=== PATIENT | female | born 1950 | race Caucasian/White ===

== ENCOUNTER → 2018-04-02 07:02 | Outpatient (CLI) | payer OTHER, SELFPAY ==
--- NOTE | 2018-04-02 07:05 | BI_ITS ---
MAMMOGRAPHY - BILATERAL SCREENING REASON FOR EXAM: Female, 67 years old. Routine annual screening examination. PERTINENT HISTORY: Non-contributory. Remote left stereotactic breast biopsy. TECHNIQUE: Digital bilateral breast minh (3D mammographic acquisition) in the CC and MLO projections. 2-D mediolateral oblique (MLO) and craniocaudad (CC) views of both breasts were obtained. CAD: Full Field Digital Mammography with Computer Added Detection was performed. COMPARISON: Comparison is made with prior axial examination dated February 06, 2017. FINDINGS: Breast Composition: There are scattered areas of fibroglandular density. There are no dominant masses or suspicious calcifications. No other significant abnormalities are identified. There has been no significant change since the prior study. BI/SCREENING MAMM (CAD), BILAT IMPRESSION: Stable bilateral screening mammogram. Yearly follow-up mammogram recommended. (A) ASSESSMENT CATEGORY: BIRADS Category 1: Negative. A letter regarding these results will be sent to the patient by the facility within 30 days. Approximately 10% of breast cancers are not detected by mammography. A normal mammogram should not delay biopsy of a clinically suspicious abnormality. [id number] Electronically Signed: Piter Condon MD at 8:49 EDT Tel [phone], Service support ,
== END ==
PROVIDERS: Family Provider Internal Medicine; PCP Internal Medicine; Visit Provider Nurse Practitioner Women's Health
DX: Z12.31 Encounter for screening mammogram for malignant neoplasm of breast (principal)
CPT/HCPCS: 77063; 77067

== ENCOUNTER → 2019-04-27 07:15 | Outpatient (CLI) | payer MEDICARE, SELFPAY ==
--- NOTE | 2019-04-27 07:23 | BI_ITS ---
MAMMOGRAPHY - BILATERAL SCREENING 3-D TOMOSYNTHESIS REASON FOR EXAM: Female, 69 years old. Bilateral Screening 3-D tomosynthesis PERTINENT HISTORY: History of stereotactic biopsies. TECHNIQUE: 2-D mammograms and 3-D Tomosynthesis of the breast (s) were performed. CAD was performed. COMPARISON: 04/02/2018 FINDINGS: The breast composition is composed of scattered fibroglandular density. Scattered benign calcifications are seen. No dense spiculated masses or suspicious microcalcifications are identified. No architectural distortion is identified. There is no skin thickening or retraction. There has been no significant change since the prior study. BI/SCREEN MAMM (CAD) W/CHIQUI BILAT IMPRESSION: No mammographic signs of malignancy. Routine yearly mammograms recommended. ASSESSMENT CATEGORY: BIRADS Category 1: Negative. A letter regarding these results will be sent to the patient by the facility within 30 days. FOLLOW UP RECOMMENDATION: Yearly follow up mammogram recommended. (A) Approximately 10% of breast cancers are not detected by mammography. A normal mammogram should not delay biopsy of a clinically suspicious abnormality. Electronically Signed: Gregorio Dill MD at 8:21 EDT , Service support ,
== END ==
PROVIDERS: Family Provider Internal Medicine; PCP Internal Medicine; Referring Provider Nurse Practitioner Women's Health; Visit Provider Nurse Practitioner Women's Health
DX: Z12.31 Encounter for screening mammogram for malignant neoplasm of breast (principal)
CPT/HCPCS: 77063; 77067

== ENCOUNTER → 2020-05-23 07:04 | Outpatient (CLI) | payer MEDICARE, SELFPAY ==
[2019-06-04 09:22] VITALS: BMI 20.8
--- NOTE | 2020-05-23 07:04 | BI_ITS ---
MAMMOGRAPHY - BILATERAL SCREENING 3-D TOMOSYNTHESIS REASON FOR EXAM: Female, 70 years old. Routine screening PERTINENT HISTORY: BILAT SCREENING - NO FAM HX - LT STEREO BX - BILAT MOLES MARKED. TECHNIQUE: 2-D mammograms and 3-D Tomosynthesis of the breast (s) were performed. CAD was performed. COMPARISON: 04/27/2019 FINDINGS: The breast composition is composed of scattered fibroglandular density. Scattered benign calcifications are seen. No dense spiculated masses or suspicious microcalcifications are identified. No architectural distortion is identified. There is no skin thickening or retraction. There has been no significant change since the prior study. BI/SCREEN MAMM (CAD) W/CHIQUI BILAT IMPRESSION: No mammographic signs of malignancy. Routine yearly mammograms recommended. ASSESSMENT CATEGORY: BIRADS Category 2: Benign. A letter regarding these results will be sent to the patient by the facility within 30 days. FOLLOW UP RECOMMENDATION: Yearly follow up mammogram recommended. (A) Approximately 10% of breast cancers are not detected by mammography. A normal mammogram should not delay biopsy of a clinically suspicious abnormality. Electronically Signed: Gregorio Dill MD at 17:03 EDT , Service support ,
== END ==
PROVIDERS: PCP Internal Medicine; Referring Provider Nurse Practitioner Women's Health; Visit Provider Nurse Practitioner Women's Health
DX: Z12.31 Encounter for screening mammogram for malignant neoplasm of breast (principal)
CPT/HCPCS: 77063; 77067

== ENCOUNTER → 2021-06-28 07:23 | Outpatient (CLI) | payer MEDICARE, SELFPAY ==
--- NOTE | 2021-06-28 07:25 | BI_ITS ---
MAMMOGRAPHY - BILATERAL SCREENING REASON FOR EXAM: Female, 71 years old. Routine annual screening examination. PERTINENT HISTORY: Non-contributory. TECHNIQUE: Digital bilateral breast chiqui (3D mammographic acquisition) in the CC and MLO projections. 2-D mediolateral oblique (MLO) and craniocaudad (CC) views of both breasts were obtained. CAD: Full Field Digital Mammography with Computer Added Detection was performed. COMPARISON: Comparison is made with prior study 05/23/2020 and 04/27/2019. FINDINGS: Breast Composition: There are scattered areas of fibroglandular density. There are no dominant masses or suspicious calcifications. No other significant abnormalities are identified. There has been no significant change since the prior study. BI/SCRN MAMM (CAD)W/CHIQUI BILAT IMPRESSION: Stable bilateral screening mammogram. Yearly follow-up mammogram recommended. (A) ASSESSMENT CATEGORY: BIRADS Category 1: Negative. A letter regarding these results will be sent to the patient by the facility within 30 days. Approximately 10% of breast cancers are not detected by mammography. A normal mammogram should not delay biopsy of a clinically suspicious abnormality. [id number] Electronically Signed: Piter Condon MD at 8:04 EDT , Service support ,
== END ==
PROVIDERS: PCP Internal Medicine; Referring Provider Nurse Practitioner Women's Health; Visit Provider Nurse Practitioner Women's Health
DX: Z12.31 Encounter for screening mammogram for malignant neoplasm of breast (principal)
CPT/HCPCS: 77063; 77067

== ENCOUNTER → 2022-07-01 | Outpatient (CLI) | payer MEDICARE, SELFPAY ==
--- NOTE | 2022-07-01 08:44 | BI_ITS ---
MAMMOGRAPHY - BILATERAL SCREENING REASON FOR EXAM: Female, 72 years old. Routine annual screening examination. PERTINENT HISTORY: Non-contributory. Remote left stereotactic breast biopsy. TECHNIQUE: Digital bilateral breast chiqui (3D mammographic acquisition) in the CC and MLO projections. 2-D mediolateral oblique (MLO) and craniocaudad (CC) views of both breasts were obtained. CAD: Full Field Digital Mammography with Computer Added Detection was performed. COMPARISON: Comparison is made with prior study of 06/28/2021 and 05/23/2020. FINDINGS: Breast Composition: There are scattered areas of fibroglandular density. There are no dominant masses or suspicious calcifications. No other significant abnormalities are identified. There has been no significant change since the prior study. BI/SCRN MAMM (CAD)W/CHIQUI BILAT IMPRESSION: Stable bilateral screening mammogram. Yearly follow-up mammogram recommended. (A) ASSESSMENT CATEGORY: BIRADS Category 1: Negative. A letter regarding these results will be sent to the patient by the facility within 30 days. Approximately 10% of breast cancers are not detected by mammography. A normal mammogram should not delay biopsy of a clinically suspicious abnormality. [id number] Electronically Signed: Piter Condon MD at 9:33 EDT ,
== END | disposition home or self-care (01) ==
PROVIDERS: PCP Internal Medicine; Referring Provider Nurse Practitioner Women's Health; Visit Provider Nurse Practitioner Women's Health
DX: Z12.31 Encounter for screening mammogram for malignant neoplasm of breast (principal)
CPT/HCPCS: 77063; 77067

== ENCOUNTER → 2023-07-07 | Outpatient (CLI) | payer MEDICARE, SELFPAY ==
--- NOTE | 2023-07-07 07:16 | BI_ITS ---
MAMMOGRAPHY - BILATERAL SCREENING REASON FOR EXAM: Female, 73 years old. Routine annual screening examination. PERTINENT HISTORY: Non-contributory. Remote left stereotactic breast biopsy. TECHNIQUE: Digital bilateral breast chiqui (3D mammographic acquisition) in the CC and MLO projections. 2-D mediolateral oblique (MLO) and craniocaudad (CC) views of both breasts were obtained. CAD: Full Field Digital Mammography with Computer Added Detection was performed. COMPARISON: Comparison is made with prior study dated July 01, 2022 and June 28, 2021. FINDINGS: Breast Composition: There are scattered areas of fibroglandular density. There are no dominant masses or suspicious calcifications. No other significant abnormalities are identified. There has been no significant change since the prior study. BI/SCRN MAMM (CAD)W/CHIQUI BILAT IMPRESSION: Stable bilateral screening mammogram. Yearly follow-up mammogram recommended. (A) ASSESSMENT CATEGORY: BIRADS Category 1: Negative. A letter regarding these results will be sent to the patient by the facility within 30 days. Approximately 10% of breast cancers are not detected by mammography. A normal mammogram should not delay biopsy of a clinically suspicious abnormality. [id number] Electronically Signed: Piter Condon MD at 8:33 EDT ,
== END | disposition home or self-care (01) ==
LOC: OPBI 07:12
PROVIDERS: PCP Internal Medicine; Referring Provider Nurse Practitioner Women's Health; Visit Provider Nurse Practitioner Women's Health
DX: Z12.31 Encounter for screening mammogram for malignant neoplasm of breast (principal)
CPT/HCPCS: 77063; 77067

== ENCOUNTER 2024-12-21 09:09 | Day surgery (SDC) | payer MEDICARE, SELFPAY ==
[2024-12-21] VITALS (8 sets, daily range): BP systolic 92–120; BP diastolic 52–74; PULSE 64–91; RESP 16; TEMP 36.6–36.9; O2SAT 98–100; BMI 19.3
--- NOTE | 2024-12-21 10:05 | PCM.PRE.AN2 ---
ASA Classification* ASA Classification ASA Classification: 2 (Hx ovarian cancer, having rectal bleeding. No known cardiac hx, nonsmoker ) Assessment & Plan Anesthesia* Anesthesia Assessment Anesthesia Assessment: Discussed sedation and/or anesthesia options, risks, benefits, and alternatives with patient/parents/legal guardian/POA. Questions invited. The patient/parents/legal guardian/POA seems to understand and agrees to proceed with anesthesia plan. Reviewed the physical assessment, medical history, allergy history and patient home medications list prior to surgery/procedure/anesthetic and documented any changes. Performed airway and anesthesia risk assessments. Anesthesia Type Anesthesia Type: General History Source History Obtained from:: Patient and Chart Anesthesia Focused Assessment* Temperature: 97.8 F Pulse Rate: 91 Blood Pressure: 105/61 Respiratory Rate: 16 Pulse Ox: 100 Oxygen Delivery Method: Room Air Airway Assessment Mouth opens: >3 cm Mallampati Score: II Teeth Condition: Intact Neck Range of motion (ROM): Full ROM Focused Labs Anesthesia Preop lab: CBC WBC 6.6 K/mm3 (4.4-11.0) 09/07/15 08:00 09/07/15 RBC 4.88 M/mm3 (4.2-5.4) 09/07/15 08:00 09/07/15 Hgb 14.4 g/dl (12.0-15.0) 09/07/15 08:00 09/07/15 Hct 43.1 % (37-47) 09/07/15 08:00 09/07/15 Plt Count 231 K/mm3 (150-450) 09/07/15 08:00 09/07/15 CHEMISTRY Potassium 3.7 mmol/L (3.5-5.1) 09/07/15 08:00 09/07/15 Sodium 139 mmol/L (136-145) 09/07/15 08:00 09/07/15 BUN 18 mg/dL (7-18) 09/07/15 08:00 09/07/15 Creatinine 1.03 mg/dL (0.55-1.20) 09/07/15 08:00 09/07/15 Glucose 80 mg/dL (70-110) 09/07/15 08:00 09/07/15 COAG Pre-Assessment Diagnosis/Proposed Procedure Planned Operative Procedure(s): CSCOPE Anesthesia History 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 When Was Last Pacemaker Check QUESTION #4 FULL TEXT: You/Your Family Experience fever (hyperthermia) with Anesthesia Last Oral Intake Last Oral intake: Last Oral Intake NPO since 23:00 12/21/24 09:33 Meds taken in AM with sips of water? 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 Female Yes 12/20/24 11:07 HX of Motion Sickness No 12/20/24 11:07 HX of N/V After Surgery No 12/20/24 11:07 Non-Smoker Yes 12/20/24 11:07 Duration of Surgery greater No 12/20/24 11:07 than 60 minutes Number of Risk Factors 2 12/20/24 11:07 PONV Score Moderate Risk 12/20/24 11:07 Height & Weight Height & Weight: Anesthesia: Height & Weight Height 5 ft 5 in 12/21/24 09:33 Weight: 52.8 kg 12/21/24 09:33 Body Mass Index (BMI) 19.3 12/21/24 09:33 Respiratory Assessment Respiratory Assessment - 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 Has anyone observed you stop No 12/20/24 11:07 breathing during sleep? STOP Results Negative 12/20/24 11:07 QUESTION #5 FULL TEXT : Do you snore loudly (louder than talking or can be heard through closed doors)? 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 Specify any problems Hx of Preganancy in last 3 N/A 12/20/24 11:07 Months Nurse Filling Out Transfusion NBUCHER 12/20/24 11:07 & Questions: Date: 12/20/24 12/20/24 11:07 Time: 11:08 12/20/24 11:07 Patient unable to answer at this time (ie. 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: /Reproductive Hx- landscape maintenance internship Hx Now No 12/20/24 11:07 Gestational Age (in weeks): EDC: Hx Hx Para Hx Section SAB No 12/20/24 11:07 [facility] Medical History (Updated 12/20/24 @ 11:14 by Rachel Loving) History of chemotherapy Wears glasses Cancer Anemia History of IBS Non-smoker Ovarian cancer Blood in stool, nikki Home Medications ?Medication ?Instructions ?Recorded ?Last Taken ?Type loperamide 2 mg capsule 2 mg PO Q1-4H 06/04/19 Unknown History dicyclomine 10 mg capsule 10 mg PO TID PRN Abdominal Pain 09/04/21 Unknown History dexamethasone 4 mg tablet 20 mg PO DAILY PRN CHEMO 12/17/24 Unknown History nutrutional supplement (BELEM FARMS PO 12/17/24 Unknown History STANDARD 1.4) 0.06G-1.4Kcal/mL oral liquid ondansetron 8 mg disintegrating 8 mg PO Q8 PRN nausea/vomiting 12/17/24 Unknown History tablet prochlorperazine maleate 10 mg 10 mg PO BID PRN nausea and 12/17/24 Unknown History tablet (Compazine) vomiting Allergy/AdvReac Type Severity Reaction Status Date / Time No Known Allergies Allergy Verified 12/21/24 09:32 Family History Father CAD (coronary artery disease) Mother No problems noted. Surgical History History of reversal of ileostomy History of resection of small bowel Hx of colonoscopy H/O: hysterectomy Social History adopted: No current occupational status: unemployed Smoking Status: Never smoker alcohol intake: current alcohol intake frequency: holidays/special occasions only substance use type: does not use what type of physical activity do you participate in: walking frequency: 5-6 times per week seatbelt use: always do you feel safe at home: Yes additional social history: Spouse: Cliff Review of Systems (Anesthesia) ROS Narrative System reviewed and no additional complaints, except as documented. Physical Exam Const alert, oriented x3 and average body habitus Resp normal respiratory effort, normal air movement and clear to auscultation bilaterally Cardio regular rate, regular rhythm, no murmurs and diaphoretic
--- NOTE | 2024-12-21 10:05 | PCM.HP.BLA ---
History and Physical Date of Admission: 12/21/24 Date of Service: 12/17/24 MR#: [id number] Acct: [id number] Name: SAL BAUTISTA Rep #: [id number] : 1950 Provider: Dr. Leydi Carmen MD Age/Sex: 74/F Location: [facility] Status: Signed Intake Vital Signs 09/04/2114:32 12/18/2507:51 Height 5 ft 5 in 5 ft 5 in Weight: 122 lb BMI 20.2 BP 105/63 Blood Pressure Location Rt brachial Position Sitting Respiration 18 Pulse 71 Pulse Source Monitor Temp 97.2 F L Temp Source Temporal Pulse Oximetry (%) 98 Oxygen Delivery Method room air Intake Visit Reasons: RECTAL BLEED Chief Complaint: rectal bleed Accompanied by: Is patient in pain?: No Allergies No Known Allergies Allergy (Verified 09/04/21 14:31) Medications ?Medication ?Instructions ?Recorded ?Confirmed ?Type loperamide 2 mg capsule 2 mg PO Q1-4H 06/04/19 09/04/21 History dicyclomine 10 mg capsule 10 mg PO TID PRN Abdominal Pain 09/04/21 History cholecalciferol (vitamin D3) 50 50 mcg PO QDAY 12/17/24 12/17/24 History mcg (2,000 unit) capsule dexamethasone 4 mg tablet 20 mg PO 12/17/24 12/17/24 History nutrutional supplement (BELEM FARMS PO 12/17/24 History STANDARD 1.4) 0.06G-1.4Kcal/mL oral liquid ondansetron 8 mg disintegrating 8 mg PO Q8 PRN nausea/vomiting 12/17/24 12/17/24 History tablet prochlorperazine maleate 10 mg 10 mg PO BID PRN 12/17/24 12/17/24 History tablet (Compazine) Have you fallen in the past year?: No PFSH Medical History (Updated 12/17/24 @ 08:50 by Bushra Wiseman LPN) Ovarian cancer Blood in stool, nikki Surgical History (Updated 12/17/24 @ 08:50 by Bushra Wiseman LPN) History of reversal of ileostomy History of resection of small bowel Hx of colonoscopy H/O: hysterectomy Family History Father CAD (coronary artery disease)Mother No problems noted. Social History adopted: No current occupational status: unemployed Smoking Status: Never smoker alcohol intake: current alcohol intake frequency: holidays/special occasions only substance use type: does not use what type of physical activity do you participate in: walking frequency: 5-6 times per week seatbelt use: always do you feel safe at home: Yes additional social history: Spouse: Cliff VELEZ HPI HPI: 74-year-old female presents for colonoscopy due to bleeding per rectum. Patient states after her surgery in September she did have a bit of diarrhea due to the reversal of the ileostomy and she did notice some bright red blood from her rectum at that time. Patient states she does have bowel movements daily states it has improved over this time but still does occasionally have some blood which will tinged that water of the toilet. Patient denies any abdominal pain or any nausea or vomiting. Patient last colonoscopy was in [address] Hughes. Patient is currently being treated by Dr. Hall for ovarian cancer and will be changing her regimen to include medications that may further exacerbate bleeding so he recommended colonoscopy prior to starting. ROS General General: No weight change, appetite, fatigue, colon cancer, breast cancer or weakness Additional Details: ovarian cancer HEENT HEENT: No difficulty swallowing, eye injury, eye surgery, swollen glands or hoarseness Endo Endocrine: No thyroid disease, diabetes mellitus, thyroid cancer, Hair loss, heat intolerance or cold intolerance Skin Skin: No rash or changing moles Musc Musculoskeletal: No back problems, arthritis, rheumatoid arthritis, gout or joint pain Cardio Cardiovascular: No murmur, pacemaker, heart disease, atrial fibrillation, high blood pressure, heart attack, heart stent, palpitations, shortness of breath with exertion or chest pain Psych Psychiatric: No depression, anxiety or hearing voices Resp Respiratory: No shortness of breath, No sleep apnea, No cough, No COPD, No asthma, No emphysema and No wheezing Gastro Gastrointestinal: No abdominal pain, No nausea or vomiting, No diarrhea, No constipation, Yes blood in stool, No acid reflux, No hemorrhoids, No ulcers, No gallbladder problem and No black,tarry stools [place] Hematologic: No blood thinners, No blood disorders, No bleeding, Yes anemia and No blood clots Neuro Neurologic: No numbness, No tingling and No weakness Exam Const General: cooperative, healthy appearing, comfortable and no acute distress [facility] Head: normocephalic and atraumatic Neck Neck: supple Resp Effort & Inspection: normal respiratory effort Cardio Rate: regular rate GI Inspection: non-distended Palpation: soft and nontender Skin General: no rashes or lesions noted Neuro General: CN's II-XI intact bilaterally Extrem General: normal to inspection Psych Mental Status: mental status grossly normal Attitude: cooperative Assessment and Plan Assessment and Plan (1) Blood in stool, nikki: Status: Acute Plan I have discussed the above with the patient. I have offered the patient colonoscopy for evaluation?plan to schedule for 12/21 to not interfere with patient was planned treatment day of 12/24. I have explained the risks/benefits of the procedure and described the procedure. I have discussed the risks with the patient, including but not limited to: infection, bleeding, perforation of the GI tract requiring emergency surgery, inability to complete the procedure, injury to any internal organs, complications of anesthesia, etc. - the patient understands and agrees to proceed. I have answered all the patient's questions to the patient's satisfaction and the patient has no further questions. The patient has been given instructions for the colon cleansing preparation. 1 day of clears, MiraLAX Dulcolax prep Leydi Carmen M.D. Pager: [phone] [facility] [address] [place] [address], [address] [place] [address] Office: [phone] Coding Level of Care Code Off vis,new,level 3 Diagnoses Blood in stool, nikki K92.1 Clinical Quality Measures Falls Risk Screening/Assistive Devices Have you fallen in the past year?: No 12/17/24 1323 <Electronically signed by Leydi Carmen MD> Date Leydi Carmen MD
--- NOTE | 2024-12-21 11:48 | OP.COLON_ITS ---
Patient Name: Patsy Mcqueen Procedure Date: 12/21/2024 10:40 AM Date of : 1950 Age: 74 Procedure: Colonoscopy Indications: Rectal bleeding Providers: Leydi Carmen MD Referring MD: Charlotte Nielson Medicines: Monitored Anesthesia Care Patient Profile: This is a 74 year old female. Last Colonoscopy: 2016. She is status post sigmoid colectomy and ileostomy reversal within the past six months. Complications: No immediate complications. Procedure: Pre-Anesthesia Assessment: - Prior to the procedure, a History and Physical was performed, and patient medications and allergies were reviewed. The patient's tolerance of previous anesthesia was also reviewed. The risks and benefits of the procedure and the sedation options and risks were discussed with the patient. All questions were answered, and informed consent was obtained. Prior Anticoagulants: The patient has taken no anticoagulant or antiplatelet agents except for aspirin. ASA Grade Assessment: Per anesthesia. After reviewing the risks and benefits, the patient was deemed in satisfactory condition to undergo the procedure. After I obtained informed consent, the scope was passed under direct vision. Throughout the procedure, the patient's blood pressure, pulse, and oxygen saturations were monitored continuously. The pediatric colonoscope was introduced through the anus and advanced to the cecum, identified by the appendiceal orifice, ileocecal valve and palpation. The colonoscopy was performed without difficulty. The patient tolerated the procedure well. The quality of the bowel preparation was good. Scope In: 10:48:17 AM Scope Withdrawal Time 0 hours 33 minutes 33 seconds Scope Out: 11:36:55 AM Total Procedure Duration Time 0 hours 48 minutes 38 seconds Findings: The perianal and digital rectal examinations were normal. There was evidence of a prior end-to-end colo-rectal anastomosis in the rectum. This was patent and was characterized by erythema and friable mucosa. The anastomosis was traversed. Coagulation for hemostasis using argon plasma was successful. Estimated blood loss was minimal. Initially did attempt to clip however this did not work well thus the clips were removed???1 with snare and 1 fell off and APC was used on the friable tissue with good results. The exam was otherwise without abnormality. Impression: - Patent end-to-end colo-rectal anastomosis, characterized by erythema and friable mucosa. Treated with argon plasma coagulation (APC). - The examination was otherwise normal. - No specimens collected. Recommendation: - Discharge patient to home. - Resume previous diet. - Continue present medications. - Repeat colonoscopy depending on overall health at that time. Procedure Code(s): --- Professional --- 83977, Colonoscopy, flexible; with control of bleeding, any method Diagnosis Code(s): --- Professional --- Z98.0, Intestinal bypass and anastomosis status K62.5, Hemorrhage of anus and rectum CPT copyright 2021 [employer]. All rights reserved. The codes documented in this report are preliminary and upon talkback host review may be revised to meet current compliance requirements. MD Leydi Kaba MD 12/21/2024 11:48:07 AM This report has been signed electronically. Number of Addenda: 0 Note Initiated On: 12/21/2024 10:40 AM
--- NOTE | 2024-12-21 11:48 | OP.CCLET_ITS ---
12/21/2024 Charlotte Nielson [address] [place] [address] Re : Colonoscopy procedure for [facility] Dear Dr. Nielson This procedure was performed on Saturday, December 21, 2024. My impressions and recommendations are as follows: Impressions : - Patent end-to-end colo-rectal anastomosis, characterized by erythema and friable mucosa. Treated with argon plasma coagulation (APC). - The examination was otherwise normal. - No specimens collected. Recommendations : - Discharge patient to home. - Resume previous diet. - Continue present medications. - Repeat colonoscopy depending on overall health at that time. My findings are described in the full procedure note, which is enclosed. If I can be of further assistance, please feel free to contact me at Doctor phone number(s): , Work: . Sincerely, MD Leydi Kaba MD 12/21/2024 11:48:07 AM This report has been signed electronically.
--- NOTE | 2024-12-21 14:00 | PCM.POST.ANE ---
Anesthesia: Postop Eval I Current Vital Signs Temperature: 98.5 F Pulse Rate: 82 Blood Pressure: 92/52 Respiratory Rate: 16 Pulse Ox: 99 Assessment Airway patent: Yes Spontaneous unlabored respirations: Yes nausea: No Vomiting: No Anesthesia Complication: No Fluid Hydration Crystalloid volume administer (ml): 30 Total IV fluid infused: 30 Progress Note Anesthesia document: Postop Eval 1 completed: Yes
--- NOTE | 2024-12-21 14:12 | POSTOPAN2_ITS ---
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 Spontaneous unlabored Yes 12/21/24 14:00 [email or web address] respirations Mental status nausea No 12/21/24 14:00 [email or web address] Vomiting No 12/21/24 14:00 [email or web address] Anesthesia Postop Eval I: Fluid Summary Crystalloid volume administer 30 12/21/24 14:00 [email or web address] (ml) Colloids volume administered ( ml) Blood Product volume administered (ml) Total IV fluid infused 30 12/21/24 14:00 [email or web address] Anesthesia Postop Eval I: Summary Notes Anesthesia Complication No 12/21/24 14:00 [email or web address] Anesthesia Complication Comment: Post-operative progress note Anesthesia: Postop Eval II Evaluation Mental status: Awake Pain Level: 0 nausea: No Vomiting: No Complications Anesthesia Complication: No
--- NOTE | 2024-12-21 14:12 | PCM.POSTANE2 ---
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 Spontaneous unlabored Yes 12/21/24 14:00 HOG ROOM [email or web address] respirations Mental status nausea No 12/21/24 14:00 HOG ROOM [email or web address] Vomiting No 12/21/24 14:00 HOG ROOM [email or web address] Anesthesia Postop Eval I: Fluid Summary Crystalloid volume administer 30 12/21/24 14:00 HOG ROOM [email or web address] (ml) Colloids volume administered ( ml) Blood Product volume administered (ml) Total IV fluid infused 30 12/21/24 14:00 HOG ROOM [email or web address] Anesthesia Postop Eval I: Summary Notes Anesthesia Complication No 12/21/24 14:00 HOG ROOM [email or web address] Anesthesia Complication Comment: Post-operative progress note Anesthesia: Postop Eval II Evaluation Mental status: Awake Pain Level: 0 nausea: No Vomiting: No Complications Anesthesia Complication: No
== END 2024-12-21 12:32 | disposition home or self-care (01) ==
LOC: EN 09:10 → AC 09:11
PROVIDERS: PCP Internal Medicine; Referring Provider Internal Medicine; Visit Provider Surgery
PROC: 0DJD8ZZ Inspection of Lower Intestinal Tract, Via Natural or Artificial Opening Endoscopic (ICD-10-PCS; CPT 45378; principal; 2024-12-21 10:25)
DX: K62.5 Hemorrhage of anus and rectum (principal); C56.9 Malignant neoplasm of unspecified ovary; Z90.710 Acquired absence of both cervix and uterus; Z98.0 Intestinal bypass and anastomosis status
CPT/HCPCS: 45382; A4216

== ENCOUNTER 2025-01-10 09:35 | Day surgery (SDC) | payer MEDICARE, SELFPAY ==
[2025-01-10] VITALS (7 sets, daily range): BP systolic 100–129; BP diastolic 61–69; PULSE 64–77; RESP 12–20; TEMP 36.2–36.7; O2SAT 98–99; BMI 19.8
--- NOTE | 2025-01-10 10:24 | PCM.PRE.AN2 ---
ASA Classification* ASA Classification ASA Classification: 2 Assessment & Plan Anesthesia* Anesthesia Assessment Anesthesia Assessment: Discussed sedation and/or anesthesia options, risks, benefits, and alternatives with patient/parents/legal guardian/POA. Questions invited. The patient/parents/legal guardian/POA seems to understand and agrees to proceed with anesthesia plan. Reviewed the physical assessment, medical history, allergy history and patient home medications list prior to surgery/procedure/anesthetic and documented any changes. Performed airway and anesthesia risk assessments. Anesthesia Type Anesthesia Type: MAC Anesthesia Focused Assessment* Temperature: 97.2 F Pulse Rate: 77 Blood Pressure: 115/69 Respiratory Rate: 20 Pulse Ox: 98 Airway Assessment Mouth opens: >3 cm Mallampati Score: II Focused Labs Anesthesia Preop lab: CBC WBC 6.6 K/mm3 (4.4-11.0) 09/07/15 08:00 09/07/15 RBC 4.88 M/mm3 (4.2-5.4) 09/07/15 08:00 09/07/15 Hgb 14.4 g/dl (12.0-15.0) 09/07/15 08:00 09/07/15 Hct 43.1 % (37-47) 09/07/15 08:00 09/07/15 Plt Count 231 K/mm3 (150-450) 09/07/15 08:00 09/07/15 CHEMISTRY Potassium 3.7 mmol/L (3.5-5.1) 09/07/15 08:00 09/07/15 Sodium 139 mmol/L (136-145) 09/07/15 08:00 09/07/15 BUN 18 mg/dL (7-18) 09/07/15 08:00 09/07/15 Creatinine 1.03 mg/dL (0.55-1.20) 09/07/15 08:00 09/07/15 Glucose 80 mg/dL (70-110) 09/07/15 08:00 09/07/15 COAG Pre-Assessment Diagnosis/Proposed Procedure Planned Operative Procedure(s): flex sig Anesthesia History Anesthesia History - clinical pharmacy specialist: Anesthesia History - clinical pharmacy specialist Hx Hospitalization Yes: 09/2024 SURGERY FOR 01/05/25 14:23 CANCER Any Problems With Anesthesia No 01/05/25 14:23 Cholinesterase deficiency No 01/05/25 14:23 You/Your Family Experience No 01/05/25 14:23 fever (hyperthermia) with Relationship Recent Exposure to Contagious No 01/10/25 10:06 Disease Does patient have nerve No 01/05/25 14:23 stimulator Patient instructed to have device shut off --Does patient have Pacemaker No 01/10/25 10:06 or ICD? When Was Last Pacemaker Check QUESTION #4 FULL TEXT: You/Your Family Experience fever (hyperthermia) with Anesthesia Last Oral Intake Last Oral intake: Last Oral Intake NPO since 22:00 01/10/25 10:06 Meds taken in AM with sips of No 01/10/25 10:06 water? 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 - clinical pharmacy specialist: PONV - clinical pharmacy specialist Female Yes 01/05/25 14:23 HX of Motion Sickness No 01/05/25 14:23 HX of N/V After Surgery No 01/05/25 14:23 Non-Smoker Yes 01/05/25 14:23 Duration of Surgery greater No 01/05/25 14:23 than 60 minutes Number of Risk Factors 2 01/05/25 14:23 PONV Score Moderate Risk 01/05/25 14:23 Height & Weight Height & Weight: Anesthesia: Height & Weight Height 5 ft 5 in 01/10/25 10:06 Weight: 54 kg 01/10/25 10:06 Body Mass Index (BMI) 19.8 01/10/25 10:06 Respiratory Assessment Respiratory Assessment - clinical pharmacy specialist: Respiratory Tract Infection Hx - clinical pharmacy specialist Hx Respiratory Tract Infection No 01/05/25 14:23 STOP Sleep Apnea STOP Sleep Apnea - clinical pharmacy specialist: STOP Sleep Apnea - clinical pharmacy specialist Hx Hypertension No 01/05/25 14:23 Hx Sleep Apnea No 01/05/25 14:23 CPAP BIPAP Do you snore loudly (louder No 01/05/25 14:23 than talking or can be heard Do you often feel tired/ No 01/05/25 14:23 fatigued/ sleepy during daytime? Has anyone observed you stop No 01/05/25 14:23 breathing during sleep? STOP Results Negative 01/05/25 14:23 QUESTION #5 FULL TEXT : Do you snore loudly (louder than talking or can be heard through closed doors)? 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 Specify any problems Hx of Preganancy in last 3 N/A 01/05/25 14:23 Months Nurse Filling Out Transfusion NBUCHER 01/05/25 14:23 & Questions: Date: 01/05/25 01/05/25 14:23 Time: 14:23 01/05/25 14:23 Patient unable to answer at this time (ie. confused, unrespo /Reproduction History /Reproductive History - clinical pharmacy specialist: /Reproductive Hx- clinical pharmacy specialist Hx Now Gestational Age (in weeks): EDC: Hx Hx Para Hx Section SAB No 01/05/25 14:23 PFSH Medical History History of chemotherapy Wears glasses Cancer Anemia History of IBS Non-smoker Ovarian cancer Blood in stool, nikki Home Medications ?Medication ?Instructions ?Recorded ?Last Taken ?Type loperamide 2 mg capsule 2 mg PO Q1-4H 06/04/19 Unknown History dicyclomine 10 mg capsule 10 mg PO TID PRN Abdominal Pain 09/04/21 Unknown History dexamethasone 4 mg tablet 20 mg PO DAILY PRN CHEMO 12/17/24 Unknown History ondansetron 8 mg disintegrating 8 mg PO Q8 PRN nausea/vomiting 12/17/24 Unknown History tablet prochlorperazine maleate 10 mg 10 mg PO BID PRN nausea and 12/17/24 Unknown History tablet (Compazine) vomiting Allergy/AdvReac Type Severity Reaction Status Date / Time No Known Allergies Allergy Verified 01/10/25 10:05 Family History Father CAD (coronary artery disease) Mother No problems noted. Surgical History History of reversal of ileostomy History of resection of small bowel Hx of colonoscopy H/O: hysterectomy Social History adopted: No current occupational status: unemployed Smoking Status: Never smoker alcohol intake: current alcohol intake frequency: holidays/special occasions only substance use type: does not use what type of physical activity do you participate in: walking frequency: 5-6 times per week seatbelt use: always do you feel safe at home: Yes additional social history: Spouse: Cliff Review of Systems (Anesthesia) ROS Narrative System reviewed and no additional complaints, except as documented.
--- NOTE | 2025-01-10 11:25 | HP.PCM_ITS ---
History and Physical Date of Admission: 01/10/25 12/21/24 1005 MR#: [id number] Acct: [id number] Name: SAL BAUTISTA Rep #: [id number] : 1950 74 From: Leydi Carmen MD PCP: Dr. Charlotte Nielson MD Status: [facility] Location: [place] [address] History and Physical Date of Admission: 12/21/24 Date of Service: 12/17/24MR#: [id number] Acct: [id number] Name: SAL BAUTISTA Rep #: [id number] : 1950 Provider: Dr. Leydi Carmen MD Age/Sex: 74/F Location: [facility] Status: Signed Intake Vital Signs 09/04/2114:32 12/18/2507:51 Height 5 ft 5 in 5 ft 5 in Weight: 122 lb BMI 20.2 BP 105/63 Blood Pressure Location Rt brachial Position Sitting Respiration 18 Pulse 71 Pulse Source Monitor Temp 97.2 F L Temp Source Temporal Pulse Oximetry (%) 98 Oxygen Delivery Method room air Intake Visit Reasons: RECTAL BLEED Chief Complaint: rectal bleed Accompanied by: Is patient in pain?: No Allergies No Known Allergies Allergy (Verified 09/04/21 14:31) Medications ?Medication ?Instructions ?Recorded ?Confirmed ?Type loperamide 2 mg capsule 2 mg PO Q1-4H 06/04/19 09/04/21 History dicyclomine 10 mg capsule 10 mg PO TID PRN Abdominal Pain 09/04/21 History cholecalciferol (vitamin D3) 50 50 mcg PO QDAY 12/17/24 12/17/24 History mcg (2,000 unit) capsule dexamethasone 4 mg tablet 20 mg PO 12/17/24 12/17/24 History nutrutional supplement (BELEM FARMS PO 12/17/24 History STANDARD 1.4) 0.06G-1.4Kcal/mL oral liquid ondansetron 8 mg disintegrating 8 mg PO Q8 PRN nausea/vomiting 12/17/24 12/17/24 History tablet prochlorperazine maleate 10 mg 10 mg PO BID PRN 12/17/24 12/17/24 Histo ry tablet (Compazine) Have you fallen in the past year?: No PFSH Medical History (Updated 12/17/24 @ 08:50 by Bushra Wiseman LPN) Ovarian cancer Blood in stool, nikki Surgical History (Updated 12/17/24 @ 08:50 by Bushra Wiseman LPN) History of reversal of ileostomy History of resection of small bowel Hx of colonoscopy H/O: hysterectomy Family History Father CAD (coronary artery disease)Mother No problems noted. Social History adopted: No current occupational status: unemployed Smoking Status: Never smoker alcohol intake: current alcohol intake frequency: holidays/special occasions only substance use type: does not use what type of physical activity do you participate in: walking frequency: 5-6 times per week seatbelt use: always do you feel safe at home: Yes additional social history: Spouse: Cliff ROSIE HPI HPI: 74-year-old female presents for colonoscopy due to bleeding per rectum. Patient states after her surgery in September she did have a bit of diarrhea due to the reversal of the ileostomy and she did notice some bright red blood from her rectum at that time. Patient states she does have bowel movements daily states it has improved over this time but still does occasionally have some blood which will tinged that water of the toilet. Patient denies any abdominal pain or any nausea or vomiting. Patient last colonoscopy was in [address] Hughes. Patient is currently being treated by Dr. Hall for ovarian cancer and will be changing her regimen to include medications that may further exacerbate bleeding so he recommended colonoscopy prior to starting. ROS General General: No weight change, appetite, fatigue, colon cancer, breast cancer or weakness Additional Details: ovarian cancer HEENT HEENT: No difficulty swallowing, eye injury, eye surgery, swollen glands or hoarseness Endo Endocrine: No thyroid disease, diabetes mellitus, thyroid cancer, Hair loss, heat intolerance or cold intolerance Skin Skin: No rash or changing moles Musc Musculoskeletal: No back problems, arthritis, rheumatoid arthritis, gout or joint pain Cardio Cardiovascular: No murmur, pacemaker, heart disease, atrial fibrillation, high blood pressure, heart attack, heart stent, palpitations, shortness of breath with exertion or chest pain Psych Psychiatric: No depression, anxiety or hearing voices Resp Respiratory: No shortness of breath, No sleep apnea, No cough, No COPD, No asthma, No emphysema and No wheezing Gastro Gastrointestinal: No abdominal pain, No nausea or vomiting, No diarrhea, No constipation, Yes blood in stool, No acid reflux, No hemorrhoids, No ulcers, No gallbladder problem and No black,tarry stools [place] Hematologic: No blood thinners, No blood disorders, No bleeding, Yes anemia and No blood clots Neuro Neurologic: No numbness, No tingling and No weakness Exam Const General: cooperative, healthy appearing, comfortable and no acute distress [facility] Head: normocephalic and atraumatic Neck Neck: supple Resp Effort & Inspection: normal respiratory effort Cardio Rate: regular rate GI Inspection: non-distended Palpation: soft and nontender Skin General: no rashes or lesions noted Neuro General: CN's II-XI intact bilaterally Extrem General: normal to inspection Psych Mental Status: mental status grossly normal Attitude: cooperative Assessment and Plan Assessment and Plan (1) Blood in stool, nikki: Status: Acute Plan I have discussed the above with the patient. I have offered the patient colonoscopy for evaluation?plan to schedule for 12/21 to not interfere with patient was planned treatment day of 12/24. I have explained the risks/benefits of the procedure and described the procedure. I have discussed the risks with the patient, including but not limited to: infection, bleeding, perforation of the GI tract requiring emergency surgery, inability to complete the procedure, injury to any internal organs, complications of anesthesia, etc. - the patient understands and agrees to proceed. I have answered all the patient's questions to the patient's satisfaction and the patient has no further questions. The patient has been given instructions for the colon cleansing preparation. 1 day of clears, MiraLAX Dulcolax prep Leydi Carmen M.D. Pager: [phone] [facility] [address] [place] [address], [facility], [address] [place] [id number] Office: [phone] Coding Level of Care Code Off vis,new,level 3 Diagnoses Blood in stool, nikki K92.1 Clinical Quality Measures Falls Risk Screening/Assistive Devices Have you fallen in the past year?: No 12/17/24 1323 <Electronically signed by Leydi Carmen MD> Date Leydi Carmen MD 12/21/24 1006 <Electronically signed by Leydi Carmen MD> Cosigner Signature (if applicable): CC: Dr. Charlotte Nielson MD; Dr. Leydi Carmen MD~ Signed ADDENDUM by Dr. Leydi Carmen MD on 12/21/24 at 1037 Addendum I have examined the patient and the H&P has been reviewed. There are no clinical changes since date of exam. Patient denies any bleeding with the prep. 12/21/24 1037<Electronically signed by Leydi Carmen MD> Cosigner Signature (if applicable): cc: Dr. Charlotte Nielson MD; Dr. Leydi Carmen MD ~* Signed
--- NOTE | 2025-01-10 13:01 | PCM.POST.ANE ---
Anesthesia: Postop Eval I Current Vital Signs Temperature: 97.1 F Pulse Rate: 64 Blood Pressure: 129/67 Respiratory Rate: 16 Pulse Ox: 99 Oxygen Delivery Method: Room Air Assessment Airway patent: Yes Spontaneous unlabored respirations: Yes Mental status: Asleep nausea: No Vomiting: No Anesthesia Complication: No Fluid Hydration Crystalloid volume administer (ml): 50 Total IV fluid infused: 50 Progress Note Anesthesia document: Postop Eval 1 completed: Yes
--- NOTE | 2025-01-10 13:04 | OP.CCLET_ITS ---
01/10/2025 Charlotte Nielson [address] [place] [address] Re : Flexible Sigmoidoscopy procedure for [facility] Dear Dr. Nielson This procedure was performed on Friday, January 10, 2025. My impressions and recommendations are as follows: Impressions : - No specimens collected. Recommendations : - Discharge patient to home. My findings are described in the full procedure note, which is enclosed. If I can be of further assistance, please feel free to contact me at Doctor phone number(s): , Work: . Sincerely, MD Leydi Kaba MD 01/10/2025 1:04:25 PM This report has been signed electronically.
--- NOTE | 2025-01-10 13:04 | OP.FLEXSIG_ITS ---
Patient Name: Patsy Mcqueen Procedure Date: 01/10/2025 12:17 PM Date of : 1950 Age: 74 Procedure: Flexible Sigmoidoscopy Indications: Gastrointestinal occult blood loss Providers: Leydi Carmen MD Referring MD: Charlotte Nielson Medicines: Monitored Anesthesia Care Patient Profile: This is a 74 year old female. Last Colonoscopy: within the past month. Complications: No immediate complications. Procedure: Pre-Anesthesia Assessment: - Prior to the procedure, a History and Physical was performed, and patient medications and allergies were reviewed. The patient's tolerance of previous anesthesia was also reviewed. The risks and benefits of the procedure and the sedation options and risks were discussed with the patient. All questions were answered, and informed consent was obtained. Prior Anticoagulants: The patient has taken no anticoagulant or antiplatelet agents. ASA Grade Assessment: Per anesthesia. After reviewing the risks and benefits, the patient was deemed in satisfactory condition to undergo the procedure. After obtaining informed consent, the endoscope was passed under direct vision. Throughout the procedure, the patient's blood pressure, pulse, and oxygen saturations were monitored continuously. The colonoscope was introduced through the anus and advanced to the descending colon. Scope In: 12:33:06 PM Scope Out: 12:48:59 PM Total Procedure Duration Time 0 hours 15 minutes 53 seconds Findings: Descending colon rectal anastomosis with some friable tissue. Coagulation for hemostasis using argon plasma was successful. Impression: - No specimens collected. Recommendation: - Discharge patient to home. Procedure Code(s): --- Professional --- 05896, PT, Sigmoidoscopy, flexible; with control of bleeding, any method Diagnosis Code(s): --- Professional --- R19.5, Other fecal abnormalities CPT copyright 2021 [employer]. All rights reserved. The codes documented in this report are preliminary and upon helpdesk specialist review may be revised to meet current compliance requirements. MD Leydi Kaba MD 01/10/2025 1:04:25 PM This report has been signed electronically. Number of Addenda: 0 Note Initiated On: 01/10/2025 12:17 PM
--- NOTE | 2025-01-10 13:58 | PCM.POSTANE2 ---
Anesthesia Postop Eval I Sum Postop Eval Completion status Anesthesia document: Postop Eval 1 completed: Yes Anesthesia Postop Eval I Summary Anesthesia Postop Eval I Summary: Anesthesia Postop Eval I: Assessment Summary Airway patent Yes 01/10/25 13:02 [email or web address] Spontaneous unlabored Yes 01/10/25 13:02 [email or web address] respirations Mental status Asleep 01/10/25 13:02 [email or web address] nausea No 01/10/25 13:02 [email or web address] Vomiting No 01/10/25 13:02 [email or web address] Anesthesia Postop Eval I: Fluid Summary Crystalloid volume administer 50 01/10/25 13:02 [email or web address] (ml) Colloids volume administered ( ml) Blood Product volume administered (ml) Total IV fluid infused 50 01/10/25 13:02 [email or web address] Anesthesia Postop Eval I: Summary Notes Anesthesia Complication No 01/10/25 13:02 [email or web address] Anesthesia Complication Comment: Post-operative progress note Anesthesia: Postop Eval II Evaluation Mental status: Awake Pain Level: 0 nausea: No Vomiting: No
== END 2025-01-10 13:33 | disposition home or self-care (01) ==
LOC: EN 09:36 → AC 09:37
PROVIDERS: PCP Internal Medicine; Referring Provider Internal Medicine; Visit Provider Surgery
PROC: 0DJD8ZZ Inspection of Lower Intestinal Tract, Via Natural or Artificial Opening Endoscopic (ICD-10-PCS; CPT 45330; principal; 2025-01-10 10:40)
DX: K62.5 Hemorrhage of anus and rectum (principal); Z98.0 Intestinal bypass and anastomosis status
CPT/HCPCS: 45334; C1889; A4216; J2405

== ENCOUNTER 2025-04-26 13:21 | Day surgery (SDC) | payer MEDICARE, SELFPAY ==
--- NOTE | 2025-04-22 15:12 | PAT.ANESEVAL ---
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 When Was Last Pacemaker Check QUESTION #4 FULL TEXT: You/Your Family Experience fever (hyperthermia) with Anesthesia Last Oral Intake Last Oral intake: Last Oral Intake NPO since Meds taken in AM with sips of water? 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 - geodetic survey director: PONV - geodetic survey director Female Yes 04/22/25 14:45 HX of Motion Sickness No 04/22/25 14:45 HX of N/V After Surgery No 04/22/25 14:45 Non-Smoker Yes 04/22/25 14:45 Duration of Surgery greater No 04/22/25 14:45 than 60 minutes Number of Risk Factors 2 04/22/25 14:45 PONV Score Moderate Risk 04/22/25 14:45 Height & Weight Height & Weight: Anesthesia: Height & Weight Height 5 ft 5 in 01/10/25 10:06 Respiratory Assessment Respiratory Assessment - geodetic survey director: Respiratory Tract Infection Hx - geodetic survey director Hx Respiratory Tract Infection No 04/22/25 14:45 STOP Sleep Apnea STOP Sleep Apnea - geodetic survey director: STOP Sleep Apnea - geodetic survey director Hx Hypertension No 04/22/25 14:45 Hx Sleep Apnea No 04/22/25 14:45 CPAP BIPAP Do you snore loudly (louder No 04/22/25 14:45 than talking or can be heard Do you often feel tired/ No 04/22/25 14:45 fatigued/ sleepy during daytime? Has anyone observed you stop No 04/22/25 14:45 breathing during sleep? STOP Results Negative 04/22/25 14:45 QUESTION #5 FULL TEXT : Do you snore loudly (louder than talking or can be heard through closed doors)? Tobacco Use History Tobacco Use History - geodetic survey director: Tobacco Use History - geodetic survey director Tobacco Use Smoking Status Never smoker 04/22/25 14:45 Hx Tobacco Use No 04/22/25 14:45 Years Smoking Packs Smoked per Day Smoking Cessation Date was within the last 15 years Hx Smoking Cessation Date Hx Smoking Cessation Counseling Hematologic Medial History Hematologic Hx - geodetic survey director: Hematologic Medical Hx - property and supply officer Hx of Blood Transfusion Yes 04/22/25 14:45 Hx of Transfusion in last 3 No 04/22/25 14:45 Months Date of Last Transfusion (if within last 3 months) Ever experience any problems No 04/22/25 14:45 with transfusion(s)? Specify any problems Hx of Preganancy in last 3 No 04/22/25 14:45 Months Nurse Filling Out Transfusion MGRIFFITH 04/22/25 14:45 & Questions: Date: 04/22/25 04/22/25 14:45 Time: 14:48 04/22/25 14:45 Patient unable to answer at this time (ie. confused, unrespo /Reproduction History /Reproductive History - geodetic survey director: /Reproductive Hx- geodetic survey director Hx Now Gestational Age (in weeks): EDC: Hx Hx Para Hx Section SAB No 04/22/25 14:45 PFSH Medical History (Updated 04/22/25 @ 14:57 by Gracie Dimas) Alcohol use Arthritis History of flexible sigmoidoscopy History of chemotherapy Wears glasses Cancer Anemia History of IBS Non-smoker Ovarian cancer Blood in stool, nikki Home Medications ?Medication ?Instructions ?Recorded ?Last Taken ?Type loperamide 2 mg capsule 2 mg PO Q1-4H PRN loose stool 06/04/19 Unknown History dicyclomine 10 mg capsule 10 mg PO TID PRN Abdominal Pain 09/04/21 Unknown History ondansetron 8 mg disintegrating 8 mg PO Q8 PRN nausea/vomiting 12/17/24 Unknown History tablet prochlorperazine maleate 10 mg 10 mg PO BID PRN nausea and 12/17/24 Unknown History tablet (Compazine) vomiting Allergy/AdvReac Type Severity Reaction Status Date / Time No Known Allergies Allergy Verified 04/22/25 14:41 Family History Father CAD (coronary artery disease) Mother No problems noted. Surgical History (Updated 03/01/25 @ 10:17 by KIRAN Hernández) History of reversal of ileostomy History of resection of small bowel Hx of colonoscopy H/O: hysterectomy Social History adopted: No current occupational status: unemployed Smoking Status: Never smoker alcohol intake: current alcohol intake frequency: holidays/special occasions only substance use type: does not use what type of physical activity do you participate in: walking frequency: 5-6 times per week seatbelt use: always do you feel safe at home: Yes additional social history: Spouse: Cliff Audit: Pertinent Findings Pertinent Findings Additional pertinent findings: Decreased platelets by history. Last check on April 20, 2025 was 42,000. Patient will have recheck done on the and bring us the results on day of surgery. Recommendation Anesthesia Recommendation Anesthesia recommendation: F/U recommended (Check the repeat platelets from April 25, 2025.)
[2025-04-26] VITALS (7 sets, daily range): BP systolic 103–110; BP diastolic 69–75; PULSE 67–85; RESP 16–18; TEMP 36.3–37.1; O2SAT 99–100; BMI 20.5
[2025-04-26] MEDS: Lactated Ringers 1,000 ML 15 ML IV (13:54)
--- NOTE | 2025-04-26 14:12 | PCM.PRE.AN2 ---
ASA Classification* ASA Classification ASA Classification: 3 Assessment & Plan Anesthesia* Anesthesia Assessment Anesthesia Assessment: Discussed sedation and/or anesthesia options, risks, benefits, and alternatives with patient/parents/legal guardian/POA. Questions invited. The patient/parents/legal guardian/POA seems to understand and agrees to proceed with anesthesia plan. Reviewed the physical assessment, medical history, allergy history and patient home medications list prior to surgery/procedure/anesthetic and documented any changes. Performed airway and anesthesia risk assessments. Anesthesia Type Anesthesia Type: MAC History Source History Obtained from:: Patient and Chart Anesthesia Focused Assessment* Temperature: 97.4 F Pulse Rate: 85 Blood Pressure: 110/69 Respiratory Rate: 18 Pulse Ox: 100 Oxygen Delivery Method: Room Air Airway Assessment Mouth opens: >3 cm Mallampati Score: II Teeth Condition: Intact Labs Anesthesia Preop lab: CBC WBC 6.6 K/mm3 (4.4-11.0) 09/07/15 08:00 09/07/15 RBC 4.88 M/mm3 (4.2-5.4) 09/07/15 08:00 09/07/15 Hgb 14.4 g/dl (12.0-15.0) 09/07/15 08:00 09/07/15 Hct 43.1 % (37-47) 09/07/15 08:00 09/07/15 Plt Count 231 K/mm3 (150-450) 09/07/15 08:00 09/07/15 CHEMISTRY Potassium 3.7 mmol/L (3.5-5.1) 09/07/15 08:00 09/07/15 Sodium 139 mmol/L (136-145) 09/07/15 08:00 09/07/15 BUN 18 mg/dL (7-18) 09/07/15 08:00 09/07/15 Creatinine 1.03 mg/dL (0.55-1.20) 09/07/15 08:00 09/07/15 Glucose 80 mg/dL (70-110) 09/07/15 08:00 09/07/15 COAG Pre-Assessment Diagnosis/Proposed Procedure Planned Operative Procedure(s): COLONOSCOPY Anesthesia History 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 When Was Last Pacemaker Check QUESTION #4 FULL TEXT: You/Your Family Experience fever (hyperthermia) with Anesthesia Any additional information?: No Last Oral Intake Last Oral intake: Last Oral Intake NPO since 11:00 04/26/25 13:45 Meds taken in AM with sips of No 04/26/25 13:45 water? 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 Female Yes 04/22/25 14:45 HX of Motion Sickness No 04/22/25 14:45 HX of N/V After Surgery No 04/22/25 14:45 Non-Smoker Yes 04/22/25 14:45 Duration of Surgery greater No 04/22/25 14:45 than 60 minutes Number of Risk Factors 2 04/22/25 14:45 PONV Score Moderate Risk 04/22/25 14:45 Any additional information?: No Height & Weight Height & Weight: Anesthesia: Height & Weight Height 5 ft 5 in 04/26/25 13:45 Weight: 55.9 kg 04/26/25 13:45 Body Mass Index (BMI) 20.5 04/26/25 13:45 Respiratory Assessment Respiratory Assessment - carbon capture power plant operator: Respiratory Tract Infection Hx - carbon capture power plant operator Hx Respiratory Tract Infection No 04/22/25 14:45 STOP Sleep Apnea STOP Sleep Apnea - carbon capture power plant operator: STOP Sleep Apnea - carbon capture power plant operator Hx Hypertension No 04/22/25 14:45 Hx Sleep Apnea No 04/22/25 14:45 CPAP BIPAP Do you snore loudly (louder No 04/22/25 14:45 than talking or can be heard Do you often feel tired/ No 04/22/25 14:45 fatigued/ sleepy during daytime? Has anyone observed you stop No 04/22/25 14:45 breathing during sleep? STOP Results Negative 04/22/25 14:45 QUESTION #5 FULL TEXT : Do you snore loudly (louder than talking or can be heard through closed doors)? 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 Specify any problems Hx of Preganancy in last 3 No 04/22/25 14:45 Months Nurse Filling Out Transfusion MGRIEUSEBIOITH 04/22/25 14:45 & Questions: Date: 04/22/25 04/22/25 14:45 Time: 14:48 04/22/25 14:45 Patient unable to answer at this time (ie. 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 capture power plant operator: /Reproductive Hx- carbon capture power plant operator Hx Now Gestational Age (in weeks): EDC: Hx Hx Para Hx Section SAB No 04/22/25 14:45 Active Medications Active Medications: Current Medications Generic Name Dose Route Start Last Admin Trade Name Freq PRN Reason Stop Dose Admin Lactated Ringer's 1,000 mls @ 15 mls/hr 04/26/25 13:30 04/26/25 13:54 IV 15 mls/hr .Q48H GEREMIAS Administration PFSH Medical History (Updated 04/22/25 @ 14:57 by Gracie Dimas) Alcohol use Arthritis History of flexible sigmoidoscopy History of chemotherapy Wears glasses Cancer Anemia History of IBS Non-smoker Ovarian cancer Blood in stool, nikki Home Medications ?Medication ?Instructions ?Recorded ?Last Taken ?Type loperamide 2 mg capsule 2 mg PO Q1-4H PRN loose stool 06/04/19 Unknown History dicyclomine 10 mg capsule 10 mg PO TID PRN Abdominal Pain 09/04/21 Unknown History ondansetron 8 mg disintegrating 8 mg PO Q8 PRN nausea/vomiting 12/17/24 Unknown History tablet prochlorperazine maleate 10 mg 10 mg PO BID PRN nausea and 12/17/24 Unknown History tablet (Compazine) vomiting Allergy/AdvReac Type Severity Reaction Status Date / Time No Known Allergies Allergy Verified 04/26/25 13:43 Family History Father CAD (coronary artery disease) Mother No problems noted. Surgical History (Updated 03/01/25 @ 10:17 by Elba Ahumada NP-C) History of reversal of ileostomy History of resection of small bowel Hx of colonoscopy H/O: hysterectomy Social History adopted: No current occupational status: unemployed Smoking Status: Never smoker alcohol intake: current alcohol intake frequency: holidays/special occasions only substance use type: does not use what type of physical activity do you participate in: walking frequency: 5-6 times per week seatbelt use: always do you feel safe at home: Yes additional social history: Spouse: Cliff Review of Systems (Anesthesia) ROS Narrative System reviewed and no additional complaints, except as documented.
--- NOTE | 2025-04-26 14:15 | COLBX_PTH ---
PATIENT: SAL BAUTISTA LOC: EN U#:[id number] AGE/SX: 75/F ROOM: RE04/26/[address]: Dr. Ankur Colon DO : 1950 BED: DIS: 04/26/2025 SPEC #: [id number] RECD: 04/26/25 17:44 STATUS: DANNI REQ #: [id number] MIRIAN: 04/26/25 14:[address]: Ankur Colon DEPT: SURGICAL PATHOLOGY RECD BY: Maged Ricketts ENTERED: 04/27/25 10:43 SP TYPE: COLON BX OTHR DR: Dr. Charlotte Nielson MD Tissues: A - Gastric mucous membrane Procedures: Surgery Specimen Level IV HEADER OPERATION: Colonoscopy with biopsy and gold probe to anastomosis site PRE-OP DIAGNOSIS: History of reversal of ileostomy, blood in stool, nikki TISSUE SUBMITTED: A- Anastomosis site biopsy MICROSCOPIC DIAGNOSIS A. Anastomosis, site not specified, biopsy: - Fragments of colonic mucosa with active chronic inflammation and moderate crypt architectural change. - Negative for dysplasia/malignancy. MICROSCOPIC DESCRIPTION Slides are reviewed. GROSS DESCRIPTION A. Received in fixative is one container labeled with the patient's name and designated Anastomosis site biopsy. The specimen consists of multiple irregular fragments of light [place] soft tissue that in aggregate measure 0.1 to 0.4 cm. The specimen is totally submitted in one cassette. [place] 04/27/2025 CPT:47450
--- NOTE | 2025-04-26 14:15 | PCM.HP.STD ---
[facility] - General General Date of Admission: 04/26/25 Date of Service: 04/26/25 Chief Complaint: Rectal bleeding [facility] Narrative SAL BAUTISTA, is a 75 F who presents with the chief complaint: rectal bleed She is recovering from ovarian cancer, a patient of . During her original abdominal surgery for tumor removal, she is unsure of exact date, the surgeon had placed an ileostomy due to friable intestinal tissue witnessed from possible cancer involvement in the bowel. She reports that she began to experience dark bloody stools and had referred her to for an investigative colonoscopy and then repeat sigmoidoscopy. referred her to for additional treatment options. She reports having a long history of IBS with mostly diarrhea and she relates some nausea and vomiting with it. She states that quite a bit of her abdominal complaints from IBS ended up being related to her ovarian cancer diagnosis. She denies difficulty chewing and swallowing, cough, throat clearing, nausea, heartburn, reflux, emesis, abdominal bloating, constipation, diarrhea, and hematochezia. She states that her original cancer doctor has me on 1/2 dosing of Miralax daily to keep things soft and moving. 3.25 Colonoscopy: Patent end-to-end colo-rectal anastomosis w/erythema and friable tissue; treated w/APC after failed clip applications. 4..25 Sigmoidoscopy: Descending colon rectal anastomosis with some friable tissue. Coagulation for hemostasis using argon plasma was successful. [facility] Medical History Alcohol use Arthritis History of flexible sigmoidoscopy History of chemotherapy Wears glasses Cancer Anemia History of IBS Non-smoker Ovarian cancer Blood in stool, nikki Home Medications ?Medication ?Instructions ?Recorded ?Last Taken ?Type loperamide 2 mg capsule 2 mg PO Q1-4H PRN loose stool 06/04/19 Unknown History dicyclomine 10 mg capsule 10 mg PO TID PRN Abdominal Pain 09/04/21 Unknown History ondansetron 8 mg disintegrating 8 mg PO Q8 PRN nausea/vomiting 12/17/24 Unknown History tablet prochlorperazine maleate 10 mg 10 mg PO BID PRN nausea and 12/17/24 Unknown History tablet (Compazine) vomiting Allergy/AdvReac Type Severity Reaction Status Date / Time No Known Allergies Allergy Verified 04/26/25 13:43 Family History Father CAD (coronary artery disease) Mother No problems noted. Surgical History History of reversal of ileostomy History of resection of small bowel Hx of colonoscopy H/O: hysterectomy Social History adopted: No current occupational status: unemployed Smoking Status: Never smoker alcohol intake: current alcohol intake frequency: holidays/special occasions only substance use type: does not use what type of physical activity do you participate in: walking frequency: 5-6 times per week seatbelt use: always do you feel safe at home: Yes additional social history: Spouse: Cliff BERMUDEZ Constitutional Constitutional: Denies fatigue, fever(s), poor appetite, weight gain or weight loss Gastrointestinal Gastrointestinal: Denies belching, bloating, change in bowel habits, change in stool character, chewing difficulty, coffee ground emesis, constipation, cramping, diarrhea, dyspepsia, dysphagia, early satiety, excessive flatus, fecal incontinence, heartburn, hematemesis, hematochezia, hemorrhoids, loose stools, melena, nausea, odynophagia, rectal bleeding, tenesmus, vomiting or weight changes Vital Signs Vital Signs Vital Signs: 04/26/25 13:45 04/26/25 13:45 04/26/25 14:13 Temperature 97.4 F L 97.4 F L Temperature Source Temporal Pulse Rate 85 85 Respiratory Rate 18 18 Respiratory Pattern Normal Blood Pressure 110/69 110/69 Blood Pressure Mean 82 Blood Pressure Source Monitor Blood Pressure Position Semi-Fowlers Blood Pressure Location Right Arm Pulse Ox 100 100 Oxygen Delivery Method Room Air Weight Weight: 123 lb 3.814 oz Body Mass Index (BMI) 20.5 Physical Exam Const alert, oriented x3 and average body habitus Resp normal respiratory effort, normal air movement and clear to auscultation bilaterally Cardio regular rate, regular rhythm, no murmurs and diaphoretic Assessment & Plan Assessment/Plan (1) History of reversal of ileostomy: (2) Blood in stool, nikki: PLAN: Assessment and Plan Assessment and Plan (1) Melena: Status: Acute (2) History of reversal of ileostomy: Status: Acute Plan SAL BAUTISTA, is a 74 F who presents to the office today for establishment with [facility] regarding melena. Discussed care plan with her and her . Will review information with . Encourage them to schedule a colonoscopy date to hold it. reviewed low FODMAP diet for IBS schedule colonoscopy office FU with results
--- NOTE | 2025-04-26 15:00 | OP.CCLET_ITS ---
04/26/2025 Charlotte Nielson [address] [place] [address] Re : Colonoscopy procedure for [facility] Dear Dr. Nielson This procedure was performed on Saturday, April 26, 2025. My impressions and recommendations are as follows: Impressions : - Patent end-to-side colo-colonic anastomosis, characterized by ulceration. Biopsied. Treated with a heater probe. - The examination was otherwise normal. Recommendations : - Discharge patient to home. - Resume previous diet. - Continue present medications. - Await pathology results. - Repeat colonoscopy in 5 years for surveillance. My findings are described in the full procedure note, which is enclosed. If I can be of further assistance, please feel free to contact me at . Sincerely, Ankur Colon, 04/26/2025 3:00:27 PM This report has been signed electronically.
--- NOTE | 2025-04-26 15:00 | OP.COLON_ITS ---
Patient Name: Patsy Mcqueen Procedure Date: 04/26/2025 2:19 PM Date of : 1950 Age: 75 Procedure: Colonoscopy Indications: Hematochezia Providers: Ankur Colon DO Referring MD: Charlotte Nielson Medicines: Monitored Anesthesia Care Patient Profile: This is a 75 year old female. Refer to note in patient chart for documentation of history and physical. Last Colonoscopy: within the past year. Complications: No immediate complications. Procedure: Pre-Anesthesia Assessment: - Prior to the procedure, a History and Physical was performed, and patient medications and allergies were reviewed. The patient is competent. The risks and benefits of the procedure and the sedation options and risks were discussed with the patient. All questions were answered and informed consent was obtained. Patient identification and proposed procedure were verified by the physician in the pre-procedure area. Mental Status Examination: alert and oriented. Airway Examination: normal oropharyngeal airway and neck mobility. Respiratory Examination: clear to auscultation. CV Examination: normal. ASA Grade Assessment: II - A patient with mild systemic disease. After reviewing the risks and benefits, the patient was deemed in satisfactory condition to undergo the procedure. The anesthesia plan was to use monitored anesthesia care (MAC). Immediately prior to administration of medications, the patient was re-assessed for adequacy to receive sedatives. The heart rate, respiratory rate, oxygen saturations, blood pressure, adequacy of pulmonary ventilation, and response to care were monitored throughout the procedure. The physical status of the patient was re-assessed after the procedure. After I obtained informed consent, the scope was passed under direct vision. Throughout the procedure, the patient's blood pressure, pulse, and oxygen saturations were monitored continuously. The Colonoscope was introduced through the anus and advanced to the terminal ileum. The colonoscopy was performed without difficulty. The patient tolerated the procedure well. The quality of the bowel preparation was adequate. The terminal ileum, ileocecal valve, appendiceal orifice, and rectum were photographed. Scope In: 2:32:22 PM Scope Withdrawal Time 0 hours 13 minutes 28 seconds Scope Out: 2:52:49 PM Total Procedure Duration Time 0 hours 20 minutes 27 seconds Findings: The perianal and digital rectal examinations were normal. There was evidence of a prior end-to-side colo-colonic anastomosis in the recto-sigmoid colon. This was patent and was characterized by ulceration. The anastomosis was traversed. This was biopsied with a cold forceps for histology. Verification of patient identification for the specimen was done. Estimated blood loss was minimal. Coagulation for hemostasis using heater probe was successful. Estimated blood loss was minimal. The exam was otherwise without abnormality. A benign-appearing, intrinsic mild stenosis measuring 3 cm (in length) x 7 mm (inner diameter) was found in the sigmoid colon and was traversed. Biopsies were taken with a cold forceps for histology. Verification of patient identification for the specimen was done. Estimated blood loss was minimal. Impression: - Patent end-to-side colo-colonic anastomosis, characterized by ulceration. Biopsied. Treated with a heater probe. - The examination was otherwise normal. Recommendation: - Discharge patient to home. - Resume previous diet. - Continue present medications. - Await pathology results. - Repeat colonoscopy in 5 years for surveillance. Procedure Code(s): --- Professional --- 59164, 59, Colonoscopy, flexible; with control of bleeding, any method 62916, Colonoscopy, flexible; with biopsy, single or multiple CPT copyright 2021 [employer]. All rights reserved. The codes documented in this report are preliminary and upon hcc coders review may be revised to meet current compliance requirements. Ankur Colon DO 04/26/2025 3:00:27 PM This report has been signed electronically. Number of Addenda: 0 Note Initiated On: 04/26/2025 2:19 PM
--- NOTE | 2025-04-26 15:02 | PCM.POST.ANE ---
Anesthesia: Postop Eval I Current Vital Signs Temperature: 98.4 F Pulse Rate: 78 Blood Pressure: 106/70 Respiratory Rate: 16 Pulse Ox: 100 Oxygen Delivery Method: Room Air Assessment Airway patent: Yes Spontaneous unlabored respirations: Yes Mental status: Asleep nausea: No Vomiting: No Anesthesia Complication: No Fluid Hydration Crystalloid volume administer (ml): 500 Total IV fluid infused: 500 Progress Note Anesthesia document: Postop Eval 1 completed: Yes
--- NOTE | 2025-04-26 18:07 | PCM.POSTANE2 ---
Anesthesia Postop Eval I Sum Postop Eval Completion status Anesthesia document: Postop Eval 1 completed: Yes Anesthesia Postop Eval I Summary Anesthesia Postop Eval I Summary: Anesthesia Postop Eval I: Assessment Summary Airway patent Yes 04/26/25 15:02 [email or web address] Spontaneous unlabored Yes 04/26/25 15:02 [email or web address] respirations Mental status Asleep 04/26/25 15:02 [email or web address] nausea No 04/26/25 15:02 [email or web address] Vomiting No 04/26/25 15:02 [email or web address] Anesthesia Postop Eval I: Fluid Summary Crystalloid volume administer 500 04/26/25 15:02 [email or web address] (ml) Colloids volume administered ( ml) Blood Product volume administered (ml) Total IV fluid infused 500 04/26/25 15:02 [email or web address] Anesthesia Postop Eval I: Summary Notes Anesthesia Complication No 04/26/25 15:02 [email or web address] Anesthesia Complication Comment: Post-operative progress note Anesthesia: Postop Eval II Evaluation Mental status: Awake Pain Level: 0 nausea: No Vomiting: No Progress Note Post-operative progress note: Meets discharge criteria Complications Anesthesia Complication: No
--- OUTSIDE RECORDS SUMMARY | 2025-04-26 20:53 | XMS RPT_ITS | CCD ---
Author Organization [facility] Care Team Providers Care B And B Gang Worker Name Role Phone Romel Michelle MD Primary Care Provider Romel Michelle MD Primary Care Provider Fermin CHASE, Crystal Unavailable Provider , Bria Unavailable Unavailable PHYSICIAN, NONE Attending Unavailable PHYSICIAN, NONE Primary Care Unavailable Ashley OCASIO, Fredis Barrera Unavailable Ashley OCASIO, Fredis Barrera Unavailable Bria Kelly MD Unavailable Unavailable Nile Hall DO Unavailable Alta RN, Yulia Unavailable Unavailable Margret RN, Jason Unavailable Margret RN, Jason Unavailable [place] CONTESTANT COORDINATOR.STORE HOST, Rukhsana Unavailable Sharyn CONTESTANT COORDINATOR.PHOTOGRAPHER LITHOGRAPHIC, Cathy Unavailable Zain RN, Kendy Unavailable Sharyn CONTESTANT COORDINATOR.PHOTOGRAPHER LITHOGRAPHIC, Cathy Devi Unavailable Sharyn CONTESTANT COORDINATOR.DELFINO, Cathy Unavailable Dr. Romel Michelle MD Primary Care Provider Dr. Romel Michelle MD Referring Provider Dr. Leydi Carmen MD Attending Provider [phone] Dr. Nile Hall DO Other Provider Dr. Leydi Carmen MD Other Provider Sharyn CONTESTANT COORDINATOR.PHOTOGRAPHER LITHOGRAPHIC, Cathy Unavailable Elba Pickett Attending Provider [place]agua CONTESTANT COORDINATOR.STORE HOST, Rukhsana Unavailable Talampas, Romel D Referring Unavailable Talampas, Romel D Primary Care Unavailable Robotham, Leydi Consulting Unavailable Robotham, Leydi Attending Unavailable Robotham, Leydi Attending Unavailable Talampas, Romel D Primary Care Unavailable Masci, Nile Consulting Unavailable Talampas, Romel D Referring Unavailable Robotham, Leydi Attending Unavailable Talampas, Romel D Referring Unavailable Talampas, Romel D Primary Care Unavailable Ankur Colon Attending Unavailable Talampas, Romel D Referring Unavailable Talampas, Romel D Primary Care Unavailable Talampas, Romel D Primary Care Unavailable Robotham, Leydi Attending Unavailable Talampas, Romel D Referring Unavailable Elba Ahumada Attending Unavailable Talampas, Romel D Referring Unavailable Talampas, Romel D Primary Care Unavailable Robotham, Leydi Attending Unavailable Masci, Nile Consulting Unavailable Talampas, Romel D Referring Unavailable Talampas, Romel D Primary Care Unavailable Robotham, Leydi Consulting Unavailable Shakaampas , Dr. Romel Calderon Primary Care Provider Nisreen OCASIO, Dr. Romel Calderon Referring Provider Dr. Leydi Carmen MD Attending Provider Kermit OCASIO, Dr. Holley Other Provider Friend Dr. Ankur MCKINLEY Attending Provider Friend Dr. Ankur MCKINLEY Other Provider NILE HALL A Referring Unavailable TALAMPAS, ROMEL D Primary Care Unavailable TALAMPAS, ROMEL D Primary Care Unavailable LINDA NUÑEZ Attending Unavailable MASCI, NILE A Referring Unavailable TALAMPAS, ROMEL D Primary Care Unavailable TALAMPAS, ROMEL D Primary Care Unavailable TEODORO, ESTEFANY Attending Unavailable TALAMPAS, ROMEL D Primary Care Unavailable MASCI, NILE A Referring Unavailable TALAMPAS, ROMEL D Primary Care Unavailable IVELISSE LIMON Referring Unavailable TALAMPAS, ROMEL D Primary Care Unavailable TEODORO, ESTEFANY Attending Unavailable TALAMPAS, ROMEL D Primary Care Unavailable MASCI, NILE A Referring Unavailable TALAMPAS, ROMEL D Primary Care Unavailable TALAMPAS, ROMEL D Primary Care Unavailable MASCI, NILE A Referring Unavailable TALAMPAS, ROMEL D Primary Care Unavailable MASCINILE Referring Unavailable TALAMPAS, ROMEL D Primary Care Unavailable MASCINILE Referring Unavailable TALAMPAS, ROMEL D Primary Care Unavailable FREDIS BUCKNER Attending Unavailable TALAMPAS, ROMEL D Primary Care Unavailable FREDIS BUCKNER Referring Unavailable TALAMPAS, ROMEL D Primary Care Unavailable FREDIS BUCKNER Admitting Unavailable FREDIS BUCKNER Attending Unavailable TALAMPAS, ROMEL D Primary Care Unavailable MASCINILE Referring Unavailable TALAMPAS, ROMEL D Primary Care Unavailable TALAMPAS, ROMEL D Primary Care Unavailable TALAMPAS, ROMEL D Primary Care Unavailable TALAMPAS, ROMEL D Primary Care Unavailable TALAMPAS, ROMEL D Primary Care Unavailable MASCINILE Referring Unavailable TALAMPAS, ROMEL D Primary Care Unavailable MASCINILE Attending Unavailable TALAMPAS, ROMEL D Primary Care Unavailable MASCINILE Referring Unavailable TALAMPAS, ROMEL D Primary Care Unavailable MASCINILE Referring Unavailable TALAMPAS, ROMEL D Primary Care Unavailable MASCINILE Referring Unavailable TALAMPAS, ROMEL D Primary Care Unavailable MASCINILE Referring Unavailable TALAMPAS, ROMEL D Primary Care Unavailable TALAMPAS, ROMEL D Primary Care Unavailable TALAMPAS, ROMEL D Primary Care Unavailable TALAMPAS, ROMEL D Primary Care Unavailable TALAMPAS, ROMEL D Primary Care Unavailable LINDA NUÑEZ Attending Unavailable TALAMPAS, ROMEL D Primary Care Unavailable TALAMPAS, ROMEL D Primary Care Unavailable MASCINILE Referring Unavailable TALAMPAS, ROMEL D Primary Care Unavailable MASCINILE Referring Unavailable TALAMPAS, ROMEL D Primary Care Unavailable MASCINILE Referring Unavailable TALAMPAS, ROMEL D Primary Care Unavailable MASCINILE Referring Unavailable TALAMPAS, ROMEL D Primary Care Unavailable TALAMPAS, ROMEL D Primary Care Unavailable MASCINILE Referring Unavailable TALAMPAS, ROMEL D Primary Care Unavailable FREDIS BUCKNER Attending Unavailable TALAMPAS, ROMEL D Referring Unavailable TALAMPAS, ROMEL D Primary Care Unavailable MASCINILE Referring Unavailable TALAMPAS, ROMEL D Primary Care Unavailable MASCINILE Attending Unavailable MASCINILE Referring Unavailable TALAMPAS, ROMEL D Primary Care Unavailable MASCINILE Referring Unavailable TALAMPAS, ROMEL D Primary Care Unavailable MASCINILE Referring Unavailable TALAMPAS, ROMEL D Primary Care Unavailable MASCI, NILE Haddad Referring Unavailable TALAMPAS, ROMEL D Primary Care Unavailable MASCI, NILE Haddad Referring Unavailable TALAMPAS, ROMEL D Primary Care Unavailable MASCI, NILE Haddad Referring Unavailable TALAMPAS, ROMEL D Primary Care Unavailable BRIANAGIOVANNY STEPHEN Referring Unavailable TALAMPAS, ROMEL D Primary Care Unavailable MASCI, NILE Haddad Referring Unavailable TALAMPAS, ROMEL D Primary Care Unavailable TALAMPAS, ROMEL D Primary Care Unavailable MASCI, NILE Haddad Referring Unavailable TALAMPAS, ROMEL D Primary Care Unavailable ROSI MARTINEZ Attending Unavailable TALAMPAS, ROMEL D Primary Care Unavailable TALAMPAS, ROMEL D Primary Care Unavailable MASCI, NILE Haddad Referring Unavailable TALAMPAS, ROMEL D Primary Care Unavailable MASCI, NILE Haddad Attending Unavailable MASCI, NILE aHddad Referring Unavailable TALAMPAS, ROMEL D Primary Care Unavailable ESTEFANY VALERIO Attending Unavailable MASCI, NILE Haddad Referring Unavailable TALAMPAS, ROMEL D Primary Care Unavailable MASCI, NILE Haddad Attending Unavailable TALAMPAS, ROMEL D Primary Care Unavailable LINDA NUÑEZ Attending Unavailable MASCI, NILE Haddad Referring Unavailable TALAMPAS, ROMEL D Primary Care Unavailable MASCI, NILE Haddad Referring Unavailable TALAMPAS, ROMEL D Primary Care Unavailable MASCI, NILE Haddad Referring Unavailable TALAMPAS, ROMEL D Primary Care Unavailable MILADIS PARKER Attending Unavailable CAREY ELIAS Referring Unavailabl e TALAMPAS, ROMEL D Primary Care Unavailable MASCI, NILE Haddad Attending Unavailable MASCI, NILE Haddad Referring Unavailable TALAMPAS, ROMEL D Primary Care Unavailable MASCI, NILE Haddad Referring Unavailable TALAMPAS, ROMEL D Primary Care Unavailable MASCI, NILE Haddad Referring Unavailable TALAMPAS, ROMEL D Primary Care Unavailable MASCI, NILE Haddad Attending Unavailable TALAMPAS, ROMEL D Primary Care Unavailable MASCI, NILE Haddad Referring Unavailable TALAMPAS, ROMEL D Primary Care Unavailable MASCI, NILE Haddad Attending Unavailable MASCI, NILE Haddad Referring Unavailable TALAMPAS, ROMEL D Primary Care Unavailable MASCI, NILE Haddad Referring Unavailable TALAMPAS, ROMEL D Primary Care Unavailable LINDA NUÑEZ Attending Unavailable TALAMPAS, ROMEL D Primary Care Unavailable MASCI, NILE Haddad Referring Unavailable TALAMPAS, ROMEL D Primary Care Unavailable FREDIS BUCKNER Attending Unavailable TALAMPAS, ROMEL D Primary Care Unavailable NILE HALL Referring Unavailable ROMEL MICHELLE Primary Care Unavailable ROMEL MICHELLE Primary Care Unavailable Medications Current Medications Medication Drug Class(es) Dates Sig (Normalized) Sig (Original) acetaminophen 32 mg/ml oral solution (20 sources) Start: 09-13-2024 End: 10-13-2024 acetaminophen (TYLENOL) 160 mg/5 mL liquid Take 31.2 mL by mouth every 6 hours. Do not exceed 5 doses in 24 hours. 120 mL 09/13/2024 10/13/2024 Active Start: 04-15-2024 take 2 tablets by mo [facility] every six hours as needed acetaminophen (TYLENOL EXTRA STRENGTH) 500 mg tablet Take 1,000 mg by mouth every 6 hours as needed for pain. 04/15/2024 Active Start: 04-13-2024 End: 04-16-2024 take 2 tablets by mouth every six hours as needed acetaminophen (TYLENOL) 325 mg tablet [The details of the medication are not available because there are pending changes by a home health clinician.] 90 tablet 0 04/13/2024 04/16/2024 Discontinued alendronic acid 70 mg oral tablet (20 sources) Bisphosphonate Start: 07-15-2023 End: 10-15-2024 alendronate (FOSAMAX) 70 mg tablet [The details of the medication are not available because there are pending changes by a home health clinician.] 12 tablet 3 07/15/2023 10/15/2024 Discontinued Start: 07-15-2023 take 1 tablet by jennifer th every week alendronate (FOSAMAX) 70 mg tablet Take 1 tablet by mouth one time a week. Take with a full glass of water, on an empty stomach; do NOT lie down for 30minutes. 12 tablet 3 07/15/2023 Active Start: 06-28-2022 take 1 tablet by jennifer th every week alendronate (FOSAMAX) 70 mg tablet Take 1 tablet by mouth one time a week. Take with a full glass of water, on an empty stomach; do NOT lie down for 30minutes. 4 tablet 11 06/28/2022 Active Comment on above: Take 1 tablet by jennifer th one time a week. Take with a full glass of water, on an empty stomach; do NOT lie down for 30minutes. apixaban 2.5 mg oral tablet (20 sources) Factor Xa Inhibitor Start: 04-13-2024 End: 05-18-2024 apixaban (ELIQUIS) 2.5 mg tab(s) [The details of the medication are not available because there are pending changes by a home health clinician.] 48 tablet 0 04/13/2024 05/18/2024 Discontinued dicyclomine hydrochloride 10 mg oral capsule (20 sources) Anticholinergic Start: 02-24-2024 End: 10-15-2024 dicyclomine (BENTYL) 10 mg capsule Indications: Irritable bowel syndrome with both constipation and diarrhea [The details of the medication are not available because there are pending changes by a home health clinician.] 120 capsule 5 02/24/2024 10/15/2024 Discontinued Start: 06-26-2021 End: 02-24-2024 take 1 capsule by mouth three times daily as needed for pain Dicyclomine 10 mg capsule Active 10 mg PO THREE TIMES A DAY as needed for Abdominal Pain September 04, 2021 3:31pm Start: 09-07-2015 End: 09-04-2021 take 2 capsules by mouth three times daily as needed for pain Dicyclomine 10 MG capsule Discontinued 20 mg PO THREE TIMES A DAY as needed for Abdominal Pain September 07, 2015 10:13am September 04, 2021 3:31pm Start: 09-07-2015 End: 09-04-2021 take 20 mg by mouth three times daily Dicyclomine Discontinued 20 MG PO THREE TIMES A DAY September 07, 2015 10:13am September 04, 2021 3:31pm Comment on above: Take 1 or 2 before m eals, as needed. loperamide hydrochloride 2 mg oral tablet (20 sources) Opioid Agonist Start: 06-15-2019 Loperamide HCl (ANTI-DIARRHEAL) 2 mg tab Indications: Irritable bowel syndrome with diarrhea Take 1 tablet by mouth as needed. 06/15/2019 Active Start: 06-04-2019 Loperamide 2 m g capsule Active 2 mg PO every 1 to 4 hours as needed for loose stool June 04, 2019 12:00am Comment on above: Take 1 tablet by jennifer as needed. metroNIDAZOLE 500 mg oral tablet (20 sources) Nitroimidazole Antimicrobial Start: 09-01-2024 End: 10-15-2024 metroNIDAZOLE (FLAGYL) 500 mg tablet Indications: High grade ovarian cancer (HCC) , Preop examination Take 4 tablets by mouth as directed. Take 4 tablets at 7pm and 4 tablets at 11pm the night before surgery 8 tablet 09/01/2024 10/15/2024 Discontinued Start: 03-31-2024 metroNIDAZOLE (FLAGYL) 500 mg tablet On the day before surgery take 1 tablet at 1 pm, 1 tablet at 2 pm, and 2 tablets at 11 pm 4 tablet 0 03/31/2024 Suspended Start: 03-24-2024 End: 03-26-2024 take 1 tablet by mouth twice daily in the evening metroNIDAZOLE (FLAGYL) 500 mg tablet Take 1 tablet by mouth two times a day for 4 doses. Take one tablet at 1 pm, one tablet at 2 pm, two tablets on 11 pm day before surgery 4 tablet 0 03/24/2024 03/26/2024 Active Start: 03-15-2024 End: 03-17-2024 take 1 tablet by mouth twice daily in the evening metroNIDAZOLE (FLAGYL) 500 mg tablet Take 1 tablet by mouth two times a day for 4 doses. Take one tablet at 1 pm, one tablet at 2 pm, two tablets on 11 pm day before surgery 4 tablet 0 03/15/2024 03/17/2024 Active neomycin sulfate 500 mg oral tablet (20 sources) Aminoglycoside Antibacterial Start: 09-01-2024 End: 10-15-2024 neomycin 500 mg tablet Indications: High grade ovarian cancer (HCC) , Preop examination Take 4 tablets by mouth as directed. Take 4 tablets at 7pm and 4 tablets at 11pm the night before surgery 8 tablet 09/01/2024 10/15/2024 Discontinued Start: 03-31-2024 neomycin 500 m g tablet On the day before surgery take two tablets at 1pm, 2pm and at 11pm 6 tablet 0 03/31/2024 Suspended Start: 03-15-2024 neomycin 500 m g tablet Take 2 tablets by mouth as directed for 3 doses. Take 2 tablets at 1 pm, two tablets at 2 pm, and two tablets at 11 pm the day before surgery 6 tablet 0 03/15/2024 Active niraparib (ZEJULA) 200 mg tablet (10 sources) Start: 03-14-2025 take 1 tablet by mouth once daily in the evening niraparib (ZEJULA) 200 mg tablet Indications: High grade ovarian cancer (HCC) Take 1 tablet (200mg) by mouth once daily. 30 tablet 1 03/21/2025 1:09 PM EDT 03/14/2025 Active Start: 03-14-2025 take 1 tablet by jennifer th once daily niraparib (ZEJULA) 200 mg tablet Indications: High grade ovarian cancer (HCC) Take 1 tablet (200mg) by mouth once daily. 30 tablet 1 03/14/2025 Active niraparib (ZEJULA) 300 mg tablet (13 sources) Start: 03-02-2025 take 1 tablet by mouth once daily niraparib (ZEJULA) 300 mg tablet Indications: Anemia, unspecified type Take 1 tablet (300mg) by mouth once daily. 30 tablet 5 03/02/2025 Active Start: 03-02-2025 take 1 tablet by jennifer th once daily niraparib (ZEJULA) 300 mg tablet Indications: Anemia, unspecified type Take 1 tablet by mouth once daily. 30 tablet 5 03/02/2025 Active nitrofurantoin, macrocrystals 25 mg / nitrofurantoin, monohydrate 75 mg oral capsule (2 sources) Nitrofuran Antibacterial Start: 04-30-2024 End: 05-05-2024 take 1 capsule by mouth twice daily nitrofurantoin monohydrate and macrocrystal (MACROBID) 100 mg capsule Take 1 capsule by mouth two times a day for 5 days. 10 capsule 0 04/30/2024 05/05/2024 Active ondansetron 8 mg disintegrating oral tablet (20 sources) Serotonin-3 Receptor Antagonist Start: 12-17-2024 take 1 tablet by mouth every eight hours as needed for nausea Ondansetron 8 mg tablet,disintegrati ng Active 8 mg PO EVERY 8 HOURS as needed for nausea/vomiting December 17, 2024 12:00am Start: 04-22-2024 End: 12-02-2024 take 1 tablet by mouth every eight hours as needed ondansetron orally disintegrating (ZOFRAN ODT) 8 mg disintegrating tablet Take 1 tablet by mouth every 8 hours as needed for nausea/vomiting. 30 tablet 2 12/02/2024 Active Start: 04-01-2024 End: 04-22-2024 take 1 tablet by mouth every six hours as needed for nausea ondansetron orally disintegrating (ZOFRAN ODT) 4 mg disintegrating tablet Indications: Abdominal bloating , Pelvic mass , High grade ovarian cancer (HCC) Take 1 tablet by mouth every 6 hours as needed for nausea/vomiting. 10 tablet 0 04/19/2024 04/22/2024 Discontinued oxyCODONE hydrochloride 5 mg oral tablet (18 sources) Opioid Agonist Start: 09-13-2024 End: 09-18-2024 take 1 tablet by mouth every six hours as needed for pain oxyCODONE IR (ROXICODONE) 5 mg immediate release tablet Indications: Ovarian cancer, bilateral (HCC) , Pelvic mass in female , Post-operative pain Take 1 tablet by mouth every 6 hours as needed for pain for up to 5 days. 10 tablet 09/13/2024 09/18/2024 Active Start: 04-23-2024 End: 04-26-2024 take 1 tablet by mouth every eight hours as needed for pain oxyCODONE IR (ROXICODONE) 5 mg immediate release tablet Indications: Post-operative state Take 1 tablet by mouth every 8 hours as needed for pain for up to 3 days. Do not start before April 23, 2024. 9 tablet 0 04/23/2024 04/26/2024 Active Start: 04-13-2024 End: 04-23-2024 take 1 tablet by mouth every six hours as needed for pain oxyCODONE IR (ROXICODONE) 5 mg immediate release tablet Indications: Post-operative state Take 1 tablet by mouth every 6 hours as needed for pain for up to 10 days. 20 tablet 0 04/13/2024 04/19/2024 Discontinued prochlorperazine 10 mg oral tablet (20 sources) Phenothiazine Start: 12-17-2024 take 1 tablet by mouth twice daily as needed for nausea and vomiting Prochlorperazine Maleate (Compazine) 10 mg tablet Active 10 mg PO TWICE A DAY as needed for nausea and vomiting December 17, 2024 12:00am Start: 04-22-2024 take 1 tablet by jennifer every six hours as needed prochlorperazine (COMPAZINE) 10 mg tablet Take 1 tablet by mouth every 6 hours as needed. 30 tablet 2 04/22/2024 Active rivaroxaban 10 mg oral tablet (16 sources) Factor Xa Inhibitor Start: 09-13-2024 End: 10-15-2024 take 1 tablet by mouth once daily rivaroxaban (XARELTO) 10 mg tablet Take 1 tablet by mouth once daily. 25 tablet 09/13/2024 10/15/2024 Discontinued simethicone 125 mg oral capsule (20 sources) Start: 02-24-2024 End: 04-16-2024 take 1 capsule by mouth every six hours as needed Simethicone (GAS-X) 125 mg cap [The details of the medication are not available because there are pending changes by a home health clinician.] 0 02/24/2024 04/16/2024 Discontinued Completed/Discontinued Medications Medication Drug Class(es) Dates Sig (Normalized) Sig (Original) bevacizumab-bvzr 800 mg in NaCl 0.9% 142 mL (ZIRABEV) (1 source) Start: 12-24-2024 End: 12-24-2024 800 mg (rounded from 807 mg = 15 mg/kg/dose 53.8 kg Treatment plan Recorded weight), INTRAVENOUS, Administer over 30 Minutes, ONCE, 1 dose, On Fri12/24/24 at 1400, Approx Total Volume - IMMEDIATE USE at room temp - DO NOT SHAKE Refrigerate bisacodyl 5 mg delayed release oral tablet (20 sources) Stimulant Laxative Start: 09-01-2024 End: 11-11-2024 Bisacodyl (DULCOLAX) 5 mg tab Indications: High grade ovarian cancer (HCC) , Preop examination Take 1 tablet by mouth as directed. Take 2 tablets at 3pm the day before surgery 2 tablet 09/01/2024 11/11/2024 Discontinued Start: 03-31-2024 Bisacodyl (DUL COLAX) 5 mg tab Take 2 tabs at 2pm the day before surgery 2 tablet 0 03/31/2024 Suspended Start: 03-15-2024 End: 03-15-2024 take 2 tablets by mouth once, then take 2 tablets by mouth once daily in the evening Bisacodyl (DULCOLAX) 5 mg tab Take 2 tablets by mouth one time only for 1 dose. Take 2 tablets at 2 pm the day before surgery 2 tablet 0 03/15/2024 03/15/2024 CARBOplatin 436.2 mg in NaCl 0.9% 318.62 mL (PARAPLATIN) (1 source) Start: 05-19-2024 End: 05-19-2024 CARBOplatin 436.2 mg in NaCl 0.9% 318.62 mL (PARAPLATIN) CARBOplatin 439.8 mg in NaCl 0.9% 318.98 mL (PARAPLATIN) (1 source) Start: 06-11-2024 End: 06-11-2024 439.8 mg (Target AUC = 6), INTRAVENOUS, Administer over 30 Minutes, ONCE, 1 dose, On Fri06/11/24 at 1000, Approx Total Volume - Expires: 06/12/24 @ 1000 Hazardous Chemotherapy Drug: Use appropriate PPE. Antineoplastic Irritant. CARBOplatin 450 mg in NaCl 0 .9% 320 mL (PARAPLATIN) (5 sources) Start: 12-03-2024 End: 12-03-2024 450 mg (rounded from 462 mg, Target AUC = 6), INTRAVENOUS, Administer over 30 Minutes, ONCE, 1 dose, On Fri12/03/24 at 0900, Approx Total Volume - Expires: 12/04/24 @ 0900 Hazardous Chemotherapy Drug: Use appropriate PPE. Antineoplastic Irritant. Start: 10-22-2024 End: 10-22-2024 450 mg (rounded from 462 mg, Target AUC = 6), INTRAVENOUS, Administer over 30 Minutes, ONCE, 1 dose, On Fri10/22/24 at 0830, Approx Total Volume - Expires: 10/23/24 @ 0845 Hazardous Chemotherapy Drug: Use appropriate PPE. Antineoplastic Irritant. Start: 08-12-2024 End: 08-12-2024 450 mg (rounded from 462 mg, Target AUC = 6), INTRAVENOUS, Administer over 30 Minutes, ONCE, 1 dose, On Suze 08/12/24 at 0830, Approx Total Volume - exp 0900 08/13/24 (room temp) Hazardous Chemotherapy Drug: Use appropriate PPE. Antineoplastic Irritant. Start: 07-23-2024 End: 07-23-2024 450 mg (rounded from 462 mg, Target AUC = 6), INTRAVENOUS, Administer over 30 Minutes, ONCE, 1 dose, On Fri07/23/24 at 1030, Approx Total Volume - Expires: 07/24/24 @ 1020 Hazardous Chemotherapy Drug: Use appropriate PPE. Antineoplastic Irritant. Start: 07-01-2024 End: 07-01-2024 450 mg (rounded from 462 mg, Target AUC = 6), INTRAVENOUS, Administer over 30 Minutes, ONCE, 1 dose, On Suze 07/01/24 at 0900, exp 0900 07/02/24 (room temp) Hazardous Chemotherapy Drug: Use appropriate PPE. Antineoplastic Irritant. CARBOplatin 486.6 mg in NaCl 0.9% 323.66 mL (PARAPLATIN) (1 source) Start: 11-12-2024 End: 11-12-2024 486.6 mg (Target AUC = 6), INTRAVENOUS, Administer over 30 Minutes, ONCE, 1 dose, On 11/12/24 at 0830, Approx Total Volume - exp 2100 11/12/24 (room temp) Hazardous Chemotherapy Drug: Use appropriate PPE. Antineoplastic Irritant. CARBOplatin 500 mg in NaCl 0.9% 325 mL (PARAPLATIN) (1 source) Start: 04-28-2024 End: 04-28-2024 CARBOplatin 500 mg in NaCl 0.9% 325 mL (PARAPLATIN) cetirizine hydrochloride 10 mg oral tablet (2 sources) Histamine-1 Receptor Antagonist Start: 10-31-2022 take 1 tablet by mouth once daily cetirizine (ZYRTEC) 10 mg tablet Take 1 tablet by mouth once daily. 30 tablet 0 10/31/2022 Active Comment on above: Take 1 tablet by [facility] once daily. cholecalciferol 0.05 mg oral capsule (20 sources) Vitamin D Start: 06-28-2022 End: 03-02-2025 take 1 capsule by mouth once daily Cholecalciferol (Vitamin D3) 50 mcg (2,000 unit) capsule Discontinued 50 ug PO daily December 17, 2024 12:00am December 20, 2024 11:04am Start: 06-28-2022 Cholecalcifero l, Vitamin D3, 50 mcg (2,000 unit) cap [The details of the medication are not available because there are pending changes by a home health clinician.] 06/28/2022 Active Comment on above: Take 1 capsule by [facility] once daily. dexamethasone 4 mg oral tablet (20 sources) Corticosteroid Start: 12-18-19 End: 04-22-20 take 5 tablets by mouth once daily Dexamethasone 4 mg tablet Discontinued 20 mg PO DAILY as needed for CHEMO December 17, 2024 12:00am April 22, 2025 2:41pm TAKE THE NIGHT BEFORE CHEMO Start: 12-03-2024 End: 12-03-2024 10 mg, INTRAVENOUS, ONCE, 1 dose, On Fri12/03/24 at 0900, Administer over 5 minutes. Start: 11-12-2024 End: 11-12-2024 10 mg, INTRAVENOUS, ONCE, 1 dose, On Fri11/12/24 at 0830, Administer over 5 minutes. Start: 10-22-2024 End: 10-22-2024 10 mg, INTRAVENOUS, ONCE, 1 dose, On Fri10/22/24 at 0830, Administer over 5 minutes. Start: 08-12-2024 End: 08-12-2024 10 mg, INTRAVENOUS, ONCE, 1 dose, On Suze 08/12/24 at 0830, Administer over 5 minutes. Start: 07-23-2024 End: 07-23-2024 10 mg, INTRAVENOUS, ONCE, 1 dose, On Fri07/23/24 at 1030, Administer over 5 minutes. Start: 04-22-2024 End: 03-02-2025 dexAMETHasone (DECADRON) 4 m g tablet Indications: High grade ovarian cancer (HCC) Take 5 tablets 12 and 6 hours prior to chemotherapy treatment. 10 tablet 2 10/20/2024 03/02/2025 Discontinued dexAMETHasone 10 mg in NaCl 0.9% 50 mL (DECADRON) (4 sources) Start: 07-01-2024 End: 07-01-2024 10 mg, INTRAVENOUS, ONCE, 1 dose, On Suze 07/01/24 at 0900, Refrigerate. Start: 06-11-2024 End: 06-11-2024 10 mg, INTRAVENOUS, Administ er over 15 Minutes, ONCE, 1 dose, On 06/11/24 at 1000, Refrigerate. Start: 05-19-2024 End: 05-19-2024 dexAMETHasone 10 mg in NaCl 0.9% 50 mL (DECADRON) Start: 04-28-2024 End: 04-28-2024 dexAMETHasone 10 mg in NaCl 0.9% 50 mL (DECADRON) diphenhydrAMINE (9 sources) Histamine-1 Receptor Antagonist Start: 12-03-2024 End: 12-03-2024 25 mg, INTRAVENOUS, ONCE, 1 dose, On 12/03/24 at 0900, Give prior to chemotherapy. Start: 11-12-2024 End: 11-12-2024 25 mg, INTRAVENOUS, ONCE, 1 dose, On 11/12/24 at 0830, Give prior to chemotherapy. Start: 10-22-2024 End: 10-22-2024 25 mg, INTRAVENOUS, ONCE, 1 dose, On 10/22/24 at 0830, Give prior to chemotherapy. Start: 08-12-2024 End: 08-12-2024 25 mg, INTRAVENOUS, ONCE, 1 dose, On Suze 08/12/24 at 0830, Give prior to chemotherapy. Start: 07-23-2024 End: 07-23-2024 25 mg, INTRAVENOUS, ONCE, 1 dose, On 07/23/24 at 1030, Give prior to chemotherapy. Start: 07-01-2024 End: 07-01-2024 25 mg, INTRAVENOUS, ONCE, 1 dose, On Suze 07/01/24 at 0900, Give prior to chemotherapy. Start: 06-11-2024 End: 06-11-2024 25 mg, INTRAVENOUS, ONCE, 1 dose, On 06/11/24 at 1000, Give prior to chemotherapy. Start: 05-19-2024 End: 05-19-2024 diphenhydrAMINE 25 mg inject ion (BENADRYL) Start: 04-28-2024 End: 04-28-2024 diphenhydrAMINE 25 mg inject ion (BENADRYL) enteric contrast (will be provided with radiology test) (20 sources) Start: 12-02-2024 End: 03-14-2025 enteric contrast (will be provided with radiology test) Indications: High grade ovarian cancer (HCC) For CT ABD/PEL W IVCON Routine order Administer, As Directed One Time Only, via Oral, Rectal, both Oral and Rectal, Enteric Tube, Stoma or Indwelling Catheter, Enteric Contrast as designated per enteric contrast guidelines 1 Each 12/02/2024 03/14/2025 Discontinued (Course of therapy completed) Start: 12-02-[address] (will be provided with radiology test) Indications: High grade ovarian cancer (HCC) For CT ABD/PEL W IVCON Routine order Administer, As Directed One Time Only, via Oral, Rectal, both Oral and Rectal, Enteric Tube, Stoma or Indwelling Catheter, Enteric Contrast as designated per enteric contrast guidelines 1 Each 12/02/2024 Active Start: 08-11-2024 End: 08-12-2024 enteric contrast (will be pr ovided with radiology test) Indications: High grade ovarian cancer (HCC) For CT CHESTABD/PEL W IVCON Routine order Administer, As Directed One Time Only, via Oral, Rectal, both Oral and Rectal, Enteric Tube, Stoma or Indwelling Catheter, Enteric Contrast as designated per enteric contrast guidelines 1 Each 08/11/2024 08/12/2024 Active Start: 05-18-2024 End: 10-15-2024 enteric contrast (will be pr ovided with radiology test) Indications: High grade ovarian cancer (HCC) For CT ABD/PEL W IVCON Routine order Administer, As Directed One Time Only, via Oral, Rectal, both Oral and Rectal, Enteric Tube, Stoma or Indwelling Catheter, Enteric Contrast as designated per enteric contrast guidelines 1 Each 05/18/2024 10/15/2024 Discontinued Start: 05-18-[address] (will be provided with radiology test) Indications: High grade ovarian cancer (HCC) For CT ABD/PEL W IVCON Routine order Administer, As Directed One Time Only, via Oral, Rectal, both Oral and Rectal, Enteric Tube, Stoma or Indwelling Catheter, Enteric Contrast as designated per enteric contrast guidelines 1 Each 05/18/2024 Suspended Start: 05-18-[address] (will be provided with radiology test) Indications: High grade ovarian cancer (HCC) For CT ABD/PEL W IVCON Routine order Administer, As Directed One Time Only, via Oral, Rectal, both Oral and Rectal, Enteric Tube, Stoma or Indwelling Catheter, Enteric Contrast as designated per enteric contrast guidelines 1 Each 05/18/2024 Active Start: 05-18-2024 End: 05-19-2024 enteric contrast (will be pr ovided with radiology test) Indications: High grade ovarian cancer (HCC) For CT CHESTABD/PEL W IVCON Routine order Administer, As Directed One Time Only, via Oral, Rectal, both Oral and Rectal, Enteric Tube, Stoma or Indwelling Catheter, Enteric Contrast as designated per enteric contrast guidelines 1 Each 0 05/18/2024 05/19/2024 Active Start: 05-18-[address] (will be provided with radiology test) Indications: High grade ovarian cancer (HCC) For CT ABD/PEL W IVCON Routine order Administer, As Directed One Time Only, via Oral, Rectal, both Oral and Rectal, Enteric Tube, Stoma or Indwelling Catheter, Enteric Contrast as designated per enteric contrast guidelines 1 Each 0 05/18/2024 Active Start: 03-08-2024 End: 03-09-2024 enteric contrast (will be pr ovided with radiology test) For CT ABD/PEL W IVCON Routine order Administer, As Directed One Time Only, via Oral, Rectal, both Oral and Rectal, Enteric Tube, Stoma or Indwelling Catheter, Enteric Contrast as designated per enteric contrast guidelines 1 Each 0 03/08/2024 03/09/2024 Ergocalciferol (4 sources) Provitamin D2 Compound Start: 07-11-2011 End: 06-28-2022 take 1 capsule by mouth once daily ergocalciferol, Vitamin D2, (DRISDOL) 400 unit cap Take 1 capsule by mouth once daily. 0 07/11/2011 06/28/2022 Discontinued Start: 07-11-2011 take 1 capsule by [facility] once daily ergocalciferol, Vitamin D2, (VITAMIN D) 400 unit ORAL Cap Take 1 capsule by mouth once daily. 0 07/11/2011 Active Comment on above: Take 1 capsule by [facility] once daily. 2 ml famotidine 10 mg/ml injection (9 sources) Histamine-2 Receptor Antagonist Start: 12-03-2024 End: 12-03-2024 20 mg, INTRAVENOUS, ONCE, 1 dose, On Fri12/03/24 at 0900, Give prior to chemotherapy. REFRIGERATE Start: 11-12-2024 End: 11-12-2024 20 mg, INTRAVENOUS, ONCE, 1 dose, On Fri11/12/24 at 0830, Give prior to chemotherapy. REFRIGERATE Start: 10-22-2024 End: 10-22-2024 20 mg, INTRAVENOUS, ONCE, 1 dose, On Fri10/22/24 at 0830, Give prior to chemotherapy. REFRIGERATE Start: 08-12-2024 End: 08-12-2024 20 mg, INTRAVENOUS, ONCE, 1 dose, On Suze 08/12/24 at 0830, Give prior to chemotherapy. REFRIGERATE Start: 07-23-2024 End: 07-23-2024 20 mg, INTRAVENOUS, ONCE, 1 dose, On Fri07/23/24 at 1030, Give prior to chemotherapy. REFRIGERATE Start: 07-01-2024 End: 07-01-2024 20 mg, INTRAVENOUS, ONCE, 1 dose, On Suze 07/01/24 at 0900, Give prior to chemotherapy. REFRIGERATE Start: 06-11-2024 End: 06-11-2024 20 mg, INTRAVENOUS, ONCE, 1 dose, On Fri06/11/24 at 1000, Give prior to chemotherapy. REFRIGERATE Start: 05-19-2024 End: 05-19-2024 famotidine 20 mg injection ( PEPCID) Start: 04-28-2024 End: 04-28-2024 famotidine 20 mg injection ( PEPCID) fluticasone propionate 0.05 mg/actuat metered dose nasal spray (2 sources) Corticosteroid Start: 10-31-2022 take 2 spray(s) by mouth once daily fluticasone (FLONASE) 50 mcg/actuation nasal spray Use 2 Sprays in each nostril once daily. Rinse mouth after use. 9.9 mL 0 10/31/2022 Active Comment on above: Use 2 Sprays in each nostril once daily. Rinse mouth after use. fosaprepitant 150 mg injection (1 source) Start: 08-12-2024 End: 08-12-2024 150 mg, INTRAVENOUS, Administer over 30 Minutes, ONCE, 1 dose, On Suze 08/12/24 at 0830, Refrigerate fosaprepitant 150 mg in NaCl 0.9% 250 mL (EMEND) (8 sources) Start: 12-03-2024 End: 12-03-2024 150 mg, INTRAVENOUS, Administer over 30 Minutes, ONCE, 1 dose, On Fri12/03/24 at 0900, Refrigerate Start: 11-12-2024 End: 11-12-2024 150 mg, INTRAVENOUS, Adminis ter over 30 Minutes, ONCE, 1 dose, On Fri11/12/24 at 0830, Refrigerate Start: 10-22-2024 End: 10-22-2024 150 mg, INTRAVENOUS, Adminis ter over 30 Minutes, ONCE, 1 dose, On Fri10/22/24 at 0830, Refrigerate Start: 07-23-2024 End: 07-23-2024 150 mg, INTRAVENOUS, Adminis ter over 30 Minutes, ONCE, 1 dose, On Fri07/23/24 at 1030, Refrigerate Start: 07-01-2024 End: 07-01-2024 150 mg, INTRAVENOUS, Adminis ter over 30 Minutes, ONCE, 1 dose, On Fri07/01/24 at 0900, Approximate Total Volume = 280 mL Refrigerate Start: 06-11-2024 End: 06-11-2024 150 mg, INTRAVENOUS, Adminis ter over 30 Minutes, ONCE, 1 dose, On Fri06/11/24 at 1000, Refrigerate Start: 05-19-2024 End: 05-19-2024 fosaprepitant 150 mg in NaCl 0.9% 250 mL (EMEND) Start: 04-28-2024 End: 04-28-2024 fosaprepitant 150 mg in NaCl 0.9% 250 mL (EMEND) 10 ml iron sucrose 20 mg/ml injection (5 sources) Parenteral Iron Replacement Start: 03-21-2025 End: 03-21-2025 200 mg, INTRAVENOUS, ONCE, 1 dose, On Fri03/21/25 at 1000, Please conduct a 30 minute post dose observation. Start: 03-17-2025 End: 03-17-2025 200 mg, INTRAVENOUS, ONCE, 1 dose, On Fri03/17/25 at 0830, Please conduct a 30 minute post dose observation. Start: 03-15-2025 End: 03-15-2025 200 mg, INTRAVENOUS, ONCE, 1 dose, On Fri03/15/25 at 1000, Please conduct a 30 minute post dose observation. Start: 03-11-2025 End: 03-11-2025 200 mg, INTRAVENOUS, ONCE, 1 dose, On Fri03/11/25 at 1030, Please conduct a 30 minute post dose observation. Start: 03-09-2025 End: 03-09-2025 200 mg, INTRAVENOUS, ONCE, 1 dose, On Fri03/09/25 at 1300, Please conduct a 30 minute post dose observation. iv contrast (will be provide d with radiology test) (20 sources) Start: 12-02-2024 End: 03-14-2025 iv contrast (will be provide d with radiology test) Indications: High grade ovarian cancer (HCC) CT Chest W -Inject, intravenously, once for 1 dose.No IV access, insert saline lock prior to the beginning of sedation, infusion, injection of imaging exam. Discontinue saline lock post exam. If Pt. has a central line or IVAD, may access for administration according to line specific nursing protocol. Once exam is complete flush line and de-access according to line specific nursing protocol in the CT contrast administration guidelines link. 1 Each 12/02/2024 03/14/2025 Discontinued (Course of therapy completed) Start: 12-02-2024 End: 03-14-2025 iv contrast (will be provide d with radiology test) Indications: High grade ovarian cancer (HCC) CT ABD/PEL -Inject, intravenously, once for 1 dose.No IV access, insert saline lock prior to the beginning of sedation, infusion, injection of imaging exam. Discontinue saline lock post exam. If Pt. has a central line or IVAD, may access for administration according to line specific nursing protocol. Once exam is complete flush line and de-access according to line specific nursing protocol in the CT contrast administration guidelines link. 1 Each 12/02/2024 03/14/2025 Discontinued (Course of therapy completed) Start: 12-02-2024 iv contrast (w ill be provided with radiology test) Indications: High grade ovarian cancer (HCC) CT Chest W -Inject, intravenously, once for 1 dose.No IV access, insert saline lock prior to the beginning of sedation, infusion, injection of imaging exam. Discontinue saline lock post exam. If Pt. has a central line or IVAD, may access for administration according to line specific nursing protocol. Once exam is complete flush line and de-access according to line specific nursing protocol in the CT contrast administration guidelines link. 1 Each 12/02/2024 Active Start: 12-02-2024 iv contrast (w ill be provided with radiology test) Indications: High grade ovarian cancer (HCC) CT ABD/PEL -Inject, intravenously, once for 1 dose.No IV access, insert saline lock prior to the beginning of sedation, infusion, injection of imaging exam. Discontinue saline lock post exam. If Pt. has a central line or IVAD, may access for administration according to line specific nursing protocol. Once exam is complete flush line and de-access according to line specific nursing protocol in the CT contrast administration guidelines link. 1 Each 12/02/2024 Active Start: 08-11-2024 End: 08-12-2024 iv contrast (will be provide d with radiology test) Indications: High grade ovarian cancer (HCC) CT Chest ABD/PEL-Inject, intravenously, once for 1 dose.No IV access, insert saline lock prior to the beginning of sedation, infusion, injection of imaging exam. Discontinue saline lock post exam. If Pt. has a central line or IVAD, may access for administration according to line specific nursing protocol. Once exam is complete flush line and de-access according to line specific nursing protocol in the CT contrast administration guidelines link. 1 Each 08/11/2024 08/12/2024 Active Start: 05-18-2024 End: 10-15-2024 iv contrast (will be provide d with radiology test) Indications: High grade ovarian cancer (HCC) CT Chest W -Inject, intravenously, once for 1 dose.No IV access, insert saline lock prior to the beginning of sedation, infusion, injection of imaging exam. Discontinue saline lock post exam. If Pt. has a central line or IVAD, may access for administration according to line specific nursing protocol. Once exam is complete flush line and de-access according to line specific nursing protocol in the CT contrast administration guidelines link. 1 Each 05/18/2024 10/15/2024 Discontinued Start: 05-18-2024 End: 10-15-2024 iv contrast (will be provide d with radiology test) Indications: High grade ovarian cancer (HCC) CT ABD/PEL -Inject, intravenously, once for 1 dose.No IV access, insert saline lock prior to the beginning of sedation, infusion, injection of imaging exam. Discontinue saline lock post exam. If Pt. has a central line or IVAD, may access for administration according to line specific nursing protocol. Once exam is complete flush line and de-access according to line specific nursing protocol in the CT contrast administration guidelines link. 1 Each 05/18/2024 10/15/2024 Discontinued Start: 05-18-2024 iv contrast (w ill be provided with radiology test) Indications: High grade ovarian cancer (HCC) CT Chest W -Inject, intravenously, once for 1 dose.No IV access, insert saline lock prior to the beginning of sedation, infusion, injection of imaging exam. Discontinue saline lock post exam. If Pt. has a central line or IVAD, may access for administration according to line specific nursing protocol. Once exam is complete flush line and de-access according to line specific nursing protocol in the CT contrast administration guidelines link. 1 Each 05/18/2024 Suspended Start: 05-18-2024 iv contrast (w ill be provided with radiology test) Indications: High grade ovarian cancer (HCC) CT ABD/PEL -Inject, intravenously, once for 1 dose.No IV access, insert saline lock prior to the beginning of sedation, infusion, injection of imaging exam. Discontinue saline lock post exam. If Pt. has a central line or IVAD, may access for administration according to line specific nursing protocol. Once exam is complete flush line and de-access according to line specific nursing protocol in the CT contrast administration guidelines link. 1 Each 05/18/2024 Suspended Start: 05-18-2024 iv contrast (w ill be provided with radiology test) Indications: High grade ovarian cancer (HCC) CT Chest W -Inject, intravenously, once for 1 dose.No IV access, insert saline lock prior to the beginning of sedation, infusion, injection of imaging exam. Discontinue saline lock post exam. If Pt. has a central line or IVAD, may access for administration according to line specific nursing protocol. Once exam is complete flush line and de-access according to line specific nursing protocol in the CT contrast administration guidelines link. 1 Each 05/18/2024 Active Start: 05-18-2024 iv contrast (w ill be provided with radiology test) Indications: High grade ovarian cancer (HCC) CT ABD/PEL -Inject, intravenously, once for 1 dose.No IV access, insert saline lock prior to the beginning of sedation, infusion, injection of imaging exam. Discontinue saline lock post exam. If Pt. has a central line or IVAD, may access for administration according to line specific nursing protocol. Once exam is complete flush line and de-access according to line specific nursing protocol in the CT contrast administration guidelines link. 1 Each 05/18/2024 Active Start: 05-18-2024 End: 05-19-2024 iv contrast (will be provide d with radiology test) Indications: High grade ovarian cancer (HCC) CT Chest ABD/PEL-Inject, intravenously, once for 1 dose.No IV access, insert saline lock prior to the beginning of sedation, infusion, injection of imaging exam. Discontinue saline lock post exam. If Pt. has a central line or IVAD, may access for administration according to line specific nursing protocol. Once exam is complete flush line and de-access according to line specific nursing protocol in the CT contrast administration guidelines link. 1 Each 0 05/18/2024 05/19/2024 Active Start: 05-18-2024 iv contrast (w ill be provided with radiology test) Indications: High grade ovarian cancer (HCC) CT Chest W -Inject, intravenously, once for 1 dose.No IV access, insert saline lock prior to the beginning of sedation, infusion, injection of imaging exam. Discontinue saline lock post exam. If Pt. has a central line or IVAD, may access for administration according to line specific nursing protocol. Once exam is complete flush line and de-access according to line specific nursing protocol in the CT contrast administration guidelines link. 1 Each 0 05/18/2024 Active Start: 05-18-2024 iv contrast (w ill be provided with radiology test) Indications: High grade ovarian cancer (HCC) CT ABD/PEL -Inject, intravenously, once for 1 dose.No IV access, insert saline lock prior to the beginning of sedation, infusion, injection of imaging exam. Discontinue saline lock post exam. If Pt. has a central line or IVAD, may access for administration according to line specific nursing protocol. Once exam is complete flush line and de-access according to line specific nursing protocol in the CT contrast administration guidelines link. 1 Each 0 05/18/2024 Active Start: 03-08-2024 End: 03-09-2024 iv contrast (will be provide d with radiology test) CT ABD/PEL -Inject, intravenously, once for 1 dose.No IV access, insert saline lock prior to the beginning of sedation, infusion, injection of imaging exam. Discontinue saline lock post exam. If Pt. has a central line or IVAD, may access for administration according to line specific nursing protocol. Once exam is complete flush line and de-access according to line specific nursing protocol in the CT contrast administration guidelines link. 1 Each 0 03/08/2024 03/09/2024 ketoconazole 20 mg/ml topical cream (7 sources) Azole Antifungal Start: 06-26-2021 ketoconazole (NIZORAL) 2 % cream Apply 1 application to affected area twice daily. Continue until 1 week after rash resolves 30 g 1 06/26/2021 Active Comment on above: Apply 1 application to affected area twice daily. Continue until 1 week after rash resolves magnesium citrate 58.2 mg/ml oral solution (3 sources) Start: 03-15-2024 End: 03-15-2024 take 296 mL by mouth once daily in the evening magnesium citrate solution Take 296 mL by mouth one time only for 1 dose. At 2 PM the day before surgery 296 mL 0 03/15/2024 03/15/2024 Start: 03-15-2024 End: 03-15-2024 magnesium citrate solution I ndications: Preop examination 296 mL one time only for 1 dose. Drink at 2:00pm on the day before surgery 296 mL 0 03/15/2024 03/15/2024 methylcellulose 500 mg oral tablet (20 sources) take 1 tablet by mouth once daily Methylcellulose, Laxative, 500 mg tab Take 1 tablet by mouth once daily. 0 Suspended Comment on above: Take 1 tablet by jennifer th once daily. nutritional supplement ([email or web address] STANDARD 1.4) 0.06 G - 1.4 Kcal/mL oral liquid (20 sources) Start: 03-24-20 End: 02-04-20 take 325 mL by mouth three times daily nutritional supplement ([email or web address] STANDARD 1.4) 0.06 G - 1.4 Kcal/mL oral liquid Take 325 mL by mouth three times a day. 3250 mL 2 03/24/2024 02/03/2025 Discontinued (Other) Start: 03-24-2024 take 325 mL by mouth three times daily nutritional supplement ([email or web address] STANDARD 1.4) 0.06 G - 1.4 Kcal/mL oral liquid Take 325 mL by mouth three times a day. 3250 mL 2 03/24/2024 Suspended Start: 03-24-2024 take 325 mL by mouth three times daily nutritional supplement ([email or web address] STANDARD 1.4) 0.06 G - 1.4 Kcal/mL oral liquid Take 325 mL by mouth three times a day. 3250 mL 2 03/24/2024 Active Start: 03-24-2024 End: 04-23-2024 nutritional supplement ([email or web address] STANDARD 1.4) 0.06 G - 1.4 Kcal/mL oral liquid [The details of the medication are not available because there are pending changes by a home health clinician.] 3250 mL 2 03/24/2024 04/23/2024 Active Start: 03-24-2024 End: 04-23-2024 take 325 mL by mouth three times daily nutritional supplement ([email or web address] STANDARD 1.4) 0.06 G - 1.4 Kcal/mL oral liquid Take 325 mL by mouth three times a day. 3250 mL 2 03/24/2024 04/23/2024 Suspended Start: 03-24-2024 End: 04-23-2024 take 325 mL by mouth three times daily nutritional supplement ([email or web address] STANDARD 1.4) 0.06 G - 1.4 Kcal/mL oral liquid Take 325 mL by mouth three times a day. 3250 mL 2 03/24/2024 04/23/2024 Active nutrutional supplement ([email or web address] STANDARD 1.4) 0.06G-1.4Kcal/mL oral liquid liquid (4 sources) Start: 12-17-2024 End: 01-05-2025 nutrutional supplement ([email or web address] STANDARD 1.4) 0.06G-1.4Kcal/mL oral liquid liquid Discontinued PO December 17, 2024 12:00am January 05, 2025 2:22pm Start: 12-17-2024 nutrutional saenz pplement ([email or web address] STANDARD 1.4) 0.06G- 1.4Kcal/mL oral liquid liquid Active PO December 17, 2024 12:00am PACLitaxel 200 mg in NaCl 0. 9% 308.3333 mL (TAXOL) (2 sources) Start: 06-11-2024 End: 06-11-2024 200 mg (rounded from 205.2 m g = 135 mg/m2 1.52 m2 Treatment Plan BSA from Recorded weight), INTRAVENOUS, at 102.78 mL/hr, Administer over 3 Hours, ONCE, 1 dose, On Fri06/11/24 at 1000, Approx Total Volume - Expires: 06/12/24 @ 1600 Hazardous Chemotherapy Drug: Use appropriate PPE. Antineoplastic Irritant with Vesicant Potential. Administer with non-DEHP 0.2 micron filter and tubing. Start: 05-19-2024 End: 05-19-2024 PACLitaxel 200 mg in NaCl 0. 9% 308.3333 mL (TAXOL) PACLitaxel 210 mg in NaCl 0. 9% 575 mL (TAXOL) (7 sources) Start: 12-03-2024 End: 12-03-2024 210 mg (rounded from 213.3 m g = 135 mg/m2 1.58 m2 Treatment Plan BSA from Recorded weight), INTRAVENOUS, at 191.67 mL/hr, Administer over 3 Hours, ONCE, 1 dose, On Fri12/03/24 at 0900, Approx Total Volume - Expires: 12/04/24 @ 1445 Hazardous Chemotherapy Drug: Use appropriate PPE. Antineoplastic Irritant with Vesicant Potential. Administer with non-DEHP 0.2 micron filter and tubing. Start: 11-12-2024 End: 11-12-2024 210 mg (rounded from 213.3 m g = 135 mg/m2 1.58 m2 Treatment Plan BSA from Recorded weight), INTRAVENOUS, at 191.67 mL/hr, Administer over 3 Hours, ONCE, 1 dose, On Fri11/12/24 at 0830, Approx Total Volume - exp 2100 11/12/24 (room temp) Hazardous Chemotherapy Drug: Use appropriate PPE. Antineoplastic Irritant with Vesicant Potential. Administer with non-DEHP 0.2 micron filter and tubing. Start: 10-22-2024 End: 10-22-2024 210 mg (rounded from 213.3 m g = 135 mg/m2 1.58 m2 Treatment Plan BSA from Recorded weight), INTRAVENOUS, at 191.67 mL/hr, Administer over 3 Hours, ONCE, 1 dose, On Fri10/22/24 at 0830, Approx Total Volume - Expires: 10/23/24 @ 1445 Hazardous Chemotherapy Drug: Use appropriate PPE. Antineoplastic Irritant with Vesicant Potential. Administer with non-DEHP 0.2 micron filter and tubing. Start: 08-12-2024 End: 08-12-2024 210 mg (rounded from 213.3 m g = 135 mg/m2 1.58 m2 Treatment Plan BSA from Recorded weight), INTRAVENOUS, at 191.67 mL/hr, Administer over 3 Hours, ONCE, 1 dose, On Suze 08/12/24 at 0830, Approx Total Volume - exp 1430 08/13/24 (room temp) Hazardous Chemotherapy Drug: Use appropriate PPE. Antineoplastic Irritant with Vesicant Potential. Administer with non-DEHP 0.2 micron filter and tubing. Start: 07-23-2024 End: 07-23-2024 210 mg (rounded from 213.3 m g = 135 mg/m2 1.58 m2 Treatment Plan BSA from Recorded weight), INTRAVENOUS, at 191.67 mL/hr, Administer over 3 Hours, ONCE, 1 dose, On Fri07/23/24 at 1030, Approx Total Volume - Expires: 07/24/24 @ 1620 Hazardous Chemotherapy Drug: Use appropriate PPE. Antineoplastic Irritant with Vesicant Potential. Administer with non-DEHP 0.2 micron filter and tubing. Start: 07-01-2024 End: 07-01-2024 210 mg (rounded from 213.3 m g = 135 mg/m2 1.58 m2 Treatment Plan BSA from Recorded weight), INTRAVENOUS, at 191.67 mL/hr, Administer over 3 Hours, ONCE, 1 dose, On Suze 07/01/24 at 0900, exp 1500 07/02/24 (room temp) Hazardous Chemotherapy Drug: Use appropriate PPE. Antineoplastic Irritant with Vesicant Potential. Administer with non-DEHP 0.2 micron filter and tubing. Start: 04-28-2024 End: 04-28-2024 PACLitaxel 210 mg in NaCl 0. 9% 575 mL (TAXOL) 5 ml palonosetron 0.05 mg/ml injection (9 sources) Serotonin-3 Receptor Antagonist Start: 12-03-2024 End: 12-03-2024 0.25 mg, INTRAVENOUS, ONCE, 1 dose, On Fri12/03/24 at 0900, Flush IV line with NS prior to and following administration. Start: 11-12-2024 End: 11-12-2024 0.25 mg, INTRAVENOUS, ONCE, 1 dose, On Fri11/12/24 at 0830, Flush IV line with NS prior to and following administration. Start: 10-22-2024 End: 10-22-2024 0.25 mg, INTRAVENOUS, ONCE, 1 dose, On Fri10/22/24 at 0830, Flush IV line with NS prior to and following administration. Start: 08-12-2024 End: 08-12-2024 0.25 mg, INTRAVENOUS, ONCE, 1 dose, On Suze 08/12/24 at 0830, Flush IV line with NS prior to and following administration. Start: 07-23-2024 End: 07-23-2024 0.25 mg, INTRAVENOUS, ONCE, 1 dose, On Fri07/23/24 at 1030, Flush IV line with NS prior to and following administration. Start: 07-01-2024 End: 07-01-2024 0.25 mg, INTRAVENOUS, ONCE, 1 dose, On Suze 07/01/24 at 0900, Flush IV line with NS prior to and following administration. Start: 06-11-2024 End: 06-11-2024 0.25 mg, INTRAVENOUS, ONCE, 1 dose, On Fri06/11/24 at 1000, Flush IV line with NS prior to and following administration. Start: 05-19-2024 End: 05-19-2024 palonosetron 0.25 mg injecti on (ALOXI) Start: 04-28-2024 End: 04-28-2024 palonosetron 0.25 mg injecti on (ALOXI) polyethylene glycol 3350 22965 mg powder for oral solution (20 sources) Osmotic Laxative Start: 09-01-2024 End: 11-11-2024 polyethylene glycol 3350 (MIRALAX) 17 gram/dose powder Indications: High grade ovarian cancer (HCC) , Preop examination Purchase one 238 gram bottle of Miralax Use as directed 238 g 09/01/2024 11/11/2024 Discontinued Start: 03-31-2024 polyethylene g lycol 3350 (MIRALAX) 17 gram/dose powder Bowel prep starting the day before surgery-refer to printed instructions provided to you. Mix the whole bottle of Miralax and the Gatorade (64 oz) into a pitcher and stir until dissolved. Drink an 8 ounce glass every 10-15 minutes until the solution is gone. 235 g 0 03/31/2024 Suspended Problems Active Problems Problem Classification Problem Date Documented Da te Episodic/Chronic Abdominal pain (4 sources) Generalized abdominal pain; Translations: [Generalized abdominal pain] 03-03-2024 Episodic Cancer of ovary (20 sources) Malignant tumor of ovary; Translations: [Malignant neoplasm of unspecified ovary] Onset: 04-22-2024 04-19-2024 Chronic Deficiency and other anemia (20 sources) Iron deficiency anemia due to blood loss; Translations: [Iron deficiency anemia secondary to blood loss (chronic)] Onset: 03-02-2025 03-02-2025 Chronic Deficiency and other anemia (1 source) Iron deficiency anemia secondary to blood loss (chronic); Translations: [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 loss] Onset: 03-02-2025 Chronic Deficiency and other anemia (1 source) Anemia; Translations: [Anemia, unspecified] 03-02-2025 Episodic Deficiency and other anemia (1 source) Anemia, unspecified; Translations: [Anemia, unspecified type] Onset: 03-02-2025 Episodic Gastrointestinal hemorrhage (13 sources) Painless rectal bleeding; Translations: [Hemorrhage of anus and rectum] Onset: 01-13-2025 12-02-2024 Episodic Genitourinary symptoms and ill-defined conditions (3 sources) Nikki hematuria; Translations: [Gross hematuria] Onset: 02-03-2025 04-30-2024 Episodic Nutritional deficiencies (20 sources) Vitamin D deficiency; Translations: [Vitamin D deficiency, unspecified] Onset: 03-18-2024 03-08-2024 Chronic Osteoporosis (2 sources) Senile osteoporosis; Translations: [Age-related osteoporosis without current pathological fracture] Onset: 04-28-2024 Chronic Other aftercare (5 sources) Patient encounter status; 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] Episodic Other aftercare (3 sources) Surgical follow-up; Translations: [Encounter for follow-up examination after completed treatment for conditions other than malignant neoplasm] 09-14-2024 Episodic Other gastrointestinal disorders (20 sources) Irritable bowel syndrome with diarrhea; Translations: [Irritable bowel syndrome with diarrhea] Onset: 11-16-2015 11-16-2015 Chronic Other gastrointestinal disorders (1 source) Irritable bowel syndrome; Translations: [Mixed irritable bowel syndrome] 03-08-2024 Chronic Other gastrointestinal disorders (20 sources) Malabsorption - iron; Translations: [Intestinal malabsorption, unspecified] Onset: 03-02-2025 03-02-2025 Chronic Other gastrointestinal disorders (1 source) Intestinal malabsorption, unspecified; 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)] Onset: 03-02-2025 Chronic Other gastrointestinal disorders (1 source) Irritable bowel syndrome with diarrhea; Translations: [Irritable bowel syndrome with diarrhea] Onset: 11-16-2015 Chronic Other gastrointestinal disorders (6 sources) Abdominal bloating; Translations: [Abdominal distension (gaseous)] 03-03-2024 Episodic Other gastrointestinal disorders (1 source) Abdominal distension, gaseous; Translations: [Abdominal distension (gaseous)] 03-08-2024 Episodic Other upper respiratory infections (1 source) Upper respiratory infection; Translations: [Acute upper respiratory infection, unspecified] Episodic Otitis media and related conditions (1 source) Dysfunction of bilateral eustachian tubes; Translations: [Other specified disorders of Eustachian tube, bilateral] Episodic Residual codes; unclassified (1 source) Postoperative state; Translations: [Other specified postprocedural states] 04-19-2024 Episodic Residual codes; unclassified (3 sources) History of closure of ileostomy; Translations: [Other specified postprocedural states] 03-01-2025 Episodic Unclassified (1 source) Ovarian cancer, bilateral (HCC); Translations: [Ovarian cancer, bilateral (HCC)] Onset: 09-09-2024 Past or Other Problems Problem Classification Problem Date Documented Da te Episodic/Chronic Administrative/social admission (3 sources) Education and/or schooling finding; Translations: [Problems related to education and literacy, unspecified] Onset: 12-22-2024 03-16-2024 Episodic Nutritional deficiencies (20 sources) Nutritional deficiency state; Translations: [Nutritional deficiency, unspecified] Onset: 03-17-2024 03-17-2024 Episodic Other aftercare (1 source) Encounter for follow-up examination after completed treatment for conditions other than malignant neoplasm; Translations: [Postop check] Onset: 10-08-2024 Episodic Other aftercare (1 source) Other intermediate (current) drug therapy; Translations: [Encounter for long-term current use of medication] Onset: 04-28-2024 Episodic Other bone disease and musculoskeletal deformities (20 sources) Osteopenia; Translations: [Other specified disorders of bone density and structure, unspecified site] Onset: 07-13-2012 07-13-2012 Episodic Other gastrointestinal disorders (20 sources) Pelvic mass; Translations: [Intra-abdominal and pelvic swelling, mass and lump, unspecified site] Onset: 04-09-2024 03-15-2024 Episodic Other gastrointestinal disorders (20 sources) Finding of abdomen; Translations: [Generalized intra-abdominal and pelvic swelling, mass and lump] Onset: 03-15-2024 03-15-2024 Episodic Other gastrointestinal disorders (20 sources) Ascites; Translations: [Other ascites] Onset: 03-17-2024 03-17-2024 Episodic Other gastrointestinal disorders (2 sources) Intra-abdominal and pelvic swelling, mass and lump, unspecified site; Translations: [Pelvic mass in female] Onset: 04-09-2024 Episodic Other gastrointestinal disorders (1 source) Abdominal distension (gaseous); Translations: [Abdominal bloating] Onset: 06-15-2024 Episodic Other nervous system disorders (20 sources) Postoperative pain ; Translations: [Other acute postprocedural pain] Onset: 09-13-2024 09-13-2024 Episodic Other nervous system disorders (1 source) Other acute postprocedural pain; Translations: [Post-operative pain] Onset: 09-13-2024 Episodic Other screening for suspected conditions (not mental disorders or infectious disease) (3 sources) Increased cancer antigen 125; Translations: [Elevated cancer antigen 125 [CA 125]] Onset: 10-08-2024 07-16-2024 Episodic Other skin disorders (20 sources) Sebaceous cyst of skin; Translations: [Sebaceous cyst] Onset: 07-05-2008 Resolved: 11-16-2015 11-16-2015 Episodic Results Test Name Value Interpretation Reference Range Facility CBC W Auto Differential pane l (Bld)on 04-25-2025 Basophils (Bld) [#/Vol] 10*3/uL Normal <0.11 [facility] Comment on above: Order Comment: Speci men Type: BLOOD SPECIMENOrdering Facility: [facility] Address: [address] [place] [address] Performed By: #### 5 7021-8 ####[facility] [id number] [place] [address] [place] Basophils/100 WBC (Bld) 0.5 % Normal [facility] Comment on above: Order Comment: Speci men Type: BLOOD SPECIMENOrdering Facility: [facility] Address: [address] [place] [address] Performed By: #### 5 7021-8 ####[facility] [id number] [place] [address] [place] Differential cell count method Nom (Bld) Auto Normal [facility] Comment on above: Order Comment: Speci men Type: BLOOD SPECIMENOrdering Facility: [facility] Address: [address] [place] [address] Performed By: #### 5 7021-8 ####[facility] [id number] [place] [address] [place] Eosinophils (Bld) [#/Vol] 0.06 10*3/uL Normal <0.46 [facility] Comment on above: Order Comment: Speci men Type: BLOOD SPECIMENOrdering Facility: [facility] Address: [address] [place] [address] Performed By: #### 5 7021-8 ####[facility] [id number] [place] [address] [place] Eosinophils/100 WBC (Bld) 1.6 % Normal [facility] Comment on above: Order Comment: Speci men Type: BLOOD SPECIMENOrdering Facility: [facility] Address: [address] [place] [address] Performed By: #### 5 7021-8 ####[facility] [id number] [place] [address] [place] Erythrocyte distribution width (RBC) [Ratio] 19.9 % High 11.5-15.0 [facility] Comment on above: Order Comment: Speci men Type: BLOOD SPECIMENOrdering Facility: [facility] Address: [address] [place] [address] Performed By: #### 5 7021-8 ####[facility] MILLWNCLIA [id number] [place] [address] [place] Hematocrit (Bld) [Volume fraction] 28.0 % Low 36.0-46.0 [facility] Comment on above: Order Comment: Speci men Type: BLOOD SPECIMENOrdering Facility: [facility] Address: [address] [place] [address] Performed By: #### 5 7021-8 ####[facility] [id number] [place] [address] [place] Hemoglobin (Bld) [Mass/Vol] 9.1 g/dL Low 11.5-15.5 [facility] Comment on above: Order Comment: Speci men Type: BLOOD SPECIMENOrdering Facility: [facility] Address: [address] [place] [address] Performed By: #### 5 7021-8 ####[facility] [id number] [place] [address] [place] Immature granulocytes (Bld) [#/Vol] 10*3/uL Normal <0.10 [facility] Comment on above: Order Comment: Speci men Type: BLOOD SPECIMENOrdering Facility: [facility] Address: [address] [place] [address] Performed By: #### 5 7021-8 ####[facility] [id number] [place] [address] [place] Immature granulocytes/100 WBC (Bld) 0.3 % Normal [facility] Comment on above: Order Comment: Speci men Type: BLOOD SPECIMENOrdering Facility: [facility] Address: [address] [place] [address] Performed By: #### 5 7021-8 ####[facility] [id number] [place] [address] [place] Lymphocytes (Bld) [#/Vol] 0.67 10*3/uL Low 1.00-4.00 [facility] Comment on above: Order Comment: Speci men Type: BLOOD SPECIMENOrdering Facility: [facility] Address: [address] [place] [address] Performed By: #### 5 7021-8 ####[facility] [id number] [place] [address] [place] Lymphocytes/100 WBC (Bld) 18.1 % Normal [facility] Comment on above: Order Comment: Speci men Type: BLOOD SPECIMENOrdering Facility: [facility] Address: [address] [place] [address] Performed By: #### 5 7021-8 ####[facility] [id number] [place] [address] [place] MCH (RBC) [Entitic mass] 28.7 pg Normal 26.0-34.0 [facility] Comment on above: Order Comment: Speci men Type: BLOOD SPECIMENOrdering Facility: [facility] Address: [address] [place] [address] Performed By: #### 5 7021-8 ####[facility] [id number] [place] [address] [place] MCHC (RBC) [Mass/Vol] 32.5 g/dL Normal 30.5-36.0 [facility] Comment on above: Order Comment: Speci men Type: BLOOD SPECIMENOrdering Facility: [facility] Address: [address] [place] [address] Performed By: #### 5 7021-8 ####[facility] [id number] [place] [address] [place] MCV (RBC) [Entitic vol] 88.3 fL Normal 80.0-100.0 [facility] Comment on above: Order Comment: Speci men Type: BLOOD SPECIMENOrdering Facility: [facility] Address: [address] [place] [address] Performed By: #### 5 7021-8 ####[facility] [id number] [place] [address] [place] Monocytes (Bld) [#/Vol] 0.61 10*3/uL Normal <0.87 [facility] Comment on above: Order Comment: Speci men Type: BLOOD SPECIMENOrdering Facility: [facility] Address: [address] [place] [address] Performed By: #### 5 7021-8 ####[facility] [id number] [place] [address] [place] Monocytes/100 WBC (Bld) 16.5 % Normal [facility] Comment on above: Order Comment: Speci men Type: BLOOD SPECIMENOrdering Facility: [facility] Address: [address] [place] [address] Performed By: #### 5 7021-8 ####[facility] [id number] [place] [address] [place] Neutrophils (Bld) [#/Vol] 2.33 10*3/uL Normal 1.45-7.50 [facility] Comment on above: Order Comment: Speci men Type: BLOOD SPECIMENOrdering Facility: [facility] Address: [address] [place] [address] Performed By: #### 5 7021-8 ####[facility] [id number] [place] [address] [place] Neutrophils/100 WBC (Bld) 63.0 % Normal [facility] Comment on above: Order Comment: Speci men Type: BLOOD SPECIMENOrdering Facility: [facility] Address: [address] [place] [address] Performed By: #### 5 7021-8 ####[facility] [id number] [place] [address] [place] Nucleated RBC (Bld) [#/Vol] 0.02 10*3/uL High <0.01 [facility] Comment on above: Order Comment: Speci men Type: BLOOD SPECIMENOrdering Facility: [facility] Address: [address] [place] [address] Performed By: #### 5 7021-8 ####[facility] [id number] [place] [address] [place] Nucleated RBC/100 WBC (Bld) [Ratio] 0.5 /[address] [facility] Comment on above: Order Comment: Speci men Type: BLOOD SPECIMENOrdering Facility: [facility] Address: [address] [place] [address] Performed By: #### 5 7021-8 ####[facility] [id number] [place] [address] [place] Platelet mean volume (Bld) [Entitic vol] 9.5 fL Normal 9.0-12.7 [facility] Comment on above: Order Comment: Speci men Type: BLOOD SPECIMENOrdering Facility: [facility] Address: [address] [place] [address] Performed By: #### 5 7021-8 ####[facility] [id number] [place] [address] [place] Platelets (Bld) [#/Vol] 295 10*3/uL Normal 150-400 [facility] Comment on above: Order Comment: Speci men Type: BLOOD SPECIMENOrdering Facility: [facility] Address: [address] [place] [address] Performed By: #### 5 7021-8 ####[facility] [id number] [place] [address] [place] RBC (Bld) [#/Vol] 3.17 10*6/uL Low 3.90-5.20 [facility] Comment on above: Order Comment: Speci men Type: BLOOD SPECIMENOrdering Facility: [facility] Address: [address] [place] [address] Performed By: #### 5 7021-8 ####[facility] [id number] [place] [address] [place] WBC (Bld) [#/Vol] 3.70 10*3/uL Normal 3.70-11.00 [facility] Comment on above: Order Comment: Speci men Type: BLOOD SPECIMENOrdering Facility: [facility] Address: [address] [place] [address] Performed By: #### 5 7021-8 ####[facility] [id number] [place] [address] [place] Cancer Ag125 SerPl-aCncon Cancer Ag 125 Qn 12 [arb'U]/mL Normal <39 [facility] Comment on above: Order Comment: Speci men Type: BLOOD SPECIMENOrdering Facility: [facility] Address: [address] [place] [address] Result Comment: CA 1 25 test methodology used is the Electrochemiluminescence Immunoassay by [employer]. Results obtained with different methods or kits cannot be used interchangeably.The reference interval is based on the 95th percentile of 240 apparently healthy premenopausal and postmenopausal women. At a cutoff value of 65 U/mL, the test sensitivity to distinguish ovarian carcinoma (FIGO stage I to IV) versus benign gynecological disease is 79%, with a specificity of 82%.Reference: Cancer Antigen 125 (CA 125 II) [package insert V 1.0 [place]]. [employer] [facility], [place], [place] (July 2015) Performed By: #### 1 0334-1 ####[facility] LABCLIA [id number] [place] [address] [place] Comprehensive metabolic 2000 panelon 04-25-2025 Albumin [Mass/Vol] 4.5 g/dL Normal 3.9-4.9 [facility] Comment on above: Order Comment: Speci men Type: BLOOD SPECIMENOrdering Facility: [facility] Address: [address] [place] [address] Performed By: #### 1 9123-9, 96450-8 ####[facility] MILLTOWNCLIA [id number] [place] [address] [place] ALP [Catalytic activity/Vol] 72 U/L Normal 34-123 [facility] Comment on above: Order Comment: Speci men Type: BLOOD SPECIMENOrdering Facility: [facility] Address: [address] [place] [address] Performed By: #### 1 9123-9, 72680-1 ####[facility] MILLWNCLIA [id number] [place] [address] [place] ALT [Catalytic activity/Vol] 17 U/L Normal 7-38 [facility] Comment on above: Order Comment: Speci men Type: BLOOD SPECIMENOrdering Facility: [facility] Address: [address] [place] [address] Performed By: #### 1 9123-9, 36279-7 ####[facility] PARKIGGYL[facility] [id number] [place] [address] [place] Anion gap [Moles/Vol] 18 mmol/L High 8-15 [facility] Comment on above: Order Comment: Speci men Type: BLOOD SPECIMENOrdering Facility: [facility] Address: [address] [place] [address] Performed By: #### 1 9123-9, 38690-0 ####[facility] MILLTOWNCLIA [id number] [place] [address] [place] AST [Catalytic activity/Vol] 17 U/L Normal 13-35 [facility] Comment on above: Order Comment: Speci men Type: BLOOD SPECIMENOrdering Facility: [facility] Address: [address] [place] [address] Performed By: #### 1 9123-9, 72102-5 ####[facility] [id number] [place] [address] [place] Bilirubin [Mass/Vol] 0.2 mg/dL Normal 0.2-1.3 [facility] Comment on above: Order Comment: Speci men Type: BLOOD SPECIMENOrdering Facility: [facility] Address: [address] [place] [address] Performed By: #### 1 9123-9, 34948-0 ####[facility] [id number] [place] [address] [place] Calcium [Mass/Vol] 9.4 mg/dL Normal 8.5-10.2 [facility] Comment on above: Order Comment: Speci men Type: BLOOD SPECIMENOrdering Facility: [facility] Address: [address] [place] [address] Performed By: #### 1 9123-9, 27563-7 ####[facility] [id number] [place] [address] [place] Chloride [Moles/Vol] 103 mmol/L Normal 98-107 [facility] Comment on above: Order Comment: Speci men Type: BLOOD SPECIMENOrdering Facility: [facility] Address: [address] [place], [place] [address] Performed By: #### 1 9123-9, 37748-1 ####[facility] [id number] [place] [address] [place] CO2 [Moles/Vol] 17 mmol/L Low 22-30 [facility] Comment on above: Order Comment: Speci men Type: BLOOD SPECIMENOrdering Facility: [facility] Address: [address] [place] [address] Performed By: #### 1 9123-9, 87529-8 ####[facility] [id number] [place] [address] [place] Creatinine [Mass/Vol] 0.90 mg/dL Normal 0.58-0.96 [facility] Comment on above: Order Comment: Speci men Type: BLOOD SPECIMENOrdering Facility: [facility] Address: [address] [place] [address] Performed By: #### 1 9123-9, 41344-0 ####[facility] [id number] [place] [address] [place] eGFRcr SerPlBld CKD-EPI 2020 68 mL/min/1.73m??? Normal >=60 [facility] Comment on above: Order Comment: Speci men Type: BLOOD SPECIMENOrdering Facility: [facility] Address: [address] [place] [address] Result Comment: Ethel mated Glomerular Filtration Rate (eGFR) is calculated using the 2020 CKD-EPI creatinine equation. This equation utilizes serum creatinine, sex, and age as parameters. The creatinine assay has traceable calibration to isotope dilution-mass spectrometry. Refer to KDIGO guidelines for clinical interpretation. In patients with unstable renal function, e.g. those with acute kidney injury, the eGFR may not accurately reflect actual GFR. Performed By: #### 1 9123-9, 11796-5 ####[facility] [id number] [place] [address] [place] Glucose [Mass/Vol] 102 mg/dL High 74-99 [facility] Comment on above: Order Comment: Speci men Type: BLOOD SPECIMENOrdering Facility: [facility] Address: [address] [place] [address] Result Comment: The [place] [employer] (ADA) provides guidance for cutoff values for fasting glucose and random glucose. The ADA defines fasting as no caloric intake for at least 8 hours. Fasting plasma glucose results between 100 to 125 mg/dL indicate increased risk for diabetes (prediabetes).Fasting plasma glucose results greater than or equal to 126 mg/dL meet the criteria for diagnosis of diabetes. In the absence of unequivocal hyperglycemia, results should be confirmed by repeat testing. In a patient with classic symptoms of hyperglycemia or hyperglycemic crisis, random plasma glucose results greater than or equal to 200 mg/dL meet the criteria for diagnosis of diabetes.Reference: Standards of Medical Care in Diabetes 2016, [place] [employer]. Diabetes Care. 2016.39(Suppl 1). Performed By: #### 1 9123-9, ####[facility] [id number] [place] [address] [place] Potassium [Moles/Vol] 4.2 mmol/L Normal 3.7-5.1 [facility] Comment on above: Order Comment: Speci men Type: BLOOD SPECIMENOrdering Facility: [facility] Address: [address] [place] [address] Performed By: #### 1 9123-9, ####[facility] [id number] [place] [address] [place] Protein [Mass/Vol] 7.2 g/dL Normal 6.3-8.0 [facility] Comment on above: Order Comment: Speci men Type: BLOOD SPECIMENOrdering Facility: [facility] Address: [address] [place] [address] Performed By: #### 1 91239, ####[facility] [id number] [place] [address] [place] Sodium [Moles/Vol] 138 mmol/L Normal 136-144 [facility] Comment on above: Order Comment: Speci men Type: BLOOD SPECIMENOrdering Facility: [facility] Address: [address] [place] [address] Performed By: #### 1 91239, ####[facility] ALISATOWNCLIA [id number] [place] [address] [place] Urea nitrogen [Mass/Vol] 14 mg/dL Normal 7- [facility] Comment on above: Order Comment: Speci men Type: BLOOD SPECIMENOrdering Facility: [facility] Address: [address] [place] [address] Performed By: #### 1 9123-9, 61788-4 ####[facility] ALISAGREENFIELDNCLIA [id number] [place] [address] [place] Magnesium SerPl-mCncon 04-25 Magnesium [Mass/Vol] 2.1 mg/dL Normal 1.7-2.3 [facility] Comment on above: Order Comment: Speci men Type: BLOOD SPECIMENOrdering Facility: [facility] Address: [address] [place] [address] Performed By: #### 1 9123-9, 79122-0 ####[facility] PARKNCA [id number] [place] [address] [place] MR/PATAdrien 04-22-2025 MR/PATMIKI [facility] Medical Records Department [address] [place] [address] PAT - Anesthesia 04/22/25 1512 MR#: [id number] Acct: [id number] Name: SAL BAUTISTA Rep #: [id number] : 1950 75 From: Bernard Lowry MD PCP: Dr. 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 When Was Last Pacemaker Check QUESTION #4 FULL TEXT: You/Your Family Experience fever (hyperthermia) with Anesthesia Last Oral Intake Last Oral intake: Last Oral Intake NPO since Meds taken in AM with sips of water? 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 Female Yes 04/22/25 14:45 HX of Motion Sickness No 04/22/25 14:45 HX of N/V After Surgery No 04/22/25 14:45 Non-Smoker Yes 04/22/25 14:45 Duration of Surgery greater No 04/22/25 14:45 than 60 minutes Number of Risk Factors 2 04/22/25 14:45 PONV Score Moderate Risk 04/22/25 14:45 Height Weight Height Weight: Anesthesia: Height Weight Height 5 ft 5 in 01/10/25 10:06 Respiratory Assessment Respiratory Assessment - records section supervisor: Respiratory Tract Infection Hx - records section supervisor Hx Respiratory Tract Infection No 04/22/25 14:45 STOP Sleep Apnea STOP Sleep Apnea - records section supervisor: STOP Sleep Apnea - records section supervisor Hx Hypertension No 04/22/25 14:45 Hx Sleep Apnea No 04/22/25 14:45 CPAP BIPAP Do you snore loudly (louder No 04/22/25 14:45 than talking or can be heard Do you often feel tired/ No 04/22/25 14:45 fatigued/ sleepy during daytime? Has anyone observed you stop No 04/22/25 14:45 breathing during sleep? STOP Results Negative 04/22/25 14:45 QUESTION #5 FULL TEXT : Do you snore loudly (louder than talking or can be heard through closed doors)? 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 Specify any problems Hx of Preganancy in last 3 No 04/22/25 14:45 Months Nurse Filling Out Transfusion NAYANA 04/22/25 14:45 Questions: Date: 04/22/25 04/22/25 14:45 Time: 14:48 04/22/25 14:45 Patient unable to answer at this time (ie. 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 Hx Now Gestational Age (in weeks): EDC: Hx Hx Para Hx Section SAB No 04/22/25 14:45 [facility] Medical History (Updated 04/22/25 @ 14:57 by Gracie Dimas) Alcohol use Arthritis History of flexible sigmoidoscopy History of chemotherapy Wears glasses Cancer Anemia History of IBS Non-smoker Ovarian cancer Blood in stool, nikki Home Medications ???Medication ???Instructions ???Recorded ???Last Taken ???Type loperamide 2 mg capsule 2 mg PO Q1-4H PRN loose stool 05/08 Unknown History dicyclomine 10 mg capsule 10 mg PO TID PRN Abdominal Pain Unknown History ondansetron 8 mg disintegrating 8 mg PO Q8 PRN nausea/vomiting Unknown History tablet prochlorperazine maleate 10 mg 10 mg PO BID PRN nausea and Unknown History tablet (Compazine) vomiting Allergy/AdvReac Type Severity Reaction Status Date / Time No Known Allergies Allergy Verified 04/22/25 14:41 Family History Father CAD (coronary ar (more content not included)... Normal [facility] CBC W Auto Differential pane l (Bld)on 04-20-2025 Basophils (Bld) [#/Vol] 0.04 10*3/uL Normal <0.11 [facility] Comment on above: Order Comment: Speci men Type: BLOOD SPECIMENOrdering Facility: [facility] Address: [address] [place] [address] Performed By: #### 5 7021-8 ####[facility] MILLWIGGYLIA [id number] [place] [address] [place] Basophils/100 WBC (Bld) 1.0 % Normal [facility] Comment on above: Order Comment: Speci men Type: BLOOD SPECIMENOrdering Facility: [facility] Address: [address] [place] [address] Performed By: #### 5 7021-8 ####[facility] [id number] [place] [address] [place] Differential cell count method Nom (Bld) Auto Normal [facility] Comment on above: Order Comment: Speci men Type: BLOOD SPECIMENOrdering Facility: [facility] Address: [address] [place] [address] Performed By: #### 5 7021-8 ####[facility] [id number] [place] [address] [place] Eosinophils (Bld) [#/Vol] 0.05 10*3/uL Normal <0.46 [facility] Comment on above: Order Comment: Speci men Type: BLOOD SPECIMENOrdering Facility: [facility] Address: [address] [place] [address] Performed By: #### 5 7021-8 ####[facility] MILLWNCLIA [id number] [place] [address] [place] Eosinophils/100 WBC (Bld) 1.3 % Normal [facility] Comment on above: Order Comment: Speci men Type: BLOOD SPECIMENOrdering Facility: [facility] Address: [address] [place] [address] Performed By: #### 5 7021-8 ####[facility] PARKNCLIA [id number] [place] [id number] [place] Erythrocyte distribution width (RBC) [Ratio] 18.6 % High 11.5-15.0 [facility] Comment on above: Order Comment: Speci men Type: BLOOD SPECIMENOrdering Facility: [facility] Address: [address] [place] [address] Performed By: #### 5 7021-8 ####[facility] PARKNCLIA [id number] [place] [address] [place] Hematocrit (Bld) [Volume fraction] 25.5 % Low 36.0-46.0 [facility] Comment on above: Order Comment: Speci men Type: BLOOD SPECIMENOrdering Facility: [facility] Address: [address] [place] [address] Performed By: #### 5 7021-8 ####[facility] PARKNCLIA [id number] [place] [address] [place] Hemoglobin (Bld) [Mass/Vol] 8.6 g/dL Low 11.5-15.5 [facility] Comment on above: Order Comment: Speci men Type: BLOOD SPECIMENOrdering Facility: [facility] Address: [address] [place] [address] Performed By: #### 5 7021-8 ####[facility] [id number] [place] [address] [place] Immature granulocytes (Bld) [#/Vol] 10*3/uL Normal <0.10 [facility] Comment on above: Order Comment: Speci men Type: BLOOD SPECIMENOrdering Facility: [facility] Address: [address] [place] [address] Performed By: #### 5 7021-8 ####[facility] PARKNCLIA [id number] [place] [address] [place] Immature granulocytes/100 WBC (Bld) 0.3 % Normal [facility] Comment on above: Order Comment: Speci men Type: BLOOD SPECIMENOrdering Facility: [facility] Address: [address] [place] [address] Performed By: #### 5 7021-8 ####[facility] TORIBIONCDEMETRIO [id number] [place] [address] [place] Lymphocytes (Bld) [#/Vol] 0.90 10*3/uL Low 1.00-4.00 [facility] Comment on above: Order Comment: Speci men Type: BLOOD SPECIMENOrdering Facility: [facility] Address: [address] [place] [address] Performed By: #### 5 7021-8 ####[facility] PARKIGGYBoo [id number] [place] [address] [place] Lymphocytes/100 WBC (Bld) 22.7 % Normal [facility] Comment on above: Order Comment: Speci men Type: BLOOD SPECIMENOrdering Facility: [facility] Address: [address] [place] [address] Performed By: #### 5 7021-8 ####[facility] PARKNCOPALBoo [id number] [place] [address] [place] MCH (RBC) [Entitic mass] 29.0 pg Normal 26.0-34.0 [facility] Comment on above: Order Comment: Speci men Type: BLOOD SPECIMENOrdering Facility: [facility] Address: [address] [place] [address] Performed By: #### 5 7021-8 ####[facility] PARKNCLIA [id number] [place] [address] [place] MCHC (RBC) [Mass/Vol] 33.7 g/dL Normal 30.5-36.0 [facility] Comment on above: Order Comment: Speci men Type: BLOOD SPECIMENOrdering Facility: [facility] Address: [address] [place] [address] Performed By: #### 5 7021-8 ####[facility] ALISAGREENFIELDNCLIA [id number] [place] [address] [place] MCV (RBC) [Entitic vol] 85.9 fL Normal 80.0-100.0 [facility] Comment on above: Order Comment: Speci men Type: BLOOD SPECIMENOrdering Facility: [facility] Address: [address] [place] [address] Performed By: #### 5 7021-8 ####[facility] PARKNCLIA [id number] [place] [address] [place] Monocytes (Bld) [#/Vol] 0.41 10*3/uL Normal <0.87 [facility] Comment on above: Order Comment: Speci men Type: BLOOD SPECIMENOrdering Facility: [facility] Address: [address] [place] [address] Performed By: #### 5 7021-8 ####[facility] [id number] [place] [address] [place] Monocytes/100 WBC (Bld) 10.4 % Normal [facility] Comment on above: Order Comment: Speci men Type: BLOOD SPECIMENOrdering Facility: [facility] Address: [address] [place] [address] Performed By: #### 5 7021-8 ####[facility] [id number] [place] [address] [place] Neutrophils (Bld) [#/Vol] 2.55 10*3/uL Normal 1.45-7.50 [facility] Comment on above: Order Comment: Speci men Type: BLOOD SPECIMENOrdering Facility: [facility] Address: [address] [place] [address] Performed By: #### 5 7021-8 ####[facility] [id number] [place] [address] [place] Neutrophils/100 WBC (Bld) 64.3 % Normal [facility] Comment on above: Order Comment: Speci men Type: BLOOD SPECIMENOrdering Facility: [facility] Address: [address] [place] [address] Performed By: #### 5 7021-8 ####[facility] [id number] [place] [address] [place] Nucleated RBC (Bld) [#/Vol] 10*3/uL Normal <0.01 [facility] Comment on above: Order Comment: Speci men Type: BLOOD SPECIMENOrdering Facility: [facility] Address: [address] [place] [address] Performed By: #### 5 7021-8 ####[facility] [id number] [place] [address] [place] Nucleated RBC/100 WBC (Bld) [Ratio] 0.0 /[address] [facility] Comment on above: Order Comment: Speci men Type: BLOOD SPECIMENOrdering Facility: [facility] Address: [address] [place] [address] Performed By: #### 5 7021-8 ####[facility]ARKNCBL[facility] [id number] [place] [address] [place] Platelet mean volume (Bld) [Entitic vol] 10.0 fL Normal 9.0-12.7 [facility] Comment on above: Order Comment: Speci men Type: BLOOD SPECIMENOrdering Facility: [facility] Address: [address] [place] [address] Performed By: #### 5 7021-8 ####[facility] PARKNCLI [id number] [place] [address] [place] Platelets (Bld) [#/Vol] 42 10*3/uL Low 150-400 [facility] Comment on above: Order Comment: Speci men Type: BLOOD SPECIMENOrdering Facility: [facility] Address: [address] [place] [address] Result Comment: No c lot detected. Performed By: #### 5 7021-8 ####[facility] PARKNCLIA [id number] [place] [address] [place] RBC (Bld) [#/Vol] 2.97 10*6/uL Low 3.90-5.20 [facility] Comment on above: Order Comment: Speci men Type: BLOOD SPECIMENOrdering Facility: [facility] Address: [address] [place] [address] Performed By: #### 5 7021-8 ####[facility] PARKNCLIA [id number] [place] [address] [place] WBC (Bld) [#/Vol] 3.96 10*3/uL Normal 3.70-11.00 [facility] Comment on above: Order Comment: Speci men Type: BLOOD SPECIMENOrdering Facility: [facility] Address: [address] [place] [address] Performed By: #### 5 7021-8 ####[facility] PARKNCLIA [id number] [place] [address] [place] CNOVSPon 04-20-[address] [facility] Cancer Ag125 SerPl-aCncon Cancer Ag 125 Qn 10 [arb'U]/mL Normal <39 [facility] Comment on above: Order Comment: Speci men Type: BLOOD SPECIMENOrdering Facility: [facility] Address: [address] [place] [address] Result Comment: CA 1 25 test methodology used is the Electrochemiluminescence Immunoassay by [employer]. Results obtained with different methods or kits cannot be used interchangeably.The reference interval is based on the 95th percentile of 240 apparently healthy premenopausal and postmenopausal women. At a cutoff value of 65 U/mL, the test sensitivity to distinguish ovarian carcinoma (FIGO stage I to IV) versus benign gynecological disease is 79%, with a specificity of 82%.Reference: Cancer Antigen 125 (CA 125 II) [package insert V 1.0 [place]i]. Ainsley Talisma, [place], [place] (July 2015) Performed By: #### 1 0334-1 ####[facility] LABCLIA [id number] [address] Comprehensive metabolic 2000 panelOrdered By: Natividad Talbot on 04-20-2025 Albumin [Mass/Vol] 4.4 g/dL 3.9 - 4.9 g/dL [facility] ALP [Catalytic activity/Vol] 64 U/L 34 - 123 U/L [facility] ALT [Catalytic activity/Vol] 12 U/L 7 - 38 U/L [facility] Anion gap [Moles/Vol] 13 mmol/L 8 - 15 mmol/L [facility] AST [Catalytic activity/Vol] 16 U/L 13 - 35 U/L [facility] Bilirubin [Mass/Vol] mg/dL Low 0.2 - 1 .3 mg/dL [facility] Calcium [Mass/Vol] 9.5 mg/dL 8.5 - 10. 2 mg/dL [facility] Chloride [Moles/Vol] 103 mmol/L 98 - 10 7 mmol/L [facility] CO2 [Moles/Vol] 21 mmol/L Low 22 - 30 mmol/L [facility] Creatinine [Mass/Vol] 0.89 mg/dL 0.58 - 0.96 mg/dL [facility] GFR/1.73 sq M.predicted among non-blacks MDRD (S/P/Bld) [Vol rate/Area] 69 mL/min/{1.73_m2} - PINF [facility] Comment on above: Estimated Glomerular Filtration Rate (eGFR) is calculated using the 2020 CKD-EPI creatinine equation. This equation utilizes serum creatinine, sex, and age as parameters. The creatinine assay has traceable calibration to isotope dilution-mass spectrometry. Refer to KDIGO guidelines for clinical interpretation. In patients with unstable renal function, e.g. those with acute kidney injury, the eGFR may not accurately reflect actual GFR. Glucose [Mass/Vol] 100 mg/dL High 74 - 99 mg/dL [facility] Comment on above: The [place] Diabete s Association (ADA) provides guidance for cutoff values for fasting glucose and random glucose. The ADA defines fasting as no caloric intake for at least 8 hours. Fasting plasma glucose results between 100 to 125 mg/dL indicate increased risk for diabetes (prediabetes). Fasting plasma glucose results greater than or equal to 126 mg/dL meet the criteria for diagnosis of diabetes. In the absence of unequivocal hyperglycemia, results should be confirmed by repeat testing. In a patient with classic symptoms of hyperglycemia or hyperglycemic crisis, random plasma glucose results greater than or equal to 200 mg/dL meet the criteria for diagnosis of diabetes. Reference: Standards of Medical Care in Diabetes 2016, [place] [employer]. Diabetes Care. 2016.39(Suppl 1). Interpretation and review of laboratory results Abnormal [facility] Potassium [Moles/Vol] 4.4 mmol/L 3.7 - 5.1 mmol/L [facility] Protein [Mass/Vol] 6.7 g/dL 6.3 - 8.0 g/dL [facility] Sodium [Moles/Vol] 137 mmol/L 136 - 144 mmol/L [facility] Urea nitrogen [Mass/Vol] 20 mg/dL 7 - 21 mg/dL [facility] Comprehensive metabolic 2000 panelon 04-20-2025 Albumin [Mass/Vol] 4.4 g/dL Normal 3.9-4.9 [facility] Comment on above: Order Comment: Speci men Type: BLOOD SPECIMENOrdering Facility: [facility] Address: [address] [place] [address] Performed By: #### 2 4323-8 ####[facility] [id number] [place] [address] [place] ALP [Catalytic activity/Vol] 64 U/L Normal 34-123 [facility] Comment on above: Order Comment: Speci men Type: BLOOD SPECIMENOrdering Facility: [facility] Address: [address] [place] [address] Performed By: #### 2 4323-8 ####[facility] [id number] [place] [address] [place] ALT [Catalytic activity/Vol] 12 U/L Normal 7-38 [facility] Comment on above: Order Comment: Speci men Type: BLOOD SPECIMENOrdering Facility: [facility] Address: [address] [place] [address] Performed By: #### 2 4323-8 ####[facility] PATRICIO MILLTOWNCLIA [id number] [place] [address] [place] Anion gap [Moles/Vol] 13 mmol/L Normal 8-15 [facility] Comment on above: Order Comment: Speci men Type: BLOOD SPECIMENOrdering Facility: [facility] Address: [address] [place] [address] Performed By: #### 2 4323-8 ####[facility] MILLTOWNCLIA [id number] [place] [address] [place] AST [Catalytic activity/Vol] 16 U/L Normal 13-35 [facility] Comment on above: Order Comment: Speci men Type: BLOOD SPECIMENOrdering Facility: [facility] Address: [address] [place] [address] Performed By: #### 2 4323-8 ####[facility] MILLTOWNCLIA [id number] [place] [address] [place] Bilirubin [Mass/Vol] mg/dL Low 0.2-1.3 [facility] Comment on above: Order Comment: Speci men Type: BLOOD SPECIMENOrdering Facility: [facility] Address: [address] [place] [address] Performed By: #### 2 4323-8 ####[facility] MILLTOWNCLIA [id number] [place] [address] [place] Calcium [Mass/Vol] 9.5 mg/dL Normal 8.5-10.2 [facility] Comment on above: Order Comment: Speci men Type: BLOOD SPECIMENOrdering Facility: [facility] Address: [address] [place] [address] Performed By: #### 2 4323-8 ####[facility] MILLTOWNCLIA [id number] [place] [address] [place] Chloride [Moles/Vol] 103 mmol/L Normal 98-107 [facility] Comment on above: Order Comment: Speci men Type: BLOOD SPECIMENOrdering Facility: [facility] Address: [address] [place] [address] Performed By: #### 2 4323-8 ####[facility] [id number] [place] [address] [place] CO2 [Moles/Vol] 21 mmol/L Low 22-30 [facility] Comment on above: Order Comment: Speci men Type: BLOOD SPECIMENOrdering Facility: [facility] Address: [address] [place] [address] Performed By: #### 2 4323-8 ####[facility] [id number] [place] [address] [place] Creatinine [Mass/Vol] 0.89 mg/dL Normal 0.58-0.96 [facility] Comment on above: Order Comment: Speci men Type: BLOOD SPECIMENOrdering Facility: [facility] Address: [address] [place] [address] Performed By: #### 2 4323-8 ####[facility] [id number] [place] [address] [place] eGFRcr SerPlBld CKD-EPI 2020 69 mL/min/1.73m??? Normal >=60 [facility] Comment on above: Order Comment: Speci men Type: BLOOD SPECIMENOrdering Facility: [facility] Address: [address] [place] [address] Result Comment: Ethel mated Glomerular Filtration Rate (eGFR) is calculated using the 2020 CKD-EPI creatinine equation. This equation utilizes serum creatinine, sex, and age as parameters. The creatinine assay has traceable calibration to isotope dilution-mass spectrometry. Refer to KDIGO guidelines for clinical interpretation. In patients with unstable renal function, e.g. those with acute kidney injury, the eGFR may not accurately reflect actual GFR. Performed By: #### 2 4323-8 ####[facility] ALISATOWNCLIA [id number] [place] [address] [place] Glucose [Mass/Vol] 100 mg/dL High 74-99 [facility] Comment on above: Order Comment: Speckimberly men Type: BLOOD SPECIMENOrdering Facility: [facility] Address: [address] [place] [address] Result Comment: The [place] Diabetes Association (ADA) provides guidance for cutoff values for fasting glucose and random glucose. The ADA defines fasting as no caloric intake for at least 8 hours. Fasting plasma glucose results between 100 to 125 mg/dL indicate increased risk for diabetes (prediabetes).Fasting plasma glucose results greater than or equal to 126 mg/dL meet the criteria for diagnosis of diabetes. In the absence of unequivocal hyperglycemia, results should be confirmed by repeat testing. In a patient with classic symptoms of hyperglycemia or hyperglycemic crisis, random plasma glucose results greater than or equal to 200 mg/dL meet the criteria for diagnosis of diabetes.Reference: Standards of Medical Care in Diabetes 2016, [place] [employer]. Diabetes Care. 2016.39(Suppl 1). Performed By: #### 2 4323-8 ####[facility] MILLTOWNCLIA [id number] [place] [address] [place] Potassium [Moles/Vol] 4.4 mmol/L Normal 3.7-5.1 [facility] Comment on above: Order Comment: Cheng men Type: BLOOD SPECIMENOrdering Facility: [facility] Address: [address] [place] [address] Performed By: #### 2 4323-8 ####[facility] ALISATOWNCLIA [id number] [place] [address] [place] Protein [Mass/Vol] 6.7 g/dL Normal 6.3-8.0 [facility] Comment on above: Order Comment: Speci men Type: BLOOD SPECIMENOrdering Facility: [facility] Address: [address] [place] [address] Performed By: #### 2 4323-8 ####[facility] PARKKATERIN [id number] [place] [address] [place] Sodium [Moles/Vol] 137 mmol/L Normal 136-144 [facility] Comment on above: Order Comment: Speci men Type: BLOOD SPECIMENOrdering Facility: [facility] Address: [address] [place] [address] Performed By: #### 2 4323-8 ####[facility] [id number] [place] [address] [place] Urea nitrogen [Mass/Vol] 20 mg/dL Normal 7-21 [facility] Comment on above: Order Comment: Speci men Type: BLOOD SPECIMENOrdering Facility: [facility] Address: [address] [place] [address] Performed By: #### 2 4323-8 ####[facility] [id number] [place] [address] [place] CBC W Auto Differential pane l (Bld)on 04-13-2025 Basophils (Bld) [#/Vol] 0.04 10*3/uL Normal <0.11 [facility] Comment on above: Order Comment: Speci men Type: BLOOD SPECIMENOrdering Facility: [facility] Address: [address] [place] [address] Performed By: #### 5 7021-8 ####[facility] [id number] [address] [place] Basophils/100 WBC (Bld) 1.3 % Normal [facility] Comment on above: Order Comment: Speci men Type: BLOOD SPECIMENOrdering Facility: [facility] Address: [address] [place], [place] [address] Performed By: #### 5 7021-8 ####[facility] MILLWIGGYLIA [id number] [place] [address] [place] Differential cell count method Nom (Bld) Auto Normal [facility] Comment on above: Order Comment: Speci men Type: BLOOD SPECIMENOrdering Facility: [facility] Address: [address] [place] [address] Performed By: #### 5 7021-8 ####[facility] PARKIGGYLIA [id number] [place] [address] [place] Eosinophils (Bld) [#/Vol] 0.07 10*3/uL Normal <0.46 [facility] Comment on above: Order Comment: Speci men Type: BLOOD SPECIMENOrdering Facility: [facility] Address: [address] [place] [address] Performed By: #### 5 7021-8 ####[facility] PARKIGGYLIA [id number] [place] [address] [place] Eosinophils/100 WBC (Bld) 2.3 % Normal [facility] Comment on above: Order Comment: Speci men Type: BLOOD SPECIMENOrdering Facility: [facility] Address: [address] [place] [address] Performed By: #### 5 7021-8 ####[facility] PARKIGGYLIA [id number] [place] [address] [place] Erythrocyte distribution width (RBC) [Ratio] 18.5 % High 11.5-15.0 [facility] Comment on above: Order Comment: Speci men Type: BLOOD SPECIMENOrdering Facility: [facility] Address: [address] [place] [address] Performed By: #### 5 7021-8 ####[facility] PARKNCLIA [id number] [place] [address] [place] Hematocrit (Bld) [Volume fraction] 26.8 % Low 36.0-46.0 [facility] Comment on above: Order Comment: Speci men Type: BLOOD SPECIMENOrdering Facility: [facility] Address: [address] [place] [address] Performed By: #### 5 7021-8 ####[facility] [id number] [place] [address] [place] Hemoglobin (Bld) [Mass/Vol] 9.2 g/dL Low 11.5-15.5 [facility] Comment on above: Order Comment: Speci men Type: BLOOD SPECIMENOrdering Facility: [facility] Address: [address] [place] [address] Performed By: #### 5 7021-8 ####[facility] [id number] [place] [address] [place] Immature granulocytes (Bld) [#/Vol] 0.03 10*3/uL Normal <0.10 [facility] Comment on above: Order Comment: Speci men Type: BLOOD SPECIMENOrdering Facility: [facility] Address: [address] [place] [address] Performed By: #### 5 7021-8 ####[facility] PARKNCLIA [id number] [place] [address] [place] Immature granulocytes/100 WBC (Bld) 1.0 % Normal [facility] Comment on above: Order Comment: Speci men Type: BLOOD SPECIMENOrdering Facility: [facility] Address: [address] [place] [address] Performed By: #### 5 7021-8 ####[facility] PARKNCLIA [id number] [place] [address] [place] Lymphocytes (Bld) [#/Vol] 0.84 10*3/uL Low 1.00-4.00 [facility] Comment on above: Order Comment: Speci men Type: BLOOD SPECIMENOrdering Facility: [facility] Address: [address] [place] [address] Performed By: #### 5 7021-8 ####[facility] ALISASANDRA [id number] [place] [address] [place] Lymphocytes/100 WBC (Bld) 27.8 % Normal [facility] Comment on above: Order Comment: Speci men Type: BLOOD SPECIMENOrdering Facility: [facility] Address: [address] [place] [address] Performed By: #### 5 7021-8 ####[facility] PARKNCDEMETRIO [id number] [place] [address] [place] MCH (RBC) [Entitic mass] 29.6 pg Normal 26.0-34.0 [facility] Comment on above: Order Comment: Speci men Type: BLOOD SPECIMENOrdering Facility: [facility] Address: [address] [place] [address] Performed By: #### 5 7021-8 ####[facility] PARKNCA [id number] [place] [address] [place] MCHC (RBC) [Mass/Vol] 34.3 g/dL Normal 30.5-36.0 [facility] Comment on above: Order Comment: Speci men Type: BLOOD SPECIMENOrdering Facility: [facility] Address: [address] [place] [address] Performed By: #### 5 7021-8 ####[facility] PARKNCLIA [id number] [place] [address] [place] MCV (RBC) [Entitic vol] 86.2 fL Normal 80.0-100.0 [facility] Comment on above: Order Comment: Speci men Type: BLOOD SPECIMENOrdering Facility: [facility] Address: [address] [place] [address] Performed By: #### 5 7021-8 ####[facility] MILLTOWNCLIA [id number] [place] [address] [place] Monocytes (Bld) [#/Vol] 0.27 10*3/uL Normal <0.87 [facility] Comment on above: Order Comment: Speci men Type: BLOOD SPECIMENOrdering Facility: [facility] Address: [address] [place] [address] Performed By: #### 5 7021-8 ####[facility] [id number] [place] [address] [place] Monocytes/100 WBC (Bld) 8.9 % Normal [facility] Comment on above: Order Comment: Speci men Type: BLOOD SPECIMENOrdering Facility: [facility] Address: [address] [place] [address] Performed By: #### 5 7021-8 ####[facility] [id number] [place] [address] [place] Neutrophils (Bld) [#/Vol] 1.77 10*3/uL Normal 1.45-7.50 [facility] Comment on above: Order Comment: Speci men Type: BLOOD SPECIMENOrdering Facility: [facility] Address: [address] [place] [address] Performed By: #### 5 7021-8 ####[facility]ITALL[facility] [id number] [place] [address] [place] Neutrophils/100 WBC (Bld) 58.7 % Normal [facility] Comment on above: Order Comment: Speci men Type: BLOOD SPECIMENOrdering Facility: [facility] Address: [address] [place] [address] Performed By: #### 5 7021-8 ####[facility] PARKNCLIA [id number] [place] [address] [place] Nucleated RBC (Bld) [#/Vol] 10*3/uL Normal <0.01 [facility] Comment on above: Order Comment: Speci men Type: BLOOD SPECIMENOrdering Facility: [facility] Address: [address] [place] [address] Performed By: #### 5 7021-8 ####[facility] [id number] [place] [address] [place] Nucleated RBC/100 WBC (Bld) [Ratio] 0.0 /[address] [facility] Comment on above: Order Comment: Speci men Type: BLOOD SPECIMENOrdering Facility: [facility] Address: [address] [place] [address] Performed By: #### 5 7021-8 ####[facility]NCBL[facility] [id number] [place] [address] [place] Platelet mean volume (Bld) [Entitic vol] 10.0 fL Normal 9.0-12.7 [facility] Comment on above: Order Comment: Speci men Type: BLOOD SPECIMENOrdering Facility: [facility] Address: [address] [place] [address] Performed By: #### 5 7021-8 ####[facility] [id number] [place] [address] [place] Platelets (Bld) [#/Vol] 23 10*3/uL Low 150-400 [facility] Comment on above: Order Comment: Speci men Type: BLOOD SPECIMENOrdering Facility: [facility] Address: [address] [place] [address] Result Comment: No c lot detected. Performed By: #### 5 7021-8 ####[facility] [id number] [place] [address] [place] RBC (Bld) [#/Vol] 3.11 10*6/uL Low 3.90-5.20 [facility] Comment on above: Order Comment: Speci men Type: BLOOD SPECIMENOrdering Facility: [facility] Address: [address] [place] [address] Performed By: #### 5 7021-8 ####[facility] MILLWNCLIA [id number] [place] [address] [place] WBC (Bld) [#/Vol] 3.02 10*3/uL Low 3.70-11.00 [facility] Comment on above: Order Comment: Speci men Type: BLOOD SPECIMENOrdering Facility: [facility] Address: [address] [place] [address] Performed By: #### 5 7021-8 ####[facility]ITALWNCL[facility] [id number] [place] [address] [place] CNPNon 04-13-[address] [facility] CBC W Auto Differential pane l (Bld)on 04-06-2025 Basophils (Bld) [#/Vol] 10*3/uL Normal <0.11 [facility] Comment on above: Order Comment: Speci men Type: BLOOD SPECIMENOrdering Facility: [facility] Address: [address] [place] [address] Performed By: #### 5 7021-8 ####[facility] PARKIGGYLIA [id number] [place] [address] [place] Basophils/100 WBC (Bld) 0.7 % Normal [facility] Comment on above: Order Comment: Speci men Type: BLOOD SPECIMENOrdering Facility: [facility] Address: [address] [place] [address] Performed By: #### 5 7021-8 ####[facility] MILLWNCLIA [id number] [place] [address] [place] Differential cell count method Nom (Bld) Auto Normal [facility] Comment on above: Order Comment: Speci men Type: BLOOD SPECIMENOrdering Facility: [facility] Address: [address] [place] [address] Performed By: #### 5 7021-8 ####[facility] ALISAJULIUSOPALBoo [id number] [place] [address] [place] Eosinophils (Bld) [#/Vol] 0.04 10*3/uL Normal <0.46 [facility] Comment on above: Order Comment: Speci men Type: BLOOD SPECIMENOrdering Facility: [facility] Address: [address] [place] [address] Performed By: #### 5 7021-8 ####[facility] PARKIGGYBoo [id number] [place] [address] [place] Eosinophils/100 WBC (Bld) 1.4 % Normal [facility] Comment on above: Order Comment: Speci men Type: BLOOD SPECIMENOrdering Facility: [facility] Address: [address] [place] [address] Performed By: #### 5 7021-8 ####[facility] PARKNCOPALA [id number] [place] [address] [place] Erythrocyte distribution width (RBC) [Ratio] 19.1 % High 11.5-15.0 [facility] Comment on above: Order Comment: Speci men Type: BLOOD SPECIMENOrdering Facility: [facility] Address: [address] [place] [address] Performed By: #### 5 7021-8 ####[facility] PARKNCLIA [id number] [place] [address] [place] Hematocrit (Bld) [Volume fraction] 28.4 % Low 36.0-46.0 [facility] Comment on above: Order Comment: Speci men Type: BLOOD SPECIMENOrdering Facility: [facility] Address: [address] [place] [address] Performed By: #### 5 7021-8 ####[facility]PITALWNCLIA [id number] [place] [address] [place] Hemoglobin (Bld) [Mass/Vol] 9.4 g/dL Low 11.5-15.5 [facility] Comment on above: Order Comment: Speci men Type: BLOOD SPECIMENOrdering Facility: [facility] Address: [address] [place] [address] Performed By: #### 5 7021-8 ####[facility]PITALLIA [id number] [place] [address] [place] Immature granulocytes (Bld) [#/Vol] 10*3/uL Normal <0.10 [facility] Comment on above: Order Comment: Speci men Type: BLOOD SPECIMENOrdering Facility: [facility] Address: [address] [place] [address] Performed By: #### 5 7021-8 ####[facility]ITALA [id number] [place] [address] [place] Immature granulocytes/100 WBC (Bld) 0.4 % Normal [facility] Comment on above: Order Comment: Speci men Type: BLOOD SPECIMENOrdering Facility: [facility] Address: [address] [place] [address] Performed By: #### 5 7021-8 ####[facility]ITALL[facility] [id number] [place] [address] [place] Lymphocytes (Bld) [#/Vol] 0.66 10*3/uL Low 1.00-4.00 [facility] Comment on above: Order Comment: Speci men Type: BLOOD SPECIMENOrdering Facility: [facility] Address: [address] [place] [address] Performed By: #### 5 7021-8 ####[facility] PARKNCLIA [id number] [place] [address] [place] Lymphocytes/100 WBC (Bld) 23.2 % Normal [facility] Comment on above: Order Comment: Speci men Type: BLOOD SPECIMENOrdering Facility: [facility] Address: [address] [place] [address] Performed By: #### 5 7021-8 ####[facility] [id number] [place] [address] [place] MCH (RBC) [Entitic mass] 29.1 pg Normal 26.0-34.0 [facility] Comment on above: Order Comment: Speci men Type: BLOOD SPECIMENOrdering Facility: [facility] Address: [address] [place] [address] Performed By: #### 5 7021-8 ####[facility] [id number] [place] [address] [place] MCHC (RBC) [Mass/Vol] 33.1 g/dL Normal 30.5-36.0 [facility] Comment on above: Order Comment: Speci men Type: BLOOD SPECIMENOrdering Facility: [facility] Address: [address] [place] [address] Performed By: #### 5 7021-8 ####[facility]ARKNCBL[facility] [id number] [place] [address] [place] MCV (RBC) [Entitic vol] 87.9 fL Normal 80.0-100.0 [facility] Comment on above: Order Comment: Speci men Type: BLOOD SPECIMENOrdering Facility: [facility] Address: [address] [place] [address] Performed By: #### 5 7021-8 ####[facility]NC[facility] [id number] [place] [address] [place] Monocytes (Bld) [#/Vol] 0.20 10*3/uL Normal <0.87 [facility] Comment on above: Order Comment: Speci men Type: BLOOD SPECIMENOrdering Facility: [facility] Address: [address] [place] [address] Performed By: #### 5 7021-8 ####[facility] ALISAGREENFIELDCALVIN [id number] [place] [address] [place] Monocytes/100 WBC (Bld) 7.0 % Normal [facility] Comment on above: Order Comment: Speci men Type: BLOOD SPECIMENOrdering Facility: [facility] Address: [address] [place] [address] Performed By: #### 5 7021-8 ####[facility]NC[facility] [id number] [place] [address] [place] Neutrophils (Bld) [#/Vol] 1.92 10*3/uL Normal 1.45-7.50 [facility] Comment on above: Order Comment: Speci men Type: BLOOD SPECIMENOrdering Facility: [facility] Address: [address] [place] [address] Performed By: #### 5 7021-8 ####[facility] [id number] [place] [address] [place] Neutrophils/100 WBC (Bld) 67.3 % Normal [facility] Comment on above: Order Comment: Speci men Type: BLOOD SPECIMENOrdering Facility: [facility] Address: [address] [place] [address] Performed By: #### 5 7021-8 ####[facility]ITALA [id number] [place] [address] [place] Nucleated RBC (Bld) [#/Vol] 10*3/uL Normal <0.01 [facility] Comment on above: Order Comment: Speci men Type: BLOOD SPECIMENOrdering Facility: [facility] Address: [address] [place] [address] Performed By: #### 5 7021-8 ####[facility] BAMLIA [id number] [place] [address] [place] Nucleated RBC/100 WBC (Bld) [Ratio] 0.0 /[address] [facility] Comment on above: Order Comment: Speci men Type: BLOOD SPECIMENOrdering Facility: [facility] Address: [address] [place] [address] Performed By: #### 5 7021-8 ####[facility] PARKKATERINA [id number] [place] [address] [place] Platelet mean volume (Bld) [Entitic vol] 9.0 fL Normal 9.0-12.7 [facility] Comment on above: Order Comment: Speci men Type: BLOOD SPECIMENOrdering Facility: [facility] Address: [address] [place] [address] Performed By: #### 5 7021-8 ####[facility] PARKIGGYA [id number] [place] [address] [place] Platelets (Bld) [#/Vol] 114 10*3/uL Low 150-400 [facility] Comment on above: Order Comment: Speci men Type: BLOOD SPECIMENOrdering Facility: [facility] Address: [address] [place] [address] Performed By: #### 5 7021-8 ####[facility] PARKKATERINA [id number] [place] [address] [place] RBC (Bld) [#/Vol] 3.23 10*6/uL Low 3.90-5.20 [facility] Comment on above: Order Comment: Speci men Type: BLOOD SPECIMENOrdering Facility: [facility] Address: [address] [place] [address] Performed By: #### 5 7021-8 ####[facility] PARKNCLIA [id number] [place] [address] [place] WBC (Bld) [#/Vol] 2.85 10*3/uL Low 3.70-11.00 [facility] Comment on above: Order Comment: Speci men Type: BLOOD SPECIMENOrdering Facility: [facility] Address: [address] [place] [address] Performed By: #### 5 7021-8 ####[facility] MILLWIGGYLIA [id number] [place] [address] [place] CNPNon 03-31-[address] [facility] CBC W Auto Differential pane l (Bld)on 03-30-2025 Basophils (Bld) [#/Vol] 0.03 10*3/uL Normal <0.11 [facility] Comment on above: Order Comment: Speci men Type: BLOOD SPECIMENOrdering Facility: [facility] Address: [address] [place] [address] Performed By: #### 5 7021-8, 02420-5 ####[facility] PARKKATERINA [id number] [place] [address] [place] Basophils/100 WBC (Bld) 1.0 % Normal [facility] Comment on above: Order Comment: Speci men Type: BLOOD SPECIMENOrdering Facility: [facility] Address: [address] [place] [address] Performed By: #### 5 7021-8, 03999-4 ####[facility] SUNDARWNCLIA [id number] [place] [address] [place] Differential cell count method Nom (Bld) Auto Normal [facility] Comment on above: Order Comment: Speci men Type: BLOOD SPECIMENOrdering Facility: [facility] Address: [address] [place] [address] Performed By: #### 5 7021-8, 85230-6 ####[facility] MILLNEALA [id number] [place] [id number] [place] Eosinophils (Bld) [#/Vol] 0.04 10*3/uL Normal <0.46 [facility] Comment on above: Order Comment: Speci men Type: BLOOD SPECIMENOrdering Facility: [facility] Address: [address] [place] [address] Performed By: #### 5 7021-8, 36493-5 ####[facility] ALISAEDGARWKATERINA [id number] [place] [address] [place] Eosinophils/100 WBC (Bld) 1.3 % Normal [facility] Comment on above: Order Comment: Speci men Type: BLOOD SPECIMENOrdering Facility: [facility] Address: [address] [place] [address] Performed By: #### 5 7021-8, 21744-4 ####[facility] HOSPITALMOLINA [id number] [place] [address] [place] Erythrocyte distribution width (RBC) [Ratio] 19.8 % High 11.5-15.0 [facility] Comment on above: Order Comment: Speci men Type: BLOOD SPECIMENOrdering Facility: [facility] Address: [address] [place] [address] Performed By: #### 5 7021-8, 98090-2 ####[facility] ALISAMOLINA [id number] [place] [address] [place] Hematocrit (Bld) [Volume fraction] 28.9 % Low 36.0-46.0 [facility] Comment on above: Order Comment: Speci men Type: BLOOD SPECIMENOrdering Facility: [facility] Address: [address] [place] [address] Performed By: #### 5 7021-8, 75652-8 ####[facility] HOSPITALEDGARNCLIA [id number] [place] [address] [place] Hemoglobin (Bld) [Mass/Vol] 9.5 g/dL Low 11.5-15.5 [facility] Comment on above: Order Comment: Speci men Type: BLOOD SPECIMENOrdering Facility: [facility] Address: [address] [place] [address] Performed By: #### 5 7021-8, 75025-7 ####[facility] [id number] [place] [address] [place] Immature granulocytes (Bld) [#/Vol] 10*3/uL Normal <0.10 [facility] Comment on above: Order Comment: Speci men Type: BLOOD SPECIMENOrdering Facility: [facility] Address: [address] [place] [address] Performed By: #### 5 7021-8, 69893-6 ####[facility] [id number] [place] [address] [place] Immature granulocytes/100 WBC (Bld) 0.3 % Normal [facility] Comment on above: Order Comment: Speci men Type: BLOOD SPECIMENOrdering Facility: [facility] Address: [address] [place] [address] Performed By: #### 5 7021-8, 01037-8 ####[facility] [id number] [place] [address] [place] Lymphocytes (Bld) [#/Vol] 0.59 10*3/uL Low 1.00-4.00 [facility] Comment on above: Order Comment: Speci men Type: BLOOD SPECIMENOrdering Facility: [facility] Address: [address] [place] [address] Performed By: #### 5 7021-8, 86971-3 ####[facility] [id number] [place] [address] [place] Lymphocytes/100 WBC (Bld) 19.5 % Normal [facility] Comment on above: Order Comment: Speci men Type: BLOOD SPECIMENOrdering Facility: [facility] Address: [address] [place] [address] Performed By: #### 5 7021-8, 04020-9 ####[facility] PATRICIO CUELLARRomeliaNCDEMETRIO [id number] [address] [place] MCH (RBC) [Entitic mass] 29.1 pg Normal 26.0-34.0 [facility] Comment on above: Order Comment: Speci men Type: BLOOD SPECIMENOrdering Facility: [facility] Address: [address] [place] [address] Performed By: #### 5 7021-8, 72112-7 ####[facility] ALISAGREENFIELDCALVIN [id number] [address] [place] MCHC (RBC) [Mass/Vol] 32.9 g/dL Normal 30.5-36.0 [facility] Comment on above: Order Comment: Speci men Type: BLOOD SPECIMENOrdering Facility: [facility] Address: [address] [place] [address] Performed By: #### 5 7021-8, 00491-6 ####[facility] PARKNCOPALA [id number] [address] [place] MCV (RBC) [Entitic vol] 88.4 fL Normal 80.0-100.0 [facility] Comment on above: Order Comment: Speci men Type: BLOOD SPECIMENOrdering Facility: [facility] Address: [address] [place] [address] Performed By: #### 5 7021-8, 90813-4 ####[facility] PARKNCOPALA [id number] [place] [address] [place] Monocytes (Bld) [#/Vol] 0.29 10*3/uL Normal <0.87 [facility] Comment on above: Order Comment: Speci men Type: BLOOD SPECIMENOrdering Facility: [facility] Address: [address] [place] [address] Performed By: #### 5 7021-8, 89566-3 ####[facility] LUIGI [id number] [place] [address] [place] Monocytes/100 WBC (Bld) 9.6 % Normal [facility] Comment on above: Order Comment: Speci men Type: BLOOD SPECIMENOrdering Facility: [facility] Address: [address] [place] [address] Performed By: #### 5 7021-8, 84976-1 ####[facility] ALISARomeliaNCOPALA [id number] [place] [address] [place] Neutrophils (Bld) [#/Vol] 2.06 10*3/uL Normal 1.45-7.50 [facility] Comment on above: Order Comment: Speci men Type: BLOOD SPECIMENOrdering Facility: [facility] Address: [address] [place] [address] Performed By: #### 5 7021-8, 05718-6 ####[facility] ALISAGREENFIELDIGGYOPALA [id number] [place] [address] [place] Neutrophils/100 WBC (Bld) 68.3 % Normal [facility] Comment on above: Order Comment: Speci men Type: BLOOD SPECIMENOrdering Facility: [facility] Address: [address] [place] [address] Performed By: #### 5 7021-8, 78349-5 ####[facility] ALISAGREENFIELDNCLIA [id number] [place] [address] [place] Nucleated RBC (Bld) [#/Vol] 10*3/uL Normal <0.01 [facility] Comment on above: Order Comment: Speci men Type: BLOOD SPECIMENOrdering Facility: [facility] Address: [address] [place] [address] Performed By: #### 5 7021-8, 25525-3 ####[facility] TORIBIONCLIA [id number] [place] [address] [place] Nucleated RBC/100 WBC (Bld) [Ratio] 0.0 /[address] [facility] Comment on above: Order Comment: Speci men Type: BLOOD SPECIMENOrdering Facility: [facility] Address: [address] [place] [address] Performed By: #### 5 7021-8, 23614-1 ####[facility] PARKCALVIN [id number] [place] [address] [place] Platelet mean volume (Bld) [Entitic vol] 9.4 fL Normal 9.0-12.7 [facility] Comment on above: Order Comment: Speci men Type: BLOOD SPECIMENOrdering Facility: [facility] Address: [address] [place] [address] Performed By: #### 5 7021-8, 63317-0 ####[facility] PARKNCA [id number] [place] [address] [place] Platelets (Bld) [#/Vol] 196 10*3/uL Normal 150-400 [facility] Comment on above: Order Comment: Speci men Type: BLOOD SPECIMENOrdering Facility: [facility] Address: [address] [place] [address] Performed By: #### 5 7021-8, 57627-3 ####[facility]PITALLIA [id number] [place] [address] [place] RBC (Bld) [#/Vol] 3.27 10*6/uL Low 3.90-5.20 [facility] Comment on above: Order Comment: Speci men Type: BLOOD SPECIMENOrdering Facility: [facility] Address: [address] [place] [address] Performed By: #### 5 7021-8, 31020-2 ####[facility] PARKNCLIA [id number] [place] [address] [place] WBC (Bld) [#/Vol] 3.02 10*3/uL Low 3.70-11.00 [facility] Comment on above: Order Comment: Speci men Type: BLOOD SPECIMENOrdering Facility: [facility] Address: [address] [place] [address] Performed By: #### 5 7021-8, 11325-9 ####[facility] [id number] [place] [address] [place] Cancer Ag125 SerPl-aCncon Cancer Ag 125 Qn 12 [arb'U]/mL Normal <39 [facility] Comment on above: Order Comment: Speci [facility] Type: BLOOD SPECIMENOrdering Facility: [facility] Address: [address] [place] [address] Result Comment: CA 1 25 test methodology used is the Electrochemiluminescence Immunoassay by [employer]. Results obtained with different methods or kits cannot be used interchangeably.The reference interval is based on the 95th percentile of 240 apparently healthy premenopausal and postmenopausal women. At a cutoff value of 65 U/mL, the test sensitivity to distinguish ovarian carcinoma (FIGO stage I to IV) versus benign gynecological disease is 79%, with a specificity of 82%.Reference: Cancer Antigen 125 (CA 125 II) [package insert V 1.0 [place]]. [employer], [place], [place] (July 2015) Performed By: #### 1 0334-1, 2276-4, 21224-2 ####[facility] LABCLIA [id number] [place] [id number] [place] Comprehensive metabolic 2000 panelon 03-30-2025 Albumin [Mass/Vol] 4.3 g/dL Normal 3.9-4.9 [facility] Comment on above: Order Comment: Speci men Type: BLOOD SPECIMENOrdering Facility: [facility] Address: [address] [place] [address] Performed By: #### 2 4323-8, ####[facility] PATRICIO MILLTOWNCLIA [id number] [place] [address] [place] ALP [Catalytic activity/Vol] 66 U/L Normal 34-123 [facility] Comment on above: Order Comment: Speci men Type: BLOOD SPECIMENOrdering Facility: [facility] Address: [address] [place] [address] Performed By: #### 2 4323-8, ####[facility] MILLTOWNCLIA [id number] [place] [address] [place] ALT [Catalytic activity/Vol] 10 U/L Normal 7-38 [facility] Comment on above: Order Comment: Speci men Type: BLOOD SPECIMENOrdering Facility: [facility] Address: [address] [place] [address] Performed By: #### 2 4323-8, ####[facility]OSPITALWNCLIA [id number] [place] [address] [place] Anion gap [Moles/Vol] 13 mmol/L Normal 8-15 [facility] Comment on above: Order Comment: Speci men Type: BLOOD SPECIMENOrdering Facility: [facility] Address: [address] [place] [address] Performed By: #### 2 4323-8, ####[facility] MILLTOWNCLIA [id number] [place] [address] [place] AST [Catalytic activity/Vol] 17 U/L Normal 13-35 [facility] Comment on above: Order Comment: Speci men Type: BLOOD SPECIMENOrdering Facility: [facility] Address: [address] [place] [address] Performed By: #### 2 4323-8, 87339-8 ####[facility] MILLTOWNCLIA [id number] [place] [address] [place] Bilirubin [Mass/Vol] 0.2 mg/dL Normal 0.2-1.3 [facility] Comment on above: Order Comment: Speci men Type: BLOOD SPECIMENOrdering Facility: [facility] Address: [address] [place] [address] Performed By: #### 2 4323-8, ####[facility] MILLTOWIGGYLIA [id number] [place] [address] [place] Calcium [Mass/Vol] 9.6 mg/dL Normal 8.5-10.2 [facility] Comment on above: Order Comment: Speci men Type: BLOOD SPECIMENOrdering Facility: [facility] Address: [address] [place] [address] Performed By: #### 2 4323-8, ####[facility] HOSPITALWIGGYLIBoo [id number] [place] [address] [place] Chloride [Moles/Vol] 102 mmol/L Normal 98-107 [facility] Comment on above: Order Comment: Speci men Type: BLOOD SPECIMENOrdering Facility: [facility] Address: [address] [place] [address] Performed By: #### 2 4323-8, ####[facility] HOSPITALWKATERINA [id number] [place] [address] [place] CO2 [Moles/Vol] 20 mmol/L Low 22-30 [facility] Comment on above: Order Comment: Speci men Type: BLOOD SPECIMENOrdering Facility: [facility] Address: [address] [place] [address] Performed By: #### 2 4323-8, ####[facility] HOSPITALWNCLIA [id number] [place] [address] [place] Creatinine [Mass/Vol] 1.00 mg/dL High 0.58-0.96 [facility] Comment on above: Order Comment: Cheng cooley Type: BLOOD SPECIMENOrdering Facility: [facility] Address: [address] [place] [address] Performed By: #### 2 4323-8, ####[facility] PARKNCLI [id number] [place] [address] [place] Creatinine and Glomerular filtration rate.predicted panel (S/P/Bld) 60 mL/min/1.73m??? Normal >=60 [facility] Comment on above: Order Comment: Cheng cooley Type: BLOOD SPECIMENOrdering Facility: [facility] Address: [address] [place] [address] Result Comment: Ethel mated Glomerular Filtration Rate (eGFR) is calculated using the 2020 CKD-EPI creatinine equation. This equation utilizes serum creatinine, sex, and age as parameters. The creatinine assay has traceable calibration to isotope dilution-mass spectrometry. Refer to KDIGO guidelines for clinical interpretation. In patients with unstable renal function, e.g. those with acute kidney injury, the eGFR may not accurately reflect actual GFR. Performed By: #### 2 4323-8, ####[facility]ITALA [id number] [place] [address] [place] Glucose [Mass/Vol] 105 mg/dL High 74-99 [facility] Comment on above: Order Comment: Cheng cooley Type: BLOOD SPECIMENOrdering Facility: [facility] Address: [address] [place] [address] Result Comment: The [place] Diabetes Association (ADA) provides guidance for cutoff values for fasting glucose and random glucose. The ADA defines fasting as no caloric intake for at least 8 hours. Fasting plasma glucose results between 100 to 125 mg/dL indicate increased risk for diabetes (prediabetes).Fasting plasma glucose results greater than or equal to 126 mg/dL meet the criteria for diagnosis of diabetes. In the absence of unequivocal hyperglycemia, results should be confirmed by repeat testing. In a patient with classic symptoms of hyperglycemia or hyperglycemic crisis, random plasma glucose results greater than or equal to 200 mg/dL meet the criteria for diagnosis of diabetes.Reference: Standards of Medical Care in Diabetes 2016, [place] [employer] Association. Diabetes Care. 2016.39(Suppl 1). Performed By: #### 2 4323-8, ####[facility] ALISAWNCLIA [id number] [place] [address] [place] Potassium [Moles/Vol] 4.0 mmol/L Normal 3.7-5.1 [facility] Comment on above: Order Comment: Speci men Type: BLOOD SPECIMENOrdering Facility: [facility] Address: [address] [place] [address] Performed By: #### 2 4323-8, ####[facility] PARKNCA [id number] [place] [address] [place] Protein [Mass/Vol] 6.8 g/dL Normal 6.3-8.0 [facility] Comment on above: Order Comment: Speci men Type: BLOOD SPECIMENOrdering Facility: [facility] Address: [address] [place], [place] [address] Performed By: #### 2 4323-8, ####[facility] PARKNCA [id number] [place] [address] [place] Sodium [Moles/Vol] 135 mmol/L Low 136-144 [facility] Comment on above: Order Comment: Speci men Type: BLOOD SPECIMENOrdering Facility: [facility] Address: [address] [place] [address] Performed By: #### 2 4323-8, ####[facility] PARKNCLIA [id number] [place] [address] [place] Urea nitrogen [Mass/Vol] 15 mg/dL Normal 7-21 [facility] Comment on above: Order Comment: Speci men Type: BLOOD SPECIMENOrdering Facility: [facility] Address: [address] [place] [address] Performed By: #### 2 4323-8, 15733-6 ####[facility] [id number] [place] [address] [place] Ferritin SerPl-mCncon 2024 Ferritin [Mass/Vol] 238.0 ng/mL High 14.7-205.1 [facility] Comment on above: Order Comment: Speci men Type: BLOOD SPECIMENOrdering Facility: [facility] Address: [address] [place] [address] Performed By: #### 1 0334-1, 2276-4, 69523-0 ####[facility] LABCLIA [id number] [place] [address] [place] Iron and Iron binding capaci ty panelon 03-30-2025 Iron [Mass/Vol] 96 ug/dL Normal 41-186 [facility] Comment on above: Order Comment: Speci men Type: BLOOD SPECIMENOrdering Facility: [facility] Address: [address] [place] [address] Performed By: #### 1 0334-1, 6-4, 97210-7 ####[facility] LABIA [id number] [place] [address] [place] Iron binding capacity [Mass/Vol] 382 ug/dL Normal 232-386 [facility] Comment on above: Order Comment: Speci men Type: BLOOD SPECIMENOrdering Facility: [facility] Address: [address] [place] [address] Performed By: #### 1 0334-1, 6-4, 84475-5 ####[facility] LABIA [id number] [place] [id number] [place] Iron/TIBC [Molar ratio] 25.1 % Normal 15.0-57.0 [facility] Comment on above: Order Comment: Speci men Type: BLOOD SPECIMENOrdering Facility: [facility] Address: [address] [place] [address] Performed By: #### 1 0334-1, 2276-4, 05951-6 ####[facility] LABCLIA [id number] [place] [address] [place] Magnesium SerPl-mCncon 03-30 Magnesium [Mass/Vol] 2.1 mg/dL Normal 1.7-2.3 [facility] Comment on above: Order Comment: Speci men Type: BLOOD SPECIMENOrdering Facility: [facility] Address: [address] [place] [address] Performed By: #### 2 4323-8, 61059-3 ####[facility] PARKCALVIN [id number] [place] [address] [place] Retics #on 03-30-2025 Reticulocytes (Bld) [#/Vol] 0.70869 10*3/uL Normal 0.018-0.100 [facility] Comment on above: Order Comment: Speci men Type: BLOOD SPECIMENOrdering Facility: [facility] Address: [address] [place] [address] Performed By: #### 5 7021-8, 50500-4 ####[facility] HOSPITALLIA [id number] [place] [address] [place] Reticulocytes (Bld) [#/Vol]o n 03-30-2025 Reticulocytes/100 RBC (Bld) 1.3 % Normal 0.4-2.0 [facility] Comment on above: Order Comment: Speci men Type: BLOOD SPECIMENOrdering Facility: [facility] Address: [address] [place] [address] Performed By: #### 5 7021-8, 42360-9 ####[facility] PARKNCLIA [id number] [place] [address] [place] CBC W Auto Differential pane l (Bld)on 03-21-2025 Anisocytosis Ql (Bld) Present Normal [facility] Comment on above: Order Comment: Speci men Type: BLOOD SPECIMENOrdering Facility: [facility] Address: [address] [place] [address] Performed By: #### 1 4196-0 ####[facility] MILLTOWNCLIA [id number] [place] [address] [place]#### 93601-5 ####[facility] MILLTOWNCLIA [id number] [address] LABORATORYCLIA [id number] [place] [address] [place] Basophils (Bld) [#/Vol] 0.03 10*3/uL Normal <0.11 [facility] Comment on above: Order Comment: Speci men Type: BLOOD SPECIMENOrdering Facility: [facility] Address: [address] [place] [address] Performed By: #### 1 4196-0 ####[facility] MILLTOWNCLIA [id number] [address]#### 66646-2 ####[facility] MILLTOWNCLIA [id number] [address] LABORATORYCLIA [id number] [address] [place] Basophils/100 WBC (Bld) 0.8 % Normal [facility] Comment on above: Order Comment: Speci men Type: BLOOD SPECIMENOrdering Facility: [facility] Address: [address] [place] [address] Performed By: #### 1 4196-0 ####[facility] MILLTOWNCLIA [id number] [address] [place]#### 90196-6 ####[facility] MILLTOWNCLIA [id number] [address] LABORATORYCLIA [id number] [place] [address] [place] Dacrocytes LM Ql (Bld) Few Normal [facility] Comment on above: Order Comment: Speci men Type: BLOOD SPECIMENOrdering Facility: [facility] Address: [address] [place] [address] Performed By: #### 1 4196-0 ####[facility] MILLTOWNCLIA [id number] [place] [address] [place]#### 84656-3 ####[facility] MILLWNCLIA [id number] [address] LABORATORYCLIA [id number] [place] [address] [place] Differential cell count method Nom (Bld) Auto Normal [facility] Comment on above: Order Comment: Speci men Type: BLOOD SPECIMENOrdering Facility: [facility] Address: [address] [place] [address] Performed By: #### 1 4196-0 ####[facility] MILLTOWNCLIA [id number] [place] [address] [place]#### 62800-7 ####[facility] MILLTOWNCLIA [id number] [address] LABORATORYCLIA [id number] [place] [address] [place] Eosinophils (Bld) [#/Vol] 0.04 10*3/uL Normal <0.46 [facility] Comment on above: Order Comment: Speci men Type: BLOOD SPECIMENOrdering Facility: [facility] Address: [address] [place] [address] Performed By: #### 1 4196-0 ####[facility] MILLTOWNCLIA [id number] [place] [address] [place]#### 27363-8 ####[facility] MILLTOWNCLIA [id number] [address] LABORATORYCLIA [id number] [place] [address] [place] Eosinophils/100 WBC (Bld) 1.1 % Normal [facility] Comment on above: Order Comment: Speci men Type: BLOOD SPECIMENOrdering Facility: [facility] Address: [address] [place] [address] Performed By: #### 1 4196-0 ####[facility] MILLTOWNCLIA [id number] [place] [address] [place]#### 74132-0 ####[facility] MILLTOWNCLIA [id number] [address] LABORATORYCLIA [id number] [place] [address] [place] [facility] Erythrocyte distribution width (RBC) [Ratio] 20.2 % High 11.5-15.0 [facility] Comment on above: Order Comment: Speci men Type: BLOOD SPECIMENOrdering Facility: [facility] Address: [address] [place] [address] Performed By: #### 1 4196-0 ####[facility] MILLTOWNCLIA [id number] [place] [address] [place]#### 16622-4 ####[facility] MILLTOWNCLIA [id number] [address] LABORATORYCLIA [id number] [place] [address] [place] Hematocrit (Bld) [Volume fraction] 26.2 % Low 36.0-46.0 [facility] Comment on above: Order Comment: Speci men Type: BLOOD SPECIMENOrdering Facility: [facility] Address: [address] [place] [address] Performed By: #### 1 4196-0 ####[facility] MILLWNCLIA [id number] [place] [address] [place]#### 02907-6 ####[facility] [id number] [address] LABORATORYCLIA [id number] [place] [address] [place] Hemoglobin (Bld) [Mass/Vol] 8.1 g/dL Low 11.5-15.5 [facility] Comment on above: Order Comment: Speci men Type: BLOOD SPECIMENOrdering Facility: [facility] Address: [address] [place] [address] Performed By: #### 1 4196-0 ####[facility]ITALWNCLIA [id number] [address] [place]#### 43529-6 ####[facility]ITALWNCLIA [id number] [address] LABORATORYCLIA [id number] [place] [address] [place] Immature granulocytes (Bld) [#/Vol] 10*3/uL Normal <0.10 [facility] Comment on above: Order Comment: Speci men Type: BLOOD SPECIMENOrdering Facility: [facility] Address: [address] [place] [address] Performed By: #### 1 4196-0 ####[facility]ITALWNCLIA [id number] [place] [address] [place]#### 93764-2 ####[facility] MILLTOWNCLIA [id number] [address] LABORATORYCLIA [id number] [place] [address] [place] Immature granulocytes/100 WBC (Bld) 0.3 % Normal [facility] Comment on above: Order Comment: Speci men Type: BLOOD SPECIMENOrdering Facility: [facility] Address: [address] [place] [address] Performed By: #### 1 4196-0 ####[facility] MILLTOWNCLIA [id number] [place] [address] [place]#### 35068-3 ####[facility] MILLTOWNCLIA [id number] [address] LABORATORYCLIA [id number] [place] [address] [place] Lymphocytes (Bld) [#/Vol] 0.50 10*3/uL Low 1.00-4.00 [facility] Comment on above: Order Comment: Speci men Type: BLOOD SPECIMENOrdering Facility: [facility] Address: [address] [place] [address] Performed By: #### 1 4196-0 ####[facility] MILLTOWNCLIA [id number] [place] [address] [place]#### 80887-1 ####[facility] MILLTOWNCLIA [id number] [address] LABORATORYCLIA [id number] [place] [address] [place] Lymphocytes/100 WBC (Bld) 13.4 % Normal [facility] Comment on above: Order Comment: Speci men Type: BLOOD SPECIMENOrdering Facility: [facility] Address: [address] [place] [address] Performed By: #### 1 4196-0 ####[facility] MILLTOWNCLIA [id number] [place] [address] [place]#### 04393-3 ####[facility] MILLTOWNCLIA [id number] [address] LABORATORYCLIA [id number] [place] [address] [place] MCH (RBC) [Entitic mass] 28.2 pg Normal 26.0-34.0 [facility] Comment on above: Order Comment: Speci men Type: BLOOD SPECIMENOrdering Facility: [facility] Address: [address] [place] [address] Performed By: #### 1 4196-0 ####[facility] MILLTOWNCLIA [id number] [address]#### 64727-4 ####[facility] MILLTOWNCLIA [id number] [address] LABORATORYCLIA [id number] [place] [address] [place] MCHC (RBC) [Mass/Vol] 30.9 g/dL Normal 30.5-36.0 [facility] Comment on above: Order Comment: Speci men Type: BLOOD SPECIMENOrdering Facility: [facility] Address: [address] [place] [address] Performed By: #### 1 4196-0 ####[facility] MILLTOWNCLIA [id number] [place] [address] [place]#### 04789-1 ####[facility] MILLTOWNCLIA [id number] [address] LABORATORYCLIA [id number] [place] [address] [place] MCV (RBC) [Entitic vol] 91.3 fL Normal 80.0-100.0 [facility] Comment on above: Order Comment: Speci men Type: BLOOD SPECIMENOrdering Facility: [facility] Address: [address] [place] [address] Performed By: #### 1 4196-0 ####[facility] MILLTOWNCLIA [id number] [address]#### 88941-0 ####[facility] PARKNCLIA [id number] [address] LABORATORYCLIA [id number] [place] [address] [place] Monocytes (Bld) [#/Vol] 0.34 10*3/uL Normal <0.87 [facility] Comment on above: Order Comment: Speci men Type: BLOOD SPECIMENOrdering Facility: [facility] Address: [address] [place] [address] Performed By: #### 1 4196-0 ####[facility] MILLTOWNCLIA [id number] [address] [place]#### 34962-7 ####[facility] MILLWNCLIA [id number] [address] LABORATORYCLIA [id number] [place] [address] [place] Monocytes/100 WBC (Bld) 9.1 % Normal [facility] Comment on above: Order Comment: Speci men Type: BLOOD SPECIMENOrdering Facility: [facility] Address: [address] [place] [address] Performed By: #### 1 4196-0 ####[facility] MILLTOWNCLIA [id number] [place] [address] [place]#### 95529-1 ####[facility] MILLTOWNCLIA [id number] [address] LABORATORYCLIA [id number] [place] [address] [place] Neutrophils (Bld) [#/Vol] 2.81 10*3/uL Normal 1.45-7.50 [facility] Comment on above: Order Comment: Speci men Type: BLOOD SPECIMENOrdering Facility: [facility] Address: [facility] [place] [address] Performed By: #### 1 4196-0 ####[facility] MILLTOWNCLIA [id number] [place] [address] [place]#### 69626-3 ####[facility] MILLTOWNCLIA [id number] [address] LABORATORYCLIA [id number] [place] [address] [place] Neutrophils/100 WBC (Bld) 75.3 % Normal [facility] Comment on above: Order Comment: Speci men Type: BLOOD SPECIMENOrdering Facility: [facility] Address: [facility] [place] [id number] Performed By: #### 1 4196-0 ####[facility] MILLTOWNCLIA [id number] [place] [address] [place]#### 79277-7 ####[facility] MILLTOWNCLIA [id number] [address] LABORATORYCLIA [id number] [place] [address] [place] Nucleated RBC (Bld) [#/Vol] 10*3/uL Normal <0.01 [facility] Comment on above: Order Comment: Speci men Type: BLOOD SPECIMENOrdering Facility: [facility] Address: [address] [place] [address] Performed By: #### 1 4196-0 ####[facility]PITALWNCLIA [id number] [place] [address] [place]#### 60299-2 ####[facility]ITALWNCLIA [id number] [address] LABORATORYCLIA [id number] [place] [address] [place] Nucleated RBC/100 WBC (Bld) [Ratio] 0.0 /[address] [facility] Comment on above: Order Comment: Speci men Type: BLOOD SPECIMENOrdering Facility: [facility] Address: [address] [place] [address] Performed By: #### 1 4196-0 ####[facility]ITALWNCLIA [id number] [place] [address] [place]#### 81664-0 ####[facility]ITALWNCLIA [id number] [address] LABORATORYCLIA [id number] [place] [address] [place] Ovalocytes LM Ql (Bld) Few Normal [facility] Comment on above: Order Comment: Speci men Type: BLOOD SPECIMENOrdering Facility: [facility] Address: [address] [place] [address] Performed By: #### 1 4196-0 ####[facility] MILLTOWNCLIA [id number] [address] [place]#### 18998-2 ####[facility] MILLTOWNCLIA [id number] [address] LABORATORYCLIA [id number] [place] [address] [place] Platelet mean volume (Bld) [Entitic vol] 10.4 fL Normal 9.0-12.7 [facility] Comment on above: Order Comment: Speci men Type: BLOOD SPECIMENOrdering Facility: [facility] Address: [address] [place] [address] Performed By: #### 1 4196-0 ####[facility] MILLTOWNCLIA [id number] [address]#### 92626-2 ####[facility] ALISATOWNCLIA [id number] [address] LABORATORYCLIA [id number] [address] [place] [facility] Platelets (Bld) [#/Vol] 217 10*3/uL Normal 150-400 [facility] Comment on above: Order Comment: Speci men Type: BLOOD SPECIMENOrdering Facility: [facility] Address: [address] [place] [address] Result Comment: No c lot detected. Performed By: #### 1 4196-0 ####[facility] MILLTOWNCLIA [id number] [address] [place]#### 82106-1 ####[facility] MILLTOWNCLIA [id number] [address] LABORATORYCLIA [id number] [place] [address] [place] Platelets Estimate (Bld) [#/Vol] Adequate Normal [facility] Comment on above: Order Comment: Speci men Type: BLOOD SPECIMENOrdering Facility: [facility] Address: [address] [place] [address] Performed By: #### 1 4196-0 ####[facility] MILLTOWNCLIA [id number] [place] [address] [place]#### 18196-5 ####[facility] MILLTOWNCLIA [id number] [address] LABORATORYCLIA [id number] [place] [address] [place] Polychromasia LM Ql (Bld) Slight Normal [facility] Comment on above: Order Comment: Speci men Type: BLOOD SPECIMENOrdering Facility: [facility] Address: [address] [place] [address] Performed By: #### 1 4196-0 ####[facility]ITALWNCLIA [id number] [place] [address] [place]#### 20102-3 ####[facility] MILLTOWNCLIA [id number] [address] LABORATORYCLIA [id number] [place] [address] [place] RBC (Bld) [#/Vol] 2.87 10*6/uL Low 3.90-5.20 [facility] Comment on above: Order Comment: Speci men Type: BLOOD SPECIMENOrdering Facility: [facility] Address: [address] [place] [address] Performed By: #### 1 4196-0 ####[facility] MILLTOWNCLIA [id number] [place] [address] [place]#### 28903-0 ####[facility] MILLTOWNCLIA [id number] [address] LABORATORYCLIA [id number] [place] [address] [place] RBC FRAGMENTS Few Abnormal None Seen [facility] Comment on above: Order Comment: Speci men Type: BLOOD SPECIMENOrdering Facility: [facility] Address: [address] [place] [address] Performed By: #### 1 4196-0 ####[facility] MILLTOWNCLIA [id number] [place] [address] [place]#### 48648-8 ####[facility] ALISAWNCLIA [id number] [address] LABORATORYCLIA [id number] [place] [address] [place] [facility] RED CELL MORPH Reviewed: see result s of individual morphologies Normal [facility] Comment on above: Order Comment: Speci men Type: BLOOD SPECIMENOrdering Facility: [facility] Address: [address] [place] [address] Performed By: #### 1 4196-0 ####[facility] MILLTOWNCLIA [id number] [place] [address] [place]#### 57457-5 ####[facility] MILLTOWNCLIA [id number] [address] LABORATORYCLIA [id number] [place] [address] [place] WBC (Bld) [#/Vol] 3.73 10*3/uL Normal 3.70-11.00 [facility] Comment on above: Order Comment: Speci men Type: BLOOD SPECIMENOrdering Facility: [facility] Address: [address] [place] [address] Performed By: #### 1 4196-0 ####[facility] ALISATOWNCLIA [id number] [place] [address] [place]#### 59805-6 ####[facility] PARKNCLIA [id number] [place] [address] [place] [address] [facility] LABORATORYCLIA [id number] [place] [address] [place] Ferritin SerPl-mCncon 2024 Ferritin [Mass/Vol] 308.0 ng/mL High 14.7-205.1 [facility] Comment on above: Order Comment: Speci men Type: BLOOD SPECIMENOrdering Facility: [facility] Address: [address] [place] [address] Performed By: #### 5 0190-8, 2276-01 ####[facility] LABCLIA [id number] [place] [address] [place] Iron and Iron binding capaci ty panelon 03-21-2025 Iron [Mass/Vol] 579 ug/dL High 41-186 [facility] Comment on above: Order Comment: Speci men Type: BLOOD SPECIMENOrdering Facility: [facility] Address: [address] [place] [address] Performed By: #### 5 0190-8, 2276-01 ####[facility] LABCLIA [id number] [place] [address] [place] Iron binding capacity [Mass/Vol] 763 ug/dL High 232-386 [facility] Comment on above: Order Comment: Speci men Type: BLOOD SPECIMENOrdering Facility: [facility] Address: [address] [place] [address] Performed By: #### 5 0190-8, 2276-01 ####[facility] LABCLIA [id number] [place] [address] [place] Iron/TIBC [Molar ratio] 75.9 % High 15.0-57.0 [facility] Comment on above: Order Comment: Speci men Type: BLOOD SPECIMENOrdering Facility: [facility] Address: [address] [place] [address] Performed By: #### 5 0190-8, 2276-4 ####[facility] LABCLIA [id number] [place] [address] [place] Retics #on 03-21-2025 Reticulocytes (Bld) [#/Vol] 0.20038 10*3/uL High 0.018-0.100 [facility] Comment on above: Order Comment: Speci men Type: BLOOD SPECIMENOrdering Facility: [facility] Address: [address] [place] [address] Performed By: #### 1 4196-0 ####[facility] MILLTOWNCLIA [id number] [place] [address] [place]#### 38419-0 ####[facility] MILLTOWNCLIA [id number] [address] LABORATORYCLIA [id number] [place] [address] [place] Reticulocytes (Bld) [#/Vol]o n 03-21-2025 Reticulocytes/100 RBC (Bld) 3.9 % High 0.4-2.0 [facility] Comment on above: Order Comment: Speci men Type: BLOOD SPECIMENOrdering Facility: [facility] Address: [address] [place] [address] Performed By: #### 1 4196-0 ####[facility] MILLTOWNCLIA [id number] [place] [address] [place]#### 63220-3 ####[facility] MILLTOWNCLIA [id number] [address] LABORATORYCLIA [id number] [address] [place] CNPNon 03-18-[address] [facility] CNPNon 03-14-[address] [facility] CNPNon 03-09-2025 CNPN Telephone (GYNML) LILYSAL Nena ([id number]) 1950 F Date Time Provider Department 03/09/25 CAREY ELIAS GYN During your visit today, we recorded the following information about you: Carey Elias APRN.PHOTOGRAPHER LITHOGRAPHIC 03/09/2025 1:34 PM Signed Patient called office to provide update. Has been experiencing blood in stools that started in December 2024. 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 Had another procedure for same in January 2025. Now, states bleeding has returned again and has an appointment with local GI in April again. Noting this about once per day. Not a lot of blood per patient. Also reports iron deficiency anemia that she is receiving IV iron for. She is inquiring if has any further recommendations re above changes. Also, avastin was permanently discontinued in setting of above, and plan to start on PARP inhibitor, but this has been deferred until above resolved/improved. Will reach out to to relay message and get recs. Carey Elias APRN.PHOTOGRAPHER LITHOGRAPHIC Allergies As of Date: 03/09/2025 (No Known Allergies) Date Reviewed: 03/09/2025 Reviewed by: Tarsha Silvestre, CECILIA - Fully Assessed Reason for Visit: Patient Update [1234] Prescriptions as of 04/20/2025 - niraparib (ZEJULA) 200 mg tablet Take 1 tablet (200mg) by mouth once daily. - ondansetron orally disintegrating (ZOFRAN ODT) 8 mg disintegrating tablet Take 1 tablet by mouth every 8 hours as needed for nausea/vomiting. - prochlorperazine (COMPAZINE) 10 mg tablet Take 1 tablet by mouth every 6 hours as needed. - acetaminophen (TYLENOL EXTRA STRENGTH) 500 mg tablet Take 1,000 mg by mouth every 6 hours as needed for pain. - Loperamide HCl (ANTI-DIARRHEAL) 2 mg tab Take 1 tablet by mouth as needed. Problem List As Of Date 03/09/2025 Noted Resolved Sebaceous cyst [L72.3] 07/05/2008 11/16/2015 Osteopenia [M85.80] 07/13/2012 Irritable bowel syndrome with diarrhea [K58.0] 11/16/2015 Generalized abdominal or pelvic swelling or mas*03/15/2024 Inadequate nutrition [E63.9] 03/17/2024 Other ascites [R18.8] 03/17/2024 Severe protein-calorie malnutrition (HCC) [E43] 03/18/2024 Pelvic mass in female [R19.00] 04/09/2024 High grade ovarian cancer (HCC) [C56.9] 04/22/2024 Ovarian cancer, bilateral (HCC) [C56.3] 09/08/2024 Post-operative pain [G89.18] 09/13/2024 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 los*03/02/2025 Iron malabsorption (HCC) [K90.9] 03/02/2025 Encounter Status:Closed by CAREY ELIAS on 04/20/25 Normal [facility] CBC W Auto Differential pane l (Bld)on 03-02-2025 Basophils (Bld) [#/Vol] 10*3/uL Normal <0.11 [facility] Comment on above: Order Comment: Speci men Type: BLOOD SPECIMENOrdering Facility: [facility] Address: [address] [place] [address] [place] [id number] Performed By: #### 5 7021-8 ####[facility] [id number] [place] [address] [place] Basophils/100 WBC (Bld) 0.5 % Normal [facility] Comment on above: Order Comment: Speci men Type: BLOOD SPECIMENOrdering Facility: [facility] Address: [address] [place] [address] Performed By: #### 5 7021-8 ####[facility] [id number] [place] [address] [place] Differential cell count method Nom (Bld) Auto Normal [facility] Comment on above: Order Comment: Speci men Type: BLOOD SPECIMENOrdering Facility: [facility] Address: [address] [place] [address] Performed By: #### 5 7021-8 ####[facility] [id number] [place] [address] [place] Eosinophils (Bld) [#/Vol] 0.04 10*3/uL Normal <0.46 [facility] Comment on above: Order Comment: Speci men Type: BLOOD SPECIMENOrdering Facility: [facility] Address: [address] [place] [address] Performed By: #### 5 7021-8 ####[facility] [id number] [place] [address] [place] Eosinophils/100 WBC (Bld) 1.0 % Normal [facility] Comment on above: Order Comment: Speci men Type: BLOOD SPECIMENOrdering Facility: [facility] Address: [address] [place] [address] Performed By: #### 5 7021-8 ####[facility] [id number] [place] [address] [place] Erythrocyte distribution width (RBC) [Ratio] 14.4 % Normal 11.5-15.0 [facility] Comment on above: Order Comment: Speci men Type: BLOOD SPECIMENOrdering Facility: [facility] Address: [address] [place] [address] Performed By: #### 5 7021-8 ####[facility] LUIGI [id number] [place] [address] [place] Hematocrit (Bld) [Volume fraction] 26.1 % Low 36.0-46.0 [facility] Comment on above: Order Comment: Speci men Type: BLOOD SPECIMENOrdering Facility: [facility] Address: [address] [place] [address] Performed By: #### 5 7021-8 ####[facility] P[facility]NC[facility]RI[facility] [id number] [place] [address] [place] Hemoglobin (Bld) [Mass/Vol] 8.1 g/dL Low 11.5-15.5 [facility] Comment on above: Order Comment: Speci men Type: BLOOD SPECIMENOrdering Facility: [facility] Address: [address] [place] [address] Performed By: #### 5 7021-8 ####[facility] [id number] [place] [address] [place] Immature granulocytes (Bld) [#/Vol] 10*3/uL Normal <0.10 [facility] Comment on above: Order Comment: Speci men Type: BLOOD SPECIMENOrdering Facility: [facility] Address: [address] [place] [address] Performed By: #### 5 7021-8 ####[facility]CL[facility] [id number] [place] [address] [place] Immature granulocytes/100 WBC (Bld) 0.2 % Normal [facility] Comment on above: Order Comment: Speci men Type: BLOOD SPECIMENOrdering Facility: [facility] Address: [address] [place] [address] Performed By: #### 5 7021-8 ####[facility] [id number] [place] [address] [place] Lymphocytes (Bld) [#/Vol] 0.73 10*3/uL Low 1.00-4.00 [facility] Comment on above: Order Comment: Speci men Type: BLOOD SPECIMENOrdering Facility: [facility] Address: [address] [place] [address] Performed By: #### 5 7021-8 ####[facility] [id number] [place] [address] [place] Lymphocytes/100 WBC (Bld) 17.8 % Normal [facility] Comment on above: Order Comment: Speci men Type: BLOOD SPECIMENOrdering Facility: [facility] Address: [address] [place] [address] Performed By: #### 5 7021-8 ####[facility] [id number] [place] [address] [place] MCH (RBC) [Entitic mass] 27.5 pg Normal 26.0-34.0 [facility] Comment on above: Order Comment: Speci men Type: BLOOD SPECIMENOrdering Facility: [facility] Address: [address] [place] [address] Performed By: #### 5 7021-8 ####[facility] [id number] [place] [address] [place] MCHC (RBC) [Mass/Vol] 31.0 g/dL Normal 30.5-36.0 [facility] Comment on above: Order Comment: Speci men Type: BLOOD SPECIMENOrdering Facility: [facility] Address: [address] [place] [address] Performed By: #### 5 7021-8 ####[facility] [id number] [place] [id number] [place] MCV (RBC) [Entitic vol] 88.5 fL Normal 80.0-100.0 [facility] Comment on above: Order Comment: Speci men Type: BLOOD SPECIMENOrdering Facility: [facility] Address: [address] [place] [address] Performed By: #### 5 7021-8 ####[facility] [id number] [place] [address] [place] Monocytes (Bld) [#/Vol] 0.38 10*3/uL Normal <0.87 [facility] Comment on above: Order Comment: Speci men Type: BLOOD SPECIMENOrdering Facility: [facility] Address: [address] [place] [address] Performed By: #### 5 7021-8 ####[facility] PARKNCLIA [id number] [place] [address] [place] Monocytes/100 WBC (Bld) 9.2 % Normal [facility] Comment on above: Order Comment: Speci men Type: BLOOD SPECIMENOrdering Facility: [facility] Address: [address] [place] [address] Performed By: #### 5 7021-8 ####[facility]IT[facility]IA [id number] [place] [address] [place] Neutrophils (Bld) [#/Vol] 2.93 10*3/uL Normal 1.45-7.50 [facility] Comment on above: Order Comment: Speci men Type: BLOOD SPECIMENOrdering Facility: [facility] Address: [address] [place] [address] Performed By: #### 5 7021-8 ####[facility] PARK[facility]CL[facility] [id number] [place] [address] [place] Neutrophils/100 WBC (Bld) 71.3 % Normal [facility] Comment on above: Order Comment: Speci men Type: BLOOD SPECIMENOrdering Facility: [facility] Address: [address] [place] [address] Performed By: #### 5 7021-8 ####[facility]ARKCALVIN [id number] [place] [address] [place] Nucleated RBC (Bld) [#/Vol] 10*3/uL Normal <0.01 [facility] Comment on above: Order Comment: Speci men Type: BLOOD SPECIMENOrdering Facility: [facility] Address: [address] [place] [address] Performed By: #### 5 7021-8 ####[facility] [id number] [place] [address] [place] Nucleated RBC/100 WBC (Bld) [Ratio] 0.0 /[address] [facility] Comment on above: Order Comment: Speci men Type: BLOOD SPECIMENOrdering Facility: [facility] Address: [address] [place] [address] Performed By: #### 5 7021-8 ####[facility] [id number] [place] [address] [place] Platelet mean volume (Bld) [Entitic vol] 9.2 fL Normal 9.0-12.7 [facility] Comment on above: Order Comment: Speci men Type: BLOOD SPECIMENOrdering Facility: [facility] Address: [address] [place] [address] Performed By: #### 5 7021-8 ####[facility] [id number] [place] [address] [place] Platelets (Bld) [#/Vol] 200 10*3/uL Normal 150-400 [facility] Comment on above: Order Comment: Speci men Type: BLOOD SPECIMENOrdering Facility: [facility] Address: [address] [place] [address] Performed By: #### 5 7021-8 ####[facility] PARKNCLIA [id number] [place] [address] [place] RBC (Bld) [#/Vol] 2.95 10*6/uL Low 3.90-5.20 [facility] Comment on above: Order Comment: Speci men Type: BLOOD SPECIMENOrdering Facility: [facility] Address: [address] [place] [address] Performed By: #### 5 7021-8 ####[facility]CL[facility] [id number] [place] [address] [place] WBC (Bld) [#/Vol] 4.11 10*3/uL Normal 3.70-11.00 [facility] Comment on above: Order Comment: Speci men Type: BLOOD SPECIMENOrdering Facility: [facility] Address: [address] [place] [address] Performed By: #### 5 7021-8 ####[facility]ITALA [id number] [place] [address] [place] CNOVSPon 03-02-[address] [facility] CNPNon 03-02-[address] [facility] Cancer Ag125 SerPl-aCncon Cancer Ag 125 Qn 7 [arb'U]/mL Normal <39 [facility] Comment on above: Order Comment: Speci men Type: BLOOD SPECIMENOrdering Facility: [facility] Address: [address] [place] [address] Result Comment: CA 1 25 test methodology used is the Electrochemiluminescence Immunoassay by [employer]. Results obtained with different methods or kits cannot be used interchangeably.The reference interval is based on the 95th percentile of 240 apparently healthy premenopausal and postmenopausal women. At a cutoff value of 65 U/mL, the test sensitivity to distinguish ovarian carcinoma (FIGO stage I to IV) versus benign gynecological disease is 79%, with a specificity of 82%.Reference: Cancer Antigen 125 (CA 125 II) [package insert V 1.0 [place]i]. [employer], [place], [place] (July 2015) Performed By: #### 1 0334-1 ####[facility] LABCLIA [id number] [address] OF [facility] Comprehensive metabolic 2000 panelon 03-02-2025 Albumin [Mass/Vol] 4.2 g/dL Normal 3.9-4.9 [facility] Comment on above: Order Comment: Speci men Type: BLOOD SPECIMENOrdering Facility: [facility] Address: [address] [place] [address] Performed By: #### 5 0190-8, 2275- ####[facility] LABIA [id number] [address] [place]#### 58335-1 ####[facility]ITAL[facility] [id number] [place] [address] [place] ALP [Catalytic activity/Vol] 69 U/L Normal 34-123 [facility] Comment on above: Order Comment: Speci men Type: BLOOD SPECIMENOrdering Facility: [facility] Address: [address] [place] [address] Performed By: #### 5 0190-8, 2276-01 ####[facility] LABIA [id number] [address] OF [place]#### 62460-7 ####[facility] MILLTOWNCLIA [id number] [place] [address] [place] ALT [Catalytic activity/Vol] 9 U/L Normal 7-38 [facility] Comment on above: Order Comment: Speci men Type: BLOOD SPECIMENOrdering Facility: [facility] Address: [address] [place] [address] Performed By: #### 5 0190-8, 2275- ####[facility] LABCLIA [id number] [place] [address] [place]#### 13785-6 ####[facility]CL[facility] [id number] [place] [address] [place] Anion gap [Moles/Vol] 13 mmol/L Normal 8-15 [facility] Comment on above: Order Comment: Speci men Type: BLOOD SPECIMENOrdering Facility: [facility] Address: [address] [place] [address] Performed By: #### 5 0190-8, 2275- ####[facility] LABCLIA [id number] [place] [address] [place]#### 14651-5 ####[facility] [id number] [place] [address] [place] AST [Catalytic activity/Vol] 12 U/L Low 13-35 [facility] Comment on above: Order Comment: Speci men Type: BLOOD SPECIMENOrdering Facility: [facility] Address: [address] [place] [address] Performed By: #### 5 0190-8, 2276-01 ####[facility] LABCLIA [id number] [place] [address] [place]#### 09128-3 ####[facility] [id number] [place] [address] [place] Bilirubin [Mass/Vol] 0.2 mg/dL Normal 0.2-1.3 [facility] Comment on above: Order Comment: Speci men Type: BLOOD SPECIMENOrdering Facility: [facility] Address: [facility] [place] [place] [address] Performed By: #### 5 0190-8, 2275- ####[facility] LABCLIA [id number] [place] [address] [place]#### 20753-9 ####[facility] MILLTOWNCLIA [id number] [place] [address] [place] Calcium [Mass/Vol] 9.7 mg/dL Normal 8.5-10.2 [facility] Comment on above: Order Comment: Speci men Type: BLOOD SPECIMENOrdering Facility: [facility] Address: [address] [place] [address] Performed By: #### 5 0190-8, 2276-01 ####[facility] LABCLIA [id number] [place] [address] [place]#### 57493-9 ####[facility]ITALWNCLIA [id number] [place] [address] [place] Chloride [Moles/Vol] 104 mmol/L Normal 98-107 [facility] Comment on above: Order Comment: Speci men Type: BLOOD SPECIMENOrdering Facility: [facility] Address: [address] [place] [address] Performed By: #### 5 0190-8, 2276-01 ####[facility] LABCLIA [id number] [place] [address] [place]#### 35355-6 ####[facility] MILLTOWNCLIA [id number] [place] [address] [place] CO2 [Moles/Vol] 21 mmol/L Low 22-30 [facility] Comment on above: Order Comment: Speci men Type: BLOOD SPECIMENOrdering Facility: [facility] Address: [address] [place] [address] Performed By: #### 5 0190-8, 2276-01 ####[facility] LABCLIA [id number] [place] [address] [place]#### 26984-9 ####[facility]ITALWNCLIA [id number] [place] [address] [place] Creatinine [Mass/Vol] 0.89 mg/dL Normal 0.58-0.96 [facility] Comment on above: Order Comment: Speci men Type: BLOOD SPECIMENOrdering Facility: [facility] Address: [address] [place] [address] Performed By: #### 5 0190-8, 4 ####[facility] LABIA [id number] [address] [place]#### 17900-3 ####[facility]NC[facility] [id number] [place] [address] [place] [facility] Creatinine and Glomerular filtration rate.predicted panel (S/P/Bld) 69 mL/min/1.73m??? Normal >=60 [facility] Comment on above: Order Comment: Speci men Type: BLOOD SPECIMENOrdering Facility: [facility] Address: [address] [place] [address] Result Comment: Ethel mated Glomerular Filtration Rate (eGFR) is calculated using the 2020 CKD-EPI creatinine equation. This equation utilizes serum creatinine, sex, and age as parameters. The creatinine assay has traceable calibration to isotope dilution-mass spectrometry. Refer to KDIGO guidelines for clinical interpretation. In patients with unstable renal function, e.g. those with acute kidney injury, the eGFR may not accurately reflect actual GFR. Performed By: #### 5 0190-8, 2276-01 ####[facility] LABIA [id number] [place] [address] [place]#### 06666-7 ####[facility] PARK[facility]CL[facility] [id number] [place] [address] [place] Glucose [Mass/Vol] 92 mg/dL Normal 74-99 [facility] Comment on above: Order Comment: Speci men Type: BLOOD SPECIMENOrdering Facility: [facility] Address: [address] [place] [address] Result Comment: The [place] Diabetes Association (ADA) provides guidance for cutoff values for fasting glucose and random glucose. The ADA defines fasting as no caloric intake for at least 8 hours. Fasting plasma glucose results between 100 to 125 mg/dL indicate increased risk for diabetes (prediabetes).Fasting plasma glucose results greater than or equal to 126 mg/dL meet the criteria for diagnosis of diabetes. In the absence of unequivocal hyperglycemia, results should be confirmed by repeat testing. In a patient with classic symptoms of hyperglycemia or hyperglycemic crisis, random plasma glucose results greater than or equal to 200 mg/dL meet the criteria for diagnosis of diabetes.Reference: Standards of Medical Care in Diabetes 2016, [place] Diabetes Association. Diabetes Care. 2016.39(Suppl 1). Performed By: #### 5 0190-8, 2276-01 ####[facility] LABCLIA [id number] [place] [address] [place]#### 39313-4 ####[facility]OSPITALWMTLIA [id number] [place] [address] [place] Potassium [Moles/Vol] 3.7 mmol/L Normal 3.7-5.1 [facility] Comment on above: Order Comment: Cheng yasir Type: BLOOD SPECIMENOrdering Facility: [facility] Address: [address] [place] [address] Performed By: #### 5 0190-8, 2276-01 ####[facility] LABCLIA [id number] [place] [address] [place]#### 20151-2 ####[facility] MILLTOWNCLIA [id number] [place] [address] [place] Protein [Mass/Vol] 6.7 g/dL Normal 6.3-8.0 [facility] Comment on above: Order Comment: Bekakimberly men Type: BLOOD SPECIMENOrdering Facility: [facility] Address: [address] [place] [address] Performed By: #### 5 0190-8, 2276-01 ####[facility] LABCLIA [id number] [place] [address] [place]#### 53723-5 ####[facility] MILLTOWNCLIA [id number] [place] [address] [place] Sodium [Moles/Vol] 138 mmol/L Normal 136-144 [facility] Comment on above: Order Comment: Speci men Type: BLOOD SPECIMENOrdering Facility: [facility] Address: [facility] [place] [place] [address] Performed By: #### 5 0190-8, 2276-01 ####[facility] LABCLIA [id number] [place] [address] [place]#### 91305-7 ####[facility] MILLTOWNCLIA [id number] [place] [address] [place] Urea nitrogen [Mass/Vol] 18 mg/dL Normal 7-21 [facility] Comment on above: Order Comment: Speci men Type: BLOOD SPECIMENOrdering Facility: [facility] Address: [address] [place] [address] Performed By: #### 5 0190-8, 2276-01 ####[facility] LABCLIA [id number] [place] [address] [place]#### 94533-5 ####[facility] MILLTOWNCLIA [id number] [place] [address] [place] FERRITINon 03-02-2025 Ferritin [Mass/Vol] 8.4 ng/mL Low 14.7 - 205.1 ng/mL [facility] Ferritin SerPl-mCncon 2024 Ferritin [Mass/Vol] 8.4 ng/mL Low 14.7-205.1 [facility] Comment on above: Order Comment: Speci men Type: BLOOD SPECIMENOrdering Facility: [facility] Address: [address] [place] [address] Performed By: #### 5 0190-8, 2276-01 ####[facility] LABCLIA [id number] [place] [address] [place]#### 93833-4 ####[facility] PATRICIO MILLTOWNCLIA [id number] [place] [address] [place] Ferritin [Mass/Vol]on 2024 Interpretation and review of laboratory results Abnormal [facility] Iron and Iron binding capaci ty panelon 03-02-2025 Interpretation and review of laboratory results Abnormal [facility] Iron [Mass/Vol] 31 ug/dL Low 41 - 186 ug/dL [facility] Iron binding capacity [Mass/Vol] 424 ug/dL High 232 - 386 ug/dL [facility] Iron/TIBC [Molar ratio] 7.3 % Low 15.0 - 57.0 % [facility] Iron [Mass/Vol] 31 ug/dL Low 41-186 [facility] Comment on above: Order Comment: Speci men Type: BLOOD SPECIMENOrdering Facility: [facility] Address: [address] [place] [address] Performed By: #### 5 0190-8, 2276-01 ####[facility] LABCLIA [id number] [place] [address] [place]#### 87944-7 ####[facility] MILLTOWNCLIA [id number] [place] [address] [place] Iron binding capacity [Mass/Vol] 424 ug/dL High 232-386 [facility] Comment on above: Order Comment: Speci men Type: BLOOD SPECIMENOrdering Facility: [facility] Address: [address] [place] [address] Performed By: #### 5 0190-8, 2276-01 ####[facility] LABCLIA [id number] [address]#### 45958-6 ####[facility] ALISAGREENFIELDNCDEMETRIO [id number] [address] Iron/TIBC [Molar ratio] 7.3 % Low 15.0-57.0 [facility] Comment on above: Order Comment: Speci men Type: BLOOD SPECIMENOrdering Facility: [facility] Address: [address] [place] [address] Performed By: #### 5 0190-8, 2276-4 ####[facility] LABCLIA [id number] [address]#### 24751-1 ####[facility] ALISAGREENFIELDNCLIA [id number] [address] [place] Gastroenterology Visit Repor ton 03-01-2025 Gastroenterology Visit Report [facility] Gastroenterology [address] [facility] [place] [address] OFFICE VISIT Date of Service: 03/01/25 MR#: [id number] Acct: [id number] Name: SAL BAUTISTA Rep #: [id number] : 1950 Provider: KIRAN chang Age/Sex: 74/F Location[facility] Status: Signed Intake Vital Signs 01/10/25 10:06 Height 5 ft 5 in Intake Visit Reasons: Melena Chief Complaint: rectal bleed Allergies No Known Allergies Allergy (Verified 03/01/25 08:02) Medications ???Medication ???Instructions ???Recorded ???Confirmed ???Type loperamide 2 mg capsule 2 mg PO Q1-4H 06/04/19 03/01/25 Hi story dicyclomine 10 mg capsule 10 mg PO TID PRN Abdominal Pain 03/01/25 History dexamethasone 4 mg tablet 20 mg PO DAILY PRN CHEMO 12/17/24 03/01/25 History ondansetron 8 mg disintegrating 8 mg PO Q8 PRN nausea/vomiting 03/01/25 History tablet prochlorperazine maleate 10 mg 10 mg PO BID PRN nausea and 03/01/25 History tablet (Compazine) vomiting Have you fallen in the past year?: No Nurse's Note: Patient is here today to establish care, patient stated she is here due to a rectal bleed. She does not have any abdominal pain, and no nausea or vomiting. Patient first started noticing it after surgery in September of 2024 (Hysterectomy, tumor, reversal of a elonostomy) she stated it just isn't healing up properly. [facility] Medical History (Updated 03/01/25 @ 10:17 by KIRAN Hernández) History of chemotherapy Wears glasses Cancer Anemia History of IBS Non-smoker Ovarian cancer Blood in stool, nikki Surgical History (Updated 03/01/25 @ 10:17 by KIRAN Hernández) History of reversal of ileostomy History of resection of small bowel Hx of colonoscopy H/O: hysterectomy Family History Father CAD (coronary artery disease) Mother No problems noted. Social History adopted: No current occupational status: unemployed Smoking Status: Never smoker alcohol intake: current alcohol intake frequency: holidays/special occasions only substance use type: does not use what type of physical activity do you participate in: walking frequency: 5-6 times per week seatbelt use: always do you feel safe at home: Yes additional social history: Spouse: Cliff ROSIE VELEZ Chief Complaint: rectal bleed Details: SAL BAUTISTA, is a 74 F who presents to the office today for establishment with [facility] regarding melena. She is recovering from ovarian cancer, a patient of . During her original abdominal surgery for tumor removal, she is unsure of exact date, the surgeon had placed an ileostomy due to friable intestinal tissue witnessed from possible cancer involvement in the bowel. She reports that she began to experience dark bloody stools and had referred her to for an investigative colonoscopy and then repeat sigmoidoscopy. referred her to for additional treatment options. She reports having a long history of IBS with mostly diarrhea and she relates some nausea and vomiting with it. She states that quite a bit of her abdominal complaints from IBS ended up being related to her ovarian cancer diagnosis. She denies difficulty chewing and swallowing, cough, throat clearing, nausea, heartburn, reflux, emesis, abdominal bloating, constipation, diarrhea, and hematochezia. She states that her original cancer doctor has me on 1/2 dosing of Miralax daily to keep things soft and moving. 12.21.24 Colonoscopy: Patent end-to-end colo-rectal anastomosis w/erythema and friable tissue; treated w/APC after failed clip applications. 01.10.25 Sigmoidoscopy: Descending colon rectal anastomosis with some friable tissue. Coagulation for hemostasis using argon plasma was successful. ROS Const Constitutional: Positive for fatigue; No chills or fever(s) Eyes Eyes: No change in vision ENT ENT: No abnormal hearing or difficulty swallowing Resp Respiratory: No cough Cardio Cardiology: No chest pain at rest, chest pain with exertion or leg pain with exertion Gastro GI: Positive for Blood in stool and Black,tarry stools; No abdominal pain, belching, bloating, change in bowel habits, change in stool character, coffee ground emesis, constipation, cramping, diarrhea, heartburn, difficulty swallowing, feeling full early, excessive flatus, incontinent of stools, Vomiting blood/hematemesis, loose stools, nausea/dyspepsia, pain with swallowing, vomiting or other Genitourinary-Female: No difficulty urinating Musc Musculoskeletal: No leg pain with exertion Skin Skin: No yellowing of the eye or itchy eyes Neuro Neurology: No abnormal hearing Endo Endocrine: Positive for fati (more content not included)... Normal [facility] CNPNon 02-21-[address] [facility] CBC W Auto Differential pane l (Bld)on 02-03-2025 Basophils (Bld) [#/Vol] 10*3/uL Normal <0.11 [facility] Comment on above: Order Comment: Speci men Type: BLOOD SPECIMENOrdering Facility: [facility] Address: [address] [place] [address] Performed By: #### 5 7021-8 ####[facility] ALISAWIGGYLIA [id number] [place] [address] [place] Basophils/100 WBC (Bld) 0.5 % Normal [facility] Comment on above: Order Comment: Speci men Type: BLOOD SPECIMENOrdering Facility: [facility] Address: [address] [place] [address] Performed By: #### 5 7021-8 ####[facility] PARKIGGYLIA [id number] [place] [address] [place] Differential cell count method Nom (Bld) Auto Normal [facility] Comment on above: Order Comment: Speci men Type: BLOOD SPECIMENOrdering Facility: [facility] Address: [address] [place] [address] Performed By: #### 5 7021-8 ####[facility] PARKIGGYBL[facility] [id number] [place] [address] [place] Eosinophils (Bld) [#/Vol] 0.03 10*3/uL Normal <0.46 [facility] Comment on above: Order Comment: Speci men Type: BLOOD SPECIMENOrdering Facility: [facility] Address: [address] [place] [address] Performed By: #### 5 7021-8 ####[facility] [id number] [place] [address] [place] Eosinophils/100 WBC (Bld) 0.8 % Normal [facility] Comment on above: Order Comment: Speci men Type: BLOOD SPECIMENOrdering Facility: [facility] Address: [address] [place] [address] Performed By: #### 5 7021-8 ####[facility] PARKNCLIA [id number] [place] [address] [place] Erythrocyte distribution width (RBC) [Ratio] 14.2 % Normal 11.5-15.0 [facility] Comment on above: Order Comment: Speci men Type: BLOOD SPECIMENOrdering Facility: [facility] Address: [address] [place] [address] Performed By: #### 5 7021-8 ####[facility] [id number] [place] [address] [place] Hematocrit (Bld) [Volume fraction] 27.6 % Low 36.0-46.0 [facility] Comment on above: Order Comment: Speci men Type: BLOOD SPECIMENOrdering Facility: [facility] Address: [address] [place] [address] Performed By: #### 5 7021-8 ####[facility] [id number] [place] [address] [place] Hemoglobin (Bld) [Mass/Vol] 8.8 g/dL Low 11.5-15.5 [facility] Comment on above: Order Comment: Speci men Type: BLOOD SPECIMENOrdering Facility: [facility] Address: [address] [place] [address] Performed By: #### 5 7021-8 ####[facility] [id number] [place] [address] [place] Immature granulocytes (Bld) [#/Vol] 10*3/uL Normal <0.10 [facility] Comment on above: Order Comment: Speci men Type: BLOOD SPECIMENOrdering Facility: [facility] Address: [address] [place] [address] Performed By: #### 5 7021-8 ####[facility] [id number] [place] [address] [place] Immature granulocytes/100 WBC (Bld) 0.3 % Normal [facility] Comment on above: Order Comment: Speci men Type: BLOOD SPECIMENOrdering Facility: [facility] Address: [address] [place] [address] Performed By: #### 5 7021-8 ####[facility] MILLTOWNCLIA [id number] [place] [address] [place] Lymphocytes (Bld) [#/Vol] 0.53 10*3/uL Low 1.00-4.00 [facility] Comment on above: Order Comment: Speci men Type: BLOOD SPECIMENOrdering Facility: [facility] Address: [address] [place] [address] Performed By: #### 5 7021-8 ####[facility] [id number] [place] [address] [place] Lymphocytes/100 WBC (Bld) 14.6 % Normal [facility] Comment on above: Order Comment: Speci men Type: BLOOD SPECIMENOrdering Facility: [facility] Address: [address] [place] [address] Performed By: #### 5 7021-8 ####[facility]ARK[facility]CL[facility] [id number] [place] [address] [place] MCH (RBC) [Entitic mass] 29.2 pg Normal 26.0-34.0 [facility] Comment on above: Order Comment: Speci men Type: BLOOD SPECIMENOrdering Facility: [facility] Address: [address] [place] [address] Performed By: #### 5 7021-8 ####[facility] MILLTOWNCLIA [id number] [place] [address] [place] MCHC (RBC) [Mass/Vol] 31.9 g/dL Normal 30.5-36.0 [facility] Comment on above: Order Comment: Speci men Type: BLOOD SPECIMENOrdering Facility: [facility] Address: [address] [place] [address] Performed By: #### 5 7021-8 ####[facility] [id number] [place] [address] [place] MCV (RBC) [Entitic vol] 91.7 fL Normal 80.0-100.0 [facility] Comment on above: Order Comment: Speci men Type: BLOOD SPECIMENOrdering Facility: [facility] Address: [address] [place] [address] Performed By: #### 5 7021-8 ####[facility] [id number] [place] [address] [place] Monocytes (Bld) [#/Vol] 0.54 10*3/uL Normal <0.87 [facility] Comment on above: Order Comment: Speci men Type: BLOOD SPECIMENOrdering Facility: [facility] Address: [address] [place] [address] Performed By: #### 5 7021-8 ####[facility] [id number] [place] [address] [place] Monocytes/100 WBC (Bld) 14.8 % Normal [facility] Comment on above: Order Comment: Speci men Type: BLOOD SPECIMENOrdering Facility: [facility] Address: [address] [place] [address] Performed By: #### 5 7021-8 ####[facility] [id number] [place] [address] [place] Neutrophils (Bld) [#/Vol] 2.51 10*3/uL Normal 1.45-7.50 [facility] Comment on above: Order Comment: Speci men Type: BLOOD SPECIMENOrdering Facility: [facility] Address: [address] [place] [address] Performed By: #### 5 7021-8 ####[facility] [id number] [place] [address] [place] Neutrophils/100 WBC (Bld) 69.0 % Normal [facility] Comment on above: Order Comment: Speci men Type: BLOOD SPECIMENOrdering Facility: [facility] Address: [address] [place] [address] Performed By: #### 5 7021-8 ####[facility] [id number] [place] [address] [place] Nucleated RBC (Bld) [#/Vol] 10*3/uL Normal <0.01 [facility] Comment on above: Order Comment: Speci men Type: BLOOD SPECIMENOrdering Facility: [facility] Address: [address] [place] [address] Performed By: #### 5 7021-8 ####[facility] [id number] [place] [address] [place] Nucleated RBC/100 WBC (Bld) [Ratio] 0.0 /[address] [facility] Comment on above: Order Comment: Speci men Type: BLOOD SPECIMENOrdering Facility: [facility] Address: [address] [place] [address] Performed By: #### 5 7021-8 ####[facility] [id number] [place] [address] [place] Platelet mean volume (Bld) [Entitic vol] 9.6 fL Normal 9.0-12.7 [facility] Comment on above: Order Comment: Speci men Type: BLOOD SPECIMENOrdering Facility: [facility] Address: [address] [place] [address] Performed By: #### 5 7021-8 ####[facility] [id number] [place] [address] [place] Platelets (Bld) [#/Vol] 209 10*3/uL Normal 150-400 [facility] Comment on above: Order Comment: Speci men Type: BLOOD SPECIMENOrdering Facility: [facility] Address: [address] [place] [address] Performed By: #### 5 7021-8 ####[facility] ALISAGREENFIELDKATERINA [id number] [place] [address] [place] RBC (Bld) [#/Vol] 3.01 10*6/uL Low 3.90-5.20 [facility] Comment on above: Order Comment: Speci men Type: BLOOD SPECIMENOrdering Facility: [facility] Address: [address] [place] [address] Performed By: #### 5 7021-8 ####[facility]ARKNCL[facility] [id number] [place] [address] [place] WBC (Bld) [#/Vol] 3.64 10*3/uL Low 3.70-11.00 [facility] Comment on above: Order Comment: Speci men Type: BLOOD SPECIMENOrdering Facility: [facility] Address: [address] [place] [address] Performed By: #### 5 7021-8 ####[facility]ARKKATER[facility] [id number] [place] [address] [place] CNOVSPon 02-03-[address] [facility] Cancer Ag125 SerPl-aCncon Cancer Ag 125 Qn 5 [arb'U]/mL Normal <39 [facility] Comment on above: Order Comment: Speci men Type: BLOOD SPECIMENOrdering Facility: [facility] Address: [address] [place] [address] Result Comment: CA 1 25 test methodology used is the Electrochemiluminescence Immunoassay by [employer]. Results obtained with different methods or kits cannot be used interchangeably.The reference interval is based on the 95th percentile of 240 apparently healthy premenopausal and postmenopausal women. At a cutoff value of 65 U/mL, the test sensitivity to distinguish ovarian carcinoma (FIGO stage I to IV) versus benign gynecological disease is 79%, with a specificity of 82%.Reference: Cancer Antigen 125 (CA 125 II) [package insert V 1.0 [place]]. [employer], [place], [place] (July 2015) Performed By: #### 1 0334-1 ####[facility] LABCLIA [id number] [place] [address] [place] [facility] Comprehensive metabolic 2000 panelon 02-03-2025 Albumin [Mass/Vol] 4.3 g/dL Normal 3.9-4.9 [facility] Comment on above: Order Comment: Speci men Type: BLOOD SPECIMENOrdering Facility: [facility] Address: [address] [place] [address] Performed By: #### 2 4323-8 ####[facility]IC[facility] MILLTOWNCLIA [id number] [place] [address] [place] ALP [Catalytic activity/Vol] 62 U/L Normal 34-123 [facility] Comment on above: Order Comment: Speci men Type: BLOOD SPECIMENOrdering Facility: [facility] Address: [address] [place] [address] Performed By: #### 2 4323-8 ####[facility] MILLTOWNCLIA [id number] [address] [place] ALT [Catalytic activity/Vol] 8 U/L Normal 7-38 [facility] Comment on above: Order Comment: Speci men Type: BLOOD SPECIMENOrdering Facility: [facility] Address: [address] [place] [address] Performed By: #### 2 4323-8 ####[facility] PAT[facility]IC[facility] MILLTOWNCLIA [id number] [place] [address] [place] Anion gap [Moles/Vol] 10 mmol/L Normal 8-15 [facility] Comment on above: Order Comment: Speci men Type: BLOOD SPECIMENOrdering Facility: [facility] Address: [address] [place] [address] Performed By: #### 2 4323-8 ####[facility] MILLTOWNCLIA [id number] [place] [address] [place] AST [Catalytic activity/Vol] 13 U/L Normal 13-35 [facility] Comment on above: Order Comment: Speci men Type: BLOOD SPECIMENOrdering Facility: [facility] Address: [address] [place] [address] Performed By: #### 2 4323-8 ####[facility] PAT[facility] MILLTOWNCLIA [id number] [place] [address] [place] Bilirubin [Mass/Vol] 0.2 mg/dL Normal 0.2-1.3 [facility] Comment on above: Order Comment: Speci men Type: BLOOD SPECIMENOrdering Facility: [facility] Address: [address] [place] [address] Performed By: #### 2 4323-8 ####[facility]ITALWNCL[facility] [id number] [place] [address] [place] Calcium [Mass/Vol] 9.3 mg/dL Normal 8.5-10.2 [facility] Comment on above: Order Comment: Speci men Type: BLOOD SPECIMENOrdering Facility: [facility] Address: [address] [place] [address] Performed By: #### 2 4323-8 ####[facility] MILLWNCLIA [id number] [place] [address] [place] Chloride [Moles/Vol] 104 mmol/L Normal 98-107 [facility] Comment on above: Order Comment: Speci men Type: BLOOD SPECIMENOrdering Facility: [facility] Address: [address] [place] [address] Performed By: #### 2 4323-8 ####[facility] PAT[facility]ICIO MILLTOWNCLIA [id number] [place] [address] [place] CO2 [Moles/Vol] 25 mmol/L Normal 22-30 [facility] Comment on above: Order Comment: Speci men Type: BLOOD SPECIMENOrdering Facility: [facility] Address: [address] [place] [address] Performed By: #### 2 4323-8 ####[facility] PATRICIO ALISAGREENFIELDNCDEMETRIO [id number] [place] [address] [place] Creatinine [Mass/Vol] 0.90 mg/dL Normal 0.58-0.96 [facility] Comment on above: Order Comment: Speci men Type: BLOOD SPECIMENOrdering Facility: [facility] Address: [address] [place] [address] Performed By: #### 2 4323-8 ####[facility] [id number] [place] [address] [place] Creatinine and Glomerular filtration rate.predicted panel (S/P/Bld) 68 mL/min/1.73m??? Normal >=60 [facility] Comment on above: Order Comment: Speci men Type: BLOOD SPECIMENOrdering Facility: [facility] Address: [address] [place] [address] Result Comment: Ethel mated Glomerular Filtration Rate (eGFR) is calculated using the 2020 CKD-EPI creatinine equation. This equation utilizes serum creatinine, sex, and age as parameters. The creatinine assay has traceable calibration to isotope dilution-mass spectrometry. Refer to KDIGO guidelines for clinical interpretation. In patients with unstable renal function, e.g. those with acute kidney injury, the eGFR may not accurately reflect actual GFR. Performed By: #### 2 4323-8 ####[facility] PARK[facility]CL[facility] [id number] [place] [address] [place] Glucose [Mass/Vol] 99 mg/dL Normal 74-99 [facility] Comment on above: Order Comment: Speci men Type: BLOOD SPECIMENOrdering Facility: [facility] Address: [address] [place] [address] Result Comment: The [place] Diabetes Association (ADA) provides guidance for cutoff values for fasting glucose and random glucose. The ADA defines fasting as no caloric intake for at least 8 hours. Fasting plasma glucose results between 100 to 125 mg/dL indicate increased risk for diabetes (prediabetes).Fasting plasma glucose results greater than or equal to 126 mg/dL meet the criteria for diagnosis of diabetes. In the absence of unequivocal hyperglycemia, results should be confirmed by repeat testing. In a patient with classic symptoms of hyperglycemia or hyperglycemic crisis, random plasma glucose results greater than or equal to 200 mg/dL meet the criteria for diagnosis of diabetes.Reference: Standards of Medical Care in Diabetes 2016, [place] [employer]. Diabetes Care. 2016.39(Suppl 1). Performed By: #### 2 4323-8 ####[facility] MILLTOWNCLIA [id number] [place] [address] [place] Potassium [Moles/Vol] 4.1 mmol/L Normal 3.7-5.1 [facility] Comment on above: Order Comment: Speci men Type: BLOOD SPECIMENOrdering Facility: [facility] Address: [address] [place] [address] Performed By: #### 2 4323-8 ####[facility] MILLTOWNCLIA [id number] [place] [address] [place] Protein [Mass/Vol] 6.8 g/dL Normal 6.3-8.0 [facility] Comment on above: Order Comment: Speci men Type: BLOOD SPECIMENOrdering Facility: [facility] Address: [address] [place] [address] Performed By: #### 2 4323-8 ####[facility] MILLTOWNCLIA [id number] [place] [address] [place] Sodium [Moles/Vol] 139 mmol/L Normal 136-144 [facility] Comment on above: Order Comment: Speci men Type: BLOOD SPECIMENOrdering Facility: [facility] Address: [address] [place] [address] Performed By: #### 2 4323-8 ####[facility] MILLTOWNCLIA [id number] [place] [address] [place] Urea nitrogen [Mass/Vol] 18 mg/dL Normal 7-21 [facility] Comment on above: Order Comment: Speci men Type: BLOOD SPECIMENOrdering Facility: [facility] Address: [facility] [place] [address] Performed By: #### 2 4323-8 ####[facility] [id number] [place] [address] [place] CNPTOUTREACHon 01-18-[address] [facility] Flex Sigmoidoscopy Reporton 01-10-2025 Flex Sigmoidoscopy Report [facility] Medical Records Department [address] [place] [place] [address] Flex Sigmoidoscopy Report MR#: [id number] Acct: [id number] Name: SAL BAUTISTA Rep #: [id number] : 1950 74 From: Leydi Carmen MD PCP: Dr. Romel Michelle MD Status:[facility] Patient Name: Sal Bautista Procedure Date: 01/10/2025 12:17 PM Date of : 1950 Age: 74 Procedure: Flexible Sigmoidoscopy Indications: Gastrointestinal occult blood loss Providers: Leydi Carmen MD Referring MD: Romel Michelle Medicines: Monitored Anesthesia Care Patient Profile: This is a 74 year old female. Last Colonoscopy: within the past month. Complications: No immediate complications. Procedure: Pre-Anesthesia Assessment: - Prior to the procedure, a History and Physical was performed, and patient medications and allergies were reviewed. The patient's tolerance of previous anesthesia was also reviewed. The risks and benefits of the procedure and the sedation options and risks were discussed with the patient. All questions were answered, and informed consent was obtained. Prior Anticoagulants: The patient has taken no anticoagulant or antiplatelet agents. ASA Grade Assessment: Per anesthesia. After reviewing the risks and benefits, the patient was deemed in satisfactory condition to undergo the procedure. After obtaining informed consent, the endoscope was passed under direct vision. Throughout the procedure, the patient's blood pressure, pulse, and oxygen saturations were monitored continuously. The colonoscope was introduced through the anus and advanced to the descending colon. Scope In: 12:33:06 PM Scope Out: 12:48:59 PM Total Procedure Duration Time 0 hours 15 minutes 53 seconds Findings: Descending colon rectal anastomosis with some friable tissue. Coagulation for hemostasis using argon plasma was successful. Impression: - No specimens collected. Recommendation: - Discharge patient to home. Procedure Code(s): --- Professional --- 23569, PT, Sigmoidoscopy, flexible; with control of bleeding, any method Diagnosis Code(s): --- Professional --- R19.5, Other fecal abnormalities CPT copyright 2021 [place]. All rights reserved. The codes documented in this report are preliminary and upon exercise equipment specialist review may be revised to meet current compliance requirements. MD Leydi Kaba MD 01/10/2025 1:04:25 PM This report has been signed electronically. Number of Addenda: 0 Note Initiated On: 01/10/2025 12:17 PM 01/10/25 1304 Date Leydi Carmen MD Cosigner Signature: Date (if indicated) CC: Dr. Romel Michelle MD; Dr. Leydi Carmen MD Date Dictated: 01/10/25 1217 Date Transcribed: Senior Strategy Analyst: TR Signed [facility] MR/POSTOP.[place] 01-10-2025 MR/POSTOP.[facility] Medical Records Department [address] [place] [address] Anesthesia Postop Eval I 01/10/25 1301 MR#: [id number] Acct: [id number] Name: SAL BAUTISTA Rep #: [id number] : 1950 74 From: Darryl Reeves PCP: Dr. Romel Michelle MD Status:REG SDC Y Race: C Location: [place] [address] Anesthesia: Postop Eval I Current Vital Signs Temperature: 97.1 F Pulse Rate: 64 Blood Pressure: 129/67 Respiratory Rate: 16 Pulse Ox: 99 Oxygen Delivery Method: Room Air Assessment Airway patent: Yes Spontaneous unlabored respirations: Yes Mental status: Asleep nausea: No Vomiting: No Anesthesia Complication: No Fluid Hydration Crystalloid volume administer (ml): 50 Total IV fluid infused: 50 Progress Note Anesthesia document: Postop Eval 1 completed: Yes 01/10/25 1302 Date Darryl Martinez Signature: Date CC: Signed Normal [facility] MR/[id number] 01-10-2025 [facility] Medical Records Department [address] [place] [address] Anesthesia Postop Eval II 01/10/25 1358 MR#: [id number] Acct: [id number] Name: SAL BAUTISTA Rep #: [id number] : 1950 74 From: Carlos Bonilla MD PCP: Dr. Romel Michelle MD Status:REG [facility] [place] Race: C Location: [place] [address] Anesthesia Postop Eval I Sum Postop Eval Completion status Anesthesia document: Postop Eval 1 completed: Yes Anesthesia Postop Eval I Summary Anesthesia Postop Eval I Summary: Anesthesia Postop Eval I: Assessment Summary Airway patent Yes 01/10/25 13:02 [email or web address] Spontaneous unlabored Yes 01/10/25 13:02 [email or web address] respirations Mental status Asleep 01/10/25 13:02 [email or web address] nausea No 01/10/25 13:02 [email or web address] Vomiting No 01/10/25 13:02 [email or web address] Anesthesia Postop Eval I: Fluid Summary Crystalloid volume administer 50 01/10/25 13:02 [email or web address] (ml) Colloids volume administered ( ml) Blood Product volume administered (ml) Total IV fluid infused 50 01/10/25 13:02 [email or web address] Anesthesia Postop Eval I: Summary Notes Anesthesia Complication No 01/10/25 13:02 [email or web address] Anesthesia Complication Comment: Post-operative progress note Anesthesia: Postop Eval II Evaluation Mental status: Awake Pain Level: 0 nausea: No Vomiting: No 01/10/25 1358 Date Carlos Martinez Signature: Date CC: Signed Normal [facility] CNPNon 12-27-[address] [facility] CBC W Auto Differential pane l (Bld)on 12-24-2024 Basophils (Bld) [#/Vol] 10*3/uL Normal <0.11 [facility] Comment on above: Order Comment: Speci men Type: BLOOD SPECIMENOrdering Facility: [facility] Address: [address] [place] [address] Performed By: #### 5 7021-8 ####[facility] [id number] [place] [address] [place] Basophils/100 WBC (Bld) 0.3 % Normal [facility] Comment on above: Order Comment: Speci men Type: BLOOD SPECIMENOrdering Facility: [facility] Address: [address] [place] [address] Performed By: #### 5 7021-8 ####[facility] [id number] [place] [address] [place] Differential cell count method Nom (Bld) Auto Normal [facility] Comment on above: Order Comment: Speci men Type: BLOOD SPECIMENOrdering Facility: [facility] Address: [address] [place] [address] Performed By: #### 5 7021-8 ####[facility] ALISANEALA [id number] [place] [address] [place] Eosinophils (Bld) [#/Vol] 10*3/uL Normal <0.46 [facility] Comment on above: Order Comment: Speci men Type: BLOOD SPECIMENOrdering Facility: [facility] Address: [address] [place] [address] Performed By: #### 5 7021-8 ####[facility] PARKIGGYA [id number] [place] [address] [place] Eosinophils/100 WBC (Bld) 0.0 % Normal [facility] Comment on above: Order Comment: Speci men Type: BLOOD SPECIMENOrdering Facility: [facility] Address: [address] [place] [address] Performed By: #### 5 7021-8 ####[facility] [id number] [place] [address] [place] Erythrocyte distribution width (RBC) [Ratio] 15.5 % High 11.5-15.0 [facility] Comment on above: Order Comment: Speci men Type: BLOOD SPECIMENOrdering Facility: [facility] Address: [address] [place] [address] Performed By: #### 5 7021-8 ####[facility] HOSPITALLIA [id number] [place] [address] [place] Hematocrit (Bld) [Volume fraction] 25.0 % Low 36.0-46.0 [facility] Comment on above: Order Comment: Speci men Type: BLOOD SPECIMENOrdering Facility: [facility] Address: [address] [place] [address] Performed By: #### 5 7021-8 ####[facility] ALISARomeliaNCLIA [id number] [place] [address] [place] Hemoglobin (Bld) [Mass/Vol] 8.4 g/dL Low 11.5-15.5 [facility] Comment on above: Order Comment: Speci men Type: BLOOD SPECIMENOrdering Facility: [facility] Address: [address] [place] [address] Performed By: #### 5 7021-8 ####[facility] PARKIGGYLIA [id number] [place] [address] [place] Immature granulocytes (Bld) [#/Vol] 10*3/uL Normal <0.10 [facility] Comment on above: Order Comment: Speci men Type: BLOOD SPECIMENOrdering Facility: [facility] Address: [address] [place] [address] Performed By: #### 5 7021-8 ####[facility]ITAL[facility] [id number] [place] [address] [place] Immature granulocytes/100 WBC (Bld) 0.0 % Normal [facility] [facility] Comment on above: Order Comment: Speci men Type: BLOOD SPECIMENOrdering Facility: [facility] Address: [address] [place] [address] Performed By: #### 5 7021-8 ####[facility] PARKIGGYLIA [id number] [place] [address] [place] Lymphocytes (Bld) [#/Vol] 0.75 10*3/uL Low 1.00-4.00 [facility] Comment on above: Order Comment: Speci men Type: BLOOD SPECIMENOrdering Facility: [facility] Address: [address] [place] [address] Performed By: #### 5 7021-8 ####[facility] PARKNCLI [id number] [place] [address] [place] Lymphocytes/100 WBC (Bld) 25.4 % Normal [facility] Comment on above: Order Comment: Speci men Type: BLOOD SPECIMENOrdering Facility: [facility] Address: [address] [place] [address] Performed By: #### 5 7021-8 ####[facility] [id number] [place] [address] [place] MCH (RBC) [Entitic mass] 31.0 pg Normal 26.0-34.0 [facility] Comment on above: Order Comment: Speci men Type: BLOOD SPECIMENOrdering Facility: [facility] Address: [address] [place] [address] Performed By: #### 5 7021-8 ####[facility] [id number] [place] [address] [place] MCHC (RBC) [Mass/Vol] 33.6 g/dL Normal 30.5-36.0 [facility] Comment on above: Order Comment: Speci men Type: BLOOD SPECIMENOrdering Facility: [facility] Address: [address] [place] [address] Performed By: #### 5 7021-8 ####[facility] PARKNCLIA [id number] [place] [address] [place] MCV (RBC) [Entitic vol] 92.3 fL Normal 80.0-100.0 [facility] Comment on above: Order Comment: Speci men Type: BLOOD SPECIMENOrdering Facility: [facility] Address: [address] [place] [address] Performed By: #### 5 7021-8 ####[facility] PARKNCLI [id number] [place] [address] [place] Monocytes (Bld) [#/Vol] 0.40 10*3/uL Normal <0.87 [facility] Comment on above: Order Comment: Speci men Type: BLOOD SPECIMENOrdering Facility: [facility] Address: [address] [place] [address] Performed By: #### 5 7021-8 ####[facility] ALISANEALA [id number] [place] [address] [place] Monocytes/100 WBC (Bld) 13.6 % Normal [facility] Comment on above: Order Comment: Speci men Type: BLOOD SPECIMENOrdering Facility: [facility] Address: [address] [place] [address] Performed By: #### 5 7021-8 ####[facility] [id number] [place] [address] [place] Neutrophils (Bld) [#/Vol] 1.79 10*3/uL Normal 1.45-7.50 [facility] Comment on above: Order Comment: Speci men Type: BLOOD SPECIMENOrdering Facility: [facility] Address: [address] [place] [address] Performed By: #### 5 7021-8 ####[facility]ITALA [id number] [place] [address] [place] Neutrophils/100 WBC (Bld) 60.7 % Normal [facility] Comment on above: Order Comment: Speci men Type: BLOOD SPECIMENOrdering Facility: [facility] Address: [address] [place] [address] Performed By: #### 5 7021-8 ####[facility] PARKNCLIA [id number] [place] [address] [place] Nucleated RBC (Bld) [#/Vol] 10*3/uL Normal <0.01 [facility] Comment on above: Order Comment: Speci men Type: BLOOD SPECIMENOrdering Facility: [facility] Address: [address] [place] [address] Performed By: #### 5 7021-8 ####[facility] ALISAJULIUSLIA [id number] [place] [address] [place] Nucleated RBC/100 WBC (Bld) [Ratio] 0.0 /[address] [facility] Comment on above: Order Comment: Speci men Type: BLOOD SPECIMENOrdering Facility: [facility] Address: [address] [place] [address] Performed By: #### 5 7021-8 ####[facility] PARKKATERINA [id number] [place] [address] [place] Platelet mean volume (Bld) [Entitic vol] 9.1 fL Normal 9.0-12.7 [facility] Comment on above: Order Comment: Speci men Type: BLOOD SPECIMENOrdering Facility: [facility] Address: [address] [place] [address] Performed By: #### 5 7021-8 ####[facility] HOSPITALBoo [id number] [place] [address] [place] Platelets (Bld) [#/Vol] 121 10*3/uL Low 150-400 [facility] Comment on above: Order Comment: Speci men Type: BLOOD SPECIMENOrdering Facility: [facility] Address: [address] [place] [address] Performed By: #### 5 7021-8 ####[facility] HOSPITALOPALA [id number] [place] [address] [place] RBC (Bld) [#/Vol] 2.71 10*6/uL Low 3.90-5.20 [facility] Comment on above: Order Comment: Speci men Type: BLOOD SPECIMENOrdering Facility: [facility] Address: [address] [place] [address] Performed By: #### 5 7021-8 ####[facility] [id number] [place] [address] [place] WBC (Bld) [#/Vol] 2.95 10*3/uL Low 3.70-11.00 [facility] Comment on above: Order Comment: Speci men Type: BLOOD SPECIMENOrdering Facility: [facility] Address: [address] [place] [address] Performed By: #### 5 7021-8 ####[facility] [id number] [place] [address] [place] Cancer Ag125 SerPl-aCncon Cancer Ag 125 Qn 5 [arb'U]/mL Normal <39 [facility] Comment on above: Order Comment: Speci men Type: BLOOD SPECIMENOrdering Facility: [facility] Address: [address] [place] [address] Result Comment: CA 1 25 test methodology used is the Electrochemiluminescence Immunoassay by [employer]. Results obtained with different methods or kits cannot be used interchangeably.The reference interval is based on the 95th percentile of 240 apparently healthy premenopausal and postmenopausal women. At a cutoff value of 65 U/mL, the test sensitivity to distinguish ovarian carcinoma (FIGO stage I to IV) versus benign gynecological disease is 79%, with a specificity of 82%.Reference: Cancer Antigen 125 (CA 125 II) [package insert V 1.0 [place]i]. [employer], [place], [place] (July 2015) Performed By: #### 1 0334-1 ####[facility] LABCLIA [id number] [place] [address] [place] Comprehensive metabolic 2000 panelon 12-24-2024 Albumin [Mass/Vol] 4.2 g/dL Normal 3.9-4.9 [facility] Comment on above: Order Comment: Speci men Type: BLOOD SPECIMENOrdering Facility: [facility] Address: [address] [place] [address] Performed By: #### 2 4323-8, 73376-9 ####[facility] PARKNCLIA [id number] [place] [address] [place] ALP [Catalytic activity/Vol] 72 U/L Normal 34-123 [facility] Comment on above: Order Comment: Speci men Type: BLOOD SPECIMENOrdering Facility: [facility] Address: [address] [place] [address] Performed By: #### 2 4323-8, ####[facility] MILLWNCLIA [id number] [place] [address] [place] ALT [Catalytic activity/Vol] 12 U/L Normal 7-38 [facility] Comment on above: Order Comment: Speci men Type: BLOOD SPECIMENOrdering Facility: [facility] Address: [address] [place] [address] Performed By: #### 2 4323-8, ####[facility] PARKNCLIA [id number] [place] [address] [place] Anion gap [Moles/Vol] 11 mmol/L Normal 8-15 [facility] Comment on above: Order Comment: Speci men Type: BLOOD SPECIMENOrdering Facility: [facility] Address: [address] [place] [address] Performed By: #### 2 4323-8, ####[facility] PARKNCLIA [id number] [place] [address] [place] AST [Catalytic activity/Vol] 14 U/L Normal 13-35 [facility] Comment on above: Order Comment: Speci men Type: BLOOD SPECIMENOrdering Facility: [facility] Address: [address] [place] [address] Performed By: #### 2 4323-8, ####[facility] PARKNCLIA [id number] [place] [address] [place] Bilirubin [Mass/Vol] mg/dL Low 0.2-1.3 [facility] Comment on above: Order Comment: Speci men Type: BLOOD SPECIMENOrdering Facility: [facility] Address: [address] [place] [address] Performed By: #### 2 4323-8, ####[facility] PATRICIO ROONEYKATERINA [id number] [place] [address] [place] Calcium [Mass/Vol] 9.0 mg/dL Normal 8.5-10.2 [facility] Comment on above: Order Comment: Speci men Type: BLOOD SPECIMENOrdering Facility: [facility] Address: [address] [place] [address] Performed By: #### 2 4323-8, ####[facility] PATRICIO ALISARomeliaNCDEMETRIO [id number] [place] [address] [place] Chloride [Moles/Vol] 101 mmol/L Normal 98-107 [facility] Comment on above: Order Comment: Speci men Type: BLOOD SPECIMENOrdering Facility: [facility] Address: [address] [place] [address] Performed By: #### 2 4323-8, ####[facility] PATRICIO ALISAEDGARKATERINA [id number] [place] [address] [place] CO2 [Moles/Vol] 23 mmol/L Normal 22-30 [facility] Comment on above: Order Comment: Speci men Type: BLOOD SPECIMENOrdering Facility: [facility] Address: [address] [place] [address] Performed By: #### 2 4323-8, ####[facility] PATRICIOCOPLEY HOSPITALRomeliaNCLIA [id number] [place] [address] [place] Creatinine [Mass/Vol] 0.73 mg/dL Normal 0.58-0.96 [facility] Comment on above: Order Comment: Speci men Type: BLOOD SPECIMENOrdering Facility: [facility] Address: [address] [place] [address] Performed By: #### 2 4323-8, 19854-3 ####[facility] [id number] [place] [address] [place] Creatinine and Glomerular filtration rate.predicted panel (S/P/Bld) 88 mL/min/1.73m??? Normal >=60 [facility] Comment on above: Order Comment: Cheng cooley Type: BLOOD SPECIMENOrdering Facility: [facility] Address: [address] [place] [address] Result Comment: Ethel mated Glomerular Filtration Rate (eGFR) is calculated using the 2020 CKD-EPI creatinine equation. This equation utilizes serum creatinine, sex, and age as parameters. The creatinine assay has traceable calibration to isotope dilution-mass spectrometry. Refer to KDIGO guidelines for clinical interpretation. In patients with unstable renal function, e.g. those with acute kidney injury, the eGFR may not accurately reflect actual GFR. Performed By: #### 2 4323-8, 50021-3 ####[facility] [id number] [place] [address] [place] Glucose [Mass/Vol] 83 mg/dL Normal 74-99 [facility] Comment on above: Order Comment: Cheng cooley Type: BLOOD SPECIMENOrdering Facility: [facility] Address: [address] [place] [address] Result Comment: The [place] Diabetes Association (ADA) provides guidance for cutoff values for fasting glucose and random glucose. The ADA defines fasting as no caloric intake for at least 8 hours. Fasting plasma glucose results between 100 to 125 mg/dL indicate increased risk for diabetes (prediabetes).Fasting plasma glucose results greater than or equal to 126 mg/dL meet the criteria for diagnosis of diabetes. In the absence of unequivocal hyperglycemia, results should be confirmed by repeat testing. In a patient with classic symptoms of hyperglycemia or hyperglycemic crisis, random plasma glucose results greater than or equal to 200 mg/dL meet the criteria for diagnosis of diabetes.Reference: Standards of Medical Care in Diabetes 2016, [place] [employer] Association. Diabetes Care. 2016.39(Suppl 1). Performed By: #### 2 4323-8, ####[facility] PATRICIO MILLTOWNCLIA [id number] [place] [address] [place] Potassium [Moles/Vol] 3.8 mmol/L Normal 3.7-5.1 [facility] Comment on above: Order Comment: Speci men Type: BLOOD SPECIMENOrdering Facility: [facility] Address: [address] [place] [address] Performed By: #### 2 432-8, ####[facility] MILLTOWNCLIA [id number] [place] [address] [place] Protein [Mass/Vol] 6.7 g/dL Normal 6.3-8.0 [facility] Comment on above: Order Comment: Speci men Type: BLOOD SPECIMENOrdering Facility: [facility] Address: [address] [place] [address] Performed By: #### 2 4328, ####[facility] MILLTOWIGGYLIA [id number] [place] [address] [place] Sodium [Moles/Vol] 135 mmol/L Low 136-144 [facility] Comment on above: Order Comment: Speci men Type: BLOOD SPECIMENOrdering Facility: [facility] Address: [address] [place] [address] Performed By: #### 2 4323-8, ####[facility] MILLTOWNCLIA [id number] [place] [address] [place] Urea nitrogen [Mass/Vol] 14 mg/dL Normal 7-21 [facility] Comment on above: Order Comment: Speci men Type: BLOOD SPECIMENOrdering Facility: [facility] Address: [address] [place] [address] Performed By: #### 2 4323-8, ####[facility] PATRICIO MILLTOWNCLIA [id number] [place] [address] [place] Magnesium SerPl-mCncon 12-24 Magnesium [Mass/Vol] 2.2 mg/dL Normal 1.7-2.3 [facility] Comment on above: Order Comment: Speci men Type: BLOOD SPECIMENOrdering Facility: [facility] Address: [facility] [place] [address] Performed By: #### 2 4323-8, 27958-7 ####[facility] [id number] [place] [address] [place] UA DIP, URINE (POC)on 2024 BILIRUBIN UA (POCT) Negative Negative [facility] CLARITY UA (POCT) Clear [facility] COLOR UA (POCT) Yellow [facility] GLUCOSE UA (POCT) Negative Negative mg/dL [facility] Hemoglobin Ql (U) Negative Negative [facility] Interpretation and review of laboratory results Abnormal [facility] KETONE UA (POCT) Negative Negative mg/dL [facility] LEUKOCYTES UA (POCT) Negative Negative [facility] NITRITE UA (POCT) Negative Negative [facility] PH UA (POCT) 5.5 4.5 - 8.0 [facility] Protein Ql (U) Negative Negative mg/dL [facility] SPECIFIC GRAVITY UA (POCT) <=1.005 Abnormal 1.005 - 1.030 [facility] UROBILINOGEN UA (POCT) 0.2 Normal E.U./dL [facility] Location:[facility], [address] [place], [place], [id number] [place] [address] POINT OF CARE [facility] Colonoscopy Reporton 025 Colonoscopy Report [facility] Medical Records Department [address] [place] [address] Colonoscopy Report MR#: [id number] Acct: [id number] Name: SAL BAUTISTA Rep #: [id number] : 1950 74 From: Leydi Carmen MD PCP: Dr. Romel Michelle MD Status:[facility] Patient Name: Sal Bautista Procedure Date: 12/21/2024 10:40 AM Date of : 1950 Age: 74 Procedure: Colonoscopy Indications: Rectal bleeding Providers: Leydi Carmen MD Referring MD: Romel Michelle Medicines: Monitored Anesthesia Care Patient Profile: This is a 74 year old female. Last Colonoscopy: 2016. She is status post sigmoid colectomy and ileostomy reversal within the past six months. Complications: No immediate complications. Procedure: Pre-Anesthesia Assessment: - Prior to the procedure, a History and Physical was performed, and patient medications and allergies were reviewed. The patient's tolerance of previous anesthesia was also reviewed. The risks and benefits of the procedure and the sedation options and risks were discussed with the patient. All questions were answered, and informed consent was obtained. Prior Anticoagulants: The patient has taken no anticoagulant or antiplatelet agents except for aspirin. ASA Grade Assessment: Per anesthesia. After reviewing the risks and benefits, the patient was deemed in satisfactory condition to undergo the procedure. After I obtained informed consent, the scope was passed under direct vision. Throughout the procedure, the patient's blood pressure, pulse, and oxygen saturations were monitored continuously. The pediatric colonoscope was introduced through the anus and advanced to the cecum, identified by the appendiceal orifice, ileocecal valve and palpation. The colonoscopy was performed without difficulty. The patient tolerated the procedure well. The quality of the bowel preparation was good. Scope In: 10:48:17 AM Scope Withdrawal Time 0 hours 33 minutes 33 seconds Scope Out: 11:36:55 AM Total Procedure Duration Time 0 hours 48 minutes 38 seconds Findings: The perianal and digital rectal examinations were normal. There was evidence of a prior end-to-end colo-rectal anastomosis in the rectum. This was patent and was characterized by erythema and friable mucosa. The anastomosis was traversed. Coagulation for hemostasis using argon plasma was successful. Estimated blood loss was minimal. Initially did attempt to clip however this did not work well thus the clips were removed???1 with snare and 1 fell off and APC was used on the friable tissue with good results. The exam was otherwise without abnormality. Impression: - Patent end-to-end colo-rectal anastomosis, characterized by erythema and friable mucosa. Treated with argon plasma coagulation (APC). - The examination was otherwise normal. - No specimens collected. Recommendation: - Discharge patient to home. - Resume previous diet. - Continue present medications. - Repeat colonoscopy depending on overall health at that time. Procedure Code(s): --- Professional --- 69270, Colonoscopy, flexible; with control of bleeding, any method Diagnosis Code(s): --- Professional --- Z98.0, Intestinal bypass and anastomosis status K62.5, Hemorrhage of anus and rectum CPT copyright 2021 [place] [employer]. All rights reserved. The codes documented in this report are preliminary and upon exercise equipment specialist review may be revised to meet current compliance requirements. MD Leydi Kaba MD 12/21/2024 11:48:07 AM This report has been signed electronically. Number of Addenda: 0 Note Initiated On: 12/21/2024 10:40 AM 12/21/24 1148 Date Leydi Carmen MD Cosigner Signature: Date (if indicated) CC: Dr. Romel Michelle MD; Dr. Leydi Carmen MD Date Dictated: 12/21/24 1040 Date Transcribed: Senior Strategy Analyst: TR Signed [facility] MR/POSTOP.[facility] 12-21-2024 MR/POSTOP.[facility] Medical Records Department [address] [place] [address] Anesthesia Postop Eval I 12/21/24 1400 MR#: [id number] Acct: [id number] Name: SAL BAUTISTA Rep #: [id number] : 1950 74 From: Jason Billy CRNA PCP: Dr. Romel Michelle MD Status:[facility] Y Race: C Location: EN Anesthesia: Postop Eval I Current Vital Signs Temperature: 98.5 F Pulse Rate: 82 Blood Pressure: 92/52 Respiratory Rate: 16 Pulse Ox: 99 Assessment Airway patent: Yes Spontaneous unlabored respirations: Yes nausea: No Vomiting: No Anesthesia Complication: No Fluid Hydration Crystalloid volume administer (ml): 30 Total IV fluid infused: 30 Progress Note Anesthesia document: Postop Eval 1 completed: Yes 12/21/24 1400 Date Jason Poquott MIRROR FABRICATION SUPERVISOR Cosigner Signature: Date CC: Signed Normal [facility] MR/[id number] 12-21-2024 MR/POSTOPAN2 [facility] Medical Records Department [address] [place] [address] Anesthesia Postop Eval II 12/21/24 1412 MR#: [id number] Acct: [id number] Name: SAL BAUTISTA Rep #: [id number] : 1950 74 From: Federico Joshua MD PCP: Dr. Romel Michelle MD Status:[facility] Y Race: C Location: EN Anesthesia Postop Eval I Sum Postop Eval Completion status Anesthesia document: Postop Eval 1 completed: Yes Anesthesia Postop Eval I Summary Anesthesia Postop Eval I Summary: Anesthesia Postop Eval I: Assessment Summary Airway patent Yes 12/21/24 14:00 MIRROR FABRICATION SUPERVISOR.TNES Spontaneous unlabored Yes 12/21/24 14:00 MIRROR FABRICATION SUPERVISOR.TNES respirations Mental status nausea No 12/21/24 14:00 MIRROR FABRICATION SUPERVISOR.TNES Vomiting No 12/21/24 14:00 MIRROR FABRICATION SUPERVISOR.TNES Anesthesia Postop Eval I: Fluid Summary Crystalloid volume administer 30 12/21/24 14:00 MIRROR FABRICATION SUPERVISOR.TNES (ml) Colloids volume administered ( ml) Blood Product volume administered (ml) Total IV fluid infused 30 12/21/24 14:00 MIRROR FABRICATION SUPERVISOR.TNES Anesthesia Postop Eval I: Summary Notes Anesthesia Complication No 12/21/24 14:00 MIRROR FABRICATION SUPERVISOR.TNES Anesthesia Complication Comment: Post-operative progress note Anesthesia: Postop Eval II Evaluation Mental status: Awake Pain Level: 0 nausea: No Vomiting: No Complications Anesthesia Complication: No 12/21/24 1412 Date Federico Lópezigner Signature: Date CC: Signed Normal [facility] Surgery Visit Reporton 12-17 Surgery Visit Report [facility] [address] [place] [address]. [address] [place] [address] OFFICE VISIT Date of Service: 12/17/24 MR#: [id number] Acct: [id number] Name: SAL BAUTISTA Rep #: [id number] : 1950 Provider: Dr. Leydi burt MD Age/Sex: 74/F Location: [facility] Status: Signed Intake Vital Signs 09/04/21 14:32 12/17/24 08:51 Height 5 ft 5 in 5 ft 5 in Weight: 122 lb BMI 20.2 BP 105/63 Blood Pressure Location Rt brachial Position Sitting Respiration 18 Pulse 71 Pulse Source Monitor Temp 97.2 F L Temp Source Temporal Pulse Oximetry (%) 98 Oxygen Delivery Method room air Intake Visit Reasons: RECTAL BLEED Chief Complaint: rectal bleed Accompanied by: Is patient in pain?: No Allergies No Known Allergies Allergy (Verified 09/04/21 14:31) Medications ???Medication ???Instructions ???Recorded ???Confirmed ???Type loperamide 2 mg capsule 2 mg PO Q1-4H 06/04/19 09/04/21 Hi story dicyclomine 10 mg capsule 10 mg PO TID PRN Abdominal Pain History cholecalciferol (vitamin D3) 50 50 mcg PO QDAY 12/17/24 12/17/24 H istory mcg (2,000 unit) capsule dexamethasone 4 mg tablet 20 mg PO 12/17/24 12/17/24 History nutrutional supplement (JAYLIN FARMS PO 12/17/24 History STANDARD 1.4) 0.06G-1.4Kcal/mL oral liquid ondansetron 8 mg disintegrating 8 mg PO Q8 PRN nausea/vomiting 12/17/24 History tablet prochlorperazine maleate 10 mg 10 mg PO BID PRN 12/17/24 12/17/24 History tablet (Compazine) Have you fallen in the past year?: No PFSH Medical History (Updated 12/17/24 @ 08:50 by Bushra Wiseman LPN) Ovarian cancer Blood in stool, nikki Surgical History (Updated 12/17/24 @ 08:50 by Bushra Wiseman LPN) History of reversal of ileostomy History of resection of small bowel Hx of colonoscopy H/O: hysterectomy Family History Father CAD (coronary artery disease) Mother No problems noted. Social History adopted: No current occupational status: unemployed Smoking Status: Never smoker alcohol intake: current alcohol intake frequency: holidays/special occasions only substance use type: does not use what type of physical activity do you participate in: walking frequency: 5-6 times per week seatbelt use: always do you feel safe at home: Yes additional social history: Spouse: Cliff ROSIE HPI HPI: 74-year-old female presents for colonoscopy due to bleeding per rectum. Patient states after her surgery in September she did have a bit of diarrhea due to the reversal of the ileostomy and she did notice some bright red blood from her rectum at that time. Patient states she does have bowel movements daily states it has improved over this time but still does occasionally have some blood which will tinged that water of the toilet. Patient denies any abdominal pain or any nausea or vomiting. Patient last colonoscopy was in [address] Hughes. Patient is currently being treated by Dr. Hall for ovarian cancer and will be changing her regimen to include medications that may further exacerbate bleeding so he recommended colonoscopy prior to starting. ROS General General: No weight change, appetite, fatigue, colon cancer, breast cancer or weakness Additional Details: ovarian cancer HEENT HEENT: No difficulty swallowing, eye injury, eye surgery, swollen glands or hoarseness Endo Endocrine: No thyroid disease, diabetes mellitus, thyroid cancer, Hair loss, heat intolerance or cold intolerance Skin Skin: No rash or changing moles Musc Musculoskeletal: No back problems, arthritis, rheumatoid arthritis, gout or joint pain Cardio Cardiovascular: No murmur, pacemaker, heart disease, atrial fibrillation, high blood pressure, heart attack, heart stent, palpitations, shortness of breath with exertion or chest pain Psych Psychiatric: No depression, anxiety or hearing voices Resp Respiratory: No shortness of breath, No sleep apnea, No cough, No COPD, No asthma, No emphysema and No wheezing Gastro Gastrointestinal: No abdominal pain, No nausea or vomiting, No diarrhea, No constipation, Yes blood in stool, No acid reflux, No hemorrhoids, No ulcers, No gallbladder problem and No black,tarry stools [place] Hematologic: No blood thinners, No blood disorders, No bleeding, Yes anemia and No blood clots Neuro Neurologic: No numbness, No tingling and No weakness Exam Const General: cooperative, healthy appearing, comfortable and no acute distress HENMT Head: normocephalic and atraumatic Neck Neck: supple Resp Effort Inspection: normal respiratory effort Cardio Rate: regular rate GI Inspection: non- (more content not included)... Normal [facility] CT ABD/PEL W IVCONon 025 CT ABD/PEL W IVCON [facility] CHEST W IVCONon 5 CT CHEST W IVCON Normal [facility] CBC W Auto Differential pane l (Bld)on 12-03-2024 Basophils (Bld) [#/Vol] 10*3/uL Normal <0.11 [facility] Comment on above: Order Comment: Speci men Type: BLOOD SPECIMENOrdering Facility: [facility] Address: [address] [place] [address] Performed By: #### 5 7021-8 ####[facility] [id number] [place] [id number] [place] Basophils/100 WBC (Bld) 0.0 % Normal [facility] Comment on above: Order Comment: Speci men Type: BLOOD SPECIMENOrdering Facility: [facility] Address: [address] [place] [address] Performed By: #### 5 7021-8 ####[facility] [id number] [place] [address] [place] Differential cell count method Nom (Bld) Auto Normal [facility] Comment on above: Order Comment: Speci men Type: BLOOD SPECIMENOrdering Facility: [facility] Address: [address] [place] [address] Performed By: #### 5 7021-8 ####[facility] [id number] [place] [address] [place] Eosinophils (Bld) [#/Vol] 10*3/uL Normal <0.46 [facility] Comment on above: Order Comment: Speci men Type: BLOOD SPECIMENOrdering Facility: [facility] Address: [address] [place] [address] Performed By: #### 5 7021-8 ####[facility] [id number] [place] [address] [place] Eosinophils/100 WBC (Bld) 0.0 % Normal [facility] Comment on above: Order Comment: Speci men Type: BLOOD SPECIMENOrdering Facility: [facility] Address: [address] [place] [address] Performed By: #### 5 7021-8 ####[facility] [id number] [place] [address] [place] Erythrocyte distribution width (RBC) [Ratio] 14.6 % Normal 11.5-15.0 [facility] Comment on above: Order Comment: Speci men Type: BLOOD SPECIMENOrdering Facility: [facility] Address: [address] [place] [address] Performed By: #### 5 7021-8 ####[facility] [id number] [place] [address] [place] Hematocrit (Bld) [Volume fraction] 28.0 % Low 36.0-46.0 [facility] Comment on above: Order Comment: Speci men Type: BLOOD SPECIMENOrdering Facility: [facility] Address: [address] [place] [address] Performed By: #### 5 7021-8 ####[facility] [id number] [place] [address] [place] Hemoglobin (Bld) [Mass/Vol] 9.4 g/dL Low 11.5-15.5 [facility] Comment on above: Order Comment: Speci men Type: BLOOD SPECIMENOrdering Facility: [facility] Address: [address] [place] [address] Performed By: #### 5 7021-8 ####[facility] [id number] [place] [address] [place] Immature granulocytes (Bld) [#/Vol] 10*3/uL Normal <0.10 [facility] Comment on above: Order Comment: Speci men Type: BLOOD SPECIMENOrdering Facility: [facility] Address: [address] [place] [address] Performed By: #### 5 7021-8 ####[facility] [id number] [place] [address] [place] Immature granulocytes/100 WBC (Bld) 0.5 % Normal [facility] Comment on above: Order Comment: Speci men Type: BLOOD SPECIMENOrdering Facility: [facility] Address: [address] [place] [address] Performed By: #### 5 7021-8 ####[facility] [id number] [place] [address] [place] Lymphocytes (Bld) [#/Vol] 0.46 10*3/uL Low 1.00-4.00 [facility] Comment on above: Order Comment: Speci men Type: BLOOD SPECIMENOrdering Facility: [facility] Address: [address] [place] [address] Performed By: #### 5 7021-8 ####[facility] [id number] [place] [address] [place] Lymphocytes/100 WBC (Bld) 12.2 % Normal [facility] Comment on above: Order Comment: Speci men Type: BLOOD SPECIMENOrdering Facility: [facility] Address: [address] [place] [address] Performed By: #### 5 7021-8 ####[facility] [id number] [place] [address] [place] MCH (RBC) [Entitic mass] 30.8 pg Normal 26.0-34.0 [facility] Comment on above: Order Comment: Speci men Type: BLOOD SPECIMENOrdering Facility: [facility] Address: [address] [place] [address] Performed By: #### 5 7021-8 ####[facility] [id number] [place] [address] [place] MCHC (RBC) [Mass/Vol] 33.6 g/dL Normal 30.5-36.0 [facility] Comment on above: Order Comment: Speci men Type: BLOOD SPECIMENOrdering Facility: [facility] Address: [address] [place] [address] Performed By: #### 5 7021-8 ####[facility] PARKNCLI [id number] [place] [address] [place] MCV (RBC) [Entitic vol] 91.8 fL Normal 80.0-100.0 [facility] Comment on above: Order Comment: Speci men Type: BLOOD SPECIMENOrdering Facility: [facility] Address: [address] [place] [address] Performed By: #### 5 7021-8 ####[facility] ALISAWNCLIA [id number] [place] [address] [place] Monocytes (Bld) [#/Vol] 10*3/uL Normal <0.87 [facility] Comment on above: Order Comment: Speci men Type: BLOOD SPECIMENOrdering Facility: [facility] Address: [address] [place] [address] Performed By: #### 5 7021-8 ####[facility]ITALWNCLIA [id number] [place] [address] [place] Monocytes/100 WBC (Bld) 0.5 % Normal [facility] Comment on above: Order Comment: Speci men Type: BLOOD SPECIMENOrdering Facility: [facility] Address: [address] [place] [address] Performed By: #### 5 7021-8 ####[facility] PARKNCLIA [id number] [place] [address] [place] Neutrophils (Bld) [#/Vol] 3.26 10*3/uL Normal 1.45-7.50 [facility] Comment on above: Order Comment: Speci men Type: BLOOD SPECIMENOrdering Facility: [facility] Address: [address] [place] [address] Performed By: #### 5 7021-8 ####[facility] MILLTOWNCLIA [id number] [place] [address] [place] Neutrophils/100 WBC (Bld) 86.8 % Normal [facility] Comment on above: Order Comment: Speci men Type: BLOOD SPECIMENOrdering Facility: [facility] Address: [address] [place] [address] Performed By: #### 5 7021-8 ####[facility] [id number] [place] [address] [place] Nucleated RBC (Bld) [#/Vol] 10*3/uL Normal <0.01 [facility] Comment on above: Order Comment: Speci men Type: BLOOD SPECIMENOrdering Facility: [facility] Address: [address] [place] [address] Performed By: #### 5 7021-8 ####[facility] PARKIGGYDEMETRIO [id number] [place] [address] [place] Nucleated RBC/100 WBC (Bld) [Ratio] 0.0 /[address] [facility] Comment on above: Order Comment: Speci men Type: BLOOD SPECIMENOrdering Facility: [facility] Address: [address] [place] [address] Performed By: #### 5 7021-8 ####[facility] PARKIGGYBoo [id number] [place] [address] [place] Platelet mean volume (Bld) [Entitic vol] 9.8 fL Normal 9.0-12.7 [facility] Comment on above: Order Comment: Speci men Type: BLOOD SPECIMENOrdering Facility: [facility] Address: [address] [place] [address] Performed By: #### 5 7021-8 ####[facility] [id number] [place] [address] [place] Platelets (Bld) [#/Vol] 100 10*3/uL Low 150-400 [facility] Comment on above: Order Comment: Speci men Type: BLOOD SPECIMENOrdering Facility: [facility] Address: [address] [place] [address] Result Comment: No c lot detected. Performed By: #### 5 7021-8 ####[facility] PARKNCLIBoo [id number] [place] [address] [place] RBC (Bld) [#/Vol] 3.05 10*6/uL Low 3.90-5.20 [facility] Comment on above: Order Comment: Speci men Type: BLOOD SPECIMENOrdering Facility: [facility] Address: [address] [place] [address] Performed By: #### 5 7021-8 ####[facility] ALISASANDRA [id number] [place] [address] [place] WBC (Bld) [#/Vol] 3.76 10*3/uL Normal 3.70-11.00 [facility] Comment on above: Order Comment: Speci men Type: BLOOD SPECIMENOrdering Facility: [facility] Address: [address] [place] [address] Performed By: #### 5 7021-8 ####[facility] [id number] [place] [address] [place] CBC W Auto Differential pane l (Bld)on 12-02-2024 Basophils (Bld) [#/Vol] 10*3/uL Normal <0.11 [facility] Comment on above: Order Comment: Speci men Type: BLOOD SPECIMENOrdering Facility: [facility] Address: [address] [place] [address] Performed By: #### 5 7021-8 ####[facility] [id number] [place] [address] [place] Basophils/100 WBC (Bld) 0.4 % Normal [facility] Comment on above: Order Comment: Speci men Type: BLOOD SPECIMENOrdering Facility: [facility] Address: [address] [place] [address] Performed By: #### 5 7021-8 ####[facility] PARKKATERINA [id number] [place] [address] [place] Differential cell count method Nom (Bld) Auto Normal [facility] Comment on above: Order Comment: Speci men Type: BLOOD SPECIMENOrdering Facility: [facility] Address: [address] [place] [address] Performed By: #### 5 7021-8 ####[facility] TORIBIONCLIA [id number] [place] [address] [place] Eosinophils (Bld) [#/Vol] 10*3/uL Normal <0.46 [facility] Comment on above: Order Comment: Speci men Type: BLOOD SPECIMENOrdering Facility: [facility] Address: [address] [place] [address] Performed By: #### 5 7021-8 ####[facility] PARKIGGYLIA [id number] [place] [address] [place] Eosinophils/100 WBC (Bld) 0.9 % Normal [facility] Comment on above: Order Comment: Speci men Type: BLOOD SPECIMENOrdering Facility: [facility] Address: [address] [place] [address] Performed By: #### 5 7021-8 ####[facility] PARKNCLIA [id number] [place] [address] [place] Erythrocyte distribution width (RBC) [Ratio] 14.4 % Normal 11.5-15.0 [facility] Comment on above: Order Comment: Speci men Type: BLOOD SPECIMENOrdering Facility: [facility] Address: [address] [place] [address] Performed By: #### 5 7021-8 ####[facility] PARKIGGYLIA [id number] [place] [address] [place] Hematocrit (Bld) [Volume fraction] 28.0 % Low 36.0-46.0 [facility] Comment on above: Order Comment: Speci men Type: BLOOD SPECIMENOrdering Facility: [facility] Address: [address] [place] [address] Performed By: #### 5 7021-8 ####[facility] ALISAGREENFIELDNCLIA [id number] [place] [address] [place] Hemoglobin (Bld) [Mass/Vol] 9.2 g/dL Low 11.5-15.5 [facility] Comment on above: Order Comment: Speci men Type: BLOOD SPECIMENOrdering Facility: [facility] Address: [address] [place], [place] [address] Performed By: #### 5 7021-8 ####[facility]ITALL[facility] [id number] [place] [address] [place] Immature granulocytes (Bld) [#/Vol] 10*3/uL Normal <0.10 [facility] Comment on above: Order Comment: Speci men Type: BLOOD SPECIMENOrdering Facility: [facility] Address: [address] [place] [address] Performed By: #### 5 7021-8 ####[facility] [id number] [place] [address] [place] Immature granulocytes/100 WBC (Bld) 0.0 % Normal [facility] Comment on above: Order Comment: Speci men Type: BLOOD SPECIMENOrdering Facility: [facility] Address: [address] [place], [place] [address] Performed By: #### 5 7021-8 ####[facility] [id number] [place] [address] [place] Lymphocytes (Bld) [#/Vol] 0.87 10*3/uL Low 1.00-4.00 [facility] Comment on above: Order Comment: Speci men Type: BLOOD SPECIMENOrdering Facility: [facility] Address: [address] [place] [address] Performed By: #### 5 7021-8 ####[facility] PARKNCLIA [id number] [place] [address] [place] Lymphocytes/100 WBC (Bld) 37.3 % Normal [facility] Comment on above: Order Comment: Speci men Type: BLOOD SPECIMENOrdering Facility: [facility] Address: [address] [place] [address] Performed By: #### 5 7021-8 ####[facility] [id number] [place] [address] [place] MCH (RBC) [Entitic mass] 30.9 pg Normal 26.0-34.0 [facility] Comment on above: Order Comment: Speci men Type: BLOOD SPECIMENOrdering Facility: [facility] Address: [address] [place] [address] Performed By: #### 5 7021-8 ####[facility] [id number] [place] [address] [place] MCHC (RBC) [Mass/Vol] 32.9 g/dL Normal 30.5-36.0 [facility] Comment on above: Order Comment: Speci men Type: BLOOD SPECIMENOrdering Facility: [facility] Address: [address] [place] [address] Performed By: #### 5 7021-8 ####[facility] PARKNCLIA [id number] [place] [address] [place] MCV (RBC) [Entitic vol] 94.0 fL Normal 80.0-100.0 [facility] Comment on above: Order Comment: Speci men Type: BLOOD SPECIMENOrdering Facility: [facility] Address: [address] [place] [address] Performed By: #### 5 7021-8 ####[facility] [id number] [place] [address] [place] Monocytes (Bld) [#/Vol] 0.39 10*3/uL Normal <0.87 [facility] Comment on above: Order Comment: Speci men Type: BLOOD SPECIMENOrdering Facility: [facility] Address: [address] [place] [address] Performed By: #### 5 7021-8 ####[facility] ALISAGREENFIELDKATERIN [id number] [place] [address] [place] Monocytes/100 WBC (Bld) 16.7 % Normal [facility] Comment on above: Order Comment: Speci men Type: BLOOD SPECIMENOrdering Facility: [facility] Address: [address] [place] [address] Performed By: #### 5 7021-8 ####[facility] [id number] [place] [address] [place] Neutrophils (Bld) [#/Vol] 1.04 10*3/uL Low 1.45-7.50 [facility] Comment on above: Order Comment: Speci men Type: BLOOD SPECIMENOrdering Facility: [facility] Address: [address] [place] [address] Performed By: #### 5 7021-8 ####[facility] [id number] [place] [address] [place] Neutrophils/100 WBC (Bld) 44.7 % Normal [facility] Comment on above: Order Comment: Speci men Type: BLOOD SPECIMENOrdering Facility: [facility] Address: [address] [place] [address] Performed By: #### 5 7021-8 ####[facility] [id number] [place] [address] [place] Nucleated RBC (Bld) [#/Vol] 10*3/uL Normal <0.01 [facility] Comment on above: Order Comment: Speci men Type: BLOOD SPECIMENOrdering Facility: [facility] Address: [address] [place] [address] Performed By: #### 5 7021-8 ####[facility] PARKNCLIA [id number] [place] [address] [place] Nucleated RBC/100 WBC (Bld) [Ratio] 0.0 /[address] [facility] Comment on above: Order Comment: Speci men Type: BLOOD SPECIMENOrdering Facility: [facility] Address: [address] [place] [address] Performed By: #### 5 7021-8 ####[facility] PARKNCLIA [id number] [place] [address] [place] Platelet mean volume (Bld) [Entitic vol] 10.1 fL Normal 9.0-12.7 [facility] Comment on above: Order Comment: Speci men Type: BLOOD SPECIMENOrdering Facility: [facility] Address: [address] [place] [address] Performed By: #### 5 7021-8 ####[facility] PARKNCLIA [id number] [place] [address] [place] Platelets (Bld) [#/Vol] 105 10*3/uL Low 150-400 [facility] Comment on above: Order Comment: Speci men Type: BLOOD SPECIMENOrdering Facility: [facility] Address: [address] [place] [address] Result Comment: No c lot detected. Performed By: #### 5 7021-8 ####[facility] PARKNCLIA [id number] [place] [address] [place] RBC (Bld) [#/Vol] 2.98 10*6/uL Low 3.90-5.20 [facility] Comment on above: Order Comment: Speci men Type: BLOOD SPECIMENOrdering Facility: [facility] Address: [address] [place] [address] Performed By: #### 5 7021-8 ####[facility] PARKIGGYLIA [id number] [place] [id number] [place] WBC (Bld) [#/Vol] 2.33 10*3/uL Low 3.70-11.00 [facility] Comment on above: Order Comment: Speci men Type: BLOOD SPECIMENOrdering Facility: [facility] Address: [address] [place] [address] Performed By: #### 5 7021-8 ####[facility] PATRICIO [facility] [id number] [place] [id number] [place] CNOVSPon 12-02-[address] [facility] CNPNon 12-02-[address] [facility] Cancer Ag125 SerPl-aCncon Cancer Ag 125 Qn 6 [arb'U]/mL Normal <39 [facility] Comment on above: Order Comment: Cheng cooley Type: BLOOD SPECIMENOrdering Facility: [facility] Address: [address] [place] [address] Result Comment: CA 1 25 test methodology used is the Electrochemiluminescence Immunoassay by [employer]. Results obtained with different methods or kits cannot be used interchangeably.The reference interval is based on the 95th percentile of 240 apparently healthy premenopausal and postmenopausal women. At a cutoff value of 65 U/mL, the test sensitivity to distinguish ovarian carcinoma (FIGO stage I to IV) versus benign gynecological disease is 79%, with a specificity of 82%.Reference: Cancer Antigen 125 (CA 125 II) [package insert V 1.0 [place]i]. [employer] [facility], [place], [place] (July 2015) Performed By: #### 1 0334-1 ####[facility] LABORATORYCLIA [id number] [place] [address] [place] Comprehensive metabolic 2000 panelon 12-02-2024 Albumin [Mass/Vol] 4.3 g/dL Normal 3.9-4.9 [facility] Comment on above: Order Comment: Speci men Type: BLOOD SPECIMENOrdering Facility: [facility] Address: [address] [place] [address] Performed By: #### 2 4323-8, 85937-0 ####[facility] PATRICIO MILLTOWNCLIA [id number] [place] [address] [place] ALP [Catalytic activity/Vol] 69 U/L Normal 34-123 [facility] Comment on above: Order Comment: Speci men Type: BLOOD SPECIMENOrdering Facility: [facility] Address: [address] [place] [address] Performed By: #### 2 4323-8, ####[facility] MILLTOWNCLIA [id number] [place] [address] [place] ALT [Catalytic activity/Vol] 11 U/L Normal 7-38 [facility] Comment on above: Order Comment: Speci men Type: BLOOD SPECIMENOrdering Facility: [facility] Address: [address] [place] [address] Performed By: #### 2 4323-8, ####[facility]OSPITALWNCLIA [id number] [place] [address] [place] Anion gap [Moles/Vol] 9 mmol/L Normal 8-15 [facility] Comment on above: Order Comment: Speci men Type: BLOOD SPECIMENOrdering Facility: [facility] Address: [address] [place] [address] Performed By: #### 2 4323-8, ####[facility] MILLTOWNCLIA [id number] [place] [address] [place] AST [Catalytic activity/Vol] 15 U/L Normal 13-35 [facility] Comment on above: Order Comment: Speci men Type: BLOOD SPECIMENOrdering Facility: [facility] Address: [address] [place] [address] Performed By: #### 2 4323-8, 47649-5 ####[facility]OSPITALWNCLIA [id number] [place] [address] [place] Bilirubin [Mass/Vol] mg/dL Low 0.2-1.3 [facility] Comment on above: Order Comment: Speci men Type: BLOOD SPECIMENOrdering Facility: [facility] Address: [address] [place] [address] Performed By: #### 2 4323-8, 90901-7 ####[facility] MILLTOWIGGYLIA [id number] [place] [address] [place] Calcium [Mass/Vol] 9.5 mg/dL Normal 8.5-10.2 [facility] Comment on above: Order Comment: Speci men Type: BLOOD SPECIMENOrdering Facility: [facility] Address: [address] [place] [address] Performed By: #### 2 4323-8, 32812-7 ####[facility] HOSPITALWIGGYLIA [id number] [place] [address] [place] Chloride [Moles/Vol] 102 mmol/L Normal 98-107 [facility] Comment on above: Order Comment: Speci men Type: BLOOD SPECIMENOrdering Facility: [facility] Address: [address] [place] [address] Performed By: #### 2 4323-8, ####[facility] MILLWIGGYLIA [id number] [place] [address] [place] CO2 [Moles/Vol] 26 mmol/L Normal 22-30 [facility] Comment on above: Order Comment: Speci men Type: BLOOD SPECIMENOrdering Facility: [facility] Address: [address] [place] [address] Performed By: #### 2 4323-8, ####[facility] MILLTOWNCLIA [id number] [place] [address] [place] Creatinine [Mass/Vol] 0.85 mg/dL Normal 0.58-0.96 [facility] Comment on above: Order Comment: Cheng cooley Type: BLOOD SPECIMENOrdering Facility: [facility] Address: [address] [place] [address] Performed By: #### 2 4323-8, ####[facility] [id number] [place] [address] [place] Creatinine and Glomerular filtration rate.predicted panel (S/P/Bld) 73 mL/min/1.73m??? Normal >=60 [facility] Comment on above: Order Comment: Cheng cooley Type: BLOOD SPECIMENOrdering Facility: [facility] Address: [address] [place] [address] Result Comment: Ethel mated Glomerular Filtration Rate (eGFR) is calculated using the 2020 CKD-EPI creatinine equation. This equation utilizes serum creatinine, sex, and age as parameters. The creatinine assay has traceable calibration to isotope dilution-mass spectrometry. Refer to KDIGO guidelines for clinical interpretation. In patients with unstable renal function, e.g. those with acute kidney injury, the eGFR may not accurately reflect actual GFR. Performed By: #### 2 4323-8, ####[facility] [id number] [place] [address] [place] Glucose [Mass/Vol] 95 mg/dL Normal 74-99 [facility] Comment on above: Order Comment: Cheng cooley Type: BLOOD SPECIMENOrdering Facility: [facility] Address: [address] [place] [address] Result Comment: The [place] Diabetes Association (ADA) provides guidance for cutoff values for fasting glucose and random glucose. The ADA defines fasting as no caloric intake for at least 8 hours. Fasting plasma glucose results between 100 to 125 mg/dL indicate increased risk for diabetes (prediabetes).Fasting plasma glucose results greater than or equal to 126 mg/dL meet the criteria for diagnosis of diabetes. In the absence of unequivocal hyperglycemia, results should be confirmed by repeat testing. In a patient with classic symptoms of hyperglycemia or hyperglycemic crisis, random plasma glucose results greater than or equal to 200 mg/dL meet the criteria for diagnosis of diabetes.Reference: Standards of Medical Care in Diabetes 2016, [place] Diabetes Association. Diabetes Care. 2016.39(Suppl 1). Performed By: #### 2 4323-8, 18692-4 ####[facility] PATRICIO ROONEYNCOPALA [id number] [place] [address] [place] Potassium [Moles/Vol] 4.2 mmol/L Normal 3.7-5.1 [facility] Comment on above: Order Comment: Speci men Type: BLOOD SPECIMENOrdering Facility: [facility] Address: [address] [place], [place] [address] Performed By: #### 2 4323-8, 09490-1 ####[facility] PARKNCOPALA [id number] [place] [address] [place] Protein [Mass/Vol] 6.8 g/dL Normal 6.3-8.0 [facility] Comment on above: Order Comment: Speci men Type: BLOOD SPECIMENOrdering Facility: [facility] Address: [address] [place], [place] [address] Performed By: #### 2 4323-8, 59822-2 ####[facility] PARKKATERINA [id number] [place] [address] [place] Sodium [Moles/Vol] 137 mmol/L Normal 136-144 [facility] Comment on above: Order Comment: Speci men Type: BLOOD SPECIMENOrdering Facility: [facility] Address: [address] [place] [address] Performed By: #### 2 4323-8, ####[facility] PARKNCLIA [id number] [place] [address] [place] Urea nitrogen [Mass/Vol] 18 mg/dL Normal 7-21 [facility] Comment on above: Order Comment: Speci men Type: BLOOD SPECIMENOrdering Facility: [facility] Address: [address] [place], [place] [address] Performed By: #### 2 4323-8, 05817-0 ####[facility] ALISAMOLINA [id number] [place] [address] [place] [facility] Magnesium SerPl-mCncon 12-02 Magnesium [Mass/Vol] 2.0 mg/dL Normal 1.7-2.3 [facility] Comment on above: Order Comment: Speci men Type: BLOOD SPECIMENOrdering Facility: [facility] Address: [address] [place] [address] Performed By: #### 2 4323-8, 49180-9 ####[facility] ALISASANDRA [id number] [place] [address] [place] CBC W Auto Differential pane l (Bld)on 11-11-2024 Basophils (Bld) [#/Vol] 0.03 10*3/uL Normal <0.11 [facility] Comment on above: Order Comment: Speci men Type: BLOOD SPECIMENOrdering Facility: [facility] Address: [address] [place] [address] Performed By: #### 5 7021-8 ####[facility] PARKCALVIN [id number] [address] [place] Basophils/100 WBC (Bld) 0.8 % Normal [facility] Comment on above: Order Comment: Speci men Type: BLOOD SPECIMENOrdering Facility: [facility] Address: [address] [place] [address] Performed By: #### 5 7021-8 ####[facility] PARKCALVIN [id number] [address] [place] [facility] Differential cell count method Nom (Bld) Auto Normal [facility] Comment on above: Order Comment: Speci men Type: BLOOD SPECIMENOrdering Facility: [facility] Address: [address] [place] [address] Performed By: #### 5 7021-8 ####[facility] MILLWNCLIA [id number] [place] [address] [place] Eosinophils (Bld) [#/Vol] 0.04 10*3/uL Normal <0.46 [facility] Comment on above: Order Comment: Speci men Type: BLOOD SPECIMENOrdering Facility: [facility] Address: [address] [place] [address] Performed By: #### 5 7021-8 ####[facility] PARKIGGYLIA [id number] [place] [address] [place] Eosinophils/100 WBC (Bld) 1.0 % Normal [facility] Comment on above: Order Comment: Speci men Type: BLOOD SPECIMENOrdering Facility: [facility] Address: [address] [place] [address] Performed By: #### 5 7021-8 ####[facility] PARKIGGYLIA [id number] [place] [address] [place] Erythrocyte distribution width (RBC) [Ratio] 13.4 % Normal 11.5-15.0 [facility] Comment on above: Order Comment: Speci men Type: BLOOD SPECIMENOrdering Facility: [facility] Address: [address] [place] [address] Performed By: #### 5 7021-8 ####[facility] PARKIGGYLIA [id number] [place] [address] [place] Hematocrit (Bld) [Volume fraction] 30.1 % Low 36.0-46.0 [facility] Comment on above: Order Comment: Speci men Type: BLOOD SPECIMENOrdering Facility: [facility] Address: [address] [place] [address] Performed By: #### 5 7021-8 ####[facility] PARKNCLIA [id number] [place] [address] [place] Hemoglobin (Bld) [Mass/Vol] 9.8 g/dL Low 11.5-15.5 [facility] Comment on above: Order Comment: Speci men Type: BLOOD SPECIMENOrdering Facility: [facility] Address: [address] [place] [address] Performed By: #### 5 7021-8 ####[facility] HOSPITALWMTLIA [id number] [place] [address] [place] Immature granulocytes (Bld) [#/Vol] 10*3/uL Normal <0.10 [facility] Comment on above: Order Comment: Speci men Type: BLOOD SPECIMENOrdering Facility: [facility] Address: [address] [place] [address] Performed By: #### 5 7021-8 ####[facility]OSPITALLIA [id number] [address] [place] Immature granulocytes/100 WBC (Bld) 0.3 % Normal [facility] Comment on above: Order Comment: Speci men Type: BLOOD SPECIMENOrdering Facility: [facility] Address: [address] [place] [address] Performed By: #### 5 7021-8 ####[facility] HOSPITALLIA [id number] [place] [address] [place] Lymphocytes (Bld) [#/Vol] 0.99 10*3/uL Low 1.00-4.00 [facility] Comment on above: Order Comment: Speci men Type: BLOOD SPECIMENOrdering Facility: [facility] Address: [address] [place] [address] Performed By: #### 5 7021-8 ####[facility] HOSPITALLIA [id number] [place] [address] [place] Lymphocytes/100 WBC (Bld) 26.0 % Normal [facility] Comment on above: Order Comment: Speci men Type: BLOOD SPECIMENOrdering Facility: [facility] Address: [address] [place] [address] Performed By: #### 5 7021-8 ####[facility] ALISAGREENFIELDCALVIN [id number] [place] [address] [place] MCH (RBC) [Entitic mass] 30.2 pg Normal 26.0-34.0 [facility] Comment on above: Order Comment: Speci men Type: BLOOD SPECIMENOrdering Facility: [facility] Address: [address] [place] [address] Performed By: #### 5 7021-8 ####[facility]ARKNCBL[facility] [id number] [place] [address] [place] MCHC (RBC) [Mass/Vol] 32.6 g/dL Normal 30.5-36.0 [facility] Comment on above: Order Comment: Speci men Type: BLOOD SPECIMENOrdering Facility: [facility] Address: [address] [place] [address] Performed By: #### 5 7021-8 ####[facility] [id number] [place] [address] [place] MCV (RBC) [Entitic vol] 92.9 fL Normal 80.0-100.0 [facility] Comment on above: Order Comment: Speci men Type: BLOOD SPECIMENOrdering Facility: [facility] Address: [address] [place] [address] Performed By: #### 5 7021-8 ####[facility] [id number] [place] [address] [place] Monocytes (Bld) [#/Vol] 0.38 10*3/uL Normal <0.87 [facility] Comment on above: Order Comment: Speci men Type: BLOOD SPECIMENOrdering Facility: [facility] Address: [address] [place] [address] Performed By: #### 5 7021-8 ####[facility] MILLWNCLIA [id number] [place] [address] [place] Monocytes/100 WBC (Bld) 10.0 % Normal [facility] Comment on above: Order Comment: Speci men Type: BLOOD SPECIMENOrdering Facility: [facility] Address: [address] [place] [address] Performed By: #### 5 7021-8 ####[facility] PARKNCLIA [id number] [place] [address] [place] Neutrophils (Bld) [#/Vol] 2.36 10*3/uL Normal 1.45-7.50 [facility] Comment on above: Order Comment: Speci men Type: BLOOD SPECIMENOrdering Facility: [facility] Address: [address] [place] [address] Performed By: #### 5 7021-8 ####[facility]OSPITALLIA [id number] [place] [address] [place] Neutrophils/100 WBC (Bld) 61.9 % Normal [facility] Comment on above: Order Comment: Speci men Type: BLOOD SPECIMENOrdering Facility: [facility] Address: [address] [place] [address] Performed By: #### 5 7021-8 ####[facility]PITALLIA [id number] [place] [address] [place] Nucleated RBC (Bld) [#/Vol] 10*3/uL Normal <0.01 [facility] Comment on above: Order Comment: Speci men Type: BLOOD SPECIMENOrdering Facility: [facility] Address: [address] [place] [address] Performed By: #### 5 7021-8 ####[facility] PARKNCLIA [id number] [place] [address] [place] Nucleated RBC/100 WBC (Bld) [Ratio] 0.0 /[address] [facility] Comment on above: Order Comment: Speci men Type: BLOOD SPECIMENOrdering Facility: [facility] Address: [address] [place] [address] Performed By: #### 5 7021-8 ####[facility] W[facility] PARKNCLI [id number] [place] [address] [place] Platelet mean volume (Bld) [Entitic vol] 8.9 fL Low 9.0-12.7 [facility] Comment on above: Order Comment: Speci men Type: BLOOD SPECIMENOrdering Facility: [facility] Address: [address] [place] [address] Performed By: #### 5 7021-8 ####[facility]ARKNCBL[facility] [id number] [place] [address] [place] Platelets (Bld) [#/Vol] 165 10*3/uL Normal 150-400 [facility] Comment on above: Order Comment: Speci men Type: BLOOD SPECIMENOrdering Facility: [facility] Address: [address] [place] [address] Performed By: #### 5 7021-8 ####[facility] PARKNCLIA [id number] [place] [address] [place] RBC (Bld) [#/Vol] 3.24 10*6/uL Low 3.90-5.20 [facility] Comment on above: Order Comment: Speci men Type: BLOOD SPECIMENOrdering Facility: [facility] Address: [address] [place] [address] Performed By: #### 5 7021-8 ####[facility] PARKNCLIA [id number] [place] [address] [place] WBC (Bld) [#/Vol] 3.81 10*3/uL Normal 3.70-11.00 [facility] Comment on above: Order Comment: Speci men Type: BLOOD SPECIMENOrdering Facility: [facility] Address: [address] [place] [address] Performed By: #### 5 7021-8 ####[facility] [id number] [place] [address] [place] CNOVSPon 11-11-[address] [facility] Cancer Ag125 SerPl-aCncon Cancer Ag 125 Qn 7 [arb'U]/mL Normal <39 [facility] Comment on above: Order Comment: Bekakimberly cooley Type: BLOOD SPECIMENOrdering Facility: [facility] Address: [address] [place] [address] Result Comment: CA 1 25 test methodology used is the Electrochemiluminescence Immunoassay by [employer]. Results obtained with different methods or kits cannot be used interchangeably.The reference interval is based on the 95th percentile of 240 apparently healthy premenopausal and postmenopausal women. At a cutoff value of 65 U/mL, the test sensitivity to distinguish ovarian carcinoma (FIGO stage I to IV) versus benign gynecological disease is 79%, with a specificity of 82%.Reference: Cancer Antigen 125 (CA 125 II) [package insert V 1.0 [place]]. [employer], [place], [place] (July 2015) Performed By: #### 1 0334-1 ####[facility] LABCLIA [id number] [place] [address] [place] Comprehensive metabolic 2000 panelon 11-11-2024 Albumin [Mass/Vol] 4.5 g/dL Normal 3.9-4.9 [facility] Comment on above: Order Comment: Speci yasir Type: BLOOD SPECIMENOrdering Facility: [facility] Address: [address] [place] [address] Performed By: #### 2 4323-8, 02011-0 ####[facility] PARKNCLIA [id number] [place] [address] [place] ALP [Catalytic activity/Vol] 73 U/L Normal 34-123 [facility] Comment on above: Order Comment: Speci men Type: BLOOD SPECIMENOrdering Facility: [facility] Address: [address] [place] [address] Performed By: #### 2 4323-8, ####[facility]PITALWNCLIA [id number] [place] [address] [place] ALT [Catalytic activity/Vol] 13 U/L Normal 7-38 [facility] Comment on above: Order Comment: Speci men Type: BLOOD SPECIMENOrdering Facility: [facility] Address: [address] [place] [address] Performed By: #### 2 4323-8, ####[facility]PITALWNCLIA [id number] [place] [address] [place] Anion gap [Moles/Vol] 13 mmol/L Normal 8-15 [facility] Comment on above: Order Comment: Speci men Type: BLOOD SPECIMENOrdering Facility: [facility] Address: [address] [place] [address] Performed By: #### 2 4323-8, ####[facility] PARKNCLIA [id number] [place] [address] [place] AST [Catalytic activity/Vol] 15 U/L Normal 13-35 [facility] Comment on above: Order Comment: Speci men Type: BLOOD SPECIMENOrdering Facility: [facility] Address: [address] [place], [place] [address] Performed By: #### 2 4323-8, ####[facility] PARKNCLIA [id number] [place] [address] [place] Bilirubin [Mass/Vol] 0.2 mg/dL Normal 0.2-1.3 [facility] Comment on above: Order Comment: Speci men Type: BLOOD SPECIMENOrdering Facility: [facility] Address: [address] [place], [place] [address] Performed By: #### 2 4323-8, 79416-8 ####[facility] PATRICIO BAMLIA [id number] [place] [address] [place] Calcium [Mass/Vol] 10.1 mg/dL Normal 8.5-10.2 [facility] Comment on above: Order Comment: Speci men Type: BLOOD SPECIMENOrdering Facility: [facility] Address: [address] [place], [place] [address] Performed By: #### 2 4323-8, ####[facility] ALISAALEXANDREANCDEMETRIO [id number] [place] [address] [place] Chloride [Moles/Vol] 98 mmol/L Normal 98-107 [facility] Comment on above: Order Comment: Speci men Type: BLOOD SPECIMENOrdering Facility: [facility] Address: [address] [place], [place] [address] Performed By: #### 2 4323-8, ####[facility] ALISAGREENFIELDNCOPALA [id number] [place] [address] [place] CO2 [Moles/Vol] 28 mmol/L Normal 22-30 [facility] Comment on above: Order Comment: Speci men Type: BLOOD SPECIMENOrdering Facility: [facility] Address: [address] [place] [address] Performed By: #### 2 4323-8, ####[facility] ALISAWNCLIA [id number] [place] [address] [place] Creatinine [Mass/Vol] 0.77 mg/dL Normal 0.58-0.96 [facility] Comment on above: Order Comment: Speci men Type: BLOOD SPECIMENOrdering Facility: [facility] Address: [address] [place] [address] Performed By: #### 2 4323-8, 69268-6 ####[facility]PITALWNCLIA [id number] [place] [address] [place] Creatinine and Glomerular filtration rate.predicted panel (S/P/Bld) 82 mL/min/1.73m??? Normal >=60 [facility] Comment on above: Order Comment: Cheng cooley Type: BLOOD SPECIMENOrdering Facility: [facility] Address: [address] [place] [address] Result Comment: Ethel mated Glomerular Filtration Rate (eGFR) is calculated using the 2020 CKD-EPI creatinine equation. This equation utilizes serum creatinine, sex, and age as parameters. The creatinine assay has traceable calibration to isotope dilution-mass spectrometry. Refer to KDIGO guidelines for clinical interpretation. In patients with unstable renal function, e.g. those with acute kidney injury, the eGFR may not accurately reflect actual GFR. Performed By: #### 2 4323-8, 74619-9 ####[facility] [id number] [place] [address] [place] Glucose [Mass/Vol] 105 mg/dL High 74-99 [facility] Comment on above: Order Comment: Cheng cooley Type: BLOOD SPECIMENOrdering Facility: [facility] Address: [address] [place] [address] Result Comment: The [place] Diabetes Association (ADA) provides guidance for cutoff values for fasting glucose and random glucose. The ADA defines fasting as no caloric intake for at least 8 hours. Fasting plasma glucose results between 100 to 125 mg/dL indicate increased risk for diabetes (prediabetes).Fasting plasma glucose results greater than or equal to 126 mg/dL meet the criteria for diagnosis of diabetes. In the absence of unequivocal hyperglycemia, results should be confirmed by repeat testing. In a patient with classic symptoms of hyperglycemia or hyperglycemic crisis, random plasma glucose results greater than or equal to 200 mg/dL meet the criteria for diagnosis of diabetes.Reference: Standards of Medical Care in Diabetes 2016, [place] [employer]. Diabetes Care. 2016.39(Suppl 1). Performed By: #### 2 4323-8, 94057-3 ####[facility] [id number] [place] [address] [place] Potassium [Moles/Vol] 3.6 mmol/L Low 3.7-5.1 [facility] Comment on above: Order Comment: Speci men Type: BLOOD SPECIMENOrdering Facility: [facility] Address: [address] [place] [address] Performed By: #### 2 4323-8, ####[facility] MILLTOWNCLIA [id number] [place] [address] [place] Protein [Mass/Vol] 7.3 g/dL Normal 6.3-8.0 [facility] Comment on above: Order Comment: Speci men Type: BLOOD SPECIMENOrdering Facility: [facility] Address: [address] [place] [address] Performed By: #### 2 4323-8, ####[facility] [facility] MILLTOWNCLIA [id number] [place] [address] [place] Sodium [Moles/Vol] 139 mmol/L Normal 136-144 [facility] Comment on above: Order Comment: Speci men Type: BLOOD SPECIMENOrdering Facility: [facility] Address: [address] [place] [address] Performed By: #### 2 4323-8, ####[facility] MILLTOWNCLIA [id number] [place] [address] [place] Urea nitrogen [Mass/Vol] 19 mg/dL Normal 7-21 [facility] Comment on above: Order Comment: Speci men Type: BLOOD SPECIMENOrdering Facility: [facility] Address: [address] [place] [address] Performed By: #### 2 4323-8, 46439-4 ####[facility] MILLTOWNCLIA [id number] [place] [address] [place] Magnesium SerPl-mCncon 11-11 Magnesium [Mass/Vol] 2.0 mg/dL Normal 1.7-2.3 [facility] Comment on above: Order Comment: Speci men Type: BLOOD SPECIMENOrdering Facility: [facility] Address: [address] [place] [address] Performed By: #### 2 4323-8, 59525-4 ####[facility]ARK[facility] [id number] [place] [address] [place] CBC W Auto Differential pane l (Bld)on 10-22-2024 Basophils (Bld) [#/Vol] 10*3/uL Normal <0.11 [facility] Comment on above: Order Comment: Speci men Type: BLOOD SPECIMENOrdering Facility: [facility] Address: [address] [place] [address] Performed By: #### 5 7021-8 ####[facility] [id number] [place] [address] [place] Basophils/100 WBC (Bld) 0.1 % Normal [facility] Comment on above: Order Comment: Speci men Type: BLOOD SPECIMENOrdering Facility: [facility] Address: [address] [place] [address] Performed By: #### 5 7021-8 ####[facility] PARKIGGYBoo [id number] [address] [place] Differential cell count method Nom (Bld) Auto Normal [facility] Comment on above: Order Comment: Speci men Type: BLOOD SPECIMENOrdering Facility: [facility] Address: [address] [place] [address] Performed By: #### 5 7021-8 ####[facility] [id number] [place] [address] [place] Eosinophils (Bld) [#/Vol] 10*3/uL Normal <0.46 [facility] Comment on above: Order Comment: Speci men Type: BLOOD SPECIMENOrdering Facility: [facility] Address: [address] [place] [address] Performed By: #### 5 7021-8 ####[facility] [id number] [place] [address] [place] Eosinophils/100 WBC (Bld) 0.0 % Normal [facility] Comment on above: Order Comment: Speci men Type: BLOOD SPECIMENOrdering Facility: [facility] Address: [address] [place] [address] Performed By: #### 5 7021-8 ####[facility] [id number] [place] [address] [place] Erythrocyte distribution width (RBC) [Ratio] 13.4 % Normal 11.5-15.0 [facility] Comment on above: Order Comment: Speci men Type: BLOOD SPECIMENOrdering Facility: [facility] Address: [address] [place] [address] Performed By: #### 5 7021-8 ####[facility] [id number] [place] [address] [place] Hematocrit (Bld) [Volume fraction] 31.4 % Low 36.0-46.0 [facility] Comment on above: Order Comment: Speci men Type: BLOOD SPECIMENOrdering Facility: [facility] Address: [address] [place] [address] Performed By: #### 5 7021-8 ####[facility] PARKNCLIA [id number] [place] [address] [place] Hemoglobin (Bld) [Mass/Vol] 10.3 g/dL Low 11.5-15.5 [facility] Comment on above: Order Comment: Speci men Type: BLOOD SPECIMENOrdering Facility: [facility] Address: [address] [place] [address] Performed By: #### 5 7021-8 ####[facility] MILLWNCLIA [id number] [place] [address] [place] Immature granulocytes (Bld) [#/Vol] 0.03 10*3/uL Normal <0.10 [facility] Comment on above: Order Comment: Speci men Type: BLOOD SPECIMENOrdering Facility: [facility] Address: [address] [place] [address] Performed By: #### 5 7021-8 ####[facility]PITALWNCLIA [id number] [place] [address] [place] Immature granulocytes/100 WBC (Bld) 0.4 % Normal [facility] Comment on above: Order Comment: Speci men Type: BLOOD SPECIMENOrdering Facility: [facility] Address: [address] [place] [address] Performed By: #### 5 7021-8 ####[facility]ITALL[facility] [id number] [place] [address] [place] Lymphocytes (Bld) [#/Vol] 0.60 10*3/uL Low 1.00-4.00 [facility] Comment on above: Order Comment: Speci men Type: BLOOD SPECIMENOrdering Facility: [facility] Address: [address] [place] [address] Performed By: #### 5 7021-8 ####[facility] MILLTOWNCLIA [id number] [place] [address] [place] Lymphocytes/100 WBC (Bld) 8.3 % Normal [facility] Comment on above: Order Comment: Speci men Type: BLOOD SPECIMENOrdering Facility: [facility] Address: [address] [place] [address] Performed By: #### 5 7021-8 ####[facility] MILLWNCLIA [id number] [place] [address] [place] MCH (RBC) [Entitic mass] 30.3 pg Normal 26.0-34.0 [facility] Comment on above: Order Comment: Speci men Type: BLOOD SPECIMENOrdering Facility: [facility] Address: [address] [place] [address] Performed By: #### 5 7021-8 ####[facility] PARKIGGYBL[facility] MOUNT[facility] [id number] [address] [place] MCHC (RBC) [Mass/Vol] 32.8 g/dL Normal 30.5-36.0 [facility] Comment on above: Order Comment: Speci men Type: BLOOD SPECIMENOrdering Facility: [facility] Address: [address] [place] [address] Performed By: #### 5 7021-8 ####[facility] [id number] [address] [place] MCV (RBC) [Entitic vol] 92.4 fL Normal 80.0-100.0 [facility] Comment on above: Order Comment: Speci men Type: BLOOD SPECIMENOrdering Facility: [facility] Address: [address] [place] [address] Performed By: #### 5 7021-8 ####[facility] PARKIGGYBoo [id number] [place] [address] [place] Monocytes (Bld) [#/Vol] 0.05 10*3/uL Normal <0.87 [facility] Comment on above: Order Comment: Speci men Type: BLOOD SPECIMENOrdering Facility: [facility] Address: [address] [place] [address] Performed By: #### 5 7021-8 ####[facility] PARKNCLI [id number] [place] [address] [place] Monocytes/100 WBC (Bld) 0.7 % Normal [facility] Comment on above: Order Comment: Speci men Type: BLOOD SPECIMENOrdering Facility: [facility] Address: [address] [place] [address] Performed By: #### 5 7021-8 ####[facility] PARKNCLIA [id number] [place] [address] [place] Neutrophils (Bld) [#/Vol] 6.57 10*3/uL Normal 1.45-7.50 [facility] Comment on above: Order Comment: Speci men Type: BLOOD SPECIMENOrdering Facility: [facility] Address: [address] [place] [address] Performed By: #### 5 7021-8 ####[facility] [id number] [place] [address] [place] Neutrophils/100 WBC (Bld) 90.5 % Normal [facility] Comment on above: Order Comment: Speci men Type: BLOOD SPECIMENOrdering Facility: [facility] Address: [address] [place] [address] Performed By: #### 5 7021-8 ####[facility]ITALA [id number] [place] [address] [place] Nucleated RBC (Bld) [#/Vol] 10*3/uL Normal <0.01 [facility] Comment on above: Order Comment: Speci men Type: BLOOD SPECIMENOrdering Facility: [facility] Address: [address] [place] [address] Performed By: #### 5 7021-8 ####[facility] [id number] [place] [address] [place] Nucleated RBC/100 WBC (Bld) [Ratio] 0.0 /[address] [facility] Comment on above: Order Comment: Speci men Type: BLOOD SPECIMENOrdering Facility: [facility] Address: [address] [place] [address] Performed By: #### 5 7021-8 ####[facility] ALISAWNCLIA [id number] [place] [address] [place] Platelet mean volume (Bld) [Entitic vol] 9.2 fL Normal 9.0-12.7 [facility] Comment on above: Order Comment: Speci men Type: BLOOD SPECIMENOrdering Facility: [facility] Address: [address] [place], [place] [address] Performed By: #### 5 7021-8 ####[facility] PARKNCLIA [id number] [place] [address] [place] Platelets (Bld) [#/Vol] 254 10*3/uL Normal 150-400 [facility] Comment on above: Order Comment: Speci men Type: BLOOD SPECIMENOrdering Facility: [facility] Address: [address] [place], [place] [address] Performed By: #### 5 7021-8 ####[facility] PARKNCLIA [id number] [place] [address] [place] RBC (Bld) [#/Vol] 3.40 10*6/uL Low 3.90-5.20 [facility] Comment on above: Order Comment: Speci men Type: BLOOD SPECIMENOrdering Facility: [facility] Address: [address] [place], [place] [address] Performed By: #### 5 7021-8 ####[facility]PITALWNCLIA [id number] [place] [address] [place] WBC (Bld) [#/Vol] 7.26 10*3/uL Normal 3.70-11.00 [facility] Comment on above: Order Comment: Speci men Type: BLOOD SPECIMENOrdering Facility: [facility] Address: [address] [place], [place] [address] Performed By: #### 5 7021-8 ####[facility] PARKNCLIA [id number] [place] [address] [place] Comprehensive metabolic 2000 panelon 10-22-2024 Albumin [Mass/Vol] 4.4 g/dL Normal 3.9-4.9 [facility] Comment on above: Order Comment: Speci men Type: BLOOD SPECIMENOrdering Facility: [facility] Address: [address] [place] [address] Performed By: #### 1 9123-9, 91746-2 ####[facility] MILLWNCLIA [id number] [place] [address] [place] ALP [Catalytic activity/Vol] 70 U/L Normal 34-123 [facility] Comment on above: Order Comment: Speci men Type: BLOOD SPECIMENOrdering Facility: [facility] Address: [address] [place] [address] Performed By: #### 1 9123-9, 90484-1 ####[facility]PITALLIA [id number] [place] [address] [place] ALT [Catalytic activity/Vol] 9 U/L Normal 7-38 [facility] Comment on above: Order Comment: Speci men Type: BLOOD SPECIMENOrdering Facility: [facility] Address: [address] [place] [address] Performed By: #### 1 9123-9, 93869-4 ####[facility] HOSPITALWIGGYLIA [id number] [place] [address] [place] Anion gap [Moles/Vol] 14 mmol/L Normal 8-15 [facility] Comment on above: Order Comment: Speci men Type: BLOOD SPECIMENOrdering Facility: [facility] Address: [address] [place] [address] Performed By: #### 1 9123-9, 83737-2 ####[facility] PARKNCLIA [id number] [place] [address] [place] AST [Catalytic activity/Vol] 10 U/L Low 13-35 [facility] Comment on above: Order Comment: Speci men Type: BLOOD SPECIMENOrdering Facility: [facility] Address: [address] [place] [address] Performed By: #### 1 9123-9, 06764-9 ####[facility] MILLEDGARWIGGYLIA [id number] [place] [address] [place] Bilirubin [Mass/Vol] 0.2 mg/dL Normal 0.2-1.3 [facility] Comment on above: Order Comment: Speci men Type: BLOOD SPECIMENOrdering Facility: [facility] Address: [address] [place] [address] Performed By: #### 1 9123-9, 53808-0 ####[facility] HOSPITALSANDRA [id number] [place] [address] [place] Calcium [Mass/Vol] 9.7 mg/dL Normal 8.5-10.2 [facility] Comment on above: Order Comment: Speci men Type: BLOOD SPECIMENOrdering Facility: [facility] Address: [address] [place] [address] Performed By: #### 1 9123-9, 26272-5 ####[facility] PARKIGGYLIA [id number] [place] [address] [place] Chloride [Moles/Vol] 100 mmol/L Normal 98-107 [facility] Comment on above: Order Comment: Speci men Type: BLOOD SPECIMENOrdering Facility: [facility] Address: [address] [place] [address] Performed By: #### 1 9123-9, 25563-7 ####[facility] MILLTOWNCLIA [id number] [place] [address] [place] CO2 [Moles/Vol] 25 mmol/L Normal 22-30 [facility] Comment on above: Order Comment: Speci men Type: BLOOD SPECIMENOrdering Facility: [facility] Address: [address] [place] [address] Performed By: #### 1 9123-9, ####[facility] [id number] [place] [address] [place] Creatinine [Mass/Vol] 0.73 mg/dL Normal 0.58-0.96 [facility] Comment on above: Order Comment: Speci men Type: BLOOD SPECIMENOrdering Facility: [facility] Address: [address] [place] [address] Performed By: #### 1 9123-9, ####[facility] [id number] [place] [address] [place] Creatinine and Glomerular filtration rate.predicted panel (S/P/Bld) 88 mL/min/1.73m??? Normal >=60 [facility] Comment on above: Order Comment: Speci men Type: BLOOD SPECIMENOrdering Facility: [facility] Address: [address] [place] [address] Result Comment: Ethel mated Glomerular Filtration Rate (eGFR) is calculated using the 2020 CKD-EPI creatinine equation. This equation utilizes serum creatinine, sex, and age as parameters. The creatinine assay has traceable calibration to isotope dilution-mass spectrometry. Refer to KDIGO guidelines for clinical interpretation. In patients with unstable renal function, e.g. those with acute kidney injury, the eGFR may not accurately reflect actual GFR. Performed By: #### 1 9123-9, ####[facility]ITALA [id number] [place] [address] [place] Glucose [Mass/Vol] 173 mg/dL High 74-99 [facility] Comment on above: Order Comment: Speci men Type: BLOOD SPECIMENOrdering Facility: [facility] Address: [address] [place] [address] Result Comment: The [place] Diabetes Association (ADA) provides guidance for cutoff values for fasting glucose and random glucose. The ADA defines fasting as no caloric intake for at least 8 hours. Fasting plasma glucose results between 100 to 125 mg/dL indicate increased risk for diabetes (prediabetes).Fasting plasma glucose results greater than or equal to 126 mg/dL meet the criteria for diagnosis of diabetes. In the absence of unequivocal hyperglycemia, results should be confirmed by repeat testing. In a patient with classic symptoms of hyperglycemia or hyperglycemic crisis, random plasma glucose results greater than or equal to 200 mg/dL meet the criteria for diagnosis of diabetes.Reference: Standards of Medical Care in Diabetes 2016, [place] [employer]. Diabetes Care. 2016.39(Suppl 1). Performed By: #### 1 9123-9, 05199-4 ####[facility] HOSPITALBoo [id number] [place] [address] [place] Potassium [Moles/Vol] 3.5 mmol/L Low 3.7-5.1 [facility] Comment on above: Order Comment: Speci men Type: BLOOD SPECIMENOrdering Facility: [facility] Address: [address] [place] [address] Performed By: #### 1 9123-9, 32463-0 ####[facility] HOSPITALBoo [id number] [place] [address] [place] Protein [Mass/Vol] 7.1 g/dL Normal 6.3-8.0 [facility] Comment on above: Order Comment: Speci men Type: BLOOD SPECIMENOrdering Facility: [facility] Address: [address] [place], [place] [address] Performed By: #### 1 9123-9, 80832-2 ####[facility] [id number] [place] [address] [place] Sodium [Moles/Vol] 139 mmol/L Normal 136-144 [facility] Comment on above: Order Comment: Speci men Type: BLOOD SPECIMENOrdering Facility: [facility] Address: [address] [place] [address] Performed By: #### 1 9123-9, 94810-4 ####[facility] ALISAGREENFIELDIGGYDEMETRIO [id number] [place] [address] [place] Urea nitrogen [Mass/Vol] 15 mg/dL Normal 7-21 [facility] Comment on above: Order Comment: Speci men Type: BLOOD SPECIMENOrdering Facility: [facility] Address: [address] [place] [address] Performed By: #### 1 9123-9, 11565-6 ####[facility] PARKKATERIN [id number] [place] [address] [place] Magnesium SerPl-mCncon 10-22 Magnesium [Mass/Vol] 1.9 mg/dL Normal 1.7-2.3 [facility] Comment on above: Order Comment: Speci men Type: BLOOD SPECIMENOrdering Facility: [facility] Address: [address] [place] [address] Performed By: #### 1 9123-9, 18294-0 ####[facility] PARKIGGYBLUE MOUNTAIN [facility], INC[facility] [id number] [place] [address] [place] CNPNon 10-20-[address] [facility] CBC W Auto Differential pane l (Bld)on 10-15-2024 Basophils (Bld) [#/Vol] 0.04 10*3/uL Normal <0.11 [facility] Comment on above: Order Comment: Speci men Type: BLOOD SPECIMENOrdering Facility: [facility] Address: [address] [place] [address] Performed By: #### 5 7021-8 ####[facility] PARKIGGYA [id number] [place] [address] [place] Basophils/100 WBC (Bld) 0.7 % Normal [facility] Comment on above: Order Comment: Speci men Type: BLOOD SPECIMENOrdering Facility: [facility] Address: [address] [place] [address] Performed By: #### 5 7021-8 ####[facility] SUNDARWIGGYLIA [id number] [place] [address] [place] Differential cell count method Nom (Bld) Auto Normal [facility] Comment on above: Order Comment: Speci men Type: BLOOD SPECIMENOrdering Facility: [facility] Address: [address] [place] [address] Performed By: #### 5 7021-8 ####[facility] ALISARomeliaNCLIA [id number] [place] [address] [place] Eosinophils (Bld) [#/Vol] 0.08 10*3/uL Normal <0.46 [facility] Comment on above: Order Comment: Speci men Type: BLOOD SPECIMENOrdering Facility: [facility] Address: [address] [place] [address] Performed By: #### 5 7021-8 ####[facility] PARKNCLIA [id number] [place] [address] [place] Eosinophils/100 WBC (Bld) 1.5 % Normal [facility] Comment on above: Order Comment: Speci men Type: BLOOD SPECIMENOrdering Facility: [facility] Address: [address] [place] [address] Performed By: #### 5 7021-8 ####[facility] HOSPITALWNCLIA [id number] [place] [address] [place] Erythrocyte distribution width (RBC) [Ratio] 13.5 % Normal 11.5-15.0 [facility] Comment on above: Order Comment: Speci men Type: BLOOD SPECIMENOrdering Facility: [facility] Address: [address] [place] [address] Performed By: #### 5 7021-8 ####[facility] PARKNCLIA [id number] [place] [address] [place] Hematocrit (Bld) [Volume fraction] 32.9 % Low 36.0-46.0 [facility] Comment on above: Order Comment: Speci men Type: BLOOD SPECIMENOrdering Facility: [facility] Address: [address] [place] [address] Performed By: #### 5 7021-8 ####[facility] [id number] [place] [address] [place] Hemoglobin (Bld) [Mass/Vol] 10.9 g/dL Low 11.5-15.5 [facility] Comment on above: Order Comment: Speci men Type: BLOOD SPECIMENOrdering Facility: [facility] Address: [address] [place] [address] Performed By: #### 5 7021-8 ####[facility] [id number] [place] [address] [place] Immature granulocytes (Bld) [#/Vol] 10*3/uL Normal <0.10 [facility] Comment on above: Order Comment: Speci men Type: BLOOD SPECIMENOrdering Facility: [facility] Address: [address] [place] [address] Performed By: #### 5 7021-8 ####[facility] [id number] [place] [address] [place] Immature granulocytes/100 WBC (Bld) 0.2 % Normal [facility] Comment on above: Order Comment: Speci men Type: BLOOD SPECIMENOrdering Facility: [facility] Address: [address] [place] [address] Performed By: #### 5 7021-8 ####[facility] PARKNCLIA [id number] [place] [address] [place] Lymphocytes (Bld) [#/Vol] 1.35 10*3/uL Normal 1.00-4.00 [facility] Comment on above: Order Comment: Speci men Type: BLOOD SPECIMENOrdering Facility: [facility] Address: [address] [place] [address] Performed By: #### 5 7021-8 ####[facility] [id number] [place] [address] [place] Lymphocytes/100 WBC (Bld) 25.2 % Normal [facility] Comment on above: Order Comment: Speci men Type: BLOOD SPECIMENOrdering Facility: [facility] Address: [address] [place] [address] Performed By: #### 5 7021-8 ####[facility]NCBL[facility] [id number] [place] [address] [place] MCH (RBC) [Entitic mass] 31.0 pg Normal 26.0-34.0 [facility] Comment on above: Order Comment: Speci men Type: BLOOD SPECIMENOrdering Facility: [facility] Address: [address] [place] [address] Performed By: #### 5 7021-8 ####[facility] [id number] [place] [address] [place] MCHC (RBC) [Mass/Vol] 33.1 g/dL Normal 30.5-36.0 [facility] Comment on above: Order Comment: Speci men Type: BLOOD SPECIMENOrdering Facility: [facility] Address: [address] [place] [address] Performed By: #### 5 7021-8 ####[facility] [id number] [address] [place] MCV (RBC) [Entitic vol] 93.5 fL Normal 80.0-100.0 [facility] [facility] Comment on above: Order Comment: Speci men Type: BLOOD SPECIMENOrdering Facility: [facility] Address: [address] [place] [address] Performed By: #### 5 7021-8 ####[facility] MILLTOWNCLIA [id number] [place] [address] [place] Monocytes (Bld) [#/Vol] 0.52 10*3/uL Normal <0.87 [facility] Comment on above: Order Comment: Speci men Type: BLOOD SPECIMENOrdering Facility: [facility] Address: [address] [place] [address] Performed By: #### 5 7021-8 ####[facility] MILLTOWNCLIA [id number] [place] [address] [place] Monocytes/100 WBC (Bld) 9.7 % Normal [facility] Comment on above: Order Comment: Speci men Type: BLOOD SPECIMENOrdering Facility: [facility] Address: [address] [place] [address] Performed By: #### 5 7021-8 ####[facility]ITALWNCLIA [id number] [place] [address] [place] Neutrophils (Bld) [#/Vol] 3.35 10*3/uL Normal 1.45-7.50 [facility] Comment on above: Order Comment: Speci men Type: BLOOD SPECIMENOrdering Facility: [facility] Address: [address] [place] [address] Performed By: #### 5 7021-8 ####[facility] MILLTOWNCLIA [id number] [place] [address] [place] Neutrophils/100 WBC (Bld) 62.7 % Normal [facility] Comment on above: Order Comment: Speci men Type: BLOOD SPECIMENOrdering Facility: [facility] Address: [address] [place] [address] Performed By: #### 5 7021-8 ####[facility] MILLTOWNCLIA [id number] [place] [address] [place] Nucleated RBC (Bld) [#/Vol] 10*3/uL Normal <0.01 [facility] Comment on above: Order Comment: Speci men Type: BLOOD SPECIMENOrdering Facility: [facility] Address: [address] [place] [address] Performed By: #### 5 7021-8 ####[facility]ARKIGGYBL[facility] [id number] [place] [address] [place] Nucleated RBC/100 WBC (Bld) [Ratio] 0.0 /[address] [facility] Comment on above: Order Comment: Speci men Type: BLOOD SPECIMENOrdering Facility: [facility] Address: [address] [place] [address] Performed By: #### 5 7021-8 ####[facility] PARKNCBoo [id number] [place] [address] [place] Platelet mean volume (Bld) [Entitic vol] 9.0 fL Normal 9.0-12.7 [facility] Comment on above: Order Comment: Speci men Type: BLOOD SPECIMENOrdering Facility: [facility] Address: [address] [place] [address] Performed By: #### 5 7021-8 ####[facility] PARKKATERINBoo [id number] [place] [address] [place] Platelets (Bld) [#/Vol] 284 10*3/uL Normal 150-400 [facility] Comment on above: Order Comment: Speci men Type: BLOOD SPECIMENOrdering Facility: [facility] Address: [address] [place] [address] Performed By: #### 5 7021-8 ####[facility] PARKNCLIA [id number] [place] [address] [place] RBC (Bld) [#/Vol] 3.52 10*6/uL Low 3.90-5.20 [facility] Comment on above: Order Comment: Speci men Type: BLOOD SPECIMENOrdering Facility: [facility] Address: [address] [place] [address] Performed By: #### 5 7021-8 ####[facility] [id number] [place] [address] [place] WBC (Bld) [#/Vol] 5.35 10*3/uL Normal 3.70-11.00 [facility] Comment on above: Order Comment: Speci men Type: BLOOD SPECIMENOrdering Facility: [facility] Address: [address] [place] [address] Performed By: #### 5 7021-8 ####[facility] [id number] [place] [address] [place] CNOVSPon 10-15-[address] [facility] CNPNon 10-15-[address] [facility] Cancer Ag125 SerPl-aCncon Cancer Ag 125 Qn 7 [arb'U]/mL Normal <39 [facility] Comment on above: Order Comment: Speci men Type: BLOOD SPECIMENOrdering Facility: [facility] Address: [address] [place] [address] Result Comment: CA 1 25 test methodology used is the Electrochemiluminescence Immunoassay by [employer]. Results obtained with different methods or kits cannot be used interchangeably.The reference interval is based on the 95th percentile of 240 apparently healthy premenopausal and postmenopausal women. At a cutoff value of 65 U/mL, the test sensitivity to distinguish ovarian carcinoma (FIGO stage I to IV) versus benign gynecological disease is 79%, with a specificity of 82%.Reference: Cancer Antigen 125 (CA 125 II) [package insert V 1.0 [place]i]. [employer], [place], [place] (July 2015) Performed By: #### 1 0334-1 ####[facility] LABCLIA [id number] [address] OF [place] Comprehensive metabolic 2000 panelon 10-15-2024 Albumin [Mass/Vol] 4.6 g/dL Normal 3.9-4.9 [facility] Comment on above: Order Comment: Speci men Type: BLOOD SPECIMENOrdering Facility: [facility] Address: [address] [place] [address] Performed By: #### 2 4323-8 ####[facility]IC[facility] MILLTOWNCLIA [id number] [place] [address] [place] ALP [Catalytic activity/Vol] 72 U/L Normal 34-123 [facility] Comment on above: Order Comment: Speci men Type: BLOOD SPECIMENOrdering Facility: [facility] Address: [address] [place] [address] Performed By: #### 2 4323-8 ####[facility]OSPITALWNCLIA [id number] [place] [address] [place] ALT [Catalytic activity/Vol] 16 U/L Normal 7-38 [facility] Comment on above: Order Comment: Speci men Type: BLOOD SPECIMENOrdering Facility: [facility] Address: [address] [place] [address] Performed By: #### 2 4323-8 ####[facility] HOSPITALLIA [id number] [place] [address] [place] Anion gap [Moles/Vol] 14 mmol/L Normal 8-15 [facility] Comment on above: Order Comment: Speci men Type: BLOOD SPECIMENOrdering Facility: [facility] Address: [address] [place] [address] Performed By: #### 2 4323-8 ####[facility] MILLTOWNCLIA [id number] [place] [address] [place] AST [Catalytic activity/Vol] 15 U/L Normal 13-35 [facility] Comment on above: Order Comment: Speci men Type: BLOOD SPECIMENOrdering Facility: [facility] Address: [address] [place] [address] Performed By: #### 2 4323-8 ####[facility] ALISAEDGARWNCLIA [id number] [place] [address] [place] Bilirubin [Mass/Vol] 0.2 mg/dL Normal 0.2-1.3 [facility] Comment on above: Order Comment: Speci men Type: BLOOD SPECIMENOrdering Facility: [facility] Address: [address] [place] [address] Performed By: #### 2 4323-8 ####[facility] MILLEDGARWIGGYLIA [id number] [place] [address] [place] Calcium [Mass/Vol] 9.8 mg/dL Normal 8.5-10.2 [facility] Comment on above: Order Comment: Speci men Type: BLOOD SPECIMENOrdering Facility: [facility] Address: [address] [place] [address] Performed By: #### 2 4323-8 ####[facility] ALISAEDGARWNCLIA [id number] [place] [address] [place] Chloride [Moles/Vol] 100 mmol/L Normal 98-107 [facility] Comment on above: Order Comment: Speci men Type: BLOOD SPECIMENOrdering Facility: [facility] Address: [address] [place] [address] Performed By: #### 2 4323-8 ####[facility] MILLTOWNCLIA [id number] [place] [address] [place] CO2 [Moles/Vol] 26 mmol/L Normal 22-30 [facility] Comment on above: Order Comment: Speci men Type: BLOOD SPECIMENOrdering Facility: [facility] Address: [address] [place] [address] Performed By: #### 2 4323-8 ####[facility] [id number] [place] [address] [place] Creatinine [Mass/Vol] 0.84 mg/dL Normal 0.58-0.96 [facility] Comment on above: Order Comment: Cheng cooley Type: BLOOD SPECIMENOrdering Facility: [facility] Address: [address] [place] [address] Performed By: #### 2 4323-8 ####[facility] [id number] [place] [address] [place] Creatinine and Glomerular filtration rate.predicted panel (S/P/Bld) 74 mL/min/1.73m??? Normal >=60 [facility] Comment on above: Order Comment: Cheng cooley Type: BLOOD SPECIMENOrdering Facility: [facility] Address: [address] [place] [address] Result Comment: Ethel mated Glomerular Filtration Rate (eGFR) is calculated using the 2020 CKD-EPI creatinine equation. This equation utilizes serum creatinine, sex, and age as parameters. The creatinine assay has traceable calibration to isotope dilution-mass spectrometry. Refer to KDIGO guidelines for clinical interpretation. In patients with unstable renal function, e.g. those with acute kidney injury, the eGFR may not accurately reflect actual GFR. Performed By: #### 2 4323-8 ####[facility] [id number] [place] [address] [place] Glucose [Mass/Vol] 129 mg/dL High 74-99 [facility] Comment on above: Order Comment: Cheng cooley Type: BLOOD SPECIMENOrdering Facility: [facility] Address: [address] [place], [place] [id number] Result Comment: The [place] Diabetes Association (ADA) provides guidance for cutoff values for fasting glucose and random glucose. The ADA defines fasting as no caloric intake for at least 8 hours. Fasting plasma glucose results between 100 to 125 mg/dL indicate increased risk for diabetes (prediabetes).Fasting plasma glucose results greater than or equal to 126 mg/dL meet the criteria for diagnosis of diabetes. In the absence of unequivocal hyperglycemia, results should be confirmed by repeat testing. In a patient with classic symptoms of hyperglycemia or hyperglycemic crisis, random plasma glucose results greater than or equal to 200 mg/dL meet the criteria for diagnosis of diabetes.Reference: Standards of Medical Care in Diabetes 2016, [place] [employer] Association. Diabetes Care. 2016.39(Suppl 1). Performed By: #### 2 4323-8 ####[facility] [id number] [place] [address] [place] Potassium [Moles/Vol] 3.2 mmol/L Low 3.7-5.1 [facility] Comment on above: Order Comment: Speci men Type: BLOOD SPECIMENOrdering Facility: [facility] Address: [address] [place] [address] Performed By: #### 2 4323-8 ####[facility] [id number] [place] [address] [place] Protein [Mass/Vol] 7.1 g/dL Normal 6.3-8.0 [facility] Comment on above: Order Comment: Speci men Type: BLOOD SPECIMENOrdering Facility: [facility] Address: [address] [place] [address] Performed By: #### 2 4323-8 ####[facility] [id number] [place] [address] [place] Sodium [Moles/Vol] 140 mmol/L Normal 136-144 [facility] Comment on above: Order Comment: Speci men Type: BLOOD SPECIMENOrdering Facility: [facility] Address: [address] [place] [address] Performed By: #### 2 4323-8 ####[facility] [id number] [place] [address] [place] Urea nitrogen [Mass/Vol] 18 mg/dL Normal 7-21 [facility] Comment on above: Order Comment: Speci men Type: BLOOD SPECIMENOrdering Facility: [facility] Address: [address] [place] [address] Performed By: #### 2 4323-8 ####[facility] [id number] [place] [address] [place] CBC W Auto Differential pane l (Bld)on 10-08-2024 Basophils (Bld) [#/Vol] 10*3/uL Normal <0.11 [facility] Comment on above: Order Comment: Speci men Type: BLOOD SPECIMENOrdering Facility: [facility] Address: [address] [place] [address] Performed By: #### 5 7021-8 ####[facility] [id number] [place] [address] [place] Basophils/100 WBC (Bld) 0.5 % Normal [facility] Comment on above: Order Comment: Speci men Type: BLOOD SPECIMENOrdering Facility: [facility] Address: [address] [place] [address] Performed By: #### 5 7021-8 ####[facility] [id number] [place] [address] [place] Differential cell count method Nom (Bld) Auto Normal [facility] Comment on above: Order Comment: Speci men Type: BLOOD SPECIMENOrdering Facility: [facility] Address: [address] [place] [address] Performed By: #### 5 7021-8 ####[facility] [id number] [place] [address] [place] Eosinophils (Bld) [#/Vol] 0.10 10*3/uL Normal <0.46 [facility] Comment on above: Order Comment: Speci men Type: BLOOD SPECIMENOrdering Facility: [facility] Address: [address] [place] [address] Performed By: #### 5 7021-8 ####[facility] ALISARomeliaNCLIA [id number] [place] [address] [place] Eosinophils/100 WBC (Bld) 2.4 % Normal [facility] Comment on above: Order Comment: Speci men Type: BLOOD SPECIMENOrdering Facility: [facility] Address: [address] [place] [address] Performed By: #### 5 7021-8 ####[facility] PARKKATERINA [id number] [place] [address] [place] Erythrocyte distribution width (RBC) [Ratio] 13.6 % Normal 11.5-15.0 [facility] Comment on above: Order Comment: Speci men Type: BLOOD SPECIMENOrdering Facility: [facility] Address: [address] [place] [address] Performed By: #### 5 7021-8 ####[facility] PARKCALVIN [id number] [place] [address] [place] Hematocrit (Bld) [Volume fraction] 29.4 % Low 36.0-46.0 [facility] Comment on above: Order Comment: Speci men Type: BLOOD SPECIMENOrdering Facility: [facility] Address: [address] [place] [address] Performed By: #### 5 7021-8 ####[facility] PARKIGGYLIA [id number] [place] [address] [place] Hemoglobin (Bld) [Mass/Vol] 9.9 g/dL Low 11.5-15.5 [facility] Comment on above: Order Comment: Speci men Type: BLOOD SPECIMENOrdering Facility: [facility] Address: [address] [place] [address] Performed By: #### 5 7021-8 ####[facility] PARKNCLIA [id number] [place] [address] [place] Immature granulocytes (Bld) [#/Vol] 10*3/uL Normal <0.10 [facility] Comment on above: Order Comment: Speci men Type: BLOOD SPECIMENOrdering Facility: [facility] Address: [address] [place] [address] Performed By: #### 5 7021-8 ####[facility] PARKNCA [id number] [place] [address] [place] Immature granulocytes/100 WBC (Bld) 0.2 % Normal [facility] Comment on above: Order Comment: Speci men Type: BLOOD SPECIMENOrdering Facility: [facility] Address: [address] [place] [address] Performed By: #### 5 7021-8 ####[facility] [id number] [place] [address] [place] Lymphocytes (Bld) [#/Vol] 1.28 10*3/uL Normal 1.00-4.00 [facility] Comment on above: Order Comment: Speci men Type: BLOOD SPECIMENOrdering Facility: [facility] Address: [address] [place] [address] Performed By: #### 5 7021-8 ####[facility] [id number] [place] [address] [place] Lymphocytes/100 WBC (Bld) 30.5 % Normal [facility] Comment on above: Order Comment: Speci men Type: BLOOD SPECIMENOrdering Facility: [facility] Address: [address] [place] [address] Performed By: #### 5 7021-8 ####[facility] [id number] [place] [address] [place] MCH (RBC) [Entitic mass] 30.8 pg Normal 26.0-34.0 [facility] Comment on above: Order Comment: Speci men Type: BLOOD SPECIMENOrdering Facility: [facility] Address: [address] [place] [address] Performed By: #### 5 7021-8 ####[facility] LUIGI [id number] [address] [place] MCHC (RBC) [Mass/Vol] 33.7 g/dL Normal 30.5-36.0 [facility] Comment on above: Order Comment: Speci men Type: BLOOD SPECIMENOrdering Facility: [facility] Address: [address] [place] [address] Performed By: #### 5 7021-8 ####[facility] PARKNCBL[facility] [id number] [place] [address] [place] MCV (RBC) [Entitic vol] 91.6 fL Normal 80.0-100.0 [facility] Comment on above: Order Comment: Speci men Type: BLOOD SPECIMENOrdering Facility: [facility] Address: [address] [place] [address] Performed By: #### 5 7021-8 ####[facility]ITALA [id number] [place] [address] [place] Monocytes (Bld) [#/Vol] 0.46 10*3/uL Normal <0.87 [facility] Comment on above: Order Comment: Speci men Type: BLOOD SPECIMENOrdering Facility: [facility] Address: [address] [place] [address] Performed By: #### 5 7021-8 ####[facility] PARKNCLIA [id number] [place] [address] [place] Monocytes/100 WBC (Bld) 11.0 % Normal [facility] Comment on above: Order Comment: Speci men Type: BLOOD SPECIMENOrdering Facility: [facility] Address: [address] [place] [address] Performed By: #### 5 7021-8 ####[facility] PARKMTLIA [id number] [place] [address] [place] Neutrophils (Bld) [#/Vol] 2.32 10*3/uL Normal 1.45-7.50 [facility] Comment on above: Order Comment: Speci men Type: BLOOD SPECIMENOrdering Facility: [facility] Address: [address] [place] [address] Performed By: #### 5 7021-8 ####[facility] [id number] [place] [address] [place] Neutrophils/100 WBC (Bld) 55.4 % Normal [facility] Comment on above: Order Comment: Speci men Type: BLOOD SPECIMENOrdering Facility: [facility] Address: [address] [place] [address] Performed By: #### 5 7021-8 ####[facility] [id number] [place] [address] [place] Nucleated RBC (Bld) [#/Vol] 10*3/uL Normal <0.01 [facility] Comment on above: Order Comment: Speci men Type: BLOOD SPECIMENOrdering Facility: [facility] Address: [address] [place] [address] Performed By: #### 5 7021-8 ####[facility] [id number] [place] [address] [place] Nucleated RBC/100 WBC (Bld) [Ratio] 0.0 /[address] [facility] Comment on above: Order Comment: Speci men Type: BLOOD SPECIMENOrdering Facility: [facility] Address: [address] [place] [address] Performed By: #### 5 7021-8 ####[facility] PARKNCLIA [id number] [place] [address] [place] Platelet mean volume (Bld) [Entitic vol] 9.0 fL Normal 9.0-12.7 [facility] Comment on above: Order Comment: Speci men Type: BLOOD SPECIMENOrdering Facility: [facility] Address: [address] [place] [address] Performed By: #### 5 7021-8 ####[facility]ARKNCBL[facility] [id number] [place] [address] [place] Platelets (Bld) [#/Vol] 250 10*3/uL Normal 150-400 [facility] Comment on above: Order Comment: Speci men Type: BLOOD SPECIMENOrdering Facility: [facility] Address: [address] [place] [address] Performed By: #### 5 7021-8 ####[facility] [id number] [place] [address] [place] RBC (Bld) [#/Vol] 3.21 10*6/uL Low 3.90-5.20 [facility] Comment on above: Order Comment: Speci men Type: BLOOD SPECIMENOrdering Facility: [facility] Address: [address] [place] [address] Performed By: #### 5 7021-8 ####[facility] [id number] [place] [address] [place] WBC (Bld) [#/Vol] 4.19 10*3/uL Normal 3.70-11.00 [facility] Comment on above: Order Comment: Speci men Type: BLOOD SPECIMENOrdering Facility: [facility] Address: [address] [place] [address] Performed By: #### 5 7021-8 ####[facility]NC[facility] [id number] [place] [address] [place] Cancer Ag125 SerPl-aCncon Cancer Ag 125 Qn 7 [arb'U]/mL Normal <39 [facility] Comment on above: Order Comment: Speci men Type: BLOOD SPECIMENOrdering Facility: [facility] Address: [address] [place] [address] Result Comment: CA 1 25 test methodology used is the Electrochemiluminescence Immunoassay by [employer]. Results obtained with different methods or kits cannot be used interchangeably.The reference interval is based on the 95th percentile of 240 apparently healthy premenopausal and postmenopausal women. At a cutoff value of 65 U/mL, the test sensitivity to distinguish ovarian carcinoma (FIGO stage I to IV) versus benign gynecological disease is 79%, with a specificity of 82%.Reference: Cancer Antigen 125 (CA 125 II) [package insert V 1.0 [place]i]. [employer], [place], [place] (July 2015) Performed By: #### 1 0334-1 ####[facility] LABCLIA [id number] [place] [address] [place] CNOVSPon 10-07-[address] [facility] CNPNon 10-07-2024 CNPN [facility] CNPNon 10-04-2024 CNPN Telephone (GYNML) SAL BAUTISTA ([id number]) 1950 F Date Time Provider Department 10/04/24 VERONICA GALVAN GYNML During your visit today, we recorded the following information about you: Veronica Galvan, RN 10/04/2024 2:46 PM Signed Pt LVM at [facility] office. Spoke to pt who said the last 3 days after a BM she has noted some bleeding. a little in the stool Pt also said when wiping a less than quarter size of blood noted on toilet paper. Pt has a post -op appointment with [facility] 10/07. Informed pt message would be sent to medical team to review and advise. Pt verbalized understanding and grateful for call. Mayhugh, Tess A, CONTESTANT COORDINATOR.PHOTOGRAPHER LITHOGRAPHIC 10/04/2024 3:38 PM Signed Spoke to patient. She stated that she had diarrhea for a little bit after surgery and then starting 09/27 she starting having harder stool and started taking Colace PRN. States she took 1 Colace 09/27, 09/30 and noted the scant bleeding on 10/02/24. Denies any dizziness, lightheadedness etc. Has only noted the scant amount of blood when she has the harder stool. Discussed taking the stool softener( Colace) daily and look for any worsening symptoms such as increased rectal bleeding, dizziness etc. Also discussed that the diarrhea could've caused hemorrhoids/ skin irritation and same with hard stools. Voiced understanding. Will keep appointment as scheduled with Dr Buckner 10/07/24 and also monitor symptoms. She was grateful for phone call. Tess Tabares APRN.PHOTOGRAPHER LITHOGRAPHIC Allergies As of Date: 10/04/2024 (No Known Allergies) Date Reviewed: 09/17/2024 Reviewed by: Lila Sanchez, RN - Fully Assessed Reason for Visit: Returning Patient's Call [408] Prescriptions as of 10/04/2024 - acetaminophen (TYLENOL) 160 mg/5 mL liquid Take 31.2 mL by mouth every 6 hours. Do not exceed 5 doses in 24 hours. - rivaroxaban (XARELTO) 10 mg tablet Take 1 tablet by mouth once daily. - metroNIDAZOLE (FLAGYL) 500 mg tablet Take 4 tablets by mouth as directed. Take 4 tablets at 7pm and 4 tablets at 11pm the night before surgery - neomycin 500 mg tablet Take 4 tablets by mouth as directed. Take 4 tablets at 7pm and 4 tablets at 11pm the night before surgery - Bisacodyl (DULCOLAX) 5 mg tab Take 1 tablet by mouth as directed. Take 2 tablets at 3pm the day before surgery - polyethylene glycol 3350 (MIRALAX) 17 gram/dose powder Purchase one 238 gram bottle of Miralax Use as directed - iv contrast (will be provided with radiology test) CT Chest W -Inject, intravenously, once for 1 dose.No IV access, insert saline lock prior to the beginning of sedation, infusion, injection of imaging exam. Discontinue saline lock post exam. If Pt. has a central line or IVAD, may access for administration according to line specific nursing protocol. Once exam is complete flush line and de-access according to line specific nursing protocol in the CT contrast administration guidelines link. - iv contrast (will be provided with radiology test) CT ABD/PEL -Inject, intravenously, once for 1 dose.No IV access, insert saline lock prior to the beginning of sedation, infusion, injection of imaging exam. Discontinue saline lock post exam. If Pt. has a central line or IVAD, may access for administration according to line specific nursing protocol. Once exam is complete flush line and de-access according to line specific nursing protocol in the CT contrast administration guidelines link. - enteric contrast (will be provided with radiology test) For CT ABD/PEL W IVCON Routine order Administer, As Directed One Time Only, via Oral, Rectal, both Oral and Rectal, Enteric Tube, Stoma or Indwelling Catheter, Enteric Contrast as designated per enteric contrast guidelines - dexAMETHasone (DECADRON) 4 mg tablet Take 5 tablets 12 and 6 hours prior to chemotherapy treatment. - ondansetron orally disintegrating (ZOFRAN ODT) 8 mg disintegrating tablet Take 1 tablet by mouth every 8 hours as needed for nausea/vomiting. - prochlorperazine (COMPAZINE) 10 mg tablet Take 1 tablet by mouth every 6 hours as needed. - acetaminophen (TYLENOL EXTRA STRENGTH) 500 mg tablet Take 1,000 mg by mouth every 6 hours as needed for pain. - nutritional supplement ([employer] STANDARD 1.4) 0.06 G - 1.4 Kcal/mL oral liquid Take 325 mL by mouth three times a day. - dicyclomine (BENTYL) 10 mg capsule Take 1 or 2 before meals, as needed. - alendronate (FOSAMAX) 70 mg tablet Take 1 tablet by mouth one time a week. Take with a full glass of water, on an empty stomach; do NOT lie down for 30minutes. - Cholecalciferol, Vitamin D3, 50 mcg (2,000 unit) cap Take 1 capsule by mouth once daily. - Loperamide HCl (ANTI-DIARRHEAL) 2 mg tab Take 1 tablet by mouth as needed. Problem List As Of Date 10/04/2024 Noted Resolved Sebaceous cyst [L72.3] 07/05/2008 11/16/2015 Osteopenia [M85.80] 07/13 (more content not included)... [facility] Normal [facility] CNPNon 09-22-[address] [facility] CNPNon 09-20-[address] [facility] CNNURSEon 09-17-[address] [facility] CNPNon 09-15-[address] [facility] CNPTOUTREACHon 09-15-[address] [facility] CASE MANAGEMon 09-13-[address] [facility] CASE MANAGEM Normal [facility] CBC panel Auto (Bld)on 09-13 Erythrocyte distribution width (RBC) [Ratio] 15.5 % High 11.5-15.0 [facility] Comment on above: Order Comment: Speci men Type: BLOOD SPECIMENOrdering Facility: [facility] Address: [address] [place] [address] Performed By: #### 5 8410-2 ####[facility] LABIA [id number] [place] [address] [place] Hematocrit (Bld) [Volume fraction] 29.0 % Low 36.0-46.0 [facility] Comment on above: Order Comment: Speci men Type: BLOOD SPECIMENOrdering Facility: [facility] Address: [address] [place] [address] Performed By: #### 5 8410-2 ####[facility] LABCLIA [id number] [place] [address] [place] Hemoglobin (Bld) [Mass/Vol] 9.1 g/dL Low 11.5-15.5 [facility] Comment on above: Order Comment: Speci men Type: BLOOD SPECIMENOrdering Facility: [facility] Address: [address] [place] [address] Performed By: #### 5 8410-2 ####[facility] LABCLIA [id number] [place] [address] [place] MCH (RBC) [Entitic mass] 31.4 pg Normal 26.0-34.0 [facility] Comment on above: Order Comment: Speci men Type: BLOOD SPECIMENOrdering Facility: [facility] Address: [address] [place] [address] Performed By: #### 5 8410-2 ####[facility] LABIA [id number] [place] [address] [place] MCHC (RBC) [Mass/Vol] 31.4 g/dL Normal 30.5-36.0 [facility] Comment on above: Order Comment: Speci men Type: BLOOD SPECIMENOrdering Facility: [facility] Address: [address] [place] [address] Performed By: #### 5 8410-2 ####[facility] LABIA [id number] [place] [address] [place] MCV (RBC) [Entitic vol] 100.0 fL Normal 80.0-100.0 [facility] Comment on above: Order Comment: Speci men Type: BLOOD SPECIMENOrdering Facility: [facility] Address: [address] [place] [address] Performed By: #### 5 8410-2 ####[facility] LABIA [id number] [place] [address] [place] Nucleated RBC (Bld) [#/Vol] 10*3/uL Normal <0.01 [facility] Comment on above: Order Comment: Speci men Type: BLOOD SPECIMENOrdering Facility: [facility] Address: [address] [place] [address] Performed By: #### 5 8410-2 ####[facility] LABIA [id number] [place] [address] [place] Platelet mean volume (Bld) [Entitic vol] 9.8 fL Normal 9.0-12.7 [facility] Comment on above: Order Comment: Speci men Type: BLOOD SPECIMENOrdering Facility: [facility] Address: [address] [place] [address] Performed By: #### 5 8410-2 ####[facility] LABCLIA [id number] [place] [address] [place] Platelets (Bld) [#/Vol] 173 10*3/uL Normal 150-400 [facility] Comment on above: Order Comment: Speci men Type: BLOOD SPECIMENOrdering Facility: [facility] Address: [address] [place] [address] Performed By: #### 5 8410-2 ####[facility] LABIA [id number] [place] [address] [place] RBC (Bld) [#/Vol] 2.90 10*6/uL Low 3.90-5.20 [facility] Comment on above: Order Comment: Speci men Type: BLOOD SPECIMENOrdering Facility: [facility] Address: [address] [place] [address] Performed By: #### 5 8410-2 ####[facility] LABIA [id number] [place] [address] [place] WBC (Bld) [#/Vol] 4.02 10*3/uL Normal 3.70-11.00 [facility] Comment on above: Order Comment: Speci men Type: BLOOD SPECIMENOrdering Facility: [facility] Address: [address] [place] [address] Performed By: #### 5 8410-2 ####[facility] LABIA [id number] [place] [id number] [place] CNCOon 09-13-2024 [address] Text [address] [facility] CNDSon 09-13-[address] [facility] CNPNon 09-13-[address] [facility] Comprehensive metabolic 2000 panelon 09-13-2024 Albumin [Mass/Vol] 3.5 g/dL Low 3.9-4.9 [facility] Comment on above: Order Comment: Speci men Type: BLOOD SPECIMENOrdering Facility: [facility] Address: [address] [place], [place] [address] Performed By: #### 2 4323-8, 07780-1, 2776-10 ####[facility] LABCLIA [id number] [place] [address] [place] ALP [Catalytic activity/Vol] 64 U/L Normal 34-123 [facility] Comment on above: Order Comment: Speci men Type: BLOOD SPECIMENOrdering Facility: [facility] Address: [address] [place] [address] Performed By: #### 2 4323-8, , 2776-10 ####[facility] LABCLIA [id number] [place] [address] [place] ALT [Catalytic activity/Vol] 13 U/L Normal 7-38 [facility] Comment on above: Order Comment: Speci men Type: BLOOD SPECIMENOrdering Facility: [facility] Address: [address] [place] [address] Performed By: #### 2 4323-8, , 2776-10 ####[facility] LABIA [id number] [place] [address] [place] Anion gap [Moles/Vol] 20 mmol/L High 8-15 [facility] Comment on above: Order Comment: Speci men Type: BLOOD SPECIMENOrdering Facility: [facility] Address: [address] [place], [place] [address] Performed By: #### 2 4323-8, , 2776-10 ####[facility] LABIA [id number] [place] [id number] [place] AST [Catalytic activity/Vol] 32 U/L Normal 13-35 [facility] Comment on above: Order Comment: Speci men Type: BLOOD SPECIMENOrdering Facility: [facility] Address: [address], [place] [address] Result Comment: Resu lts may be falsely increased due to interference from hemolysis. Suggest reorder as clinically indicated. Performed By: #### 2 4323-8, , 2776-10 ####[facility] LABCLIA [id number] [address] [address] [place] Bilirubin [Mass/Vol] 0.3 mg/dL Normal 0.2-1.3 [facility] Comment on above: Order Comment: Speci men Type: BLOOD SPECIMENOrdering Facility: [facility] Address: [address] [place], [place] [address] Performed By: #### 2 4323-8, , 2776-10 ####[facility] LABCLIA [id number] [place] [id number] [place] Calcium [Mass/Vol] 8.9 mg/dL Normal 8.5-10.2 [facility] Comment on above: Order Comment: Speci men Type: BLOOD SPECIMENOrdering Facility: [facility] Address: [address] [place], [place] [address] Performed By: #### 2 4323-8, , 2776-10 ####[facility] LABCLIA [id number] [place] [id number] [place] Chloride [Moles/Vol] 107 mmol/L Normal 98-107 [facility] Comment on above: Order Comment: Speci men Type: BLOOD SPECIMENOrdering Facility: [facility] Address: [address] [place], [place] [address] Performed By: #### 2 4323-8, , 2776-10 ####[facility] LABCLIA [id number] [place] [id number] [place] CO2 [Moles/Vol] 18 mmol/L Low 22-30 [facility] Comment on above: Order Comment: Speci men Type: BLOOD SPECIMENOrdering Facility: [facility] Address: [address] [place] [address] Performed By: #### 2 4323-8, 72584-8, 2776-10 ####[facility] LABIA [id number] [place] [id number] [place] Creatinine [Mass/Vol] 0.70 mg/dL Normal 0.58-0.96 [facility] Comment on above: Order Comment: Speckimberly men Type: BLOOD SPECIMENOrdering Facility: [facility] Address: [address] [place] [address] Performed By: #### 2 4323-8, , 2776-10 ####[facility] [id number] [place] [address] [place] Creatinine and Glomerular filtration rate.predicted panel (S/P/Bld) 92 mL/min/1.73m??? Normal >=60 [facility] Comment on above: Order Comment: Cheng cooley Type: BLOOD SPECIMENOrdering Facility: [facility] Address: [address] [place] [address] Result Comment: Ethel mated Glomerular Filtration Rate (eGFR) is calculated using the 2020 CKD-EPI creatinine equation. This equation utilizes serum creatinine, sex, and age as parameters. The creatinine assay has traceable calibration to isotope dilution-mass spectrometry. Refer to KDIGO guidelines for clinical interpretation. In patients with unstable renal function, e.g. those with acute kidney injury, the eGFR may not accurately reflect actual GFR. Performed By: #### 2 4323-8, , 2776-10 ####[facility] LABIA [id number] [place] [id number] [place] Glucose [Mass/Vol] 100 mg/dL High 74-99 [facility] Comment on above: Order Comment: Cheng men Type: BLOOD SPECIMENOrdering Facility: [facility] Address: [address] [place] [address] Result Comment: The [place] Diabetes Association (ADA) provides guidance for cutoff values for fasting glucose and random glucose. The ADA defines fasting as no caloric intake for at least 8 hours. Fasting plasma glucose results between 100 to 125 mg/dL indicate increased risk for diabetes (prediabetes).Fasting plasma glucose results greater than or equal to 126 mg/dL meet the criteria for diagnosis of diabetes. In the absence of unequivocal hyperglycemia, results should be confirmed by repeat testing. In a patient with classic symptoms of hyperglycemia or hyperglycemic crisis, random plasma glucose results greater than or equal to 200 mg/dL meet the criteria for diagnosis of diabetes.Reference: Standards of Medical Care in Diabetes 2016, [place] [employer]. Diabetes Care. 2016.39(Suppl 1). Performed By: #### 2 4323-8, , 2776-10 ####[facility] LABIA [id number] [place] [address] [place] Potassium [Moles/Vol] 3.7 mmol/L Normal 3.7-5.1 [facility] Comment on above: Order Comment: Speci men Type: BLOOD SPECIMENOrdering Facility: [facility] Address: [address] [place] [address] Performed By: #### 2 4323-8, , 2776-10 ####[facility] LABIA [id number] [place] [address] [place] Protein [Mass/Vol] 5.8 g/dL Low 6.3-8.0 [facility] Comment on above: Order Comment: Speci men Type: BLOOD SPECIMENOrdering Facility: [facility] Address: [address] [place], [place] [address] Performed By: #### 2 432-8, , 2776-10 ####[facility] LABIA [id number] [place] [id number] [place] Sodium [Moles/Vol] 145 mmol/L High 136-144 [facility] Comment on above: Order Comment: Speci men Type: BLOOD SPECIMENOrdering Facility: [facility] Address: [address] [place] [address] Performed By: #### 2 4328, , 2776-10 ####[facility] LABCLIA [id number] [address] [address] [place] Urea nitrogen [Mass/Vol] 5 mg/dL Low 7-21 [facility] Comment on above: Order Comment: Speci men Type: BLOOD SPECIMENOrdering Facility: [facility] Address: [address] [place], [place] [address] Performed By: #### 2 4323-8, , 2776-10 ####[facility] LABCLIA [id number] [address] [address] [place] Magnesium SerPl-ncon 09-13 Magnesium [Mass/Vol] 1.9 mg/dL Normal 1.7-2.3 [facility] Comment on above: Order Comment: Speci men Type: BLOOD SPECIMENOrdering Facility: [facility] Address: [address] [place], [place] [address] Performed By: #### 2 4323-8, , 2776-10 ####[facility] LABIA [id number] [place] [id number] [place] Phosphate SerPl-mCncon 09-13 Phosphate [Mass/Vol] 3.5 mg/dL Normal 2.7-4.8 [facility] Comment on above: Order Comment: Speci men Type: BLOOD SPECIMENOrdering Facility: [facility] Address: [address] [place], [place] [address] Performed By: #### 2 4323-8, , 2776-10 ####[facility] LABIA [id number] [address] [address] [place] THERAPY NTon 09-13-[address] [facility] THERAPY NT Normal [facility] CBC panel Auto (Bld)on 09-11 Erythrocyte distribution width (RBC) [Ratio] 15.9 % High 11.5-15.0 [facility] Comment on above: Order Comment: Speci men Type: BLOOD SPECIMENOrdering Facility: [facility] Address: [address] [place] [address] Performed By: #### 5 8410-2 ####[facility] LABIA [id number] [place] [address] [place] Hematocrit (Bld) [Volume fraction] 25.1 % Low 36.0-46.0 [facility] Comment on above: Order Comment: Speci men Type: BLOOD SPECIMENOrdering Facility: [facility] Address: [address] [place] [address] Performed By: #### 5 8410-2 ####[facility] LABIA [id number] [place] [address] [place] Hemoglobin (Bld) [Mass/Vol] 8.1 g/dL Low 11.5-15.5 [facility] Comment on above: Order Comment: Speci men Type: BLOOD SPECIMENOrdering Facility: [facility] Address: [address] [place] [address] Performed By: #### 5 8410-2 ####[facility] LABIA [id number] [place] [address] [place] MCH (RBC) [Entitic mass] 30.0 pg Normal 26.0-34.0 [facility] Comment on above: Order Comment: Speci men Type: BLOOD SPECIMENOrdering Facility: [facility] Address: [address] [place] [address] Performed By: #### 5 8410-2 ####[facility] LABIA [id number] [place] [address] [place] MCHC (RBC) [Mass/Vol] 32.3 g/dL Normal 30.5-36.0 [facility] Comment on above: Order Comment: Speci men Type: BLOOD SPECIMENOrdering Facility: [facility] Address: [address] [place] [address] Performed By: #### 5 8410-2 ####[facility] LABIA [id number] [place] [address] [place] MCV (RBC) [Entitic vol] 93.0 fL Normal 80.0-100.0 [facility] Comment on above: Order Comment: Speci men Type: BLOOD SPECIMENOrdering Facility: [facility] Address: [address] [place] [address] Performed By: #### 5 8410-2 ####[facility] LABIA [id number] [place] [address] [place] Nucleated RBC (Bld) [#/Vol] 10*3/uL Normal <0.01 [facility] Comment on above: Order Comment: Speci men Type: BLOOD SPECIMENOrdering Facility: [facility] Address: [address] [place] [address] Performed By: #### 5 8410-2 ####[facility] LABIA [id number] [place] [address] [place] Platelet mean volume (Bld) [Entitic vol] 9.3 fL Normal 9.0-12.7 [facility] Comment on above: Order Comment: Speci men Type: BLOOD SPECIMENOrdering Facility: [facility] Address: [address] [place] [address] Performed By: #### 5 8410-2 ####[facility] LABIA [id number] [place] [address] [place] Platelets (Bld) [#/Vol] 173 10*3/uL Normal 150-400 [facility] Comment on above: Order Comment: Speci men Type: BLOOD SPECIMENOrdering Facility: [facility] Address: [address] [place] [address] Performed By: #### 5 8410-2 ####[facility] LABIA [id number] [address] [address] [place] RBC (Bld) [#/Vol] 2.70 10*6/uL Low 3.90-5.20 [facility] Comment on above: Order Comment: Speci men Type: BLOOD SPECIMENOrdering Facility: [facility] Address: [address] [place] [address] Performed By: #### 5 8410-2 ####[facility] LABCLIA [id number] [place] [address] [place] WBC (Bld) [#/Vol] 4.87 10*3/uL Normal 3.70-11.00 [facility] Comment on above: Order Comment: Speci men Type: BLOOD SPECIMENOrdering Facility: [facility] Address: [address] [place] [address] Performed By: #### 5 8410-2 ####[facility] LABCLIA [id number] [place] [address] [place] Erythrocyte distribution width (RBC) [Ratio] 16.1 % High 11.5-15.0 [facility] Comment on above: Order Comment: Speci men Type: BLOOD SPECIMENOrdering Facility: [facility] Address: [address] [place] [address] Performed By: #### 5 8410-2 ####[facility] LABCLIA [id number] [place] [address] [place] Hematocrit (Bld) [Volume fraction] 25.9 % Low 36.0-46.0 [facility] Comment on above: Order Comment: Speci men Type: BLOOD SPECIMENOrdering Facility: [facility] Address: [address] [place] [address] Performed By: #### 5 8410-2 ####[facility] LABCLIA [id number] [place] [address] [place] Hemoglobin (Bld) [Mass/Vol] 8.7 g/dL Low 11.5-15.5 [facility] Comment on above: Order Comment: Speci men Type: BLOOD SPECIMENOrdering Facility: [facility] Address: [address] [place] [address] Performed By: #### 5 8410-2 ####[facility] [id number] [place] [address] [place] MCH (RBC) [Entitic mass] 31.4 pg Normal 26.0-34.0 [facility] Comment on above: Order Comment: Speci men Type: BLOOD SPECIMENOrdering Facility: [facility] Address: [address] [place] [address] Performed By: #### 5 8410-2 ####[facility] [id number] [place] [address] [place] MCHC (RBC) [Mass/Vol] 33.6 g/dL Normal 30.5-36.0 [facility] Comment on above: Order Comment: Speci men Type: BLOOD SPECIMENOrdering Facility: [facility] Address: [address] [place] [address] Performed By: #### 5 8410-2 ####[facility] – [facility] [id number] [place] [address] [place] MCV (RBC) [Entitic vol] 93.5 fL Normal 80.0-100.0 [facility] Comment on above: Order Comment: Speci men Type: BLOOD SPECIMENOrdering Facility: [facility] Address: [address] [place] [address] Performed By: #### 5 8410-2 ####[facility] [id number] [place] [address] [place] Nucleated RBC (Bld) [#/Vol] 10*3/uL Normal <0.01 [facility] Comment on above: Order Comment: Speci men Type: BLOOD SPECIMENOrdering Facility: [facility] Address: [address] [place] [address] Performed By: #### 5 8410-2 ####[facility] LABCLIA [id number] [address] [address] [place] Platelet mean volume (Bld) [Entitic vol] 10.1 fL Normal 9.0-12.7 [facility] Comment on above: Order Comment: Speci men Type: BLOOD SPECIMENOrdering Facility: [facility] Address: [address] [place] [address] Performed By: #### 5 8410-2 ####[facility] LABIA [id number] [place] [address] [place] Platelets (Bld) [#/Vol] 161 10*3/uL Normal 150-400 [facility] Comment on above: Order Comment: Speci men Type: BLOOD SPECIMENOrdering Facility: [facility] Address: [address] [place] [address] Performed By: #### 5 8410-2 ####[facility] LABIA [id number] [place] [address] [place] RBC (Bld) [#/Vol] 2.77 10*6/uL Low 3.90-5.20 [facility] Comment on above: Order Comment: Speci men Type: BLOOD SPECIMENOrdering Facility: [facility] Address: [address] [place] [address] Performed By: #### 5 8410-2 ####[facility] LABIA [id number] [place] [address] [place] WBC (Bld) [#/Vol] 5.55 10*3/uL Normal 3.70-11.00 [facility] Comment on above: Order Comment: Speci men Type: BLOOD SPECIMENOrdering Facility: [facility] Address: [address] [place] [address] Performed By: #### 5 8410-2 ####[facility] LABIA [id number] [place] [address] [place] Erythrocyte distribution width (RBC) [Ratio] 16.7 % High 11.5-15.0 [facility] Comment on above: Order Comment: Speci men Type: BLOOD SPECIMENOrdering Facility: [facility] Address: [address] [place] [address] Performed By: #### 5 8410-2 ####[facility] LABCLIA [id number] [place] [address] [place] Hematocrit (Bld) [Volume fraction] 30.0 % Low 36.0-46.0 [facility] Comment on above: Order Comment: Speci men Type: BLOOD SPECIMENOrdering Facility: [facility] Address: [address] [place] [address] Performed By: #### 5 8410-2 ####[facility] LABCLIA [id number] [place] [address] [place] Hemoglobin (Bld) [Mass/Vol] 9.3 g/dL Low 11.5-15.5 [facility] Comment on above: Order Comment: Speci men Type: BLOOD SPECIMENOrdering Facility: [facility] Address: [address] [place] [address] Performed By: #### 5 8410-2 ####[facility] LABCLIA [id number] [place] [address] [place] MCH (RBC) [Entitic mass] 30.6 pg Normal 26.0-34.0 [facility] Comment on above: Order Comment: Speci men Type: BLOOD SPECIMENOrdering Facility: [facility] Address: [address] [place] [address] Performed By: #### 5 8410-2 ####[facility] LABCLIA [id number] [place] [address] [place] MCHC (RBC) [Mass/Vol] 31.0 g/dL Normal 30.5-36.0 [facility] Comment on above: Order Comment: Speci men Type: BLOOD SPECIMENOrdering Facility: [facility] Address: [address] [place] [address] Performed By: #### 5 8410-2 ####[facility] LABCLIA [id number] [place] [address] [place] MCV (RBC) [Entitic vol] 98.7 fL Normal 80.0-100.0 [facility] Comment on above: Order Comment: Speci men Type: BLOOD SPECIMENOrdering Facility: [facility] Address: [address] [place] [address] Performed By: #### 5 8410-2 ####[facility] LABCLIA [id number] [place] [address] [place] Nucleated RBC (Bld) [#/Vol] 10*3/uL Normal <0.01 [facility] Comment on above: Order Comment: Speci men Type: BLOOD SPECIMENOrdering Facility: [facility] Address: [address] [place] [address] Performed By: #### 5 8410-2 ####[facility] LABCLIA [id number] [place] [address] [place] Platelet mean volume (Bld) [Entitic vol] 10.0 fL Normal 9.0-12.7 [facility] Comment on above: Order Comment: Speci men Type: BLOOD SPECIMENOrdering Facility: [facility] Address: [address] [place] [address] Performed By: #### 5 8410-2 ####[facility] LABCLIA [id number] [place] [address] [place] Platelets (Bld) [#/Vol] 132 10*3/uL Low 150-400 [facility] Comment on above: Order Comment: Speci men Type: BLOOD SPECIMENOrdering Facility: [facility] Address: [address] [place] [address] Performed By: #### 5 8410-2 ####[facility] LABCLIA [id number] [address] [address] [place] RBC (Bld) [#/Vol] 3.04 10*6/uL Low 3.90-5.20 [facility] Comment on above: Order Comment: Speci men Type: BLOOD SPECIMENOrdering Facility: [facility] Address: [address] [place] [address] Performed By: #### 5 8410-2 ####[facility] LABCLIA [id number] [place] [address] [place] WBC (Bld) [#/Vol] 7.30 10*3/uL Normal 3.70-11.00 [facility] Comment on above: Order Comment: Speci men Type: BLOOD SPECIMENOrdering Facility: [facility] Address: [address] [place] [address] Performed By: #### 5 8410-2 ####[facility] LABCLIA [id number] [place] [address] [place] Comprehensive metabolic 2000 panelon 09-11-2024 Albumin [Mass/Vol] 2.9 g/dL Low 3.9-4.9 [facility] Comment on above: Order Comment: Speci men Type: BLOOD SPECIMENOrdering Facility: [facility] Address: [address] [place] [address] Performed By: #### 1 9123-9, 51466-8, 2777-1 ####[facility] LABCLIA [id number] [place] [address] [place] ALP [Catalytic activity/Vol] 53 U/L Normal 34-123 [facility] Comment on above: Order Comment: Speci men Type: BLOOD SPECIMENOrdering Facility: [facility] Address: [address] [place] [address] Performed By: #### 1 9123-9, 70176-6, 2777-1 ####[facility] LABCLIA [id number] [place] [address] [place] ALT [Catalytic activity/Vol] U/L Low 7-38 [facility] Comment on above: Order Comment: Speci men Type: BLOOD SPECIMENOrdering Facility: [facility] Address: [address] [place] [address] Result Comment: Resu lt rechecked. Performed By: #### 1 9123-9, 13107-7, 2777-1 ####[facility] LABCLIA [id number] [place] [address] [place] Anion gap [Moles/Vol] 9 mmol/L Normal 8-15 [facility] Comment on above: Order Comment: Speci men Type: BLOOD SPECIMENOrdering Facility: [facility] Address: [address] [place] [address] Performed By: #### 1 9123-9, 60642-9, 277- ####[facility] LABCLIA [id number] [place] [address] [place] AST [Catalytic activity/Vol] 11 U/L Low 13-35 [facility] Comment on above: Order Comment: Speci men Type: BLOOD SPECIMENOrdering Facility: [facility] Address: [address] [place] [address] Performed By: #### 1 9123-9, 00941-7, 2777- ####[facility] LABCLIA [id number] [place] [address] [place] Bilirubin [Mass/Vol] 0.3 mg/dL Normal 0.2-1.3 [facility] Comment on above: Order Comment: Speci men Type: BLOOD SPECIMENOrdering Facility: [facility] Address: [address] [place] [address] Performed By: #### 1 9123-9, 01509-1, 2777-1 ####[facility] LABCLIA [id number] [place] [address] [place] Calcium [Mass/Vol] 8.6 mg/dL Normal 8.5-10.2 [facility] Comment on above: Order Comment: Speci men Type: BLOOD SPECIMENOrdering Facility: [facility] Address: [address] [place] [address] Performed By: #### 1 9123-9, 83212-2, 277-1 ####[facility] LABCLIA [id number] [place] [address] [place] Chloride [Moles/Vol] 105 mmol/L Normal 98-107 [facility] Comment on above: Order Comment: Speci men Type: BLOOD SPECIMENOrdering Facility: [facility] Address: [address] [place] [address] Performed By: #### 1 9123-9, 45367-5, 277- ####[facility] LABCLIA [id number] [place] [address] [place] CO2 [Moles/Vol] 25 mmol/L Normal 22-30 [facility] Comment on above: Order Comment: Speci men Type: BLOOD SPECIMENOrdering Facility: [facility] Address: [address] [place] [address] Performed By: #### 1 9123-9, 68446-3, 2776- ####[facility] LABCLIA [id number] [place] [address] [place] Creatinine [Mass/Vol] 0.71 mg/dL Normal 0.58-0.96 [facility] Comment on above: Order Comment: Speci men Type: BLOOD SPECIMENOrdering Facility: [facility] Address: [address] [place] [address] Performed By: #### 1 9123-9, 96573-1, 2777-1 ####[facility] LABCLIA [id number] [place] [address] [place] Creatinine and Glomerular filtration rate.predicted panel (S/P/Bld) 90 mL/min/1.73m??? Normal >=60 [facility] Comment on above: Order Comment: Cheng cooley Type: BLOOD SPECIMENOrdering Facility: [facility] Address: [address] [place] [address] Result Comment: Ethel mated Glomerular Filtration Rate (eGFR) is calculated using the 2020 CKD-EPI creatinine equation. This equation utilizes serum creatinine, sex, and age as parameters. The creatinine assay has traceable calibration to isotope dilution-mass spectrometry. Refer to KDIGO guidelines for clinical interpretation. In patients with unstable renal function, e.g. those with acute kidney injury, the eGFR may not accurately reflect actual GFR. Performed By: #### 1 9123-9, 71350-4, 277- ####[facility] LABIA [id number] [place] [address] [place] Glucose [Mass/Vol] 115 mg/dL High 74-99 [facility] Comment on above: Order Comment: Cheng cooley Type: BLOOD SPECIMENOrdering Facility: [facility] Address: [address] [place] [address] Result Comment: The [place] [employer] (ADA) provides guidance for cutoff values for fasting glucose and random glucose. The ADA defines fasting as no caloric intake for at least 8 hours. Fasting plasma glucose results between 100 to 125 mg/dL indicate increased risk for diabetes (prediabetes).Fasting plasma glucose results greater than or equal to 126 mg/dL meet the criteria for diagnosis of diabetes. In the absence of unequivocal hyperglycemia, results should be confirmed by repeat testing. In a patient with classic symptoms of hyperglycemia or hyperglycemic crisis, random plasma glucose results greater than or equal to 200 mg/dL meet the criteria for diagnosis of diabetes.Reference: Standards of Medical Care in Diabetes 2016, [place] [employer]. Diabetes Care. 2016.39(Suppl 1). Performed By: #### 1 9123-9, 01941-6, 2776- ####[facility] LABIA [id number] [place] [id number] [place] Potassium [Moles/Vol] 3.1 mmol/L Low 3.7-5.1 [facility] Comment on above: Order Comment: Speci men Type: BLOOD SPECIMENOrdering Facility: [facility] Address: [address] [place] [address] Performed By: #### 1 9123-9, 10695-2, 277- ####[facility] LABCLIA [id number] [address] [address] [place] Protein [Mass/Vol] 5.2 g/dL Low 6.3-8.0 [facility] Comment on above: Order Comment: Speci men Type: BLOOD SPECIMENOrdering Facility: [facility] Address: [address] [place] [address] Performed By: #### 1 9123-9, 54931-4, 277- ####[facility] LABCLIA [id number] [place] [address] [place] Sodium [Moles/Vol] 139 mmol/L Normal 136-144 [facility] Comment on above: Order Comment: Speci men Type: BLOOD SPECIMENOrdering Facility: [facility] Address: [address] [place] [address] Performed By: #### 1 9123-9, 26931-5, 2776-10 ####[facility] LABCLIA [id number] [place] [id number] [place] Urea nitrogen [Mass/Vol] 5 mg/dL Low 7-21 [facility] Comment on above: Order Comment: Speci men Type: BLOOD SPECIMENOrdering Facility: [facility] Address: [address] [place] [address] Performed By: #### 1 9123-9, 79207-9, 2777- ####[facility] LABCLIA [id number] [address] [address] [place] Magnesium SerPl-mCncon 09-11 Magnesium [Mass/Vol] 1.9 mg/dL Normal 1.7-2.3 [facility] Comment on above: Order Comment: Speci men Type: BLOOD SPECIMENOrdering Facility: [facility] Address: [address] [place] [address] Performed By: #### 1 9123-9, 14780-5, 2777-1 ####[facility] LABCLIA [id number] [place] [address] [place] NURSING PROGon 09-11-[address] [facility] Phosphate SerPl-mCncon 09-11 Phosphate [Mass/Vol] 2.4 mg/dL Low 2.7-4.8 [facility] Comment on above: Order Comment: Speci men Type: BLOOD SPECIMENOrdering Facility: [facility] Address: [address] [place] [address] Performed By: #### 1 9123-9, 48343-1, 2777-1 ####[facility] LABCLIA [id number] [place] [address] [place] CBC panel Auto (Bld)on 09-10 Erythrocyte distribution width (RBC) [Ratio] 16.1 % High 11.5-15.0 [facility] Comment on above: Order Comment: Speci men Type: BLOOD SPECIMENOrdering Facility: [facility] Address: [address] [place] [address] Performed By: #### 5 8410-2 ####[facility] LABCLIA [id number] [place] [address] [place] Hematocrit (Bld) [Volume fraction] 22.5 % Low 36.0-46.0 [facility] Comment on above: Order Comment: Speci men Type: BLOOD SPECIMENOrdering Facility: [facility] Address: [address] [place] [address] Performed By: #### 5 8410-2 ####[facility] LABCLIA [id number] [place] [address] [place] Hemoglobin (Bld) [Mass/Vol] 7.5 g/dL Low 11.5-15.5 [facility] Comment on above: Order Comment: Speci men Type: BLOOD SPECIMENOrdering Facility: [facility] Address: [address] [place] [address] Performed By: #### 5 8410-2 ####[facility] LABIA [id number] [place] [address] [place] MCH (RBC) [Entitic mass] 31.3 pg Normal 26.0-34.0 [facility] Comment on above: Order Comment: Speci men Type: BLOOD SPECIMENOrdering Facility: [facility] Address: [address] [place] [address] Performed By: #### 5 8410-2 ####[facility] LABIA [id number] [place] [address] [place] MCHC (RBC) [Mass/Vol] 33.3 g/dL Normal 30.5-36.0 [facility] Comment on above: Order Comment: Speci men Type: BLOOD SPECIMENOrdering Facility: [facility] Address: [address] [place] [address] Performed By: #### 5 8410-2 ####[facility] LABIA [id number] [place] [address] [place] MCV (RBC) [Entitic vol] 93.8 fL Normal 80.0-100.0 [facility] Comment on above: Order Comment: Speci men Type: BLOOD SPECIMENOrdering Facility: [facility] Address: [address] [place] [address] Performed By: #### 5 8410-2 ####[facility] LABIA [id number] [place] [address] [place] Nucleated RBC (Bld) [#/Vol] 10*3/uL Normal <0.01 [facility] Comment on above: Order Comment: Speci men Type: BLOOD SPECIMENOrdering Facility: [facility] Address: [address] [place] [address] Performed By: #### 5 8410-2 ####[facility] LABCLIA [id number] [place] [address] [place] Platelet mean volume (Bld) [Entitic vol] 9.6 fL Normal 9.0-12.7 [facility] Comment on above: Order Comment: Speci men Type: BLOOD SPECIMENOrdering Facility: [facility] Address: [address] [place] [address] Performed By: #### 5 8410-2 ####[facility] LABCLIA [id number] [place] [address] [place] Platelets (Bld) [#/Vol] 136 10*3/uL Low 150-400 [facility] Comment on above: Order Comment: Speci men Type: BLOOD SPECIMENOrdering Facility: [facility] Address: [address] [place] [address] Performed By: #### 5 8410-2 ####[facility] LABCLIA [id number] [place] [address] [place] RBC (Bld) [#/Vol] 2.40 10*6/uL Low 3.90-5.20 [facility] Comment on above: Order Comment: Speci men Type: BLOOD SPECIMENOrdering Facility: [facility] Address: [address] [place] [address] Performed By: #### 5 8410-2 ####[facility] LABCLIA [id number] [place] [address] [place] WBC (Bld) [#/Vol] 6.05 10*3/uL Normal 3.70-11.00 [facility] Comment on above: Order Comment: Speci men Type: BLOOD SPECIMENOrdering Facility: [facility] Address: [address] [place] [address] Performed By: #### 5 8410-2 ####[facility] LABCLIA [id number] [place] [address] [place] Erythrocyte distribution width (RBC) [Ratio] 15.9 % High 11.5-15.0 [facility] Comment on above: Order Comment: Speci men Type: BLOOD SPECIMENOrdering Facility: [facility] Address: [address] [place] [address] Performed By: #### 5 8410-2 ####[facility] LABIA [id number] [place] [address] [place] Hematocrit (Bld) [Volume fraction] 21.4 % Low 36.0-46.0 [facility] Comment on above: Order Comment: Speci men Type: BLOOD SPECIMENOrdering Facility: [facility] Address: [address] [place] [address] Performed By: #### 5 8410-2 ####[facility] LABIA [id number] [place] [address] [place] Hemoglobin (Bld) [Mass/Vol] 7.3 g/dL Low 11.5-15.5 [facility] Comment on above: Order Comment: Speci men Type: BLOOD SPECIMENOrdering Facility: [facility] Address: [address] [place] [address] Performed By: #### 5 8410-2 ####[facility] LABIA [id number] [place] [address] [place] MCH (RBC) [Entitic mass] 31.5 pg Normal 26.0-34.0 [facility] Comment on above: Order Comment: Speci men Type: BLOOD SPECIMENOrdering Facility: [facility] Address: [address] [place] [address] Performed By: #### 5 8410-2 ####[facility] LABCLIA [id number] [place] [address] [place] MCHC (RBC) [Mass/Vol] 34.1 g/dL Normal 30.5-36.0 [facility] Comment on above: Order Comment: Speci men Type: BLOOD SPECIMENOrdering Facility: [facility] Address: [address] [place] [address] Performed By: #### 5 8410-2 ####[facility] LABIA [id number] [place] [address] [place] MCV (RBC) [Entitic vol] 92.2 fL Normal 80.0-100.0 [facility] Comment on above: Order Comment: Speci men Type: BLOOD SPECIMENOrdering Facility: [facility] Address: [address] [place] [address] Performed By: #### 5 8410-2 ####[facility] LABIA [id number] [place] [address] [place] Nucleated RBC (Bld) [#/Vol] 10*3/uL Normal <0.01 [facility] Comment on above: Order Comment: Speci men Type: BLOOD SPECIMENOrdering Facility: [facility] Address: [address] [place] [address] Performed By: #### 5 8410-2 ####[facility] LABIA [id number] [place] [address] [place] Platelet mean volume (Bld) [Entitic vol] 9.4 fL Normal 9.0-12.7 [facility] Comment on above: Order Comment: Speci men Type: BLOOD SPECIMENOrdering Facility: [facility] Address: [address] [place] [address] Performed By: #### 5 8410-2 ####[facility] LABIA [id number] [place] [address] [place] Platelets (Bld) [#/Vol] 139 10*3/uL Low 150-400 [facility] Comment on above: Order Comment: Speci men Type: BLOOD SPECIMENOrdering Facility: [facility] Address: [address] [place] [address] Performed By: #### 5 8410-2 ####[facility] LABCLIA [id number] [place] [address] [place] RBC (Bld) [#/Vol] 2.32 10*6/uL Low 3.90-5.20 [facility] Comment on above: Order Comment: Speci men Type: BLOOD SPECIMENOrdering Facility: [facility] Address: [address] [place] [address] Performed By: #### 5 8410-2 ####[facility] LABCLIA [id number] [place] [address] [place] WBC (Bld) [#/Vol] 7.52 10*3/uL Normal 3.70-11.00 [facility] Comment on above: Order Comment: Speci men Type: BLOOD SPECIMENOrdering Facility: [facility] Address: [address] [place] [address] Performed By: #### 5 8410-2 ####[facility] LABIA [id number] [place] [address] [place] Erythrocyte distribution width (RBC) [Ratio] 16.3 % High 11.5-15.0 [facility], [facility] Comment on above: Order Comment: Speci men Type: BLOOD SPECIMENOrdering Facility: [facility] Address: [address] [place] [address] Performed By: #### 5 8410-2 ####[facility] LABCLIA [id number] [place] [address] [place] Hematocrit (Bld) [Volume fraction] 23.2 % Low 36.0-46.0 [facility] Comment on above: Order Comment: Speci men Type: BLOOD SPECIMENOrdering Facility: [facility] Address: [address] [place] [address] Performed By: #### 5 8410-2 ####[facility] LABCLIA [id number] [place] [address] [place] Hemoglobin (Bld) [Mass/Vol] 7.8 g/dL Low 11.5-15.5 [facility] Comment on above: Order Comment: Speci men Type: BLOOD SPECIMENOrdering Facility: [facility] Address: [address] [place] [address] Performed By: #### 5 8410-2 ####[facility] LABIA [id number] [place] [address] [place] MCH (RBC) [Entitic mass] 31.3 pg Normal 26.0-34.0 [facility] Comment on above: Order Comment: Speci men Type: BLOOD SPECIMENOrdering Facility: [facility] Address: [address] [place] [address] Performed By: #### 5 8410-2 ####[facility] LABIA [id number] [place] [address] [place] MCHC (RBC) [Mass/Vol] 33.6 g/dL Normal 30.5-36.0 [facility] Comment on above: Order Comment: Speci men Type: BLOOD SPECIMENOrdering Facility: [facility] Address: [address] [place] [address] Performed By: #### 5 8410-2 ####[facility] LABIA [id number] [place] [address] [place] MCV (RBC) [Entitic vol] 93.2 fL Normal 80.0-100.0 [facility] Comment on above: Order Comment: Speci men Type: BLOOD SPECIMENOrdering Facility: [facility] Address: [address] [place] [address] Performed By: #### 5 8410-2 ####[facility] LABCLIA [id number] [place] [address] [place] Nucleated RBC (Bld) [#/Vol] 10*3/uL Normal <0.01 [facility] Comment on above: Order Comment: Speci men Type: BLOOD SPECIMENOrdering Facility: [facility] Address: [address] [place] [address] Performed By: #### 5 8410-2 ####[facility] LABIA [id number] [place] [address] [place] Platelet mean volume (Bld) [Entitic vol] 9.5 fL Normal 9.0-12.7 [facility] Comment on above: Order Comment: Speci men Type: BLOOD SPECIMENOrdering Facility: [facility] Address: [address] [place] [address] Performed By: #### 5 8410-2 ####[facility] LABIA [id number] [place] [address] [place] Platelets (Bld) [#/Vol] 146 10*3/uL Low 150-400 [facility] Comment on above: Order Comment: Speci men Type: BLOOD SPECIMENOrdering Facility: [facility] Address: [address] [place] [address] Performed By: #### 5 8410-2 ####[facility] LABIA [id number] [place] [address] [place] RBC (Bld) [#/Vol] 2.49 10*6/uL Low 3.90-5.20 [facility] Comment on above: Order Comment: Speci men Type: BLOOD SPECIMENOrdering Facility: [facility] Address: [address] [place] [address] Performed By: #### 5 8410-2 ####[facility] LABIA [id number] [place] [address] [place] WBC (Bld) [#/Vol] 8.72 10*3/uL Normal 3.70-11.00 [facility] Comment on above: Order Comment: Speci men Type: BLOOD SPECIMENOrdering Facility: [facility] Address: [address] [place] [address] Performed By: #### 5 8410-2 ####[facility] LABCLIA [id number] [address] [address] [place] CNCOon 09-10-[address] [facility] Comprehensive metabolic 2000 panelon 09-10-2024 Albumin [Mass/Vol] 2.5 g/dL Low 3.9-4.9 [facility] Comment on above: Order Comment: Speci men Type: BLOOD SPECIMENOrdering Facility: [facility] Address: [address] [place] [address] Performed By: #### 2 4323-8, 27704-05, ####[facility] LABCLIA [id number] [place] [address] [place] ALP [Catalytic activity/Vol] 40 U/L Normal 34-123 [facility] Comment on above: Order Comment: Speci men Type: BLOOD SPECIMENOrdering Facility: [facility] Address: [address] [place] [address] Performed By: #### 2 4323-8, 2776-10, ####[facility] LABIA [id number] [place] [address] [place] ALT [Catalytic activity/Vol] 6 U/L Low 7-38 [facility] Comment on above: Order Comment: Speci men Type: BLOOD SPECIMENOrdering Facility: [facility] Address: [address] [place] [address] Performed By: #### 2 4323-8, 2776-10, ####[facility] LABIA [id number] [place] [id number] [place] Anion gap [Moles/Vol] 12 mmol/L Normal 8-15 [facility] Comment on above: Order Comment: Speci men Type: BLOOD SPECIMENOrdering Facility: [facility] Address: [address] [place] [address] Performed By: #### 2 4323-8, 27704-05, ####[facility] LABCLIA [id number] [place] [id number] [place] AST [Catalytic activity/Vol] 8 U/L Low 13-35 [facility] Comment on above: Order Comment: Speci men Type: BLOOD SPECIMENOrdering Facility: [facility] Address: [address] [place], [place] [address] Performed By: #### 2 4323-8, 2776-10, ####[facility] LABIA [id number] [place] [address] [place] Bilirubin [Mass/Vol] 0.5 mg/dL Normal 0.2-1.3 [facility] Comment on above: Order Comment: Speci men Type: BLOOD SPECIMENOrdering Facility: [facility] Address: [address] [place] [address] Performed By: #### 2 4323-8, 2776-10, ####[facility] LABIA [id number] [place] [address] [place] Calcium [Mass/Vol] 8.0 mg/dL Low 8.5-10.2 [facility] Comment on above: Order Comment: Speci men Type: BLOOD SPECIMENOrdering Facility: [facility] Address: [address] [place], [place] [address] Performed By: #### 2 4323-8, 2776-10, ####[facility] LABIA [id number] [place] [id number] [place] Chloride [Moles/Vol] 102 mmol/L Normal 98-107 [facility] Comment on above: Order Comment: Speci men Type: BLOOD SPECIMENOrdering Facility: [facility] Address: [address] [place] [address] Performed By: #### 2 4323-8, 2776-10, ####[facility] LABIA [id number] [address] [address] [place] CO2 [Moles/Vol] 22 mmol/L Normal 22-30 [facility] Comment on above: Order Comment: Speci men Type: BLOOD SPECIMENOrdering Facility: [facility] Address: [address] [place] [address] Performed By: #### 2 4323-8, 2776-10, ####[facility] LABIA [id number] [address] [address] [place] Creatinine [Mass/Vol] 0.58 mg/dL Normal 0.58-0.96 [facility] Comment on above: Order Comment: Speci men Type: BLOOD SPECIMENOrdering Facility: [facility] Address: [address] [place] [address] Performed By: #### 2 4323-8, 2776-10, ####[facility] LABIA [id number] [place] [id number] [place] Creatinine and Glomerular filtration rate.predicted panel (S/P/Bld) 96 mL/min/1.73m??? Normal >=60 [facility] Comment on above: Order Comment: Speci men Type: BLOOD SPECIMENOrdering Facility: [facility] Address: [address] [place] [address] Result Comment: Ethel mated Glomerular Filtration Rate (eGFR) is calculated using the 2020 CKD-EPI creatinine equation. This equation utilizes serum creatinine, sex, and age as parameters. The creatinine assay has traceable calibration to isotope dilution-mass spectrometry. Refer to KDIGO guidelines for clinical interpretation. In patients with unstable renal function, e.g. those with acute kidney injury, the eGFR may not accurately reflect actual GFR. Performed By: #### 2 4323-8, 2776-10, ####[facility] LABIA [id number] [address] [address] [place] Glucose [Mass/Vol] 818 mg/dL High 74-99 [facility] Comment on above: Order Comment: Speci men Type: BLOOD SPECIMENOrdering Facility: [facility] Address: [address] [place] [address] Result Comment: The [place] Diabetes [employer] (ADA) provides guidance for cutoff values for fasting glucose and random glucose. The ADA defines fasting as no caloric intake for at least 8 hours. Fasting plasma glucose results between 100 to 125 mg/dL indicate increased risk for diabetes (prediabetes).Fasting plasma glucose results greater than or equal to 126 mg/dL meet the criteria for diagnosis of diabetes. In the absence of unequivocal hyperglycemia, results should be confirmed by repeat testing. In a patient with classic symptoms of hyperglycemia or hyperglycemic crisis, random plasma glucose results greater than or equal to 200 mg/dL meet the criteria for diagnosis of diabetes.Reference: Standards of Medical Care in Diabetes 2016, [place] [employer]. Diabetes Care. 2016.39(Suppl 1). Performed By: #### 2 4323-8, 2777, ####[facility] LABCLIA [id number] [place] [address] [place] Potassium [Moles/Vol] 3.3 mmol/L Low 3.7-5.1 [facility] Comment on above: Order Comment: Speci men Type: BLOOD SPECIMENOrdering Facility: [facility] Address: [address] [place] [address] Performed By: #### 2 4323-8, 2777, ####[facility] LABCLIA [id number] [place] [id number] [place] Protein [Mass/Vol] 4.2 g/dL Low 6.3-8.0 [facility] Comment on above: Order Comment: Speci men Type: BLOOD SPECIMENOrdering Facility: [facility] Address: [address] [place] [address] Performed By: #### 2 4323-8, 2777-, ####[facility] LABCLIA [id number] [place] [address] [place] Sodium [Moles/Vol] 136 mmol/L Normal 136-144 [facility] Comment on above: Order Comment: Speci men Type: BLOOD SPECIMENOrdering Facility: [facility] Address: [address] [place] [address] Performed By: #### 2 4323-8, 27704-05, ####[facility] LABCLIA [id number] [place] [address] [place] Urea nitrogen [Mass/Vol] 7 mg/dL Normal 7-21 [facility] Comment on above: Order Comment: Speci men Type: BLOOD SPECIMENOrdering Facility: [facility] Address: [address] [place] [address] Performed By: #### 2 4323-8, 2776-10, ####[facility] LABCLIA [id number] [place] [address] [place] Albumin [Mass/Vol] 3.4 g/dL Low 3.9-4.9 [facility] Comment on above: Order Comment: Speci men Type: BLOOD SPECIMENOrdering Facility: [facility] Address: [address] [place] [address] Performed By: #### 2 4323-8, 2776-10, ####[facility] LABCLIA [id number] [place] [address] [place] ALP [Catalytic activity/Vol] 46 U/L Normal 34-123 [facility] Comment on above: Order Comment: Speci men Type: BLOOD SPECIMENOrdering Facility: [facility] Address: [address] [place] [address] Performed By: #### 2 4323-8, 2776-10, ####[facility] LABCLIA [id number] [place] [id number] [place] ALT [Catalytic activity/Vol] U/L Low 7-38 [facility] Comment on above: Order Comment: Speci men Type: BLOOD SPECIMENOrdering Facility: [facility] Address: [address] [place] [address] Result Comment: Resu lt rechecked. Performed By: #### 2 4323-8, 277-1, ####[facility] LABCLIA [id number] [place] [address] [place] Anion gap [Moles/Vol] 9 mmol/L Normal 8-15 [facility] Comment on above: Order Comment: Speci men Type: BLOOD SPECIMENOrdering Facility: [facility] Address: [address] [place] [address] Performed By: #### 2 4323-8, 27704-05, ####[facility] LABCLIA [id number] [place] [address] [place] AST [Catalytic activity/Vol] 10 U/L Low 13-35 [facility] Comment on above: Order Comment: Speci men Type: BLOOD SPECIMENOrdering Facility: [facility] Address: [address] [place] [address] Performed By: #### 2 4323-8, 27704-05, ####[facility] LABCLIA [id number] [place] [address] [place] Bilirubin [Mass/Vol] 0.4 mg/dL Normal 0.2-1.3 [facility] Comment on above: Order Comment: Speci men Type: BLOOD SPECIMENOrdering Facility: [facility] Address: [address] [place] [address] Performed By: #### 2 4323-8, 27704-05, ####[facility] LABCLIA [id number] [address] [address] [place] Calcium [Mass/Vol] 8.3 mg/dL Low 8.5-10.2 [facility] Comment on above: Order Comment: Speci men Type: BLOOD SPECIMENOrdering Facility: [facility] Address: [address] [place] [address] Performed By: #### 2 4323-8, 2776-10, ####[facility] LABCLIA [id number] [place] [id number] [place] Chloride [Moles/Vol] 100 mmol/L Normal 98-107 [facility] Comment on above: Order Comment: Speci men Type: BLOOD SPECIMENOrdering Facility: [facility] Address: [address] [place] [address] Performed By: #### 2 4323-8, 2776-10, ####[facility] LABCLIA [id number] [place] [address] [place] CO2 [Moles/Vol] 27 mmol/L Normal 22-30 [facility] Comment on above: Order Comment: Speci men Type: BLOOD SPECIMENOrdering Facility: [facility] Address: [address] [place] [address] Performed By: #### 2 4323-8, 2776-10, ####[facility] LABCLIA [id number] [place] [id number] [place] Creatinine [Mass/Vol] 0.81 mg/dL Normal 0.58-0.96 [facility] Comment on above: Order Comment: Speci men Type: BLOOD SPECIMENOrdering Facility: [facility] Address: [address] [place] [address] Performed By: #### 2 4323-8, 2776-10, ####[facility] LABCLIA [id number] [address] [address] [place] Creatinine and Glomerular filtration rate.predicted panel (S/P/Bld) 77 mL/min/1.73m??? Normal >=60 [facility] Comment on above: Order Comment: Cheng cooley Type: BLOOD SPECIMENOrdering Facility: [facility] Address: [address] [place] [address] Result Comment: Ethel mated Glomerular Filtration Rate (eGFR) is calculated using the 2020 CKD-EPI creatinine equation. This equation utilizes serum creatinine, sex, and age as parameters. The creatinine assay has traceable calibration to isotope dilution-mass spectrometry. Refer to KDIGO guidelines for clinical interpretation. In patients with unstable renal function, e.g. those with acute kidney injury, the eGFR may not accurately reflect actual GFR. Performed By: #### 2 4323-8, 2777-1, ####[facility] LABIA [id number] [place] [address] [place] Glucose [Mass/Vol] 147 mg/dL High 74-99 [facility] Comment on above: Order Comment: Cheng cooley Type: BLOOD SPECIMENOrdering Facility: [facility] Address: [address] [place] [address] Result Comment: The [place] Diabetes [employer] (ADA) provides guidance for cutoff values for fasting glucose and random glucose. The ADA defines fasting as no caloric intake for at least 8 hours. Fasting plasma glucose results between 100 to 125 mg/dL indicate increased risk for diabetes (prediabetes).Fasting plasma glucose results greater than or equal to 126 mg/dL meet the criteria for diagnosis of diabetes. In the absence of unequivocal hyperglycemia, results should be confirmed by repeat testing. In a patient with classic symptoms of hyperglycemia or hyperglycemic crisis, random plasma glucose results greater than or equal to 200 mg/dL meet the criteria for diagnosis of diabetes.Reference: Standards of Medical Care in Diabetes 2016, [place] [employer]. Diabetes Care. 2016.39(Suppl 1). Performed By: #### 2 4323-8, 2777-, ####[facility] LABIA [id number] [place] [id number] [place] Potassium [Moles/Vol] 3.7 mmol/L Normal 3.7-5.1 [facility] Comment on above: Order Comment: Cheng cooley Type: BLOOD SPECIMENOrdering Facility: [facility] Address: [address] [place], [place] [address] Performed By: #### 2 4323-8, 2777, ####[facility] LABCLIA [id number] [address] [address] [place] Protein [Mass/Vol] 5.3 g/dL Low 6.3-8.0 [facility] Comment on above: Order Comment: Speci men Type: BLOOD SPECIMENOrdering Facility: [facility] Address: [address] [place] [address] Performed By: #### 2 4323-8, 27704-05, ####[facility] LABCLIA [id number] [place] [id number] [place] Sodium [Moles/Vol] 136 mmol/L Normal 136-144 [facility] Comment on above: Order Comment: Speci men Type: BLOOD SPECIMENOrdering Facility: [facility] Address: [address] [place] [address] Performed By: #### 2 4323-8, 27704-05, ####[facility] LABIA [id number] [place] [id number] [place] Urea nitrogen [Mass/Vol] 13 mg/dL Normal 7-21 [facility] Comment on above: Order Comment: Speci men Type: BLOOD SPECIMENOrdering Facility: [facility] Address: [address] [place] [address] Performed By: #### 2 4323-8, 27704-05, ####[facility] LABIA [id number] [address] [address] [place] Magnesium SerPl-mCncon 09-10 Magnesium [Mass/Vol] 1.8 mg/dL Normal 1.7-2.3 [facility] Comment on above: Order Comment: Speci men Type: BLOOD SPECIMENOrdering Facility: [facility] Address: [address] [place], [place] [address] Performed By: #### 2 4323-8, 2777-, ####[facility] LABCLIA [id number] [place] [address] [place] Magnesium [Mass/Vol] 2.5 mg/dL High 1.7-2.3 [facility] Comment on above: Order Comment: Speci men Type: BLOOD SPECIMENOrdering Facility: [facility] Address: [address] [place] [address] Performed By: #### 2 4323-8, 2777, ####[facility] LABCLIA [id number] [place] [address] [place] Phosphate SerPl-mCncon 09-10 Phosphate [Mass/Vol] 1.3 mg/dL Low 2.7-4.8 [facility] Comment on above: Order Comment: Speci men Type: BLOOD SPECIMENOrdering Facility: [facility] Address: [address] [place] [address] Performed By: #### 2 4323-8, 27704-05, ####[facility] LABCLIA [id number] [place] [address] [place] Phosphate [Mass/Vol] 2.0 mg/dL Low 2.7-4.8 [facility] Comment on above: Order Comment: Speci men Type: BLOOD SPECIMENOrdering Facility: [facility] Address: [address] [place] [address] Result Comment: Resu lt rechecked. Performed By: #### 2 4323-8, 2777, ####[facility] LABCLIA [id number] [place] [id number] [place] THERAPY NTon 09-10-[address] [facility] XR ABDOMEN 1V SUPINEon 09-10 XR ABDOMEN 1V SUPINE [facility] CASE MGT INIT ASSESon 2023 CASE MGT INIT ASSES Normal Jamie [facility] CBC panel Auto (Bld)on 09-09 Erythrocyte distribution width (RBC) [Ratio] 16.3 % High 11.5-15.0 [facility] Comment on above: Order Comment: Speci men Type: BLOOD SPECIMENOrdering Facility: [facility] Address: [address] [place] [address] Performed By: #### 5 8410-2 ####[facility] LABIA [id number] [place] [address] [place] Hematocrit (Bld) [Volume fraction] 26.7 % Low 36.0-46.0 [facility] Comment on above: Order Comment: Speci men Type: BLOOD SPECIMENOrdering Facility: [facility] Address: [address] [place] [address] Performed By: #### 5 8410-2 ####[facility] LABIA [id number] [place] [address] [place] Hemoglobin (Bld) [Mass/Vol] 9.3 g/dL Low 11.5-15.5 [facility] Comment on above: Order Comment: Speci men Type: BLOOD SPECIMENOrdering Facility: [facility] Address: [address] [place] [address] Performed By: #### 5 8410-2 ####[facility] LABIA [id number] [place] [address] [place] MCH (RBC) [Entitic mass] 31.4 pg Normal 26.0-34.0 [facility] Comment on above: Order Comment: Speci men Type: BLOOD SPECIMENOrdering Facility: [facility] Address: [address] [place] [address] Performed By: #### 5 8410-2 ####[facility] LABIA [id number] [place] [address] [place] MCHC (RBC) [Mass/Vol] 34.8 g/dL Normal 30.5-36.0 [facility] Comment on above: Order Comment: Speci men Type: BLOOD SPECIMENOrdering Facility: [facility] Address: [address] [place] [address] Performed By: #### 5 8410-2 ####[facility] LABCLIA [id number] [place] [address] [place] MCV (RBC) [Entitic vol] 90.2 fL Normal 80.0-100.0 [facility] Comment on above: Order Comment: Speci men Type: BLOOD SPECIMENOrdering Facility: [facility] Address: [address] [place] [address] Performed By: #### 5 8410-2 ####[facility] LABCLIA [id number] [place] [address] [place] Nucleated RBC (Bld) [#/Vol] 10*3/uL Normal <0.01 [facility] Comment on above: Order Comment: Speci men Type: BLOOD SPECIMENOrdering Facility: [facility] Address: [address] [place] [address] Performed By: #### 5 8410-2 ####[facility] [facility] LABIA [id number] [place] [address] [place] Platelet mean volume (Bld) [Entitic vol] 9.0 fL Normal 9.0-12.7 [facility] Comment on above: Order Comment: Speci men Type: BLOOD SPECIMENOrdering Facility: [facility] Address: [address] [place] [address] Performed By: #### 5 8410-2 ####[facility] LABCLIA [id number] [place] [address] [place] Platelets (Bld) [#/Vol] 157 10*3/uL Normal 150-400 [facility] Comment on above: Order Comment: Speci men Type: BLOOD SPECIMENOrdering Facility: [facility] Address: [address] [place] [address] Performed By: #### 5 8410-2 ####[facility] LABCLIA [id number] [place] [address] [place] RBC (Bld) [#/Vol] 2.96 10*6/uL Low 3.90-5.20 [facility] Comment on above: Order Comment: Speci men Type: BLOOD SPECIMENOrdering Facility: [facility] Address: [address] [place] [address] Performed By: #### 5 8410-2 ####[facility] LABCLIA [id number] [place] [address] [place] WBC (Bld) [#/Vol] 9.46 10*3/uL Normal 3.70-11.00 [facility] Comment on above: Order Comment: Speci men Type: BLOOD SPECIMENOrdering Facility: [facility] Address: [address] [place] [address] Performed By: #### 5 8410-2 ####[facility] LABCLIA [id number] [place] [address] [place] CNPNon 09-09-[address] [facility] ANES POSTPROC EVALon 024 ANES POSTPROC EVAL [facility] ANES PRE-OPon 09-08-2024 ANES PRE-OP Normal [facility] BRIEF OP NOTon 09-08-2024 BRI[address] OP NOT Normal [facility] CBC panel Auto (Bld)on 09-08 Erythrocyte distribution width (RBC) [Ratio] 16.0 % High 11.5-15.0 [facility] Comment on above: Order Comment: Speci men Type: BLOOD SPECIMENOrdering Facility: [facility] Address: [address] [place] [address] Performed By: #### 5 8410-2 ####[facility] LABCLIA [id number] [place] [address] [place] Hematocrit (Bld) [Volume fraction] 27.5 % Low 36.0-46.0 [facility] Comment on above: Order Comment: Speci men Type: BLOOD SPECIMENOrdering Facility: [facility] Address: [address] [place] [address] Performed By: #### 5 8410-2 ####[facility] LABIA [id number] [place] [address] [place] Hemoglobin (Bld) [Mass/Vol] 9.4 g/dL Low 11.5-15.5 [facility] Comment on above: Order Comment: Speci men Type: BLOOD SPECIMENOrdering Facility: [facility] Address: [address] [place] [address] Performed By: #### 5 8410-2 ####[facility] LABIA [id number] [place] [address] [place] MCH (RBC) [Entitic mass] 31.1 pg Normal 26.0-34.0 [facility] Comment on above: Order Comment: Speci men Type: BLOOD SPECIMENOrdering Facility: [facility] Address: [address] [place] [address] Performed By: #### 5 8410-2 ####[facility] LABIA [id number] [place] [address] [place] MCHC (RBC) [Mass/Vol] 34.2 g/dL Normal 30.5-36.0 [facility] Comment on above: Order Comment: Speci men Type: BLOOD SPECIMENOrdering Facility: [facility] Address: [address] [place] [address] Performed By: #### 5 8410-2 ####[facility] LABIA [id number] [place] [address] [place] MCV (RBC) [Entitic vol] 91.1 fL Normal 80.0-100.0 [facility] Comment on above: Order Comment: Speci men Type: BLOOD SPECIMENOrdering Facility: [facility] Address: [address] [place] [address] Performed By: #### 5 8410-2 ####[facility] LABCLIA [id number] [place] [address] [place] Nucleated RBC (Bld) [#/Vol] 10*3/uL Normal <0.01 [facility] Comment on above: Order Comment: Speci men Type: BLOOD SPECIMENOrdering Facility: [facility] Address: [address] [place] [address] Performed By: #### 5 8410-2 ####[facility] LABIA [id number] [place] [address] [place] Platelet mean volume (Bld) [Entitic vol] 9.1 fL Normal 9.0-12.7 [facility] Comment on above: Order Comment: Speci men Type: BLOOD SPECIMENOrdering Facility: [facility] Address: [address] [place] [address] Performed By: #### 5 8410-2 ####[facility] LABIA [id number] [place] [address] [place] Platelets (Bld) [#/Vol] 143 10*3/uL Low 150-400 [facility] Comment on above: Order Comment: Speci men Type: BLOOD SPECIMENOrdering Facility: [facility] Address: [address] [place] [address] Performed By: #### 5 8410-2 ####[facility] LABIA [id number] [place] [address] [place] RBC (Bld) [#/Vol] 3.02 10*6/uL Low 3.90-5.20 [facility] Comment on above: Order Comment: Speci men Type: BLOOD SPECIMENOrdering Facility: [facility] Address: [address] [place] [address] Performed By: #### 5 8410-2 ####[facility] LABCLIA [id number] [place] [address] [place] WBC (Bld) [#/Vol] 8.86 10*3/uL Normal 3.70-11.00 [facility] Comment on above: Order Comment: Speci men Type: BLOOD SPECIMENOrdering Facility: [facility] Address: [address] [place] [address] Performed By: #### 5 8410-2 ####[facility] LABCLIA [id number] [place] [address] [place] Erythrocyte distribution width (RBC) [Ratio] 15.4 % High 11.5-15.0 [facility] Comment on above: Order Comment: Speci men Type: BLOOD SPECIMENOrdering Facility: [facility] Address: [address] [place] [address] Performed By: #### 5 8410-2 ####[facility] LABIA [id number] [place] [address] [place] Hematocrit (Bld) [Volume fraction] 30.6 % Low 36.0-46.0 [facility] Comment on above: Order Comment: Speci men Type: BLOOD SPECIMENOrdering Facility: [facility] Address: [address] [place] [address] Performed By: #### 5 8410-2 ####[facility] LABCLIA [id number] [place] [address] [place] Hemoglobin (Bld) [Mass/Vol] 10.3 g/dL Low 11.5-15.5 [facility] Comment on above: Order Comment: Speci men Type: BLOOD SPECIMENOrdering Facility: [facility] Address: [address] [place] [address] Performed By: #### 5 8410-2 ####[facility] LABCLIA [id number] [place] [address] [place] MCH (RBC) [Entitic mass] 30.7 pg Normal 26.0-34.0 [facility] Comment on above: Order Comment: Speci men Type: BLOOD SPECIMENOrdering Facility: [facility] Address: [address] [place] [address] Performed By: #### 5 8410-2 ####[facility] LABIA [id number] [place] [address] [place] MCHC (RBC) [Mass/Vol] 33.7 g/dL Normal 30.5-36.0 [facility] Comment on above: Order Comment: Speci men Type: BLOOD SPECIMENOrdering Facility: [facility] Address: [address] [place] [address] Performed By: #### 5 8410-2 ####[facility] LABIA [id number] [place] [address] [place] MCV (RBC) [Entitic vol] 91.1 fL Normal 80.0-100.0 [facility] Comment on above: Order Comment: Speci men Type: BLOOD SPECIMENOrdering Facility: [facility] Address: [address] [place] [address] Performed By: #### 5 8410-2 ####[facility] LABIA [id number] [place] [address] [place] Nucleated RBC (Bld) [#/Vol] 10*3/uL Normal <0.01 [facility] Comment on above: Order Comment: Speci men Type: BLOOD SPECIMENOrdering Facility: [facility] Address: [address] [place] [address] Performed By: #### 5 8410-2 ####[facility] LABIA [id number] [place] [address] [place] Platelet mean volume (Bld) [Entitic vol] 8.9 fL Low 9.0-12.7 [facility] Comment on above: Order Comment: Speci men Type: BLOOD SPECIMENOrdering Facility: [facility] Address: [address] [place] [address] Performed By: #### 5 8410-2 ####[facility] LABCLIA [id number] [place] [address] [place] Platelets (Bld) [#/Vol] 167 10*3/uL Normal 150-400 [facility] Comment on above: Order Comment: Speci men Type: BLOOD SPECIMENOrdering Facility: [facility] Address: [address] [place] [address] Performed By: #### 5 8410-2 ####[facility] LABIA [id number] [place] [address] [place] RBC (Bld) [#/Vol] 3.36 10*6/uL Low 3.90-5.20 [facility] Comment on above: Order Comment: Speci men Type: BLOOD SPECIMENOrdering Facility: [facility] Address: [address] [place] [address] Performed By: #### 5 8410-2 ####[facility] LABCLIA [id number] [place] [address] [place] WBC (Bld) [#/Vol] 7.96 10*3/uL Normal 3.70-11.00 [facility] Comment on above: Order Comment: Speci men Type: BLOOD SPECIMENOrdering Facility: [facility] Address: [address] [place] [address] Performed By: #### 5 8410-2 ####[facility] LABCLIA [id number] [place] [id number] [place] CNPNon 09-08-[address] [facility] Comprehensive metabolic 2000 panelon 09-08-2024 Albumin [Mass/Vol] 3.9 g/dL Normal 3.9-4.9 [facility] Comment on above: Order Comment: Speci men Type: BLOOD SPECIMENOrdering Facility: [facility] Address: [address] [id number] Result Comment: Resu lt rechecked. Performed By: #### 2 4323-8, 67107-8, 2776-10 ####[facility] LABCLIA [id number] [place] [address] [place] ALP [Catalytic activity/Vol] 35 U/L Normal 34-123 [facility] Comment on above: Order Comment: Speci men Type: BLOOD SPECIMENOrdering Facility: [facility] Address: [address] [place], [place] [id number] Performed By: #### 2 4323-8, , 2776-10 ####[facility] LABCLIA [id number] [place] [address] [place] ALT [Catalytic activity/Vol] 10 U/L Normal 7-38 [facility] Comment on above: Order Comment: Speci men Type: BLOOD SPECIMENOrdering Facility: [facility] Address: [address] [place] [address] Performed By: #### 2 4323-8, , 2776-10 ####[facility] LABIA [id number] [place] [address] [place] Anion gap [Moles/Vol] 13 mmol/L Normal 8-15 [facility] Comment on above: Order Comment: Speci men Type: BLOOD SPECIMENOrdering Facility: [facility] Address: [address] [id number] Performed By: #### 2 4323-8, , 2776-10 ####[facility] LABIA [id number] [place] [id number] [place] AST [Catalytic activity/Vol] 15 U/L Normal 13-35 [facility] Comment on above: Order Comment: Speci men Type: BLOOD SPECIMENOrdering Facility: [facility] Address: [address] [place] [address] Performed By: #### 2 4323-8, , 2776-10 ####[facility] LABCLIA [id number] [place] [address] [place] Bilirubin [Mass/Vol] 0.7 mg/dL Normal 0.2-1.3 [facility] Comment on above: Order Comment: Speci men Type: BLOOD SPECIMENOrdering Facility: [facility] Address: [address] [place] [address] Performed By: #### 2 4323-8, , 2776-10 ####[facility] LABCLIA [id number] [place] [address] [place] Calcium [Mass/Vol] 7.9 mg/dL Low 8.5-10.2 [facility] Comment on above: Order Comment: Speci men Type: BLOOD SPECIMENOrdering Facility: [facility] Address: [address] [place] [address] Result Comment: Resu lt rechecked. Performed By: #### 2 4323-8, , 2776-10 ####[facility] LABCLIA [id number] [place] [address] [place] Chloride [Moles/Vol] 101 mmol/L Normal 98-107 [facility] Comment on above: Order Comment: Speci men Type: BLOOD SPECIMENOrdering Facility: [facility] Address: [address] [place] [address] Performed By: #### 2 4323-8, , 2776-10 ####[facility] LABCLIA [id number] [place] [address] [place] CO2 [Moles/Vol] 23 mmol/L Normal 22-30 [facility] Comment on above: Order Comment: Speci men Type: BLOOD SPECIMENOrdering Facility: [facility] Address: [address] [place] [address] Performed By: #### 2 4323-8, 13641-0, 2776-10 ####[facility] LABIA [id number] [place] [id number] [place] Creatinine [Mass/Vol] 0.87 mg/dL Normal 0.58-0.96 [facility] Comment on above: Order Comment: Speckimberly men Type: BLOOD SPECIMENOrdering Facility: [facility] Address: [address] [place] [address] Performed By: #### 2 4323-8, , 2776-10 ####[facility] [id number] [place] [address] [place] Creatinine and Glomerular filtration rate.predicted panel (S/P/Bld) 71 mL/min/1.73m??? Normal >=60 [facility] Comment on above: Order Comment: Cheng cooley Type: BLOOD SPECIMENOrdering Facility: [facility] Address: [address] [place] [address] Result Comment: Ethel mated Glomerular Filtration Rate (eGFR) is calculated using the 2020 CKD-EPI creatinine equation. This equation utilizes serum creatinine, sex, and age as parameters. The creatinine assay has traceable calibration to isotope dilution-mass spectrometry. Refer to KDIGO guidelines for clinical interpretation. In patients with unstable renal function, e.g. those with acute kidney injury, the eGFR may not accurately reflect actual GFR. Performed By: #### 2 4323-8, , 2776-10 ####[facility] LABIA [id number] [place] [id number] [place] Glucose [Mass/Vol] 125 mg/dL High 74-99 [facility] Comment on above: Order Comment: Cheng men Type: BLOOD SPECIMENOrdering Facility: [facility] Address: [address] [place] [address] Result Comment: The [place] Diabetes Association (ADA) provides guidance for cutoff values for fasting glucose and random glucose. The ADA defines fasting as no caloric intake for at least 8 hours. Fasting plasma glucose results between 100 to 125 mg/dL indicate increased risk for diabetes (prediabetes).Fasting plasma glucose results greater than or equal to 126 mg/dL meet the criteria for diagnosis of diabetes. In the absence of unequivocal hyperglycemia, results should be confirmed by repeat testing. In a patient with classic symptoms of hyperglycemia or hyperglycemic crisis, random plasma glucose results greater than or equal to 200 mg/dL meet the criteria for diagnosis of diabetes.Reference: Standards of Medical Care in Diabetes 2016, [place] [employer]. Diabetes Care. 2016.39(Suppl 1). Performed By: #### 2 4323-8, , 2776-10 ####[facility] LABCLIA [id number] [place] [id number] [place] Potassium [Moles/Vol] 3.4 mmol/L Low 3.7-5.1 [facility] Comment on above: Order Comment: Speci men Type: BLOOD SPECIMENOrdering Facility: [facility] Address: [address] [place] [address] Performed By: #### 2 4323-8, , 2776-10 ####[facility] LABIA [id number] [place] [address] [place] Protein [Mass/Vol] 5.2 g/dL Low 6.3-8.0 [facility] Comment on above: Order Comment: Speci men Type: BLOOD SPECIMENOrdering Facility: [facility] Address: [address] [place] [address] Result Comment: Resu lt rechecked. Performed By: #### 2 4323-8, , 2776-10 ####[facility] LABIA [id number] [place] [id number] [place] Sodium [Moles/Vol] 137 mmol/L Normal 136-144 [facility] Comment on above: Order Comment: Speci men Type: BLOOD SPECIMENOrdering Facility: [facility] Address: [address] [place] [address] Performed By: #### 2 4323-8, 31239-7, 2776- ####[facility] LABCLIA [id number] [place] [id number] [place] Urea nitrogen [Mass/Vol] 17 mg/dL Normal 7-21 [facility] Comment on above: Order Comment: Speci men Type: BLOOD SPECIMENOrdering Facility: [facility] Address: [address] [place] [address] Performed By: #### 2 4323-8, 35358-5, 2776-10 ####[facility] LABCLIA [id number] [place] [id number] [place] Magnesium SerPl-ncon 09-08 Magnesium [Mass/Vol] 1.6 mg/dL Low 1.7-2.3 [facility] Comment on above: Order Comment: Speci men Type: BLOOD SPECIMENOrdering Facility: [facility] Address: [address] [place] [address] Performed By: #### 2 4323-8, , 2776-10 ####[facility] LABCLIA [id number] [place] [id number] [place] OPERATIVE NOon 09-08-[address] [facility] Phosphate SerPl-mCncon 09-08 Phosphate [Mass/Vol] 4.2 mg/dL Normal 2.7-4.8 [facility] Comment on above: Order Comment: Speci men Type: BLOOD SPECIMENOrdering Facility: [facility] Address: [address] [place] [address] Performed By: #### 2 4323-8, 39644-4, 2776-10 ####[facility] LABCLIA [id number] [place] [id number] [place] SURGICAL PATHOLOGYon 024 BLOCK FOR ADDITIONAL BIOMARKERS/MOLECULAR STUDIES B[address] [facility] Comment on above: Order Comment: Speci men Type: TISSUE SPECIMENOrdering Facility: [facility] Address: [address] [place] [address] Performed By: #### S ####[facility] LABIA [id number] [address] [place] CASE REPORT Normal [facility] Comment on above: Order Comment: Speci men Type: TISSUE SPECIMENOrdering Facility: [facility] Address: [address] [place] [address] Result Comment: [facility] Pathology Report Case: [id number] Provider: Fredis Buckner MD Collected: 09/08/2024 11:28 AMOrdering Location: Admitting Received: 09/08/2024 02:40 PMPathologist: Bee Young MDSpecimens: A) - Fallopian Tube And Ovary Left B) - Uterus with Cervix and Right Adnexa (Describe), uterus, cervix, right tube and ovary C) - Omentum, Resection D) - Colon, Sigmoid, Resection, portion of sigmoid colon E) - Small Bowel, Resection F) - Small Bowel, Ileostomy Performed By: #### S ####[facility] [id number] [address] [place] CLINICAL HISTORY Normal [facility] Comment on above: Order Comment: Speci men Type: TISSUE SPECIMENOrdering Facility: 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 High-grade carcinoma invades the outer myometrium from the serosal surface. Additionally, it is present in a section of the lower uterine segment myometrium, where its exact location is difficult to interpret given tangential sectioning of the piece, but it is not present within the endometrium. This case was reviewed at the departmental gynecologic consensus conference on 09/14/24, and Huber Jackson, Jasvir, Vincent, and [facility] agree.Dr. Med Burch (GI and Hepatobiliary Pathology) has reviewed part F of this case and agrees. Performed By: #### S ####[facility] LABCLIA [id number] [facility] [id number] FINAL DIAGNOSIS Normal [facility] Comment on above: Order Comment: Speci men Type: TISSUE SPECIMENOrdering Facility: [facility] Address: [address] [place] [address] Result Comment: A. L eft fallopian tube and ovary, salpingo-oophorectomy:- Ovary with residual high-grade carcinoma with treatment effect; see comment and synoptic report.- Fallopian tube with adhesions to surface of ovary.B. Uterus with cervix and right fallopian tube and ovary, hysterectomy and right salpingo-oophorectomy:- Cervix: Squamous atrophy.- Endometrium: Inactive endometrium.- Myometrium: Involved by high-grade carcinoma, including in the lower uterine segment; see comment. -Leiomyomas with degenerative changes.- Serosa: Focal involvement by high-grade carcinoma.- Right fallopian tube: Serosal involvement by high-grade carcinoma.- Right ovary: Residual high-grade carcinoma with treatment effect; see comment and synoptic report.C. Omentum, resection:-Rare high-grade carcinoma glands in a background of extensive treatment effect.D. Portion of sigmoid colon, resection:-High-grade carcinoma involving pericolonic soft tissue and muscularis propria, margins negative.E. Portion of small bowel, resection:-Focal mesenteric hemorrhage.F. Small bowel ileostomy, resection:- Segment of small bowel with ostomy site changes; see comment Performed By: #### S ####[facility] LABCLIA [id number] [place] [address] [place] FINAL PERFORMING LAB Normal [facility] Comment on above: Order Comment: Speci men Type: TISSUE SPECIMENOrdering Facility: [facility] Address: [address] [place] [address] Result Comment: Diag nostic interpretation performed at [facility], [address] [place] [address] CLIA# [id number] Director: Lam Flaherty M.D. Performed By: #### S ####[facility] LABCLIA [id number] 35 [address] [place] GROSS DESCRIPTION Normal [facility] Comment on above: Order Comment: Speci men Type: TISSUE SPECIMENOrdering Facility: [facility] Address: [address] [place] [address] Result Comment: A. F allopian Tube And Ovary LeftReceived in formalin labeled fallopian tube and ovary left is a 7.5 x 5.5 x 2.5 cm ovary with attached possible fallopian tube weighing 33.5 g. The external surface is disrupted and demonstrates an collapsed cystic structure without papillations.Sectioning reveals a unilocular cystic cavity measuring 6 x 5.5 x 2 cm devoid of contents. Solid areas account for approximately 45% of the cut surface area. The inner lining is del rosario-delgado and wrinkled with a focal granular area measuring 4 x 2 x 0.2 cm occupying approximately 20% of the inner surface. Uninvolved ovarian tissue is not present. The fallopian tube measures approximately 1.5 cm in length by 0.7 cm in diameter and demonstrates a possible fimbriated end with scant villi. The outer surface is delgado-del rosario pink and diffusely covered by fibrous adhesions. Sectioning reveals a pinpoint lumen and unremarkable cut surfaces. Asset Protection Representative sections are submitted as follows:A1-A4 ovarian cyst with entire granular areaA5-A6 claim representative solid areasA7-A8 entire possible fallopian tubeB. Uterus with Cervix and Right Adnexa (Describe)Received in formalin labeled uterus, cervix, right tube and ovary is a uterus with detached cervix and attached right fallopian tube and right ovary weighing 54.2 g and measuring 7.5 x 7 x 4 cm in aggregate. No vaginal cuff is present. The serosal surface is del rosario-delgado to brown and markedly ragged with diffuse cauterized fibrous adhesions. Anterior and posterior halves cannot be discerned due to disruption of the specimen. The ectocervix is meneses-pink and unremarkable with a stenotic, slit-like cervical os.The endocervical canal measures approximately 3 cm in length, is markedly fibrotic and demonstrates multiple nabothian cysts. Sectioning the cervix reveals fibrotic cut surfaces. The cervix is avulsed from the uterus at the lower uterine segment and is markedly ragged. The endometrial cavity measures approximately 2 cm in length by 3 cm in greatest width. The endometrium pink-dle rosario red and velvety with no polyps or discrete lesions identified. The endometrium measures 0.1 cm in thickness with no invasive lesion grossly identified. The myometrium measures up to 1.4 cm in normal thickness and distorted by 3 del rosario-white, whorled, rubbery, and well-circumscribed intramural nodules ranging from 0.3 to 0.8 cm in greatest dimension. No calcification, hemorrhage or necrosis is identified.The attached right fallopian tube measures 2.9 cm in length by 1 cm in diameter and exhibits a normal villous fimbriated end. The outer surface is delgado-del rosario pink and covered by hemorrhagic fibrous adhesions. Sectioning reveals a complete lumen and mildly hemorrhagic cut surfaces. The right ovary weighs 10 g and measures 3 x 3 x 3.2 cm. The outer surface is del rosario-delgado, dull and diffusely covered by hemorrhagic fibrous adhesions. Sectioning reveals 20% solid areas admixed with 10% multiloculated cystic areas. The solid areas are well-defined del rosario, firm and exhibit no hemorrhage, necrosis or calcification. The outer surface of the ovary possibly appears what appear involved. The cystic structures measure 0.2 to 0.7 cm in greatest dimension and are filled with scant viscous fluid. The inner linings are unremarkable with no excrescences identified. Uninvolved ovarian tissue is not present. Asset Protection Representative sections are submitted as follows:B1 one half of cervixB2 opposing half of cervixB3 lower uterine segmentB4 one half of uterine wall, full-thicknessB5 opposing half of uterine wall, full-thicknessB6 claim representative nodulesB7-B8 fallopian tube, submitted entirelyB9-B11 claim representative ovaryC. Omentum, ResectionReceived in formalin labeled omentum, resection is a 8.7 x 4 x 1.5 cm aggregate of yellow, lobulated fatty tissue consistent with omentum. Dissection reveals a pale yellow-del rosario, firm indurated area measuring 4 cm in greatest dimension. Sectioning reveals pale yellow-del rosario cut surfaces. Lesional areas represent 30% of the omental tissue. Asset Protection Representative sections are submitted in C1-C3.D. Colon, Sigmoid, ResectionReceived in formalin labeled portion of sigmoid colon are 2 unoriented segments of previously opened bowel measuring 3 cm in length by 4.5 cm in circumference by 0.4 cm in thickness and 9 cm in length by 3.3 x 0.4 cm in thickness. The margins are arbitrarily inked blue and orange. The contour of the bowel is normal with no areas of structure or dilatation. The serosal surface is del rosario-pink, dull and diffusely covered by fibrous adhesions. The smaller bowel segment demonstrates a focal cauterized, indurated lesion located 1 cm from the inked orange margin and 0.7 cm from the inked blue margin. The remaining bowel wall is grossly unremarkable. The mucosa is del rosario, soft and normally folded with no additional lesions identified. The larger bowel segment demonstrates a 1.5 x 1 cm focal indurated serosal lesion located 1 cm from the inked orange margin and 3 cm from the inked blue margin. Also identified is a transmural defect surrounded by hemorrhagic fibrous adhesions located 1.7 cm from the inked blue margin 3 cm inked orange margin and 1 cm from the indurated lesion. The remaining bowel wall is grossly unremarkable. The mucosal surfaces are del rosario, soft and normally folded with no other lesions identified. Asset Protection Representative sections are submitted as follows:D1 small segment margins with indurated lesionD2 smaller segment margins with uninvolved bowel wallD3 larger segment margins, perpendicularD4-D5 larger segment indurated lesionD6 larger segment defectE. Small Bowel, ResectionReceived in formalin labeled small bowel resection is a 4.5 cm in length by 6 cm in circumference by 0.4 cm in thickness unoriented segment of bowel. The margins are arbitrarily inked blue and orange. The contour of the bowel is normal with no areas of stricture or dilation. The serosal surface is dusky pink-delgado, dull and demonstrates multifocal thin fibrous adhesions. Opening reveals del rosario-green, soft, normally folded mucosal surfaces with no additional lesions identified. Sectioning reveals a 1.5 x 1.5 x 1 cm area of mesenteric hemorrhage. No other discrete lesions are identified. Asset Protection Representative sections are submitted as follows:E1 margins, perpendicularE2 bowel wall with hemorrhagic mesenteryF. Small Bowel, IleostomyReceived in formalin labeled small bowel, ileostomy is a 2.8 cm in length by 5 cm in circumference by 0.5 cm in thickness segment of small bowel demonstrating a 2.8 x 2.5 x 1 cm and ostomy site lined by a thin rim of skin. The ostomy site is unremarkable. The serosal surface is del rosario, smooth and unremarkable. Opening reveals del rosario, soft, normally folded mucosal surfaces with no lesions identified. Asset Protection Representative sections are submitted in F1.KSZ September 09, 2024 2:16 PMGross examination [facility], [address] [place] [address] Performed By: #### S ####[facility] LABCLIA [id number] [facility] [place] [address] [place] SYNOPTIC REPORT Normal [facility] Comment on above: Order Comment: Speci men Type: TISSUE SPECIMENOrdering Facility: [facility] Address: [address] [place] [address] Result Comment: OVAR Y or FALLOPIAN TUBE or PRIMARY PERITONEUMOVARY OR FALLOPIAN TUBE OR PRIMARY PERITONEUM - All [id number] Edition - Protocol posted: 03/24/2024SPECIMEN Procedure: Total hysterectomy and bilateral salpingo-oophorectomy Procedure: Omentectomy Procedure: partial colectomy, small bowel ostomy reversal Hysterectomy Type: Not specified Specimen Integrity: Right Ovary Integrity: Capsule intact Specimen Integrity: Left Ovary Integrity: Capsule intact Uterus Integrity: IntactTUMOR Tumor Site: Bilateral ovaries Tumor Size: Greatest Dimension (Centimeters): 2 cm Histologic Type: High-grade serous carcinoma Histologic Grade: High-grade Ovarian Surface Involvement: Present, right Fallopian Tube Surface Involvement: Present, right Other Tissue / Organ Involvement: Omentum Other Tissue / Organ Involvement: SIgmoid colon Largest Extrapelvic Peritoneal Focus: Microscopic Peritoneal / Ascitic Fluid Involvement: Not submitted / unknown Chemotherapy Response Score (CRS): CRS3 (marked response with no or minimal residual cancer)REGIONAL LYMPH NODES Regional Lymph Node Status: Not applicable (no regional lymph nodes submitted or found)pTNM CLASSIFICATION (AJCC 8th Edition) Reporting of pT, pN, and (when applicable) pM categories is based on information available to the pathologist at the time the report is issued. As per the AJCC (Chapter 1, 8th Ed.) it is the managing physician's responsibility to establish the final pathologic stage based upon all pertinent information, including but potentially not limited to this pathology report. Modified Classification: y pT Category: pT3a pN Category: pN not assigned (no nodes submitted or found)FIGO STAGE FIGO Stage: [id number] STUDIES p53 Immunohistochemistry: Abnormal (mutated) expression : Overexpression (strong, diffuse nuclear expression) Performed By: #### S ####[facility] [id number] [place] [address] [place] VENOUS BLOOD GASES WITH IONI Life360D MAGNESIUMon 09-08-2024 Base excess Calc (BldV) [Moles/Vol] 1 mmol/L Normal 0-2 [facility] Comment on above: Order Comment: Speci men Type: VENOUS BLOOD SPECIMENOrdering Facility: [facility] Address: [address] [place] [address] Performed By: #### V ALLMG ####[facility] [id number] [place] [address] [place] Calcium.ionized (Bld) [Mass/Vol] 1.10 mmol/L Normal 1.08-1.30 [facility] Comment on above: Order Comment: Speci men Type: VENOUS BLOOD SPECIMENOrdering Facility: [facility] Address: [address] [place] [address] Performed By: #### V ALLMG ####[facility] LABIA [id number] [place] [address] [place] Calcium.ionized adjusted to pH 7.4 (BldA) [Moles/Vol] 1.12 mmol/L Normal 1.08-1.30 [facility] Comment on above: Order Comment: Speci men Type: VENOUS BLOOD SPECIMENOrdering Facility: [facility] Address: [address] [place] [address] Performed By: #### V ALLMG ####[facility] LABCLIA [id number] [place] [address] [place] Carboxyhemoglobin (BldV) [Mass fraction] 2.0 % Normal 0.0-2.0 [facility] Comment on above: Order Comment: Speci men Type: VENOUS BLOOD SPECIMENOrdering Facility: [facility] Address: [address] [place] [address] Result Comment: Carb oxyhemoglobin Reference Range for Smokers: 2.0-8.0% Performed By: #### V ALLMG ####[facility] LABCLIA [id number] [place] [address] [place] CO2 (BldV) [Partial pressure] 38 mm[Hg] Low 42-55 [facility] Comment on above: Order Comment: Speci men Type: VENOUS BLOOD SPECIMENOrdering Facility: [facility] Address: [address] [place] [address] Performed By: #### V ALLMG ####[facility] LABCLIA [id number] [place] [address] [place] CO2 adjusted to patient's actual temperature (BldV) [Partial pressure] 38 mmHg Low 42-55 [facility] Comment on above: Order Comment: Speci men Type: VENOUS BLOOD SPECIMENOrdering Facility: [facility] Address: [address] [place] [address] Performed By: #### V ALLMG ####[facility] LABCLIA [id number] [place] [address] [place] Glucose [Mass/Vol] 158 mg/dL High 60-105 [facility] Comment on above: Order Comment: Speci men Type: VENOUS BLOOD SPECIMENOrdering Facility: [facility] Address: [address] [place] [address] Performed By: #### V ALLMG ####[facility] LABCLIA [id number] [place] [address] [place] HCO3 (Bld) [Moles/Vol] 25 mmol/L Normal 24-28 [facility] Comment on above: Order Comment: Speci men Type: VENOUS BLOOD SPECIMENOrdering Facility: [facility] Address: [address] [place] [address] Performed By: #### V ALLMG ####[facility] LABCLIA [id number] [place] [address] [place] Hematocrit (Bld) [Volume fraction] 25.6 % Low 36.0-46.0 [facility] Comment on above: Order Comment: Speci men Type: VENOUS BLOOD SPECIMENOrdering Facility: [facility] Address: [address] [place] [address] Performed By: #### V ALLMG ####[facility] LABIA [id number] [place] [address] [place] Hemoglobin (Bld) [Mass/Vol] 8.2 g/dL Low 11.5-15.5 [facility] Comment on above: Order Comment: Speci men Type: VENOUS BLOOD SPECIMENOrdering Facility: [facility] Address: [address] [place] [address] Performed By: #### V ALLMG ####[facility] LABIA [id number] [place] [address] [place] Lactate [Moles/Vol] 1.8 mmol/L Normal 0.5-2.2 [facility] Comment on above: Order Comment: Speci men Type: VENOUS BLOOD SPECIMENOrdering Facility: [facility] Address: [address] [place] [address] Performed By: #### V ALLMG ####[facility] LABCLIA [id number] [place] [address] [place] Magnesium [Moles/Vol] 0.45 mmol/L Normal 0.45-0.60 [facility] Comment on above: Order Comment: Speci men Type: VENOUS BLOOD SPECIMENOrdering Facility: [facility] Address: [address] [place] [address] Performed By: #### V ALLMG ####[facility] LABCLIA [id number] [place] [address] [place] Methemoglobin (Bld) [Mass fraction] 0.8 % Normal 0.0-1.5 [facility] Comment on above: Order Comment: Speci men Type: VENOUS BLOOD SPECIMENOrdering Facility: [facility] Address: [address] [place] [address] Performed By: #### V ALLMG ####[facility] LABCLIA [id number] [place] [address] [place] Oxygen (BldV) [Partial pressure] 75 mm[Hg] High 35-45 [facility] Comment on above: Order Comment: Speci men Type: VENOUS BLOOD SPECIMENOrdering Facility: [facility] Address: [address] [place] [address] Performed By: #### V ALLMG ####[facility] LABCLIA [id number] [place] [address] [place] Oxygen adjusted to patient's actual temperature (BldV) [Partial pressure] 75 mmHg High 35-45 [facility] Comment on above: Order Comment: Speci men Type: VENOUS BLOOD SPECIMENOrdering Facility: [facility] Address: [address] [place] [address] Performed By: #### V ALLMG ####[facility] LABCLIA [id number] [place] [address] [place] Oxygen saturation in Venous blood 96 % High 60-85 [facility] Comment on above: Order Comment: Speci men Type: VENOUS BLOOD SPECIMENOrdering Facility: [facility] Address: [address] [place] [address] Performed By: #### V ALLMG ####[facility] LABCLIA [id number] [place] [address] [place] Oxyhemoglobin (BldV) [Mass fraction] 93 % High 60-85 [facility] Comment on above: Order Comment: Speci men Type: VENOUS BLOOD SPECIMENOrdering Facility: [facility] Address: [address] [place] [address] Performed By: #### V ALLMG ####[facility] LABCLIA [id number] [place] [address] [place] pH (BldV) 7.42 [pH] Normal 7.32-7.42 [facility] Comment on above: Order Comment: Speci men Type: VENOUS BLOOD SPECIMENOrdering Facility: [facility] Address: [address] [place] [address] Performed By: #### V ALLMG ####[facility] LABCLIA [id number] [place] [address] [place] pH adjusted to patient's actual temperature (BldV) 7.42 Normal 7.32-7.42 [facility] Comment on above: Order Comment: Speci men Type: VENOUS BLOOD SPECIMENOrdering Facility: [facility] Address: [address] [place] [address] Performed By: #### V ALLMG ####[facility] LABCLIA [id number] [place] [address] [place] Potassium [Moles/Vol] 3.4 mmol/L Low 3.5-5.0 [facility] Comment on above: Order Comment: Speci men Type: VENOUS BLOOD SPECIMENOrdering Facility: [facility] Address: [address] [place] [address] Performed By: #### V ALLMG ####[facility] LABCLIA [id number] [place] [address] [place] Sodium [Moles/Vol] 134 mmol/L Low 136-144 [facility] Comment on above: Order Comment: Speci men Type: VENOUS BLOOD SPECIMENOrdering Facility: [facility] Address: [address] [place] [address] Performed By: #### V ALLMG ####[facility] LABCLIA [id number] [place] [address] [place] XR ABDOMEN 1V SUPINEon 09-08 XR ABDOMEN 1V SUPINE Normal [facility] CBC W Auto Differential pane l (Bld)on 09-07-2024 Basophils (Bld) [#/Vol] 10*3/uL Normal <0.11 [facility] Comment on above: Order Comment: Speci men Type: BLOOD SPECIMENOrdering Facility: [facility] Address: [address] [place] [address] Performed By: #### 5 7021-8 ####[facility] LABCLIA [id number] [place] [address] [place] Basophils/100 WBC (Bld) 0.4 % Normal [facility] Comment on above: Order Comment: Speci men Type: BLOOD SPECIMENOrdering Facility: [facility] Address: [address] [place] [address] Performed By: #### 5 7021-8 ####[facility] LABCLIA [id number] [place] [address] [place] Differential cell count method Nom (Bld) Auto Normal [facility] Comment on above: Order Comment: Speci men Type: BLOOD SPECIMENOrdering Facility: [facility] Address: [address] [place] [address] Performed By: #### 5 7021-8 ####[facility] LABCLIA [id number] [place] [address] [place] Eosinophils (Bld) [#/Vol] 10*3/uL Normal <0.46 [facility] Comment on above: Order Comment: Speci men Type: BLOOD SPECIMENOrdering Facility: [facility] Address: [address] [place] [address] Performed By: #### 5 7021-8 ####[facility] LABCLIA [id number] [place] [address] [place] Eosinophils/100 WBC (Bld) 0.2 % Normal [facility] Comment on above: Order Comment: Speci men Type: BLOOD SPECIMENOrdering Facility: [facility] Address: [address] [place] [address] Performed By: #### 5 7021-8 ####[facility] LABCLIA [id number] [place] [address] [place] Erythrocyte distribution width (RBC) [Ratio] 14.3 % Normal 11.5-15.0 [facility] Comment on above: Order Comment: Speci men Type: BLOOD SPECIMENOrdering Facility: [facility] Address: [address] [place] [address] Performed By: #### 5 7021-8 ####[facility] LABCLIA [id number] [place] [address] [place] Hematocrit (Bld) [Volume fraction] 35.0 % Low 36.0-46.0 [facility] Comment on above: Order Comment: Speci men Type: BLOOD SPECIMENOrdering Facility: [facility] Address: [address] [place] [address] Performed By: #### 5 7021-8 ####[facility] LABCLIA [id number] [place] [address] [place] Hemoglobin (Bld) [Mass/Vol] 11.7 g/dL Normal 11.5-15.5 [facility] Comment on above: Order Comment: Speci men Type: BLOOD SPECIMENOrdering Facility: [facility] Address: [address] [place] [address] Performed By: #### 5 7021-8 ####[facility] LABCLIA [id number] [place] [address] [place] Immature granulocytes (Bld) [#/Vol] 10*3/uL Normal <0.10 [facility] Comment on above: Order Comment: Speci men Type: BLOOD SPECIMENOrdering Facility: [facility] Address: [address] [place] [address] Performed By: #### 5 7021-8 ####[facility] LABCLIA [id number] [place] [address] [place] Immature granulocytes/100 WBC (Bld) 0.2 % Normal [facility] Comment on above: Order Comment: Speci men Type: BLOOD SPECIMENOrdering Facility: [facility] Address: [address] [place] [address] Performed By: #### 5 7021-8 ####[facility] LABCLIA [id number] [place] [address] [place] Lymphocytes (Bld) [#/Vol] 0.83 10*3/uL Low 1.00-4.00 [facility] Comment on above: Order Comment: Speci men Type: BLOOD SPECIMENOrdering Facility: [facility] Address: [address] [place] [address] Performed By: #### 5 7021-8 ####[facility] LABCLIA [id number] [place] [address] [place] Lymphocytes/100 WBC (Bld) 17.4 % Normal [facility] Comment on above: Order Comment: Speci men Type: BLOOD SPECIMENOrdering Facility: [facility] Address: [address] [place] [address] Performed By: #### 5 7021-8 ####[facility] LABCLIA [id number] [place] [address] [place] MCH (RBC) [Entitic mass] 32.1 pg Normal 26.0-34.0 [facility] Comment on above: Order Comment: Speci men Type: BLOOD SPECIMENOrdering Facility: [facility] Address: [address] [place] [address] Performed By: #### 5 7021-8 ####[facility] LABCLIA [id number] [place] [address] [place] MCHC (RBC) [Mass/Vol] 33.4 g/dL Normal 30.5-36.0 [facility] Comment on above: Order Comment: Speci men Type: BLOOD SPECIMENOrdering Facility: [facility] Address: [address] [place] [address] Performed By: #### 5 7021-8 ####[facility] LABCLIA [id number] [place] [address] [place] MCV (RBC) [Entitic vol] 96.2 fL Normal 80.0-100.0 [facility] [facility] Comment on above: Order Comment: Speci men Type: BLOOD SPECIMENOrdering Facility: [facility] Address: [address] [place] [address] Performed By: #### 5 7021-8 ####[facility] LABIA [id number] [place] [address] [place] Monocytes (Bld) [#/Vol] 0.61 10*3/uL Normal <0.87 [facility] Comment on above: Order Comment: Speci men Type: BLOOD SPECIMENOrdering Facility: [facility] Address: [address] [place] [address] Performed By: #### 5 7021-8 ####[facility] LABIA [id number] [place] [address] [place] Monocytes/100 WBC (Bld) 12.8 % Normal [facility] Comment on above: Order Comment: Speci men Type: BLOOD SPECIMENOrdering Facility: [facility] Address: [address] [place] [address] Performed By: #### 5 7021-8 ####[facility] LABCLIA [id number] [place] [address] [place] Neutrophils (Bld) [#/Vol] 3.30 10*3/uL Normal 1.45-7.50 [facility] Comment on above: Order Comment: Speci men Type: BLOOD SPECIMENOrdering Facility: [facility] Address: [address] [place] [address] Performed By: #### 5 7021-8 ####[facility] LABIA [id number] [place] [address] [place] Neutrophils/100 WBC (Bld) 69.0 % Normal [facility] Comment on above: Order Comment: Speci men Type: BLOOD SPECIMENOrdering Facility: [facility] Address: [address] [place] [address] Performed By: #### 5 7021-8 ####[facility] LABIA [id number] [place] [address] [place] Nucleated RBC (Bld) [#/Vol] 10*3/uL Normal <0.01 [facility] Comment on above: Order Comment: Speci men Type: BLOOD SPECIMENOrdering Facility: [facility] Address: [address] [place] [address] Performed By: #### 5 7021-8 ####[facility] LABIA [id number] [place] [address] [place] Nucleated RBC/100 WBC (Bld) [Ratio] 0.0 /[address] [facility] Comment on above: Order Comment: Speci men Type: BLOOD SPECIMENOrdering Facility: [facility] Address: [address] [place] [address] Performed By: #### 5 7021-8 ####[facility] LABIA [id number] [place] [address] [place] Platelet mean volume (Bld) [Entitic vol] 9.0 fL Normal 9.0-12.7 [facility] Comment on above: Order Comment: Speci men Type: BLOOD SPECIMENOrdering Facility: [facility] Address: [address] [place] [address] Performed By: #### 5 7021-8 ####[facility] LABIA [id number] [place] [address] [place] Platelets (Bld) [#/Vol] 221 10*3/uL Normal 150-400 [facility] Comment on above: Order Comment: Speci men Type: BLOOD SPECIMENOrdering Facility: [facility] Address: [address] [place] [address] Performed By: #### 5 7021-8 ####[facility]ITAL[facility] [id number] [place] [address] [place] RBC (Bld) [#/Vol] 3.64 10*6/uL Low 3.90-5.20 [facility] Comment on above: Order Comment: Speci men Type: BLOOD SPECIMENOrdering Facility: [facility] Address: [address] [place] [address] Performed By: #### 5 7021-8 ####[facility] [id number] [place] [address] [place] WBC (Bld) [#/Vol] 4.78 10*3/uL Normal 3.70-11.00 [facility] Comment on above: Order Comment: Speci men Type: BLOOD SPECIMENOrdering Facility: [facility] Address: [address] [place] [address] Performed By: #### 5 7021-8 ####[facility] [id number] [place] [address] [place] CNOVSPon 09-07-[address] [facility] Cancer Ag125 SerPl-aCncon Cancer Ag 125 Qn 13 [arb'U]/mL Normal <39 [facility] Comment on above: Order Comment: Speci men Type: BLOOD SPECIMENOrdering Facility: [facility] Address: [address] [place] [address] Result Comment: CA 1 25 test methodology used is the Electrochemiluminescence Immunoassay by [employer]. Results obtained with different methods or kits cannot be used interchangeably.The reference interval is based on the 95th percentile of 240 apparently healthy premenopausal and postmenopausal women. At a cutoff value of 65 U/mL, the test sensitivity to distinguish ovarian carcinoma (FIGO stage I to IV) versus benign gynecological disease is 79%, with a specificity of 82%.Reference: Cancer Antigen 125 (CA 125 II) [package insert V 1.0 [place]i]. [employer], [place], [place] (July 2015) Performed By: #### 2 4323-8, 59168-1 ####[facility] LABCLIA [id number] [place] [address] [place] Comprehensive metabolic 2000 panelon 09-07-2024 Albumin [Mass/Vol] 4.7 g/dL Normal 3.9-4.9 [facility] Comment on above: Order Comment: Speci men Type: BLOOD SPECIMENOrdering Facility: [facility] Address: [address] [place] [address] Performed By: #### 2 4323-8, 82220-0 ####[facility] LABIA [id number] [place] [id number] [place] ALP [Catalytic activity/Vol] 83 U/L Normal 34-123 [facility] Comment on above: Order Comment: Speci men Type: BLOOD SPECIMENOrdering Facility: [facility] Address: [address] [place] [address] Performed By: #### 2 4323-8, 34684-9 ####[facility] LABCLIA [id number] [place] [id number] [place] ALT [Catalytic activity/Vol] 15 U/L Normal 7-38 [facility] Comment on above: Order Comment: Speci men Type: BLOOD SPECIMENOrdering Facility: [facility] Address: [address] [place] [address] Performed By: #### 2 4323-8, 84285-2 ####[facility] LABIA [id number] [address] [address] [place] Anion gap [Moles/Vol] 16 mmol/L High 8-15 [facility] Comment on above: Order Comment: Speci men Type: BLOOD SPECIMENOrdering Facility: [facility] Address: [address] [place] [address] Performed By: #### 2 4323-8, 54407-2 ####[facility] LABCLIA [id number] [place] [address] [place] AST [Catalytic activity/Vol] 24 U/L Normal 13-35 [facility] Comment on above: Order Comment: Speci men Type: BLOOD SPECIMENOrdering Facility: [facility] Address: [address] [place] [address] Performed By: #### 2 4323-8, 75031-8 ####[facility] LABCLIA [id number] [place] [address] [place] Bilirubin [Mass/Vol] 0.4 mg/dL Normal 0.2-1.3 [facility] Comment on above: Order Comment: Speci men Type: BLOOD SPECIMENOrdering Facility: [facility] Address: [address] [place] [address] Performed By: #### 2 4323-8, 76760-8 ####[facility] LABCLIA [id number] [place] [address] [place] Calcium [Mass/Vol] 10.0 mg/dL Normal 8.5-10.2 [facility] Comment on above: Order Comment: Speci men Type: BLOOD SPECIMENOrdering Facility: [facility] Address: [address] [place] [address] Performed By: #### 2 4323-8, 21567-1 ####[facility] LABCLIA [id number] [place] [address] [place] Chloride [Moles/Vol] 98 mmol/L Normal 98-107 [facility] Comment on above: Order Comment: Speci men Type: BLOOD SPECIMENOrdering Facility: [facility] Address: [address] [place] [address] Performed By: #### 2 4323-8, 91435-4 ####[facility] LABCLIA [id number] [place] [address] [place] CO2 [Moles/Vol] 25 mmol/L Normal 22-30 [facility] Comment on above: Order Comment: Speci men Type: BLOOD SPECIMENOrdering Facility: [facility] Address: [address] [place] [address] Performed By: #### 2 4323-8, 31553-8 ####[facility] LABCLIA [id number] [place] [address] [place] Creatinine [Mass/Vol] 1.05 mg/dL High 0.58-0.96 [facility] Comment on above: Order Comment: Speci men Type: BLOOD SPECIMENOrdering Facility: [facility] Address: [address] [place] [address] Performed By: #### 2 4323-8, 32825-0 ####[facility] LABCLIA [id number] [address] [place] Creatinine and Glomerular filtration rate.predicted panel (S/P/Bld) 57 mL/min/1.73m??? Low >=60 [facility] Comment on above: Order Comment: Speci men Type: BLOOD SPECIMENOrdering Facility: [facility] Address: [address] [place] [address] Result Comment: Ethel mated Glomerular Filtration Rate (eGFR) is calculated using the 2020 CKD-EPI creatinine equation. This equation utilizes serum creatinine, sex, and age as parameters. The creatinine assay has traceable calibration to isotope dilution-mass spectrometry. Refer to KDIGO guidelines for clinical interpretation. In patients with unstable renal function, e.g. those with acute kidney injury, the eGFR may not accurately reflect actual GFR. Performed By: #### 2 4323-8, 20401-2 ####[facility] LABCLIA [id number] [address] [address] [place] Glucose [Mass/Vol] 96 mg/dL Normal 74-99 [facility] Comment on above: Order Comment: Speci men Type: BLOOD SPECIMENOrdering Facility: [facility] Address: [address] [place] [address] Result Comment: The [place] Diabetes Association (ADA) provides guidance for cutoff values for fasting glucose and random glucose. The ADA defines fasting as no caloric intake for at least 8 hours. Fasting plasma glucose results between 100 to 125 mg/dL indicate increased risk for diabetes (prediabetes).Fasting plasma glucose results greater than or equal to 126 mg/dL meet the criteria for diagnosis of diabetes. In the absence of unequivocal hyperglycemia, results should be confirmed by repeat testing. In a patient with classic symptoms of hyperglycemia or hyperglycemic crisis, random plasma glucose results greater than or equal to 200 mg/dL meet the criteria for diagnosis of diabetes.Reference: Standards of Medical Care in Diabetes 2016, [place] [employer]. Diabetes Care. 2016.39(Suppl 1). Performed By: #### 2 4323-8, 53462-0 ####[facility] LABIA [id number] [place] [address] [place] Potassium [Moles/Vol] 3.8 mmol/L Normal 3.7-5.1 [facility] Comment on above: Order Comment: Speci men Type: BLOOD SPECIMENOrdering Facility: [facility] Address: [address] [place] [address] Performed By: #### 2 4323-8, 96837-9 ####[facility] LABIA [id number] [place] [address] [place] Protein [Mass/Vol] 7.2 g/dL Normal 6.3-8.0 [facility] Comment on above: Order Comment: Speci men Type: BLOOD SPECIMENOrdering Facility: [facility] Address: [address] [place] [address] Performed By: #### 2 4323-8, 06089-1 ####[facility] LABCLIA [id number] [place] [id number] [place] Sodium [Moles/Vol] 139 mmol/L Normal 136-144 [facility] Comment on above: Order Comment: Cheng cooley Type: BLOOD SPECIMENOrdering Facility: [facility] Address: [address] [place] [address] Performed By: #### 2 4323-8, 50477-5 ####[facility] LABIA [id number] [place] [address] [place] Urea nitrogen [Mass/Vol] 22 mg/dL High 7-21 [facility] Comment on above: Order Comment: Bekai men Type: BLOOD SPECIMENOrdering Facility: [facility] Address: [address] [place] [address] Performed By: #### 2 4323-8, 34557-6 ####[facility] LABIA [id number] [place] [address] [place] HISTORY PHYSICALon HISTORY PHYSICAL Normal [facility] PT panel Coag (PPP)on 2023 INR Coag (PPP) [Relative time] 1.0 {INR} Normal 0.9-1.3 [facility] Comment on above: Order Comment: Cheng cooley Type: BLOOD SPECIMENOrdering Facility: [facility] Address: [address] [place] [address] Result Comment: Ene min K Antagonist (VKA) Therapeutic Range: INR 2 to 3 (Target INR of 2.5)Note: For patients treated with VKA drugs, such as warfarin, the [place] [employer] 2012 Guideline recommends a therapeutic INR range of 2 to 3 (target INR of 2.5). This recommendation includes high-risk patients with antiphospholipid syndrome with previous arterial or venous thromboembolism, current-generation mechanical or bioprosthetic aortic heart valve replacement.Note: Patients with mechanical aortic valve replacement and additional risk factors for thromboembolic events (atrial fibrillation, previous thromboembolism, LV dysfunction, hypercoagulable conditions) or an older generation mechanical AVR (i.e., ball in-Cage) or any mechanical MVR should have a INR therapeutic range of 2.5 to 3.5 (target INR of 3).Jonathan GH, et al. Chest 2012, 141:7S-47SNishimura RA, et al. [facility] 2017, 70: 252-289 Performed By: #### 1 4979-9, 32564-6 ####[facility] LABCLIA [id number] [place] [address] [place] PT Coag (PPP) [Time] 10.9 s Normal 9.7-13.0 [facility] Comment on above: Order Comment: Speci men Type: BLOOD SPECIMENOrdering Facility: [facility] Address: [address] [place] [address] Performed By: #### 1 4979-9, 77158-6 ####[facility] LABCLIA [id number] [address] STATES OF [facility] TYPE AND SCREEN,30 DAYon ABO A Normal [facility] Comment on above: Order Comment: Speci men Type: BLOOD SPECIMENOrdering Facility: [facility] Address: [address] [place] [address] Performed By: #### T SCR30 ####[facility] BLOOD BANKCLIA [id number] [address] [place] Rh Nom (Bld) Positive Normal [facility] Comment on above: Order Comment: Speci men Type: BLOOD SPECIMENOrdering Facility: [facility] Address: [address] [place] [address] Performed By: #### T SCR30 ####[facility] BLOOD BANKCLIA [id number] [address] [place] aPTT PPPon 09-07-2024 aPTT Coag (PPP) [Time] 23.4 s Normal 23.0-32.4 [facility] Comment on above: Order Comment: Speci men Type: BLOOD SPECIMENOrdering Facility: [facility] Address: [address] [place] [address] Performed By: #### 1 4979-9, 35409-2 ####[facility] LABCLIA [id number] [address] [id number] [address] [place] CNPNon 09-03-[address] [facility] CNPNon 09-01-[address] [facility] CT ABD/PEL W IVCONon 024 CT ABD/PEL W IVCON [facility] CHEST W IVCONon 4 CT CHEST W IVCON Normal [facility] CNPNon 08-19-2024 CNPN Telephone (GYNML) SAL BAUTISTA ([id number]) 1950 F Date Time Provider Department 08/19/24 MATTHEW MORELAND [facility] During your visit today, we recorded the following information about you: Matthew Moreladn RN 08/19/2024 4:27 PM Signed IRB#: [id number] Study name: G 3084: A Phase 2, Open-Label, Randomized, Non-Comparative Clinical Trial of ADP-[id number] Monotherapy and in Combination With Nivolumab in Subjects With Recurrent Ovarian Cancers PI: Dr. Fredis Buckner Date 08/19/2024 Left voice message for patient to call research back. This study was closed to enrollment this morning and is therefore no longer an option for participation. Will notify patient of this information once she returns research call. CECILIA Sylvester Barbara, RN 08/20/2024 10:25 AM Signed RB#: [id number] Study name: G 3084: A Phase 2, Open-Label, Randomized, Non-Comparative Clinical Trial of ADP-[id number] Monotherapy and in Combination With Nivolumab in Subjects With Recurrent Ovarian Cancers PI: Dr. Fredis Buckner Date 08/20/2024 Patient returned call this morning. Informed patient that the [facility] clinical trial closed enrollment yesterday morning. Therefore, this study would no longer be an option for participation. Also, informed patient that she may be a candidate for the GOG 3076 (previously discussed with patient) study in the future. Discussed that for this study she would need at least 3 prior lines of systemic treatment as well as have received Avastin in one of those prior lines. (currently is receiving line 1). Patient stated understanding and was appreciative of the information. Will continue to monitor patient for potential clinical trial eligibility in the future. Matthew Moreland RN Allergies As of Date: 08/19/2024 (No Known Allergies) Date Reviewed: 08/12/2024 Reviewed by: Jacy Senior RN - Fully Assessed Reason for Visit: Research [293] Prescriptions as of 08/20/2024 - iv contrast (will be provided with radiology test) CT Chest W -Inject, intravenously, once for 1 dose.No IV access, insert saline lock prior to the beginning of sedation, infusion, injection of imaging exam. Discontinue saline lock post exam. If Pt. has a central line or IVAD, may access for administration according to line specific nursing protocol. Once exam is complete flush line and de-access according to line specific nursing protocol in the CT contrast administration guidelines link. - iv contrast (will be provided with radiology test) CT ABD/PEL -Inject, intravenously, once for 1 dose.No IV access, insert saline lock prior to the beginning of sedation, infusion, injection of imaging exam. Discontinue saline lock post exam. If Pt. has a central line or IVAD, may access for administration according to line specific nursing protocol. Once exam is complete flush line and de-access according to line specific nursing protocol in the CT contrast administration guidelines link. - enteric contrast (will be provided with radiology test) For CT ABD/PEL W IVCON Routine order Administer, As Directed One Time Only, via Oral, Rectal, both Oral and Rectal, Enteric Tube, Stoma or Indwelling Catheter, Enteric Contrast as designated per enteric contrast guidelines - dexAMETHasone (DECADRON) 4 mg tablet Take 5 tablets 12 and 6 hours prior to chemotherapy treatment. - ondansetron orally disintegrating (ZOFRAN ODT) 8 mg disintegrating tablet Take 1 tablet by mouth every 8 hours as needed for nausea/vomiting. - prochlorperazine (COMPAZINE) 10 mg tablet Take 1 tablet by mouth every 6 hours as needed. - acetaminophen (TYLENOL EXTRA STRENGTH) 500 mg tablet Take 1,000 mg by mouth every 6 hours as needed for pain. - nutritional supplement ([employer] STANDARD 1.4) 0.06 G - 1.4 Kcal/mL oral liquid Take 325 mL by mouth three times a day. - dicyclomine (BENTYL) 10 mg capsule Take 1 or 2 before meals, as needed. - alendronate (FOSAMAX) 70 mg tablet Take 1 tablet by mouth one time a week. Take with a full glass of water, on an empty stomach; do NOT lie down for 30minutes. - Cholecalciferol, Vitamin D3, 50 mcg (2,000 unit) cap Take 1 capsule by mouth once daily. - Loperamide HCl (ANTI-DIARRHEAL) 2 mg tab Take 1 tablet by mouth as needed. Problem List As Of Date 08/19/2024 Noted Resolved Sebaceous cyst [L72.3] 07/05/2008 11/16/2015 Osteopenia [M85.80] 07/13/2012 Irritable bowel syndrome with diarrhea [K58.0] 11/16/2015 Generalized abdominal or pelvic swelling or mas*03/15/2024 Inadequate nutrition [E63.9] 03/17/2024 Other ascites [R18.8] 03/17/2024 Severe protein-calorie malnutrition (HCC) [E43] 03/18/2024 Pelvic mass in female [R19.00] 04/09/2024 High grade ovarian cancer (HCC) [C56.9] 04/22/2024 Encounter Status:Closed by MATTHEW MORELAND RN on 08/19/24 Normal [facility] CBC W Auto Differential pane l (Bld)on 08-12-2024 Anisocytosis Ql (Bld) Present Normal [facility] Comment on above: Order Comment: Speci men Type: BLOOD SPECIMENOrdering Facility: [facility] Address: [address] [place] [address] Performed By: #### 5 7021-8 ####[facility] PATRICIO MEYERS [id number] [address] LABORATORYCLIA [id number] [place] [address] [place] Basophils (Bld) [#/Vol] 0.00 10*3/uL Normal <0.11 [facility] Comment on above: Order Comment: Speci men Type: BLOOD SPECIMENOrdering Facility: [facility] Address: [address] [place] [address] Performed By: #### 5 7021-8 ####[facility] [id number] [address] LABORATORYCLIA [id number] [place] [address] [place] Basophils/100 WBC (Bld) 0.0 % Normal [facility] Comment on above: Order Comment: Speci men Type: BLOOD SPECIMENOrdering Facility: [facility] Address: [address] [place] [address] Performed By: #### 5 7021-8 ####[facility] [id number] [address] LABORATORYCLIA [id number] [place] [address] [place] Dacrocytes LM Ql (Bld) Few Normal [facility] Comment on above: Order Comment: Speci men Type: BLOOD SPECIMENOrdering Facility: [facility] Address: [address] [place] [address] Performed By: #### 5 7021-8 ####[facility] [id number] [address] LABORATORYCLIA [id number] [place] [address] [place] Differential cell count method Nom (Bld) Manual Normal [facility] Comment on above: Order Comment: Speci men Type: BLOOD SPECIMENOrdering Facility: [facility] Address: [address] [place] [address] Performed By: #### 5 7021-8 ####[facility] CUELLARTOWNCLIA [id number] [address] LABORATORYCLIA [id number] [place] [address] [place] Eosinophils (Bld) [#/Vol] 0.03 10*3/uL Normal <0.46 [facility] Comment on above: Order Comment: Speci men Type: BLOOD SPECIMENOrdering Facility: [facility] Address: [address] [place] [address] Performed By: #### 5 7021-8 ####[facility] SUNDARWNCLIA [id number] [address] LABORATORYCLIA [id number] [place] [address] [place] Eosinophils/100 WBC (Bld) 1.0 % Normal [facility] Comment on above: Order Comment: Speci men Type: BLOOD SPECIMENOrdering Facility: [facility] Address: [address] [place] [address] Performed By: #### 5 7021-8 ####[facility] SUNDARWNCLIA [id number] [address] LABORATORYCLIA [id number] [place] [address] [place] Erythrocyte distribution width (RBC) [Ratio] 15.5 % High 11.5-15.0 [facility] [facility] Comment on above: Order Comment: Speci men Type: BLOOD SPECIMENOrdering Facility: [facility] Address: [address] [place] [address] Performed By: #### 5 7021-8 ####[facility] MILLWNCLIA [id number] [address] LABORATORYCLIA [id number] [place] [address] [place] Hematocrit (Bld) [Volume fraction] 32.9 % Low 36.0-46.0 [facility] Comment on above: Order Comment: Speci men Type: BLOOD SPECIMENOrdering Facility: [facility] Address: [address] [place] [address] Performed By: #### 5 7021-8 ####[facility]IT[facility] [id number] [address] LABORATORYIA [id number] [place] [address] [place] Hemoglobin (Bld) [Mass/Vol] 11.0 g/dL Low 11.5-15.5 [facility] Comment on above: Order Comment: Speci men Type: BLOOD SPECIMENOrdering Facility: [facility] Address: [address] [place] [address] Performed By: #### 5 7021-8 ####[facility]ALLIA [id number] [address] LABORATORYCLIA [id number] [place] [address] [place] Lymphocytes (Bld) [#/Vol] 0.58 10*3/uL Low 1.00-4.00 [facility] Comment on above: Order Comment: Speci men Type: BLOOD SPECIMENOrdering Facility: [facility] Address: [address] [place] [address] Performed By: #### 5 7021-8 ####[facility] PARKNCLIA [id number] [address] LABORATORYIA [id number] [place] [address] [place] Lymphocytes/100 WBC (Bld) 20.0 % Normal [facility] Comment on above: Order Comment: Speci men Type: BLOOD SPECIMENOrdering Facility: [facility] Address: [address] [place] [address] Performed By: #### 5 7021-8 ####[facility] PARKNCLIA [id number] [address] LABORATORYCLIA [id number] [place] [address] [place] MCH (RBC) [Entitic mass] 31.0 pg Normal 26.0-34.0 [facility] Comment on above: Order Comment: Speci men Type: BLOOD SPECIMENOrdering Facility: [facility] Address: [address] [place] [address] Performed By: #### 5 7021-8 ####[facility] [id number] [address] LABORATORYCLIA [id number] [place] [address] [place] MCHC (RBC) [Mass/Vol] 33.4 g/dL Normal 30.5-36.0 [facility] Comment on above: Order Comment: Speci men Type: BLOOD SPECIMENOrdering Facility: [facility] Address: [address] [place] [address] Performed By: #### 5 7021-8 ####[facility] [id number] [address] LABORATORYIA [id number] [place] [address] [place] MCV (RBC) [Entitic vol] 92.7 fL Normal 80.0-100.0 [facility] Comment on above: Order Comment: Speci men Type: BLOOD SPECIMENOrdering Facility: [facility] Address: [address] [place] [address] Performed By: #### 5 7021-8 ####[facility] MILLTOWNCLIA [id number] [address] LABORATORYCLIA [id number] [place] [address] [place] Monocytes (Bld) [#/Vol] 0.00 10*3/uL Normal <0.87 [facility] Comment on above: Order Comment: Speci men Type: BLOOD SPECIMENOrdering Facility: [facility] Address: [address] [place] [address] Performed By: #### 5 7021-8 ####[facility] MILLTOWNCLIA [id number] [address] LABORATORYCLIA [id number] [place] [address] [place] Monocytes/100 WBC (Bld) 0.0 % Normal [facility] Comment on above: Order Comment: Speci men Type: BLOOD SPECIMENOrdering Facility: [facility] Address: [facility] [place] [address] Performed By: #### 5 7021-8 ####[facility]PITALTOWNCLIA [id number] [address] LABORATORYCLIA [id number] [place] [address] [place] MYELO% 1.0 % Normal [facility] Comment on above: Order Comment: Speci men Type: BLOOD SPECIMENOrdering Facility: [facility] Address: [facility] [place] [id number] Performed By: #### 5 7021-8 ####[facility] MILLTOWNCLIA [id number] [address] LABORATORYCLIA [id number] [place] [address] [place] Neutrophils (Bld) [#/Vol] 2.28 10*3/uL Normal 1.45-7.50 [facility] Comment on above: Order Comment: Speci men Type: BLOOD SPECIMENOrdering Facility: [facility] Address: [address] [place] [address] Performed By: #### 5 7021-8 ####[facility]PITALTOWNCLIA [id number] [address] LABORATORYCLIA [id number] [place] [address] [place] Neutrophils/100 WBC (Bld) 78.0 % Normal [facility] Comment on above: Order Comment: Speci men Type: BLOOD SPECIMENOrdering Facility: [facility] Address: [address] [place] [address] Performed By: #### 5 7021-8 ####[facility]OSPITALWMTLIA [id number] [address] LABORATORYCLIA [id number] [place] [address] [place] Nucleated RBC (Bld) [#/Vol] 0.03 10*3/uL High <0.01 [facility] Comment on above: Order Comment: Speci men Type: BLOOD SPECIMENOrdering Facility: [facility] Address: [address] [place] [address] Performed By: #### 5 7021-8 ####[facility] PARKNCLIA [id number] [address] LABORATORYCLIA [id number] [place] [address] [place] Nucleated RBC/100 WBC (Bld) [Ratio] 1.0 /[address] [facility] Comment on above: Order Comment: Speci men Type: BLOOD SPECIMENOrdering Facility: [facility] Address: [address] [place] [address] Performed By: #### 5 7021-8 ####[facility] MILLALEXANDREANCLIA [id number] [address] LABORATORYCLIA [id number] [place] [address] [place] Ovalocytes LM Ql (Bld) Few Normal [facility] Comment on above: Order Comment: Speci men Type: BLOOD SPECIMENOrdering Facility: [facility] Address: [address] [place] [address] Performed By: #### 5 7021-8 ####[facility] PARKIGGYLIA [id number] [address] LABORATORYCLIA [id number] [place] [address] [place] Pappenheimer bodies LM Ql (Bld) Occasional Normal [facility] Comment on above: Order Comment: Speci men Type: BLOOD SPECIMENOrdering Facility: [facility] Address: [address] [place] [address] Performed By: #### 5 7021-8 ####[facility] PARKNCLIA [id number] [address] LABORATORYCLIA [id number] [place] [address] [place] Platelet mean volume (Bld) [Entitic vol] 8.4 fL Low 9.0-12.7 [facility] Comment on above: Order Comment: Speci men Type: BLOOD SPECIMENOrdering Facility: [facility] Address: [address] [place], [place] [address] Performed By: #### 5 7021-8 ####[facility] HOSPITALWNCLIA [id number] [address] LABORATORYCLIA [id number] [place] [address] [place] Platelets (Bld) [#/Vol] 217 10*3/uL Normal 150-400 [facility] Comment on above: Order Comment: Speci men Type: BLOOD SPECIMENOrdering Facility: [facility] Address: [address] [place] [address] Performed By: #### 5 7021-8 ####[facility] MILLTOWNCLIA [id number] [address] LABORATORYCLIA [id number] [place] [address] [place] Platelets Estimate (Bld) [#/Vol] Adequate Normal [facility] Comment on above: Order Comment: Speci men Type: BLOOD SPECIMENOrdering Facility: [facility] Address: [address] [place] [address] Performed By: #### 5 7021-8 ####[facility]IA [id number] [address] LABORATORYCLIA [id number] [place] [address] [place] Polychromasia LM Ql (Bld) Slight Normal [facility] Comment on above: Order Comment: Speci men Type: BLOOD SPECIMENOrdering Facility: [facility] Address: [address] [place] [address] Performed By: #### 5 7021-8 ####[facility]ITALLIA [id number] [address] LABORATORYCLIA [id number] [place] [address] [place] RBC (Bld) [#/Vol] 3.55 10*6/uL Low 3.90-5.20 [facility] Comment on above: Order Comment: Speci men Type: BLOOD SPECIMENOrdering Facility: [facility] Address: [address] [place] [address] Performed By: #### 5 7021-8 ####[facility] MILLBEVERLYLIA [id number] [address] LABORATORYCLIA [id number] [place] [address] [place] RED CELL MORPH Reviewed: see result s of individual morphologies Normal [facility] Comment on above: Order Comment: Speci men Type: BLOOD SPECIMENOrdering Facility: [facility] Address: [address] [place] [address] Performed By: #### 5 7021-8 ####[facility] PARKIGGYLIA [id number] [address] LABORATORYCLIA [id number] [place] [address] [place] WBC (Bld) [#/Vol] 2.92 10*3/uL Low 3.70-11.00 [facility] Comment on above: Order Comment: Speci men Type: BLOOD SPECIMENOrdering Facility: [facility] Address: [address] [place] [address] Performed By: #### 5 7021-8 ####[facility] PARKIGGYLIA [id number] [address] LABORATORYCLIA [id number] [place] [address] [place] WBC Left Shift Ql (Bld) Present Normal [facility] Comment on above: Order Comment: Speci men Type: BLOOD SPECIMENOrdering Facility: [facility] Address: [facility] [place] [id number] Performed By: #### 5 7021-8 ####[facility] MILLTOWNCLIA [id number] [address] LABORATORYCLIA [id number] [place] [address] [place] CBC W Auto Differential pane l (Bld)on 08-11-2024 Basophils (Bld) [#/Vol] 10*3/uL Normal <0.11 [facility] Comment on above: Order Comment: Speci men Type: BLOOD SPECIMENOrdering Facility: [facility] Address: [address] [place] [address] Performed By: #### 5 7021-8 ####[facility] MILLWMTLIA [id number] [place] [address] [place] Basophils/100 WBC (Bld) 1.0 % Normal [facility] Comment on above: Order Comment: Speci men Type: BLOOD SPECIMENOrdering Facility: [facility] Address: [address] [place] [address] Performed By: #### 5 7021-8 ####[facility] HOSPITALA [id number] [place] [address] [place] Differential cell count method Nom (Bld) Auto Normal [facility] Comment on above: Order Comment: Speci men Type: BLOOD SPECIMENOrdering Facility: [facility] Address: [address] [place] [address] Performed By: #### 5 7021-8 ####[facility]ITALLIA [id number] [place] [address] [place] Eosinophils (Bld) [#/Vol] 0.03 10*3/uL Normal <0.46 [facility] Comment on above: Order Comment: Speci men Type: BLOOD SPECIMENOrdering Facility: [facility] Address: [address] [place] [address] Performed By: #### 5 7021-8 ####[facility] PARKNCLIA [id number] [place] [address] [place] Eosinophils/100 WBC (Bld) 1.4 % Normal [facility] Comment on above: Order Comment: Speci men Type: BLOOD SPECIMENOrdering Facility: [facility] Address: [address] [place] [address] Performed By: #### 5 7021-8 ####[facility] ALISARomeliaNCOPALA [id number] [place] [address] [place] Erythrocyte distribution width (RBC) [Ratio] 15.9 % High 11.5-15.0 [facility] Comment on above: Order Comment: Speci men Type: BLOOD SPECIMENOrdering Facility: [facility] Address: [address] [place] [address] Performed By: #### 5 7021-8 ####[facility] PARKNCLIA [id number] [place] [address] [place] Hematocrit (Bld) [Volume fraction] 33.4 % Low 36.0-46.0 [facility] Comment on above: Order Comment: Speci men Type: BLOOD SPECIMENOrdering Facility: [facility] Address: [address] [place] [address] Performed By: #### 5 7021-8 ####[facility] PARKNCLIA [id number] [place] [address] [place] Hemoglobin (Bld) [Mass/Vol] 11.0 g/dL Low 11.5-15.5 [facility] Comment on above: Order Comment: Speci men Type: BLOOD SPECIMENOrdering Facility: [facility] Address: [address] [place] [address] Performed By: #### 5 7021-8 ####[facility] PARKNCLIA [id number] [place] [address] [place] Immature granulocytes (Bld) [#/Vol] 10*3/uL Normal <0.10 [facility] Comment on above: Order Comment: Speci men Type: BLOOD SPECIMENOrdering Facility: [facility] Address: [address] [place] [address] Performed By: #### 5 7021-8 ####[facility] ALISAGREENFIELDIGGYLIA [id number] [address] [place] [facility] Immature granulocytes/100 WBC (Bld) 0.5 % Normal [facility] Comment on above: Order Comment: Speci men Type: BLOOD SPECIMENOrdering Facility: [facility] Address: [address] [place] [address] Performed By: #### 5 7021-8 ####[facility]ITALLIA [id number] [place] [address] [place] Lymphocytes (Bld) [#/Vol] 0.76 10*3/uL Low 1.00-4.00 [facility] Comment on above: Order Comment: Speci men Type: BLOOD SPECIMENOrdering Facility: [facility] Address: [address] [place] [address] Performed By: #### 5 7021-8 ####[facility] H[facility]PITALA [id number] [place] [address] [place] Lymphocytes/100 WBC (Bld) 36.4 % Normal [facility] Comment on above: Order Comment: Speci men Type: BLOOD SPECIMENOrdering Facility: [facility] Address: [address] [place] [address] Performed By: #### 5 7021-8 ####[facility]ITALLIA [id number] [place] [address] [place] MCH (RBC) [Entitic mass] 30.7 pg Normal 26.0-34.0 [facility] Comment on above: Order Comment: Speci men Type: BLOOD SPECIMENOrdering Facility: [facility] Address: [address] [place] [address] Performed By: #### 5 7021-8 ####[facility] [id number] [place] [address] [place] MCHC (RBC) [Mass/Vol] 32.9 g/dL Normal 30.5-36.0 [facility] Comment on above: Order Comment: Speci men Type: BLOOD SPECIMENOrdering Facility: [facility] Address: [address] [place] [address] Performed By: #### 5 7021-8 ####[facility] ALISAGREENFIELDNCOPALA [id number] [place] [address] [place] MCV (RBC) [Entitic vol] 93.3 fL Normal 80.0-100.0 [facility] Comment on above: Order Comment: Speci men Type: BLOOD SPECIMENOrdering Facility: [facility] Address: [address] [place] [address] Performed By: #### 5 7021-8 ####[facility] PARKNCOPALA [id number] [place] [address] [place] Monocytes (Bld) [#/Vol] 0.51 10*3/uL Normal <0.87 [facility] Comment on above: Order Comment: Speci men Type: BLOOD SPECIMENOrdering Facility: [facility] Address: [address] [place] [address] Performed By: #### 5 7021-8 ####[facility] PARKNCLIA [id number] [place] [address] [place] Monocytes/100 WBC (Bld) 24.4 % Normal [facility] Comment on above: Order Comment: Speci men Type: BLOOD SPECIMENOrdering Facility: [facility] Address: [address] [place] [address] Performed By: #### 5 7021-8 ####[facility] PARKNCLIA [id number] [place] [address] [place] Neutrophils (Bld) [#/Vol] 0.76 10*3/uL Low 1.45-7.50 [facility] Comment on above: Order Comment: Speci men Type: BLOOD SPECIMENOrdering Facility: [facility] Address: [address] [place] [address] Performed By: #### 5 7021-8 ####[facility] ALISANEALA [id number] [place] [address] [place] Neutrophils/100 WBC (Bld) 36.3 % Normal [facility] Comment on above: Order Comment: Speci men Type: BLOOD SPECIMENOrdering Facility: [facility] Address: [address] [place] [address] Performed By: #### 5 7021-8 ####[facility] [id number] [place] [address] [place] Nucleated RBC (Bld) [#/Vol] 10*3/uL Normal <0.01 [facility] Comment on above: Order Comment: Speci men Type: BLOOD SPECIMENOrdering Facility: [facility] Address: [address] [place] [address] Performed By: #### 5 7021-8 ####[facility] [id number] [place] [address] [place] Nucleated RBC/100 WBC (Bld) [Ratio] 0.0 /[address] [facility] Comment on above: Order Comment: Speci men Type: BLOOD SPECIMENOrdering Facility: [facility] Address: [address] [place] [address] Performed By: #### 5 7021-8 ####[facility]ITALA [id number] [place] [address] [place] Platelet mean volume (Bld) [Entitic vol] 8.4 fL Low 9.0-12.7 [facility] Comment on above: Order Comment: Speci men Type: BLOOD SPECIMENOrdering Facility: [facility] Address: [address] [place] [address] Performed By: #### 5 7021-8 ####[facility] ALISAGREENFIELDNCLIA [id number] [place] [address] [place] Platelets (Bld) [#/Vol] 211 10*3/uL Normal 150-400 [facility] Comment on above: Order Comment: Speci men Type: BLOOD SPECIMENOrdering Facility: [facility] Address: [address] [place], [place] [address] Performed By: #### 5 7021-8 ####[facility] PARKNCLIA [id number] [place] [address] [place] RBC (Bld) [#/Vol] 3.58 10*6/uL Low 3.90-5.20 [facility] Comment on above: Order Comment: Speci men Type: BLOOD SPECIMENOrdering Facility: [facility] Address: [address] [place] [address] Performed By: #### 5 7021-8 ####[facility] PARKNCLIA [id number] [place] [address] [place] WBC (Bld) [#/Vol] 2.09 10*3/uL Low 3.70-11.00 [facility] Comment on above: Order Comment: Speci men Type: BLOOD SPECIMENOrdering Facility: [facility] Address: [address] [place] [address] Performed By: #### 5 7021-8 ####[facility] PARKNCLIA [id number] [place] [address] [place] CNOVSPon 08-11-[address] [facility] CNPTOUTREACHon 08-11-[address] [facility] Cancer Ag125 SerPl-aCncon Cancer Ag 125 Qn 20 [arb'U]/mL Normal <39 [facility] Comment on above: Order Comment: Speci men Type: BLOOD SPECIMENOrdering Facility: [facility] Address: [address] [place] [address] Result Comment: CA 1 25 test methodology used is the Electrochemiluminescence Immunoassay by [employer]. Results obtained with different methods or kits cannot be used interchangeably.The reference interval is based on the 95th percentile of 240 apparently healthy premenopausal and postmenopausal women. At a cutoff value of 65 U/mL, the test sensitivity to distinguish ovarian carcinoma (FIGO stage I to IV) versus benign gynecological disease is 79%, with a specificity of 82%.Reference: Cancer Antigen 125 (CA 125 II) [package insert V 1.0 [place]i]. [employer], [place], [place] (July 2015) Performed By: #### 1 0334-1 ####[facility] LABCLIA [id number] [place] [address] [place] Comprehensive metabolic 2000 panelon 08-11-2024 Albumin [Mass/Vol] 4.4 g/dL Normal 3.9-4.9 [facility] Comment on above: Order Comment: [facility] Type: BLOOD SPECIMENOrdering Facility: [facility] Address: [address] [place] [address] Performed By: #### 1 9123-9, 58295-7 ####[facility] [id number] [place] [address] [place] ALP [Catalytic activity/Vol] 78 U/L Normal 34-123 [facility] Comment on above: Order Comment: Speci men Type: BLOOD SPECIMENOrdering Facility: [facility] Address: [address] [place] [address] Performed By: #### 1 9123-9, 61406-6 ####[facility] [id number] [place] [address] [place] ALT [Catalytic activity/Vol] 17 U/L Normal 7-38 [facility] Comment on above: Order Comment: Speci men Type: BLOOD SPECIMENOrdering Facility: [facility] Address: [address] [place] [address] Performed By: #### 1 9123-9, 29139-5 ####[facility] PATRICIO MILLTOWNCLIA [id number] [place] [address] [place] Anion gap [Moles/Vol] 15 mmol/L Normal 8-15 [facility] Comment on above: Order Comment: Speci men Type: BLOOD SPECIMENOrdering Facility: [facility] Address: [address] [place] [address] Performed By: #### 1 9123-9, 08683-9 ####[facility] MILLTOWNCLIA [id number] [place] [address] [place] AST [Catalytic activity/Vol] 18 U/L Normal 13-35 [facility] Comment on above: Order Comment: Speci men Type: BLOOD SPECIMENOrdering Facility: [facility] Address: [address] [place] [address] Performed By: #### 1 9123-9, 62577-1 ####[facility] MILLTOWNCLIA [id number] [place] [address] [place] Bilirubin [Mass/Vol] mg/dL Low 0.2-1.3 [facility] Comment on above: Order Comment: Speci men Type: BLOOD SPECIMENOrdering Facility: [facility] Address: [address] [place] [address] Performed By: #### 1 9123-9, 69126-9 ####[facility] MILLTOWNCLIA [id number] [place] [address] [place] Calcium [Mass/Vol] 9.5 mg/dL Normal 8.5-10.2 [facility] Comment on above: Order Comment: Speci men Type: BLOOD SPECIMENOrdering Facility: [facility] Address: [address] [place] [address] Performed By: #### 1 9123-9, 08299-2 ####[facility] [id number] [place] [address] [place] Chloride [Moles/Vol] 100 mmol/L Normal 98-107 [facility] Comment on above: Order Comment: Speci men Type: BLOOD SPECIMENOrdering Facility: [facility] Address: [address] [place] [address] Performed By: #### 1 9123-9, 33734-8 ####[facility] [id number] [place] [address] [place] CO2 [Moles/Vol] 25 mmol/L Normal 22-30 [facility] Comment on above: Order Comment: Speci men Type: BLOOD SPECIMENOrdering Facility: [facility] Address: [address] [place] [address] Performed By: #### 1 9123-9, 27274-1 ####[facility] [id number] [place] [address] [place] Creatinine [Mass/Vol] 0.82 mg/dL Normal 0.58-0.96 [facility] Comment on above: Order Comment: Speci men Type: BLOOD SPECIMENOrdering Facility: [facility] Address: [address] [place] [address] Performed By: #### 1 9123-9, 66538-4 ####[facility] [id number] [address] OF [facility] Creatinine and Glomerular filtration rate.predicted panel (S/P/Bld) 76 mL/min/1.73m??? Normal >=60 [facility] Comment on above: Order Comment: Speci men Type: BLOOD SPECIMENOrdering Facility: [facility] Address: [address] [place] [address] Result Comment: Ethel mated Glomerular Filtration Rate (eGFR) is calculated using the 2020 CKD-EPI creatinine equation. This equation utilizes serum creatinine, sex, and age as parameters. The creatinine assay has traceable calibration to isotope dilution-mass spectrometry. Refer to KDIGO guidelines for clinical interpretation. In patients with unstable renal function, e.g. those with acute kidney injury, the eGFR may not accurately reflect actual GFR. Performed By: #### 1 9123-9, ####[facility] PATRICIO ALISAEDGARWNCLIA [id number] [place] [address] [place] Glucose [Mass/Vol] 94 mg/dL Normal 74-99 [facility] Comment on above: Order Comment: Cheng cooley Type: BLOOD SPECIMENOrdering Facility: [facility] Address: [address] [id number] Result Comment: The [place] Diabetes Association (ADA) provides guidance for cutoff values for fasting glucose and random glucose. The ADA defines fasting as no caloric intake for at least 8 hours. Fasting plasma glucose results between 100 to 125 mg/dL indicate increased risk for diabetes (prediabetes).Fasting plasma glucose results greater than or equal to 126 mg/dL meet the criteria for diagnosis of diabetes. In the absence of unequivocal hyperglycemia, results should be confirmed by repeat testing. In a patient with classic symptoms of hyperglycemia or hyperglycemic crisis, random plasma glucose results greater than or equal to 200 mg/dL meet the criteria for diagnosis of diabetes.Reference: Standards of Medical Care in Diabetes 2016, [place] [employer] Association. Diabetes Care. 2016.39(Suppl 1). Performed By: #### 1 9123-9, ####[facility] [id number] [place] [address] [place] Potassium [Moles/Vol] 3.4 mmol/L Low 3.7-5.1 [facility] Comment on above: Order Comment: Cheng cooley Type: BLOOD SPECIMENOrdering Facility: [facility] Address: [address] [place] [address] Performed By: #### 1 9123-9, ####[facility]ITALWNCL[facility] [id number] [place] [address] [place] Protein [Mass/Vol] 6.9 g/dL Normal 6.3-8.0 [facility] Comment on above: Order Comment: Speci men Type: BLOOD SPECIMENOrdering Facility: [facility] Address: [address] [place] [address] Performed By: #### 1 9123-9, 14482-9 ####[facility] PARKNCL[facility] [id number] [place] [address] [place] Sodium [Moles/Vol] 140 mmol/L Normal 136-144 [facility] Comment on above: Order Comment: Speci men Type: BLOOD SPECIMENOrdering Facility: [facility] Address: [address] [place] [address] Performed By: #### 1 9123-9, 71942-2 ####[facility] PARKNCA [id number] [place] [address] [place] Urea nitrogen [Mass/Vol] 17 mg/dL Normal 7-21 [facility] Comment on above: Order Comment: Speci men Type: BLOOD SPECIMENOrdering Facility: [facility] Address: [address] [place] [address] Performed By: #### 1 9123-9, 11713-8 ####[facility] PARKNCLIA [id number] [place] [address] [place] Magnesium SerPl-ncon 08-11 Magnesium [Mass/Vol] 1.8 mg/dL Normal 1.7-2.3 [facility] Comment on above: Order Comment: Speci men Type: BLOOD SPECIMENOrdering Facility: [facility] Address: [address] [place] [address] Performed By: #### 1 9123-9, 92913-6 ####[facility] PARKNCLIA [id number] [place] [address] [place] CNPNon 07-28-[address] [facility] Declan 07-26-2024 CNPN Telephone (GYNML) SAL BAUTISTA ([id number]) 1950 F Date Time Provider Department 07/26/24 MATTHEW MORELAND [facility] During your visit today, we recorded the following information about you: Matthew Moreland RN 07/26/2024 1:20 PM Signed IRB#: [id number] Study name: GOG 3084: A Phase 2, Open-Label, Randomized, Non-Comparative Clinical Trial of [id number] Monotherapy and in Combination With Nivolumab in Subjects With Recurrent Ovarian Cancers PI: Dr. Fredis Buckner Visit: PreScreening Date [id number] Contacted patient by phone to inform her that her pre-screening HLA results are positive. Informed patient that archival tumor tissue will be sent today to the sponsor lab for MAGE-4 testing and research will contact patient with results, when available. Patient requesting additional information regarding the GOG-3084 study. Main study consent sent via [employer]. Encouraged the patient to reach out to research with any questions. Matthew Moreland RN Allergies As of Date: 07/26/2024 (No Known Allergies) Date Reviewed: 07/23/2024 Reviewed by: Jacy Senior RN - Fully Assessed Reason for Visit: Research [293] Cmt: IRB#: [id number]/ GOG 3084 HLA results Prescriptions as of 07/26/2024 - iv contrast (will be provided with radiology test) CT Chest W -Inject, intravenously, once for 1 dose.No IV access, insert saline lock prior to the beginning of sedation, infusion, injection of imaging exam. Discontinue saline lock post exam. If Pt. has a central line or IVAD, may access for administration according to line specific nursing protocol. Once exam is complete flush line and de-access according to line specific nursing protocol in the CT contrast administration guidelines link. - iv contrast (will be provided with radiology test) CT ABD/PEL -Inject, intravenously, once for 1 dose.No IV access, insert saline lock prior to the beginning of sedation, infusion, injection of imaging exam. Discontinue saline lock post exam. If Pt. has a central line or IVAD, may access for administration according to line specific nursing protocol. Once exam is complete flush line and de-access according to line specific nursing protocol in the CT contrast administration guidelines link. - enteric contrast (will be provided with radiology test) For CT ABD/PEL W IVCON Routine order Administer, As Directed One Time Only, via Oral, Rectal, both Oral and Rectal, Enteric Tube, Stoma or Indwelling Catheter, Enteric Contrast as designated per enteric contrast guidelines - dexAMETHasone (DECADRON) 4 mg tablet Take 5 tablets 12 and 6 hours prior to chemotherapy treatment. - ondansetron orally disintegrating (ZOFRAN ODT) 8 mg disintegrating tablet Take 1 tablet by mouth every 8 hours as needed for nausea/vomiting. - prochlorperazine (COMPAZINE) 10 mg tablet Take 1 tablet by mouth every 6 hours as needed. - acetaminophen (TYLENOL EXTRA STRENGTH) 500 mg tablet Take 1,000 mg by mouth every 6 hours as needed for pain. - nutritional supplement ([employer] STANDARD 1.4) 0.06 G - 1.4 Kcal/mL oral liquid Take 325 mL by mouth three times a day. - dicyclomine (BENTYL) 10 mg capsule Take 1 or 2 before meals, as needed. - alendronate (FOSAMAX) 70 mg tablet Take 1 tablet by mouth one time a week. Take with a full glass of water, on an empty stomach; do NOT lie down for 30minutes. - Cholecalciferol, Vitamin D3, 50 mcg (2,000 unit) cap Take 1 capsule by mouth once daily. - Loperamide HCl (ANTI-DIARRHEAL) 2 mg tab Take 1 tablet by mouth as needed. Problem List As Of Date 07/26/2024 Noted Resolved Sebaceous cyst [L72.3] 07/05/2008 11/16/2015 Osteopenia [M85.80] 07/13/2012 Irritable bowel syndrome with diarrhea [K58.0] 11/16/2015 Generalized abdominal or pelvic swelling or mas*03/15/2024 Inadequate nutrition [E63.9] 03/17/2024 Other ascites [R18.8] 03/17/2024 Severe protein-calorie malnutrition (HCC) [E43] 03/18/2024 Pelvic mass in female [R19.00] 04/09/2024 High grade ovarian cancer (HCC) [C56.9] 04/22/2024 Encounter Status:Closed by MATTHEW MORELAND RN on 07/26/24 Normal [facility] CBC W Auto Differential pane l (Bld)on 07-23-2024 Basophils (Bld) [#/Vol] [facility] Basophils/100 WBC (Bld) 0.2 % [facility] Differential cell count method Nom (Bld) Auto [facility] Eosinophils (Bld) [#/Vol] [facility] Eosinophils/100 WBC (Bld) 0.2 % [facility] Erythrocyte distribution width (RBC) [Ratio] 17.2 % High 11.5 - 15.0 % [facility] Hematocrit (Bld) [Volume fraction] 32.7 % Low 36.0 - 46.0 % [facility] Hemoglobin (Bld) [Mass/Vol] 11.0 g/dL Low 11.5 - 15.5 g/dL [facility] Immature granulocytes (Bld) [#/Vol] 0.04 10*3/uL [facility] Immature granulocytes/100 WBC (Bld) 0.8 % [facility] Interpretation and review of laboratory results Abnormal [facility] Lymphocytes (Bld) [#/Vol] 0.51 10*3/uL Low [facility] Lymphocytes/100 WBC (Bld) 9.7 % [facility] MCH (RBC) [Entitic mass] 30.5 pg 26.0 - 34.0 pg [facility] MCHC (RBC) [Mass/Vol] 33.6 g/dL 30.5 - 36.0 g/dL [facility] MCV (RBC) [Entitic vol] 90.6 fL 80.0 - 100.0 fL [facility] Monocytes (Bld) [#/Vol] 0.08 10*3/uL [facility] Monocytes/100 WBC (Bld) 1.5 % [facility] Neutrophils (Bld) [#/Vol] 4.59 10*3/uL [facility] Neutrophils/100 WBC (Bld) 87.6 % [facility] Nucleated RBC (Bld) [#/Vol] NINF [facility] Nucleated RBC/100 WBC (Bld) [Ratio] 0.0 % /100 WBC [facility] Platelet mean volume (Bld) [Entitic vol] 8.8 fL Low 9.0 - 12.7 fL [facility] Platelets (Bld) [#/Vol] 267 10*3/uL [facility] RBC (Bld) [#/Vol] 3.61 10*6/uL Low 3.90 - 5.2 0 m/uL [facility] WBC (Bld) [#/Vol] 5.24 10*3/uL [facility] Basophils (Bld) [#/Vol] 10*3/uL Normal <0.11 [facility] Comment on above: Order Comment: Speci men Type: BLOOD SPECIMENOrdering Facility: [facility] Address: [address] [place] [address] Performed By: #### 5 7021-8 ####[facility] [id number] [place] [address] [place] Basophils/100 WBC (Bld) 0.2 % Normal [facility] Comment on above: Order Comment: Speci men Type: BLOOD SPECIMENOrdering Facility: [facility] Address: [address] [place] [address] Performed By: #### 5 7021-8 ####[facility] [id number] [place] [address] [place] Differential cell count method Nom (Bld) Auto Normal [facility] Comment on above: Order Comment: Speci men Type: BLOOD SPECIMENOrdering Facility: [facility] Address: [address] [place] [address] Performed By: #### 5 7021-8 ####[facility] [id number] [place] [address] [place] Eosinophils (Bld) [#/Vol] 10*3/uL Normal <0.46 [facility] Comment on above: Order Comment: Speci men Type: BLOOD SPECIMENOrdering Facility: [facility] Address: [address] [place] [address] Performed By: #### 5 7021-8 ####[facility] ALISASANDRA [id number] [place] [address] [place] Eosinophils/100 WBC (Bld) 0.2 % Normal [facility] Comment on above: Order Comment: Speci men Type: BLOOD SPECIMENOrdering Facility: [facility] Address: [address] [place] [address] Performed By: #### 5 7021-8 ####[facility] PARKNCDEMETRIO [id number] [place] [address] [place] Erythrocyte distribution width (RBC) [Ratio] 17.2 % High 11.5-15.0 [facility] Comment on above: Order Comment: Speci men Type: BLOOD SPECIMENOrdering Facility: [facility] Address: [address] [place] [address] Performed By: #### 5 7021-8 ####[facility] PARKNCLIA [id number] [place] [address] [place] Hematocrit (Bld) [Volume fraction] 32.7 % Low 36.0-46.0 [facility] Comment on above: Order Comment: Speci men Type: BLOOD SPECIMENOrdering Facility: [facility] Address: [address] [place] [address] Performed By: #### 5 7021-8 ####[facility] PARKNCLIA [id number] [place] [address] [place] Hemoglobin (Bld) [Mass/Vol] 11.0 g/dL Low 11.5-15.5 [facility] Comment on above: Order Comment: Speci men Type: BLOOD SPECIMENOrdering Facility: [facility] Address: [address] [place] [address] Performed By: #### 5 7021-8 ####[facility]CL[facility] [id number] [place] [address] [place] Immature granulocytes (Bld) [#/Vol] 0.04 10*3/uL Normal <0.10 [facility] Comment on above: Order Comment: Speci men Type: BLOOD SPECIMENOrdering Facility: [facility] Address: [address] [place] [address] Performed By: #### 5 7021-8 ####[facility] [id number] [place] [address] [place] Immature granulocytes/100 WBC (Bld) 0.8 % Normal [facility] Comment on above: Order Comment: Speci men Type: BLOOD SPECIMENOrdering Facility: [facility] Address: [address] [place] [address] Performed By: #### 5 7021-8 ####[facility] [id number] [place] [address] [place] Lymphocytes (Bld) [#/Vol] 0.51 10*3/uL Low 1.00-4.00 [facility] Comment on above: Order Comment: Speci men Type: BLOOD SPECIMENOrdering Facility: [facility] Address: [address] [place] [address] Performed By: #### 5 7021-8 ####[facility] [id number] [place] [address] [place] Lymphocytes/100 WBC (Bld) 9.7 % Normal [facility] Comment on above: Order Comment: Speci men Type: BLOOD SPECIMENOrdering Facility: [facility] Address: [address] [place] [address] Performed By: #### 5 7021-8 ####[facility] [id number] [place] [address] [place] MCH (RBC) [Entitic mass] 30.5 pg Normal 26.0-34.0 [facility] Comment on above: Order Comment: Speci men Type: BLOOD SPECIMENOrdering Facility: [facility] Address: [address] [place] [address] Performed By: #### 5 7021-8 ####[facility] [id number] [place] [address] [place] MCHC (RBC) [Mass/Vol] 33.6 g/dL Normal 30.5-36.0 [facility] Comment on above: Order Comment: Speci men Type: BLOOD SPECIMENOrdering Facility: [facility] Address: [address] [place], [place] [address] Performed By: #### 5 7021-8 ####[facility] [id number] [place] [address] [place] MCV (RBC) [Entitic vol] 90.6 fL Normal 80.0-100.0 [facility] Comment on above: Order Comment: Speci men Type: BLOOD SPECIMENOrdering Facility: [facility] Address: [address] [place] [address] Performed By: #### 5 7021-8 ####[facility] [id number] [place] [address] [place] Monocytes (Bld) [#/Vol] 0.08 10*3/uL Normal <0.87 [facility] Comment on above: Order Comment: Speci men Type: BLOOD SPECIMENOrdering Facility: [facility] Address: [address] [place] [address] Performed By: #### 5 7021-8 ####[facility] [id number] [place] [address] [place] Monocytes/100 WBC (Bld) 1.5 % Normal [facility] Comment on above: Order Comment: Speci men Type: BLOOD SPECIMENOrdering Facility: [facility] Address: [address] [place] [address] Performed By: #### 5 7021-8 ####[facility] [id number] [place] [address] [place] Neutrophils (Bld) [#/Vol] 4.59 10*3/uL Normal 1.45-7.50 [facility] Comment on above: Order Comment: Speci men Type: BLOOD SPECIMENOrdering Facility: [facility] Address: [address] [place] [address] Performed By: #### 5 7021-8 ####[facility] [id number] [place] [address] [place] Neutrophils/100 WBC (Bld) 87.6 % Normal [facility] Comment on above: Order Comment: Speci men Type: BLOOD SPECIMENOrdering Facility: [facility] Address: [address] [place] [address] Performed By: #### 5 7021-8 ####[facility] [id number] [place] [address] [place] Nucleated RBC (Bld) [#/Vol] 10*3/uL Normal <0.01 [facility] Comment on above: Order Comment: Speci men Type: BLOOD SPECIMENOrdering Facility: [facility] Address: [address] [place] [address] Performed By: #### 5 7021-8 ####[facility] PARKNCLIA [id number] [place] [address] [place] Nucleated RBC/100 WBC (Bld) [Ratio] 0.0 /[address] [facility] Comment on above: Order Comment: Speci men Type: BLOOD SPECIMENOrdering Facility: [facility] Address: [address] [place] [address] Performed By: #### 5 7021-8 ####[facility]OSPITALWNCOPALA [id number] [place] [address] [place] Platelet mean volume (Bld) [Entitic vol] 8.8 fL Low 9.0-12.7 [facility] Comment on above: Order Comment: Speci men Type: BLOOD SPECIMENOrdering Facility: [facility] Address: [address] [place] [address] Performed By: #### 5 7021-8 ####[facility] ALISANEALA [id number] [place] [address] [place] Platelets (Bld) [#/Vol] 267 10*3/uL Normal 150-400 [facility] Comment on above: Order Comment: Speci men Type: BLOOD SPECIMENOrdering Facility: [facility] Address: [address] [place] [address] Performed By: #### 5 7021-8 ####[facility] PARKIGGYOPALA [id number] [place] [address] [place] RBC (Bld) [#/Vol] 3.61 10*6/uL Low 3.90-5.20 [facility] Comment on above: Order Comment: Speci men Type: BLOOD SPECIMENOrdering Facility: [facility] Address: [address] [place] [address] Performed By: #### 5 7021-8 ####[facility] PARKKATERINA [id number] [place] [address] [place] WBC (Bld) [#/Vol] 5.24 10*3/uL Normal 3.70-11.00 [facility] Comment on above: Order Comment: Speci men Type: BLOOD SPECIMENOrdering Facility: [facility] Address: [address] [place] [address] Performed By: #### 5 7021-8 ####[facility] PARKNCLIA [id number] [place] [address] [place] CNPNon 07-22-[address] [facility] CBC W Auto Differential pane l (Bld)on 07-21-2024 Basophils (Bld) [#/Vol] 0.04 10*3/uL Normal <0.11 [facility] Comment on above: Order Comment: Speci men Type: BLOOD SPECIMENOrdering Facility: [facility] Address: [address] [place] [address] Performed By: #### 5 7021-8 ####[facility]ALL[facility] [id number] [place] [address] [place] Basophils/100 WBC (Bld) 1.3 % Normal [facility] Comment on above: Order Comment: Speci men Type: BLOOD SPECIMENOrdering Facility: [facility] Address: [address] [place] [address] Performed By: #### 5 7021-8 ####[facility] [id number] [place] [address] [place] Differential cell count method Nom (Bld) Auto Normal [facility] Comment on above: Order Comment: Speci men Type: BLOOD SPECIMENOrdering Facility: [facility] Address: [address] [place] [address] Performed By: #### 5 7021-8 ####[facility] [id number] [place] [address] [place] Eosinophils (Bld) [#/Vol] 0.03 10*3/uL Normal <0.46 [facility] Comment on above: Order Comment: Speci men Type: BLOOD SPECIMENOrdering Facility: [facility] Address: [address] [place] [address] Performed By: #### 5 7021-8 ####[facility]ALL[facility] [id number] [place] [address] [place] Eosinophils/100 WBC (Bld) 1.0 % Normal [facility] Comment on above: Order Comment: Speci men Type: BLOOD SPECIMENOrdering Facility: [facility] Address: [address] [place] [address] Performed By: #### 5 7021-8 ####[facility]NCBL[facility] [id number] [place] [address] [place] Erythrocyte distribution width (RBC) [Ratio] 17.4 % High 11.5-15.0 [facility] Comment on above: Order Comment: Speci men Type: BLOOD SPECIMENOrdering Facility: [facility] Address: [address] [place] [address] Performed By: #### 5 7021-8 ####[facility] [id number] [place] [address] [place] Hematocrit (Bld) [Volume fraction] 32.4 % Low 36.0-46.0 [facility] Comment on above: Order Comment: Speci men Type: BLOOD SPECIMENOrdering Facility: [facility] Address: [address] [place] [address] Performed By: #### 5 7021-8 ####[facility] PARKNCLI [id number] [place] [address] [place] Hemoglobin (Bld) [Mass/Vol] 10.8 g/dL Low 11.5-15.5 [facility] Comment on above: Order Comment: Speci men Type: BLOOD SPECIMENOrdering Facility: [facility] Address: [address] [place] [address] Performed By: #### 5 7021-8 ####[facility] [id number] [place] [address] [place] Immature granulocytes (Bld) [#/Vol] 10*3/uL Normal <0.10 [facility] Comment on above: Order Comment: Speci men Type: BLOOD SPECIMENOrdering Facility: [facility] Address: [address] [place] [address] Performed By: #### 5 7021-8 ####[facility] SUNDARWNCLIA [id number] [place] [address] [place] Immature granulocytes/100 WBC (Bld) 0.7 % Normal [facility] [facility] Comment on above: Order Comment: Speci men Type: BLOOD SPECIMENOrdering Facility: [facility] Address: [address] [place] [address] Performed By: #### 5 7021-8 ####[facility] PARKNCLIA [id number] [place] [address] [place] Lymphocytes (Bld) [#/Vol] 0.91 10*3/uL Low 1.00-4.00 [facility] Comment on above: Order Comment: Speci men Type: BLOOD SPECIMENOrdering Facility: [facility] Address: [address] [place] [address] Performed By: #### 5 7021-8 ####[facility] PARKNCLIA [id number] [place] [address] [place] Lymphocytes/100 WBC (Bld) 30.5 % Normal [facility] Comment on above: Order Comment: Speci men Type: BLOOD SPECIMENOrdering Facility: [facility] Address: [address] [place] [address] Performed By: #### 5 7021-8 ####[facility] PARKNCLIA [id number] [place] [address] [place] MCH (RBC) [Entitic mass] 30.6 pg Normal 26.0-34.0 [facility] Comment on above: Order Comment: Speci men Type: BLOOD SPECIMENOrdering Facility: [facility] Address: [address] [place] [address] Performed By: #### 5 7021-8 ####[facility] PARKNCLIA [id number] [place] [address] [place] MCHC (RBC) [Mass/Vol] 33.3 g/dL Normal 30.5-36.0 [facility] Comment on above: Order Comment: Speci men Type: BLOOD SPECIMENOrdering Facility: [facility] Address: [address] [place] [address] Performed By: #### 5 7021-8 ####[facility] [id number] [place] [address] [place] MCV (RBC) [Entitic vol] 91.8 fL Normal 80.0-100.0 [facility] Comment on above: Order Comment: Speci men Type: BLOOD SPECIMENOrdering Facility: [facility] Address: [address] [place] [address] Performed By: #### 5 7021-8 ####[facility] [id number] [place] [address] [place] Monocytes (Bld) [#/Vol] 0.60 10*3/uL Normal <0.87 [facility] Comment on above: Order Comment: Speci men Type: BLOOD SPECIMENOrdering Facility: [facility] Address: [address] [place] [address] Performed By: #### 5 7021-8 ####[facility] [id number] [place] [address] [place] Monocytes/100 WBC (Bld) 20.1 % Normal [facility] Comment on above: Order Comment: Speci men Type: BLOOD SPECIMENOrdering Facility: [facility] Address: [address] [place] [address] Performed By: #### 5 7021-8 ####[facility]ITALLI [id number] [place] [address] [place] Neutrophils (Bld) [#/Vol] 1.38 10*3/uL Low 1.45-7.50 [facility] Comment on above: Order Comment: Speci men Type: BLOOD SPECIMENOrdering Facility: [facility] Address: [address] [place] [address] Performed By: #### 5 7021-8 ####[facility] [id number] [place] [address] [place] Neutrophils/100 WBC (Bld) 46.4 % Normal [facility] Comment on above: Order Comment: Speci men Type: BLOOD SPECIMENOrdering Facility: [facility] Address: [address] [place] [address] Performed By: #### 5 7021-8 ####[facility] [id number] [place] [address] [place] Nucleated RBC (Bld) [#/Vol] 10*3/uL Normal <0.01 [facility] Comment on above: Order Comment: Speci men Type: BLOOD SPECIMENOrdering Facility: [facility] Address: [address] [place] [address] Performed By: #### 5 7021-8 ####[facility] [id number] [place] [address] [place] Nucleated RBC/100 WBC (Bld) [Ratio] 0.0 /[address] [facility] Comment on above: Order Comment: Speci men Type: BLOOD SPECIMENOrdering Facility: [facility] Address: [address] [place] [address] Performed By: #### 5 7021-8 ####[facility] [id number] [place] [address] [place] Platelet mean volume (Bld) [Entitic vol] 8.6 fL Low 9.0-12.7 [facility] Comment on above: Order Comment: Speci men Type: BLOOD SPECIMENOrdering Facility: [facility] Address: [address] [place] [address] Performed By: #### 5 7021-8 ####[facility] ALISARomeliaNCLIA [id number] [place] [address] [place] Platelets (Bld) [#/Vol] 232 10*3/uL Normal 150-400 [facility] Comment on above: Order Comment: Speci men Type: BLOOD SPECIMENOrdering Facility: [facility] Address: [address] [place] [address] Performed By: #### 5 7021-8 ####[facility] PARKNCLIA [id number] [place] [address] [place] RBC (Bld) [#/Vol] 3.53 10*6/uL Low 3.90-5.20 [facility] Comment on above: Order Comment: Speci men Type: BLOOD SPECIMENOrdering Facility: [facility] Address: [address] [place] [address] Performed By: #### 5 7021-8 ####[facility]ARKNCLIA [id number] [place] [address] [place] WBC (Bld) [#/Vol] 2.98 10*3/uL Low 3.70-11.00 [facility] Comment on above: Order Comment: Speci men Type: BLOOD SPECIMENOrdering Facility: [facility] Address: [address] [place] [address] Performed By: #### 5 7021-8 ####[facility] PARKNCLIA [id number] [place] [address] [place] CNOVSPon 07-21-[address] [facility] Cancer Ag125 SerPl-aCncon Cancer Ag 125 Qn 55 [arb'U]/mL High <39 [facility] Comment on above: Order Comment: Speci men Type: BLOOD SPECIMENOrdering Facility: [facility] Address: [address] [place] [address] Result Comment: CA 1 25 test methodology used is the Electrochemiluminescence Immunoassay by [employer]. Results obtained with different methods or kits cannot be used interchangeably.The reference interval is based on the 95th percentile of 240 apparently healthy premenopausal and postmenopausal women. At a cutoff value of 65 U/mL, the test sensitivity to distinguish ovarian carcinoma (FIGO stage I to IV) versus benign gynecological disease is 79%, with a specificity of 82%.Reference: Cancer Antigen 125 (CA 125 II) [package insert V 1.0 [place]]. [employer], [place], [place] (July 2015) Performed By: #### 1 0334-1 ####[facility] LABCLIA [id number] [place] [address] [place] Comprehensive metabolic 2000 panelon 07-21-2024 Albumin [Mass/Vol] 4.6 g/dL Normal 3.9-4.9 [facility] Comment on above: Order Comment: Speci men Type: BLOOD SPECIMENOrdering Facility: [facility] Address: [address] [place] [address] Performed By: #### 2 4323-8, ####[facility] [id number] [place] [address] [place] ALP [Catalytic activity/Vol] 78 U/L Normal 34-123 [facility] Comment on above: Order Comment: Speci men Type: BLOOD SPECIMENOrdering Facility: [facility] Address: [address] [place] [address] Performed By: #### 2 4323-8, ####[facility] [id number] [place] [address] [place] ALT [Catalytic activity/Vol] 17 U/L Normal 7-38 [facility] Comment on above: Order Comment: Speci men Type: BLOOD SPECIMENOrdering Facility: [facility] Address: [address] [place] [address] Performed By: #### 2 4323-8, ####[facility] MILLTOWNCLIA [id number] [place] [address] [place] Anion gap [Moles/Vol] 10 mmol/L Normal 8-15 [facility] Comment on above: Order Comment: Speci men Type: BLOOD SPECIMENOrdering Facility: [facility] Address: [address] [place] [address] Performed By: #### 2 4323-8, ####[facility] MILLTOWNCLIA [id number] [place] [address] [place] AST [Catalytic activity/Vol] 17 U/L Normal 13-35 [facility] Comment on above: Order Comment: Speci men Type: BLOOD SPECIMENOrdering Facility: [facility] Address: [address] [place] [address] Performed By: #### 2 432-8, ####[facility] MILLTOWNCLIA [id number] [place] [address] [place] Bilirubin [Mass/Vol] 0.2 mg/dL Normal 0.2-1.3 [facility] Comment on above: Order Comment: Speci men Type: BLOOD SPECIMENOrdering Facility: [facility] Address: [address] [place] [address] Performed By: #### 2 4323-8, ####[facility] MILLTOWNCLIA [id number] [place] [address] [place] Calcium [Mass/Vol] 9.8 mg/dL Normal 8.5-10.2 [facility] Comment on above: Order Comment: Speci men Type: BLOOD SPECIMENOrdering Facility: [facility] Address: [address] [place] [address] Performed By: #### 2 4323-8, ####[facility] MILLTOWNCLIA [id number] [place] [address] [place] Chloride [Moles/Vol] 102 mmol/L Normal 98-107 [facility] Comment on above: Order Comment: Speci men Type: BLOOD SPECIMENOrdering Facility: [facility] Address: [address] [place] [address] Performed By: #### 2 4323-8, 52317-6 ####[facility] [id number] [place] [address] [place] CO2 [Moles/Vol] 25 mmol/L Normal 22-30 [facility] Comment on above: Order Comment: Speci men Type: BLOOD SPECIMENOrdering Facility: [facility] Address: [address] [place] [address] Performed By: #### 2 4323-8, 24402-0 ####[facility] [id number] [place] [address] [place] Creatinine [Mass/Vol] 0.83 mg/dL Normal 0.58-0.96 [facility] Comment on above: Order Comment: Speci men Type: BLOOD SPECIMENOrdering Facility: [facility] Address: [address] [place] [address] Performed By: #### 2 4323-8, 94379-8 ####[facility] PARKNCLIA [id number] [place] [address] [place] [facility] Creatinine and Glomerular filtration rate.predicted panel (S/P/Bld) 75 mL/min/1.73m??? Normal >=60 [facility] Comment on above: Order Comment: Speci men Type: BLOOD SPECIMENOrdering Facility: [facility] Address: [address] [place] [address] Result Comment: Ethel mated Glomerular Filtration Rate (eGFR) is calculated using the 2020 CKD-EPI creatinine equation. This equation utilizes serum creatinine, sex, and age as parameters. The creatinine assay has traceable calibration to isotope dilution-mass spectrometry. Refer to KDIGO guidelines for clinical interpretation. In patients with unstable renal function, e.g. those with acute kidney injury, the eGFR may not accurately reflect actual GFR. Performed By: #### 2 43212-11, ####[facility] PATRICIO SUNDARWNCLIA [id number] [place] [address] [place] Glucose [Mass/Vol] 80 mg/dL Normal 74-99 [facility] Comment on above: Order Comment: Cheng cooley Type: BLOOD SPECIMENOrdering Facility: [facility] Address: [address] [place] [address] Result Comment: The [place] Diabetes Association (ADA) provides guidance for cutoff values for fasting glucose and random glucose. The ADA defines fasting as no caloric intake for at least 8 hours. Fasting plasma glucose results between 100 to 125 mg/dL indicate increased risk for diabetes (prediabetes).Fasting plasma glucose results greater than or equal to 126 mg/dL meet the criteria for diagnosis of diabetes. In the absence of unequivocal hyperglycemia, results should be confirmed by repeat testing. In a patient with classic symptoms of hyperglycemia or hyperglycemic crisis, random plasma glucose results greater than or equal to 200 mg/dL meet the criteria for diagnosis of diabetes.Reference: Standards of Medical Care in Diabetes 2016, [place] [employer] Association. Diabetes Care. 2016.39(Suppl 1). Performed By: #### 2 43212-11, ####[facility] ALISAWNCLIA [id number] [place] [address] [place] Potassium [Moles/Vol] 4.1 mmol/L Normal 3.7-5.1 [facility] Comment on above: Order Comment: Cheng cooley Type: BLOOD SPECIMENOrdering Facility: [facility] Address: [address] [place] [address] Performed By: #### 2 43212-11, ####[facility]ITALWNCLIA [id number] [place] [address] [place] Protein [Mass/Vol] 7.2 g/dL Normal 6.3-8.0 [facility] Comment on above: Order Comment: Speci men Type: BLOOD SPECIMENOrdering Facility: [facility] Address: [address] [place], [place] [address] Performed By: #### 2 4323-8, 74071-3 ####[facility] PARKNCLIA [id number] [place] [address] [place] Sodium [Moles/Vol] 137 mmol/L Normal 136-144 [facility] Comment on above: Order Comment: Speci men Type: BLOOD SPECIMENOrdering Facility: [facility] Address: [address] [place] [address] Performed By: #### 2 4323-8, ####[facility] PARKNCLIA [id number] [place] [address] [place] Urea nitrogen [Mass/Vol] 20 mg/dL Normal 7-21 [facility] Comment on above: Order Comment: Speci men Type: BLOOD SPECIMENOrdering Facility: [facility] Address: [address] [place] [address] Performed By: #### 2 4323-8, ####[facility] PARKNCLIA [id number] [place] [address] [place] Magnesium SerPl-mCncon 07-21 Magnesium [Mass/Vol] 2.0 mg/dL Normal 1.7-2.3 [facility] Comment on above: Order Comment: Speci men Type: BLOOD SPECIMENOrdering Facility: [facility] Address: [address] [place], [place] [address] Performed By: #### 2 4323-8, ####[facility] PARKNCLIA [id number] [place] [address] [place] CNOVSPon 07-16-[address] [facility] CBC W Auto Differential pane l (Bld)on 07-01-2024 Basophils (Bld) [#/Vol] 0.03 10*3/uL Normal <0.11 [facility] Comment on above: Order Comment: Speci men Type: BLOOD SPECIMENOrdering Facility: [facility] Address: [address] [place] [address] Performed By: #### 5 7021-8 ####[facility] [id number] [place] [address] [place] Basophils/100 WBC (Bld) 0.7 % Normal [facility] Comment on above: Order Comment: Speci men Type: BLOOD SPECIMENOrdering Facility: [facility] Address: [address] [place] [address] Performed By: #### 5 7021-8 ####[facility] [id number] [place] [address] [place] Differential cell count method Nom (Bld) Auto Normal [facility] Comment on above: Order Comment: Speci men Type: BLOOD SPECIMENOrdering Facility: [facility] Address: [address] [place] [address] Performed By: #### 5 7021-8 ####[facility] [id number] [place] [address] [place] Eosinophils (Bld) [#/Vol] 10*3/uL Normal <0.46 [facility] Comment on above: Order Comment: Speci men Type: BLOOD SPECIMENOrdering Facility: [facility] Address: [address] [place] [address] Performed By: #### 5 7021-8 ####[facility] [id number] [place] [address] [place] Eosinophils/100 WBC (Bld) 0.0 % Normal [facility] Comment on above: Order Comment: Speci men Type: BLOOD SPECIMENOrdering Facility: [facility] Address: [address] [place] [address] Performed By: #### 5 7021-8 ####[facility] TORIBIONCLIA [id number] [place] [address] [place] Erythrocyte distribution width (RBC) [Ratio] 18.2 % High 11.5-15.0 [facility] Comment on above: Order Comment: Speci men Type: BLOOD SPECIMENOrdering Facility: [facility] Address: [address] [place] [address] Performed By: #### 5 7021-8 ####[facility] PARKKATERIN [id number] [place] [address] [place] Hematocrit (Bld) [Volume fraction] 31.6 % Low 36.0-46.0 [facility] Comment on above: Order Comment: Speci men Type: BLOOD SPECIMENOrdering Facility: [facility] Address: [address] [place] [address] Performed By: #### 5 7021-8 ####[facility] PARKNCLIA [id number] [place] [address] [place] Hemoglobin (Bld) [Mass/Vol] 10.6 g/dL Low 11.5-15.5 [facility] Comment on above: Order Comment: Speci men Type: BLOOD SPECIMENOrdering Facility: [facility] Address: [address] [place] [address] Performed By: #### 5 7021-8 ####[facility] PARKIGYGLIA [id number] [place] [address] [place] Immature granulocytes (Bld) [#/Vol] 0.08 10*3/uL Normal <0.10 [facility] Comment on above: Order Comment: Speci men Type: BLOOD SPECIMENOrdering Facility: [facility] Address: [address] [place] [address] Performed By: #### 5 7021-8 ####[facility]ITALL[facility] [id number] [place] [address] [place] Immature granulocytes/100 WBC (Bld) 1.8 % Normal [facility] Comment on above: Order Comment: Speci men Type: BLOOD SPECIMENOrdering Facility: [facility] Address: [address] [place] [address] Performed By: #### 5 7021-8 ####[facility] [id number] [place] [address] [place] Lymphocytes (Bld) [#/Vol] 0.78 10*3/uL Low 1.00-4.00 [facility] Comment on above: Order Comment: Speci men Type: BLOOD SPECIMENOrdering Facility: [facility] Address: [address] [place] [address] Performed By: #### 5 7021-8 ####[facility] [id number] [place] [address] [place] Lymphocytes/100 WBC (Bld) 17.7 % Normal [facility] Comment on above: Order Comment: Speci men Type: BLOOD SPECIMENOrdering Facility: [facility] Address: [address] [place] [address] Performed By: #### 5 7021-8 ####[facility] [id number] [place] [address] [place] MCH (RBC) [Entitic mass] 29.1 pg Normal 26.0-34.0 [facility] Comment on above: Order Comment: Speci men Type: BLOOD SPECIMENOrdering Facility: [facility] Address: [address] [place] [address] Performed By: #### 5 7021-8 ####[facility] [id number] [place] [address] [place] MCHC (RBC) [Mass/Vol] 33.5 g/dL Normal 30.5-36.0 [facility] Comment on above: Order Comment: Speci men Type: BLOOD SPECIMENOrdering Facility: [facility] Address: [address] [place] [address] Performed By: #### 5 7021-8 ####[facility] [id number] [place] [address] [place] MCV (RBC) [Entitic vol] 86.8 fL Normal 80.0-100.0 [facility] Comment on above: Order Comment: Speci men Type: BLOOD SPECIMENOrdering Facility: [facility] Address: [address] [place] [address] Performed By: #### 5 7021-8 ####[facility] [id number] [place] [address] [place] Monocytes (Bld) [#/Vol] 0.17 10*3/uL Normal <0.87 [facility] Comment on above: Order Comment: Speci men Type: BLOOD SPECIMENOrdering Facility: [facility] Address: [address] [place] [address] Performed By: #### 5 7021-8 ####[facility] PARKNCA [id number] [place] [address] [place] Monocytes/100 WBC (Bld) 3.9 % Normal [facility] Comment on above: Order Comment: Speci men Type: BLOOD SPECIMENOrdering Facility: [facility] Address: [address] [place] [address] Performed By: #### 5 7021-8 ####[facility]NC[facility] [id number] [place] [address] [place] Neutrophils (Bld) [#/Vol] 3.34 10*3/uL Normal 1.45-7.50 [facility] Comment on above: Order Comment: Speci men Type: BLOOD SPECIMENOrdering Facility: [facility] Address: [address] [place] [address] Performed By: #### 5 7021-8 ####[facility] ALISAJULIUSLIA [id number] [place] [address] [place] [facility] Neutrophils/100 WBC (Bld) 75.9 % Normal [facility] Comment on above: Order Comment: Speci men Type: BLOOD SPECIMENOrdering Facility: [facility] Address: [address] [place] [address] Performed By: #### 5 7021-8 ####[facility] PARKNCLIA [id number] [place] [address] [place] Nucleated RBC (Bld) [#/Vol] 10*3/uL Normal <0.01 [facility] Comment on above: Order Comment: Speci men Type: BLOOD SPECIMENOrdering Facility: [facility] Address: [address] [place] [address] Performed By: #### 5 7021-8 ####[facility] PARKNCLIA [id number] [place] [address] [place] Nucleated RBC/100 WBC (Bld) [Ratio] 0.0 /[address] [facility] Comment on above: Order Comment: Speci men Type: BLOOD SPECIMENOrdering Facility: [facility] Address: [address] [place] [address] Performed By: #### 5 7021-8 ####[facility]ALL[facility] [id number] [place] [address] [place] Platelet mean volume (Bld) [Entitic vol] 8.6 fL Low 9.0-12.7 [facility] Comment on above: Order Comment: Speci men Type: BLOOD SPECIMENOrdering Facility: [facility] Address: [address] [place] [address] Performed By: #### 5 7021-8 ####[facility] [id number] [place] [address] [place] Platelets (Bld) [#/Vol] 165 10*3/uL Normal 150-400 [facility] Comment on above: Order Comment: Speci men Type: BLOOD SPECIMENOrdering Facility: [facility] Address: [address] [place] [address] Performed By: #### 5 7021-8 ####[facility] PARKNCA [id number] [place] [address] [place] RBC (Bld) [#/Vol] 3.64 10*6/uL Low 3.90-5.20 [facility] Comment on above: Order Comment: Speci men Type: BLOOD SPECIMENOrdering Facility: [facility] Address: [address] [place] [address] Performed By: #### 5 7021-8 ####[facility] [id number] [place] [address] [place] WBC (Bld) [#/Vol] 4.40 10*3/uL Normal 3.70-11.00 [facility] Comment on above: Order Comment: Speci men Type: BLOOD SPECIMENOrdering Facility: [facility] [facility] Address: [address] [place] [address] Performed By: #### 5 7021-8 ####[facility]IT[facility]IA [id number] [place] [address] [place] Prealb SerPl-mCncon 07-01-20 24 Prealbumin [Mass/Vol] 34 mg/dL Normal 17-36 [facility] Comment on above: Order Comment: Speci men Type: BLOOD SPECIMENOrdering Facility: [facility] Address: [address] [place] [address] Performed By: #### 1 4338-8 ####[facility] LABCLIA [id number] [address] [id number] [address] [place] CBC W Auto Differential pane l (Bld)on 06-30-2024 Basophils (Bld) [#/Vol] 0.06 10*3/uL Normal <0.11 [facility] Comment on above: Order Comment: Speci men Type: BLOOD SPECIMENOrdering Facility: [facility] Address: [address] [place] [address] Performed By: #### 5 7021-8 ####[facility] [id number] [place] [address] [place] Basophils/100 WBC (Bld) 2.0 % Normal [facility] Comment on above: Order Comment: Speci men Type: BLOOD SPECIMENOrdering Facility: [facility] Address: [address] [place] [address] Performed By: #### 5 7021-8 ####[facility] [id number] [place] [address] [place] Differential cell count method Nom (Bld) Auto Normal [facility] Comment on above: Order Comment: Speci men Type: BLOOD SPECIMENOrdering Facility: [facility] Address: [address] [place] [address] Performed By: #### 5 7021-8 ####[facility] [id number] [place] [address] [place] Eosinophils (Bld) [#/Vol] 0.04 10*3/uL Normal <0.46 [facility] Comment on above: Order Comment: Speci men Type: BLOOD SPECIMENOrdering Facility: [facility] Address: [address] [place] [address] Performed By: #### 5 7021-8 ####[facility] PARKNCLIA [id number] [place] [address] [place] Eosinophils/100 WBC (Bld) 1.3 % Normal [facility] Comment on above: Order Comment: Speci men Type: BLOOD SPECIMENOrdering Facility: [facility] Address: [address] [place] [address] Performed By: #### 5 7021-8 ####[facility] LUIGI [id number] [place] [address] [place] Erythrocyte distribution width (RBC) [Ratio] 18.6 % High 11.5-15.0 [facility] Comment on above: Order Comment: Speci men Type: BLOOD SPECIMENOrdering Facility: [facility] Address: [address] [place] [address] Performed By: #### 5 7021-8 ####[facility] PARKNCLIBoo [id number] [place] [address] [place] Hematocrit (Bld) [Volume fraction] 33.3 % Low 36.0-46.0 [facility] Comment on above: Order Comment: Speci men Type: BLOOD SPECIMENOrdering Facility: [facility] Address: [address] [place] [address] Performed By: #### 5 7021-8 ####[facility] PARKNCLIA [id number] [place] [address] [place] Hemoglobin (Bld) [Mass/Vol] 11.0 g/dL Low 11.5-15.5 [facility] Comment on above: Order Comment: Speci men Type: BLOOD SPECIMENOrdering Facility: [facility] Address: [address] [place] [address] Performed By: #### 5 7021-8 ####[facility] PARKNCLIA [id number] [place] [address] [place] Immature granulocytes (Bld) [#/Vol] 0.03 10*3/uL Normal <0.10 [facility] Comment on above: Order Comment: Speci men Type: BLOOD SPECIMENOrdering Facility: [facility] Address: [address] [place] [address] Performed By: #### 5 7021-8 ####[facility] MILLWNCLIA [id number] [place] [address] [place] Immature granulocytes/100 WBC (Bld) 1.0 % Normal [facility] Comment on above: Order Comment: Speci men Type: BLOOD SPECIMENOrdering Facility: [facility] Address: [address] [place] [address] Performed By: #### 5 7021-8 ####[facility] [id number] [place] [address] [place] Lymphocytes (Bld) [#/Vol] 1.17 10*3/uL Normal 1.00-4.00 [facility] Comment on above: Order Comment: Speci men Type: BLOOD SPECIMENOrdering Facility: [facility] Address: [address] [place] [address] Performed By: #### 5 7021-8 ####[facility] [id number] [place] [address] [place] Lymphocytes/100 WBC (Bld) 38.5 % Normal [facility] Comment on above: Order Comment: Speci men Type: BLOOD SPECIMENOrdering Facility: [facility] Address: [address] [place] [address] Performed By: #### 5 7021-8 ####[facility] [id number] [place] [address] [place] MCH (RBC) [Entitic mass] 29.3 pg Normal 26.0-34.0 [facility] Comment on above: Order Comment: Speci men Type: BLOOD SPECIMENOrdering Facility: [facility] Address: [address] [place] [address] Performed By: #### 5 7021-8 ####[facility] PARKNCLIA [id number] [place] [address] [place] MCHC (RBC) [Mass/Vol] 33.0 g/dL Normal 30.5-36.0 [facility] Comment on above: Order Comment: Speci men Type: BLOOD SPECIMENOrdering Facility: [facility] Address: [address] [place] [address] Performed By: #### 5 7021-8 ####[facility] [id number] [place] [address] [place] MCV (RBC) [Entitic vol] 88.6 fL Normal 80.0-100.0 [facility] Comment on above: Order Comment: Speci men Type: BLOOD SPECIMENOrdering Facility: [facility] Address: [address] [place] [address] Performed By: #### 5 7021-8 ####[facility] [id number] [place] [address] [place] Monocytes (Bld) [#/Vol] 0.92 10*3/uL High <0.87 [facility] Comment on above: Order Comment: Speci men Type: BLOOD SPECIMENOrdering Facility: [facility] Address: [address] [place] [address] Performed By: #### 5 7021-8 ####[facility] [id number] [place] [address] [place] Monocytes/100 WBC (Bld) 30.3 % Normal [facility] Comment on above: Order Comment: Speci men Type: BLOOD SPECIMENOrdering Facility: [facility] Address: [address] [place] [address] Performed By: #### 5 7021-8 ####[facility] PARKNCLI [id number] [place] [address] [place] Neutrophils (Bld) [#/Vol] 0.82 10*3/uL Low 1.45-7.50 [facility] Comment on above: Order Comment: Speci men Type: BLOOD SPECIMENOrdering Facility: [facility] Address: [address] [place] [address] Performed By: #### 5 7021-8 ####[facility] ALISAGREENFIELDCALVIN [id number] [place] [address] [place] Neutrophils/100 WBC (Bld) 26.9 % Normal [facility] Comment on above: Order Comment: Speci men Type: BLOOD SPECIMENOrdering Facility: [facility] Address: [address] [place] [address] Performed By: #### 5 7021-8 ####[facility] [id number] [place] [address] [place] Nucleated RBC (Bld) [#/Vol] 10*3/uL Normal <0.01 [facility] Comment on above: Order Comment: Speci men Type: BLOOD SPECIMENOrdering Facility: [facility] Address: [address] [place] [address] Performed By: #### 5 7021-8 ####[facility] [id number] [place] [address] [place] Nucleated RBC/100 WBC (Bld) [Ratio] 0.0 /[address] [facility] Comment on above: Order Comment: Speci men Type: BLOOD SPECIMENOrdering Facility: [facility] Address: [address] [place] [address] Performed By: #### 5 7021-8 ####[facility]ALL[facility] [id number] [place] [address] [place] Platelet mean volume (Bld) [Entitic vol] 8.9 fL Low 9.0-12.7 [facility] Comment on above: Order Comment: Speci men Type: BLOOD SPECIMENOrdering Facility: [facility] Address: [address] [place] [address] Performed By: #### 5 7021-8 ####[facility] PARKNCLIA [id number] [place] [address] [place] Platelets (Bld) [#/Vol] 183 10*3/uL Normal 150-400 [facility] Comment on above: Order Comment: Speci men Type: BLOOD SPECIMENOrdering Facility: [facility] Address: [address] [place] [address] Performed By: #### 5 7021-8 ####[facility] PARKNCLIA [id number] [place] [address] [place] RBC (Bld) [#/Vol] 3.76 10*6/uL Low 3.90-5.20 [facility] Comment on above: Order Comment: Speci men Type: BLOOD SPECIMENOrdering Facility: [facility] Address: [address] [place] [address] Performed By: #### 5 7021-8 ####[facility] [id number] [place] [address] [place] WBC (Bld) [#/Vol] 3.04 10*3/uL Low 3.70-11.00 [facility] Comment on above: Order Comment: Speci men Type: BLOOD SPECIMENOrdering Facility: [facility] Address: [address] [place] [address] Performed By: #### 5 7021-8 ####[facility] PARKNCLIA [id number] [place] [address] [place] CNOVSPon 06-30-[address] [facility] Cancer Ag125 SerPl-aCncon Cancer Ag 125 Qn 183 [arb'U]/mL High <39 [facility] Comment on above: Order Comment: Speci men Type: BLOOD SPECIMENOrdering Facility: [facility] Address: [address] [place] [address] Result Comment: CA 1 25 test methodology used is the Electrochemiluminescence Immunoassay by [employer]. Results obtained with different methods or kits cannot be used interchangeably.The reference interval is based on the 95th percentile of 240 apparently healthy premenopausal and postmenopausal women. At a cutoff value of 65 U/mL, the test sensitivity to distinguish ovarian carcinoma (FIGO stage I to IV) versus benign gynecological disease is 79%, with a specificity of 82%.Reference: Cancer Antigen 125 (CA 125 II) [package insert V 1.0 [place]]. [employer], [place], [place] (July 2015) Performed By: #### 1 0334-1 ####[facility] LABCLIA [id number] [place] [address] [place] Comprehensive metabolic 2000 panelon 06-30-2024 Albumin [Mass/Vol] 4.6 g/dL Normal 3.9-4.9 [facility] Comment on above: Order Comment: Speci men Type: BLOOD SPECIMENOrdering Facility: [facility] Address: [address] [place] [address] Performed By: #### 1 9123-9, 24702-1 ####[facility]ITALWNCLIA [id number] [place] [address] [place] ALP [Catalytic activity/Vol] 75 U/L Normal 34-123 [facility] Comment on above: Order Comment: Speci men Type: BLOOD SPECIMENOrdering Facility: [facility] Address: [address] [place] [address] Performed By: #### 1 9123-9, 58108-6 ####[facility] MILLWNCLIA [id number] [place] [address] [place] ALT [Catalytic activity/Vol] 15 U/L Normal 7-38 [facility] Comment on above: Order Comment: Speci men Type: BLOOD SPECIMENOrdering Facility: [facility] Address: [address] [place] [address] Performed By: #### 1 9123-9, 86815-2 ####[facility] PARKIGGYLIA [id number] [place] [address] [place] Anion gap [Moles/Vol] 12 mmol/L Normal 8-15 [facility] Comment on above: Order Comment: Speci men Type: BLOOD SPECIMENOrdering Facility: [facility] Address: [address] [place] [address] Performed By: #### 1 9123-9, 88989-6 ####[facility] MILLTOWNCLIA [id number] [place] [address] [place] AST [Catalytic activity/Vol] 15 U/L Normal 13-35 [facility] Comment on above: Order Comment: Speci men Type: BLOOD SPECIMENOrdering Facility: [facility] Address: [address] [place] [address] Performed By: #### 1 9123-9, 33095-7 ####[facility] MILLTOWNCLIA [id number] [place] [address] [place] Bilirubin [Mass/Vol] 0.2 mg/dL Normal 0.2-1.3 [facility] Comment on above: Order Comment: Speci men Type: BLOOD SPECIMENOrdering Facility: [facility] Address: [address] [place] [address] Performed By: #### 1 9123-9, 39457-3 ####[facility] MILLTOWNCLIA [id number] [place] [address] [place] Calcium [Mass/Vol] 9.8 mg/dL Normal 8.5-10.2 [facility] Comment on above: Order Comment: Speci men Type: BLOOD SPECIMENOrdering Facility: [facility] Address: [address] [place] [address] Performed By: #### 1 9123-9, 94496-6 ####[facility] MILLTOWNCLIA [id number] [place] [address] [place] Chloride [Moles/Vol] 103 mmol/L Normal 98-107 [facility] Comment on above: Order Comment: Speci men Type: BLOOD SPECIMENOrdering Facility: [facility] Address: [address] [place] [address] Performed By: #### 1 9123-9, 58187-2 ####[facility] [id number] [address] [place] CO2 [Moles/Vol] 23 mmol/L Normal 22-30 [facility] Comment on above: Order Comment: Speci men Type: BLOOD SPECIMENOrdering Facility: [facility] Address: [address] [place] [address] Performed By: #### 1 9123-9, 13698-9 ####[facility] [id number] [address] [place] Creatinine [Mass/Vol] 0.83 mg/dL Normal 0.58-0.96 [facility] Comment on above: Order Comment: Speci men Type: BLOOD SPECIMENOrdering Facility: [facility] Address: [address] [place] [address] Performed By: #### 1 9123-9, 29015-8 ####[facility] [id number] [address] OF [facility] Creatinine and Glomerular filtration rate.predicted panel (S/P/Bld) 75 mL/min/1.73m??? Normal >=60 [facility] Comment on above: Order Comment: Speci men Type: BLOOD SPECIMENOrdering Facility: [facility] Address: [address] [place] [address] Result Comment: Ethel mated Glomerular Filtration Rate (eGFR) is calculated using the 2020 CKD-EPI creatinine equation. This equation utilizes serum creatinine, sex, and age as parameters. The creatinine assay has traceable calibration to isotope dilution-mass spectrometry. Refer to KDIGO guidelines for clinical interpretation. In patients with unstable renal function, e.g. those with acute kidney injury, the eGFR may not accurately reflect actual GFR. Performed By: #### 1 9123-9, 46108-2 ####[facility] PARKIGGYLI [id number] [place] [address]335[address] [place] Glucose [Mass/Vol] 82 mg/dL Normal 74-99 [facility] Comment on above: Order Comment: Speci men Type: BLOOD SPECIMENOrdering Facility: [facility] Address: [address] [place] [address] Result Comment: The [place] Diabetes Association (ADA) provides guidance for cutoff values for fasting glucose and random glucose. The ADA defines fasting as no caloric intake for at least 8 hours. Fasting plasma glucose results between 100 to 125 mg/dL indicate increased risk for diabetes (prediabetes).Fasting plasma glucose results greater than or equal to 126 mg/dL meet the criteria for diagnosis of diabetes. In the absence of unequivocal hyperglycemia, results should be confirmed by repeat testing. In a patient with classic symptoms of hyperglycemia or hyperglycemic crisis, random plasma glucose results greater than or equal to 200 mg/dL meet the criteria for diagnosis of diabetes.Reference: Standards of Medical Care in Diabetes 2016, [place] [employer] Association. Diabetes Care. 2016.39(Suppl 1). Performed By: #### 1 9123-9, ####[facility] [id number] [place] [address] [place] Potassium [Moles/Vol] 3.7 mmol/L Normal 3.7-5.1 [facility] Comment on above: Order Comment: Bekai men Type: BLOOD SPECIMENOrdering Facility: [facility] Address: [address] [id number] Performed By: #### 1 9123-9, ####[facility] [id number] [place] [address] [place] Protein [Mass/Vol] 7.4 g/dL Normal 6.3-8.0 [facility] Comment on above: Order Comment: Speci men Type: BLOOD SPECIMENOrdering Facility: [facility] Address: [address] [place] [address] Performed By: #### 1 9123-9, 06599-1 ####[facility] TORIBIONCLIA [id number] [place] [address] [place] Sodium [Moles/Vol] 138 mmol/L Normal 136-144 [facility] Comment on above: Order Comment: Speci men Type: BLOOD SPECIMENOrdering Facility: [facility] Address: [address] [place] [address] Performed By: #### 1 9123-9, 60491-8 ####[facility] ALISAGREENFIELDIGGYLIA [id number] [place] [address] [place] Urea nitrogen [Mass/Vol] 21 mg/dL Normal 7-21 [facility] Comment on above: Order Comment: Speci men Type: BLOOD SPECIMENOrdering Facility: [facility] Address: [address] [place] [address] Performed By: #### 1 9123-9, 48695-6 ####[facility] ALISAEDGARKATERINA [id number] [place] [address] [place] Magnesium SerPl-mCncon 06-30 Magnesium [Mass/Vol] 2.0 mg/dL Normal 1.7-2.3 [facility] Comment on above: Order Comment: Speci men Type: BLOOD SPECIMENOrdering Facility: [facility] Address: [address] [place] [address] Performed By: #### 1 9123-9, 93303-1 ####[facility] ALISAEDGARNCLIA [id number] [place] [address] [place] ABD/PEL W IVCONon 024 CT ABD/PEL W IVCON Normal [facility] CT CHEST W IVCONon 4 CT CHEST W IVCON Normal [facility] CNCNPATEDon 06-18-[address] [facility] MISC SEND OUT TST 1on 2023 MIS SCAN TEST RESULTS 1 View results in Scanned Documents link when available Normal [facility] Comment on above: Order Comment: Speci men Type: BLOOD SPECIMENOrdering Facility: [facility] Address: [address] [place] [address] Performed By: #### M ISC1 ####NON-INTERFACED REF LABSCLIA SEE SCANNED RESULTSCLEVELAND CLINIC [facility] LABCLIA [id number] [place] [address] [place] REFERRAL LAB 1 (DROP-DOWN) [facility] Normal [facility] Comment on above: Order Comment: Speci men Type: BLOOD SPECIMENOrdering Facility: [facility] Address: [address] [place] [address] Performed By: #### M ISC1 ####NON-INTERFACED REF LABSCLIA SEE SCANNED RESULTSCLEVELAND CLINIC [facility] LABCLIA [id number] [address] [place] TEST 1 Multi Cancer Panel Normal [facility] Comment on above: Order Comment: Speci men Type: BLOOD SPECIMENOrdering Facility: [facility] Address: [address] [place] [address] Performed By: #### M ISC1 ####NON-INTERFACED REF LABSCLIA SEE SCANNED RESULTSCLEVELAND CLINIC [facility] LABCLIA [id number] [place] [address] [place] CNPNon 06-14-[address] [facility] CBC W Auto Differential pane l (Bld)on 06-11-2024 Basophils (Bld) [#/Vol] 10*3/uL Normal <0.11 [facility] Comment on above: Order Comment: Speci men Type: BLOOD SPECIMENOrdering Facility: [facility] Address: [address] [place] [address] Performed By: #### 5 7021-8 ####[facility] PATRICIO MEYERS [id number] [place] [address] [place] Basophils/100 WBC (Bld) 0.2 % Normal [facility] Comment on above: Order Comment: Speci men Type: BLOOD SPECIMENOrdering Facility: [facility] Address: [address] [place] [address] Performed By: #### 5 7021-8 ####[facility] [id number] [place] [address] [place] Differential cell count method Nom (Bld) Auto Normal [facility] Comment on above: Order Comment: Speci men Type: BLOOD SPECIMENOrdering Facility: [facility] Address: [address] [place] [address] Performed By: #### 5 7021-8 ####[facility]ARKNC[facility] [id number] [place] [address] [place] Eosinophils (Bld) [#/Vol] 10*3/uL Normal <0.46 [facility] Comment on above: Order Comment: Speci men Type: BLOOD SPECIMENOrdering Facility: [facility] Address: [address] [place] [address] Performed By: #### 5 7021-8 ####[facility] PARKNCLI [id number] [place] [address] [place] Eosinophils/100 WBC (Bld) 0.0 % Normal [facility] Comment on above: Order Comment: Speci men Type: BLOOD SPECIMENOrdering Facility: [facility] Address: [address] [place] [address] Performed By: #### 5 7021-8 ####[facility] PARKNCLIA [id number] [place] [address] [place] Erythrocyte distribution width (RBC) [Ratio] 17.2 % High 11.5-15.0 [facility] Comment on above: Order Comment: Speci men Type: BLOOD SPECIMENOrdering Facility: [facility] Address: [address] [place] [address] Performed By: #### 5 7021-8 ####[facility] ALISAGREENFIELDKATERIN [id number] [place] [address] [place] Hematocrit (Bld) [Volume fraction] 32.9 % Low 36.0-46.0 [facility] Comment on above: Order Comment: Speci men Type: BLOOD SPECIMENOrdering Facility: [facility] Address: [address] [place] [address] Performed By: #### 5 7021-8 ####[facility] PARKNCBL[facility] [id number] [place] [address] [place] Hemoglobin (Bld) [Mass/Vol] 10.9 g/dL Low 11.5-15.5 [facility] Comment on above: Order Comment: Speci men Type: BLOOD SPECIMENOrdering Facility: [facility] Address: [address] [place] [address] Performed By: #### 5 7021-8 ####[facility] [id number] [place] [address] [place] Immature granulocytes (Bld) [#/Vol] 0.03 10*3/uL Normal <0.10 [facility] Comment on above: Order Comment: Speci men Type: BLOOD SPECIMENOrdering Facility: [facility] Address: [address] [place] [address] Performed By: #### 5 7021-8 ####[facility] [id number] [place] [address] [place] Immature granulocytes/100 WBC (Bld) 0.5 % Normal [facility] Comment on above: Order Comment: Speci men Type: BLOOD SPECIMENOrdering Facility: [facility] Address: [address] [place] [address] Performed By: #### 5 7021-8 ####[facility] MILLWNCLIA [id number] [place] [address] [place] Lymphocytes (Bld) [#/Vol] 0.54 10*3/uL Low 1.00-4.00 [facility] Comment on above: Order Comment: Speci men Type: BLOOD SPECIMENOrdering Facility: [facility] Address: [address] [place] [address] Performed By: #### 5 7021-8 ####[facility] [id number] [place] [address] [place] Lymphocytes/100 WBC (Bld) 9.5 % Normal [facility] Comment on above: Order Comment: Speci men Type: BLOOD SPECIMENOrdering Facility: [facility] Address: [address] [place] [address] Performed By: #### 5 7021-8 ####[facility] [id number] [place] [address] [place] MCH (RBC) [Entitic mass] 28.2 pg Normal 26.0-34.0 [facility] Comment on above: Order Comment: Speci men Type: BLOOD SPECIMENOrdering Facility: [facility] Address: [address] [place] [address] Performed By: #### 5 7021-8 ####[facility] [id number] [place] [address] [place] MCHC (RBC) [Mass/Vol] 33.1 g/dL Normal 30.5-36.0 [facility] Comment on above: Order Comment: Speci men Type: BLOOD SPECIMENOrdering Facility: [facility] Address: [address] [place] [address] Performed By: #### 5 7021-8 ####[facility] PARKNCL[facility] [id number] [place] [address] [place] MCV (RBC) [Entitic vol] 85.0 fL Normal 80.0-100.0 [facility] Comment on above: Order Comment: Speci men Type: BLOOD SPECIMENOrdering Facility: [facility] Address: [address] [place] [address] Performed By: #### 5 7021-8 ####[facility] [id number] [place] [address] [place] Monocytes (Bld) [#/Vol] 0.03 10*3/uL Normal <0.87 [facility] Comment on above: Order Comment: Speci men Type: BLOOD SPECIMENOrdering Facility: [facility] Address: [address] [place] [address] Performed By: #### 5 7021-8 ####[facility] [id number] [place] [address] [place] Monocytes/100 WBC (Bld) 0.5 % Normal [facility] Comment on above: Order Comment: Speci men Type: BLOOD SPECIMENOrdering Facility: [facility] Address: [address] [place] [address] Performed By: #### 5 7021-8 ####[facility] [id number] [place] [address] [place] Neutrophils (Bld) [#/Vol] 5.09 10*3/uL Normal 1.45-7.50 [facility] Comment on above: Order Comment: Speci men Type: BLOOD SPECIMENOrdering Facility: [facility] Address: [address] [place] [address] Performed By: #### 5 7021-8 ####[facility] [id number] [place] [address] [place] Neutrophils/100 WBC (Bld) 89.3 % Normal [facility] Comment on above: Order Comment: Speci men Type: BLOOD SPECIMENOrdering Facility: [facility] Address: [address] [place] [address] Performed By: #### 5 7021-8 ####[facility] PARKKATERIN [id number] [place] [address] [place] Nucleated RBC (Bld) [#/Vol] 10*3/uL Normal <0.01 [facility] Comment on above: Order Comment: Speci men Type: BLOOD SPECIMENOrdering Facility: [facility] Address: [address] [place] [address] Performed By: #### 5 7021-8 ####[facility] [id number] [place] [address] [place] Nucleated RBC/100 WBC (Bld) [Ratio] 0.0 /[address] [facility] Comment on above: Order Comment: Speci men Type: BLOOD SPECIMENOrdering Facility: [facility] Address: [address] [place] [address] Performed By: #### 5 7021-8 ####[facility] [id number] [place] [address] [place] Platelet mean volume (Bld) [Entitic vol] 8.7 fL Low 9.0-12.7 [facility] Comment on above: Order Comment: Speci men Type: BLOOD SPECIMENOrdering Facility: [facility] Address: [address] [place] [address] Performed By: #### 5 7021-8 ####[facility] [id number] [place] [address] [place] Platelets (Bld) [#/Vol] 312 10*3/uL Normal 150-400 [facility] Comment on above: Order Comment: Speci men Type: BLOOD SPECIMENOrdering Facility: [facility] Address: [address] [place] [address] Performed By: #### 5 7021-8 ####[facility] SUNDARWNCLIA [id number] [place] [address] [place] RBC (Bld) [#/Vol] 3.87 10*6/uL Low 3.90-5.20 [facility] Comment on above: Order Comment: Speci men Type: BLOOD SPECIMENOrdering Facility: [facility] Address: [address] [place] [address] Performed By: #### 5 7021-8 ####[facility] PARKNCL[facility] [id number] [place] [address] [place] WBC (Bld) [#/Vol] 5.70 10*3/uL Normal 3.70-11.00 [facility] Comment on above: Order Comment: Speci men Type: BLOOD SPECIMENOrdering Facility: [facility] Address: [address] [place] [address] Performed By: #### 5 7021-8 ####[facility] PARKNCLIA [id number] [place] [address] [place] CBC W Auto Differential pane l (Bld)on 06-08-2024 Basophils (Bld) [#/Vol] 0.04 10*3/uL Normal <0.11 [facility] Comment on above: Order Comment: Speci men Type: BLOOD SPECIMENOrdering Facility: [facility] Address: [address] [place] [address] Performed By: #### 5 7021-8 ####[facility] PARKNCL[facility] [id number] [place] [address] [place] Basophils/100 WBC (Bld) 1.4 % Normal [facility] Comment on above: Order Comment: Speci men Type: BLOOD SPECIMENOrdering Facility: [facility] Address: [address] [place] [address] Performed By: #### 5 7021-8 ####[facility] PARKIGGYLIA [id number] [place] [address] [place] Differential cell count method Nom (Bld) Auto Normal [facility] Comment on above: Order Comment: Speci men Type: BLOOD SPECIMENOrdering Facility: [facility] Address: [address] [place] [address] Performed By: #### 5 7021-8 ####[facility] [id number] [place] [address] [place] Eosinophils (Bld) [#/Vol] 10*3/uL Normal <0.46 [facility] Comment on above: Order Comment: Speci men Type: BLOOD SPECIMENOrdering Facility: [facility] Address: [address] [place] [address] Performed By: #### 5 7021-8 ####[facility] [id number] [place] [address] [place] Eosinophils/100 WBC (Bld) 0.7 % Normal [facility] Comment on above: Order Comment: Speci men Type: BLOOD SPECIMENOrdering Facility: [facility] Address: [address] [place] [address] Performed By: #### 5 7021-8 ####[facility] [id number] [place] [address] [place] Erythrocyte distribution width (RBC) [Ratio] 17.2 % High 11.5-15.0 [facility] Comment on above: Order Comment: Speci men Type: BLOOD SPECIMENOrdering Facility: [facility] Address: [address] [place] [address] Performed By: #### 5 7021-8 ####[facility] [id number] [place] [address] [place] Hematocrit (Bld) [Volume fraction] 34.0 % Low 36.0-46.0 [facility] Comment on above: Order Comment: Speci men Type: BLOOD SPECIMENOrdering Facility: [facility] Address: [address] [place] [address] Performed By: #### 5 7021-8 ####[facility] ALISARomeliaNCDEMETRIO [id number] [place] [address] [place] Hemoglobin (Bld) [Mass/Vol] 11.0 g/dL Low 11.5-15.5 [facility] Comment on above: Order Comment: Speci men Type: BLOOD SPECIMENOrdering Facility: [facility] Address: [address] [place] [address] Performed By: #### 5 7021-8 ####[facility] PARKIGGYBLUE [facility]OUNTAIN [facility] [id number] [place] [address] [place] Immature granulocytes (Bld) [#/Vol] 10*3/uL Normal <0.10 [facility] Comment on above: Order Comment: Speci men Type: BLOOD SPECIMENOrdering Facility: [facility] Address: [address] [place] [address] Performed By: #### 5 7021-8 ####[facility] [id number] [place] [address] [place] Immature granulocytes/100 WBC (Bld) 0.3 % Normal [facility] Comment on above: Order Comment: Speci men Type: BLOOD SPECIMENOrdering Facility: [facility] Address: [address] [place] [address] Performed By: #### 5 7021-8 ####[facility] PARKNCLIA [id number] [place] [address] [place] Lymphocytes (Bld) [#/Vol] 1.00 10*3/uL Normal 1.00-4.00 [facility] Comment on above: Order Comment: Speci men Type: BLOOD SPECIMENOrdering Facility: [facility] Address: [address] [place] [address] Performed By: #### 5 7021-8 ####[facility] [id number] [place] [address] [place] Lymphocytes/100 WBC (Bld) 35.0 % Normal [facility] Comment on above: Order Comment: Speci men Type: BLOOD SPECIMENOrdering Facility: [facility] Address: [address] [place] [address] Performed By: #### 5 7021-8 ####[facility] [id number] [place] [address] [place] MCH (RBC) [Entitic mass] 28.3 pg Normal 26.0-34.0 [facility] Comment on above: Order Comment: Speci men Type: BLOOD SPECIMENOrdering Facility: [facility] Address: [address] [place] [address] Performed By: #### 5 7021-8 ####[facility] [id number] [place] [address] [place] MCHC (RBC) [Mass/Vol] 32.4 g/dL Normal 30.5-36.0 [facility] Comment on above: Order Comment: Speci men Type: BLOOD SPECIMENOrdering Facility: [facility] Address: [address] [place] [address] Performed By: #### 5 7021-8 ####[facility] [id number] [place] [address] [place] MCV (RBC) [Entitic vol] 87.4 fL Normal 80.0-100.0 [facility] Comment on above: Order Comment: Speci men Type: BLOOD SPECIMENOrdering Facility: [facility] Address: [address] [place], [place] [address] Performed By: #### 5 7021-8 ####[facility] [id number] [place] [address] [place] Monocytes (Bld) [#/Vol] 0.39 10*3/uL Normal <0.87 [facility] Comment on above: Order Comment: Speci men Type: BLOOD SPECIMENOrdering Facility: [facility] Address: [address] [place] [address] Performed By: #### 5 7021-8 ####[facility] [id number] [place] [address] [place] Monocytes/100 WBC (Bld) 13.6 % Normal [facility] Comment on above: Order Comment: Speci men Type: BLOOD SPECIMENOrdering Facility: [facility] Address: [address] [place] [address] Performed By: #### 5 7021-8 ####[facility] [id number] [place] [address] [place] Neutrophils (Bld) [#/Vol] 1.40 10*3/uL Low 1.45-7.50 [facility] Comment on above: Order Comment: Speci men Type: BLOOD SPECIMENOrdering Facility: [facility] Address: [address] [place] [address] Performed By: #### 5 7021-8 ####[facility] [id number] [place] [address] [place] Neutrophils/100 WBC (Bld) 49.0 % Normal [facility] Comment on above: Order Comment: Speci men Type: BLOOD SPECIMENOrdering Facility: [facility] Address: [address] [place] [address] Performed By: #### 5 7021-8 ####[facility] [id number] [place] [address] [place] Nucleated RBC (Bld) [#/Vol] 10*3/uL Normal <0.01 [facility] Comment on above: Order Comment: Speci men Type: BLOOD SPECIMENOrdering Facility: [facility] Address: [address] [place] [address] Performed By: #### 5 7021-8 ####[facility] LUIGI [id number] [place] [address] [place] Nucleated RBC/100 WBC (Bld) [Ratio] 0.0 /[address] [facility] Comment on above: Order Comment: Speci men Type: BLOOD SPECIMENOrdering Facility: [facility] Address: [address] [place] [address] Performed By: #### 5 7021-8 ####[facility] ALISAGREENFIELDNCDEMETRIO [id number] [place] [address] [place] Platelet mean volume (Bld) [Entitic vol] 8.7 fL Low 9.0-12.7 [facility] Comment on above: Order Comment: Speci men Type: BLOOD SPECIMENOrdering Facility: [facility] Address: [address] [place] [address] Performed By: #### 5 7021-8 ####[facility] ALISAGREENFIELDNCOPALA [id number] [place] [address] [place] Platelets (Bld) [#/Vol] 250 10*3/uL Normal 150-400 [facility] Comment on above: Order Comment: Speci men Type: BLOOD SPECIMENOrdering Facility: [facility] Address: [address] [place] [address] Performed By: #### 5 7021-8 ####[facility] PARKNCL[facility] [id number] [place] [address] [place] RBC (Bld) [#/Vol] 3.89 10*6/uL Low 3.90-5.20 [facility] Comment on above: Order Comment: Speci men Type: BLOOD SPECIMENOrdering Facility: [facility] Address: [address] [place] [address] Performed By: #### 5 7021-8 ####[facility] PARKNCLIA [id number] [place] [address] [place] WBC (Bld) [#/Vol] 2.86 10*3/uL Low 3.70-11.00 [facility] Comment on above: Order Comment: Speci men Type: BLOOD SPECIMENOrdering Facility: [facility] Address: [address] [place] [address] Performed By: #### 5 7021-8 ####[facility] PARKNCA [id number] [place] [address] [place] CNOVSPon 06-08-[address] [facility] Cancer Ag125 SerPl-aCncon Cancer Ag 125 Qn 66 [arb'U]/mL High <39 [facility] Comment on above: Order Comment: Bekai men Type: BLOOD SPECIMENOrdering Facility: [facility] Address: [address] [place] [address] Result Comment: CA 1 25 test methodology used is the Electrochemiluminescence Immunoassay by [employer]. Results obtained with different methods or kits cannot be used interchangeably.The reference interval is based on the 95th percentile of 240 apparently healthy premenopausal and postmenopausal women. At a cutoff value of 65 U/mL, the test sensitivity to distinguish ovarian carcinoma (FIGO stage I to IV) versus benign gynecological disease is 79%, with a specificity of 82%.Reference: Cancer Antigen 125 (CA 125 II) [package insert V 1.0 [place]]. [employer], [place], [place] (July 2015) Performed By: #### 1 0334-1 ####[facility] LABCLIA [id number] [place] [address] [place] Comprehensive metabolic 2000 panelon 06-08-2024 Albumin [Mass/Vol] 4.6 g/dL Normal 3.9-4.9 [facility] Comment on above: Order Comment: Bekai men Type: BLOOD SPECIMENOrdering Facility: [facility] Address: [address] [place] [address] Performed By: #### 2 4323-8, 25134-3 ####[facility] PATRICIO MILLTOWNCLIA [id number] [place] [address] [place] ALP [Catalytic activity/Vol] 93 U/L Normal 34-123 [facility] Comment on above: Order Comment: Speci men Type: BLOOD SPECIMENOrdering Facility: [facility] Address: [address] [place] [address] Performed By: #### 2 4323-8, ####[facility] MILLTOWNCLIA [id number] [place] [address] [place] ALT [Catalytic activity/Vol] 17 U/L Normal 7-38 [facility] Comment on above: Order Comment: Speci men Type: BLOOD SPECIMENOrdering Facility: [facility] Address: [address] [place] [address] Performed By: #### 2 4323-8, ####[facility] MILLWNCLIA [id number] [place] [address] [place] Anion gap [Moles/Vol] 13 mmol/L Normal 8-15 [facility] Comment on above: Order Comment: Speci men Type: BLOOD SPECIMENOrdering Facility: [facility] Address: [address] [place] [address] Performed By: #### 2 4323-8, ####[facility] MILLTOWNCLIA [id number] [place] [address] [place] AST [Catalytic activity/Vol] 16 U/L Normal 13-35 [facility] Comment on above: Order Comment: Speci men Type: BLOOD SPECIMENOrdering Facility: [facility] Address: [address] [place] [address] Performed By: #### 2 4323-8, ####[facility] PARKIGGYLIA [id number] [place] [address] [place] Bilirubin [Mass/Vol] 0.2 mg/dL Normal 0.2-1.3 [facility] Comment on above: Order Comment: Speci men Type: BLOOD SPECIMENOrdering Facility: [facility] Address: [address] [place] [address] Performed By: #### 2 4323-8, ####[facility] MILLTOWNCLIA [id number] [place] [address] [place] Calcium [Mass/Vol] 10.3 mg/dL High 8.5-10.2 [facility] Comment on above: Order Comment: Speci men Type: BLOOD SPECIMENOrdering Facility: [facility] Address: [address] [place] [address] Performed By: #### 2 4323-8, ####[facility] MILLTOWNCLIA [id number] [place] [address] [place] Chloride [Moles/Vol] 102 mmol/L Normal 98-107 [facility] Comment on above: Order Comment: Speci men Type: BLOOD SPECIMENOrdering Facility: [facility] Address: [address] [place] [address] Performed By: #### 2 4323-8, ####[facility] MILLTOWNCLIA [id number] [place] [address] [place] CO2 [Moles/Vol] 24 mmol/L Normal 22-30 [facility] Comment on above: Order Comment: Speci men Type: BLOOD SPECIMENOrdering Facility: [facility] Address: [address] [place] [address] Performed By: #### 2 4323-8, ####[facility] MILLTOWNCLIA [id number] [place] [address] [place] Creatinine [Mass/Vol] 0.83 mg/dL Normal 0.58-0.96 [facility] Comment on above: Order Comment: Cheng cooley Type: BLOOD SPECIMENOrdering Facility: [facility] Address: [address] [place] [address] Performed By: #### 2 4323-8, ####[facility] [id number] [place] [address] [place] Creatinine and Glomerular filtration rate.predicted panel (S/P/Bld) 75 mL/min/1.73m??? Normal >=60 [facility] Comment on above: Order Comment: Cheng cooley Type: BLOOD SPECIMENOrdering Facility: [facility] Address: [address] [place] [address] Result Comment: Ethel mated Glomerular Filtration Rate (eGFR) is calculated using the 2020 CKD-EPI creatinine equation. This equation utilizes serum creatinine, sex, and age as parameters. The creatinine assay has traceable calibration to isotope dilution-mass spectrometry. Refer to KDIGO guidelines for clinical interpretation. In patients with unstable renal function, e.g. those with acute kidney injury, the eGFR may not accurately reflect actual GFR. Performed By: #### 2 4323-8, ####[facility] [id number] [place] [address] [place] Glucose [Mass/Vol] 86 mg/dL Normal 74-99 [facility] Comment on above: Order Comment: Cheng cooley Type: BLOOD SPECIMENOrdering Facility: [facility] Address: [address] [place] [address] Result Comment: The [place] Diabetes Association (ADA) provides guidance for cutoff values for fasting glucose and random glucose. The ADA defines fasting as no caloric intake for at least 8 hours. Fasting plasma glucose results between 100 to 125 mg/dL indicate increased risk for diabetes (prediabetes).Fasting plasma glucose results greater than or equal to 126 mg/dL meet the criteria for diagnosis of diabetes. In the absence of unequivocal hyperglycemia, results should be confirmed by repeat testing. In a patient with classic symptoms of hyperglycemia or hyperglycemic crisis, random plasma glucose results greater than or equal to 200 mg/dL meet the criteria for diagnosis of diabetes.Reference: Standards of Medical Care in Diabetes 2016, [place] [employer]. Diabetes Care. 2016.39(Suppl 1). Performed By: #### 2 4323-8, ####[facility] [id number] [place] [address] [place] Potassium [Moles/Vol] 3.8 mmol/L Normal 3.7-5.1 [facility] Comment on above: Order Comment: Speci men Type: BLOOD SPECIMENOrdering Facility: [facility] Address: [address] [place], [place] [address] Performed By: #### 2 432-8, ####[facility] [id number] [place] [address] [place] Protein [Mass/Vol] 7.3 g/dL Normal 6.3-8.0 [facility] Comment on above: Order Comment: Speci men Type: BLOOD SPECIMENOrdering Facility: [facility] Address: [address] [place], [place] [address] Performed By: #### 2 432-8, ####[facility] [id number] [place] [address] [place] Sodium [Moles/Vol] 139 mmol/L Normal 136-144 [facility] Comment on above: Order Comment: Speci men Type: BLOOD SPECIMENOrdering Facility: [facility] Address: [address] [place] [address] Performed By: #### 2 4323-8, ####[facility] PARKNCLIA [id number] [place] [address] [place] Urea nitrogen [Mass/Vol] 18 mg/dL Normal 7-21 [facility] Comment on above: Order Comment: Speci men Type: BLOOD SPECIMENOrdering Facility: [facility] Address: [address] [place] [address] Performed By: #### 2 4323-8, 50800-7 ####[facility] SUNDARJULIUSLIA [id number] [place] [address] [place] SARAH Magnesium SerPl-mCncon 06-08 Magnesium [Mass/Vol] 2.1 mg/dL Normal 1.7-2.3 [facility] Comment on above: Order Comment: Speci men Type: BLOOD SPECIMENOrdering Facility: [facility] Address: [address] [place] [address] Performed By: #### 2 4323-8, 47372-1 ####[facility] PARKNCOPALA [id number] [place] [address] [place] CNPNon 05-29-[address] [facility] CNPNon 05-25-[address] [facility] CNPNon 05-19-[address] [facility] CBC W Auto Differential pane l (Bld)on 05-18-2024 Basophils (Bld) [#/Vol] 0.04 10*3/uL Normal <0.11 [facility] Comment on above: Order Comment: Speci men Type: BLOOD SPECIMENOrdering Facility: [facility] Address: [address] [place] [address] Performed By: #### 5 7021-8 ####[facility] MILLGREENFIELDIGGYLIA [id number] [place] [address] [place] Basophils/100 WBC (Bld) 0.8 % Normal [facility] Comment on above: Order Comment: Speci men Type: BLOOD SPECIMENOrdering Facility: [facility] Address: [address] [place] [address] Performed By: #### 5 7021-8 ####[facility] ALISAGREENFIELDIGGYLIA [id number] [place] [address] [place] Differential cell count method Nom (Bld) Auto Normal [facility] Comment on above: Order Comment: Speci men Type: BLOOD SPECIMENOrdering Facility: [facility] Address: [address] [place] [address] Performed By: #### 5 7021-8 ####[facility] [id number] [place] [address] [place] Eosinophils (Bld) [#/Vol] 0.03 10*3/uL Normal <0.46 [facility] Comment on above: Order Comment: Speci men Type: BLOOD SPECIMENOrdering Facility: [facility] Address: [address] [place] [address] Performed By: #### 5 7021-8 ####[facility] [id number] [place] [address] [place] Eosinophils/100 WBC (Bld) 0.6 % Normal [facility] Comment on above: Order Comment: Speci men Type: BLOOD SPECIMENOrdering Facility: [facility] Address: [address] [place] [address] Performed By: #### 5 7021-8 ####[facility] [id number] [place] [address] [place] Erythrocyte distribution width (RBC) [Ratio] 15.8 % High 11.5-15.0 [facility] Comment on above: Order Comment: Speci men Type: BLOOD SPECIMENOrdering Facility: [facility] Address: [address] [place] [address] Performed By: #### 5 7021-8 ####[facility] [id number] [place] [address] [place] Hematocrit (Bld) [Volume fraction] 33.1 % Low 36.0-46.0 [facility] Comment on above: Order Comment: Speci men Type: BLOOD SPECIMENOrdering Facility: [facility] Address: [address] [place] [address] Performed By: #### 5 7021-8 ####[facility] PARKIGGYBLUE MOUNT[facility], [facility] [id number] [place] [address] [place] Hemoglobin (Bld) [Mass/Vol] 10.6 g/dL Low 11.5-15.5 [facility] Comment on above: Order Comment: Speci men Type: BLOOD SPECIMENOrdering Facility: [facility] Address: [address] [place] [address] Performed By: #### 5 7021-8 ####[facility] [id number] [place] [address] [place] Immature granulocytes (Bld) [#/Vol] 10*3/uL Normal <0.10 [facility] Comment on above: Order Comment: Speci men Type: BLOOD SPECIMENOrdering Facility: [facility] Address: [address] [place] [address] Performed By: #### 5 7021-8 ####[facility] [id number] [place] [address] [place] Immature granulocytes/100 WBC (Bld) 0.4 % Normal [facility] Comment on above: Order Comment: Speci men Type: BLOOD SPECIMENOrdering Facility: [facility] Address: [address] [place] [address] Performed By: #### 5 7021-8 ####[facility] HOSPITALLIA [id number] [place] [address] [place] Lymphocytes (Bld) [#/Vol] 0.91 10*3/uL Low 1.00-4.00 [facility] Comment on above: Order Comment: Speci men Type: BLOOD SPECIMENOrdering Facility: [facility] Address: [address] [place] [address] Performed By: #### 5 7021-8 ####[facility] MILLWNCLIA [id number] [place] [address] [place] Lymphocytes/100 WBC (Bld) 18.3 % Normal [facility] Comment on above: Order Comment: Speci men Type: BLOOD SPECIMENOrdering Facility: [facility] Address: [address] [place] [address] Performed By: #### 5 7021-8 ####[facility] PARKIGGYLIA [id number] [place] [address] [place] MCH (RBC) [Entitic mass] 27.8 pg Normal 26.0-34.0 [facility] Comment on above: Order Comment: Speci men Type: BLOOD SPECIMENOrdering Facility: [facility] Address: [address] [place] [address] Performed By: #### 5 7021-8 ####[facility] PARKIGGYLIA [id number] [place] [address] [place] MCHC (RBC) [Mass/Vol] 32.0 g/dL Normal 30.5-36.0 [facility] Comment on above: Order Comment: Speci men Type: BLOOD SPECIMENOrdering Facility: [facility] Address: [address] [place] [address] Performed By: #### 5 7021-8 ####[facility]OSPITALLIA [id number] [place] [address] [place] MCV (RBC) [Entitic vol] 86.9 fL Normal 80.0-100.0 [facility] Comment on above: Order Comment: Speci men Type: BLOOD SPECIMENOrdering Facility: [facility] Address: [address] [place] [address] Performed By: #### 5 7021-8 ####[facility] PARKNCLIA [id number] [place] [address] [place] Monocytes (Bld) [#/Vol] 0.64 10*3/uL Normal <0.87 [facility] Comment on above: Order Comment: Speci men Type: BLOOD SPECIMENOrdering Facility: [facility] Address: [address] [place] [address] Performed By: #### 5 7021-8 ####[facility]PITALL[facility] [id number] [place] [address] [place] Monocytes/100 WBC (Bld) 12.9 % Normal [facility] Comment on above: Order Comment: Speci men Type: BLOOD SPECIMENOrdering Facility: [facility] Address: [address] [place] [address] Performed By: #### 5 7021-8 ####[facility] [id number] [place] [address] [place] Neutrophils (Bld) [#/Vol] 3.32 10*3/uL Normal 1.45-7.50 [facility] Comment on above: Order Comment: Speci men Type: BLOOD SPECIMENOrdering Facility: [facility] Address: [address] [place] [address] Performed By: #### 5 7021-8 ####[facility] [id number] [place] [address] [place] Neutrophils/100 WBC (Bld) 67.0 % Normal [facility] Comment on above: Order Comment: Speci men Type: BLOOD SPECIMENOrdering Facility: [facility] Address: [address] [place] [address] Performed By: #### 5 7021-8 ####[facility] [id number] [place] [address] [place] Nucleated RBC (Bld) [#/Vol] 10*3/uL Normal <0.01 [facility] Comment on above: Order Comment: Speci men Type: BLOOD SPECIMENOrdering Facility: [facility] Address: [address] [place] [address] Performed By: #### 5 7021-8 ####[facility] LUIGI [id number] [place] [address] [place] Nucleated RBC/100 WBC (Bld) [Ratio] 0.0 /[address] [facility] Comment on above: Order Comment: Speci men Type: BLOOD SPECIMENOrdering Facility: [facility] Address: [address] [place] [address] Performed By: #### 5 7021-8 ####[facility] PARKNCDEMETRIO [id number] [place] [address] [place] Platelet mean volume (Bld) [Entitic vol] 8.3 fL Low 9.0-12.7 [facility] Comment on above: Order Comment: Speci men Type: BLOOD SPECIMENOrdering Facility: [facility] Address: [address] [place] [address] Performed By: #### 5 7021-8 ####[facility] PARKIGGYA [id number] [place] [address] [place] Platelets (Bld) [#/Vol] 299 10*3/uL Normal 150-400 [facility] Comment on above: Order Comment: Speci men Type: BLOOD SPECIMENOrdering Facility: [facility] Address: [address] [place] [address] Performed By: #### 5 7021-8 ####[facility]ALL[facility] [id number] [place] [address] [place] RBC (Bld) [#/Vol] 3.81 10*6/uL Low 3.90-5.20 [facility] Comment on above: Order Comment: Speci men Type: BLOOD SPECIMENOrdering Facility: [facility] Address: [address] [place] [address] Performed By: #### 5 7021-8 ####[facility]OSPITALWNCLIA [id number] [place] [address] [place] WBC (Bld) [#/Vol] 4.96 10*3/uL Normal 3.70-11.00 [facility] Comment on above: Order Comment: Speci men Type: BLOOD SPECIMENOrdering Facility: [facility] Address: [address] [place] [address] Performed By: #### 5 7021-8 ####[facility] PARKNCLIA [id number] [place] [address] [place] CNCNPATEDon 05-18-[address] [facility] CNOVSPon 05-18-[address] [facility] CNPNon 05-18-[address] [facility] Cancer Ag125 SerPl-aCncon Cancer Ag 125 Qn 177 [arb'U]/mL High <39 [facility] Comment on above: Order Comment: Speci men Type: BLOOD SPECIMENOrdering Facility: [facility] Address: [address] [place] [address] Result Comment: CA 1 25 test methodology used is the Electrochemiluminescence Immunoassay by [employer]. Results obtained with different methods or kits cannot be used interchangeably.The reference interval is based on the 95th percentile of 240 apparently healthy premenopausal and postmenopausal women. At a cutoff value of 65 U/mL, the test sensitivity to distinguish ovarian carcinoma (FIGO stage I to IV) versus benign gynecological disease is 79%, with a specificity of 82%.Reference: Cancer Antigen 125 (CA 125 II) [package insert V 1.0 [place]]. [employer], [place], [place] (July 2015) Performed By: #### 1 0334-1 ####[facility] LABCLIA [id number] [place] [address] [place] Comprehensive metabolic 2000 panelon 05-18-2024 Albumin [Mass/Vol] 4.2 g/dL Normal 3.9-4.9 [facility] Comment on above: Order Comment: Speci men Type: BLOOD SPECIMENOrdering Facility: [facility] Address: [address] [place] [address] Performed By: #### 2 4323-8, ####[facility] PATRICIO SUNDARWNCLIA [id number] [place] [address] [place] ALP [Catalytic activity/Vol] 111 U/L Normal 34-123 [facility] Comment on above: Order Comment: Speci men Type: BLOOD SPECIMENOrdering Facility: [facility] Address: [address] [place] [address] Performed By: #### 2 4323-8, ####[facility] ALISAEDGARWNCLIA [id number] [place] [address] [place] ALT [Catalytic activity/Vol] 12 U/L Normal 7-38 [facility] Comment on above: Order Comment: Speci men Type: BLOOD SPECIMENOrdering Facility: [facility] Address: [address] [place] [address] Performed By: #### 2 4323-8, ####[facility] ALISAEDGARWNCOPALA [id number] [place] [address] [place] Anion gap [Moles/Vol] 12 mmol/L Normal 8-15 [facility] Comment on above: Order Comment: Speci men Type: BLOOD SPECIMENOrdering Facility: [facility] Address: [address] [place] [address] Performed By: #### 2 4323-8, ####[facility]OSPITALWNCLIA [id number] [place] [address] [place] AST [Catalytic activity/Vol] 14 U/L Normal 13-35 [facility] Comment on above: Order Comment: Speci men Type: BLOOD SPECIMENOrdering Facility: [facility] Address: [address] [place] [address] Performed By: #### 2 4323-8, ####[facility] PATRICIO MILLTOWNCLIA [id number] [place] [address] [place] Bilirubin [Mass/Vol] mg/dL Low 0.2-1.3 [facility] Comment on above: Order Comment: Speci men Type: BLOOD SPECIMENOrdering Facility: [facility] Address: [address] [place] [address] Performed By: #### 2 432-8, ####[facility] MILLTOWNCLIA [id number] [place] [address] [place] Calcium [Mass/Vol] 9.6 mg/dL Normal 8.5-10.2 [facility] Comment on above: Order Comment: Speci men Type: BLOOD SPECIMENOrdering Facility: [facility] Address: [address] [place] [address] Performed By: #### 2 4328, ####[facility] MILLTOWNCLIA [id number] [place] [address] [place] Chloride [Moles/Vol] 102 mmol/L Normal 98-107 [facility] Comment on above: Order Comment: Speci men Type: BLOOD SPECIMENOrdering Facility: [facility] Address: [address] [place] [address] Performed By: #### 2 4328, ####[facility] MILLTOWNCLIA [id number] [place] [address] [place] CO2 [Moles/Vol] 25 mmol/L Normal 22-30 [facility] Comment on above: Order Comment: Speci men Type: BLOOD SPECIMENOrdering Facility: [facility] Address: [address] [place] [address] Performed By: #### 2 4323-8, ####[facility]ENTERNCBL[facility] [id number] [place] [address] [place] Creatinine [Mass/Vol] 0.84 mg/dL Normal 0.58-0.96 [facility] Comment on above: Order Comment: Cheng cooley Type: BLOOD SPECIMENOrdering Facility: [facility] Address: [address] [place] [address] Performed By: #### 2 4323-8, ####[facility] [id number] [place] [address] [place] Creatinine and Glomerular filtration rate.predicted panel (S/P/Bld) 74 mL/min/1.73m??? Normal >=60 [facility] Comment on above: Order Comment: Cheng cooley Type: BLOOD SPECIMENOrdering Facility: [facility] Address: [address] [place] [address] Result Comment: Ethel mated Glomerular Filtration Rate (eGFR) is calculated using the 2020 CKD-EPI creatinine equation. This equation utilizes serum creatinine, sex, and age as parameters. The creatinine assay has traceable calibration to isotope dilution-mass spectrometry. Refer to KDIGO guidelines for clinical interpretation. In patients with unstable renal function, e.g. those with acute kidney injury, the eGFR may not accurately reflect actual GFR. Performed By: #### 2 4323-8, ####[facility] [id number] [place] [address] [place] Glucose [Mass/Vol] 87 mg/dL Normal 74-99 [facility] Comment on above: Order Comment: Cheng cooley Type: BLOOD SPECIMENOrdering Facility: [facility] Address: [address] [id number] Result Comment: The [place] Diabetes Association (ADA) provides guidance for cutoff values for fasting glucose and random glucose. The ADA defines fasting as no caloric intake for at least 8 hours. Fasting plasma glucose results between 100 to 125 mg/dL indicate increased risk for diabetes (prediabetes).Fasting plasma glucose results greater than or equal to 126 mg/dL meet the criteria for diagnosis of diabetes. In the absence of unequivocal hyperglycemia, results should be confirmed by repeat testing. In a patient with classic symptoms of hyperglycemia or hyperglycemic crisis, random plasma glucose results greater than or equal to 200 mg/dL meet the criteria for diagnosis of diabetes.Reference: Standards of Medical Care in Diabetes 2016, [place] [employer] Association. Diabetes Care. 2016.39(Suppl 1). Performed By: #### 2 4323-8, ####[facility] MILLTOWIGGYLIA [id number] [place] [address] [place] Potassium [Moles/Vol] 3.7 mmol/L Normal 3.7-5.1 [facility] Comment on above: Order Comment: Speci men Type: BLOOD SPECIMENOrdering Facility: [facility] Address: [address] [place] [address] Performed By: #### 2 4323-8, ####[facility] PARKIGGYLIBoo [id number] [place] [address] [place] Protein [Mass/Vol] 7.2 g/dL Normal 6.3-8.0 [facility] Comment on above: Order Comment: Speci men Type: BLOOD SPECIMENOrdering Facility: [facility] Address: [address] [place] [address] Performed By: #### 2 4323-8, ####[facility]OSPITALLIA [id number] [place] [address] [place] Sodium [Moles/Vol] 139 mmol/L Normal 136-144 [facility] Comment on above: Order Comment: Speci men Type: BLOOD SPECIMENOrdering Facility: [facility] Address: [address] [place] [address] Performed By: #### 2 4323-8, ####[facility] HOSPITALWNCLIA [id number] [place] [address] [place] Urea nitrogen [Mass/Vol] 21 mg/dL Normal 7-21 [facility] Comment on above: Order Comment: Speci men Type: BLOOD SPECIMENOrdering Facility: [facility] Address: [address] [place] [address] Performed By: #### 2 4323-8, 89041-7 ####[facility] ALISARomeliaNCLIA [id number] [place] [address] [place] Magnesium SerPl-mCncon 05-18 Magnesium [Mass/Vol] 1.9 mg/dL Normal 1.7-2.3 [facility] Comment on above: Order Comment: Speci men Type: BLOOD SPECIMENOrdering Facility: [facility] Address: [address] [place] [address] Performed By: #### 2 4323-8, 00789-5 ####[facility] PARKNCA [id number] [place] [address] [place] Urinalysis complete panel (U )on 05-18-2024 Bacteria LM.HPF (Urine sed) [#/Area] Negative Normal Negative [facility] Comment on above: Order Comment: Speci men Type: URINE SPECIMENOrdering Facility: [facility] Address: [address] [place] [address] Performed By: #### 2 4356-8 ####[facility] LABCLIA [id number] [place] [address] [place] Bilirubin Ql (U) Negative Normal Negative [facility] Comment on above: Order Comment: Speci men Type: URINE SPECIMENOrdering Facility: [facility] Address: [address] [place] [address] Performed By: #### 2 4356-8 ####[facility] LABCLIA [id number] [place] [address] [place] Clarity (Unsp spec) Cloudy Abnormal Clear [facility] Comment on above: Order Comment: Speci men Type: URINE SPECIMENOrdering Facility: [facility] Address: [address] [place] [address] Performed By: #### 2 4356-8 ####[facility] LABCLIA [id number] [place] [address] [place] Color (U) Yellow Normal Yellow [facility] Comment on above: Order Comment: Speci men Type: URINE SPECIMENOrdering Facility: [facility] Address: [address] [place] [address] Performed By: #### 2 4356-8 ####[facility] LABCLIA [id number] [place] [address] [place] Epithelial cells LM.HPF (Urine sed) [#/Area] Moderate Normal [facility] Comment on above: Order Comment: Speci men Type: URINE SPECIMENOrdering Facility: [facility] Address: [address] [place] [address] Result Comment: Few Performed By: #### 2 4356-8 ####[facility] LABCLIA [id number] [place] [address] [place] Glucose Test strip (U) [Mass/Vol] Negative Normal Negative [facility] Comment on above: Order Comment: Speci men Type: URINE SPECIMENOrdering Facility: [facility] Address: [address] [place] [address] Performed By: #### 2 4356-8 ####[facility] LABCLIA [id number] [place] [address] [place] Hemoglobin Ql (U) Negative Normal Negative [facility] Comment on above: Order Comment: Speci men Type: URINE SPECIMENOrdering Facility: [facility] Address: [address] [place] [address] Performed By: #### 2 4356-8 ####[facility] LABCLIA [id number] [place] [address] [place] Hyaline casts (Urine sed) [#/Area] 1-3 /LPF Abnormal 0 /LPF [facility] Comment on above: Order Comment: Speci men Type: URINE SPECIMENOrdering Facility: [facility] Address: [address] [place] [address] Performed By: #### 2 4356-8 ####[facility] LABCLIA [id number] [place] [address] [place] Ketones Ql (U) Negative Normal Negative [facility] Comment on above: Order Comment: Speci men Type: URINE SPECIMENOrdering Facility: [facility] Address: [address] [place] [address] Performed By: #### 2 4356-8 ####[facility] LABCLIA [id number] [place] [address] [place] Leukocyte esterase Test strip Ql (U) Negative Normal Negative [facility] Comment on above: Order Comment: Speci men Type: URINE SPECIMENOrdering Facility: [facility] Address: [address] [place] [address] Performed By: #### 2 4356-8 ####[facility] LABCLIA [id number] [place] [address] [place] Nitrite Ql (U) Negative Normal Negative [facility] Comment on above: Order Comment: Speci men Type: URINE SPECIMENOrdering Facility: [facility] Address: [address] [place] [address] Performed By: #### 2 4356-8 ####[facility] LABCLIA [id number] [place] [address] [place] pH (U) 7.0 [pH] Normal <8.5 [facility] Comment on above: Order Comment: Speci men Type: URINE SPECIMENOrdering Facility: [facility] Address: [address] [place] [address] Performed By: #### 2 4356-8 ####[facility] LABCLIA [id number] [place] [address] [place] Protein (U) [Mass/Vol] Trace Abnormal Negative [facility] Comment on above: Order Comment: Speci men Type: URINE SPECIMENOrdering Facility: [facility] Address: [address] [place] [address] Performed By: #### 2 4356-8 ####[facility] LABCLIA [id number] [place] [address] [place] RBC LM.HPF (Urine sed) [#/Area] 0-2 /HPF Normal 0-2 /HPF [facility] Comment on above: Order Comment: Speci men Type: URINE SPECIMENOrdering Facility: [facility] Address: [address] [place] [address] Performed By: #### 2 4356-8 ####[facility] LABIA [id number] [place] [address] [place] Specific gravity (U) [Rel density] 1.014 Normal 1.005-1.030 [facility] Comment on above: Order Comment: Speci men Type: URINE SPECIMENOrdering Facility: [facility] Address: [address] [place] [address] Performed By: #### 2 4356-8 ####[facility] LABIA [id number] [place] [address] [place] Urobilinogen Ql (U) 0.2 EU/dL Normal 0.2-1.0 EU/dL [facility] Comment on above: Order Comment: Speci men Type: URINE SPECIMENOrdering Facility: [facility] Address: [address] [place] [address] Performed By: #### 2 4356-8 ####[facility] LABCLIA [id number] [place] [address] [place] WBC LM.HPF (Urine sed) [#/Area] 0-5 /HPF Normal 0-5 /HPF [facility] Comment on above: Order Comment: Speci men Type: URINE SPECIMENOrdering Facility: [facility] Address: [address] [place] [address] Performed By: #### 2 4356-8 ####[facility] LABCLIA [id number] [place] [address] [place] CNPNon 05-14-[address] [facility] CNPNon 05-10-[address] [facility] Bacteria identified Cx Nom ( U)Ordered By: Nohemi Parra on 05-02-2024 [facility] URINE CULTUREOrdered By: Holly Parra on 05-02-2024 Bacteria identified Cx Nom (U) <10,000 CFU/ml Normal urogenital vladimir [facility] Bacteria Ur Culton Bacteria identified Cx Nom (U) ORGANISM ID: 1 <10,000 CFU/ml Normal urogenital vladimir Normal [facility] Comment on above: Performed By: #### 6 30-4 ####[facility] LABCLIA [id number] [place] [address] [place] Urinalysis complete panel (U )on 05-01-2024 Bacteria LM.HPF (Urine sed) [#/Area] Negative Negative /HPF [facility] Bilirubin Ql (U) Negative Negative [facility] Clarity (Unsp spec) Cloudy Abnormal Clear [facility] Color (U) Red Abnormal Yellow [facility] Epithelial cells LM.HPF (Urine sed) [#/Area] None Seen /HPF [facility] Glucose Test strip (U) [Mass/Vol] Negative Negative [facility] Hemoglobin Ql (U) 3+ Abnormal Negative [facility] Hyaline casts (Urine sed) [#/Area] 1-3 /LPF Abnormal 0 /LPF [facility] Interpretation and review of laboratory results Abnormal [facility] Ketones Ql (U) Negative Negative [facility] Leukocyte esterase Test strip Ql (U) Trace [facility]normal [facility] Nitrite Ql (U) Negative Negative [facility] pH (U) 6.5 [pH] NINF - 8.5 [facility] Protein (U) [Mass/Vol] 1+ Abnormal Negative [facility] RBC LM.HPF (Urine sed) [#/Area] /[HPF] Abnormal 0-2 /HPF [facility] Specific gravity (U) [Rel density] 1.009 1.005 - 1.030 [facility] Urobilinogen Ql (U) 0.2 EU/dL 0.2-1.0 EU/dL [facility] WBC LM.HPF (Urine sed) [#/Area] 0-5 /HPF 0-5 /HPF [facility] Result rechecked Questionable urine chemistry results This test was developed and its performance characteristics determined by [facility]'s [facility] [place] [facility] It has not been cleared or approved by the FDA. -[facility] is regulated under CLIA as qualified to perform high-complexity testing. This test is used for clinical purposes. It should not be regarded as investigational or for research. [facility] Bacteria LM.HPF (Urine sed) [#/Area] Negative Normal Negative [facility] Comment on above: Order Comment: Speci men Type: URINE SPECIMENOrdering Facility: [facility] Address: [address] [place] [address] Performed By: #### 2 4356-8 ####[facility] H[facility]PITALIA [id number] [place] [address] [place] Bilirubin Ql (U) Negative Normal Negative [facility] Comment on above: Order Comment: Speci men Type: URINE SPECIMENOrdering Facility: [facility] Address: [address] [place] [address] Performed By: #### 2 4356-8 ####[facility] LABCLIA [id number] [place] [address] [place] Clarity (Unsp spec) Cloudy Abnormal Clear [facility] Comment on above: Order Comment: Speci men Type: URINE SPECIMENOrdering Facility: [facility] Address: [address] [place] [address] Performed By: #### 2 4356-8 ####[facility] LABIA [id number] [place] [address] [place] Color (U) Red Abnormal Yellow [facility] Comment on above: Order Comment: Speci men Type: URINE SPECIMENOrdering Facility: [facility] Address: [address] [place] [address] Performed By: #### 2 4356-8 ####[facility] LABCLIA [id number] [place] [address] [place] Epithelial cells LM.HPF (Urine sed) [#/Area] None Seen Normal [facility] Comment on above: Order Comment: Speci men Type: URINE SPECIMENOrdering Facility: [facility] Address: [address] [place] [address] Performed By: #### 2 4356-8 ####[facility] LABCLIA [id number] [place] [address] [place] Glucose Test strip (U) [Mass/Vol] Negative Normal Negative [facility] Comment on above: Order Comment: Speci men Type: URINE SPECIMENOrdering Facility: [facility] Address: [address] [place] [address] Performed By: #### 2 4356-8 ####[facility] LABCLIA [id number] [place] [address] [place] Hemoglobin Ql (U) 3+ Abnormal Negative [facility] Comment on above: Order Comment: Speci men Type: URINE SPECIMENOrdering Facility: [facility] Address: [address] [place] [address] Performed By: #### 2 4356-8 ####[facility] LABCLIA [id number] [place] [address] [place] Hyaline casts (Urine sed) [#/Area] 1-3 /LPF Abnormal 0 /LPF [facility] Comment on above: Order Comment: Speci men Type: URINE SPECIMENOrdering Facility: [facility] Address: [address] [place] [address] Performed By: #### 2 4356-8 ####[facility] LABCLIA [id number] [place] [address] [place] Ketones Ql (U) Negative Normal Negative [facility] Comment on above: Order Comment: Speci men Type: URINE SPECIMENOrdering Facility: [facility] Address: [address] [place] [address] Performed By: #### 2 4356-8 ####[facility] LABCLIA [id number] [place] [address] [place] Leukocyte esterase Test strip Ql (U) Trace Abnormal Negative [facility] Comment on above: Order Comment: Speci men Type: URINE SPECIMENOrdering Facility: [facility] Address: [address] [place] [address] Performed By: #### 2 4356-8 ####[facility] LABCLIA [id number] [place] [address] [place] Nitrite Ql (U) Negative Normal Negative [facility] Comment on above: Order Comment: Speci men Type: URINE SPECIMENOrdering Facility: [facility] Address: [address] [place] [address] Performed By: #### 2 4356-8 ####[facility] LABCLIA [id number] [place] [address] [place] pH (U) 6.5 [pH] Normal <8.5 [facility] Comment on above: Order Comment: Speci men Type: URINE SPECIMENOrdering Facility: [facility] Address: [address] [place] [address] Performed By: #### 2 4356-8 ####[facility] LABCLIA [id number] [place] [address] [place] Protein (U) [Mass/Vol] 1+ Abnormal Negative [facility] Comment on above: Order Comment: Speci men Type: URINE SPECIMENOrdering Facility: [facility] Address: [address] [place] [address] Performed By: #### 2 4356-8 ####[facility] LABIA [id number] [place] [address] [place] RBC LM.HPF (Urine sed) [#/Area] /[HPF] Abnormal 0-2 /HPF [facility] Comment on above: Order Comment: Speci men Type: URINE SPECIMENOrdering Facility: [facility] Address: [address] [place] [address] Performed By: #### 2 4356-8 ####[facility] LABIA [id number] [place] [address] [place] Specific gravity (U) [Rel density] 1.009 Normal 1.005-1.030 [facility] Comment on above: Order Comment: Speci men Type: URINE SPECIMENOrdering Facility: [facility] Address: [address] [place] [address] Performed By: #### 2 4356-8 ####[facility] LABIA [id number] [place] [address] [place] Urobilinogen Ql (U) 0.2 EU/dL Normal 0.2-1.0 EU/dL [facility] Comment on above: Order Comment: Speci men Type: URINE SPECIMENOrdering Facility: [facility] Address: [address] [place] [address] Performed By: #### 2 4356-8 ####[facility] LABIA [id number] [place] [address] [place] WBC LM.HPF (Urine sed) [#/Area] 0-5 /HPF Normal 0-5 /HPF [facility] Comment on above: Order Comment: Speci men Type: URINE SPECIMENOrdering Facility: [facility] Address: [address] [place] [address] Performed By: #### 2 4356-8 ####[facility] LABIA [id number] [address] [address] [place] CNPNon 04-29-[address] [facility] 25(OH)D3 SerPl-mCncon 2023 25-hydroxyvitamin D3 [Mass/Vol] 37.8 ng/mL Normal 31.0-80.0 [facility] Comment on above: Order Comment: Speci men Type: BLOOD SPECIMENOrdering Facility: [facility] Address: [address] [place] [address] Performed By: #### 1 989-3 ####[facility] LABCLIA [id number] [place] [id number] [place] CBC panel Auto (Bld)on 04-28 Erythrocyte distribution width (RBC) [Ratio] 14.6 % Normal 11.5-15.0 [facility] Comment on above: Order Comment: Speci men Type: BLOOD SPECIMENOrdering Facility: [facility] Address: [address] [place] [address] Performed By: #### 5 8410-2 ####[facility]ITALWIGGYLIA [id number] [place] [address] [place] Hematocrit (Bld) [Volume fraction] 32.5 % Low 36.0-46.0 [facility] Comment on above: Order Comment: Speci men Type: BLOOD SPECIMENOrdering Facility: [facility] Address: [address] [place] [address] Performed By: #### 5 8410-2 ####[facility] MILLTOWNCLIA [id number] [place] [address] [place] Hemoglobin (Bld) [Mass/Vol] 10.6 g/dL Low 11.5-15.5 [facility] Comment on above: Order Comment: Speci men Type: BLOOD SPECIMENOrdering Facility: [facility] Address: [address] [place] [address] Performed By: #### 5 8410-2 ####[facility] [id number] [place] [address] [place] MCH (RBC) [Entitic mass] 27.8 pg Normal 26.0-34.0 [facility] Comment on above: Order Comment: Speci men Type: BLOOD SPECIMENOrdering Facility: [facility] Address: [address] [place] [address] Performed By: #### 5 8410-2 ####[facility] [id number] [place] [address] [place] MCHC (RBC) [Mass/Vol] 32.6 g/dL Normal 30.5-36.0 [facility] Comment on above: Order Comment: Speci men Type: BLOOD SPECIMENOrdering Facility: [facility] Address: [address] [place] [address] Performed By: #### 5 8410-2 ####[facility] [id number] [place] [address] [place] MCV (RBC) [Entitic vol] 85.3 fL Normal 80.0-100.0 [facility] Comment on above: Order Comment: Speci men Type: BLOOD SPECIMENOrdering Facility: [facility] Address: [address] [place] [address] Performed By: #### 5 8410-2 ####[facility] [id number] [place] [address] [place] Nucleated RBC (Bld) [#/Vol] 10*3/uL Normal <0.01 [facility] Comment on above: Order Comment: Speci men Type: BLOOD SPECIMENOrdering Facility: [facility] Address: [address] [place] [address] Performed By: #### 5 8410-2 ####[facility] [id number] [place] [address] [place] Platelet mean volume (Bld) [Entitic vol] 9.2 fL Normal 9.0-12.7 [facility] Comment on above: Order Comment: Speci men Type: BLOOD SPECIMENOrdering Facility: [facility] Address: [address] [place] [address] Performed By: #### 5 8410-2 ####[facility]ITALWNCLIA [id number] [place] [address] [place] Platelets (Bld) [#/Vol] 439 10*3/uL High 150-400 [facility] Comment on above: Order Comment: Speci men Type: BLOOD SPECIMENOrdering Facility: [facility] Address: [address] [place] [address] Performed By: #### 5 8410-2 ####[facility] PARKNCLIA [id number] [place] [address] [place] RBC (Bld) [#/Vol] 3.81 10*6/uL Low 3.90-5.20 [facility] Comment on above: Order Comment: Speci men Type: BLOOD SPECIMENOrdering Facility: [facility] Address: [address] [place] [address] Performed By: #### 5 8410-2 ####[facility] PARKNCL[facility] [id number] [place] [address] [place] WBC (Bld) [#/Vol] 6.55 10*3/uL Normal 3.70-11.00 [facility] Comment on above: Order Comment: Speci men Type: BLOOD SPECIMENOrdering Facility: [facility] Address: [address] [place] [address] Performed By: #### 5 8410-2 ####[facility] PARK[facility]CL[facility] [id number] [place] [address] [place] Comprehensive metabolic 2000 panelon 04-28-2024 Albumin [Mass/Vol] 4.0 g/dL Normal 3.9-4.9 [facility] Comment on above: Order Comment: Speci men Type: BLOOD SPECIMENOrdering Facility: [facility] Address: [address] [place] [address] Performed By: #### 2 4323-8 ####[facility]ITALWNCLIA [id number] [place] [address] [place] ALP [Catalytic activity/Vol] 114 U/L Normal 34-123 [facility] Comment on above: Order Comment: Speci men Type: BLOOD SPECIMENOrdering Facility: [facility] Address: [address] [place] [address] Performed By: #### 2 4323-8 ####[facility] MILLTOWNCLIA [id number] [place] [address] [place] ALT [Catalytic activity/Vol] 14 U/L Normal 7-38 [facility] Comment on above: Order Comment: Speci men Type: BLOOD SPECIMENOrdering Facility: [facility] Address: [address] [place] [address] Performed By: #### 2 4323-8 ####[facility] HOSPITALLIA [id number] [place] [address] [place] Anion gap [Moles/Vol] 13 mmol/L Normal 8-15 [facility] Comment on above: Order Comment: Speci men Type: BLOOD SPECIMENOrdering Facility: [facility] Address: [address] [place] [address] Performed By: #### 2 4323-8 ####[facility] MILLTOWNCLIA [id number] [place] [address] [place] AST [Catalytic activity/Vol] 13 U/L Normal 13-35 [facility] Comment on above: Order Comment: Speci men Type: BLOOD SPECIMENOrdering Facility: [facility] Address: [address] [place] [address] Performed By: #### 2 4323-8 ####[facility] MILLTOWNCLIA [id number] [place] [address] [place] Bilirubin [Mass/Vol] 0.2 mg/dL Normal 0.2-1.3 [facility] Comment on above: Order Comment: Speci men Type: BLOOD SPECIMENOrdering Facility: [facility] Address: [address] [place] [address] Performed By: #### 2 4323-8 ####[facility]ITALWNCL[facility] [id number] [place] [address] [place] Calcium [Mass/Vol] 9.1 mg/dL Normal 8.5-10.2 [facility] Comment on above: Order Comment: Speci men Type: BLOOD SPECIMENOrdering Facility: [facility] Address: [address] [place] [address] Performed By: #### 2 4323-8 ####[facility]ITALWNCLIA [id number] [place] [address] [place] Chloride [Moles/Vol] 103 mmol/L Normal 98-107 [facility] Comment on above: Order Comment: Speci men Type: BLOOD SPECIMENOrdering Facility: [facility] Address: [address] [place] [address] Performed By: #### 2 4323-8 ####[facility] MILLTOWNCLIA [id number] [place] [address] [place] CO2 [Moles/Vol] 22 mmol/L Normal 22-30 [facility] Comment on above: Order Comment: Speci men Type: BLOOD SPECIMENOrdering Facility: [facility] Address: [address] [place] [address] Performed By: #### 2 4323-8 ####[facility]ITALWNCLIA [id number] [place] [address] [place] Creatinine [Mass/Vol] 0.75 mg/dL Normal 0.58-0.96 [facility] Comment on above: Order Comment: Cheng cooley Type: BLOOD SPECIMENOrdering Facility: [facility] Address: [address] [place] [address] Performed By: #### 2 4323-8 ####[facility] [id number] [place] [address] [place] Creatinine and Glomerular filtration rate.predicted panel (S/P/Bld) 85 mL/min/1.73m??? Normal >=60 [facility] Comment on above: Order Comment: Cheng cooley Type: BLOOD SPECIMENOrdering Facility: [facility] Address: [address] [place] [address] Result Comment: Ethel mated Glomerular Filtration Rate (eGFR) is calculated using the 2020 CKD-EPI creatinine equation. This equation utilizes serum creatinine, sex, and age as parameters. The creatinine assay has traceable calibration to isotope dilution-mass spectrometry. Refer to KDIGO guidelines for clinical interpretation. In patients with unstable renal function, e.g. those with acute kidney injury, the eGFR may not accurately reflect actual GFR. Performed By: #### 2 4323-8 ####[facility] [id number] [place] [address] [place] Glucose [Mass/Vol] 261 mg/dL High 74-99 [facility] Comment on above: Order Comment: Cheng cooley Type: BLOOD SPECIMENOrdering Facility: [facility] Address: [address] [place] [address] Result Comment: The [place] Diabetes Association (ADA) provides guidance for cutoff values for fasting glucose and random glucose. The ADA defines fasting as no caloric intake for at least 8 hours. Fasting plasma glucose results between 100 to 125 mg/dL indicate increased risk for diabetes (prediabetes).Fasting plasma glucose results greater than or equal to 126 mg/dL meet the criteria for diagnosis of diabetes. In the absence of unequivocal hyperglycemia, results should be confirmed by repeat testing. In a patient with classic symptoms of hyperglycemia or hyperglycemic crisis, random plasma glucose results greater than or equal to 200 mg/dL meet the criteria for diagnosis of diabetes.Reference: Standards of Medical Care in Diabetes 2016, [place] [employer] Association. Diabetes Care. 2016.39(Suppl 1). Performed By: #### 2 4323-8 ####[facility] PATRICIO CUELLARMOLINA [id number] [place] [address] [place] Potassium [Moles/Vol] 3.8 mmol/L Normal 3.7-5.1 [facility] Comment on above: Order Comment: Speci men Type: BLOOD SPECIMENOrdering Facility: [facility] Address: [address] [place], [place] [address] Performed By: #### 2 4323-8 ####[facility] [id number] [place] [address] [place] Protein [Mass/Vol] 6.4 g/dL Normal 6.3-8.0 [facility] Comment on above: Order Comment: Speci men Type: BLOOD SPECIMENOrdering Facility: [facility] Address: [address] [place], [place] [address] Performed By: #### 2 4323-8 ####[facility] [id number] [place] [address] [place] Sodium [Moles/Vol] 138 mmol/L Normal 136-144 [facility] Comment on above: Order Comment: Speci men Type: BLOOD SPECIMENOrdering Facility: [facility] Address: [address] [place] [address] Performed By: #### 2 4323-8 ####[facility] PARKNCLIBoo [id number] [place] [address] [place] Urea nitrogen [Mass/Vol] 16 mg/dL Normal 7-21 [facility] Comment on above: Order Comment: Speci men Type: BLOOD SPECIMENOrdering Facility: [facility] Address: [address] [place] [address] Performed By: #### 2 4323-8 ####[facility] [id number] [address] OF [facility] Lipid 1996 panelon 4 Cholesterol [Mass/Vol] 183 mg/dL Normal <200 [facility] Comment on above: Order Comment: Speci men Type: BLOOD SPECIMENOrdering Facility: [facility] Address: [address] [place] [address] Result Comment: <200 mg/dL, Desirable 200-239 mg/dL, Borderline high>239 mg/dL, High Performed By: #### 2 4331-1 ####[facility] LABCLIA [id number] [address] [id number] [address] [place] Cholesterol in HDL [Mass/Vol] 61 mg/dL Normal >39 [facility] Comment on above: Order Comment: Speci men Type: BLOOD SPECIMENOrdering Facility: [facility] Address: [address] [place] [address] Result Comment: 40-5 9 mg/dL, Acceptable>59 mg/dL, High: Negative risk factor for coronary heart disease<40 mg/dL, Low: Positive risk factor for coronary heart disease Performed By: #### 2 4331-1 ####[facility] LABCLIA [id number] [address] [id number] [address] [place] Cholesterol in LDL [Mass/Vol] 106 mg/dL High <100 [facility] Comment on above: Order Comment: Speci men Type: BLOOD SPECIMENOrdering Facility: [facility] Address: [address] [place] [address] Result Comment: <100 mg/dL, Optimal 100-129 mg/dL, Near optimal/above optimal 130-159 mg/dL, Borderline high 160-189 mg/dL, High>189 mg/dL, Very highSecondary prevention optimal LDL Cholesterol levels are recommended to be < 70 mg/dL Performed By: #### 2 4331-1 ####[facility] LABCLIA [id number] [address] [id number] [place] [address] [place] Cholesterol in LDL/Cholesterol in HDL [Mass ratio] 1.74 {ratio} Normal <2.54 [facility] Comment on above: Order Comment: Speci men Type: BLOOD SPECIMENOrdering Facility: [facility] Address: [address] [place] [address] Result Comment: Lito ortiz:1. National Cholesterol Education Program ATP III Guideline At-A-Glance Quick Desk Reference: National Heart, Lung, and Blood [place]. National Institutes of Health. 2001: NIH Publication No. 01-3305.2. An International Atherosclerosis Society position paper: global recommendations for the management of dyslipidemia: executive summary, Atherosclerosis. 2014: 232(2):410-413. Performed By: #### 2 4331-1 ####[facility] LABCLIA [id number] [address] [id number] [place] [address] [place] Cholesterol in VLDL [Mass/Vol] 16 mg/dL Normal <30 [facility] Comment on above: Order Comment: Speci men Type: BLOOD SPECIMENOrdering Facility: [facility] Address: [address] [place] [address] Performed By: #### 2 4331-1 ####[facility] LABCLIA [id number] [address] [id number] [place] [address] [place] Cholesterol non HDL [Mass/Vol] 122 mg/dL Normal <130 [facility] Comment on above: Order Comment: Speci men Type: BLOOD SPECIMENOrdering Facility: [facility] Address: [facility] [place] [id number] Result Comment: <130 mg/dL, Optimal 130-159 mg/dL, Near optimal/above optimal 160-189 mg/dL, Borderline high 190-219 mg/dL, High>219 mg/dL, Very highSecondary prevention optimal non HDL Cholesterol levels are recommended to be <100 mg/dL Performed By: #### 2 4331-1 ####[facility] LABCLIA [id number] [address] [id number] [place] [address] [place] Cholesterol.total/Cho lesterol in HDL [Mass ratio] 3.00 {ratio} Normal <5.10 [facility] Comment on above: Order Comment: Speci men Type: BLOOD SPECIMENOrdering Facility: [facility] Address: [address] [place], [place] [address] Performed By: #### 2 4331-1 ####[facility] LABCLIA [id number] [address] [id number] [place] [address] [place] FASTING TIME [address] [facility] Comment on above: Order Comment: Speci men Type: BLOOD SPECIMENOrdering Facility: [facility] Address: [address] [place] [address] Performed By: #### 2 4331-1 ####[facility] LABCLIA [id number] [address] [address] [facility] [id number] [place] [address] [place] Triglyceride [Mass/Vol] 79 mg/dL Normal <150 [facility] Comment on above: Order Comment: Speci men Type: BLOOD SPECIMENOrdering Facility: [facility] Address: [address] [place] [address] Result Comment: <150 mg/dL, Normal 150-199 mg/dL, Borderline high 200-499 mg/dL, High>499 mg/dL, Very high Performed By: #### 2 4331-1 ####[facility] LABCLIA [id number] [place] AV[id number] [place] [address] [place] [facility] [place] [id number] [address] OF [place] CNCNPATEDon 04-27-[address] [facility] CNPNon 04-27-[address] [facility] CBC W Auto Differential pane l (Bld)on 04-22-2024 Basophils (Bld) [#/Vol] 0.06 10*3/uL [facility] Basophils/100 WBC (Bld) 1.1 % [facility] Differential cell count method Nom (Bld) Auto [facility] Eosinophils (Bld) [#/Vol] 0.04 10*3/uL [facility] Eosinophils/100 WBC (Bld) 0.7 % [facility] Erythrocyte distribution width (RBC) [Ratio] 14.6 % 11.5 - 15.0 % [facility] Hematocrit (Bld) [Volume fraction] 34.4 % Low 36.0 - 46.0 % [facility] Hemoglobin (Bld) [Mass/Vol] 10.9 g/dL Low 11.5 - 15.5 g/dL [facility] Immature granulocytes (Bld) [#/Vol] [facility] Immature granulocytes/100 WBC (Bld) 0.4 % [facility] Interpretation and review of laboratory results Abnormal [facility] Lymphocytes (Bld) [#/Vol] 0.83 10*3/uL Low [facility] Lymphocytes/100 WBC (Bld) 14.9 % [facility] MCH (RBC) [Entitic mass] 27.6 pg 26.0 - 34.0 pg [facility] MCHC (RBC) [Mass/Vol] 31.7 g/dL 30.5 - 36.0 g/dL [facility] MCV (RBC) [Entitic vol] 87.1 fL 80.0 - 100.0 fL [facility] Monocytes (Bld) [#/Vol] 0.58 10*3/uL [facility] Monocytes/100 WBC (Bld) 10.4 % [facility] Neutrophils (Bld) [#/Vol] 4.03 10*3/uL [facility] Neutrophils/100 WBC (Bld) 72.5 % [facility] Nucleated RBC (Bld) [#/Vol] NINF [facility] Nucleated RBC/100 WBC (Bld) [Ratio] 0.0 % /100 WBC [facility] Platelet mean volume (Bld) [Entitic vol] 8.6 fL Low 9.0 - 12.7 fL [facility] Platelets (Bld) [#/Vol] 500 10*3/uL High [facility] RBC (Bld) [#/Vol] 3.95 10*6/uL 3.90 - 5.2 0 m/uL [facility] WBC (Bld) [#/Vol] 5.56 10*3/uL [facility] Comprehensive metabolic 2000 panelOrdered By: Natividad Talbot on 04-22-2024 Albumin [Mass/Vol] 3.9 g/dL 3.9 - 4.9 g/dL [facility] ALP [Catalytic activity/Vol] 123 U/L 34 - 123 U/L [facility] ALT [Catalytic activity/Vol] 17 U/L 7 - 38 U/L [facility] Anion gap [Moles/Vol] 9 mmol/L 8 - 15 mmol/L [facility] AST [Catalytic activity/Vol] 17 U/L 13 - 35 U/L [facility] Bilirubin [Mass/Vol] 0.2 mg/dL 0.2 - 1 .3 mg/dL [facility] Calcium [Mass/Vol] 9.4 mg/dL 8.5 - 10. 2 mg/dL [facility] Chloride [Moles/Vol] 101 mmol/L 98 - 10 7 mmol/L [facility] CO2 [Moles/Vol] 28 mmol/L 22 - 30 mmol/L [facility] Creatinine [Mass/Vol] 0.80 mg/dL 0.58 - 0.96 mg/dL [facility] GFR/1.73 sq M.predicted among non-blacks MDRD (S/P/Bld) [Vol rate/Area] 78 mL/min/{1.73_m2} - PINF [facility] Comment on above: Estimated Glomerular Filtration Rate (eGFR) is calculated using the 2020 CKD-EPI creatinine equation. This equation utilizes serum creatinine, sex, and age as parameters. The creatinine assay has traceable calibration to isotope dilution-mass spectrometry. Refer to KDIGO guidelines for clinical interpretation. In patients with unstable renal function, e.g. those with acute kidney injury, the eGFR may not accurately reflect actual GFR. Glucose [Mass/Vol] 94 mg/dL 74 - 99 mg/dL [facility] Comment on above: The [place] Diabete s Association (ADA) provides guidance for cutoff values for fasting glucose and random glucose. The ADA defines fasting as no caloric intake for at least 8 hours. Fasting plasma glucose results between 100 to 125 mg/dL indicate increased risk for diabetes (prediabetes). Fasting plasma glucose results greater than or equal to 126 mg/dL meet the criteria for diagnosis of diabetes. In the absence of unequivocal hyperglycemia, results should be confirmed by repeat testing. In a patient with classic symptoms of hyperglycemia or hyperglycemic crisis, random plasma glucose results greater than or equal to 200 mg/dL meet the criteria for diagnosis of diabetes. Reference: Standards of Medical Care in Diabetes 2016, [place] Diabetes Association. Diabetes Care. 2016.39(Suppl 1). Potassium [Moles/Vol] 3.8 mmol/L 3.7 - 5.1 mmol/L [facility] Protein [Mass/Vol] 6.8 g/dL 6.3 - 8.0 g/dL [facility] Sodium [Moles/Vol] 138 mmol/L 136 - 144 mmol/L [facility] Urea nitrogen [Mass/Vol] 13 mg/dL 7 - 21 mg/dL [facility] MAGNESIUMon 04-22-2024 Magnesium [Mass/Vol] 2.2 mg/dL 1.7 - 2 .3 mg/dL [facility] No Panel InformationOrdered By: Natividad Talbot on 04-22-2024 Interpretation and review of laboratory results Normal [facility] ECG COMPLETEon 04-02-2024 Atrial Rate 84 BPM [facility] Calculated P [place] 67 degrees [facility] Calculated R [place] 59 degrees [facility] Calculated T [place] 60 degrees [facility] P-R Interval 152 ms [facility] QRS Duration 68 ms [facility] QT Interval 374 ms [facility] QTC Calculation (Bazett) 441 ms [facility] Ventricular Rate 84 BPM [facility] NORMAL SINUS RHYTHM POSSIBLE LEFT ATRIAL ENLARGEMENT BORDERLINE ECG Confirmed by DANITA YEAGER MD ([id number]) on 04/02/2024 4:36:14 PM [facility] [place] NAME : SAL BAUTISTA PID : [id number] : 1950 Gender : Female Race : ORD : [id number] Procedure Date : Apr 02 2024 14:17:03 Edit Date : Apr 02 2024 16:36:20 Diagnosis: NORMAL SINUS RHYTHM POSSIBLE LEFT ATRIAL ENLARGEMENT BORDERLINE ECG Confirmed by DANITA YEAGER MD ([id number]) on 04/02/2024 4:36:14 PM Test Reason : Location : 135 : [facility] Overread By : DANITA YEAGER MD Edited By : DANITA YEAGER MD Referred By : , Acquired by : [id number], [facility] PREALBUMINon 03-30-2024 Prealbumin [Mass/Vol] 17 mg/dL 17 - 3 6 mg/dL [facility] Prealbumin [Mass/Vol]on 03-07 Interpretation and review of laboratory results Normal [facility] CA 125on 03-16-2024 Cancer Ag 125 Qn 305 [arb'U]/mL High NINF - 39 U/mL [facility] Comment on above: CA 125 test methodol ogy used is the Electrochemiluminescence Immunoassay by [facility]. Results obtained with different methods or kits cannot be used interchangeably. The reference interval is based on the 95th percentile of 240 apparently healthy premenopausal and postmenopausal women. At a cutoff value of 65 U/mL, the test sensitivity to distinguish ovarian carcinoma (FIGO stage I to IV) versus benign gynecological disease is 79%, with a specificity of 82%. Reference: Cancer Antigen 125 (CA 125 II) [package insert V 1.0 [place]i]. [facility], [place], [place] (July 2015) CT Chest WO contraston 03-16 IMPRESSION: Few small sub-6 mm indeterminate lung nodules. Continued attention on follow-up is suggested given history of pelvic mass. No thoracic lymph node enlargement. Focal thickening along the right anterior pleura and a cluster of subcentimeter right cardiophrenic lymph nodes. Continued attention on follow-up is suggested. Senior Strategy Analyst: GUILLE Transcribe Date/Time: Mar 16 2024 8:50A Dictated by : CAROLEE ZHANG MD This examination was interpreted and the report reviewed and electronically signed by: GINNY ENG MD on Mar 16 2024 11:56AM [facility] DIVISION OF RADIOLOGY * * *Final Report* * * DATE OF EXAM: Mar 16 2024 8:30AM [facility] 0541 - CT CHEST WO IVCON / PROCEDURE REASON: Pelvic mass * * * * Physician Interpretation * * * * EXAMINATION: CHEST CT WITHOUT CONTRAST CLINICAL HISTORY: 73-year-old female with pelvic mass Technique: Spiral CT acquisition of the chest from the thoracic inlet to the upper abdomen without contrast. MQ: CTCWO_6 CT Radiation dose: Integrated Dose-length product (DLP) for this visit = 107 mGy*cm CT Dose Reduction Employed: Automated exposure control(AEC) and iterative recon Comparison: No prior chest CT available in PACS. RESULT: Limitations: None. Lines, tubes, and devices: None. Lung parenchyma and airways: The central airways are patent. Mild biapical scarring, likely post-inflammatory. No consolidation. No pulmonary edema. Few small (sub-6 mm) indeterminate lung nodules; For reference 4 mm nodule in right upper lobe [7:29], 2 mm nodule in left upper lobe [7:33]. Perifissural nodules seen, likely lymph nodes, for reference [along right major fissure- 7:64,71; along left major fissure- 7:51,117]. Pleural space: No effusion. Focal nodular thickening along the right anterior pleura. No pneumothorax. Lower neck, lymph nodes, and mediastinum: The imaged thyroid gland is atrophic. No supraclavicular or axillary lymphadenopathy. Subcentimeter lymph nodes are seen in mediastinum and hilar regions. A few cluster of subcentimeter lymph nodes noted in the right cardiophrenic angle measuring up to 6 mm [6:268]. Esophagus is not dilated. Heart, pericardium, and thoracic vessels: Thoracic aorta is normal in caliber. Main pulmonary artery is normal in caliber. Cardiac chambers are normal in size. No coronary artery atherosclerotic calcifications are noted, although the study is not optimized for coronary assessment. No pericardial effusion or thickening. Bones and soft tissues: No destructive bone lesion. Chest wall is unremarkable. Upper abdomen: Please refer to the recently performed and separately dictated CT abdomen and pelvis for pertinent findings in the abdomen and pelvis. Localizer images: No additional findings. DIVISION OF RADIOLOGY Provider, [facility] - 03/16/2024 * * *Final Report* * * DATE OF EXAM: Mar 16 2024 8:30AM [facility] 0541 - CT CHEST WO IVCON / PROCEDURE REASON: Pelvic mass * * * * Physician Interpretation * * * * EXAMINATION: CHEST CT WITHOUT CONTRAST CLINICAL HISTORY: 73-year-old female with pelvic mass Technique: Spiral CT acquisition of the chest from the thoracic inlet to the upper abdomen without contrast. MQ: CTCWO_6 CT Radiation dose: Integrated Dose-length product (DLP) for this visit = 107 mGy*cm CT Dose Reduction Employed: Automated exposure control(AEC) and iterative recon Comparison: No prior chest CT available in PACS. RESULT: Limitations: None. Lines, tubes, and devices: None. Lung parenchyma and airways: The central airways are patent. Mild biapical scarring, likely post-inflammatory. No consolidation. No pulmonary edema. Few small (sub-6 mm) indeterminate lung nodules; For reference 4 mm nodule in right upper lobe [7:29], 2 mm nodule in left upper lobe [7:33]. Perifissural nodules seen, likely lymph nodes, for reference [along right major fissure- 7:64,71; along left major fissure- 7:51,117]. Pleural space: No effusion. Focal nodular thickening along the right anterior pleura. No pneumothorax. Lower neck, lymph nodes, and mediastinum: The imaged thyroid gland is atrophic. No supraclavicular or axillary lymphadenopathy. Subcentimeter lymph nodes are seen in mediastinum and hilar regions. A few cluster of subcentimeter lymph nodes noted in the right cardiophrenic angle measuring up to 6 mm [6:268]. Esophagus is not dilated. Heart, pericardium, and thoracic vessels: Thoracic aorta is normal in caliber. Main pulmonary artery is normal in caliber. Cardiac chambers are normal in size. No coronary artery atherosclerotic calcifications are noted, although the study is not optimized for coronary assessment. No pericardial effusion or thickening. Bones and soft tissues: No destructive bone lesion. Chest wall is unremarkable. Upper abdomen: Please refer to the recently performed and separately dictated CT abdomen and pelvis for pertinent findings in the abdomen and pelvis. Localizer images: No additional findings. IMPRESSION IMPRESSION: Few small sub-6 mm indeterminate lung nodules. Continued attention on follow-up is suggested given history of pelvic mass. No thoracic lymph node enlargement. Focal thickening along the right anterior pleura and a cluster of subcentimeter right cardiophrenic lymph nodes. Continued attention on follow-up is suggested. Senior Strategy Analyst: PSCB Transcribe Date/Time: Mar 16 2024 8:50A Dictated by : CAROLEE ZHANG MD This examination was interpreted and the report reviewed and electronically signed by: GINNY ENG MD on Mar 16 2024 11:56AM EST [facility] Radiology Study observation (narrative) [facility] CT Chest WO contrastOrdered By: Ccf Provider on 03-16-2024 [facility] Comprehensive metabolic 2000 panelon 03-16-2024 Albumin [Mass/Vol] 4.2 g/dL 3.9 - 4.9 g/dL [facility] ALP [Catalytic activity/Vol] 95 U/L 34 - 123 U/L [facility] ALT [Catalytic activity/Vol] 10 U/L 7 - 38 U/L [facility] Anion gap [Moles/Vol] 11 mmol/L 8 - 15 mmol/L [facility] AST [Catalytic activity/Vol] 17 U/L 13 - 35 U/L [facility] Bilirubin [Mass/Vol] mg/dL Low 0.2 - 1 .3 mg/dL [facility] Calcium [Mass/Vol] 9.5 mg/dL 8.5 - 10. 2 mg/dL [facility] Chloride [Moles/Vol] 102 mmol/L 98 - 10 7 mmol/L [facility] CO2 [Moles/Vol] 26 mmol/L 22 - 30 mmol/L [facility] Creatinine [Mass/Vol] 0.85 mg/dL 0.58 - 0.96 mg/dL [facility] GFR/1.73 sq M.predicted among non-blacks MDRD (S/P/Bld) [Vol rate/Area] 73 mL/min/{1.73_m2} - PINF [facility] Comment on above: Estimated Glomerular Filtration Rate (eGFR) is calculated using the 2020 CKD-EPI creatinine equation. This equation utilizes serum creatinine, sex, and age as parameters. The creatinine assay has traceable calibration to isotope dilution-mass spectrometry. Refer to KDIGO guidelines for clinical interpretation. In patients with unstable renal function, e.g. those with acute kidney injury, the eGFR may not accurately reflect actual GFR. Glucose [Mass/Vol] 93 mg/dL 74 - 99 mg/dL [facility] Comment on above: The [place] Diabete s Association (ADA) provides guidance for cutoff values for fasting glucose and random glucose. The ADA defines fasting as no caloric intake for at least 8 hours. Fasting plasma glucose results between 100 to 125 mg/dL indicate increased risk for diabetes (prediabetes). Fasting plasma glucose results greater than or equal to 126 mg/dL meet the criteria for diagnosis of diabetes. In the absence of unequivocal hyperglycemia, results should be confirmed by repeat testing. In a patient with classic symptoms of hyperglycemia or hyperglycemic crisis, random plasma glucose results greater than or equal to 200 mg/dL meet the criteria for diagnosis of diabetes. Reference: Standards of Medical Care in Diabetes 2016, [place] Diabetes Association. Diabetes Care. 2016.39(Suppl 1). Interpretation and review of laboratory results Abnormal [facility] Potassium [Moles/Vol] 4.2 mmol/L 3.7 - 5.1 mmol/L [facility] Protein [Mass/Vol] 7.2 g/dL 6.3 - 8.0 g/dL [facility] Sodium [Moles/Vol] 139 mmol/L 136 - 144 mmol/L [facility] Urea nitrogen [Mass/Vol] 12 mg/dL 7 - 21 mg/dL [facility] No Panel Informationon 03-16 Interpretation and review of laboratory results Abnormal [facility] PREALBUMINon 03-16-2024 Prealbumin [Mass/Vol] 12 mg/dL Low 17 - 3 6 mg/dL [facility] TYPE AND SCREEN,30 DAYon ABO group Nom (d) A [facility] Blood group antibody screen Ql Negative [facility] HIstorical Ab Scr Status Negative [facility] Rh Nom (Bld) Positive [facility] ACTIVATED PARTIAL THROMBOPLA STIN TIMEOrdered By: Aquiles Meehan on 03-15-2024 aPTT Coag (PPP) [Time] 27.3 s [facility] Comment on above: Frozen Plasma Aliquo t CBC W Auto Differential pane l (Bld)on 03-15-2024 Basophils (Bld) [#/Vol] 0.03 10*3/uL [facility] Basophils/100 WBC (Bld) 0.5 % [facility] Differential cell count method Nom (Bld) Auto [facility] Eosinophils (Bld) [#/Vol] 0.04 10*3/uL [facility] Eosinophils/100 WBC (Bld) 0.6 % [facility] Erythrocyte distribution width (RBC) [Ratio] 13.6 % 11.5 - 15.0 % [facility] Hematocrit (Bld) [Volume fraction] 36.0 % 36.0 - 46.0 % [facility] Hemoglobin (Bld) [Mass/Vol] 11.2 g/dL Low 11.5 - 15.5 g/dL [facility] Immature granulocytes (Bld) [#/Vol] 0.03 10*3/uL [facility] Immature granulocytes/100 WBC (Bld) 0.5 % [facility] Interpretation and review of laboratory results Abnormal [facility] Lymphocytes (Bld) [#/Vol] 0.87 10*3/uL Low [facility] Lymphocytes/100 WBC (Bld) 13.8 % [facility] MCH (RBC) [Entitic mass] 27.3 pg 26.0 - 34.0 pg [facility] MCHC (RBC) [Mass/Vol] 31.1 g/dL 30.5 - 36.0 g/dL [facility] MCV (RBC) [Entitic vol] 87.6 fL 80.0 - 100.0 fL [facility] Monocytes (Bld) [#/Vol] 0.45 10*3/uL [facility] Monocytes/100 WBC (Bld) 7.1 % [facility] Neutrophils (Bld) [#/Vol] 4.90 10*3/uL [facility] Neutrophils/100 WBC (Bld) 77.5 % [facility] Nucleated RBC (Bld) [#/Vol] [facility] Nucleated RBC/100 WBC (Bld) [Ratio] 0.0 % /100 WBC [facility] Platelet mean volume (Bld) [Entitic vol] 10.3 fL 9.0 - 12.7 fL [facility] Platelets (Bld) [#/Vol] 424 10*3/uL High [facility] RBC (Bld) [#/Vol] 4.11 10*6/uL 3.90 - 5.2 0 m/uL [facility] WBC (Bld) [#/Vol] 6.32 10*3/uL [facility] No Panel InformationOrdered By: Aquiles Meehan on 03-15-2024 Interpretation and review of laboratory results Normal [facility] PT panel Coag (PPP)on 2023 INR Coag (PPP) [Relative time] 1.0 {INR} 0.9 - 1.3 [facility] Comment on above: Vitamin K Antagonist (VKA) Therapeutic Range: INR 2 to 3 (Target INR of 2.5) Note: For patients treated with VKA drugs, such as warfarin, the [place] [employer] 2012 Guideline recommends a therapeutic INR range of 2 to 3 (target INR of 2.5). This recommendation includes high-risk patients with antiphospholipid syndrome with previous arterial or venous thromboembolism, current-generation mechanical or bioprosthetic aortic heart valve replacement. Note: Patients with mechanical aortic valve replacement and additional risk factors for thromboembolic events (atrial fibrillation, previous thromboembolism, LV dysfunction, hypercoagulable conditions) or an older generation mechanical AVR (i.e., ball in-Cage) or any mechanical MVR should have a INR therapeutic range of 2.5 to 3.5 (target INR of 3). Jonathan GH, et al. Chest 2012, 141:7S-47S Ibrahima RA, et al. JACC 2017, 70: 252-289 PT Coag (PPP) [Time] 10.9 s [facility] aPTT Coag (PPP) [Time]Ordere d By: Aquiles Meehan on 03-15-2024 Unfractionated Hepar in Therapeutic Ranges: Standard Heparin Nomogram: 53 to 78 seconds (anti-Xa level of 0.3 to 0.7 U/ml) Low Dose/ACS Nomogram: 49 to 67 seconds (anti-Xa level of 0.2 to 0.5 U/ml) Stroke Treatment Nomogram: 49 to 67 seconds (anti-Xa level of 0.2 to 0.5 U/ml) Note: The APTT therapeutic range has been determined for the current lot of laboratory APTT reagent in use throughout the [facility]. [facility] CT Abdomen and Pelvis W cont rast Janna 03-10-2024 IMPRESSION: Large complex cystic mass in the left pelvis with adjacent soft tissue component extending into the right pelvis concerning for ovarian neoplasm. Ascites and changes of carcinomatosis also present in the abdomen and pelvis. Senior Strategy Analyst: GUILLE Transcribe Date/Time: Mar 10 2024 2:59P Dictated by : ROSEMARIE OLSON MD This examination was interpreted and the report reviewed and electronically signed by: ROSEMARIE OLSON MD on Mar 10 2024 3:34PM [facility] DIVISION OF RADIOLOGY * * *Final Report* * * DATE OF EXAM: Mar 10 2024 2:26PM [facility] 0530 - CT ABD/PEL W IVCON / PROCEDURE REASON: multiple diagnoses * * * * Physician Interpretation * * * * EXAMINATION: CT ABDOMEN AND PELVIS WITH IV CONTRAST CLINICAL HISTORY: Generalized abdominal pain Abdominal bloating TECHNIQUE: CT of the abdomen and pelvis was performed using standard technique, scanning from just above the dome of the diaphragm to the symphysis pubis. MQ: CTAP_3 Contrast: IV: 100 ml of Omnipaque 350 Oral: 10 ml of Omni 240 10-25ml diluted with water CT Radiation dose: Integrated Dose-length product (DLP) for this visit = 285 mGy*cm. CT Dose Reduction Employed: Automated exposure control(AEC) and iterative recon COMPARISON: None RESULT: Liver: No mass. Biliary: No bile duct dilation. No calcified gallstones. Spleen: No mass. No splenomegaly. Pancreas: Mildly prominent pancreatic duct. No lesions identified. Adrenals: No mass. Kidneys: No renal lesions or hydronephrosis. GI tract: No dilation or wall thickening. Lymph nodes: No abdominal or pelvic lymphadenopathy. Mesentery/Peritoneum: Moderate volume ascites. No loculated collections. Infiltrative change in mesenteric fat and areas of peritoneal thickening with possible mild serosal thickening of scattered small bowel loops. Retroperitoneum: No mass. Vasculature: - Abdominal aorta and iliac arteries: Atherosclerotic calcifications without aneurysm. - Celiac and SMA: Patent without stenosis. - Portal venous system (SMV, splenic vein, portal vein and branches): Patent. - Hepatic veins: Patent. Pelvis: Left pelvic 9.0 x 7.5 x 11.1 cm cystic mass with internal septations and areas of minimal peripheral wall thickening. Contiguous 6.5 x 3.7 cm heterogeneous soft tissue mass centered in the right pelvis (5:112). Moderate volume ascites at the upper pelvis there is a peritoneal thickening. Presacral edema. Bones/Soft Tissues: No acute findings. Lower thorax: Unremarkable. Localizer images: No additional findings. DIVISION OF RADIOLOGY Provider, [facility] - 03/10/2024 * * *Final Report* * * DATE OF EXAM: Mar 10 2024 2:26PM [facility] 0530 - CT ABD/PEL W IVCON / PROCEDURE REASON: multiple diagnoses * * * * Physician Interpretation * * * * EXAMINATION: CT ABDOMEN AND PELVIS WITH IV CONTRAST CLINICAL HISTORY: Generalized abdominal pain Abdominal bloating TECHNIQUE: CT of the abdomen and pelvis was performed using standard technique, scanning from just above the dome of the diaphragm to the symphysis pubis. MQ: CTAP_3 Contrast: IV: 100 ml of Omnipaque 350 Oral: 10 ml of Omni 240 10-25ml diluted with water CT Radiation dose: Integrated Dose-length product (DLP) for this visit = 285 mGy*cm. CT Dose Reduction Employed: Automated exposure control(AEC) and iterative recon COMPARISON: None RESULT: Liver: No mass. Biliary: No bile duct dilation. No calcified gallstones. Spleen: No mass. No splenomegaly. Pancreas: Mildly prominent pancreatic duct. No lesions identified. Adrenals: No mass. Kidneys: No renal lesions or hydronephrosis. GI tract: No dilation or wall thickening. Lymph nodes: No abdominal or pelvic lymphadenopathy. Mesentery/Peritoneum: Moderate volume ascites. No loculated collections. Infiltrative change in mesenteric fat and areas of peritoneal thickening with possible mild serosal thickening of scattered small bowel loops. Retroperitoneum: No mass. Vasculature: - Abdominal aorta and iliac arteries: Atherosclerotic calcifications without aneurysm. - Celiac and SMA: Patent without stenosis. - Portal venous system (SMV, splenic vein, portal vein and branches): Patent. - Hepatic veins: Patent. Pelvis: Left pelvic 9.0 x 7.5 x 11.1 cm cystic mass with internal septations and areas of minimal peripheral wall thickening. Contiguous 6.5 x 3.7 cm heterogeneous soft tissue mass centered in the right pelvis (5:112). Moderate volume ascites at the upper pelvis there is a peritoneal thickening. Presacral edema. Bones/Soft Tissues: No acute findings. Lower thorax: Unremarkable. Localizer images: No additional findings. IMPRESSION IMPRESSION: Large complex cystic mass in the left pelvis with adjacent soft tissue component extending into the right pelvis concerning for ovarian neoplasm. Ascites and changes of carcinomatosis also present in the abdomen and pelvis. Senior Strategy Analyst: [employer] Transcribe Date/Time: Mar 10 2024 2:59P Dictated by : ROSEMARIE OLSON MD This examination was interpreted and the report reviewed and electronically signed by: ROSEMARIE OLSON MD on Mar 10 2024 3:34PM EST [facility] Radiology Study observation (narrative) [facility] CT Abdomen and Pelvis W cont rast IVOrdered By: [facility] Provider on 03-10-2024 [facility] DXA-AXIAL SKELETONon -30-2 022 [facility] Vital Signs Date Time Vital Sign Value Performing Clinician Facility 04-26-2025 15:09-0400 Body temperature 98.7 [degF] Dr. Romel Michelle MD Work Phone: [facility] 04-26-2025 15:09-0400 Diastolic blood pressure 75 mm[Hg] Dr. Romel Michelle MD Work Phone: [facility] 04-26-2025 15:09-0400 Heart rate 72 /min Dr. Romel Michelle MD Work Phone: [facility] 04-26-2025 15:09-0400 Respiratory rate 16 /min Dr. Romel Michelle MD Work Phone: [facility] 04-26-2025 15:09-0400 SaO2% (BldA) [Mass fraction] 99 % Dr. Romel Michelle MD Work Phone: [facility] 04-26-2025 15:09-0400 Systolic blood pressure 103 mm[Hg] Dr. Romel Michelle MD Work Phone: [facility] 04-26-2025 13:45-0400 Body height 165.[address] Romel Michelle MD Work Phone: [facility] 04-26-2025 13:45-0400 Body mass index (BMI) [Ratio] 20.5 kg/m2 Dr. Romel Michelle MD Work Phone: [facility] 04-26-2025 13:45-0400 Body weight 55.[address] Romel Michelle MD Work Phone: [facility] 04-20-2025 13:11-0400 Body mass index (BMI) [Ratio] 21.57 kg/m2 [place] Nuñez CONTESTANT COORDINATOR.PHOTOGRAPHER LITHOGRAPHIC Work Phone: [facility] 04-20-2025 13:11-0400 Body temperature 97.81 [degF] Linda Nuñez CONTESTANT COORDINATOR.PHOTOGRAPHER LITHOGRAPHIC Work Phone: [facility] 04-20-2025 13:11-0400 Body weight 57.3 kg Linda Cageenter CONTESTANT COORDINATOR.PHOTOGRAPHER LITHOGRAPHIC Work Phone: [facility] 04-20-2025 13:11-0400 Diastolic blood pressure 78 mm[Hg] [place] Nuñez CONTESTANT COORDINATOR.PHOTOGRAPHER LITHOGRAPHIC Work Phone: [facility] 04-20-2025 13:11-0400 Heart rate 86 /min Linda Nuñez CONTESTANT COORDINATOR.PHOTOGRAPHER LITHOGRAPHIC Work Phone: [facility] 04-20-2025 13:11-0400 Respiratory rate 12 /min Linda Nuñez CONTESTANT COORDINATOR.PHOTOGRAPHER LITHOGRAPHIC Work Phone: [facility] 04-20-2025 13:11-0400 SaO2% (BldA) [Mass fraction] 100 % [place] Nuñez CONTESTANT COORDINATOR.PHOTOGRAPHER LITHOGRAPHIC Work Phone: [facility] 04-20-2025 13:11-0400 Systolic blood pressure 128 mm[Hg] Linda Nuñez CONTESTANT COORDINATOR.PHOTOGRAPHER LITHOGRAPHIC Work Phone: [facility] 03-21-2025 09:43-0400 Body temperature 98.2 [degF] Treatment Wstr Work Phone: [facility] 03-21-2025 09:43-0400 Diastolic blood pressure 74 mm[Hg] Treatment Wstr Work Phone: [facility] 03-21-2025 09:43-0400 Heart rate 70 /min Treatment Wstr Work Phone: [facility] 03-21-2025 09:43-0400 Respiratory rate 14 /min Treatment Wstr Work Phone: [facility] 03-21-2025 09:43-0400 SaO2% (BldA) [Mass fraction] 100 % Treatment Wstr Work Phone: [facility] 03-21-2025 09:43-0400 Systolic blood pressure 125 mm[Hg] Treatment Wstr Work Phone: [facility] 03-17-2025 08:00-0400 Body temperature 97.9 [degF] Treatment Wstr Work Phone: [facility] 03-17-2025 08:00-0400 Diastolic blood pressure 67 mm[Hg] Treatment Wstr Work Phone: [facility] 03-17-2025 08:00-0400 Heart rate 90 /min Treatment Wstr Work Phone: [facility] 03-17-2025 08:00-0400 Systolic blood pressure 113 mm[Hg] Treatment Wstr Work Phone: [facility] 03-15-2025 09:58-0400 Body temperature 97.3 [degF] Treatment Wstr Work Phone: [facility] 03-15-2025 09:58-0400 Diastolic blood pressure 64 mm[Hg] Treatment Wstr Work Phone: [facility] 03-15-2025 09:58-0400 Heart rate 81 /min Treatment Wstr Work Phone: [facility] 03-15-2025 09:58-0400 SaO2% (BldA) [Mass fraction] 100 % Treatment Wstr Work Phone: [facility] 03-15-2025 09:58-0400 Systolic blood pressure 117 mm[Hg] Treatment Wstr Work Phone: [facility] 03-11-2025 10:00-0400 Body temperature 97.59 [degF] Treatment Wstr Work Phone: [facility] 03-11-2025 10:00-0400 Diastolic blood pressure 54 mm[Hg] Treatment Wstr Work Phone: [facility] 03-11-2025 10:00-0400 Heart rate 70 /min Treatment Wstr Work Phone: [facility] 03-11-2025 10:00-0400 Systolic blood pressure 99 mm[Hg] Treatment Wstr Work Phone: [facility] 03-09-2025 13:01-0400 Body temperature 98.6 [degF] Treatment Wstr Work Phone: [facility] 03-09-2025 13:01-0400 Diastolic blood pressure 67 mm[Hg] Treatment Wstr Work Phone: [facility] 03-09-2025 13:01-0400 Heart rate 68 /min Treatment Wstr Work Phone: [facility] 03-09-2025 13:01-0400 SaO2% (BldA) [Mass fraction] 100 % Treatment Wstr Work Phone: [facility] 03-09-2025 13:01-0400 Systolic blood pressure 127 mm[Hg] Treatment Wstr Work Phone: [facility] 03-02-2025 11:02-0400 Body mass index (BMI) [Ratio] 21.51 kg/m2 Nile Marquisei DO Work Phone: [facility] 03-02-2025 11:02-0400 Body temperature 97.5 [degF] Nile Camarilloi DO Work Phone: [facility] 03-02-2025 11:02-0400 Body weight 57.15 kg Nile Marquisei DO Work Phone: [facility] 03-02-2025 11:02-0400 Diastolic blood pressure 73 mm[Hg] Nile Camarilloi DO Work Phone: [facility] 03-02-2025 11:02-0400 Heart rate 68 /min Nile Hall DO Work Phone: [facility] 03-02-2025 11:02-0400 SaO2% (BldA) [Mass fraction] 100 % Nile Hall DO Work Phone: [facility] 03-02-2025 11:02-0400 Systolic blood pressure 107 mm[Hg] Nile Hall DO Work Phone: [facility] 02-03-2025 09:40-0400 Body mass index (BMI) [Ratio] 20.96 kg/m2 Linda Nuñez CONTESTANT COORDINATOR.PHOTOGRAPHER LITHOGRAPHIC Work Phone: [facility] 02-03-2025 09:40-0400 Body temperature 97.7 [degF] Linda Nuñez CONTESTANT COORDINATOR.PHOTOGRAPHER LITHOGRAPHIC Work Phone: [facility] 02-03-2025 09:40-0400 Body weight 55.7 kg Linda Nuñez CONTESTANT COORDINATOR.PHOTOGRAPHER LITHOGRAPHIC Work Phone: [facility] 02-03-2025 09:40-0400 Diastolic blood pressure 76 mm[Hg] Linda Nuñez CONTESTANT COORDINATOR.PHOTOGRAPHER LITHOGRAPHIC Work Phone: [facility] 02-03-2025 09:40-0400 Heart rate 77 /min Linda Nuñez CONTESTANT COORDINATOR.PHOTOGRAPHER LITHOGRAPHIC Work Phone: [facility] 02-03-2025 09:40-0400 SaO2% (BldA) [Mass fraction] 100 % Linda Nuñez CONTESTANT COORDINATOR.PHOTOGRAPHER LITHOGRAPHIC Work Phone: [facility] 02-03-2025 09:40-0400 Systolic blood pressure 125 mm[Hg] Linda Nuñez CONTESTANT COORDINATOR.PHOTOGRAPHER LITHOGRAPHIC Work Phone: [facility] 01-10-2025 13:05-0400 Body temperature 98.1 [degF] Dr. Romel Michelle MD Work Phone: [facility] 01-10-2025 13:05-0400 Diastolic blood pressure 61 mm[Hg] Dr. Romel Michelle MD Work Phone: [facility] 01-10-2025 13:05-0400 Heart rate 67 /min Dr. Romel Michelle MD Work Phone: [facility] 01-10-2025 13:05-0400 Respiratory rate 16 /min Dr. Romel Michelle MD Work Phone: 2(360)962-951922 [place] [address] 01-10-2025 13:05-0400 SaO2% (BldA) [Mass fraction] 98 % Dr. Romel Michelle MD Work Phone: 0(765)941-269722 [place] [address] 01-10-2025 13:05-0400 Systolic blood pressure 100 mm[Hg] Dr. Romel Michelle MD Work Phone: 8(492)711-567844 [place] [address] 01-10-2025 10:06-0400 Body height 165.[address] Romel Michelle MD Work Phone: 8(118)634-607944 [place] [address] 01-10-2025 10:06-0400 Body mass index (BMI) [Ratio] 19.8 kg/m2 Dr. Romel Michelle MD Work Phone: 7(365)867-086122 [place] [address] 01-10-2025 10:06-0400 Body weight [address] Romel Michelle MD Work Phone: [facility] 12-24-2024 13:20-0400 Body height 163 cm Treatment Wstr Work Phone: [facility] 12-24-2024 13:20-0400 Body mass index (BMI) [Ratio] 20.66 kg/m2 Treatment Wstr Work Phone: [facility] 12-24-2024 13:20-0400 Body temperature 98.1 [degF] Treatment Wstr Work Phone: [facility] 12-24-2024 13:20-0400 Body weight 54.88 kg Treatment Wstr Work Phone: [facility] 12-24-2024 13:20-0400 Diastolic blood pressure 72 mm[Hg] Treatment Wstr Work Phone: [facility] 12-24-2024 13:20-0400 Heart rate 75 /min Treatment Wstr Work Phone: [facility] 12-24-2024 13:20-0400 Respiratory rate 16 /min Treatment Wstr Work Phone: [facility] 12-24-2024 13:20-0400 SaO2% (BldA) [Mass fraction] 100 % Treatment Wstr Work Phone: [facility] 12-24-2024 13:20-0400 Systolic blood pressure 118 mm[Hg] Treatment Wstr Work Phone: [facility] 12-21-2024 14:00-0400 Body temperature 98.5 [degF] Dr. Romel Michelle MD Work Phone: [facility] 12-21-2024 14:00-0400 Diastolic blood pressure 52 mm[Hg] Dr. Romel Michelle MD Work Phone: [facility] 12-21-2024 14:00-0400 Heart rate 82 /min Dr. Romel Michelle MD Work Phone: [facility] 12-21-2024 14:00-0400 Respiratory rate 16 /min Dr. Romel Michelle MD Work Phone: [facility] 12-21-2024 14:00-0400 SaO2% (BldA) [Mass fraction] 99 % Dr. Romel Michelle MD Work Phone: [facility] 12-21-2024 14:00-0400 Systolic blood pressure 92 mm[Hg] Dr. Romel Michelle MD Work Phone: 1(893)428-971522 [place] [address] 12-21-2024 11:55-0400 Body temperature 97.8 [degF] Dr. Romel Michelle MD Work Phone: 9(362)032-915822 [place] [address] 12-21-2024 11:55-0400 Diastolic blood pressure 74 mm[Hg] Dr. Romel Michelle MD Work Phone: 8(052)934-343322 [place] [address] 12-21-2024 11:55-0400 Heart rate 64 /min Dr. Romel Michelle MD Work Phone: 9(276)630-526644 [place] [address] 12-21-2024 11:55-0400 Respiratory rate 16 /min Dr. Romel Michelle MD Work Phone: 8(209)166-279844 [place] [address] 12-21-2024 11:55-0400 SaO2% (BldA) [Mass fraction] 99 % Dr. Romel Michelle MD Work Phone: 4(297)138-057144 [place] [address] 12-21-2024 11:55-0400 Systolic blood pressure 120 mm[Hg] Dr. Romel Michelle MD Work Phone: 6(347)792-723344 [place] [address] 12-21-2024 09:33-0400 Body height 165.[address] Romel Michelle MD Work Phone: 8(982)991-645344 [place] [address] 12-21-2024 09:33-0400 Body mass index (BMI) [Ratio] 19.3 kg/m2 Dr. Romel Michelle MD Work Phone: 2(318)389-184344 [place] [address] 12-21-2024 09:33-0400 Body weight 52.[address] Romel Michelle MD Work Phone: 0(921)337-893544 [place] [address] 12-17-2024 08:51-0400 Body mass index (BMI) [Ratio] 20.2 kg/m2 Dr. Romel Michelle MD Work Phone: 4(377)193-748044 [place] [address] 12-17-2024 08:51-0400 Body temperature 97.2 [degF] Dr. Romel Michelle MD Work Phone: 2(872)947-881244 [place] [address] 12-17-2024 08:51-0400 Body weight 55.[address] Romel Michelle MD Work Phone: 6(776)224-554044 [place] [address] 12-17-2024 08:51-0400 Diastolic blood pressure 63 mm[Hg] Dr. Romel Michelle MD Work Phone: 1(472)145-014444 [place] [address] 12-17-2024 08:51-0400 Heart rate 71 /min Dr. Romel Michelle MD Work Phone: [facility] 12-17-2024 08:51-0400 Respiratory rate 18 /min Dr. Romel Michelle MD Work Phone: [facility] 12-17-2024 08:51-0400 SaO2% (BldA) [Mass fraction] 98 % Dr. Romel Michelle MD Work Phone: [facility] 12-17-2024 08:51-0400 Systolic blood pressure 105 mm[Hg] Dr. Romel Michelle MD Work Phone: [facility] 12-03-2024 08:05-0500 Body temperature 97.7 [degF] Treatment Wstr Work Phone: [facility] 12-03-2024 08:05-0500 Diastolic blood pressure 71 mm[Hg] Treatment Wstr Work Phone: [facility] 12-03-2024 08:05-0500 Heart rate 74 /min Treatment Wstr Work Phone: [facility] 12-03-2024 08:05-0500 SaO2% (BldA) [Mass fraction] 99 % Treatment Wstr Work Phone: [facility] 12-03-2024 08:05-0500 Systolic blood pressure 113 mm[Hg] Treatment Wstr Work Phone: [facility] 12-02-2024 08:42-0500 Body mass index (BMI) [Ratio] 19.72 kg/m2 Nile Masci DO Work Phone: [facility] 12-02-2024 08:42-0500 Body temperature 97.2 [degF] Nile Masci DO Work Phone: [facility] 12-02-2024 08:42-0500 Body weight 53.75 kg Nile Masci DO Work Phone: [facility] 12-02-2024 08:42-0500 Diastolic blood pressure 67 mm[Hg] Nile Masci DO Work Phone: [facility] 12-02-2024 08:42-0500 Heart rate 77 /min Nile Masci DO Work Phone: [facility] 12-02-2024 08:42-0500 SaO2% (BldA) [Mass fraction] 99 % Nile Hall DO Work Phone: [facility] 12-02-2024 08:42-0500 Systolic blood pressure 108 mm[Hg] Nile Hall DO Work Phone: [facility] 11-12-2024 08:00-0500 Body temperature 97.2 [degF] Treatment Wstr Work Phone: [facility] 11-12-2024 08:00-0500 Diastolic blood pressure 63 mm[Hg] Treatment Wstr Work Phone: [facility] 11-12-2024 08:00-0500 Heart rate 98 /min Treatment Wstr Work Phone: [facility] 11-12-2024 08:00-0500 Systolic blood pressure 107 mm[Hg] Treatment Wstr Work Phone: [facility] 11-11-2024 08:35-0500 Body mass index (BMI) [Ratio] 19.88 kg/m2 Linda Nuñez CONTESTANT COORDINATOR.PHOTOGRAPHER LITHOGRAPHIC Work Phone: [facility] 11-11-2024 08:35-0500 Body temperature 98.71 [degF] Linda Nuñez CONTESTANT COORDINATOR.PHOTOGRAPHER LITHOGRAPHIC Work Phone: [facility] 11-11-2024 08:35-0500 Body weight 54.2 kg Linda Nuñez CONTESTANT COORDINATOR.PHOTOGRAPHER LITHOGRAPHIC Work Phone: [facility] 11-11-2024 08:35-0500 Diastolic blood pressure 72 mm[Hg] Linda Nuñez CONTESTANT COORDINATOR.PHOTOGRAPHER LITHOGRAPHIC Work Phone: [facility] 11-11-2024 08:35-0500 Heart rate 89 /min Linda Nuñez CONTESTANT COORDINATOR.PHOTOGRAPHER LITHOGRAPHIC Work Phone: [facility] 11-11-2024 08:35-0500 SaO2% (BldA) [Mass fraction] 100 % Linda Nuñez CONTESTANT COORDINATOR.PHOTOGRAPHER LITHOGRAPHIC Work Phone: [facility] 11-11-2024 08:35-0500 Systolic blood pressure 113 mm[Hg] Linda Nuñez PHOTOGRAPHER LITHOGRAPHIC Work Phone: [facility] 10-22-2024 08:18-0500 Body mass index (BMI) [Ratio] 20.22 kg/m2 Treatment Wstr Work Phone: [facility] 10-22-2024 08:18-0500 Body temperature 97.81 [degF] Treatment Wstr Work Phone: [facility] 10-22-2024 08:18-0500 Body weight 55.11 kg Treatment Wstr Work Phone: [facility] 10-22-2024 08:18-0500 Diastolic blood pressure 67 mm[Hg] Treatment Wstr Work Phone: [facility] 10-22-2024 08:18-0500 Heart rate 70 /min Treatment Wstr Work Phone: [facility] 10-22-2024 08:18-0500 SaO2% (BldA) [Mass fraction] 98 % Treatment Wstr Work Phone: [facility] 10-22-2024 08:18-0500 Systolic blood pressure 129 mm[Hg] Treatment Wstr Work Phone: [facility] 10-15-2024 08:31-0500 Body mass index (BMI) [Ratio] 19.72 kg/m2 Nile Masci DO Work Phone: [facility] 10-15-2024 08:31-0500 Body temperature 97.9 [degF] Nile Masci DO Work Phone: [facility] 10-15-2024 08:31-0500 Body weight 53.75 kg Nile Masci DO Work Phone: [facility] 10-15-2024 08:31-0500 Diastolic blood pressure 64 mm[Hg] Nile Masci DO Work Phone: [facility] 10-15-2024 08:31-0500 Heart rate 76 /min Nile Masci DO Work Phone: [facility] 10-15-2024 08:31-0500 SaO2% (BldA) [Mass fraction] 100 % Nile Hall DO Work Phone: [facility] 10-15-2024 08:31-0500 Systolic blood pressure 104 mm[Hg] Nile Hall DO Work Phone: [facility] 10-07-2024 11:32-0500 Body height 165.1 cm Fredis Buckner MD Work Phone: [facility] 10-07-2024 11:32-0500 Body mass index (BMI) [Ratio] 20.1 kg/m2 Fredis Buckner MD Work Phone: [facility] 10-07-2024 11:32-0500 Body temperature 98.6 [degF] Fredis Buckner MD Work Phone: [facility] 10-07-2024 11:32-0500 Body weight 54.8 kg Fredis Buckner MD Work Phone: [facility] 10-07-2024 11:32-0500 Diastolic blood pressure 80 mm[Hg] Fredis Buckner MD Work Phone: [facility] 10-07-2024 11:32-0500 Heart rate 89 /min Fredis Buckner MD Work Phone: [facility] 10-07-2024 11:32-0500 SaO2% (BldA) [Mass fraction] 99 % Fredis Buckner MD Work Phone: [facility] 10-07-2024 11:32-0500 Systolic blood pressure 118 mm[Hg] Fredis Buckner MD Work Phone: [facility] 09-17-2024 11:14-0500 Body mass index (BMI) [Ratio] 20.84 kg/m2 Per Diem Registered Nurse 4 Work Phone: [facility] 09-17-2024 11:14-0500 Body temperature 98.01 [degF] Per Diem Registered Nurse 4 Work Phone: [facility] 09-17-2024 11:14-0500 Body weight 56.8 kg Per Diem Registered Nurse 4 Work Phone: [facility] 09-17-2024 11:14-0500 Diastolic blood pressure 67 mm[Hg] Per Diem Registered Nurse 4 Work Phone: [facility] 09-17-2024 11:14-0500 Heart rate 82 /min Per Diem Registered Nurse 4 Work Phone: [facility] 09-17-2024 11:14-0500 SaO2% (BldA) [Mass fraction] 100 % Per Diem Registered Nurse 4 Work Phone: [facility] 09-17-2024 11:14-0500 Systolic blood pressure 112 mm[Hg] Per Diem Registered Nurse 4 Work Phone: [facility] 09-07-2024 10:20-0500 Body height 165.1 cm Fredis Buckner MD Work Phone: [facility] 09-07-2024 10:20-0500 Body mass index (BMI) [Ratio] 20.95 kg/m2 Fredis Buckner MD Work Phone: [facility] 09-07-2024 10:20-0500 Body temperature 97.11 [degF] Fredis Buckner MD Work Phone: [facility] 09-07-2024 10:20-0500 Body weight 57.1 kg Fredis Buckner MD Work Phone: [facility] 09-07-2024 10:20-0500 Diastolic blood pressure 69 mm[Hg] Fredis Buckner MD Work Phone: [facility] 09-07-2024 10:20-0500 Heart rate 79 /min Fredis Buckner MD Work Phone: [facility] 09-07-2024 10:20-0500 SaO2% (BldA) [Mass fraction] 100 % Fredis Buckner MD Work Phone: [facility] 09-07-2024 10:20-0500 Systolic blood pressure 112 mm[Hg] Fredis Buckner MD Work Phone: [facility] 09-07-2024 09:17-0500 Body height 165.1 cm Pacc 6 Work Phone: [facility] 09-07-2024 09:17-0500 Body mass index (BMI) [Ratio] 20.98 kg/m2 Pac 6 Work Phone: [facility] 09-07-2024 09:17-0500 Body temperature 97.3 [degF] Pac 6 Work Phone: [facility] 09-07-2024 09:17-0500 Body weight 57.2 kg Pac 6 Work Phone: [facility] 09-07-2024 09:17-0500 Diastolic blood pressure 80 mm[Hg] Pac 6 Work Phone: [facility] 09-07-2024 09:17-0500 Heart rate 82 /min [facility] 6 Work Phone: [facility] 09-07-2024 09:17-0500 SaO2% (BldA) [Mass fraction] 100 % [facility] 6 Work Phone: [facility] 09-07-2024 09:17-0500 Systolic blood pressure 129 mm[Hg] [facility] 6 Work Phone: [facility] 08-12-2024 08:16-0500 Body temperature 97.11 [degF] Treatment Wstr Work Phone: [facility] 08-12-2024 08:16-0500 Diastolic blood pressure 75 mm[Hg] Treatment Wstr Work Phone: [facility] 08-12-2024 08:16-0500 Heart rate 96 /min Treatment Wstr Work Phone: [facility] 08-12-2024 08:16-0500 SaO2% (BldA) [Mass fraction] 100 % Treatment Wstr Work Phone: [facility] 08-12-2024 08:16-0500 Systolic blood pressure 123 mm[Hg] Treatment Wstr Work Phone: [facility] 08-11-2024 09:04-0500 Body mass index (BMI) [Ratio] 20.47 kg/m2 Nile Masci DO Work Phone: [facility] 08-11-2024 09:04-0500 Body temperature 97.5 [degF] Nile Camarilloi DO Work Phone: [facility] 08-11-2024 09:04-0500 Body weight 55.79 kg Nile Camarilloi DO Work Phone: [facility] 08-11-2024 09:04-0500 Diastolic blood pressure 74 mm[Hg] Nile Camarilloi DO Work Phone: [facility] 08-11-2024 09:04-0500 Heart rate 94 /min Nile Camarilloi DO Work Phone: [facility] 08-11-2024 09:04-0500 SaO2% (BldA) [Mass fraction] 100 % Nile Camarilloi DO Work Phone: [facility] 08-11-2024 09:04-0500 Systolic blood pressure 138 mm[Hg] Nile Camarilloi DO Work Phone: [facility] 07-23-2024 09:31-0400 Body temperature 97.9 [degF] Treatment Wstr Work Phone: [facility] 07-23-2024 09:31-0400 Diastolic blood pressure 70 mm[Hg] Treatment Wstr Work Phone: [facility] 07-23-2024 09:31-0400 Heart rate 85 /min Treatment Wstr Work Phone: [facility] 07-23-2024 09:31-0400 SaO2% (BldA) [Mass fraction] 99 % Treatment Wstr Work Phone: [facility] 07-23-2024 09:31-0400 Systolic blood pressure 118 mm[Hg] Treatment Wstr Work Phone: [facility] 07-21-2024 10:21-0400 Body mass index (BMI) [Ratio] 20.05 kg/m2 Nile Camarilloi DO Work Phone: [facility] 07-21-2024 10:21-0400 Body temperature 97.59 [degF] Nile Camarilloi DO Work Phone: [facility] 07-21-2024 10:21-0400 Body weight 54.66 kg Nile Masci DO Work Phone: [facility] 07-21-2024 10:21-0400 Diastolic blood pressure 71 mm[Hg] Nile Masci DO Work Phone: [facility] 07-21-2024 10:21-0400 Heart rate 72 /min Nile Masci DO Work Phone: [facility] 07-21-2024 10:21-0400 SaO2% (BldA) [Mass fraction] 100 % Nile Masci DO Work Phone: [facility] 07-21-2024 10:21-0400 Systolic blood pressure 116 mm[Hg] Nile Masci DO Work Phone: [facility] 07-16-2024 15:17-0400 Body height 165.1 cm Fredis Buckner MD Work Phone: [facility] 07-16-2024 15:17-0400 Body mass index (BMI) [Ratio] 19.92 kg/m2 Fredis Buckner MD Work Phone: [facility] 07-16-2024 15:17-0400 Body temperature 97.7 [degF] Fredis Buckner MD Work Phone: [facility] 07-16-2024 15:17-0400 Body weight 54.3 kg rFedis Buckner MD Work Phone: [facility] 07-16-2024 15:17-0400 Diastolic blood pressure 68 mm[Hg] Fredis Buckner MD Work Phone: [facility] 07-16-2024 15:17-0400 Heart rate 64 /min Fredis Buckner MD Work Phone: [facility] 07-16-2024 15:17-0400 SaO2% (BldA) [Mass fraction] 100 % Fredis Buckner MD Work Phone: [facility] 07-16-2024 15:17-0400 Systolic blood pressure 116 mm[Hg] Fredis Buckner MD Work Phone: [facility] 07-01-2024 08:20-0400 Body temperature 97.39 [degF] Treatment Wstr Work Phone: [facility] 07-01-2024 08:20-0400 Diastolic blood pressure 74 mm[Hg] Treatment Wstr Work Phone: [facility] 07-01-2024 08:20-0400 Heart rate 84 /min Treatment Wstr Work Phone: [facility] 07-01-2024 08:20-0400 SaO2% (BldA) [Mass fraction] 99 % Treatment Wstr Work Phone: [facility] 07-01-2024 08:20-0400 Systolic blood pressure 122 mm[Hg] Treatment Wstr Work Phone: [facility] 06-30-2024 09:58-0400 Body mass index (BMI) [Ratio] 19.27 kg/m2 Nile Camarilloi DO Work Phone: [facility] 06-30-2024 09:58-0400 Body temperature 97.9 [degF] Nile Marquisei DO Work Phone: [facility] 06-30-2024 09:58-0400 Body weight 53.75 kg Nile Marquisei DO Work Phone: [facility] 06-30-2024 09:58-0400 Diastolic blood pressure 69 mm[Hg] Nile Marquisei DO Work Phone: [facility] 06-30-2024 09:58-0400 Heart rate 75 /min Nile Marquisei DO Work Phone: [facility] 06-30-2024 09:58-0400 SaO2% (BldA) [Mass fraction] 100 % Nile Marquisei DO Work Phone: [facility] 06-30-2024 09:58-0400 Systolic blood pressure 112 mm[Hg] Nile Marquisei DO Work Phone: [facility] 06-11-2024 09:03-0400 Body temperature 97.11 [degF] Treatment Wstr Work Phone: [facility] 06-11-2024 09:03-0400 Diastolic blood pressure 77 mm[Hg] Treatment Wstr Work Phone: [facility] 06-11-2024 09:03-0400 Heart rate 91 /min Treatment Wstr Work Phone: [facility] 06-11-2024 09:03-0400 SaO2% (BldA) [Mass fraction] 99 % Treatment Wstr Work Phone: [facility] 06-11-2024 09:03-0400 Systolic blood pressure 115 mm[Hg] Treatment Wstr Work Phone: [facility] 06-10-2024 10:07-0400 Body temperature 97.7 [degF] Avriljody Graham RN Work Phone: [facility] 06-10-2024 10:07-0400 Diastolic blood pressure 76 mm[Hg] Avrilenrique Graham RN Work Phone: [facility] 06-10-2024 10:07-0400 Heart rate 72 /min Avrilenrique Graham RN Work Phone: [facility] 06-10-2024 10:07-0400 Respiratory rate 16 /min Avrilenrique Graham RN Work Phone: [facility] 06-10-2024 10:07-0400 SaO2% (BldA) [Mass fraction] 99 % Avrilenrique Graham RN Work Phone: [facility] 06-10-2024 10:07-0400 Systolic blood pressure 120 mm[Hg] Avrilenrique Graham RN Work Phone: [facility] 06-08-2024 13:14-0400 Body mass index (BMI) [Ratio] 18.72 kg/m2 Linda Nuñez APRN.PHOTOGRAPHER LITHOGRAPHIC Work Phone: [facility] 06-08-2024 13:14-0400 Body temperature 97.11 [degF] Linda Nuñez APRN.PHOTOGRAPHER LITHOGRAPHIC Work Phone: [facility] 06-08-2024 13:14-0400 Body weight 52.2 kg Linda Nuñez CONTESTANT COORDINATOR.PHOTOGRAPHER LITHOGRAPHIC Work Phone: [facility] 06-08-2024 13:14-0400 Diastolic blood pressure 82 mm[Hg] Linda Cageenter CONTESTANT COORDINATOR.PHOTOGRAPHER LITHOGRAPHIC Work Phone: [facility] 06-08-2024 13:14-0400 Heart rate 64 /min Linda Cageenter CONTESTANT COORDINATOR.PHOTOGRAPHER LITHOGRAPHIC Work Phone: [facility] 06-08-2024 13:14-0400 SaO2% (BldA) [Mass fraction] 100 % Linda Cageenter CONTESTANT COORDINATOR.PHOTOGRAPHER LITHOGRAPHIC Work Phone: [facility] 06-08-2024 13:14-0400 Systolic blood pressure 126 mm[Hg] Linda Cageenter CONTESTANT COORDINATOR.PHOTOGRAPHER LITHOGRAPHIC Work Phone: [facility] 05-31-2024 10:15-0400 Body temperature 98.01 [degF] Avril Most RN Work Phone: [facility] 05-31-2024 10:15-0400 Diastolic blood pressure 78 mm[Hg] Avril Most RN Work Phone: [facility] 05-31-2024 10:15-0400 Heart rate 76 /min Avril Most RN Work Phone: [facility] 05-31-2024 10:15-0400 Respiratory rate 16 /min Avril Most RN Work Phone: [facility] 05-31-2024 10:15-0400 SaO2% (BldA) [Mass fraction] 99 % Avril Most RN Work Phone: [facility] 05-31-2024 10:15-0400 Systolic blood pressure 124 mm[Hg] Avril Most RN Work Phone: [facility] 05-24-2024 10:32-0400 Body temperature 98.2 [degF] Avril Most RN Work Phone: [facility] 05-24-2024 10:32-0400 Diastolic blood pressure 66 mm[Hg] Avril Most RN Work Phone: [facility] 05-24-2024 10:32-0400 Heart rate 84 /min Avril RN Work Phone: [facility] 05-24-2024 10:32-0400 Respiratory rate 16 /min Avril RN Work Phone: [facility] 05-24-2024 10:32-0400 SaO2% (BldA) [Mass fraction] 98 % Avril RN Work Phone: [facility] 05-24-2024 10:32-0400 Systolic blood pressure 108 mm[Hg] Avril RN Work Phone: [facility] 05-19-2024 08:03-0400 Body temperature 97.5 [degF] Treatment Wstr Work Phone: [facility] 05-19-2024 08:03-0400 Diastolic blood pressure 81 mm[Hg] Treatment Wstr Work Phone: [facility] 05-19-2024 08:03-0400 Heart rate 82 /min Treatment Wstr Work Phone: [facility] 05-19-2024 08:03-0400 Respiratory rate 16 /min Treatment Wstr Work Phone: [facility] 05-19-2024 08:03-0400 Systolic blood pressure 133 mm[Hg] Treatment Wstr Work Phone: [facility] 05-18-2024 11:35-0400 Body mass index (BMI) [Ratio] 17.89 kg/m2 Nile Masci DO Work Phone: [facility] 05-18-2024 11:35-0400 Body temperature 98.4 [degF] Nile Masci DO Work Phone: [facility] 05-18-2024 11:35-0400 Body weight 49.9 kg Nile Masci DO Work Phone: [facility] 05-18-2024 11:35-0400 Diastolic blood pressure 68 mm[Hg] Nile Masci DO Work Phone: [facility] 05-18-2024 11:35-0400 Heart rate 73 /min Nile Camarilloi DO Work Phone: [facility] 05-18-2024 11:35-0400 SaO2% (BldA) [Mass fraction] 100 % Nile Camarilloi DO Work Phone: [facility] 05-18-2024 11:35-0400 Systolic blood pressure 121 mm[Hg] Nile Camarilloi DO Work Phone: [facility] 05-17-2024 09:54-0400 Body temperature 98.29 [degF] Avril Most RN Work Phone: [facility] 05-17-2024 09:54-0400 Diastolic blood pressure 68 mm[Hg] Avril Most RN Work Phone: [facility] 05-17-2024 09:54-0400 Heart rate 72 /min Avril Most RN Work Phone: [facility] 05-17-2024 09:54-0400 Respiratory rate 16 /min Avril Most RN Work Phone: [facility] 05-17-2024 09:54-0400 SaO2% (BldA) [Mass fraction] 99 % Avril Most RN Work Phone: [facility] 05-17-2024 09:54-0400 Systolic blood pressure 118 mm[Hg] Avril Most RN Work Phone: [facility] 05-13-2024 10:15-0400 Body temperature 98.01 [degF] Avril Most RN Work Phone: [facility] 05-13-2024 10:15-0400 Diastolic blood pressure 64 mm[Hg] Avril Most RN Work Phone: [facility] 05-13-2024 10:15-0400 Heart rate 72 /min Avril Most RN Work Phone: [facility] 05-13-2024 10:15-0400 Respiratory rate 16 /min Avril Most RN Work Phone: [facility] 05-13-2024 10:15-0400 SaO2% (BldA) [Mass fraction] 99 % Avril Most RN Work Phone: [facility] 05-13-2024 10:15-0400 Systolic blood pressure 118 mm[Hg] Avril Most RN Work Phone: [facility] 05-10-2024 09:48-0400 Body temperature 97.59 [degF] Avril Most RN Work Phone: [facility] 05-10-2024 09:48-0400 Diastolic blood pressure 66 mm[Hg] Avril Most RN Work Phone: [facility] 05-10-2024 09:48-0400 Heart rate 76 /min Avril Most RN Work Phone: [facility] 05-10-2024 09:48-0400 Respiratory rate 16 /min Avril Most RN Work Phone: [facility] 05-10-2024 09:48-0400 SaO2% (BldA) [Mass fraction] 98 % Avril Most RN Work Phone: [facility] 05-10-2024 09:48-0400 Systolic blood pressure 120 mm[Hg] Avril Most RN Work Phone: [facility] 05-06-2024 10:21-0400 Body temperature 98.6 [degF] Avril Most RN Work Phone: [facility] 05-06-2024 10:21-0400 Diastolic blood pressure 74 mm[Hg] Avril Most RN Work Phone: [facility] 05-06-2024 10:21-0400 Heart rate 76 /min Avril Most RN Work Phone: [facility] 05-06-2024 10:21-0400 Respiratory rate 16 /min Avril Most RN Work Phone: [facility] 05-06-2024 10:21-0400 SaO2% (BldA) [Mass fraction] 99 % Avril Most RN Work Phone: [facility] 05-06-2024 10:21-0400 Systolic blood pressure 120 mm[Hg] Avril Most RN Work Phone: [facility] 05-03-2024 09:56-0400 Body temperature 97.9 [degF] Avril Most RN Work Phone: [facility] 05-03-2024 09:56-0400 Diastolic blood pressure 66 mm[Hg] Avril Most RN Work Phone: [facility] 05-03-2024 09:56-0400 Heart rate 80 /min Avril Most RN Work Phone: [facility] 05-03-2024 09:56-0400 Respiratory rate 16 /min Avril Most RN Work Phone: [facility] 05-03-2024 09:56-0400 SaO2% (BldA) [Mass fraction] 99 % Avril Most RN Work Phone: [facility] 05-03-2024 09:56-0400 Systolic blood pressure 108 mm[Hg] Avril Most RN Work Phone: [facility] 04-29-2024 10:11-0400 Body temperature 98.1 [degF] Avril Most RN Work Phone: [facility] 04-29-2024 10:11-0400 Diastolic blood pressure 64 mm[Hg] Avril Most RN Work Phone: [facility] 04-29-2024 10:11-0400 Heart rate 72 /min Avril Most RN Work Phone: [facility] 04-29-2024 10:11-0400 Respiratory rate 16 /min Avril Most RN Work Phone: [facility] 04-29-2024 10:11-0400 SaO2% (BldA) [Mass fraction] 99 % Avril Most RN Work Phone: [facility] 04-29-2024 10:11-0400 Systolic blood pressure 108 mm[Hg] Avril Graham RN Work Phone: [facility] 04-28-2024 07:51-0400 Body height 167 cm Treatment Wstr Work Phone: [facility] 04-28-2024 07:51-0400 Body mass index (BMI) [Ratio] 19.6 kg/m2 Treatment Wstr Work Phone: [facility] 04-28-2024 07:51-0400 Body temperature 97.2 [degF] Treatment Wstr Work Phone: [facility] 04-28-2024 07:51-0400 Body weight 54.66 kg Treatment Wstr Work Phone: [facility] 04-28-2024 07:51-0400 Diastolic blood pressure 66 mm[Hg] Treatment Wstr Work Phone: [facility] 04-28-2024 07:51-0400 Heart rate 94 /min Treatment Wstr Work Phone: [facility] 04-28-2024 07:51-0400 SaO2% (BldA) [Mass fraction] 100 % Treatment Wstr Work Phone: [facility] 04-28-2024 07:51-0400 Systolic blood pressure 118 mm[Hg] Treatment Wstr Work Phone: [facility] 04-26-2024 13:30-0400 Body temperature 98.29 [degF] Avril Graham RN Work Phone: [facility] 04-26-2024 13:30-0400 Diastolic blood pressure 70 mm[Hg] Avril Graham RN Work Phone: [facility] 04-26-2024 13:30-0400 Heart rate 76 /min Avril Graham RN Work Phone: [facility] 04-26-2024 13:30-0400 Respiratory rate 16 /min Avril Graham RN Work Phone: [facility] 04-26-2024 13:30-0400 SaO2% (BldA) [Mass fraction] 99 % Avril Graham RN Work Phone: [facility] 04-26-2024 13:30-0400 Systolic blood pressure 108 mm[Hg] Avril Graham RN Work Phone: [facility] 04-22-2024 11:26-0400 Body temperature 98.49 [degF] Mariajose Carpenter RN Work Phone: [facility] 04-22-2024 11:26-0400 Diastolic blood pressure 58 mm[Hg] Mariajose Carpenter RN Work Phone: [facility] 04-22-2024 11:26-0400 Heart rate 85 /min Mariajose Carpenter RN Work Phone: [facility] 04-22-2024 11:26-0400 Respiratory rate 18 /min Mariajose Carpenter RN Work Phone: [facility] 04-22-2024 11:26-0400 SaO2% (BldA) [Mass fraction] 98 % Mariajose Carpenter RN Work Phone: [facility] 04-22-2024 11:26-0400 Systolic blood pressure 112 mm[Hg] Mariajose Carpenter RN Work Phone: [facility] 04-22-2024 09:27-0400 Body height 166.4 cm Nile Camarilloi DO Work Phone: [facility] 04-22-2024 09:27-0400 Body mass index (BMI) [Ratio] 19.99 kg/m2 Nile Marquisei DO Work Phone: [facility] 04-22-2024 09:27-0400 Body temperature 97.9 [degF] Nile Masci DO Work Phone: [facility] 04-22-2024 09:27-0400 Body weight 55.34 kg Nile Masci DO Work Phone: [facility] 04-22-2024 09:27-0400 Diastolic blood pressure 68 mm[Hg] Nile Camarilloi DO Work Phone: [facility] 04-22-2024 09:27-0400 Heart rate 75 /min Nile Camarilloi DO Work Phone: [facility] 04-22-2024 09:27-0400 SaO2% (BldA) [Mass fraction] 99 % Nile Camarilloi DO Work Phone: [facility] 04-22-2024 09:27-0400 Systolic blood pressure 103 mm[Hg] Nile Camarilloi DO Work Phone: [facility] 04-19-2024 15:01-0400 Body temperature 98.1 [degF] Avrilenrique Graham RN Work Phone: [facility] 04-19-2024 15:01-0400 Diastolic blood pressure 64 mm[Hg] Avril Graham RN Work Phone: [facility] 04-19-2024 15:01-0400 Heart rate 80 /min Avrilenrique Graham RN Work Phone: [facility] 04-19-2024 15:01-0400 Respiratory rate 16 /min Avrilenrique Graham RN Work Phone: [facility] 04-19-2024 15:01-0400 SaO2% (BldA) [Mass fraction] 99 % Avrilenrique Graham RN Work Phone: [facility] 04-19-2024 15:01-0400 Systolic blood pressure 108 mm[Hg] Avril Graham RN Work Phone: [facility] 04-19-2024 11:39-0400 Body mass index (BMI) [Ratio] 20.47 kg/m2 Fredis Buckner MD Work Phone: [facility] 04-19-2024 11:39-0400 Body temperature 97.5 [degF] Fredis Buckner MD Work Phone: [facility] 04-19-2024 11:39-0400 Body weight 55.79 kg Fredis Buckner MD Work Phone: [facility] 04-19-2024 11:39-0400 Diastolic blood pressure 67 mm[Hg] Fredis Buckner MD Work Phone: [facility] 04-19-2024 11:39-0400 Heart rate 75 /min Fredis Buckner MD Work Phone: [facility] 04-19-2024 11:39-0400 SaO2% (BldA) [Mass fraction] 100 % Fredis Buckner MD Work Phone: [facility] 04-19-2024 11:39-0400 Systolic blood pressure 107 mm[Hg] Fredis Buckner MD Work Phone: [facility] 04-15-2024 11:23-0400 Body height 165.1 cm Avrilenrique Graham RN Work Phone: [facility] 04-15-2024 11:23-0400 Body mass index (BMI) [Ratio] 20.77 kg/m2 Avril Most RN Work Phone: [facility] 04-15-2024 11:23-0400 Body temperature 97.7 [degF] Avril RN Work Phone: [facility] 04-15-2024 11:23-0400 Body weight 56.61 kg Avril Most RN Work Phone: [facility] 04-15-2024 11:23-0400 Diastolic blood pressure 62 mm[Hg] Avril Most RN Work Phone: [facility] 04-15-2024 11:23-0400 Heart rate 80 /min Avril Most RN Work Phone: [facility] 04-15-2024 11:23-0400 Respiratory rate 16 /min Avril Most RN Work Phone: [facility] 04-15-2024 11:23-0400 SaO2% (BldA) [Mass fraction] 99 % Avril Most RN Work Phone: [facility] 04-15-2024 11:23-0400 Systolic blood pressure 106 mm[Hg] Avril Graham RN Work Phone: [facility] 04-02-2024 14:59-0400 Body height 165.1 cm Pac 2 Work Phone: [facility] 04-02-2024 14:59-0400 Body mass index (BMI) [Ratio] 20.58 kg/m2 Pacc 2 Work Phone: [facility] 04-02-2024 14:59-0400 Body temperature 97.81 [degF] Pacc 2 Work Phone: [facility] 04-02-2024 14:59-0400 Body weight 56.1 kg Pacc 2 Work Phone: [facility] 04-02-2024 14:59-0400 Diastolic blood pressure 74 mm[Hg] Pacc 2 Work Phone: [facility] 04-02-2024 14:59-0400 Heart rate 91 /min Pacc 2 Work Phone: [facility] 04-02-2024 14:59-0400 Respiratory rate 12 /min Pacc 2 Work Phone: [facility] 04-02-2024 14:59-0400 SaO2% (BldA) [Mass fraction] 100 % Pacc 2 Work Phone: [facility] 04-02-2024 14:59-0400 Systolic blood pressure 129 mm[Hg] Pacc 2 Work Phone: [facility] 03-29-2024 15:44-0400 Body mass index (BMI) [Ratio] 20.47 kg/m2 Fredis Buckner MD Work Phone: [facility] 03-29-2024 15:44-0400 Body temperature 98.1 [degF] Fredis Buckner MD Work Phone: [facility] 03-29-2024 15:44-0400 Body weight 55.79 kg Fredis Buckner MD Work Phone: [facility] 03-29-2024 15:44-0400 Diastolic blood pressure 79 mm[Hg] Fredis Buckner MD Work Phone: [facility] 03-29-2024 15:44-0400 Heart rate 80 /min Fredis Buckner MD Work Phone: [facility] 03-29-2024 15:44-0400 Respiratory rate 15 /min Fredis Buckner MD Work Phone: [facility] 03-29-2024 15:44-0400 SaO2% (BldA) [Mass fraction] 100 % Fredis Buckner MD Work Phone: [facility] 03-29-2024 15:44-0400 Systolic blood pressure 127 mm[Hg] Fredis Buckner MD Work Phone: [facility] 03-15-2024 14:07-0400 Body height 165.3 cm Fredis Buckner MD Work Phone: [facility] 03-15-2024 14:07-0400 Body mass index (BMI) [Ratio] 20.58 kg/m2 Fredis Buckner MD Work Phone: [facility] 03-15-2024 14:07-0400 Body temperature 97.81 [degF] Fredis Buckner MD Work Phone: [facility] 03-15-2024 14:07-0400 Body weight 56.25 kg Fredis Buckner MD Work Phone: [facility] 03-15-2024 14:07-0400 Diastolic blood pressure 80 mm[Hg] Fredis Buckner MD Work Phone: [facility] 03-15-2024 14:07-0400 Heart rate 74 /min Fredis Buckner MD Work Phone: [facility] 03-15-2024 14:07-0400 SaO2% (BldA) [Mass fraction] 100 % Fredis Buckner MD Work Phone: [facility] 03-15-2024 14:07-0400 Systolic blood pressure 134 mm[Hg] Fredis Buckner MD Work Phone: [facility] 02-24-2024 19:03-0400 Body mass index (BMI) [Ratio] 20.76 kg/m2 Romel Michelle MD Work Phone: [facility] 02-24-2024 19:03-0400 Body temperature 98.4 [degF] Romel Michelle MD Work Phone: [facility] 02-24-2024 19:03-0400 Body weight 56.7 kg oRmel Michelle MD Work Phone: [facility] 02-24-2024 19:03-0400 Diastolic blood pressure 76 mm[Hg] Romel Michelle MD Work Phone: [facility] 02-24-2024 19:03-0400 Heart rate 80 /min Romel Michelle MD Work Phone: [facility] 02-24-2024 19:03-0400 Respiratory rate 18 /min Romel Michelle MD Work Phone: [facility] 02-24-2024 19:03-0400 SaO2% (BldA) [Mass fraction] 100 % Romel Michelle MD Work Phone: [facility] 02-24-2024 19:03-0400 Systolic blood pressure 124 mm[Hg] Romel Michelle MD Work Phone: [facility] 10-31-2022 08:16-0500 Body temperature 97.39 [degF] Nuria Adilia CONTESTANT COORDINATOR.PHOTOGRAPHER LITHOGRAPHIC Work Phone: [facility] 10-31-2022 08:16-0500 Body weight 60.96 kg Nuria Adilia CONTESTANT COORDINATOR.PHOTOGRAPHER LITHOGRAPHIC Work Phone: [facility] 10-31-2022 08:16-0500 Diastolic blood pressure 82 mm[Hg] Nuria Adilia CONTESTANT COORDINATOR.PHOTOGRAPHER LITHOGRAPHIC Work Phone: [facility] 10-31-2022 08:16-0500 Heart rate 95 /min Nuria Adilia CONTESTANT COORDINATOR.PHOTOGRAPHER LITHOGRAPHIC Work Phone: [facility] 10-31-2022 08:16-0500 Respiratory rate 21 /min Nuria Adilia CONTESTANT COORDINATOR.PHOTOGRAPHER LITHOGRAPHIC Work Phone: [facility] 10-31-2022 08:16-0500 SaO2% (BldA) [Mass fraction] 100 % Nuria Adilia CONTESTANT COORDINATOR.PHOTOGRAPHER LITHOGRAPHIC Work Phone: [facility] 10-31-2022 08:16-0500 Systolic blood pressure 138 mm[Hg] Nuria Pat PHOTOGRAPHER LITHOGRAPHIC Work Phone: [facility] 06-28-2022 08:44-0400 Body height 167 cm Romel Michelle MD Work Phone: [facility] 06-28-2022 08:44-0400 Body temperature 97.5 [degF] Romel Michelle MD Work Phone: [facility] 06-28-2022 08:44-0400 Body weight 59.6 kg Romel Michelle MD Work Phone: [facility] 06-28-2022 08:44-0400 Diastolic blood pressure 76 mm[Hg] Romel Michelle MD Work Phone: [facility] 06-28-2022 08:44-0400 Heart rate 64 /min Romel Michelle MD Work Phone: [facility] 06-28-2022 08:44-0400 Respiratory rate 16 /min Romel Michelle MD Work Phone: [facility] 06-28-2022 08:44-0400 SaO2% (BldA) [Mass fraction] 100 % Romel Michelle MD Work Phone: [facility] 06-28-2022 08:44-0400 Systolic blood pressure 128 mm[Hg] Romel Michelle MD Work Phone: [facility] Encounters Encounter Date Encounter Type Care Provider Facility Start: 04-26-2025 Non-patient / Non-visit Ankur Colon DO -[facility] Start: 04-26-2025 End: 04-26-2025 Admission to same day surgery center Ankur Colon DO -Endoscopy Work Phone: Start: 04-26-2025 End: 04-26-2025 ambulatory Ankur Colon Facility:[facility] Start: 04-25-2025 End: 04-25-2025 ambulatory ROMEL MICHELLE Facility:[facility] Start: 04-20-2025 End: 04-20-2025 Patient encounter procedure Linda Nuñez CONTESTANT COORDINATOR.PHOTOGRAPHER LITHOGRAPHIC Work Phone: Hematology/Oncology Start: 04-20-2025 End: 04-20-2025 ambulatory Linda Nuñez CONTESTANT COORDINATOR.PHOTOGRAPHER LITHOGRAPHIC Work Phone: Hematology/Oncology Comment on above: 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) Start: 04-13-2025 End: 04-13-2025 Telephone encounter Nile Hall DO Work Phone: Hematology/Oncology Comment on above: Results (platelet 23 ) Start: 04-13-2025 End: 04-13-2025 ambulatory ROMEL D TALAMPAS Facility:[facility] Start: 04-06-2025 End: 04-06-2025 ambulatory ROMEL D TALAMPAS [facility] [facility] Start: 03-31-2025 End: 04-01-2025 Telephone encounter Nile Hall DO Work Phone: Hematology/Oncology Comment on above: Results Start: 03-30-2025 End: 03-30-2025 ambulatory ROMEL D TALAMPAS Facility:[facility] Start: 03-22-2025 End: 03-23-2025 ambulatory Nile Hall DO Work Phone: Hematology/Oncology Comment on above: Receipt of Zejula Start: 03-21-2025 End: 03-21-2025 ambulatory NILE HALL Facility:[facility] Start: 03-21-2025 End: 03-21-2025 ambulatory Treatment Rm 15 Kan [facility] Work Phone: Hematology/Oncology Comment on above: Iron malabsorption ( HCC) (Primary Dx); 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 loss Start: 03-18-2025 End: 03-22-2025 Telephone encounter Krystin Sam RN Work Phone: Hematology/Oncology Comment on above: Care Coordination (S tart Zejula) Start: 03-17-2025 End: 03-17-2025 ambulatory Treatment Rm 15 Kan [facility] Work Phone: Hematology/Oncology Comment on above: Iron malabsorption ( HCC) (Primary Dx); 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 loss Start: 03-15-2025 End: 03-15-2025 ambulatory Treatment Rm 17 Kan [facility] Work Phone: Hematology/Oncology Comment on above: Iron malabsorption ( HCC) (Primary Dx); 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 loss Approval Notificatio n Start: 03-14-2025 End: 03-14-2025 Telephone encounter Yulia Holm RN Hematology/Oncology Comment on above: Boot Trimmer - O ther (Oral Anti-Cancer Agents Education (Zejula) ) Refill Request Start: 03-11-2025 End: 03-11-2025 ambulatory Treatment Rm 17 [facility] Work Phone: Hematology/Oncology Comment on above: Iron malabsorption ( HCC) (Primary Dx); 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 loss Start: 03-09-2025 End: 04-20-2025 Telephone encounter Carey Elias APRN.PHOTOGRAPHER LITHOGRAPHIC Work Phone: Gynecology Comment on above: Patient Update Start: 03-09-2025 End: 03-09-2025 ambulatory Treatment Rm 18 [facility] Work Phone: Hematology/Oncology Comment on above: Iron malabsorption ( HCC) (Primary Dx); 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 loss Start: 03-03-2025 End: 03-03-2025 ambulatory Maurilio Trujillo [facility] Start: 03-03-2025 End: 03-03-2025 Patient encounter procedure Maurilio Trujillo formerly [facility] Comment on above: SPP Oral Oncology/he matology - Treatment Referral (Zejula 300mg); Insurance Authorization (Pending [place]) Start: 03-02-2025 End: 03-07-2025 Telephone encounter Nile Hall DO Work Phone: Hematology/Oncology Comment on above: Results Start: 03-02-2025 End: 03-02-2025 Patient encounter procedure Nile Hall DO Work Phone: Hematology/Oncology Start: 03-02-2025 End: 03-02-2025 ambulatory Nile Hall DO Work Phone: Hematology/Oncology Comment on above: 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 Romel Michelle MD Work Phone: 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 Leydi Carmen MD -[facility] Start: 01-10-2025 End: 01-10-2025 Admission to same day surgery center Dr. Leydi Carmen MD -Endoscopy Work Phone: Start: 01-10-2025 End: 01-10-[address] 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 Leydi Carmen MD -[facility] Start: 12-21-2024 End: 12-21-2024 Admission to same day surgery center Dr. Leydi Carmen MD -Endoscopy Work Phone: Start: 12-21-2024 End: 12-21-[address] Romel Michelle MD Work Phone: [facility] Work Phone: Start: 12-17-2024 End: 12-17-[address] Leydi Carmen MD -[facility] Work Phone: Start: 12-17-2024 End: 12-17-2024 ambulatory Romel Michelle Facility[facility] Start: 12-16-2024 End: 12-16-2024 ambulatory NILE HALL Facility:[facility] Start: 12-16-2024 End: 12-16-2024 Subsequent hospital visit by physician Ct Prep [facility] Cat Scan Comment on above: 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.9] Start: 12-03-2024 End: 12-03-2024 ambulatory Treatment Rm 2 Kan [facility] Work Phone: Hematology/Oncology Comment on above: 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) Start: 12-02-2024 End: 12-02-2024 Telephone encounter Nile Hall DO Work Phone: Hematology/Oncology Comment on above: AVS 12/02 Start: 12-02-2024 End: 12-02-2024 Office outpatient visit 25 minutes Nile Hall DO Work Phone: Hematology/Oncology Comment on above: 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); Painless rectal bleeding Start: 12-02-2024 End: 12-02-2024 ambulatory ROMEL D TALAMPAS Facility:[facility] Start: 11-12-2024 End: 11-12-2024 ambulatory Treatment Rm 2 Kan [facility] Work Phone: Hematology/Oncology Comment on above: 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) Start: 11-11-2024 End: 11-11-2024 Patient encounter procedure Linda Nuñez CONTESTANT COORDINATOR.PHOTOGRAPHER LITHOGRAPHIC Work Phone: Hematology/Oncology Start: 11-11-2024 End: 11-11-2024 ambulatory Linda Nuñez CONTESTANT COORDINATOR.PHOTOGRAPHER LITHOGRAPHIC Work Phone: Hematology/Oncology Comment on above: 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) Start: 10-22-2024 End: 10-22-2024 ambulatory Treatment Rm 2 Kan [facility] Work Phone: Hematology/Oncology Comment on above: 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) Start: 10-20-2024 End: 10-20-2024 Telephone encounter Yulia Holm RN Hematology/Oncology Comment on above: Medication Request Start: 10-15-2024 End: 10-15-2024 Telephone encounter Nile Hall DO Work Phone: Hematology/Oncology Comment on above: Chemotherapy Treatme nt Start: 10-15-2024 End: 10-15-2024 Office outpatient visit 25 minutes Nile Hall DO Work Phone: Hematology/Oncology Comment on above: 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) Start: 10-15-2024 End: 10-15-2024 ambulatory ROMEL D TALAMPAS Facility:[facility] Start: 10-08-2024 End: 10-08-2024 ambulatory FREDIS BUCKNER Facility:[facility] Start: 10-07-2024 End: 10-08-2024 Telephone encounter Nile Hall DO Work Phone: Hematology/Oncology Comment on above: Appointment Start: 10-07-2024 End: 10-07-2024 ambulatory FREDIS BUCKNER Facility:[facility] Start: 10-07-2024 End: 10-07-2024 Nutrition therapy Fredis Buckner MD Work Phone: Gynecology Oncology Comment on above: Postop check (Primar y Dx); Severe protein-calorie malnutrition (HCC) Start: 10-07-2024 End: 10-07-2024 Patient encounter procedure Fredis Buckner MD Work Phone: Gynecology Oncology Start: 10-04-2024 End: 10-04-2024 Telephone encounter Veronica Galvan RN Gynecology Comment on above: Returning Patient's Call Appointment; Patient Update Start: 09-22-2024 End: 09-24-2024 Telephone encounter Sydney Ahumada RN Gynecology Oncology Comment on above: Patient Update Appointment Start: 09-20-2024 End: 09-20-2024 Telephone encounter Sydney Ahumada RN Gynecology Oncology Comment on above: Boot Trimmer - O ther; Patient Update Start: 09-17-2024 End: 09-17-2024 ambulatory ROMEL Yumiko GUTHRIEFREDDIE Facility:[facility] Start: 09-17-2024 End: 09-17-2024 Nursing evaluation of patient and report Per Diem Registered Nurse Onc Nurse Ca 4 Work Phone: Gynecology Oncology Comment on above: Removal of dave ( Primary Dx) Start: 09-16-2024 End: 09-16-2024 ambulatory Fredis Buckner MD Work Phone: Gynecology Oncology Start: 09-16-2024 End: 09-16-2024 Follow-up encounter Fredis Buckner MD Work Phone: Gynecology Oncology Comment on above: Surgery Follow up qu estions Start: 09-15-2024 End: 09-15-2024 Patient Outreach Kendy Pittman RN Work Phone: Hospital Fellow Management Comment on above: Transition Of Care ( /tcm d/c 09/13/24) Initial phone contact for Transitional Care Management Patient Question; Pa tient Update Start: 09-14-2024 End: 09-15-2024 ambulatory Rosi Martinez CONTESTANT COORDINATOR.PHOTOGRAPHER LITHOGRAPHIC Work Phone: Gynecology Oncology Comment on above: 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 ) Boot Trimmer - O ther (Hospital Discharge ) Start: 09-09-2024 End: 09-13-2024 Telephone encounter Ema Hinojosa LPN Work Phone: [facility] Comment on above: Home Care (MD to Naz gutiérrez) Start: 09-08-2024 End: 09-08-2024 Telephone encounter Ema Vega MD Work Phone: Gynecology Comment on above: Returning Patient's Call Start: 09-08-2024 End: 09-13-2024 Evaluation and management of inpatient FREDIS BUCKNER Facility:[facility] Start: 09-07-2024 End: 09-07-2024 Patient encounter procedure Fredis Buckner MD Work Phone: Gynecology Oncology Start: 09-07-2024 End: 09-07-2024 ambulatory Fredis Buckner MD Work Phone: Gynecology Oncology Comment on above: 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 Start: 09-07-2024 End: 09-07-2024 Admission to establishment [facility] Work Phone: Pre Anesthesia Start: 09-07-2024 End: 09-07-2024 Anesthesia consultation [facility] 6 Work Phone: Pre Anesthesia Comment on above: Pre-op evaluation (P rimary Dx); Irritable bowel syndrome with diarrhea Start: 09-07-2024 End: 09-07-2024 Preprocedural examination done [facility] Main Work Phone: [facility] Work Phone: Start: 09-03-2024 End: 09-03-2024 Telephone encounter Fredis Buckner MD Work Phone: Gynecology Oncology Comment on above: Appointment (1st att empt for Pre & Post-Op Instructions. Left message to call provider's office.) Start: 09-03-2024 End: 09-03-2024 ambulatory Per Diem Registered Nurse Onc Nurse Ca 4 Work Phone: Gynecology Oncology Comment on above: Educational circumst ances (Primary Dx) Start: 09-03-2024 End: 09-03-2024 Telemedicine consultation with patient Per Diem Registered Nurse Onc Nurse Ca 4 Work Phone: Gynecology Oncology Start: 09-01-2024 End: 09-01-2024 Preprocedural examination done Karla Ford APRN.CNP Work Phone: [facility] Start: 09-01-2024 End: 09-01-2024 Telephone encounter Karla Ford APRN.CNP Work Phone: Gynecology Oncology Comment on above: Appointment Start: 08-31-2024 End: 08-31-2024 ambulatory Nile Hall DO Work Phone: Hematology/Oncology Comment on above: CT results Start: 08-31-2024 End: 08-31-2024 E-mail encounter from caregiver Nile Hall Work Phone: Hematology/Oncology Start: 08-25-2024 End: 08-25-2024 ambulatory NILE HALL Facility:[facility] Start: 08-25-2024 End: 08-25-2024 Subsequent hospital visit by physician Ct Prep [facility] Cat Scan Comment on above: 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.9] Start: 08-19-2024 End: 08-19-2024 Telephone encounter Matthew Moreland RN Gynecology Comment on above: Research Start: 08-15-2024 End: 09-03-2024 ambulatory Nile Hall DO Work Phone: Hematology/Oncology Comment on above: Pre & Post-Op Instru ctions Start: 08-15-2024 End: 09-03-2024 E-mail encounter from caregiver Nile Hall DO Work Phone: Hematology/Oncology Start: 08-12-2024 End: 08-12-2024 ambulatory Treatment Rm 2 Kan [facility] Work Phone: Hematology/Oncology Comment on above: 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) Start: 08-11-2024 End: 08-11-2024 Office outpatient visit 25 minutes Nile Hall DO Work Phone: Hematology/Oncology Comment on above: 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) Start: 08-11-2024 End: 08-16-2024 ambulatory Romel Michelle MD Work Phone: Internal Medicine [place] [id number] Start: 07-28-2024 End: 07-28-2024 Telephone encounter Nile Hall DO Work Phone: Hematology/Oncology Comment on above: Chemotherapy Treatme nt Start: 07-26-2024 End: 09-03-2024 ambulatory [facility] Gynecology Comment on above: Pre & Post-Op Instuc tions with Bowel Prep Start: 07-26-2024 End: 09-03-2024 E-mail encounter from caregiver [facility] Provider Gynecology Start: 07-26-2024 End: 07-26-2024 Telephone encounter Matthew Moreland RN Gynecology Comment on above: Research (IRB#: [id number]/ [id number] HLA results) Start: 07-23-2024 End: 07-23-2024 ambulatory Treatment Rm 7 Kan [facility] Work Phone: Hematology/Oncology Comment on above: 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); Gross hematuria Start: 07-22-2024 End: 07-22-2024 Telephone encounter Nile Hall DO Work Phone: Hematology/Oncology Comment on above: Results Start: 07-21-2024 End: 07-21-2024 Patient encounter procedure Nile Hall DO Work Phone: Hematology/Oncology Start: 07-21-2024 End: 07-28-2024 ambulatory Nile Hall DO Work Phone: Hematology/Oncology Comment on above: 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) Start: 07-18-2024 End: 07-18-2024 ambulatory Leia Eaton RN Gynecology Oncology Start: 07-16-2024 End: 07-16-2024 ambulatory Fredis Buckner MD Work Phone: Gynecology Oncology Comment on above: 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); Elevated cancer antigen 125 (CA-125) Start: 07-16-2024 End: 07-16-2024 Patient encounter procedure Fredis Buckner MD Work Phone: Gynecology Oncology Start: 07-01-2024 End: 07-01-2024 ambulatory Treatment Rm 2 Kan [facility] Work Phone: Hematology/Oncology Comment on above: 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) Start: 06-30-2024 End: 06-30-2024 Nutrition therapy Nile Hall DO Work Phone: Hematology/Oncology Comment on above: 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); Inadequate nutrition Start: 06-30-2024 End: 06-30-2024 Patient encounter procedure Nile Hall DO Work Phone: Hematology/Oncology Start: 06-30-2024 End: 06-30-2024 ambulatory NILE HALL Facility:[facility] Start: 06-23-2024 End: 06-23-2024 ambulatory Miladis Parker MS Work Phone: [employer] Start: 06-23-2024 End: 06-23-2024 Subsequent hospital visit by physician Marta [facility] ([facility]) Work Phone: Cat Scan Comment on above: 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.9] Start: 06-18-2024 End: 06-18-2024 ambulatory Estefany Teodoro LOPEZ Work Phone: Nutrition Therapy Start: 06-18-2024 End: 06-18-2024 Nutrition therapy Estefany Valerio RD Work Phone: Nutrition Therapy Comment on above: Nutrition Telephone Start: 06-15-2024 End: 06-15-2024 ambulatory Miladis Parker MS Work Phone: [facility] Comment on above: High grade ovarian c ancer (HCC) Start: 06-15-2024 End: 06-15-2024 Telemedicine consultation with patient Miladis Parker MS Work Phone: [employer] [facility] Start: 06-14-2024 End: 06-15-2024 Telephone encounter Nile Hall DO Work Phone: Hematology/Oncology Comment on above: Follow Up Start: 06-11-2024 End: 06-11-2024 ambulatory Treatment Rm 6 Kan [facility] Work Phone: Hematology/Oncology Comment on above: 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) Start: 06-10-2024 End: 06-10-2024 Home visit Avril Graham RN Work Phone: [facility] Comment on above: SN AGENCY DC W VISIT Start: 06-08-2024 End: 06-08-2024 Patient encounter procedure Linda Nuñez CONTESTANT COORDINATOR.PHOTOGRAPHER LITHOGRAPHIC Work Phone: Hematology/Oncology Start: 06-08-2024 End: 06-08-2024 ambulatory Linda Nuñez CONTESTANT COORDINATOR.PHOTOGRAPHER LITHOGRAPHIC Work Phone: Hematology/Oncology Comment on above: 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) Start: 05-31-2024 End: 05-31-2024 Home visit Avril Graham RN Work Phone: [facility] Comment on above: SN ROUTINE Start: 05-29-2024 End: 07-05-2024 Telephone encounter Jason Oswald RN Work Phone: [facility] Comment on above: Home Care (Request f or extension on SN visit orders.) Start: 05-25-2024 End: 07-05-2024 Telephone encounter Jason Oswald RN Work Phone: [facility] Comment on above: Home Care (Need to e xtend SN visits for home health 1wk2.) Start: 05-24-2024 End: 05-24-2024 Home visit Avril Graham RN Work Phone: [facility] Comment on above: SN ROUTINE Start: 05-19-2024 Telephone encounter Fredis Carmen se, MD Work Phone: [facility] Comment on above: Erroneous encounter- disregard Start: 05-19-2024 End: 05-19-2024 ambulatory Treatment Rm 1 Kna [facility] Work Phone: Hematology/Oncology Comment on above: 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) Start: 05-18-2024 End: 05-18-2024 Orders Only Fredis Buckner MD Work Phone: Gynecology Oncology Comment on above: 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); Severe protein-calorie malnutrition (HCC) Nutrition Counseling Start: 05-17-2024 End: 05-17-2024 Home visit Avril Graham RN Work Phone: [facility] Comment on above: SN ROUTINE Start: 05-14-2024 Telephone encounter Nile gonzales DO Work Phone: Hematology/Oncology Comment on above: Patient Question Start: 05-13-2024 End: 05-13-2024 Home visit Avril Graham RN Work Phone: [facility] Comment on above: SN ROUTINE Start: 05-10-2024 Telephone encounter Nile gonzales DO Work Phone: Hematology/Oncology Comment on above: Patient Question Start: 05-10-2024 End: 05-10-2024 Home visit Avril Graham RN Work Phone: [facility] Comment on above: SN ROUTINE Start: 05-06-2024 End: 05-06-2024 Home visit Avril Most RN Work Phone: [facility] Comment on above: SN ROUTINE Start: 05-03-2024 End: 05-03-2024 Home visit Avril Graham RN Work Phone: [facility] Comment on above: SN ROUTINE Start: 05-01-2024 End: 05-01-2024 ambulatory STEPHEN DEJESUS Facility:[facility] Start: 04-29-2024 Telephone encounter Yulia Holm RN He matology/Oncology Comment on above: Boot Trimmer - O ther (C1D1 Post Treatment Call (Carboplatin/Paclitaxel) ) Start: 04-29-2024 End: 04-29-2024 Home visit Avril Graham RN Work Phone: [facility] Comment on above: SN ROUTINE Start: 04-28-2024 End: 04-28-2024 ambulatory Treatment Rm 2 Kan [facility] Work Phone: Hematology/Oncology Comment on above: 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) Start: 04-27-2024 End: 04-27-[address] Work Phone: Nutrition Therapy Start: 04-27-2024 End: 04-27-2024 Nutrition therapy Estefany Valerio RD Work Phone: Nutrition Therapy Comment on above: Nutrition Assessment Start: 04-27-2024 Telephone encounter Financial Navigator Kan Work Phone: Hematology/Oncology Comment on above: Benefits Investigati on Start: 04-26-2024 End: 04-26-2024 Home visit Avril Graham RN Work Phone: [facility] Comment on above: SN ROUTINE Start: 04-26-2024 End: 04-26-2024 ammunition storage superintendent [facility] Work Phone: Hematology/Oncology Comment on above: Encounter for educat ion (Primary Dx) Start: 04-22-2024 End: 04-22-2024 ambulatory Nile Hall DO Work Phone: Hematology/Oncology Comment on above: High grade ovarian c ancer (HCC) ACM ARIC RN ( ED Utilization review per payer request ) Start: 04-22-2024 End: 04-22-2024 Home visit Mariajose Carpenter RN Work Phone: [facility] Comment on above: SN ROUTINE Start: 04-22-2024 End: 04-22-2024 Patient encounter procedure Nile Hall DO Work Phone: Hematology/Oncology Start: 04-19-2024 End: 04-19-2024 Refill Carey Elias APRN.PHOTOGRAPHER LITHOGRAPHIC Work Phone: Gynecology Comment on above: 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); Abdominal bloating; Pelvic mass SN ROUTINE New Patient Start: 04-16-2024 Orders Only Fredis Calderon Work Phone: Gynecology Oncology Start: 04-15-2024 End: 04-15-2024 Home visit Avril Graham RN Work Phone: [facility] Comment on above: SN SOC Start: 04-12-2024 Telephone encounter Brielle guerra Work Phone: [facility] Comment on above: Home Care (Confirmat ion call ) Start: 04-06-2024 ambulatory Liz Parra RN Work Phone: Hospital Fellow Management Start: 04-06-2024 Follow-up encounter Liz Parra RN Work Phone: Hospital Fellow Management Comment on above: Transition Of Care ( Fabric Value Based Non-Response Follow up) Start: 04-02-2024 End: 04-02-2024 Admission to establishment [facility] 2 Work Phone: Pre Anesthesia Start: 04-02-2024 End: 04-02-2024 Anesthesia consultation [facility] 2 Work Phone: Pre Anesthesia Comment on above: Preoperative examina tion (Primary Dx); Irritable bowel syndrome with diarrhea; Other ascites Start: 04-02-2024 End: 04-02-2024 Preprocedural examination done [place] [id number] Work Phone: [facility] Work Phone: Start: 04-01-2024 Telephone encounter Romel villarreal MD Work Phone: Internal Medicine [place] Comment on above: Patient Question Start: 03-31-2024 ambulatory Xiao haddad RN Work Phone: Hospital Fellow Management Start: 03-31-2024 Follow-up encounter Xiao avalos RN Work Phone: Hospital Fellow Management Comment on above: Transition Of Care ( TCM (Fabric Value Based non response follow up)) Start: 03-29-2024 End: 03-29-2024 Manual pelvic examination Fredis Buckner MD Work Phone: Gynecology Comment on above: Pelvic mass (Primary Dx) Start: 03-29-2024 End: 03-29-2024 Patient encounter procedure Fredis Buckner MD Work Phone: Gynecology Start: 03-26-2024 ambulatory Deloris casillas RN Work Phone: Hospital Fellow Management Start: 03-26-2024 Telephone encounter Bee Anglin RN Gy necology Comment on above: Patient Question Transition Of Care ( TCM [facility] Non-Response) Start: 03-22-2024 Telephone encounter Linn lovelace LPN Work Phone: [facility] Comment on above: Home Care (MD edgar gutiérrez for [facility]. ) Start: 03-16-2024 Telephone encounter Aga Meredith APRN.PHOTOGRAPHER LITHOGRAPHIC Work Phone: Gynecology Oncology Comment on above: Boot Trimmer - O ther Start: 03-16-2024 End: 03-16-2024 ambulatory Per Diem Registered Nurse Onc Nurse Ca 4 Work Phone: Gynecology Oncology Comment on above: Educational circumst ances (Primary Dx) Start: 03-16-2024 End: 03-16-2024 Telemedicine consultation with patient Per Diem Registered Nurse Onc Nurse Ca 4 Work Phone: Gynecology Oncology Start: 03-16-2024 End: 03-16-2024 Subsequent hospital visit by physician Marta [facility] Wstr (I-Stat) Work Phone: Cat Scan Comment on above: Pelvic mass [R19.00] Start: 03-15-2024 ambulatory Tarsha Burgos chely CONTESTANT COORDINATOR.PHOTOGRAPHER LITHOGRAPHIC Work Phone: Gynecology Start: 03-15-2024 End: 03-15-2024 Manual pelvic examination Fredis Buckner MD Work Phone: Gynecology Comment on above: Pelvic mass (Primary Dx); Pre-op examination Start: 03-15-2024 End: 03-15-2024 Patient encounter procedure Fredis Buckner MD Work Phone: Gynecology Start: 03-15-2024 End: 03-15-2024 Preprocedural examination done Tarsha Neveslokesh CONTESTANT COORDINATOR.PHOTOGRAPHER LITHOGRAPHIC Work Phone: [facility] Start: 03-11-2024 Telephone encounter Ema silveira RN Gynecology Comment on above: New Patient Start: 03-10-2024 Telephone encounter Romel villarreal MD Work Phone: Internal Medicine [place] Comment on above: Results Start: 03-10-2024 End: 03-10-2024 Subsequent hospital visit by physician Ct [facility] (I-Stat) Work Phone: Cat Scan Comment on above: Generalized abdomina l pain [R10.84] Start: 03-08-2024 Telephone encounter Romel villarreal MD Work Phone: Internal Medicine [place] Comment on above: Question Start: 03-04-2024 ambulatory Lucy Samuel RN NURSE [employer]PER Comment on above: Information Start: 03-04-2024 End: 03-04-2024 Subsequent hospital visit by physician Xr [facility] Patricio Szymanski Work Phone: Radiology Comment on above: Generalized abdomina l pain [R10.84] Start: 03-02-2024 Telephone encounter Romel villarreal MD Work Phone: Family Medicine [place] Comment on above: stomach problem Start: 02-24-2024 End: 02-24-2024 Office outpatient visit 25 minutes Romel Michelle MD Work Phone: Internal Medicine [place] Comment on above: Abdominal distension (gaseous) (Primary Dx); Irritable bowel syndrome with both constipation and diarrhea Start: 12-22-2023 Refill Cathy IBARRAPHOTOGRAPHER LITHOGRAPHIC Work Phone: [facility] Medicine Comment on above: Refill Request Start: 06-17-2023 Refill Romel monson MD Work Phone: Internal Medicine [place] Comment on above: Refill Request Start: 10-31-2022 End: 10-31-2022 Patient encounter procedure Nuria Pat CONTESTANT COORDINATOR.PHOTOGRAPHER LITHOGRAPHIC Work Phone: [facility] Comment on above: Dysfunction of both eustachian tubes (Primary Dx); URI with cough and congestion Start: 08-14-2022 ambulatory Romel monson MD Work Phone: Internal Medicine [facility] Start: 07-01-2022 End: 07-01-2022 ambulatory [facility] Work Phone: Start: 07-01-2022 End: 07-01-2022 Patient encounter procedure [facility] Start: 06-28-2022 End: 06-28-2022 Office outpatient visit 40 minutes Romel Michelle MD Work Phone: Internal Medicine [place] Comment on above: Irritable bowel synd kilo with diarrhea (Primary Dx); Age-related osteoporosis without current pathological fracture; Encounter for long-term current use of medication Start: 06-04-2022 End: 06-04-2022 Subsequent hospital visit by physician Bone Density [facility] Work Phone: Radiology Comment on above: Osteopenia of both h ips [M85.851, M85.852] Start: 05-20-2022 Telephone encounter Romel villarreal MD Work Phone: Internal Medicine [place] Comment on above: Patient Question Start: 12-26-2021 [facility] Comment on above: Population Health Na vigation Outreach ([employer] Gaps) Procedures Date Procedure Procedure Detail Performing Clinician Start: 04-26-[address] Romel ford MD Work Phone: Start: 01-10-[address] Romel Michelle MD Work Phone: Start: 12-24-2024 Urnls dip stick/tabl et rgnt auto w/o microscopy [facility] Provider Start: 12-21-2024 End: 12-21-[address] Romel Michelle MD Work Phone: Start: 09-07-2024 Antibody screen NILE RODRIGUEZ Comment on above: Order Comment: Speci men Type: BLOOD SPECIMENOrdering Facility: [facility] Address: [address] [place] [address] Performed By: #### T [id number] ####CC MAIN BLOOD BANKCLIA [id number] [address] Start: 07-23-2024 Blood count complete auto&auto difrntl wbc Nile Hall DO Work Phone: Start: 04-28-2024 Lipid 1996 panel - S anita or Plasma Avril Graham RN Work Phone: Start: 04-02-2024 Ecg routine ecg w/le ast 12 lds i&r only Estefany Cash PA-C Work Phone: Start: 03-16-2024 Ct thorax w/o contra st material Fredis Buckner MD Work Phone: Start: 03-10-2024 Ct abdomen & pelvis w/contrast material Romel Michelle MD Work Phone: Start: 07-01-2022 Screening mammography Start: 06-28-2022 Adult depression scr eening assessment Romel Michelle MD Work Phone: Start: 06-04-2022 Dxa bone density ladi dy 1/> sites axial skel Romel Michelle MD Work Phone: Start: 06-28-2021 Mammography Carey D opart Start: 06-26-2021 Adult depression scr eening assessment Carey Dopart Start: 09-10-2019 Lipid 1996 panel - S anita or Plasma Romel Michelle MD Work Phone: Start: 11-22-2015 Colonoscopy Carey bullock Plan of Treatment Date Care Activity Detail Author Start: 12-21-2034 Screening for malign ant neoplasm of colon [facility] Start: 04-28-2029 Lipid panel Lipid Screening [facility] Start: 04-20-2028 Diabetes Screening Diabetes Screenin g [facility] Start: 03-30-2028 Diabetes Screening Diabetes Screenin g [facility] Start: 03-02-2028 Diabetes Screening Diabetes Screenin g [facility] Start: 02-04-2028 Diabetes Screening Diabetes Screenin g [facility] Start: 12-25-2027 Diabetes Screening Diabetes Screenin g [facility] Start: 12-02-2027 Diabetes Screening Diabetes Screenin g [facility] Start: 11-11-2027 Diabetes Screening Diabetes Screenin g [facility] Start: 10-22-2027 Diabetes Screening Diabetes Screenin g [facility] Start: 10-15-2027 Diabetes Screening Diabetes Screenin g [facility] Start: 09-13-2027 Diabetes Screening Diabetes Screenin g [facility] Start: 09-07-2027 Diabetes Screening Diabetes Screenin g [facility] Start: 08-11-2027 Diabetes Screening Diabetes Screenin g [facility] Start: 07-21-2027 Diabetes Screening Diabetes Screenin g [facility] Start: 06-30-2027 Diabetes Screening Diabetes Screenin g [facility] Start: 06-08-2027 Diabetes Screening Diabetes Screenin g [facility] Start: 05-18-2027 Diabetes Screening Diabetes Screenin g [facility] Start: 04-28-2027 Diabetes Screening Diabetes Screenin g [facility] Start: 04-22-2027 Diabetes Screening Diabetes Screenin g [facility] Start: 04-12-2027 Diabetes Screening Diabetes Screenin g [facility] Start: 04-11-2027 Diabetes Screening Diabetes Screenin g [facility] Start: 03-24-2027 Diabetes Screening Diabetes Screenin g [facility] Start: 03-15-2027 Diabetes Screening Diabetes Screenin g [facility] Start: 03-10-2027 Diabetes Screening Diabetes Screenin g [facility] Start: 07-11-2026 Diabetes Screening Diabetes Screenin g [facility] Start: 11-22-2025 Colonoscopy COLONOSCOPY [facility] Start: 11-22-2025 COLORECTAL CANCER SCREENING COLORECTAL CANCER SCREENING [facility] Start: 11-22-2025 Screening for malign ant neoplasm of colon [facility] Start: 06-25-2025 DIABETES [facility]CREEN [facility] Start: 06-25-2025 Diabetes Screening Diabetes Screenin g [facility] Start: 06-06-2025 Influenza vaccination Influenza Vacc ine (#1) [facility] Start: 05-30-2025 End: 05-30-2025 ambulatory 05/30/2025 10:00 AM EDT Visit (SP) Office Gynecology [address] [place] [address] [place] [address] [place] [address] f/u - 6 mo Gynecology Comment on above: f/u - 6 mo Start: 04-27-2025 End: 04-27-2025 Specialty Pharmacy 04/27/2025 10:00 AM EDT Specialty Pharmacy [facility] [place] [address] Pharmacist, Specialty[facility] [address] [place] [address] Refill - Zejula. 30DS. Lab 04/13 - HOLDING OF 04/13 - check chart for update [facility] Comment on above: Refill - Zejula. 30D S. Lab 04/13 - HOLDING OF 04/13 - check chart for update Start: 04-26-2025 Patient discharge [facility] Start: 04-25-2025 End: 04-25-2025 ambulatory 04/25/2025 8:45 AM EDT Results Only Patricio Hernándezwn [facility] [address] [place] [address] Repeat CBC [facility] Comment on above: Repeat CBC Start: 04-25-2025 [facility] Start: 04-21-2025 End: 07-21-2025 Cancer Ag 125 [Units/volume] in Serum or Plasma CA 125 Lab Routine High grade ovarian cancer (HCC) Expected: 04/21/2025 (Approximate), Expires: 07/21/2025 [facility] Comment on above: Expected: 04/21/2025 (Approximate), Expires: 07/21/2025 Start: 04-20-2025 End: 04-20-2025 [facility] Comment on above: QWK CBC(?TX) 1MO OV/EARLY LAB Start: 04-20-2025 End: 04-20-2025 Specialty Pharmacy 04/20/2025 7:15 AM EDT Specialty Pharmacy [facility] [address] [place] [address] [address] Pharmacist, [facility] [address] [place] [address] [place], [place] [id number] Refill - Zejula. 30DS. Lab 04/13 - HOLDING OF 04/13 - check chart for update [facility] Comment on above: Refill - Zejula. 30D S. Lab 04/13 - HOLDING OF 04/13 - check chart for update Start: 04-13-2025 End: 04-13-2025 ambulatory 04/13/2025 8:30 AM EDT Results Only Patricio [facility] [address] [place] [address] QWK CBC(?TX) Patricio [facility] Comment on above: QWK CBC(?TX) Start: 04-12-2025 End: 04-12-2025 Specialty Pharmacy 04/12/2025 10:00 AM EDT Specialty Pharmacy [facility] [address] [place] [address] [place] [address] Pharmacist, [facility] [address] [place] [address] [place] [address] Refill - Zejula. 30DS. [facility] Comment on above: Refill - Zejula. 30D S. Start: 04-07-2025 End: 04-07-2025 ambulatory Patricio [facility] Comment on above: (SO)CBC/CMP(S)/CA125 * Q3WK ZIRABEV/LAB EAR LY* Start: 04-06-2025 End: 04-06-2025 ambulatory 04/06/2025 8:30 AM EDT Results Only Patricio Hernándezwn [facility] [address] [place] [address] QWK CBC(?TX) [facility] Comment on above: QWK CBC(?TX) Start: 03-30-2025 End: 03-30-2025 ambulatory 03/30/2025 8:30 AM EDT Results Only Patricio [facility] [address] [place] [address] QWK CBC(?TX) reticulocyte count and iron studies* [facility] Comment on above: QWK CBC(?TX) reticul ocyte count and iron studies* Start: 03-29-2025 End: 06-28-2025 CBC W Auto Differential panel - Blood COMPLETE BLOOD COUNT AND DIFFERENTIAL Lab STAT High grade ovarian cancer (HCC) 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 loss Iron malabsorption (HCC) Expected: 03/29/2025 (Approximate), Expires: 06/28/2025 [facility] Comment on above: Expected: 03/29/2025 (Approximate), Expires: 06/28/2025 Start: 03-28-2025 End: 03-28-2025 ambulatory 03/28/2025 7:30 AM EDT Results Only Patricio Hernándezwn [facility] [address] [place] [address] CBC, reticulocyte count and iron studies* [facility] Comment on above: CBC, reticulocyte co unt and iron studies* Start: 03-21-2025 End: 03-21-2025 ambulatory Hematology/Oncology Comment on above: 2ND FLOOR CBC/RETIC/IRON STUDI ES Start: 03-18-2025 End: 03-18-2025 ambulatory Hematology/Oncology Comment on above: Q3WK ZIRABEV/C4-13/L AB&OV 6/12* OV EVERY OTHER TX Q3WK ZIRABEV/LAB&OV 6/12* OV EVERY OTHER TX Start: 03-17-2025 End: 03-17-2025 ambulatory [facility] Comment on above: CBC/CMP/CA 125* OV/LAB EARLY/CHEMO * MASCI (SO)CBC/CMP(S)/CA125 * 2ND FLOOR Start: 03-15-2025 End: 03-15-2025 ambulatory 03/15/2025 10:00 AM EDT Infusion Center Hematology/Oncology [address] [place] [address] 2ND FLOOR Hematology/Oncology Comment on above: 2ND FLOOR Start: 03-11-2025 End: 03-11-2025 ambulatory 03/11/2025 10:00 AM EDT Infusion Center Hematology/Oncology [address] [place] [address] 2ND FLOOR Hematology/Oncology Comment on above: 2ND FLOOR Start: 03-09-2025 End: 03-09-2025 ambulatory 03/09/2025 1:00 PM EDT Infusion Center Hematology/Oncology [address] [place] [address] 2ND FLOOR Hematology/Oncology Comment on above: 2ND FLOOR Start: 02-25-2025 End: 02-25-2025 ambulatory Hematology/Oncology Comment on above: Q3WK BEVACIZUMAB/AUT H EXP? Q3WK BEVACIZUMAB/LAB &OV 02/24/AUTH EXP?* Q3WK BEVACIZUMAB/LAB &OV 02/24/AUTH EXP?* ov every other tx/alternate md and detail technician CBC/CMP/CA 125* Q3WK BEVACIZUMAB/C3- 13/LAB EARLY* (SO)CBC/CMP(S)/CA125 * Q3WK ZIRABEV/LAB EAR LY* Start: 02-24-2025 End: 02-24-2025 [facility] Comment on above: CBC/CMP/CA 125* OV/EARLY LABS*Deedee davenport (SO)CBC/CMP(S)/CA125 /OV/CHEMO 02/25* JAUN (SO)CBC/CMP(S)/CA125 /OV/CHEMO 02/25* alternate md/detail technician Start: 02-04-2025 End: 02-04-2025 ambulatory Hematology/Oncology Comment on above: Q3WK CARBO/TAXOL/LAB & OV 02/03/AUTH EXP 10/05/25* THUR/FRI CBC/CMP/CA 125* CBC/CMP/CA 125*Q3WK BEVACIZUMAB/AUTH EXP? CBC/CMP/CA 125/Q3WK BEVACIZUMAB/AUTH EXP?* CBC/CMP/CA 125/Q3WK BEVACIZUMAB/AUTH EXP?* ov every other tx/alternate md/detail technician DELAYED PER 01/07 TE Start: 02-03-2025 Covid-19 Vaccine (7 - Moderna risk season) Covid-19 Vaccine (7 - Moderna risk ) [facility] Start: 02-03-2025 End: 02-03-2025 ambulatory [facility] Comment on above: (SO)CBC/CMP(S)/MG(S) /CA125* OV/EARLY LABS/CHEMO /* CBC/CMP/CA 125* OV/LAB EARLY/CHEMO * MASCI Start: 01-14-2025 End: 01-14-2025 ambulatory Hematology/Oncology Comment on above: Q3WK CARBO/TAXOL/LAB & OV 01/12/AUTH EXP 10/05/25* THUR/FRI Q3WK BEVACIZUMAB/AUT H EXP? Q3WK BEVACIZUMAB/LAB &OV 01/13/AUTH EXP?* Q3WK BEVACIZUMAB/LAB &OV 01/13/AUTH EXP?* ov every other tx/alternate md/detail technician Start: 01-13-2025 End: 01-13-2025 ambulatory [facility] Comment on above: CBC/CMP/CA 125* OV/EARLY LABS*MASCI (SO)CBC/CMP(S)/CA125 /OV/CHEMO 01/14* MASCI Start: 01-12-2025 End: 01-12-2025 ambulatory [facility] Comment on above: (SO)CBC/CMP(S)/MG(S) /CA125* OV/EARLY LABS/CHEMO 01/14* Start: 01-10-2025 Sigmoidoscopy flx co ntrol bleeding SIGMOIDOSCOPY FOR BLEEDING [facility] Start: 01-10-2025 Patient discharge [facility] Start: 12-24-2024 End: 12-24-2024 ambulatory Hematology/Oncology Comment on above: Q3WK CARBO/TAXOL/LAB & OV 12/23/AUTH EXP 10/05/25* /Fri (SO)CBC/CMP(S)/CA125 * START Q3WK BEVACIZUM AB/AUTH EXP?* (SO)CBC/CMP(S)/CA125 /START Q3WK BEVACIZUMAB/AUTH EXP?* Start: 12-23-2024 End: 12-23-2024 ambulatory [facility] Comment on above: (SO)CBC/CMP(S)/MG(S) /CA125* OV/EARLY LABS/CHEMO 12/24* Start: 12-22-2024 End: 12-22-2024 ambulatory 12/22/2024 10:30 AM EDT Infusion Center Hematology/Oncology [address] [place], [place] [id number] Wstr, Boot Trimmer [facility] [address] [place], [place] [id number] CHEMO ED - BEVACIZUMAB* Hematology/Oncology Comment on above: CHEMO ED - BEVACIZUM AB* Start: 12-21-2024 Colsc flexible w/con trol bleeding any method COLONOSCOPY W/CONTROL BLEED [facility] Start: 12-21-2024 Patient discharge [facility] Start: 12-16-2024 End: 12-16-2024 Patient encounter procedure Cat Scan Comment on above: 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.9] Start: 12-03-2024 End: 12-03-2024 ambulatory Hematology/Oncology Comment on above: Q3WK CARBO/TAXOL/LAB & OV 12/02/AUTH EXP 10/05/25*/Friday CBC/Q3WK CARBO/TAXOL /LAB & OV 12/02/AUTH EXP 10/05/25*/Friday Start: 12-02-2024 End: 12-02-2024 ambulatory [facility] Comment on above: CBC/CMP/MAG/CA 125* OV/EARLY LABS/CHEMO 12/03* (SO)CBC/CMP(S)/MG(S) /CA125* Start: 11-12-2024 End: 11-12-2024 ambulatory 11/12/2024 8:00 AM EST Infusion Center Hematology/Oncology [address] [place] [address] Q3WK CARBO/TAXOL/LAB & OV 11/11/AUTH EXP 10/05/25*/ y Hematology/Oncology Comment on above: Q3WK CARBO/TAXOL/LAB & OV 11/11/AUTH EXP 10/05/25*/Friday Start: 11-11-2024 End: 11-11-2024 ambulatory Patricio [facility] Comment on above: CBC/CMP/MAG/CA 125* OV/EARLY LABS/CHEMO 11/12* Start: 10-28-2024 End: 10-28-2024 ambulatory 10/28/2024 9:15 AM EST Results Only [facility] [address] [place] [address] CBC/CMP/CA 125. [facility] Draw Station Comment on above: CBC/CMP/CA 125. Start: 10-22-2024 End: 10-22-2024 ambulatory Patricio [facility] Comment on above: (SO)CBC/CMP(S)/MG(S) * Q3WK CARBO/TAXOL/EAR LY LABS/AUTH EXP 10/05/25* /Friday Start: 10-15-2024 End: 10-15-2024 ambulatory 10/15/2024 8:40 AM EST Visit (SP) Office Hematology/Oncology [address] [place] [address] Nile Hall DO [address] [place] [address] 2WK OV* Hematology/Oncology Comment on above: 2WK OV* Start: 10-08-2024 End: 10-08-2024 ambulatory 10/08/2024 7:15 AM EST Results Only [facility] [address] [place] [address] Patricio [facility] Start: 10-07-2024 End: 01-06-2025 CBC W Auto Differential panel - Blood COMPLETE BLOOD COUNT AND DIFFERENTIAL Lab Routine Postop check Expected: 10/07/2024, Expires: 01/06/2025 [facility] Work Phone: Comment on above: Expected: 10/07/2024 , Expires: 01/06/2025 Start: 10-07-2024 End: 10-07-2024 ambulatory 10/07/2024 11:45 AM EST Visit (SP) Office Gynecology Oncology [address] [place] [address] [place] [address] [place] [address] post op Gynecology Oncology Comment on above: post op Start: 10-06-2024 Advance Directive Discussion Advance Directive Discussion [facility] Start: 10-06-2024 Medicare Advantage A nnual Wellness Visit Medicare Advantage Annual Wellness Visit [facility] Start: 10-01-2024 Covid-19 Vaccine ( season) Covid-19 Vaccine () [facility] Start: 09-24-2024 End: 09-24-2024 ambulatory 09/24/2024 8:00 AM EST [facility] Hematology/Oncology [address] [place] [address] Q3WK CARBO/TAXOL/LAB & OV 09/22/AUTH EXP 10/05/24* Hematology/Oncology Comment on above: Q3WK CARBO/TAXOL/LAB & OV 09/22/AUTH EXP 10/05/24* Start: 09-22-2024 End: 09-22-2024 ambulatory [facility] Comment on above: CBC/?LABS* OV/LABS EARLY/CHEMO 09/24* masci (SO)CBC/CMP(S)/MG(S) /CA125* Start: 09-14-2024 End: 09-14-2024 ambulatory 09/14/2024 2:00 PM EST [facility] Gynecology Oncology [address] [place] [address] Rosi Martinez APRN.PHOTOGRAPHER LITHOGRAPHIC [address] [place] [address] post op Gynecology Oncology Comment on above: post op Start: 09-08-2024 End: 09-08-2024 Admission to same day surgery center 09/08/2024 11:15 AM EST - 09/08/2024 3:15 PM EST Surgery Admitting [address] [place] [address] [place] [address] [place] [address] DEBULKING SALPINGO-OOPHORECTOMY, OMENTECTOMY, TOTAL ABDOMINAL HYSTERECTOMY AND RADICAL DISSECTION W/ LIMITED PARA-AORTIC LYMPHADENECTOMY, BILATERAL Admitting Comment on above: DEBULKING SALPINGO-O OPHORECTOMY, OMENTECTOMY, TOTAL ABDOMINAL HYSTERECTOMY AND RADICAL DISSECTION W/ LIMITED PARA-AORTIC LYMPHADENECTOMY, BILATERAL Start: 09-08-2024 End: 09-08-2024 Bso w/omentectomy hany debulking w/lmphadectomy DEBULKING SALPINGO-OOPHORECTOMY, OMENTECTOMY, TOTAL ABDOMINAL HYSTERECTOMY AND RADICAL DISSECTION W/ LIMITED PARA-AORTIC LYMPHADENECTOMY, BILATERAL High grade ovarian cancer (HCC) 09/08/2024 11:15 AM EST [facility] Start: 09-08-2024 Subsequent hospital visit by physician 09/08/2024 11:15 AM EST Hospital Encounter Admitting [address] [place] [address] [place] [address] [place] [address] High grade ovarian cancer (HCC) [C56.9] Admitting Comment on above: 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.9] Start: 09-08-2024 End: 09-08-2024 Admission to same day surgery center 09/08/2024 9:45 AM EST - 09/08/2024 1:45 PM EST Surgery Admitting [address] [place] [address] [place] [address] [place] [address] DEBULKING SALPINGO-OOPHORECTOMY, OMENTECTOMY, TOTAL ABDOMINAL HYSTERECTOMY AND RADICAL DISSECTION W/ LIMITED PARA-AORTIC LYMPHADENECTOMY, BILATERAL Admitting Comment on above: DEBULKING SALPINGO-O OPHORECTOMY, OMENTECTOMY, TOTAL ABDOMINAL HYSTERECTOMY AND RADICAL DISSECTION W/ LIMITED PARA-AORTIC LYMPHADENECTOMY, BILATERAL Start: 09-08-2024 End: 09-08-2024 Bso w/omentectomy hany debulking w/lmphadectomy [facility] Start: 09-08-2024 Subsequent hospital visit by physician 09/08/2024 9:45 AM EST Hospital Encounter Admitting [address] [place] [address] [place] [address] [place] [address] High grade ovarian cancer (HCC) [C56.9] Admitting Comment on above: 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.9] Start: 09-07-2024 End: 09-07-2024 Admission to same day surgery center 09/07/2024 11:00 AM EST Visit (SP) Office Gynecology Oncology [address] [place] [address] [place] [address] [place] [address] [address] review; surgery consent Gynecology Oncology Comment on above: CT review; surgery c onsent Start: 09-07-2024 End: 09-07-2024 Patient encounter procedure Admitting Comment on above: ADMIT LAB Start: 09-07-2024 End: 09-07-2024 Anesthesia consultation 09/07/2024 9:00 AM EST PAT Pre Anesthesia [address] [place] [address] 6, Pacc [address] [place] [address] PACC Pre Anesthesia Comment on above: PACC Start: 09-06-2024 End: 09-06-2024 ambulatory 09/06/2024 9:10 AM EST Visit (SP) Office Hematology/Oncology [address] [place] [address] Nile Hall DO [address] [place] [address] OV/DISCUSS PLAN/CT 08/25* Hematology/Oncology Comment on above: OV/DISCUSS PLAN/CT 1 10/25* Start: 09-03-2024 End: 09-03-2024 ambulatory 09/03/2024 8:00 AM EST Infusion Center Hematology/Oncology [address] [place] [address] Q3WK CARBO/TAXOL/LAB & OV EXP 10/05/24* Hematology/Oncology Comment on above: Q3WK CARBO/TAXOL/LAB & OV EXP 10/05/24* Start: 09-01-2024 End: 12-01-2024 aPTT in Platelet poor plasma by Coagulation assay ACTIVATED PARTIAL THROMBOPLASTIN TIME Lab Routine High grade ovarian cancer (HCC) Preop examination Expected: 09/01/2024 (Approximate), Expires: 12/01/2024 [facility] Comment on above: Expected: 09/01/2024 (Approximate), Expires: 12/01/2024 Start: 09-01-2024 End: 10-01-2024 Cancer Ag 125 [Units/volume] in Serum or Plasma CA 125 Lab Routine High grade ovarian cancer (HCC) Preop examination Expected: 09/01/2024, Expires: 10/01/2024 [facility] Work Phone: Comment on above: Expected: 09/01/2024 , Expires: 10/01/2024 Start: 09-01-2024 End: 12-02-2024 CBC W Auto Differential panel - Blood COMPLETE BLOOD COUNT AND DIFFERENTIAL Lab Routine High grade ovarian cancer (HCC) Preop examination Expected: 09/01/2024 (Approximate), Expires: 12/02/2024 [facility] Comment on above: Expected: 09/01/2024 (Approximate), Expires: 12/02/2024 Start: 09-01-2024 End: 10-01-2024 Comprehensive metabolic 2000 panel - Serum or Plasma COMPREHENSIVE METABOLIC PANEL Lab Routine High grade ovarian cancer (HCC) Preop examination Expected: 09/01/2024 (Approximate), Expires: 10/01/2024 [facility] Comment on above: Expected: 09/01/2024 (Approximate), Expires: 10/01/2024 Start: 09-01-2024 End: 12-01-2024 PT panel - Platelet poor plasma by Coagulation assay PROTHROMBIN TIME Lab Routine High grade ovarian cancer (HCC) Preop examination Expected: 09/01/2024 (Approximate), Expires: 12/01/2024 [facility] Comment on above: Expected: 09/01/2024 (Approximate), Expires: 12/01/2024 Start: 09-01-2024 End: 12-01-2024 TYPE AND SCREEN,30 DAY TYPE AND SCREEN,30 DAY Blood Bank Routine High grade ovarian cancer (HCC) Preop examination Expected: 09/01/2024, Expires: 12/01/2024 [facility] Comment on above: Expected: 09/01/2024 , Expires: 12/01/2024 Start: 09-01-2024 End: 09-01-2024 ambulatory [facility] Comment on above: CBC/?LABS* OV/LABS EARLY/CHEMO 09/03* (SO)CBC/CMP(S)/MG(S) /CA125* Start: 08-25-2024 End: 08-25-2024 Patient encounter procedure Cat Scan Comment on above: 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.9] Start: 08-12-2024 End: 08-12-2024 ambulatory Hematology/Oncology Comment on above: Q3WK CARBO/TAXOL/LAB & OV EXP 10/05/24* CBC* last treatment? Start: 08-11-2024 End: 08-11-2024 ambulatory [facility] Comment on above: CBC/?LABS* OV/LABS EARLY/CHEMO 08/12* (SO)CBC/CMP(S)/MG(S) /CA125* Start: 08-04-2024 End: 08-04-2024 Patient encounter procedure 08/04/2024 10:00 AM EDT Office Visit [facility] [address] [place] [address] Rashawn Power, MS 1 [facility] [id number] [place] [address] Abdominal bloating [R14.0] [facility] Comment on above: Abdominal bloating [ R14.0] Start: 07-23-2024 End: 07-23-2024 ambulatory 07/23/2024 9:30 AM EDT Infusion Center Hematology/Oncology [address] [place] [address] Q3WK CARBO/TAXOL/LAB & OV AUTH EXP 10/05/24* Hematology/Oncology Comment on above: Q3WK CARBO/TAXOL/LAB & OV AUTH EXP 10/05/24* Start: 07-21-2024 End: 07-21-2024 ambulatory [facility] Comment on above: CBC/?LABS* OV/LABS EARLY/CHEMO 07/23* Start: 07-19-2024 End: 07-19-2024 Patient encounter procedure 07/19/2024 8:40 AM EDT Office Visit [facility] [address] [place] [address] Romel Michelle MD [address] [place] [address] Yearly/Medicare Wellness [facility] Comment on above: Yearly/Medicare Well ness Start: 07-16-2024 End: 07-16-2024 ambulatory 07/16/2024 3:20 PM EDT Visit (SP) Office Gynecology Oncology [address] [place] [address] [place] [address] [place] [address] OVARIAN CANCER Gynecology Oncology Comment on above: OVARIAN CANCER Start: 07-16-2024 End: 10-15-2024 Cancer Ag 125 [Units/volume] in Serum or Plasma CA 125 Lab Routine Elevated cancer antigen 125 (CA-125) Expected: 07/16/2024, Expires: 10/15/2024 [facility] Work Phone: Comment on above: Expected: 07/16/2024 , Expires: 10/15/2024 Start: 07-15-2024 Shingrix Vaccine (1 of 2) Chacon grix Vaccine (1 of 2) [facility] Comment on above: Postponed from 01/30 (Declined at this time) Start: 07-15-2024 Shingrix Vaccine (2 of 3) Chacon grix Vaccine (2 of 3) [facility] Comment on above: Postponed from 01/30 (Declined at this time) Start: 07-15-2024 Urine microalbumin profile DTa P,Tdap,Td Vaccine (2 - Td or Tdap) [facility] Comment on above: Postponed from 08/14 (Declined at this time) Start: 07-07-2024 Screening for malign ant neoplasm of breast Mammogram Screening [facility] Start: 07-01-2024 End: 07-01-2024 ambulatory 07/01/2024 8:00 AM [facility] Hematology/Oncology [address] [place] [address] Q3WK CARBO/TAXOL/LAB & OV AUTH EXP 10/05/24* Hematology/Oncology Comment on above: Q3WK CARBO/TAXOL/LAB & OV AUTH EXP 10/05/24* Start: 06-30-2024 End: 09-29-2024 CBC W Auto Differential panel - Blood COMPLETE BLOOD COUNT AND DIFFERENTIAL Lab STAT High grade ovarian cancer (HCC) Expected: 06/30/2024, Expires: 09/29/2024 [facility] Work Phone: Comment on above: Expected: 06/30/2024 , Expires: 09/29/2024 Start: 06-30-2024 End: 09-29-2024 Prealbumin [Mass/volume] in Serum or Plasma PREALBUMIN Lab Routine Inadequate nutrition Expected: 06/30/2024, Expires: 09/29/2024 [facility] Comment on above: Expected: 06/30/2024 , Expires: 09/29/2024 Start: 06-30-2024 End: 06-30-2024 ambulatory [facility]io [facility] Comment on above: CBC/?LABS* OV/LABS EARLY/CHEMO 07/01* OV/LABS EARLY/CHEMO 07/01/CT 06/23* Start: 06-23-2024 End: 06-23-2024 Patient encounter procedure Cat Scan Comment on above: 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.9] Start: 06-18-2024 End: 06-18-2024 Nutrition therapy 06/18/2024 1:30 PM EDT Education Nutrition Therapy [address] [place] [address] Estefany Valerio, RD [address] [place] [address] f/u ostomy/ weight loss Nutrition Therapy Comment on above: f/u ostomy/ weight l oss Start: 06-15-2024 Lipid 1996 panel - S anita or Plasma Lipid Screening [facility] Start: 06-15-2024 Lipid panel Lipid Screening [facility] Start: 06-15-2024 LIPID SCREEN LIPID SCREEN [facility] Start: 06-15-2024 End: 09-14-2024 MISC SEND OUT TST 1 MISC SEND OUT TST 1 Lab Routine High grade ovarian cancer (HCC) Expected: 06/15/2024, Expires: 09/14/2024 [facility] Work Phone: Comment on above: Expected: 06/15/2024 , Expires: 09/14/2024 Start: 06-15-2024 End: 06-15-2024 ambulatory [facility] Comment on above: Abdominal bloating [ R14.0] Start: 06-11-2024 End: 06-11-2024 ambulatory Hematology/Oncology Comment on above: Q3WK CARBO/TAXOL/LAB & OV 06/08/AUTH EXP ?* Q3WK CARBO/TAXOL/LAB & OV 06/08/AUTH EXP 10/05/24* Q3WK CARBO/TAXOL/LAB & OV 06/08/AUTH EXP 10/05/24* ct 2 weeks after this cycle per 05/18 avs LAB* (SO)CBC Q3WK CARBO/T AXOL/LAB & OV 06/08/AUTH EXP 10/05/24* ct 2 weeks after this cycle per 05/18 avs Start: 06-09-2024 End: 06-09-2024 ambulatory 06/09/2024 8:30 AM EDT [facility] Hematology/Oncology [address] [place] [address] Q3WK CARBO/TAXOL/LAB & OV 06/08/AUTH EXP ?* Hematology/Oncology Comment on above: Q3WK CARBO/TAXOL/LAB & OV 06/08/AUTH EXP ?* Start: 06-08-2024 End: 06-08-2024 ambulatory Patricio Albin [facility] Comment on above: CBC/?LABS* OV/LABS EARLY/CHEMO 05/19* OV/LABS EARLY/CHEMO 06/11* Start: 06-06-2024 Covid-19 Vaccine () Covid-19 Vaccine () [facility] Start: 06-06-2024 Covid-19 Vaccine () Covid-19 Vaccine () [facility] Start: 06-06-2024 Influenza vaccination Influenza Vacc ine (#1) [facility] Start: 06-04-2024 Screening for osteoporosis Bone Dens ity Screening [facility] Start: 05-27-2024 End: 05-27-2024 Patient encounter procedure 05/27/2024 10:00 AM EDT Appointment [facility] [address] [place] [address] Avril Graham RN [address] [place] [phone] [place] 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 DC or get more orders. EOC 06/13. [facility] Comment on above: [phone] [place] P elvic mass-new dx of most likely PCU RN type CA, new ileostomy.Pt wants to be independent with management and is willing to learn. DC or get more orders. EOC 06/13. 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 DC or get more orders. EOC 06/13. [facility] Comment on above: [phone] [place]/Most P elvic mass-new dx of most likely PCU RN type CA, new ileostomy.Pt wants to be independent with management and is willing to learn. DC or get more orders. EOC 06/13. 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 Next to last SN vs, NOMNC? [facility] Comment on above: [phone] [place]/Most P elvic mass-new dx of most likely PCU RN type CA, new ileostomy.Pt wants to be independent with management and is willing to learn. Next to last SN vs, NOMNC? Start: 05-19-2024 End: 05-19-2024 ambulatory Hematology/Oncology Comment on above: Q3WK CARBO/TAXOL/LAB & OV 05/18/AUTH EXP ?* Q3WK CARBO/TAXOL/LAB & OV 05/18/AUTH EXP 10/05/24* Start: 05-18-2024 End: 05-18-2024 Nutrition therapy 05/18/2024 12:30 PM EDT Education [facility] [address] [place], [place] [address] Teodoro, Estefany, RD [address] [place] [address] fu est after first appt Nutrition Therapy Comment on above: fu est after first a ppt Start: 05-18-2024 End: 05-18-2024 ambulatory [facility] Comment on above: CBC/?LABS* OV/LABS EARLY/CHEMO 05/19* CBC/CMP/CA 125/UA (SO)CBC/CMP(S)/MG(S) /CA 125/UA Start: 05-17-2024 End: 05-17-2024 Home visit 05/17/2024 10:00 AM EDT Home Care Visit [facility] [address] [place] [address] Avril Graham RN [address] [phone] [place]/Most 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 Next to last SN vs, NOMNC? [facility] Comment on above: [phone] [place]/Most P elvic mass-new dx of most likely PCU RN type CA, new ileostomy.Pt wants to be independent with management and is willing to learn. Next to last SN vs, NOMNC? Start: 05-13-2024 End: 05-13-2024 Home visit [facility] Comment on above: [phone] [place]/Most P elvic mass-new dx of most likely PCU RN type CA, new ileostomy.Pt wants to be independent with management and is willing to learn. Start: 05-10-2024 End: 05-10-2024 ambulatory 05/10/2024 1:30 PM EDT Visit (SP) Office Hematology/Oncology [address] [place], [place] [id number] Nile Hall DO [address] [facility] [address] [place], [place] [address] DIRECTOR OF NURSING/High grade ovarian cancer (HCC) [C56.9]/REF.FREDIS STROUD* Hematology/Oncology Comment on above: DIRECTOR OF NURSING/High grade ovaria n cancer (HCC) [C56.9]/REF.FREDIS STROUD* Start: 05-10-2024 End: 05-10-2024 Home visit 05/10/2024 10:00 AM EDT Home Care Visit [facility] [address] [place] [address] Avril Graham RN [address] [place] [phone] [place]/Most 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 [facility] Comment on above: [phone] [place]/Most P elvic mass-new dx of most likely PCU RN type CA, new ileostomy.Pt wants to be independent with management and is willing to learn. 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 [facility] Comment on above: [phone] [place]/Most P elvic mass-new dx of most likely PCU RN type CA, new ileostomy.Pt wants to be independent with management and is willing to learn. Start: 05-03-2024 End: 05-03-2024 Home visit [facility] Comment on above: [phone] [place]/Most P elvic mass-new dx of most likely PCU RN type CA, new ileostomy.Pt wants to be independent with management and is willing to learn. Start: 04-29-2024 End: 04-29-2024 Home visit [facility] Comment on above: [phone] [place]/Most P elvic mass-new dx of most likely PCU RN type CA, new ileostomy.Pt wants to be independent with management and is willing to learn. Start: 04-28-2024 End: 04-28-2024 ambulatory [facility] Comment on above: CBC/?LABS* CBC/START Q3WK CARBO /TAXOL/AUTH EXP ?* CBC/START Q3WK CARBO /TAXOL/AUTH EXP10/05/24 CREATININE(S)* STATCR/ MAY USE 04/22 LABS /START Q3WK CARBO/TAXOL/AUTH EXP10/05/24 Start: 04-27-2024 End: 04-27-2024 Patient encounter procedure 04/27/2024 3:30 PM EDT Education Nutrition Therapy [address] [place] [address] Estefany Valerio, RD [address] [place] [address] consult Nutrition Therapy Comment on above: consult Start: 04-26-2024 End: 04-26-2024 ambulatory 04/26/2024 10:30 AM EDT Infusion Center Hematology/Oncology [address] [place], [place] [phone] Wstr, Boot Trimmer [facility] [address] [place], [place] [address] CHEMO ED - CARBO/TAXOL* Hematology/Oncology Comment on above: CHEMO ED - CARBO/TAX OL* Start: 04-26-2024 End: 04-26-2024 Home visit [facility] Comment on above: [phone] [place]/Most P elvic mass-new dx of most likely PCU RN type CA, new ileostomy.Pt wants to be independent with management and is willing to learn. Start: 04-22-2024 End: 04-22-2024 Home visit [facility] Comment on above: [phone] [place]/Most P elvic mass-new dx of most likely PCU RN type CA, new ileostomy.Pt wants to be independent with management and is willing to learn. [phone] [place]/Most P elvic mass-new dx of most likely PCU RN type CA, new ileostomy.Pt wants to be independent with management and is willing to learn. Pt is having somewhat of a hard time adjusting to her new dx and the ostomy. She continues to be willing to learn. Please try to see as early in am (9-10) so that her ostomy is less active. She is agreeable to participate; have pt get supplies ready, cut her flange (38mm), possibly assist with pouch removal, etc. Start: 04-22-2024 End: 07-22-2024 Cancer Ag 125 [Units/volume] in Serum or Plasma [facility] Comment on above: Expected: 04/22/2024 , Expires: 07/22/2024 Start: 04-22-2024 End: 07-22-2024 Ferritin [Mass/volume] in Serum or Plasma [facility] Comment on above: Expected: 04/22/2024 , Expires: 07/22/2024 Start: 04-22-2024 End: 07-22-2024 Iron and Iron binding capacity panel - Serum or Plasma [facility] Work Phone: Comment on above: Expected: 04/22/2024 , Expires: 07/22/2024 Start: 04-22-2024 End: 04-22-2024 ambulatory 04/22/2024 9:10 AM EDT Visit (SP) Office Hematology/Oncology [address] [place] [address] Nile Hall DO [address] [facility] [address] [place] [id number] DIRECTOR OF NURSING/High grade ovarian cancer (HCC) [C56.9]/REF.FREDIS STROUD* Hematology/Oncology Comment on above: DIRECTOR OF NURSING/High grade ovaria n cancer (HCC) [C56.9]/REF.FREDIS STROUD* Start: 04-19-2024 End: 04-19-2024 Home visit 04/19/2024 4:00 PM EDT Home Care Visit [facility] [address] [place], [place] [phone] Avril Graham RN [address] [place], [place] [phone] [place]/Most Pelvic mass, new ileostomy. See at end of day today because of AM appt. [facility] Comment on above: [phone] [place]/Most P elvic mass, new ileostomy. See at end of day today because of AM appt. Start: 04-19-2024 End: 04-19-2024 ambulatory 04/19/2024 11:30 AM EDT Visit (SP) Office Gynecology [address] [place] [address] [place] [address] [place] [address] POST OP - STAPLE REMOVAL Gynecology Comment on above: POST OP - STAPLE REM OVAL Start: 04-16-2024 End: 04-16-2024 ambulatory 04/16/2024 11:00 AM EDT [facility] [address] [place] [address] Carey Elias APRN.[facility] [address] [place] [address] TELEVISIT - POST OP Gynecology Comment on above: TELEVISIT - POST OP Start: 04-09-2024 End: 04-09-2024 Admission to same day surgery center 04/09/2024 12:46 PM EDT - 04/09/2024 4:16 PM EDT Surgery Admitting [address] [place] [address] [place] [address] [place] [address] HYSTERECTOMY ABDOMINAL TOTAL WITH SALPINGO-OOPHORECTOMY BILATERAL Admitting Comment on above: HYSTERECTOMY ABDOMIN AL TOTAL WITH SALPINGO-OOPHORECTOMY BILATERAL Start: 04-09-2024 Subsequent hospital visit by physician 04/09/2024 12:46 PM EDT Hospital Encounter Admitting [address] [place] [address] [place] [address] [place] [address] Pelvic mass [R19.00] Admitting Comment on above: Pelvic mass [R19.00] Start: 04-09-2024 End: 04-09-2024 Total abdominal hysterect w/wo rmvl tube ovary HYSTERECTOMY ABDOMINAL TOTAL WITH SALPINGO-OOPHORECTOMY BILATERAL Pelvic mass 04/09/2024 12:46 PM EDT [facility] Start: 04-09-2024 End: 04-09-2024 Admission to same day surgery center 04/09/2024 7:30 AM EDT - 04/09/2024 10:45 AM EDT Surgery Admitting [address] [place] [address] [place] [address] [place] [address] HYSTERECTOMY ABDOMINAL TOTAL WITH SALPINGO-OOPHORECTOMY BILATERAL Admitting Comment on above: HYSTERECTOMY ABDOMIN AL TOTAL WITH SALPINGO-OOPHORECTOMY BILATERAL Start: 04-09-2024 Subsequent hospital visit by physician 04/09/2024 7:30 AM EDT Hospital Encounter Admitting [address] [place] [address] [place] [address] [place] [address] Pelvic mass [R19.00] Admitting Comment on above: Pelvic mass [R19.00] Start: 04-09-2024 End: 04-09-2024 Total abdominal hysterect w/wo rmvl tube ovary HYSTERECTOMY ABDOMINAL TOTAL WITH SALPINGO-OOPHORECTOMY BILATERAL Pelvic mass 04/09/2024 7:30 AM EDT [facility] Start: 04-05-2024 End: 04-05-2024 ambulatory 04/05/2024 2:50 PM EDT Visit (SP) Office Gynecology [address] [place] [address] [place] [address] [place] [address] POST OP - STAPLE REMOVAL Gynecology Comment on above: POST OP - STAPLE REM OVAL Start: 04-02-2024 End: 04-02-2024 Anesthesia consultation 04/02/2024 3:10 PM EDT PAT Pre Anesthesia [address] [place] [address] 2, Pacc Pyrites [address] [id number] Pre Anesthesia Comment on above: [id number] Start: 03-24-2024 End: 03-24-2024 Patient encounter procedure Cat Scan Comment on above: Generalized abdomina l pain [R10.84]; Abdominal bloating [R14.0] Start: 03-19-2024 End: 03-19-2024 ambulatory 03/19/2024 11:30 AM EDT [facility] [address] [place] [address] Caery Elias, CONTESTANT COORDINATOR.[facility] [address] [place] [address] POST OP Gynecology Comment on above: POST OP Start: 03-17-2024 End: 03-17-2024 Admission to same day surgery center 03/17/2024 12:53 PM EDT - 03/17/2024 4:23 PM EDT Surgery Admitting [address] [place] [address] [place] [address] [place] [address] HYSTERECTOMY ABDOMINAL TOTAL WITH SALPINGO-OOPHORECTOMY BILATERAL Admitting Comment on above: HYSTERECTOMY ABDOMIN AL TOTAL WITH SALPINGO-OOPHORECTOMY BILATERAL Start: 03-17-2024 Subsequent hospital visit by physician Admitting Comment on above: Pelvic mass [R19.00] Start: 03-17-2024 End: 03-17-2024 Total abdominal hysterect w/wo rmvl tube ovary HYSTERECTOMY ABDOMINAL TOTAL WITH SALPINGO-OOPHORECTOMY BILATERAL Pelvic mass 03/17/2024 12:53 PM EDT [facility] Start: 03-16-2024 End: 03-16-2024 Anesthesia consultation 03/16/2024 1:50 PM EDT PAT Pre Anesthesia [address] [facility] [place] [address] [id number] Pre Anesthesia Comment on above: [id number]-CXR Start: 03-16-2024 End: 03-16-2024 ambulatory 03/16/2024 9:00 AM EDT [facility] Oncology [address] [place] [address] 4, [place] [address] [place] [address] TEACHING Gynecology Oncology Comment on above: TEACHING Start: 03-16-2024 End: 03-16-2024 Patient encounter procedure 03/16/2024 8:00 AM EDT Appointment Cat Scan [address] [place] [address] CT - CHEST WO -CONTRAST Cat Scan Comment on above: CT - CHEST WO -CONTR AST Start: 03-15-2024 End: 06-14-2024 Cancer Ag 19-9 [Units/volume] in Serum or Plasma [facility] Comment on above: Expected: 03/15/2024 , Expires: 06/14/2024 Start: 03-15-2024 End: 06-14-2024 Carcinoembryonic Ag [Mass/volume] in Serum or Plasma [facility] Work Phone: Comment on above: Expected: 03/15/2024 , Expires: 06/14/2024 Start: 03-15-2024 End: 03-15-2025 CONFIRM BLOOD TYPE [facility] Work Phone: Comment on above: Expected: 03/15/2024 (Approximate), Expires: 03/15/2025 Start: 03-15-2024 End: 03-15-2024 Manual pelvic examination 03/15/2024 2:00 PM EDT Visit (SP) Office Gynecology [address] [place] [address] [place] [address] [place] [address] Pelvic mass [R19.00] Gynecology Comment on above: Pelvic mass [R19.00] Start: 03-08-2024 End: 06-07-2024 25-hydroxyvitamin D3 [Mass/volume] in Serum or Plasma VITAMIN D 25 HYDROXY Lab Routine Vitamin D deficiency Expected: 03/08/2024, Expires: 06/07/2024 [facility] Comment on above: Expected: 03/08/2024 , Expires: 06/07/2024 Start: 03-08-2024 End: 06-07-2024 CBC panel - Blood by Automated count COMPLETE BLOOD COUNT Lab Routine Generalized abdominal pain Expected: 03/08/2024, Expires: 06/07/2024 [facility] Comment on above: Expected: 03/08/2024 , Expires: 06/07/2024 Start: 03-08-2024 End: 06-07-2024 Comprehensive metabolic 2000 panel - Serum or Plasma COMPREHENSIVE METABOLIC PANEL Lab Routine Generalized abdominal pain Expected: 03/08/2024, Expires: 06/07/2024 [facility] Comment on above: Expected: 03/08/2024 , Expires: 06/07/2024 Start: 03-08-2024 End: 06-07-2024 Erythrocyte sedimentation rate SEDIMENTATION RATE, WESTERGREN Lab Routine Generalized abdominal pain Expected: 03/08/2024, Expires: 06/07/2024 [facility] Comment on above: Expected: 03/08/2024 , Expires: 06/07/2024 Start: 10-06-2023 Advance Directive Discussion Advance Directive Discussion [facility] Start: 10-06-2023 Behavioral Health Screening Behavioral Health Screening [facility] Start: 10-06-2023 Depression Assessment Depression Ass essment [facility] Start: 10-06-2023 zzBehavioral Health Screening zzBehavioral Health Screening [facility] Start: 06-28-2023 End: 08-28-2023 25-hydroxyvitamin D3 [Mass/volume] in Serum or Plasma VITAMIN D 25 HYDROXY Lab Routine Age-related osteoporosis without current pathological fracture Encounter for long-term current use of medication Expected: 06/28/2023 (Approximate), Expires: 08/28/2023 [facility] Work Phone: Comment on above: Expected: 06/28/2023 (Approximate), Expires: 08/28/2023 Start: 06-28-2023 Adult depression scr eening assessment DEPRESSION SCREENING [facility] Start: 06-28-2023 End: 08-28-2023 CBC panel - Blood by Automated count CBC Lab Routine Age-related osteoporosis without current pathological fracture Encounter for long-term current use of medication Expected: 06/28/2023 (Approximate), Expires: 08/28/2023 [facility] Work Phone: Comment on above: Expected: 06/28/2023 (Approximate), Expires: 08/28/2023 Start: 06-28-2023 End: 08-28-2023 Comprehensive metabolic 2000 panel - Serum or Plasma COMP METABOLIC PANEL Lab Routine Age-related osteoporosis without current pathological fracture Encounter for long-term current use of medication Expected: 06/28/2023 (Approximate), Expires: 08/28/2023 [facility] Work Phone: Comment on above: Expected: 06/28/2023 (Approximate), Expires: 08/28/2023 Start: 06-28-2023 COVID-19 VACCINE (5 - Booster for Moderna series) COVID-19 VACCINE (5 - Booster for Moderna series) [facility] Comment on above: Postponed from 06/21 (Declined at this time) Start: 06-28-2023 Urine microalbumin profile [facility] Comment on above: Postponed from 08/14 (Declined at this time) Start: 06-27-2023 SHINGRIX VACCINE (2 of 3) CHACON GRIX VACCINE (2 of 3) [facility] Comment on above: Postponed from 01/30 (Insurance Coverage) Start: 06-06-2023 Covid-19 Vaccine ( season) Covid-19 Vaccine ( season) [facility] Start: 06-06-2023 Influenza vaccination Influenza Vacc ine (#1) [facility] Start: 04-04-2023 Influenza vaccination INFLUENZA (#1) [facility] Comment on above: Postponed from 06/06 (Declined at this time) Start: 12-05-2022 Covid-19 Vaccine (6 - Moderna series) Covid-19 Vaccine (6 - Moderna series) [facility] Start: 10-06-2022 ADVANCE DIRECTIVE DISCUSSION ADVANCE DIRECTIVE DISCUSSION [facility] Start: 10-06-2022 DEPRESSION ASSESSMENT DEPRESSION ASS ESSMENT [facility] Start: 09-23-2022 Mammography [facility] Start: 06-26-2022 Adult depression scr eening assessment DEPRESSION SCREENING [facility] Start: 06-26-2022 SHINGRIX VACCINE (2 of 3) CHACON GRIX VACCINE (2 of 3) [facility] Comment on above: Postponed from 01/30 (Declined at this time) Start: 06-15-2022 DIABETES SCREEN DIABETES SCREEN [facility] Start: 06-06-2022 Influenza vaccination INFLUENZA (#1) [facility] Start: 10-06-2021 ADVANCE DIRECTIVE DISCUSSION ADVANCE DIRECTIVE DISCUSSION [facility] Start: 10-06-2021 DEPRESSION ASSESSMENT DEPRESSION ASS ESSMENT [facility] Start: 08-14-2021 Urine microalbumin profile [facility] Start: 06-05-2021 COVID-19 VACCINE (3 - Booster for Moderna series) COVID-19 VACCINE (3 - Booster for Moderna series) [facility] Start: 02-06-2018 Screening for malign ant neoplasm of cervix Cervical Cancer Screening [facility] Start: 01-30-2017 Shingrix Vaccine (1 of 2) Chacon grix Vaccine (1 of 2) [facility] Start: 2012 RSV Vaccine (1 - 1-d ose 60+ series) RSV Vaccine (1 - 1-dose 60+ series) [facility] Start: 2012 RSV Vaccine (1 - Ris k 60-74 years 1-dose series) RSV Vaccine (1 - Risk 60-74 years 1-dose series) [facility] Start: 1997 COLOGUARD (FIT-DNA) COLOGUARD (FIT-D NA) [facility] Start: [address] COLONOGRAPHY [facility] Start: 1997 FECAL OCCULT BLOOD FECAL OCCULT BLOO D [facility] Start: 1997 Screening for malign ant neoplasm of colon [facility] Start: 1997 SIGMOIDOSCOPY SIGMOIDOSCOPY [facility] Start: 1970 Anxiety Screening Anxiety Screening [facility] Start: 1970 Depression Screening Depression Scre ening [facility] CARIS OR TUMOR SEEK HYBRID CARIS OR TUMOR SEEK HYBRID Lab Routine High grade ovarian cancer (HCC) 04/22/2024 2:06 PM EDT [facility] End: 03-22-2026 CBC W Auto Differential panel - Blood COMPLETE BLOOD COUNT AND DIFFERENTIAL Lab STAT High grade ovarian cancer (HCC) Once per week for 12 Occurrences starting 03/22/2025 until 03/22/2026 [facility] Work Phone: Comment on above: Once per week for 12 Occurrences starting 03/22/2025 until 03/22/2026 End: 04-07-2025 CT Abdomen and Pelvis W contrast IV CT ABD/PEL W IVCON Radiology Routine Generalized abdominal pain Abdominal bloating 1 Occurrences starting 03/08/2024 until 04/07/2025 [facility] Work Phone: Comment on above: 1 Occurrences starti ng 03/08/2024 until 04/07/2025 End: 06-18-2025 CT Abdomen and Pelvis W contrast IV CT ABD/PEL W IVCON Radiology Routine High grade ovarian cancer (HCC) 1 Occurrences starting 05/18/2024 until 06/18/2025 [facility] Comment on above: 1 Occurrences starti ng 05/18/2024 until 06/18/2025 End: 06-17-2025 CT Abdomen and Pelvis W contrast IV CT ABD/PEL W IVCON Radiology Routine High grade ovarian cancer (HCC) 1 Occurrences starting 05/18/2024 until 06/17/2025 [facility] Work Phone: Comment on above: 1 Occurrences starti ng 05/18/2024 until 06/17/2025 CT Abdomen and Pelvi s W contrast IV CT ABD/PEL W IVCON Radiology Routine High grade ovarian cancer (HCC) 06/23/2024 11:23 AM EDT [facility] End: 09-10-2025 CT Abdomen and Pelvis W contrast IV CT ABD/PEL W IVCON Radiology Routine High grade ovarian cancer (HCC) 1 Occurrences starting 08/11/2024 until 09/10/2025 [facility] Work Phone: Comment on above: 1 Occurrences starti ng 08/11/2024 until 09/10/2025 CT Abdomen and Pelvi s W contrast IV CT ABD/PEL W IVCON Radiology Routine High grade ovarian cancer (HCC) 08/25/2024 9:21 AM EST [facility] Work Phone: End: 12-30-2025 CT Abdomen and Pelvis W contrast IV CT ABD/PEL W IVCON Radiology Routine High grade ovarian cancer (HCC) 1 Occurrences starting 12/02/2024 until 12/30/2025 [facility] Comment on above: 1 Occurrences starti ng 12/02/2024 until 12/30/2025 CT Abdomen and Pelvi s W contrast IV CT ABD/PEL W IVCON Radiology Routine High grade ovarian cancer (HCC) 12/16/2024 10:27 AM [facility] End: 06-17-2025 CT Chest W contrast IV CT CHEST W IVCON Radiology Routine High grade ovarian cancer (HCC) 1 Occurrences starting 05/18/2024 until 06/17/2025 [facility] Work Phone: Comment on above: 1 Occurrences starti ng 05/18/2024 until 06/17/2025 CT Chest W contrast IV CT CHEST W IVCON Radiology Routine High grade ovarian cancer (HCC) 06/23/2024 11:23 AM [facility] Work Phone: End: 09-10-2025 CT Chest W contrast IV CT CHEST W IVCON Radiology Routine High grade ovarian cancer (HCC) 1 Occurrences starting 08/11/2024 until 09/10/2025 [facility] Comment on above: 1 Occurrences starti ng 08/11/2024 until 09/10/2025 CT Chest W contrast IV CT CHEST W IVCON Radiology Routine High grade ovarian cancer (HCC) 08/25/2024 9:21 AM [facility] End: 01-01-2026 CT Chest W contrast IV CT CHEST W IVCON Radiology Routine High grade ovarian cancer (HCC) 1 Occurrences starting 12/02/2024 until 01/01/2026 [facility] Work Phone: Comment on above: 1 Occurrences starti ng 12/02/2024 until 01/01/2026 CT Chest W contrast IV CT CHEST W IVCON Radiology Routine High grade ovarian cancer (HCC) 12/16/2024 10:27 AM [facility] Work Phone: End: 04-14-2025 CT Chest WO contrast CT CHEST WO IVCON Radiology Routine Pelvic mass 1 Occurrences starting 03/15/2024 until 04/14/2025 [facility] Comment on above: 1 Occurrences starti ng 03/15/2024 until 04/14/2025 CT Chest WO contrast CT CHEST WO IVCON Radiology Routine Pelvic mass 03/16/2024 8:30 AM EDT [facility] End: 09-10-2025 DBT Breast - bilateral screening YEIMY SCREENING W CHIQUI Radiology Routine Encounter for screening mammogram for breast cancer 1 Occurrences starting 08/11/2024 until 09/10/2025 [facility] Work Phone: Comment on above: 1 Occurrences starti ng 08/11/2024 until 09/10/2025 End: 03-15-2025 ECG COMPLETE ECG COMPLETE ECG Routine Pelvic mass 1 Occurrences starting 03/15/2024 until 03/15/2025 [facility] Comment on above: 1 Occurrences starti ng 03/15/2024 until 03/15/2025 Patient referral [facility] Work Phone: REFER FOR ADMIT INTERVIEW REFER FOR ADMIT INTERVIEW Procedures Routine Preop examination Ordered: 03/15/2024 [facility] Comment on above: Ordered: 03/15/2024 REFER FOR ADMIT INTERVIEW REFER FOR ADMIT INTERVIEW Procedures Routine High grade ovarian cancer (HCC) Preop examination Ordered: 09/01/2024 [facility] Comment on above: Ordered: 09/01/2024 End: 09-13-2023 Screening mammography bi 2-view breast inc cad YEIMY SCREENING Radiology Routine Encounter for screening mammogram for breast cancer 1 Occurrences starting 08/14/2022 until 09/13/2023 [facility] Work Phone: Comment on above: 1 Occurrences starti ng 08/14/2022 until 09/13/2023 Total abdominal hyst erect w/wo rmvl tube ovary HYSTERECTOMY ABDOMINAL TOTAL WITH SALPINGO-OOPHORECTOMY BILATERAL Pelvic mass [facility] End: 04-02-2025 XR Abdomen Supine and Upright XR ABDOMEN 2V ROUTINE SUPINE W UPRIGHT/DECUB/CTL Radiology Routine Generalized abdominal pain Abdominal bloating 1 Occurrences starting 03/03/2024 until 04/02/2025 [facility] Work Phone: Comment on above: 1 Occurrences starti ng 03/03/2024 until 04/02/2025 XR Abdomen Supine an d Upright XR ABDOMEN 2V ROUTINE SUPINE W UPRIGHT/DECUB/CTL Radiology Routine Generalized abdominal pain Abdominal bloating 03/04/2024 8:[address] [facility] Immunizations Immunization Date Immunization Notes Care Provider Lizzette church 08-23-2024 influenza, high dose seasonal, preservative-free Treatment Wstr Work Phone: [facility] 08-23-2024 influenza virus vacc ine, unspecified formulation Nile Hall DO Work Phone: [facility] 07-15-2023 influenza (HD-IIV4) vaccine, age 65+ yr, high dose, quadrivalent, PF (FLUZONE HIGH-DOSE) Cathy Coles APRN.PHOTOGRAPHER LITHOGRAPHIC Work Phone: [facility] 07-15-2023 influenza virus vacc ine, unspecified formulation Liz Parra RN Work Phone: [facility] 09-04-2022 influenza virus vacc ine, unspecified formulation Romel Michlele MD Work Phone: [facility] 08-02-2021 influenza (aIIV4) vaccine, age 65+ yr, quadrivalent, PF (FLUAD QUADRIVALENT) Romel Michelle MD Work Phone: [facility] 08-02-2021 influenza, high dose seasonal, preservative-free [facility] Work Phone: 07-12-2020 influenza (aIIV4) vaccine, age 65+ yr, quadrivalent, PF (FLUAD QUADRIVALENT) Romel Michelle MD Work Phone: [facility] 06-22-2019 Seasonal trivalent influenza vaccine, adjuvanted, preservative free Romel Michelle MD Work Phone: [facility] 06-15-2019 pneumococcal polysaccharide vaccine, 23 valent [facility] 08-11-2018 Influenza, injectabl e, [facility] [place] [facility], preservative free, quadrivalent [facility] 01-19-2018 pneumococcal conjuga te vaccine, 13 valent [facility] 12-05-2016 zoster vaccine, live [facility] 07-15-2016 influenza, seasonal, injectable [facility] 08-14-2011 tetanus toxoid, redu almas diphtheria toxoid, and acellular pertussis vaccine, adsorbed [facility] Work Phone: Payers Date Payer Category Payer Self-pay [id number] 2023 Private Health Insurance [facility] MEDICARE [id number] 2021 Medicare ([place] Care) [employer] [id number] 2021 Private Health Insurance [id number] 2018 Medicare [employer] MEDICARE A ETNA MEDICARE PPO [id number] 2018-Present [phone] [address] [place] [address] [facility] [id number] 2018 Medicare [id number] 1950 Unknown [id number] Private Health Insurance [employer] [id number] Unknown [id number] Unknown [id number] Unknown [id number] Unknown [id number] Unknown [id number] Unknown [id number] Unknown [id number] Social History Date Type Detail Facility Start: 07-11-2011 End: 04-22-2025 Tobacco smoking status MAIS Never smoked tobacco [facility] Start: 06-26-2021 End: 04-20-2025 Alcohol intake Current drinker of alcohol (finding) [facility] Start: 06-18-2020 History SDOH Alcohol Frequency 2 [facility] Start: 06-18-2020 History SDOH Alcohol Std Drinks 1 [facility] Start: 12-15-2015 History SDOH Alcohol Comment social [facility] Start: 06-18-2020 History SDOH Social Connections Phone 3 [facility] Start: 06-18-2020 History SDOH Physica l Activity DPW 5 [facility] Start: 06-18-2020 Education 18 [facility] Start: 1950 Sex Assigned At Not on file C [facility] Start: 07-11-2011 Tobacco use and exposure Smokeless tobacco non-user [facility] Start: 06-18-2022 End: 06-28-2022 Exposure to SARS-CoV-2 (event) Not sure [facility] Start: 09-04-2021 Tobacco smoking stat us NHIS Unknown if ever smoked [facility] Work Phone: Start: 1950 Sex Assigned At Female [facility] Work Phone: Start: 06-18-2020 End: 07-15-2023 History of Social function [facility] Start: 06-18-2020 End: 07-15-2023 Social connection and isolation panel [facility] Do you belong to any clubs or organizations such as holiness groups, unions, fraternal or athletic groups, or school groups? Yes [facility] Are you now , , , , never or living with a partner? [facility] How often to you hav e a drink containing alcohol? Monthly or less [facility] How many standard drinks containing alcohol do you have on a typical day? 1 or 2 [facility] How often do you hav e 6 or more drinks on 1 occasion? Never [facility] How hard is it for y ou to pay for the very basics like food, housing, medical care, and heating Not hard at all [facility] Do you feel stress - tense, restless, nervous, or anxious, or unable to sleep at night because your mind is troubled all the time - these days [OSQ] Only a little [facility] (I/We) worried whekendall er (my/our) food would run out before (I/we) got money to buy more. Never true [facility] In the past 12 month s, was there a time when you were not able to pay the mortgage or rent on time? No [facility] Start: 04-26-2024 Gender identity Identifies as female gender (finding) [facility] Start: 04-26-2024 Sexual orientation Heterosexual (cheryl valencia) [facility] Start: 12-21-2024 End: 01-10-2025 Sex Female (finding) [facility] NEGATED: Highlighted row Not [facility] Goals Date Patient Goal Desired Activity /State Functional Status Date Assessment Result Facility 09-13-2024 Are you deaf, or do you have serious difficulty hearing No 09/13/2024 3:46 PM SALMA Rosas Aba, RN No [facility] 09-13-2024 Are you blind, or do you have serious difficulty seeing, even when wearing glasses No 09/13/2024 3:46 PM SALMA Rosas Aba, RN No [facility] 09-13-2024 Do you have serious difficulty walking or climbing stairs No 09/13/2024 3:46 PM SALMA Rosas Aba, RN No [facility] 09-13-2024 Do you have difficul ty dressing or bathing No 09/13/2024 3:46 PM SALMA Rosas Aba, RN No [facility] 09-13-2024 Because of a physica l, mental, or emotional condition, do you have difficulty doing errands alone such as visiting a physician's office or shopping No 09/13/2024 3:46 PM SALMA Rosas Aba, RN No [facility] Mental Status Date Assessment Result Facility 04-26-2025 Cognitive function Voice/Name;Touch/Shaki ng [facility] Work Phone: 01-10-2025 Cognitive function Voice/Name [facility] Work Phone: 12-21-2024 Cognitive function Level Of Cons ciousness Awake;Drowsy [facility] Work Phone: 12-21-2024 Cognitive function Arousable To Voice/Nam e [facility] Work Phone: 09-13-2024 Because of a physica l, mental, or emotional condition, do you have serious difficulty concentrating, remembering, or making decisions No 09/13/2024 3:46 PM SALMA Rosas Aba, RN No [facility] Clinical Notes 07-05-2008 to 04-26-2025 Linda Nuñez APRN.PHOTOGRAPHER LITHOGRAPHIC - 04/20/2025 1:08 PM EDTTelephone Encounter - DoYulia greenberg RN - 04/13/2025 9:07 AM EDTTelephone Encounter - DoYulia greenberg RN - 04/13/2025 9:07 AM EDT Note Date & Type Note Facility 04-26-2025 Consult note [facility] 04-26-2025 Procedure note [facility] 04-26-2025 Procedure note [facility] 04-26-2025 History and physi dorcas note [facility] 04-26-2025 Consult note [facility] 04-20-[address] [facility] 04-20-2025 History of Presen t illness Narrative Chief Complaint Patient presents with: Follow Up HPI: Sal Bautista is a 75 year old female who presents here today for follow up ovarian cancer. Per Dr. Hall's previous note: CT A/P 03/10/2024: RESULT: Liver: No mass. Biliary: No bile duct dilation. No calcified gallstones. Spleen: No mass. No splenomegaly. Pancreas: Mildly prominent pancreatic duct. No lesions identified. Adrenals: No mass. Kidneys: No renal lesions or hydronephrosis. GI tract: No dilation or wall thickening. Lymph nodes: No abdominal or pelvic lymphadenopathy. Mesentery/Peritoneum: Moderate volume ascites. No loculated collections. Infiltrative change in mesenteric fat and areas of peritoneal thickening with possible mild serosal thickening of scattered small bowel loops. Retroperitoneum: No mass. Vasculature: - Abdominal aorta and iliac arteries: Atherosclerotic calcifications without aneurysm. - Celiac and SMA: Patent without stenosis. - Portal venous system (SMV, splenic vein, portal vein and branches): Patent. - Hepatic veins: Patent. Pelvis: Left pelvic 9.0 x 7.5 x 11.1 cm cystic mass with internal septations and areas of minimal peripheral wall thickening. Contiguous 6.5 x 3.7 cm heterogeneous soft tissue mass centered in the right pelvis (5:112). Moderate volume ascites at the upper pelvis there is a peritoneal thickening. Presacral edema. Bones/Soft Tissues: No acute findings. Lower thorax: Unremarkable. Localizer images: No additional findings. IMPRESSION: Large complex cystic mass in the left pelvis with adjacent soft tissue component extending into the right pelvis concerning for ovarian neoplasm. Ascites and changes of carcinomatosis also present in the abdomen and pelvis. CT Chest 03/10/2024: IMPRESSION: Few small sub-6 mm indeterminate lung nodules. Continued attention on follow-up is suggested given history of pelvic mass. No thoracic lymph node enlargement. Focal thickening along the right anterior pleura and a cluster of subcentimeter right cardiophrenic lymph nodes. Continued attention on follow-up is suggested. 04/29/2024-- Exploratory laparotomy Aborted Debulking Peritoneal biopsies Diverting loop ileostomy ~2L serous ascites evacuated. 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 Ovarian mass in pelvis, unable to palpate rectum/sigmoid. Small bowel with extensive dilation and collapsed large bowel, likely small bowel obstruction near ileocecal valve but unable to mobilize bowel sufficiently due to mesenteric carcinomatosis to visualize the obstruction. Carcinomatosis along diaphragm and in the left upper quadrant but evaluation was limited by small bowel. Tumor involving the root of the small bowel mesentery. Pathology: A. Right abdominal wall peritoneum, excision: High-grade serous carcinoma; see comment. B. Left abdominal wall peritoneum, excision: High-grade serous carcinoma; see comment. Current therapy: 1) Carboplatin/paclitaxel. Underwent EUA with exploratory laparoscopy followed by total abdominal hysterectomy, BSO, supracolic omentectomy, rectosigmoid resection with primary end-to-end colorectal anastomosis and ileostomy takedown with [id number] functional end and reanastomosis on 09/08/2024. Pathology: A. Left fallopian tube and ovary, salpingo-oophorectomy: - Ovary with residual high-grade carcinoma with treatment effect; see comment and synoptic report. - Fallopian tube with adhesions to surface of ovary. B. Uterus with cervix and right fallopian tube and ovary, hysterectomy and right salpingo-oophorectomy: - Cervix: Squamous atrophy. - Endometrium: Inactive endometrium. - Myometrium: Involved by high-grade carcinoma, including in the lower uterine segment; see comment. -Leiomyomas with degenerative changes. - Serosa: Focal involvement by high-grade carcinoma. - Right fallopian tube: Serosal involvement by high-grade carcinoma. - Right ovary: Residual high-grade carcinoma with treatment effect; see comment and synoptic report. C. Omentum, resection: -Rare high-grade carcinoma glands in a background of extensive treatment effect. D. Portion of sigmoid colon, resection: -High-grade carcinoma involving pericolonic soft tissue and muscularis propria, margins negative. E. Portion of small bowel, resection: -Focal mesenteric hemorrhage. F. 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 High-grade carcinoma invades the outer myometrium from the serosal surface. Additionally, it is present in a section of the lower uterine segment myometrium, where its exact location is difficult to interpret given tangential sectioning of the piece, but it is not present within the endometrium. This case was reviewed at the departmental gynecologic consensus conference on 09/14/24, and Huber Jackson, Jasvir, Vincent, and [facility] agree. OVARY or FALLOPIAN TUBE or PRIMARY PERITONEUM 8th Edition - Protocol posted: 03/24/2024OVARY OR FALLOPIAN TUBE OR PRIMARY PERITONEUM - All Specimens SPECIMEN Procedure Total hysterectomy and bilateral salpingo-oophorectomy Omentectomy partial colectomy, small bowel ostomy reversal Hysterectomy Type Not specified Specimen Integrity Right Ovary Integrity Capsule intact Specimen Integrity Left Ovary Integrity Capsule intact Uterus Integrity Intact TUMOR Tumor Site Bilateral ovaries Tumor Size Greatest Dimension (Centimeters): 2 cm Histologic Type High-grade serous carcinoma Histologic Grade High-grade Ovarian Surface Involvement Present, right Fallopian Tube Surface Involvement Present, right Other Tissue / Organ Involvement Omentum SIgmoid colon Largest Extrapelvic Peritoneal Focus Microscopic Peritoneal / Ascitic Fluid Involvement Not submitted / unknown Chemotherapy Response Score (CRS) CRS3 (marked response with no or minimal residual cancer) REGIONAL LYMPH NODES Regional Lymph Node Status Not applicable (no regional lymph nodes submitted or found) pTNM CLASSIFICATION (AJCC 8th Edition) Reporting of pT, pN, and (when applicable) pM categories is based on information available to the pathologist at the time the report is issued. As per the AJCC (Chapter 1, 8th Ed.) it is the managing physician's responsibility to establish the final pathologic stage based upon all pertinent information, including but potentially not limited to this pathology report. Modified Classification y pT Category pT3a pN Category pN not assigned (no nodes submitted or found) FIGO STAGE FIGO Stage IIIA2 Was on rivaroxaban for VTE prophylaxis 3 and half weeks following surgery. She completed that. Still has some blood streaking on her stools. Appetite is recovering. 2 episodes of rectal bleeding after receiving Avastin. Avastin discontinued. Bleeding had stopped following second cauterization procedure. Started having bleeding again several weeks ago not every time she moves her bowels. Does not see blood streaking on stools but sees some blood in the toilet. Appetite has been okay. No nausea. No abdominal pain. Pt. started Zejula on 03/22/25. Now on hold d/t rectal bleeding. April [address] Colon. Was having rectal bleeding. No bleeding since April 01. Pt. here today with spouse. Appetite:Good. Wt. stable. Energy level:I think good. Denies fevers. Mouth:denies sores Resp:denies cough or sob Cardiac:denies chest pain/palpitations GI:denies abd pain, n/v, moving bowels regulalry :denies dysuria/hematuria Extrem:denies pain Neuro:+neuropathy to front third of feet Skin:denies rashes Heme:denies bleeding-as above The ROS is otherwise negative. Past medical history, appointments, medications, allergies reviewed. No changes. EXAM: BP 128/78 Pulse 86 Temp 36.6 C (97.8 F) (Temporal) Resp 12 Wt 57.3 kg (126 lb 5.2 oz) SpO2 100% BMI 21.57 kg/m APPEARANCE Well appearing, alert, in no acute distress, well-hydrated, well nourished. HEART RRR with normal S1 and S2, no murmurs LUNG clear to auscultation LYMPH NODES No cervical lymphadenopathy, No supraclavicular lymphadenopathy, and No axillary lymphadenopathy. ABDOMEN bowel sounds normoactive, soft, non-tender EXTREMITIES No edema NEURO Awake, alert and oriented x 3, Normal gait, and No involuntary motions. SKIN Skin color, texture, turgor normal, no suspicious rashes or lesions LABS: Latest Ref Rng 03/30/2025 04/06/2025 04/13/2025 04/20/2025 WBC 3.70 - 11.00 k/uL 3.02 (L) 2.85 (L) 3.02 (L) 3.96 RBC 3.90 - 5.20 m/uL 3.27 (L) 3.23 (L) 3.11 (L) 2.97 (L) Hemoglobin 11.5 - 15.5 g/dL 9.5 (L) 9.4 (L) 9.2 (L) 8.6 (L) Hematocrit 36.0 - 46.0 % 28.9 (L) 28.4 (L) 26.8 (L) 25.5 (L) MCV 80.0 - 100.0 fL 88.4 87.9 86.2 85.9 MCH 26.0 - 34.0 pg 29.1 29.1 29.6 29.0 MCHC 30.5 - 36.0 g/dL 32.9 33.1 34.3 33.7 RDW-CV 11.5 - 15.0 % 19.8 (H) 19.1 (H) 18.5 (H) 18.6 (H) Platelet Count 150 - 400 k/uL 196 114 (L) 23 (L) 42 (L) MPV 9.0 - 12.7 fL 9.4 9.0 10.0 10.0 Neut% % 68.3 67.3 58.7 64.3 Abs Neut (ANC) 1.45 - 7.50 k/uL 2.06 1.92 1.77 2.55 Lymph% % 19.5 23.2 27.8 22.7 Abs Lymph 1.00 - 4.00 k/uL 0.59 (L) 0.66 (L) 0.84 (L) 0.90 (L) [place]% % 9.6 7.0 8.9 10.4 Abs [place] <0.87 k/uL 0.29 0.20 0.27 0.41 Eosin% % 1.3 1.4 2.3 1.3 Abs Eosin <0.46 k/uL 0.04 0.04 0.07 0.05 Baso% % 1.0 0.7 1.3 1.0 Abs Baso <0.11 k/uL 0.03 <0.03 0.04 0.04 Immature Gran % % 0.3 0.4 1.0 0.3 IMMATURE GRANS (ABS) <0.10 k/uL <0.03 <0.03 0.03 <0.03 NRBC /100 WBC 0.0 0.0 0.0 0.0 Absolute nRBC <0.01 k/uL <0.01 <0.01 <0.01 <0.01 DTYPE Auto Auto Auto Auto CMP/CA125: Pending ASSESSMENT/PLAN: 1. 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 Per Dr. 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 -Presented with SBO. Initial ileostomy. -She continues to tolerate carboplatin and paclitaxel very well with no symptoms of sensory neuropathy. -CA125 is remain normal. - Discussed plan. Permanently discontinue bevacizumab. Discussed rationale and recommendation for Zejula. -Reviewed labs. Worsening anemia. Likely iron deficiency. Plan: -Check iron and ferritin. Parenteral iron indicated if low given her degree of anemia and need to increase hemoglobin more quickly than could be accomplished with oral iron. -Rx Zejula. -Monitor CA125. -Imaging as indicated by symptoms and/or rising CA125. - Zejula on hold d/t rectal bleeding. - Reviewed CBC with pt. and spouse. - CMP/CA125. - Monitor CA125. - Imaging based on symptoms and CA125. - Continue to hold zejula until after scope. Advised pt. to send Dr. Hall my chart message after scope completed-so she can be advised on when to restart zejula and when to have labs. Will also need follow up OV scheduled. uYlia given update. - Repeat CBC on FridayApril 25. - Follow up pending scope by Dr. Colon. - Pt. aware to call office with any questions/concerns. The patient indicates understanding of these issues and agrees with the plan. All documentation from previous visit of 03/02/25-Dr. Hall was copied and pasted, documentation has been reviewed and edited as necessary for today's visit. Linda Nuñez APRN.CNP documented in this encounter [facility] 04-13-2025 Telephone encounter Note Spoke to Linda. Patient instructed to hold zejula for now. Patient will have a repeat CBC/OV next week. Patient is also scheduled for a lower scope with Dr. Colon on 04/26 to assess the cause of the rectal bleeding that she was having before. Patient stated she has not had any issues with rectal bleeding in awhile. This nurse will inform Linda of the scope in case medication needs to be held prior to the scope. Yulia Holm RN [facility] 04-13-2025 Miscellaneous Notes Spoke to Linda. Patient instructed to hold zejula for now. Patient will have a repeat CBC/OV next week. Patient is also scheduled for a lower scope with Dr. Colon on 04/26 to assess the cause of the rectal bleeding that she was having before. Patient stated she has not had any issues with rectal bleeding in awhile. This nurse will inform Linda of the scope in case medication needs to be held prior to the scope. Yulia Holm RN Patient was in for CBC this morning. Platelet dropped from 114 last week to 23 today. Patient denies petechiae bleeding or bruising. Looks like she started Zejulia last month. Mer Smith LPN documented in this encounter [facility] 04-13-2025 Telephone encounter Note Patient was in for CBC this morning. Platelet dropped from 114 last week to 23 today. Patient denies petechiae bleeding or bruising. Looks like she started Zejulia last month. Mer Smith LPN [facility] 04-01-2025 Telephone encounter Note ORAL ANTI-CANCER AGENTS FOLLOW-UP PHONE CALL/VISIT Patient identified by name and date of . YES Patient is on cycle 1, week 2, day 11 of Zejula for Ovarian Cancer. SYMPTOM ASSESSMENT Headache: No Visual Changes: No Dizziness: No Do you have any periods of confusion? No Mood changes: No Mouth or throat pain: No Appetite: no changes in appetite, appetite good Taste changes: No Nausea: No Vomiting: No Heartburn: No. Weight gain/loss: No Episodes of palpitations/chest discomfort/pressure/pain No Shortness of breath: No Cough: No Diarrhea: no Constipation: no Bladder/Urinary Changes: None Pain: No=0 (pain 0 on a scale of 0-10). Fever: No Chills: No Cold sensitivity: No Numbness/weakness: No Edema: No Skin changes: No Itching: No Yellowing of skin or eyes: No Musculoskeletal/joint changes/issues No Bleeding issues: No Activity Level: pretty good Do you need to take naps? No Does the patient need interventions or same day appointment:No ADDITIONAL FOLLOW UP: The next outreach call is due on: TBD and was scheduled patient instructed to call with any questions/concerns. The following lab tests are due: CBC/possible tx. 04/06 Verified patient is aware of next appointment in the cancer center: Yes. Verified patient verbalized how to correctly refill the oral agent prescription. No Does the patient have any financial difficulties affording this medication? No Patient verbalizes understanding of when to seek Medical Attention? YES Patient verbalizes understanding of after-hours and weekend phone number? YES Patient verbalized importance of medication compliance in taking the oral agent as prescribed. Patient instructed to call if unable to comply. Yulia Holm RN [facility] 04-01-2025 Miscellaneous Notes ORAL ANTI-CANCER AGENTS FOLLOW-UP PHONE CALL/VISIT Patient identified by name and date of . YES Patient is on cycle 1, week 2, day 11 of Zejula for Ovarian Cancer. SYMPTOM ASSESSMENT Headache: No Visual Changes: No Dizziness: No Do you have any periods of confusion? No Mood changes: No Mouth or throat pain: No Appetite: no changes in appetite, appetite good Taste changes: No Nausea: No Vomiting: No Heartburn: No. Weight gain/loss: No Episodes of palpitations/chest discomfort/pressure/pain No Shortness of breath: No Cough: No Diarrhea: no Constipation: no Bladder/Urinary Changes: None Pain: No=0 (pain 0 on a scale of 0-10). Fever: No Chills: No Cold sensitivity: No Numbness/weakness: No Edema: No Skin changes: No Itching: No Yellowing of skin or eyes: No Musculoskeletal/joint changes/issues No Bleeding issues: No Activity Level: pretty good Do you need to take naps? No Does the patient need interventions or same day appointment:No ADDITIONAL FOLLOW UP: The next outreach call is due on: TBD and was scheduled patient instructed to call with any questions/concerns. The following lab tests are due: CBC/possible tx. 04/06 Verified patient is aware of next appointment in the cancer center: Yes. Verified patient verbalized how to correctly refill the oral agent prescription. No Does the patient have any financial difficulties affording this medication? No Patient verbalizes understanding of when to seek Medical Attention? YES Patient verbalizes understanding of after-hours and weekend phone number? YES Patient verbalized importance of medication compliance in taking the oral agent as prescribed. Patient instructed to call if unable to comply. Yulia Holm RN ORAL ANTI-CANCER AGENTS FOLLOW-UP PHONE CALL/VISIT Called patient to see how she has been doing on Zejula and also give her Dr. Hall's message. There was no answer. A VM was left requesting a call back from patient. Yulia Holm RN Can let her know that her blood counts are doing better. Continue Zejula. Recheck CBC on 04/06 as scheduled. documented in this encounter [facility] 04-01-2025 Telephone encounter Note ORAL ANTI-CANCER AGENTS FOLLOW-UP PHONE CALL/VISIT Called patient to see how she has been doing on Zejula and also give her Dr. Hall's message. There was no answer. A VM was left requesting a call back from patient. Yulia Holm RN [facility] 03-31-2025 Telephone encounter Note Can let her know that her blood counts are doing better. Continue Zejula. Recheck CBC on 04/06 as scheduled. [facility] 03-22-2025 Telephone encounter Note Spoke with patient and scheduled Kellie Ferrera [facility] 03-22-2025 Miscellaneous Notes Spoke with patient and scheduled Kellie Ferrera Dr. Hall aware. Can start now. CBC next week/possible transfusion--03/30/25. CBC weekly --on Friday. CA-125/OV in 1 month, ok with DIRECTOR OF NURSING ---lab early in the day 04/20 and OV with [place] at 04/20 at 130pm. Orders pended. Mandy Sam RN Call to patient, aware of above. She plans to start evening of 03/23/25. Will plan for weekly CBC on Friday and ok with f/u with Linda. All questions answered. Mandy Sam RN documented in this encounter [facility] 03-22-2025 Telephone encounter Note See [employer] message from today, 03/22/25, with response. Mandy Sam RN [facility] Work Phone: 03-22-2025 Miscellaneous Notes See [employer] message from today, 03/22/25, with response. Mandy Sam RN Patient to receive Zejula on 03/22/25. Please advise on start date and follow up. Mandy Sam RN documented in this encounter [facility] 03-22-[address] Hall aware. Can start now. CBC next week/possible transfusion--03/30/25. CBC weekly --on Friday. CA-125/OV in 1 month, ok with DIRECTOR OF NURSING ---lab early in the day 04/20 and OV with Linda at 04/20 at 130pm. Orders pended. Mandy Sam RN Call to patient, aware of above. She plans to start evening of 03/23/25. Will plan for weekly CBC on Friday and ok with f/u with Linda. All questions answered. Mandy Sam RN [facility] 03-18-2025 Telephone encounter Note Patient to receive Zejula on 03/22/25. Please advise on start date and follow up. Mandy Sam RN [facility] 03-14-2025 Telephone encounter Note [facility] received prescription(s) for Zejula from Dr. Hall's office. Benefits investigation was conducted, indicating that a prior authorization is required by patient's insurance plan with [employer]are. Tx team agreed to dose reduce at 200 mg/day, since pt's weight is < 77kg. If therapy is being dose reduced, please sign this order request to send refill via eRx to [facility]. Thanks! Aaliyah Hastings PharmD Clinical Pharmacist, Oncology [facility] P: , F: Pool: P [facility] Pool #: [id number] [facility] 03-14-2025 Miscellaneous Notes [facility] received prescription(s) for Zejula from Dr. Hall's office. Benefits investigation was conducted, indicating that a prior authorization is required by patient's insurance plan with [employer]/Medicare. Tx team agreed to dose reduce at 200 mg/day, since pt's weight is < 77kg. If therapy is being dose reduced, please sign this order request to send refill via eRx to [facility]. Thanks! Aaliyah Hastings PharmD Clinical Pharmacist, Oncology [facility] P: , F: Pool: P [facility] Pool #: [id number] documented in this encounter [facility] 03-14-2025 Telephone encounter Note ORAL ANTI-CANCER AGENTS EDUCATION patient called today for oral medication education of Zejula for Ovarian Cancer Anticipated/Scheduled start date: TBD READINESS TO LEARN Cognitive Ability: Alert and oriented Motivation to Learn: Interested Family Support: Unable to assess - Family not present Instruction Provided to: Patient Patient learns best by: Multiple Methods Factors affecting learning: None Physical limitation affecting learning: None SAENZ ASSESSMENT: 1.) Verified that patient knows that the oral agents are for cancer and are taken by mouth. Yes 2.) Medication review completed during visit. Yes 3.) Patient is able to swallow pills. Yes 4.) Patient is able to read the drug label/information. Yes 5.) Patient is able to open the medication bottles and packages. Yes 6.) Has patient taken other pills for cancer? No 7.) Is patient experiencing any symptoms that would affect their ability to keep down pills, for example nausea or vomiting? No 8.) Verified that patient understands prescription delivery, benefit investigation and refill process. Yes DRUG-SPECIFIC EDUCATION: 1.) Verified patient knows the drug name. Yes- discussed 2.) Verified patient understands the dose and schedule of oral anti cancer agent. Yes 3.) Verified patient knows what to do if a medication dose is missed. Yes 4.) Verified patient understands where to store the drug. Yes 5.) Verified patient understands potential side effects and how to manage them. Yes 6.)Verified patient understands handling precautions of oral anti cancer agent. Yes 7.) Verified patient was given written instructions and understands when and whom to call with questions. Yes 8.) Verified patient understands where and how to return drug. Yes 9.) Verified patient received drug specific adult education handout and neutropenic wallet card Yes EVALUATE: The patient demonstrated an understanding of all the above education using the teach-back method. Yes Instructed to call us with any questions, concerns, and/or unresolved symptoms. Will continue to follow up and provide reinforcement of teaching topics as needed. Yulia Holm RN [facility] 03-14-2025 Miscellaneous Notes ORAL ANTI-CANCER AGENTS EDUCATION patient called today for oral medication education of Zejula for Ovarian Cancer Anticipated/Scheduled start date: TBD READINESS TO LEARN Cognitive Ability: Alert and oriented Motivation to Learn: Interested Family Support: Unable to assess - Family not present Instruction Provided to: Patient Patient learns best by: Multiple Methods Factors affecting learning: None Physical limitation affecting learning: None SAENZ ASSESSMENT: 1.) Verified that patient knows that the oral agents are for cancer and are taken by mouth. Yes 2.) Medication review completed during visit. Yes 3.) Patient is able to swallow pills. Yes 4.) Patient is able to read the drug label/information. Yes 5.) Patient is able to open the medication bottles and packages. Yes 6.) Has patient taken other pills for cancer? No 7.) Is patient experiencing any symptoms that would affect their ability to keep down pills, for example nausea or vomiting? No 8.) Verified that patient understands prescription delivery, benefit investigation and refill process. Yes DRUG-SPECIFIC EDUCATION: 1.) Verified patient knows the drug name. Yes- discussed 2.) Verified patient understands the dose and schedule of oral anti cancer agent. Yes 3.) Verified patient knows what to do if a medication dose is missed. Yes 4.) Verified patient understands where to store the drug. Yes 5.) Verified patient understands potential side effects and how to manage them. Yes 6.)Verified patient understands handling precautions of oral anti cancer agent. Yes 7.) Verified patient was given written instructions and understands when and whom to call with questions. Yes 8.) Verified patient understands where and how to return drug. Yes 9.) Verified patient received drug specific adult education handout and neutropenic wallet card Yes EVALUATE: The patient demonstrated an understanding of all the above education using the teach-back method. Yes Instructed to call us with any questions, concerns, and/or unresolved symptoms. Will continue to follow up and provide reinforcement of teaching topics as needed. Yulia Holm RN documented in this encounter [facility] 03-09-2025 Telephone encounter Note Patient called office to provide update. Has been experiencing blood in stools that started in December 2024. 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 Had another procedure for same in January 2025. Now, states bleeding has returned again and has an appointment with local GI in April again. Noting this about once per day. Not a lot of blood per patient. Also reports iron deficiency anemia that she is receiving IV iron for. She is inquiring if has any further recommendations re above changes. Also, avastin was permanently discontinued in setting of above, and plan to start on PARP inhibitor, but this has been deferred until above resolved/improved. Will reach out to to relay message and get recs. Carey Elias APRN.DELFINO [facility] Work Phone: 03-09-2025 Miscellaneous Notes Patient called office to provide update. Has been experiencing blood in stools that started in December 2024. 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 Had another procedure for same in January 2025. Now, states bleeding has returned again and has an appointment with local GI in April again. Noting this about once per day. Not a lot of blood per patient. Also reports iron deficiency anemia that she is receiving IV iron for. She is inquiring if has any further recommendations re above changes. Also, avastin was permanently discontinued in setting of above, and plan to start on PARP inhibitor, but this has been deferred until above resolved/improved. Will reach out to to relay message and get recs. Carey Elias APRN.PHOTOGRAPHER LITHOGRAPHIC documented in this encounter [facility] 03-07-2025 Telephone encounter Note Spoke romelia pt and she is scheduled as directed. Maame Chaudhari [facility] 03-07-2025 Miscellaneous Notes Spoke romelia pt and she is scheduled as directed. Maame Chaudhari Patient is aware of all information. PSS- please contact patient to schedule iron infusions and labs as directed below. Corrina Jaime LPN Can let her know that lab work today did confirm iron deficiency. We discussed the potential for iron sucrose at today's office visit. Please schedule for 5 doses of iron sucrose. Repeat CBC, reticulocyte count and iron studies at the time of the fifth dose. Nile Hall DO documented in this encounter [facility] 03-03-2025 History of Presen t illness Narrative [facility] received prescription(s) for Zejula from Dr. Hall's office. Benefits investigation was conducted, indicating that a prior authorization is required by patient's insurance plan with [employer]Med[employer]. Encounter will be updated once prior authorization has been submitted by [facility]. documented in this encounter [facility] 03-03-[address] [facility] 03-03-[address] [facility] 03-03-[address] [facility] 03-03-[address] [facility] 03-03-2025 Telephone encounter Note Patient is aware of all information. PSS- please contact patient to schedule iron infusions and labs as directed below. Corrina Jaime LPN [facility] 03-02-2025 Telephone encounter Note Can let her know that lab work today did confirm iron deficiency. We discussed the potential for iron sucrose at today's office visit. Please schedule for 5 doses of iron sucrose. Repeat CBC, reticulocyte count and iron studies at the time of the fifth dose. Nile Hall DO [facility] 03-02-[address] 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 HPI: The patient is a 74-year-old female with a past medical history as outlined below. CT A/P 03/10/2024: RESULT: Liver: No mass. Biliary: No bile duct dilation. No calcified gallstones. Spleen: No mass. No splenomegaly. Pancreas: Mildly prominent pancreatic duct. No lesions identified. Adrenals: No mass. Kidneys: No renal lesions or hydronephrosis. GI tract: No dilation or wall thickening. Lymph nodes: No abdominal or pelvic lymphadenopathy. Mesentery/Peritoneum: Moderate volume ascites. No loculated collections. Infiltrative change in mesenteric fat and areas of peritoneal thickening with possible mild serosal thickening of scattered small bowel loops. Retroperitoneum: No mass. Vasculature: - Abdominal aorta and iliac arteries: Atherosclerotic calcifications without aneurysm. - Celiac and SMA: Patent without stenosis. - Portal venous system (SMV, splenic vein, portal vein and branches): Patent. - Hepatic veins: Patent. Pelvis: Left pelvic 9.0 x 7.5 x 11.1 cm cystic mass with internal septations and areas of minimal peripheral wall thickening. Contiguous 6.5 x 3.7 cm heterogeneous soft tissue mass centered in the right pelvis (5:112). Moderate volume ascites at the upper pelvis there is a peritoneal thickening. Presacral edema. Bones/Soft Tissues: No acute findings. Lower thorax: Unremarkable. Localizer images: No additional findings. IMPRESSION: Large complex cystic mass in the left pelvis with adjacent soft tissue component extending into the right pelvis concerning for ovarian neoplasm. Ascites and changes of carcinomatosis also present in the abdomen and pelvis. CT Chest 03/10/2024: IMPRESSION: Few small sub-6 mm indeterminate lung nodules. Continued attention on follow-up is suggested given history of pelvic mass. No thoracic lymph node enlargement. Focal thickening along the right anterior pleura and a cluster of subcentimeter right cardiophrenic lymph nodes. Continued attention on follow-up is suggested. 04/29/2024-- Exploratory laparotomy Aborted Debulking Peritoneal biopsies Diverting loop ileostomy ~2L serous ascites evacuated. 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 Ovarian mass in pelvis, unable to palpate rectum/sigmoid. Small bowel with extensive dilation and collapsed large bowel, likely small bowel obstruction near ileocecal valve but unable to mobilize bowel sufficiently due to mesenteric carcinomatosis to visualize the obstruction. Carcinomatosis along diaphragm and in the left upper quadrant but evaluation was limited by small bowel. Tumor involving the root of the small bowel mesentery. Pathology: A. Right abdominal wall peritoneum, excision: High-grade serous carcinoma; see comment. B. Left abdominal wall peritoneum, excision: High-grade serous carcinoma; see comment. Current therapy: 1) Carboplatin/paclitaxel. Underwent EUA with exploratory laparoscopy followed by total abdominal hysterectomy, BSO, supracolic omentectomy, rectosigmoid resection with primary end-to-end colorectal anastomosis and ileostomy takedown with [id number] functional end and reanastomosis on 09/08/2024. Pathology: A. Left fallopian tube and ovary, salpingo-oophorectomy: - Ovary with residual high-grade carcinoma with treatment effect; see comment and synoptic report. - Fallopian tube with adhesions to surface of ovary. B. Uterus with cervix and right fallopian tube and ovary, hysterectomy and right salpingo-oophorectomy: - Cervix: Squamous atrophy. - Endometrium: Inactive endometrium. - Myometrium: Involved by high-grade carcinoma, including in the lower uterine segment; see comment. -Leiomyomas with degenerative changes. - Serosa: Focal involvement by high-grade carcinoma. - Right fallopian tube: Serosal involvement by high-grade carcinoma. - Right ovary: Residual high-grade carcinoma with treatment effect; see comment and synoptic report. C. Omentum, resection: -Rare high-grade carcinoma glands in a background of extensive treatment effect. D. Portion of sigmoid colon, resection: -High-grade carcinoma involving pericolonic soft tissue and muscularis propria, margins negative. E. Portion of small bowel, resection: -Focal mesenteric hemorrhage. F. 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 High-grade carcinoma invades the outer myometrium from the serosal surface. Additionally, it is present in a section of the lower uterine segment myometrium, where its exact location is difficult to interpret given tangential sectioning of the piece, but it is not present within the endometrium. This case was reviewed at the departmental gynecologic consensus conference on 09/14/24, and Huber Jackson, Jasvir, Vincent, and [facility] agree. OVARY or FALLOPIAN TUBE or PRIMARY PERITONEUM 8th Edition - Protocol posted: 03/24/2024OVARY OR FALLOPIAN TUBE OR PRIMARY PERITONEUM - All Specimens SPECIMEN Procedure Total hysterectomy and bilateral salpingo-oophorectomy Omentectomy partial colectomy, small bowel ostomy reversal Hysterectomy Type Not specified Specimen Integrity Right Ovary Integrity Capsule intact Specimen Integrity Left Ovary Integrity Capsule intact Uterus Integrity Intact TUMOR Tumor Site Bilateral ovaries Tumor Size Greatest Dimension (Centimeters): 2 cm Histologic Type High-grade serous carcinoma Histologic Grade High-grade Ovarian Surface Involvement Present, right Fallopian Tube Surface Involvement Present, right Other Tissue / Organ Involvement Omentum SIgmoid colon Largest Extrapelvic Peritoneal Focus Microscopic Peritoneal / Ascitic Fluid Involvement Not submitted / unknown Chemotherapy Response Score (CRS) CRS3 (marked response with no or minimal residual cancer) REGIONAL LYMPH NODES Regional Lymph Node Status Not applicable (no regional lymph nodes submitted or found) pTNM CLASSIFICATION (AJCC 8th Edition) Reporting of pT, pN, and (when applicable) pM categories is based on information available to the pathologist at the time the report is issued. As per the AJCC (Chapter 1, 8th Ed.) it is the managing physician's responsibility to establish the final pathologic stage based upon all pertinent information, including but potentially not limited to this pathology report. Modified Classification y pT Category pT3a pN Category pN not assigned (no nodes submitted or found) FIGO STAGE FIGO Stage IIIA2 Was on rivaroxaban for VTE prophylaxis 3 and half weeks following surgery. She completed that. Still has some blood streaking on her stools. Appetite is recovering. Presents for ongoing oncologic management. Interim history: 2 episodes of rectal bleeding after receiving Avastin. Avastin discontinued. Bleeding had stopped following second cauterization procedure. Started having bleeding again several weeks ago not every time she moves her bowels. Does not see blood streaking on stools but sees some blood in the toilet. Appetite has been okay. No nausea. No abdominal pain. 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 left sterotactic COLONOSCOPY FLX DX W/COLLJ SPEC WHEN PFRMD 03/09/2012 Colonoscopy COLONOSCOPY FLX DX W/COLLJ SPEC WHEN PFRMD 11/22/2015 Colonoscopy (MAC) ESOPHAGOGASTRODUODENOSCOPY TRANSORAL DIAGNOSTIC 11/22/2015 EGD (MAC) ILEOSTOMY 04/2024 ALLERGIES No Known Allergies Current Outpatient Medications Medication Sig ondansetron orally disintegrating (ZOFRAN ODT) 8 mg disintegrating tablet Take 1 tablet by mouth every 8 hours as needed for nausea/vomiting. prochlorperazine (COMPAZINE) 10 mg tablet Take 1 tablet by mouth every 6 hours as needed. acetaminophen (TYLENOL EXTRA STRENGTH) 500 mg tablet Take 1,000 mg by mouth every 6 hours as needed for pain. iv contrast (will be provided with radiology test) CT Chest W -Inject, intravenously, once for 1 dose.No IV access, insert saline lock prior to the beginning of sedation, infusion, injection of imaging exam. Discontinue saline lock post exam. If Pt. has a central line or IVAD, may access for administration according to line specific nursing protocol. Once exam is complete flush line and de-access according to line specific nursing protocol in the CT contrast administration guidelines link. iv contrast (will be provided with radiology test) CT ABD/PEL -Inject, intravenously, once for 1 dose.No IV access, insert saline lock prior to the beginning of sedation, infusion, injection of imaging exam. Discontinue saline lock post exam. If Pt. has a central line or IVAD, may access for administration according to line specific nursing protocol. Once exam is complete flush line and de-access according to line specific nursing protocol in the CT contrast administration guidelines link. enteric contrast (will be provided with radiology test) For CT ABD/PEL W IVCON Routine order Administer, As Directed One Time Only, via Oral, Rectal, both Oral and Rectal, Enteric Tube, Stoma or Indwelling Catheter, Enteric Contrast as designated per enteric contrast guidelines dexAMETHasone (DECADRON) 4 mg tablet Take 5 tablets 12 and 6 hours prior to chemotherapy treatment. (Patient not taking: Reported on 03/02/2025) Cholecalciferol, Vitamin D3, 50 mcg (2,000 unit) cap Take 1 capsule by mouth once daily. (Patient not taking: Reported on 02/03/2025) Loperamide HCl (ANTI-DIARRHEAL) 2 mg tab Take 1 tablet by mouth as needed. No current facility-administered medications for this visit. Social History Tobacco Use Smoking status: Never Smokeless tobacco: Never Vaping Use Vaping status: Never Used Substance Use Topics Alcohol use: Yes Comment: social Drug use: No Family History Problem Relation Age of Onset None Mother None Father Pancreatitis Brother Breast Cancer Maternal Aunt Anesthesia Problems No Family History ROS: Constitutional: No fever. No drenching night sweats. Normal appetite. No unexplained weight loss. No significant fatigue. Neuro: No recent STAHL, vertigo, dizziness or imbalance. HEENT: No recent change in voice, vision or hearing. Resp: No cough, wheeze of hemoptysis. No shortness of breath at rest. CVS: No exertional chest pain, PND or orthopnea. No extremity swelling/edema. No symptoms of claudication. No painful or tender varicose veins. GI: See above. : No dysuria or gross hematuria. Endo: No hot flashes. No polyuria or polydipsia. No heat or cold intolerance. Musculoskeletal: No bone, back, joint and muscular pain. Derm: No current rash. No history of jaundice. No diffuse pruritis. Heme: No unusual bleeding and unexplained bruising. Psych: Normal mood. PHYSICAL EXAM: Vitals: Blood pressure 107/73, pulse 68, temperature 36.4 C (97.5 F), temperature source Temporal, weight 57.2 kg (126 lb), SpO2 100%. Well-appearing and in no acute distress. EYES: Sclerae are anicteric bilaterally. RESPIRATORY: Unlabored passive respirations. CARDIOVASCULAR: Rhythm is regular. ABDOMEN: The abdomen is nondistended. Extremities: No swelling or edema. SKIN: No jaundice. LABS: Genetic testing: [employer] panel negative. 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 [employer]: FOLR1 +75% membrane staining (04/09/2024). [facility] NGS: TP53 32% VAF. -Variant of uncertain significance NTRK2. -TMB low. -HRD genomic scar score low. -MSI stable. 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 -Presented with SBO. Initial ileostomy. -She continues to tolerate carboplatin and paclitaxel very well with no symptoms of sensory neuropathy. -CA125 is remain normal. - Discussed plan. Permanently discontinue bevacizumab. Discussed rationale and recommendation for Zejula. -Reviewed labs. Worsening anemia. Likely iron deficiency. Plan: -Check iron and ferritin. Parenteral iron indicated if low given her degree of anemia and need to increase hemoglobin more quickly than could be accomplished with oral iron. -Rx Zejula. -Monitor CA125. -Imaging as indicated by symptoms and/or rising CA125. Portions of this documentation were copied and pasted from my previous office visit note dated 12/02/2024 in order to provide a cohesive continuity of the history. The note has been reviewed and edited and updated as necessary. I spent a total of 30 minutes on the date of the service which included preparing to see the patient, [id number] patient care, completing clinical documentation, obtaining and/or reviewing separately obtained history, counseling and educating the patient/family/caregiver, ordering medications, tests, or procedures, communicating with other HCPs (not separately reported), and communicating results to the patient/family/caregiver. Nile Hall DO documented in this encounter [facility] 03-01-2025 Evaluation note Diagnosis Onset Date Resolution History of reversal of ileostomy acute March 01, 2025 7 :56am Melena acute March 01, 2025 7:56am Blood in stool, nikki acute Apr 1:21pm History of reversal of ileostomy acute April 26, 2025 1:21pm [facility] Work Phone: 1(154) 689-594305-01-2025 [facility] History of Present illness Narrative* Linda Nuñez APRN.PHOTOGRAPHER LITHOGRAPHIC - 02/03/2025 9:43 AM EDT Chief Complaint Patient presents with: Established Patient HPI: Sal Bautista is a 74 year old female who presents here today for evaluation for treatment tomorrow. Per Dr. Hall's previous note: Past medical history as outlined below. CT A/P 03/10/2024: RESULT: Liver: No mass. Biliary: No bile duct dilation. No calcified gallstones. Spleen: No mass. No splenomegaly. Pancreas: Mildly prominent pancreatic duct. No lesions identified. Adrenals: No mass. Kidneys: No renal lesions or hydronephrosis. GI tract: No dilation or wall thickening. Lymph nodes: No abdominal or pelvic lymphadenopathy. Mesentery/Peritoneum: Moderate volume ascites. No loculated collections. Infiltrative change in mesenteric fat and areas of peritoneal thickening with possible mild serosal thickening of scattered small bowel loops. Retroperitoneum: No mass. Vasculature: - Abdominal aorta and iliac arteries: Atherosclerotic calcifications without aneurysm. - Celiac and SMA: Patent without stenosis. - Portal venous system (SMV, splenic vein, portal vein and branches): Patent. - Hepatic veins: Patent. Pelvis: Left pelvic 9.0 x 7.5 x 11.1 cm cystic mass with internal septations and areas of minimal peripheral wall thickening. Contiguous 6.5 x 3.7 cm heterogeneous soft tissue mass centered in the right pelvis (5:112). Moderate volume ascites at the upper pelvis there is a peritoneal thickening. Presacral edema. Bones/Soft Tissues: No acute findings. Lower thorax: Unremarkable. Localizer images: No additional findings. IMPRESSION: Large complex cystic mass in the left pelvis with adjacent soft tissue component extending into the right pelvis concerning for ovarian neoplasm. Ascites and changes of carcinomatosis also present in the abdomen and pelvis. CT Chest 03/10/2024: IMPRESSION: Few small sub-6 mm indeterminate lung nodules. Continued attention on follow-up is suggested given history of pelvic mass. No thoracic lymph node enlargement. Focal thickening along the right anterior pleura and a cluster of subcentimeter right cardiophrenic lymph nodes. Continued attention on follow-up is suggested. 04/29/2024-- Exploratory laparotomy Aborted Debulking Peritoneal biopsies Diverting loop ileostomy ~2L serous ascites evacuated. 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 Ovarian mass in pelvis, unable to palpate rectum/sigmoid. Small bowel with extensive dilation and collapsed large bowel, likely small bowel obstruction near ileocecal valve but unable to mobilize bowel sufficiently due to mesenteric carcinomatosis to visualize the obstruction. Carcinomatosis along diaphragm and in the left upper quadrant but evaluation was limited by small bowel. Tumor involving the root of the small bowel mesentery. Pathology: A. Right abdominal wall peritoneum, excision: High-grade serous carcinoma; see comment. B. Left abdominal wall peritoneum, excision: High-grade serous carcinoma; see comment. Current therapy: 1) Carboplatin/paclitaxel. Underwent EUA with exploratory laparoscopy followed by total abdominal hysterectomy, BSO, supracolic omentectomy, rectosigmoid resection with primary end-to-end colorectal anastomosis and ileostomy takedown with [id number] functional end and reanastomosis on 09/08/2024. Pathology: A. Left fallopian tube and ovary, salpingo-oophorectomy: - Ovary with residual high-grade carcinoma with treatment effect; see comment and synoptic report. - Fallopian tube with adhesions to surface of ovary. B. Uterus with cervix and right fallopian tube and ovary, hysterectomy and right salpingo-oophorectomy: - Cervix: Squamous atrophy. - Endometrium: Inactive endometrium. - Myometrium: Involved by high-grade carcinoma, including in the lower uterine segment; see comment. -Leiomyomas with degenerative changes. - Serosa: Focal involvement by high-grade carcinoma. - Right fallopian tube: Serosal involvement by high-grade carcinoma. - Right ovary: Residual high-grade carcinoma with treatment effect; see comment and synoptic report. C. Omentum, resection: -Rare high-grade carcinoma glands in a background of extensive treatment effect. D. Portion of sigmoid colon, resection: -High-grade carcinoma involving pericolonic soft tissue and muscularis propria, margins negative. E. Portion of small bowel, resection: -Focal mesenteric hemorrhage. F. 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 High-grade carcinoma invades the outer myometrium from the serosal surface. Additionally, it is present jolene section of the lower uterine segment myometrium, where its exact location is difficult to interpret given tangential sectioning of the piece, but it is not present within the endometrium. This casewas reviewed at the departmental gynecologic consensus conference on 09/14/24, and Huber Jackson, Jasvir, Vincent, and [facility] agree. OVARY or FALLOPIAN TUBE or PRIMARY PERITONEUM 8th Edition - Protocol posted: 03/24/2024OVARY OR FALLOPIAN TUBE OR PRIMARY PERITONEUM - All Specimens SPECIMEN Procedure Total hysterectomy and bilateral salpingo-oophorectomy Omentectomy partial colectomy, small bowel ostomy reversal Hysterectomy Type Not specified Specimen Integrity Right Ovary Integrity Capsule intact Specimen Integrity Left Ovary Integrity Capsule intact Uterus Integrity Intact TUMOR Tumor Site Bilateral ovaries Tumor Size Greatest Dimension (Centimeters): 2 cm Histologic Type High-grade serous carcinoma Histologic Grade High-grade Ovarian Surface Involvement Present, right Fallopian Tube Surface Involvement Present, right Other Tissue / Organ Involvement Omentum SIgmoid colon Largest Extrapelvic Peritoneal Focus Microscopic Peritoneal / Ascitic Fluid Involvement Not submitted / unknown Chemotherapy Response Score (CRS) CRS3 (marked response with no or minimal residual cancer) REGIONAL LYMPH NODES Regional Lymph Node Status Not applicable (no regional lymph nodes submitted or found) pTNM CLASSIFICATION (AJCC 8th Edition) Reporting of pT, pN, and (when applicable) pM categories is based on information available to the pathologist at the time the report is issued. As per the AJCC (Chapter 1, 8th Ed.) it is the managingphysician's responsibility to establish the final pathologic stage based upon all pertinent information, including but potentially not limited to this pathology report. Modified Classification y pT Category pT3a pN Category pN not assigned (no nodes submitted or found) FIGO STAGE FIGO Stage IIIA2 Was on rivaroxaban for VTE prophylaxis 3 and half weeks following surgery. She completed that. Still has some blood streaking on her stools. Appetite is recovering. No new concerns today. Pt. here today with spouse. Appetite:Good. Wt. up 4# Energy level:Good Denies fevers. Mouth:denies sores Resp:denies cough or sob Cardiac:denies chest pain/palpitations GI:denies abd pain, n/v, moving bowels regularly :denies dysuria/hematuria Extrem:denies pain Neuro:+neuropathy -improved Skin:denies rashes/lesions Heme:denies bleeding The ROS is otherwise negative. Past medical history, appointments, medications, allergies reviewed. No changes. EXAM: BP 125/76 Pulse 77 Temp 36.5 C (97.7 F) (Temporal) Wt 55.7 kg (122 lb 12.7 oz) SpO2 100% BMI 20.96 kg/m APPEARANCE Well appearing, alert, in no acute distress, well-hydrated, well nourished. HEART RRR with normal S1 and S2, no murmurs LUNG clear to auscultation LYMPH NODES No cervical lymphadenopathy, No supraclavicular lymphadenopathy, and No axillary lymphadenopathy. ABDOMEN bowel sounds normoactive, soft, non-tender EXTREMITIES No edema NEURO Awake, alert and oriented x 3, Normal gait, and No involuntary motions. SKIN Skin color, texture, turgor normal, no suspicious rashes or lesions LABS: Latest Ref Rng 12/03/2024 12/24/2024 02/03/2025 WBC 3.70 - 11.00 k/uL 3.76 2.95 (L) 3.64 (L) RBC 3.90 - 5.20 m/uL 3.05 (L) 2.71 (L) 3.01 (L) Hemoglobin 11.5 - 15.5 g/dL 9.4 (L) 8.4 (L) 8.8 (L) Hematocrit 36.0 - 46.0 % 28.0 (L) 25.0 (L) 27.6 (L) MCV 80.0 - 100.0 fL 91.8 92.3 91.7 MCH 26.0 - 34.0 pg 30.8 31.0 29.2 MCHC 30.5 - 36.0 g/dL 33.6 33.6 31.9 RDW-CV 11.5 - 15.0 % 14.6 15.5 (H) 14.2 Platelet Count 150 - 400 k/uL 100 (L) 121 (L) 209 MPV 9.0 - 12.7 fL 9.8 9.1 9.6 Neut% % 86.8 60.7 69.0 Abs Neut (ANC) 1.45 - 7.50 k/uL 3.26 1.79 2.51 Lymph% % 12.2 25.4 14.6 Abs Lymph 1.00 - 4.00 k/uL 0.46 (L) 0.75 (L) 0.53 (L) Bristol% % 0.5 13.6 14.8 Abs [place] <0.87 k/uL <0.03 0.40 0.54 Eosin% % 0.0 0.0 0.8 Abs Eosin <0.46 k/uL <0.03 <0.03 0.03 Baso% % 0.0 0.3 0.5 Abs Baso <0.11 k/uL <0.03 <0.03 <0.03 Immature Gran % % 0.5 0.0 0.3 IMMATURE GRANS (ABS) <0.10 k/uL <0.03 <0.03 <0.03 NRBC /100 WBC 0.0 0.0 0.0 Absolute nRBC <0.01 k/uL <0.01 <0.01 <0.01 DTYPE Auto Auto Auto Latest Ref Rng 12/02/2024 12/24/2024 02/03/2025 Protein, Total 6.3 - 8.0 g/dL 6.8 6.7 6.8 Albumin 3.9 - 4.9 g/dL 4.3 4.2 4.3 Calcium 8.5 - 10.2 mg/dL 9.5 9.0 9.3 Bilirubin, Total 0.2 - 1.3 mg/dL <0.2 (L) <0.2 (L) 0.2 Alkaline Phosphatase 34 - 123 U/L 69 72 62 AST 13 - 35 U/L 15 14 13 ALT 7 - 38 U/L 11 12 8 Glucose 74 - 99 mg/dL 95 83 99 BUN 7 - 21 mg/dL 18 14 18 Creatinine 0.58 - 0.96 mg/dL 0.85 0.73 0.90 Sodium 136 - 144 mmol/L 137 135 (L) 139 Potassium 3.7 - 5.1 mmol/L 4.2 3.8 4.1 Chloride 98 - 107 mmol/L 102 101 104 CO2 22 - 30 mmol/L 26 23 25 Anion Gap 8 - 15 mmol/L 9 11 10 eGFR >=60 mL/min/1.73m 73 88 68 CA125: Pending ASSESSMENT/PLAN: 1. 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 Presented with SBO. Initial ileostomy. - Overall tolerating treatment well. - No rectal bleeding. - Reviewed CBC/CMP with pt. and spouse. - CA125 pending. - Monitor CA125. - Imaging as indicated by symptoms and/or rising CA125. - Continue current medications. - Cancel avastin tomorrow per Dr. Hall. - Follow up as scheduled. - Pt. aware to call office with any questions/concerns. The patient indicates understanding of these issues and agrees with the plan. Discussed case with Dr. Hall who agrees with treatment plan. All documentation from previous visit of 12/02/24-Dr. Hall was copied and pasted, documentation hasbeen reviewed and edited as necessary for today's visit. Linda Nuñez APRN.CNP documented in [facility]04[facility] History of Present illness Narrative* Carey Dutta MA - 01/18/2025 12:57 PM EDT POPULATION HEALTH NAVIGATION OUTREACH Action/FYI Patient is on [employer] list for below and needs appointment to address: Depression Screening Anxiety Screening RSV Vaccine(1 - Risk 60-74 years 1-dose series) Shingrix Vaccine(1 of 2) Cervical Cancer Screening DTaP,Tdap,Td Vaccine(2 - Td or Tdap) Mammogram Screening Advance Directive Discussion No results found for: HBA1C Patient due for: Medicare Annual Wellness Visit Breast Cancer Screening [employer] Active: Yes Left message for patient to call back. Sent [employer] message. HCC: Yes Reason for Outreach Care Gap/HCC or Scheduling Wellness Visits Care Gaps due: Medicare Annual Wellness Visit Breast Cancer Screening Patient Contacted: Unable or unnecessary to reach patient: Left message [employer] message sent HCC related Navigation Signature: Carey Dutta MA January 18, 2025 12:57 PM documented in this encounterFostoria City Hospital04-07-2025 History and physical note Author Leydi Carmen [facility] Note Date/Time January 10, 2025 12:1 4pm [facility] Medical Records Department [address] [place] [address] History & Physical Exam 01/10/25 1125 MR#: [id number] Acct: [id number] Name: SAL BAUTISTA Rep #:[id number] : 1950 74 From: Leydi Carmen MD PCP: Dr. Romel Michelle MD Status:[facility] Location: [place] [address] History and Physical Date of Admission: 01/10/25 12/21/24 1005 MR#: [id number] Acct: [id number] Name: SAL BAUTISTA Rep #: [id number] : 1950 74 From: Leydi Carmen MD PCP: Dr. Romel Michelle MD Status: [facility] Location: [place] [address] History and Physical Date of Admission: 12/21/24 Date of Service: 12/17/24MR#: [id number] Acct: [id number] Name: SAL BAUTISTA Rep #: [id number] : 1950 Provider: Dr. Leydi Carmen MD Age/Sex: 74/F Location: [facility] Status: Signed Intake Vital Signs 09/04/2114:32 12/18/2507:51 Height 5 ft 5 in 5 ft 5 in Weight: 122 lb BMI 20.2 BP 105/63 Blood Pressure Location Rt brachial Position Sitting Respiration 18 Pulse 71 Pulse Source Monitor Temp 97.2 F L Temp Source Temporal Pulse Oximetry (%) 98 Oxygen Delivery Method room air Intake Visit Reasons: RECTAL BLEED Chief Complaint: rectal bleed Accompanied by: Is patient in pain?: No Allergies No Known Allergies Allergy (Verified 09/04/21 14:31) Medications ?Medication ?Instructions ?Recorded ?Confirmed ?Type loperamide 2 mg capsule 2 mg PO Q1-4H 06/04/19 09/04/21 History dicyclomine 10 mg capsule 10 mg PO TID PRN Abdominal Pain 09/04/21 History cholecalciferol (vitamin D3) 50 50 mcg PO QDAY 12/17/24 12/17/24 History mcg (2,000 unit) capsule dexamethasone 4 mg tablet 20 mg PO 12/17/24 12/17/24 History nutrutional supplement (JAYLIN FARMS PO 12/17/24 History STANDARD 1.4) 0.06G-1.4Kcal/mL oral liquid ondansetron 8 mg disintegrating 8 mg PO Q8 PRN nausea/vomiting 12/17/24 12/17/24 History tablet prochlorperazine maleate 10 mg 10 mg PO BID PRN 12/17/24 12/17/24 Histo ry tablet (Compazine) Have you fallen in the past year?: No [facility] Medical History (Updated 12/17/24 @ 08:50 by Bushra Wiseman LPN) Ovarian cancer Blood in stool, nikki Surgical History (Updated 12/17/24 @ 08:50 by Bushra Wiseman LPN) History of reversal of ileostomy History of resection of small bowel Hx of colonoscopy H/O: hysterectomy Family History Father CAD (coronary artery disease)Mother No problems noted. Social History adopted: No current occupational status: unemployed Smoking Status: Never smoker alcohol intake: current alcohol intake frequency: holidays/special occasions only substance use type: does not use what type of physical activity do you participate in: walking frequency: 5-6 times per week seatbelt use: always do you feel safe at home: Yes additional social history: Spouse: Cliff VELEZ HPI HPI: 74-year-old female presents for colonoscopy due to bleeding per rectum. Patientstates after her surgery in September she did have a bit of diarrhea due to the reversal of the ileostomy and she did notice some bright red blood from her rectum at that time. Patient states she does have bowel movements daily states it has improved over this time but still does occasionally have some blood whichwill tinged that water of the toilet. Patient denies any abdominal pain or any nausea or vomiting. Patient last colonoscopy was in [address] Hughes. Patient is currently being treated by Dr. Hall for ovarian cancer and will be changing her regimen to include medications that may further exacerbate bleedingso he recommended colonoscopy prior to starting. ROS General General: No weight change, appetite, fatigue, colon cancer, breast cancer or weakness Additional Details: ovarian cancer HEENT HEENT: No difficulty swallowing, eye injury, eye surgery, swollen glands or hoarseness Endo Endocrine: No thyroid disease, diabetes mellitus, thyroid cancer, Hair loss, heat intolerance or cold intolerance Skin Skin: No rash or changing moles Musc Musculoskeletal: No back problems, arthritis, rheumatoid arthritis, gout or joint pain Cardio Cardiovascular: No murmur, pacemaker, heart disease, atrial fibrillation, high blood pressure, heart attack, heart stent, palpitations, shortness of breath with exertion or chest pain Psych Psychiatric: No depression, anxiety or hearing voices Resp Respiratory: No shortness of breath, No sleep apnea, No cough, No COPD, No asthma, No emphysema and No wheezing Gastro Gastrointestinal: No abdominal pain, No nausea or vomiting, No diarrhea, No constipation, Yes blood in stool, No acid reflux, No hemorrhoids, No ulcers, No gallbladder problem and No black,tarry stools [place] Hematologic: No blood thinners, No blood disorders, No bleeding, Yes anemia and No blood clots Neuro Neurologic: No numbness, No tingling and No weakness Exam Const General: cooperative, healthy appearing, comfortable and no acute distress [facility] Head: normocephalic and atraumatic Neck Neck: supple Resp Effort & Inspection: normal respiratory effort Cardio Rate: regular rate GI Inspection: non-distended Palpation: soft and nontender Skin General: no rashes or lesions noted Neuro General: CN's II-XI intact bilaterally Extrem General: normal to inspection Psych Mental Status: mental status grossly normal Attitude: cooperative Assessment and Plan Assessment and Plan (1) Blood in stool, nikki: Status: Acute Plan I have discussed the above with the patient. I have offered the patient colonoscopy for evaluation?plan to schedule for 12/21 to not interfere with patient was planned treatment day of 12/24. I have explained the risks/benefits of the procedure and described the procedure. I have discussed the risks with the patient, including but not limited to: infection, bleeding, perforation of the GI tract requiring emergency surgery, inability to complete the procedure, injury to any internal organs, complications of anesthesia, etc. - the patient understands and agrees to proceed. I have answered all the patient's questions to the patient's satisfaction and the patient has no further questions. The patient has been given instructions for the colon cleansing preparation. 1 day of clears, MiraLAX Dulcolax prep Leydi Carmen M.D. Pager: [phone] [facility] [address] [place] [address], [facility], [address] [place] [address] Office: [phone] Coding Level of Care Code Off vis,new,level 3 Diagnoses Blood in stool, nikki K92.1 Clinical Quality Measures Falls Risk Screening/Assistive Devices Have you fallen in the past year?: No 12/17/24 1323 <Electronically signed by Leydi Carmen MD> Date Leydi Carmen MD 12/21/24 1006 <Electronically signed by Leydi Carmen MD> Cosigner Signature (if applicable): CC: Dr. Romel Michelle MD; Dr. Leydi Carmen MD~ Signed ADDENDUM by Dr. Leydi Carmen MD on 12/21/24 at 1037 Addendum I have examined the patient and the H&P has been reviewed. There are no clinicalchanges since date of exam. Patient denies any bleeding with the prep. 12/21/24 1037<Electronically signed by Leydi Carmen MD> Cosigner Signature (if applicable): cc: Dr. Romel Michelle MD; Dr. Leydi Carmen MD ~* Signed 01/10/25 1125 <Electronically signed by Leydi Carmen MD> Cosigner Signature (if applicable): CC: Dr. Romel Michelle MD; Dr. Leydi Carmen MD~ Signed ADDENDUM by Dr. Leydi Carmen MD on 01/10/25 at 1214 Addendum I have examined the patient the following changes are noted: Patient did continue to have some bright red blood per rectum after the initial procedure. Patient scheduled for her next dose of medication next week. 01/10/25 1214<Electronically signed by Leydi Carmen MD> Cosigner Signature (if applicable): cc: Dr. Romel Michelle MD; Dr. Leydi Carmen MD ~* Signed [facility] Work Phone: 1(346) 534-707504-07-2025 Procedure note [facility] Medical Records Department [address] [place] [address] Flex Sigmoidoscopy Report MR#: [id number] Acct: [id number] Name: SAL BAUTISTA Rep #:[id number] : 1950 74 From: Leydi Carmen MD PCP: Dr. Romel Michelle MD Status:[facility] Patient Name: Sal Bautista Procedure Date: 01/10/2025 12:17 PM Date of : 1950 Age: 74 Procedure: Flexible Sigmoidoscopy Indications: Gastrointestinal occult blood loss Providers: Leydi Carmen MD Referring MD: Romel Michelle Medicines: Monitored Anesthesia Care Patient Profile: This is a 74 year old female. Last Colonoscopy: within the past month. Complications: No immediate complications. Procedure: Pre-Anesthesia Assessment: - Prior to the procedure, a History and Physical was performed, and patient medications and allergies were reviewed. The patient's tolerance of previous anesthesia was also reviewed. The risks and benefits of the procedure and the sedation options and risks were discussed with the patient. All questions were answered, and informed consent was obtained. Prior Anticoagulants: The patient has taken no anticoagulant or antiplatelet agents. ASA Grade Assessment: Per anesthesia. After reviewing the risks and benefits, the patient was deemed in satisfactory condition to undergo the procedure. After obtaining informed consent, the endoscope was passed under direct vision. Throughout the procedure, the patient's blood pressure, pulse, and oxygen saturations were monitored continuously. The colonoscope was introduced through the anus and advanced to the descending colon. Scope In: 12:33:06 PM Scope Out: 12:48:59 PM Total Procedure Duration Time 0 hours 15 minutes 53 seconds Findings: Descending colon rectal anastomosis with some friable tissue. Coagulation for hemostasis using argon plasma was successful. Impression: - No specimens collected. Recommendation: - Discharge patient to home. Procedure Code(s): --- Professional --- 66164, PT, Sigmoidoscopy, flexible; with control of bleeding, any method Diagnosis Code(s): --- Professional --- R19.5, Other fecal abnormalities CPT copyright 2021 [employer]. All rights reserved. The codes documented in this report are preliminary and upon exercise equipment specialist review may be revised to meet current compliance requirements. MD Leydi Kaba MD 01/10/2025 1:04:25 PM This report has been signed electronically. Number of Addenda: 0 Note Initiated On: 01/10/2025 12:17 PM 01/10/25 1304 Date _ Leydi Carmen MD Cosigner Signature: Date (if indicated) CC: Dr. Romel Michelle MD; Dr. Leydi Carmen MD ~ Date Dictated: 01/10/251216 Date Transcribed: Senior Strategy Analyst: POLO Signed [facility]04-07-2025 Procedure note [facility] Medical Records Department [address] [place] [address] Operative Report - CC Letter MR#: [id number] Acct: [id number] Name: SAL BAUTISTA Rep #:[id number] : 1950 74 From: Leydi Carmen MD PCP: Dr. Romel Michelle MD Status:[facility] 01/10/2025 Romel Michelle [address] [facility] [place] [address] Re : Flexible Sigmoidoscopy procedure for Sal Bautista Dear Dr. Michelle This procedure was performed on Friday, January 10, 2025. My impressions and recommendations are as follows: Impressions : - No specimens collected. Recommendations : - Discharge patient to home. My findings are described in the full procedure note, which is enclosed. If I can be of further assistance, please feel free to contact me at Doctor phone number(s): , Work: . Sincerely, MD Leydi Kaba MD 01/10/2025 1:04:25 PM This report has been signed electronically. 01/10/25 1304 Date _ Leydi Lópezignadriana Signature: Date (if indicated) CC: Dr. Romel Michelle MD; Dr. Leydi Carmen MD ~ Date Dictated: 01/10/251216 Date Transcribed: Senior Strategy Analyst: TR Signed [facility]04-07-2025 Consult note [facility] Medical Records Department [address] [facility] [place] [address] Anesthesia Postop Eval I 01/10/25 1301 MR#: [id number] Acct: [id number] Name: SAL BAUTISTA Rep #:[id number] : 1950 74 From: Darryl Reeves PCP: Dr. Romel Michelle MD Status:MARGOT WOOD Y Race: C Location: [place] [address] Anesthesia: Postop Eval I Current Vital Signs Temperature: 97.1 F Pulse Rate: 64 Blood Pressure: 129/67 Respiratory Rate: 16 Pulse Ox: 99 Oxygen Delivery Method: Room Air Assessment Airway patent: Yes Spontaneous unlabored respirations: Yes Mental status: Asleep nausea: No Vomiting: No Anesthesia Complication: No Fluid Hydration Crystalloid volume administer (ml): 50 Total IV fluid infused: 50 Progress Note Anesthesia document: Postop Eval 1 completed: Yes 01/10/25 1302 > Date _ Darryl Martinez Signature: Date CC: ~ Signed [facility]04-07-2025 Consult note Author Carlos Bonilla [facility] Note Date/Time January 10, 2025 10:2 5am [facility] Medical Records Department [address] [place] [address] Pre-Anesthesia Evaluation 01/10/25 1024 MR#: [id number] Acct: [id number] Name: SAL BAUTISTA Rep #:[id number] : 1950 74 From: Carlos Bonilla MD PCP: Dr. Romel Michelle MD Status:MARGOT [employer] Y Race: C Location: [place] [address] ASA Classification* ASA Classification ASA Classification: 2 Assessment & Plan Anesthesia* Anesthesia Assessment Anesthesia Assessment: Discussed sedation and/or anesthesia options, risks, benefits, and alternatives with patient/parents/legal guardian/POA. Questions invited. The patient/parents/legal guardian/POA seems to understand and agrees to proceedwith anesthesia plan. Reviewed the physical assessment, medical history, allergy history and patient home medications list prior to surgery/procedure/anesthetic and documented any changes. Performed airway and anesthesia risk assessments. Anesthesia Type Anesthesia Type: MAC Anesthesia Focused Assessment* Temperature: 97.2 F Pulse Rate: 77 Blood Pressure: 115/69 Respiratory Rate: 20 Pulse Ox: 98 Airway Assessment Mouth opens: >3 cm Mallampati Score: II Focused Labs Anesthesia Preop lab: CBC WBC 6.6 K/mm3 (4.4-11.0) 09/07/15 08:00 09/07/15 RBC 4.88 M/mm3 (4.2-5.4) 09/07/15 08:00 09/07/15 Hgb 14.4 g/dl (12.0-15.0) 09/07/15 08:00 09/07/15 Hct 43.1 % (37-47) 09/07/15 08:00 09/07/15 Plt Count 231 K/mm3 (150-450) 09/07/15 08:00 09/07/15 CHEMISTRY Potassium 3.7 mmol/L (3.5-5.1) 09/07/15 08:00 09/07/15 Sodium 139 mmol/L (136-145) 09/07/15 08:00 09/07/15 BUN 18 mg/dL (7-18) 09/07/15 08:00 09/07/15 Creatinine 1.03 mg/dL (0.55-1.20) 09/07/15 08:00 09/07/15 Glucose 80 mg/dL (70-110) 09/07/15 08:00 09/07/15 COAG Pre-Assessment Diagnosis/Proposed Procedure Planned Operative Procedure(s): flex sig Anesthesia History 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 When Was Last Pacemaker Check QUESTION #4 FULL TEXT: You/Your Family Experience fever (hyperthermia) with Anesthesia Last Oral Intake Last Oral intake: Last Oral Intake NPO since 22:00 01/10/25 10:06 Meds taken in AM with sips of No 01/10/25 10:06 water? 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 Female Yes 01/05/25 14:23 HX of Motion Sickness No 01/05/25 14:23 HX of N/V After Surgery No 01/05/25 14:23 Non-Smoker Yes 01/05/25 14:23 Duration of Surgery greater No 01/05/25 14:23 than 60 minutes Number of Risk Factors 2 01/05/25 14:23 PONV Score Moderate Risk 01/05/25 14:23 Height & Weight Height & Weight: Anesthesia: Height & Weight Height 5 ft 5 in 01/10/25 10:06 Weight: 54 kg 01/10/25 10:06 Body Mass Index (BMI) 19.8 01/10/25 10:06 Respiratory Assessment Respiratory Assessment - records section supervisor: Respiratory Tract Infection Hx - records section supervisor Hx Respiratory Tract Infection No 01/05/25 14:23 STOP Sleep Apnea STOP Sleep Apnea - records section supervisor: STOP Sleep Apnea - records section supervisor Hx Hypertension No 01/05/25 14:23 Hx Sleep Apnea No 01/05/25 14:23 CPAP BIPAP Do you snore loudly (louder No 01/05/25 14:23 than talking or can be heard Do you often feel tired/ No 01/05/25 14:23 fatigued/ sleepy during daytime? Has anyone observed you stop No 01/05/25 14:23 breathing during sleep? STOP Results Negative 01/05/25 14:23 QUESTION #5 FULL TEXT : Do you snore loudly (louder than talking or can be heard through closed doors)? 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 Specify any problems Hx of Preganancy in last 3 N/A 01/05/25 14:23 Months Nurse Filling Out Transfusion NBUCHER 01/05/25 14:23 & Questions: Date: 01/05/25 01/05/25 14:23 Time: 14:23 01/05/25 14:23 Patient unable to answer at this time (ie. 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 Hx Now Gestational Age (in weeks): EDC: Hx Hx Para Hx Section SAB No 01/05/25 14:23 PFSH Medical History History of chemotherapy Wears glasses Cancer Anemia History of IBS Non-smoker Ovarian cancer Blood in stool, nikki Home Medications ?Medication ?Instructions ?Recorded ?Last Taken ?Type loperamide 2 mg capsule 2 mg PO Q1-4H 06/04/19 Unkno wn History dicyclomine 10 mg capsule 10 mg PO TID PRN Abdominal P ain 09/04/21 Unknown History dexamethasone 4 mg tablet 20 mg PO DAILY PRN CHEMO Unknown History ondansetron 8 mg disintegrating 8 mg PO Q8 PRN nausea/ vomiting 12/17/24 Unknown History tablet prochlorperazine maleate 10 mg 10 mg PO BID PRN nausea and 12/17/24 Unknown History tablet (Compazine) vomiting Allergy/AdvReac Type Severity Reaction Status Date / Time No Known Allergies Allergy Verified 01/10/25 10:05 Family History Father CAD (coronary artery disease) Mother No problems noted. Surgical History History of reversal of ileostomy History of resection of small bowel Hx of colonoscopy H/O: hysterectomy Social History adopted: No current occupational status: unemployed Smoking Status: Never smoker alcohol intake: current alcohol intake frequency: holidays/special occasions only substance use type: does not use what type of physical activity do you participate in: walking frequency: 5-6 times per week seatbelt use: always do you feel safe at home: Yes additional social history: Spouse: Cliff Review of Systems (Anesthesia) ROS Narrative System reviewed and no additional complaints, except as documented. 01/10/25 1025 <Electronically signed by Carlos Bonilla MD > Date _ Carlos Bonilla MD Cosigner Signature: Date CC: ~ Signed [facility] Work Phone: 1(417) 266-604704-07-2025 History and physical note [facility] Medical Records Department [address] [place] [address] History & Physical Exam 01/10/25 1125 MR#: [id number] Acct: [id number] Name: SAL BAUTISTA Rep #:[id number] : 1950 74 From: Leydi Carmen MD PCP: Dr. Romel Michelle MD Status:[facility] Location: [place] [address] History and Physical Date of Admission: 01/10/25 12/21/24 1005 MR#: [id number] Acct: [id number] Name: SAL BAUTISTA Rep #: [id number] : 1950 74 From: Leydi Carmen MD PCP: Dr. Romel Michelle MD [place] [facility] [place]: [place] [address]- History and Physical Date of Admission: 12/21/24 Date of Service: 12/17/24#: [id number] Acct: [id number] Name: SAL BAUTSITA Rep #: [id number] : 1950 Provider: Dr. Leydi Carmen MD Age/Sex: 74/F Location: [facility] Status: Signed Intake Vital Signs 09/04/2114:32 12/18/2507:51 Height 5 ft 5 in 5 ft 5 in Weight: 122 lb BMI 20.2 BP 105/63 Blood Pressure Location Rt brachial Position Sitting Respiration 18 Pulse 71 Pulse Source Monitor Temp 97.2 F L Temp Source Temporal Pulse Oximetry (%) 98 Oxygen Delivery Method room air Intake Visit Reasons: RECTAL BLEED Chief Complaint: rectal bleed Accompanied by: Is patient in pain?: No Allergies No Known Allergies Allergy (Verified 09/04/21 14:31) Medications ?Medication ?Instructions ?Recorded ?Confirmed ?Type loperamide 2 mg capsule 2 mg PO Q1-4H 06/04/19 09/04/21 History dicyclomine 10 mg capsule 10 mg PO TID PRN Abdominal Pain 09/04/21 History cholecalciferol (vitamin D3) 50 50 mcg PO QDAY 12/17/24 12/17/24 History mcg (2,000 unit) capsule dexamethasone 4 mg tablet 20 mg PO 12/17/24 12/17/24 History nutrutional supplement (JAYLIN FARMS PO 12/17/24 History STANDARD 1.4) 0.06G-1.4Kcal/mL oral liquid ondansetron 8 mg disintegrating 8 mg PO Q8 PRN nausea/vomiting 12/17/24 12/17/24 History tablet prochlorperazine maleate 10 mg 10 mg PO BID PRN 12/17/24 12/17/24 Histo ry tablet (Compazine) Have you fallen in the past year?: No PFSH Medical History (Updated 12/17/24 @ 08:50 by Bushra Wiseman LPN) Ovarian cancer Blood in stool, nikki Surgical History (Updated 12/17/24 @ 08:50 by Bushra Wiseman LPN) History of reversal of ileostomy History of resection of small bowel Hx of colonoscopy H/O: hysterectomy Family History Father CAD (coronary artery disease)Mother No problems noted. Social History adopted: No current occupational status: unemployed Smoking Status: Never smoker alcohol intake: current alcohol intake frequency: holidays/special occasions only substance use type: does not use what type of physical activity do you participate in: walking frequency: 5-6 times per week seatbelt use: always do you feel safe at home: Yes additional social history: Spouse: Cliff HPI HPI HPI: 74-year-old female presents for colonoscopy due to bleeding per rectum. Patientstates after her surgery in September she did have a bit of diarrhea due to the reversal of the ileostomy and she did notice some bright red blood from her rectum at that time. Patient states she does have bowel movementsdaily states it has improved over this time but still does occasionally have some blood whichwill tinged that water of the toilet. Patient denies any abdominal pain or any nausea or vomiting. Patientlast colonoscopy was in [address] Hughes. Patient is currently being treated by Dr. Hall for ovarian cancer and will be changing her regimen to include medications that may further exacerbate bleedingso he recommended colonoscopy prior to starting. ROS General General: No weight change, appetite, fatigue, colon cancer, breast cancer or weakness Additional Details: ovarian cancer HEENT HEENT: No difficulty swallowing, eye injury, eye surgery, swollen glands or hoarseness Endo Endocrine: No thyroid disease, diabetes mellitus, thyroid cancer, Hair loss, heat intolerance or cold intolerance Skin Skin: No rash or changing moles Musc Musculoskeletal: No back problems, arthritis, rheumatoid arthritis, gout or joint pain Cardio Cardiovascular: No murmur, pacemaker, heart disease, atrial fibrillation, high blood pressure, heart attack, heart stent, palpitations, shortness of breath with exertion or chest pain Psych Psychiatric: No depression, anxiety or hearing voices Resp Respiratory: No shortness of breath, No sleep apnea, No cough, No COPD, No asthma, No emphysema andNo wheezing Gastro Gastrointestinal: No abdominal pain, No nausea or vomiting, No diarrhea, No constipation, Yes bloodin stool, No acid reflux, No hemorrhoids, No ulcers, No gallbladder problem and No black,tarry stools [place] Hematologic: No blood thinners, No blood disorders, No bleeding, Yes anemia and No blood clots Neuro Neurologic: No numbness, No tingling and No weakness Exam Const General: cooperative, healthy appearing, comfortable and no acute distress [facility] Head: normocephalic and atraumatic Neck Neck: supple Resp Effort & Inspection: normal respiratory effort Cardio Rate: regular rate GI Inspection: non-distended Palpation: soft and nontender Skin General: no rashes or lesions noted Neuro General: CN's II-XI intact bilaterally Extrem General: normal to inspection Psych Mental Status: mental status grossly normal Attitude: cooperative Assessment and Plan Assessment and Plan (1) Blood in stool, nikki: Status: Acute Plan I have discussed the above with the patient. I have offered the patient colonoscopy for evaluation?plan to schedule for 12/21 to not interfere with patient was planned treatment day of 12/24. I have explained the risks/benefits of the procedure and described the procedure. I have discussed the risks with the patient, including but not limited to: infection, bleeding, perforation of the GItract requiring emergency surgery, inability to complete the procedure, injury to any internal organs, complications of anesthesia, etc. - the patient understands and agrees to proceed. I have answered all the patient's questions to the patient's satisfaction and the patient has no further questions. The patient has been given instructions for the colon cleansing preparation. 1 day of clears, MiraLAX Dulcolax prep Leydi Carmen M.D. Pager: [phone] [facility] [address] [place] [address], [facility], [address] [place] [address] Office: [phone] Coding Level of Care Code Off vis,new,level 3 Diagnoses Blood in stool, nikki K92.1 Clinical Quality Measures Falls Risk Screening/Assistive Devices Have you fallen in the past year?: No 12/17/24 1323 Date Leydi Carmen MD 12/21/24 1006 Cosigner Signature (if applicable): CC: Dr. Romel Michelle MD; Dr. Leydi Carmen MD~ Signed ADDENDUM by Dr. Leydi Carmen MD on 12/21/24 at 1037 Addendum I have examined the patient and the H&P has been reviewed. There are no clinicalchanges since date of exam. Patient denies any bleeding with the prep. 12/21/24 1037 Cosigner Signature (if applicable): cc: Dr. Romel Michelle MD; Dr. Leydi Carmen MD ~* Signed 01/10/25 1125 Cosigner Signature (if applicable): CC: Dr. Romel Michelle MD; Dr. Leydi Carmen MD~ Signed ADDENDUM by Dr. Leydi Carmen MD on 01/10/25 at 1214 Addendum I have examined the patient the following changes are noted: Patient did continue to have some bright red blood per rectum after the initial procedure. Patient scheduled for her next dose of medication next week. 01/10/25 1214 Cosigner Signature (if applicable): cc: Dr. Romel Michelle MD; Dr. Leydi Carmen MD ~* Signed [facility]04-07-2025 [facility] Medical Records Department [address] [place] [id number] History Physical Exam 01/10/25 1125 MR#: [id number] Acct: [id number] Name: SAL BAUTISTA Rep #: [id number] : 1950 74 From: Leydi Carmen MD PCP: Dr. Romel Michelle MD Status:[facility] [place] [facility]11-1 History and Physical Date of Admission: 01/10/25 12/21/24 1005 MR#: [id number] Acct: [id number] Name: SAL BAUTISTA Rep #: [id number] : 1950 74 From: Leydi Carmen MD PCP: Dr. Romel Michelle MD Status: [facility] [place] [facility]15-1 History and Physical Date of Admission: 12/21/24 Date of Service: 12/17/24MR#: [id number] Acct: [id number] Name: SAL BAUTISTA Rep #: [id number] : 1950 Provider: Dr. Leydi Carmen MD Age/Sex: 74/F Location: [facility] Status: Signed Intake Vital Signs 09/04/2114:32 12/18/2507:51 Height 5 ft 5 in 5 ft 5 in Weight: 122 lb BMI 20.2 BP 105/63 Blood Pressure Location Rt brachial Position Sitting Respiration 18 Pulse 71 Pulse Source Monitor Temp 97.2 F L Temp Source Temporal Pulse Oximetry (%) 98 Oxygen Delivery Method room air Intake Visit Reasons: RECTAL BLEED Chief Complaint: rectal bleed Accompanied by: Is patient in pain?: No Allergies No Known Allergies Allergy (Verified 09/04/21 14:31) Medications ???Medication ???Instructions ???Recorded ???Confirmed ???Type loperamide 2 mg capsule 2 mg PO Q1-4H 06/04/19 09/04/21 History dicyclomine 10 mg capsule 10 mg PO TID PRN Abdominal Pain 09/04/21 History cholecalciferol (vitamin D3) 50 50 mcg PO QDAY 12/17/24 12/17/24 History mcg (2,000 unit) capsule dexamethasone 4 mg tablet 20 mg PO 12/17/24 12/17/24 History nutrutional supplement (JAYLIN FARMS PO 12/17/24 History STANDARD 1.4) 0.06G-1.4Kcal/mL oral liquid ondansetron 8 mg disintegrating 8 mg PO Q8 PRN nausea/vomiting 12/17/24 12/17/24 H istory tablet prochlorperazine maleate 10 mg 10 mg PO BID PRN 12/17/24 12/17/24 History tablet (Compazine) Have you fallen in the past year?: No PFSH Medical History (Updated 12/17/24 @ 08:50 by Bushra Wiseman LPN) Ovarian cancer Blood in stool, nikki Surgical History (Updated 12/17/24 @ 08:50 by Bushra Wiseman LPN) History of reversal of ileostomy History of resection of small bowel Hx of colonoscopy H/O: hysterectomy Family History Father CAD (coronary artery disease)Mother No problems noted. Social History adopted: No current occupational status: unemployed Smoking Status: Never smoker alcohol intake: current alcohol intake frequency: holidays/special occasions only substance use type: does not use what type of physical activity do you participate in: walking frequency: 5-6 times per week seatbelt use: always do you feel safe at home: Yes additional social history: Spouse: Cliff VELEZ HPI HPI: 74-year-old female presents for colonoscopy due to bleeding per rectum. Patient states after her surgery in September she did have a bit of diarrhea due to the reversal of the ileostomy and she did notice some bright red blood from her rectum at that time. Patient states she does have bowel movements daily states it has improved over this time but still does occasionally have some blood which will tinged that water of the toilet. Patient denies any abdominal pain or any nausea or vomiting. Patient last colonoscopy was in [address] Hughes. Patient is currently being treated by Dr. Hall for ovarian cancer and will be changing her regimen to include medications that may further exacerbate bleeding so he recommended colonoscopy prior to starting. ROS General General: No weight change, appetite, fatigue, colon cancer, breast cancer or weakness Additional Details: ovarian cancer HEENT HEENT: No difficulty swallowing, eye injury, eye surgery, swollen glands or hoarseness Endo Endocrine: No thyroid disease, diabetes mellitus, thyroid cancer, Hair loss, heat intolerance or cold intolerance Skin Skin: No rash or changing moles Musc Musculoskeletal: No back problems, arthritis, rheumatoid arthritis, gout or joint pain Cardio Cardiovascular: No murmur, pacemaker, heart disease, atrial fibrillation, high blood pressure, heart attack, heart stent, palpitations, shortness of breath with exertion or chest pain Psych Psychiatric: No depression, anxiety or h (more content not included)...[facility]04-07-2025 Consult note [facility] Medical Records Department [address] [place] [address] Pre-Anesthesia Evaluation 01/10/25 1024 MR#: [id number] Acct: [id number] Name: SAL BAUTISTA Rep #:[id number] : 1950 74 From: Carlos Bonilla MD PCP: Dr. Romel Michelle MD Status:RE G SDC Y Race: C Location: [facility]11-1 ASA Classification* ASA Classification ASA Classification: 2 Assessment & Plan Anesthesia* Anesthesia Assessment Anesthesia Assessment: Discussed sedation and/or anesthesia options, risks, benefits, and alternatives with patient/parents/legal guardian/POA. Questions invited. The patient/parents/legal guardian/POA seems to understand and agrees to proceedwith anesthesia plan. Reviewed the physical assessment, medical history, allergy history and patient home medications list prior to surgery/procedure/anesthetic and documented any changes. Performed airway and anesthesia risk assessments. Anesthesia Type Anesthesia Type: MAC Anesthesia Focused Assessment* Temperature: 97.2 F Pulse Rate: 77 Blood Pressure: 115/69 Respiratory Rate: 20 Pulse Ox: 98 Airway Assessment Mouth opens: >3 cm Mallampati Score: II Focused Labs Anesthesia Preop lab: CBC WBC 6.6 K/mm3 (4.4-11.0) 09/07/15 08:00 09/07/15 RBC 4.88 M/mm3 (4.2-5.4) 09/07/15 08:00 09/07/15 Hgb 14.4 g/dl (12.0-15.0) 09/07/15 08:00 09/07/15 Hct 43.1 % (37-47) 09/07/15 08:00 09/07/15 Plt Count 231 K/mm3 (150-450) 09/07/15 08:00 09/07/15 CHEMISTRY Potassium 3.7 mmol/L (3.5-5.1) 09/07/15 08:00 09/07/15 Sodium 139 mmol/L (136-145) 09/07/15 08:00 09/07/15 BUN 18 mg/dL (7-18) 09/07/15 08:00 09/07/15 Creatinine 1.03 mg/dL (0.55-1.20) 09/07/15 08:00 09/07/15 Glucose 80 mg/dL (70-110) 09/07/15 08:00 09/07/15 COAG Pre-Assessment Diagnosis/Proposed Procedure Planned Operative Procedure(s): flex sig Anesthesia History 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 When Was Last Pacemaker Check QUESTION #4 FULL TEXT: You/Your Family Experience fever (hyperthermia) with Anesthesia Last Oral Intake Last Oral intake: Last Oral Intake NPO since 22:00 01/10/25 10:06 Meds taken in AM with sips of No 01/10/25 10:06 water? 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 Female Yes 01/05/25 14:23 HX of Motion Sickness No 01/05/25 14:23 HX of N/V After Surgery No 01/05/25 14:23 Non-Smoker Yes 01/05/25 14:23 Duration of Surgery greater No 01/05/25 14:23 than 60 minutes Number of Risk Factors 2 01/05/25 14:23 PONV Score Moderate Risk 01/05/25 14:23 Height & Weight Height & Weight: Anesthesia: Height & Weight Height 5 ft 5 in 01/10/25 10:06 Weight: 54 kg 01/10/25 10:06 Body Mass Index (BMI) 19.8 01/10/25 10:06 Respiratory Assessment Respiratory Assessment - records section supervisor: Respiratory Tract Infection Hx - records section supervisor Hx Respiratory Tract Infection No 01/05/25 14:23 STOP Sleep Apnea STOP Sleep Apnea - records section supervisor: STOP Sleep Apnea - records section supervisor Hx Hypertension No 01/05/25 14:23 Hx Sleep Apnea No 01/05/25 14:23 CPAP BIPAP Do you snore loudly (louder No 01/05/25 14:23 than talking or can be heard Do you often feel tired/ No 01/05/25 14:23 fatigued/ sleepy during daytime? Has anyone observed you stop No 01/05/25 14:23 breathing during sleep? STOP Results Negative 01/05/25 14:23 QUESTION #5 FULL TEXT : Do you snore loudly (louder than talking or can be heard through closeddoors)? 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 Specify any problems Hx of Preganancy in last 3 N/A 01/05/25 14:23 Months Nurse Filling Out Transfusion NBUCHER 01/05/25 14:23 & Questions: Date: 01/05/25 01/05/25 14:23 Time: 14:23 01/05/25 14:23 Patient unable to answer at this time (ie. 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 Hx Now Gestational Age (in weeks): EDC: Hx Hx Para Hx Section SAB No 01/05/25 14:23 PFSH Medical History History of chemotherapy Wears glasses Cancer Anemia History of IBS Non-smoker Ovarian cancer Blood in stool, nikki Home Medications ?Medication ?Instructions ?Recorded ?Last Taken ?Type loperamide 2 mg capsule 2 mg PO Q1-4H 06/04/19 Unkno wn History dicyclomine 10 mg capsule 10 mg PO TID PRN Abdominal P ain 09/04/21 Unknown History dexamethasone 4 mg tablet 20 mg PO DAILY PRN CHEMO Unknown History ondansetron 8 mg disintegrating 8 mg PO Q8 PRN nausea/ vomiting 12/17/24 Unknown History tablet prochlorperazine maleate 10 mg 10 mg PO BID PRN nausea and 12/17/24 Unknown History tablet (Compazine) vomiting Allergy/AdvReac Type Severity Reaction Status Date / Time No Known Allergies Allergy Verified 01/10/25 10:05 Family History Father CAD (coronary artery disease) Mother No problems noted. Surgical History History of reversal of ileostomy History of resection of small bowel Hx of colonoscopy H/O: hysterectomy Social History adopted: No current occupational status: unemployed Smoking Status: Never smoker alcohol intake: current alcohol intake frequency: holidays/special occasions only substance use type: does not use what type of physical activity do you participate in: walking frequency: 5-6 times per week seatbelt use: always do you feel safe at home: Yes additional social history: Spouse: Cliff Review of Systems (Anesthesia) ROS Narrative System reviewed and no additional complaints, except as documented. 01/10/25 1025 > Date _ Carlos Bonilla MD Cosigner Signature: Date CC: ~ Signed [facility]03-24-2025 Telephone encounter Note* Telephone Encounter - Yulia Holm RN - 12/27/2024 10:39 AM EDT CYCLE 1/DAY 1 POST TREATMENT CALL Today's date: December 27, 2024 Treatment Regimen: Avastin C1D1 Date: 12/24/24 Called patient to follow-up on symptom management. Spoke with patient SYMPTOM ASSESSMENT Neuro: None Denies dizziness or headaches CV/Resp: None GI/: None Denies N/V/D Patient has IBS. Patient takes Miralax daily which helps. Integument: None Activity: Patient reported no changes in energy level, energy level good. Pain: No=0 (pain 0 on a scale of 0-10). Fever: No Chills: No Patient had a colonoscopy last week. Dr. Carmen cauterized a couple of areas during the scope. Patient stated she has noticed a small amount of rectal bleeding, same as it was before. Patient denies pain. Patient advised to follow- up with Dr. Carmen. Patient stated understanding. Any new referrals needed? No Reinforced CURRENT treatment education based on current and anticipated symptoms. Discussed port/line care and patient verbalizes understanding: Not Applicable Patient instructed to contact office or after hours Hematology/Oncology fellow for: temperature >= 100.4; questions or concerns. Patient verbalized understanding of when to seek medical attention and after hours number protocol. Yulia Holm RN [facility]03-24-2025 Miscellaneous Notes* Telephone Encounter - Yulia Holm RN - 12/27/2024 10:39 AM EDT CYCLE 1/DAY 1 POST TREATMENT CALL Today's date: December 27, 2024 Treatment Regimen: Avastin C1D1 Date: 12/24/24 Called patient to follow-up on symptom management. Spoke with patient SYMPTOM ASSESSMENT Neuro: None Denies dizziness or headaches CV/Resp: None GI/: None Denies N/V/D Patient has IBS. Patient takes Miralax daily which helps. Integument: None Activity: Patient reported no changes in energy level, energy level good. Pain: No=0 (pain 0 on a scale of 0-10). Fever: No Chills: No Patient had a colonoscopy last week. Dr. Carmen cauterized a couple of areas during the scope. Patient stated she has noticed a small amount of rectal bleeding, same as it was before. Patient denies pain. Patient advised to follow- up with Dr. Carmen. Patient stated understanding. Any new referrals needed? No Reinforced CURRENT treatment education based on current and anticipated symptoms. Discussed port/line care and patient verbalizes understanding: Not Applicable Patient instructed to contact office or after hours Hematology/Oncology fellow for: temperature >= 100.4; questions or concerns. Patient verbalized understanding of when to seek medical attention and after hours number protocol. Yulia Holm RN documented [facility] History of Present illness Narrative* Yulia Holm RN - 12/22/2024 10:50 AM EDT This visit was completed over the phone. ONCOLOGY PATIENT EDUCATION NOTE TOPIC: Chemotherapy, Medications: Avastin patient called today for education for treatment of Ovarian Cancer Anticipated/Scheduled start date: 12/24/24 READINESS TO LEARN: COGNITIVE ABILITY: Alert and oriented MOTIVATION TO LEARN: Interested FAMILY SUPPORT: Unable to assess - Family not present INSTRUCTION PROVIDED TO: Patient INSTRUCTION PROVIDED BY: Nurse Coordinator PATIENT LEARNS BEST BY: Multiple Methods FACTORS AFFECTING LEARNING: None PHYSICAL LIMITATIONS AFFECTING LEARNING: None LEARNING RESPONSE METHOD OF INSTRUCTION: Individual instruction Written instruction/Handouts Verbal instruction PATIENT/FAMILY RESPONSE: Verbalizes understanding of: CHEMOTHERAPY-Regimen, toxicity and side effects FOLLOW UP PLAN: Patient instructed to call with any further issues Recommend - Recommend continued instruction and follow up as directed Follow up phone call. Contact information given. SUPPLEMENTAL MATERIAL: Written material was provided at this visit with the following information: - Chemotherapy education was provided by a pharmacist NO - Side effect management information was provided/discussed including but not limited to: abdominaldiscomfort, appetite changes, fatigue, headache, venous thrombotic events, impaired wound healing YES - Provided important phone numbers and contacts during and after hours. YES - Provided information on symptoms that require immediate assistance. YES - Provided Chemotherapy when to call handouts YES - Preventing infection. YES - Treatment schedule and confirmation of appointment times. YES - Available support groups. YES -Reviewed after hour number Time Spent: 20 minutes REFERRAL (RECOMMENDATION): N/A Yulia Holm RN documented in this encounterFostoria [facility]03-18-2025 Consult note Author Federico Joshua [facility] Note Date/Time December 21, 2024 10: 10am [facility] Medical Records Department [address] [place] [address] Pre-Anesthesia Evaluation 12/21/24 1005 MR#: [id number] Acct: [id number] Name: SAL BAUTISTA Rep #:[id number] : 1950 74 From: Federico Joshua MD PCP: Dr. Romel Michelle MD Status:RE G SDC Y Race: C Location: [place] [address] ASA Classification* ASA Classification ASA Classification: 2 (Hx ovarian cancer, having rectal bleeding. No known cardiac hx, nonsmoker ) Assessment & Plan Anesthesia* Anesthesia Assessment Anesthesia Assessment: Discussed sedation and/or anesthesia options, risks, benefits, and alternatives with patient/parents/legal guardian/POA. Questions invited. The patient/parents/legal guardian/POA seems to understand and agrees to proceedwith anesthesia plan. Reviewed the physical assessment, medical history, allergy history and patient home medications list prior to surgery/procedure/anesthetic and documented any changes. Performed airway and anesthesia risk assessments. Anesthesia Type Anesthesia Type: General History Source History Obtained from:: Patient and Chart Anesthesia Focused Assessment* Temperature: 97.8 F Pulse Rate: 91 Blood Pressure: 105/61 Respiratory Rate: 16 Pulse Ox: 100 Oxygen Delivery Method: Room Air Airway Assessment Mouth opens: >3 cm Mallampati Score: II Teeth Condition: Intact Neck Range of motion (ROM): Full ROM Focused Labs Anesthesia Preop lab: CBC WBC 6.6 K/mm3 (4.4-11.0) 09/07/15 08:00 09/07/15 RBC 4.88 M/mm3 (4.2-5.4) 09/07/15 08:00 09/07/15 Hgb 14.4 g/dl (12.0-15.0) 09/07/15 08:00 09/07/15 Hct 43.1 % (37-47) 09/07/15 08:00 09/07/15 Plt Count 231 K/mm3 (150-450) 09/07/15 08:00 09/07/15 CHEMISTRY Potassium 3.7 mmol/L (3.5-5.1) 09/07/15 08:00 09/07/15 Sodium 139 mmol/L (136-145) 09/07/15 08:00 09/07/15 BUN 18 mg/dL (7-18) 09/07/15 08:00 09/07/15 Creatinine 1.03 mg/dL (0.55-1.20) 09/07/15 08:00 09/07/15 Glucose 80 mg/dL (70-110) 09/07/15 08:00 12/03/15 COAG Pre-Assessment Diagnosis/Proposed Procedure Planned Operative Procedure(s): CSCOPE Anesthesia History 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 When Was Last Pacemaker Check QUESTION #4 FULL TEXT: You/Your Family Experience fever (hyperthermia) with Anesthesia Last Oral Intake Last Oral intake: Last Oral Intake NPO since 23:00 12/21/24 09:33 Meds taken in AM with sips of water? 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 Female Yes 12/20/24 11:07 HX of Motion Sickness No 12/20/24 11:07 HX of N/V After Surgery No 12/20/24 11:07 Non-Smoker Yes 12/20/24 11:07 Duration of Surgery greater No 12/20/24 11:07 than 60 minutes Number of Risk Factors 2 12/20/24 11:07 PONV Score Moderate Risk 12/20/24 11:07 Height & Weight Height & Weight: Anesthesia: Height & Weight Height 5 ft 5 in 12/21/24 09:33 Weight: 52.8 kg 12/21/24 09:33 Body Mass Index (BMI) 19.3 12/21/24 09:33 Respiratory Assessment Respiratory Assessment - records section supervisor: Respiratory Tract Infection Hx - records section supervisor Hx Respiratory Tract Infection No 12/20/24 11:07 STOP Sleep Apnea STOP Sleep Apnea - records section supervisor: STOP Sleep Apnea - records section supervisor Hx Hypertension No 12/20/24 11:07 Hx Sleep Apnea No 12/20/24 11:07 CPAP BIPAP Do you snore loudly (louder No 12/20/24 11:07 than talking or can be heard Do you often feel tired/ No 12/20/24 11:07 fatigued/ sleepy during daytime? Has anyone observed you stop No 12/20/24 11:07 breathing during sleep? STOP Results Negative 12/20/24 11:07 QUESTION #5 FULL TEXT : Do you snore loudly (louder than talking or can be heard through closed doors)? 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 Specify any problems Hx of Preganancy in last 3 N/A 12/20/24 11:07 Months Nurse Filling Out Transfusion NBUCHER 12/20/24 11:07 & Questions: Date: 12/20/24 12/20/24 11:07 Time: 11:08 12/20/24 11:07 Patient unable to answer at this time (ie. 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 Hx Now No 12/20/24 11:07 Gestational Age (in weeks): EDC: Hx Hx Para Hx Section SAB No 12/20/24 11:07 PFSH Medical History (Updated 12/20/24 @ 11:14 by Rachel Loving) History of chemotherapy Wears glasses Cancer Anemia History of IBS Non-smoker Ovarian cancer Blood in stool, nikki Home Medications ?Medication ?Instructions ?Recorded ?Last Taken ?Type loperamide 2 mg capsule 2 mg PO Q1-4H 06/04/19 Unkno wn History dicyclomine 10 mg capsule 10 mg PO TID PRN Abdominal P ain 09/04/21 Unknown History dexamethasone 4 mg tablet 20 mg PO DAILY PRN CHEMO Unknown History nutrutional supplement (JAYLIN FARMS PO 12/17/24 Unknown History STANDARD 1.4) 0.06G-1.4Kcal/mL oral liquid ondansetron 8 mg disintegrating 8 mg PO Q8 PRN nausea/ vomiting 12/17/24 Unknown History tablet prochlorperazine maleate 10 mg 10 mg PO BID PRN nausea and 12/17/24 Unknown History tablet (Compazine) vomiting Allergy/AdvReac Type Severity Reaction Status Date / Time No Known Allergies Allergy Verified 12/21/24 09:32 Family History Father CAD (coronary artery disease) Mother No problems noted. Surgical History History of reversal of ileostomy History of resection of small bowel Hx of colonoscopy H/O: hysterectomy Social History adopted: No current occupational status: unemployed Smoking Status: Never smoker alcohol intake: current alcohol intake frequency: holidays/special occasions only substance use type: does not use what type of physical activity do you participate in: walking frequency: 5-6 times per week seatbelt use: always do you feel safe at home: Yes additional social history: Spouse: Cliff Review of Systems (Anesthesia) ROS Narrative System reviewed and no additional complaints, except as documented. Physical Exam Const alert, oriented x3 and average body habitus Resp normal respiratory effort, normal air movement and clear to auscultation bilaterally Cardio regular rate, regular rhythm, no murmurs and diaphoretic 12/21/24 1010 <Electronically signed by Federico Joshua MD> Date _ Federico Joshua MD Cosigner Signature: Date CC: ~ Signed [facility] Work Phone: [phone] 226-819003-18-2025 History and physical note Author Leydi Carmen [facility] Note Date/Time December 21, 2024 10: 37am [facility] Medical Records Department [address] [place] [address] History & Physical Exam 12/21/24 1005 MR#: [id number] Acct: [id number] Name: SAL BAUTISTA Rep #:[id number] : 1950 74 From: Leydi Carmen MD PCP: Dr. Romel Michelle MD Status:[facility] Location: [place] [address] History and Physical Date of Admission: 12/21/24 Date of Service: 12/17/24 MR#: [id number] Acct: [id number] Name: SAL BAUTISTA Rep #: [id number] : 1950 Provider: Dr. Leydi Carmen MD Age/Sex: 74/F Location: [facility] Status: Signed Intake Vital Signs 09/04/2114:32 12/18/2507:51 Height 5 ft 5 in 5 ft 5 in Weight: 122 lb BMI 20.2 BP 105/63 Blood Pressure Location Rt brachial Position Sitting Respiration 18 Pulse 71 Pulse Source Monitor Temp 97.2 F L Temp Source Temporal Pulse Oximetry (%) 98 Oxygen Delivery Method room air Intake Visit Reasons: RECTAL BLEED Chief Complaint: rectal bleed Accompanied by: Is patient in pain?: No Allergies No Known Allergies Allergy (Verified 09/04/21 14:31) Medications ?Medication ?Instructions ?Recorded ?Confirmed ?Type loperamide 2 mg capsule 2 mg PO Q1-4H 06/04/19 09/04/21 History dicyclomine 10 mg capsule 10 mg PO TID PRN Abdominal Pain 09/04/21 History cholecalciferol (vitamin D3) 50 50 mcg PO QDAY 12/17/24 12/17/24 History mcg (2,000 unit) capsule dexamethasone 4 mg tablet 20 mg PO 12/17/24 12/17/24 History nutrutional supplement (JAYLIN FARMS PO 12/17/24 History STANDARD 1.4) 0.06G-1.4Kcal/mL oral liquid ondansetron 8 mg disintegrating 8 mg PO Q8 PRN nausea/vomiting 12/17/24 12/17/24 History tablet prochlorperazine maleate 10 mg 10 mg PO BID PRN 12/17/24 12/17/24 Histo ry tablet (Compazine) Have you fallen in the past year?: No PFSH Medical History (Updated 12/17/24 @ 08:50 by Bushra Wiseman LPN) Ovarian cancer Blood in stool, nikki Surgical History (Updated 12/17/24 @ 08:50 by Bushra Wiseman LPN) History of reversal of ileostomy History of resection of small bowel Hx of colonoscopy H/O: hysterectomy Family History Father CAD (coronary artery disease)Mother No problems noted. Social History adopted: No current occupational status: unemployed Smoking Status: Never smoker alcohol intake: current alcohol intake frequency: holidays/special occasions only substance use type: does not use what type of physical activity do you participate in: walking frequency: 5-6 times per week seatbelt use: always do you feel safe at home: Yes additional social history: Spouse: Cliff VELEZ HPI HPI: 74-year-old female presents for colonoscopy due to bleeding per rectum. Patientstates after her surgery in September she did have a bit of diarrhea due to the reversal of the ileostomy and she did notice some bright red blood from her rectum at that time. Patient states she does have bowel movements daily states it has improved over this time but still does occasionally have some blood whichwill tinged that water of the toilet. Patient denies any abdominal pain or any nausea or vomiting. Patient last colonoscopy was in [address] Hughes. Patient is currently being treated by Dr. Hall for ovarian cancer and will be changing her regimen to include medications that may further exacerbate bleedingso he recommended colonoscopy prior to starting. ROS General General: No weight change, appetite, fatigue, colon cancer, breast cancer or weakness Additional Details: ovarian cancer HEENT HEENT: No difficulty swallowing, eye injury, eye surgery, swollen glands or hoarseness Endo Endocrine: No thyroid disease, diabetes mellitus, thyroid cancer, Hair loss, heat intolerance or cold intolerance Skin Skin: No rash or changing moles Musc Musculoskeletal: No back problems, arthritis, rheumatoid arthritis, gout or joint pain Cardio Cardiovascular: No murmur, pacemaker, heart disease, atrial fibrillation, high blood pressure, heart attack, heart stent, palpitations, shortness of breath with exertion or chest pain Psych Psychiatric: No depression, anxiety or hearing voices Resp Respiratory: No shortness of breath, No sleep apnea, No cough, No COPD, No asthma, No emphysema and No wheezing Gastro Gastrointestinal: No abdominal pain, No nausea or vomiting, No diarrhea, No constipation, Yes blood in stool, No acid reflux, No hemorrhoids, No ulcers, No gallbladder problem and No black,tarry stools Kan Hematologic: No blood thinners, No blood disorders, No bleeding, Yes anemia and No blood clots Neuro Neurologic: No numbness, No tingling and No weakness Exam Const General: cooperative, healthy appearing, comfortable and no acute distress HENMT Head: normocephalic and atraumatic Neck Neck: supple Resp Effort & Inspection: normal respiratory effort Cardio Rate: regular rate GI Inspection: non-distended Palpation: soft and nontender Skin General: no rashes or lesions noted Neuro General: CN's II-XI intact bilaterally Extrem General: normal to inspection Psych Mental Status: mental status grossly normal Attitude: cooperative Assessment and Plan Assessment and Plan (1) Blood in stool, nikki: Status: Acute Plan I have discussed the above with the patient. I have offered the patient colonoscopy for evaluation?plan to schedule for 12/21 to not interfere with patient was planned treatment day of 12/24. I have explained the risks/benefits of the procedure and described the procedure. I have discussed the risks with the patient, including but not limited to: infection, bleeding, perforation of the GI tract requiring emergency surgery, inability to complete the procedure, injury to any internal organs, complications of anesthesia, etc. - the patient understands and agrees toproceed. I have answered all the patient's questions to the patient's satisfaction and the patient has no further questions. The patient has been given instructions for the colon cleansing preparation. 1 day of clears, MiraLAX Dulcolax prep Leydi Carmen M.D. Pager: [phone] [facility] [address] [place] [address], [facility], [address] [place] [address] Office: [phone] Coding Level of Care Code Off vis,new,level 3 Diagnoses Blood in stool, nikki K92.1 Clinical Quality Measures Falls Risk Screening/Assistive Devices Have you fallen in the past year?: No 12/17/24 1323 <Electronically signed by Leydi Carmen MD> Date Leydi Carmen MD 12/21/24 1006 <Electronically signed by Leydi Carmen MD> Cosigner Signature (if applicable): CC: Dr. Romel Michelle MD; Dr. Leydi Carmen MD~ Signed ADDENDUM by Dr. Leydi Carmen MD on 12/21/24 at 1037 Addendum I have examined the patient and the H&P has been reviewed. There are no clinicalchanges since date of exam. Patient denies any bleeding with the prep. 12/21/24 1037<Electronically signed by Leydi Carmen MD> Cosigner Signature (if applicable): cc: Dr. Romel Michelle MD; Dr. Leydi Carmen MD ~* Signed [facility] Work Phone: [phone] 239-972603-18-2025 Procedure note [facility] Medical Records Department [address] [place] [address] Colonoscopy Report MR#: [id number] Acct: [id number] Name: SAL BAUTISTA Rep #:[id number] : 1950 74 From: Leydi Carmen MD PCP: Dr. Romel Michelle MD Status:[facility] Patient Name: Sal Bautista Procedure Date: 12/21/2024 10:40 AM Date of : 1950 Age: 74 Procedure: Colonoscopy Indications: Rectal bleeding Providers: Leydi Carmen MD Referring MD: Romel Michelle Medicines: Monitored Anesthesia Care Patient Profile: This is a 74 year old female. Last Colonoscopy: 2016. She is status post sigmoid colectomy and ileostomy reversal within the past six months. Complications: No immediate complications. Procedure: Pre-Anesthesia Assessment: - Prior to the procedure, a History and Physical was performed, and patient medications and allergies were reviewed. The patient's tolerance of previous anesthesia was also reviewed. The risks and benefits of the procedure and the sedation options and risks were discussed with the patient. All questions were answered, and informed consent was obtained. Prior Anticoagulants: The patient has taken no anticoagulant or antiplatelet agents except for aspirin. ASA Grade Assessment: Per anesthesia. After reviewing the risks and benefits, the patient was deemed in satisfactory condition to undergo the procedure. After I obtained informed consent, the scope was passed under direct vision. Throughout the procedure, the patient's blood pressure, pulse, and oxygen saturations were monitored continuously. The pediatric colonoscope was introduced through the anus and advanced to the cecum, identified by the appendiceal orifice, ileocecal valve and palpation. The colonoscopy was performed without difficulty. The patient tolerated the procedure well. The quality of the bowel preparation was good. Scope In: 10:48:17 AM Scope Withdrawal Time 0 hours 33 minutes 33 seconds Scope Out: 11:36:55 AM Total Procedure Duration Time 0 hours 48 minutes 38 seconds Findings: The perianal and digital rectal examinations were normal. There was evidence of a prior end-to-end colo-rectal anastomosis in the rectum. This was patent and was characterized by erythema and friable mucosa. The anastomosis was traversed. Coagulation for hemostasis using argon plasma was successful. Estimated blood loss was minimal. Initially did attempt to clip however this did not work well thus the clips were removed???1 with snare and 1 fell off and APC was used on the friable tissue with good results. The exam was otherwise without abnormality. Impression: - Patent end-to-end colo-rectal anastomosis, characterized by erythema and friable mucosa. Treated with argon plasma coagulation (APC). - The examination was otherwise normal. - No specimens collected. Recommendation: - Discharge patient to home. - Resume previous diet. - Continue present medications. - Repeat colonoscopy depending on overall health at that time. Procedure Code(s): --- Professional --- 79983, Colonoscopy, flexible; with control of bleeding, any method Diagnosis Code(s): --- Professional --- Z98.0, Intestinal bypass and anastomosis status K62.5, Hemorrhage of anus and rectum CPT copyright 2021 [employer]. All rights reserved. The codes documented in this report are preliminary and upon exercise equipment specialist review may be revised to meet current compliance requirements. MD Leydi Kaba MD 12/21/2024 11:48:07 AM This report has been signed electronically. Number of Addenda: 0 Note Initiated On: 12/21/2024 10:40 AM 12/21/24 1148 Date _ Leydi Carmen MD Cosigner Signature: Date (if indicated) CC: Dr. Romel Michelle MD; Dr. Leydi Carmen MD ~ Date Dictated: 12/21/24 1040 Date Transcribed: Senior Strategy Analyst: TR Signed [facility]03-18-2025 Procedure note [facility] Medical Records Department [address] [place] [address] Operative Report - CC Letter MR#: [id number] Acct: [id number] Name: SAL BAUTISTA Rep #:[id number] : 1950 74 From: Leydi Carmen MD PCP: Dr. Romel Michelle MD Status:[facility] 12/21/2024 Romel Michelle [address] [place] [address] Re : Colonoscopy procedure for Sal Bautista Dear Dr. Michelle This procedure was performed on Saturday, December 21, 2024. My impressions and recommendations are as follows: Impressions : - Patent end-to-end colo-rectal anastomosis, characterized by erythema and friable mucosa. Treated with argon plasma coagulation (APC). - The examination was otherwise normal. - No specimens collected. Recommendations : - Discharge patient to home. - Resume previous diet. - Continue present medications. - Repeat colonoscopy depending on overall health at that time. My findings are described in the full procedure note, which is enclosed. If I can be of further assistance, please feel free to contact me at Doctor phone number(s): , Work: . Sincerely, MD Leydi Kaba MD 12/21/2024 11:48:07 AM This report has been signed electronically. 12/21/24 1148 Date _ Leydi Carmen MD Cosigner Signature: Date (if indicated) CC: Dr. Romel Michelle MD; Dr. Nile Hall DO; Dr. Leydi Carmen MD ~ Date Dictated: 12/21/24 1040 Date Transcribed: Senior Strategy Analyst: TR Signed [facility]03-18-2025 History and physical note [facility] Medical Records Department [address] [place] [address] History & Physical Exam 12/21/24 1005 MR#: [id number] Acct: [id number] Name: SAL BAUTISTA Rep #:[id number] : 1950 74 From: Leydi Carmen MD PCP: Dr. Romel Michelle MD Status:[facility] Location: [place] [address] History and Physical Date of Admission: 12/21/24 Date of Service: 12/17/24 MR#: [id number] Acct: [id number] Name: SAL BAUTISTA Rep #: [id number] : 1950 Provider: Dr. Leydi Carmen MD Age/Sex: 74/F Location: [facility] Status: Signed Intake Vital Signs 09/04/2114:32 12/18/2507:51 Height 5 ft 5 in 5 ft 5 in Weight: 122 lb BMI 20.2 BP 105/63 Blood Pressure Location Rt brachial Position Sitting Respiration 18 Pulse 71 Pulse Source Monitor Temp 97.2 F L Temp Source Temporal Pulse Oximetry (%) 98 Oxygen Delivery Method room air Intake Visit Reasons: RECTAL BLEED Chief Complaint: rectal bleed Accompanied by: Is patient in pain?: No Allergies No Known Allergies Allergy (Verified 09/04/21 14:31) Medications ?Medication ?Instructions ?Recorded ?Confirmed ?Type loperamide 2 mg capsule 2 mg PO Q1-4H 06/04/19 09/04/21 History dicyclomine 10 mg capsule 10 mg PO TID PRN Abdominal Pain 09/04/21 History cholecalciferol (vitamin D3) 50 50 mcg PO QDAY 12/17/24 12/17/24 History mcg (2,000 unit) capsule dexamethasone 4 mg tablet 20 mg PO 12/17/24 12/17/24 History nutrutional supplement (JAYLIN FARMS PO 12/17/24 History STANDARD 1.4) 0.06G-1.4Kcal/mL oral liquid ondansetron 8 mg disintegrating 8 mg PO Q8 PRN nausea/vomiting 12/17/24 12/17/24 History tablet prochlorperazine maleate 10 mg 10 mg PO BID PRN 12/17/24 12/17/24 Histo ry tablet (Compazine) Have you fallen in the past year?: No PFSH Medical History (Updated 12/17/24 @ 08:50 by Bushra Wiseman LPN) Ovarian cancer Blood in stool, nikki Surgical History (Updated 12/17/24 @ 08:50 by Bushra Wiseman LPN) History of reversal of ileostomy History of resection of small bowel Hx of colonoscopy H/O: hysterectomy Family History Father CAD (coronary artery disease)Mother No problems noted. Social History adopted: No current occupational status: unemployed Smoking Status: Never smoker alcohol intake: current alcohol intake frequency: holidays/special occasions only substance use type: does not use what type of physical activity do you participate in: walking frequency: 5-6 times per week seatbelt use: always do you feel safe at home: Yes additional social history: Spouse: Cliff ROSIE HPI HPI: 74-year-old female presents for colonoscopy due to bleeding per rectum. Patientstates after her surgery in September she did have a bit of diarrhea due to the reversal of the ileostomy and she did notice some bright red blood from her rectum at that time. Patient states she does have bowel movementsdaily states it has improved over this time but still does occasionally have some blood whichwill tinged that water of the toilet. Patient denies any abdominal pain or any nausea or vomiting. Patientlast colonoscopy was in [address] Hughes. Patient is currently being treated by Dr. Hall for ovarian cancer and will be changing her regimen to include medications that may further exacerbate bleedingso he recommended colonoscopy prior to starting. ROS General General: No weight change, appetite, fatigue, colon cancer, breast cancer or weakness Additional Details: ovarian cancer HEENT HEENT: No difficulty swallowing, eye injury, eye surgery, swollen glands or hoarseness Endo Endocrine: No thyroid disease, diabetes mellitus, thyroid cancer, Hair loss, heat intolerance or cold intolerance Skin Skin: No rash or changing moles Musc Musculoskeletal: No back problems, arthritis, rheumatoid arthritis, gout or joint pain Cardio Cardiovascular: No murmur, pacemaker, heart disease, atrial fibrillation, high blood pressure, heart attack, heart stent, palpitations, shortness of breath with exertion or chest pain Psych Psychiatric: No depression, anxiety or hearing voices Resp Respiratory: No shortness of breath, No sleep apnea, No cough, No COPD, No asthma, No emphysema andNo wheezing Gastro Gastrointestinal: No abdominal pain, No nausea or vomiting, No diarrhea, No constipation, Yes bloodin stool, No acid reflux, No hemorrhoids, No ulcers, No gallbladder problem and No black,tarry stools Kan Hematologic: No blood thinners, No blood disorders, No bleeding, Yes anemia and No blood clots Neuro Neurologic: No numbness, No tingling and No weakness Exam Const General: cooperative, healthy appearing, comfortable and no acute distress [facility] Head: normocephalic and atraumatic Neck Neck: supple Resp Effort & Inspection: normal respiratory effort Cardio Rate: regular rate GI Inspection: non-distended Palpation: soft and nontender Skin General: no rashes or lesions noted Neuro General: CN's II-XI intact bilaterally Extrem General: normal to inspection Psych Mental Status: mental status grossly normal Attitude: cooperative Assessment and Plan Assessment and Plan (1) Blood in stool, nikki: Status: Acute Plan I have discussed the above with the patient. I have offered the patient colonoscopy for evaluation?plan to schedule for 12/21 to not interfere with patient was planned treatment day of 12/24. I have explained the risks/benefits of the procedure and described the procedure. I have discussed the risks with the patient, including but not limited to: infection, bleeding, perforation of the GItract requiring emergency surgery, inability to complete the procedure, injury to any internal organs, complications of anesthesia, etc. - the patient understands and agrees toproceed. I have answered all the patient's questions to the patient's satisfaction and the patient has no further questions. The patient has been given instructions for the colon cleansing preparation. 1 day of clears, MiraLAX Dulcolax prep Leydi Carmen M.D. Pager: [phone] [facility] [address] [place] [address], [facility], [address] [place] [address] Office: [phone] Coding Level of Care Code Off vis,new,level 3 Diagnoses Blood in stool, nikki K92.1 Clinical Quality Measures Falls Risk Screening/Assistive Devices Have you fallen in the past year?: No 12/17/24 1323 Date Leydi Carmen MD 12/21/24 1006 Cosigner Signature (if applicable): CC: Dr. Romel Michelle MD; Dr. Leydi Carmen MD~ Signed ADDENDUM by Dr. Leydi Carmen MD on 12/21/24 at 1037 Addendum I have examined the patient and the H&P has been reviewed. There are no clinicalchanges since date of exam. Patient denies any bleeding with the prep. 12/21/24 1037 Cosigner Signature (if applicable): cc: Dr. Romel Michelle MD; Dr. Leydi Carmen MD ~* Signed [facility]03-18-2025 Consult note [facility] Medical Records Department [address] [place] [id number] Pre-Anesthesia Evaluation 12/21/24 1005 MR#: [id number] Acct: [id number] Name: SAL BAUTISTA Rep #:[id number] : 1950 74 From: Federico Joshua MD PCP: Dr. Romel Michelle MD Status:RE G SDC Y Race: C Location: AC15-1 ASA Classification* ASA Classification ASA Classification: 2 (Hx ovarian cancer, having rectal bleeding. No known cardiac hx, nonsmoker ) Assessment & Plan Anesthesia* Anesthesia Assessment Anesthesia Assessment: Discussed sedation and/or anesthesia options, risks, benefits, and alternatives with patient/parents/legal guardian/POA. Questions invited. The patient/parents/legal guardian/POA seems to understand and agrees to proceedwith anesthesia plan. Reviewed the physical assessment, medical history, allergy history and patient home medications list prior to surgery/procedure/anesthetic and documented any changes. Performed airway and anesthesia risk assessments. Anesthesia Type Anesthesia Type: General History Source History Obtained from:: Patient and Chart Anesthesia Focused Assessment* Temperature: 97.8 F Pulse Rate: 91 Blood Pressure: 105/61 Respiratory Rate: 16 Pulse Ox: 100 Oxygen Delivery Method: Room Air Airway Assessment Mouth opens: >3 cm Mallampati Score: II Teeth Condition: Intact Neck Range of motion (ROM): Full ROM Focused Labs Anesthesia Preop lab: CBC WBC 6.6 K/mm3 (4.4-11.0) 09/07/15 08:00 09/07/15 RBC 4.88 M/mm3 (4.2-5.4) 09/07/15 08:00 09/07/15 Hgb 14.4 g/dl (12.0-15.0) 09/07/15 08:00 09/07/15 Hct 43.1 % (37-47) 09/07/15 08:00 09/07/15 Plt Count 231 K/mm3 (150-450) 09/07/15 08:00 09/07/15 CHEMISTRY Potassium 3.7 mmol/L (3.5-5.1) 09/07/15 08:00 09/07/15 Sodium 139 mmol/L (136-145) 09/07/15 08:00 09/07/15 BUN 18 mg/dL (7-18) 09/07/15 08:00 09/07/15 Creatinine 1.03 mg/dL (0.55-1.20) 09/07/15 08:00 09/07/15 Glucose 80 mg/dL (70-110) 09/07/15 08:00 09/07/15 COAG Pre-Assessment Diagnosis/Proposed Procedure Planned Operative Procedure(s): CSCOPE Anesthesia History 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 When Was Last Pacemaker Check QUESTION #4 FULL TEXT: You/Your Family Experience fever (hyperthermia) with Anesthesia Last Oral Intake Last Oral intake: Last Oral Intake NPO since 23:00 12/21/24 09:33 Meds taken in AM with sips of water? 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 Female Yes 12/20/24 11:07 HX of Motion Sickness No 12/20/24 11:07 HX of N/V After Surgery No 12/20/24 11:07 Non-Smoker Yes 12/20/24 11:07 Duration of Surgery greater No 12/20/24 11:07 than 60 minutes Number of Risk Factors 2 12/20/24 11:07 PONV Score Moderate Risk 12/20/24 11:07 Height & Weight Height & Weight: Anesthesia: Height & Weight Height 5 ft 5 in 12/21/24 09:33 Weight: 52.8 kg 12/21/24 09:33 Body Mass Index (BMI) 19.3 12/21/24 09:33 Respiratory Assessment Respiratory Assessment - records section supervisor: Respiratory Tract Infection Hx - records section supervisor Hx Respiratory Tract Infection No 12/20/24 11:07 STOP Sleep Apnea STOP Sleep Apnea - records section supervisor: STOP Sleep Apnea - records section supervisor Hx Hypertension No 12/20/24 11:07 Hx Sleep Apnea No 12/20/24 11:07 CPAP BIPAP Do you snore loudly (louder No 12/20/24 11:07 than talking or can be heard Do you often feel tired/ No 12/20/24 11:07 fatigued/ sleepy during daytime? Has anyone observed you stop No 12/20/24 11:07 breathing during sleep? STOP Results Negative 12/20/24 11:07 QUESTION #5 FULL TEXT : Do you snore loudly (louder than talking or can be heard through closeddoors)? 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 Specify any problems Hx of Preganancy in last 3 N/A 12/20/24 11:07 Months Nurse Filling Out Transfusion NBUCHER 12/20/24 11:07 & Questions: Date: 12/20/24 12/20/24 11:07 Time: 11:08 12/20/24 11:07 Patient unable to answer at this time (ie. 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 Hx Now No 12/20/24 11:07 Gestational Age (in weeks): EDC: Hx Hx Para Hx Section SAB No 12/20/24 11:07 [facility] Medical History (Updated 12/20/24 @ 11:14 by Rachel Loving) History of chemotherapy Wears glasses Cancer Anemia History of IBS Non-smoker Ovarian cancer Blood in stool, nikki Home Medications ?Medication ?Instructions ?Recorded ?Last Taken ?Type loperamide 2 mg capsule 2 mg PO Q1-4H 06/04/19 Unkno wn History dicyclomine 10 mg capsule 10 mg PO TID PRN Abdominal P ain 09/04/21 Unknown History dexamethasone 4 mg tablet 20 mg PO DAILY PRN CHEMO Unknown History nutrutional supplement (JAYLIN FARMS PO 12/17/24 Unknown History STANDARD 1.4) 0.06G-1.4Kcal/mL oral liquid ondansetron 8 mg disintegrating 8 mg PO Q8 PRN nausea/ vomiting 12/17/24 Unknown History tablet prochlorperazine maleate 10 mg 10 mg PO BID PRN nausea and 12/17/24 Unknown History tablet (Compazine) vomiting Allergy/AdvReac Type Severity Reaction Status Date / Time No Known Allergies Allergy Verified 12/21/24 09:32 Family History Father CAD (coronary artery disease) Mother No problems noted. Surgical History History of reversal of ileostomy History of resection of small bowel Hx of colonoscopy H/O: hysterectomy Social History adopted: No current occupational status: unemployed Smoking Status: Never smoker alcohol intake: current alcohol intake frequency: holidays/special occasions only substance use type: does not use what type of physical activity do you participate in: walking frequency: 5-6 times per week seatbelt use: always do you feel safe at home: Yes additional social history: Spouse: Cliff Review of Systems (Anesthesia) ROS Narrative System reviewed and no additional complaints, except as documented. Physical Exam Const alert, oriented x3 and average body habitus Resp normal respiratory effort, normal air movement and clear to auscultation bilaterally Cardio regular rate, regular rhythm, no murmurs and diaphoretic 12/21/24 1010 > Date _ Federico Joshua MD [facility] Signature: Date CC: ~ Signed [facility]03-18-2025 [facility] Medical Records Department [address] [place] [address] History Physical Exam 12/21/24 1005 MR#: [id number] Acct: [id number] Name: SAL BAUTISTA Rep #: [id number] : 1950 74 From: Leydi Carmen MD PCP: Dr. Romel Michelle MD Status:[facility] Location: [place] [address] History and Physical Date of Admission: 12/21/24 Date of Service: 12/17/24 MR#: [id number] Acct: [id number] Name: SAL BAUTISTA Rep #: [id number] : 1950 Provider: Dr. Leydi Carmen MD Age/Sex: 74/F Location: [facility] Status: Signed Intake Vital Signs 09/04/2114:32 12/18/2507:51 Height 5 ft 5 in 5 ft 5 in Weight: 122 lb BMI 20.2 BP 105/63 Blood Pressure Location Rt brachial Position Sitting Respiration 18 Pulse 71 Pulse Source Monitor Temp 97.2 F L Temp Source Temporal Pulse Oximetry (%) 98 Oxygen Delivery Method room air Intake Visit Reasons: RECTAL BLEED Chief Complaint: rectal bleed Accompanied by: Is patient in pain?: No Allergies No Known Allergies Allergy (Verified 09/04/21 14:31) Medications ???Medication ???Instructions ???Recorded ???Confirmed ???Type loperamide 2 mg capsule 2 mg PO Q1-4H 06/04/19 09/04/21 History dicyclomine 10 mg capsule 10 mg PO TID PRN Abdominal Pain 09/04/21 History cholecalciferol (vitamin D3) 50 50 mcg PO QDAY 12/17/24 12/17/24 History mcg (2,000 unit) capsule dexamethasone 4 mg tablet 20 mg PO 12/17/24 12/17/24 History nutrutional supplement (JAYLIN FARMS PO 12/17/24 History STANDARD 1.4) 0.06G-1.4Kcal/mL oral liquid ondansetron 8 mg disintegrating 8 mg PO Q8 PRN nausea/vomiting 12/17/24 12/17/24 H istory tablet prochlorperazine maleate 10 mg 10 mg PO BID PRN 12/17/24 12/17/24 History tablet (Compazine) Have you fallen in the past year?: No PFSH Medical History (Updated 12/17/24 @ 08:50 by Bushra Wiseman LPN) Ovarian cancer Blood in stool, nikki Surgical History (Updated 12/17/24 @ 08:50 by Bushra Wiseman LPN) History of reversal of ileostomy History of resection of small bowel Hx of colonoscopy H/O: hysterectomy Family History Father CAD (coronary artery disease)Mother No problems noted. Social History adopted: No current occupational status: unemployed Smoking Status: Never smoker alcohol intake: current alcohol intake frequency: holidays/special occasions only substance use type: does not use what type of physical activity do you participate in: walking frequency: 5-6 times per week seatbelt use: always do you feel safe at home: Yes additional social history: Spouse: Cliff VELEZ HPI HPI: 74-year-old female presents for colonoscopy due to bleeding per rectum. Patient states after her surgery in September she did have a bit of diarrhea due to the reversal of the ileostomy and she did notice some bright red blood from her rectum at that time. Patient states she does have bowel movements daily states it has improved over this time but still does occasionally have some blood which will tinged that water of the toilet. Patient denies any abdominal pain or any nausea or vomiting. Patient last colonoscopy was in [address] Hughes. Patient is currently being treated by Dr. Hall for ovarian cancer and will be changing her regimen to include medications that may further exacerbate bleeding so he recommended colonoscopy prior to starting. ROS General General: No weight change, appetite, fatigue, colon cancer, breast cancer or weakness Additional Details: ovarian cancer HEENT HEENT: No difficulty swallowing, eye injury, eye surgery, swollen glands or hoarseness Endo Endocrine: No thyroid disease, diabetes mellitus, thyroid cancer, Hair loss, heat intolerance or cold intolerance Skin Skin: No rash or changing moles Musc Musculoskeletal: No back problems, arthritis, rheumatoid arthritis, gout or joint pain Cardio Cardiovascular: No murmur, pacemaker, heart disease, atrial fibrillation, high blood pressure, heart attack, heart stent, palpitations, shortness of breath with exertion or chest pain Psych Psychiatric: No depression, anxiety or hearing voices Resp Respiratory: No shortness of breath, No sleep apnea, No cough, No COPD, No asthma, No emphysema and No wheezing Gastro Gastrointestinal: No abdominal pain, No nausea or vomiting, No diarrhea, No constipation, Yes blood in stool, No acid reflux, No hemorrhoids, No ulcers, No gallbladder problem and No black,tarry stools Kan Hematologic: No blood thin (more content not included)...[facility]03-14-2025 Evaluation note* Diagnosis Onset Date Resolution Status Admit Date Blood in stool, nikki acute Mar ch 2024 8:32am [facility] Work Phone: 1(757) 925-173803-13-2025 History of Present illness Narrative* Bushra Liu, RT(R) - 12/16/2024 10:00 AM EDT Radiology Service Progress Note DATE OF SERVICE: December 16, 2024 TIME: 2:42 PM PATIENT IDENTITY VERIFICATION COMPLETED USING TWO (2) STANDARD IDENTIFIERS: Name and Date of confirmed by patient verbally. FALL SCREENING: Has the patient had 2 falls in the last year or 1 fall with injury or currently using an Ambulatory Assistive Device (Walker, Cane, Wheelchair, Crutches, etc.)? No PATIENT GENDER DATA: Assigned female at . status: : No status:NO. PATIENT RELEVANT IMPLANT DATA REVIEWED: Yes PATIENT PRESENTS WITH AN IMPLANTABLE OR ATTACHED MILK TANKER DRIVER: No ALLERGIES: Reviewed and unchanged CONTRAST ALLERGY: NO. EXAM: CT -CONTRAST INDUCED NEPHROPATHY RISK FACTORS: Patient age > 60 years CREATININE: Creatinine Date Value Ref Range Status 12/02/2024 0.85 0.58 - 0.96 mg/dL Final 11/11/2024 0.77 0.58 - 0.96 mg/dL Final 10/22/2024 0.73 0.58 - 0.96 mg/dL Final Estimated Glomerular Filtration Rate Date Value Ref Range Status 12/02/2024 73 >=60 mL/min/1.73m Final Comment: Estimated Glomerular Filtration Rate (eGFR) is calculated using the 2020 CKD-EPI creatinine equation. This equation utilizes serum creatinine, sex, and age as parameters. The creatinine assay has traceable calibration to isotope dilution- mass spectrometry. Refer to KDIGO guidelines for clinical interpretation. In patients with unstable renal function, e.g. those with acute kidney injury, the eGFRmay not accurately reflect actual GFR. eGFR- Date Value Ref Range Status 06/15/2019 >60 Final P.O.C.T. RESULTS: POC done: Yes, See Lab Tab December 16, 2024 TREATMENT: N/A PERIPHERAL IV DATA: Ambulatory: A peripheral IV was started in the Left antecubital site with a Angio cath: 22 gauge. RADIOLOGY DEPARTMENT: CT; Exam(s) Completed: Chest Abdomen Pelvis SIGNATURE: RT Maira(R) PATIENT NAME: Sal Bautista DATE: December 16, 2024 TIME: 2:42 PM documented [facility] Telephone encounter Note* Telephone Encounter - Kellie Ferrera - 12/02/2024 4:29 PM EST Scheduled new treatment as directed Kellie Ferrera [facility]02-27-[facility] Miscellaneous Notes* Telephone Encounter - Kellie Ferrera - 12/02/2024 4:29 PM EST Scheduled new treatment as directed Kellie Ferrera * Telephone Encounter - Kellie Ferrera - 12/02/2024 9:43 AM EST Repeat CBC prior to tomorrow's treatment.-done 12/03/2024 will be the last dose of Carbo/Taxol. Referral to Dr. Carmen at [facility] for rectal bleeding.-FAXED CT C/A/P when able.-SCHEDULED Begin every 3 week bevacizumab in 3-4 weeks. CBC/CMP/CA 125 with each cycle. OV/CBC/CMP/CA 125 with Cycle 2. OV's every other cycle. Alternate OV's between Dr. Hall and the DIRECTOR OF NURSING's. Adding --needs Chemo ED Kellie Ferrera documented in this encounterFostoria [facility]02-27-2025 Telephone encounter Note * Telephone Encounter - Kellie Ferrera - 12/02/2024 9:43 AM EST Repeat CBC prior to tomorrow's treatment.-done 12/03/2024 will be the last dose of Carbo/Taxol. Referral to Dr. Carmen at [facility] for rectal bleeding.-FAXED CT C/A/P when able.-SCHEDULED Begin every 3 week bevacizumab in 3-4 weeks. CBC/CMP/CA 125 with each cycle. OV/CBC/CMP/CA 125 with Cycle 2. OV's every other cycle. Alternate OV's between Dr. Hall and the DIRECTOR OF NURSING's. 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 HPI: The patient is a 74-year-old female with a past medical history as outlined below. CT A/P 03/10/2024: RESULT: Liver: No mass. Biliary: No bile duct dilation. No calcified gallstones. Spleen: No mass. No splenomegaly. Pancreas: Mildly prominent pancreatic duct. No lesions identified. Adrenals: No mass. Kidneys: No renal lesions or hydronephrosis. GI tract: No dilation or wall thickening. Lymph nodes: No abdominal or pelvic lymphadenopathy. Mesentery/Peritoneum: Moderate volume ascites. No loculated collections. Infiltrative change in mesenteric fat and areas of peritoneal thickening with possible mild serosal thickening of scattered small bowel loops. Retroperitoneum: No mass. Vasculature: - Abdominal aorta and iliac arteries: Atherosclerotic calcifications without aneurysm. - Celiac and SMA: Patent without stenosis. - Portal venous system (SMV, splenic vein, portal vein and branches): Patent. - Hepatic veins: Patent. Pelvis: Left pelvic 9.0 x 7.5 x 11.1 cm cystic mass with internal septations and areas of minimal peripheral wall thickening. Contiguous 6.5 x 3.7 cm heterogeneous soft tissue mass centered in the right pelvis (5:112). Moderate volume ascites at the upper pelvis there is a peritoneal thickening. Presacral edema. Bones/Soft Tissues: No acute findings. Lower thorax: Unremarkable. Localizer images: No additional findings. IMPRESSION: Large complex cystic mass in the left pelvis with adjacent soft tissue component extending into the right pelvis concerning for ovarian neoplasm. Ascites and changes of carcinomatosis also present in the abdomen and pelvis. CT Chest 03/10/2024: IMPRESSION: Few small sub-6 mm indeterminate lung nodules. Continued attention on follow-up is suggested given history of pelvic mass. No thoracic lymph node enlargement. Focal thickening along the right anterior pleura and a cluster of subcentimeter right cardiophrenic lymph nodes. Continued attention on follow-up is suggested. 04/29/2024-- Exploratory laparotomy Aborted Debulking Peritoneal biopsies Diverting loop ileostomy ~2L serous ascites evacuated. 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 Ovarian mass in pelvis, unable to palpate rectum/sigmoid. Small bowel with extensive dilation and collapsed large bowel, likely small bowel obstruction near ileocecal valve but unable to mobilize bowel sufficiently due to mesenteric carcinomatosis to visualize the obstruction. Carcinomatosis along diaphragm and in the left upper quadrant but evaluation was limited by small bowel. Tumor involving the root of the small bowel mesentery. Pathology: A. Right abdominal wall peritoneum, excision: High-grade serous carcinoma; see comment. B. Left abdominal wall peritoneum, excision: High-grade serous carcinoma; see comment. Current therapy: 1) Carboplatin/paclitaxel. Underwent EUA with exploratory laparoscopy followed by total abdominal hysterectomy, BSO, supracolic omentectomy, rectosigmoid resection with primary end-to-end colorectal anastomosis and ileostomy takedown with [id number] functional end and reanastomosis on 09/08/2024. Pathology: A. Left fallopian tube and ovary, salpingo-oophorectomy: - Ovary with residual high-grade carcinoma with treatment effect; see comment and synoptic report. - Fallopian tube with adhesions to surface of ovary. B. Uterus with cervix and right fallopian tube and ovary, hysterectomy and right salpingo-oophorectomy: - Cervix: Squamous atrophy. - Endometrium: Inactive endometrium. - Myometrium: Involved by high-grade carcinoma, including in the lower uterine segment; see comment. -Leiomyomas with degenerative changes. - Serosa: Focal involvement by high-grade carcinoma. - Right fallopian tube: Serosal involvement by high-grade carcinoma. - Right ovary: Residual high-grade carcinoma with treatment effect; see comment and synoptic report. C. Omentum, resection: -Rare high-grade carcinoma glands in a background of extensive treatment effect. D. Portion of sigmoid colon, resection: -High-grade carcinoma involving pericolonic soft tissue and muscularis propria, margins negative. E. Portion of small bowel, resection: -Focal mesenteric hemorrhage. F. 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 High-grade carcinoma invades the outer myometrium from the serosal surface. Additionally, it is present jolene section of the lower uterine segment myometrium, where its exact location is difficult to interpret given tangential sectioning of the piece, but it is not present within the endometrium. This casewas reviewed at the departmental gynecologic consensus conference on 09/14/24, and Huber Jackson, Jasvir, Vincent, and [facility] agree. OVARY or FALLOPIAN TUBE or PRIMARY PERITONEUM 8th Edition - Protocol posted: 03/24/2024OVARY OR FALLOPIAN TUBE OR PRIMARY PERITONEUM - All Specimens SPECIMEN Procedure Total hysterectomy and bilateral salpingo-oophorectomy Omentectomy partial colectomy, small bowel ostomy reversal Hysterectomy Type Not specified Specimen Integrity Right Ovary Integrity Capsule intact Specimen Integrity Left Ovary Integrity Capsule intact Uterus Integrity Intact TUMOR Tumor Site Bilateral ovaries Tumor Size Greatest Dimension (Centimeters): 2 cm Histologic Type High-grade serous carcinoma Histologic Grade High-grade Ovarian Surface Involvement Present, right Fallopian Tube Surface Involvement Present, right Other Tissue / Organ Involvement Omentum SIgmoid colon Largest Extrapelvic Peritoneal Focus Microscopic Peritoneal / Ascitic Fluid Involvement Not submitted / unknown Chemotherapy Response Score (CRS) CRS3 (marked response with no or minimal residual cancer) REGIONAL LYMPH NODES Regional Lymph Node Status Not applicable (no regional lymph nodes submitted or found) pTNM CLASSIFICATION (AJCC 8th Edition) Reporting of pT, pN, and (when applicable) pM categories is based on information available to the pathologist at the time the report is issued. As per the AJCC (Chapter 1, 8th Ed.) it is the managingphysician's responsibility to establish the final pathologic stage based upon all pertinent information, including but potentially not limited to this pathology report. Modified Classification y pT Category pT3a pN Category pN not assigned (no nodes submitted or found) FIGO STAGE FIGO Stage IIIA2 Was on rivaroxaban for VTE prophylaxis 3 and half weeks following surgery. She completed that. Still has some blood streaking on her stools. Appetite is recovering. Presents for ongoing oncologic management. Interim history: Has received 2 postoperative cycles of carboplatin and paclitaxel. Tolerating well. No symptoms of sensory neuropathy. Appetite normal. Still occasionally having some rectal bleeding. This seems to occur when she strains a little bit to move her bowels. She has only been using Colace. Sees blood in the toilet water. None when wiping.Has occasional feeling of tenesmus. 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 left sterotactic COLONOSCOPY FLX DX W/COLLJ SPEC WHEN PFRMD 03/09/2012 Colonoscopy COLONOSCOPY FLX DX W/COLLJ SPEC WHEN PFRMD 11/22/2015 Colonoscopy (MAC) ESOPHAGOGASTRODUODENOSCOPY TRANSORAL DIAGNOSTIC 11/22/2015 EGD (MAC) ILEOSTOMY 04/2024 ALLERGIES No Known Allergies Current Outpatient Medications Medication Sig dexAMETHasone (DECADRON) 4 mg tablet Take 5 tablets 12 and 6 hours prior to chemotherapy treatment. ondansetron orally disintegrating (ZOFRAN ODT) 8 mg disintegrating tablet Take 1 tablet by mouth every 8 hours as needed for nausea/vomiting. prochlorperazine (COMPAZINE) 10 mg tablet Take 1 tablet by mouth every 6 hours as needed. acetaminophen (TYLENOL EXTRA STRENGTH) 500 mg tablet Take 1,000 mg by mouth every 6 hours as neededfor pain. nutritional supplement ([employer] STANDARD 1.4) 0.06 G - 1.4 Kcal/mL oral liquid Take 325 mL by mouth three times a day. Cholecalciferol, Vitamin D3, 50 mcg (2,000 unit) cap Take 1 capsule by mouth once daily. (Patient not taking: Reported on 06/08/2024) Loperamide HCl (ANTI-DIARRHEAL) 2 mg tab Take 1 tablet by mouth as needed. No current facility-administered medications for this visit. Social History Tobacco Use Smoking status: Never Smokeless tobacco: Never Vaping Use Vaping status: Never Used Substance Use Topics Alcohol use: Yes Comment: social Drug use: No Family History Problem Relation Age of Onset None Mother None Father Pancreatitis Brother Breast Cancer Maternal Aunt Anesthesia Problems No Family History ROS: Constitutional: No fever. No drenching night sweats. Normal appetite. No unexplained weight loss. No significant fatigue. Neuro: No recent STAHL, vertigo, dizziness or imbalance. HEENT: No recent change in voice, vision or hearing. Resp: No cough, wheeze of hemoptysis. No shortness of breath at rest. CVS: No exertional chest pain, PND or orthopnea. No extremity swelling/edema. No symptoms of claudication. No painful or tender varicose veins. GI: See above. : No dysuria or gross hematuria. Endo: No hot flashes. No polyuria or polydipsia. No heat or cold intolerance. Musculoskeletal: No bone, back, joint and muscular pain. Derm: No current rash. No history of jaundice. No diffuse pruritis. Heme: No unusual bleeding and unexplained bruising. Psych: Normal mood. PHYSICAL EXAM: Vitals: Blood pressure 108/67, pulse 77, temperature 36.2 C (97.2 F), weight 53.8 kg (118 lb 8 oz),SpO2 99%. Well-appearing and in no acute distress. EYES: Sclerae are anicteric bilaterally. RESPIRATORY: Inspiratory breath sounds are of normal intensity in all moyer. CARDIOVASCULAR: Rhythm is regular. ABDOMEN: The abdomen is nondistended. Extremities: No swelling or edema. SKIN: No jaundice. LABS: Genetic testing: [employer] panel negative. 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 [employer]: FOLR1 +75% membrane staining (04/09/2024). [employer] NGS: TP53 32% VAF. -Variant of uncertain significance NTRK2. -TMB low. -HRD genomic scar score low. -MSI stable. 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 -Presented with SBO. Initial ileostomy. -She continues to tolerate carboplatin and paclitaxel very well with no symptoms of sensory neuropathy. -CA125 is remain normal. -I discussed the rationale for and recommended maintenance bevacizumab. -Also discussed trying half a dose of MiraLAX daily to see if that helps keep her bowel movements more regular without straining. Also discussed evaluation for rectal bleeding. -I discussed logistics, potential risks (including but not limited to hypertension, cardiovascular events, proteinuria and bowel perforation and the small potential for as a consequence of severe toxicity/complications of therapy), benefits and alternatives, as well as the personnel involved in the administration of bevacizumab. I answered her questions in detail and she verbalized understanding and agreed with the recommended therapy. Please see the electronic consent document for details of doses and schedule. Plan: -Recheck CBC tomorrow morning to assess ANC prior to proceeding with third and final adjuvant cycleof carboplatin and paclitaxel. -CT chest, abdomen pelvis in a couple weeks. -Referral to Dr. Carmne for evaluation of rectal bleeding. -Monitor CA125. -Plan to start maintenance bevacizumab in about 3 to 4 weeks. -Dipstick UA every 3 weeks to monitor for proteinuria while on therapy. -Imaging as indicated by symptoms and/or rising CA125. Portions of this documentation were copied and pasted from my previous office visit note dated 10/15/2024 in order to provide a cohesive continuity of the history. The note has been reviewed and edited and updated as necessary. Nile Hall DO documented in this encounterFostoria City [facility]02-27-[facility]25 NoteSt[facility] NoteSt[facility] History of Present illness Narrative* Linda Nuñez, SABRINA.PHOTOGRAPHER LITHOGRAPHIC - 11/11/2024 8:32 AM EST Chief Complaint Patient presents with: Established Patient HPI: Sal Bautista is a 74 year old female who presents here today for evaluation for treatment tomorrow. Per Dr. Hall's previous note: CT A/P 03/10/2024: RESULT: Liver: No mass. Biliary: No bile duct dilation. No calcified gallstones. Spleen: No mass. No splenomegaly. Pancreas: Mildly prominent pancreatic duct. No lesions identified. Adrenals: No mass. Kidneys: No renal lesions or hydronephrosis. GI tract: No dilation or wall thickening. Lymph nodes: No abdominal or pelvic lymphadenopathy. Mesentery/Peritoneum: Moderate volume ascites. No loculated collections. Infiltrative change in mesenteric fat and areas of peritoneal thickening with possible mild serosal thickening of scattered small bowel loops. Retroperitoneum: No mass. Vasculature: - Abdominal aorta and iliac arteries: Atherosclerotic calcifications without aneurysm. - Celiac and SMA: Patent without stenosis. - Portal venous system (SMV, splenic vein, portal vein and branches): Patent. - Hepatic veins: Patent. Pelvis: Left pelvic 9.0 x 7.5 x 11.1 cm cystic mass with internal septations and areas of minimal peripheral wall thickening. Contiguous 6.5 x 3.7 cm heterogeneous soft tissue mass centered in the right pelvis (5:112). Moderate volume ascites at the upper pelvis there is a peritoneal thickening. Presacral edema. Bones/Soft Tissues: No acute findings. Lower thorax: Unremarkable. Localizer images: No additional findings. IMPRESSION: Large complex cystic mass in the left pelvis with adjacent soft tissue component extending into the right pelvis concerning for ovarian neoplasm. Ascites and changes of carcinomatosis also present in the abdomen and pelvis. CT Chest 03/10/2024: IMPRESSION: Few small sub-6 mm indeterminate lung nodules. Continued attention on follow-up is suggested given history of pelvic mass. No thoracic lymph node enlargement. Focal thickening along the right anterior pleura and a cluster of subcentimeter right cardiophrenic lymph nodes. Continued attention on follow-up is suggested. 04/29/2024-- Exploratory laparotomy Aborted Debulking Peritoneal biopsies Diverting loop ileostomy ~2L serous ascites evacuated. 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 Ovarian mass in pelvis, unable to palpate rectum/sigmoid. Small bowel with extensive dilation and collapsed large bowel, likely small bowel obstruction near ileocecal valve but unable to mobilize bowel sufficiently due to mesenteric carcinomatosis to visualize the obstruction. Carcinomatosis along diaphragm and in the left upper quadrant but evaluation was limited by small bowel. Tumor involving the root of the small bowel mesentery. Pathology: A. Right abdominal wall peritoneum, excision: High-grade serous carcinoma; see comment. B. Left abdominal wall peritoneum, excision: High-grade serous carcinoma; see comment. Per initial office consultation: Appetite still low. Has early satiety. Abdominal pain much improved. Ostomy working well. Current therapy: 1) Carboplatin/paclitaxel. Underwent EUA with exploratory laparoscopy followed by total abdominal hysterectomy, BSO, supracolic omentectomy, rectosigmoid resection with primary end-to-end colorectal anastomosis and ileostomy takedown with [id number] functional end and reanastomosis on 09/08/2024. Pathology: A. Left fallopian tube and ovary, salpingo-oophorectomy: - Ovary with residual high-grade carcinoma with treatment effect; see comment and synoptic report. - Fallopian tube with adhesions to surface of ovary. B. Uterus with cervix and right fallopian tube and ovary, hysterectomy and right salpingo-oophorectomy: - Cervix: Squamous atrophy. - Endometrium: Inactive endometrium. - Myometrium: Involved by high-grade carcinoma, including in the lower uterine segment; see comment. -Leiomyomas with degenerative changes. - Serosa: Focal involvement by high-grade carcinoma. - Right fallopian tube: Serosal involvement by high-grade carcinoma. - Right ovary: Residual high-grade carcinoma with treatment effect; see comment and synoptic report. C. Omentum, resection: -Rare high-grade carcinoma glands in a background of extensive treatment effect. D. Portion of sigmoid colon, resection: -High-grade carcinoma involving pericolonic soft tissue and muscularis propria, margins negative. E. Portion of small bowel, resection: -Focal mesenteric hemorrhage. F. 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 High-grade carcinoma invades the outer myometrium from the serosal surface. Additionally, it is present jolene section of the lower uterine segment myometrium, where its exact location is difficult to interpret given tangential sectioning of the piece, but it is not present within the endometrium. This casewas reviewed at the departmental gynecologic consensus conference on 09/14/24, and Huber Jackson, Jasvir, Vincent, and [facility] agree. OVARY or FALLOPIAN TUBE or PRIMARY PERITONEUM 8th Edition - Protocol posted: 03/24/2024OVARY OR FALLOPIAN TUBE OR PRIMARY PERITONEUM - All Specimens SPECIMEN Procedure Total hysterectomy and bilateral salpingo-oophorectomy Omentectomy partial colectomy, small bowel ostomy reversal Hysterectomy Type Not specified Specimen Integrity Right Ovary Integrity Capsule intact Specimen Integrity Left Ovary Integrity Capsule intact Uterus Integrity Intact TUMOR Tumor Site Bilateral ovaries Tumor Size Greatest Dimension (Centimeters): 2 cm Histologic Type High-grade serous carcinoma Histologic Grade High-grade Ovarian Surface Involvement Present, right Fallopian Tube Surface Involvement Present, right Other Tissue / Organ Involvement Omentum SIgmoid colon Largest Extrapelvic Peritoneal Focus Microscopic Peritoneal / Ascitic Fluid Involvement Not submitted / unknown Chemotherapy Response Score (CRS) CRS3 (marked response with no or minimal residual cancer) REGIONAL LYMPH NODES Regional Lymph Node Status Not applicable (no regional lymph nodes submitted or found) pTNM CLASSIFICATION (AJCC 8th Edition) Reporting of pT, pN, and (when applicable) pM categories is based on information available to the pathologist at the time the report is issued. As per the AJCC (Chapter 1, 8th Ed.) it is the managingphysician's responsibility to establish the final pathologic stage based upon all pertinent information, including but potentially not limited to this pathology report. Modified Classification y pT Category pT3a pN Category pN not assigned (no nodes submitted or found) FIGO STAGE FIGO Stage IIIA2 Was on rivaroxaban for VTE prophylaxis 3 and half weeks following surgery. She completed that. Still has some blood streaking on her stools. Appetite is recovering. Pt. here today with family member. Appetite:Good. Wt. up 1# Energy level:Good. down for about 4 days after treatment. Denies fevers. Mouth:denies sores Resp:denies cough or sob Cardiac:denies chest pain/palpitations GI:denies abd pain, n/v, moving bowels regularly :denies dysuria/hematuria Extrem:denies pain Neuro:denies symptoms of neuropathy Skin:denies rashes Heme:occ. blood with stool-improved The ROS is otherwise negative. Past medical history, appointments, medications, allergies reviewed. No changes. EXAM: BP 113/72 Pulse 89 Temp 37.1 C (98.7 F) (Temporal) Wt 54.2 kg (119 lb 7.8 oz) SpO2 100% BMI 19.88 kg/m APPEARANCE Well appearing, alert, in no acute distress, well-hydrated HEART RRR with normal S1 and S2, no murmurs LUNG clear to auscultation LYMPH NODES No cervical lymphadenopathy, No supraclavicular lymphadenopathy, and No axillary lymphadenopathy. ABDOMEN bowel sounds normoactive, soft, non-tender EXTREMITIES No edema NEURO Awake, alert and oriented x 3, Normal gait, and No involuntary motions. SKIN Skin color, texture, turgor normal, no suspicious rashes or lesions LABS: Latest Ref Rn 10/15/2024 10/22/2024 11/11/2024 WBC 3.70 - 11.00 k/uL 5.35 7.26 3.81 RBC 3.90 - 5.20 m/uL 3.52 (L) 3.40 (L) 3.24 (L) Hemoglobin 11.5 - 15.5 g/dL 10.9 (L) 10.3 (L) 9.8 (L) Hematocrit 36.0 - 46.0 % 32.9 (L) 31.4 (L) 30.1 (L) MCV 80.0 - 100.0 fL 93.5 92.4 92.9 MCH 26.0 - 34.0 pg 31.0 30.3 30.2 MCHC 30.5 - 36.0 g/dL 33.1 32.8 32.6 RDW-CV 11.5 - 15.0 % 13.5 13.4 13.4 Platelet Count 150 - 400 k/uL 284 254 165 MPV 9.0 - 12.7 fL 9.0 9.2 8.9 (L) Neut% % 62.7 90.5 61.9 Abs Neut (ANC) 1.45 - 7.50 k/uL 3.35 6.57 2.36 Lymph% % 25.2 8.3 26.0 Abs Lymph 1.00 - 4.00 k/uL 1.35 0.60 (L) 0.99 (L) [place]% % 9.7 0.7 10.0 Abs [place] <0.87 k/uL 0.52 0.05 0.38 Eosin% % 1.5 0.0 1.0 Abs Eosin <0.46 k/uL 0.08 <0.03 0.04 Baso% % 0.7 0.1 0.8 Abs Baso <0.11 k/uL 0.04 <0.03 0.03 Immature Gran % % 0.2 0.4 0.3 IMMATURE GRANS (ABS) <0.10 k/uL <0.03 0.03 <0.03 NRBC /100 WBC 0.0 0.0 0.0 Absolute nRBC <0.01 k/uL <0.01 <0.01 <0.01 DTYPE Auto Auto Auto CMP/Mag/CA125: Pending ASSESSMENT/PLAN: 1. High grade ovarian cancer (HCC) - ICD9: 183.0, ICD10: C56.[address] 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 -Presented with SBO. Ileostomy. -Reviewed pathology in detail with her and her . -Discussed plan resume paclitaxel and carboplatin x 3 cycles followed by maintenance bevacizumab. Plan: -Resume paclitaxel and carboplatin next week. -Continued use of PEG filgrastim. -Monitor CA125. -Plan maintenance bevacizumab following chemotherapy. - Tolerated last cycle well overall except for fatigue 3-4 days following treatment. - Reviewed CBC with pt. - CMP/Mag/CA125 pending. - Monitor CA125. - Continue current medications. - Goal 3 cycles taxol/carbo post-op then avastin maint. - Proceed as scheduled for #2 taxol/carbo post-op pending all labs. - Follow up as scheduled. - Pt. aware to call office with any questions/concerns. The patient indicates understanding of these issues and agrees with the plan. All documentation from previous visit of 10/15/24-Dr. Hall was copied and pasted, documentation hasbeen reviewed and edited as necessary for today's visit. Linda Nuñez APRN.PHOTOGRAPHER LITHOGRAPHIC documented [facility] Telephone encounter Note * Telephone Encounter - Yulia Holm RN - 10/20/2024 2:10 PM EST Patient stated she needs a refill on dexamethasone. Refill sent pend/send. Yulia Holm RN [facility]01-15-2025 Miscellaneous Notes* Telephone Encounter - Yulia Holm RN - 10/20/2024 2:10 PM EST Patient stated she needs a refill on dexamethasone. Refill sent pend/send. Yulia Holm RN documented in this encounterF[facility]01-[facility]25 Telephone encounter Note * Telephone Encounter - Sana Morales - 10/15/2024 10:45 AM EST Patient confirmed [facility] Work Phone: [phone] 202-474801-10-2025 Miscellaneous Notes* Telephone Encounter - Sana Morales - 10/15/2024 10:45 AM EST Patient confirmed * Telephone Encounter - Kellie Ferrera - 10/15/2024 9:35 AM EST Lvm for patient to return the call. When patient calls back please advise treatment appointments have been scheduled and verify times are ok Kellie Ferrera * Telephone Encounter - Kellie Ferrera - 10/15/2024 9:10 AM EST Resume every 3 week Carbo/Taxol, for 3 cycles, starting late next week ( or Friday). Patient may be a straight back with a CBC/CMP/MAG that day. OV/CBC/CMP/MAG/CA 125 for cycles 2 and 3. Kellie Ferrera documented in this encounterFost[facility]01-10-2025 Telephone encounter Note * Telephone Encounter - Kellie Ferrera - 10/15/2024 9:35 AM EST Lvm for patient to return the call. When patient calls back please advise treatment appointments have been scheduled and verify times are ok Kellie Ferrera [facility]01-10-2025 Telephone encounter Note* Telephone Encounter - Kellie Ferrera - 10/15/2024 9:10 AM EST Resume every 3 week Carbo/Taxol, for 3 cycles, starting late next week ( or Friday). Patient may be a straight back with a CBC/CMP/MAG that day. OV/CBC/CMP/MAG/CA 125 for cycles 2 and 3. Kellie Ferrera [facility]01-10-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 HPI: The patient is a 74-year-old female with a past medical history as outlined below. CT A/P 03/10/2024: RESULT: Liver: No mass. Biliary: No bile duct dilation. No calcified gallstones. Spleen: No mass. No splenomegaly. Pancreas: Mildly prominent pancreatic duct. No lesions identified. Adrenals: No mass. Kidneys: No renal lesions or hydronephrosis. GI tract: No dilation or wall thickening. Lymph nodes: No abdominal or pelvic lymphadenopathy. Mesentery/Peritoneum: Moderate volume ascites. No loculated collections. Infiltrative change in mesenteric fat and areas of peritoneal thickening with possible mild serosal thickening of scattered small bowel loops. Retroperitoneum: No mass. Vasculature: - Abdominal aorta and iliac arteries: Atherosclerotic calcifications without aneurysm. - Celiac and SMA: Patent without stenosis. - Portal venous system (SMV, splenic vein, portal vein and branches): Patent. - Hepatic veins: Patent. Pelvis: Left pelvic 9.0 x 7.5 x 11.1 cm cystic mass with internal septations and areas of minimal peripheral wall thickening. Contiguous 6.5 x 3.7 cm heterogeneous soft tissue mass centered in the right pelvis (5:112). Moderate volume ascites at the upper pelvis there is a peritoneal thickening. Presacral edema. Bones/Soft Tissues: No acute findings. Lower thorax: Unremarkable. Localizer images: No additional findings. IMPRESSION: Large complex cystic mass in the left pelvis with adjacent soft tissue component extending into the right pelvis concerning for ovarian neoplasm. Ascites and changes of carcinomatosis also present in the abdomen and pelvis. CT Chest 03/10/2024: IMPRESSION: Few small sub-6 mm indeterminate lung nodules. Continued attention on follow-up is suggested given history of pelvic mass. No thoracic lymph node enlargement. Focal thickening along the right anterior pleura and a cluster of subcentimeter right cardiophrenic lymph nodes. Continued attention on follow-up is suggested. 04/29/2024-- Exploratory laparotomy Aborted Debulking Peritoneal biopsies Diverting loop ileostomy ~2L serous ascites evacuated. 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 Ovarian mass in pelvis, unable to palpate rectum/sigmoid. Small bowel with extensive dilation and collapsed large bowel, likely small bowel obstruction near ileocecal valve but unable to mobilize bowel sufficiently due to mesenteric carcinomatosis to visualize the obstruction. Carcinomatosis along diaphragm and in the left upper quadrant but evaluation was limited by small bowel. Tumor involving the root of the small bowel mesentery. Pathology: A. Right abdominal wall peritoneum, excision: High-grade serous carcinoma; see comment. B. Left abdominal wall peritoneum, excision: High-grade serous carcinoma; see comment. Per initial office consultation: Appetite still low. Has early satiety. Abdominal pain much improved. Ostomy working well. Current therapy: 1) Carboplatin/paclitaxel. Presents for ongoing oncologic management. Interim history: Underwent EUA with exploratory laparoscopy followed by total abdominal hysterectomy, BSO, supracolic omentectomy, rectosigmoid resection with primary end-to-end colorectal anastomosis and ileostomy takedown with [id number] functional end and reanastomosis on 09/08/2024. Pathology: A. Left fallopian tube and ovary, salpingo-oophorectomy: - Ovary with residual high-grade carcinoma with treatment effect; see comment and synoptic report. - Fallopian tube with adhesions to surface of ovary. B. Uterus with cervix and right fallopian tube and ovary, hysterectomy and right salpingo-oophorectomy: - Cervix: Squamous atrophy. - Endometrium: Inactive endometrium. - Myometrium: Involved by high-grade carcinoma, including in the lower uterine segment; see comment. -Leiomyomas with degenerative changes. - Serosa: Focal involvement by high-grade carcinoma. - Right fallopian tube: Serosal involvement by high-grade carcinoma. - Right ovary: Residual high-grade carcinoma with treatment effect; see comment and synoptic report. C. Omentum, resection: -Rare high-grade carcinoma glands in a background of extensive treatment effect. D. Portion of sigmoid colon, resection: -High-grade carcinoma involving pericolonic soft tissue and muscularis propria, margins negative. E. Portion of small bowel, resection: -Focal mesenteric hemorrhage. F. 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 High-grade carcinoma invades the outer myometrium from the serosal surface. Additionally, it is present jolene section of the lower uterine segment myometrium, where its exact location is difficult to interpret given tangential sectioning of the piece, but it is not present within the endometrium. This casewas reviewed at the departmental gynecologic consensus conference on 09/14/24, and Huber Jackson, Jasvir, Vincent, and [facility] agree. OVARY or FALLOPIAN TUBE or PRIMARY PERITONEUM 8th Edition - Protocol posted: 03/24/2024OVARY OR FALLOPIAN TUBE OR PRIMARY PERITONEUM - All Specimens SPECIMEN Procedure Total hysterectomy and bilateral salpingo-oophorectomy Omentectomy partial colectomy, small bowel ostomy reversal Hysterectomy Type Not specified Specimen Integrity Right Ovary Integrity Capsule intact Specimen Integrity Left Ovary Integrity Capsule intact Uterus Integrity Intact TUMOR Tumor Site Bilateral ovaries Tumor Size Greatest Dimension (Centimeters): 2 cm Histologic Type High-grade serous carcinoma Histologic Grade High-grade Ovarian Surface Involvement Present, right Fallopian Tube Surface Involvement Present, right Other Tissue / Organ Involvement Omentum SIgmoid colon Largest Extrapelvic Peritoneal Focus Microscopic Peritoneal / Ascitic Fluid Involvement Not submitted / unknown Chemotherapy Response Score (CRS) CRS3 (marked response with no or minimal residual cancer) REGIONAL LYMPH NODES Regional Lymph Node Status Not applicable (no regional lymph nodes submitted or found) pTNM CLASSIFICATION (AJCC 8th Edition) Reporting of pT, pN, and (when applicable) pM categories is based on information available to the pathologist at the time the report is issued. As per the AJCC (Chapter 1, 8th Ed.) it is the managingphysician's responsibility to establish the final pathologic stage based upon all pertinent information, including but potentially not limited to this pathology report. Modified Classification y pT Category pT3a pN Category pN not assigned (no nodes submitted or found) FIGO STAGE FIGO Stage IIIA2 Was on rivaroxaban for VTE prophylaxis 3 and half weeks following surgery. She completed that. Still has some blood streaking on her stools. Appetite is recovering. 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 left sterotactic COLONOSCOPY FLX DX W/COLLJ SPEC WHEN PFRMD 03/09/2012 Colonoscopy COLONOSCOPY FLX DX W/COLLJ SPEC WHEN PFRMD 11/22/2015 Colonoscopy (MAC) ESOPHAGOGASTRODUODENOSCOPY TRANSORAL DIAGNOSTIC 11/22/2015 EGD (MAC) ILEOSTOMY 04/2024 ALLERGIES No Known Allergies Current Outpatient Medications Medication Sig dexAMETHasone (DECADRON) 4 mg tablet Take 5 tablets 12 and 6 hours prior to chemotherapy treatment. ondansetron orally disintegrating (ZOFRAN ODT) 8 mg disintegrating tablet Take 1 tablet by mouth every 8 hours as needed for nausea/vomiting. prochlorperazine (COMPAZINE) 10 mg tablet Take 1 tablet by mouth every 6 hours as needed. acetaminophen (TYLENOL EXTRA STRENGTH) 500 mg tablet Take 1,000 mg by mouth every 6 hours as neededfor pain. nutritional supplement ([employer] STANDARD 1.4) 0.06 G - 1.4 Kcal/mL oral liquid Take 325 mL by mouth three times a day. Loperamide HCl (ANTI-DIARRHEAL) 2 mg tab Take 1 tablet by mouth as needed. rivaroxaban (XARELTO) 10 mg tablet Take 1 tablet by mouth once daily. (Patient not taking: Reportedon 10/15/2024) metroNIDAZOLE (FLAGYL) 500 mg tablet Take 4 tablets by mouth as directed. Take 4 tablets at 7pm and4 tablets at 11pm the night before surgery (Patient not taking: Reported on 09/17/2024) neomycin 500 mg tablet Take 4 tablets by mouth as directed. Take 4 tablets at 7pm and 4 tablets at 11pm the night before surgery (Patient not taking: Reported on 09/17/2024) Bisacodyl (DULCOLAX) 5 mg tab Take 1 tablet by mouth as directed. Take 2 tablets at 3pm the day before surgery (Patient not taking: Reported on 09/17/2024) polyethylene glycol 3350 (MIRALAX) 17 gram/dose powder Purchase one 238 gram bottle of Miralax Use as directed (Patient not taking: Reported on 09/17/2024) iv contrast (will be provided with radiology test) CT Chest W -Inject, intravenously, once for 1 dose.No IV access, insert saline lock prior to the beginning of sedation, infusion, injection of imaging exam. Discontinue saline lock post exam. If Pt. has a central line or IVAD, may access for administration according to line specific nursing protocol. Once exam is complete flush line and de-accessaccording to line specific nursing protocol in the CT contrast administration guidelines link. (Patient not taking: Reported on 07/16/2024) iv contrast (will be provided with radiology test) CT ABD/PEL -Inject, intravenously, once for 1 dose.No IV access, insert saline lock prior to the beginning of sedation, infusion, injection of imaging exam. Discontinue saline lock post exam. If Pt. has a central line or IVAD, may access for administration according to line specific nursing protocol. Once exam is complete flush line and de-accessaccording to line specific nursing protocol in the CT contrast administration guidelines link. (Patient not taking: Reported on 07/16/2024) enteric contrast (will be provided with radiology test) For CT ABD/PEL W IVCON Routine order Administer, As Directed One Time Only, via Oral, Rectal, both Oral and Rectal, Enteric Tube, Stoma or Indwelling Catheter, Enteric Contrast as designated per enteric contrast guidelines (Patient not taking:Reported on 07/16/2024) dicyclomine (BENTYL) 10 mg capsule Take 1 or 2 before meals, as needed. (Patient taking differently: Take 10 mg by mouth three times a day as needed (abdominal cramping). Take 1 or 2 before meals, asneeded.) alendronate (FOSAMAX) 70 mg tablet Take 1 tablet by mouth one time a week. Take with a full glass of water, on an empty stomach; do NOT lie down for 30minutes. (Patient not taking: Reported on 06/08/2024) Cholecalciferol, Vitamin D3, 50 mcg (2,000 unit) cap Take 1 capsule by mouth once daily. (Patient not taking: Reported on 06/08/2024) No current facility-administered medications for this visit. Social History Tobacco Use Smoking status: Never Smokeless tobacco: Never Vaping Use Vaping status: Never Used Substance Use Topics Alcohol use: Yes Comment: social Drug use: No Family History Problem Relation Age of Onset None Mother None Father Pancreatitis Brother Breast Cancer Maternal Aunt Anesthesia Problems No Family History ROS: Constitutional: No fever. No drenching night sweats. Normal appetite. No unexplained weight loss. No significant fatigue. Neuro: No recent STAHL, vertigo, dizziness or imbalance. HEENT: No recent change in voice, vision or hearing. Resp: No cough, wheeze of hemoptysis. No shortness of breath at rest. CVS: No exertional chest pain, PND or orthopnea. No extremity swelling/edema. No symptoms of claudication. No painful or tender varicose veins. GI: See above. : No dysuria or gross hematuria. Endo: No hot flashes. No polyuria or polydipsia. No heat or cold intolerance. Musculoskeletal: No bone, back, joint and muscular pain. Derm: No current rash. No history of jaundice. No diffuse pruritis. Heme: No unusual bleeding and unexplained bruising. Psych: Normal mood. PHYSICAL EXAM: Vitals: Blood pressure 104/64, pulse 76, temperature 36.6 C (97.9 F), temperature source Temporal, weight 53.8 kg (118 lb 8 oz), SpO2 100%. Well-appearing and in no acute distress. EYES: Sclerae are anicteric bilaterally. RESPIRATORY: Inspiratory breath sounds are of normal intensity in all moyer. CARDIOVASCULAR: Rhythm is regular. ABDOMEN: The abdomen is nondistended. Extremities: No swelling or edema. SKIN: No jaundice. LABS: Genetic testing: [employer] panel negative. 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 [employer]: FOLR1 +75% membrane staining (04/09/2024). [employer] NGS: TP53 32% VAF. -Variant of uncertain significance NTRK2. -TMB low. -HRD genomic scar score low. -MSI stable. 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 -Presented with SBO. Ileostomy. -Reviewed pathology in detail with her and her . -Discussed plan resume paclitaxel and carboplatin x 3 cycles followed by maintenance bevacizumab. Plan: -Resume paclitaxel and carboplatin next week. -Continued use of PEG filgrastim. -Monitor CA125. -Plan maintenance bevacizumab following chemotherapy. Portions of this documentation were copied and pasted from my previous office visit note dated 08/11/2024 in order to provide a cohesive continuity of the history. The note has been reviewed and edited and updated as necessary. Nile Hall DO [facility] Telephone encounter Note * Telephone Encounter - Kellie Ferrera - 10/08/2024 10:46 AM EST Spoke with patient and advised of new appointment time Kellie Ferrera [facility]01-[facility] Miscellaneous Notes* Telephone Encounter - Kellie Ferrera - 10/08/2024 10:46 AM EST Spoke with patient and advised of new appointment time Kellie Ferrera * Telephone Encounter - Liz Dubose LPN - 10/08/2024 9:59 AM EST Spoke with pt., we are going to reschedule her appt. With DR. Hall instead of Kirti PSS please cancel appt. With Kirti and Put with Dr. Hall 10/15@ 8:40 am . PSS please reach out topt. With new appt. Date and time Dr. Hall will discuss moving forward with treatment at that appt. Pt. Voiced understanding Liz Dubose LPN * Telephone Encounter - Tali Ervin - 10/08/2024 9:31 AM EST Patient called back to schedule. She is currently scheduled, she is also asking about scheduling her infusions. Please review and advise. Tali Ervin October 08, 2024 9:31 AM * Telephone Encounter - Kim Pandey - 10/07/2024 4:41 PM EST Called patient and left a vm to return our call * Telephone Encounter - Corrina Jaime LPN - 10/07/2024 4:18 PM EST PSS- please contact patient to schedule labs and OV in 2 weeks- she will need a CBC/CMP/CA 125. Corrina Jaime LPN documented in [facility] Telephone encounter Note * Telephone Encounter - Liz Dubose LPN - 10/08/2024 9:59 AM EST Spoke with pt., we are going to reschedule her appt. With DR. Hall instead of Kirti PSS please cancel appt. With Kirti and Put with Dr. Hall 10/15@ 8:40 am . PSS please reach out topt. With new appt. Date and time Dr. Hall will discuss moving forward with treatment at that appt. Pt. Voiced understanding Liz Dubose LPN [facility]01-[facility] Telephone encounter Note* Telephone Encounter - Tali Ervin - 10/08/2024 9:31 AM EST Patient called back to schedule. She is currently scheduled, she is also asking about scheduling her infusions. Please review and advise. Tali Ervin October 08, 2024 9:31 AM [facility]01-[facility] Telephone encounter Note* Telephone Encounter - Kim Pandey - 10/07/2024 4:41 PM EST Called patient and left a vm to return our call [facility]01[facility] Telephone encounter Note* Telephone Encounter - Corrina Jaime LPN - 10/07/2024 4:18 PM EST PSS- please contact patient to schedule labs and OV in 2 weeks- she will need a CBC/CMP/CA 125. Corrina Jaime LPN [facility]01-02-[facility] History of Present illness Narrative* Fredis Buckner MD - 10/07/2024 11:45 AM EST Images from the original note were not included. Gynecologic Oncology [facility] Postop Re: Sal Bautista [facility]#: [id number] Date of Service: 10/07/2024 Dr. 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 Briefly, she is a 74 year old female, 2, para 2 with a past medical history of IBSand osteoporosis who was referred for the evaluation of pelvic mass. 02/24/2024 patient presented to PCP with c/o abdominal distention and bloating. History of IBS causing both diarrhea and constipation. TREATMENT HISTORY: 03/10/2024 CT Abd/Pel IMPRESSION: Large complex cystic mass in the left pelvis with adjacent soft tissue component extending into the right pelvis concerning for ovarian neoplasm. Ascites and changes of carcinomatosis also present in the abdomen and pelvis. 03/15/2024 Consult: 73yo female presents for management of pelvic mass, peritoneal thickening, and moderate volume ascites. No tumor markers were drawn. Patient with history of IBS. Her last colonoscopy from November 2015 was normal. She has been losing weight since December this year. Reports difficulty with eating which is not unusual for IBS. Family history of breast cancer (maternal aunt). I reviewed her CT scan from 03/10/2024 showing a large pelvic mass. There were irregularities seen along the diaphragm reflecting fluid and solid masses. There were ascites and findings suggesting carcinomatosis. I discussed my suspicion for malignancy and we will obtain tumor markers (CA125, CA19-9,and CEA) for further work up. We typically treat gynecologic cancers with either primary surgery and adjuvant chemotherapy or neoadjuvant chemotherapy and interval debulking surgery. Patient is 73 year old but she has good performance status and has no significant medical problems. I think she willbe a good candidate for primary debulking surgery if her prealbumin is wnl. If patient can be optimally cytoreduced, her survival could be improved. We will obtain prealbumin to evaluate her nutritional status and a chest CT to rule out intrathoracic disease. If her prealbumin is acceptable, will plan for primary debulking. Discussed the duration of hospital stay of 3 days after surgery with no bowel resection and approximately 7 days with bowel resection. If her CA125 is normal and her other tumor markers are elevated, may plan for IR biopsy to determine primary. If her prealbumin is very low, this could increase operative morbidity from primary surgery so we will pursue neoadjuvant chemotherapy while bringing her nutritional status up to get ready for interval debulking. I explained that chemotherapy can help reduce the volume of her ascites at which point she will feel less distendedand be able to eat more. Consents obtained today for both primary surgery and neoadjuvant chemotherapy and we will decide which approach based on her lab and imaging results. Latest Ref Rng 03/15/2024 Prealbumin 17 - 36 mg/dL 12 (L) Latest Ref Rng 03/15/2024 CEA <=2.9 ng/mL 0.6 CA 125 <39 U/mL 305 (H) CA19-9 <36.0 U/mL 11.0 03/16/2024 CT CHEST WO IVCON IMPRESSION: Few small sub-6 mm indeterminate lung nodules. Continued attention on follow-up is suggested given history of pelvic mass. No thoracic lymph node enlargement. Focal thickening along the right anterior pleura and a cluster of subcentimeter right cardiophreniclymph nodes. Continued attention on follow-up is suggested. 03/16/2024 Telephone encounter with Aga Meredith APRN.PHOTOGRAPHER LITHOGRAPHIC Called and spoke with patient~ per Dr. Buckner, he would like to cancel surgery tomorrow and admit herfor paracentesis and placement of feeding tube for poor nutritional status. Called admitting to request bad and advised patient that they would call her when bed becomes available. Updated inpatient team. Updated tugboat mate that her case needs to be cancelled tomorrow. 03/17 - 03/24/[address] [facility] admission - Paracentesis and nutritional optimization PROCEDURES DURING HOSPITALIZATION: Corpak placement, EGD-guided Corpak placement HOSPITAL COURSE: Sal Bautista is a 73 year old female with a hx of IBS, osteopenia, and large pelvic mass who presented for nutritional optimization and paracentesis prior to surgery. She underwent a paracentesis on 03/17, with cytology notable for malignant cells consistent with high-nuclear grade adenocarcinoma. She underwent a Corpak placement for nutritional optimization, however it was noted to be folded back on itself on multiple KUBs. She then underwent an EGD-guided Corpak placement, which subsequently became clogged. Treatment with clog zapper and viokace was not effective and therefore decision was made to remove the corpak and discharge home without outpatient follow up. 03/17/2024 Paracentesis FINAL DIAGNOSIS A - Ascites Fluid, Sterile Fluid/Body Fluid Positive for malignant cells. High-nuclear grade adenocarcinoma. See comment. Diagnosis Comment Immunohistochemical stains show that the malignant cells are positive for Cambridge-8, Claudin-4 and negative for D2-40, ER. WT-1 shows rare, weak staining. P53 shows weak to moderate nuclear staining. Thestaining pattern of the p53 is suboptimal and should be repeated in the surgical specimen. The immunohistochemical staining pattern is consistent with a mullerian origin. Selected slides were reviewed in consultation with Dr. Munoz, who concurs. 03/29/2024 Visit: Patient presents with her for hospital follow-up visit. She was recently hospitalized for nutritional optimization and paracentesis prior to surgery. Underwent Corpak placement however it was noted to be folded back on itself on multiple KUBs. She then underwent an EGD-guided Corpak placement, which subsequently became clogged. Treatment with clog zapper and viokace was not effective and therefore decision was made to remove the corpak and discharge home with outpatientfollow up. I reviewed the cytologic study of her paracentesis. The immunohistochemical staining pattern is consistent with a Mullerian origin of high-nuclear grade adenocarcinoma although p53 staining pattern was inconclusive which could be due to insufficient cells and should be repeated in the surgical specimen. Reviewed low grade serous carcinoma (5% of all cases), high grade serous carcinoma (remaining 95%), different oncogenic pathways and only 4% of patients with low grade serous carcinoma achieved complete response when treated with chemotherapy. In this patient population, primary cytoreductive surgery is typically planned. The patient has good performance status for her age and no significant medical problems. If she canbe optimally cytoreduced, her survival could be improved (average OS ~ high 70 months and PFS ~ high 20 months). We will repeat prealbumin today to reassess her nutritional status. She has been drinking 2.5 protein boost per day. Explained the importance of nutritional optimization prior to surgeryto lower operative morbidity and be able to achieve optimal recovery. If her repeat prealbumin is acceptable, will plan for primary debulking. Otherwise, may plan for TPN for one week to bring up hernutrition and plan for surgery vs initiation of neoadjuvant chemotherapy to shrink her tumor volumewhile bringing her nutritional status up to get ready for interval debulking. Patient and expressed understanding and agreement with the plan. 04/09 - 04/13/2024 [facility] [place] admission OPERATIONS DURING HOSPITALIZATION: XL, aborted debulk, diverting loop ileostomy PROCEDURES DURING HOSPITALIZATION: No procedures performed HOSPITAL COURSE: Sal Bautista is a 73 yo female who was admitted with complex L pelvic mass. On 04/09 she underwent exploratory laparotomy and diverting loop ileostomy. Debulking of tumor was aborted due to significant carcinomatosis. SBO was visualized near ileocecal valve intraoperatively. Severalperitoneal biopsies were obtained. On POD#1, she passed her void trial and had adequate urine output. She had good ostomy output, and her diet was able to be advanced to to GIS. Her pain was well controlled with Tylenol and PO oxycodone 5mg PRN. On 7, she complained of LLE swelling and had a DVT US which was negative. On POD#4 shewas tolerating a diet, ambulating, meeting all post operative milestones, and was able to be discharged home. 04/09/2024 Exploratory laparotomy, drainage of ascites, peritoneal biopsies, and diverting loop ileostomy Residual: >2.0 cm Peritoneal PREOPERATIVE DIAGNOSIS: High-grade carcinomatosis. POSTOPERATIVE DIAGNOSIS: High-grade carcinomatosis, pending final pathology, partial small bowel obstruction. FINDINGS: ~2L serous ascites evacuated. 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 Ovarian mass in pelvis, unable to palpate rectum/sigmoid. Small bowel with extensive dilation and collapsed large bowel, likely small bowel obstruction near ileocecal valve but unable to mobilize bowel sufficiently due to mesenteric carcinomatosis to visualize the obstruction. Carcinomatosis along diaphragm and in the left upper quadrant but evaluation was limited by small bowel. Tumor involving the root of the small bowel mesentery. FINAL DIAGNOSIS A. Right abdominal wall peritoneum, excision: High-grade serous carcinoma; see comment. B. Left abdominal wall peritoneum, excision: High-grade serous carcinoma; see comment. Diagnosis Comment Immunohistochemical stains were performed on block A1 and the tumor cells are positive for CK7, PAX8, ER, WT1, p16 and show aberrant (strong diffuse) staining for p53. A CK20 is negative. 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 04/19/2024 Visit: Normal post operative course. Surgical incisions are intact, healing well, and show no signs of infection. Surgical dave removed, steri- strips applied. Postop restrictions and wound care reviewed. Patient reports since discharge, she is able to eat better. She didn't bring her ostomy output log with her today but states that it has been <1200 cc. She is still taking oxycodone and tylenol once a day for her incisional pain. She is cleared to resume taking fosamax. Reviewed operative findings with small bowel with extensive dilation and collapsed large bowel, likely small bowel obstruction near ileocecal valve but unable to mobilize bowel sufficiently due to mesenteric carcinomatosis to visualize the obstruction. Therefore, primary debulking was aborted and DLI was performed. The result of p53 staining from her paracentesis was inconclusive but it was rechecked on her peritoneal biopsies and turned out to be aberrant. This confirms the diagnosis of high-grade serous carcinoma. Discussed a plan to initiate neoadjuvant chemotherapy and monitor her disease response with interval [id number] and CT scans. We will plan for interval debulking if she responds favorably to treatment. Patient was initially hesitant to consider chemotherapy as she has seen many ovarian cancer patients going through chemotherapy and start deconditioning. Discussed that every patient responds differently to therapy and there are medications that help control her symptoms. We could plan to have patient undergo chemotherapy in [place] with Dr Hall and follow up for scan review after 3 cycles to reassess her disease status for interval debulking surgery and ileostomy reversal. After our discussion,patient amenable to this plan. We will obtain genetic testing. Patient reports her brother had pancreatic cancer. I explained that20% of the patients with high-grade serous ovarian carcinoma were found to carry germline BRCA mutations and having the mutations indicating favorable response to chemotherapy. Current Treatment with Dr. Nile Hall in [place] Carboplatin AUC 6 and Taxol 135 mg/m2 for 6 cycles from 04/28/2024 - 08/12/2024 CA 125 Latest Ref Rng <39 U/mL 04/22/2024 320 05/18/2024 177 06/08/2024 66 06/30/2024 183 07/21/2024 55 08/11/2024 20 09/07/2024 13 04/29/2024 FOLR1 positive 75% staining 05/07/2024 [facility] report 06/23/2024 [facility] was negative for a pathogenic variant. 06/23/2024 CT CHEST W IVCON IMPRESSION: 1. Stable subcentimeter pulmonary nodules. No new nodules are visualized. 2. No new thoracic lymphadenopathy. 06/23/2024 CT ABD/PEL W IVCON IMPRESSION: 1. Cystic mass with internal septations in the left pelvis has not appreciably changed in size compared to the prior study. There is a right adnexal solid lesion which appears separate from the cystic mass on the current study. 2. Left upper quadrant peritoneal thickening consistent with patient's history of peritoneal carcinomatosis. No ascites. 06/30/[address] 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 -Presented with SBO. Ileostomy. -Tolerating chemotherapy very well overall. -Reviewed CT images with her and her today. Although no significant change in size of cystic tumor left pelvis, no recurrence of ascites and CA125 trending lower very nicely. She has been able to eat better and has been gaining weight. -History of sever protein malnutrition. Plan: -Okay for cycle #4 this week pending neutrophil recovery. -Check CBC and pre-albumin level tomorrow. -Can consider Neulasta Friday. -See if can move up genetic counseling appointment. -Monitor CA125. -Has appointment with Dr. Buckner. Prealbumin Latest Ref Rng 17 - 36 mg/dL 07/01/2024 34 07/16/2024 Visit: The patient was explored but was unresectable and has now undergone 4 cycles of neoadjuvant chemotherapy. Her CA125 decreased from 320 prior to initiation of her chemotherapy to 66 on 06/08/2020 after 3 courses of therapy but is now starting to elevate being 183 on 06/30/2024. I reviewed her CT scan that demonstrated that the ascites has resolved but her mass is actually increased in size. Unfortunately this appears to be [place] refractory disease. She is she is interested in what her life expectancy would be if she received no further therapy. I informed her that typically we have lumped all the patients who occur within 6 months of chemotherapy as 1 subgroup with a median survival of approximately 10 months. But the patients who recur on therapy and are [place] refractory clearly have a worse prognosis. We currently have 2 studies for [place] refractory disease. Onestudy [facility] [place] looking at a new viral agent with [place] based chemotherapy versus [place] based chemotherapy. This study had promising results and a phase 2 and [place] resistant and refractory patients with an overall response rate of 54%. The current studies comparing the viral [place] basedchemotherapy versus [place] based chemotherapy in a phase 3 trial for FDA approval. She would be acandidate for this trial but this is a randomized trial where the patient may only receive standardof care which would be a [place] based chemotherapy with Avastin. This may be an acceptable regimen but she would [facility]. A second study involves harvesting her T cells multiplying them and read if using them an adaptive immunotherapy approach. This trial requires certain HLA type and this was drawn for the patient today after informed consent and if her HLA type is eligible the neck step is to study her tumor for a biomarker MAGE-4. At the time of her ileostomy, asection of tumor was obtained for such testing. I have asked her to get another CA125 so we can seeif this value is continuing to increase. We will plan to have her presented tumor board in 10 days. 07/27/2024 Tumor Board - Recommend continuing Carbo/Taxol for 1 additional cycles then repeat imaging - Consider switching to Carbo/Maver[place] or Carbo/Doxil 08/25/2024 CT CHEST W IVCON IMPRESSION: Stable lung nodules or nodular densities. No new nodules identified. No thoracic lymphadenopathy 08/25/2024 CT ABD/PEL W IVCON IMPRESSION: Decreased left adnexal cystic mass in right adnexal solid mass. Stable left upper quadrant peritoneal thickening. 09/07/2024 Visit: - s/p C6 carbo/taxol on 08/12/2024 - CA125 has normalized from a pretreatment value of 320 - 08/25/2024 CT scan reviewed with stable lung nodules, shrinking left adnexal mass, and stable left upper quadrant peritoneal thickening. - Discussed favorable response to neoadjuvant chemotherapy and a plan for interval debulking and possible colostomy takedown. Patient agreed to proceed and an informed consent was signed. - Consent signed today - Open surgery, remove the uterus, cervix, tubes, ovaries possible removal of lymph nodes, omentum, biopsies, tumor, possible bowel resection, possible takedown of ostomy, possible blood product transfusion 09/08/2024 Exploratory laparotomy, extensive enterolysis, bilateral ureterolysis, total abdominal hysterectomy and bilateral salpingo-oophorectomy, resection of sigmoid colon with coloanal anastomosis, dissection of contracted omentum off the transverse colon and stomach with resection of the omentum and then takedown of the ileostomy Residual: 0 (NGR) PREOPERATIVE DIAGNOSIS: Ovarian cancer, status post neoadjuvant chemotherapy, status post divertingloop ileostomy. POSTOPERATIVE DIAGNOSIS: Ovarian cancer, status post neoadjuvant chemotherapy, status post diverting loop ileostomy. FINDINGS: Small bowel internal hernia with numerous thin adhesions. Right ovarian mass partially retroperitoneal and densely adherent to sidewall, rectum and uterus. Bladder densely adherent to anterior uterus. Rectum adherent from cervix to fundus posteriorly. Omentum densely contraction with no infracolic omentum present. Gallbladder adherent to omentum and transverse colon. Small ~2 cm nodule within omentum. Evidence of prior caricnomatosis but other significant lesions. No gross disease remaining. FINAL DIAGNOSIS A. Left fallopian tube and ovary, salpingo-oophorectomy: - Ovary with residual high-grade carcinoma with treatment effect; see comment and synoptic report. - Fallopian tube with adhesions to surface of ovary. B. Uterus with cervix and right fallopian tube and ovary, hysterectomy and right salpingo-oophorectomy: - Cervix: Squamous atrophy. - Endometrium: Inactive endometrium. - Myometrium: Involved by high-grade carcinoma, including in the lower uterine segment; see comment. -Leiomyomas with degenerative changes. - Serosa: Focal involvement by high-grade carcinoma. - Right fallopian tube: Serosal involvement by high-grade carcinoma. - Right ovary: Residual high-grade carcinoma with treatment effect; see comment and synoptic report. C. Omentum, resection: -Rare high-grade carcinoma glands in a background of extensive treatment effect. D. Portion of sigmoid colon, resection: -High-grade carcinoma involving pericolonic soft tissue and muscularis propria, margins negative. E. Portion of small bowel, resection: -Focal mesenteric hemorrhage. F. 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 High-grade carcinoma invades the outer myometrium from the serosal surface. Additionally, it is present jolene section of the lower uterine segment myometrium, where its exact location is difficult to interpret given tangential sectioning of the piece, but it is not present within the endometrium. This casewas reviewed at the departmental gynecologic consensus conference on 09/14/24, and DrsHuber Durbin, Jasvir, Vincent, and [facility] agree. Dr. Med Burch (GI and Hepatobiliary Pathology) has reviewed part F of this case and agrees. Block for additional Biomarkers/Molecular studies B10 Synoptic Report OVARY or FALLOPIAN TUBE or PRIMARY PERITONEUM 8th Edition - Protocol posted: 03/24/2024 OVARY OR FALLOPIAN TUBE OR PRIMARY PERITONEUM - All Specimens SPECIMEN Procedure Total hysterectomy and bilateral salpingo-oophorectomy Omentectomy partial colectomy, small bowel ostomy reversal Hysterectomy Type Not specified Specimen Integrity Right Ovary Integrity Capsule intact Specimen Integrity Left Ovary Integrity Capsule intact Uterus Integrity Intact TUMOR Tumor Site Bilateral ovaries Tumor Size Greatest Dimension (Centimeters): 2 cm Histologic Type High-grade serous carcinoma Histologic Grade High-grade Ovarian Surface Involvement Present, right Fallopian Tube Surface Involvement Present, right Other Tissue / Organ Involvement Omentum SIgmoid colon Largest Extrapelvic Peritoneal Focus Microscopic Peritoneal / Ascitic Fluid Involvement Not submitted / unknown Chemotherapy Response Score (CRS) CRS3 (marked response with no or minimal residual cancer) REGIONAL LYMPH NODES Regional Lymph Node Status Not applicable (no regional lymph nodes submitted or found) pTNM CLASSIFICATION (AJCC 8th Edition) Reporting of pT, pN, and (when applicable) pM categories is based on information available to the pathologist at the time the report is issued. As per the AJCC (Chapter 1, 8th Ed.) it is the managingphysician's responsibility to establish the final pathologic stage based upon all pertinent information, including but potentially not limited to this pathology report. Modified Classification y pT Category pT3a pN Category pN not assigned (no nodes submitted or found) FIGO STAGE FIGO Stage IIIA2 SPECIAL STUDIES p53 Immunohistochemistry Abnormal (mutated) expression Overexpression (strong, diffuse nuclear expression) 09/14/2024 Virtual visit with Rosi Martinez APRN.PHOTOGRAPHER LITHOGRAPHIC ASSESSMENT: 74 yo s/p 6 cycles carbo taxol and debulking surgery-09/08/2024-Interval debulk no residual disease, Ex lap, HANY BSO, Supracolic Omentectomy, RSR with primary E2E anastomosis, ileostomy takedown with S2S E2E reanastomosis-normal postoperative course PLAN: 1. Discussed results of pathology and implications with patient. Path pending. 2. Postop restrictions and wound care reviewed. 3. Will arrange for staple removal and plan of care/chemo at [facility] post[facility]. HEALTH MAINTENANCE: Last pap smear: 02/06/2017 - Negative Last mammogram: 07/07/2023 - Negative Last colonoscopy: 11/22/2015 normal SUBJECTIVE/INTERVAL HISTORY: Patient is feeling okay and denies shortness of breath, nausea, vomiting, constipation, problems urinating, unexplained weight loss, or vaginal bleeding. + lower abdominal pain. Ayah West MA October 07, 2024 11:34 AM OBJECTIVE: BP 118/80 Pulse 89 Temp 37 C (98.6 F) Ht 165.1 cm (5' 5) Wt 54.8 kg (120 lb 13 oz) SpO2 99% BMI 20.10 kg/m Female in no acute distress. Abdominal - Incision well-healed, without evidence of hernia or infection. No CVA tenderness. The bowel sounds are positive. The abdomen is soft, nontender and there is no inguinal adenopathy. Pelvic - Normal vulva and vaginal cuff. Bimanual exam reveals no tenderness. [employer] for exam: Tess Tabares CNP The sensitive examination was discussed with the Patient or Patient's Authorized Asset Protection Representative. Asapplicable, any other physician, advance practice provider, medical student, or other health professional student that will be observing or involved in the sensitive examination for educational or training purposes was discussed with the Patient or Authorized Asset Protection Representative. The Patient or Authorized Asset Protection Representative has agreed to proceed with the sensitive examination. 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 Surgical incisions are intact, healing well, and show no signs of infection. Postop restrictions and wound care reviewed. Patient is ambulating and voiding. She reports some abdominal aches but tolerable at this point and blood in her stools which started on 10/02/2024. After surgery, her stools were hard then she had diarrheas and then she saw stripes of blood on wiping. She is taking Xarelto. Explained that it could be because her stools were passing through the anastomosis and caused irritation. Will check her CBC today. Reviewed a plan to resume chemotherapy (carbo/taxol regimen x 3 cycles) in two weeks with Dr. Hall. I will get in touch with him regarding her treatment plan. Patient verbalized understanding. ATTESTATION: By signing my name below, Hayley Noyola, attest that this documentation has been prepared under the direction and in the presence of Fredis Buckner MD. Electronically signed: Narciso Good, October 07, 2024 11:47 AM Provider Attestation: Fredis Noyola MD, personally performed the services described in this documentation. All medicalrecord entries made by the karlieibe were at my direction and in my presence. I have reviewed the chart and discharge instructions (if applicable) and agree that the record reflects my personal performance and is accurate and complete. Fredis Buckner MD October 07, 2024 12:22 PM I have confirmed and edited as necessary, the history of the present illness (HPI). Interval changes in the history of present illness are noted. I have confirmed and edited as necessary, the PFSH and ROS obtained by others. I saw the patient and personally participated in the saenz components and agree with the documented findings and plan. Sincerely, Fredis Buckner M.D. Reviewed and corrected by Fredis Buckner M.D. The previous note written by Dr. Buckner dated 09/07/2024 was copied forward and the necessary changes were made. CC: Nile Hall DO documented in this encounterFostoria City [facility]01-02-[facility] Telephone encounter Note* Telephone Encounter - Sydney Ahumada RN - 10/04/2024 3:33 PM EST Patient verified. Called and spoke to the patient in regards to her message about having blood in her stools. The patient voices that for the last 3 days that she has had stools twice a day (Diarrheahas resolved) that contains what appears to be blood. The patient also voices that a little blood is usually present in the commode as well ,however, it is not very much. The patient endorses that the blood she believes is anal , not vaginal , she denies pain or a foul smell, however, the blood is noticeable. The patient denies feeling faint or lightheaded. The patient agrees that she will continue to log her bowel movements with blood and can wait for an assessment with Dr. Buckner on . Informed the patient that an DIRECTOR OF NURSING is available in the event she needs to see someone sooner. After reaching out to an DIRECTOR OF NURSING, I advised the patient that she should keep her appointment with Dr. Buckner on . Patient appreciative of call. Sydney Ahumada RN Gyn/Onc Boot Trimmer [facility]12-30-2024 Miscellaneous Notes* Telephone Encounter - Sydney Ahumada RN - 10/04/2024 3:33 PM EST Patient verified. Called and spoke to the patient in regards to her message about having blood in her stools. The patient voices that for the last 3 days that she has had stools twice a day (Diarrheahas resolved) that contains what appears to be blood. The patient also voices that a little blood is usually present in the commode as well ,however, it is not very much. The patient endorses that the blood she believes is anal , not vaginal , she denies pain or a foul smell, however, the blood is noticeable. The patient denies feeling faint or lightheaded. The patient agrees that she will continue to log her bowel movements with blood and can wait for an assessment with Dr. Buckner on . Informed the patient that an DIRECTOR OF NURSING is available in the event she needs to see someone sooner. After reaching out to an DIRECTOR OF NURSING, I advised the patient that she should keep her appointment with Dr. Buckner on . Patient appreciative of call. Sydney Ahumada, artificial pearl maker/Onc Boot Trimmer documented in this encounterFostoria City Hospital12-30-2024 Telephone encounter Note * Telephone Encounter - Tess Tabares APRN.CNP - 10/04/2024 3:32 PM EST Spoke to patient. She stated that she had diarrhea for a little bit after surgery and then [id number] she starting having harder stool and started taking Colace PRN. States she took 1 Colace 09/27, 09/30 and noted the scant bleeding on 10/02/24. Denies any dizziness, lightheadedness etc. Has only noted the scant amount of blood when she has the harder stool. Discussed taking the stool softener( Colace) daily and look for any worsening symptoms such as increased rectal bleeding, dizziness etc. Also discussed that the diarrhea could've caused hemorrhoids/ skin irritation and same with hard stools. Voiced understanding. Will keep appointment as scheduled with Dr Buckner 10/07/24 and also monitor symptoms. She was grateful for phone call. Tess Tabares APRN.DELFINO [facility] Work Phone: [phone] 227-933912-30-2024 Miscellaneous Notes* Telephone Encounter - Tess Tabares APRN.CNP - 10/04/2024 3:32 PM EST Spoke to patient. She stated that she had diarrhea for a little bit after surgery and then [id number]/23 she starting having harder stool and started taking Colace PRN. States she took 1 Colace 09/27, 09/30 and noted the scant bleeding on 10/02/24. Denies any dizziness, lightheadedness etc. Has only noted the scant amount of blood when she has the harder stool. Discussed taking the stool softener( Colace) daily and look for any worsening symptoms such as increased rectal bleeding, dizziness etc. Also discussed that the diarrhea could've caused hemorrhoids/ skin irritation and same with hard stools. Voiced understanding. Will keep appointment as scheduled with Dr Buckner 10/07/24 and also monitor symptoms. She was grateful for phone call. Tess Tabares APRN.PHOTOGRAPHER LITHOGRAPHIC * Telephone Encounter - Veronica Galvan RN - 10/04/2024 2:40 PM EST Pt LVM at [facility] office. Spoke to pt who said the last 3 days after a BM she has noted some bleeding. a little in the stool Pt also said when wiping a less than quarter size of blood noted on toilet paper. Pt has a post -op appointment with Dr. [facility] at [facility] 10/07. Informed pt message would be sent to medical team to review and advise. Pt verbalized understanding and grateful for call. documented in this encounterFostoria City Hospital12-30-2024 Telephone encounter Note * Telephone Encounter - Veronica Galvan RN - 10/04/2024 2:40 PM EST Pt LVM at [facility] office. Spoke to pt who said the last 3 days after a BM she has noted some bleeding. a little in the stool Pt also said when wiping a less than quarter size of blood noted on toilet paper. Pt has a post -op appointment with Dr. Buckner at [facility] 10/07. Informed pt message would be sent to medical team to review and advise. Pt verbalized understanding and grateful for call. [facility]12-19-2024 Telephone encounter Note* Telephone Encounter - Yulia Holm RN - 09/23/2024 10:07 AM EST Spoke to patient. Informed her that this nurse reached out to floor layer helper/onc CC and the plan will be for patient to meet with Dr. Buckner on 10/07/24 and he should be communicating the plan moving forward at that time. Patient stated understanding. Yulia Holm RN [facility]12-19-2024 Miscellaneous Notes* Telephone Encounter - Yulia Holm RN - 09/23/2024 10:07 AM EST Spoke to patient. Informed her that this nurse reached out to floor layer helper/onc CC and the plan will be for patient to meet with Dr. Buckner on 10/07/24 and he should be communicating the plan moving forward at that time. Patient stated understanding. Yulia Holm RN * Telephone Encounter - Yulia Holm RN - 09/22/2024 10:21 AM EST Sent a note to the floor layer helper/onc CC to see what treatment she is supposed to be starting. Dr. Hall was not planning on seeing patient until after her post op appointment with Dr. Buckner on 10/07/24. Yulia Holm RN * Telephone Encounter - Tali Ervin - 09/22/2024 8:33 AM EST Patient calling in about getting her treatments on the schedule. Please review and advise. Tali Ervin September 22, 2024 8:33 AM documented in this encounterFostoria City Hospital12-18-2024 Telephone encounter Note * Telephone Encounter - Sydney Ahumada RN - 09/22/2024 11:00 AM EST Verified name and . Called the patient in regards to her message about continuing to have diarrhea and the inability to eat. The patient voices that yesterday she was hungry so she had a full breakfast consisting of an [place]i muffin, scrambled eggs, with april crackers. The patient voices at that time the diarrhea had stopped or was calm. The patient voices that she wanted a baked potato toward the afternoon, but did not eat it related to the diarrhea that started. The patient voices that the diarrhea ended at about 2 am and as of this morning she has not had breakfast. The patient taking Tylenol for pain with relief. The patient denies emesis, fever, severe pain or bloody stools. The patient mentioned that she thought about taking imodium but chose not to. Informed the patient that after the surgery that she had (anastomosis) that it is not uncommon for her bowel to try to re gain its normal function without an outside source(ostomy), therefore as the flow and rhythm returns with functionality of bowel /muscles and nerves that diarrhea is not uncommon post op. Encouraged thepatient to eat small frequent bland meals throughout the day while staying hydrated. I also sent the patient a list of foods that may help post op with diarrhea as well as foods to stay away from during her healing. Patient agrees to trial diet regime and update the office if further assistance is needed. Sydney Ahumada RN Gyn/Onc Boot Trimmer [facility]12-18-2024 Miscellaneous Notes* Telephone Encounter - Sydney Ahumada RN - 09/22/2024 11:00 AM EST Verified name and . Called the patient in regards to her message about continuing to have diarrhea and the inability to eat. The patient voices that yesterday she was hungry so she had a full breakfast consisting of an [place]i muffin, scrambled eggs, with april crackers. The patient voices at that time the diarrhea had stopped or was calm. The patient voices that she wanted a baked potato toward the afternoon, but did not eat it related to the diarrhea that started. The patient voices that the diarrhea ended at about 2 am and as of this morning she has not had breakfast. The patient taking Tylenol for pain with relief. The patient denies emesis, fever, severe pain or bloody stools. The patient mentioned that she thought about taking imodium but chose not to. Informed the patient that after the surgery that she had (anastomosis) that it is not uncommon for her bowel to try to re gain its normal function without an outside source(ostomy), therefore as the flow and rhythm returns with functionality of bowel /muscles and nerves that diarrhea is not uncommon post op. Encouraged thepatient to eat small frequent bland meals throughout the day while staying hydrated. I also sent the patient a list of foods that may help post op with diarrhea as well as foods to stay away from during her healing. Patient agrees to trial diet regime and update the office if further assistance is needed. Sydney Ahumada artificial pearl maker/Onc Boot Trimmer documented in this encounterFostoria City Hospital12-18-2024 Telephone encounter Note * Telephone Encounter - Yulia Holm RN - 09/22/2024 10:21 AM EST Sent a note to the floor layer helper/onc CC to see what treatment she is supposed to be starting. Dr. Hall was not planning on seeing patient until after her post op appointment with Dr. Buckner on 10/07/24. Yulia Holm RN [facility]12-18-2024 Telephone encounter Note* Telephone Encounter - Tyesha Chery - 09/22/2024 9:08 AM EST Patient calling to speak with Chemo coordinator. Patient is experiencing diarrhea and having trouble eating. Patient would appreciate a call back. Patient can be reached at [phone] [facility]12-18-2024 Miscellaneous Notes* Telephone Encounter - Tyesha Chery - 09/22/2024 9:08 AM EST Patient calling to speak with Chemo coordinator. Patient is experiencing diarrhea and having trouble eating. Patient would appreciate a call back. Patient can be reached at [phone] documented in this encounterFostoria City Hospital12-18-2024 Telephone encounter Note * Telephone Encounter - Tali Ervin - 09/22/2024 8:33 AM EST Patient calling in about getting her treatments on the schedule. Please review and advise. Tali Ervin September 22, 2024 8:33 AM [facility]12-16-2024 Telephone encounter Note* Telephone Encounter - Sydney Ahumada RN - 09/20/2024 1:49 PM EST Left a VM for the patient to call the office so that I can make sure that she is scheduled for treatments at [facility]. Sydney Ahumada RN Gyn/Onc Boot Trimmer [facility]12-16-2024 Miscellaneous Notes* Telephone Encounter - Sydney Ahumada RN - 09/20/2024 1:49 PM EST Left a VM for the patient to call the office so that I can make sure that she is scheduled for treatments at [facility]. Sydney Ahumada RN Gyn/Onc Boot Trimmer documented in this encounterFostoria City Hospital12-13-2024 NoteSt[facility]12-[facility] History of Present illness Narrative* Lila Sanchez RN - 09/17/2024 11:08 AM EST DATE OF SERVICE: 09/17/2024 PROBLEM: Sal Bautista presents for staple removal SURGERY AND DATE: 09/08/2024 Exploratory laparotomy, extensive enterolysis, bilateral ureterolysis, total abdominal hysterectomy and bilateral salpingo- oophorectomy, resection of sigmoid colon with coloanal anastomosis, dissection of contracted omentum off the transverse colon and stomach with resection of the omentum and then takedown of the ileostomy. SUBJECTIVE: Sal Bautista reports that she feels fair. No fever or chills. No shortness of breath, cough, or chest pain. No incisional redness, swelling, or drainage. Patient reports intermittent redness around the incision. Patient reports that her appetite is fair. No nausea, vomiting, diarrhea, or constipation. Positive for abdominal pain and nausea. No dysuria, gross hematuria, urinary frequency, urinary urgency, or incontinence. Her ECOG performance status is zero (fully active, able to carry on all pre-disease performance without restriction). PROCEDURE/OBJECTIVE: BP 112/67 Pulse 82 Temp 98 Wt 125 lb 3.5 oz (56.8kg) SpO2 100% Midline abdominal incision well approximated with dave. No redness, swelling, or foul drainage from incision. Dave removed. Benzoin and steri-strips applied. ASSESSMENT: Incisions well approximated with steri strips in placed. Mild rash noted above closure site. Denies pruritus. Incision dual assessed with Rosi SALEH. PLAN: Review s/s to look out for. Instructed pt to reach out to office if rash worsens. Patient okay to take benadryl if needed. Instructed to F/U with Dr. Buckner as scheduled on 10/07/2024 to discuss results of pathology. Lila Sanchez RN documented in this encounterFostoria City Hospital12-11-2024 Telephone encounter Note * Telephone Encounter - Bethany Amaya RN - 09/15/2024 1:40 PM EST Patient called her PCP office with c/o abdominal pain and diarrhea. Phone message forward to Dr. [facility] office. Called and spoke to patient. Verified name and . Patient stated she felt fine yesterday and then later in the day she began to have abdominal pain and diarrhea. Patient stated she took an oxycodone and bentyl. Patient stated she was able to sleep. Woke up with morning feeling better. Was able to eat and tolerate a soft diet. No c/o diarrhea at this time. Advised patient if she is taking oxycodone, it can cause constipation. She can take a colace as part of her bowel regime to avoidconstipation. Patient was informed she received metamucil to help bulk her stool while in the hospital due to diarrhea. Patient will continue to her soft diet, continue oxycodone for pain as needed. Patient was appreciative for the follow up. Bethany Amaya RN Boot Trimmer [facility]12-11-2024 Miscellaneous Notes* Telephone Encounter - Bethany Amaya RN - 09/15/2024 1:40 PM EST Patient called her PCP office with c/o abdominal pain and diarrhea. Phone message forward to Dr. [facility] office. Called and spoke to patient. Verified name and . Patient stated she felt fine yesterday and then later in the day she began to have abdominal pain and diarrhea. Patient stated she took an oxycodone and bentyl. Patient stated she was able to sleep. Woke up with morning feeling better. Was able to eat and tolerate a soft diet. No c/o diarrhea at this time. Advised patient if she is taking oxycodone, it can cause constipation. She can take a colace as part of her bowel regime to avoidconstipation. Patient was informed she received metamucil to help bulk her stool while in the hospital due to diarrhea. Patient will continue to her soft diet, continue oxycodone for pain as needed. Patient was appreciative for the follow up. Bethany Amaya RN Boot Trimmer documented in this encounterFostoria City Hospital12-11-2024 NoteSt[facility]12-[facility]-20[facility] History of Present illness Narrative* Kendy Pittman RN - 09/15/2024 9:53 AM EST Transition Care Management (TCM) Initial Outreach PCP Update / Actionable Items patient states that yesterday after her virtual appt with floor layer helper/onc , she drank a K FARM protein shake. Stated she has abd pain and diarrhea . Patient states she took an oxycodone , which improved her abd pain. She has not eaten today , but staying hydrated . States she plans on taking bentyl before next meal to see if this will help . Patient states she was given metamucil in the hospital , and noted it was not prescribed on discharge - she is asking if she should start taking . states dave intact , abd surgical wounds instant potato processor . denies drainage . states area around old ostomy site is slightly red . denies fever . declines pcp appt - prefers to follow up with Dr. [facility]'s team. N/A - No specialty updates needed Patient Source: In-Network Discharge Initial outreach: TCM discharge report Outreach Summary: see above Patient discharged from [facility] Discharge date: 09/13/24 Admitted for: REASON FOR HOSPITALIZATION: Interval debulk, ex lap, HANY BSO, Supracolic Omentectomy,RSR with primary E2E anastomosis, ileostomy takedown with S2S E2E reanastomosis Readmission Risk: 12 Value-Based Contract: Mansi BEY Contact: Contact made with patient: Yes Hi, my name is Kendy Pittman RN and I am calling from the [facility] on behalf of your Primary Care Provider, Romel Michelle MD. I understand you were recently in the hospital, so I am calling to check in with you to ensure you are feeling well now that you are home. May I ask you a few questions related to your hospital stay and well-being? Yes Spoke to: Patient Validation: Validated the person spoken to is actively involved in the patient's care. The patient was identified by Name and Date of . Symptoms: Are you feeling about the same, better or worse since leaving the hospital? Better Medications: Do you have any questions about taking your medications, including which medications you should be on, or do you need refills on your medications? No Medication Review: Partial mediation review completed, per patient preference Discharge Instructions: Your Discharge Instructions / After Visit Summary (AVS) are important in guiding you through the recovery process. Do you have any questions related to your discharge instructions? No Home Care: Were you discharged with home care? No Equipment: Do you have all the necessary equipment and supplies needed at your home? Yes The patient verbalizes understanding the use of the equipment and supplies Social: We would like to make sure you have what you need so that your basics needs are met - including your personal safety, food, housing and medications. Would you like to speak with a social work steam engineer to help give you support for any of these needs? No It can be normal to feel anxious or down during a time like this. Would you like to talk to a mental health professional about how you have been feeling? No Action Taken: No needs verbalized. No action required. Follow-Up Appointment: [Appointment / TCM Follow-up within 14 days] I would like to help you schedule a hospital follow-up virtual or telephone visit with your PCP. This is a great way for you to connect with your provider to ensure you have safely transitioned home.If you are agreeable, I will send your request to a ferryboat captain who will contact and assist you with that appointment. This will give you an opportunity to ask any questions or address any concerns youmay have with your PCP. Inform the patient that if they have any questions or concerns prior to that appointment, to call their PCP's office right away. Appointment Action: No action required, patient declines appointment. Education Patient and family educated on issues/questions related to reason for admission, transition of caretopics, and follow-up needed upon discharge. Targets addressed / completed during outreach: Contact patient within two (2) business days Outreach Outcome: Enrolled in TCM Care Management partners utilized: N/A Kenyd Pittman RN September 15, 2024 10:28 AM documented in this encounterFostoria City Hospital12-10-[facility] History of Present illness Narrative* Rosi Martinez APRN.PHOTOGRAPHER LITHOGRAPHIC - 09/14/2024 1:36 PM EST VIRTUAL VISIT POSTOP PROGRESS NOTE This is a virtual visit using Audio Only Visit. It required patient-provider interaction for the medical decision making as documented below. I have communicated my name and active licensure. The patient s identity and physical location wereverified at the time of this visit. Either the patient or their legal claim representative has been informed of the risks and benefits of -- and alternatives to -- treatment through a remote evaluation andconsents to proceed with the evaluation remotely. DATE OF SERVICE: 09/14/2024 PROBLEM: Sal Bautista presents for postop virtual visit. SURGERY & DATE: 09/08/2024-Interval debulk no residual disease, Ex lap, HANY BSO, Supracolic Omentectomy, RSR with primary E2E anastomosis, ileostomy takedown with S2S E2E reanastomosis PATHOLOGY: in process SUBJECTIVE/INTERVAL HISTORY: Sal Bautista reports that she feels ok. No fever or chills. No shortness of breath, cough, or chest pain. No incisional redness, swelling, or drainage. Patient reportsthat her appetite is good. No abdominal pain, nausea, vomiting, diarrhea, or constipation. No dysuria, gross hematuria, urinary frequency, urinary urgency, or incontinence. Her ECOG performance status is zero (fully active, able to carry on all pre-disease performance without restriction). OBJECTIVE: VITALS: Deferred for virtual visit GENERAL: She is alert, oriented, pleasant, and cooperative. ASSESSMENT: 74 yo s/p 6 cycles carbo taxol and debulking surgery-09/08/2024-Interval debulk no residual disease, Ex lap, HANY BSO, Supracolic Omentectomy, RSR with primary E2E anastomosis, ileostomy takedown with S2S E2E reanastomosis-normal postoperative course PLAN: 1. Discussed results of pathology and implications with patient. Path pending. 2. Postop restrictions and wound care reviewed. 3. Will arrange for staple removal and plan of care/chemo at [place] postop. Rosi Martinez APRN.CNP A copy of this office note and a letter were sent to: pgr documented in this encounterFostoria City Hospital12-09-2024 Telephone encounter Note * Telephone Encounter - Yulia Holm RN - 09/13/2024 4:05 PM EST DISCHARGE CALL BACK Today's date: September 13, 2024 Notified of Pt discharge by: epic notification Patient discharged on 09/13/[address] [facility] to Home Primary Cancer Diagnosis: Ovarian Admitting Diagnosis: Surgical procedure OPERATIONS DURING HOSPITALIZATION: Interval debulk no residual disease, Ex lap, HANY BSO, SupracolicOmentectomy, RSR with primary E2E anastomosis, ileostomy takedown with S2S E2E reanastomosis Discharge Summary/SBAR reviewed: Yes Handoff Discussed with Transitional Boot Trimmer: N/A Psychosocial Risk Factors: None If patient discharged to SNF/Rehab Facility, phone call completed to reinforce discharge instructions and follow up: N/A Call Disposition: Will discuss follow-up plan with Dr. Hall Patient is scheduled to see Dr. Buckner on 10/07/24. Surgical pathology is still pending. Yulia Holm RN [facility]12-09-2024 Miscellaneous Notes* Telephone Encounter - Yulia Holm RN - 09/13/2024 4:05 PM EST DISCHARGE CALL BACK Today's date: September 13, 2024 Notified of Pt discharge by: epic notification Patient discharged on 09/13/24 from [facility] [place] to Home Primary Cancer Diagnosis: Ovarian Admitting Diagnosis: Surgical procedure OPERATIONS DURING HOSPITALIZATION: Interval debulk no residual disease, Ex lap, HANY BSO, SupracolicOmentectomy, RSR with primary E2E anastomosis, ileostomy takedown with S2S E2E reanastomosis Discharge Summary/SBAR reviewed: Yes Handoff Discussed with Transitional Boot Trimmer: N/A Psychosocial Risk Factors: None If patient discharged to SNF/Rehab Facility, phone call completed to reinforce discharge instructions and follow up: N/A Call Disposition: Will discuss follow-up plan with Dr. Hall Patient is scheduled to see Dr. Buckner on 10/07/24. Surgical pathology is still pending. Yulia Holm RN documented in this encounterFostoria City Hospital12-09-2024 Telephone encounter Note * Telephone Encounter - Ash Keller PSS - 09/13/2024 2:17 PM EST Date/Time: 09/13/2024 2:17 PM Spoke with Cliff Bautista (Spouse) @ phone #: - Preferred # for contact: [phone] (Mobile Have you received help from a home care company in the last 60 days? No Are you agreeable to [facility] services? Yes What address will we be seeing you at? [address] [facility] [address] Do you have any upcoming appointments or things we need to schedule around? No Do you have a teachable CG or can you manage your care independently? Yes Who? Spouse Have you received the flu shot? Yes If so, when and where? [facility]12-09-2024 Miscellaneous Notes* Telephone Encounter - Ash Keller PSS - 09/13/2024 2:17 PM EST Date/Time: 09/13/2024 2:17 PM Spoke with Cliff Bautista (Spouse) @ phone #: - Preferred # for contact: [phone] (Mobile Have you received help from a home care company in the last 60 days? No Are you agreeable to [facility] services? Yes What address will we be seeing you at? [address] [facility] [address] Do you have any upcoming appointments or things we need to schedule around? No Do you have a teachable CG or can you manage your care independently? Yes Who? Spouse Have you received the flu shot? Yes If so, when and where? [facility]29 documented in this encounterFostoria City Hospital12-09-[address] [facility]12-[facility] NoteSt[facility]12-09-20[facility] NoteSt[facility]12-08-20[facility]12[facility]07-[address] [facility]12-06-2024 Telephone encounter Note* Telephone Encounter - Romel Michelle MD - 09/10/2024 5:49 PM EST Agreeable and will sign, etc [facility]12-06-2024 Miscellaneous Notes* Telephone Encounter - Romel Michelle MD - 09/10/2024 5:49 PM EST Agreeable and will sign, etc * Telephone Encounter - Ema Hinojosa LPN - 09/10/2024 9:03 AM EST Romel Michelle MD Please advise if you are agreeable to signing and following for [facility] services? Our Clinicians will be sending the Plan of Care to you for review and approval. They will reach out for any appropriate orders required to provide home care services for the patient. We are not able to initiate HHC services without a following provider. Home care clinicians may also obtain orders from [facility] Virtualist Providers Thank you and we would be happy to answer any questions. Ema Hinojosa LPN 09/10/2024 9:03 AM * Telephone Encounter - Ema Hinojosa LPN - 09/09/2024 1:53 PM EST Romel Michelle MD Please advise if you are agreeable to signing and following for HHC services? Our Clinicians will be sending the Plan of Care to you for review and approval. They will reach out for any appropriate orders required to provide home care services for the patient. We are not able to initiate HHC services without a following provider. Home care clinicians may also obtain orders from [facility] Prov[facility] Thank you and we would be happy to answer any questions. Ema Hinojosa LPN 09/09/2024 1:54 PM documented in this encounterFostoria City Hospital12-06-2024 [facility]St[facility]12-[facility]-2024 Telephone encounter Note* Telephone Encounter - Ema Hinojosa LPN - 09/10/2024 9:03 AM EST Romel Michelle MD Please advise if you are agreeable to signing and following for HHC services? Our Clinicians will be sending the Plan of Care to you for review and approval. They will reach out for any appropriate orders required to provide home care services for the patient. We are not able to initiate HHC services without a following provider. Home care clinicians may also obtain orders from [facility] Thank you and we would be happy to answer any questions. Ema Hinojosa LPN 09/10/2024 9:03 AM [facility] Work Phone: 1(780) 812-453412-06-2024 NoteSt. [facility]12-06-2024 NoteSt[facility]12-05-2024 Telephone encounter Note* Telephone Encounter - Ema Hinojosa LPN - 09/09/2024 1:53 PM EST Romel Michelle MD Please advise if you are agreeable to signing and following for HHC services? Our Clinicians will be sending the Plan of Care to you for review and approval. They will reach out for any appropriate orders required to provide home care services for the patient. We are not able to initiate HHC services without a following provider. Home care clinicians may also obtain orders from [facility] Prov[facility] Thank you and we would be happy to answer any questions. Ema Hinojosa LPN 09/09/2024 1:54 PM [facility]12-05-2024 [facility]12-04-[address] [facility]12-04-2024 [facility]St[facility]12-04-2024 Telephone encounter Note* Telephone Encounter - Ema Vega MD - 09/08/2024 5:02 AM EST Per Diem Registered Nurse Telephone Encounter Patient identity confirmed by name and date of Patient reports, Well I'm scheduled for surgery this morning with dr. Buckner and last night when I was doing the prep with the antibiotic stuff I kept the 7 o'clock down but the 11 o'clock I upchuckedit. I've been having some abdominal pain up into my stomach and I saw him yesterday and it wasn't bad at all and so I just wanted to double check, is it ok just to come in as regularly scheduled? She denies fevers, chills. She reports continued ileostomy output but decreased output due to not eating as much prior to surgery including clear liquids the day prior to surgery. She reports she would rate the pain 4-5 out of 10. She reports she would like to take some medication for it and that the medication she would normally like to take is Zofran because she feels somewhat nauseous. She describes the pain as a dull ache and that she is burping more. She reports she is still voiding without issues. Discussed that her pain and discomfort is likely related to recent episode of emesis and that it isstill reasonable to come to the hospital to proceed with surgery. Ema Vega MD S she/her/hers PGY-3 Obstetrics and Gynecology [facility] Work Phone: 1(326) 271-527212-04-2024 Miscellaneous Notes* Telephone Encounter - Ema Vega MD - 09/08/2024 5:02 AM EST Per Diem Registered Nurse Telephone Encounter Patient identity confirmed by name and date of Patient reports, Well I'm scheduled for surgery this morning with dr. Buckner and last night when I was doing the prep with the antibiotic stuff I kept the 7 o'clock down but the 11 o'clock I upchuckedit. I've been having some abdominal pain up into my stomach and I saw him yesterday and it wasn't bad at all and so I just wanted to double check, is it ok just to come in as regularly scheduled? She denies fevers, chills. She reports continued ileostomy output but decreased output due to not eating as much prior to surgery including clear liquids the day prior to surgery. She reports she would rate the pain 4-5 out of 10. She reports she would like to take some medication for it and that the medication she would normally like to take is Zofran because she feels somewhat nauseous. She describes the pain as a dull ache and that she is burping more. She reports she is still voiding without issues. Discussed that her pain and discomfort is likely related to recent episode of emesis and that it isstill reasonable to come to the hospital to proceed with surgery. Ema Vega MD S she/her/hers PGY-3 Obstetrics and Gynecology documented in this encounterFostoria City Hospital12-03-2024 History of Present illness Narrative* Fredis Buckner MD - 09/07/2024 11:00 AM EST Images from the original note were not included. Gynecologic Oncology [facility] Preop Re: Sal Bautista [facility]#: [id number] Date of Service: 09/07/2024 Dr. 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 Briefly, she is a 74 year old female, 2, para2 with a past medical history of IBS and osteoporosis who was referred for the evaluation of pelvicmass. 02/24/2024 patient presented to PCP with c/o abdominal distention and bloating. History of IBS causing both diarrhea and constipation. TREATMENT HISTORY: 03/10/2024 CT Abd/Pel IMPRESSION: Large complex cystic mass in the left pelvis with adjacent soft tissue component extending into the right pelvis concerning for ovarian neoplasm. Ascites and changes of carcinomatosis also present in the abdomen and pelvis. 03/15/2024 Consult: 73yo female presents for management of pelvic mass, peritoneal thickening, and moderate volume ascites. No tumor markers were drawn. Patient with history of IBS. Her last colonoscopy from November 2015 was normal. She has been losing weight since December this year. Reports difficulty with eating which is not unusual for IBS. Family history of breast cancer (maternal aunt). I reviewed her CT scan from 03/10/2024 showing a large pelvic mass. There were irregularities seen along the diaphragm reflecting fluid and solid masses. There were ascites and findings suggesting carcinomatosis. I discussed my suspicion for malignancy and we will obtain tumor markers (CA125, CA19-9,and CEA) for further work up. We typically treat gynecologic cancers with either primary surgery and adjuvant chemotherapy or neoadjuvant chemotherapy and interval debulking surgery. Patient is 73 year old but she has good performance status and has no significant medical problems. I think she willbe a good candidate for primary debulking surgery if her prealbumin is wnl. If patient can be optimally cytoreduced, her survival could be improved. We will obtain prealbumin to evaluate her nutritional status and a chest CT to rule out intrathoracic disease. If her prealbumin is acceptable, will plan for primary debulking. Discussed the duration of hospital stay of 3 days after surgery with no bowel resection and approximately 7 days with bowel resection. If her CA125 is normal and her other tumor markers are elevated, may plan for IR biopsy to determine primary. If her prealbumin is very low, this could increase operative morbidity from primary surgery so we will pursue neoadjuvant chemotherapy while bringing her nutritional status up to get ready for interval debulking. I explained that chemotherapy can help reduce the volume of her ascites at which point she will feel less distendedand be able to eat more. Consents obtained today for both primary surgery and neoadjuvant chemotherapy and we will decide which approach based on her lab and imaging results. Latest Ref Rng 03/15/2024 Prealbumin 17 - 36 mg/dL 12 (L) Latest Ref Rng 03/15/2024 CEA <=2.9 ng/mL 0.6 CA 125 <39 U/mL 305 (H) CA19-9 <36.0 U/mL 11.0 03/16/2024 CT CHEST WO IVCON IMPRESSION: Few small sub-6 mm indeterminate lung nodules. Continued attention on follow-up is suggested given history of pelvic mass. No thoracic lymph node enlargement. Focal thickening along the right anterior pleura and a cluster of subcentimeter right cardiophreniclymph nodes. Continued attention on follow-up is suggested. 03/16/2024 Telephone encounter with Aga Meredith APRN.PHOTOGRAPHER LITHOGRAPHIC Called and spoke with patient~ per Dr. Buckner, he would like to cancel surgery tomorrow and admit herfor paracentesis and placement of feeding tube for poor nutritional status. Called admitting to request bad and advised patient that they would call her when bed becomes available. Updated inpatient team. Updated tugboat mate that her case needs to be cancelled tomorrow. 03/17 - 03/24/2024 [facility] [place] admission - Paracentesis and nutritional optimization PROCEDURES DURING HOSPITALIZATION: Corpak placement, EGD-guided Corpak placement HOSPITAL COURSE: Sal Bautista is a 73 year old female with a hx of IBS, osteopenia, and large pelvic mass who presented for nutritional optimization and paracentesis prior to surgery. She underwent a paracentesis on 03/17, with cytology notable for malignant cells consistent with high-nuclear grade adenocarcinoma. She underwent a Corpak placement for nutritional optimization, however it was noted to be folded back on itself on multiple KUBs. She then underwent an EGD-guided Corpak placement, which subsequently became clogged. Treatment with clog zapper and viokace was not effective and therefore decision was made to remove the corpak and discharge home without outpatient follow up. 03/17/2024 Paracentesis FINAL DIAGNOSIS A - Ascites Fluid, Sterile Fluid/Body Fluid Positive for malignant cells. High-nuclear grade adenocarcinoma. See comment. Diagnosis Comment Immunohistochemical stains show that the malignant cells are positive for Cambridge-8, Claudin-4 and negative for D2-40, ER. WT-1 shows rare, weak staining. P53 shows weak to moderate nuclear staining. Thestaining pattern of the p53 is suboptimal and should be repeated in the surgical specimen. The immunohistochemical staining pattern is consistent with a mullerian origin. Selected slides were reviewed in consultation with Dr. Munoz, who concurs. 03/29/2024 Visit: Patient presents with her for hospital follow-up visit. She was recently hospitalized for nutritional optimization and paracentesis prior to surgery. Underwent Corpak placement however it was noted to be folded back on itself on multiple KUBs. She then underwent an EGD-guided Corpak placement, which subsequently became clogged. Treatment with clog zapper and viokace was not effective and therefore decision was made to remove the corpak and discharge home with outpatientfollow up. I reviewed the cytologic study of her paracentesis. The immunohistochemical staining pattern is consistent with a Mullerian origin of high-nuclear grade adenocarcinoma although p53 staining pattern was inconclusive which could be due to insufficient cells and should be repeated in the surgical specimen. Reviewed low grade serous carcinoma (5% of all cases), high grade serous carcinoma (remaining 95%), different oncogenic pathways and only 4% of patients with low grade serous carcinoma achieved complete response when treated with chemotherapy. In this patient population, primary cytoreductive surgery is typically planned. The patient has good performance status for her age and no significant medical problems. If she canbe optimally cytoreduced, her survival could be improved (average OS ~ high 70 months and PFS ~ high 20 months). We will repeat prealbumin today to reassess her nutritional status. She has been drinking 2.5 protein boost per day. Explained the importance of nutritional optimization prior to surgeryto lower operative morbidity and be able to achieve optimal recovery. If her repeat prealbumin is acceptable, will plan for primary debulking. Otherwise, may plan for TPN for one week to bring up hernutrition and plan for surgery vs initiation of neoadjuvant chemotherapy to shrink her tumor volumewhile bringing her nutritional status up to get ready for interval debulking. Patient and expressed understanding and agreement with the plan. 04/09 - 04/13/2024 [facility] [place] admission OPERATIONS DURING HOSPITALIZATION: XL, aborted debulk, diverting loop ileostomy PROCEDURES DURING HOSPITALIZATION: No procedures performed HOSPITAL COURSE: Sal Bautista is a 73 yo female who was admitted with complex L pelvic mass. On 04/09 she underwent exploratory laparotomy and diverting loop ileostomy. Debulking of tumor was aborted due to significant carcinomatosis. SBO was visualized near ileocecal valve intraoperatively. Severalperitoneal biopsies were obtained. On POD#1, she passed her void trial and had adequate urine output. She had good ostomy output, and her diet was able to be advanced to to GIS. Her pain was well controlled with Tylenol and PO oxycodone 5mg PRN. On 7, she complained of LLE swelling and had a DVT US which was negative. On POD#4 shewas tolerating a diet, ambulating, meeting all post operative milestones, and was able to be discharged home. 04/09/2024 Exploratory laparotomy, drainage of ascites, peritoneal biopsies, and diverting loop ileostomy Residual: >2.0 cm Peritoneal PREOPERATIVE DIAGNOSIS: High-grade carcinomatosis. POSTOPERATIVE DIAGNOSIS: High-grade carcinomatosis, pending final pathology, partial small bowel obstruction. FINDINGS: ~2L serous ascites evacuated. 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 Ovarian mass in pelvis, unable to palpate rectum/sigmoid. Small bowel with extensive dilation and collapsed large bowel, likely small bowel obstruction near ileocecal valve but unable to mobilize bowel sufficiently due to mesenteric carcinomatosis to visualize the obstruction. Carcinomatosis along diaphragm and in the left upper quadrant but evaluation was limited by small bowel. Tumor involving the root of the small bowel mesentery. FINAL DIAGNOSIS A. Right abdominal wall peritoneum, excision: High-grade serous carcinoma; see comment. B. Left abdominal wall peritoneum, excision: High-grade serous carcinoma; see comment. Diagnosis Comment Immunohistochemical stains were performed on block A1 and the tumor cells are positive for CK7, PAX8, ER, WT1, p16 and show aberrant (strong diffuse) staining for p53. A CK20 is negative. 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 04/19/2024 Visit: Normal post operative course. Surgical incisions are intact, healing well, and show no signs of infection. Surgical dave removed, steri- strips applied. Postop restrictions and wound care reviewed. Patient reports since discharge, she is able to eat better. She didn't bring her ostomy output log with her today but states that it has been <1200 cc. She is still taking oxycodone and tylenol once a day for her incisional pain. She is cleared to resume taking fosamax. Reviewed operative findings with small bowel with extensive dilation and collapsed large bowel, likely small bowel obstruction near ileocecal valve but unable to mobilize bowel sufficiently due to mesenteric carcinomatosis to visualize the obstruction. Therefore, primary debulking was aborted and DLI was performed. The result of p53 staining from her paracentesis was inconclusive but it was rechecked on her peritoneal biopsies and turned out to be aberrant. This confirms the diagnosis of high-grade serous carcinoma. Discussed a plan to initiate neoadjuvant chemotherapy and monitor her disease response with interval [id number] and CT scans. We will plan for interval debulking if she responds favorably to treatment. Patient was initially hesitant to consider chemotherapy as she has seen many ovarian cancer patients going through chemotherapy and start deconditioning. Discussed that every patient responds differently to therapy and there are medications that help control her symptoms. We could plan to have patient undergo chemotherapy in [place] with Dr Hall and follow up for scan review after 3 cycles to reassess her disease status for interval debulking surgery and ileostomy reversal. After our discussion,patient amenable to this plan. We will obtain genetic testing. Patient reports her brother had pancreatic cancer. I explained that20% of the patients with high-grade serous ovarian carcinoma were found to carry germline BRCA mutations and having the mutations indicating favorable response to chemotherapy. Current Treatment with Dr. Nile Hall in [place] Carboplatin AUC 6 and Taxol 135 mg/m2 for 6 cycles from 04/28/2024 - 08/12/2024 CA 125 Latest Ref Rng <39 U/mL 04/22/2024 320 05/18/2024 177 06/08/2024 66 06/30/2024 183 07/21/2024 55 08/11/2024 20 09/07/2024 In process 04/29/2024 FOLR1 positive 75% staining 05/07/2024 [facility] report 06/23/2024 [facility] was negative for a pathogenic variant. 06/23/2024 CT CHEST W IVCON IMPRESSION: 1. Stable subcentimeter pulmonary nodules. No new nodules are visualized. 2. No new thoracic lymphadenopathy. 06/23/2024 CT ABD/PEL W IVCON IMPRESSION: 1. Cystic mass with internal septations in the left pelvis has not appreciably changed in size compared to the prior study. There is a right adnexal solid lesion which appears separate from the cystic mass on the current study. 2. Left upper quadrant peritoneal thickening consistent with patient's history of peritoneal carcinomatosis. No ascites. 06/30/[address] 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 -Presented with SBO. Ileostomy. -Tolerating chemotherapy very well overall. -Reviewed CT images with her and her today. Although no significant change in size of cystic tumor left pelvis, no recurrence of ascites and CA125 trending lower very nicely. She has been able to eat better and has been gaining weight. -History of sever protein malnutrition. Plan: -Okay for cycle #4 this week pending neutrophil recovery. -Check CBC and pre-albumin level tomorrow. -Can consider Neulasta Friday. -See if can move up genetic counseling appointment. -Monitor CA125. -Has appointment with Dr. Buckner. Prealbumin Latest Ref Rng 17 - 36 mg/dL 07/01/2024 34 07/16/2024 Visit: The patient was explored but was unresectable and has now undergone 4 cycles of neoadjuvant chemotherapy. Her CA125 decreased from 320 prior to initiation of her chemotherapy to 66 on 06/08/2020 after 3 courses of therapy but is now starting to elevate being 183 on 06/30/2024. I reviewed her CT scan that demonstrated that the ascites has resolved but her mass is actually increased in size. Unfortunately this appears to be [place] refractory disease. She is she is interested in what her life expectancy would be if she received no further therapy. I informed her that typically we have lumped all the patients who occur within 6 months of chemotherapy as 1 subgroup with a mediansurvival of approximately 10 months. But the patients who recur on therapy and are [place] refractory clearly have a worse prognosis. We currently have 2 studies for [place] refractory disease. Onest[facility] [place] looking at a new viral agent with [place] based chemotherapy versus [place] based chemotherapy. This study had promising results and a phase 2 and [place] resistant and refractory patients with an overall response rate of 54%. The current studies comparing the viral [place] basedchemotherapy versus [place] based chemotherapy in a phase 3 trial for FDA approval. She would be acandidate for this trial but this is a randomized trial where the patient may only receive standardof care which would be a [place] based chemotherapy with Avastin. This may be an acceptable regimen but [facility] would [facility]. A second study involves harvesting her T cells multiplying them and read if using them an adaptive immunotherapy approach. This trial requires certain HLA type and this was drawn for the patient today after informed consent and if her HLA type is eligible the neck step is to study her tumor for a biomarker MAGE-4. At the time of her ileostomy, asection of tumor was obtained for such testing. I have asked her to get another CA125 so we can seeif this value is continuing to increase. We will plan to have her presented tumor board in 10 days. 07/27/2024 Tumor Board - Recommend continuing Carbo/Taxol for 1 additional cycles then repeat imaging - Consider switching to Carbo/Maverick or Carbo/Doxil 08/25/2024 CT CHEST W IVCON IMPRESSION: Stable lung nodules or nodular densities. No new nodules identified. No thoracic lymphadenopathy 08/25/2024 CT ABD/PEL W IVCON IMPRESSION: Decreased left adnexal cystic mass in right adnexal solid mass. Stable left upper quadrant peritoneal thickening. HEALTH MAINTENANCE: Last pap smear: 02/06/2017 - Negative Last mammogram: 07/07/2023 - Negative Last colonoscopy: 11/22/2015 normal SUBJECTIVE/INTERVAL HISTORY: Patient is feeling well and denies shortness of breath, nausea, vomiting, constipation, problems urinating, unexplained weight loss, or vaginal bleeding. Ayah West MA September 07, 2024 10:21 AM OBJECTIVE: BP 112/69 Pulse 79 Temp 36.2 C (97.1 F) Ht 165.1 cm (5' 5) Wt 57.1 kg (125 lb 14.1 oz) SpO2 100% BMI 20.95 kg/m Female in no acute distress. Neck - Negative. Supraclavicular - Adenopathy absent. Cardiac - Regular rate and rhythm without murmur or gallop. Carotids 2+ without bruits. Respiratory - Clear to ausculation bilaterally. Abdominal - No CVA tenderness. The bowel sounds are positive. The abdomen is soft and nontender. [employer] for exam: Tess Amaya RN The sensitive examination was discussed with the Patient or Patient's Authorized Asset Protection Representative. Asapplicable, any other physician, advance practice provider, medical student, or other health professional student that will be observing or involved in the sensitive examination for educational or training purposes was discussed with the Patient or Authorized Asset Protection Representative. The Patient or Authorized Asset Protection Representative has agreed to proceed with the sensitive examination. 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 - Discussed favorable response to neoadjuvant chemotherapy and a plan for interval debulking and possible colostomy takedown. Patient agreed to proceed and an informed consent was signed. - Consent signed today - Open surgery, remove the uterus, cervix, tubes, ovaries possible removal of lymph nodes, omentum, biopsies, tumor, possible bowel resection, possible takedown of ostomy, possible blood product transfusion ATTESTATION: By signing my name below, Hayley Noyola, attest that this documentation has been prepared under the direction and in the presence of Fredis Buckner MD. Electronically signed: Narciso Good, September 07, 2024 11:12 AM Provider Attestation: Fredis Noyola MD, personally performed the services described in this documentation. All medicalrecord entries made by the scribe were at my direction and in my presence. I have reviewed the chart and discharge instructions (if applicable) and agree that the record reflects my personal performance and is accurate and complete. Fredis Buckner MD September 08, 2024 5:00 AM I have confirmed and edited as necessary, the history of the present illness (HPI). Interval changes in the history of present illness are noted. I have confirmed and edited as necessary, the PFSH and ROS obtained by others. I saw the patient and personally participated in the saenz components and agree with the documented findings and plan. Sincerely, Fredis Buckner M.D. Reviewed and corrected by Fredis Buckner M.D. The previous note written by Dr. Buckner dated 07/16/2024 was copied forward and the necessary changeswere made. CC: Nile Hall, DO Medical Decision Making: Problems: High: Illness/injury w/ threat to life/body function Data: Unique test result(s) reviewed: 3+ Unique test(s) ordered: 3+ Risk: High: Decision on elective major surgery w/ risk factors Medical Decision Making Level: 5 - High documented in this encounterFost[facility]12-[facility] Instructions* Patient Instructions* Nena Minor PA-C - 09/07/2024 9:34 AM EST Images from the original note were not included. [facility] PATIENT PREOPERATIVE INSTRUCTIONS No ref. provider found has scheduled you for your procedure at this surgery center: [facility] [place] Scheduling Office: --[address] [place] [address]. Please read below carefully for your personalized instructions. Dietary Restrictions: - No solid food after midnight. - You may have 12 ounces of clear liquids (water, clear juices such as apple juice or gatorade, carbonated beverages, clear tea, black coffee, jello) until 2 hours before scheduled arrival at facility. Medications: Unless instructed differently below, stay on all of your medications until your surgery. If you start any new medications after today's visit, please contact your surgeon. Pre-Surgery Med Instructions Medication Instructions dicyclomine (BENTYL) 10 mg capsule Do not take the day of surgery If you start any new medications after today's visit, please contact the surgeon's office. If you are currently using a [id number] injectable or oral medication for diabetes or weight loss such as Dulaglutide (Trulicity), Exenatide (Byetta, Bydureon), Liraglutide (Victoza, Saxenda), Semaglutide (Ozempic, Wegovy, Rybelsus), or Tirzepatide (Mounjaro), the medicine should be stopped at least 7 days before surgery. These medicines can cause food to remain in your stomach for a very longtime and increase the risks from surgery and anesthesia. Not stopping the medication for a long enough time may result in your surgery being rescheduled. Blood Thinning Medications: - Stop NSAIDS (Ibuprofen, Advil, Aleve, Motrin, Celebrex, Mobic, etc.) 7 days before surgery, as directed by your surgeon. - Stop Aspirin 7 days before surgery, as directed by your surgeon. - Stop ALL herbal and dietary supplements 7 days before surgery. - You may take Tylenol (Acetaminophen) or any of your pain medications that do not contain aspirin or NSAIDS as needed. Important Reminders: - If you use CPAP/BIPAP, bring the machine with you to the surgery center. - If you are prescribed inhalers for breathing, continue using them. If you are on dialysis, please check with your dialysis center or all around gear machine operator to see if any adjustments need to be made to your schedule for the week of your surgery - Candy, mints, and tobacco products are NOT permitted the morning of surgery. - Hearing aids, dentures and glasses may be worn the morning of surgery. - NO jewelry, body piercings, makeup, hairpins or contacts are to be worn the day of surgery. If you develop symptoms such as a fever, cold, or flu, or have other changes to your health within TWO DAYS of scheduled surgery or the morning of surgery, please contact the surgery center above. Personal Belongings: -Please have photo ID and insurance cards. -If you do not have a copy of advance directives on file with us, please bring a copy with you on the day of surgery. - Leave ALL valuables and money at home or with family members. For Outpatient Procedures: - YOU MUST HAVE A RESPONSIBLE CLINIC PHYSICIAN TAKE YOU HOME. A PLASTIC EXTRUDING MACHINE OPERATOR OR CLAIMS ASSOCIATE CANNOT BE MADE A RESPONSIBLE CLINIC PHYSICIAN. - We recommend that a responsible person stays with you overnight to take care of you. - You cannot stay in a hotel alone after outpatient surgery. You will not be permitted to have yoursurgery, if you do not have someone to take care of you. Arrival Time for Surgery: - To obtain your arrival time for surgery, call your physician's office the day before your surgery. - If your surgery is scheduled for Friday, call the Friday before. Your surgeon s ferryboat captain will tell you what time to call the office. - If you have not reached the departmental ferryboat captain by 5 P.M., call [phone] after 5 P.M. the day before your surgery. Please be aware that emergency situations arise, which may delay or change your surgical time. If this happens, we will notify you as soon as possible and regret any inconvenience. If you already have an Advance Directive, please fax a copy to [phone] or email to for it to be added to your chart. If you do not have an Advance Directive, you can find the appropriate form and more information at [email or web address]. We recommend that youcomplete the Advance Directive form found on the website and bring it with you the day of your surgery. It can be witnessed and scanned into your chart that day. Nena Minor PA-C documented in this encounterFostoria City [facility]12-03-2024 History and physical note * Nena Minor PA-C - 09/07/2024 9:26 AM EST Images from the original note were not included. [facility] Pre[facility]est[facility] HISTORY AND PHYSICAL EXAMINATION SERVICE DATE: 09/07/2024 SERVICE TIME: 9:30 AM PRIMARY CARE PHYSICIAN: Romel Michelle MD Assessment Patient has the following medical conditions which may affect haley-operative course: Irritable bowel syndrome with diarrhea Stable, manages sx with Bentyl and loperamide. [place] Activity Status Index: METS: Walk indoors, such as around the house (1.75 METs) Do light work around the house, such as dusting or washing dishes (2.70 METs) Take care of self; that is eating, dressing, bathing, using the toilet (2.75 METs) Walk a block or two on level ground (2.75 METs) Do moderate work around the house, such as vacuuming, sweeping floors, or carrying in groceries (3.50 METs) Do yardwork, such as raking leaves, weeding, or pushing a power mower (4.50 METs) Climb a flight of stairs or walk up a hill (5.50 METs) DASI Score: 23.45 (Walking daily ) Patient denies any chest pain or undue shortness of breath with the above physical activity. Clinical Frailty Scale: 4. Apparently vulnerable STOP-Bang Score: Patient over 50 years old Denies snoring loudly Denies feeling tired, fatigued, or sleepy during the daytime Has not been observed to stop breathing or choking/gasping during sleep Denies having high blood pressure BMI less than or equal to 35 kg/m^2 Does not have a large neck Non-male patient STOP-Bang Score: 1 ANESTHESIA FINDINGS: Intubation History: No abnormal airway history Significant Anesthesia Considerations: none Airway History: No abnormal airway history I - PHYSICAL EVALUATION AIRWAY Patient intubated: No. Tracheostomy tube not present Mallampati: II. TM distance: >3 FB. Neck ROM: full ROM without neurological symptoms. Mouth opening: adequate. Short neck: no. Thick neck: no Lip Bite Test: I Microretrognathia/Micronagthia/Recessed Chin: No DENTAL Dental findings: teeth intact. Additional comments: +crowns. II - ANESTHESIA PLAN Beta Philip Monitoring Plan Post Procedure Analgesic Plan Prepared for surgery: Pt optimally prepared for surgery, pending day of surgery review of labs . Patient was evaluated in [facility] the day before surgery. CONSULTS: Patient does not require consults for optimization at this time. The Following Tests/Procedures Have Been Initiated: Labs per surgical service Planned Anesthetic: Per anesthesia choice REASON FOR VISIT: Sal Bautista is a 74 year old female who is scheduled for Bilateral - DEBULKING SALPINGO-OOPHORECTOMY, OMENTECTOMY, TOTAL ABDOMINAL HYSTERECTOMY AND RADICAL DISSECTION W/ LIMITED PARA-AORTIC LYMPHADENECTOMY, BILATERAL at the request of for consultation. My final recommendation will be communicated back to the requesting physician by way of shared medical record or letter. Subjective CHIEF COMPLAINT: Pre-op exam HPI: Sal Bautista is a 74 year old female who presents to [facility] for the above procedure. Patient reports history of High grade ovarian cancer. Denies any CP, SOB, fever, chills, n/v/d, or dizziness. Recommended above procedure and elects to proceed. Patient is scheduled for procedure on 09/08/2024 at [facility]. REVIEW OF SYSTEMS: General: No weight loss, malaise or fevers. Neurological: No history of TIA's, stroke, STORE HOST tumor, impaired sensorium, hemiplegia, paraplegia orquadraplegia. No neurological symptoms or problems. Respiratory: No history of current cough or dyspnea, or pneumonia in the past 6 weeks. No history of respiratory/pulmonary symptoms or problems. Cardiovascular: No history of HTN requiring medication, no history of angina, CHF, OR, cardiac surgery or stents. Denies rest pain, gangrene or revascularization/amputation for PVD. No history of cardiovascular symptoms or problems. GI: +IBS Denies Abdominal Pain, difficulty swallowing, liver disease or blood in the stool. : No history of dysuria, frequency or incontinence, stones or chronic kidney disease. No difficulty urinating, nocturia > 1 time per night or hematuria. Endocrine: No history of diabetes. Has not taken steroids within the past 30 days. No history of endocrinological symptoms or problems. Hematology: No history of bleeding or clotting disorder. Patient is not taking anti-coagulation or platelet medications. No history of hematological symptoms or problems. Oncology: See HPI. Psych: No history of psychiatric symptoms or problems. Musculoskeletal: Negative for joint pain or swelling, back pain or muscle pain. Skin: Negative for lesions, rash and itching. 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 left sterotactic COLONOSCOPY FLX DX W/COLLJ SPEC WHEN PFRMD 03/09/2012 Colonoscopy COLONOSCOPY FLX DX W/COLLJ SPEC WHEN PFRMD 11/22/2015 Colonoscopy (MAC) ESOPHAGOGASTRODUODENOSCOPY TRANSORAL DIAGNOSTIC 11/22/2015 EGD (MAC) ILEOSTOMY 04/2024 FAMILY HISTORY Problem Relation Age of Onset None Mother None Father Pancreatitis Brother Breast Cancer Maternal Aunt Anesthesia Problems No Family History SOCIAL HISTORY: Social History Tobacco Use Smoking status: Never Smokeless tobacco: Never Vaping Use Vaping status: Never Used Substance Use Topics Alcohol use: Yes Comment: social Drug use: No Prior to Admission medications as of 08/12/24 0817 Medication Sig Last Dose Taking dicyclomine (BENTYL) 10 mg capsule Take 1 or 2 before meals, as needed. Patient taking differently: Take 10 mg by mouth three times a day as needed (abdominal cramping). Take 1 or 2 before meals, as needed. Taking Yes metroNIDAZOLE (FLAGYL) 500 mg tablet Take 4 tablets by mouth as directed. Take 4 tablets at 7pm and4 tablets at 11pm the night before surgery neomycin 500 mg tablet Take 4 tablets by mouth as directed. Take 4 tablets at 7pm and 4 tablets at 11pm the night before surgery Bisacodyl (DULCOLAX) 5 mg tab Take 1 tablet by mouth as directed. Take 2 tablets at 3pm the day before surgery polyethylene glycol 3350 (MIRALAX) 17 gram/dose powder Purchase one 238 gram bottle of Miralax Use as directed iv contrast (will be provided with radiology test) CT Chest W -Inject, intravenously, once for 1 dose.No IV access, insert saline lock prior to the beginning of sedation, infusion, injection of imaging exam. Discontinue saline lock post exam. If Pt. has a central line or IVAD, may access for administration according to line specific nursing protocol. Once exam is complete flush line and de-accessaccording to line specific nursing protocol in the CT contrast administration guidelines link. Patient not taking: Reported on 07/16/2024 iv contrast (will be provided with radiology test) CT ABD/PEL -Inject, intravenously, once for 1 dose.No IV access, insert saline lock prior to the beginning of sedation, infusion, injection of imaging exam. Discontinue saline lock post exam. If Pt. has a central line or IVAD, may access for administration according to line specific nursing protocol. Once exam is complete flush line and de-accessaccording to line specific nursing protocol in the CT contrast administration guidelines link. Patient not taking: Reported on 07/16/2024 enteric contrast (will be provided with radiology test) For CT ABD/PEL W IVCON Routine order Administer, As Directed One Time Only, via Oral, Rectal, both Oral and Rectal, Enteric Tube, Stoma or Indwelling Catheter, Enteric Contrast as designated per enteric contrast guidelines Patient not taking: Reported on 07/16/2024 dexAMETHasone (DECADRON) 4 mg tablet Take 5 tablets 12 and 6 hours prior to chemotherapy treatment. ondansetron orally disintegrating (ZOFRAN ODT) 8 mg disintegrating tablet Take 1 tablet by mouth every 8 hours as needed for nausea/vomiting. prochlorperazine (COMPAZINE) 10 mg tablet Take 1 tablet by mouth every 6 hours as needed. acetaminophen (TYLENOL EXTRA STRENGTH) 500 mg tablet Take 1,000 mg by mouth every 6 hours as neededfor pain. nutritional supplement ([employer] STANDARD 1.4) 0.06 G - 1.4 Kcal/mL oral liquid Take 325 mL by mouth three times a day. alendronate (FOSAMAX) 70 mg tablet Take 1 tablet by mouth one time a week. Take with a full glass of water, on an empty stomach; do NOT lie down for 30minutes. Patient not taking: Reported on 06/08/2024 Cholecalciferol, Vitamin D3, 50 mcg (2,000 unit) cap Take 1 capsule by mouth once daily. Patient not taking: Reported on 06/08/2024 Loperamide HCl (ANTI-DIARRHEAL) 2 mg tab Take 1 tablet by mouth as needed. No medication comments found. ALLERGIES No Known Allergies Covid Immunization Dates Covid-19 Vaccine () Next due on 10/01/2024 08/06/2024 Imm Admin: COVID-19 vaccine, age 12+ yr ([employer] [facility]) 07/15/2023 Postponed until 07/19/2023 by Romel Michelle MD (Declined at this time - Getting at pharmacy) 08/07/2022 Imm Admin: COVID-19 vaccine, age 12+ yr, bivalent (MODERNA) 06/28/2022 Postponed until 06/28/2023 by Tyesha Gibson MA (Declined at this time) 04/26/2022 Imm Admin: COVID-19 original vaccine, full dose, monovalent (MODERNA) Only the first 5 history entries have been loaded, but more history exists. Objective PAIN ASSESSMENT: VITALS: BP 129/80 Pulse 82 Temp (Src) 97.3 (Oral) Ht 5' 5 (1.65m) Wt 126 lb 1.7 oz (57.2kg) [id number]% BMI 20.98 kg/(m^2). PHYSICAL EXAM: General: alert and oriented and healthy appearance. Pertinent negatives noted - not distressed. Skin: normal color, no rash or lesions. HEENT: EOM intact and pupils equal round. Cardiovascular: regular rate and rhythm, normal S1 and S2, no rub, murmurs, or gallop. Respiratory: normal breath sounds, no wheezes or crackles. No chest wall deformity or tenderness. Abdomen: bowel sounds present. Extremities: no deformity, no edema or tenderness, no joint swelling or clubbing. Neurological: normal cognition and motor skills. Diagnostic tests reviewed for today's visit: Lab Value Units Date High Low HB 11.0 g/dL 08/12/2024 15.5 11.5 HCT 32.9 % 08/12/2024 46.0 36.0 WBC 2.92 k/uL 08/12/2024 11.00 3.70 PLT 217 k/uL 08/12/2024 400 150 NA 140 mmol/L 08/11/2024 144 136 K 3.4 mmol/L 08/11/2024 5.1 3.7 GLUC 94 mg/dL 08/11/2024 99 74 BUN 17 mg/dL 08/11/2024 21 7 CREAT 0.82 mg/dL 08/11/2024 0.96 0.58 PTSEC 11.0 sec 03/22/2024 13.0 9.7 INR 1.0 no uni* 03/22/2024 1.3 0.9 APTT 23.6 sec 03/22/2024 32.4 23.0 ALT 17 U/L 08/11/2024 38 7 AST 18 U/L 08/11/2024 35 13 TBILI <0.2 mg/dL 08/11/2024 1.3 0.2 TSH No results within date range. Lab Value Units Date High Low HCGQT No results within date range. UHCG No results within date range. HCG, BODY* No results within date range. Lab Value Units Date High Low ABORHD No results within date range. ABSCREEN No results within date range. No results found for: HBA1C Recent Results (from the past 8760 hour(s)) ECG COMPLETE Collection Time: 04/02/24 2:17 PM Result Value Ventricular Rate 84 Atrial Rate 84 P-R Interval 152 QRS Duration 68 QT Interval 374 QTC Calculation (Bazett) 441 Calculated P [place] 67 Calculated R [place] 59 Calculated T [place] 60 Impression NORMAL SINUS RHYTHM POSSIBLE LEFT ATRIAL ENLARGEMENT ST ABNORMALITY, POSSIBLE DIGITALIS EFFECT ABNORMAL ECG No results found for this or any previous visit (from the past 64747 hour(s)). Spirometry Data No data to display Instructions Given to Patient: Instructions located in the after visit summary. Patient given verbal and written preop instructions and voices comprehension and compliance. SIGNATURE: Nena Minor PA-C PATIENT NAME: Sal Bautista DATE: 09/07/2024 TIME: 9:42 AM [facility]12-03-2024 History and physical note* Nena Minor PA-C - 09/07/2024 9:26 AM EST Images from the original note were not included. [facility] HISTORY AND PHYSICAL EXAMINATION SERVICE DATE: 09/07/2024 SERVICE TIME: 9:30 AM PRIMARY CARE PHYSICIAN: Romel Michelle MD Assessment Patient has the following medical conditions which may affect haley-operative course: Irritable bowel syndrome with diarrhea Stable, manages sx with Bentyl and loperamide. [place] Activity Status Index: METS: Walk indoors, such as around the house (1.75 METs) Do light work around the house, such as dusting or washing dishes (2.70 METs) Take care of self; that is eating, dressing, bathing, using the toilet (2.75 METs) Walk a block or two on level ground (2.75 METs) Do moderate work around the house, such as vacuuming, sweeping floors, or carrying in groceries (3.50 METs) Do yardwork, such as raking leaves, weeding, or pushing a power mower (4.50 METs) Climb a flight of stairs or walk up a hill (5.50 METs) DASI Score: 23.45 (Walking daily ) Patient denies any chest pain or undue shortness of breath with the above physical activity. Clinical Frailty Scale: 4. Apparently vulnerable STOP-Bang Score: Patient over 50 years old Denies snoring loudly Denies feeling tired, fatigued, or sleepy during the daytime Has not been observed to stop breathing or choking/gasping during sleep Denies having high blood pressure BMI less than or equal to 35 kg/m^2 Does not have a large neck Non-male patient STOP-Bang Score: 1 ANESTHESIA FINDINGS: Intubation History: No abnormal airway history Significant Anesthesia Considerations: none Airway History: No abnormal airway history I - PHYSICAL EVALUATION AIRWAY Patient intubated: No. Tracheostomy tube not present Mallampati: II. TM distance: >3 FB. Neck ROM: full ROM without neurological symptoms. Mouth opening: adequate. Short neck: no. Thick neck: no Lip Bite Test: I Microretrognathia/Micronagthia/Recessed Chin: No DENTAL Dental findings: teeth intact. Additional comments: +crowns. II - ANESTHESIA PLAN Beta Philip Monitoring Plan Post Procedure Analgesic Plan Prepared for surgery: Pt optimally prepared for surgery, pending day of surgery review of labs . Patient was evaluated in [facility] the day before surgery. CONSULTS: Patient does not require consults for optimization at this time. The Following Tests/Procedures Have Been Initiated: Labs per surgical service Planned Anesthetic: Per anesthesia choice REASON FOR VISIT: Sal Bautista is a 74 year old female who is scheduled for Bilateral - DEBULKING SALPINGO-OOPHORECTOMY, OMENTECTOMY, TOTAL ABDOMINAL HYSTERECTOMY AND RADICAL DISSECTION W/ LIMITED PARA-AORTIC LYMPHADENECTOMY, BILATERAL at the request of for consultation. My final recommendation will be communicated back to the requesting physician by way of shared medical record or letter. Subjective CHIEF COMPLAINT: Pre-op exam HPI: Sal Bautista is a 74 year old female who presents to [facility] for the above procedure. Patient reports history of High grade ovarian cancer. Denies any CP, SOB, fever, chills, n/v/d, or dizziness. Recommended above procedure and elects to proceed. Patient is scheduled for procedure on 09/08/2024 at [facility]. REVIEW OF SYSTEMS: General: No weight loss, malaise or fevers. Neurological: No history of TIA's, stroke, STORE HOST tumor, impaired sensorium, hemiplegia, paraplegia orquadraplegia. No neurological symptoms or problems. Respiratory: No history of current cough or dyspnea, or pneumonia in the past 6 weeks. No history of respiratory/pulmonary symptoms or problems. Cardiovascular: No history of HTN requiring medication, no history of angina, CHF, OR, cardiac surgery or stents. Denies rest pain, gangrene or revascularization/amputation for PVD. No history of cardiovascular symptoms or problems. GI: +IBS Denies Abdominal Pain, difficulty swallowing, liver disease or blood in the stool. : No history of dysuria, frequency or incontinence, stones or chronic kidney disease. No difficulty urinating, nocturia > 1 time per night or hematuria. Endocrine: No history of diabetes. Has not taken steroids within the past 30 days. No history of endocrinological symptoms or problems. Hematology: No history of bleeding or clotting disorder. Patient is not taking anti-coagulation or platelet medications. No history of hematological symptoms or problems. Oncology: See HPI. Psych: No history of psychiatric symptoms or problems. Musculoskeletal: Negative for joint pain or swelling, back pain or muscle pain. Skin: Negative for lesions, rash and itching. 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 left sterotactic COLONOSCOPY FLX DX W/COLLJ SPEC WHEN PFRMD 03/09/2012 Colonoscopy COLONOSCOPY FLX DX W/COLLJ SPEC WHEN PFRMD 11/22/2015 Colonoscopy (MAC) ESOPHAGOGASTRODUODENOSCOPY TRANSORAL DIAGNOSTIC 11/22/2015 EGD (MAC) ILEOSTOMY 04/2024 FAMILY HISTORY Problem Relation Age of Onset None Mother None Father Pancreatitis Brother Breast Cancer Maternal Aunt Anesthesia Problems No Family History SOCIAL HISTORY: Social History Tobacco Use Smoking status: Never Smokeless tobacco: Never Vaping Use Vaping status: Never Used Substance Use Topics Alcohol use: Yes Comment: social Drug use: No Prior to Admission medications as of 08/12/24 0817 Medication Sig Last Dose Taking dicyclomine (BENTYL) 10 mg capsule Take 1 or 2 before meals, as needed. Patient taking differently: Take 10 mg by mouth three times a day as needed (abdominal cramping). Take 1 or 2 before meals, as needed. Taking Yes metroNIDAZOLE (FLAGYL) 500 mg tablet Take 4 tablets by mouth as directed. Take 4 tablets at 7pm and4 tablets at 11pm the night before surgery neomycin 500 mg tablet Take 4 tablets by mouth as directed. Take 4 tablets at 7pm and 4 tablets at 11pm the night before surgery Bisacodyl (DULCOLAX) 5 mg tab Take 1 tablet by mouth as directed. Take 2 tablets at 3pm the day before surgery polyethylene glycol 3350 (MIRALAX) 17 gram/dose powder Purchase one 238 gram bottle of Miralax Use as directed iv contrast (will be provided with radiology test) CT Chest W -Inject, intravenously, once for 1 dose.No IV access, insert saline lock prior to the beginning of sedation, infusion, injection of imaging exam. Discontinue saline lock post exam. If Pt. has a central line or IVAD, may access for administration according to line specific nursing protocol. Once exam is complete flush line and de-accessaccording to line specific nursing protocol in the CT contrast administration guidelines link. Patient not taking: Reported on 07/16/2024 iv contrast (will be provided with radiology test) CT ABD/PEL -Inject, intravenously, once for 1 dose.No IV access, insert saline lock prior to the beginning of sedation, infusion, injection of imaging exam. Discontinue saline lock post exam. If Pt. has a central line or IVAD, may access for administration according to line specific nursing protocol. Once exam is complete flush line and de-accessaccording to line specific nursing protocol in the CT contrast administration guidelines link. Patient not taking: Reported on 07/16/2024 enteric contrast (will be provided with radiology test) For CT ABD/PEL W IVCON Routine order Administer, As Directed One Time Only, via Oral, Rectal, both Oral and Rectal, Enteric Tube, Stoma or Indwelling Catheter, Enteric Contrast as designated per enteric contrast guidelines Patient not taking: Reported on 07/16/2024 dexAMETHasone (DECADRON) 4 mg tablet Take 5 tablets 12 and 6 hours prior to chemotherapy treatment. ondansetron orally disintegrating (ZOFRAN ODT) 8 mg disintegrating tablet Take 1 tablet by mouth every 8 hours as needed for nausea/vomiting. prochlorperazine (COMPAZINE) 10 mg tablet Take 1 tablet by mouth every 6 hours as needed. acetaminophen (TYLENOL EXTRA STRENGTH) 500 mg tablet Take 1,000 mg by mouth every 6 hours as neededfor pain. nutritional supplement ([employer] STANDARD 1.4) 0.06 G - 1.4 Kcal/mL oral liquid Take 325 mL by mouth three times a day. alendronate (FOSAMAX) 70 mg tablet Take 1 tablet by mouth one time a week. Take with a full glass of water, on an empty stomach; do NOT lie down for 30minutes. Patient not taking: Reported on 06/08/2024 Cholecalciferol, Vitamin D3, 50 mcg (2,000 unit) cap Take 1 capsule by mouth once daily. Patient not taking: Reported on 06/08/2024 Loperamide HCl (ANTI-DIARRHEAL) 2 mg tab Take 1 tablet by mouth as needed. No medication comments found. ALLERGIES No Known Allergies Covid Immunization Dates Covid-19 Vaccine ( season) Next due on 10/01/2024 08/06/2024 Imm Admin: COVID-19 vaccine, age 12+ yr ([email or web address] COMIRNATY) 07/15/2023 Postponed until 07/19/2023 by Romel Michelle MD (Declined at this time - Getting at pharmacy) 08/07/2022 Imm Admin: COVID-19 vaccine, age 12+ yr, bivalent (MODERNA) 06/28/2022 Postponed until 06/28/2023 by Tyesha Gibson MA (Declined at this time) 04/26/2022 Imm Admin: COVID-19 original vaccine, full dose, monovalent (MODERNA) Only the first 5 history entries have been loaded, but more history exists. Objective PAIN ASSESSMENT: VITALS: BP 129/80 Pulse 82 Temp (Src) 97.3 (Oral) Ht 5' 5 (1.65m) Wt 126 lb 1.7 oz (57.2kg) QyT2472% BMI 20.98 kg/(m^2). PHYSICAL EXAM: General: alert and oriented and healthy appearance. Pertinent negatives noted - not distressed. Skin: normal color, no rash or lesions. HEENT: EOM intact and pupils equal round. Cardiovascular: regular rate and rhythm, normal S1 and S2, no rub, murmurs, or gallop. Respiratory: normal breath sounds, no wheezes or crackles. No chest wall deformity or tenderness. Abdomen: bowel sounds present. Extremities: no deformity, no edema or tenderness, no joint swelling or clubbing. Neurological: normal cognition and motor skills. Diagnostic tests reviewed for today's visit: Lab Value Units Date High Low HB 11.0 g/dL 08/12/2024 15.5 11.5 HCT 32.9 % 08/12/2024 46.0 36.0 WBC 2.92 k/uL 08/12/2024 11.00 3.70 PLT 217 k/uL 08/12/2024 400 150 NA 140 mmol/L 08/11/2024 144 136 K 3.4 mmol/L 08/11/2024 5.1 3.7 GLUC 94 mg/dL 08/11/2024 99 74 BUN 17 mg/dL 08/11/2024 21 7 CREAT 0.82 mg/dL 08/11/2024 0.96 0.58 PTSEC 11.0 sec 03/22/2024 13.0 9.7 INR 1.0 no uni* 03/22/2024 1.3 0.9 APTT 23.6 sec 03/22/2024 32.4 23.0 ALT 17 U/L 08/11/2024 38 7 AST 18 U/L 08/11/2024 35 13 TBILI <0.2 mg/dL 08/11/2024 1.3 0.2 TSH No results within date range. Lab Value Units Date High Low HCGQT No results within date range. UHCG No results within date range. HCG, BODY* No results within date range. Lab Value Units Date High Low ABORHD No results within date range. ABSCREEN No results within date range. No results found for: HBA1C Recent Results (from the past 8760 hour(s)) ECG COMPLETE Collection Time: 04/02/24 2:17 PM Result Value Ventricular Rate 84 Atrial Rate 84 P-R Interval 152 QRS Duration 68 QT Interval 374 QTC Calculation (Bazett) 441 Calculated P [place] 67 Calculated R [place] 59 Calculated T [place] 60 Impression NORMAL SINUS RHYTHM POSSIBLE LEFT ATRIAL ENLARGEMENT ST ABNORMALITY, POSSIBLE DIGITALIS EFFECT ABNORMAL ECG No results found for this or any previous visit (from the past 90081 hour(s)). Spirometry Data No data to display Instructions Given to Patient: Instructions located in the after visit summary. Patient given verbal and written preop instructions and voices comprehension and compliance. SIGNATURE: Nena Minor PA-C PATIENT NAME: Sal Bautista DATE: 09/07/2024 TIME: 9:42 AM [facility] Instructions* Patient Instructions* Kellie HusseinJASMYN - 09/03/2024 10:31 AM EST Images from the original note were not included. PCU RN ONCOLOGY PHYSICIAN CONTACT INFORMATION [place] [phone] Surgeons: Dr. Beckie Buckner Per Diem Registered Nurse Oncology advanced practice providers: DANDRE Ford APRN.CNP Stephanie Hrnchar, APRN.CNP After 4:30 pm or on holidays or weekends, call: or . Ask the operatorto page the floor layer helper oncologist pollution control technician. PRE-OPERATIVE CHECKLIST: PATIENT INSTRUCTIONS PRIOR TO SURGERY Our guidelines have changed, so please read these instructions carefully. Your surgery may be cancelled if you do not follow these instructions. MY ARRIVAL TIME IS: I have been instructed not to have any solid food to eat after midnight prior to my surgery (this includes no gum, mints, smoking). I am allowed to drink small amounts (up to 12 oz) of clear liquids up until 2 hours prior to my arrival time. Clear liquids include water, fruit juices without pulp, carbonated beverages (i.e. isadora kell), electrolyte beverages (i.e. Gatorade), clear tea and black coffee, clear broth, popsicles and jello. (No milk). No alcohol the day before or day of surgery. I will bring this binder to all pre and post-operative appointments AND day of surgery. MEDICATION STOPPAGE: Unless my surgeon tells me differently, I will STOP THESE MEDICATIONS 7 DAYS PRIOR TO SURGERY: (Motrin/ibuprofen/Naproxen/Aleve/Advil), Aspirin, vitamin E, herbal medications, diet pills, and ezkx-ley-hmlwoft medications. Tylenol (acetaminophen) is okay. I will not wear jewelry, body piercing(s), makeup, nail argentine, hairpins, or contacts on the day ofsurgery. I am to leave valuables and money at home or with family members. If I am prescribed inhalers for breathing, I will use them and bring them to the hospital. Medication(s) to be taken on the morning of surgery with a few sips of water: If I am taking any of the following blood thinning medications - Aspirin, clopidogrel (Plavix), ticagrelor (Brilinta), prasugrel (Efficient), ticlodipine (Ticlid), warfarin (Coumadin), dibigatran (Pradaxa) or rivaroxaban (Xarelto) - I will discuss whether or not I should stop them before surgery with my surgeon. Discuss medication changes with your returned case inspector or primary care physician as well. If I stopped taking my blood-thinning medication, I will ask the surgeon when to resume taking it. If I am an outpatient, a responsible person will drive me home and it was suggested that someone stay with me for 24 hours. I understand that a chief business officer or cabdriver is NOT a responsible caregiver. Patients with diabetes,I will not take my morning diabetes medication (pills) on the morning of surgery. If I am on insulin, someone has gone over those instructions with me for the morning of surgery. I understand if my surgery is delayed, I will notify the check in desk that I have diabetes. See the Diabetic GuidelinesBefore Surgery in the patient education section. If I have Obstructive Sleep Apnea and use a CPAP/BiPAP machine, I will bring my mask, tubing, and machine with me on the day of surgery. Pain management education material found in Your Surgical Guide was reviewed with me. To find out my arrival time for surgery, I must call my director surgical after 2pm the day beforesurgery. Pre-operative instructions given by: PREOP INSTRUCTIONS CLEAR LIQUID DIET & Antibiotic Bowel Prep You may eat a light breakfast on the DAY BEFORE SURGERY. Examples include oatmeal, cereal and milk,toast, and eggs. After breakfast, you may continue to drink clear liquids for the rest of the day until midnight. Examples of clear liquids include: Water Fruit juice without pulp (i.e. apple, grape, cranberry) Clear broth (i.e. chicken, beef, vegetable) Coffee or tea without cream or milk Sports drinks (i.e. Gatorade, Propel) Soda (i.e. Coke, isadora kell, 7-up, etc) Philip-Aid or Crystal Light Plain Jell-O (without fruit or whipped topping) Popsicles Or any other clear liquid (no dairy products) DO NOT eat any solid food after midnight. On the DAY OF SURGERY, you may have up to 12 oz of clear liquids up until 2 hours prior to your surgery arrival time. Failure to follow these instructions could potentially lead to the cancellation of your surgery. Please contact your surgeon's office if you have any specific questions regarding your diet instructions. Please follow antibiotic bowel prep as prescribed on the medication bottle. THE DAY OF SURGERY/CHECK IN Report to DESK 1-9 for surgery. A map is located in Your Surgical Guide Book. The online version of the surgical guide book can be found at: [email or web address] The address is [address] [place] [address]/[place] [address] INFECTION PREVENTION Please notify your doctor if you have any signs of an infection (i.e. fever, severe cough, nasal congestion, pain with urination, abnormal vaginal discharge, diarrhea, etc). Your surgeon will let you know if a bowel prep is needed before your surgery. If so, please see theattached instructions. Shower the night before surgery AND the morning of surgery with Hibiclens (provided by your surgeon). If you are allergic to Hibiclens or unable to obtain the Hibiclens, please wash with antibacterial soap. Wash your body from the neck down, focusing on your abdomen, belly button and external genitalia. Do not forget to scrub any skin folds and creases. No lotions, oils, creams, or powders after your shower. Underarm deodorant is okay. No shaving (abdominal or pubic hair) or douching the day before surgery. You may be asked to apply an antiseptic solution called Chlorhexidine Gluconate (CHG) which will beprovided to you on arrival to the preop area. Hand washing is extremely important in preventing infection (for both you as the patient and for the caregivers). HOSPITALIZATION Before you leave the hospital, you typically need to be able to eat/drink, urinate, and have your pain controlled with oral medication. Your surgeon or other members of your surgeon s team will discuss any other specific medical issues related to your discharge with you. Your surgeon may order intermittent compression sleeves. These are massaging leg pumps to help prevent blood clots after surgery. See Your Surgical Guide Book for more information. It is also very important that you walk as soon as possible and as frequently as possible after surgery. This will help decrease your risk of blood clots, exercise your lungs and speed up your recovery after surgery. If you are admitted to the hospital overnight, you will be given an incentive spirometer, which is a breathing machine that will help make sure that you are taking deep breaths and expanding your lungs while in the hospital. See Your Surgical Guide Book for more information. [facility] TEAM At the [facility], we have a multidisciplinary team of caregivers that includes fellows, residents, nurse practitioners, physician assistants, clinical nurse specialists, nurses, medical assistants, patient care nursing assistants, social workers, rehabilitation caseworker and many others. We all have different roles and responsibilities but we are all here to help. POSTOP: ABDOMINAL SURGERY ACTIVITY No heavy lifting/pushing/pulling for 6-8 weeks. Do not lift anything more than about 10-15 lbs (such as laundry, groceries, children, pets), vacuum, push heavy doors or grocery carts, etc. You may climb stairs as tolerated. Do not put anything in the vagina for 6-8 weeks after surgery unless otherwise instructed by your doctor (including tampons, douching, sexual intercourse, etc). No driving for about 4 weeks after surgery, while you are taking narcotic pain medication, or untilyou feel that you are ready. Avoid sitting or lying in bed for more than 2 hours at a time while you are awake to reduce your risk of blood clots. Return to work when directed by your surgeon. Please contact your surgeon s office if any FMLA or other paperwork is needed. WOUND CARE Shower daily after surgery. Wash your incision with antibacterial soap (such as Dial). Pat your incision dry with a clean towel. No tub baths until wound is completely healed. If you have dave, they need to be removed about 10-14 days after surgery (sutures/surgical glue do not need to be removed). Keep incision clean, dry, and open to the air. Wash your hands frequently, especially before touching your incision, changing any dressings, afterusing the restroom, and before eating. PAIN MANAGEMENT You will be given prescriptions for a variety of pain medications (opioid and non-opioid) before you leave the hospital. Surgery will cause pain and everyone has a different pain tolerance. It is safer to find the right combination and amount of medicine to manage your pain. We recommend that you take the non-opioid medication (acetaminophen and ibuprofen) on a regular schedule after surgery. You can take these medications on an alternating schedule so that you are taking one or the other every 3-4 hours. The maximum total daily dose of acetaminophen is 4,000mg and the maximum totaldaily dose of ibuprofen is 2,400mg. Take the opioid prescription ONLY when your pain is severe and never take more pills or more frequent doses than prescribed. Opioids (narcotics) can cause serious side effects. The risks increase the longer they are used. Taking opioids may cause: constipation, drowsiness, itching, nausea/vomiting. More serious side effects of opioids may include: addiction or dependence, life threatening overdose, or dizziness leading to falls/injury. Keep your pain medication locked in a safe place. Never share your pain medication with others. If you have any remaining opioid pills after you recover from surgery, please bring them to a medication disposal station (located in many of the [facility] pharmacies). Do not flush them down the toilet. Constipation is a common problem after surgery. You should take a stool softener (i.e. colace) twice a day, especially if you are taking opioids. If a stool softener alone is not helping to manage your constipation, you can also take Miralax and/or milk of magnesia as needed. WHEN TO CALL THE DOCTOR Call your doctor if you have any of the following symptoms: Fever (>100.4 F or 38.0 C) or chills. Incision problems such as redness, warmth, swelling, or foul smelling drainage. Severe nausea or persistent vomiting. Bright red vaginal bleeding (soaking >1 pad/hour) or foul smelling vaginal drainage. Severe pain not relieved with pain medication. Pain and swelling in your legs, especially if it is only on one side and not the other. Pain with urination, cloudy urine, or foul smelling urine. Or if you have any other problems or questions. CALL 911 or go to the ED if you have any shortness of breath, difficulty breathing, or chest pain. Advance Directives Every adult has the right to direct their own medical care. Having an advance directive on file helps to ensure that you receive the care you want if a medical condition or injury renders you unable to make decisions or communicate. Forms can be found on the [facility] Advance Directives site. You do not need a service unit operator oil well to complete advance directive documents. [email or web address] Talking about end-of-life issues is difficult, but it truly is a gift to your loved ones. We suggest using The [employer]versation Project (theAbsolute Commerceationproject.org) to help guide you through discussing and thinking about your wishes/preferences, goals and values and completing your advance directive. After you complete the documents, talk to those people who may be involved with your healthcare decision making, and give them a copy of your forms to make sure your wishes are followed. Please bringa copy of your advance directive documents to your next appointment, or email to as an attachment in either PDF, TIFF, or JPEG format. You can also mail to: [facility] Health Information Management, Ab7 Advance Directive Processing [id number] [place], [place] [id number] documented in this encounterFostoria City Hospital11-29-20[address] NoteSt[facility] History of Present illness Narrative* Kellie Hussein LPN - 09/03/2024 10:21 AM EST DATE OF SERVICE: 09/03/2024 PROBLEM: Sal Bautista presents for pre-op teaching. PRE-OP DIAGNOSIS: High grade ovarian cancer (HCC) [C56.9] SCHEDULED SURGERY AND DATE: EUA, ex-lap, tumor debulking, possible bowel resection. PRIMARY SURGEON: Fredis Buckner MD NURSING PREOP ASSESSMENT: Fevers, chills, cough, or nasal congestion: No Vaginal itching, burning, discharge, or odor: No Pain with urination, frequency, urgency, cloudy or foul smelling urine: No If yes to any of the above then MD notified: Not Applicable ADVANCED CARE PLANNING: Does the patient have an advanced directive: No Does [facility] have a copy of the patient's advanced directive: No Was advanced directive given to the patient: No PATIENT LEARNING ASSESSMENT: Individual patient/family learning needs evaluated and addressed: Yes Cognitive ability: Alert and oriented Motivation to learn: Eager Interested Factors affecting learning: None Physical limitations affecting learning: None Patient learns best by: Multiple Methods Method of instruction: Individual instruction Written instruction/Handouts Verbal instruction Instructions provided to: Patient via telephone. Written material provided prior to education appointment. Family support: Unable to assess - Family not present PRE- AND POST-OPERATIVE TEACHING Pre-operative teaching and supplemental material provided and reviewed with patient: Your Surgical Guide Book Map Written pre-op and post-op instructions Antibacterial soap: patient will use own Pre-operative instructions provided and reviewed with patient/family: No eating, drinking, or smoking after midnight prior to surgery unless otherwise directed No alcohol the day before surgery Medications as prescribed by anesthesia, internal medicine, surgeon, or DIRECTOR OF NURSING Stop NSAIDs, Aspirin (ASA), vitamins, herbal supplements, herbal teas, and diet pills 7-10 days prior to surgery OK to take tylenol prn pain unless otherwise directed by physician Call surgery coordinators if any other questions about surgery date or pre-op appointments Bowel prep instructions: Clear liquid diet, antibiotic bowel prep Day of surgery instructions provided and reviewed with patient/family: Arrival time (call surgical coordinators on the office day prior to surgery for verification) No jewelry, body piercing, makeup, contacts, lotions, nail argentine on fingers, or anything in hair on arrival to surgery Wear low healed shoes and loose fitting clothing Leave all valuables at home or with a family member Directions to [facility] and [facility] Parking/parking validation on the day prior to surgery Admission/check in (Report to DESK J1-9 for surgery) Holding area Placement of IV Surgical positioning Family waiting area Surgical recovery room Post-operative instructions provided and reviewed with patient/family: SEE PATIENT INSTRUCTION SECTION FOR DETAILS. ACTIVITY - No heavy lifting (>5-10 lbs), no pushing/pulling, OK to climb stairs DRIVING - No driving for 3 weeks unless prior approval from MD, OK to ride in a car. DIET - Advance diet as tolerated and as ordered by , drink 8 glasses of water a day, eat a diet high in protein and fiber unless otherwise directed by MD. CATHETER - Will be inserted during surgery, you may go home with a catheter for 7-10 days and will have to come back to the office for a voiding trial, UTI symptoms reviewed and patient instructed melissa OCASIO of any of these symptoms. INCISION CARE - Keep incision clean and dry, dave to be removed 7-10 days after surgery, steristrips do not need to be removed by MD BATHING - OK to shower after surgery unless otherwise directed by MD, no tub baths. PAIN MEDICATION - IV pain medication after surgery, IV RIM FIRE PRIMING OPERATOR if ordered by MD, discharged home with aprescription for PO pain medication, pain management after surgery, side effects of pain medication(including constipation, dizziness, drowsiness, and medication interactions). VAGINAL CARE - Pelvic rest x6 weeks unless otherwise directed by MD. DVT PROPHYLAXIS - Early ambulation, SCDs, injectable anticoagulants (heparin, lovenox, etc) RESPIRATORY - Incentive spirometer, coughing/deep breathing exercises, ambulation. RETURN TO WORK - As directed by physician, please send any FMLA papers to physician's admin secretary. SYMPTOMS TO NOTIFY MD - Fever, chills, nausea, vomiting, increased or severe pain, heavy vaginal bleeding, foul smelling vaginal drainage, pain or swelling in extremities. URGENT SYMPTOMS - Call 911 or go to ER if any shortness of breath, difficulty breathing, or chest pain. HOW TO CONTACT PHYSICIAN - Physician's office phone number given to patient, if after hours patientinstructed to call brownell operator and ask for pollution control technician floor layer helper onc resident. ONESIMO program offered to patient: No. Additional teaching as indicated by patient/family learning needs. PATIENT LEARNING EVALUATION & FOLLOW UP PLAN: Patient and/or family express understanding of upcoming surgery, pre-operative preparation, the operative process, and post-operative instructions. Follow up plan: Complete - No need for follow-up Patient has a post-op appointment scheduled: Yes Referral (recommentation): None Educator: Kellie Hussein LPN [facility] documented in this encounterFostoria City Hospital11-27-2024 Instructions* Patient Instructions* Karla Ford APRN.[facility] - 09/01/2024 4:21 PM EST Images from the original note were not included. Please visit the following website for the [facility] surgery guide. [email or web address] PATIENT SURGICAL CHECKLIST - NEXT STEPS Your surgeon's office will call you to arrange your surgery date and pre- admission testing appointments. You should receive a call within 2-5 business days from our scheduling team. (If you do not receive a call within 5 days - please call [phone]) Pre-admission testing appointments include: - Preop anesthesia clearance with [facility] (pre-anesthesia consultation clinic). There are options for in person appointments or virtual appointments based on the recommendations from your surgeon. - Preop exam which can be done at the time of an in person pre-anesthesia appointment or by your surgeon's team depending on the complexity of your medical history. This needs to be done within 30 days of surgery. - Virtual shared preop nurse teaching appointment. - Lab work - Any other testing that the provider orders for prior to surgery if needed You will receive a call from the tugboat mate the business day prior to your surgery as to when and where to arrive on the day of your scheduled surgery PCU RN ONCOLOGY PHYSICIAN CONTACT INFORMATION Surgery Scheduling Office Surgeons: Dr. Beckie Billy Dr. Marely Foster Dr. Caleb Blanc Dr. Mercedes Green Dr. Debbie Resendez Dr. Moustapha Luis Dr. Fredis Buckner Dr. Alex Shukla Dr. Pino Pathak Per Diem Registered Nurse Oncology Nurse Practitioners: Tess Tabares, CONTESTANT COORDINATOR.DELFINO Watson, CONTESTANT COORDINATOR.DELFINO Ford, CONTESTANT COORDINATOR.DELFINO Middleton, CONTESTANT COORDINATOR.DELFINO Mratinez, CONTESTANT COORDINATOR.DELFINO Ferrell, CONTESTANT COORDINATOR.DELFINO After 4:30 pm or on holidays or weekends, call: or [phone]. Ask the operatorto page the floor layer helper oncologist pollution control technician. PRE-OPERATIVE CHECKLIST: PATIENT INSTRUCTIONS PRIOR TO SURGERY Our guidelines have changed, so please read these instructions carefully. Your surgery may be cancelled if you do not follow these instructions. MY ARRIVAL TIME IS: I have been instructed not to have any solid food to eat after midnight prior to my surgery (this includes no gum, mints, smoking). I am allowed to drink small amounts (up to 12 oz) of clear liquids up until 2 hours prior to my arrival time. Clear liquids include water, fruit juices without pulp, carbonated beverages (i.e. isadora kell), electrolyte beverages (i.e. Gatorade), clear tea and black coffee, clear broth, popsicles and jello. (No milk). No alcohol the day before or day of surgery. I will bring this binder to all pre and post-operative appointments AND day of surgery. MEDICATION STOPPAGE: Unless my surgeon tells me differently, I will STOP THESE MEDICATIONS 7 DAYS PRIOR TO SURGERY: (Motrin/ibuprofen/Naproxen/Aleve/Advil), Aspirin, vitamin E, herbal medications, diet pills, and hmwk-axs-hiukwxu medications. Tylenol (acetaminophen) is okay. I will not wear jewelry, body piercing(s), makeup, nail argentine, hairpins, or contacts on the day ofsurgery. I am to leave valuables and money at home or with family members. If I am prescribed inhalers for breathing, I will use them and bring them to the hospital. Medication(s) to be taken on the morning of surgery with a few sips of water: If I am taking any of the following blood thinning medications - Aspirin, clopidogrel (Plavix), ticagrelor (Brilinta), prasugrel (Efficient), ticlodipine (Ticlid), warfarin (Coumadin), dibigatran (Pradaxa) or rivaroxaban (Xarelto) - I will discuss whether or not I should stop them before surgery with my surgeon. Discuss medication changes with your returned case inspector or primary care physician as well. If I stopped taking my blood-thinning medication, I will ask the surgeon when to resume taking it. If I am an outpatient, a responsible person will drive me home and it was suggested that someone stay with me for 24 hours. I understand that a chief business officer or cabdriver is NOT a responsible caregiver. Patients with diabetes,I will not take my morning diabetes medication (pills) on the morning of surgery. If I am on insulin, someone has gone over those instructions with me for the morning of surgery. I understand if my surgery is delayed, I will notify the check in desk that I have diabetes. See the Diabetic GuidelinesBefore Surgery in the patient education section. If I have Obstructive Sleep Apnea and use a CPAP/BiPAP machine, I will bring my mask, tubing, and machine with me on the day of surgery. Pain management education material found in Your Surgical Guide was reviewed with me. To find out my arrival time for surgery, I must call my director surgical after 2pm the day beforesurgery. Pre-operative instructions given by: PREOP INSTRUCTIONS THE DAY OF SURGERY/CHECK IN Report to DESK -9 for surgery. A map is located in Your Surgical Guide Book. The online version of the surgical guide book can be found at: [email or web address] The address is [address] [place] [address] INFECTION PREVENTION Please notify your doctor if you have any signs of an infection (i.e. fever, severe cough, nasal congestion, pain with urination, abnormal vaginal discharge, diarrhea, etc). Your surgeon will let you know if a bowel prep is needed before your surgery. If so, please see theattached instructions. Shower the night before surgery AND the morning of surgery with Hibiclens (provided by your surgeon). If you are allergic to Hibiclens or unable to obtain the Hibiclens, please wash with antibacterial soap. Wash your body from the neck down, focusing on your abdomen, belly button and external genitalia. Do not forget to scrub any skin folds and creases. No lotions, oils, creams, or powders after your shower. Underarm deodorant is okay. No shaving (abdominal or pubic hair) or douching the day before surgery. You may be asked to apply an antiseptic solution called Chlorhexidine Gluconate (CHG) which will beprovided to you on arrival to the preop area. Hand washing is extremely important in preventing infection (for both you as the patient and for the caregivers). HOSPITALIZATION Before you leave the hospital, you typically need to be able to eat/drink, urinate, and have your pain controlled with oral medication. Your surgeon or other members of your surgeon s team will discuss any other specific medical issues related to your discharge with you. Your surgeon may order intermittent compression sleeves. These are massaging leg pumps to help prevent blood clots after surgery. See Your Surgical Guide Book for more information. It is also very important that you walk as soon as possible and as frequently as possible after surgery. This will help decrease your risk of blood clots, exercise your lungs and speed up your recovery after surgery. If you are admitted to the hospital overnight, you will be given an incentive spirometer, which is a breathing machine that will help make sure that you are taking deep breaths and expanding your lungs while in the hospital. See Your Surgical Guide Book for more information. [facility] TEAM At the [facility], we have a multidisciplinary team of caregivers that includes fellows, residents, nurse practitioners, physician assistants, clinical nurse specialists, nurses, medical assistants, patient care nursing assistants, social workers, rehabilitation caseworker and many others. We all have different roles and responsibilities but we are all here to help. ANTIBIOTIC BOWEL PREP Your physician has ordered a bowel preparation prior to surgery. It is important to follow these instructions to ensure adequate preparation for surgery and avoid possible delays or cancellation of your surgery. PURCHASE OVER THE COUNTER (no prescription needed): One 238 gram bottle of Miralax Dulcolax (two 5mg oral tablets), a.k.a. bisacodyl 64 oz of Gatorade (or other clear liquid) DIRECTIONS: One (1) Day Before Your Procedure Only drink clear liquids the ENTIRE DAY before your procedure. Do NOT eat any solid foods. Drink atleast 8 ounces of clear liquids every hour after waking up. The clear liquids you can drink include: CLEAR LIQUID DIET: Gatorade, Pedialyte, Powerade, or other electrolyte beverage Clear broth or bouillon Coffee or tea (no milk or non-dairy creamer) Carbonated and non-carbonated soft drinks Philip-Aid or other fruit flavored drinks Strained fruit juices (no pulp) Jell-O, popsicles Water DO NOT DRINK: Alcohol Milk or non-dairy creamers Noodles or vegetables in soup Juice with pulp Liquid you cannot see through BOWEL PREP INSTRUCTIONS: Day Prior to Procedure: 3:00 PM - Take 2 Dulcolax tablets. 5:00 PM - Mix the whole bottle of Miralax and the Gatorade into a pitcher and stir until dissolved.Drink an 8 ounce glass every 10-15 minutes until the solution is gone. If you experience nausea, slow down the pace of drinking or take a short break, then resume drinking. It is important to continue drinking clear liquids until bedtime. 7:00 PM - Take first dose of metronidazole* 2000mg (four 500mg pills) and neomycin* 2000mg (four 500mg pills) 11:00 PM - Take second dose of metronidazole* 2000mg (four 500mg pills) and neomycin* 2000mg (four 500mg pills) *Metronidazole and neomycin are prescriptions that will be called in to your preferred pharmacy. POSTOP: ABDOMINAL SURGERY ACTIVITY No heavy lifting/pushing/pulling for 6-8 weeks. Do not lift anything more than about 10-15 lbs (such as laundry, groceries, children, pets), vacuum, push heavy doors or grocery carts, etc. You may climb stairs as tolerated. Do not put anything in the vagina for 6-8 weeks after surgery unless otherwise instructed by your doctor (including tampons, douching, sexual intercourse, etc). No driving for about 4 weeks after surgery, while you are taking narcotic pain medication, or untilyou feel that you are ready. Avoid sitting or lying in bed for more than 2 hours at a time while you are awake to reduce your risk of blood clots. Return to work when directed by your surgeon. Please contact your surgeon s office if any FMLA or other paperwork is needed. WOUND CARE Shower daily after surgery. Wash your incision with antibacterial soap (such as Dial). Pat your incision dry with a clean towel. No tub baths until wound is completely healed. If you have dave, they need to be removed about 10-14 days after surgery (sutures/surgical glue do not need to be removed). Keep incision clean, dry, and open to the air. Wash your hands frequently, especially before touching your incision, changing any dressings, afterusing the restroom, and before eating. PAIN MANAGEMENT You will be given prescriptions for a variety of pain medications (opioid and non-opioid) before you leave the hospital. Surgery will cause pain and everyone has a different pain tolerance. It is safer to find the right combination and amount of medicine to manage your pain. We recommend that you take the non-opioid medication (acetaminophen and ibuprofen) on a regular schedule after surgery. You can take these medications on an alternating schedule so that you are taking one or the other every 3-4 hours. The maximum total daily dose of acetaminophen is 4,000mg and the maximum totaldaily dose of ibuprofen is 2,400mg. Take the opioid prescription ONLY when your pain is severe and never take more pills or more frequent doses than prescribed. Opioids (narcotics) can cause serious side effects. The risks increase the longer they are used. Taking opioids may cause: constipation, drowsiness, itching, nausea/vomiting. More serious side effects of opioids may include: addiction or dependence, life threatening overdose, or dizziness leading to falls/injury. Keep your pain medication locked in a safe place. Never share your pain medication with others. If you have any remaining opioid pills after you recover from surgery, please bring them to a medication disposal station (located in many of the [facility] pharmacies). Do not flush them down the toilet. Constipation is a common problem after surgery. You should take a stool softener (i.e. colace) twice a day, especially if you are taking opioids. If a stool softener alone is not helping to manage your constipation, you can also take Miralax and/or milk of magnesia as needed. WHEN TO CALL THE DOCTOR Call your doctor if you have any of the following symptoms: Fever (>100.4 F or 38.0 C) or chills. Incision problems such as redness, warmth, swelling, or foul smelling drainage. Severe nausea or persistent vomiting. Bright red vaginal bleeding (soaking >1 pad/hour) or foul smelling vaginal drainage. Severe pain not relieved with pain medication. Pain and swelling in your legs, especially if it is only on one side and not the other. Pain with urination, cloudy urine, or foul smelling urine. Or if you have any other problems or questions. CALL 911 or go to the ED if you have any shortness of breath, difficulty breathing, or chest pain. documented in this encounterFostoria City Hospital11-27-2024 Telephone encounter Note * Telephone Encounter - Karla Ford APRN.DELFINO - 09/01/2024 4:14 PM EST Images from the original note were not included. Received message from Dr. Buckner: Called and spoke with patient and she is agreeable to debulking. Will place orders for 09/08. She will see Dr. Buckner 09/[address] review and preop consent. Fredis Buckner MD Masci, Paul A, DO; Usha Retana ALICIA; Karla Ford APRN.DELFINO Dowd Yes she has continued to respond I will put her on for televisit today. I see her last treatment was on 08 12 so if she is willing could consider surgery on 09 08 thanks for the update. Fredis Previous Messages ----- Message ----- From: Nile Hall DO Sent: 08/30/2024 5:21 PM EST To: MD Jacobo Banks, Since we last talked about her, she had cycles 5 and 6 of Carbo/Taxol. CA125 has normalized and herabdominal/pelvic scan looks better at least in terms of the cystic component of the tumor--frankly I can't tell where the top of her uterus ends and the actual tumor begins. I know you had said her disease was pretty dense in the pelvis, but do think if she is willing would want to reconsider surgery? Thank you, Nile [facility]11-27-2024 Miscellaneous Notes* Telephone Encounter - Karla Ford APRN.DELFINO - 09/01/2024 4:14 PM EST Images from the original note were not included. Received message from Dr. Buckner: Called and spoke with patient and she is agreeable to debulking. Will place orders for 09/08. She will see Dr. Buckner 09/[address] review and preop consent. Fredis Buckner MD Masci, Paul A, ; Usha Retana, PCNA; Karla Ford APRN.DELFINO Dowd Yes she has continued to respond I will put her on for televisit today. I see her last treatment was on 08 12 so if she is willing could consider surgery on 09 08 thanks for the update. Fredis Previous Messages ----- Message ----- From: Nile Hall DO Sent: 08/30/2024 5:21 PM EST To: MD Jacobo Banks, Since we last talked about her, she had cycles 5 and 6 of Carbo/Taxol. CA125 has normalized and herabdominal/pelvic scan looks better at least in terms of the cystic component of the tumor--frankly I can't tell where the top of her uterus ends and the actual tumor begins. I know you had said her disease was pretty dense in the pelvis, but do think if she is willing would want to reconsider surgery? Thank you, Nile documented in this encounterFostoria City Hospital11-20-2024 History of Present illness Narrative* Reef Luz Marina Garciaberly, (R) - 08/25/2024 9:00 AM EST Radiology Service Progress Note DATE OF SERVICE: August 25, 2024 TIME: 9:23 AM PATIENT IDENTITY VERIFICATION COMPLETED USING TWO (2) STANDARD IDENTIFIERS: Name and Date of confirmed by patient verbally. FALL SCREENING: Has the patient had 2 falls in the last year or 1 fall with injury or currently using an Ambulatory Assistive Device (Walker, Cane, Wheelchair, Crutches, etc.)? No PATIENT GENDER DATA: Female. status: : No status: NO. PATIENT RELEVANT IMPLANT DATA REVIEWED: Yes PATIENT PRESENTS WITH AN IMPLANTABLE OR ATTACHED MILK TANKER DRIVER: No ALLERGIES: Reviewed and unchanged CONTRAST ALLERGY: NO. EXAM: CT -CONTRAST INDUCED NEPHROPATHY RISK FACTORS: Patient age > 60 years CREATININE: Creatinine Date Value Ref Range Status 08/11/2024 0.82 0.58 - 0.96 mg/dL Final 07/21/2024 0.83 0.58 - 0.96 mg/dL Final 06/30/2024 0.83 0.58 - 0.96 mg/dL Final Estimated Glomerular Filtration Rate Date Value Ref Range Status 08/11/2024 76 >=60 mL/min/1.73m Final Comment: Estimated Glomerular Filtration Rate (eGFR) is calculated using the 2020 CKD-EPI creatinine equation. This equation utilizes serum creatinine, sex, and age as parameters. The creatinine assay has traceable calibration to isotope dilution- mass spectrometry. Refer to KDIGO guidelines for clinical interpretation. In patients with unstable renal function, e.g. those with acute kidney injury, the eGFRmay not accurately reflect actual GFR. eGFR- Date Value Ref Range Status 06/15/2019 >60 Final P.O.C.T. RESULTS: POC done: Yes, See Lab Tab August 25, 2024 TREATMENT: N/A PERIPHERAL IV DATA: Ambulatory: A peripheral IV was started in the Left antecubital site with a Angio cath: 22 gauge. RADIOLOGY DEPARTMENT: CT; Exam(s) Completed: Chest Abdomen Pelvis SIGNATURE: RT Maira(R) PATIENT NAME: Sal Bautista DATE: August 25, 2024 TIME: 9:23 AM documented in this encounterFostoria City Hospital11-20-2024 NoteSt[facility] Telephone encounter Note* Telephone Encounter - Matthew Moreland RN - 08/19/2024 4:25 PM EST IRB#: [id number] Study name: [facility] [place]: A Phase 2, Open-Label, Randomized, Non-Comparative Clinical Trial of [id number] Monotherapy and in Combination With Nivolumab in Subjects With Recurrent Ovarian Cancers PI: Dr. Fredis Buckner Date 08/19/2024 Left voice message for patient to call research back. This study was closed to enrollment this morning and is therefore no longer an option for participation. Will notify patient of this information once she returns research call. Matthew Moreland RN [facility]11-14-2024 Miscellaneous Notes* Telephone Encounter - Matthew Moreland RN - 08/19/2024 4:25 PM EST IRB#: [id number] Study name: [facility] [id number]: A Phase 2, Open-Label, Randomized, Non-Comparative Clinical Trial of [id number] Monotherapy and in Combination With Nivolumab in Subjects With Recurrent Ovarian Cancers PI: Dr. Fredis Buckner Date 08/19/2024 Left voice message for patient to call research back. This study was closed to enrollment this morning and is therefore no longer an option for participation. Will notify patient of this information once she returns research call. Matthew Moreland RN documented in this encounterF[facility]11-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 HPI: The patient is a 74-year-old female with a past medical history as outlined below. CT A/P 03/10/2024: RESULT: Liver: No mass. Biliary: No bile duct dilation. No calcified gallstones. Spleen: No mass. No splenomegaly. Pancreas: Mildly prominent pancreatic duct. No lesions identified. Adrenals: No mass. Kidneys: No renal lesions or hydronephrosis. GI tract: No dilation or wall thickening. Lymph nodes: No abdominal or pelvic lymphadenopathy. Mesentery/Peritoneum: Moderate volume ascites. No loculated collections. Infiltrative change in mesenteric fat and areas of peritoneal thickening with possible mild serosal thickening of scattered small bowel loops. Retroperitoneum: No mass. Vasculature: - Abdominal aorta and iliac arteries: Atherosclerotic calcifications without aneurysm. - Celiac and SMA: Patent without stenosis. - Portal venous system (SMV, splenic vein, portal vein and branches): Patent. - Hepatic veins: Patent. Pelvis: Left pelvic 9.0 x 7.5 x 11.1 cm cystic mass with internal septations and areas of minimal peripheral wall thickening. Contiguous 6.5 x 3.7 cm heterogeneous soft tissue mass centered in the right pelvis (5:112). Moderate volume ascites at the upper pelvis there is a peritoneal thickening. Presacral edema. Bones/Soft Tissues: No acute findings. Lower thorax: Unremarkable. Localizer images: No additional findings. IMPRESSION: Large complex cystic mass in the left pelvis with adjacent soft tissue component extending into the right pelvis concerning for ovarian neoplasm. Ascites and changes of carcinomatosis also present in the abdomen and pelvis. CT Chest 03/10/2024: IMPRESSION: Few small sub-6 mm indeterminate lung nodules. Continued attention on follow-up is suggested given history of pelvic mass. No thoracic lymph node enlargement. Focal thickening along the right anterior pleura and a cluster of subcentimeter right cardiophrenic lymph nodes. Continued attention on follow-up is suggested. 04/29/2024-- Exploratory laparotomy Aborted Debulking Peritoneal biopsies Diverting loop ileostomy ~2L serous ascites evacuated. 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 Ovarian mass in pelvis, unable to palpate rectum/sigmoid. Small bowel with extensive dilation and collapsed large bowel, likely small bowel obstruction near ileocecal valve but unable to mobilize bowel sufficiently due to mesenteric carcinomatosis to visualize the obstruction. Carcinomatosis along diaphragm and in the left upper quadrant but evaluation was limited by small bowel. Tumor involving the root of the small bowel mesentery. Pathology: A. Right abdominal wall peritoneum, excision: High-grade serous carcinoma; see comment. B. Left abdominal wall peritoneum, excision: High-grade serous carcinoma; see comment. Per initial office consultation: Appetite still low. Has early satiety. Abdominal pain much improved. Ostomy working well. Current therapy: 1) Carboplatin/paclitaxel. Presents for ongoing oncologic management. Interim history: All below verified again today 08/11/2024. She continues to tolerate treatment very well overall. No symptoms of sensory neuropathy. No nausea. Ostomy working well. Remains active and is getting out and about. 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 left sterotactic COLONOSCOPY FLX DX W/COLLJ SPEC WHEN PFRMD 03/09/2012 Colonoscopy COLONOSCOPY FLX DX W/COLLJ SPEC WHEN PFRMD 11/22/2015 Colonoscopy (MAC) ESOPHAGOGASTRODUODENOSCOPY TRANSORAL DIAGNOSTIC 11/22/2015 EGD (MAC) ILEOSTOMY 04/2024 ALLERGIES No Known Allergies Current Outpatient Medications Medication Sig dexAMETHasone (DECADRON) 4 mg tablet Take 5 tablets 12 and 6 hours prior to chemotherapy treatment. ondansetron orally disintegrating (ZOFRAN ODT) 8 mg disintegrating tablet Take 1 tablet by mouth every 8 hours as needed for nausea/vomiting. prochlorperazine (COMPAZINE) 10 mg tablet Take 1 tablet by mouth every 6 hours as needed. acetaminophen (TYLENOL EXTRA STRENGTH) 500 mg tablet Take 1,000 mg by mouth every 6 hours as neededfor pain. nutritional supplement ([employer] STANDARD 1.4) 0.06 G - 1.4 Kcal/mL oral liquid Take 325 mL by mouth three times a day. dicyclomine (BENTYL) 10 mg capsule Take 1 or 2 before meals, as needed. (Patient taking differently: Take 10 mg by mouth three times a day as needed (abdominal cramping). Take 1 or 2 before meals, asneeded.) Loperamide HCl (ANTI-DIARRHEAL) 2 mg tab Take 1 tablet by mouth as needed. iv contrast (will be provided with radiology test) CT Chest W -Inject, intravenously, once for 1 dose.No IV access, insert saline lock prior to the beginning of sedation, infusion, injection of imaging exam. Discontinue saline lock post exam. If Pt. has a central line or IVAD, may access for administration according to line specific nursing protocol. Once exam is complete flush line and de-accessaccording to line specific nursing protocol in the CT contrast administration guidelines link. (Patient not taking: Reported on 07/16/2024) iv contrast (will be provided with radiology test) CT ABD/PEL -Inject, intravenously, once for 1 dose.No IV access, insert saline lock prior to the beginning of sedation, infusion, injection of imaging exam. Discontinue saline lock post exam. If Pt. has a central line or IVAD, may access for administration according to line specific nursing protocol. Once exam is complete flush line and de-accessaccording to line specific nursing protocol in the CT contrast administration guidelines link. (Patient not taking: Reported on 07/16/2024) enteric contrast (will be provided with radiology test) For CT ABD/PEL W IVCON Routine order Administer, As Directed One Time Only, via Oral, Rectal, both Oral and Rectal, Enteric Tube, Stoma or Indwelling Catheter, Enteric Contrast as designated per enteric contrast guidelines (Patient not taking:Reported on 07/16/2024) alendronate (FOSAMAX) 70 mg tablet Take 1 tablet by mouth one time a week. Take with a full glass of water, on an empty stomach; do NOT lie down for 30minutes. (Patient not taking: Reported on 06/08/2024) Cholecalciferol, Vitamin D3, 50 mcg (2,000 unit) cap Take 1 capsule by mouth once daily. (Patient not taking: Reported on 06/08/2024) No current facility-administered medications for this visit. Social History Tobacco Use Smoking status: Never Smokeless tobacco: Never Vaping Use Vaping status: Never Used Substance Use Topics Alcohol use: Yes Comment: social Drug use: No Family History Problem Relation Age of Onset None Mother None Father Pancreatitis Brother Breast Cancer Maternal Aunt Anesthesia Problems No Family History ROS: Constitutional: No fever. No drenching night sweats. Normal appetite. No unexplained weight loss. No significant fatigue. Neuro: No recent STAHL, vertigo, dizziness or imbalance. HEENT: No recent change in voice, vision or hearing. Resp: No cough, wheeze of hemoptysis. No shortness of breath at rest. CVS: No exertional chest pain, PND or orthopnea. No extremity swelling/edema. No symptoms of claudication. No painful or tender varicose veins. GI: See above. : No dysuria or gross hematuria. Endo: No hot flashes. No polyuria or polydipsia. No heat or cold intolerance. Musculoskeletal: No bone, back, joint and muscular pain. Derm: No current rash. No history of jaundice. No diffuse pruritis. Heme: No unusual bleeding and unexplained bruising. Psych: Normal mood. PHYSICAL EXAM: Vitals: Blood pressure 138/74, pulse 94, temperature 36.4 C (97.5 F), temperature source Temporal, weight 55.8 kg (123 lb), SpO2 100%. Well-appearing and in no acute distress. EYES: Sclerae are anicteric bilaterally. RESPIRATORY: Inspiratory breath sounds are of normal intensity in all moyer. CARDIOVASCULAR: Rhythm is regular. ABDOMEN: The abdomen is nondistended. Extremities: No swelling or edema. SKIN: No jaundice. LABS: Latest Ref Rng 04/22/2024 05/18/2024 06/08/2024 06/30/2024 WBC 3.70 - 11.00 k/uL 3.04 (L) RBC 3.90 - 5.20 m/uL 3.76 (L) Hemoglobin 11.5 - 15.5 g/dL 11.0 (L) Hematocrit 36.0 - 46.0 % 33.3 (L) MCV 80.0 - 100.0 fL 88.6 MCH 26.0 - 34.0 pg 29.3 MCHC 30.5 - 36.0 g/dL 33.0 RDW-CV 11.5 - 15.0 % 18.6 (H) Platelet Count 150 - 400 k/uL 183 MPV 9.0 - 12.7 fL 8.9 (L) Neut% % 26.9 Abs Neut (ANC) 1.45 - 7.50 k/uL 0.82 (L) Lymph% % 38.5 Abs Lymph 1.00 - 4.00 k/uL 1.17 Bristol% % 30.3 Abs [place] <0.87 k/uL 0.92 (H) Eosin% % 1.3 Abs Eosin <0.46 k/uL 0.04 Baso% % 2.0 Abs Baso <0.11 k/uL 0.06 Immature Gran % % 1.0 IMMATURE GRANS (ABS) <0.10 k/uL 0.03 NRBC /100 WBC 0.0 Absolute nRBC <0.01 k/uL <0.01 DTYPE Auto Protein, Total 6.3 - 8.0 g/dL 7.4 Albumin 3.9 - 4.9 g/dL 4.6 Calcium 8.5 - 10.2 mg/dL 9.8 Bilirubin, Total 0.2 - 1.3 mg/dL 0.2 Alkaline Phosphatase 34 - 123 U/L 75 AST 13 - 35 U/L 15 ALT 7 - 38 U/L 15 Glucose 74 - 99 mg/dL 82 BUN 7 - 21 mg/dL 21 Creatinine 0.58 - 0.96 mg/dL 0.83 Sodium 136 - 144 mmol/L 138 Potassium 3.7 - 5.1 mmol/L 3.7 Chloride 98 - 107 mmol/L 103 CO2 22 - 30 mmol/L 23 Anion Gap 8 - 15 mmol/L 12 eGFR >=60 mL/min/1.73m 75 CA 125 <39 U/mL 320 (H) 177 (H) 66 (H) Magnesium 1.7 - 2.3 mg/dL 2.0 Genetic testing: [employer] panel negative. 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 [employer]: FOLR1 +75% membrane staining (04/09/2024). [facility] NGS: TP53 32% VAF. -Variant of uncertain significance NTRK2. -TMB low. -HRD genomic scar score low. -MSI stable. 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 -Presented with SBO. Ileostomy. -She continues to tolerate treatment very well and most recent CA125 had declined. She remains asymptomatic from the disease. We discussed completing cycle 6, obtaining imaging and then deciding either plan for surgery or maintenance therapy or potential clinical trial. Plan: -Cycle #6 tomorrow pending ANC recovery. -If ANC does not recover, we will delay treatment 1 week. -Neulasta day 2 or 4 depending on when scheduled for treatment. -Monitor CA125. -Repeat CT chest, abdomen pelvis following cycle 6 and then we will discuss plan with Dr. Buckner. Portions of this documentation were copied and pasted from previous office visit notes in order to provide a cohesive continuity of the history. The note has been reviewed and edited and updated as necessary. Nile Hall DO documented [facility] encounterF[facility]10-[facility] Telephone encounter Note * Telephone Encounter - Anahi Dyer - 07/28/2024 4:04 PM EDT Ok. Thank you Anahi Mathews [facility]10-23-2024 Miscellaneous Notes* Telephone Encounter - Anahi Dyer - 07/28/2024 4:04 PM EDT Ok. Thank you Anahi Mathews * Telephone Encounter - Nile Hall DO - 07/28/2024 3:57 PM EDT Keep her scheduled for at least 1 more treatment on 08/11 and 08/12. Nile Hall DO * Telephone Encounter - Anahi Dyer - 07/28/2024 3:15 PM EDT Images from the original note were not included. Shalini Barragan, There is a treatment message in from Giorgio Eli from 07/16/24. It looks like maybe Kate had donesomething with it but with both of them being out I thought I would try to concern or disregard theinformation with you. Please see the below note about canceling Sal for her treatments, is this correct? Thank you, Anahi Mathews documented in this encounterFostoria City Hospital10-23-2024 Telephone encounter Note * Telephone Encounter - Nile Hall DO - 07/28/2024 3:57 PM EDT Keep her scheduled for at least 1 more treatment on 08/11 and 08/12. Nile Hall DO [facility]10-23-2024 Telephone encounter Note* Telephone Encounter - Anahi Dyer - 07/28/2024 3:15 PM EDT Images from the original note were not included. Shalini Barragan, There is a treatment message in from Giorgio Eli from 07/16/24. It looks like maybe Kate had donesomething with it but with both of them being out I thought I would try to concern or disregard theinformation with you. Please see the below note about canceling Sal for her treatments, is this correct? Thank you, Anahi Deutsch Pss [facility]10-22-2024 NoteSt[facility] Telephone encounter Note* Telephone Encounter - Matthew Moreland RN - 07/26/2024 1:15 PM EDT IRB#: [id number] Study name: [facility] [id number]: A Phase 2, Open-Label, Randomized, Non-Comparative Clinical Trial of [id number] Monotherapy and in Combination With Nivolumab in Subjects With Recurrent Ovarian Cancers PI: Dr. Fredis Buckner Visit: PreScreening Date 26JUL2024 Contacted patient by phone to inform her that her pre-screening HLA results are positive. Informed patient that archival tumor tissue will be sent today to the sponsor lab for MAGE-4 testing and research will contact patient with results, when available. Patient requesting additional information regarding the [id number] study. Main study consent sent via [email or web address]. Encouraged the patient to reach out to research with any questions. Mathtew Moreland RN [facility]10-21-2024 Miscellaneous Notes* Telephone Encounter - Matthew Moreland RN - 07/26/2024 1:15 PM EDT IRB#: [id number] Study name: [facility] [id number]: A Phase 2, Open-Label, Randomized, Non-Comparative Clinical Trial of [id number] Monotherapy and in Combination With Nivolumab in Subjects With Recurrent Ovarian Cancers PI: Dr. Fredis Buckner Visit: PreScreening Date 26JUL2024 Contacted patient by phone to inform her that her pre-screening HLA results are positive. Informed patient that archival tumor tissue will be sent today to the sponsor lab for MAGE-4 testing and research will contact patient with results, when available. Patient requesting additional information regarding the [id number] study. Main study consent sent via [email or web address]. Encouraged the patient to reach out to research with any questions. Matthew Moreland RN documented in this encounterFostoria City Hospital10-17-2024 Telephone encounter Note * Telephone Encounter - Sana Morales - 07/22/2024 4:28 PM EDT Patient returned call and will be in tomorrow [facility] Work Phone: [phone] Miscellaneous Notes* Telephone Encounter - Sana Morales - 07/22/2024 4:28 PM EDT Patient returned call and will be in tomorrow * Telephone Encounter - Corrina Jaime LPN - 07/22/2024 4:18 PM EDT Left detailed message on patient's VM letting her know that Dr. Hall spoke with Dr. Buckner and that the plan is to continue Carbo/Taxol and she should keep her treatment appointment 07/23/2024. CA 125is 55. Patient to contact office for any questions. Corrina Jaime LPN documented in this encounterFostoria [facility] Hospital10-17-2024 Telephone encounter Note * Telephone Encounter - Corrina Jaime LPN - 07/22/2024 4:18 PM EDT Left detailed message on patient's VM letting her know that Dr. Hall spoke with Dr. Buckner and that the plan is to continue Carbo/Taxol and she should keep her treatment appointment 07/23/2024. CA 125is 55. Patient to contact office for any questions. Corrina Jaime LPN [facility]10-16-2024 NoteSt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 HPI: The patient is a 74-year-old female with a past medical history as outlined below. CT A/P 03/10/2024: RESULT: Liver: No mass. Biliary: No bile duct dilation. No calcified gallstones. Spleen: No mass. No splenomegaly. Pancreas: Mildly prominent pancreatic duct. No lesions identified. Adrenals: No mass. Kidneys: No renal lesions or hydronephrosis. GI tract: No dilation or wall thickening. Lymph nodes: No abdominal or pelvic lymphadenopathy. Mesentery/Peritoneum: Moderate volume ascites. No loculated collections. Infiltrative change in mesenteric fat and areas of peritoneal thickening with possible mild serosal thickening of scattered small bowel loops. Retroperitoneum: No mass. Vasculature: - Abdominal aorta and iliac arteries: Atherosclerotic calcifications without aneurysm. - Celiac and SMA: Patent without stenosis. - Portal venous system (SMV, splenic vein, portal vein and branches): Patent. - Hepatic veins: Patent. Pelvis: Left pelvic 9.0 x 7.5 x 11.1 cm cystic mass with internal septations and areas of minimal peripheral wall thickening. Contiguous 6.5 x 3.7 cm heterogeneous soft tissue mass centered in the right pelvis (5:112). Moderate volume ascites at the upper pelvis there is a peritoneal thickening. Presacral edema. Bones/Soft Tissues: No acute findings. Lower thorax: Unremarkable. Localizer images: No additional findings. IMPRESSION: Large complex cystic mass in the left pelvis with adjacent soft tissue component extending into the right pelvis concerning for ovarian neoplasm. Ascites and changes of carcinomatosis also present in the abdomen and pelvis. CT Chest 03/10/2024: IMPRESSION: Few small sub-6 mm indeterminate lung nodules. Continued attention on follow-up is suggested given history of pelvic mass. No thoracic lymph node enlargement. Focal thickening along the right anterior pleura and a cluster of subcentimeter right cardiophrenic lymph nodes. Continued attention on follow-up is suggested. 04/29/2024-- Exploratory laparotomy Aborted Debulking Peritoneal biopsies Diverting loop ileostomy ~2L serous ascites evacuated. 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 Ovarian mass in pelvis, unable to palpate rectum/sigmoid. Small bowel with extensive dilation and collapsed large bowel, likely small bowel obstruction near ileocecal valve but unable to mobilize bowel sufficiently due to mesenteric carcinomatosis to visualize the obstruction. Carcinomatosis along diaphragm and in the left upper quadrant but evaluation was limited by small bowel. Tumor involving the root of the small bowel mesentery. Pathology: A. Right abdominal wall peritoneum, excision: High-grade serous carcinoma; see comment. B. Left abdominal wall peritoneum, excision: High-grade serous carcinoma; see comment. Per initial office consultation: Appetite still low. Has early satiety. Abdominal pain much improved. Ostomy working well. Current therapy: 1) Carboplatin/paclitaxel. Presents for ongoing oncologic management. Interim history: She continues to tolerate treatment very well overall. No symptoms of sensory neuropathy. Weight has been trending up. No nausea. Ostomy working well. 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 left sterotactic COLONOSCOPY FLX DX W/COLLJ SPEC WHEN PFRMD 03/09/2012 Colonoscopy COLONOSCOPY FLX DX W/COLLJ SPEC WHEN PFRMD 11/22/2015 Colonoscopy (MAC) ESOPHAGOGASTRODUODENOSCOPY TRANSORAL DIAGNOSTIC 11/22/2015 EGD (MAC) ILEOSTOMY 04/2024 ALLERGIES No Known Allergies Current Outpatient Medications Medication Sig dexAMETHasone (DECADRON) 4 mg tablet Take 5 tablets 12 and 6 hours prior to chemotherapy treatment. ondansetron orally disintegrating (ZOFRAN ODT) 8 mg disintegrating tablet Take 1 tablet by mouth every 8 hours as needed for nausea/vomiting. prochlorperazine (COMPAZINE) 10 mg tablet Take 1 tablet by mouth every 6 hours as needed. acetaminophen (TYLENOL EXTRA STRENGTH) 500 mg tablet Take 1,000 mg by mouth every 6 hours as neededfor pain. nutritional supplement ([email or web address] STANDARD 1.4) 0.06 G - 1.4 Kcal/mL oral liquid Take 325 mL by mouth three times a day. dicyclomine (BENTYL) 10 mg capsule Take 1 or 2 before meals, as needed. (Patient taking differently: Take 10 mg by mouth three times a day as needed (abdominal cramping). Take 1 or 2 before meals, asneeded.) Loperamide HCl (ANTI-DIARRHEAL) 2 mg tab Take 1 tablet by mouth as needed. iv contrast (will be provided with radiology test) CT Chest W -Inject, intravenously, once for 1 dose.No IV access, insert saline lock prior to the beginning of sedation, infusion, injection of imaging exam. Discontinue saline lock post exam. If Pt. has a central line or IVAD, may access for administration according to line specific nursing protocol. Once exam is complete flush line and de-accessaccording to line specific nursing protocol in the CT contrast administration guidelines link. (Patient not taking: Reported on 07/16/2024) iv contrast (will be provided with radiology test) CT ABD/PEL -Inject, intravenously, once for 1 dose.No IV access, insert saline lock prior to the beginning of sedation, infusion, injection of imaging exam. Discontinue saline lock post exam. If Pt. has a central line or IVAD, may access for administration according to line specific nursing protocol. Once exam is complete flush line and de-accessaccording to line specific nursing protocol in the CT contrast administration guidelines link. (Patient not taking: Reported on 07/16/2024) enteric contrast (will be provided with radiology test) For CT ABD/PEL W IVCON Routine order Administer, As Directed One Time Only, via Oral, Rectal, both Oral and Rectal, Enteric Tube, Stoma or Indwelling Catheter, Enteric Contrast as designated per enteric contrast guidelines (Patient not taking:Reported on 07/16/2024) alendronate (FOSAMAX) 70 mg tablet Take 1 tablet by mouth one time a week. Take with a full glass of water, on an empty stomach; do NOT lie down for 30minutes. (Patient not taking: Reported on 06/08/2024) Cholecalciferol, Vitamin D3, 50 mcg (2,000 unit) cap Take 1 capsule by mouth once daily. (Patient not taking: Reported on 06/08/2024) No current facility-administered medications for this visit. Social History Tobacco Use Smoking status: Never Smokeless tobacco: Never Vaping Use Vaping status: Never Used Substance Use Topics Alcohol use: Yes Comment: social Drug use: No Family History Problem Relation Age of Onset None Mother None Father Pancreatitis Brother Breast Cancer Maternal Aunt Anesthesia Problems No Family History ROS: Constitutional: No fever. No drenching night sweats. Normal appetite. No unexplained weight loss. No significant fatigue. Neuro: No recent STAHL, vertigo, dizziness or imbalance. HEENT: No recent change in voice, vision or hearing. Resp: No cough, wheeze of hemoptysis. No shortness of breath at rest. CVS: No exertional chest pain, PND or orthopnea. No extremity swelling/edema. No symptoms of claudication. No painful or tender varicose veins. GI: See above. : No dysuria or gross hematuria. Endo: No hot flashes. No polyuria or polydipsia. No heat or cold intolerance. Musculoskeletal: No bone, back, joint and muscular pain. Derm: No current rash. No history of jaundice. No diffuse pruritis. Heme: No unusual bleeding and unexplained bruising. Psych: Normal mood. PHYSICAL EXAM: Vitals: Blood pressure 116/71, pulse 72, temperature 36.4 C (97.6 F), temperature source Temporal, weight 54.7 kg (120 lb 8 oz), SpO2 100%. Thin, but well-appearing and in no acute distress. EYES: Sclerae are anicteric bilaterally. RESPIRATORY: Inspiratory breath sounds are of normal intensity in all moyer. CARDIOVASCULAR: Rhythm is regular. ABDOMEN: The abdomen is nondistended. Extremities: No swelling or edema. SKIN: No jaundice. LABS: Latest Ref Rng 04/22/2024 05/18/2024 06/08/2024 06/30/2024 WBC 3.70 - 11.00 k/uL 3.04 (L) RBC 3.90 - 5.20 m/uL 3.76 (L) Hemoglobin 11.5 - 15.5 g/dL 11.0 (L) Hematocrit 36.0 - 46.0 % 33.3 (L) MCV 80.0 - 100.0 fL 88.6 MCH 26.0 - 34.0 pg 29.3 MCHC 30.5 - 36.0 g/dL 33.0 RDW-CV 11.5 - 15.0 % 18.6 (H) Platelet Count 150 - 400 k/uL 183 MPV 9.0 - 12.7 fL 8.9 (L) Neut% % 26.9 Abs Neut (ANC) 1.45 - 7.50 k/uL 0.82 (L) Lymph% % 38.5 Abs Lymph 1.00 - 4.00 k/uL 1.17 Bristol% % 30.3 Abs [place] <0.87 k/uL 0.92 (H) Eosin% % 1.3 Abs Eosin <0.46 k/uL 0.04 Baso% % 2.0 Abs Baso <0.11 k/uL 0.06 Immature Gran % % 1.0 IMMATURE GRANS (ABS) <0.10 k/uL 0.03 NRBC /100 WBC 0.0 Absolute nRBC <0.01 k/uL <0.01 DTYPE Auto Protein, Total 6.3 - 8.0 g/dL 7.4 Albumin 3.9 - 4.9 g/dL 4.6 Calcium 8.5 - 10.2 mg/dL 9.8 Bilirubin, Total 0.2 - 1.3 mg/dL 0.2 Alkaline Phosphatase 34 - 123 U/L 75 AST 13 - 35 U/L 15 ALT 7 - 38 U/L 15 Glucose 74 - 99 mg/dL 82 BUN 7 - 21 mg/dL 21 Creatinine 0.58 - 0.96 mg/dL 0.83 Sodium 136 - 144 mmol/L 138 Potassium 3.7 - 5.1 mmol/L 3.7 Chloride 98 - 107 mmol/L 103 CO2 22 - 30 mmol/L 23 Anion Gap 8 - 15 mmol/L 12 eGFR >=60 mL/min/1.73m 75 CA 125 <39 U/mL 320 (H) 177 (H) 66 (H) Magnesium 1.7 - 2.3 mg/dL 2.0 Genetic testing: [facility] panel negative. 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 [facility]: FOLR1 +75% membrane staining (04/09/2024). [facility] NGS: TP53 32% VAF. -Variant of uncertain significance NTRK2. -TMB low. -HRD genomic scar score low. -MSI stable. 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 -Presented with SBO. Ileostomy. -She continues to tolerate treatment very well. Increase in CA125 prior to cycle 4. Symptomaticallynice palliative effect. Potential clinical trial. -Reviewed CT images with her and her . -We discussed however that pending today's CA125, potential continuing of carboplatin and paclitaxel tomorrow. Plan: -Cycle #5 this week pending CA125. -Neulasta Friday. -Monitor CA125. Portions of this documentation were copied and pasted from previous office visit notes in order to provide a cohesive continuity of the history. The note has been reviewed and edited and updated as necessary. I spent a total of 20 minutes on the date of the service which included preparing to see the patient, [id number] patient care, completing clinical documentation, obtaining and/or reviewing separately obtained history, performing a medically appropriate examination, counseling and educating the pat ient/family/caregiver, communicating with other HCPs (not separately reported), and communicating results to the patient/family/caregiver. Nile Hall DO documented in this encounterFostoria City [facility]10-13-[facility] NoteSt[facility] [facility] History of Present illness Narrative* Leia Eaton RN - 07/18/2024 7:50 PM EDT IRB#: [id number] Study name: GOG [id number]: A Phase 2, Open-Label, Randomized, Non-Comparative Clinical Trial of [id number] Monotherapy and in Combination With Nivolumab in Subjects With Recurrent Ovarian Cancers PI: Dr. Fredis Buckner Visit: PreScreening Date [id number] Prescreening informed consent signed, see consent tab, with Dr. Buckner in clinic. PAST MEDICAL HISTORY Diagnosis Date Actinic keratosis 07/05/2008 LEYVA ANGIOMA///NEVUS, NON-NEOPLASTIC 07/05/2008 Family history of osteoporosis 05/06/2008 High grade ovarian cancer (HCC) 04/22/2024 Irritable bowel syndrome Osteopenia Other chronic dermatitis due to solar radiation 07/05/2008 Other seborrheic keratosis 05/06/2008 Ovarian cancer (HCC) SOLAR LENGINES///DYSCHROMIA OTHER 07/05/2008 Blood collected for HLA, will ship out on Friday07/19/2024. Leia Eaton RN documented in this encounterFostoria City Hospital10-11-2024 History of Present illness Narrative* Fredis Buckner MD - 07/16/2024 3:20 PM EDT Images from the original note were not included. Gynecologic Oncology [facility] Follow up Re: Sal Bautista [facility]#: [id number] Date of Service: 07/16/2024 Dr. 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 Briefly, she is a 74 year old female, 2, para2 with a past medical history of IBS and osteoporosis who was referred for the evaluation of pelvicmass. 02/24/2024 patient presented to PCP with c/o abdominal distention and bloating. History of IBS causing both diarrhea and constipation. 06/23/2024 [facility] was negative for a pathogenic variant. TREATMENT HISTORY: 03/10/2024 CT Abd/Pel IMPRESSION: Large complex cystic mass in the left pelvis with adjacent soft tissue component extending into the right pelvis concerning for ovarian neoplasm. Ascites and changes of carcinomatosis also present in the abdomen and pelvis. 03/15/2024 Consult: 73yo female presents for management of pelvic mass, peritoneal thickening, and moderate volume ascites. No tumor markers were drawn. Patient with history of IBS. Her last colonoscopy from November 2015 was normal. She has been losing weight since December this year. Reports difficulty with eating which is not unusual for IBS. Family history of breast cancer (maternal aunt). I reviewed her CT scan from 03/10/2024 showing a large pelvic mass. There were irregularities seen along the diaphragm reflecting fluid and solid masses. There were ascites and findings suggesting carcinomatosis. I discussed my suspicion for malignancy and we will obtain tumor markers (CA125, CA19-9,and CEA) for further work up. We typically treat gynecologic cancers with either primary surgery and adjuvant chemotherapy or neoadjuvant chemotherapy and interval debulking surgery. Patient is 73 year old but she has good performance status and has no significant medical problems. I think she willbe a good candidate for primary debulking surgery if her prealbumin is wnl. If patient can be optimally cytoreduced, her survival could be improved. We will obtain prealbumin to evaluate her nutritional status and a chest CT to rule out intrathoracic disease. If her prealbumin is acceptable, will plan for primary debulking. Discussed the duration of hospital stay of 3 days after surgery with no bowel resection and approximately 7 days with bowel resection. If her CA125 is normal and her other tumor markers are elevated, may plan for IR biopsy to determine primary. If her prealbumin is very low, this could increase operative morbidity from primary surgery so we will pursue neoadjuvant chemotherapy while bringing her nutritional status up to get ready for interval debulking. I explained that chemotherapy can help reduce the volume of her ascites at which point she will feel less distendedand be able to eat more. Consents obtained today for both primary surgery and neoadjuvant chemotherapy and we will decide which approach based on her lab and imaging results. Latest Ref Rng 03/15/2024 Prealbumin 17 - 36 mg/dL 12 (L) Latest Ref Rng 03/15/2024 CEA <=2.9 ng/mL 0.6 CA 125 <39 U/mL 305 (H) CA19-9 <36.0 U/mL 11.0 03/16/2024 CT CHEST WO IVCON IMPRESSION: Few small sub-6 mm indeterminate lung nodules. Continued attention on follow-up is suggested given history of pelvic mass. No thoracic lymph node enlargement. Focal thickening along the right anterior pleura and a cluster of subcentimeter right cardiophreniclymph nodes. Continued attention on follow-up is suggested. 03/16/2024 Telephone encounter with Aga Meredith APRN.PHOTOGRAPHER LITHOGRAPHIC Called and spoke with patient~ per Dr. Buckner, he would like to cancel surgery tomorrow and admit herfor paracentesis and placement of feeding tube for poor nutritional status. Called admitting to request bad and advised patient that they would call her when bed becomes available. Updated inpatient team. Updated tugboat mate that her case needs to be cancelled tomorrow. 03/17 - 03/24/2024 Main [place] admission - Paracentesis and nutritional optimization PROCEDURES DURING HOSPITALIZATION: Corpak placement, EGD-guided Corpak placement HOSPITAL COURSE: Sal Bautista is a 73 year old female with a hx of IBS, osteopenia, and large pelvic mass who presented for nutritional optimization and paracentesis prior to surgery. She underwent a paracentesis on 03/17, with cytology notable for malignant cells consistent with high-nuclear grade adenocarcinoma. She underwent a Corpak placement for nutritional optimization, however it was noted to be folded back on itself on multiple KUBs. She then underwent an EGD-guided Corpak placement, which subsequently became clogged. Treatment with clog zapper and viokace was not effective and therefore decision was made to remove the corpak and discharge home without outpatient follow up. 03/17/2024 Paracentesis FINAL DIAGNOSIS A - Ascites Fluid, Sterile Fluid/Body Fluid Positive for malignant cells. High-nuclear grade adenocarcinoma. See comment. Diagnosis Comment Immunohistochemical stains show that the malignant cells are positive for Cambridge-8, Claudin-4 and negative for D2-40, ER. WT-1 shows rare, weak staining. P53 shows weak to moderate nuclear staining. Thestaining pattern of the p53 is suboptimal and should be repeated in the surgical specimen. The immunohistochemical staining pattern is consistent with a mullerian origin. Selected slides were reviewed in consultation with Dr. Munoz, who concurs. 03/29/2024 Visit: Patient presents with her for hospital follow-up visit. She was recently hospitalized for nutritional optimization and paracentesis prior to surgery. Underwent Corpak placement however it was noted to be folded back on itself on multiple KUBs. She then underwent an EGD-guided Corpak placement, which subsequently became clogged. Treatment with clog zapper and viokace was not effective and therefore decision was made to remove the corpak and discharge home with outpatientfollow up. I reviewed the cytologic study of her paracentesis. The immunohistochemical staining pattern is consistent with a Mullerian origin of high-nuclear grade adenocarcinoma although p53 staining pattern was inconclusive which could be due to insufficient cells and should be repeated in the surgical specimen. Reviewed low grade serous carcinoma (5% of all cases), high grade serous carcinoma (remaining 95%), different oncogenic pathways and only 4% of patients with low grade serous carcinoma achieved complete response when treated with chemotherapy. In this patient population, primary cytoreductive surgery is typically planned. The patient has good performance status for her age and no significant medical problems. If she canbe optimally cytoreduced, her survival could be improved (average OS ~ high 70 months and PFS ~ high 20 months). We will repeat prealbumin today to reassess her nutritional status. She has been drinking 2.5 protein boost per day. Explained the importance of nutritional optimization prior to surgeryto lower operative morbidity and be able to achieve optimal recovery. If her repeat prealbumin is acceptable, will plan for primary debulking. Otherwise, may plan for TPN for one week to bring up hernutrition and plan for surgery vs initiation of neoadjuvant chemotherapy to shrink her tumor volumewhile bringing her nutritional status up to get ready for interval debulking. Patient and expressed understanding and agreement with the plan. 04/09 - 04/13/2024 [place] admission OPERATIONS DURING HOSPITALIZATION: XL, aborted debulk, diverting loop ileostomy PROCEDURES DURING HOSPITALIZATION: No procedures performed HOSPITAL COURSE: Sal Bautista is a 73 yo female who was admitted with complex L pelvic mass. On 04/09 she underwent exploratory laparotomy and diverting loop ileostomy. Debulking of tumor was aborted due to significant carcinomatosis. SBO was visualized near ileocecal valve intraoperatively. Severalperitoneal biopsies were obtained. On POD#1, she passed her void trial and had adequate urine output. She had good ostomy output, and her diet was able to be advanced to to GIS. Her pain was well controlled with Tylenol and PO oxycodone 5mg PRN. On 7, she complained of LLE swelling and had a DVT US which was negative. On POD#4 shewas tolerating a diet, ambulating, meeting all post operative milestones, and was able to be discharged home. 04/09/2024 Exploratory laparotomy, drainage of ascites, peritoneal biopsies, and diverting loop ileostomy Residual: >2.0 cm Peritoneal PREOPERATIVE DIAGNOSIS: High-grade carcinomatosis. POSTOPERATIVE DIAGNOSIS: High-grade carcinomatosis, pending final pathology, partial small bowel obstruction. FINDINGS: ~2L serous ascites evacuated. 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 Ovarian mass in pelvis, unable to palpate rectum/sigmoid. Small bowel with extensive dilation and collapsed large bowel, likely small bowel obstruction near ileocecal valve but unable to mobilize bowel sufficiently due to mesenteric carcinomatosis to visualize the obstruction. Carcinomatosis along diaphragm and in the left upper quadrant but evaluation was limited by small bowel. Tumor involving the root of the small bowel mesentery. FINAL DIAGNOSIS A. Right abdominal wall peritoneum, excision: High-grade serous carcinoma; see comment. B. Left abdominal wall peritoneum, excision: High-grade serous carcinoma; see comment. Diagnosis Comment Immunohistochemical stains were performed on block A1 and the tumor cells are positive for CK7, PAX8, ER, WT1, p16 and show aberrant (strong diffuse) staining for p53. A CK20 is negative. 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 04/19/2024 Visit: Normal post operative course. Surgical incisions are intact, healing well, and show no signs of infection. Surgical dave removed, steri- strips applied. Postop restrictions and wound care reviewed. Patient reports since discharge, she is able to eat better. She didn't bring her ostomy output log with her today but states that it has been <1200 cc. She is still taking oxycodone and tylenol once a day for her incisional pain. She is cleared to resume taking fosamax. Reviewed operative findings with small bowel with extensive dilation and collapsed large bowel, likely small bowel obstruction near ileocecal valve but unable to mobilize bowel sufficiently due to mesenteric carcinomatosis to visualize the obstruction. Therefore, primary debulking was aborted and DLI was performed. The result of p53 staining from her paracentesis was inconclusive but it was rechecked on her peritoneal biopsies and turned out to be aberrant. This confirms the diagnosis of high-grade serous carcinoma. Discussed a plan to initiate neoadjuvant chemotherapy and monitor her disease response with interval TI132h and CT scans. We will plan for interval debulking if she responds favorably to treatment. Patient was initially hesitant to consider chemotherapy as she has seen many ovarian cancer patients going through chemotherapy and start deconditioning. Discussed that every patient responds differently to therapy and there are medications that help control her symptoms. We could plan to have patient undergo chemotherapy in [place] with Dr Hall and follow up for scan review after 3 cycles to reassess her disease status for interval debulking surgery and ileostomy reversal. After our discussion,patient amenable to this plan. We will obtain genetic testing. Patient reports her brother had pancreatic cancer. I explained that20% of the patients with high-grade serous ovarian carcinoma were found to carry germline BRCA mutations and having the mutations indicating favorable response to chemotherapy. Current Treatment with Dr. Nile Hall in [place] Carboplatin AUC 6 and Taxol 135 mg/m2 for 4 cycles from 04/28/2024 - 07/01/2024 CA 125 Latest Ref Rng <39 U/mL 04/22/2024 320 05/18/2024 177 06/08/2024 66 06/30/2024 183 04/29/2024 FOLR1 positive 75% staining 05/07/2024 [facility] report 06/23/2024 [facility] was negative for a pathogenic variant. 06/23/2024 CT CHEST W IVCON IMPRESSION: 1. Stable subcentimeter pulmonary nodules. No new nodules are visualized. 2. No new thoracic lymphadenopathy. 06/23/2024 CT ABD/PEL W IVCON IMPRESSION: 1. Cystic mass with internal septations in the left pelvis has not appreciably changed in size compared to the prior study. There is a right adnexal solid lesion which appears separate from the cystic mass on the current study. 2. Left upper quadrant peritoneal thickening consistent with patient's history of peritoneal carcinomatosis. No ascites. 06/30/[address] 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 -Presented with SBO. Ileostomy. -Tolerating chemotherapy very well overall. -Reviewed CT images with her and her today. Although no significant change in size of cystic tumor left pelvis, no recurrence of ascites and CA125 trending lower very nicely. She has been able to eat better and has been gaining weight. -History of sever protein malnutrition. Plan: -Okay for cycle #4 this week pending neutrophil recovery. -Check CBC and pre-albumin level tomorrow. -Can consider Neulasta Friday. -See if can move up genetic counseling appointment. -Monitor CA125. -Has appointment with Dr. Buckner. Prealbumin Latest Ref Rng 17 - 36 mg/dL 07/01/2024 34 HEALTH MAINTENANCE: Last pap smear: 02/06/2017 - Negative Last mammogram: 07/07/2023 - Negative Last colonoscopy: 11/22/2015 normal SUBJECTIVE/INTERVAL HISTORY: Patient is feeling well and denies shortness of breath, nausea, vomiting, constipation, problems urinating, unexplained weight loss, or vaginal bleeding. OBJECTIVE: BP 116/68 Pulse 64 Temp 36.5 C (97.7 F) Ht 165.1 cm (5' 5) Wt 54.3 kg (119 lb 11.4 oz) SpO2 100% BMI 19.92 kg/m DARRION Engle July 16, 2024 3:20 PM Female in no acute distress. 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 Her CA125 decreased from 320 prior to initiation of her chemotherapy to 66 on 06/08/2020 after 3 courses of therapy but is now starting to elevate being 183 on 06/30/2024. I reviewed her CT scan that demonstrated that the ascites has resolved but her mass is actually increased in size. Unfortunately this appears to be [place] refractory disease. She is she is interested in what her life expectancy would be if she received no further therapy. I informed her that typically we have lumped all the patients who occur within 6 months of chemotherapy as 1 subgroup with a median survival of approx imately 10 months. But the patients who recur on therapy and are [place] refractory clearly have aworse prognosis. We currently have 2 studies for [place] refractory disease. One study [facility] [place] looking at a new viral agent with [place] based chemotherapy versus [place] based chemotherapy. Thisstudy had promising results and a phase 2 and [place] resistant and refractory patients with an overall response rate of 54%. The current studies comparing the viral [place] based chemotherapy versus [place] based chemotherapy in a phase 3 trial for FDA approval. She would be a candidate for this trial but this is a randomized trial where the patient may only receive standard of care which woul d be a [place] based chemotherapy with Avastin. This may be an acceptable regimen but she would [facility]. A second study involves harvesting her T cells multiplying them and read if using them an adaptive immunotherapy approach. This trial requires certain HLA type and this was drawn for the patient today after informed consent and if her HLA type is eligible the neck step is to study her tumor for a biomarker MAGE-4. At the time of her ileostomy, a section of tumor was obtained for such testing. I have asked her to get another CA125 so we can see if this value is continuing to increase. We will plan to have her presented tumor board in 10 days. Provider Attestation: I, Fredis Buckner MD, personally performed the services described in this documentation. All medicalrecord entries made by the scribe were at my direction and in my presence. I have reviewed the chart and discharge instructions (if applicable) and agree that the record reflects my personal performance and is accurate and complete. Fredis Buckner MD July 16, 2024 5:17 PM I have confirmed and edited as necessary, the history of the present illness (HPI). Interval changes in the history of present illness are noted. I have confirmed and edited as necessary, the PFSH and ROS obtained by others. I saw the patient and personally participated in the saenz components and agree with the documented findings and plan. Sincerely, Fredis Buckner M.D. Reviewed and corrected by Fredis Buckner M.D. The previous note written by Dr. Buckner dated 04/19/2024 was copied forward and the necessary changes were made. Medical Decision Making: Problems: High: Illness/injury w/ threat to life/body function Data: Unique test result(s) reviewed: 2 Unique test(s) ordered: 1 Risk: High: Decision on elective major surgery w/ risk factors Medical Decision Making Level: 5 - High CC: Nile Hall DO documented in this encounterFostoria City Hospital10-11-2024 NoteSt[facility]-25-[facility] NoteSt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 HPI: The patient is a 74-year-old female with a past medical history as outlined below. CT A/P 03/10/2024: RESULT: Liver: No mass. Biliary: No bile duct dilation. No calcified gallstones. Spleen: No mass. No splenomegaly. Pancreas: Mildly prominent pancreatic duct. No lesions identified. Adrenals: No mass. Kidneys: No renal lesions or hydronephrosis. GI tract: No dilation or wall thickening. Lymph nodes: No abdominal or pelvic lymphadenopathy. Mesentery/Peritoneum: Moderate volume ascites. No loculated collections. Infiltrative change in mesenteric fat and areas of peritoneal thickening with possible mild serosal thickening of scattered small bowel loops. Retroperitoneum: No mass. Vasculature: - Abdominal aorta and iliac arteries: Atherosclerotic calcifications without aneurysm. - Celiac and SMA: Patent without stenosis. - Portal venous system (SMV, splenic vein, portal vein and branches): Patent. - Hepatic veins: Patent. Pelvis: Left pelvic 9.0 x 7.5 x 11.1 cm cystic mass with internal septations and areas of minimal peripheral wall thickening. Contiguous 6.5 x 3.7 cm heterogeneous soft tissue mass centered in the right pelvis (5:112). Moderate volume ascites at the upper pelvis there is a peritoneal thickening. Presacral edema. Bones/Soft Tissues: No acute findings. Lower thorax: Unremarkable. Localizer images: No additional findings. IMPRESSION: Large complex cystic mass in the left pelvis with adjacent soft tissue component extending into the right pelvis concerning for ovarian neoplasm. Ascites and changes of carcinomatosis also present in the abdomen and pelvis. CT Chest 03/10/2024: IMPRESSION: Few small sub-6 mm indeterminate lung nodules. Continued attention on follow-up is suggested given history of pelvic mass. No thoracic lymph node enlargement. Focal thickening along the right anterior pleura and a cluster of subcentimeter right cardiophrenic lymph nodes. Continued attention on follow-up is suggested. 04/29/2024-- Exploratory laparotomy Aborted Debulking Peritoneal biopsies Diverting loop ileostomy ~2L serous ascites evacuated. 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 Ovarian mass in pelvis, unable to palpate rectum/sigmoid. Small bowel with extensive dilation and collapsed large bowel, likely small bowel obstruction near ileocecal valve but unable to mobilize bowel sufficiently due to mesenteric carcinomatosis to visualize the obstruction. Carcinomatosis along diaphragm and in the left upper quadrant but evaluation was limited by small bowel. Tumor involving the root of the small bowel mesentery. Pathology: A. Right abdominal wall peritoneum, excision: High-grade serous carcinoma; see comment. B. Left abdominal wall peritoneum, excision: High-grade serous carcinoma; see comment. Per initial office consultation: Appetite still low. Has early satiety. Abdominal pain much improved. Ostomy working well. Current therapy: 1) Carboplatin/paclitaxel. Presents for ongoing oncologic management. Interim history: She continues to tolerate treatment very well overall. No symptoms of sensory neuropathy. Weight has been trending up. No nausea. Ostomy working well. 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 left sterotactic COLONOSCOPY FLX DX W/COLLJ SPEC WHEN PFRMD 03/09/2012 Colonoscopy COLONOSCOPY FLX DX W/COLLJ SPEC WHEN PFRMD 11/22/2015 Colonoscopy (MAC) ESOPHAGOGASTRODUODENOSCOPY TRANSORAL DIAGNOSTIC 11/22/2015 EGD (MAC) ILEOSTOMY 04/2024 ALLERGIES No Known Allergies Current Outpatient Medications Medication Sig dexAMETHasone (DECADRON) 4 mg tablet Take 5 tablets 12 and 6 hours prior to chemotherapy treatment. ondansetron orally disintegrating (ZOFRAN ODT) 8 mg disintegrating tablet Take 1 tablet by mouth every 8 hours as needed for nausea/vomiting. prochlorperazine (COMPAZINE) 10 mg tablet Take 1 tablet by mouth every 6 hours as needed. acetaminophen (TYLENOL EXTRA STRENGTH) 500 mg tablet Take 1,000 mg by mouth every 6 hours as neededfor pain. nutritional supplement ([employer] STANDARD 1.4) 0.06 G - 1.4 Kcal/mL oral liquid Take 325 mL by mouth three times a day. dicyclomine (BENTYL) 10 mg capsule Take 1 or 2 before meals, as needed. (Patient taking differently: Take 10 mg by mouth three times a day as needed (abdominal cramping). Take 1 or 2 before meals, asneeded.) Loperamide HCl (ANTI-DIARRHEAL) 2 mg tab Take 1 tablet by mouth as needed. iv contrast (will be provided with radiology test) CT Chest W -Inject, intravenously, once for 1 dose.No IV access, insert saline lock prior to the beginning of sedation, infusion, injection of imaging exam. Discontinue saline lock post exam. If Pt. has a central line or IVAD, may access for administration according to line specific nursing protocol. Once exam is complete flush line and de-accessaccording to line specific nursing protocol in the CT contrast administration guidelines link. iv contrast (will be provided with radiology test) CT ABD/PEL -Inject, intravenously, once for 1 dose.No IV access, insert saline lock prior to the beginning of sedation, infusion, injection of imaging exam. Discontinue saline lock post exam. If Pt. has a central line or IVAD, may access for administration according to line specific nursing protocol. Once exam is complete flush line and de-accessaccording to line specific nursing protocol in the CT contrast administration guidelines link. enteric contrast (will be provided with radiology test) For CT ABD/PEL W IVCON Routine order Administer, As Directed One Time Only, via Oral, Rectal, both Oral and Rectal, Enteric Tube, Stoma or Indwelling Catheter, Enteric Contrast as designated per enteric contrast guidelines alendronate (FOSAMAX) 70 mg tablet Take 1 tablet by mouth one time a week. Take with a full glass of water, on an empty stomach; do NOT lie down for 30minutes. (Patient not taking: Reported on 06/08/2024) Cholecalciferol, Vitamin D3, 50 mcg (2,000 unit) cap Take 1 capsule by mouth once daily. (Patient not taking: Reported on 06/08/2024) No current facility-administered medications for this visit. Social History Tobacco Use Smoking status: Never Smokeless tobacco: Never Vaping Use Vaping status: Never Used Substance Use Topics Alcohol use: Yes Comment: social Drug use: No Family History Problem Relation Age of Onset None Mother None Father Pancreatitis Brother Breast Cancer Maternal Aunt Anesthesia Problems No Family History ROS: Constitutional: No fever. No drenching night sweats. Normal appetite. No unexplained weight loss. No significant fatigue. Neuro: No recent STAHL, vertigo, dizziness or imbalance. HEENT: No recent change in voice, vision or hearing. Resp: No cough, wheeze of hemoptysis. No shortness of breath at rest. CVS: No exertional chest pain, PND or orthopnea. No extremity swelling/edema. No symptoms of claudication. No painful or tender varicose veins. GI: See above. : No dysuria or gross hematuria. Endo: No hot flashes. No polyuria or polydipsia. No heat or cold intolerance. Musculoskeletal: No bone, back, joint and muscular pain. Derm: No current rash. No history of jaundice. No diffuse pruritis. Heme: No unusual bleeding and unexplained bruising. Psych: Normal mood. PHYSICAL EXAM: Vitals: Blood pressure 112/69, pulse 75, temperature 36.6 C (97.9 F), temperature source Temporal, weight 53.8 kg (118 lb 8 oz), SpO2 100%. Thin, but well-appearing and in no acute distress. EYES: Sclerae are anicteric bilaterally. RESPIRATORY: Inspiratory breath sounds are of normal intensity in all moyer. CARDIOVASCULAR: Rhythm is regular. ABDOMEN: The abdomen is nondistended. Extremities: No swelling or edema. SKIN: No jaundice. LABS: Latest Ref Rng 04/22/2024 05/18/2024 06/08/2024 06/30/2024 WBC 3.70 - 11.00 k/uL 3.04 (L) RBC 3.90 - 5.20 m/uL 3.76 (L) Hemoglobin 11.5 - 15.5 g/dL 11.0 (L) Hematocrit 36.0 - 46.0 % 33.3 (L) MCV 80.0 - 100.0 fL 88.6 MCH 26.0 - 34.0 pg 29.3 MCHC 30.5 - 36.0 g/dL 33.0 RDW-CV 11.5 - 15.0 % 18.6 (H) Platelet Count 150 - 400 k/uL 183 MPV 9.0 - 12.7 fL 8.9 (L) Neut% % 26.9 Abs Neut (ANC) 1.45 - 7.50 k/uL 0.82 (L) Lymph% % 38.5 Abs Lymph 1.00 - 4.00 k/uL 1.17 Bristol% % 30.3 Abs [place] <0.87 k/uL 0.92 (H) Eosin% % 1.3 Abs Eosin <0.46 k/uL 0.04 Baso% % 2.0 Abs Baso <0.11 k/uL 0.06 Immature Gran % % 1.0 IMMATURE GRANS (ABS) <0.10 k/uL 0.03 NRBC /100 WBC 0.0 Absolute nRBC <0.01 k/uL <0.01 DTYPE Auto Protein, Total 6.3 - 8.0 g/dL 7.4 Albumin 3.9 - 4.9 g/dL 4.6 Calcium 8.5 - 10.2 mg/dL 9.8 Bilirubin, Total 0.2 - 1.3 mg/dL 0.2 Alkaline Phosphatase 34 - 123 U/L 75 AST 13 - 35 U/L 15 ALT 7 - 38 U/L 15 Glucose 74 - 99 mg/dL 82 BUN 7 - 21 mg/dL 21 Creatinine 0.58 - 0.96 mg/dL 0.83 Sodium 136 - 144 mmol/L 138 Potassium 3.7 - 5.1 mmol/L 3.7 Chloride 98 - 107 mmol/L 103 CO2 22 - 30 mmol/L 23 Anion Gap 8 - 15 mmol/L 12 eGFR >=60 mL/min/1.73m 75 CA 125 <39 U/mL 320 (H) 177 (H) 66 (H) Magnesium 1.7 - 2.3 mg/dL 2.0 Genetic testing: [facility] panel negative. 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 [facility]: FOLR1 +75% membrane staining. [facility] NGS: TP53 32% VAF. -Variant of uncertain significance NTRK2. -TMB low. -HRD genomic scar score low. -MSI stable. 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 -Presented with SBO. Ileostomy. -Tolerating chemotherapy very well overall. -Reviewed CT images with her and her today. Although no significant change in size of cystic tumor left pelvis, no recurrence of ascites and CA125 trending lower very nicely. She has been able to eat better and has been gaining weight. -History of sever protein malnutrition. Plan: -Okay for cycle #4 this week pending neutrophil recovery. -Check CBC and pre-albumin level tomorrow. -Can consider Neulasta Friday. -See if can move up genetic counseling appointment. -Monitor CA125. -Has appointment with Dr. Buckner. Portions of this documentation were copied and pasted from previous office visit notes in order to provide a cohesive continuity of the history. The note has been reviewed and edited and updated as necessary. I spent a total of 30 minutes on the date of the service which included preparing to see the patient, [id number] patient care, completing clinical documentation, obtaining and/or reviewing separately obtained history, performing a medically appropriate examination, counseling and educating the pat ient/family/caregiver, ordering medications, tests, or procedures, communicating with other HCPs (not separately reported), and communicating results to the patient/family/caregiver. Nile Hall DO documented in this encounterFostoria City [facility]09-18-2024 History of Present illness Narrative* Reef Bushra Garcia RT(R) - 06/23/2024 10:40 AM EDT Radiology Service Progress Note DATE OF SERVICE: June 23, 2024 TIME: 11:47 AM PATIENT IDENTITY VERIFICATION COMPLETED USING TWO (2) STANDARD IDENTIFIERS: Name and Date of confirmed by patient verbally. FALL SCREENING: Has the patient had 2 falls in the last year or 1 fall with injury or currently using an Ambulatory Assistive Device (Walker, Cane, Wheelchair, Crutches, etc.)? No PATIENT GENDER DATA: Female. status: : No status: NO. PATIENT RELEVANT IMPLANT DATA REVIEWED: Yes PATIENT PRESENTS WITH AN IMPLANTABLE OR ATTACHED MILK TANKER DRIVER: No ALLERGIES: Reviewed and unchanged CONTRAST ALLERGY: NO. EXAM: CT -CONTRAST INDUCED NEPHROPATHY RISK FACTORS: Patient age > 60 years CREATININE: Creatinine Date Value Ref Range Status 06/08/2024 0.83 0.58 - 0.96 mg/dL Final 05/18/2024 0.84 0.58 - 0.96 mg/dL Final 04/28/2024 0.75 0.58 - 0.96 mg/dL Final Estimated Glomerular Filtration Rate Date Value Ref Range Status 06/08/2024 75 >=60 mL/min/1.73m Final Comment: Estimated Glomerular Filtration Rate (eGFR) is calculated using the 2020 CKD-EPI creatinine equation. This equation utilizes serum creatinine, sex, and age as parameters. The creatinine assay has traceable calibration to isotope dilution- mass spectrometry. Refer to KDIGO guidelines for clinical interpretation. In patients with unstable renal function, e.g. those with acute kidney injury, the eGFRmay not accurately reflect actual GFR. eGFR- Date Value Ref Range Status 06/15/2019 >60 Final P.O.C.T. RESULTS: POC done: Yes, See Lab Tab June 23, 2024 TREATMENT: N/A PERIPHERAL IV DATA: Ambulatory: A peripheral IV was started in the Left forearm with a Angio cath: 22 gauge. RADIOLOGY DEPARTMENT: CT; Exam(s) Completed: Chest Abdomen Pelvis SIGNATURE: RT Maira(R) PATIENT NAME: Sal Bautista DATE: June 23, 2024 TIME: 11:47 AM documented in this encounterFostoria City Hospital09-18-[facility]24 NoteSt[facility] NoteSt[facility] History of Present illness Narrative* Miladis Parker MS - 06/23/2024 1:13 AM EDT Genetic test results Sal Bautista's Multi-Cancer panel through [facility] was negative for a pathogenic variant. Please see [employer] message for further discussion. Miladis Parker MS, [facility] [place] Licensed, Certified Genetic Counselor documented in this encounterFostoria City Hospital09-13-2024 History of Present illness Narrative* Estefany Valerio, LOPEZ - 06/18/2024 1:30 PM EDT Oncology Nutrition Therapy Reassessment I have communicated my name and active licensure. The patient's identity and physical location wereverified at the time of this visit. Either the patient or their legal claim representative has been informed of the risks and benefits of -- and alternatives to -- treatment through a remote evaluation andconsents to proceed with the evaluation remotely. RECOMMENDED MALNUTRITION DIAGNOSIS: SEVERE PROTEIN-CALORIE MALNUTRITION In the context of Chronic Illness or Injury based on: Insufficient Energy Intake: Less than 75% energy intake compared to estimated needs for greater than or equal to 1 month Subcutaneous Fat Loss: Severe Loss Muscle Loss Severe Loss Nutrition Diagnosis: Inadequate oral intake, related to, restricted input with ostomy placement, asevidenced by patient interview Nutrition Intervention: -Consider meal prepping prior to treatment. - aim for 5-6 small/frequent meals - incorporate lean sources of protein/plant based proteins at meals - Stay well hydrated - sip on fluids throughout the day - start supplementation: [employer] 1.0 or 1.4 once per day -Strategies to manage treatment side effects: thickening foods for ostomy Nutrition Monitoring & Evaluation: PO intake Supplement tolerance Wt status Biochemical Markers Skin integrity Plan of care Patient Condition: Pt presents for nutrition counseling for neoadjuvant chemotherapy for ovarian cancer; Pt is currently being treated with pretreatment. Pt denies food allergies/intolerances. Nutrition Assessment: Patient is at high risk from a nutritional standpoint with additional weight loss. 05/18/24: Improved ostomy output. Pt is using [employer] 1.4 once per day Total daily calories is estimated to be around 1200 calories. She has had additional weight loss and discussed increasing nutrition to 1600 calories per day. Pt will start using nutrition jitendra ([employer] or [employer]) to log at least three days of nutrition. Educational materials provided: diet with ileostomy 06/18/24: Improving from a nutrition standpoint Ostomy output - adequate, thicker [employer] 1.4 twice per day (1.5 cartons) Food record - pen and paper Calories - able to get up to 0039-8279 calories per day Weight gain: 5lbs over two weeks Added avocado and orange juice with egg, melon. Fear of adding too many foods too quickly Homemade sweet potato muffins - output orange flecks Fear of IBS (pain on left side) Gatorade - up and down the steps - drinking more gatorade Gas -ostomy output - especially after [employer] Pesca vegetarian - salmon - Skin is dry and flaky - Topics addressed: Add DHA/EPA supplement, try lower fiber oral nutrition supplement (soylent, compleat std 1.4) for reduced gas, continue adding in foods on illeostomy diet list. Readiness to Learn: Cognitive ability: Alert and oriented Motivation to learn: Interested Family support: High - Very involved in pt care Instruction provided to: Patient and Spouse Patient learns best by: Multiple Methods Factors affecting learning: None Physical limitations affecting learning: None Anthropometrics: HEIGHT/WEIGHT/BSA Height BSA (m2) Weight 11/14/2023 1.66 m2 132 lb 02/24/2024 1.61 m2 125 lb 03/15/2024 165.3 cm (5' 5.08) 1.61 m2 124 lb 03/17/2024 165.1 cm (5' 5) 1.58 m2 120 lb 9.5 oz 1.58 m2 120 lb 9.5 oz 03/20/2024 1.56 m2 117 lb 4.6 oz 03/22/2024 1.59 m2 121 lb 4.1 oz 03/23/2024 1.59 m2 121 lb 14.6 oz 03/29/2024 1.6 m2 123 lb 04/02/2024 165.1 cm (5' 5) 1.6 m2 123 lb 10.9 oz 04/09/2024 165.1 cm (5' 5) 1.6 m2 04/15/2024 165.1 cm (5' 5) 1.61 m2 124 lb 12.8 oz 04/19/2024 1.6 m2 123 lb 04/22/2024 166.4 cm (5' 5.5) 1.6 m2 122 lb 04/28/2024 167 cm (5' 5.75) 1.59 m2 120 lb 8 oz 05/18/2024 1.52 m2 110 lb Estimated body mass index is 18.72 kg/m as calculated from the following: Height as of 04/28/24: 167 cm (5' 5.75). Weight as of 06/08/24: 52.2 kg (115 lb 1.3 oz). Resting Metabolic Rate: 1077 Weight Change: 7.5% wt loss in 5 mo Dosing Weight: 55.3 kg Estimated kilocalorie needs: 9309-5350 kilocalories determined by 30-35 kcal/kg Estimated protein needs: 65-85 grams determined by 1.2-1.5 g/kg Dosing weight Estimated fluid needs: 1950 milliliters based on 35 mL/kg Assessment of Functional Status: Unable to assess Potential Signs of Inflammation: chronic condition Allergies: Patient has no known allergies. Medications: Current Outpatient Medications Medication Sig Dispense Refill iv contrast (will be provided with radiology test) CT Chest W -Inject, intravenously, once for 1 dose.No IV access, insert saline lock prior to the beginning of sedation, infusion, injection of imaging exam. Discontinue saline lock post exam. If Pt. has a central line or IVAD, may access for administration according to line specific nursing protocol. Once exam is complete flush line and de-accessaccording to line specific nursing protocol in the CT contrast administration guidelines link. 1 Each 0 iv contrast (will be provided with radiology test) CT ABD/PEL -Inject, intravenously, once for 1 dose.No IV access, insert saline lock prior to the beginning of sedation, infusion, injection of imaging exam. Discontinue saline lock post exam. If Pt. has a central line or IVAD, may access for administration according to line specific nursing protocol. Once exam is complete flush line and de-accessaccording to line specific nursing protocol in the CT contrast administration guidelines link. 1 Each 0 enteric contrast (will be provided with radiology test) For CT ABD/PEL W IVCON Routine order Administer, As Directed One Time Only, via Oral, Rectal, both Oral and Rectal, Enteric Tube, Stoma or Indwelling Catheter, Enteric Contrast as designated per enteric contrast guidelines 1 Each 0 dexAMETHasone (DECADRON) 4 mg tablet Take 5 tablets 12 and 6 hours prior to chemotherapy treatment.10 tablet 5 ondansetron orally disintegrating (ZOFRAN ODT) 8 mg disintegrating tablet Take 1 tablet by mouth every 8 hours as needed for nausea/vomiting. 30 tablet 2 prochlorperazine (COMPAZINE) 10 mg tablet Take 1 tablet by mouth every 6 hours as needed. 30 tablet2 acetaminophen (TYLENOL EXTRA STRENGTH) 500 mg tablet Take 1,000 mg by mouth every 6 hours as neededfor pain. nutritional supplement ([employer] STANDARD 1.4) 0.06 G - 1.4 Kcal/mL oral liquid Take 325 mL by mouth three times a day. 3250 mL 2 dicyclomine (BENTYL) 10 mg capsule Take 1 or 2 before meals, as needed. (Patient taking differently: Take 10 mg by mouth three times a day as needed (abdominal cramping). Take 1 or 2 before meals, asneeded.) 120 capsule 5 alendronate (FOSAMAX) 70 mg tablet Take 1 tablet by mouth one time a week. Take with a full glass of water, on an empty stomach; do NOT lie down for 30minutes. (Patient not taking: Reported on 06/08/2024) 12 tablet 3 Cholecalciferol, Vitamin D3, 50 mcg (2,000 unit) cap Take 1 capsule by mouth once daily. (Patient not taking: Reported on 06/08/2024) Loperamide HCl (ANTI-DIARRHEAL) 2 mg tab Take 1 tablet by mouth as needed. No current facility-administered medications for this visit. Need for Follow up: Will follow up in one month Referred/Supervised by: Dr Rafael LEMOS Billing Type: Re-assess/15 min 3 units Billed Time: 45 minutes Signed by: Estefany Valerio RD, RANI documented in this encounterFostoria City Hospital09-13-2024 NoteSt[facility] Telephone encounter Note* Telephone Encounter - Tarsha Carballo - 06/15/2024 3:35 PM EDT Spoke with patient and connected her to a ferryboat captain for Dr. Buckner for scheduling. Tarsha Carballo [facility]09-10-2024 Miscellaneous Notes* Telephone Encounter - Tarsha Carballo - 06/15/2024 3:35 PM EDT Spoke with patient and connected her to a ferryboat captain for Dr. Buckner for scheduling. Tarsha Carballo * Telephone Encounter - Nile Hall DO - 06/14/2024 12:[address] Fredis Buckner wanted to see her for follow-up after her third cycle and CT scans. Please schedule her for appointment with him after the CTs. Nile Hall DO documented in this encounterFostoria City Hospital09-10-2024 NoteSt[facility] History of Present illness Narrative* Miladis Parker MS - 06/15/2024 8:52 AM EDT [facility] Department of Medical Genetics Consultation Note Genetic Counselor: Miladis Parker MS, CGC Patient: Sal Bautista This visit was conducted via [employer]. I have communicated my name and active licensure. The patient's identity and physical location were verified at the time of this visit. Either the patient or their legal claim representative has been informed of the risks and benefits of -- and alternatives to -- treatment through a remote evaluation and consents to proceed with the evaluation remotely. HIGH LEVEL SUMMARY: The patient's personal and family history is potentially suggestive of a hereditary cancer syndrome. The patient provided informed consent for Multi-Cancer panel through [facility]. Results are expected in 2 weeks from the time of sample collection. Genetics consultation is recommended for patient's . IDENTIFICATION AND CHIEF COMPLAINT: Dr. Buckner requested a consultation for genetic counseling and risk assessment for Sal Bautista, a74 year old female, for discussion of her personal history of ovarian cancer. She presents to clinic today to discuss the possibility of a genetic predisposition to cancer, and to further clarify herrisks, as well as her family members' risks for cancer. HISTORY OF PRESENT ILLNESS: In 2023, at the age of 73, Sal Bautista was diagnosed with high grade serous carcinoma of the ovaries. This is being treated with neoadjuvant chemotherapy with plans for debulking surgery. PAST MEDICAL HISTORY 07/05/2008: Actinic keratosis 07/05/2008: LEYVA ANGIOMA///NEVUS, NON-NEOPLASTIC 05/06/2008: Family history of osteoporosis 04/22/2024: High grade ovarian cancer (HCC) No date: Irritable bowel syndrome No date: Osteopenia 07/05/2008: Other chronic dermatitis due to solar radiation 05/06/2008: Other seborrheic keratosis No date: Ovarian cancer (HCC) 07/05/2008: SOLAR LENGINES///DYSCHROMIA OTHER PAST SURGICAL HISTORY 1993?: BREAST BIOPSY Comment: left sterotactic 03/09/2012: COLONOSCOPY FLX DX W/COLLJ SPEC WHEN PFRMD Comment: Colonoscopy 11/22/2015: COLONOSCOPY FLX DX W/COLLJ SPEC WHEN PFRMD Comment: Colonoscopy (MAC) 11/22/2015: ESOPHAGOGASTRODUODENOSCOPY TRANSORAL DIAGNOSTIC Comment: EGD (MAC) 04/2024: ILEOSTOMY CANCER SURVEILLANCE HISTORY: Mammograms: Yes / annually Breast MRI's: No Breast Biopsies: Yes / benign Colonoscopy: Yes EGD: Yes GI Polyps: No Dermatology: Yes / lipoma on arm SOCIAL HISTORY: Social History Tobacco Use Smoking status: Never Smokeless tobacco: Never Vaping Use Vaping status: Never Used Substance Use Topics Alcohol use: Yes Comment: social Drug use: No FAMILY HISTORY: We obtained a detailed, 4-generation family history. Significant diagnoses are listed below: 2 daughters 1 brother: pancreatic cancer, 1 sister: no cancer Mother: a+w 94 Father: no cancer, 2 pat uncles, 2 pat aunts (1 w/ breast cancer) 1 maternal uncle, 1 maternal aunt (aunt had breast cancer) Maternal male 1st cousin with brain cancer A copy of the patient's pedigree will be available under the scanned documents tab following today's visit. GENETIC COUNSELING RISK ASSESSMENT, DISCUSSION, AND SUGGESTED FOLLOW UP: We reviewed the natural history and genetic etiology of sporadic, familial and hereditary cancer syndromes. The patient's personal and family history is potentially suggestive of a hereditary cancer syndrome. The patient meets NCCN HBOC testing criteria based on her personal history of ovarian cancer. We discussed that identification of a hereditary cancer syndrome may help her care providers tailorher medical management. If a mutation is detected, the patient will be referred back to the referring provider and to any additional appropriate care providers to discuss the relevant options. Inheritance of hereditary cancer syndromes was discussed with the patient. If a mutation is not found in the patient, this will decrease the likelihood of a hereditary cancersyndrome as the explanation for the patient's personal and family history of cancer. However, it cannot completely rule out this possibility. Cancer surveillance options would be discussed for the patient according to the appropriate standard National Comprehensive Cancer Network and [place] [employer] guidelines, with consideration of their personal and family history risk factors. In this case, the patient will be referred back to their care providers for discussions of management. Based on this assessment of the patient's family and personal history, genetic testing is recommended. It was reviewed that if she were to have a hereditary cause for her ovarian cancer it would mostlikely be due to a BRCA1/2 mutation. It was also discussed that other genes beyond BRCA1/2 could account for the history and be tested along with BRCA1/2 via a multigene panel. The patient was offered Multi-Cancer panel through [facility]. After considering the risks, benefits, and limitations, the patient chose to pursue and provided informed consent for the following testing: Multi-Cancer panel through [facility]. The Multi-Cancer Panel includes AIP, ALK, APC, JANEY, AXIN2, BAP1, BARD1, BLM, BMPR1A, BRCA1, BRCA2, BRIP1, CDC73, CDH1, CDK4, CDKN1B, CDKN2A, CHEK2, CTNNA1, DICER1, EGFR, EPCAM, FH, FLCN, GREM1, HOXB13, KIT, LZTR1, MAX, MBD4, MEN1, MET, MITF, MLH1, MSH2, MSH3, MSH6, MUTYH, NF1, NF2, NTHL1, PALB2, PDGFRA, PMS2, POLD1, POLE, POT1, CXEEO9R, PTCH1, PTEN, RAD51C, RAD51D, RB1, RET, SDHA, SDHAF2, SDHB, SDHC, SDHD, SMAD4, SMARCA4, SMARCB1, SMARCE1, STK11, SUFU, CWEQ539, TP53, TSC1, TSC2, and VHL The Multi-Cancer panel looks at genes associated with cancers of the breast, gynecologic tract (ovarian, uterine/endometrial), gastrointestinal system (colorectal, gastric, pancreatic), endocrine glands (thyroid, parathyroid, pituitary, adrenal glands), genitourinary tract (renal/urinary tract, prostate), skin (melanoma, basal cell carcinoma), and brain/nervous system. We discussed that an NGS panel can rarely result in an unexpected finding which may or may not be related to the presenting phenotype. Per the patient's request, I will contact her by myChart or telephone to review these results. A follow up genetic counseling visit will be scheduled if requested. Mrs. Bautista reports her has a significant family history of ovarian cancer. It is recommended that he consider his own Genetics consultation as well. The patient was seen for a total of 35 minutes, greater than 50% of which was spent [id number] counseling. This plan is being carried out under the oversight of Dr. Ivelisse Limon. This note will also be sent to the referring provider via the electronic medical record. Miladis Parker MS, [facility] [place] Licensed, Certified Genetic Counselor [facility] CC: Dr. Fredis Dillon documented in this encounterFostoria City Hospital09-09-2024 Telephone encounter Note * Telephone Encounter - Nile Hall DO - 06/14/2024 12:[address] Fredis Buckner wanted to see her for follow-up after her third cycle and CT scans. Please schedule her for appointment with him after the CTs. Nile Hall DO [facility]09-06-2024 NoteHNO ID: [id number] Author: OLESYA DANIEL RN Service: ? Author Type: Registered Nurse Type: Progress Notes Filed: 06/11/2024 14:15 Note Text: Assessment unchanged from office visit with Yumiko Nuñez CNP on 06/08/24[facility]09-06-2024 History of Present illness Narrative* Olesya Daniel RN - 06/11/2024 9:00 AM EDT Assessment unchanged from office visit with Yumiko Nuñez CNP on 06/08/24 documented in this encounterFostoria City Hospital09-05-2024 Miscellaneous Notes* [facility] Agency DC - Avril Graham RN - 06/10/2024 9:26 AM EDT SITUATION: [facility] agency discharge visit completed today. only patient also present during today's visit. patient reports the following: Allergies--reviewed Medications--reviewed current medications Falls--None BACKGROUND: Reason for Home Care: new ileostomy ASSESSMENT: SN greeted at door by patient no DME and demonstrates stable gait. Patient appears in no acute distress. Patient/CG concerns verbalized today: no special concerns Vitals (see flow sheet for details): stable SN findings today: Pt ambulated to bathroom for care. She completed all steps without direction forpouch change and the previously noted skin irritation has resoved. There is a slight bit of rednessat 6 oclock; there was no evidence of any indermining of stool today. SN instructed pt on use of skin prep for the minor skin irriations that are not moist and she did this today. Pt feels comfortable being on her own at this time. general manager food to set up acct at [facility] and updated supply list on fron of chart. See intervention summary for education details and any skills performed. Specific SN discharge instructions: Continue to change you pouch system twice a week and as needed.Use stoma powder and/or skin prep for any peristomal skin irritation. Patient encouraged to take all medication as ordered, eat a well-balanced diet, drink plenty of fluids including your nutritional supplement and follow up with all physician appointments. NOMNC: signed and present on EMR Discharged due to Goals met. Patient discharged from Home Care to: self-care RECOMMENDATION: Additional follow ups recommended: None Patient to follow up with Dr. Buckner for additional medical questions/concerns. documented in this encounterFostoria City Hospital09-05-2024 Patient's home Note* [facility] Agency DC - Avril Graham RN - 06/10/2024 9:26 AM EDT SITUATION: [facility]dc agency discharge visit completed today. only patient also present during today's visit. patient reports the following: Allergies--reviewed Medications--reviewed current medications Falls--None BACKGROUND: Reason for Home Care: new ileostomy ASSESSMENT: SN greeted at door by patient no DME and demonstrates stable gait. Patient appears in no acute distress. Patient/CG concerns verbalized today: no special concerns Vitals (see flow sheet for details): stable SN findings today: Pt ambulated to bathroom for care. She completed all steps without direction forpouch change and the previously noted skin irritation has resoved. There is a slight bit of rednessat 6 oclock; there was no evidence of any indermining of stool today. SN instructed pt on use of skin prep for the minor skin irriations that are not moist and she did this today. Pt feels comfortable being on her own at this time. general manager food to set up acct at [facility] and updated supply list on fron of chart. See intervention summary for education details and any skills performed. Specific SN discharge instructions: Continue to change you pouch system twice a week and as needed.Use stoma powder and/or skin prep for any peristomal skin irritation. Patient encouraged to take all medication as ordered, eat a well-balanced diet, drink plenty of fluids including your nutritional supplement and follow up with all physician appointments. NOMNC: signed and present on EMR Discharged due to Goals met. Patient discharged from Home Care to: self-care RECOMMENDATION: Additional follow ups recommended: None Patient to follow up with Dr. Buckner for additional medical questions/concerns. [facility] Work Phone: [phone] [facility]St[facility] History of Present illness Narrative* Linda Nuñez APRN.PHOTOGRAPHER LITHOGRAPHIC - 06/08/2024 1:11 PM EDT Chief Complaint Patient presents with: Established Patient HPI: Sal Bautista is a 74 year old female who presents here today for evaluation for treatment on Friday. Per Dr. Hall's previous note: CT A/P 03/10/2024: RESULT: Liver: No mass. Biliary: No bile duct dilation. No calcified gallstones. Spleen: No mass. No splenomegaly. Pancreas: Mildly prominent pancreatic duct. No lesions identified. Adrenals: No mass. Kidneys: No renal lesions or hydronephrosis. GI tract: No dilation or wall thickening. Lymph nodes: No abdominal or pelvic lymphadenopathy. Mesentery/Peritoneum: Moderate volume ascites. No loculated collections. Infiltrative change in mesenteric fat and areas of peritoneal thickening with possible mild serosal thickening of scattered small bowel loops. Retroperitoneum: No mass. Vasculature: - Abdominal aorta and iliac arteries: Atherosclerotic calcifications without aneurysm. - Celiac and SMA: Patent without stenosis. - Portal venous system (SMV, splenic vein, portal vein and branches): Patent. - Hepatic veins: Patent. Pelvis: Left pelvic 9.0 x 7.5 x 11.1 cm cystic mass with internal septations and areas of minimal peripheral wall thickening. Contiguous 6.5 x 3.7 cm heterogeneous soft tissue mass centered in the right pelvis (5:112). Moderate volume ascites at the upper pelvis there is a peritoneal thickening. Presacral edema. Bones/Soft Tissues: No acute findings. Lower thorax: Unremarkable. Localizer images: No additional findings. IMPRESSION: Large complex cystic mass in the left pelvis with adjacent soft tissue component extending into the right pelvis concerning for ovarian neoplasm. Ascites and changes of carcinomatosis also present in the abdomen and pelvis. CT Chest 03/10/2024: IMPRESSION: Few small sub-6 mm indeterminate lung nodules. Continued attention on follow-up is suggested given history of pelvic mass. No thoracic lymph node enlargement. Focal thickening along the right anterior pleura and a cluster of subcentimeter right cardiophrenic lymph nodes. Continued attention on follow-up is suggested. 04/29/2024-- Exploratory laparotomy Aborted Debulking Peritoneal biopsies Diverting loop ileostomy ~2L serous ascites evacuated. 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 Ovarian mass in pelvis, unable to palpate rectum/sigmoid. Small bowel with extensive dilation and collapsed large bowel, likely small bowel obstruction near ileocecal valve but unable to mobilize bowel sufficiently due to mesenteric carcinomatosis to visualize the obstruction. Carcinomatosis along diaphragm and in the left upper quadrant but evaluation was limited by small bowel. Tumor involving the root of the small bowel mesentery. Pathology: A. Right abdominal wall peritoneum, excision: High-grade serous carcinoma; see comment. B. Left abdominal wall peritoneum, excision: High-grade serous carcinoma; see comment. Per initial office consultation: Appetite still low. Has early satiety. Abdominal pain much improved. Ostomy working well. Current therapy: 1) Carboplatin/paclitaxel. Began 04/28/24 No new concerns today. Appetite:Good. Wt. up 5# Energy level:Ok, down for about 3 days after treatment. Denies fevers. Mouth:denies sores Resp:denies cough or sob Cardiac:denies chest pain/palpitations GI:ostomy, denies abd pain, n/v, ostomy functioning well :denies dysuria/hematuria Extrem:denies pain Endo:denies hot flashes Neuro:denies symptoms of neuropathy Skin:denies rashes Heme:denies bleeding The ROS is otherwise negative. Past medical history, appointments, medications, allergies reviewed. No changes. EXAM: BP 126/82 Pulse 64 Temp 36.2 C (97.1 F) (Temporal) Wt 52.2 kg (115 lb 1.3 oz) SpO2 100% BMI 18.72 kg/m APPEARANCE Well/thin appearing, alert, in no acute distress, well-hydrated HEART RRR with normal S1 and S2, no murmurs LUNG clear to auscultation LYMPH NODES No cervical lymphadenopathy, No supraclavicular lymphadenopathy, and No axillary lymphadenopathy. ABDOMEN ostomy, bowel sounds normoactive, soft, non-tender EXTREMITIES No edema NEURO Awake, alert and oriented x 3, Normal gait, and No involuntary motions. SKIN Skin color, texture, turgor normal, no suspicious rashes or lesions LABS: Latest Ref Rng 04/28/2024 05/18/2024 06/08/2024 WBC 3.70 - 11.00 k/uL 6.55 4.96 2.86 (L) RBC 3.90 - 5.20 m/uL 3.81 (L) 3.81 (L) 3.89 (L) Hemoglobin 11.5 - 15.5 g/dL 10.6 (L) 10.6 (L) 11.0 (L) Hematocrit 36.0 - 46.0 % 32.5 (L) 33.1 (L) 34.0 (L) MCV 80.0 - 100.0 fL 85.3 86.9 87.4 MCH 26.0 - 34.0 pg 27.8 27.8 28.3 MCHC 30.5 - 36.0 g/dL 32.6 32.0 32.4 RDW-CV 11.5 - 15.0 % 14.6 15.8 (H) 17.2 (H) Platelet Count 150 - 400 k/uL 439 (H) 299 250 MPV 9.0 - 12.7 fL 9.2 8.3 (L) 8.7 (L) Neut% % 67.0 49.0 Abs Neut (ANC) 1.45 - 7.50 k/uL 3.32 1.40 (L) Lymph% % 18.3 35.0 Abs Lymph 1.00 - 4.00 k/uL 0.91 (L) 1.00 [place]% % 12.9 13.6 Abs [place] <0.87 k/uL 0.64 0.39 Eosin% % 0.6 0.7 Abs Eosin <0.46 k/uL 0.03 <0.03 Baso% % 0.8 1.4 Abs Baso <0.11 k/uL 0.04 0.04 Immature Gran % % 0.4 0.3 IMMATURE GRANS (ABS) <0.10 k/uL <0.03 <0.03 NRBC /100 WBC 0.0 0.0 Absolute nRBC <0.01 k/uL <0.01 <0.01 <0.01 DTYPE Auto Auto CMP/Mag/CA125: Pending ASSESSMENT/PLAN: 1. 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 - Tolerating treatment well. - Reviewed CBC with pt. - CMP/Mag/CA125 pending. - Continue current medications. - Repeat CBC prior to treatment on Friday morning to recheck ANC. - Proceed as scheduled for treatment on Friday pending repeat ANC and all other labs. - Follow up as scheduled otherwise. - Pt. aware to call office with any questions/concerns. The patient indicates understanding of these issues and agrees with the plan. All documentation from previous visit of 05/18/24-Dr. Hall was copied and pasted, documentation hasbeen reviewed and edited as necessary for today's visit. Linda Nuñez APRN.PHOTOGRAPHER LITHOGRAPHIC documented in this encounterFostoria City Hospital08-26-2024 Miscellaneous Notes* SN Routine - Avril Graham RN - 05/31/2024 9:41 AM EDT SITUATION: [facility]dc routine visit completed today. only patient present during today's visit. patient reports the following: Allergies--reviewed Medications--reviewed current medications Falls--None BACKGROUND: Reason for Home Care: new ileostomy ASSESSMENT: SN greeted at door by patient no DME and demonstrates stable gait. Patient appears in no acute distress. Patient/CG concerns verbalized today: pt verbalizes that she thinks she did well with her independent pouch change on . Vitals (see flow sheet for details): stable SN findings today: Pt did all care with very little direction from SN today. She did have a small amount of stool undermining and from the back of the flange, it appears that she did not get the barrier ring all the way to the edge of the flange opening. There is some irritation to immedicate peristomal skin. Pt reports that she can feel it but it is not painful. She appropriately used the stoma powder on these areas. See intervention summary for education details. Patient demonstrated a need for further skilled SN services for ostomy management & education. Current Discharge plan: self-care and family support RECOMMENDATION: Next visit to focus on (be specific): probable agency dc. documented in this encounterFostoria City Hospital08-26-2024 Patient's home Note* SN Routine - Avril Graham RN - 05/31/2024 9:41 AM EDT SITUATION: Fdc routine visit completed today. only patient present during today's visit. patient reports the following: Allergies--reviewed Medications--reviewed current medications Falls--None BACKGROUND: Reason for Home Care: new ileostomy ASSESSMENT: SN greeted at door by patient no DME and demonstrates stable gait. Patient appears in no acute distress. Patient/CG concerns verbalized today: pt verbalizes that she thinks she did well with her independent pouch change on . Vitals (see flow sheet for details): stable SN findings today: Pt did all care with very little direction from SN today. She did have a small amount of stool undermining and from the back of the flange, it appears that she did not get the barrier ring all the way to the edge of the flange opening. There is some irritation to immedicate peristomal skin. Pt reports that she can feel it but it is not painful. She appropriately used the stoma powder on these areas. See intervention summary for education details. Patient demonstrated a need for further skilled SN services for ostomy management & education. Current Discharge plan: self-care and family support RECOMMENDATION: Next visit to focus on (be specific): probable agency dc. [facility] Work Phone: [phone] Telephone encounter Note* Telephone Encounter - Jason Oswald RN - 05/29/2024 12:10 PM EDT Shalini Soliz- Home care is requesting to extend home nurse visit orders 1wk2 beginning week of 05/30 due to peristomal issues. We would like to continue to see the patient a few more weeks to assist with getting the issue resolved. Thank you in advance for your review and response to this request. Jason Oswald RN [facility] Work Phone: 1(158) 348-798808-24-2024 Miscellaneous Notes* Telephone Encounter - Jason Oswald RN - 05/29/2024 12:10 PM EDT Shalini Fatima [facility] is requesting to extend home nurse visit orders 1wk2 beginning week of 05/30 due to peristomal issues. We would like to continue to see the patient a few more weeks to assist with getting the issue resolved. Thank you in advance for your review and response to this request. Jason Oswald RN [facility] documented in this encounterFostoria City Hospital08-20-2024 Telephone encounter Note * Telephone Encounter - Jason Oswald RN - 05/25/2024 11:56 AM EDT Shalini Buckner. May we extend home health nurse 1wk2 due to recent difficulties with ostomy? Thank you in advance for your review and response to this request. Jason Oswald RN [facility] Coordination [facility] Work Phone: [phone]) 747-357508-20-2024 Miscellaneous Notes* Telephone Encounter - Jason Oswald RN - 05/25/2024 11:56 AM EDT Shalini Buckner. May we extend home health nurse 1wk2 due to recent difficulties with ostomy? Thank you in advance for your review and response to this request. Jason Oswald RN [facility] documented in this encounterFostoria City Hospital08-19-2024 Miscellaneous Notes* SN Routine - Avril Graham RN - 05/24/2024 9:26 AM EDT SITUATION: Fdc routine visit completed today. only patient present during today's visit. patient reports the following: Allergies--reviewed Medications--reviewed current medications Falls--None BACKGROUND: Reason for Home Care: ileostomy care ASSESSMENT: SN greeted at door by patient no DME and demonstrates stable gait. Patient appears in no acute distress. Patient/CG concerns verbalized today: pt reports that she had some trouble with cutting the pouch and had to use two pouches. She is a little ueasy about dc today because of not having a backup if she has trouble again this week but feels that she should be able to be discharged next week. Vitals (see flow sheet for details): stable SN findings today:Pt ambulated to bathroom for care. when pt removed pouch, SN notes that she cut the opening too large and she has some irritation about 1/4 around the whole stoma, it is mild and pttreated appropriately with stoma powder. We measured stoma and it still measures 32 mm. Pt must have used the wrong line to cut on. She did cut the opening correctly today and and applied the pouch. SN was able to find a precut pouch on [employer] website and this was ordered today. Requesting to continue SN vs for 2 more weeks to assess peristomal skin irritation and assess new pouch system. It is unknown how long pt will have this ostomy and attempting to have a simpler pouching system. See intervention summary for education details. Patient demonstrated a need for further skilled SN services for ostomy management & education. Current Discharge plan: self-care RECOMMENDATION: Next visit to focus on (be specific): did precut pouches arrivs? Assess peristomal skin irritation documented in this encounterFostoria City Hospital08-19-2024 Patient's home Note* Routine - Avril Graham RN - 05/24/2024 9:26 AM EDT SITUATION: Fdc routine visit completed today. only patient present during today's visit. patient reports the following: Allergies--reviewed Medications--reviewed current medications Falls--None BACKGROUND: Reason for Home Care: ileostomy care ASSESSMENT: SN greeted at door by patient no DME and demonstrates stable gait. Patient appears in no acute distress. Patient/CG concerns verbalized today: pt reports that she had some trouble with cutting the pouch and had to use two pouches. She is a little ueasy about dc today because of not having a backup if she has trouble again this week but feels that she should be able to be discharged next week. Vitals (see flow sheet for details): stable SN findings today:Pt ambulated to bathroom for care. when pt removed pouch, SN notes that she cut the opening too large and she has some irritation about 1/4 around the whole stoma, it is mild and pttreated appropriately with stoma powder. We measured stoma and it still measures 32 mm. Pt must have used the wrong line to cut on. She did cut the opening correctly today and and applied the pouch. SN was able to find a precut pouch on [employer] website and this was ordered today. Requesting to continue SN vs for 2 more weeks to assess peristomal skin irritation and assess new pouch system. It is unknown how long pt will have this ostomy and attempting to have a simpler pouching system. See intervention summary for education details. Patient demonstrated a need for further skilled SN services for ostomy management & education. Current Discharge plan: self-care RECOMMENDATION: Next visit to focus on (be specific): did precut pouches arrivs? Assess peristomal skin irritation [facility] Work Phone: [phone] Telephone encounter Note* Telephone Encounter - Romel Michelle MD - 05/19/2024 7:50 PM EDT Error [facility]08-14-2024 Miscellaneous Notes* Telephone Encounter - Romel Michelle MD - 05/19/2024 7:50 PM EDT Error * Telephone Encounter - Estelle Monreal LPN - 05/19/2024 6:14 PM EDT Patient had called requesting PCP review testing results and advise. Reports given to PCP. Estelle Monreal LPN documented in this encounterFostoria City Hospital08-14-2024 Telephone encounter Note * Telephone Encounter - Estelle Monreal LPN - 05/19/2024 6:14 PM EDT Patient had called requesting PCP review testing results and advise. Reports given to PCP. Estelle Monreal LPN [facility]08-14-2024 Telephone encounter Note* Telephone Encounter - Tyesha Chery - 05/19/2024 11:40 AM EDT Face to Face Attestation uploaded. Documents signed and faxed to [facility] at [phone] [facility]08-14-2024 Miscellaneous Notes* Telephone Encounter - Tyesha Chery - 05/19/2024 11:40 AM EDT Face to Face Attestation uploaded. Documents signed and faxed to [facility] at [phone] documented in this encounterFostoria City Hospital08-14-2024 NoteHNO ID: [id number] Author: DORIE ANGELES RN Service: ? Author Type: Registered Nurse Type: Progress Notes Filed: 05/19/2024 13:39 Note Text: Pt stated no changes to assessment from OV yesterday. Dorie Angeles RNSt. [facility]08[facility] History of Present illness Narrative* Dorie Angeles RN - 05/19/2024 8:28 AM EDT Pt stated no changes to assessment from OV yesterday. Dorie Angeles RN documented in this encounterFostoria City Hospital08-14-2024 Telephone encounter Note * Telephone Encounter - Sana Morales - 05/19/2024 8:11 AM EDT Scheduled [facility] Work Phone: 1(410) 956-973408-14-2024 Miscellaneous Notes* Telephone Encounter - Sana Morales - 05/19/2024 8:11 AM EDT Scheduled * Telephone Encounter - Mer Smith LPN - 05/18/2024 2:01 PM EDT Pended. Mer Smith LPN * Telephone Encounter - Sana Morales - 05/18/2024 1:[address] orders. Schedule CT C/A/P 2 weeks after cycle 3. Cycle 3 is 06/11. * Telephone Encounter - Kellie Ferrera - 05/18/2024 1:05 PM EDT Check out comments: CT C/A/P 2 weeks after cycle 3. Kellie Ferrera documented in this encounterFostoria City [facility] Telephone encounter Note * Telephone Encounter - Mer Smith LPN - 05/18/2024 2:01 PM EDT Pended. Mer Smith LPN [facility]08-13-2024 Telephone encounter Note* Telephone Encounter - Sana Morales - 05/18/2024 1:[address] orders. Schedule CT C/A/P 2 weeks after cycle 3. Cycle 3 is 06/11. [facility]08-13-2024 Telephone encounter Note* Telephone Encounter - Kellie Ferrera - 05/18/2024 1:05 PM EDT Check out comments: CT C/A/P 2 weeks after cycle 3. Kellie Ferrera [facility]08-13-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 - aim for 5-6 small/frequent meals - incorporate lean sources of protein/plant based proteins at meals - Stay well hydrated - sip on fluids throughout the day - start supplementation: [employer] 1.0 or 1.4 once per day -Strategies to manage treatment side effects: thickening foods for ostomy Nutrition Monitoring & Evaluation: PO intake Supplement tolerance Wt status Biochemical Markers Skin integrity Plan of care Patient Condition: Pt presents for nutrition counseling for neoadjuvant chemotherapy for ovarian cancer\. Pt is currently being treated with pretreatment. Pt denies food allergies/intolerances. Nutrition Assessment: Patient is at high risk from a nutritional standpoint with additional weight loss. 05/18/24: Improved ostomy output. Pt is using [employer] 1.4 once per day Total daily calories is estimated to be around 1200 calories. She has had additional weight loss and discussed increasing nutrition to 1600 calories per day. Pt will start using nutrition jitendra ([employer] or [employer]) to log at least three days of nutrition. Educational materials provided: diet with ileostomy Readiness to Learn: Cognitive ability: Alert and oriented Motivation to learn: Interested Family support: High - Very involved in pt care Instruction provided to: Patient and Spouse Patient learns best by: Multiple Methods Factors affecting learning: None Physical limitations affecting learning: None Anthropometrics: HEIGHT/WEIGHT/BSA Height BSA (m2) Weight 11/14/2023 1.66 m2 132 lb 02/24/2024 1.61 m2 125 lb 03/15/2024 165.3 cm (5' 5.08) 1.61 m2 124 lb 03/17/2024 165.1 cm (5' 5) 1.58 m2 120 lb 9.5 oz 1.58 m2 120 lb 9.5 oz 03/20/2024 1.56 m2 117 lb 4.6 oz 03/22/2024 1.59 m2 121 lb 4.1 oz 03/23/2024 1.59 m2 121 lb 14.6 oz 03/29/2024 1.6 m2 123 lb 04/02/2024 165.1 cm (5' 5) 1.6 m2 123 lb 10.9 oz 04/09/2024 165.1 cm (5' 5) 1.6 m2 04/15/2024 165.1 cm (5' 5) 1.61 m2 124 lb 12.8 oz 04/19/2024 1.6 m2 123 lb 04/22/2024 166.4 cm (5' 5.5) 1.6 m2 122 lb 04/28/2024 167 cm (5' 5.75) 1.59 m2 120 lb 8 oz 05/18/2024 1.52 m2 110 lb Estimated body mass index is 17.89 kg/m as calculated from the following: Height as of 04/28/24: 167 cm (5' 5.75). Weight as of an earlier encounter on 05/18/24: 49.9 kg (110 lb). Resting Metabolic Rate: 1077 Weight Change: 7.5% wt loss in 5 mo Dosing Weight: 55.3 kg Estimated kilocalorie needs: 9723-0953 kilocalories determined by 30-35 kcal/kg Estimated protein needs: 65-85 grams determined by 1.2-1.5 g/kg Dosing weight Estimated fluid needs: 1950 milliliters based on 35 mL/kg Assessment of Functional Status: Unable to assess Potential Signs of Inflammation: chronic condition Allergies: Patient has no known allergies. Medications: Current Outpatient Medications Medication Sig Dispense Refill dexAMETHasone (DECADRON) 4 mg tablet Take 5 tablets 12 and 6 hours prior to chemotherapy treatment.10 tablet 5 ondansetron orally disintegrating (ZOFRAN ODT) 8 mg disintegrating tablet Take 1 tablet by mouth every 8 hours as needed for nausea/vomiting. 30 tablet 2 prochlorperazine (COMPAZINE) 10 mg tablet Take 1 tablet by mouth every 6 hours as needed. 30 tablet2 acetaminophen (TYLENOL EXTRA STRENGTH) 500 mg tablet Take 1,000 mg by mouth every 6 hours as neededfor pain. nutritional supplement ([employer] STANDARD 1.4) 0.06 G - 1.4 Kcal/mL oral liquid Take 325 mL by mouth three times a day. (Patient not taking: Reported on 04/22/2024) 3250 mL 2 dicyclomine (BENTYL) 10 mg capsule Take 1 or 2 before meals, as needed. (Patient taking differently: Take 10 mg by mouth three times a day as needed (abdominal cramping). Take 1 or 2 before meals, asneeded.) 120 capsule 5 alendronate (FOSAMAX) 70 mg tablet Take 1 tablet by mouth one time a week. Take with a full glass of water, on an empty stomach; do NOT lie down for 30minutes. 12 tablet 3 Cholecalciferol, Vitamin D3, 50 mcg (2,000 unit) cap Take 1 capsule by mouth once daily. Loperamide HCl (ANTI-DIARRHEAL) 2 mg tab Take 1 tablet by mouth as needed. No current facility-administered medications for this visit. Need for Follow up: Will follow up in one month Referred/Supervised by: Dr Rafael LEMOS Billing Type: Re-assess/15 min 3 units Billed Time: 45 minutes Signed by: Estefany Valerio RD, LD documented in [facility] encounterF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 HPI: The patient is a 74-year-old female with a past medical history as outlined below. CT A/P 03/10/2024: RESULT: Liver: No mass. Biliary: No bile duct dilation. No calcified gallstones. Spleen: No mass. No splenomegaly. Pancreas: Mildly prominent pancreatic duct. No lesions identified. Adrenals: No mass. Kidneys: No renal lesions or hydronephrosis. GI tract: No dilation or wall thickening. Lymph nodes: No abdominal or pelvic lymphadenopathy. Mesentery/Peritoneum: Moderate volume ascites. No loculated collections. Infiltrative change in mesenteric fat and areas of peritoneal thickening with possible mild serosal thickening of scattered small bowel loops. Retroperitoneum: No mass. Vasculature: - Abdominal aorta and iliac arteries: Atherosclerotic calcifications without aneurysm. - Celiac and SMA: Patent without stenosis. - Portal venous system (SMV, splenic vein, portal vein and branches): Patent. - Hepatic veins: Patent. Pelvis: Left pelvic 9.0 x 7.5 x 11.1 cm cystic mass with internal septations and areas of minimal peripheral wall thickening. Contiguous 6.5 x 3.7 cm heterogeneous soft tissue mass centered in the right pelvis (5:112). Moderate volume ascites at the upper pelvis there is a peritoneal thickening. Presacral edema. Bones/Soft Tissues: No acute findings. Lower thorax: Unremarkable. Localizer images: No additional findings. IMPRESSION: Large complex cystic mass in the left pelvis with adjacent soft tissue component extending into the right pelvis concerning for ovarian neoplasm. Ascites and changes of carcinomatosis also present in the abdomen and pelvis. CT Chest 03/10/2024: IMPRESSION: Few small sub-6 mm indeterminate lung nodules. Continued attention on follow-up is suggested given history of pelvic mass. No thoracic lymph node enlargement. Focal thickening along the right anterior pleura and a cluster of subcentimeter right cardiophrenic lymph nodes. Continued attention on follow-up is suggested. 04/29/2024-- Exploratory laparotomy Aborted Debulking Peritoneal biopsies Diverting loop ileostomy ~2L serous ascites evacuated. 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 Ovarian mass in pelvis, unable to palpate rectum/sigmoid. Small bowel with extensive dilation and collapsed large bowel, likely small bowel obstruction near ileocecal valve but unable to mobilize bowel sufficiently due to mesenteric carcinomatosis to visualize the obstruction. Carcinomatosis along diaphragm and in the left upper quadrant but evaluation was limited by small bowel. Tumor involving the root of the small bowel mesentery. Pathology: A. Right abdominal wall peritoneum, excision: High-grade serous carcinoma; see comment. B. Left abdominal wall peritoneum, excision: High-grade serous carcinoma; see comment. Per initial office consultation: Appetite still low. Has early satiety. Abdominal pain much improved. Ostomy working well. Current therapy: 1) Carboplatin/paclitaxel. Presents for ongoing oncologic management. Interim history: Received cycle #1. Tolerated well. Took a prophylactic Zofran in the mornings since she occasionally felt slightly queasy in the morning. No other side effect. Had episode of gross hematuria. Apixaban held. UA suggested UTI, but culture was negative. Weight down 10 pounds. She has a history of IBS and is vegetarian. Saw oncology nutrition. Using [facility] supplement. Follows a white diet. No symptoms of mucositis. No symptoms of sensory neuropathy. PAST MEDICAL HISTORY 07/05/2008: Actinic keratosis 07/05/2008: LEYVA ANGIOMA///NEVUS, NON-NEOPLASTIC 05/06/2008: Family history of osteoporosis 04/22/2024: High grade ovarian cancer (HCC) No date: Irritable bowel syndrome No date: Osteopenia 07/05/2008: Other chronic dermatitis due to solar radiation 05/06/2008: Other seborrheic keratosis No date: Ovarian cancer (HCC) 07/05/2008: SOLAR LENGINES///DYSCHROMIA OTHER PAST SURGICAL HISTORY 1993?: BREAST BIOPSY Comment: left sterotactic 03/09/2012: COLONOSCOPY FLX DX W/COLLJ SPEC WHEN PFRMD Comment: Colonoscopy 11/22/2015: COLONOSCOPY FLX DX W/COLLJ SPEC WHEN PFRMD Comment: Colonoscopy (MAC) 11/22/2015: ESOPHAGOGASTRODUODENOSCOPY TRANSORAL DIAGNOSTIC Comment: EGD ([facility] [place]) 04/2024: ILEOSTOMY ALLERGIES No Known Allergies Current Outpatient Medications Medication Sig dexAMETHasone (DECADRON) 4 mg tablet Take 5 tablets 12 and 6 hours prior to chemotherapy treatment. ondansetron orally disintegrating (ZOFRAN ODT) 8 mg disintegrating tablet Take 1 tablet by mouth every 8 hours as needed for nausea/vomiting. prochlorperazine (COMPAZINE) 10 mg tablet Take 1 tablet by mouth every 6 hours as needed. acetaminophen (TYLENOL EXTRA STRENGTH) 500 mg tablet Take 1,000 mg by mouth every 6 hours as neededfor pain. dicyclomine (BENTYL) 10 mg capsule Take 1 or 2 before meals, as needed. (Patient taking differently: Take 10 mg by mouth three times a day as needed (abdominal cramping). Take 1 or 2 before meals, asneeded.) Loperamide HCl (ANTI-DIARRHEAL) 2 mg tab Take 1 tablet by mouth as needed. nutritional supplement ([employer] STANDARD 1.4) 0.06 G - 1.4 Kcal/mL oral liquid Take 325 mL by mouth three times a day. (Patient not taking: Reported on 04/22/2024) alendronate (FOSAMAX) 70 mg tablet Take 1 tablet by mouth one time a week. Take with a full glass of water, on an empty stomach; do NOT lie down for 30minutes. Cholecalciferol, Vitamin D3, 50 mcg (2,000 unit) cap Take 1 capsule by mouth once daily. No current facility-administered medications for this visit. Social History Tobacco Use Smoking status: Never Smokeless tobacco: Never Vaping Use Vaping Use: Never used Substance Use Topics Alcohol use: Yes Comment: social Drug use: No Family History Problem Relation Age of Onset None Mother None Father Pancreatitis Brother Breast Cancer Maternal Aunt Anesthesia Problems No Family History ROS: Constitutional: No fever. No drenching night sweats. Normal appetite. No unexplained weight loss. No significant fatigue. Neuro: No recent STAHL, vertigo, dizziness or imbalance. HEENT: No recent change in voice, vision or hearing. Resp: No cough, wheeze of hemoptysis. No shortness of breath at rest. CVS: No exertional chest pain, PND or orthopnea. No extremity swelling/edema. No symptoms of claudication. No painful or tender varicose veins. GI: See above. : No dysuria or gross hematuria. Endo: No hot flashes. No polyuria or polydipsia. No heat or cold intolerance. Musculoskeletal: No bone, back, joint and muscular pain. Derm: No current rash. No history of jaundice. No diffuse pruritis. Heme: No unusual bleeding and unexplained bruising. Psych: Normal mood. PHYSICAL EXAM: Vitals: Blood pressure 121/68, pulse 73, temperature 36.9 C (98.4 F), temperature source Temporal, weight 49.9 kg (110 lb), SpO2 100%. Well-appearing and in no acute distress. EYES: Sclerae are anicteric bilaterally. LYMPHATIC: There is no palpable cervical supraclavicular, adenopathy. RESPIRATORY: Inspiratory breath sounds are of normal intensity in all moyer. CARDIOVASCULAR: Rhythm is regular. ABDOMEN: The abdomen is nondistended. Extremities: No swelling or edema. SKIN: No jaundice. 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 -Recent small bowel obstruction status post ileostomy. -Baseline CA125 320 units/mL 04/22/2024. -Malnutrition. -[employer] FOLR1 +75% membrane staining. -Caris NGS T p53 32% VAF. Variant of uncertain significance NTRK2. TMB low. HRD genomic scar score low. MSI stable. -Tolerating chemotherapy very well overall. -Biggest issue is weight loss. Plan: -Will discuss with Estefany Valerio. -See if can move up genetic counseling appointment. -Okay for cycle #2 this week. -Monitor CA125. -CT following 3 cycles. -Potential debulking surgery with ostomy takedown following 3 cycles. Portions of this documentation were copied and pasted from previous office visit notes in order to provide a cohesive continuity of the history. The note has been reviewed and edited and updated as necessary. I spent a total of 30 minutes on the date of the service which included preparing to see the patient, [id number] patient care, completing clinical documentation, obtaining and/or reviewing separately obtained history, performing a medically appropriate examination, counseling and educating the pat ient/family/caregiver, ordering medications, tests, or procedures, communicating with other HCPs (not separately reported), and communicating results to the patient/family/caregiver. Nile Hall DO documented in this encounterF[facility]08-12-[facility] Miscellaneous Notes* SN Routine - Avril Graham RN - 05/17/2024 9:21 AM EDT SITUATION: Fdc routine visit completed today. only patient present during today's visit. patient reports the following: Allergies--reviewed Medications--reviewed current medications Falls--None BACKGROUND: Reason for Home Care: new ileostomy ASSESSMENT: SN greeted at door by patient no DME and demonstrates stable gait. Patient appears in no acute distress. Patient/CG concerns verbalized today: no special concerns Vitals (see flow sheet for details): stable SN findings today: Cre performed by pt today with very little help from SN, she had some trouble with sequencing but was able to correct herself. She cut the pouch opening prior to vs and has done correctly. There is a small amount of peristomal skin irritation from the opening being cut a little too large last time and pt applied stoma powder correctly, no exposed skin with this pouch change. Stool continues to be semiliquid brown in adequate but not excesive amounts. Pt's appetite varies but she is taking small meals frequently and supplementing the the [employer]. She takes fluids well. SNreviewed [facility]OM[facility] for probable dc next week and will have Mitesh Oswald set her up with DME for her ongoing supply needs. See intervention summary for education details. Patient demonstrated a need for further skilled SN services for ostomy management & education. Current Discharge plan: self-care RECOMMENDATION: Next visit to focus on (be specific): ostomy pouch change and probable agency dc. [facility] in this encounterF[facility]08-[facility] Patient's home Note* SN Routine - Avril Graham RN - 05/17/2024 9:21 AM EDT SITUATION: Fdc routine visit completed today. only patient present during today's visit. patient reports the following: Allergies--reviewed Medications--reviewed current medications Falls--None BACKGROUND: Reason for Home Care: new ileostomy ASSESSMENT: SN greeted at door by patient no DME and demonstrates stable gait. Patient appears in no acute distress. Patient/CG concerns verbalized today: no special concerns Vitals (see flow sheet for details): stable SN findings today: Cre performed by pt today with very little help from SN, she had some trouble with sequencing but was able to correct herself. She cut the pouch opening prior to vs and has done correctly. There is a small amount of peristomal skin irritation from the opening being cut a little too large last time and pt applied stoma powder correctly, no exposed skin with this pouch change. Stool continues to be semiliquid brown in adequate but not excesive amounts. Pt's appetite varies but she is taking small meals frequently and supplementing the the [employer]. She takes fluids well. SNreviewed [facility] for probable dc next week and will have Mitesh Oswald set her up with DME for her ongoing supply needs. See intervention summary for education details. Patient demonstrated a need for further skilled SN services for ostomy management & education. Current Discharge plan: self-care RECOMMENDATION: Next visit to focus on (be specific): ostomy pouch change and probable agency dc. [facility] Work Phone: [phone] Telephone encounter Note* Telephone Encounter - Yulia Holm RN - 05/14/2024 12:01 PM EDT Care Coordination Triage Note [facility] Situation: Patient reports Bowel symptoms Background: ovarian cancer, started carboplatin/paclitaxel 04/28/24 Assessment: Diarrhea symptoms: When did you start having loose stools? This morning- very loose diarrhea that passed through herrectum. She had diverting loop ileostomy surgery at the beginning of April. Patient stated she had afew BM's pass through her rectum but typically she has stool output through her ostomy. Patient stated she received no education on what is normal or not normal and how long she should be passing stool through her rectum. Patient stated she spoke to her ileostomy nurse who stated this is normal. Patient was advised to contact her surgical team or ostomy nurse to answer her post-surgical questions. How many loose stools have you had in the last 24 hours? Passed a little bit yesterday, small stool. Today was the first time it was very loose output. Is there any solid component to the stool? Yesterday In the last 24 hours, have you taken anything for your diarrhea? (Imodium?) loperamide, dicyclomine, and Zofran If yes, what and how often? Took 2 tablets of loperamide, 1 dicyclomine, 1 Zofran this AM. Any fever, bloating, nausea, vomiting or cramping? Denies fever, chills, vomiting, cramping, bloating. Had abdominal discomfort- 2/10 dull ache- more towards the middle, under the umbilicus. Any blood in the stool? no Are you eating and drinking normally? 2 saltines this morning, cranberry juice, water, and a littlebit of Gatorade. Are you taking any new medications, especially antibiotics or supplements? no Any recent hospitalization? Yes Patent was advised to take imodium/dicyclomine as needed for IBS/diarrhea symptoms. Patient was encouraged to continue taking her Zofran for nausea. Patient was also encouraged to push fluids, aimingfor 64 ounces per day. Recommendations: Per RNCC, patient directed to: Manage at home. Instructions provided. Yuila Holm RN May 14, 2024 12:01 PM [facility]08-09-2024 Miscellaneous Notes* Telephone Encounter - Yulia Holm RN - 05/14/2024 12:01 PM EDT Care Coordination Triage Note [facility] Situation: Patient reports Bowel symptoms Background: ovarian cancer, started carboplatin/paclitaxel 04/28/24 Assessment: Diarrhea symptoms: When did you start having loose stools? This morning- very loose diarrhea that passed through herrectum. She had diverting loop ileostomy surgery at the beginning of April. Patient stated she had afew BM's pass through her rectum but typically she has stool output through her ostomy. Patient stated she received no education on what is normal or not normal and how long she should be passing stool through her rectum. Patient stated she spoke to her ileostomy nurse who stated this is normal. Patient was advised to contact her surgical team or ostomy nurse to answer her post-surgical questions. How many loose stools have you had in the last 24 hours? Passed a little bit yesterday, small stool. Today was the first time it was very loose output. Is there any solid component to the stool? Yesterday In the last 24 hours, have you taken anything for your diarrhea? (Imodium?) loperamide, dicyclomine, and Zofran If yes, what and how often? Took 2 tablets of loperamide, 1 dicyclomine, 1 Zofran this AM. Any fever, bloating, nausea, vomiting or cramping? Denies fever, chills, vomiting, cramping, bloating. Had abdominal discomfort- 2/10 dull ache- more towards the middle, under the umbilicus. Any blood in the stool? no Are you eating and drinking normally? 2 saltines this morning, cranberry juice, water, and a littlebit of Gatorade. Are you taking any new medications, especially antibiotics or supplements? no Any recent hospitalization? Yes Patent was advised to take imodium/dicyclomine as needed for IBS/diarrhea symptoms. Patient was encouraged to continue taking her Zofran for nausea. Patient was also encouraged to push fluids, aimingfor 64 ounces per day. Recommendations: Per RNCC, patient directed to: Manage at home. Instructions provided. Yulia Holm RN May 14, 2024 12:01 PM * Telephone Encounter - Sana Morales - 05/14/2024 11:48 AM EDT Patient called requesting to speak to clinical. She states she was having IBS symptoms and it seemsto be under control. However, she would like to talk to clinical before weekend. documented in this encounterF[facility]08-[facility]-2024 Telephone encounter Note * Telephone Encounter - Sana Morales - 05/14/2024 11:48 AM EDT Patient called requesting to speak to clinical. She states she was having IBS symptoms and it seemsto be under control. However, she would like to talk to clinical before weekend. [facility] Work Phone: 1(877) 742-546708-09-2024 Telephone encounter Note* Telephone Encounter - Corrina Jaime LPN - 05/14/2024 10:30 AM EDT Last read by Sal Bautista at 3:20 PM on 05/13/2024. [facility]08-09-2024 Miscellaneous Notes* Telephone Encounter - Corrina Jaime LPN - 05/14/2024 10:30 AM EDT Last read by Sal Bautista at 3:20 PM on 05/13/2024. * Telephone Encounter - Corrina Jaime LPN - 05/13/2024 2:43 PM EDT Second message left for patient to contact office and/or check MyChart messages. Corrina Jaime LPN * Telephone Encounter - Liz Dubose LPN - 05/11/2024 3:50 PM EDT Left detailed message on voicemail also informed to check her my chart for Dr. Hall response. Liz Dubose LPN * Telephone Encounter - Nile Hall DO - 05/11/2024 1:24 PM EDT Thank you. I would favor just holding blood thinner at this time. She has started chemotherapy so hopefully cancer is responding. If she has unilateral leg swelling, worsening swelling or develops pain or tenderness in the leg she should let us know and we can get an urgent ultrasound. She was on the apixaban for prophylactic reasons. No history of VTE. * Telephone Encounter - Sana Morales - 05/11/2024 10:06 AM EDT Patient took last tablet yesterday. * Telephone Encounter - Liz Dubose LPN - 05/11/2024 9:48 AM EDT Left message on pts. Voicemail wondering how much Eliquis she has on hand. Will await return call. Liz Dubose LPN * Telephone Encounter - Nile Hall DO - 05/10/2024 5:12 PM EDT How much does she have left? * Telephone Encounter - Sana Morales - 05/10/2024 4:05 PM EDT Patient called asking if she is to continue eliquis and if so, can she have an alternative due to cost. Pt. Was placed on Eliquis 2.5 mg tabs , BID when hospitalized. 04/13/2024 [facility] Telephone encounter Note * Telephone Encounter - Corrina Jaime LPN - 05/13/2024 2:43 PM EDT Second message left for patient to contact office and/or check [employer] messages. Corrina Jaime LPN [facility]08-08-2024 Miscellaneous Notes* SN Routine - Avril Graham RN - 05/13/2024 9:36 AM EDT SITUATION: Fdc routine visit completed today. only patient present during today's visit. patient reports the following: Allergies--reviewed Medications--reviewed current medications Falls--None BACKGROUND: Reason for Home Care: new ileostomy ASSESSMENT: SN greeted at door by patient no DME and demonstrates stable gait. Patient appears in no acute distress. Patient/CG concerns verbalized today: no special concerns Vitals (see flow sheet for details): stable SN findings today: Pt ambulating in the home. Care completed in the bathroom. SN tried to have pt do procedure by herself, she did need some direction and she did cut the flange a little too big so SN filled in with another piece of barrier ring after pt placed the flange. She connected the pouch on her own. Stoma continues to be beefy red and protrudes nicely. No peristomal skin irritation notedtoday, We resumed using the flat flange today and this works much better to contour to her abdomen.Stool continues to be mostly liquid brown, pt reports that she also is having some stool output from rectum at times. See intervention summary for education details. Patient demonstrated a need for further skilled SN services for ostomy management & education. Current Discharge plan: self-care and family support RECOMMENDATION: Next visit to focus on (be specific): ostomy pouch change. [facility] Patient's home Note* SN Routine - Avril Graham RN - 05/13/2024 9:36 AM EDT SITUATION: Fdc routine visit completed today. only patient present during today's visit. patient reports the following: Allergies--reviewed Medications--reviewed current medications Falls--None BACKGROUND: Reason for Home Care: new ileostomy ASSESSMENT: SN greeted at door by patient no DME and demonstrates stable gait. Patient appears in no acute distress. Patient/CG concerns verbalized today: no special concerns Vitals (see flow sheet for details): stable SN findings today: Pt ambulating in the home. Care completed in the bathroom. SN tried to have pt do procedure by herself, she did need some direction and she did cut the flange a little too big so SN filled in with another piece of barrier ring after pt placed the flange. She connected the pouch on her own. Stoma continues to be beefy red and protrudes nicely. No peristomal skin irritation notedtoday, We resumed using the flat flange today and this works much better to contour to her abdomen.Stool continues to be mostly liquid brown, pt reports that she also is having some stool output from rectum at times. See intervention summary for education details. Patient demonstrated a need for further skilled SN services for ostomy management & education. Current Discharge plan: self-care and family support RECOMMENDATION: Next visit to focus on (be specific): ostomy pouch change. [facility] Work Phone: [phone] Telephone encounter Note* Telephone Encounter - Liz Dubose LPN - 05/11/2024 3:50 PM EDT Left detailed message on voicemail also informed to check her my chart for Dr. Hall response. Liz Dubose LPN [facility]08-06-[facility] Telephone encounter Note* Telephone Encounter - Nile Hall DO - 05/11/2024 1:24 PM EDT Thank you. I would favor just holding blood thinner at this time. She has started chemotherapy so hopefully cancer is responding. If she has unilateral leg swelling, worsening swelling or develops pain or tenderness in the leg she should let us know and we can get an urgent ultrasound. She was on the apixaban for prophylactic reasons. No history of VTE. [facility]08-[facility] Telephone encounter Note* Telephone Encounter - Sana Morales - 05/11/2024 10:06 AM EDT Patient took last tablet yesterday. [facility] Work Phone: 1(216) 223-169208-06-2024 Telephone encounter Note* Telephone Encounter - Liz Dubose LPN - 05/11/2024 9:48 AM EDT Left message on pts. Voicemail wondering how much Eliquis she has on hand. Will await return call. Liz Dubose LPN [facility]08-05-2024 Telephone encounter Note* Telephone Encounter - Nile Hall DO - 05/10/2024 5:12 PM EDT How much does she have left? [facility] Telephone encounter Note* Telephone Encounter - Sana Morales - 05/10/2024 4:05 PM EDT Patient called asking if she is to continue eliquis and if so, can she have an alternative due to cost. Pt. Was placed on Eliquis 2.5 mg tabs , BID when hospitalized. 04/13/2024 [facility] Miscellaneous Notes* HH SN Routine - Avril Graham RN - 05/10/2024 9:46 AM EDT SITUATION: Fdc routine visit completed today. only patient present during today's visit. patient reports the following: Allergies--reviewed Medications--reviewed current medications Falls--None BACKGROUND: Reason for Home Care: new ileostomy ASSESSMENT: SN greeted at door by patient no DME and demonstrates stable gait. Patient appears in no acute distress. Patient/CG concerns verbalized today: no special concerns Vitals (see flow sheet for details): stable SN findings today: Pt ambulated to bathrooom for pouch change. SN prepared new pouch and pt did allother aspects of pouch change. There is still a little irritation at 3 oclock, it is healing and ptreports that the itching has resolved. Stool is mostly liquid brown. Pt reports that she struggled with getting enough calories over the weekend but has found that adding cocoa to the [employer] supplementhas made it easier for her to drink. She continues to take fluids well. See intervention summary for education details. Patient demonstrated a need for further skilled SN services for ostomy management & education. Current Discharge plan: self-care and family support RECOMMENDATION: Next visit to focus on (be specific): pouch change, has the new flat flange arrived? documented in this encounterF[facility]08-[facility] Patient's home Note* SN Routine - Avril Graham RN - 05/10/2024 9:46 AM EDT SITUATION: Fdc routine visit completed today. only patient present during today's visit. patient reports the following: Allergies--reviewed Medications--reviewed current medications Falls--None BACKGROUND: Reason for Home Care: new ileostomy ASSESSMENT: SN greeted at door by patient no DME and demonstrates stable gait. Patient appears in no acute distress. Patient/CG concerns verbalized today: no special concerns Vitals (see flow sheet for details): stable SN findings today: Pt ambulated to bathrooom for pouch change. SN prepared new pouch and pt did allother aspects of pouch change. There is still a little irritation at 3 oclock, it is healing and ptreports that the itching has resolved. Stool is mostly liquid brown. Pt reports that she struggled with getting enough calories over the weekend but has found that adding cocoa to the [employer] supplementhas made it easier for her to drink. She continues to take fluids well. See intervention summary for education details. Patient demonstrated a need for further skilled SN services for ostomy management & education. Current Discharge plan: self-care and family support RECOMMENDATION: Next visit to focus on (be specific): pouch change, has the new flat flange arrived? [facility] Work Phone: 1(987) 922-280908-01-2024 Miscellaneous Notes* SN Routine - Avril Graham RN - 05/06/2024 9:21 AM EDT SITUATION: Fdc routine visit completed today. only patient present during today's visit. patient reports the following: Allergies--reviewed Medications--reviewed current medications Falls--None BACKGROUND: Reason for Home Care: new ileostomy ASSESSMENT: SN greeted at door by patient no DME and demonstrates stable gait. Patient appears in no acute distress. Patient/CG concerns verbalized today: no special concerns Vitals (see flow sheet for details): stable SN findings today: Pt ambulating in the home, she reports that she has had some mild itching to peristomal area. Pt removed pouch with some difficulty today and adhesive residue. SN instructed pt on how to remove using the adhesive remover. There is still a small area of irritation noted at 3 oclock. SN measured stoma today and pouch opening cut to 35 mm. Stoma powder used and pt instructed. Today 's pouch opening totally covers the area of irritation and pt reports that the itching improved with powder. Stool is liquid brown today. She reports that she got along well with the new lock and roll pouch. SN feels that the flanges recommended from the hospital don't contour well to pt's abdomen and would like to go back to the flat flange, supply order placed today. See intervention summary for education details. Patient demonstrated a need for further skilled SN services for ostomy management & education. Current Discharge plan: self-care and family support RECOMMENDATION: Next visit to focus on (be specific): ostomy pouch change, assess peristomal skin. documented in this [facility]08-[facility] Patient's home Note* HH SN Routine - Avril Graham RN - 05/06/2024 9:21 AM EDT SITUATION: Fdc routine visit completed today. only patient present during today's visit. patient reports the following: Allergies--reviewed Medications--reviewed current medications Falls--None BACKGROUND: Reason for Home Care: new ileostomy ASSESSMENT: SN greeted at door by patient no DME and demonstrates stable gait. Patient appears in no acute distress. Patient/CG concerns verbalized today: no special concerns Vitals (see flow sheet for details): stable SN findings today: Pt ambulating in the home, she reports that she has had some mild itching to peristomal area. Pt removed pouch with some difficulty today and adhesive residue. SN instructed pt on how to remove using the adhesive remover. There is still a small area of irritation noted at 3 oclock. SN measured stoma today and pouch opening cut to 35 mm. Stoma powder used and pt instructed. Today 's pouch opening totally covers the area of irritation and pt reports that the itching improved with powder. Stool is liquid brown today. She reports that she got along well with the new lock and roll pouch. SN feels that the flanges recommended from the hospital don't contour well to pt's abdomen and would like to go back to the flat flange, supply order placed today. See intervention summary for education details. Patient demonstrated a need for further skilled SN services for ostomy management & education. Current Discharge plan: self-care and family support RECOMMENDATION: Next visit to focus on (be specific): ostomy pouch change, assess peristomal skin. [facility] Work Phone: 1(372) 217-283507-29-2024 Telephone encounter Note* Telephone Encounter - Yulia Holm RN - 05/03/2024 1:27 PM EDT Patient called back, message given to patient. Yulia Holm RN [facility]07-29-2024 Miscellaneous Notes* Telephone Encounter - Yulia Holm RN - 05/03/2024 1:27 PM EDT Patient called back, message given to patient. Yulia Holm RN * Telephone Encounter - Yulia Holm RN - 05/03/2024 1:23 PM EDT Called patient, no answer, left a VM requesting a call back from patient. Patient can stop macrobid. Repeat UA in a couple of weeks. Added to appointment notes for next labsvisit in May. Yulia Holm RN * Telephone Encounter - Yulia Holm RN - 05/03/2024 12:29 PM EDT CYCLE 1/DAY 1 POST TREATMENT CALL Today's date: May 03, 2024 Treatment Regimen: Carboplatin/Taxol C1D1 Date: 04/28/24 Called patient to follow-up on symptom management. Spoke with patient SYMPTOM ASSESSMENT Neuro: None CV/Resp: Bleeding hematuria noted Friday. It's better denies seeing blood in her urine now. Patient thought that she was going a little more frequently than usual, better now. Denies dysuria. GI/: Appetite: no changes in appetite, appetite poor-- met with Estefany Valerio. Denies N/V/D Drinking [facility] protein shakes. Integument: None Activity: Patient reported no changes in energy level, energy level fair adequate Pain: Yes, pain rated 2 on a scale of 0-10 (0=none, 10=worst). Location: abdomen, lower all the way across at times. Character: aching. Duration: since surgery aching in there Frequency: the dull aching is constant Fever: No Chills: No Any new referrals needed? No Reinforced CURRENT treatment education based on current and anticipated symptoms. Discussed port/line care and patient verbalizes understanding: Not Applicable Patient instructed to contact office or after hours Hematology/Oncology fellow for: temperature ? 100.4; questions or concerns. Patient verbalized understanding of when to seek medical attention and after hours number protocol. Yulia Holm RN * Telephone Encounter - Nile Hall DO - 04/30/2024 9:24 PM EDT Patient called after having episode mild gross hematuria. Other than occasional twinge of pain inpelvis, no urinary symptoms, fever or chills. Advised her to hold apixaban tonight and tomorrow morning. UA and culture tomorrow am at [facility]. Empiric therapy with Macrobid. Rx sent. No side effects from chemotherapy per se as of now. Nile Hall DO * Telephone Encounter - Yulia Holm RN - 04/29/2024 9:50 AM EDT CYCLE 1/DAY 1 POST TREATMENT CALL Today's date: April 29, 2024 Treatment Regimen: Carboplatin/Taxol C1D1 Date: 04/28/2024 Called patient to follow-up on symptom management, no answer, left a VM requesting a call back. Yulia Holm RN documented in this encounterF[facility]07-29-2024 Telephone encounter Note * Telephone Encounter - Yulia Holm RN - 05/03/2024 1:23 PM EDT Called patient, no answer, left a VM requesting a call back from patient. Patient can stop macrobid. Repeat UA in a couple of weeks. Added to appointment notes for next labsvisit in May. Yulia Holm RN [facility]07-29-[facility] Telephone encounter Note* Telephone Encounter - Yulia Holm RN - 05/03/2024 12:29 PM EDT CYCLE 1/DAY 1 POST TREATMENT CALL Today's date: May 03, 2024 Treatment Regimen: Carboplatin/Taxol C1D1 Date: 04/28/24 Called patient to follow-up on symptom management. Spoke with patient SYMPTOM ASSESSMENT Neuro: None CV/Resp: Bleeding hematuria noted Friday. It's better denies seeing blood in her urine now. Patient thought that she was going a little more frequently than usual, better now. Denies dysuria. GI/: Appetite: no changes in appetite, appetite poor-- met with Estefany Valerio. Denies N/V/D Drinking [facility] protein shakes. Integument: None Activity: Patient reported no changes in energy level, energy level fair adequate Pain: Yes, pain rated 2 on a scale of 0-10 (0=none, 10=worst). Location: abdomen, lower all the way across at times. Character: aching. Duration: since surgery aching in there Frequency: the dull aching is constant Fever: No Chills: No Any new referrals needed? No Reinforced CURRENT treatment education based on current and anticipated symptoms. Discussed port/line care and patient verbalizes understanding: Not Applicable Patient instructed to contact office or after hours Hematology/Oncology fellow for: temperature ? 100.4; questions or concerns. Patient verbalized understanding of when to seek medical attention and after hours number protocol. Yulia Holm RN [facility]07-29-[facility] Miscellaneous Notes* [facility] Routine - Avril Graham RN - 05/03/2024 9:16 AM EDT SITUATION: Fdc routine visit completed today. only patient present during today's visit. patient reports the following: Allergies--reviewed Medications--reviewed current medications Falls--None BACKGROUND: Reason for Home Care: new ileostomy ASSESSMENT: SN greeted at door by patient no DME and demonstrates stable gait. Patient appears in no acute distress. Patient/CG concerns verbalized today: no special concerns Vitals (see flow sheet for details): stable SN findings today: Pt ambulated to bathroom for pouch change. SN notes a small amount of irritationnear 3 oclock, it does appear that stoma has shrunk slightly and the skin was most likely exposed. When new pouch was placed there is a small amount of skin exposed so SN used a portion of the moldable ring to fill in this gap and will remeasure stoma next vs. Pt denies any burning to the area. Stoma continues to protrude nicely, stool output is semiliquid light brown in color. Pt introduced to lock and roll pouch today and instructed on use. Pt did most all care herself today with direction from SN, she is progressing well towards independence. See intervention summary for education details. Patient demonstrated a need for further skilled SN services for ostomy management & education. Current Discharge plan: self-care RECOMMENDATION: Next visit to focus on (be specific): ostomy pouch change, assess stoma measurement, assess peristomal skin. documented in this encounterF[facility]07-29-[facility] Patient's home Note* SN Routine - Avril Graham RN - 05/03/2024 9:16 AM EDT SITUATION: Fdc routine visit completed today. only patient present during today's visit. patient reports the following: Allergies--reviewed Medications--reviewed current medications Falls--None BACKGROUND: Reason for Home Care: new ileostomy ASSESSMENT: SN greeted at door by patient no DME and demonstrates stable gait. Patient appears in no acute distress. Patient/CG concerns verbalized today: no special concerns Vitals (see flow sheet for details): stable SN findings today: Pt ambulated to bathroom for pouch change. SN notes a small amount of irritationnear 3 oclock, it does appear that stoma has shrunk slightly and the skin was most likely exposed. When new pouch was placed there is a small amount of skin exposed so SN used a portion of the moldable ring to fill in this gap and will remeasure stoma next vs. Pt denies any burning to the area. Stoma continues to protrude nicely, stool output is semiliquid light brown in color. Pt introduced to lock and roll pouch today and instructed on use. Pt did most all care herself today with direction from SN, she is progressing well towards independence. See intervention summary for education details. Patient demonstrated a need for further skilled SN services for ostomy management & education. Current Discharge plan: self-care RECOMMENDATION: Next visit to focus on (be specific): ostomy pouch change, assess stoma measurement, assess peristomal skin. [facility] Work Phone: 1([phone]) 884-329907-26-2024 Telephone encounter Note* Telephone Encounter - Nile Hall DO - 04/30/2024 9:24 PM EDT Patient called after having episode mild gross hematuria. Other than occasional twinge of pain inpelvis, no urinary symptoms, fever or chills. Advised her to hold apixaban tonight and tomorrow morning. UA and culture tomorrow am at [facility]. Empiric therapy with Macrobid. Rx sent. No side effects from chemotherapy per se as of now. Nile Hall DO [facility]07-[facility] Telephone encounter Note* Telephone Encounter - Yulia Holm RN - 04/29/2024 9:50 AM EDT CYCLE 1/DAY 1 POST TREATMENT CALL Today's date: April 29, 2024 Treatment Regimen: Carboplatin/Taxol C1D1 Date: 04/28/2024 Called patient to follow-up on symptom management, no answer, left a VM requesting a call back. Yulia Holm RN [facility]07-25-20[facility] Miscellaneous Notes* SN Routine - Avril Graham RN - 04/29/2024 9:26 AM EDT SITUATION: Fdc routine visit completed today. only patient present during today's visit. patient reports the following: Allergies--reviewed Medications--reviewed current medications Falls--None BACKGROUND: Reason for Home Care: new ileostomy ASSESSMENT: SN greeted at door by patient no DME and demonstrates stable gait. Patient appears in no acute distress. Patient/CG concerns verbalized today: no new concerns Vitals (see flow sheet for details): stable SN findings today: Pt ambulating in the home, she reports that she had her first chemo session yesterday and appears to have tolerated well so far. Ambulated to bathroom for ostomy care. See intervention summary for education details.Pt did more hands on today, she removed the pouch, cleansed skin and also with SN help, placed new flange and connected drainage bag. SN introduced the deodorant drops today and pt feels that this is going to help her. Stoma continues to be red and healthy, protrudes nicely and peristomal skin is in very good condition. Stool output is liquid brown and not excessive in amount. Patient demonstrated a need for further skilled SN services for ostomy management & education. Current Discharge plan: self-care RECOMMENDATION: Next visit to focus on (be specific): have pt continue hands on care. documented in this encounterF[facility]07-25-[facility]24 Patient's home Note* SN Routine - Avril Graham RN - 04/29/2024 9:26 AM EDT SITUATION: Fdc routine visit completed today. only patient present during today's visit. patient reports the following: Allergies--reviewed Medications--reviewed current medications Falls--None BACKGROUND: Reason for Home Care: new ileostomy ASSESSMENT: SN greeted at door by patient no DME and demonstrates stable gait. Patient appears in no acute distress. Patient/CG concerns verbalized today: no new concerns Vitals (see flow sheet for details): stable SN findings today: Pt ambulating in the home, she reports that she had her first chemo session yesterday and appears to have tolerated well so far. Ambulated to bathroom for ostomy care. See intervention summary for education details.Pt did more hands on today, she removed the pouch, cleansed skin and also with SN help, placed new flange and connected drainage bag. SN introduced the deodorant drops today and pt feels that this is going to help her. Stoma continues to be red and healthy, protrudes nicely and peristomal skin is in very good condition. Stool output is liquid brown and not excessive in amount. Patient demonstrated a need for further skilled SN services for ostomy management & education. Current Discharge plan: self-care RECOMMENDATION: Next visit to focus on (be specific): have pt continue hands on care. 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 - aim for 5-6 small/frequent meals - incorporate lean sources of protein/plant based proteins at meals - Stay well hydrated - sip on fluids throughout the day - start supplementation: [employer] 1.0 or 1.4 once per day -Strategies to manage treatment side effects: thickening foods for ostomy Nutrition Monitoring & Evaluation: PO intake Supplement tolerance Wt status Biochemical Markers Skin integrity Plan of care Patient Condition: Pt presents for nutrition counseling for neoadjuvant chemotherapy for ovarian cancer\. Pt is currently being treated with pretreatment. Pt denies food allergies/intolerances. Nutrition Assessment: Patient is at high risk from a nutritional standpoint. Patient's symptoms are: High ostomy output at times Nausea Weight loss Diet History (24hr recall): Breakfast - mac and cheese Snack - jello Lunch - saltine and pb Snack - muffin Dinner - potato Snack - Beverages - gatorade Alcohol- Vitamins/Supplements - Topics addressed: nutrition needs - not to fast to reduce output, thickening foods, protein sources Educational materials provided: diet with ileostomy Readiness to Learn: Cognitive ability: Alert and oriented Motivation to learn: Interested Family support: High - Very involved in pt care Instruction provided to: Patient and Spouse Patient learns best by: Multiple Methods Factors affecting learning: None Physical limitations affecting learning: None Anthropometrics: HEIGHT/WEIGHT/BSA Height BSA (m2) Weight 11/14/2023 1.66 m2 132 lb 02/24/2024 1.61 m2 125 lb 03/15/2024 165.3 cm (5' 5.08) 1.61 m2 124 lb 03/17/2024 165.1 cm (5' 5) 1.58 m2 120 lb 9.5 oz 1.58 m2 120 lb 9.5 oz 03/20/2024 1.56 m2 117 lb 4.6 oz 03/22/2024 1.59 m2 121 lb 4.1 oz 03/23/2024 1.59 m2 121 lb 14.6 oz 03/29/2024 1.6 m2 123 lb 04/02/2024 165.1 cm (5' 5) 1.6 m2 123 lb 10.9 oz 04/09/2024 165.1 cm (5' 5) 1.6 m2 04/15/2024 165.1 cm (5' 5) 1.61 m2 124 lb 12.8 oz 04/19/2024 1.6 m2 123 lb 04/22/2024 166.4 cm (5' 5.5) 1.6 m2 122 lb Estimated body mass index is 19.99 kg/m as calculated from the following: Height as of 04/22/24: 166.4 cm (5' 5.5). Weight as of 04/22/24: 55.3 kg (122 lb). Resting Metabolic Rate: 1077 Weight Change: 7.5% wt loss in 5 mo Dosing Weight: 55.3 kg Estimated kilocalorie needs: 7707-4939 kilocalories determined by 30-35 kcal/kg Estimated protein needs: 65-85 grams determined by 1.2-1.5 g/kg Dosing weight Estimated fluid needs: 1950 milliliters based on 35 mL/kg Nutrition Focused Physical Exam: Subcutaneous Fat Loss Orbital Severe Triceps Severe Mid-axillary at the iliac crest Severe Muscle Loss Locations: Temporalis Severe Pectoralis Unable to determine at this time Deltoids Severe Interosseous Moderate Latissimus dorsi, trapezius Severe Quadriceps Mild Gastrocnemius Mild Potential micronutrient deficiency revealed in: No deficiency identified Edema: Yes Lower extremities Moderate 2+ Ascites: No Assessment of Functional Status: Unable to assess Potential Signs of Inflammation: chronic condition Latest Reference Range & Units Most Recent Prealbumin 17 - 36 mg/dL 14 (L) 04/09/24 08:11 Latest Reference Range & Units 04/22/24 10:41 Hemoglobin 11.5 - 15.5 g/dL 10.9 (L) Hematocrit 36.0 - 46.0 % 34.4 (L) Platelet Count 150 - 400 k/uL 500 (H) Latest Reference Range & Units 04/22/24 10:41 Ferritin 14.7 - 205.1 ng/mL 272.0 (H) Allergies: Patient has no known allergies. Medications: Current Outpatient Medications Medication Sig Dispense Refill dexAMETHasone (DECADRON) 4 mg tablet Take 5 tablets 12 and 6 hours prior to chemotherapy treatment.10 tablet 5 ondansetron orally disintegrating (ZOFRAN ODT) 8 mg disintegrating tablet Take 1 tablet by mouth every 8 hours as needed for nausea/vomiting. 30 tablet 2 prochlorperazine (COMPAZINE) 10 mg tablet Take 1 tablet by mouth every 6 hours as needed. 30 tablet2 acetaminophen (TYLENOL EXTRA STRENGTH) 500 mg tablet Take 1,000 mg by mouth every 6 hours as neededfor pain. apixaban (ELIQUIS) 2.5 mg tab(s) Take 1 tablet by mouth two times a day. 48 tablet 0 nutritional supplement (JAYILN FARMS STANDARD 1.4) 0.06 G - 1.4 Kcal/mL oral liquid Take 325 mL by mouth three times a day. (Patient not taking: Reported on 04/22/2024) 3250 mL 2 dicyclomine (BENTYL) 10 mg capsule Take 1 or 2 before meals, as needed. (Patient taking differently: Take 10 mg by mouth three times a day as needed (abdominal cramping). Take 1 or 2 before meals, asneeded.) 120 capsule 5 alendronate (FOSAMAX) 70 mg tablet Take 1 tablet by mouth one time a week. Take with a full glass of water, on an empty stomach; do NOT lie down for 30minutes. 12 tablet 3 Cholecalciferol, Vitamin D3, 50 mcg (2,000 unit) cap Take 1 capsule by mouth once daily. Loperamide HCl (ANTI-DIARRHEAL) 2 mg tab Take 1 tablet by mouth as needed. No current facility-administered medications for this visit. Need for Follow up: Will follow up in one month Referred/Supervised by: Dr Rafael LEMOS Billing Type: Initial Assess/15 min 3 units Billed Time: 45 minutes Signed by: Estefany Valerio RD, LD documented in this encounterFost[facility] Telephone encounter Note* Telephone Encounter - Brooklyn Earl - 04/27/2024 12:00 PM EDT 1st time treatment report. Spoke with patient over the phone today. Patient is active with [employer] Medicare, LOC 96%, $0 deductible has $0 remaining, $1500 OOP has $1321.55 remaining. Estimate shows patient financial responsibility is $68.56 for each treatment in 2023 until oop max is reached. Patient stated understanding. Reference #[id number] Explained [employer] co-pay assistance to patient. Pt requested more info about foundation to be sent via email. Emailed pt contact info, FN hot card. [facility]07-23-[facility] Miscellaneous Notes* Telephone Encounter - Brooklyn Earl - 04/27/2024 12:00 PM EDT 1st time treatment report. Spoke with patient over the phone today. Patient is active with [employer] Medicare, LOC 96%, $0 deductible has $0 remaining, $1500 OOP has $1321.55 remaining. Estimate shows patient financial responsibility is $68.56 for each treatment in 2023 until oop max is reached. Patient stated understanding. Reference #[id number] Explained [employer] co-pay assistance to patient. Pt requested more info about foundation to be sent via email. Emailed pt contact info, FN hot card. documented in this encounterFostoria City Hospital07-22-2024 Miscellaneous Notes* ALEXI Wisdom - Avril Graham RN - 04/26/2024 12:54 PM EDT SITUATION: Fdc routine visit completed today. only patient present during today's visit. patient reports the following: Allergies--reviewed Medications--reviewed current medications Falls--None BACKGROUND: Reason for Home Care: new ileostomy ASSESSMENT: SN greeted at door by patient no DME and demonstrates stable gait. Patient appears in no acute distress. Patient/CG concerns verbalized today: no special concerns Vitals (see flow sheet for details): stable SN findings today: Pt ambulated to bathroom for pouch change. Pt willing to participate and she removed the pouch using adhesive and cleaned the peristomal area herself today. Stoma still measures 38cm, SN placed new pouch system using a barrier ring today and pt instructed on use. Stool is becoming thicker. Pt emptting and states that stool output has not been excessive. Her appetite is improving. Pt met with chemo nurse this am via phone and will start chemo treatment on Fri this week. See intervention summary for education details. Patient demonstrated a need for further skilled SN services for chronic disease management & education and ostomy management & education. Current Discharge plan: self-care and family support RECOMMENDATION: Next visit to focus on (be specific): ostomy pouch change, pt to cut out new pouch opening and remove old pouch, may attempt to have her place new pouch as well. documented in this encounterFostoria City Hospital07-22-2024 Patient's home Note* SN Routine - Avril Graham RN - 04/26/2024 12:54 PM EDT SITUATION: Fdc routine visit completed today. only patient present during today's visit. patient reports the following: Allergies--reviewed Medications--reviewed current medications Falls--None BACKGROUND: Reason for Home Care: new ileostomy ASSESSMENT: SN greeted at door by patient no DME and demonstrates stable gait. Patient appears in no acute distress. Patient/CG concerns verbalized today: no special concerns Vitals (see flow sheet for details): stable SN findings today: Pt ambulated to bathroom for pouch change. Pt willing to participate and she removed the pouch using adhesive and cleaned the peristomal area herself today. Stoma still measures 38cm, SN placed new pouch system using a barrier ring today and pt instructed on use. Stool is becoming thicker. Pt emptting and states that stool output has not been excessive. Her appetite is improving. Pt met with chemo nurse this am via phone and will start chemo treatment on Fri this week. See intervention summary for education details. Patient demonstrated a need for further skilled SN services for chronic disease management & education and ostomy management & education. Current Discharge plan: self-care and family support RECOMMENDATION: Next visit to focus on (be specific): ostomy pouch change, pt to cut out new pouch opening and remove old pouch, may attempt to have her place new pouch as well. [facility] Work Phone: [phone] Nurse Note* Yulia Holm RN - 04/26/2024 11:54 AM EDT This visit was completed via telephone. Yulia Holm RN [facility]07-22-2024 Nurse Note* Yulia Holm RN - 04/26/2024 11:54 AM EDT This visit was completed via telephone. Yulia Holm RN * Yulia Holm RN - 04/26/2024 11:51 AM EDT ONCOLOGY PATIENT EDUCATION NOTE TOPIC: Chemotherapy, Medications: Carboplatin/Taxol patient called today for education for treatment of Ovarian Cancer Anticipated/Scheduled start date: 04/28/24 READINESS TO LEARN: COGNITIVE ABILITY: Alert and oriented MOTIVATION TO LEARN: Interested FAMILY SUPPORT: High - Very involved in pt care INSTRUCTION PROVIDED TO: Patient INSTRUCTION PROVIDED BY: Nurse Coordinator PATIENT LEARNS BEST BY: Multiple Methods FACTORS AFFECTING LEARNING: None PHYSICAL LIMITATIONS AFFECTING LEARNING: None LEARNING RESPONSE METHOD OF INSTRUCTION: Individual instruction Written instruction/Handouts Verbal instruction PATIENT/FAMILY RESPONSE: Verbalizes understanding of: CHEMOTHERAPY-Regimen, toxicity and side effects FOLLOW UP PLAN: Patient instructed to call with any further issues Recommend - Recommend continued instruction and follow up as directed Follow up phone call. Contact information given. SUPPLEMENTAL MATERIAL: Written material was provided at this visit with the following information: - Chemotherapy education was provided by a pharmacist NO - Side effect management information was provided/discussed including but not limited to: anemia, appetite changes, arthralgia, bowel habit changes, diet, electrolyte disturbances, fatigue, hair loss, hypersensitivity reaction, infection, mouth hygiene, mucositis, myalgia, nausea/vomitting, rash, skin changes, taste changes, thrombocytopenia YES - Provided important phone numbers and contacts during and after hours. YES - Provided information on symptoms that require immediate assistance. YES - Provided Chemotherapy when to call handouts YES - Preventing infection. YES - Treatment schedule and confirmation of appointment times. YES - Available support groups. YES - The importance of contraception during the course of chemotherapy YES - Neutropenic fever protocol discussed with patient, which included the importance of reporting anyfever of 100.4F (38.0C) or greater to the healthcare team as noted on the provided wallet card and/or magnet. YES Time Spent: 60 minutes REFERRAL (RECOMMENDATION): Nutrition Yulia Holm RN * Yulia Holm RN - 04/26/2024 11:49 AM EDT Boot Trimmer Pre Chemo Patient identified by name and date of . YES Confirmed date and time for chemotherapy ? YES Other appointments (labs, imaging) discussed? YES Discussed where to park (shipper), charge for parking YES Discussed where to report (building/floor) YES Any pre-medications ordered? YES Described the infusion room and what to expect. (What to wear, what to bring [iPad, books] amount of time treatment can take, meals and CC options for food) YES Note: Discussed whether the patient can eat prior to labs and treatment. YES Who is driving you to and from treatment? Spouse Discussed why it is important to bring someone with you. Yes, for the first treatment Resources discussed (music therapy, Art therapy, pet therapy, etc.) YES Education on chemotherapy (drug, side effects) discussed and that the patient will be receiving a C1D1 call within 7 days of treatment. YES Other topics discussed, interventions needed: Yulia Holm RN documented in this encounterFostoria [facility]07-22-2024 Nurse Note* Yulia Holm RN - 04/26/2024 11:51 AM EDT ONCOLOGY PATIENT EDUCATION NOTE TOPIC: Chemotherapy, Medications: Carboplatin/Taxol patient called today for education for treatment of Ovarian Cancer Anticipated/Scheduled start date: 04/28/24 READINESS TO LEARN: COGNITIVE ABILITY: Alert and oriented MOTIVATION TO LEARN: Interested FAMILY SUPPORT: High - Very involved in pt care INSTRUCTION PROVIDED TO: Patient INSTRUCTION PROVIDED BY: Nurse Coordinator PATIENT LEARNS BEST BY: Multiple Methods FACTORS AFFECTING LEARNING: None PHYSICAL LIMITATIONS AFFECTING LEARNING: None LEARNING RESPONSE METHOD OF INSTRUCTION: Individual instruction Written instruction/Handouts Verbal instruction PATIENT/FAMILY RESPONSE: Verbalizes understanding of: CHEMOTHERAPY-Regimen, toxicity and side effects FOLLOW UP PLAN: Patient instructed to call with any further issues Recommend - Recommend continued instruction and follow up as directed Follow up phone call. Contact information given. SUPPLEMENTAL MATERIAL: Written material was provided at this visit with the following information: - Chemotherapy education was provided by a pharmacist NO - Side effect management information was provided/discussed including but not limited to: anemia, appetite changes, arthralgia, bowel habit changes, diet, electrolyte disturbances, fatigue, hair loss, hypersensitivity reaction, infection, mouth hygiene, mucositis, myalgia, nausea/vomitting, rash, skin changes, taste changes, thrombocytopenia YES - Provided important phone numbers and contacts during and after hours. YES - Provided information on symptoms that require immediate assistance. YES - Provided Chemotherapy when to call handouts YES - Preventing infection. YES - Treatment schedule and confirmation of appointment times. YES - Available support groups. YES - The importance of contraception during the course of chemotherapy YES - Neutropenic fever protocol discussed with patient, which included the importance of reporting anyfever of 100.4F (38.0C) or greater to the healthcare team as noted on the provided wallet card and/or magnet. YES Time Spent: 60 minutes REFERRAL (RECOMMENDATION): Nutrition Yulia Holm RN [facility]07-22-[facility] Nurse Note* Yulia Holm RN - 04/26/2024 11:49 AM EDT Boot Trimmer Pre Chemo Patient identified by name and date of . YES Confirmed date and time for chemotherapy ? YES Other appointments (labs, imaging) discussed? YES Discussed where to park (shipper), charge for parking YES Discussed where to report (building/floor) YES Any pre-medications ordered? YES Described the infusion room and what to expect. (What to wear, what to bring [iPad, books] amount of time treatment can take, meals and CC options for food) YES Note: Discussed whether the patient can eat prior to labs and treatment. YES Who is driving you to and from treatment? Spouse Discussed why it is important to bring someone with you. Yes, for the first treatment Resources discussed (music therapy, Art therapy, pet therapy, etc.) YES Education on chemotherapy (drug, side effects) discussed and that the patient will be receiving a C1D1 call within 7 days of treatment. YES Other topics discussed, interventions needed: Yulia Holm RN [facility]07-18-2024 History of Present illness Narrative* Starla Fulton RN - 04/22/2024 4:06 PM EDTSummary: ED Utilization review per payer request ACM ARIC RN Patient identified by name and date of . Reason for review or outreach: Chart Review [facility] Utilization REQUESTED ACTION/FYI: NA Utilization in past 6 months: # Occurrences Date Last Occurrence Hospital Admission 2 04/09/2024 to 04/13/2024 Hospital Observation 0 NA ED 0 NA SNF / Acute Rehab / LTAC 0 NA ED DIAGNOSES/REASON(S) FOR ED USE: No ED admits in the past 6 months OTHER FINDINGS/SUMMARY: 03/17/2024 to 03/24/2024 - Hospital admit in [facility] [place] for inadequate nutrition 04/09/2024 to 04/13/2024 Hospital admit in [facility] [place] for pelvic mass OPERATIONS DURING HOSPITALIZATION: XL, aborted debulk, diverting loop ileostomy Patient was seen in hematology today Patient Attributed To: QAE Payer: [employer] Action Taken: Referrals/Routed: NA Contact made with patient: No, Chart review only. Signature: Strala Fulton RN documented in this encounterFostoria [facility]07-18-2024 Miscellaneous Notes* SN Wisdom - Mariajose Carpenter RN - 04/22/2024 11:15 AM EDT SITUATION: Fdc routine visit completed today. only patient also present during today's visit. patient reports the following: Allergies--reviewed Medications--reviewed current medications Falls--None DME-NONE BACKGROUND: Reason for Home Care: Ostomy education ASSESSMENT: SN greeted at door by patient no DME and demonstrates stable gait. Patient appears in no acute distress. Patient/CG concerns verbalized today: none Vitals (see flow sheet for details): stable SN findings today: pt greeted sn at door. pt denies any falls. pt c/o dull ache around incision site on abdomen. pt denies any s/s infection. pts vitals are wnl. incision site with steri strips intact, no s/s infection noted. disolveable sutures noted in place around stoma. stoma appearance is red and beefy. skin around stoma is free of redness and irritation. pt tells sn she manages emptying bagwith no issue but is very nervous about changing. pt asked sn to use baby steps with pt and go slowly. sn assisted pt with steps in changing appliance bag. pt does very little hands on and tells sn she will do more next time. pt is very clean about the process and seems very put off about seeing the stoma, the noises the stoma emits, and even emptying the stool from the bag, pt asks sn not to watch her for privacy reason. sn is very understanding and empathetic with pt. sn had pt verbalize steps with sn so as to get more familiar and comfortable. pt told sn at end of visit she did recievea new shipment of ostomy supplies as well. sn taught pt s/s infection to watch for, and when to call in for assistance. pt tells sn she had no leakage issues from device this last time. pt tells sn her appetite is not great. pt tells sn she is trying to eat light meals and small snacks. pt deniesany issues. pt denies any cp or sob See intervention summary for education details. Patient demonstrated a need for further skilled SN services for chronic disease management & education, safety and ostomy management & education. Current Discharge plan: self-care RECOMMENDATION: Next visit to focus on (be specific): continue ostomy education, have patient complete steps hands on with nurse documented in this encounterFostoria [facility]07-18-2024 Patient's home Note* HH SN Routine - Mariajose Carpenter RN - 04/22/2024 11:15 AM EDT SITUATION: Fdc routine visit completed today. only patient also present during today's visit. patient reports the following: Allergies--reviewed Medications--reviewed current medications Falls--None DME-NONE BACKGROUND: Reason for Home Care: Ostomy education ASSESSMENT: SN greeted at door by patient no DME and demonstrates stable gait. Patient appears in no acute distress. Patient/CG concerns verbalized today: none Vitals (see flow sheet for details): stable SN findings today: pt greeted sn at door. pt denies any falls. pt c/o dull ache around incision site on abdomen. pt denies any s/s infection. pts vitals are wnl. incision site with steri strips intact, no s/s infection noted. disolveable sutures noted in place around stoma. stoma appearance is red and beefy. skin around stoma is free of redness and irritation. pt tells sn she manages emptying bagwith no issue but is very nervous about changing. pt asked sn to use baby steps with pt and go slowly. sn assisted pt with steps in changing appliance bag. pt does very little hands on and tells sn she will do more next time. pt is very clean about the process and seems very put off about seeing the stoma, the noises the stoma emits, and even emptying the stool from the bag, pt asks sn not to watch her for privacy reason. sn is very understanding and empathetic with pt. sn had pt verbalize steps with sn so as to get more familiar and comfortable. pt told sn at end of visit she did recievea new shipment of ostomy supplies as well. sn taught pt s/s infection to watch for, and when to call in for assistance. pt tells sn she had no leakage issues from device this last time. pt tells sn her appetite is not great. pt tells sn she is trying to eat light meals and small snacks. pt deniesany issues. pt denies any cp or sob See intervention summary for education details. Patient demonstrated a need for further skilled SN services for chronic disease management & education, safety and ostomy management & education. Current Discharge plan: self-care RECOMMENDATION: Next visit to focus on (be specific): continue ostomy education, have patient complete steps hands on with nurse [facility] Work Phone: [phone] History of Present illness Narrative* Nile Hall, - 04/22/2024 9:10 AM EDT Patient referred by Dr. Buckner for neoadjuvant chemotherapy for ovarian cancer. The impression and plan will be communicated by way of the shared electronic record or faxed under separate cover letter. HPI: The patient is a 72-year-old female with a past medical history as outlined below. CT A/P 03/10/2024: RESULT: Liver: No mass. Biliary: No bile duct dilation. No calcified gallstones. Spleen: No mass. No splenomegaly. Pancreas: Mildly prominent pancreatic duct. No lesions identified. Adrenals: No mass. Kidneys: No renal lesions or hydronephrosis. GI tract: No dilation or wall thickening. Lymph nodes: No abdominal or pelvic lymphadenopathy. Mesentery/Peritoneum: Moderate volume ascites. No loculated collections. Infiltrative change in mesenteric fat and areas of peritoneal thickening with possible mild serosal thickening of scattered small bowel loops. Retroperitoneum: No mass. Vasculature: - Abdominal aorta and iliac arteries: Atherosclerotic calcifications without aneurysm. - Celiac and SMA: Patent without stenosis. - Portal venous system (SMV, splenic vein, portal vein and branches): Patent. - Hepatic veins: Patent. Pelvis: Left pelvic 9.0 x 7.5 x 11.1 cm cystic mass with internal septations and areas of minimal peripheral wall thickening. Contiguous 6.5 x 3.7 cm heterogeneous soft tissue mass centered in the right pelvis (5:112). Moderate volume ascites at the upper pelvis there is a peritoneal thickening. Presacral edema. Bones/Soft Tissues: No acute findings. Lower thorax: Unremarkable. Localizer images: No additional findings. IMPRESSION: Large complex cystic mass in the left pelvis with adjacent soft tissue component extending into the right pelvis concerning for ovarian neoplasm. Ascites and changes of carcinomatosis also present in the abdomen and pelvis. CT Chest 03/10/2024: IMPRESSION: Few small sub-6 mm indeterminate lung nodules. Continued attention on follow-up is suggested given history of pelvic mass. No thoracic lymph node enlargement. Focal thickening along the right anterior pleura and a cluster of subcentimeter right cardiophrenic lymph nodes. Continued attention on follow-up is suggested. 04/29/2024-- Exploratory laparotomy Aborted Debulking Peritoneal biopsies Diverting loop ileostomy ~2L serous ascites evacuated. 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 Ovarian mass in pelvis, unable to palpate rectum/sigmoid. Small bowel with extensive dilation and collapsed large bowel, likely small bowel obstruction near ileocecal valve but unable to mobilize bowel sufficiently due to mesenteric carcinomatosis to visualize the obstruction. Carcinomatosis along diaphragm and in the left upper quadrant but evaluation was limited by small bowel. Tumor involving the root of the small bowel mesentery. Pathology: A. Right abdominal wall peritoneum, excision: High-grade serous carcinoma; see comment. B. Left abdominal wall peritoneum, excision: High-grade serous carcinoma; see comment. Appetite still low. Has early satiety. Abdominal pain much improved. Ostomy working well. 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 left sterotactic COLONOSCOPY FLX DX W/COLLJ SPEC WHEN PFRMD 03/09/2012 Colonoscopy COLONOSCOPY FLX DX W/COLLJ SPEC WHEN PFRMD 11/22/15 Colonoscopy (MAC) ESOPHAGOGASTRODUODENOSCOPY TRANSORAL DIAGNOSTIC 11/22/15 EGD (MAC) ALLERGIES No Known Allergies Current Outpatient Medications Medication Sig ondansetron orally disintegrating (ZOFRAN ODT) 4 mg disintegrating tablet Take 1 tablet by mouth every 6 hours as needed for nausea/vomiting. [START ON 04/23/2024] oxyCODONE IR (ROXICODONE) 5 mg immediate release tablet Take 1 tablet by mouthevery 8 hours as needed for pain for up to 3 days. Do not start before April 23, 2024. acetaminophen (TYLENOL EXTRA STRENGTH) 500 mg tablet Take 1,000 mg by mouth every 6 hours as neededfor pain. apixaban (ELIQUIS) 2.5 mg tab(s) Take 1 tablet by mouth two times a day. nutritional supplement ([employer] STANDARD 1.4) 0.06 G - 1.4 Kcal/mL oral liquid Take 325 mL by mouth three times a day. dicyclomine (BENTYL) 10 mg capsule Take 1 or 2 before meals, as needed. (Patient taking differently: Take 10 mg by mouth three times a day as needed (abdominal cramping). Take 1 or 2 before meals, asneeded.) alendronate (FOSAMAX) 70 mg tablet Take 1 tablet by mouth one time a week. Take with a full glass of water, on an empty stomach; do NOT lie down for 30minutes. Cholecalciferol, Vitamin D3, 50 mcg (2,000 unit) cap Take 1 capsule by mouth once daily. Loperamide HCl (ANTI-DIARRHEAL) 2 mg tab Take 1 tablet by mouth as needed. No current facility-administered medications for this visit. Social History Tobacco Use Smoking status: Never Smokeless tobacco: Never Substance Use Topics Alcohol use: Yes Comment: social Drug use: No Family History Problem Relation Age of Onset None Mother None Father Breast Cancer Maternal Aunt Anesthesia Problems No Family History ROS: Constitutional: No fever. No drenching night sweats. Normal appetite. No unexplained weight loss. No significant fatigue. Neuro: No recent STAHL, vertigo, dizziness or imbalance. No symptoms of sensory neuropathy. HEENT: No recent change in voice, vision or hearing. Resp: No cough, wheeze of hemoptysis. No shortness of breath at rest. No RODRIGUES. CVS: No exertional chest pain, PND or orthopnea. No extremity swelling/edema. No symptoms of claudication. No painful or tender varicose veins. GI: See above. : No dysuria or gross hematuria. Endo: No hot flashes. No polyuria or polydipsia. No heat or cold intolerance. Musculoskeletal: No bone, back, joint and muscular pain. Derm: No current rash. No history of jaundice. No diffuse pruritis. Heme: No unusual bleeding and unexplained bruising. Psych: Normal mood. PHYSICAL EXAM: Vitals: Blood pressure 103/68, pulse 75, temperature 36.6 C (97.9 F), temperature source Temporal, height 166.4 cm (5' 5.5), weight 55.3 kg (122 lb), SpO2 99%. Well-appearing and in no acute distress. EYES: Sclerae are anicteric bilaterally. LYMPHATIC: There is no palpable cervical supraclavicular, adenopathy. RESPIRATORY: Inspiratory breath sounds are of normal intensity in all moyer. CARDIOVASCULAR: Rhythm is regular. ABDOMEN: The abdomen is nondistended. Extremities: No swelling or edema. SKIN: No jaundice. 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 -Recent small bowel obstruction status post ileostomy. -Baseline CA 125 305 units/mL 03/15/2024. -Malnutrition. -I discussed the natural history, treated course, and prognosis of stage IIIC high-grade serous ovarian carcinoma with the patient and her . -Recommended paclitaxel and carboplatin. Hold bevacizumab secondary to recent surgery and bowel involvement. -Also discussed the rationale, logistics, potential risks (including but not limited to alopecia, cytopenias, neuropathy, fatigue, nausea vomiting, diarrhea, infectious complications and the small potential for as a consequence of severe toxicity/complications of therapy), benefits and alternatives, as well as the personnel involved in the administration of paclitaxel and carboplatinum. I answered her questions in detail and she verbalized understanding and agreed with the recommended therapy. Please see the electronic consent document for details of doses and schedule. Plan: -See if can move up genetic counseling appointment. -NGS on biopsy specimen. -Rx for ondansetron, Compazine and dexamethasone prep for first cycle of paclitaxel. -Chemotherapy teaching. -CBC, CMP, hep remote panel, CA125, iron studies and magnesium today. -Begin chemotherapy next week. -Monitor CA125. -CT following 3 cycles. -Potential debulking surgery with ostomy takedown following 3 cycles. I spent a total of 60 minutes on the date of the service which included preparing to see the patient, [id number] patient care, completing clinical documentation, obtaining and/or reviewing separately obtained history, performing a medically appropriate examination, counseling and educating the pat ient/family/caregiver, ordering medications, tests, or procedures, communicating with other HCPs (not separately reported), and communicating results to the patient/family/caregiver. Nile Hall DO documented [facility] Telephone encounter Note * Telephone Encounter - Sana Morales - 04/20/2024 10:53 AM EDT Scheduled with patient [facility] Work Phone: [phone] 380-121507-16-2024 Miscellaneous Notes* Telephone Encounter - Sana Morales - 04/20/2024 10:53 AM EDT Scheduled with patient * Telephone Encounter - Tarsha Carballo - 04/20/2024 10:45 AM EDT 2nd attempt - left message. When she calls, please move consul up to 04/22 in the held appointment spot. Tarsha Carballo * Telephone Encounter - Tarsha Carballo - 04/19/2024 4:36 PM EDT Per clinical staff, Dr. Hall would like to see the patient on 04/22/24 at 9:10. (2 patients will need moved.) Left message for néstor to return call. When she calls, please offer 04/22 at 9:10 (arrive at 8:40). Tarsha Carballo * Telephone Encounter - Anahi Dyer - 04/19/2024 1:[address]Peter Buckner's office called to schedule Sal to see for ovarian cancer. I scheduled patient in the next new spot of 05/10/2024. Please advise if there is anything else patient needs before prior to the schedule new consult. Thank you, Anahi Deutsch Pss documented in this encounterF[facility]07-16-2024 Telephone encounter Note * Telephone Encounter - Tarsha Carballo - 04/20/2024 10:45 AM EDT 2nd attempt - left message. When she calls, please move consul up to 04/22 in the held appointment spot. Tarsha Carballo [facility]07-15-2024 Telephone encounter Note* Telephone Encounter - Tarsha Carballo - 04/19/2024 4:36 PM EDT Per clinical staff, Dr. Hall would like to see the patient on 04/22/24 at 9:10. (2 patients will need moved.) Left message for néstor to return call. When she calls, please offer 04/22 at 9:10 (arrive at 8:40). Tarsha Carballo [facility]07-15-2024 Miscellaneous Notes* SN Routine - Avril Graham RN - 04/19/2024 2:41 PM EDT SITUATION: Fdc routine visit completed today. spouse also present during today's visit. patient reports the following: Allergies--reviewed Medications--reviewed current medications Falls--None BACKGROUND: Reason for Home Care: new ileostomy, new dx of probable ovarian CA ASSESSMENT: SN greeted at door by patient no DME and demonstrates stable gait. Patient appears in no acute distress. Patient/CG concerns verbalized today: no new concerns. Vitals (see flow sheet for details): stable SN findings today: Pt ambulated to bathroom for pouch change. Pt is very particular about cleanliness and SN prepared bathroom floor with a drape and demonstrated to pt how to do SN assessed stoma and is still the same size. SN instructed pt on preparing of of her supplies before taking off the pouch. SN demonstrated this to pt. Pouch removed using adhesive remover, some adhesive debris from paste noted, no peristomal skin irritation and mucocutaneous junction without separation or irritation. Stoma protrudes nicely and is 38 cm and round. Some dissolvable sutures remain. Stool contines to bemostly liquid but pt states that it has had times when it has been a little thicker. She has been measuring and has not been more than 1200 ml/day. She reports that she feels that her appetite is better now than it was before surgery. She continues to eat snack sized meals frequently, has been eating peanut butter, bananas, drinking water and gatorade type fluids. Much discussion took place about her treatment plan. She reports that Dr Buckner is recommending chemofor 2-3 cycles and then reassess for possible surgical intervention (there was no tumor removal with original surgery) and then possible chemo following surgery. Much discussion and encouragement regarding this treatment plan. SN encouraged pt that her local oncologist, Dr Hall, is a well established oncologist. SN encouraged pt to follow through with this appt and discuss all options with Dr Hall. Pt is agreeable. Dave were removed at surgeon's office and steristrips are in place. Wound is open to air, pt permitted to shower. No wound concerns are noted. See intervention summary for education details. Patient demonstrated a need for further skilled SN services for wound/skin care, safety and ostomy management & education. Current Discharge plan: self-care and family support RECOMMENDATION: Next visit to focus on (be specific): Did pt get new supplies? Ostomy nurse from [facility] ordered convex flanges with Lock and roll pouches. Pt now to start using a barrier ring. Instruct use of new supplies if available; if not, apply the flat flange with high output pouch and Avril will be happy to introduce new products on Friday. Pt is committed to do this care herself and SN encouraged her with taking baby steps to get there. documented in this encounterFost[facility]07-15-2024 Patient's home Note* SN Routine - Avril Graham RN - 04/19/2024 2:41 PM EDT SITUATION: Fdc routine visit completed today. spouse also present during today's visit. patient reports the following: Allergies--reviewed Medications--reviewed current medications Falls--None BACKGROUND: Reason for Home Care: new ileostomy, new dx of probable ovarian CA ASSESSMENT: SN greeted at door by patient no DME and demonstrates stable gait. Patient appears in no acute distress. Patient/CG concerns verbalized today: no new concerns. Vitals (see flow sheet for details): stable SN findings today: Pt ambulated to bathroom for pouch change. Pt is very particular about cleanliness and SN prepared bathroom floor with a drape and demonstrated to pt how to do SN assessed stoma and is still the same size. SN instructed pt on preparing of of her supplies before taking off the pouch. SN demonstrated this to pt. Pouch removed using adhesive remover, some adhesive debris from paste noted, no peristomal skin irritation and mucocutaneous junction without separation or irritation. Stoma protrudes nicely and is 38 cm and round. Some dissolvable sutures remain. Stool contines to bemostly liquid but pt states that it has had times when it has been a little thicker. She has been measuring and has not been more than 1200 ml/day. She reports that she feels that her appetite is better now than it was before surgery. She continues to eat snack sized meals frequently, has been eating peanut butter, bananas, drinking water and gatorade type fluids. Much discussion took place about her treatment plan. She reports that Dr Buckner is recommending chemofor 2-3 cycles and then reassess for possible surgical intervention (there was no tumor removal with original surgery) and then possible chemo following surgery. Much discussion and encouragement regarding this treatment plan. SN encouraged pt that her local oncologist, Dr Hall, is a well established oncologist. SN encouraged pt to follow through with this appt and discuss all options with Dr Hall. Pt is agreeable. Guin were removed at surgeon's office and steristrips are in place. Wound is open to air, pt permitted to shower. No wound concerns are noted. See intervention summary for education details. Patient demonstrated a need for further skilled SN services for wound/skin care, safety and ostomy management & education. Current Discharge plan: self-care and family support RECOMMENDATION: Next visit to focus on (be specific): Did pt get new supplies? Ostomy nurse from [facility] ordered convex flanges with Lock and roll pouches. Pt now to start using a barrier ring. Instruct use of new supplies if available; if not, apply the flat flange with high output pouch and Avril will be happy to introduce new products on Friday. Pt is committed to do this care herself and SN encouraged her with taking baby steps to get there. [facility] Work Phone: [phone] Telephone encounter Note* Telephone Encounter - Anahi Dyer - 04/19/2024 1:[address]Peter Buckner's office called to schedule Sal to see for ovarian cancer. I scheduled patient in the next new spot of 05/10/2024. Please advise if there is anything else patient needs before prior to the schedule new consult. Thank you, Anahi Deutsch Pss [facility]07-15-[facility] Nurse Note* Tess Tabares RN - 04/19/2024 12:06 PM EDT Dave removed per Dr Buckner order. Dave removed without difficulty. Patient tolerated well. Steri-strips applied and wound care instructions given. Tess Tabares RN [facility]07-15-2024 Nurse Note* Tess Tabares RN - 04/19/2024 12:06 PM EDT Dave removed per Dr Buckner order. Dave removed without difficulty. Patient tolerated well. Steri-strips applied and wound care instructions given. Tess Tabares RN documented in this encounterFost[facility]07-15-2024 History of Present illness Narrative* Fredis Buckner MD - 04/19/2024 11:30 AM EDT Gynecologic Oncology [facility] Postop Re: Sal Bautista [facility]#: [id number] Date of Service: 04/19/2024 Dr. Romel Michelle Dear Romel: Sal presents for a follow-up visit for high-grade serous carcinoma of Mullerian origin, carcinomatosis, and partial SBO s/p DLI. Briefly, she is a 74 year old female, 2, para 2 with a past medical history of IBS and osteoporosis who was referred for the evaluation of pelvic mass. 02/24/2024 patient presented to PCP with c/o abdominal distention and bloating. History of IBS causing both diarrhea and constipation. TREATMENT HISTORY: 03/10/2024 CT Abd/Pel IMPRESSION: Large complex cystic mass in the left pelvis with adjacent soft tissue component extending into the right pelvis concerning for ovarian neoplasm. Ascites and changes of carcinomatosis also present in the abdomen and pelvis. 03/15/2024 Consult: 73yo female presents for management of pelvic mass, peritoneal thickening, and moderate volume ascites. No tumor markers were drawn. Patient with history of IBS. Her last colonoscopy from November 2015 was normal. She has been losing weight since December this year. Reports difficulty with eating which is not unusual for IBS. Family history of breast cancer (maternal aunt). I reviewed her CT scan from 03/10/2024 showing a large pelvic mass. There were irregularities seen along the diaphragm reflecting fluid and solid masses. There were ascites and findings suggesting carcinomatosis. I discussed my suspicion for malignancy and we will obtain tumor markers (CA125, CA19-9,and CEA) for further work up. We typically treat gynecologic cancers with either primary surgery and adjuvant chemotherapy or neoadjuvant chemotherapy and interval debulking surgery. Patient is 73 year old but she has good performance status and has no significant medical problems. I think she willbe a good candidate for primary debulking surgery if her prealbumin is wnl. If patient can be optimally cytoreduced, her survival could be improved. We will obtain prealbumin to evaluate her nutritional status and a chest CT to rule out intrathoracic disease. If her prealbumin is acceptable, will plan for primary debulking. Discussed the duration of hospital stay of 3 days after surgery with no bowel resection and approximately 7 days with bowel resection. If her CA125 is normal and her other tumor markers are elevated, may plan for IR biopsy to determine primary. If her prealbumin is very low, this could increase operative morbidity from primary surgery so we will pursue neoadjuvant chemotherapy while bringing her nutritional status up to get ready for interval debulking. I explained that chemotherapy can help reduce the volume of her ascites at which point she will feel less distendedand be able to eat more. Consents obtained today for both primary surgery and neoadjuvant chemotherapy and we will decide which approach based on her lab and imaging results. Latest Ref Rng 03/15/2024 Prealbumin 17 - 36 mg/dL 12 (L) Latest Ref Rng 03/15/2024 CEA <=2.9 ng/mL 0.6 CA 125 <39 U/mL 305 (H) CA19-9 <36.0 U/mL 11.0 03/16/2024 CT CHEST WO IVCON IMPRESSION: Few small sub-6 mm indeterminate lung nodules. Continued attention on follow-up is suggested given history of pelvic mass. No thoracic lymph node enlargement. Focal thickening along the right anterior pleura and a cluster of subcentimeter right cardiophreniclymph nodes. Continued attention on follow-up is suggested. 03/16/2024 Telephone encounter with Aga Meredith APRN.PHOTOGRAPHER LITHOGRAPHIC Called and spoke with patient~ per Dr. Buckner, he would like to cancel surgery tomorrow and admit herfor paracentesis and placement of feeding tube for poor nutritional status. Called admitting to request bad and advised patient that they would call her when bed becomes available. Updated inpatient team. Updated tugboat mate that her case needs to be cancelled tomorrow. 03/17 - 03/24/2024 [facility] [place] admission - Paracentesis and nutritional optimization PROCEDURES DURING HOSPITALIZATION: Corpak placement, EGD-guided Corpak placement HOSPITAL COURSE: Sal Bautista is a 73 year old female with a hx of IBS, osteopenia, and large pelvic mass who presented for nutritional optimization and paracentesis prior to surgery. She underwent a paracentesis on 03/17, with cytology notable for malignant cells consistent with high-nuclear grade adenocarcinoma. She underwent a Corpak placement for nutritional optimization, however it was noted to be folded back on itself on multiple KUBs. She then underwent an EGD-guided Corpak placement, which subsequently became clogged. Treatment with clog zapper and viokace was not effective and therefore decision was made to remove the corpak and discharge home without outpatient follow up. 03/17/2024 Paracentesis FINAL DIAGNOSIS A - Ascites Fluid, Sterile Fluid/Body Fluid Positive for malignant cells. High-nuclear grade adenocarcinoma. See comment. Diagnosis Comment Immunohistochemical stains show that the malignant cells are positive for Cambridge-8, Claudin-4 and negative for D2-40, ER. WT-1 shows rare, weak staining. P53 shows weak to moderate nuclear staining. Thestaining pattern of the p53 is suboptimal and should be repeated in the surgical specimen. The immunohistochemical staining pattern is consistent with a mullerian origin. Selected slides were reviewed in consultation with Dr. Munoz, who concurs. 03/29/2024 Visit: Patient presents with her for hospital follow-up visit. She was recently hospitalized for nutritional optimization and paracentesis prior to surgery. Underwent Corpak placement however it was noted to be folded back on itself on multiple KUBs. She then underwent an EGD-guided Corpak placement, which subsequently became clogged. Treatment with clog zapper and viokace was not effective and therefore decision was made to remove the corpak and discharge home with outpatientfollow up. I reviewed the cytologic study of her paracentesis. The immunohistochemical staining pattern is consistent with a Mullerian origin of high-nuclear grade adenocarcinoma although p53 staining pattern was inconclusive which could be due to insufficient cells and should be repeated in the surgical specimen. Reviewed low grade serous carcinoma (5% of all cases), high grade serous carcinoma (remaining 95%), different oncogenic pathways and only 4% of patients with low grade serous carcinoma achieved complete response when treated with chemotherapy. In this patient population, primary cytoreductive surgery is typically planned. The patient has good performance status for her age and no significant medical problems. If she canbe optimally cytoreduced, her survival could be improved (average OS ~ high 70 months and PFS ~ high 20 months). We will repeat prealbumin today to reassess her nutritional status. She has been drinking 2.5 protein boost per day. Explained the importance of nutritional optimization prior to surgeryto lower operative morbidity and be able to achieve optimal recovery. If her repeat prealbumin is acceptable, will plan for primary debulking. Otherwise, may plan for TPN for one week to bring up hernutrition and plan for surgery vs initiation of neoadjuvant chemotherapy to shrink her tumor volumewhile bringing her nutritional status up to get ready for interval debulking. Patient and expressed understanding and agreement with the plan. 04/09 - 04/13/2024 [facility] [place] admission OPERATIONS DURING HOSPITALIZATION: XL, aborted debulk, diverting loop ileostomy PROCEDURES DURING HOSPITALIZATION: No procedures performed HOSPITAL COURSE: Sal Bautista is a 73 yo female who was admitted with complex L pelvic mass. On 04/09 she underwent exploratory laparotomy and diverting loop ileostomy. Debulking of tumor was aborted due to significant carcinomatosis. SBO was visualized near ileocecal valve intraoperatively. Severalperitoneal biopsies were obtained. On POD#1, she passed her void trial and had adequate urine output. She had good ostomy output, and her diet was able to be advanced to to GIS. Her pain was well controlled with Tylenol and PO oxycodone 5mg PRN. On 7, she complained of LLE swelling and had a DVT US which was negative. On POD#4 shewas tolerating a diet, ambulating, meeting all post operative milestones, and was able to be discharged home. 04/09/2024 Exploratory laparotomy, drainage of ascites, peritoneal biopsies, and diverting loop ileostomy Residual: >2.0 cm Peritoneal PREOPERATIVE DIAGNOSIS: High-grade carcinomatosis. POSTOPERATIVE DIAGNOSIS: High-grade carcinomatosis, pending final pathology, partial small bowel obstruction. FINDINGS: ~2L serous ascites evacuated. 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 Ovarian mass in pelvis, unable to palpate rectum/sigmoid. Small bowel with extensive dilation and collapsed large bowel, likely small bowel obstruction near ileocecal valve but unable to mobilize bowel sufficiently due to mesenteric carcinomatosis to visualize the obstruction. Carcinomatosis along diaphragm and in the left upper quadrant but evaluation was limited by small bowel. Tumor involving the root of the small bowel mesentery. FINAL DIAGNOSIS A. Right abdominal wall peritoneum, excision: High-grade serous carcinoma; see comment. B. Left abdominal wall peritoneum, excision: High-grade serous carcinoma; see comment. Diagnosis Comment Immunohistochemical stains were performed on block A1 and the tumor cells are positive for CK7, PAX8, ER, WT1, p16 and show aberrant (strong diffuse) staining for p53. A CK20 is negative. 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 HEALTH MAINTENANCE: Last pap smear: 02/06/2017 - Negative Last mammogram: 07/07/2023 - Negative Last colonoscopy: 11/22/2015 normal SUBJECTIVE/INTERVAL HISTORY: Patient reports since discharge, she is able to eat better. She doesn't bring her ostomy output logwith her today but states that it has been <1200 cc. She is still taking oxycodone and tylenol once a day for her incisional pain. OBJECTIVE: BP 107/67 Pulse 75 Temp 36.4 C (97.5 F) (Oral) Wt 55.8 kg (123 lb) SpO2 100% BMI 20.47 kg/m Female in no acute distress. Abdominal - Incision well-healed, without evidence of hernia or infection. No CVA tenderness. The bowel sounds are positive. The abdomen is soft, nontender and there is no inguinal adenopathy. Surgical dave removed, steri-strips applied. Functional RLQ colostomy. [employer] offered: Patient accepts, visit chaperoned by Tess Tabares RN IMPRESSION/PLAN: 04/19/2024 Dx: high-grade serous carcinoma of Mullerian origin, carcinomatosis, and partial SBO s/p DLI Normal post operative course. Surgical incisions are intact, healing well, and show no signs of infection. Surgical dave removed, steri-strips applied. Postop restrictions and wound care reviewed.Patient reports since discharge, she is able to eat better. She didn't bring her ostomy output log with her today but states that it has been <1200 cc. She is still taking oxycodone and tylenol once a day for her incisional pain. She is cleared to resume taking fosamax. Reviewed operative findings with small bowel with extensive dilation and collapsed large bowel, likely small bowel obstruction near ileocecal valve but unable to mobilize bowel sufficiently due to mesenteric carcinomatosis to visualize the obstruction. Therefore, primary debulking was aborted and DLI was performed. The result of p53 staining from her paracentesis was inconclusive but it was rechecked on her peritoneal biopsies and turned out to be aberrant. This confirms the diagnosis of high-grade serous carcinoma. Discussed a plan to initiate neoadjuvant chemotherapy and monitor her disease response with interval DI699w and CT scans. We will plan for interval debulking if she responds favorably to treatment. Patient was initially hesitant to consider chemotherapy as she has seen many ovarian cancer patients going through chemotherapy and start deconditioning. Discussed that every patient responds differently to therapy and there are medications that help control her symptoms. We could plan to have patient undergo chemotherapy in [place] with Dr Hall and follow up for scan review after 3 cycles to reassess her disease status for interval debulking surgery and ileostomy reversal. After our discussion,patient amenable to this plan. We will obtain genetic testing. Patient reports her brother had pancreatic cancer. I explained that20% of the patients with high-grade serous ovarian carcinoma were found to carry germline BRCA mutations and having the mutations indicating favorable response to chemotherapy. ATTESTATION: By signing my name below, Hayley Noyola, attest that this documentation has been prepared under the direction and in the presence of Fredis Buckner MD. Electronically signed: Narciso Good, April 19, 2024 11:52 AM Provider Attestation: Fredis Noyola MD, personally performed the services described in this documentation. All medicalrecord entries made by the scribe were at my direction and in my presence. I have reviewed the chart and discharge instructions (if applicable) and agree that the record reflects my personal performance and is accurate and complete. Fredis Buckner MD April 19, 2024 5:17 PM I have confirmed and edited as necessary, the history of the present illness (HPI). Interval changes in the history of present illness are noted. I have confirmed and edited as necessary, the PFSH and ROS obtained by others. I saw the patient and personally participated in the saenz components and agree with the documented findings and plan. Sincerely, Fredis Buckner M.D. Reviewed and corrected by Fredis Buckner M.D. The previous note written by Dr. Buckner dated 03/29/2024 was copied forward and the necessary changes were made. Medical Decision Making: Problems: Moderate: New problem with uncertain prognosis Data: Unique test result(s) reviewed: 3+ Risk: Moderate: Drug management Medical Decision Making Level: 4 - Moderate documented in this encounterFost[facility]07-11-[facility] Miscellaneous Notes* HH SN SOC - Avril Graham RN - 04/15/2024 9:21 AM EDT SITUATION: Fdc SOC visit completed today. spouse also present during today's visit. patient reports the following: Allergies--reviewed Medications--full medication reconciliation completed Falls--None DME-Reviewed and added to chart BACKGROUND: Discharged/Referral from acute [facility] on 04/13/24 following treatment for exp lap with hysterectomy and creation of loop ileostomy. Pertinent referral information or other diagnoses that may affect plan of care: IBS ASSESSMENT: SN greeted at door by caregiver. Upon entrance patient found in chair Patient appears in no acute distress. Patient lives at home with spouse. Home environment: clean, uncluttered and has pets: 2 dogs. SOC booklet reviewed & completed with patient and consent obtained for Home Care services. Patient/CG concerns verbalized today: pt has many questions that were all addressed during vs. Vitals (see flow sheet for details): stable SN findings today: Pt is ambulating in the home without a device, her gait is slow but steady. Pt lives with her spouse in a 2 story home but pt main living areas is on one level. Pt reports that shehas been treated for IBS for many years and her most recent symptoms of abdominal bloating and cramping, increased intestinal gas were attributed to this until recently when it was discovered that she has a pelvic mass. Pt underwent exp lap and it appears that the mass is most likely to be ovarian CA, she states that this was not able to be resected at the time of surgery and an loop ileostomy was created. She is not sure of the course of treatment at this time and will be seeing Dr Buckner on 04/19 for follow up on course of treatment. Pt admits that she is having some difficulty adjusting to the new dx and the ileostomy but has been caring for the ostomy by emptying the pouch and plans to take care of pouch changes on her own. She is well organized and has all supplies in the bathroom for today's pouch change. SN performed pouch change. Stoma protrudes nicely, no mucocutaneous separation, peristomal skin is in good condition. Pt does have some abdominal swelling and it is noted that shehad a paracentesis prior to surgery. Stool is liquid brown, pt not consistently measuring. SN instructed pt to please measure output as the goal is to keep it <1200 ml/day. It does not appear thatpt is having excessive output based on how often she is emptying the pouch. Pt is willing and able to learn the care and she is agreeable to goal of 6 weeks to accomplish this. Much time and instruction took place for post op instructions, ostomy instructions and pt questions. One of pt's main concerns is that she continues to have leg edema. SN notes that this is not deeply pitting but is quite noticable. Pt reports that no one seems to be concerned. This SN explained that much of this may be vascular congestion related to surgery and possibly the tumor and suggested that she consider laying down for rest for at least 30-60 minutes twice a day. Mildly elevate her legs but the purpose forlaying in a bed is to straighten legs in the groin area allowing for better venous blood flow. Pt ve rbalizes good understanding. See intervention summary for education details and skills performed. Plan of care and visit frequency established with patient and plan of care agreed upon. Patient demonstrated a need for further skilled SN services for ostomy management & education. RECOMMENDATION: Visit Frequency: 1 wk 1, 2 wk 4, 1 wk 1 Need for additional services: Patient agreeable to N/A referrals. Patient declined N/A referrals. Additional concerns to be followed up on: NONE Next visit to focus on (be specific): Ostomy pouch change, follow up on edema management, pain management, pt coping, plan for tx. documented in this encounterFostoria City [facility]07-11-[facility] Patient's home Note* SN SOC - Avril Graham RN - 04/15/2024 9:21 AM EDT SITUATION: Fdc SOC visit completed today. spouse also present during today's visit. patient reports the following: Allergies--reviewed Medications--full medication reconciliation completed Falls--None DME-Reviewed and added to chart BACKGROUND: Discharged/Referral from [facility] on 04/13/24 following treatment for exp lap with hysterectomy and creation of loop ileostomy. Pertinent referral information or other diagnoses that may affect plan of care: IBS ASSESSMENT: SN greeted at door by caregiver. Upon entrance patient found in chair Patient appears in no acute distress. Patient lives at home with spouse. Home environment: clean, uncluttered and has pets: 2 dogs. SOC booklet reviewed & completed with patient and consent obtained for Home Care services. Patient/CG concerns verbalized today: pt has many questions that were all addressed during vs. Vitals (see flow sheet for details): stable SN findings today: Pt is ambulating in the home without a device, her gait is slow but steady. Pt lives with her spouse in a 2 story home but pt main living areas is on one level. Pt reports that shehas been treated for IBS for many years and her most recent symptoms of abdominal bloating and cramping, increased intestinal gas were attributed to this until recently when it was discovered that she has a pelvic mass. Pt underwent exp lap and it appears that the mass is most likely to be ovarian CA, she states that this was not able to be resected at the time of surgery and an loop ileostomy was created. She is not sure of the course of treatment at this time and will be seeing Dr Buckner on 04/19 for follow up on course of treatment. Pt admits that she is having some difficulty adjusting to the new dx and the ileostomy but has been caring for the ostomy by emptying the pouch and plans to take care of pouch changes on her own. She is well organized and has all supplies in the bathroom for today's pouch change. SN performed pouch change. Stoma protrudes nicely, no mucocutaneous separation, peristomal skin is in good condition. Pt does have some abdominal swelling and it is noted that shehad a paracentesis prior to surgery. Stool is liquid brown, pt not consistently measuring. SN instructed pt to please measure output as the goal is to keep it <1200 ml/day. It does not appear thatpt is having excessive output based on how often she is emptying the pouch. Pt is willing and able to learn the care and she is agreeable to goal of 6 weeks to accomplish this. Much time and instruction took place for post op instructions, ostomy instructions and pt questions. One of pt's main concerns is that she continues to have leg edema. SN notes that this is not deeply pitting but is quite noticable. Pt reports that no one seems to be concerned. This SN explained that much of this may be vascular congestion related to surgery and possibly the tumor and suggested that she consider laying down for rest for at least 30-60 minutes twice a day. Mildly elevate her legs but the purpose forlaying in a bed is to straighten legs in the groin area allowing for better venous blood flow. Pt ve rbalizes good understanding. See intervention summary for education details and skills performed. Plan of care and visit frequency established with patient and plan of care agreed upon. Patient demonstrated a need for further skilled SN services for ostomy management & education. RECOMMENDATION: Visit Frequency: 1 wk 1, 2 wk 4, 1 wk 1 Need for additional services: Patient agreeable to N/A referrals. Patient declined N/A referrals. Additional concerns to be followed up on: NONE Next visit to focus on (be specific): Ostomy pouch change, follow up on edema management, pain management, pt coping, plan for tx. [facility] Work Phone: 1(985) 278-824707-08-2024 Telephone encounter Note* Telephone Encounter - Brielle Quezada - 04/12/2024 3:47 PM EDT Date/Time: 04/12/2024 3:49 PM Spoke with Cliff Bautista @ phone #: [phone] - Preferred # for contact: [phone] Have you received help from a home care company in the last 60 days? NO Are you agreeable to [facility] services? YES What address will we be seeing you at? [address] [place] [address] Do you have any upcoming appointments or things we need to schedule around? NO Do you have a teachable CG or can you manage your care independently? CG NOT SURE ON FLU SHOT [facility] Work Phone: 1(961) 819-328107-08-2024 Miscellaneous Notes* Telephone Encounter - Quezada, Brielle - 04/12/2024 3:47 PM EDT Date/Time: 04/12/2024 3:49 PM Spoke with Cliff Bautista @ phone #: [phone] - Preferred # for contact: [phone] Have you received help from a home care company in the last 60 days? NO Are you agreeable to [facility] services? YES What address will we be seeing you at? [address] [facility] [address] Do you have any upcoming appointments or things we need to schedule around? NO Do you have a teachable CG or can you manage your care independently? CG NOT SURE ON FLU SHOT documented in this encounterFostoria City Hospital07-02-2024 History of Present illness Narrative* Liz Mary, CECILIA - 04/06/2024 4:09 PM EDT TRANSITION CARE MANAGEMENT (TCM) FOLLOW-UP NOTE Provider Action/FYI [employer] Value Based Non-Response Follow up Unable to reach patient, left a message. Discharge Network Status: In-Network Discharge Summary: Pt discharged from [facility] on 03/24/24. Admitted for: Inadequate nutrition Boot Trimmer plan for next outreach: No further follow up needed at this time ONESIMO Education Ordered -: No Liz Parra RN April 06, 2024 4:10 PM documented in this encounterFostoria City Hospital06-28-2024 Instructions* Patient Instructions* Estefnay Cash PA-C - 04/02/2024 3:22 PM EDT PATIENT PREOPERATIVE INSTRUCTIONS [facility] [place] [facility] Scheduling Office: [phone] --[address] [place] [place] [address]. Please read below carefully for your personalized instructions. Arrival Time for Surgery: - To obtain your arrival time for surgery, call your physician's office the day before your surgery. - If your surgery is scheduled for Friday, call the Friday before. Your surgeon s ferryboat captain will tell you what time to call the office. - If you have not reached the departmental ferryboat captain by 5 P.M., call [phone] after 5 P.M. the day before your surgery. Dietary Restrictions: - No solid food after midnight. - You may have 12 ounces of clear liquids (water, clear juices such as apple juice or gatorade, carbonated beverages, clear tea, black coffee, jello) until 2 hours before scheduled arrival at facility. - Follow bowel prep instructions: clear liquids need to be stopped 2 hours prior to schedule arrival at facility Medications: Unless instructed differently below, stay on all of your medications until your surgery. If you start any new medications after today's visit, please contact your surgeon. Pre-Surgery Med Instructions Medication Instructions ondansetron orally disintegrating (ZOFRAN ODT) 4 mg disintegrating tablet Do not take the day of surgery metroNIDAZOLE (FLAGYL) 500 mg tablet Take as prescribed. neomycin 500 mg tablet Take as prescribed. dicyclomine (BENTYL) 10 mg capsule Do not take the day of surgery Simethicone (GAS-X) 125 mg cap Do not take the day of surgery alendronate (FOSAMAX) 70 mg tablet Do not take the day of surgery Loperamide HCl (ANTI-DIARRHEAL) 2 mg tab Do not take the day of surgery Blood Thinning Medications: - Stop NSAIDS (Ibuprofen, Advil, Aleve, Motrin, Celebrex, Mobic, etc.) 7 days before surgery, as directed by your surgeon. - Stop Aspirin 7 days before surgery, as directed by your surgeon. - Stop Vitamin E, ALL multi-vitamins, herbals and dietary supplements 7 days before surgery. - You may take Tylenol (Acetaminophen) or any of your pain medications that do not contain aspirin or NSAIDS as needed. Important Reminders: - If you use CPAP/BIPAP, bring the machine with you to the surgery center. - If you are prescribed inhalers for breathing, continue using them. - Candy, mints, and tobacco products are NOT permitted the morning of surgery. - Hearing aids, dentures and glasses may be worn the morning of surgery. - NO jewelry, body piercings, makeup, hairpins or contacts are to be worn the day of surgery. If you develop symptoms such as a fever, cold, or flu, or have other changes to your health within TWO DAYS of scheduled surgery or the morning of surgery, please contact the surgery center above. Personal Belongings: -Please have photo ID and insurance cards. -If you do not have a copy of advance directives on file with us, please bring a copy with you on the day of surgery. - Leave ALL valuables and money at home or with family members. Please be aware that emergency situations arise, which may delay or change your surgical time. If this happens, we will notify you as soon as possible and regret any inconvenience. If you already have an Advance Directive, please fax a copy to [phone] or email to for it to be added to your chart. If you do not have an Advance Directive, you can find the appropriate form and more information at [email or web address]. We recommend that youcomplete the Advance Directive form found on the website and bring it with you the day of your surgery. It can be witnessed and scanned into your chart that day. documented in this encounterFostoria City Hospital06-28-2024 History and physical note * Estefany Cash PA-C - 04/02/2024 3:10 PM EDT HISTORY AND PHYSICAL EXAMINATION SERVICE DATE: 04/02/2024 SERVICE TIME: 3:14 PM PRIMARY CARE PHYSICIAN: Romel Michelle MD Assessment Patient has the following medical conditions which may affect haley-operative course: Irritable bowel syndrome with diarrhea Assessment: Stable, manages sx with Bentyl and loperamide. Other ascites Assessment: Noted on CT A/P 03/10/24. [place] Activity Status Index: METS: Climb a flight of stairs or walk up a hill (5.50 METs) DASI Score: 5.5 Patient denies any chest pain or undue shortness of breath with the above physical activity. Clinical Frailty Scale: 2. Well STOP-Bang Score: Patient over 50 years old Denies snoring loudly Denies feeling tired, fatigued, or sleepy during the daytime Has not been observed to stop breathing or choking/gasping during sleep Denies having high blood pressure BMI less than or equal to 35 kg/m^2 Does not have a large neck Non-male patient STOP-Bang Score: 1 ANESTHESIA FINDINGS: Intubation History: No abnormal airway history. No prior intubation Significant Anesthesia Considerations: none Airway History: No abnormal airway history No prior intubation I - PHYSICAL EVALUATION AIRWAY Patient intubated: No. Tracheostomy tube not present Mallampati: III. TM distance: >3 FB. Neck ROM: full ROM without neurological symptoms. Mouth opening: non-adequate. Short neck: no. Thick neck: no Lip Bite Test: I Microretrognathia/Micronagthia/Recessed Chin: No DENTAL Dental findings: teeth intact. Additional comments: +Caps/crowns. II - ANESTHESIA PLAN Anesthetic Plan: other Anesthetic plan additional comments: *PACC/TCI - anesthesia choice. Beta Philip Monitoring Plan Post Procedure Analgesic Plan Prepared for Surgery: optimally prepared for surgery. CONSULTS: Patient does not require consults for optimization at this time Planned Anesthetic: other anesthesia choice The Following Tests/Procedures Have Been Initiated: Orders placed by surgeon/surgical service in [facility]. Orders Placed This Encounter ECG (IN OFFICE) REASON FOR VISIT: Sal Bautista is a 73 year old female who is scheduled for Procedure(s): HYSTERECTOMY ABDOMINAL TOTAL WITH SALPINGO-OOPHORECTOMY BILATERAL (N/A) at the request of Fredis Gay MD for consultation. My final recommendation will be communicated back to the requesting physician by way of shared medical record or letter. Subjective The patient has the following: ACTIVE PROBLEM LIST Osteopenia Irritable Bowel Syndrome With Diarrhea Generalized Abdominal Or Pelvic Swelling Or Mass Or Lump Inadequate Nutrition Other Ascites Severe Protein-Calorie Malnutrition (Hcc) COVID-19 Immunization Status Overdue - Covid-19 Vaccine ( season) Overdue since 06/06/2023 07/15/2023 Postponed until 07/19/2023 by Romel Michelle MD (Declined at this time - Getting at pharmacy) 08/07/2022 Imm Admin: COVID-19 vaccine, age 12+ yr, bivalent (MODERNA) 06/28/2022 Postponed until 06/28/2023 by Tyesha Gibson MA (Declined at this time) Only the first 3 history entries have been loaded, but more history exists. CHIEF COMPLAINT: pelvic mass HPI: Sal Bautista is a 73 year old female presenting for pre-anesthesia consultation with her . Pt has history of abdominal bloating. CT A/P was done and revealed large complex cystic mass in the left pelvis with adjacent soft tissue component extending into the right pelvis concerning for ovarian neoplasm, ascites and changes of carcinomatosis also present in the abdomen and pelvis. Above procedure recommended to manage findings. Procedure scheduled on 04/09/2024 at . REVIEW OF SYSTEMS: General: Negative for: fever. Neurological: No history of TIA's, stroke, STORE HOST tumor, impaired sensorium, hemiplegia, paraplegia orquadraplegia. No neurological symptoms or problems. Respiratory: No history of current cough or dyspnea, or pneumonia in the past 6 weeks. No history of respiratory/pulmonary symptoms or problems. Cardiovascular: No history of HTN requiring medication, no history of angina, CHF, OR, cardiac surgery or stents. Denies rest pain, gangrene or revascularization/amputation for PVD. No history of cardiovascular symptoms or problems. GI: Positive for: ascites, heartburn (recently started within the past 2 days) and irritable bowel syndrome Negative for: GERD, hepatitis, inflammatory bowel disease, liver disease and ETOH >2 drinks/day. : No history of dysuria, frequency or incontinence, stones or chronic kidney disease. No difficulty urinating, nocturia > 1 time per night or hematuria. PCU RN: See HPI. Endocrine: No history of diabetes. Has not taken steroids within the past 30 days. No history of endocrinological symptoms or problems. Hematology: No history of bleeding or clotting disorder. Patient is not taking anti-coagulation or platelet medications. No history of hematological symptoms or problems. Oncology: No history of CA metastasis, chemo within 30 days, or radiotherapy within 90 days. No history of oncological symptoms or problems. Psych: No history of psychiatric symptoms or problems. Musculoskeletal: +Osteopenia Positive for: back pain. Negative for: swelling. Skin: Negative for lesions, rash and itching. 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 left sterotactic COLONOSCOPY FLX DX W/COLLJ SPEC WHEN PFRMD 03/09/2012 Colonoscopy COLONOSCOPY FLX DX W/COLLJ SPEC WHEN PFRMD 11/22/15 Colonoscopy ([facility]) ESOPHAGOGASTRODUODENOSCOPY TRANSORAL DIAGNOSTIC 11/22/15 EGD ([facility]) FAMILY HISTORY Problem Relation Age of Onset None Mother None Father Breast Cancer Maternal Aunt Anesthesia Problems No Family History Social History Tobacco Use Smoking status: Never Smokeless tobacco: Never Substance Use Topics Alcohol use: Yes Comment: social Drug use: No Prior to Admission medications as of 04/02/24 1550 Medication Sig Last Dose Taking ondansetron orally disintegrating (ZOFRAN ODT) 4 mg disintegrating tablet Take 1 tablet by mouth every 6 hours as needed for nausea/vomiting. Taking Yes metroNIDAZOLE (FLAGYL) 500 mg tablet On the day before surgery take 1 tablet at 1 pm, 1 tablet at 2pm, and 2 tablets at 11 pm Taking Yes neomycin 500 mg tablet On the day before surgery take two tablets at 1pm, 2pm and at 11pm Taking Yes nutritional supplement ([email or web address] STANDARD 1.4) 0.06 G - 1.4 Kcal/mL oral liquid Take 325 mL by mouth three times a day. Taking Yes dicyclomine (BENTYL) 10 mg capsule Take 1 or 2 before meals, as needed. Taking Yes Simethicone (GAS-X) 125 mg cap Take 1 capsule by mouth four times a day as needed. (will verify thedose) Taking Yes Cholecalciferol, Vitamin D3, 50 mcg (2,000 unit) cap Take 1 capsule by mouth once daily. Taking Yes Loperamide HCl (ANTI-DIARRHEAL) 2 mg tab Take 1 tablet by mouth as needed. Taking Yes Bisacodyl (DULCOLAX) 5 mg tab Take 2 tabs at 2pm the day before surgery polyethylene glycol 3350 (MIRALAX) 17 gram/dose powder Bowel prep starting the day before surgery-refer to printed instructions provided to you. Mix the whole bottle of Miralax and the Gatorade (64 oz) into a pitcher and stir until dissolved. Drink an 8 ounce glass every 10-15 minutes until the solution is gone. alendronate (FOSAMAX) 70 mg tablet Take 1 tablet by mouth one time a week. Take with a full glass of water, on an empty stomach; do NOT lie down for 30minutes. Methylcellulose, Laxative, 500 mg tab Take 1 tablet by mouth once daily. Patient not taking: Reported on 02/24/2024 No medication comments found. ALLERGIES No Known Allergies Objective PHYSICAL EXAM: General: alert and oriented and healthy appearance. Pertinent negatives noted - not distressed. Skin: normal color, no rash or lesions. HEENT: EOM intact and pupils equal round. Pertinent negatives noted - no carotid bruit. Cardiovascular: regular rate and rhythm, normal S1 and S2, no rub, murmurs, or gallop. Pulse characterized as regular.No radial pulse abnormalities. Respiratory: normal breath sounds, no wheezes or crackles. Abdomen: Pertinent negatives noted - not distended. Extremities: no deformity, no edema or tenderness, no joint swelling or clubbing. Neurological: normal cognition and motor skills. Gait normal. No weakness or sensory deficit. PAIN ASSESSMENT: VITALS: BP 129/74 Pulse 91 Temp (Src) 97.8 (Temporal Artery) Resp 12 Ht 5' 5 (1.65m) Wt 123 lb 10.9 oz (56.1kg) SpO2 100% BMI 20.58 kg/(m^2). Diagnostic tests reviewed for today's visit: Lab Value Units Date High Low HB 11.2 g/dL 03/24/2024 15.5 11.5 HCT 35.3 % 03/24/2024 46.0 36.0 WBC 4.80 k/uL 03/24/2024 11.00 3.70 PLT 163 k/uL 03/24/2024 400 150 NA 138 mmol/L 03/24/2024 144 136 K 4.5 mmol/L 03/24/2024 5.1 3.7 GLUC 99 mg/dL 03/24/2024 99 74 BUN 12 mg/dL 03/24/2024 21 7 CREAT 0.66 mg/dL 03/24/2024 0.96 0.58 PTSEC 11.0 sec 03/22/2024 13.0 9.7 INR 1.0 no uni* 03/22/2024 1.3 0.9 APTT 23.6 sec 03/22/2024 32.4 23.0 ALT 13 U/L 03/24/2024 38 7 AST 18 U/L 03/24/2024 35 13 TBILI <0.2 mg/dL 03/24/2024 1.3 0.2 TSH No results within date range. Lab Value Units Date High Low HCGQT No results within date range. UHCG No results within date range. HCG, BODY* No results within date range. Lab Value Units Date High Low ABORHD No results within date range. ABSCREEN No results within date range. No results found for: HBA1C ECG 04/02/2024 Diagnosis: NORMAL SINUS RHYTHM POSSIBLE LEFT ATRIAL ENLARGEMENT BORDERLINE ECG Confirmed by TOY OCASIO, [facility] ([id number]) on 04/02/2024 4:36:[address] chest 03/16/24 IMPRESSION: Few small sub-6 mm indeterminate lung nodules. Continued attention on follow-up is suggested given history of pelvic mass. No thoracic lymph node enlargement. Focal thickening along the right anterior pleura and a cluster of subcentimeter right cardiophrenic lymph nodes. Continued attention on follow-up is suggested. Instructions Given to Patient: Instructions located in the after visit summary. Patient given verbal and written preop instructions and voices comprehension and compliance. SIGNATURE: Estefany Cash PA-C PATIENT NAME: Sal Bautista DATE: 04/02/2024 TIME: 3:14 PM PAGER/CONTACT #: [facility]06-28-2024 History and physical note* Estefany Cash PA-C - 04/02/2024 3:10 PM EDT HISTORY AND PHYSICAL EXAMINATION SERVICE DATE: 04/02/2024 SERVICE TIME: 3:14 PM PRIMARY CARE PHYSICIAN: Romel Michelle MD Assessment Patient has the following medical conditions which may affect haley-operative course: Irritable bowel syndrome with diarrhea Assessment: Stable, manages sx with Bentyl and loperamide. Other ascites Assessment: Noted on CT A/P 03/10/24. [place] Activity Status Index: METS: Climb a flight of stairs or walk up a hill (5.50 METs) DASI Score: 5.5 Patient denies any chest pain or undue shortness of breath with the above physical activity. Clinical Frailty Scale: 2. Well STOP-Bang Score: Patient over 50 years old Denies snoring loudly Denies feeling tired, fatigued, or sleepy during the daytime Has not been observed to stop breathing or choking/gasping during sleep Denies having high blood pressure BMI less than or equal to 35 kg/m^2 Does not have a large neck Non-male patient STOP-Bang Score: 1 ANESTHESIA FINDINGS: Intubation History: No abnormal airway history. No prior intubation Significant Anesthesia Considerations: none Airway History: No abnormal airway history No prior intubation I - PHYSICAL EVALUATION AIRWAY Patient intubated: No. Tracheostomy tube not present Mallampati: III. TM distance: >3 FB. Neck ROM: full ROM without neurological symptoms. Mouth opening: non-adequate. Short neck: no. Thick neck: no Lip Bite Test: I Microretrognathia/Micronagthia/Recessed Chin: No DENTAL Dental findings: teeth intact. Additional comments: +Caps/crowns. II - ANESTHESIA PLAN Anesthetic Plan: other Anesthetic plan additional comments: *PACC/TCI - anesthesia choice. Beta Philip Monitoring Plan Post Procedure Analgesic Plan Prepared for Surgery: optimally prepared for surgery. CONSULTS: Patient does not require consults for optimization at this time Planned Anesthetic: other anesthesia choice The Following Tests/Procedures Have Been Initiated: Orders placed by surgeon/surgical service in [facility]. Orders Placed This Encounter ECG (IN OFFICE) REASON FOR VISIT: Sal Bautista is a 73 year old female who is scheduled for Procedure(s): HYSTERECTOMY ABDOMINAL TOTAL WITH SALPINGO-OOPHORECTOMY BILATERAL (N/A) at the request of Fredis Gay MD for consultation. My final recommendation will be communicated back to the requesting physician by way of shared medical record or letter. Subjective The patient has the following: ACTIVE PROBLEM LIST Osteopenia Irritable Bowel Syndrome With Diarrhea Generalized Abdominal Or Pelvic Swelling Or Mass Or Lump Inadequate Nutrition Other Ascites Severe Protein-Calorie Malnutrition (Hcc) COVID-19 Immunization Status Overdue - Covid-19 Vaccine ( season) Overdue since 06/06/2023 07/15/2023 Postponed until 07/19/2023 by Romel Michelle MD (Declined at this time - Getting at pharmacy) 08/07/2022 Imm Admin: COVID-19 vaccine, age 12+ yr, bivalent (MODERNA) 06/28/2022 Postponed until 06/28/2023 by Tyesha Gibson MA (Declined at this time) Only the first 3 history entries have been loaded, but more history exists. CHIEF COMPLAINT: pelvic mass HPI: Sal Bautista is a 73 year old female presenting for pre-anesthesia consultation with her . Pt has history of abdominal bloating. CT A/P was done and revealed large complex cystic mass in the left pelvis with adjacent soft tissue component extending into the right pelvis concerning for ovarian neoplasm, ascites and changes of carcinomatosis also present in the abdomen and pelvis. Above procedure recommended to manage findings. Procedure scheduled on 04/09/2024 at . REVIEW OF SYSTEMS: General: Negative for: fever. Neurological: No history of TIA's, stroke, STORE HOST tumor, impaired sensorium, hemiplegia, paraplegia orquadraplegia. No neurological symptoms or problems. Respiratory: No history of current cough or dyspnea, or pneumonia in the past 6 weeks. No history of respiratory/pulmonary symptoms or problems. Cardiovascular: No history of HTN requiring medication, no history of angina, CHF, OR, cardiac surgery or stents. Denies rest pain, gangrene or revascularization/amputation for PVD. No history of cardiovascular symptoms or problems. GI: Positive for: ascites, heartburn (recently started within the past 2 days) and irritable bowel syndrome Negative for: GERD, hepatitis, inflammatory bowel disease, liver disease and ETOH >2 drinks/day. : No history of dysuria, frequency or incontinence, stones or chronic kidney disease. No difficulty urinating, nocturia > 1 time per night or hematuria. PCU RN: See HPI. Endocrine: No history of diabetes. Has not taken steroids within the past 30 days. No history of endocrinological symptoms or problems. Hematology: No history of bleeding or clotting disorder. Patient is not taking anti-coagulation or platelet medications. No history of hematological symptoms or problems. Oncology: No history of CA metastasis, chemo within 30 days, or radiotherapy within 90 days. No history of oncological symptoms or problems. Psych: No history of psychiatric symptoms or problems. Musculoskeletal: +Osteopenia Positive for: back pain. Negative for: swelling. Skin: Negative for lesions, rash and itching. 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 left sterotactic COLONOSCOPY FLX DX W/COLLJ SPEC WHEN PFRMD 03/09/2012 Colonoscopy COLONOSCOPY FLX DX W/COLLJ SPEC WHEN PFRMD 11/22/15 Colonoscopy ([facility]) ESOPHAGOGASTRODUODENOSCOPY TRANSORAL DIAGNOSTIC 11/22/15 EGD ([facility]) FAMILY HISTORY Problem Relation Age of Onset None Mother None Father Breast Cancer Maternal Aunt Anesthesia Problems No Family History Social History Tobacco Use Smoking status: Never Smokeless tobacco: Never Substance Use Topics Alcohol use: Yes Comment: social Drug use: No Prior to Admission medications as of 04/02/24 1550 Medication Sig Last Dose Taking ondansetron orally disintegrating (ZOFRAN ODT) 4 mg disintegrating tablet Take 1 tablet by mouth every 6 hours as needed for nausea/vomiting. Taking Yes metroNIDAZOLE (FLAGYL) 500 mg tablet On the day before surgery take 1 tablet at 1 pm, 1 tablet at 2pm, and 2 tablets at 11 pm Taking Yes neomycin 500 mg tablet On the day before surgery take two tablets at 1pm, 2pm and at 11pm Taking Yes nutritional supplement ([email or web address] STANDARD 1.4) 0.06 G - 1.4 Kcal/mL oral liquid Take 325 mL by mouth three times a day. Taking Yes dicyclomine (BENTYL) 10 mg capsule Take 1 or 2 before meals, as needed. Taking Yes Simethicone (GAS-X) 125 mg cap Take 1 capsule by mouth four times a day as needed. (will verify thedose) Taking Yes Cholecalciferol, Vitamin D3, 50 mcg (2,000 unit) cap Take 1 capsule by mouth once daily. Taking Yes Loperamide HCl (ANTI-DIARRHEAL) 2 mg tab Take 1 tablet by mouth as needed. Taking Yes Bisacodyl (DULCOLAX) 5 mg tab Take 2 tabs at 2pm the day before surgery polyethylene glycol 3350 (MIRALAX) 17 gram/dose powder Bowel prep starting the day before surgery-refer to printed instructions provided to you. Mix the whole bottle of Miralax and the Gatorade (64 oz) into a pitcher and stir until dissolved. Drink an 8 ounce glass every 10-15 minutes until the solution is gone. alendronate (FOSAMAX) 70 mg tablet Take 1 tablet by mouth one time a week. Take with a full glass of water, on an empty stomach; do NOT lie down for 30minutes. Methylcellulose, Laxative, 500 mg tab Take 1 tablet by mouth once daily. Patient not taking: Reported on 02/24/2024 No medication comments found. ALLERGIES No Known Allergies Objective PHYSICAL EXAM: General: alert and oriented and healthy appearance. Pertinent negatives noted - not distressed. Skin: normal color, no rash or lesions. HEENT: EOM intact and pupils equal round. Pertinent negatives noted - no carotid bruit. Cardiovascular: regular rate and rhythm, normal S1 and S2, no rub, murmurs, or gallop. Pulse characterized as regular.No radial pulse abnormalities. Respiratory: normal breath sounds, no wheezes or crackles. Abdomen: Pertinent negatives noted - not distended. Extremities: no deformity, no edema or tenderness, no joint swelling or clubbing. Neurological: normal cognition and motor skills. Gait normal. No weakness or sensory deficit. PAIN ASSESSMENT: VITALS: BP 129/74 Pulse 91 Temp (Src) 97.8 (Temporal Artery) Resp 12 Ht 5' 5 (1.65m) Wt 123 lb 10.9 oz (56.1kg) SpO2 100% BMI 20.58 kg/(m^2). Diagnostic tests reviewed for today's visit: Lab Value Units Date High Low HB 11.2 g/dL 03/24/2024 15.5 11.5 HCT 35.3 % 03/24/2024 46.0 36.0 WBC 4.80 k/uL 03/24/2024 11.00 3.70 PLT 163 k/uL 03/24/2024 400 150 NA 138 mmol/L 03/24/2024 144 136 K 4.5 mmol/L 03/24/2024 5.1 3.7 GLUC 99 mg/dL 03/24/2024 99 74 BUN 12 mg/dL 03/24/2024 21 7 CREAT 0.66 mg/dL 03/24/2024 0.96 0.58 PTSEC 11.0 sec 03/22/2024 13.0 9.7 INR 1.0 no uni* 03/22/2024 1.3 0.9 APTT 23.6 sec 03/22/2024 32.4 23.0 ALT 13 U/L 03/24/2024 38 7 AST 18 U/L 03/24/2024 35 13 TBILI <0.2 mg/dL 03/24/2024 1.3 0.2 TSH No results within date range. Lab Value Units Date High Low HCGQT No results within date range. UHCG No results within date range. HCG, BODY* No results within date range. Lab Value Units Date High Low ABORHD No results within date range. ABSCREEN No results within date range. No results found for: HBA1C ECG 04/02/2024 Diagnosis: NORMAL SINUS RHYTHM POSSIBLE LEFT ATRIAL ENLARGEMENT BORDERLINE ECG Confirmed by TOY OCASIO, [facility] ([id number]) on 04/02/2024 4:36:[address] chest 03/16/24 IMPRESSION: Few small sub-6 mm indeterminate lung nodules. Continued attention on follow-up is suggested given history of pelvic mass. No thoracic lymph node enlargement. Focal thickening along the right anterior pleura and a cluster of subcentimeter right cardiophrenic lymph nodes. Continued attention on follow-up is suggested. Instructions Given to Patient: Instructions located in the after visit summary. Patient given verbal and written preop instructions and voices comprehension and compliance. SIGNATURE: Estefany Cash PA-C PATIENT NAME: Sal Bautista DATE: 04/02/2024 TIME: 3:14 PM PAGER/CONTACT #: [facility] Telephone encounter Note * Telephone Encounter - Johana Perrin RN - 04/01/2024 10:48 AM EDT Call placed to patient and notified. Johana Perrin RN [facility]06-27-2024 Miscellaneous Notes* Telephone Encounter - Johana Perrin RN - 04/01/2024 10:48 AM EDT Call placed to patient and notified. Johana Perrin RN * Telephone Encounter - Cathy Coles APRN.CNP - 04/01/2024 10:26 AM EDT Short term zofran script sent. * Telephone Encounter - Johana Perrin RN - 04/01/2024 9:57 AM EDT Patient calls to ask if provider would send in a prescription to [facility] for something for nausea. Patient reports nausea started last night. No vomiting. She reports abdominal bloating and retaining fluids in the abdomen from pelvic mass as previously noted. Drinking water ok. Belches at times with no relief. Scheduled to have hysterectomy on 04/09/2024 and requesting something for nausea to get her through until the surgery. Please review and advise, Johana Perrin RN documented in this encounterF[facility]06[facility] Telephone encounter Note * Telephone Encounter - Cathy Coles APRN.CNP - 04/01/2024 10:26 AM EDT Short term zofran script sent. [facility]06-27-2024 Telephone encounter Note* Telephone Encounter - Johana Perrin RN - 04/01/2024 9:57 AM EDT Patient calls to ask if provider would send in a prescription to [facility] for something for nausea. Patient reports nausea started last night. No vomiting. She reports abdominal bloating and retaining fluids in the abdomen from pelvic mass as previously noted. Drinking water ok. Belches at times with no relief. Scheduled to have hysterectomy on 04/09/2024 and requesting something for nausea to get her through until the surgery. Please review and advise, Johana Perrin RN [facility]06-26-2024 History of Present illness Narrative* Xiao Owens RN - 03/31/2024 1:47 PM EDT TRANSITION CARE MANAGEMENT (TCM) FOLLOW-UP NOTE Provider Action/FYI TCM ([employer] Value Based non response follow up) PCU RN office visit with Dr. Fredis Buckner completed on 03/29/24 Pt. Denies new or worsening symptoms or concerns since OV with Dr. Buckner. Pt. Is scheduled for surgery 04/09, expresses disappointment as she was hoping surgery would occur this Friday. Pt. Denies medication questions/refills. Pt. Confirms receiving [employer] text, encouraged pt. To complete text is received. Patient identified by name and date of : YES Spoke to patient Discharge Network Status: In-Network Discharge Summary: Pt discharged from [facility] on 03/24/24. Admitted for: Inadequate nutrition Boot Trimmer plan for next outreach: No further follow up needed at this time ONESIMO Education Ordered -: No Xiao Owens RN March 31, 2024 1:47 PM documented in this encounterFostoria [facility]06[facility] History of Present illness Narrative* Fredis Buckner MD - 03/29/2024 3:40 PM EDT Gynecologic Oncology [facility] Follow up Re: Sal Bautista [facility]#: [id number] Date of Service: 03/29/2024 Dr. Romel Michelle Dear Romel: Sal presents for a follow-up visit for pelvic mass. Briefly, she is a 73 year old female, gravida2, para 2 with a past medical history of IBS and osteoporosis who was referred for the evaluation of pelvic mass. 02/24/2024 patient presented to PCP with c/o abdominal distention and bloating. History of IBS causing both diarrhea and constipation. TREATMENT HISTORY: 03/10/2024 CT Abd/Pel IMPRESSION: Large complex cystic mass in the left pelvis with adjacent soft tissue component extending into the right pelvis concerning for ovarian neoplasm. Ascites and changes of carcinomatosis also present in the abdomen and pelvis. 03/15/2024 Consult: 73yo female presents for management of pelvic mass, peritoneal thickening, and moderate volume ascites. No tumor markers were drawn. Patient with history of IBS. Her last colonoscopy from November 2015 was normal. She has been losing weight since December this year. Reports difficulty with eating which is not unusual for IBS. Family history of breast cancer (maternal aunt). I reviewed her CT scan from 03/10/2024 showing a large pelvic mass. There were irregularities seen along the diaphragm reflecting fluid and solid masses. There were ascites and findings suggesting carcinomatosis. I discussed my suspicion for malignancy and we will obtain tumor markers (CA125, CA19-9,and CEA) for further work up. We typically treat gynecologic cancers with either primary surgery and adjuvant chemotherapy or neoadjuvant chemotherapy and interval debulking surgery. Patient is 73 year old but she has good performance status and has no significant medical problems. I think she willbe a good candidate for primary debulking surgery if her prealbumin is wnl. If patient can be optimally cytoreduced, her survival could be improved. We will obtain prealbumin to evaluate her nutritional status and a chest CT to rule out intrathoracic disease. If her prealbumin is acceptable, will plan for primary debulking. Discussed the duration of hospital stay of 3 days after surgery with no bowel resection and approximately 7 days with bowel resection. If her CA125 is normal and her other tumor markers are elevated, may plan for IR biopsy to determine primary. If her prealbumin is very low, this could increase operative morbidity from primary surgery so we will pursue neoadjuvant chemotherapy while bringing her nutritional status up to get ready for interval debulking. I explained that chemotherapy can help reduce the volume of her ascites at which point she will feel less distendedand be able to eat more. Consents obtained today for both primary surgery and neoadjuvant chemotherapy and we will decide which approach based on her lab and imaging results. Latest Ref Rng 03/15/2024 Prealbumin 17 - 36 mg/dL 12 (L) Latest Ref Rng 03/15/2024 CEA <=2.9 ng/mL 0.6 CA 125 <39 U/mL 305 (H) CA19-9 <36.0 U/mL 11.0 03/16/2024 Telephone encounter with Aga Meredith APRN.PHOTOGRAPHER LITHOGRAPHIC Called and spoke with patient~ per Dr. Buckner, he would like to cancel surgery tomorrow and admit herfor paracentesis and placement of feeding tube for poor nutritional status. Called admitting to request bad and advised patient that they would call her when bed becomes available. Updated inpatient team. Updated tugboat mate that her case needs to be cancelled tomorrow. 03/17 - 03/24/2024 [facility] [place] admission - Paracentesis and nutritional optimization PROCEDURES DURING HOSPITALIZATION: Corpak placement, EGD-guided Corpak placement HOSPITAL COURSE: Sal Bautista is a 73 year old female with a hx of IBS, osteopenia, and large pelvic mass who presented for nutritional optimization and paracentesis prior to surgery. She underwent a paracentesis on 03/17, with cytology notable for malignant cells consistent with high-nuclear grade adenocarcinoma. She underwent a Corpak placement for nutritional optimization, however it was noted to be folded back on itself on multiple KUBs. She then underwent an EGD-guided Corpak placement, which subsequently became clogged. Treatment with clog zapper and viokace was not effective and therefore decision was made to remove the corpak and discharge home without outpatient follow up. 03/17/2024 Paracentesis FINAL DIAGNOSIS A - Ascites Fluid, Sterile Fluid/Body Fluid Positive for malignant cells. High-nuclear grade adenocarcinoma. See comment. Diagnosis Comment Immunohistochemical stains show that the malignant cells are positive for Cambridge-8, Claudin-4 and negative for D2-40, ER. WT-1 shows rare, weak staining. P53 shows weak to moderate nuclear staining. Thestaining pattern of the p53 is suboptimal and should be repeated in the surgical specimen. The immunohistochemical staining pattern is consistent with a mullerian origin. Selected slides were reviewed in consultation with Dr. Munoz, who concurs. HEALTH MAINTENANCE: Last pap smear: 02/06/2017 - Negative Last mammogram: 07/07/2023 - Negative Last colonoscopy: 11/22/2015 normal SUBJECTIVE/INTERVAL HISTORY: Patient is feeling well and denies shortness of breath, nausea, vomiting, constipation, problems urinating, unexplained weight loss, or vaginal bleeding. OBJECTIVE: BP 127/79 Pulse 80 Temp 36.7 C (98.1 F) (Oral) Resp 15 Wt 55.8 kg (123 lb) SpO2 100% BMI 20.47 kg/m Female in no acute distress. IMPRESSION/PLAN: 03/29/2024 Dx: pelvic mass Patient presents with her for hospital follow-up visit. She was recently hospitalized for nutritional optimization and paracentesis prior to surgery. Underwent Corpak placement however it wasnoted to be folded back on itself on multiple KUBs. She then underwent an EGD-guided Corpak placement, which subsequently became clogged. Treatment with clog zapper and viokace was not effective and therefore decision was made to remove the corpak and discharge home with outpatient follow up. I reviewed the cytologic study of her paracentesis. The immunohistochemical staining pattern is consistent with a Mullerian origin of high-nuclear grade adenocarcinoma although p53 staining pattern was inconclusive which could be due to insufficient cells and should be repeated in the surgical specimen. Reviewed low grade serous carcinoma (5% of all cases), high grade serous carcinoma (remaining 95%), different oncogenic pathways and only 4% of patients with low grade serous carcinoma achieved complete response when treated with chemotherapy. In this patient population, primary cytoreductive surgery is typically planned. The patient has good performance status for her age and no significant medical problems. If she canbe optimally cytoreduced, her survival could be improved (average OS ~ high 70 months and PFS ~ high 20 months). We will repeat prealbumin today to reassess her nutritional status. She has been drinking 2.5 protein boost per day. Explained the importance of nutritional optimization prior to surgeryto lower operative morbidity and be able to achieve optimal recovery. If her repeat prealbumin is acceptable, will plan for primary debulking. Otherwise, may plan for TPN for one week to bring up hernutrition and plan for surgery vs initiation of neoadjuvant chemotherapy to shrink her tumor volumewhile bringing her nutritional status up to get ready for interval debulking. Patient and expressed understanding and agreement with the plan. ATTESTATION: By signing my name below, I, Hayley Mcgowan, attest that this documentation has been prepared under the direction and in the presence of Fredis Buckner MD. Electronically signed: Narciso Good, March 29, 2024 3:58 PM Provider Attestation: I, Fredis Buckner MD, personally performed the services described in this documentation. All medicalrecord entries made by the karlieibe were at my direction and in my presence. I have reviewed the chart and discharge instructions (if applicable) and agree that the record reflects my personal performance and is accurate and complete. Fredis Buckner MD March 30, 2024 7:39 AM I have confirmed and edited as necessary, the history of the present illness (HPI). Interval changes in the history of present illness are noted. I have confirmed and edited as necessary, the PFSH and ROS obtained by others. I saw the patient and personally participated in the saenz components and agree with the documented findings and plan. Sincerely, Fredis Buckner M.D. Reviewed and corrected by Fredis Buckner M.D. The previous note written by Dr. Buckner dated 03/15/2024 was copied forward and the necessary changes were made. Medical Decision Making: Problems: Moderate: New problem with uncertain prognosis Data: Unique test result(s) reviewed: 3+ Unique test(s) ordered: 1 Risk: High: Decision on elective major surgery w/ risk factors Medical Decision Making Level: 4 - Moderate [facility] Telephone encounter Note * Telephone Encounter - Carey Elias APRN.CNP - 03/26/2024 6:11 PM EDT Reviewed chart. Patient will need appt to come in to see on 03/29/2024 in afternoon. Can you please see if she is available to come in @ 340pm. Thanks [facility] Work Phone: 1(129) 231-517406-21-2024 Miscellaneous Notes* Telephone Encounter - Carey Elias APRN.CNP - 03/26/2024 6:11 PM EDT Reviewed chart. Patient will need appt to come in to see on 03/29/2024 in afternoon. Can you please see if she is available to come in @ 340pm. Thanks * Telephone Encounter - Bee Anglin RN - 03/26/2024 2:14 PM EDT Patient was discharged form [facility] after 03/17-03/24/24 admission. Did not go home with tube feeding. Patient calling to ask what is the follow up plan - none noted in discharge summary. She currently has appointment with Dr Buckner on 04/05/24 for post op staple removal - surgery never took place. Recommended patient maintain that appointment for discussion, unless she hears from this office otherwise. She is maintaining a nutritional log and drinking supplements Will update medical team. documented in this encounterFost[facility]06-21-[facility]24 History of Present illness Narrative* Deloris Martinez RN - 03/26/2024 3:37 PM EDT Images from the original note were not included. TRANSITIONAL CARE MANAGEMENT (TCM) COMMUNITY MONITORING PROGRAM Provider Action/FYI: Bria Waddell [facility] Outreach #1 - Discharged: March 24, 2024 - Patient has not clicked url after 3 attempts SUMMARY: Discharge Network Status: In-Network Discharge Pt discharged from [facility] on 03/24/24. Admitted for: Inadequate nutrition Friday April 05, 2024 2:50 PM Post Op with Fredis Buckner MD Gynecology Contact made with patient: NO unable to reach pt. Left Outreach ended documented in this encounterFost[facility]06-21-[facility] Telephone encounter Note * Telephone Encounter - Bee Anglin RN - 03/26/2024 2:14 PM EDT Patient was discharged form [facility] after 03/17-03/24/24 admission. Did not go home with tube feeding. Patient calling to ask what is the follow up plan - none noted in discharge summary. She currently has appointment with Dr Buckner on 04/05/24 for post op staple removal - surgery never took place. Recommended patient maintain that appointment for discussion, unless she hears from this office otherwise. She is maintaining a nutritional log and drinking supplements Will update medical team. [facility] Telephone encounter Note* Telephone Encounter - Romel Michelle MD - 03/24/2024 1:14 PM EDT Agree with verbal okay as noted below [facility]-19-[facility] Miscellaneous Notes* Telephone Encounter - Romel Michelle MD - 03/24/2024 1:14 PM EDT Agree with verbal okay as noted below * Telephone Encounter - Matthew Woodard RN - 03/24/2024 12:41 PM EDT Gladys Nurse with [facility] calling to see if provider will follow for [facility] home care. Since provider already agreed to follow and sign orders for [facility], verbal order giventhat provider will follow. Msg sent to provider to notify. * Telephone Encounter - Romel Michelle MD - 03/22/2024 5:01 PM EDT Will follow and sign orders * Telephone Encounter - Linn Harman LPN - 03/22/2024 4:49 PM EDT Romel Michelle MD [facility] is reviewing for home care services- Please advise if you are agreeable to signing and following for HHC services? Our Clinicians will be sending the Plan of Care to you for review and approval. They will reach out for any appropriate orders required to provide home care services for the patient. We are not able to initiate HHC services without a following provider. Home care clinicians may also obtain orders from [facility] Providers Thank you and we would be happy to answer any questions. Linn Harman LPN 03/22/2024 4:49 PM documented in this encounterFostoria [facility]06-19-2024 Telephone encounter Note * Telephone Encounter - Matthew Woodard RN - 03/24/2024 12:41 PM EDT Gladys Nurse with [facility] calling to see if provider will follow for [facility] home care. Since provider already agreed to follow and sign orders for [facility], verbal order giventhat provider will follow. Msg sent to provider to notify. [facility] Telephone encounter Note* Telephone Encounter - Romel Michelle MD - 03/22/2024 5:01 PM EDT Will follow and sign orders [facility] Telephone encounter Note* Telephone Encounter - Linn Harman LPN - 03/22/2024 4:49 PM EDT Romel Michelle MD [facility] is reviewing for home care services- Please advise if you are agreeable to signing and following for HHC services? Our Clinicians will be sending the Plan of Care to you for review and approval. They will reach out for any appropriate orders required to provide home care services for the patient. We are not able to initiate HHC services without a following provider. Home care clinicians may also obtain orders from [facility] Providers Thank you and we would be happy to answer any questions. Linn Hraman LPN 03/22/2024 4:49 PM [facility] Work Phone: 1(871) 971-282506-11-2024 Telephone encounter Note* Telephone Encounter - Aga Meredith APRN.CNP - 03/16/2024 9:18 AM EDT Called and spoke with patient~ per Dr. Buckner, he would like to cancel surgery tomorrow and admit herfor paracentesis and placement of feeding tube for poor nutritional status. Called admitting to request bad and advised patient that they would call her when bed becomes available. Updated inpatient team. Updated tugboat mate that her case needs to be cancelled tomorrow. Aga Meredith APRN.CNP [facility] Work Phone: 1(361) 788-218506-11-2024 Instructions* Patient Instructions* Lila Sanchez RN - 03/16/2024 9:18 AM EDT Images from the original note were not included. PCU RN ONCOLOGY PHYSICIAN CONTACT INFORMATION [place] [phone] Surgeons: Dr. Beckie Buckner Per Diem Registered Nurse Oncology Nurse Practitioners: Carey Elias APRN.DELFINO Mcneil CONTESTANT COORDINATOR.DELFINO Alicea APRN.DELFINO Natarajan APRN.CNP After 4:30 pm or on holidays or weekends, call: or [phone]. Ask the operatorto page the floor layer helper oncologist pollution control technician. PRE-OPERATIVE CHECKLIST: PATIENT INSTRUCTIONS PRIOR TO SURGERY Our guidelines have changed, so please read these instructions carefully. Your surgery may be cancelled if you do not follow these instructions. MY ARRIVAL TIME IS: I have been instructed not to have any solid food to eat after midnight prior to my surgery (this includes no gum, mints, smoking). I am allowed to drink small amounts (up to 12 oz) of clear liquids up until 2 hours prior to my arrival time. Clear liquids include water, fruit juices without pulp, carbonated beverages (i.e. isadora kell), electrolyte beverages (i.e. Gatorade), clear tea and black coffee, clear broth, popsicles and jello. (No milk). No alcohol the day before or day of surgery. I will bring this binder to all pre and post-operative appointments AND day of surgery. MEDICATION STOPPAGE: Unless my surgeon tells me differently, I will STOP THESE MEDICATIONS 7 DAYS PRIOR TO SURGERY: (Motrin/ibuprofen/Naproxen/Aleve/Advil), Aspirin, vitamin E, herbal medications, diet pills, and aevw-tra-tadpenz medications. Tylenol (acetaminophen) is okay. I will not wear jewelry, body piercing(s), makeup, nail argentine, hairpins, or contacts on the day ofsurgery. I am to leave valuables and money at home or with family members. If I am prescribed inhalers for breathing, I will use them and bring them to the hospital. Medication(s) to be taken on the morning of surgery with a few sips of water: If I am taking any of the following blood thinning medications - Aspirin, clopidogrel (Plavix), ticagrelor (Brilinta), prasugrel (Efficient), ticlodipine (Ticlid), warfarin (Coumadin), dibigatran (Pradaxa) or rivaroxaban (Xarelto) - I will discuss whether or not I should stop them before surgery with my surgeon. Discuss medication changes with your returned case inspector or primary care physician as well. If I stopped taking my blood-thinning medication, I will ask the surgeon when to resume taking it. If I am an outpatient, a responsible person will drive me home and it was suggested that someone stay with me for 24 hours. I understand that a chief business officer or cabdriver is NOT a responsible caregiver. Patients with diabetes,I will not take my morning diabetes medication (pills) on the morning of surgery. If I am on insulin, someone has gone over those instructions with me for the morning of surgery. I understand if my surgery is delayed, I will notify the check in desk that I have diabetes. See the Diabetic GuidelinesBefore Surgery in the patient education section. If I have Obstructive Sleep Apnea and use a CPAP/BiPAP machine, I will bring my mask, tubing, and machine with me on the day of surgery. Pain management education material found in Your Surgical Guide was reviewed with me. To find out my arrival time for surgery, I must call my director surgical after 2pm the day beforesurgery. Pre-operative instructions given by: ANTIBIOTIC BOWEL PREP Your physician has ordered a bowel preparation prior to surgery. It is important to follow these instructions to ensure adequate preparation for surgery and avoid possible delays or cancellation of your surgery. PURCHASE OVER THE COUNTER (no prescription needed): One 238 gram bottle of Miralax Dulcolax (two 5mg oral tablets), a.k.a. bisacodyl 64 oz of Gatorade (or other clear liquid) DIRECTIONS: One (1) Day Before Your Procedure Only drink clear liquids the ENTIRE DAY before your procedure. Do NOT eat any solid foods. Drink atleast 8 ounces of clear liquids every hour after waking up. The clear liquids you can drink include: Clear Liquid (NO RED LIQUIDS) Gatorade, Pedialyte or Powerade Clear broth or bouillon Coffee or tea (no milk or non-dairy creamer) Carbonated and non-carbonated soft drinks Philip-Aid or other fruit flavored drinks Strained fruit juices (no pulp) Jell-O, popsicles, hard candy Water DO NOT DRINK Alcohol Milk or non-dairy creamers Noodles or vegetables in soup Juice with pulp Liquid you cannot see through Day Prior to Procedure: 3:00 PM - Evening before your procedure. Take 2 Dulcolax tablets. 5 PM - Evening before your procedure Mix the whole bottle of Miralax and the Gatorade into a pitcher and stir until dissolved. Drink an 8 ounce glass every 10-15 minutes until the solution is gone. *If you experience nausea, slow down the pace of drinking or take a short break, then resume drinking. *It is important to continue drinking clear liquids until bedtime. Antibiotics - 1000mg of Neomycin at 1pm, 2pm and 11pm day before procedure 500mg of Flagyl at 1pm and 2pm, 1000mg of flagyl at 11pm day before procedure This is a prescription and will need to be called in to your pharmacy. PREOP INSTRUCTIONS THE DAY OF SURGERY/CHECK IN [facility]. A map is located in Your Surgical Guide Book. The online version of the surgical guide book can be found at: [email or web address] The address is [address] [place] [address] INFECTION PREVENTION Please notify your doctor if you have any signs of an infection (i.e. fever, severe cough, nasal congestion, pain with urination, abnormal vaginal discharge, diarrhea, etc). Your surgeon will let you know if a bowel prep is needed before your surgery. If so, please see theattached instructions. Shower the night before surgery AND the morning of surgery with Hibiclens (provided by your surgeon). If you are allergic to Hibiclens or unable to obtain the Hibiclens, please wash with antibacterial soap. Wash your body from the neck down, focusing on your abdomen, belly button and external genitalia. Do not forget to scrub any skin folds and creases. No lotions, oils, creams, or powders after your shower. Underarm deodorant is okay. No shaving (abdominal or pubic hair) or douching the day before surgery. You may be asked to apply an antiseptic solution called Chlorhexidine Gluconate (CHG) which will beprovided to you on arrival to the preop area. Hand washing is extremely important in preventing infection (for both you as the patient and for the caregivers). HOSPITALIZATION Before you leave the hospital, you typically need to be able to eat/drink, urinate, and have your pain controlled with oral medication. Your surgeon or other members of your surgeon s team will discuss any other specific medical issues related to your discharge with you. Your surgeon may order intermittent compression sleeves. These are massaging leg pumps to help prevent blood clots after surgery. See Your Surgical Guide Book for more information. It is also very important that you walk as soon as possible and as frequently as possible after surgery. This will help decrease your risk of blood clots, exercise your lungs and speed up your recovery after surgery. If you are admitted to the hospital overnight, you will be given an incentive spirometer, which is a breathing machine that will help make sure that you are taking deep breaths and expanding your lungs while in the hospital. See Your Surgical Guide Book for more information. [facility] TEAM At the [facility], we have a multidisciplinary team of caregivers that includes fellows, residents, nurse practitioners, physician assistants, clinical nurse specialists, nurses, medical assistants, patient care nursing assistants, social workers, rehabilitation caseworker and many others. We all have different roles and responsibilities but we are all here to help. POSTOP: ABDOMINAL SURGERY ACTIVITY No heavy lifting/pushing/pulling for 6-8 weeks. Do not lift anything more than about 10-15 lbs (such as laundry, groceries, children, pets), vacuum, push heavy doors or grocery carts, etc. You may climb stairs as tolerated. Do not put anything in the vagina for 6-8 weeks after surgery unless otherwise instructed by your doctor (including tampons, douching, sexual intercourse, etc). No driving for about 4 weeks after surgery, while you are taking narcotic pain medication, or untilyou feel that you are ready. Avoid sitting or lying in bed for more than 2 hours at a time while you are awake to reduce your risk of blood clots. Return to work when directed by your surgeon. Please contact your surgeon s office if any FMLA or other paperwork is needed. WOUND CARE Shower daily after surgery. Wash your incision with antibacterial soap (such as Dial). Pat your incision dry with a clean towel. No tub baths until wound is completely healed. If you have dave, they need to be removed about 10-14 days after surgery (sutures/surgical glue do not need to be removed). Keep incision clean, dry, and open to the air. Wash your hands frequently, especially before touching your incision, changing any dressings, afterusing the restroom, and before eating. PAIN MANAGEMENT You will be given prescriptions for a variety of pain medications (opioid and non-opioid) before you leave the hospital. Surgery will cause pain and everyone has a different pain tolerance. It is safer to find the right combination and amount of medicine to manage your pain. We recommend that you take the non-opioid medication (acetaminophen and ibuprofen) on a regular schedule after surgery. You can take these medications on an alternating schedule so that you are taking one or the other every 3-4 hours. The maximum total daily dose of acetaminophen is 4,000mg and the maximum totaldaily dose of ibuprofen is 2,400mg. Take the opioid prescription ONLY when your pain is severe and never take more pills or more frequent doses than prescribed. Opioids (narcotics) can cause serious side effects. The risks increase the longer they are used. Taking opioids may cause: constipation, drowsiness, itching, nausea/vomiting. More serious side effects of opioids may include: addiction or dependence, life threatening overdose, or dizziness leading to falls/injury. Keep your pain medication locked in a safe place. Never share your pain medication with others. If you have any remaining opioid pills after you recover from surgery, please bring them to a medication disposal station (located in many of the [facility] pharmacies). Do not flush them down the toilet. Constipation is a common problem after surgery. You should take a stool softener (i.e. colace) twice a day, especially if you are taking opioids. If a stool softener alone is not helping to manage your constipation, you can also take Miralax and/or milk of magnesia as needed. WHEN TO CALL THE DOCTOR Call your doctor if you have any of the following symptoms: Fever (>100.4 F or 38.0 C) or chills. Incision problems such as redness, warmth, swelling, or foul smelling drainage. Severe nausea or persistent vomiting. Bright red vaginal bleeding (soaking >1 pad/hour) or foul smelling vaginal drainage. Severe pain not relieved with pain medication. Pain and swelling in your legs, especially if it is only on one side and not the other. Pain with urination, cloudy urine, or foul smelling urine. Or if you have any other problems or questions. CALL 911 or go to the ED if you have any shortness of breath, difficulty breathing, or chest pain. Advance Directives Every adult has the right to direct their own medical care. Having an advance directive on file helps to ensure that you receive the care you want if a medical condition or injury renders you unable to make decisions or communicate. Forms can be found on the [facility] Advance Directives site. You do not need a service unit operator oil well to complete advance directive documents. [email or web address] Talking about end-of-life issues is difficult, but it truly is a gift to your loved ones. We suggest using The Conversation Project (theAbsolute Commerceationproject.org) to help guide you through discussing and thinking about your wishes/preferences, goals and values and completing your advance directive. After you complete the documents, talk to those people who may be involved with your healthcare decision making, and give them a copy of your forms to make sure your wishes are followed. Please bringa copy of your advance directive documents to your next appointment, or email to [email or web address] as an attachment in either PDF, TIFF, or JPEG format. You can also mail to: [facility] Information Management, Ab7 Advance Directive Processing [address] [place], [place] [address] documented in this encounterFostoria City Hospital06-11-2024 Miscellaneous Notes* Telephone Encounter - Aga Meredith APRN.CNP - 03/16/2024 9:18 AM EDT Called and spoke with patient~ per Dr. Buckner, he would like to cancel surgery tomorrow and admit herfor paracentesis and placement of feeding tube for poor nutritional status. Called admitting to request bad and advised patient that they would call her when bed becomes available. Updated inpatient team. Updated tugboat mate that her case needs to be cancelled tomorrow. Aga Meredith APRN.CNP documented in this encounterFostoria City Hospital06-11-2024 History of Present illness Narrative* Lila Sanchez, RN - 03/16/2024 9:17 AM EDT DATE OF SERVICE: 03/16/2024 PROBLEM: Sal Bautista presents for pre-op teaching. PRE-OP DIAGNOSIS: Pelvic mass SCHEDULED SURGERY AND DATE: *NOT SCHEDULED* open surgery, remove the uterus, tubes, ovaries possible removal of lymph nodes, biopsies, tumor, possible blood product transfusion PRIMARY SURGEON: Fredis Buckner MD NURSING PREOP ASSESSMENT: Fevers, chills, cough, or nasal congestion: No Vaginal itching, burning, discharge, or odor: No Pain with urination, frequency, urgency, cloudy or foul smelling urine: No If yes to any of the above then MD notified: Not Applicable ADVANCED CARE PLANNING: Does the patient have an advanced directive: No Does [facility] have a copy of the patient's advanced directive: No Was advanced directive given to the patient: Yes PATIENT LEARNING ASSESSMENT: Individual patient/family learning needs evaluated and addressed: Yes Cognitive ability: Alert and oriented Motivation to learn: Eager Interested Factors affecting learning: None Physical limitations affecting learning: None Patient learns best by: Multiple Methods Method of instruction: Individual instruction Verbal instruction Instructions provided to: Patient via telephone. Family support: Unable to assess - Family not present PRE- AND POST-OPERATIVE TEACHING Pre-operative teaching and supplemental material provided and reviewed with patient: Your Surgical Guide Book Map Written pre-op and post-op instructions Bowel prep directions Antibacterial soap: given to patient prior to preop teaching appointment Pre-operative instructions provided and reviewed with patient/family: No eating, drinking, or smoking after midnight prior to surgery unless otherwise directed No alcohol the day before surgery Medications as prescribed by anesthesia, internal medicine, surgeon, or DIRECTOR OF NURSING Stop NSAIDs, Aspirin (ASA), vitamins, herbal supplements, herbal teas, and diet pills 7-10 days prior to surgery OK to take tylenol prn pain unless otherwise directed by physician Call surgery coordinators if any other questions about surgery date or pre-op appointments Bowel prep instructions: NPO after midnight Day of surgery instructions provided and reviewed with patient/family: Arrival time (call surgical coordinators on the office day prior to surgery for verification) No jewelry, body piercing, makeup, contacts, lotions, nail argentine on fingers, or anything in hair on arrival to surgery Wear low healed shoes and loose fitting clothing Leave all valuables at home or with a family member Directions to [facility] and the [facility] Parking/parking validation on the day prior to surgery Admission/check in (Report to DESK J1-9 for surgery) Holding area Placement of IV Surgical positioning Family waiting area Surgical recovery room Post-operative instructions provided and reviewed with patient/family: SEE PATIENT INSTRUCTION SECTION FOR DETAILS. ACTIVITY - No heavy lifting (>5-10 lbs), no pushing/pulling, OK to climb stairs DRIVING - No driving for 3 weeks unless prior approval from MD, OK to ride in a car. DIET - Advance diet as tolerated and as ordered by MD, drink 8 glasses of water a day, eat a diet high in protein and fiber unless otherwise directed by MD. CATHETER - Will be inserted during surgery, you may go home with a catheter for 7-10 days and will have to come back to the office for a voiding trial, UTI symptoms reviewed and patient instructed melissa OCASIO of any of these symptoms. INCISION CARE - Keep incision clean and dry, dave to be removed 7-10 days after surgery, steristrips do not need to be removed by MD BATHING - OK to shower after surgery unless otherwise directed by MD, no tub baths. PAIN MEDICATION - IV pain medication after surgery, IV RIM FIRE PRIMING OPERATOR if ordered by MD, discharged home with aprescription for PO pain medication, pain management after surgery, side effects of pain medication(including constipation, dizziness, drowsiness, and medication interactions). VAGINAL CARE - Pelvic rest x6 weeks unless otherwise directed by MD. DVT PROPHYLAXIS - Early ambulation, SCDs, injectable anticoagulants (heparin, lovenox, etc) RESPIRATORY - Incentive spirometer, coughing/deep breathing exercises, ambulation. RETURN TO WORK - As directed by physician, please send any FMLA papers to physician's admin secretary. SYMPTOMS TO NOTIFY MD - Fever, chills, nausea, vomiting, increased or severe pain, heavy vaginal bleeding, foul smelling vaginal drainage, pain or swelling in extremities. URGENT SYMPTOMS - Call 911 or go to ER if any shortness of breath, difficulty breathing, or chest pain. HOW TO CONTACT PHYSICIAN - Physician's office phone number given to patient, if after hours patientinstructed to call brownell operator and ask for pollution control technician floor layer helper onc resident. ONESIMO program offered to patient: No Additional teaching as indicated by patient/family learning needs. PATIENT LEARNING EVALUATION & FOLLOW UP PLAN: Patient and/or family express understanding of upcoming surgery, pre-operative preparation, the operative process, and post-operative instructions. Follow up plan: Complete - No need for follow-up Patient has a post-op appointment scheduled: Yes Referral (recommentation): None Educator: Lila Sanchez RN [facility] [place] documented in [facility]06[facility] History of Present illness Narrative* Bushra Liu RT(R) - 03/16/2024 8:00 AM EDT Radiology Service Progress Note PATIENT NAME: Sal Bautista DATE OF SERVICE: March 16, 2024 TIME: 4:15 PM PATIENT IDENTITY VERIFICATION COMPLETED USING TWO (2) IDENTIFIERS: Name and Date of confirmedby patient verbally. FALL SCREENING: Has the patient had 2 falls in the last year or 1 fall with injury or currently using an Ambulatory Assistive Device (Walker, Cane, Wheelchair, Crutches, etc.)? No PATIENT GENDER DATA: Female. status: : No status: NO. PATIENT RELEVANT IMPLANT DATA REVIEWED: Yes PATIENT PRESENTS WITH AN IMPLANTABLE OR ATTACHED MILK TANKER DRIVER: No RADIOLOGY DEPARTMENT: CT; Exam(s) Completed: Chest PERIPHERAL IV DATA: Not applicable SIGNED BY: RT Maira(R) March 16, 2024 4:15 PM documented in this encounterFostoria City Hospital06-10-2024 Instructions* Patient Instructions* Tarsha Alicea APRN.PHOTOGRAPHER LITHOGRAPHIC - 03/15/2024 3:17 PM EDT Images from the original note were not included. Please visit the following website for the [facility] surgery guide. [email or web address] PATIENT SURGICAL CHECKLIST - NEXT STEPS Your surgeon's office will call you to arrange your surgery date and pre- admission testing appointments. You should receive a call within 2-5 business days from our scheduling team. (If you do not receive a call within 5 days - please call [phone]) Pre-admission testing appointments include: - Covid Testing (if indicated) - Preop exam either with PACC (pre-anesthesia consultation clinic) or with the DIRECTOR OF NURSING from the surgical team - Preop nurse teaching appointment (can also be done over the phone) - Lab work - Any other testing that the provider orders for prior to surgery if needed You will receive a call from the tugboat mate the business day prior to your surgery as to when and where to arrive on the day of your scheduled surgery PCU RN ONCOLOGY PHYSICIAN CONTACT INFORMATION Surgery Scheduling Office Surgeons: Dr. Beckie Resendez Dr. Moustapha Luis Dr. Fredis Pathak Per Diem Registered Nurse Oncology Nurse Practitioners: Aga Meredith, CONTESTANT COORDINATOR.DELFINO Watson, CONTESTANT COORDINATOR.DELFINO Ford, CONTESTANT COORDINATOR.DELFINO Middleton, CONTESTANT COORDINATOR.DELFINO Decker, CONTESTANT COORDINATOR.DELFINO Vann, CONTESTANT COORDINATOR.DELFINO After 4:30 pm or on holidays or weekends, call: or . Ask the operatorto page the floor layer helper oncologist pollution control technician. PRE-OPERATIVE CHECKLIST: PATIENT INSTRUCTIONS PRIOR TO SURGERY Our guidelines have changed, so please read these instructions carefully. Your surgery may be cancelled if you do not follow these instructions. MY ARRIVAL TIME IS: I have been instructed not to have any solid food to eat after midnight prior to my surgery (this includes no gum, mints, smoking). I am allowed to drink small amounts (up to 12 oz) of clear liquids up until 2 hours prior to my arrival time. Clear liquids include water, fruit juices without pulp, carbonated beverages (i.e. isadora kell), electrolyte beverages (i.e. Gatorade), clear tea and black coffee, clear broth, popsicles and jello. (No milk). No alcohol the day before or day of surgery. I will bring this binder to all pre and post-operative appointments AND day of surgery. MEDICATION STOPPAGE: Unless my surgeon tells me differently, I will STOP THESE MEDICATIONS 7 DAYS PRIOR TO SURGERY: (Motrin/ibuprofen/Naproxen/Aleve/Advil), Aspirin, vitamin E, herbal medications, diet pills, and quak-zbz-vgqyewk medications. Tylenol (acetaminophen) is okay. I will not wear jewelry, body piercing(s), makeup, nail argentine, hairpins, or contacts on the day ofsurgery. I am to leave valuables and money at home or with family members. If I am prescribed inhalers for breathing, I will use them and bring them to the hospital. Medication(s) to be taken on the morning of surgery with a few sips of water: If I am taking any of the following blood thinning medications - Aspirin, clopidogrel (Plavix), ticagrelor (Brilinta), prasugrel (Efficient), ticlodipine (Ticlid), warfarin (Coumadin), dibigatran (Pradaxa) or rivaroxaban (Xarelto) - I will discuss whether or not I should stop them before surgery with my surgeon. Discuss medication changes with your returned case inspector or primary care physician as well. If I stopped taking my blood-thinning medication, I will ask the surgeon when to resume taking it. If I am an outpatient, a responsible person will drive me home and it was suggested that someone stay with me for 24 hours. I understand that a chief business officer or cabdriver is NOT a responsible caregiver. Patients with diabetes,I will not take my morning diabetes medication (pills) on the morning of surgery. If I am on insulin, someone has gone over those instructions with me for the morning of surgery. I understand if my surgery is delayed, I will notify the check in desk that I have diabetes. See the Diabetic GuidelinesBefore Surgery in the patient education section. If I have Obstructive Sleep Apnea and use a CPAP/BiPAP machine, I will bring my mask, tubing, and machine with me on the day of surgery. Pain management education material found in Your Surgical Guide was reviewed with me. To find out my arrival time for surgery, I must call my director surgical after 2pm the day beforesurgery. Pre-operative instructions given by: PREOP INSTRUCTIONS THE DAY OF SURGERY/CHECK IN Report to DESK -9 for surgery. A map is located in Your Surgical Guide Book. The online version of the surgical guide book can be found at: [email or web address] The address is [address] [place] [address]/[place] [address] INFECTION PREVENTION Please notify your doctor if you have any signs of an infection (i.e. fever, severe cough, nasal congestion, pain with urination, abnormal vaginal discharge, diarrhea, etc). Your surgeon will let you know if a bowel prep is needed before your surgery. If so, please see theattached instructions. Shower the night before surgery AND the morning of surgery with Hibiclens (provided by your surgeon). If you are allergic to Hibiclens or unable to obtain the Hibiclens, please wash with antibacterial soap. Wash your body from the neck down, focusing on your abdomen, belly button and external genitalia. Do not forget to scrub any skin folds and creases. No lotions, oils, creams, or powders after your shower. Underarm deodorant is okay. No shaving (abdominal or pubic hair) or douching the day before surgery. You may be asked to apply an antiseptic solution called Chlorhexidine Gluconate (CHG) which will beprovided to you on arrival to the preop area. Hand washing is extremely important in preventing infection (for both you as the patient and for the caregivers). HOSPITALIZATION Before you leave the hospital, you typically need to be able to eat/drink, urinate, and have your pain controlled with oral medication. Your surgeon or other members of your surgeon s team will discuss any other specific medical issues related to your discharge with you. Your surgeon may order intermittent compression sleeves. These are massaging leg pumps to help prevent blood clots after surgery. See Your Surgical Guide Book for more information. It is also very important that you walk as soon as possible and as frequently as possible after surgery. This will help decrease your risk of blood clots, exercise your lungs and speed up your recovery after surgery. If you are admitted to the hospital overnight, you will be given an incentive spirometer, which is a breathing machine that will help make sure that you are taking deep breaths and expanding your lungs while in the hospital. See Your Surgical Guide Book for more information. [facility] TEAM At the [facility], we have a multidisciplinary team of caregivers that includes fellows, residents, nurse practitioners, physician assistants, clinical nurse specialists, nurses, medical assistants, patient care nursing assistants, social workers, rehabilitation caseworker and many others. We all have different roles and responsibilities but we are all here to help. POSTOP: ABDOMINAL SURGERY ACTIVITY No heavy lifting/pushing/pulling for 6-8 weeks. Do not lift anything more than about 10-15 lbs (such as laundry, groceries, children, pets), vacuum, push heavy doors or grocery carts, etc. You may climb stairs as tolerated. Do not put anything in the vagina for 6-8 weeks after surgery unless otherwise instructed by your doctor (including tampons, douching, sexual intercourse, etc). No driving for about 4 weeks after surgery, while you are taking narcotic pain medication, or untilyou feel that you are ready. Avoid sitting or lying in bed for more than 2 hours at a time while you are awake to reduce your risk of blood clots. Return to work when directed by your surgeon. Please contact your surgeon s office if any FMLA or other paperwork is needed. WOUND CARE Shower daily after surgery. Wash your incision with antibacterial soap (such as Dial). Pat your incision dry with a clean towel. No tub baths until wound is completely healed. If you have dave, they need to be removed about 10-14 days after surgery (sutures/surgical glue do not need to be removed). Keep incision clean, dry, and open to the air. Wash your hands frequently, especially before touching your incision, changing any dressings, afterusing the restroom, and before eating. PAIN MANAGEMENT You will be given prescriptions for a variety of pain medications (opioid and non-opioid) before you leave the hospital. Surgery will cause pain and everyone has a different pain tolerance. It is safer to find the right combination and amount of medicine to manage your pain. We recommend that you take the non-opioid medication (acetaminophen and ibuprofen) on a regular schedule after surgery. You can take these medications on an alternating schedule so that you are taking one or the other every 3-4 hours. The maximum total daily dose of acetaminophen is 4,000mg and the maximum totaldaily dose of ibuprofen is 2,400mg. Take the opioid prescription ONLY when your pain is severe and never take more pills or more frequent doses than prescribed. Opioids (narcotics) can cause serious side effects. The risks increase the longer they are used. Taking opioids may cause: constipation, drowsiness, itching, nausea/vomiting. More serious side effects of opioids may include: addiction or dependence, life threatening overdose, or dizziness leading to falls/injury. Keep your pain medication locked in a safe place. Never share your pain medication with others. If you have any remaining opioid pills after you recover from surgery, please bring them to a medication disposal station (located in many of the [facility] pharmacies). Do not flush them down the toilet. Constipation is a common problem after surgery. You should take a stool softener (i.e. colace) twice a day, especially if you are taking opioids. If a stool softener alone is not helping to manage your constipation, you can also take Miralax and/or milk of magnesia as needed. WHEN TO CALL THE DOCTOR Call your doctor if you have any of the following symptoms: Fever (>100.4 F or 38.0 C) or chills. Incision problems such as redness, warmth, swelling, or foul smelling drainage. Severe nausea or persistent vomiting. Bright red vaginal bleeding (soaking >1 pad/hour) or foul smelling vaginal drainage. Severe pain not relieved with pain medication. Pain and swelling in your legs, especially if it is only on one side and not the other. Pain with urination, cloudy urine, or foul smelling urine. Or if you have any other problems or questions. CALL 911 or go to the ED if you have any shortness of breath, difficulty breathing, or chest pain. documented in this encounterFost[facility]06-10-2024 History of Present illness Narrative* Fredis Buckner MD - 03/15/2024 2:00 PM EDT Gynecologic Oncology [facility] Consultation Re: Sal Bautista CCF#: [id number] Date of Service: 03/15/[address] Romel Michelle for an opinion regarding pelvic mass. My final recommendations will be communicated back to the requesting physician by way of shared Medical record or letter to requesting physician via US mail. History obtained from available records and/or telephone interview. Dear Romel Michelle, Thank you for referring Sal for consultation. Briefly, she is a 73 year old female, 2, para 2 with a past medical history of IBS and osteoporosis who is referred for the evaluation of pelvic mass. 02/24/2024 patient presented to PCP with c/o abdominal distention and bloating. History of IBS causing both diarrhea and constipation. 03/10/2024 CT Abd/Pel IMPRESSION: Large complex cystic mass in the left pelvis with adjacent soft tissue component extending into the right pelvis concerning for ovarian neoplasm. Ascites and changes of carcinomatosis also present in the abdomen and pelvis. ALLERGIES: ALLERGIES No Known Allergies Current Outpatient Medications on File Prior to Visit Medication Sig dicyclomine (BENTYL) 10 mg capsule Take 1 or 2 before meals, as needed. Simethicone (GAS-X) 125 mg cap Take 1 capsule by mouth four times a day as needed. (will verify thedose) alendronate (FOSAMAX) 70 mg tablet Take 1 tablet by mouth one time a week. Take with a full glass of water, on an empty stomach; do NOT lie down for 30minutes. Cholecalciferol, Vitamin D3, 50 mcg (2,000 unit) cap Take 1 capsule by mouth once daily. Loperamide HCl (ANTI-DIARRHEAL) 2 mg tab Take 1 tablet by mouth as needed. Methylcellulose, Laxative, 500 mg tab Take 1 tablet by mouth once daily. (Patient not taking: Reported on 02/24/2024) No current facility-administered medications on file prior to visit. 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 left sterotactic COLONOSCOPY FLX DX W/COLLJ SPEC WHEN PFRMD 03/09/2012 Colonoscopy COLONOSCOPY FLX DX W/COLLJ SPEC WHEN PFRMD 11/22/15 Colonoscopy (MAC) ESOPHAGOGASTRODUODENOSCOPY TRANSORAL DIAGNOSTIC 11/22/15 EGD (MAC) OBSTETRICAL/GYNECOLOGIC HISTORY: 2, Para 2 via vaginal delivery. LMP: post-menopausal Denies the use of HRT in the past. Last pap smear: 02/06/2017 - Negative Last mammogram: 07/07/2023 - Negative Last colonoscopy: 11/22/2015 normal GENETIC ASSESSMENT: Does the patient have an epithelial ovarian cancer? no Does the patient have a family history of ovarian cancer? no Does the patient have a personal history or family history of breast cancer (including male breast cancer)? no Does the patient have a personal or family history of uterine cancer? no Does the patient have a personal or family history of colon cancer? no Is the patient Ashkenazi Congregational (i.e. from [place] or [place])? no Does the patient have a relative with a known mutation (e.g. BRCA1 or BRCA2 mutation)? no FAMILY HISTORY Problem Relation Age of Onset None Mother None Father Breast Cancer Maternal Aunt Social History Tobacco Use Smoking status: Never Smokeless tobacco: Never Substance Use Topics Alcohol use: Yes Comment: social Drug use: No REVIEW OF SYSTEMS: GENERAL- + unexplained weight loss, fatigue. Lost muscle mass. She thought was IBS HEENT- denies any vision/hearing changes or headaches. RESP- denies shortness of breath, cough, wheezing CARDIAC- denies chest pain, palpitations, peripheral edema BREAST- no masses, pain, drainage GI- Denies nausea, vomiting, constipation, diarrhea + abdominal pain and bloating - denies dysuria, incontinence PCU RN- no abnormal vaginal bleeding, discharge SKIN- denies new rashes MUSCULAR- no muscular/skeletal pain or weakness ENDOCRINE- no hot flashes, night sweats NEURO- denies neurologic symptoms/stroke/seizure OBJECTIVE: BP 134/80 Pulse 74 Temp 36.6 C (97.8 F) (Oral) Ht 165.3 cm (5' 5.08) Wt 56.2 kg (124 lb) SpO2 100% BMI 20.58 kg/m Female in no acute distress. Neck - Negative. Supraclavicular - Adenopathy absent. Cardiac - Regular rate and rhythm without murmur or gallop. Carotids 2+ without bruits. Respiratory - Clear to ausculation bilaterally. Abdominal - No CVA tenderness. The bowel sounds are positive. The abdomen is soft, nontender and there is no inguinal adenopathy. Pelvic - Normal vulva, vagina and cervix. Bimanual and rectovaginal exams reveal a large anterior pelvic mass Laminator [employer] offered: Patient accepts, visit chaperoned by Mercedes Green MD; Ema Gonzalez RN IMPRESSION/PLAN: 03/15/2024 I spent a total of 40 minutes on the date of the service which included preparing to see the patient, [id number] patient care, completing clinical documentation, obtaining and/or reviewing separately obtained history, performing a medically appropriate examination, counseling and educating the pat ient/family/caregiver, ordering medications, tests, or procedures, communicating with other HCPs (not separately reported), independently interpreting results (not separately reported), communicatingresults to the patient/family/caregiver, and care coordination (not separately reported). 73yo female presents for management of pelvic mass, peritoneal thickening, and moderate volumeascites. No tumor markers were drawn. Patient with history of IBS. Her last colonoscopy from November 2015 was normal. She has been losing weight since December this year. Reports difficulty with eatingwhich is not unusual for IBS. Family history of breast cancer (maternal aunt). I reviewed her CT scan from 03/10/2024 showing a large pelvic mass. There were irregularities seen along the diaphragm reflecting fluid and solid masses. There were ascites and findings suggesting carcinomatosis. I discussed my suspicion for malignancy and we will obtain tumor markers (CA125, CA19-9,and CEA) for further work up. We typically treat gynecologic cancers with either primary surgery and adjuvant chemotherapy or neoadjuvant chemotherapy and interval debulking surgery. Patient is 73 year old but she has good performance status and has no significant medical problems. I think she willbe a good candidate for primary debulking surgery if her prealbumin is wnl. If patient can be optimally cytoreduced, her survival could be improved. We will obtain prealbumin to evaluate her nutritional status and a chest CT to rule out intrathoracic disease. If her prealbumin is acceptable, will plan for primary debulking. Discussed the duration of hospital stay of 3 days after surgery with no bowel resection and approximately 7 days with bowel resection. If her CA125 is normal and her other tumor markers are elevated, may plan for IR biopsy to determine primary. If her prealbumin is very low, this could increase operative morbidity from primary surgery so we will pursue neoadjuvant chemotherapy while bringing her nutritional status up to get ready for interval debulking. I explained that chemotherapy can help reduce the volume of her ascites at which point she will feel less distendedand be able to eat more. Consents obtained today for both primary surgery and neoadjuvant chemotherapy and we will decide which approach based on her lab and imaging results. Thank you for referring the patient for Gynecologic Oncology consultation. I will be in touch with you regarding her findings. Resident/Fellow's history reviewed. Patient interviewed and examined. Assessment and plan reviewed with fellow. I have personally examined the patient and repeated the saenz components of the exam/history. The assessment and plan were formulated and discussed with the resident/fellow. ATTESTATION: By signing my name below, Hayley Noyola, attest that this documentation has been prepared under the direction and in the presence of Fredis Buckner MD. Electronically signed: Narciso Good, March 15, 2024 2:28 PM Provider Attestation: IrFedis MD, personally performed the services described in this documentation. All medicalrecord entries made by the scribe were at my direction and in my presence. I have reviewed the chart and discharge instructions (if applicable) and agree that the record reflects my personal performance and is accurate and complete. Fredis Buckner MD March 16, 2024 4:58 AM I have confirmed and edited as necessary, the history of the present illness (HPI). Interval changes in the history of present illness are noted. I have confirmed and edited as necessary, the PFSH and ROS obtained by others. I saw the patient and personally participated in the saenz components and agree with the documented findings and plan. Sincerely, Fredis Buckner M.D. Reviewed and corrected by Fredis Buckner M.D. documented in this encounterFostoria City Hospital06-[facility] Telephone encounter Note * Telephone Encounter - Aixa Acosta LPN - 03/12/2024 8:49 AM EDT Pt has been scheduled 03/15/24. [facility] Miscellaneous Notes* Telephone Encounter - Aixa Acosta LPN - 03/12/2024 8:49 AM EDT Pt has been scheduled 03/15/24. * Telephone Encounter - Aixa Acosta LPN - 03/11/2024 1:47 PM EDT Pt has been scheduled 03/22/24. We are asking for this to be reviewed for a sooner appt. * Telephone Encounter - Aixa Acosta LPN - 03/11/2024 10:17 AM EDT Called pt on cell and reviewed about appt needed. And the schedulers will get back with her regarding an appt. * Telephone Encounter - Romel Michelle MD - 03/11/2024 8:32 AM EDT Let patient know that our oncologist recommended consultation with PCU RN/Onc at [facility] first available (not a specific provider). Help make appointment if site fine with patient. * Telephone Encounter - Romel Michelle MD - 03/10/2024 7:13 PM EDT Called patient to discuss results of CT scan done today. Reviewed that there is a large mass in the left pelvis extending to the right side that is concerning for ovarian cancer. Ascites was seen and also changes involving the mesentery. Reviewed plans to recommend to a gynecology/oncologist and to get recommendations from our oncologist. Noted that patient has not had follow-up with a emr specialist since last saw Laurie Henry in 2020. Note the patient has continued problems with being able to eat and drink well. Encouraged her to try to drink her nutrition. She has avoid milk products since it upsets her IBS. Discussed options including boost, Ensure, Premier. Hoping that someone will be able to call her to schedule an appointment tomorrow. Told her to let us know if she has not heard from anybody by the afternoon. [facility] Telephone encounter Note * Telephone Encounter - Aixa Acosta LPN - 03/11/2024 1:47 PM EDT Pt has been scheduled 03/22/24. We are asking for this to be reviewed for a sooner appt. [facility] Telephone encounter Note* Telephone Encounter - Ema Gonzalez RN - 03/11/2024 11:52 AM EDT Spoke to patient for new patient referral. [facility] Miscellaneous Notes* Telephone Encounter - Ema Gonzalez RN - 03/11/2024 11:52 AM EDT Spoke to patient for new patient referral. documented in this encounterF[facility]06-[facility]24 Telephone encounter Note * Telephone Encounter - Aixa Acosta LPN - 03/11/2024 10:17 AM EDT Called pt on cell and reviewed about appt needed. And the schedulers will get back with her regarding an appt. [facility] Telephone encounter Note* Telephone Encounter - Romel Michelle MD - 03/11/2024 8:32 AM EDT Let patient know that our oncologist recommended consultation with PCU RN/Onc at [facility] first available (not a specific provider). Help make appointment if site fine with patient. [facility] Telephone encounter Note* Telephone Encounter - Romel Michelle MD - 03/10/2024 7:13 PM EDT Called patient to discuss results of CT scan done today. Reviewed that there is a large mass in the left pelvis extending to the right side that is concerning for ovarian cancer. Ascites was seen and also changes involving the mesentery. Reviewed plans to recommend to a gynecology/oncologist and to get recommendations from our oncologist. Noted that patient has not had follow-up with a emr specialist since last saw Laurie Henry in 2020. Note the patient has continued problems with being able to eat and drink well. Encouraged her to try to drink her nutrition. She has avoid milk products since it upsets her IBS. Discussed options including boost, Ensure, Premier. Hoping that someone will be able to call her to schedule an appointment tomorrow. Told her to let us know if she has not heard from anybody by the afternoon. [facility] History of Present illness Narrative* Bushra Liu, RT(R) - 03/10/2024 1:40 PM EDT Radiology Service Progress Note DATE OF SERVICE: March 10, 2024 TIME: 4:01 PM PATIENT IDENTITY VERIFICATION COMPLETED USING TWO (2) STANDARD IDENTIFIERS: Name and Date of confirmed by patient verbally. FALL SCREENING: Has the patient had 2 falls in the last year or 1 fall with injury or currently using an Ambulatory Assistive Device (Walker, Cane, Wheelchair, Crutches, etc.)? No PATIENT GENDER DATA: Female. status: : No status: NO. PATIENT RELEVANT IMPLANT DATA REVIEWED: Yes PATIENT PRESENTS WITH AN IMPLANTABLE OR ATTACHED MILK TANKER DRIVER: No ALLERGIES: Reviewed and unchanged CONTRAST ALLERGY: NO. EXAM: CT -CONTRAST INDUCED NEPHROPATHY RISK FACTORS: Patient age > 60 years CREATININE: Creatinine Date Value Ref Range Status 03/10/2024 0.87 0.58 - 0.96 mg/dL Final 07/11/2023 0.85 0.58 - 0.96 mg/dL Final 06/25/2022 0.82 0.58 - 0.96 mg/dL Final Estimated Glomerular Filtration Rate Date Value Ref Range Status 03/10/2024 71 >=60 mL/min/1.73m Final Comment: Estimated Glomerular Filtration Rate (eGFR) is calculated using the 2020 CKD-EPI creatinine equation. This equation utilizes serum creatinine, sex, and age as parameters. The creatinine assay has traceable calibration to isotope dilution- mass spectrometry. Refer to KDIGO guidelines for clinical interpretation. In patients with unstable renal function, e.g. those with acute kidney injury, the eGFRmay not accurately reflect actual GFR. eGFR- Date Value Ref Range Status 06/15/2019 >60 Final P.O.C.T. RESULTS: POC done: Yes, See Lab Tab March 10, 2024 TREATMENT: N/A PERIPHERAL IV DATA: Ambulatory: A peripheral IV was started in the Left antecubital site with a Angio cath: 22 gauge. RADIOLOGY DEPARTMENT: CT; Exam(s) Completed: Abdomen/Pelvis SIGNATURE: RT Maira(R) PATIENT NAME: Sal Bautista DATE: March 10, 2024 TIME: 4:01 PM documented in this encounterFost[facility]06-04-[facility]24 Telephone encounter Note * Telephone Encounter - Courtney Galindo LPN - 03/09/2024 2:[address] scheduled 03/24/2024. Courtney Galindo LPN [facility]06-04-[facility] Miscellaneous Notes* Telephone Encounter - Courtney Galindo LPN - 03/09/2024 2:[address] scheduled 03/24/2024. Courtney Galindo LPN * Telephone Encounter - Alyse Alexandra LPN - 03/09/2024 12:04 PM EDT Pt notified of results and provider message. Pt reports she has tried Gax X or something like it and it did not help. Pt transferred to [facility] to schedule CT. Alyse Alexandra LPN * Telephone Encounter - Estefany Valverde RN - 03/09/2024 11:42 AM EDT Called and left a voicemail for the Patient to call back and ask for a nurse to receive the providers message. Estefany Valverde RN * Telephone Encounter - Romel Michelle MD - 03/08/2024 7:55 PM EDT Just a lot of gas seen in the small intestines. Hard to tell if there is much stool in the colon. Given her persistent symptoms and cannot see an explanation (like a lot of stool in the colon), would get CT scan of abdomen and pelvis. Verify whether has tried decompressing bowels by taking GasX or Phazyme (simethicone) 4 times daily. I ordered labs--needs done prior to CT to get creatinine, so ordered other test to update as well (Vitamin D, CMP and CBC) If develops red flag symptoms (more severe pain, fever, chills, intractable nausea and vomiting andnot able to keep enough food or fluids down,bloody stools), needs to go to ER. * Telephone Encounter - Nena Latif LPN - 03/08/2024 3:20 PM EDT Patient is calling after results of x-ray showed only gas-filled small bowel. Has not had any improvement with symptoms. She is asking what is the next step in trying to figure out cause and treatment? Is finding certain vegetables is making symptoms worse. documented in this encounterF[facility]06-[facility]24 Telephone encounter Note * Telephone Encounter - Alyse Alexandra LPN - 03/09/2024 12:04 PM EDT Pt notified of results and provider message. Pt reports she has tried Gax X or something like it and it did not help. Pt transferred to [facility] to schedule CT. Alyse Alexandra LPN [facility]-04-[facility] Telephone encounter Note* Telephone Encounter - Estefany Valverde RN - 03/09/2024 11:42 AM EDT Called and left a voicemail for the Patient to call back and ask for a nurse to receive the providers message. Estefany Valverde RN [facility] Telephone encounter Note* Telephone Encounter - Romel Michelle MD - 03/08/2024 7:55 PM EDT Just a lot of gas seen in the small intestines. Hard to tell if there is much stool in the colon. Given her persistent symptoms and cannot see an explanation (like a lot of stool in the colon), would get CT scan of abdomen and pelvis. Verify whether has tried decompressing bowels by taking GasX or Phazyme (simethicone) 4 times daily. I ordered labs--needs done prior to CT to get creatinine, so ordered other test to update as well (Vitamin D, CMP and CBC) If develops red flag symptoms (more severe pain, fever, chills, intractable nausea and vomiting andnot able to keep enough food or fluids down,bloody stools), needs to go to ER. [facility] Telephone encounter Note* Telephone Encounter - Nena Latif LPN - 03/08/2024 3:20 PM EDT Patient is calling after results of x-ray showed only gas-filled small bowel. Has not had any improvement with symptoms. She is asking what is the next step in trying to figure out cause and treatment? Is finding certain vegetables is making symptoms worse. [facility]-30-[facility] Telephone encounter Note* Telephone Encounter - Siomara Dickey OCCA - 03/04/2024 12:21 PM EDT TC to patient who verbalized understanding of below. XR is currently in process. DARRION Ludwig [facility] Miscellaneous Notes* Telephone Encounter - Siomara Dickey OCCA - 03/04/2024 12:21 PM EDT TC to patient who verbalized understanding of below. XR is currently in process. DARRION Ludwig * Telephone Encounter - Romel Michelle MD - 03/03/2024 8:19 PM EDT Start with Xray abdomen to determine whether issue is a lot of gas or stool or both. Ordered If that test not helpful, consider CT abdomen and pelvis. If at any time gets more severe and persistent pain, recommend ER evaluation so they can do stat imaging. * Telephone Encounter - Alyse Alexandra LPN - 03/02/2024 2:19 PM EDT Last OV: 02/24/24 Pt reports she saw pcp last week for stomach issues. Pt reports the bloating seems worse and today feels like it is moving more towards the top of her abdomen. Pt reports at OV provider had said thatif sx worsened or did not get better that there was testing that could be done. Pt is asking what kind of testing would that be. Please review and advise. Alyse Alexandra LPN documented in this encounterFostoria City Hospital05-30-2024 History of Present illness Narrative* Sana Luther RT(R) - 03/04/2024 8:00 AM EDT Radiology Service Progress Note PATIENT NAME: Sal Bautista DATE OF SERVICE: March 04, 2024 TIME: 11:54 AM PATIENT IDENTITY VERIFICATION COMPLETED USING TWO (2) IDENTIFIERS: Name and Date of confirmedby patient verbally. FALL SCREENING: Has the patient had 2 falls in the last year or 1 fall with injury or currently using an Ambulatory Assistive Device (Walker, Cane, Wheelchair, Crutches, etc.)? No PATIENT GENDER DATA: Female. status: : No status: NO. PATIENT RELEVANT IMPLANT DATA REVIEWED: Not Applicable PATIENT PRESENTS WITH AN IMPLANTABLE OR ATTACHED MILK TANKER DRIVER: No RADIOLOGY DEPARTMENT: General X-ray: Exam(s) Completed: Abdomen X-Ray: Abdomen with Upright PERIPHERAL IV DATA: Not applicable SIGNED BY: RT Alex(R) March 04, 2024 11:54 AM documented in this encounterFostoria [facility]05-30-2024 Telephone encounter Note * Telephone Encounter - Lucy Samuel RN - 03/04/2024 6:53 AM EDT Patient calling with request for information from office. Patient denies any new or worsening symptoms of which a provider is not aware: Yes. Informed patient that her PCP ordered an abdominal x-ray and she can go to any location to get that done. Advised to also follow up with office after x-ray is completed. GO TO THE EMERGENCY ROOM OR CALL 911 IF: * You develop any new symptoms * Your condition worsens * You are concerned or anxious about your condition for any other reason. If you have any questions, you can call Nurse pest control operator back. [facility] Miscellaneous Notes* Telephone Encounter - Lucy Samuel RN - 03/04/2024 6:53 AM EDT Patient calling with request for information from office. Patient denies any new or worsening symptoms of which a provider is not aware: Yes. Informed patient that her PCP ordered an abdominal x-ray and she can go to any location to get that done. Advised to also follow up with office after x-ray is completed. GO TO THE EMERGENCY ROOM OR CALL 911 IF: * You develop any new symptoms * Your condition worsens * You are concerned or anxious about your condition for any other reason. If you have any questions, you can call Nurse pest control operator back. documented in this encounterFostoria [facility]05-29-2024 Telephone encounter Note * Telephone Encounter - Romel Michelle MD - 03/03/2024 8:19 PM EDT Start with Xray abdomen to determine whether issue is a lot of gas or stool or both. Ordered If that test not helpful, consider CT abdomen and pelvis. If at any time gets more severe and persistent pain, recommend ER evaluation so they can do stat imaging. [facility]-28[facility] Telephone encounter Note* Telephone Encounter - Alyse Alexandra LPN - 03/02/2024 2:19 PM EDT Last OV: 02/24/24 Pt reports she saw pcp last week for stomach issues. Pt reports the bloating seems worse and today feels like it is moving more towards the top of her abdomen. Pt reports at OV provider had said thatif sx worsened or did not get better that there was testing that could be done. Pt is asking what kind of testing would that be. Please review and advise. Alyse Alexandra LPN [facility] History of Present illness Narrative* Romel Michelle MD - 02/24/2024 7:00 PM EDT This note was created using Socializrriter. Subjective Sal Bautista is a 73 year old female. Patient presents with: Established Patient: Change in IBS SUBJECTIVE: Sal Bautista is a 73 year old year old lady here today for same day appointment for review of medical condition: IBS. GasX helped after tried. Was taking just once daily as needed. Bowels can go back and forth diarrhea and constipation Feels like when really distended. Started citrucel but caused her vomiting. Oatmeal caused vomiting. Has not tried again. 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 Take with a full glass of water, on an empty stomach; do NOT lie down for 30minutes. dicyclomine (BENTYL) 10 mg capsule Take 1 or 2 before meals, as needed. Cholecalciferol, Vitamin D3, 50 mcg (2,000 unit) cap Take 1 capsule by mouth once daily. Loperamide HCl (ANTI-DIARRHEAL) 2 mg tab Take 1 tablet by mouth as needed. Methylcellulose, Laxative, 500 mg tab Take 1 tablet by mouth once daily. No current facility-administered medications for this visit. Review of Systems Constitutional: Negative for chills and fever. Gastrointestinal: No vomiting except after eating oatmeal Objective BP 124/76 Pulse 80 Temp 36.9 C (98.4 F) Resp 18 Wt 56.7 kg (125 lb) SpO2 100% BMI 20.76kg/m Physical Exam Eyes: Conjunctiva/sclera: Conjunctivae normal. Pulmonary: Effort: Pulmonary effort is normal. Abdominal: General: Bowel sounds are normal. There is distension (gassy). Palpations: Abdomen is soft. There is no mass. Tenderness: There is abdominal tenderness (mild). There is no guarding or rebound. Hernia: No hernia is present. Musculoskeletal: Right lower leg: No edema. Left lower leg: No edema. Neurological: Mental Status: She is alert. Assessment and Plan Encounter Diagnosis ICD-10-CM 1. Abdominal distension (gaseous) R14.0 Bowels distended with gas on exam 2. Irritable bowel syndrome with both constipation and diarrhea K58.2 dicyclomine (BENTYL) 10 mg capsule Noted history of IBS, but has not had this much abdominal bloating and distension before Start with abdominal Xrays to see if obvious constipation issue as well as evaluated gassy distension. Consider CT abdomen/pelvis if not better with trying Gas X for decompression and bland diet till bowels are moving more regularly. Refer to GI or general surgery as indicated for endoscopy, etc. To ER if develop red flag symptoms, such as severe pain, intractable nausea or vomiting, fevers or chills. I spent a total of 30 minutes on the date of the service which included preparing to see the patient, [id number] patient care, completing clinical documentation, obtaining and/or reviewing separately obtained history, performing a medically appropriate examination, counseling and educating the pat ient/family/caregiver, and ordering medications, tests, or procedures. Romel Michelle MD documented in this encounterFostoria [facility] Hospital09-12-2023 Miscellaneous Notes* Telephone Encounter - Tory Valenzuela MA - 06/17/2023 3:37 PM EDT Patient has been identified by name and date of : Yes Requested Prescriptions Pending Prescriptions Disp Refills dicyclomine (BENTYL) 10 mg capsule 120 capsule 5 Sig: Take 1 or 2 before meals, as needed. RX INSTRUCTIONS: Patient aware RX will be sent to pharmacy. No need to notify patient. Patient last office visit: 06/28/22 Patient next office visit: 07/15/23 Tory Valenzuela MA documented in this encounterFostoria City Hospital01-26-2023 History of Present illness Narrative* Nuria Pat APRN.DELFINO - 10/31/2022 8:26 AM EST Subjective The history is provided by the patient. No american sign language interpreter was used. HPI Sal Bautista is a 72 year old female who presents today for CC of nasal pressure, congestion, sinus pain, headache, and ear pressure for 7 days. She has used mucinex and tylenol with short term relief. BP 138/82 Pulse 95 Temp 36.3 C (97.4 F) Resp 21 Wt 61 kg (134 lb 6.4 oz) SpO2 100% BMI 21.86 kg/m Social History Tobacco Use Smoking status: Never Smokeless tobacco: Never Substance Use Topics Alcohol use: Yes Comment: social Drug use: No PAST MEDICAL HISTORY Diagnosis Date Actinic keratosis 07/05/2008 LEYVA ANGIOMA///NEVUS, NON-NEOPLASTIC 07/05/2008 Family history of osteoporosis 05/06/2008 Irritable bowel syndrome Osteopenia Other chronic dermatitis due to solar radiation 07/05/2008 Other seborrheic keratosis 05/06/2008 SOLAR LENGINES///DYSCHROMIA OTHER 07/05/2008 I have confirmed and edited as necessary, the [facility] Review of Systems Constitutional: Negative for chills and fever. HENT: Positive for congestion, ear pain and sinus pain. Negative for sore throat. Respiratory: Negative for cough, sputum production, shortness of breath and wheezing. Cardiovascular: Negative for chest pain. Musculoskeletal: Negative for myalgias. Neurological: Positive for headaches. Objective Physical Exam Vitals and nursing note reviewed. HENT: Head: Normocephalic and atraumatic. Right Ear: Ear canal and external ear normal. A middle ear effusion is present. Tympanic membrane is bulging. Left Ear: Ear canal and external ear normal. A middle ear effusion is present. Nose: Mucosal edema, congestion and rhinorrhea present. Right Sinus: No maxillary sinus tenderness or frontal sinus tenderness. Left Sinus: No maxillary sinus tenderness or frontal sinus tenderness. Mouth/Throat: Pharynx: Uvula midline. No oropharyngeal exudate or posterior oropharyngeal erythema. Cardiovascular: Rate and Rhythm: Normal rate and regular rhythm. Heart sounds: Normal heart sounds. Pulmonary: Effort: Pulmonary effort is normal. Breath sounds: Normal breath sounds. Lymphadenopathy: Head: Right side of head: No submental, submandibular or tonsillar adenopathy. Left side of head: No submental, submandibular or tonsillar adenopathy. Cervical: No cervical adenopathy. Skin: General: Skin is warm and dry. Neurological: Mental Status: She is alert. Psychiatric: Mood and Affect: Affect normal. ASSESSMENT/PLAN: 1. Dysfunction of both eustachian tubes - ICD9: 381.81, ICD10: H69.83 (primary diagnosis) Flonase, zyrtec 2. URI with cough and congestion - ICD9: 465.9, ICD10: J06.9 - Discussed viral etiology and rationale for treatment. - Symptomatic treatment with prn analgesia - Supportive care with fluids and rest - Declines testing Diagnosis and treatment plan were discussed and questions were answered to the patient's satisfaction. Pt acknowledged understanding of concepts and follow up plan. Specific signs and symptoms that would indicate the need for higher level of care were discussed indetail warranting prompt ER evaluation. Nuria Pat APRN.CNP documented in this encounterFostoria City Hospital01-26-2023 Instructions* Patient Instructions* Nuria Pat APRN.CNP - 10/31/2022 8:26 AM EST Flonase 2 sprays in each nostril once a day Zyrtec (cetirizine) 10 mg By mouth daily at bedtime To get the best results when using a Nasal Steroid, do the following: Tilt your head down, bringing your chin closer to your chest Insert the nozzle of the medication bottle inside the nostril and direct it towards the outside, away from the middle of the nose. Your sinus openings are at the outside of the nose. Pump or activate the spray and lightly or slowly sniff air up into that nostril. Do not sniff hard or fast as you will pull the medication through the nose to the back of the throat where you will taste it and it does no good. If some medication drips out simply sniff in a little more or wipe it away Repeat this process on the other side. documented in this encounterFostoria City Hospital09-23-2022 History of Present illness Narrative* Romel Michelle MD - 06/28/2022 8:50 AM EDT This note was created using Socializrriter. Subjective Sal Bautista is a 72 year old female. HISTORY Sal Bautista is a 72 year old lady here for yearly exam and follow up appointment. Keeping tinea at bay. Ketoconazole helped. Discussed osteoporosis. Does gardening, Gets mammograms [facility] and already scheduled. Will get flu shot in July. Plans to get at pharmacy. Had COVID this past summer, and was mild. Noted a daughter lives in [place]. Depression Screening 06/15/2019 06/26/2021 06/28/2022 PHQ-2 Score 0 0 0 PHQ-9 Score - 0 - Depression screening tool completed and reviewed. Based on score and interview, patient is not at risk for depression. Screening tool discussed with patient, and I recommended no further interventionat this time. PAST MEDICAL HISTORY Diagnosis Date Actinic keratosis 07/05/2008 LEYVA ANGIOMA///NEVUS, NON-NEOPLASTIC 07/05/2008 Family history of osteoporosis 05/06/2008 Irritable bowel syndrome Osteopenia Other chronic dermatitis due to solar radiation 07/05/2008 Other seborrheic keratosis 05/06/2008 SOLAR LENGINES///DYSCHROMIA OTHER 07/05/2008 Current Outpatient Medications Medication Sig ketoconazole (NIZORAL) 2 % cream Apply 1 application to affected area twice daily. Continue until 1week after rash resolves dicyclomine (BENTYL) 10 mg capsule Take 1 or 2 before meals, as needed. Loperamide HCl (ANTI-DIARRHEAL) 2 mg tab Take 1 tablet by mouth as needed. Methylcellulose, Laxative, 500 mg tab Take 1 tablet by mouth once daily. ergocalciferol, Vitamin D2, (DRISDOL) 400 unit cap Take 1 capsule by mouth once daily. No current facility-administered medications for this visit. ALLERGIES No Known Allergies FAMILY HISTORY Problem Relation Age of Onset None Mother None Father Breast Cancer Maternal Aunt Social History Tobacco Use Smoking status: Never Smokeless tobacco: Never Substance Use Topics Alcohol use: Yes Comment: social Drug use: No Review of Systems Objective BP 128/76 Pulse 64 Temp 36.4 C (97.5 F) (Temporal) Resp 16 Ht 167 cm (5' 5.75) Wt 59.6 kg (131 lb 6.4 oz) SpO2 100% BMI 21.37 kg/m Last 5 Encounter Wt Readings: Date: Wt: 06/28/2022 59.6 kg (131 lb 6.4 oz) 06/26/2021 56.2 kg (124 lb) 06/20/2020 57.2 kg (126 lb) 06/15/2019 56.7 kg (125 lb) 01/19/2018 56.7 kg (125 lb) No waist measurement recorded Estimated body mass index is 21.37 kg/m as calculated from the following: Height as of this encounter: 167 cm (5' 5.75). Weight as of this encounter: 59.6 kg (131 lb 6.4 oz). Last 5 Encounter BP Readings: Date: BP: 06/28/2022 128/76 06/26/2021 124/62 06/20/2020 108/64 06/15/2019 114/72 01/19/2018 100/80 Physical Exam Vitals reviewed. Constitutional: Appearance: She is well-developed. HENT: Head: Normocephalic and atraumatic. Right Ear: Ear canal and external ear normal. Left Ear: Ear canal and external ear normal. Nose: Nose normal. Eyes: Conjunctiva/sclera: Conjunctivae normal. Neck: Thyroid: No thyromegaly. Cardiovascular: Rate and Rhythm: Normal rate and regular rhythm. Pulses: Normal pulses. Heart sounds: Normal heart sounds. No murmur heard. No friction rub. No gallop. Pulmonary: Effort: Pulmonary effort is normal. Breath sounds: Normal breath sounds. Abdominal: General: Bowel sounds are normal. There is no distension. Palpations: Abdomen is soft. There is no mass. Tenderness: There is no abdominal tenderness. Musculoskeletal: General: No deformity. Normal range of motion. Lymphadenopathy: Cervical: No cervical adenopathy. Skin: General: Skin is warm and dry. Coloration: Skin is not jaundiced or pale. Findings: No rash. Neurological: General: No focal deficit present. Mental Status: She is alert and oriented to person, place, and time. Cranial Nerves: No cranial nerve deficit. Sensory: No sensory deficit. Motor: No abnormal muscle tone. Coordination: Coordination normal. Deep Tendon Reflexes: Reflexes normal. Psychiatric: Mood and Affect: Mood normal. Behavior: Behavior normal. Thought Content: Thought content normal. Judgment: Judgment normal. Component Latest Ref Rng & Units 11/15/2015 06/15/2019 06/25/2022 WBC 3.70 - 11.00 k/uL 5.19 3.80 5.46 RBC 3.90 - 5.20 m/uL 4.22 4.46 4.16 Hemoglobin 11.5 - 15.5 g/dL 12.2 12.7 12.0 Hematocrit 36.0 - 46.0 % 35.9 (L) 39.9 36.2 MCV 80.0 - 100.0 fL 85.1 89.5 87.0 MCH 26.0 - 34.0 pg 28.9 28.5 28.8 MCHC 30.5 - 36.0 g/dL 34.0 31.8 33.1 RDW-CV 11.5 - 15.0 % 13.5 13.0 14.1 Platelet Count 150 - 400 k/uL 234 224 216 MPV 9.0 - 12.7 fL 11.3 11.2 10.2 Neut% % 65.7 Abs Neut (ANC) 1.45 - 7.50 k/uL 3.41 Lymph% % 23.7 Abs Lymph 1.00 - 4.00 k/uL 1.23 Bristol% % 7.7 Abs Bristol 0.00 - 0.86 k/uL 0.40 Eosin% % 2.5 Abs Eosin 0.00 - 0.45 k/uL 0.13 Baso% % 0.4 Abs Baso 0.00 - 0.10 k/uL 0.02 Diff Type Auto Diff Protein, Total 6.3 - 8.0 g/dL 6.6 7.2 6.5 Albumin 3.9 - 4.9 g/dL 4.4 4.7 4.6 Calcium 8.5 - 10.2 mg/dL 9.2 10.1 9.5 Bilirubin, Total 0.2 - 1.3 mg/dL 0.2 0.4 0.3 Alkaline Phosphatase 34 - 123 U/L 51 65 96 AST 13 - 35 U/L 13 22 17 Glucose 74 - 99 mg/dL 82 87 104 (H) BUN 7 - 21 mg/dL 9 11 16 Creatinine 0.58 - 0.96 mg/dL 0.77 0.87 0.82 Sodium 136 - 144 mmol/L 133 144 139 Potassium 3.7 - 5.1 mmol/L 3.7 4.1 3.9 Chloride 97 - 105 mmol/L 97 (L) 103 104 CO2 22 - 30 mmol/L 25 28 24 Anion Gap 9 - 18 mmol/L 11 13 11 ALT 7 - 38 U/L 11 15 13 eGFR- >60 >60 eGFR-All Other Races . >60 >60 eGFR >=60 mL/min/1.73m 77 Absolute nRBC <0.01 k/uL <0.01 <0.01 Cholesterol, Total <200 mg/dL 174 Triglyceride <150 mg/dL 65 HDL Cholesterol >39 mg/dL 63 LDL Cholesterol <100 mg/dL 98 Non HDL Cholesterol <130 mg/dL 111 Fasting Time hrs 12 VLDL Cholesterol <30 mg/dL 13 TC:HDL Ratio <5.10 2.76 LDL:HDL Ratio <2.54 1.56 IgA 78 - 391 mg/dL 143 Transglutaminase Ab, IgA <20 Units 3 Interpretation (Celiac Screen) No serologic evidence of celiac disease. No serologic evidence of celiac disease. TSH 0.400 - 5.500 uU/mL 1.780 WSR 0 - 15 mm/hr 9 Vitamin D 25 Hydroxy 31.0 - 80.0 ng/mL 30.6 (L) 32.1 Hep C Antibody IA Negative Negative DATE OF EXAM: Jun 04 2022 8:52AM WRB 0804 - BD DXA - AXIAL SKELETON / PROCEDURE REASON: multiple diagnoses * * * * Physician Interpretation * * * * EXAM: DXA - AXIAL SKELETON HISTORY: Osteopenia, follow-up. Prior study: 06/22/2019. TECHNIQUE: Bone densitometry of lumbar spine and both hips performed on Hologic Discovery C bone densitometer. FINDINGS: LUMBAR SPINE: Bone mineral density (BMD) measured at L1-4 region of interest is 0.854 g/cm2. T-score = -1.8 Z-score = 0.4 Comments: There has been a 0.9% decrease in lumbar bone mineral density since the previous study. LEFT HIP: BMD measured at femoral neck region of interest is 0.556 g/cm2. T-score = -2.6 Z-score = -0.8 Comments: There has been a 3.7% decrease in left hip bone mineral density and 7.1% decrease at left femoral neck since the previous study in 2019. RIGHT HIP: BMD measured at femoral neck region of interest is 0.630 g/cm2. T-score = -2.0 Z-score = -0.2 Comments: There has been a 2.7% decrease in right hip bone mineral density since the previous study in 2019. IMPRESSION IMPRESSION: Diagnosis Based on BMD: OSTEOPOROSIS. Lowest T-score is -2.6 Assessment and Plan ASSESSMENT/PLAN: 1. Irritable bowel syndrome with diarrhea - ICD9: 564.1, ICD10: K58.0 (primary diagnosis) Doing well - DICYCLOMINE 10 MG CAPSULE 2. Age-related osteoporosis without current pathological fracture - ICD9: 733.01, ICD10: M81.0 - begin tx with alendronate (Fosamax) - Reviewed the need for Calcium and Vitamin D supplements and weight bearing exercise as tolerated - COMP METABOLIC PANEL - CBC - VITAMIN D 25 HYDROXY - COMP METABOLIC PANEL - CBC - VITAMIN D 25 HYDROXY 3. Encounter for long-term current use of medication - ICD9: V58.69, ICD10: Z79.899 - COMP METABOLIC PANEL - CBC - VITAMIN D 25 HYDROXY - COMP METABOLIC PANEL - CBC - VITAMIN D 25 HYDROXY Romel Michelle MD [facility] History of Present illness Narrative* RT Mamta(R) - 06/04/2022 8:30 AM EDT Radiology Service Progress Note PATIENT NAME: Sal Bautista DATE OF SERVICE: June 04, 2022 TIME: 8:33 AM PATIENT IDENTITY VERIFICATION COMPLETED USING TWO (2) IDENTIFIERS: Name and Date of confirmedby patient verbally. FALL SCREENING: Has the patient had 2 falls in the last year or 1 fall with injury or currently using an Ambulatory Assistive Device (Walker, Cane, Wheelchair, Crutches, etc.)? No PATIENT GENDER DATA: Female. status: : No status: NO. PATIENT RELEVANT IMPLANT DATA REVIEWED: Not Applicable RADIOLOGY DEPARTMENT: Bone Density PERIPHERAL IV DATA: Not applicable SIGNED BY: RT Mamta(R) June 04, 2022 8:33 AM documented in this encounterFostoria [facility]08-18-2022 Miscellaneous Notes* Telephone Encounter - Aixa Acosta LPN - 05/23/2022 9:21 AM EDT My chart message to pt. * Telephone Encounter - Romel Michelle MD - 05/22/2022 8:06 PM EDT Sounds like she still has signs of COVID infection and suspect that is why she is still testing positive even though it has been more than 10 days. There is not additional treatment for COVID at this time Monitor for signs of secondary bacterial infection--any signs of sinusitis? Bronchitis? May treat with usual OTC meds for symptom management. Follow up as needed to see if needs to be treated with antibiotic. Continue to isolate as long as having persistent symptoms that are not improving. She should make sure to start hydrated and eat healthy diet. * Telephone Encounter - Olesya Alvarez LPN - 05/20/2022 1:42 PM EDT Patient calling she did home COVID test 05/02 and was positive. She had symptoms of cold, sore throat, headache. She has been home testing herself and keeps getting positive testing. She said she is still quarantined. Patient said yesterday she had slight headache and post nasal drainage. Today she has scratchy throat and tested positive again. Patient is not taking anything otc. Patient uses [facility] for her pharmacy if needed. Patient asking what should she be doing and or taking to help? Please advise documented in this encounterFost[facility]03-23-2022 History of Present illness Narrative* Carey Lockhart Pss - 12/26/2021 10:37 AM EDT POPULATION HEALTH NAVIGATION OUTREACH Action/FYI: [employer] Care Gaps Discuss/Due: Advance Directives, Breast Cancer Screening due 06/28/22 or after Outcome: Left voicemail with my direct number and sent ClearFitt message Pt identified by name and : NO Outreach Outcome/Action Unable to reach patient: Left message MyChart message sent Reason for Outreach Care Gap or Scheduling/Wellness visits Payer: Payor: [employer] MEDICARE / Plan: [employer] MEDICARE PPO / Product Type: PPO / Care Gap Reviewed:: Breast Cancer screening Reminder: Reminder note to check Health Maintenance for items below Health Maintenance items due: COVID-19 VACCINE(3 - Booster for Moderna series) due on 06/05/2021 DTAP,TDAP,TD(2 - Td or Tdap) due on 08/14/2021 ADVANCE DIRECTIVE DISCUSSION Never done Message Sent to Practice: No Navigation Signature: Carey Lockhart Population Health Navigator December 26, 2021 10:37 AM documented in this encounterFost[facility]09-30-2008 History of Past illness Narrative* Problem Noted Date Resolved Date Sebaceous cyst 07/05/2008 11/16/2015 documented as of this encounter (statuses as of 12/26/2021) [facility] of Past illness Narrative* Problem Noted Date Resolved Date Sebaceous cyst 07/05/2008 11/16/2015 documented as of this encounter (statuses as of 06/05/2022) [address]30-2008 History of Past illness Narrative* Problem Noted Date Resolved Date Sebaceous cyst 07/05/2008 11/16/2015 documented as of this encounter (statuses as of 06/28/2022) [address]30-2008 History of Past illness Narrative* Problem Noted Date Resolved Date Sebaceous cyst 07/05/2008 11/16/2015 documented as of this encounter (statuses as of 06/28/2022) [facility] of Past illness Narrative* Problem Noted Date Resolved Date Sebaceous cyst 07/05/2008 11/16/2015 documented as of this encounter (statuses as of 08/19/2022) [address]30[address]2008 History of Past illness Narrative* Problem Noted Date Resolved Date Sebaceous cyst 07/05/2008 11/16/2015 documented as of this encounter (statuses as of 10/31/2022) [address]2008 History of Past illness Narrative* Problem Noted Date Diagnosed Date Resolved Date Sebaceous cyst 07/05/2008 11/16/2015 documented as of this encounter (statuses as of 06/18/2023) [address]2008 History of Past illness Narrative* Problem Noted Date Diagnosed Date Resolved Date Sebaceous cyst 07/05/2008 11/16/2015 documented as of this encounter (statuses as of 12/22/2023) [facility] HospitalConsult note Author Darryl Reeves [facility] Note Date/Time January 10, 2025 1:02 pm [facility] Medical Records Department [address] [place] [address] Anesthesia Postop Eval I 01/10/25 1301 MR#: [id number] Acct: [id number] Name: SAL BAUTISTA Rep #:[id number] : 1950 74 From: Darryl Reeves PCP: Dr. Romel Michelle MD Status:RE [facility] Race: C Location: [place] [address] Anesthesia: Postop Eval I Current Vital Signs Temperature: 97.1 F Pulse Rate: 64 Blood Pressure: 129/67 Respiratory Rate: 16 Pulse Ox: 99 Oxygen Delivery Method: Room Air Assessment Airway patent: Yes Spontaneous unlabored respirations: Yes Mental status: Asleep nausea: No Vomiting: No Anesthesia Complication: No Fluid Hydration Crystalloid volume administer (ml): 50 Total IV fluid infused: 50 Progress Note Anesthesia document: Postop Eval 1 completed: Yes 01/10/25 1302 <Electronically signed by Darryl Reeves > Date _ Darryl Lópezignadriana Signature: Date CC: ~ Signed [facility] Work Phone: Consult note Author Aquiles Durand [facility] Note Date/Time April 26, 2025 2:13 pm [facility] Medical Records Department [address] [place] [id number] Pre-Anesthesia Evaluation 04/26/25 1412 MR#: [id number] Acct: [id number] Name: SAL BAUTISTA Rep #:[id number] : 1950 75 From: Aquiles Calderon PCP: Dr. Romel Michelle MD Status: G [facility] [place] Race: C Location: [place] [address] ASA Classification* ASA Classification ASA Classification: 3 Assessment & Plan Anesthesia* Anesthesia Assessment Anesthesia Assessment: Discussed sedation and/or anesthesia options, risks, benefits, and alternatives with patient/parents/legal guardian/POA. Questions invited. The patient/parents/legal guardian/POA seems to understand and agrees to proceedwith anesthesia plan. Reviewed the physical assessment, medical history, allergy history and patient home medications list prior to surgery/procedure/anesthetic and documented any changes. Performed airway and anesthesia risk assessments. Anesthesia Type Anesthesia Type: MAC History Source History Obtained from:: Patient and Chart Anesthesia Focused Assessment* Temperature: 97.4 F Pulse Rate: 85 Blood Pressure: 110/69 Respiratory Rate: 18 Pulse Ox: 100 Oxygen Delivery Method: Room Air Airway Assessment Mouth opens: >3 cm Mallampati Score: II Teeth Condition: Intact Labs Anesthesia Preop lab: CBC WBC 6.6 K/mm3 (4.4-11.0) 09/07/15 08:00 09/07/15 RBC 4.88 M/mm3 (4.2-5.4) 09/07/15 08:00 09/07/15 Hgb 14.4 g/dl (12.0-15.0) 09/07/15 08:00 09/07/15 Hct 43.1 % (37-47) 09/07/15 08:00 09/07/15 Plt Count 231 K/mm3 (150-450) 09/07/15 08:00 09/07/15 CHEMISTRY Potassium 3.7 mmol/L (3.5-5.1) 09/07/15 08:00 09/07/15 Sodium 139 mmol/L (136-145) 09/07/15 08:00 09/07/15 BUN 18 mg/dL (7-18) 09/07/15 08:00 09/07/15 Creatinine 1.03 mg/dL (0.55-1.20) 09/07/15 08:00 09/07/15 Glucose 80 mg/dL (70-110) 09/07/15 08:00 09/07/15 COAG Pre-Assessment Diagnosis/Proposed Procedure Planned Operative Procedure(s): COLONOSCOPY Anesthesia History 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 When Was Last Pacemaker Check QUESTION #4 FULL TEXT: You/Your Family Experience fever (hyperthermia) with Anesthesia Any additional information?: No Last Oral Intake Last Oral intake: Last Oral Intake NPO since 11:00 04/26/25 13:45 Meds taken in AM with sips of No 04/26/25 13:45 water? 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 Female Yes 04/22/25 14:45 HX of Motion Sickness No 04/22/25 14:45 HX of N/V After Surgery No 04/22/25 14:45 Non-Smoker Yes 04/22/25 14:45 Duration of Surgery greater No 04/22/25 14:45 than 60 minutes Number of Risk Factors 2 04/22/25 14:45 PONV Score Moderate Risk 04/22/25 14:45 Any additional information?: No Height & Weight Height & Weight: Anesthesia: Height & Weight Height 5 ft 5 in 04/26/25 13:45 Weight: 55.9 kg 04/26/25 13:45 Body Mass Index (BMI) 20.5 04/26/25 13:45 Respiratory Assessment Respiratory Assessment - records section supervisor: Respiratory Tract Infection Hx - records section supervisor Hx Respiratory Tract Infection No 04/22/25 14:45 STOP Sleep Apnea STOP Sleep Apnea - records section supervisor: STOP Sleep Apnea - records section supervisor Hx Hypertension No 04/22/25 14:45 Hx Sleep Apnea No 04/22/25 14:45 CPAP BIPAP Do you snore loudly (louder No 04/22/25 14:45 than talking or can be heard Do you often feel tired/ No 04/22/25 14:45 fatigued/ sleepy during daytime? Has anyone observed you stop No 04/22/25 14:45 breathing during sleep? STOP Results Negative 04/22/25 14:45 QUESTION #5 FULL TEXT : Do you snore loudly (louder than talking or can be heard through closed doors)? 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 Specify any problems Hx of Preganancy in last 3 No 04/22/25 14:45 Months Nurse Filling Out Transfusion NAYANA 04/22/25 14:45 & Questions: Date: 04/22/25 04/22/25 14:45 Time: 14:48 04/22/25 14:45 Patient unable to answer at this time (ie. 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 Hx Now Gestational Age (in weeks): EDC: Hx Hx Para Hx Section SAB No 04/22/25 14:45 Active Medications Active Medications: Current Medications Generic Name Dose Route Start Last Admin Trade Name Freq PRN Reason Stop Dose Admin Lactated Ringer's 1,000 mls @ 15 mls/hr 04/26/25 13:30 04/26/25 13:54 IV 15 mls/hr .Q48H GEREMIAS Administration PFSH Medical History (Updated 04/22/25 @ 14:57 by Gracie Dimas) Alcohol use Arthritis History of flexible sigmoidoscopy History of chemotherapy Wears glasses Cancer Anemia History of IBS Non-smoker Ovarian cancer Blood in stool, nikki Home Medications ?Medication ?Instructions ?Recorded ?Last Taken ?Type loperamide 2 mg capsule 2 mg PO Q1-4H PRN loose stoo l 06/04/19 Unknown History dicyclomine 10 mg capsule 10 mg PO TID PRN Abdominal P ain 09/04/21 Unknown History ondansetron 8 mg disintegrating 8 mg PO Q8 PRN nausea/ vomiting 12/17/24 Unknown History tablet prochlorperazine maleate 10 mg 10 mg PO BID PRN nausea and 12/17/24 Unknown History tablet (Compazine) vomiting Allergy/AdvReac Type Severity Reaction Status Date / Time No Known Allergies Allergy Verified 04/26/25 13:43 Family History Father CAD (coronary artery disease) Mother No problems noted. Surgical History (Updated 03/01/25 @ 10:17 by KIRAN Hernández) History of reversal of ileostomy History of resection of small bowel Hx of colonoscopy H/O: hysterectomy Social History adopted: No current occupational status: unemployed Smoking Status: Never smoker alcohol intake: current alcohol intake frequency: holidays/special occasions only substance use type: does not use what type of physical activity do you participate in: walking frequency: 5-6 times per week seatbelt use: always do you feel safe at home: Yes additional social history: Spouse: Cliff Review of Systems (Anesthesia) ROS Narrative System reviewed and no additional complaints, except as documented. 04/26/25 1413 <Electronically signed by Aquiles Durand MD> Date _ Aquiles Durand MD [facility] Signature: Date CC: ~ Signed [facility] Work Phone: Consult note Author Darryl Reeves [facility] Note Date/Time April 26, 2025 3:40 pm [facility] Medical Records Department [address] [place] [address] Anesthesia Postop Eval I 04/26/25 1502 MR#: [id number] Acct: [id number] Name: SAL BAUTISTA Rep #:[id number] : 1950 75 From: Darryl Reeves PCP: Dr. Romel Michelle MD Status:RE G [facility] Y Race: C Location: [place] [address] Anesthesia: Postop Eval I Current Vital Signs Temperature: 98.4 F Pulse Rate: 78 Blood Pressure: 106/70 Respiratory Rate: 16 Pulse Ox: 100 Oxygen Delivery Method: Room Air Assessment Airway patent: Yes Spontaneous unlabored respirations: Yes Mental status: Asleep nausea: No Vomiting: No Anesthesia Complication: No Fluid Hydration Crystalloid volume administer (ml): 500 Total IV fluid infused: 500 Progress Note Anesthesia document: Postop Eval 1 completed: Yes 04/26/25 1502 <Electronically signed by Darryl Reeves > Date _ Darryl Lópezigner Signature: Date CC: ~ Signed [facility] Work Phone: Evaluation note* Diagnosis Osteopenia of both hips [facility] [place] [facility]* Diagnosis Irritable bowel syndrome with diarrhea- Primary Irritable bowel syndrome Age-related osteoporosis without current pathological fracture Senile osteoporosis Encounter for long-term current use of medication [facility] this [facility] [place] noteNo assessment information availableWNorwalk [facility] Work Phone: Evaluation note* Diagnosis Encounter for screening mammogram for breast cancer [facility] Diagnosis Dysfunction of both eustachian tubes- Primary Dysfunction of Eustachian tube URI with cough and congestion [facility]* Diagnosis Irritable bowel syndrome with diarrhea Irritable bowel syndrome [facility] Diagnosis Irritable bowel syndrome with diarrhea Irritable bowel syndrome [facility]* Diagnosis Generalized abdominal pain- Primary Abdominal pain, generalized Abdominal bloating Flatulence, eructation, and gas pain [facility] Diagnosis Generalized abdominal pain Abdominal pain, generalized Abdominal bloating Flatulence, eructation, and gas pain [facility]* Diagnosis Abdominal distension (gaseous)- Primary Flatulence, eructation, and gas pain Irritable bowel syndrome with both constipation and diarrhea [facility] Diagnosis Generalized abdominal pain- Primary Abdominal pain, generalized Abdominal bloating Flatulence, eructation, and gas pain Vitamin D deficiency Unspecified vitamin D deficiency [facility]* Diagnosis Generalized abdominal pain Abdominal pain, generalized Abdominal bloating Flatulence, eructation, and gas pain documented in this encounter [facility] note* Diagnosis Pelvic mass- Primary Abdominal or pelvic swelling, mass or lump, unspecified site Preop examination Preoperative examination, unspecified Pelvic mass Abdominal or pelvic swelling, mass or lump, unspecified site documented in this encounter [facility] note* Diagnosis Pelvic mass- Primary Abdominal or pelvic swelling, mass or lump, unspecified site Pre-op examination Preoperative examination, unspecified Pre-op evaluation- Primary Preoperative examination, unspecified Pelvic mass Abdominal or pelvic swelling, mass or lump, unspecified site documented in this encounter [facility] note* Diagnosis Educational circumstances- Primary Educational circumstance documented in this encounter [facility] note* Diagnosis Pelvic mass Abdominal or pelvic swelling, mass or lump, unspecified site documented in this encounter [facility] note* Diagnosis Pelvic mass- Primary Abdominal or pelvic swelling, mass or lump, unspecified site documented in this encounter [facility] note* Diagnosis Pelvic mass- Primary Abdominal or pelvic swelling, mass or lump, unspecified site documented in this encounter [facility] note* Diagnosis Abdominal bloating- Primary Flatulence, eructation, and gas pain Pelvic mass Abdominal or pelvic swelling, mass or lump, unspecified site Pelvic mass Abdominal or pelvic swelling, mass or lump, unspecified site documented in this encounter [facility] note* Diagnosis Preoperative examination- Primary Preoperative examination, unspecified Irritable bowel syndrome with diarrhea Irritable bowel syndrome Other ascites Pelvic mass Abdominal or pelvic swelling, mass or lump, unspecified site * Assessment & Plan Note - Estefany Cash PA-C - 04/02/2024 3:52 PM EDTAssociated Problem(s): Other ascites Assessment: Noted on CT A/P 03/10/24. * Assessment & Plan Note - Estefany Cash PA-C - 04/02/2024 3:52 PM EDTAssociated Problem(s): Irritable bowel syndrome with diarrhea Assessment: Stable, manages sx with Bentyl and loperamide. documented in this encounter [facility] [place] [facility]* Diagnosis Post-operative state Other postprocedural status documented in this encounter [facility] [place] [facility]* Diagnosis High grade ovarian cancer (HCC)- Primary Abdominal bloating Flatulence, eructation, and gas pain Pelvic mass Abdominal or pelvic swelling, mass or lump, unspecified site documented in this encounter [facility] [place] [facility]* Diagnosis High grade ovarian cancer (HCC) documented in this encounter [facility] [place] [facility]* Diagnosis Encounter for education- Primary Counseling NOS documented in this encounter [facility] note* Diagnosis Severe protein-calorie malnutrition (HCC)- Primary Other severe protein-calorie malnutrition Inadequate nutrition Pelvic mass in female Abdominal or pelvic swelling, mass or lump, unspecified site documented in this encounter [facility] [place] [facility]* Diagnosis High grade ovarian cancer (HCC)- Primary [facility] [place] [facility] Diagnosis Gross hematuria- Primary documented in this encounter [facility] [place] [facility]* Diagnosis High grade ovarian cancer (HCC)- Primary Severe protein-calorie malnutrition (HCC) Other severe protein-calorie malnutrition documented in this encounter [facility] [place] [facility]* Diagnosis Severe protein-calorie malnutrition (HCC)- Primary Other severe protein-calorie malnutrition Inadequate nutrition High grade ovarian cancer (HCC) documented in this encounter [facility] [place] [facility]* Diagnosis High grade ovarian cancer (HCC)- Primary [facility] [place] [facility]* Diagnosis High grade ovarian cancer (HCC)- Primary [facility] [place] [facility]* Diagnosis Preoperative examination- Primary Preoperative examination, unspecified Irritable bowel syndrome with diarrhea Irritable bowel syndrome Other ascites High grade ovarian cancer (HCC)- Primary [facility] [place] [facility]* Diagnosis Preoperative examination- Primary Preoperative examination, unspecified Irritable bowel syndrome with diarrhea Irritable bowel syndrome Other ascites High grade ovarian cancer (HCC)- Primary [facility] [place] [facility]* Diagnosis Preoperative examination- Primary Preoperative examination, unspecified Irritable bowel syndrome with diarrhea Irritable bowel syndrome Other ascites High grade ovarian cancer (HCC) [facility] [place] [facility]* Diagnosis Preoperative examination- Primary Preoperative examination, unspecified Irritable bowel syndrome with diarrhea Irritable bowel syndrome Other ascites Severe protein-calorie malnutrition (HCC)- Primary Other severe protein-calorie malnutrition High grade ovarian cancer (HCC) Inadequate nutrition Irritable bowel syndrome with diarrhea Irritable bowel syndrome [facility] Diagnosis Preoperative examination- Primary Preoperative examination, unspecified Irritable bowel syndrome with diarrhea Irritable bowel syndrome Other ascites High grade ovarian cancer (HCC)- Primary Inadequate nutrition [facility] [place] [facility]* Diagnosis Preoperative examination- Primary Preoperative examination, unspecified Irritable bowel syndrome with diarrhea Irritable bowel syndrome Other ascites High grade ovarian cancer (HCC)- Primary [facility]* Diagnosis Preoperative examination- Primary Preoperative examination, unspecified Irritable bowel syndrome with diarrhea Irritable bowel syndrome Other ascites High grade ovarian cancer (HCC)- Primary Elevated cancer antigen 125 (CA-125) Elevated cancer antigen 125 [CA 125] [facility] [place] [facility]* Diagnosis Preoperative examination- Primary Preoperative examination, unspecified Irritable bowel syndrome with diarrhea Irritable bowel syndrome Other ascites High grade ovarian cancer (HCC)- Primary [facility] [place] [facility]* Diagnosis Preoperative examination- Primary Preoperative examination, unspecified Irritable bowel syndrome with diarrhea Irritable bowel syndrome Other ascites High grade ovarian cancer (HCC)- Primary Gross hematuria [facility] [place] [facility]* Diagnosis Preoperative examination- Primary Preoperative examination, unspecified Irritable bowel syndrome with diarrhea Irritable bowel syndrome Other ascites High grade ovarian cancer (HCC)- Primary [facility] [place] [facility]* Diagnosis Preoperative examination- Primary Preoperative examination, unspecified Irritable bowel syndrome with diarrhea Irritable bowel syndrome Other ascites High grade ovarian cancer (HCC)- Primary [facility]* Diagnosis Preoperative examination- Primary Preoperative examination, unspecified Irritable bowel syndrome with diarrhea Irritable bowel syndrome Other ascites Encounter for screening mammogram for breast cancer [facility] [place] [facility]* Diagnosis Preoperative examination- Primary Preoperative examination, unspecified Irritable bowel syndrome with diarrhea Irritable bowel syndrome Other ascites High grade ovarian cancer (HCC) [facility]* Diagnosis Preoperative examination- Primary Preoperative examination, unspecified Irritable bowel syndrome with diarrhea Irritable bowel syndrome Other ascites High grade ovarian cancer (HCC)- Primary Preop examination Preoperative examination, unspecified High grade ovarian cancer (HCC) [facility] Diagnosis Preoperative examination- Primary Preoperative examination, unspecified Irritable bowel syndrome with diarrhea Irritable bowel syndrome Other ascites Educational circumstances- Primary Educational circumstance High grade ovarian cancer (HCC) [facility] [place] [facility]* Diagnosis Preoperative examination- Primary Preoperative examination, unspecified Irritable bowel syndrome with diarrhea Irritable bowel syndrome Other ascites Pre-op evaluation- Primary Preoperative examination, unspecified Irritable bowel syndrome with diarrhea Irritable bowel syndrome High grade ovarian cancer (HCC) * Assessment & Plan Note - Nena Minor PA-C - 09/07/2024 9:41 AM EST Associated Problem(s): Irritable bowel syndrome with diarrhea Stable, manages sx with Bentyl and loperamide. [facility] [place] [facility]* Diagnosis Preoperative examination- Primary Preoperative examination, unspecified Irritable bowel syndrome with diarrhea Irritable bowel syndrome Other ascites High grade ovarian cancer (HCC)- Primary Pre-op evaluation- Primary Preoperative examination, unspecified Irritable bowel syndrome with diarrhea Irritable bowel syndrome [facility] [place] [facility]* Diagnosis Preoperative examination- Primary Preoperative examination, unspecified Irritable bowel syndrome with diarrhea Irritable bowel syndrome Other ascites Pre-op evaluation- Primary Preoperative examination, unspecified Irritable bowel syndrome with diarrhea Irritable bowel syndrome High grade ovarian cancer (HCC)- Primary Elevated cancer antigen 125 (CA-125) Elevated cancer antigen 125 [CA 125] Postop check Follow-up examination, following unspecified surgery [facility] [place] [facility]* Diagnosis Preoperative examination- Primary Preoperative examination, unspecified Irritable bowel syndrome with diarrhea Irritable bowel syndrome Other ascites Pre-op evaluation- Primary Preoperative examination, unspecified Irritable bowel syndrome with diarrhea Irritable bowel syndrome Removal of dave- Primary Encounter for removal of sutures [facility] Diagnosis Preoperative examination- Primary Preoperative examination, unspecified Irritable bowel syndrome with diarrhea Irritable bowel syndrome Other ascites Pre-op evaluation- Primary Preoperative examination, unspecified Irritable bowel syndrome with diarrhea Irritable bowel syndrome Postop check- Primary Follow-up examination, following unspecified surgery Severe protein-calorie malnutrition (HCC) Other severe protein-calorie malnutrition [facility] Diagnosis Preoperative examination- Primary Preoperative examination, unspecified Irritable bowel syndrome with diarrhea Irritable bowel syndrome Other ascites Pre-op evaluation- Primary Preoperative examination, unspecified Irritable bowel syndrome with diarrhea Irritable bowel syndrome High grade ovarian cancer (HCC)- Primary [facility] [place] [facility]* Diagnosis Preoperative examination- Primary Preoperative examination, unspecified Irritable bowel syndrome with diarrhea Irritable bowel syndrome Other ascites Pre-op evaluation- Primary Preoperative examination, unspecified Irritable bowel syndrome with diarrhea Irritable bowel syndrome High grade ovarian cancer (HCC)- Primary [facility] [place] [facility]* Diagnosis Preoperative examination- Primary Preoperative examination, unspecified Irritable bowel syndrome with diarrhea Irritable bowel syndrome Other ascites Pre-op evaluation- Primary Preoperative examination, unspecified Irritable bowel syndrome with diarrhea Irritable bowel syndrome High grade ovarian cancer (HCC)- Primary [facility] [place] [facility]* Diagnosis Preoperative examination- Primary Preoperative examination, unspecified Irritable bowel syndrome with diarrhea Irritable bowel syndrome Other ascites Pre-op evaluation- Primary Preoperative examination, unspecified Irritable bowel syndrome with diarrhea Irritable bowel syndrome High grade ovarian cancer (HCC)- Primary [facility] [place] [facility]* Diagnosis Preoperative examination- Primary Preoperative examination, unspecified Irritable bowel syndrome with diarrhea Irritable bowel syndrome Other ascites Pre-op evaluation- Primary Preoperative examination, unspecified Irritable bowel syndrome with diarrhea Irritable bowel syndrome High grade ovarian cancer (HCC)- Primary [facility] [place] [facility]* Diagnosis Preoperative examination- Primary Preoperative examination, unspecified Irritable bowel syndrome with diarrhea Irritable bowel syndrome Other ascites Pre-op evaluation- Primary Preoperative examination, unspecified Irritable bowel syndrome with diarrhea Irritable bowel syndrome High grade ovarian cancer (HCC)- Primary Painless rectal bleeding [facility] [place] [facility]* Diagnosis Preoperative examination- Primary Preoperative examination, unspecified Irritable bowel syndrome with diarrhea Irritable bowel syndrome Other ascites Pre-op evaluation- Primary Preoperative examination, unspecified Irritable bowel syndrome with diarrhea Irritable bowel syndrome High grade ovarian cancer (HCC)- Primary [facility] [place] [facility]* Diagnosis Preoperative examination- Primary Preoperative examination, unspecified Irritable bowel syndrome with diarrhea Irritable bowel syndrome Other ascites Pre-op evaluation- Primary Preoperative examination, unspecified Irritable bowel syndrome with diarrhea Irritable bowel syndrome High grade ovarian cancer (HCC) documented [facility] [place] [facility]* Diagnosis Preoperative examination- Primary Preoperative examination, unspecified Irritable bowel syndrome with diarrhea Irritable bowel syndrome Other ascites Pre-op evaluation- Primary Preoperative examination, unspecified Irritable bowel syndrome with diarrhea Irritable bowel syndrome Encounter for education- Primary Counseling NOS documented in this encounter [facility] note* Diagnosis Preoperative examination- Primary Preoperative examination, unspecified Irritable bowel syndrome with diarrhea Irritable bowel syndrome Other ascites Pre-op evaluation- Primary Preoperative examination, unspecified Irritable bowel syndrome with diarrhea Irritable bowel syndrome High grade ovarian cancer (HCC)- Primary Ovarian cancer, bilateral (HCC) documented in this encounter [facility] note* Diagnosis Preoperative examination- Primary Preoperative examination, unspecified Irritable bowel syndrome with diarrhea Irritable bowel syndrome Other ascites Pre-op evaluation- Primary Preoperative examination, unspecified Irritable bowel syndrome with diarrhea Irritable bowel syndrome High grade ovarian cancer (HCC)- Primary documented in this encounter [facility] note* Diagnosis Preoperative examination- Primary Preoperative examination, unspecified Irritable bowel syndrome with diarrhea Irritable bowel syndrome Other ascites Pre-op evaluation- Primary Preoperative examination, unspecified Irritable bowel syndrome with diarrhea Irritable bowel syndrome High grade ovarian cancer (HCC)- Primary 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 loss Iron deficiency anemia secondary to blood loss (chronic) Anemia, unspecified type Iron malabsorption (HCC) Other specified intestinal malabsorption documented in this encounter [facility] note* Diagnosis Preoperative examination- Primary Preoperative examination, unspecified Irritable bowel syndrome with diarrhea Irritable bowel syndrome Other ascites Pre-op evaluation- Primary Preoperative examination, unspecified Irritable bowel syndrome with diarrhea Irritable bowel syndrome High grade ovarian cancer (HCC)- Primary documented in this encounter [facility] note* Diagnosis Preoperative examination- Primary Preoperative examination, unspecified Irritable bowel syndrome with diarrhea Irritable bowel syndrome Other ascites Pre-op evaluation- Primary Preoperative examination, unspecified Irritable bowel syndrome with diarrhea Irritable bowel syndrome Iron malabsorption (HCC)- Primary Other specified intestinal malabsorption 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 loss Iron deficiency anemia secondary to blood loss (chronic) documented in this encounter [facility] note* Diagnosis Preoperative examination- Primary Preoperative examination, unspecified Irritable bowel syndrome with diarrhea Irritable bowel syndrome Other ascites Pre-op evaluation- Primary Preoperative examination, unspecified Irritable bowel syndrome with diarrhea Irritable bowel syndrome Iron malabsorption (HCC)- Primary Other specified intestinal malabsorption 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 loss Iron deficiency anemia secondary to blood loss (chronic) [facility] [place] [facility]* Diagnosis Preoperative examination- Primary Preoperative examination, unspecified Irritable bowel syndrome with diarrhea Irritable bowel syndrome Other ascites Pre-op evaluation- Primary Preoperative examination, unspecified Irritable bowel syndrome with diarrhea Irritable bowel syndrome High grade ovarian cancer (HCC)- Primary [facility] [place] [facility]* Diagnosis Preoperative examination- Primary Preoperative examination, unspecified Irritable bowel syndrome with diarrhea Irritable bowel syndrome Other ascites Pre-op evaluation- Primary Preoperative examination, unspecified Irritable bowel syndrome with diarrhea Irritable bowel syndrome Iron malabsorption (HCC)- Primary Other specified intestinal malabsorption 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 loss Iron deficiency anemia secondary to blood loss (chronic) [facility] [place] [facility]* Diagnosis Preoperative examination- Primary Preoperative examination, unspecified Irritable bowel syndrome with diarrhea Irritable bowel syndrome Other ascites Pre-op evaluation- Primary Preoperative examination, unspecified Irritable bowel syndrome with diarrhea Irritable bowel syndrome Iron malabsorption (HCC)- Primary Other specified intestinal malabsorption 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 loss Iron deficiency anemia secondary to blood loss (chronic) [facility] [place] [facility]* Diagnosis Preoperative examination- Primary Preoperative examination, unspecified Irritable bowel syndrome with diarrhea Irritable bowel syndrome Other ascites Pre-op evaluation- Primary Preoperative examination, unspecified Irritable bowel syndrome with diarrhea Irritable bowel syndrome Iron malabsorption (HCC)- Primary Other specified intestinal malabsorption 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 loss Iron deficiency anemia secondary to blood loss (chronic) [facility] [place] [facility]* Diagnosis Preoperative examination- Primary Preoperative examination, unspecified Irritable bowel syndrome with diarrhea Irritable bowel syndrome Other ascites Pre-op evaluation- Primary Preoperative examination, unspecified Irritable bowel syndrome with diarrhea Irritable bowel syndrome High grade ovarian cancer (HCC)- Primary 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 loss Iron deficiency anemia secondary to blood loss (chronic) Iron malabsorption (HCC) Other specified intestinal malabsorption [facility] [place] [facility]* Diagnosis Preoperative examination- Primary Preoperative examination, unspecified Irritable bowel syndrome with diarrhea Irritable bowel syndrome Other ascites Pre-op evaluation- Primary Preoperative examination, unspecified Irritable bowel syndrome with diarrhea Irritable bowel syndrome High grade ovarian cancer (HCC)- Primary [facility] Author Ankur Colon [facility] Note Date/Time April 26, 2025 2:17 pm [facility] Medical Records Department [address] [place] [address] History & Physical Exam 04/26/25 1415 MR#: [id number] Acct: [id number] Name: SAL BAUTISTA Rep #:[id number] : 1950 75 From: Ankur Colon DO PCP: Dr. Romel Michelle MD Status:[facility] Location: [place] [address] HPI - General General Date of Admission: 04/26/25 Date of Service: 04/26/25 Chief Complaint: Rectal bleeding HPI Narrative SAL BAUTISTA, is a 75 F who presents with the chief complaint: rectal bleed She is recovering from ovarian cancer, a patient of . During her original abdominal surgery for tumor removal, she is unsure of exact date, the surgeon had placed an ileostomy due to friable intestinal tissue witnessed from possible cancer involvement in the bowel. She reports that she began to experience dark bloody stools and had referred her to for an investigative colonoscopy and then repeat sigmoidoscopy. referredher to for additional treatment options. She reports having a long history of IBS with mostly diarrhea and she relates some nausea and vomiting with it. She states that quite a bit of her abdominal complaints from IBS ended up being related to her ovarian cancer diagnosis. She denies difficulty chewing and swallowing, cough, throat clearing, nausea, heartburn, reflux, emesis, abdominal bloating, constipation, diarrhea, and hematochezia. She states that her original cancer doctor has me on 1/2 dosing of Miralax daily to keep thingssoft and moving. 12.21.24 Colonoscopy: Patent end-to-end colo-rectal anastomosis w/erythema and friable tissue; treated w/APC after failed clip applications. 01.10.25 Sigmoidoscopy: Descending colon rectal anastomosis with some friable tissue. Coagulation for hemostasis using argon plasma was successful. [facility] Medical History Alcohol use Arthritis History of flexible sigmoidoscopy History of chemotherapy Wears glasses Cancer Anemia History of IBS Non-smoker Ovarian cancer Blood in stool, nikki Home Medications ?Medication ?Instructions ?Recorded ?Last Taken ?Type loperamide 2 mg capsule 2 mg PO Q1-4H PRN loose stoo l 06/04/19 Unknown History dicyclomine 10 mg capsule 10 mg PO TID PRN Abdominal P ain 09/04/21 Unknown History ondansetron 8 mg disintegrating 8 mg PO Q8 PRN nausea/ vomiting 12/17/24 Unknown History tablet prochlorperazine maleate 10 mg 10 mg PO BID PRN nausea and 12/17/24 Unknown History tablet (Compazine) vomiting Allergy/AdvReac Type Severity Reaction Status Date / Time No Known Allergies Allergy Verified 04/26/25 13:43 Family History Father CAD (coronary artery disease) Mother No problems noted. Surgical History History of reversal of ileostomy History of resection of small bowel Hx of colonoscopy H/O: hysterectomy Social History adopted: No current occupational status: unemployed Smoking Status: Never smoker alcohol intake: current alcohol intake frequency: holidays/special occasions only substance use type: does not use what type of physical activity do you participate in: walking frequency: 5-6 times per week seatbelt use: always do you feel safe at home: Yes additional social history: Spouse: Cliff BERMUDEZ Constitutional Constitutional: Denies fatigue, fever(s), poor appetite, weight gain or weight loss Gastrointestinal Gastrointestinal: Denies belching, bloating, change in bowel habits, change in stool character, chewing difficulty, coffee ground emesis, constipation, cramping, diarrhea, dyspepsia, dysphagia, early satiety, excessive flatus, fecalincontinence, heartburn, hematemesis, hematochezia, hemorrhoids, loose stools, melena, nausea, odynophagia, rectal bleeding, tenesmus, vomiting or weight changes Vital Signs Vital Signs Vital Signs: 04/26/25 13:45 04/26/25 13:45 04/26/25 14:13 Temperature 97.4 F L 97.4 F L Temperature Source Temporal Pulse Rate 85 85 Respiratory Rate 18 18 Respiratory Pattern Normal Blood Pressure 110/69 110/69 Blood Pressure Mean 82 Blood Pressure Source Monitor Blood Pressure Position Semi-Fowlers Blood Pressure Location Right Arm Pulse Ox 100 100 Oxygen Delivery Method Room Air Weight Weight: 123 lb 3.814 oz Body Mass Index (BMI) 20.5 Physical Exam Const alert, oriented x3 and average body habitus Resp normal respiratory effort, normal air movement and clear to auscultation bilaterally Cardio regular rate, regular rhythm, no murmurs and diaphoretic Assessment & Plan Assessment/Plan (1) History of reversal of ileostomy: (2) Blood in stool, nikki: PLAN: Assessment and Plan Assessment and Plan (1) Melena: Status: Acute (2) History of reversal of ileostomy: Status: Acute Plan SAL BAUTISTA, is a 74 F who presents to the office today for establishment withI regarding melena. Discussed care plan with her and her . Will review information with . Encourage them to schedule a colonoscopy date to hold it. * reviewed low FODMAP diet for IBS * schedule colonoscopy * office FU with results 04/26/25 1417 <Electronically signed by Ankur Colon DO> Cosigner Signature (if applicable): CC: Dr. Romel Michelle MD; Ankur Colon DO~ Signed [facility] Work Phone: Patient's home Plan of care note* Visit Details Visit Type -SN SOC Discipline -Fdc Problems Problem Description Start Date Status Goals Interve ntions Medication Education Disciplines: Skilled Services 04/15/2024 Active 1 goal linked to scheduled/document ed intervention 1 goal intervention scheduled/documente d in this visit Mental Health Disciplines: Skilled Services 04/15/2024 Active 1 goal linked to scheduled/document ed intervention 1 goal intervention scheduled/documente d in this visit Sepsis Disciplines: Skilled Services 04/15/2024 Active 1 goal linked to scheduled/document ed intervention 1 goal intervention scheduled/documente d in this visit Cancer Disciplines: Skilled Services 04/15/2024 Active 1 goal linked to scheduled/document ed intervention 1 goal intervention scheduled/documente d in this visit Physician Specific Parameters Disciplines: Skilled Services 04/15/2024 Active 1 goal linked to scheduled/document ed intervention 1 goal intervention scheduled/documente d in this visit Risk for Falls Disciplines: Skilled Services 04/15/2024 Active 1 goal linked to scheduled/document ed intervention 1 goal intervention scheduled/documente d in this visit Pain Disciplines: Skilled Services 04/15/2024 Active 1 goal linked to scheduled/document ed intervention 1 goal intervention scheduled/documente d in this visit Nutrition/Hydra tion Disciplines: Skilled Services 04/15/2024 Active 1 goal linked to scheduled/document ed intervention 1 goal intervention scheduled/documente d in this visit High Risk Medications Disciplines: Skilled Services 04/15/2024 Active 1 goal linked to scheduled/document ed intervention 2 goal interventions scheduled/documente d in this visit Discharge Disciplines: Skilled Services 04/15/2024 Active 1 goal linked to scheduled/document ed intervention 1 goal intervention scheduled/documente d in this visit Advance Directives Disciplines: Skilled Services 04/15/2024 Active 1 goal linked to scheduled/document ed intervention 1 goal intervention scheduled/documente d in this visit SN Edema Disciplines: SN 04/15/2024 Active 1 goal linked to scheduled/document ed intervention 1 goal intervention scheduled/documente d in this visit SN Integumentary/W ounds Disciplines: SN 04/15/2024 Active 1 goal linked to scheduled/document ed intervention 2 goal interventions scheduled/documente d in this visit SN Learning Assessment Disciplines: SN 04/15/2024 Active 1 goal linked to scheduled/document ed intervention 1 goal intervention scheduled/documente d in this visit SN Gastrointestina l Disciplines: 04/15/2024 Active 1 goal linked to scheduled/document ed intervention 2 goal interventions scheduled/documente d in this visit Goals Goal Associated Problem Outcome Goal Met? Visit Notes Patient/caregiver will demonstrate ability to obtain, store, identify and administer ordered medications, keep accurate medication list in home, and adhere to medication schedule Description: Patient/caregiver will demonstrate ability to obtain, store, identify and administer ordered medications, keep accurate medication list in home, and adhere to medication schedule by 06/13/24. Medication Education No Improved management of mental health condition(s) Description: Patient/caregiver will teach back mental health symptom identification and management techniques by 06/13/24. Mental Health No Patient/caregiver will be able to identify and report symptoms of sepsis Description: Patient/caregiver will be able to identify signs/symptoms of sepsis infection and will verbalize actions to take if suspected by 06/13/24. Sepsis No Improve symptom management of cancer and side effects of treatment Description: Patient/caregiver will verbalize understanding of cancer diagnosis, side effects of treatment, and management of symptoms by 06/13/24. Cancer No Patient to maintain parameters within physician-specified ranges throughout certification period Physician Specific Parameters No Manage Risk for falls Description: Patient/caregiver will verbalize knowledge of individualized fall prevention strategies by 06/13/24. Risk for Falls No Manage Pain Description: Patient/caregiver will verbalize knowledge and understanding of appropriate techniques to control pain, including pain medication and non-pharmacological techniques. Patient will verbalize or demonstrate an acceptable level of pain as evidenced by a pain score of <5/10 and improvement in ability to perform activities of daily living to be achieved by 06/13/24. Pain No Manage Nutrition/Hydration Description: Patient/caregiver will verbalize/demonstrate knowledge of prescribed diet and/or healthy nutrition to be achieved by 06/13/24. Nutrition/Hydration No Patient/caregiver will teach back high risk medication side effect and precaution education Description: STG Patient/caregiver will verbalize understanding of high risk medication side effects and precautions to be achieved by 05/05/24. LTG Patient/caregiver will continue to verbalize understanding of high risk medication side effects and precautions throughout certification period. High Risk Medications No Manage discharge planning Description: Patient/caregiver will verbalize understanding of ongoing discharge plan provided related to disease management, arrangements for outpatient and/or community services, obtaining medications, supplies, and DME, as needed throughout certification period. Discharge No Patient/caregiver will make healthcare providers aware of and any changes to Advance Directives throughout certification period Advance Directives No Patient will have improved edema management Description: Patient/caregiver will demonstrate an understanding of edema management strategies as evidenced by resolution or stabilization of edema by 05/29/24. SN Edema No Patient/Caregiver will have improved healing and be free of signs and symptoms of complications Description: Patient/caregiver will verbalize management strategies to promote wound healing & prevent complications as evidenced by improved healing & no complications by 05/29/24. SN Integumentary/Wounds No Demonstrate understanding of education Description: Patient and/or caregiver will verbalize understanding of educational instruction provided throughout certification period. SN Learning Assessment No Improved management of GI disease/condition Description: Patient/Caregiver will demonstrate understanding of GI education as evidenced by improved management of gastrointestinal disease/condition by 05/29/24. SN Gastrointestinal No Interventions Intervention Associated Problem/Goal Status Variance Visit Notes Medication Education Description: Evaluate/instruct patient/caregiver on obtaining, storing, identifying and administering ordered medications as well as keeping accurate medication list in the home and adhereing to medication schedule Problem:Medication Education Goal:Patient/caregiver will demonstrate ability to obtain, store, identify and administer ordered medications, keep accurate medication list in home, and adhere to medication schedule Completed Patient instructed on importance of keeping accurate medication list in home, need to take up-to-date medication list to all medical provider appointments, adhering to medication schedule, proper storage of medications and medication, route, dose, frequency, purpose, and side effects of all medications. Instruct on coping strategies Description: Instruct and support pt with methods to cope with new CA dx. Problem:Mental Health Goal:Improved management of mental health condition(s) Completed SN highly encouraged support from her family, adequate rest, encouraged normal activity as much as she is able. Risk of Sepsis Description: Patient is at risk for sepsis. Monitor closely for s/s of sepsis. Problem:Sepsis Goal:Patient/caregiver will be able to identify and report symptoms of sepsis Completed Instruct patient/caregiver on cancer diagnosis, side effects of treatment, and management of symptoms Description: Instruct patient/caregiver on pelvic cancer diagnosis, side effects of treatment and management of symptoms. Problem:Cancer Goal:Improve symptom management of cancer and side effects of treatment Completed Patient instructed on need to follow up with Dr Buckner on further direction. SPO2 Description: Notify Dr. Buckner if pulse ox is <92% at rest. Problem:Physician Specific Parameters Goal:Patient to maintain parameters within physician-specified ranges throughout certification period Completed Instruct on individual fall risk factors and strategies to prevent falls and injuries caused by falls. Problem:Risk for Falls Goal:Manage Risk for falls Completed SN: Patient instructed on Eliminating Environmental Hazards: Keep pathways clear, Keep pets out of pathways and Keep rooms and walkways well lit Managing Impaired Functional Mobility: Caregiver to provide assist with: Steps and ADL/IADLs Instruct on pain and instruct on strategies to control pain Problem:Pain Goal:Manage Pain Completed patient instructed on techniques to control pain including Pharmacological measures and Non-Pharmacological measures; rest, positioning/elevation, distraction and breathing/relaxation. Define patient s appetite/hydration status and implement strategies to improve compliance with prescribed diet and/or healthy nutrition. Problem:Nutrition/Hydr ation Goal:Manage Nutrition/Hydration Completed instructed patient and caregiver on implementing strategies to comply with prescribed diet, healthy nutrition and adequate hydration Opioids- educated on high risk medication Problem:High Risk Medications Goal:Patient/caregiver will teach back high risk medication side effect and precaution education Completed patient educated on taking medication(s) as prescribed by provider. Do not stop medication or alter doses without speaking with your provider. Discuss medication effectiveness or side effect concerns with your provider and home care team. Only take opioids as prescribed, do not share your medications, and take proper precautions in storing and properly disposing of opioids once no longer needed. Possible side effects of opioid medication including sedation, decreased rate of breathing, and constipation. Report over sedation to prescribing provider and practice deep breathing techniques every hour while awake. Prevent constipation by increasing water and fiber intake, increasing activity as tolerated, and use stool softener(s) as prescribed. Anticoagulant- educated on high risk medication Problem:High Risk Medications Goal:Patient/caregiver will teach back high risk medication side effect and precaution education Completed patient educated on anticoagulant medication eliquis Take your medication as instructed and at the same time each day. Do not stop medication or alter doses without speaking with your provider. Discuss medication effectiveness or side effect concerns with your provider and home care team. Discuss all medications you are taking, even [id number]-culwedy medicines, with your provider and pharmacist since many drugs can interact with anticoagulants. Tell anyone providing medical or dental care that you are taking an anticoagulant. DO NOT STOP your medication even for a minor procedure like dental work without first checking with the provider. If you forget to take a dose, DO NOT take a double dose. Take the missed dose as soon as possible on the same day. DO NOT take a double dose the next day to make up for the missed dose. Watch for signs of abnormal or excessive bleeding and bruising (refer to Bleeding Precautions education). Call your health care provider right away if you suspect something is wrong. Instruct on ongoing discharge plan Problem:Discharge Goal:Manage discharge planning Completed Ongoing Discharge plan: Discharge plan discussed with patient and caregiver including frequency and duration for home SN and plan for transition to: live independently at home without ongoing services. Determine patient's Advance Directive Status Description: Patient does have advance directives. Patient's Advance Directives determined to be available in Home Healthcare DPOA. Problem:Advance Directives Goal:Patient/caregiver will make healthcare providers aware of and any changes to Advance Directives throughout certification period Completed Discussed Advance Directives with Patient and/or Caregiver. Referred patient to Home Care handbook for further information on Healthcare DPOA & Living Will. Assess and instruct on measures to reduce edema Description: Pt to lay flat with legs outstretched and mildly elevated as able. Problem:SN Edema Goal:Patient will have improved edema management Completed patient instructed on elevation and benefits of activity. Instruct patient/caregiver healing process and management measures to promote healing and avoid complications Problem:SN Integumentary/Wounds Goal:Patient/Caregiver will have improved healing and be free of signs and symptoms of complications Completed patient instructed on the following: healing process, signs and symptoms of infection, importance of good nutrition and when to report symptoms. Instruct Patient/Caregiver on wound/incision care procedure as ordered by physician Description: Midline incision [employer]. Pt may shower, no soaking of wound in tub. Problem:SN Integumentary/Wounds Goal:Patient/Caregiver will have improved healing and be free of signs and symptoms of complications Completed patient instructed on wound care as ordered by Physician. Instruct and educate on knowledge deficits Problem:SN Learning Assessment Goal:Demonstrate understanding of education Completed patient and caregiver verbalize and/or demonstrate understanding of nursing education completed today. Education methods include: verbal cues, tactile cues, written instructions, visual cues and teach back. Further education required to improve knowledge and compliance with cancer care management, fall prevention/home safety strategies, gastrointestinal care management, incision/wound care management, medication management, nutrition, ostomy care management, pain management and surgical care precautions. Ostomy: Complete Pouch Change Description: Pouch to be changed: 2x a week and PRN. Pouch procedure: Remove old pouch, complete peristomal care, use skin prep, powder, paste, barrier ring, two piece and convex, adjust ostomy procedure as needed for leaking/fit complications. Problem:SN Gastrointestinal Goal:Improved management of GI disease/condition Completed Ostomy: Instruct Patient/Caregiver on Ostomy management Problem:SN Gastrointestinal Goal:Improved management of GI disease/condition Completed patient instructed on the following: emptying and rinsing pouch, pouch removal, pouch change, disposal of used pouch and appliance, peristomal skin care and ostomy precautions. [facility] Visit Details Visit Type -SN ROUTINE Discipline -Fdc Problems Problem Description Start Date Status Goals Interve ntions Medication Education Disciplines: Skilled Services 04/15/2024 Active 1 goal linked to scheduled/document ed intervention 1 goal intervention scheduled/documente d in this visit Mental Health Disciplines: Skilled Services 04/15/2024 Active 1 goal linked to scheduled/document ed intervention 1 goal intervention scheduled/documente d in this visit Sepsis Disciplines: Skilled Services 04/15/2024 Active 1 goal linked to scheduled/document ed intervention 1 goal intervention scheduled/documente d in this visit Cancer Disciplines: Skilled Services 04/15/2024 Active 1 goal linked to scheduled/document ed intervention 1 goal intervention scheduled/documente d in this visit Physician Specific Parameters Disciplines: Skilled Services 04/15/2024 Active 1 goal linked to scheduled/document ed intervention 1 goal intervention scheduled/documente d in this visit Risk for Falls Disciplines: Skilled Services 04/15/2024 Active 1 goal linked to scheduled/document ed intervention 1 goal intervention scheduled/documente d in this visit Pain Disciplines: Skilled Services 04/15/2024 Active 1 goal linked to scheduled/document ed intervention 1 goal intervention scheduled/documente d in this visit Nutrition/Hydra tion Disciplines: Skilled Services 04/15/2024 Active 1 goal linked to scheduled/document ed intervention 1 goal intervention scheduled/documente d in this visit High Risk Medications Disciplines: Skilled Services 04/15/2024 Active 1 goal linked to scheduled/document ed intervention 1 goal intervention scheduled/documente d in this visit Discharge Disciplines: Skilled Services 04/15/2024 Active 1 goal linked to scheduled/document ed intervention 1 goal intervention scheduled/documente d in this visit SN Edema Disciplines: SN 04/15/2024 Active 1 goal linked to scheduled/document ed intervention 1 goal intervention scheduled/documente d in this visit SN Integumentary/W ounds Disciplines: SN 04/15/2024 Active 1 goal linked to scheduled/document ed intervention 2 goal interventions scheduled/documente d in this visit SN Learning Assessment Disciplines: SN 04/15/2024 Active 1 goal linked to scheduled/document ed intervention 1 goal intervention scheduled/documente d in this visit SN Gastrointestina l Disciplines: SN 04/15/2024 Active 1 goal linked to scheduled/document ed intervention 2 goal interventions scheduled/documente d in this visit Goals Goal Associated Problem Outcome Goal Met? Visit Notes Patient/caregiver will demonstrate ability to obtain, store, identify and administer ordered medications, keep accurate medication list in home, and adhere to medication schedule Description: Patient/caregiver will demonstrate ability to obtain, store, identify and administer ordered medications, keep accurate medication list in home, and adhere to medication schedule by 06/13/24. Medication Education No Improved management of mental health condition(s) Description: Patient/caregiver will teach back mental health symptom identification and management techniques by 06/13/24. Mental Health No Patient/caregiver will be able to identify and report symptoms of sepsis Description: Patient/caregiver will be able to identify signs/symptoms of sepsis infection and will verbalize actions to take if suspected by 06/13/24. Sepsis No Improve symptom management of cancer and side effects of treatment Description: Patient/caregiver will verbalize understanding of cancer diagnosis, side effects of treatment, and management of symptoms by 06/13/24. Cancer No Patient to maintain parameters within physician-specified ranges throughout certification period Physician Specific Parameters No Manage Risk for falls Description: Patient/caregiver will verbalize knowledge of individualized fall prevention strategies by 06/13/24. Risk for Falls No Manage Pain Description: Patient/caregiver will verbalize knowledge and understanding of appropriate techniques to control pain, including pain medication and non-pharmacological techniques. Patient will verbalize or demonstrate an acceptable level of pain as evidenced by a pain score of <5/10 and improvement in ability to perform activities of daily living to be achieved by 06/13/24. Pain No Manage Nutrition/Hydration Description: Patient/caregiver will verbalize/demonstrate knowledge of prescribed diet and/or healthy nutrition to be achieved by 06/13/24. Nutrition/Hydration No Patient/caregiver will teach back high risk medication side effect and precaution education Description: STG Patient/caregiver will verbalize understanding of high risk medication side effects and precautions to be achieved by 05/05/24. LTG Patient/caregiver will continue to verbalize understanding of high risk medication side effects and precautions throughout certification period. High Risk Medications No Manage discharge planning Description: Patient/caregiver will verbalize understanding of ongoing discharge plan provided related to disease management, arrangements for outpatient and/or community services, obtaining medications, supplies, and DME, as needed throughout certification period. Discharge No Patient will have improved edema management Description: Patient/caregiver will demonstrate an understanding of edema management strategies as evidenced by resolution or stabilization of edema by 05/29/24. SN Edema No Patient/Caregiver will have improved healing and be free of signs and symptoms of complications Description: Patient/caregiver will verbalize management strategies to promote wound healing & prevent complications as evidenced by improved healing & no complications by 05/29/24. SN Integumentary/Wounds No Demonstrate understanding of education Description: Patient and/or caregiver will verbalize understanding of educational instruction provided throughout certification period. SN Learning Assessment No Improved management of GI disease/condition Description: Patient/Caregiver will demonstrate understanding of GI education as evidenced by improved management of gastrointestinal disease/condition by 05/29/24. SN Gastrointestinal No Interventions Intervention Associated Problem/Goal Status Variance Visit Notes Medication Education Description: Evaluate/instruct patient/caregiver on obtaining, storing, identifying and administering ordered medications as well as keeping accurate medication list in the home and adhereing to medication schedule Problem:Medication Education Goal:Patient/caregiver will demonstrate ability to obtain, store, identify and administer ordered medications, keep accurate medication list in home, and adhere to medication schedule Completed Patient instructed on adhering to medication schedule. Instruct on coping strategies Description: Instruct and support pt with methods to cope with new CA dx. Problem:Mental Health Goal:Improved management of mental health condition(s) Completed Encouraged support from family. Risk of Sepsis Description: Patient is at risk for sepsis. Monitor closely for s/s of sepsis. Problem:Sepsis Goal:Patient/caregiver will be able to identify and report symptoms of sepsis Completed Instruct patient/caregiver on cancer diagnosis, side effects of treatment, and management of symptoms Description: Instruct patient/caregiver on pelvic cancer diagnosis, side effects of treatment and management of symptoms. Problem:Cancer Goal:Improve symptom management of cancer and side effects of treatment Completed Patient instructed on chemotherapy precautions and side effects, management of treatment side effects and management of cancer symptoms. SPO2 Description: Notify Dr. Buckner if pulse ox is <92% at rest. Problem:Physician Specific Parameters Goal:Patient to maintain parameters within physician-specified ranges throughout certification period Completed Instruct on individual fall risk factors and strategies to prevent falls and injuries caused by falls. Problem:Risk for Falls Goal:Manage Risk for falls Completed SN: Patient instructed on Eliminating Environmental Hazards: Keep pathways clear and Keep pets out of pathways Instruct on pain and instruct on strategies to control pain Problem:Pain Goal:Manage Pain Completed patient instructed on techniques to control pain including Pharmacological measures and Non-Pharmacological measures; rest, positioning/elevation, mobility/therapeutic exercise and breathing/relaxation. Define patient s appetite/hydration status and implement strategies to improve compliance with prescribed diet and/or healthy nutrition. Problem:Nutrition/Hydr ation Goal:Manage Nutrition/Hydration Completed reinforced patient on implementing strategies to comply with prescribed diet, healthy nutrition and adequate hydration Anticoagulant- educated on high risk medication Problem:High Risk Medications Goal:Patient/caregiver will teach back high risk medication side effect and precaution education Completed patient educated on anticoagulant medication Eliquis Take your medication as instructed and at the same time each day. Do not stop medication or alter doses without speaking with your provider. Discuss medication effectiveness or side effect concerns with your provider and home care team. Discuss all medications you are taking, even [id number] medicines, with your provider and pharmacist since many drugs can interact with anticoagulants. Tell anyone providing medical or dental care that you are taking an anticoagulant. DO NOT STOP your medication even for a minor procedure like dental work without first checking with the provider. If you forget to take a dose, DO NOT take a double dose. Take the missed dose as soon as possible on the same day. DO NOT take a double dose the next day to make up for the missed dose. Watch for signs of abnormal or excessive bleeding and bruising (refer to Bleeding Precautions education). Call your health care provider right away if you suspect something is wrong. Instruct on ongoing discharge plan Problem:Discharge Goal:Manage discharge planning Completed Ongoing Discharge plan: Discharge plan discussed with patient including frequency and duration for home SN and plan for transition to: live independently at home without ongoing services. Assess and instruct on measures to reduce edema Description: Pt to lay flat with legs outstretched and mildly elevated as able. Problem:SN Edema Goal:Patient will have improved edema management Completed patient instructed on elevation and benefits of activity. Instruct patient/caregiver healing process and management measures to promote healing and avoid complications Problem:SN Integumentary/Wounds Goal:Patient/Caregiver will have improved healing and be free of signs and symptoms of complications Completed patient instructed on the following: healing process, signs and symptoms of infection, importance of good nutrition and when to report symptoms. Instruct Patient/Caregiver on wound/incision care procedure as ordered by physician Description: Midline incision [employer]. Pt may shower, no soaking of wound in tub. Problem:SN Integumentary/Wounds Goal:Patient/Caregiver will have improved healing and be free of signs and symptoms of complications Completed patient instructed on wound care as ordered by Physician. Instruct and educate on knowledge deficits Problem:SN Learning Assessment Goal:Demonstrate understanding of education Completed patient verbalize and/or demonstrate understanding of nursing education completed today. Education methods include: verbal cues, tactile cues, visual cues and teach back. Further education required to improve knowledge and compliance with cancer care management, fall prevention/home safety strategies, gastrointestinal care management, incision/wound care management, medication management, nutrition, ostomy care management, pain management and surgical care precautions. Ostomy: Complete Pouch Change Description: Pouch to be changed: 2x a week and PRN. Pouch procedure: Remove old pouch, complete peristomal care, use skin prep, powder, paste, barrier ring, two piece and convex, adjust ostomy procedure as needed for leaking/fit complications. Problem:SN Gastrointestinal Goal:Improved management of GI disease/condition Completed Ostomy: Instruct Patient/Caregiver on Ostomy management Problem:SN Gastrointestinal Goal:Improved management of GI disease/condition Completed patient instructed on the following: emptying and rinsing pouch, pouch removal, pouch change, disposal of used pouch and appliance, peristomal skin care and ostomy precautions. documented in this encounter [facility] home Plan of care note* Visit Details Visit Type -SN ROUTINE Discipline -Fdc Problems Problem Description Start Date Status Goals Interve ntions Medication Education Disciplines: Skilled Services 04/15/2024 Active 1 goal linked to scheduled/document ed intervention 1 goal intervention scheduled/documente d in this visit Mental Health Disciplines: Skilled Services 04/15/2024 Active 1 goal linked to scheduled/document ed intervention 1 goal intervention scheduled/documente d in this visit Sepsis Disciplines: Skilled Services 04/15/2024 Active 1 goal linked to scheduled/document ed intervention 1 goal intervention scheduled/documente d in this visit Cancer Disciplines: Skilled Services 04/15/2024 Active 1 goal linked to scheduled/document ed intervention 1 goal intervention scheduled/documente d in this visit Physician Specific Parameters Disciplines: Skilled Services 04/15/2024 Active 1 goal linked to scheduled/document ed intervention 1 goal intervention scheduled/documente d in this visit Risk for Falls Disciplines: Skilled Services 04/15/2024 Active 1 goal linked to scheduled/document ed intervention 1 goal intervention scheduled/documente d in this visit Pain Disciplines: Skilled Services 04/15/2024 Active 1 goal linked to scheduled/document ed intervention 1 goal intervention scheduled/documente d in this visit Nutrition/Hydra tion Disciplines: Skilled Services 04/15/2024 Active 1 goal linked to scheduled/document ed intervention 1 goal intervention scheduled/documente d in this visit High Risk Medications Disciplines: Skilled Services 04/15/2024 Active 1 goal linked to scheduled/document ed intervention 2 goal interventions scheduled/documente d in this visit Discharge Disciplines: Skilled Services 04/15/2024 Active 1 goal linked to scheduled/document ed intervention 1 goal intervention scheduled/documente d in this visit SN Edema Disciplines: 04/15/2024 Active 1 goal linked to scheduled/document ed intervention 1 goal intervention scheduled/documente d in this visit SN Integumentary/W ounds Disciplines: 04/15/2024 Active 1 goal linked to scheduled/document ed intervention 2 goal interventions scheduled/documente d in this visit SN Learning Assessment Disciplines: 04/15/2024 Active 1 goal linked to scheduled/document ed intervention 1 goal intervention scheduled/documente d in this visit SN Gastrointestina l Disciplines: 04/15/2024 Active 1 goal linked to scheduled/document ed intervention 2 goal interventions scheduled/documente d in this visit Goals Goal Associated Problem Outcome Goal Met? Visit Notes Patient/caregiver will demonstrate ability to obtain, store, identify and administer ordered medications, keep accurate medication list in home, and adhere to medication schedule Description: Patient/caregiver will demonstrate ability to obtain, store, identify and administer ordered medications, keep accurate medication list in home, and adhere to medication schedule by 06/13/24. Medication Education No Improved management of mental health condition(s) Description: Patient/caregiver will teach back mental health symptom identification and management techniques by 06/13/24. Mental Health No Patient/caregiver will be able to identify and report symptoms of sepsis Description: Patient/caregiver will be able to identify signs/symptoms of sepsis infection and will verbalize actions to take if suspected by 06/13/24. Sepsis No Improve symptom management of cancer and side effects of treatment Description: Patient/caregiver will verbalize understanding of cancer diagnosis, side effects of treatment, and management of symptoms by 06/13/24. Cancer No Patient to maintain parameters within physician-specified ranges throughout certification period Physician Specific Parameters No Manage Risk for falls Description: Patient/caregiver will verbalize knowledge of individualized fall prevention strategies by 06/13/24. Risk for Falls No Manage Pain Description: Patient/caregiver will verbalize knowledge and understanding of appropriate techniques to control pain, including pain medication and non-pharmacological techniques. Patient will verbalize or demonstrate an acceptable level of pain as evidenced by a pain score of <5/10 and improvement in ability to perform activities of daily living to be achieved by 06/13/24. Pain No Manage Nutrition/Hydration Description: Patient/caregiver will verbalize/demonstrate knowledge of prescribed diet and/or healthy nutrition to be achieved by 06/13/24. Nutrition/Hydration No Patient/caregiver will teach back high risk medication side effect and precaution education Description: STG Patient/caregiver will verbalize understanding of high risk medication side effects and precautions to be achieved by 05/05/24. LTG Patient/caregiver will continue to verbalize understanding of high risk medication side effects and precautions throughout certification period. High Risk Medications No Manage discharge planning Description: Patient/caregiver will verbalize understanding of ongoing discharge plan provided related to disease management, arrangements for outpatient and/or community services, obtaining medications, supplies, and DME, as needed throughout certification period. Discharge No Patient will have improved edema management Description: Patient/caregiver will demonstrate an understanding of edema management strategies as evidenced by resolution or stabilization of edema by 05/29/24. SN Edema No Patient/Caregiver will have improved healing and be free of signs and symptoms of complications Description: Patient/caregiver will verbalize management strategies to promote wound healing & prevent complications as evidenced by improved healing & no complications by 05/29/24. SN Integumentary/Wounds No Demonstrate understanding of education Description: Patient and/or caregiver will verbalize understanding of educational instruction provided throughout certification period. SN Learning Assessment No Improved management of GI disease/condition Description: Patient/Caregiver will demonstrate understanding of GI education as evidenced by improved management of gastrointestinal disease/condition by 05/29/24. SN Gastrointestinal No Interventions Intervention Associated Problem/Goal Status Variance Visit Notes Medication Education Description: Evaluate/instruct patient/caregiver on obtaining, storing, identifying and administering ordered medications as well as keeping accurate medication list in the home and adhereing to medication schedule Problem:Medication Education Goal:Patient/caregiver will demonstrate ability to obtain, store, identify and administer ordered medications, keep accurate medication list in home, and adhere to medication schedule Completed Patient instructed on importance of keeping accurate medication list in home, need to take up-to-date medication list to all medical provider appointments and adhering to medication schedule. Instruct on coping strategies Description: Instruct and support pt with methods to cope with new CA dx. Problem:Mental Health Goal:Improved management of mental health condition(s) Completed Risk of Sepsis Description: Patient is at risk for sepsis. Monitor closely for s/s of sepsis. Problem:Sepsis Goal:Patient/caregiver will be able to identify and report symptoms of sepsis Completed Instruct patient/caregiver on cancer diagnosis, side effects of treatment, and management of symptoms Description: Instruct patient/caregiver on pelvic cancer diagnosis, side effects of treatment and management of symptoms. Problem:Cancer Goal:Improve symptom management of cancer and side effects of treatment Completed Patient instructed on cancer disease process. SPO2 Description: Notify Dr. Buckner if pulse ox is <92% at rest. Problem:Physician Specific Parameters Goal:Patient to maintain parameters within physician-specified ranges throughout certification period Completed Instruct on individual fall risk factors and strategies to prevent falls and injuries caused by falls. Problem:Risk for Falls Goal:Manage Risk for falls Completed SN: Patient instructed on Eliminating Environmental Hazards: Keep pathways clear, Keep pets out of pathways and Remove unsafe rugs Instruct on pain and instruct on strategies to control pain Problem:Pain Goal:Manage Pain Completed patient instructed on techniques to control pain including Pharmacological measures. Define patient s appetite/hydration status and implement strategies to improve compliance with prescribed diet and/or healthy nutrition. Problem:Nutrition/Hydra tion Goal:Manage Nutrition/Hydration Completed instructed patient on implementing strategies to comply with healthy nutrition Opioids- educated on high risk medication Problem:High Risk Medications Goal:Patient/caregiver will teach back high risk medication side effect and precaution education Completed patient educated on taking medication(s) as prescribed by provider. Do not stop medication or alter doses without speaking with your provider. Discuss medication effectiveness or side effect concerns with your provider and home care team. Only take opioids as prescribed, do not share your medications, and take proper precautions in storing and properly disposing of opioids once no longer needed. Possible side effects of opioid medication including sedation, decreased rate of breathing, and constipation. Report over sedation to prescribing provider and practice deep breathing techniques every hour while awake. Prevent constipation by increasing water and fiber intake, increasing activity as tolerated, and use stool softener(s) as prescribed. Anticoagulant- educated on high risk medication Problem:High Risk Medications Goal:Patient/caregiver will teach back high risk medication side effect and precaution education Completed patient educated on anticoagulant medication tariq Take your medication as instructed and at the same time each day. Do not stop medication or alter doses without speaking with your provider. Discuss medication effectiveness or side effect concerns with your provider and home care team. Discuss all medications you are taking, even [id number] medicines, with your provider and pharmacist since many drugs can interact with anticoagulants. Tell anyone providing medical or dental care that you are taking an anticoagulant. DO NOT STOP your medication even for a minor procedure like dental work without first checking with the provider. If you forget to take a dose, DO NOT take a double dose. Take the missed dose as soon as possible on the same day. DO NOT take a double dose the next day to make up for the missed dose. Watch for signs of abnormal or excessive bleeding and bruising (refer to Bleeding Precautions education). Call your health care provider right away if you suspect something is wrong. Instruct on ongoing discharge plan Problem:Discharge Goal:Manage discharge planning Completed Ongoing Discharge plan: Discharge plan discussed with patient including frequency and duration for home SN and plan for transition to: live independently at home without ongoing services. Assess and instruct on measures to reduce edema Description: Pt to lay flat with legs outstretched and mildly elevated as able. Problem:SN Edema Goal:Patient will have improved edema management Completed patient instructed on elevation and compression. Instruct patient/caregiver healing process and management measures to promote healing and avoid complications Problem:SN Integumentary/Wounds Goal:Patient/Caregiver will have improved healing and be free of signs and symptoms of complications Completed patient instructed on the following: healing process, signs and symptoms of infection and importance of good nutrition. Instruct Patient/Caregiver on wound/incision care procedure as ordered by physician Description: Midline incision FORT[employer]. Pt may shower, no soaking of wound in tub. Problem:SN Integumentary/Wounds Goal:Patient/Caregiver will have improved healing and be free of signs and symptoms of complications Completed patient instructed on wound care as ordered by Physician. Instruct and educate on knowledge deficits Problem:SN Learning Assessment Goal:Demonstrate understanding of education Completed patient verbalize and/or demonstrate understanding of nursing education completed today. Education methods include: verbal cues and teach back. Further education required to improve knowledge and compliance with cancer care management. Ostomy: Complete Pouch Change Description: Pouch to be changed: 2x a week and PRN. Pouch procedure: Remove old pouch, complete peristomal care, use skin prep, powder, paste, barrier ring, two piece and convex, adjust ostomy procedure as needed for leaking/fit complications. Problem:SN Gastrointestinal Goal:Improved management of GI disease/condition Completed Ostomy: Instruct Patient/Caregiver on Ostomy management Problem:SN Gastrointestinal Goal:Improved management of GI disease/condition Completed patient instructed on the following: emptying and rinsing pouch, pouch removal, pouch change, disposal of used pouch and appliance and peristomal skin care. documented in this encounter [facility] home Plan of care note* Visit Details Visit Type -SN ROUTINE Discipline -Fdc Problems Problem Description Start Date Status Goals Interve ntions Medication Education Disciplines: Skilled Services 04/15/2024 Active 1 goal linked to scheduled/document ed intervention 1 goal intervention scheduled/document ed in this visit Mental Health Disciplines: Skilled Services 04/15/2024 Resolved on 04/26/2024 1 goal linked to scheduled/document ed intervention Sepsis Disciplines: Skilled Services 04/15/2024 Active 1 goal linked to scheduled/document ed intervention 1 goal intervention scheduled/document ed in this visit Cancer Disciplines: Skilled Services 04/15/2024 Active 1 goal linked to scheduled/document ed intervention 1 goal intervention scheduled/document ed in this visit Physician Specific Parameters Disciplines: Skilled Services 04/15/2024 Active 1 goal linked to scheduled/document ed intervention 1 goal intervention scheduled/document ed in this visit Risk for Falls Disciplines: Skilled Services 04/15/2024 Active 1 goal linked to scheduled/document ed intervention 1 goal intervention scheduled/document ed in this visit Pain Disciplines: Skilled Services 04/15/2024 Active 1 goal linked to scheduled/document ed intervention Nutrition/Hydr ation Disciplines: Skilled Services 04/15/2024 Active 1 goal linked to scheduled/document ed intervention 1 goal intervention scheduled/document ed in this visit High Risk Medications Disciplines: Skilled Services 04/15/2024 Resolved on 04/26/2024 1 goal linked to scheduled/document ed intervention 1 goal intervention scheduled/document ed in this visit SN Edema Disciplines: SN 04/15/2024 Resolved on 04/26/2024 1 goal linked to scheduled/document ed intervention SN Integumentary/ Wounds Disciplines: SN 04/15/2024 Active 1 goal linked to scheduled/document ed intervention 1 goal intervention scheduled/document ed in this visit SN Learning Assessment Disciplines: SN 04/15/2024 Active 1 goal linked to scheduled/document ed intervention 1 goal intervention scheduled/document ed in this visit SN Gastrointestin al Disciplines: 04/15/2024 Active 1 goal linked to scheduled/document ed intervention 2 goal interventions scheduled/document ed in this visit Goals Goal Associated Problem Outcome Goal Met? Visit Notes Patient/caregiver will demonstrate ability to obtain, store, identify and administer ordered medications, keep accurate medication list in home, and adhere to medication schedule Description: Patient/caregiver will demonstrate ability to obtain, store, identify and administer ordered medications, keep accurate medication list in home, and adhere to medication schedule by 06/13/24. Medication Education No Improved management of mental health condition(s) Description: Patient/caregiver will teach back mental health symptom identification and management techniques by 06/13/24. Mental Health Completed Yes Patient/caregiver will be able to identify and report symptoms of sepsis Description: Patient/caregiver will be able to identify signs/symptoms of sepsis infection and will verbalize actions to take if suspected by 06/13/24. Sepsis No Improve symptom management of cancer and side effects of treatment Description: Patient/caregiver will verbalize understanding of cancer diagnosis, side effects of treatment, and management of symptoms by 06/13/24. Cancer No Patient to maintain parameters within physician-specified ranges throughout certification period Physician Specific Parameters No Manage Risk for falls Description: Patient/caregiver will verbalize knowledge of individualized fall prevention strategies by 06/13/24. Risk for Falls No Manage Pain Description: Patient/caregiver will verbalize knowledge and understanding of appropriate techniques to control pain, including pain medication and non-pharmacological techniques. Patient will verbalize or demonstrate an acceptable level of pain as evidenced by a pain score of <5/10 and improvement in ability to perform activities of daily living to be achieved by 06/13/24. Pain In Progress No Manage Nutrition/Hydration Description: Patient/caregiver will verbalize/demonstrate knowledge of prescribed diet and/or healthy nutrition to be achieved by 06/13/24. Nutrition/Hydration In Progress No Patient/caregiver will teach back high risk medication side effect and precaution education Description: STG Patient/caregiver will verbalize understanding of high risk medication side effects and precautions to be achieved by 05/05/24. LTG Patient/caregiver will continue to verbalize understanding of high risk medication side effects and precautions throughout certification period. High Risk Medications Completed Yes Patient will have improved edema management Description: Patient/caregiver will demonstrate an understanding of edema management strategies as evidenced by resolution or stabilization of edema by 05/29/24. SN Edema Completed Yes Patient/Caregiver will have improved healing and be free of signs and symptoms of complications Description: Patient/caregiver will verbalize management strategies to promote wound healing & prevent complications as evidenced by improved healing & no complications by 05/29/24. SN Integumentary/Wounds No Demonstrate understanding of education Description: Patient and/or caregiver will verbalize understanding of educational instruction provided throughout certification period. SN Learning Assessment No Improved management of GI disease/condition Description: Patient/Caregiver will demonstrate understanding of GI education as evidenced by improved management of gastrointestinal disease/condition by 05/29/24. SN Gastrointestinal In Progress No Interventions Intervention Associated Problem/Goal Status Variance Visit Notes Medication Education Description: Evaluate/instruct patient/caregiver on obtaining, storing, identifying and administering ordered medications as well as keeping accurate medication list in the home and adhereing to medication schedule Problem:Medication Education Goal:Patient/caregiver will demonstrate ability to obtain, store, identify and administer ordered medications, keep accurate medication list in home, and adhere to medication schedule Completed Patient instructed on adhering to medication schedule. Risk of Sepsis Description: Patient is at risk for sepsis. Monitor closely for s/s of sepsis. Problem:Sepsis Goal:Patient/caregiver will be able to identify and report symptoms of sepsis Completed Instruct patient/caregiver on cancer diagnosis, side effects of treatment, and management of symptoms Description: Instruct patient/caregiver on pelvic cancer diagnosis, side effects of treatment and management of symptoms. Problem:Cancer Goal:Improve symptom management of cancer and side effects of treatment Completed Patient instructed on chemotherapy precautions and side effects. SPO2 Description: Notify Dr. Buckner if pulse ox is <92% at rest. Problem:Physician Specific Parameters Goal:Patient to maintain parameters within physician-specified ranges throughout certification period Completed Instruct on individual fall risk factors and strategies to prevent falls and injuries caused by falls. Problem:Risk for Falls Goal:Manage Risk for falls Completed SN: Patient instructed on Eliminating Environmental Hazards: Keep pathways clear and Keep rooms and walkways well lit Define patient s appetite/hydration status and implement strategies to improve compliance with prescribed diet and/or healthy nutrition. Problem:Nutrition/Hydr ation Goal:Manage Nutrition/Hydration Completed reinforced patient on implementing strategies to comply with prescribed diet, healthy nutrition and adequate hydration Anticoagulant- educated on high risk medication Problem:High Risk Medications Goal:Patient/caregiver will teach back high risk medication side effect and precaution education Completed patient educated on anticoagulant medication eliquis Take your medication as instructed and at the same time each day. Do not stop medication or alter doses without speaking with your provider. Discuss medication effectiveness or side effect concerns with your provider and home care team. Discuss all medications you are taking, even [id number] medicines, with your provider and pharmacist since many drugs can interact with anticoagulants. Tell anyone providing medical or dental care that you are taking an anticoagulant. DO NOT STOP your medication even for a minor procedure like dental work without first checking with the provider. If you forget to take a dose, DO NOT take a double dose. Take the missed dose as soon as possible on the same day. DO NOT take a double dose the next day to make up for the missed dose. Watch for signs of abnormal or excessive bleeding and bruising (refer to Bleeding Precautions education). Call your health care provider right away if you suspect something is wrong. Instruct Patient/Caregiver on wound/incision care procedure as ordered by physician Description: Midline incision FORTINO. Pt may shower, no soaking of wound in tub. Problem:SN Integumentary/Wounds Goal:Patient/Caregiver will have improved healing and be free of signs and symptoms of complications Completed patient instructed on wound care as ordered by Physician. Instruct and educate on knowledge deficits Problem:SN Learning Assessment Goal:Demonstrate understanding of education Completed patient verbalize and/or demonstrate understanding of nursing education completed today. Education methods include: verbal cues, tactile cues, visual cues and teach back. Further education required to improve knowledge and compliance with cancer care management, fall prevention/home safety strategies, gastrointestinal care management, incision/wound care management, medication management, nutrition, ostomy care management, pain management and surgical care precautions. Ostomy: Complete Pouch Change Description: Pouch to be changed: 2x a week and PRN. Pouch procedure: Remove old pouch, complete peristomal care, use skin prep, powder, paste, barrier ring, two piece and convex, adjust ostomy procedure as needed for leaking/fit complications. Problem:SN Gastrointestinal Goal:Improved management of GI disease/condition Completed Ostomy: Instruct Patient/Caregiver on Ostomy management Problem:SN Gastrointestinal Goal:Improved management of GI disease/condition Completed patient instructed on the following: pouch removal, pouch change, disposal of used pouch and appliance and peristomal skin care. documented in this encounter [facility] Plan of care note* Visit Details Visit Type -SN ROUTINE Discipline -Fdc Problems Problem Description Start Date Status Goals Interve ntions Medication Education Disciplines: Skilled Services 04/15/2024 Active 1 goal linked to scheduled/document ed intervention 1 goal intervention scheduled/documente d in this visit Sepsis Disciplines: Skilled Services 04/15/2024 Active 1 goal linked to scheduled/document ed intervention 1 goal intervention scheduled/documente d in this visit Cancer Disciplines: Skilled Services 04/15/2024 Active 1 goal linked to scheduled/document ed intervention 1 goal intervention scheduled/documente d in this visit Physician Specific Parameters Disciplines: Skilled Services 04/15/2024 Active 1 goal linked to scheduled/document ed intervention 1 goal intervention scheduled/documente d in this visit Nutrition/Hydra tion Disciplines: Skilled Services 04/15/2024 Active 1 goal linked to scheduled/document ed intervention 1 goal intervention scheduled/documente d in this visit SN Integumentary/W ounds Disciplines: 04/15/2024 Active 1 goal linked to scheduled/document ed intervention 1 goal intervention scheduled/documente d in this visit SN Learning Assessment Disciplines: 04/15/2024 Active 1 goal linked to scheduled/document ed intervention 1 goal intervention scheduled/documente d in this visit SN Gastrointestina l Disciplines: 04/15/2024 Active 1 goal linked to scheduled/document ed intervention 2 goal interventions scheduled/documente d in this visit Goals Goal Associated Problem Outcome Goal Met? Visit Notes Patient/caregiver will demonstrate ability to obtain, store, identify and administer ordered medications, keep accurate medication list in home, and adhere to medication schedule Description: Patient/caregiver will demonstrate ability to obtain, store, identify and administer ordered medications, keep accurate medication list in home, and adhere to medication schedule by 06/13/24. Medication Education No Patient/caregiver will be able to identify and report symptoms of sepsis Description: Patient/caregiver will be able to identify signs/symptoms of sepsis infection and will verbalize actions to take if suspected by 06/13/24. Sepsis No Improve symptom management of cancer and side effects of treatment Description: Patient/caregiver will verbalize understanding of cancer diagnosis, side effects of treatment, and management of symptoms by 06/13/24. Cancer No Patient to maintain parameters within physician-specified ranges throughout certification period Physician Specific Parameters No Manage Nutrition/Hydration Description: Patient/caregiver will verbalize/demonstrate knowledge of prescribed diet and/or healthy nutrition to be achieved by 06/13/24. Nutrition/Hydration No Patient/Caregiver will have improved healing and be free of signs and symptoms of complications Description: Patient/caregiver will verbalize management strategies to promote wound healing & prevent complications as evidenced by improved healing & no complications by 05/29/24. SN Integumentary/Wounds No Demonstrate understanding of education Description: Patient and/or caregiver will verbalize understanding of educational instruction provided throughout certification period. SN Learning Assessment No Improved management of GI disease/condition Description: Patient/Caregiver will demonstrate understanding of GI education as evidenced by improved management of gastrointestinal disease/condition by 05/29/24. SN Gastrointestinal No Interventions Intervention Associated Problem/Goal Status Variance Visit Notes Medication Education Description: Evaluate/instruct patient/caregiver on obtaining, storing, identifying and administering ordered medications as well as keeping accurate medication list in the home and adhereing to medication schedule Problem:Medication Education Goal:Patient/caregiver will demonstrate ability to obtain, store, identify and administer ordered medications, keep accurate medication list in home, and adhere to medication schedule Completed Patient instructed on adhering to medication schedule. Risk of Sepsis Description: Patient is at risk for sepsis. Monitor closely for s/s of sepsis. Problem:Sepsis Goal:Patient/caregiver will be able to identify and report symptoms of sepsis Completed Instruct patient/caregiver on cancer diagnosis, side effects of treatment, and management of symptoms Description: Instruct patient/caregiver on pelvic cancer diagnosis, side effects of treatment and management of symptoms. Problem:Cancer Goal:Improve symptom management of cancer and side effects of treatment Completed Patient instructed on chemotherapy precautions and side effects. SPO2 Description: Notify Dr. Buckner if pulse ox is <92% at rest. Problem:Physician Specific Parameters Goal:Patient to maintain parameters within physician-specified ranges throughout certification period Completed Define patient s appetite/hydration status and implement strategies to improve compliance with prescribed diet and/or healthy nutrition. Problem:Nutrition/Hydr ation Goal:Manage Nutrition/Hydration Completed reinforced patient on implementing strategies to comply with prescribed diet, healthy nutrition and adequate hydration Instruct Patient/Caregiver on wound/incision care procedure as ordered by physician Description: Midline incision [employer]. Pt may shower, no soaking of wound in tub. Problem:SN Integumentary/Wounds Goal:Patient/Caregiver will have improved healing and be free of signs and symptoms of complications Completed patient instructed on wound care as ordered by Physician. Instruct and educate on knowledge deficits Problem:SN Learning Assessment Goal:Demonstrate understanding of education Completed patient verbalize and/or demonstrate understanding of nursing education completed today. Education methods include: verbal cues, tactile cues, visual cues and teach back. Further education required to improve knowledge and compliance with cancer care management, fall prevention/home safety strategies, gastrointestinal care management, incision/wound care management, medication management, nutrition, ostomy care management, pain management and surgical care precautions. Ostomy: Complete Pouch Change Description: Pouch to be changed: 2x a week and PRN. Pouch procedure: Remove old pouch, complete peristomal care, use skin prep, powder, paste, barrier ring, two piece and convex, adjust ostomy procedure as needed for leaking/fit complications. Problem:SN Gastrointestinal Goal:Improved management of GI disease/condition Completed Ostomy: Instruct Patient/Caregiver on Ostomy management Problem:SN Gastrointestinal Goal:Improved management of GI disease/condition Completed patient instructed on the following: emptying and rinsing pouch, pouch removal, pouch change, disposal of used pouch and appliance, peristomal skin care and ostomy precautions. documented in this encounter [facility] home Plan of care note* Visit Details Visit Type -SN ROUTINE Discipline -Fdc Problems Problem Description Start Date Status Goals Interve ntions Medication Education Disciplines: Skilled Services 04/15/2024 Active 1 goal linked to scheduled/document ed intervention 1 goal intervention scheduled/documente d in this visit Sepsis Disciplines: Skilled Services 04/15/2024 Active 1 goal linked to scheduled/document ed intervention 1 goal intervention scheduled/documente d in this visit Physician Specific Parameters Disciplines: Skilled Services 04/15/2024 Active 1 goal linked to scheduled/document ed intervention 1 goal intervention scheduled/documente d in this visit Risk for Falls Disciplines: Skilled Services 04/15/2024 Active 1 goal linked to scheduled/document ed intervention 1 goal intervention scheduled/documente d in this visit Nutrition/Hydra tion Disciplines: Skilled Services 04/15/2024 Active 1 goal linked to scheduled/document ed intervention 1 goal intervention scheduled/documente d in this visit Discharge Disciplines: Skilled Services 04/15/2024 Active 1 goal linked to scheduled/document ed intervention 1 goal intervention scheduled/documente d in this visit SN Integumentary/W ounds Disciplines: SN 04/15/2024 Active 1 goal linked to scheduled/document ed intervention SN Learning Assessment Disciplines: SN 04/15/2024 Active 1 goal linked to scheduled/document ed intervention 1 goal intervention scheduled/documente d in this visit Gastroarnold dobson Disciplines: 04/15/2024 Active 1 goal linked to scheduled/document ed intervention 2 goal interventions scheduled/documente d in this visit Goals Goal Associated Problem Outcome Goal Met? Visit Notes Patient/caregiver will demonstrate ability to obtain, store, identify and administer ordered medications, keep accurate medication list in home, and adhere to medication schedule Description: Patient/caregiver will demonstrate ability to obtain, store, identify and administer ordered medications, keep accurate medication list in home, and adhere to medication schedule by 06/13/24. Medication Education No Patient/caregiver will be able to identify and report symptoms of sepsis Description: Patient/caregiver will be able to identify signs/symptoms of sepsis infection and will verbalize actions to take if suspected by 06/13/24. Sepsis No Patient to maintain parameters within physician-specified ranges throughout certification period Physician Specific Parameters No Manage Risk for falls Description: Patient/caregiver will verbalize knowledge of individualized fall prevention strategies by 06/13/24. Risk for Falls No Manage Nutrition/Hydration Description: Patient/caregiver will verbalize/demonstrate knowledge of prescribed diet and/or healthy nutrition to be achieved by 06/13/24. Nutrition/Hydration No Manage discharge planning Description: Patient/caregiver will verbalize understanding of ongoing discharge plan provided related to disease management, arrangements for outpatient and/or community services, obtaining medications, supplies, and DME, as needed throughout certification period. Discharge No Patient/Caregiver will have improved healing and be free of signs and symptoms of complications Description: Patient/caregiver will verbalize management strategies to promote wound healing & prevent complications as evidenced by improved healing & no complications by 05/29/24. SN Integumentary/Wounds In Progress No Demonstrate understanding of education Description: Patient and/or caregiver will verbalize understanding of educational instruction provided throughout certification period. SN Learning Assessment No Improved management of GI disease/condition Description: Patient/Caregiver will demonstrate understanding of GI education as evidenced by improved management of gastrointestinal disease/condition by 05/29/24. SN Gastrointestinal In Progress No Interventions Intervention Associated Problem/Goal Status Variance Visit Notes Medication Education Description: Evaluate/instruct patient/caregiver on obtaining, storing, identifying and administering ordered medications as well as keeping accurate medication list in the home and adhereing to medication schedule Problem:Medication Education Goal:Patient/caregiver will demonstrate ability to obtain, store, identify and administer ordered medications, keep accurate medication list in home, and adhere to medication schedule Completed Patient instructed on adhering to medication schedule. Risk of Sepsis Description: Patient is at risk for sepsis. Monitor closely for s/s of sepsis. Problem:Sepsis Goal:Patient/caregiver will be able to identify and report symptoms of sepsis Completed SPO2 Description: Notify Dr. Buckner if pulse ox is <92% at rest. Problem:Physician Specific Parameters Goal:Patient to maintain parameters within physician-specified ranges throughout certification period Completed Instruct on individual fall risk factors and strategies to prevent falls and injuries caused by falls. Problem:Risk for Falls Goal:Manage Risk for falls Completed SN: Patient instructed on Eliminating Environmental Hazards: Keep pathways clear Managing Impaired Functional Mobility: Caregiver to provide assist with: Steps Define patient s appetite/hydration status and implement strategies to improve compliance with prescribed diet and/or healthy nutrition. Problem:Nutrition/Hydr ation Goal:Manage Nutrition/Hydration Completed reinforced patient on implementing strategies to comply with prescribed diet, healthy nutrition and adequate hydration Instruct on ongoing discharge plan Problem:Discharge Goal:Manage discharge planning Completed Ongoing Discharge plan: Discharge plan discussed with patient including frequency and duration for home SN and plan for transition to: live independently at home without ongoing services. Instruct and educate on knowledge deficits Problem:SN Learning Assessment Goal:Demonstrate understanding of education Completed patient verbalize and/or demonstrate understanding of nursing education completed today. Education methods include: verbal cues, tactile cues, visual cues and teach back. Further education required to improve knowledge and compliance with cancer care management, fall prevention/home safety strategies, gastrointestinal care management, genitourinary care management, medication management, nutrition and surgical care precautions. Ostomy: Complete Pouch Change Description: Pouch to be changed: 2x a week and PRN. Pouch procedure: Remove old pouch, complete peristomal care, use skin prep, powder, paste, barrier ring, two piece and convex, adjust ostomy procedure as needed for leaking/fit complications. Problem:SN Gastrointestinal Goal:Improved management of GI disease/condition Completed Ostomy: Instruct Patient/Caregiver on Ostomy management Problem:SN Gastrointestinal Goal:Improved management of GI disease/condition Completed patient instructed on the following: emptying and rinsing pouch, pouch removal, pouch change, disposal of used pouch and appliance, peristomal skin care and ostomy precautions. documented in this encounter [facility] Plan of care note* Visit Details Visit Type -SN ROUTINE Discipline -Fdc Problems Problem Description Start Date Status Goals Interve ntions Medication Education Disciplines: Skilled Services 04/15/2024 Active 1 goal linked to scheduled/document ed intervention 1 goal intervention scheduled/documente d in this visit Sepsis Disciplines: Skilled Services 04/15/2024 Active 1 goal linked to scheduled/document ed intervention 1 goal intervention scheduled/documente d in this visit Cancer Disciplines: Skilled Services 04/15/2024 Active 1 goal linked to scheduled/document ed intervention 1 goal intervention scheduled/documente d in this visit Physician Specific Parameters Disciplines: Skilled Services 04/15/2024 Active 1 goal linked to scheduled/document ed intervention 1 goal intervention scheduled/documente d in this visit Risk for Falls Disciplines: Skilled Services 04/15/2024 Active 1 goal linked to scheduled/document ed intervention 1 goal intervention scheduled/documente d in this visit Nutrition/Hydra tion Disciplines: Skilled Services 04/15/2024 Active 1 goal linked to scheduled/document ed intervention 1 goal intervention scheduled/documente d in this visit SN Learning Assessment Disciplines: SN 04/15/2024 Active 1 goal linked to scheduled/document ed intervention 1 goal intervention scheduled/documente d in this visit SN Gastrointestina l Disciplines: SN 04/15/2024 Active 1 goal linked to scheduled/document ed intervention 2 goal interventions scheduled/documente d in this visit Goals Goal Associated Problem Outcome Goal Met? Visit Notes Patient/caregiver will demonstrate ability to obtain, store, identify and administer ordered medications, keep accurate medication list in home, and adhere to medication schedule Description: Patient/caregiver will demonstrate ability to obtain, store, identify and administer ordered medications, keep accurate medication list in home, and adhere to medication schedule by 06/13/24. Medication Education No Patient/caregiver will be able to identify and report symptoms of sepsis Description: Patient/caregiver will be able to identify signs/symptoms of sepsis infection and will verbalize actions to take if suspected by 06/13/24. Sepsis No Improve symptom management of cancer and side effects of treatment Description: Patient/caregiver will verbalize understanding of cancer diagnosis, side effects of treatment, and management of symptoms by 06/13/24. Cancer No Patient to maintain parameters within physician-specified ranges throughout certification period Physician Specific Parameters No Manage Risk for falls Description: Patient/caregiver will verbalize knowledge of individualized fall prevention strategies by 06/13/24. Risk for Falls No Manage Nutrition/Hydration Description: Patient/caregiver will verbalize/demonstrate knowledge of prescribed diet and/or healthy nutrition to be achieved by 06/13/24. Nutrition/Hydration No Demonstrate understanding of education Description: Patient and/or caregiver will verbalize understanding of educational instruction provided throughout certification period. SN Learning Assessment No Improved management of GI disease/condition Description: Patient/Caregiver will demonstrate understanding of GI education as evidenced by improved management of gastrointestinal disease/condition by 05/29/24. SN Gastrointestinal No Interventions Intervention Associated Problem/Goal Status Variance Visit Notes Medication Education Description: Evaluate/instruct patient/caregiver on obtaining, storing, identifying and administering ordered medications as well as keeping accurate medication list in the home and adhereing to medication schedule Problem:Medication Education Goal:Patient/caregiver will demonstrate ability to obtain, store, identify and administer ordered medications, keep accurate medication list in home, and adhere to medication schedule Completed Patient instructed on adhering to medication schedule. Risk of Sepsis Description: Patient is at risk for sepsis. Monitor closely for s/s of sepsis. Problem:Sepsis Goal:Patient/caregiver will be able to identify and report symptoms of sepsis Completed Instruct patient/caregiver on cancer diagnosis, side effects of treatment, and management of symptoms Description: Instruct patient/caregiver on pelvic cancer diagnosis, side effects of treatment and management of symptoms. Problem:Cancer Goal:Improve symptom management of cancer and side effects of treatment Completed Patient instructed on chemotherapy precautions and side effects. SPO2 Description: Notify Dr. Buckner if pulse ox is <92% at rest. Problem:Physician Specific Parameters Goal:Patient to maintain parameters within physician-specified ranges throughout certification period Completed Instruct on individual fall risk factors and strategies to prevent falls and injuries caused by falls. Problem:Risk for Falls Goal:Manage Risk for falls Completed SN: Patient instructed on Eliminating Environmental Hazards: Keep pathways clear and Keep rooms and walkways well lit Define patient s appetite/hydration status and implement strategies to improve compliance with prescribed diet and/or healthy nutrition. Problem:Nutrition/Hydr ation Goal:Manage Nutrition/Hydration Completed reinforced patient on implementing strategies to comply with prescribed diet, healthy nutrition and adequate hydration Instruct and educate on knowledge deficits Problem:SN Learning Assessment Goal:Demonstrate understanding of education Completed patient verbalize and/or demonstrate understanding of nursing education completed today. Education methods include: verbal cues, tactile cues, visual cues and teach back. Further education required to improve knowledge and compliance with cancer care management, fall prevention/home safety strategies, gastrointestinal care management, medication management, nutrition, ostomy care management and surgical care precautions. Ostomy: Complete Pouch Change Description: Pouch to be changed: 2x a week and PRN. Pouch procedure: Remove old pouch, complete peristomal care, use skin prep, powder, paste, barrier ring, two piece and convex, adjust ostomy procedure as needed for leaking/fit complications. Problem:SN Gastrointestinal Goal:Improved management of GI disease/condition Completed Ostomy: Instruct Patient/Caregiver on Ostomy management Problem:SN Gastrointestinal Goal:Improved management of GI disease/condition Completed patient instructed on the following: emptying and rinsing pouch, pouch removal, pouch change, disposal of used pouch and appliance and peristomal skin care. documented in this encounter [facility] Plan of care note* Visit Details Visit Type -SN ROUTINE Discipline -Fdc Problems Problem Description Start Date Status Goals Interve ntions Medication Education Disciplines: Skilled Services 04/15/2024 Active 1 goal linked to scheduled/document ed intervention 1 goal intervention scheduled/document ed in this visit Sepsis Disciplines: Skilled Services 04/15/2024 Active 1 goal linked to scheduled/document ed intervention 1 goal intervention scheduled/document ed in this visit Physician Specific Parameters Disciplines: Skilled Services 04/15/2024 Active 1 goal linked to scheduled/document ed intervention 1 goal intervention scheduled/document ed in this visit Risk for Falls Disciplines: Skilled Services 04/15/2024 Active 1 goal linked to scheduled/document ed intervention 1 goal intervention scheduled/document ed in this visit Pain Disciplines: Skilled Services 04/15/2024 Resolved on 05/10/2024 1 goal linked to scheduled/document ed intervention Nutrition/Hydr ation Disciplines: Skilled Services 04/15/2024 Active 1 goal linked to scheduled/document ed intervention 1 goal intervention scheduled/document ed in this visit SN Integumentary/ Wounds Disciplines: SN 04/15/2024 Resolved on 05/10/2024 1 goal linked to scheduled/document ed intervention SN Learning Assessment Disciplines: SN 04/15/2024 Active 1 goal linked to scheduled/document ed intervention 1 goal intervention scheduled/document ed in this visit SN Gastrointestin al Disciplines: SN 04/15/2024 Active 1 goal linked to scheduled/document ed intervention 2 goal interventions scheduled/document ed in this visit Goals Goal Associated Problem Outcome Goal Met? Visit Notes Patient/caregiver will demonstrate ability to obtain, store, identify and administer ordered medications, keep accurate medication list in home, and adhere to medication schedule Description: Patient/caregiver will demonstrate ability to obtain, store, identify and administer ordered medications, keep accurate medication list in home, and adhere to medication schedule by 06/13/24. Medication Education No Patient/caregiver will be able to identify and report symptoms of sepsis Description: Patient/caregiver will be able to identify signs/symptoms of sepsis infection and will verbalize actions to take if suspected by 06/13/24. Sepsis No Patient to maintain parameters within physician-specified ranges throughout certification period Physician Specific Parameters No Manage Risk for falls Description: Patient/caregiver will verbalize knowledge of individualized fall prevention strategies by 06/13/24. Risk for Falls No Manage Pain Description: Patient/caregiver will verbalize knowledge and understanding of appropriate techniques to control pain, including pain medication and non-pharmacological techniques. Patient will verbalize or demonstrate an acceptable level of pain as evidenced by a pain score of <5/10 and improvement in ability to perform activities of daily living to be achieved by 06/13/24. Pain Completed Yes Manage Nutrition/Hydration Description: Patient/caregiver will verbalize/demonstrate knowledge of prescribed diet and/or healthy nutrition to be achieved by 06/13/24. Nutrition/Hydration No Patient/Caregiver will have improved healing and be free of signs and symptoms of complications Description: Patient/caregiver will verbalize management strategies to promote wound healing & prevent complications as evidenced by improved healing & no complications by 05/29/24. SN Integumentary/Wounds Completed Yes Demonstrate understanding of education Description: Patient and/or caregiver will verbalize understanding of educational instruction provided throughout certification period. SN Learning Assessment No Improved management of GI disease/condition Description: Patient/Caregiver will demonstrate understanding of GI education as evidenced by improved management of gastrointestinal disease/condition by 05/29/24. SN Gastrointestinal No Interventions Intervention Associated Problem/Goal Status Variance Visit Notes Medication Education Description: Evaluate/instruct patient/caregiver on obtaining, storing, identifying and administering ordered medications as well as keeping accurate medication list in the home and adhereing to medication schedule Problem:Medication Education Goal:Patient/caregiver will demonstrate ability to obtain, store, identify and administer ordered medications, keep accurate medication list in home, and adhere to medication schedule Completed Patient instructed on adhering to medication schedule. Risk of Sepsis Description: Patient is at risk for sepsis. Monitor closely for s/s of sepsis. Problem:Sepsis Goal:Patient/caregiver will be able to identify and report symptoms of sepsis Completed SPO2 Description: Notify Dr. Buckner if pulse ox is <92% at rest. Problem:Physician Specific Parameters Goal:Patient to maintain parameters within physician-specified ranges throughout certification period Completed Instruct on individual fall risk factors and strategies to prevent falls and injuries caused by falls. Problem:Risk for Falls Goal:Manage Risk for falls Completed SN: Patient instructed on Eliminating Environmental Hazards: Keep pathways clear and Keep rooms and walkways well lit Define patient s appetite/hydration status and implement strategies to improve compliance with prescribed diet and/or healthy nutrition. Problem:Nutrition/Hydr ation Goal:Manage Nutrition/Hydration Completed reinforced patient on implementing strategies to comply with prescribed diet, healthy nutrition and adequate hydration Instruct and educate on knowledge deficits Problem:SN Learning Assessment Goal:Demonstrate understanding of education Completed patient verbalize and/or demonstrate understanding of nursing education completed today. Education methods include: verbal cues, tactile cues, visual cues and teach back. Further education required to improve knowledge and compliance with fall prevention/home safety strategies, gastrointestinal care management, medication management, nutrition and ostomy care management. Ostomy: Complete Pouch Change Description: Pouch to be changed: 2x a week and PRN. Pouch procedure: Remove old pouch, complete peristomal care, use skin prep, powder, paste, barrier ring, two piece and convex, adjust ostomy procedure as needed for leaking/fit complications. Problem:SN Gastrointestinal Goal:Improved management of GI disease/condition Completed Ostomy: Instruct Patient/Caregiver on Ostomy management Problem:SN Gastrointestinal Goal:Improved management of GI disease/condition Completed patient instructed on the following: emptying and rinsing pouch, pouch removal, pouch change, disposal of used pouch and appliance, peristomal skin care and ostomy precautions. [facility] Visit Details Visit Type -SN ROUTINE Discipline -Fdc Problems Problem Description Start Date Status Goals Interve ntions Medication Education Disciplines: Skilled Services 04/15/2024 Active 1 goal linked to scheduled/document ed intervention 1 goal intervention scheduled/documente d in this visit Sepsis Disciplines: Skilled Services 04/15/2024 Active 1 goal linked to scheduled/document ed intervention 1 goal intervention scheduled/documente d in this visit Physician Specific Parameters Disciplines: Skilled Services 04/15/2024 Active 1 goal linked to scheduled/document ed intervention 1 goal intervention scheduled/documente d in this visit Risk for Falls Disciplines: Skilled Services 04/15/2024 Active 1 goal linked to scheduled/document ed intervention 1 goal intervention scheduled/documente d in this visit Nutrition/Hydra tion Disciplines: Skilled Services 04/15/2024 Active 1 goal linked to scheduled/document ed intervention 1 goal intervention scheduled/documente d in this visit SN Learning Assessment Disciplines: SN 04/15/2024 Active 1 goal linked to scheduled/document ed intervention 1 goal intervention scheduled/documente d in this visit SN Gastrointestina l Disciplines: SN 04/15/2024 Active 1 goal linked to scheduled/document ed intervention 2 goal interventions scheduled/documente d in this visit Goals Goal Associated Problem Outcome Goal Met? Visit Notes Patient/caregiver will demonstrate ability to obtain, store, identify and administer ordered medications, keep accurate medication list in home, and adhere to medication schedule Description: Patient/caregiver will demonstrate ability to obtain, store, identify and administer ordered medications, keep accurate medication list in home, and adhere to medication schedule by 06/13/24. Medication Education No Patient/caregiver will be able to identify and report symptoms of sepsis Description: Patient/caregiver will be able to identify signs/symptoms of sepsis infection and will verbalize actions to take if suspected by 06/13/24. Sepsis No Patient to maintain parameters within physician-specified ranges throughout certification period Physician Specific Parameters No Manage Risk for falls Description: Patient/caregiver will verbalize knowledge of individualized fall prevention strategies by 06/13/24. Risk for Falls No Manage Nutrition/Hydration Description: Patient/caregiver will verbalize/demonstrate knowledge of prescribed diet and/or healthy nutrition to be achieved by 06/13/24. Nutrition/Hydration No Demonstrate understanding of education Description: Patient and/or caregiver will verbalize understanding of educational instruction provided throughout certification period. SN Learning Assessment No Improved management of GI disease/condition Description: Patient/Caregiver will demonstrate understanding of GI education as evidenced by improved management of gastrointestinal disease/condition by 05/29/24. SN Gastrointestinal No Interventions Intervention Associated Problem/Goal Status Variance Visit Notes Medication Education Description: Evaluate/instruct patient/caregiver on obtaining, storing, identifying and administering ordered medications as well as keeping accurate medication list in the home and adhereing to medication schedule Problem:Medication Education Goal:Patient/caregiver will demonstrate ability to obtain, store, identify and administer ordered medications, keep accurate medication list in home, and adhere to medication schedule Completed Patient instructed on adhering to medication schedule. Risk of Sepsis Description: Patient is at risk for sepsis. Monitor closely for s/s of sepsis. Problem:Sepsis Goal:Patient/caregiver will be able to identify and report symptoms of sepsis Completed SPO2 Description: Notify Dr. Buckner if pulse ox is <92% at rest. Problem:Physician Specific Parameters Goal:Patient to maintain parameters within physician-specified ranges throughout certification period Completed Instruct on individual fall risk factors and strategies to prevent falls and injuries caused by falls. Problem:Risk for Falls Goal:Manage Risk for falls Completed SN: Patient instructed on Eliminating Environmental Hazards: Keep pathways clear Define patient s appetite/hydration status and implement strategies to improve compliance with prescribed diet and/or healthy nutrition. Problem:Nutrition/Hydr ation Goal:Manage Nutrition/Hydration Completed reinforced patient on implementing strategies to comply with prescribed diet, healthy nutrition and adequate hydration Instruct and educate on knowledge deficits Problem:SN Learning Assessment Goal:Demonstrate understanding of education Completed patient verbalize and/or demonstrate understanding of nursing education completed today. Education methods include: verbal cues, tactile cues, visual cues and teach back. Further education required to improve knowledge and compliance with fall prevention/home safety strategies, gastrointestinal care management, medication management, nutrition and ostomy care management. Ostomy: Complete Pouch Change Description: Pouch to be changed: 2x a week and PRN. Pouch procedure: Remove old pouch, complete peristomal care, use skin prep, powder, paste, barrier ring, two piece and convex, adjust ostomy procedure as needed for leaking/fit complications. Problem:SN Gastrointestinal Goal:Improved management of GI disease/condition Completed Ostomy: Instruct Patient/Caregiver on Ostomy management Problem:SN Gastrointestinal Goal:Improved management of GI disease/condition Completed patient instructed on the following: pouch removal, pouch change, disposal of used pouch and appliance, peristomal skin care and ostomy precautions. [facility] Visit Details Visit Type -SN ROUTINE Discipline -Fdc Problems Problem Description Start Date Status Goals Interve ntions Medication Education Disciplines: Skilled Services 04/15/2024 Active 1 goal linked to scheduled/document ed intervention 1 goal intervention scheduled/document ed in this visit Sepsis Disciplines: Skilled Services 04/15/2024 Active 1 goal linked to scheduled/document ed intervention 1 goal intervention scheduled/document ed in this visit Cancer Disciplines: Skilled Services 04/15/2024 Active 1 goal linked to scheduled/document ed intervention 1 goal intervention scheduled/document ed in this visit Physician Specific Parameters Disciplines: Skilled Services 04/15/2024 Active 1 goal linked to scheduled/document ed intervention 1 goal intervention scheduled/document ed in this visit Risk for Falls Disciplines: Skilled Services 04/15/2024 Active 1 goal linked to scheduled/document ed intervention 1 goal intervention scheduled/document ed in this visit Nutrition/Hydr ation Disciplines: Skilled Services 04/15/2024 Active 1 goal linked to scheduled/document ed intervention 1 goal intervention scheduled/document ed in this visit Discharge Disciplines: Skilled Services 04/15/2024 Active 1 goal linked to scheduled/document ed intervention 2 goal interventions scheduled/document ed in this visit Advance Directives Disciplines: Skilled Services 04/15/2024 Resolved on 05/17/2024 1 goal linked to scheduled/document ed intervention SN Learning Assessment Disciplines: SN 04/15/2024 Active 1 goal linked to scheduled/document ed intervention 1 goal intervention scheduled/document ed in this visit SN Gastrointestin al Disciplines: SN 04/15/2024 Active 1 goal linked to scheduled/document ed intervention 2 goal interventions scheduled/document ed in this visit Goals Goal Associated Problem Outcome Goal Met? Visit Notes Patient/caregiver will demonstrate ability to obtain, store, identify and administer ordered medications, keep accurate medication list in home, and adhere to medication schedule Description: Patient/caregiver will demonstrate ability to obtain, store, identify and administer ordered medications, keep accurate medication list in home, and adhere to medication schedule by 06/13/24. Medication Education In Progress No Patient/caregiver will be able to identify and report symptoms of sepsis Description: Patient/caregiver will be able to identify signs/symptoms of sepsis infection and will verbalize actions to take if suspected by 06/13/24. Sepsis In Progress No Improve symptom management of cancer and side effects of treatment Description: Patient/caregiver will verbalize understanding of cancer diagnosis, side effects of treatment, and management of symptoms by 06/13/24. Cancer In Progress No Patient to maintain parameters within physician-specified ranges throughout certification period Physician Specific Parameters In Progress No Manage Risk for falls Description: Patient/caregiver will verbalize knowledge of individualized fall prevention strategies by 06/13/24. Risk for Falls In Progress No Manage Nutrition/Hydration Description: Patient/caregiver will verbalize/demonstrate knowledge of prescribed diet and/or healthy nutrition to be achieved by 06/13/24. Nutrition/Hydration In Progress No Manage discharge planning Description: Patient/caregiver will verbalize understanding of ongoing discharge plan provided related to disease management, arrangements for outpatient and/or community services, obtaining medications, supplies, and DME, as needed throughout certification period. Discharge In Progress No Patient/caregiver will make healthcare providers aware of and any changes to Advance Directives throughout certification period Advance Directives Completed Yes Demonstrate understanding of education Description: Patient and/or caregiver will verbalize understanding of educational instruction provided throughout certification period. SN Learning Assessment In Progress No Improved management of GI disease/condition Description: Patient/Caregiver will demonstrate understanding of GI education as evidenced by improved management of gastrointestinal disease/condition by 05/29/24. SN Gastrointestinal In Progress No Interventions Intervention Associated Problem/Goal Status Variance Visit Notes Medication Education Description: Evaluate/instruct patient/caregiver on obtaining, storing, identifying and administering ordered medications as well as keeping accurate medication list in the home and adhereing to medication schedule Problem:Medication Education Goal:Patient/caregiver will demonstrate ability to obtain, store, identify and administer ordered medications, keep accurate medication list in home, and adhere to medication schedule Completed Patient instructed on adhering to medication schedule. Risk of Sepsis Description: Patient is at risk for sepsis. Monitor closely for s/s of sepsis. Problem:Sepsis Goal:Patient/caregiver will be able to identify and report symptoms of sepsis Completed Instruct patient/caregiver on cancer diagnosis, side effects of treatment, and management of symptoms Description: Instruct patient/caregiver on pelvic cancer diagnosis, side effects of treatment and management of symptoms. Problem:Cancer Goal:Improve symptom management of cancer and side effects of treatment Completed Patient instructed on chemotherapy precautions and side effects. SPO2 Description: Notify Dr. Buckner if pulse ox is <92% at rest. Problem:Physician Specific Parameters Goal:Patient to maintain parameters within physician-specified ranges throughout certification period Completed Instruct on individual fall risk factors and strategies to prevent falls and injuries caused by falls. Problem:Risk for Falls Goal:Manage Risk for falls Completed SN: Patient instructed on Eliminating Environmental Hazards: Keep pathways clear Define patient s appetite/hydration status and implement strategies to improve compliance with prescribed diet and/or healthy nutrition. Problem:Nutrition/Hydr ation Goal:Manage Nutrition/Hydration Completed reinforced patient on implementing strategies to comply with prescribed diet, healthy nutrition and adequate hydration Deliver [facility] Problem:Discharge Goal:Manage discharge planning Completed Delivered [facility] on 05/17/24 for discharge date of 8/19/24. Instruct on ongoing discharge plan Problem:Discharge Goal:Manage discharge planning Completed Ongoing Discharge plan: Discharge plan discussed with patient including frequency and duration for home SN and plan for transition to: live independently at home without ongoing services. Instruct and educate on knowledge deficits Problem:SN Learning Assessment Goal:Demonstrate understanding of education Completed patient verbalize and/or demonstrate understanding of nursing education completed today. Education methods include: verbal cues and teach back. Further education required to improve knowledge and compliance with cancer care management, fall prevention/home safety strategies, gastrointestinal care management, medication management, nutrition and ostomy care management. Ostomy: Complete Pouch Change Description: Pouch to be changed: 2x a week and PRN. Pouch procedure: Remove old pouch, complete peristomal care, use skin prep, powder, paste, barrier ring, two piece and convex, adjust ostomy procedure as needed for leaking/fit complications. Problem:SN Gastrointestinal Goal:Improved management of GI disease/condition Completed Ostomy: Instruct Patient/Caregiver on Ostomy management Problem:SN Gastrointestinal Goal:Improved management of GI disease/condition Completed patient instructed on the following: emptying and rinsing pouch, pouch removal, pouch change, disposal of used pouch and appliance, peristomal skin care and ostomy precautions. [facility] Visit Details Visit Type -SN ROUTINE Discipline -Fdc Problems Problem Description Start Date Status Goals Interve ntions Medication Education Disciplines: Skilled Services 04/15/2024 Active 1 goal linked to scheduled/document ed intervention 1 goal intervention scheduled/documente d in this visit Sepsis Disciplines: Skilled Services 04/15/2024 Active 1 goal linked to scheduled/document ed intervention 1 goal intervention scheduled/documente d in this visit Cancer Disciplines: Skilled Services 04/15/2024 Active 1 goal linked to scheduled/document ed intervention 1 goal intervention scheduled/documente d in this visit Physician Specific Parameters Disciplines: Skilled Services 04/15/2024 Active 1 goal linked to scheduled/document ed intervention 1 goal intervention scheduled/documente d in this visit Risk for Falls Disciplines: Skilled Services 04/15/2024 Active 1 goal linked to scheduled/document ed intervention 1 goal intervention scheduled/documente d in this visit Nutrition/Hydra tion Disciplines: Skilled Services 04/15/2024 Active 1 goal linked to scheduled/document ed intervention 1 goal intervention scheduled/documente d in this visit SN Learning Assessment Disciplines: SN 04/15/2024 Active 1 goal linked to scheduled/document ed intervention 1 goal intervention scheduled/documente d in this visit SN Gastrointrachael l Disciplines: 04/15/2024 Active 1 goal linked to scheduled/document ed intervention 1 goal intervention scheduled/documente d in this visit Goals Goal Associated Problem Outcome Goal Met? Visit Notes Patient/caregiver will demonstrate ability to obtain, store, identify and administer ordered medications, keep accurate medication list in home, and adhere to medication schedule Description: Patient/caregiver will demonstrate ability to obtain, store, identify and administer ordered medications, keep accurate medication list in home, and adhere to medication schedule by 06/13/24. Medication Education No Patient/caregiver will be able to identify and report symptoms of sepsis Description: Patient/caregiver will be able to identify signs/symptoms of sepsis infection and will verbalize actions to take if suspected by 06/13/24. Sepsis No Improve symptom management of cancer and side effects of treatment Description: Patient/caregiver will verbalize understanding of cancer diagnosis, side effects of treatment, and management of symptoms by 06/13/24. Cancer No Patient to maintain parameters within physician-specified ranges throughout certification period Physician Specific Parameters No Manage Risk for falls Description: Patient/caregiver will verbalize knowledge of individualized fall prevention strategies by 06/13/24. Risk for Falls No Manage Nutrition/Hydration Description: Patient/caregiver will verbalize/demonstrate knowledge of prescribed diet and/or healthy nutrition to be achieved by 06/13/24. Nutrition/Hydration No Demonstrate understanding of education Description: Patient and/or caregiver will verbalize understanding of educational instruction provided throughout certification period. SN Learning Assessment No Improved management of GI disease/condition Description: Patient/Caregiver will demonstrate understanding of GI education as evidenced by improved management of gastrointestinal disease/condition by 05/29/24. SN Gastrointestinal No Interventions Intervention Associated Problem/Goal Status Variance Visit Notes Medication Education Description: Evaluate/instruct patient/caregiver on obtaining, storing, identifying and administering ordered medications as well as keeping accurate medication list in the home and adhereing to medication schedule Problem:Medication Education Goal:Patient/caregiver will demonstrate ability to obtain, store, identify and administer ordered medications, keep accurate medication list in home, and adhere to medication schedule Completed Patient instructed on adhering to medication schedule. Risk of Sepsis Description: Patient is at risk for sepsis. Monitor closely for s/s of sepsis. Problem:Sepsis Goal:Patient/caregiver will be able to identify and report symptoms of sepsis Completed Instruct patient/caregiver on cancer diagnosis, side effects of treatment, and management of symptoms Description: Instruct patient/caregiver on pelvic cancer diagnosis, side effects of treatment and management of symptoms. Problem:Cancer Goal:Improve symptom management of cancer and side effects of treatment Completed Patient instructed on chemotherapy precautions and side effects. SPO2 Description: Notify Dr. Buckner if pulse ox is <92% at rest. Problem:Physician Specific Parameters Goal:Patient to maintain parameters within physician-specified ranges throughout certification period Completed Instruct on individual fall risk factors and strategies to prevent falls and injuries caused by falls. Problem:Risk for Falls Goal:Manage Risk for falls Completed SN: Patient instructed on Eliminating Environmental Hazards: Keep pathways clear Define patient s appetite/hydration status and implement strategies to improve compliance with prescribed diet and/or healthy nutrition. Problem:Nutrition/Hydr ation Goal:Manage Nutrition/Hydration Completed reinforced patient on implementing strategies to comply with prescribed diet, healthy nutrition and adequate hydration Instruct and educate on knowledge deficits Problem:SN Learning Assessment Goal:Demonstrate understanding of education Completed patient verbalize and/or demonstrate understanding of nursing education completed today. Education methods include: verbal cues, tactile cues, visual cues and teach back. Further education required to improve knowledge and compliance with cancer care management, fall prevention/home safety strategies, gastrointestinal care management, integumentary care management, medication management and nutrition. Ostomy: Instruct Patient/Caregiver on Ostomy management Problem:SN Gastrointestinal Goal:Improved management of GI disease/condition Completed patient instructed on the following: pouch removal, pouch change, peristomal skin care and ostomy precautions. documented in this encounter [facility] Plan of care note* Visit Details Visit Type -SN ROUTINE Discipline -Fdc Problems Problem Description Start Date Status Goals Interve ntions Medication Education Disciplines: Skilled Services 04/15/2024 Active 1 goal linked to scheduled/document ed intervention 1 goal intervention scheduled/documente d in this visit Sepsis Disciplines: Skilled Services 04/15/2024 Active 1 goal linked to scheduled/document ed intervention 1 goal intervention scheduled/documente d in this visit Cancer Disciplines: Skilled Services 04/15/2024 Active 1 goal linked to scheduled/document ed intervention 1 goal intervention scheduled/documente d in this visit Physician Specific Parameters Disciplines: Skilled Services 04/15/2024 Active 1 goal linked to scheduled/document ed intervention 1 goal intervention scheduled/documente d in this visit Risk for Falls Disciplines: Skilled Services 04/15/2024 Active 1 goal linked to scheduled/document ed intervention 1 goal intervention scheduled/documente d in this visit Nutrition/Hydra tion Disciplines: Skilled Services 04/15/2024 Active 1 goal linked to scheduled/document ed intervention 1 goal intervention scheduled/documente d in this visit SN Learning Assessment Disciplines: SN 04/15/2024 Active 1 goal linked to scheduled/document ed intervention 1 goal intervention scheduled/documente d in this visit SN Gastrointestina l Disciplines: SN 04/15/2024 Active 1 goal linked to scheduled/document ed intervention 2 goal interventions scheduled/documente d in this visit Goals Goal Associated Problem Outcome Goal Met? Visit Notes Patient/caregiver will demonstrate ability to obtain, store, identify and administer ordered medications, keep accurate medication list in home, and adhere to medication schedule Description: Patient/caregiver will demonstrate ability to obtain, store, identify and administer ordered medications, keep accurate medication list in home, and adhere to medication schedule by 06/13/24. Medication Education No Patient/caregiver will be able to identify and report symptoms of sepsis Description: Patient/caregiver will be able to identify signs/symptoms of sepsis infection and will verbalize actions to take if suspected by 06/13/24. Sepsis No Improve symptom management of cancer and side effects of treatment Description: Patient/caregiver will verbalize understanding of cancer diagnosis, side effects of treatment, and management of symptoms by 06/13/24. Cancer No Patient to maintain parameters within physician-specified ranges throughout certification period Physician Specific Parameters No Manage Risk for falls Description: Patient/caregiver will verbalize knowledge of individualized fall prevention strategies by 06/13/24. Risk for Falls No Manage Nutrition/Hydration Description: Patient/caregiver will verbalize/demonstrate knowledge of prescribed diet and/or healthy nutrition to be achieved by 06/13/24. Nutrition/Hydration No Demonstrate understanding of education Description: Patient and/or caregiver will verbalize understanding of educational instruction provided throughout certification period. SN Learning Assessment No Improved management of GI disease/condition Description: Patient/Caregiver will demonstrate understanding of GI education as evidenced by improved management of gastrointestinal disease/condition by 05/29/24. SN Gastrointestinal In Progress No Interventions Intervention Associated Problem/Goal Status Variance Visit Notes Medication Education Description: Evaluate/instruct patient/caregiver on obtaining, storing, identifying and administering ordered medications as well as keeping accurate medication list in the home and adhereing to medication schedule Problem:Medication Education Goal:Patient/caregiver will demonstrate ability to obtain, store, identify and administer ordered medications, keep accurate medication list in home, and adhere to medication schedule Completed Patient instructed on adhering to medication schedule. Risk of Sepsis Description: Patient is at risk for sepsis. Monitor closely for s/s of sepsis. Problem:Sepsis Goal:Patient/caregiver will be able to identify and report symptoms of sepsis Completed Instruct patient/caregiver on cancer diagnosis, side effects of treatment, and management of symptoms Description: Instruct patient/caregiver on pelvic cancer diagnosis, side effects of treatment and management of symptoms. Problem:Cancer Goal:Improve symptom management of cancer and side effects of treatment Completed Patient instructed on chemotherapy precautions and side effects. SPO2 Description: Notify Dr. Buckner if pulse ox is <92% at rest. Problem:Physician Specific Parameters Goal:Patient to maintain parameters within physician-specified ranges throughout certification period Completed Instruct on individual fall risk factors and strategies to prevent falls and injuries caused by falls. Problem:Risk for Falls Goal:Manage Risk for falls Completed SN: Patient instructed on Eliminating Environmental Hazards: Keep pathways clear Define patient s appetite/hydration status and implement strategies to improve compliance with prescribed diet and/or healthy nutrition. Problem:Nutrition/Hydr ation Goal:Manage Nutrition/Hydration Completed reinforced patient on implementing strategies to comply with prescribed diet, healthy nutrition and adequate hydration Instruct and educate on knowledge deficits Problem:SN Learning Assessment Goal:Demonstrate understanding of education Completed patient verbalize and/or demonstrate understanding of nursing education completed today. Education methods include: verbal cues, visual cues and teach back. Further education required to improve knowledge and compliance with cancer care management, fall prevention/home safety strategies, gastrointestinal care management, medication management, nutrition and ostomy care management. Ostomy: Complete Pouch Change Description: Pouch to be changed: 2x a week and PRN. Pouch procedure: Remove old pouch, complete peristomal care, use skin prep, powder, paste, barrier ring, two piece and convex, adjust ostomy procedure as needed for leaking/fit complications. Problem:SN Gastrointestinal Goal:Improved management of GI disease/condition Completed Ostomy: Instruct Patient/Caregiver on Ostomy management Problem:SN Gastrointestinal Goal:Improved management of GI disease/condition Completed patient instructed on the following: pouch removal, pouch change and peristomal skin care. [facility] Visit Details Visit Type -SN AGENCY DC W V ISIT Discipline -Fdc Problems Problem Description Start Date Status Goals Interve ntions Medication Education Disciplines: Skilled Services 04/15/2024 Resolved on 06/10/2024 1 goal linked to scheduled/document ed intervention 1 goal intervention scheduled/document ed in this visit Sepsis Disciplines: Skilled Services 04/15/2024 Resolved on 06/10/2024 1 goal linked to scheduled/document ed intervention 1 goal intervention scheduled/document ed in this visit Cancer Disciplines: Skilled Services 04/15/2024 Resolved on 06/10/2024 1 goal linked to scheduled/document ed intervention 1 goal intervention scheduled/document ed in this visit Physician Specific Parameters Disciplines: Skilled Services 04/15/2024 Resolved on 06/10/2024 1 goal linked to scheduled/document ed intervention 1 goal intervention scheduled/document ed in this visit Risk for Falls Disciplines: Skilled Services 04/15/2024 Resolved on 06/10/2024 1 goal linked to scheduled/document ed intervention 1 goal intervention scheduled/document ed in this visit Nutrition/Hydr ation Disciplines: Skilled Services 04/15/2024 Resolved on 06/10/2024 1 goal linked to scheduled/document ed intervention 1 goal intervention scheduled/document ed in this visit Discharge Disciplines: Skilled Services 04/15/2024 Resolved on 06/10/2024 1 goal linked to scheduled/document ed intervention 1 goal intervention scheduled/document ed in this visit SN Learning Assessment Disciplines: SN 04/15/2024 Resolved on 06/10/2024 1 goal linked to scheduled/document ed intervention 1 goal intervention scheduled/document ed in this visit SN Gastrointestin al Disciplines: SN 04/15/2024 Resolved on 06/10/2024 1 goal linked to scheduled/document ed intervention 2 goal interventions scheduled/document ed in this visit Goals Goal Associated Problem Outcome Goal Met? Visit Notes Patient/caregiver will demonstrate ability to obtain, store, identify and administer ordered medications, keep accurate medication list in home, and adhere to medication schedule Description: Patient/caregiver will demonstrate ability to obtain, store, identify and administer ordered medications, keep accurate medication list in home, and adhere to medication schedule by 06/13/24. Medication Education Completed Yes Patient/caregiver will be able to identify and report symptoms of sepsis Description: Patient/caregiver will be able to identify signs/symptoms of sepsis infection and will verbalize actions to take if suspected by 06/13/24. Sepsis Completed Yes Improve symptom management of cancer and side effects of treatment Description: Patient/caregiver will verbalize understanding of cancer diagnosis, side effects of treatment, and management of symptoms by 06/13/24. Cancer Completed Yes Patient to maintain parameters within physician-specified ranges throughout certification period Physician Specific Parameters Completed Yes Manage Risk for falls Description: Patient/caregiver will verbalize knowledge of individualized fall prevention strategies by 06/13/24. Risk for Falls Completed Yes Manage Nutrition/Hydration Description: Patient/caregiver will verbalize/demonstrate knowledge of prescribed diet and/or healthy nutrition to be achieved by 06/13/24. Nutrition/Hydration Completed Yes Manage discharge planning Description: Patient/caregiver will verbalize understanding of ongoing discharge plan provided related to disease management, arrangements for outpatient and/or community services, obtaining medications, supplies, and DME, as needed throughout certification period. Discharge Completed Yes Demonstrate understanding of education Description: Patient and/or caregiver will verbalize understanding of educational instruction provided throughout certification period. SN Learning Assessment Completed Yes Improved management of GI disease/condition Description: Patient/Caregiver will demonstrate understanding of GI education as evidenced by improved management of gastrointestinal disease/condition by 05/29/24. SN Gastrointestinal Completed Yes Interventions Intervention Associated Problem/Goal Status Variance Visit Notes Medication Education Description: Evaluate/instruct patient/caregiver on obtaining, storing, identifying and administering ordered medications as well as keeping accurate medication list in the home and adhereing to medication schedule Problem:Medication Education Goal:Patient/caregive r will demonstrate ability to obtain, store, identify and administer ordered medications, keep accurate medication list in home, and adhere to medication schedule Completed Patient instructed on adhering to medication schedule. Risk of Sepsis Description: Patient is at risk for sepsis. Monitor closely for s/s of sepsis. Problem:Sepsis Goal:Patient/caregive r will be able to identify and report symptoms of sepsis Completed Instruct patient/caregiver on cancer diagnosis, side effects of treatment, and management of symptoms Description: Instruct patient/caregiver on pelvic cancer diagnosis, side effects of treatment and management of symptoms. Problem:Cancer Goal:Improve symptom management of cancer and side effects of treatment Completed Patient instructed on chemotherapy precautions and side effects. SPO2 Description: Notify Dr. Buckner if pulse ox is <92% at rest. Problem:Physician Specific Parameters Goal:Patient to maintain parameters within physician-specified ranges throughout certification period Completed Instruct on individual fall risk factors and strategies to prevent falls and injuries caused by falls. Problem:Risk for Falls Goal:Manage Risk for falls Completed SN: Patient instructed on Eliminating Environmental Hazards: Keep pathways clear and Keep rooms and walkways well lit Define patient s appetite/hydration status and implement strategies to improve compliance with prescribed diet and/or healthy nutrition. Problem:Nutrition/Hyd ration Goal:Manage Nutrition/Hydration Completed reinforced patient on implementing strategies to comply with prescribed diet, healthy nutrition and adequate hydration Instruct on final discharge plan and deliver discharge instructions Problem:Discharge Goal:Manage discharge planning Completed Delivered Discharge plan: Discharge plan discussed with patient for plan for transition to: live independently at home without ongoing services Instruct and educate on knowledge deficits Problem:SN Learning Assessment Goal:Demonstrate understanding of education Completed patient verbalize and/or demonstrate understanding of nursing education completed today. Education methods include: verbal cues and teach back. Further education required to improve knowledge and compliance with cancer care management, fall prevention/home safety strategies, gastrointestinal care management, medication management, nutrition and ostomy care management. Ostomy: Instruct Patient/Caregiver on Ostomy management Problem:SN Gastrointestinal Goal:Improved management of GI disease/condition Completed patient instructed on the following: pouch removal, pouch change, disposal of used pouch and appliance and peristomal skin care. Ostomy: Complete Pouch Change Description: Pouch to be changed: 2x a week and PRN. Pouch procedure: Remove old pouch, complete peristomal care, use skin prep, powder, paste, barrier ring, two piece and convex, adjust ostomy procedure as needed for leaking/fit complications. Problem:SN Gastrointestinal Goal:Improved management of GI disease/condition Patient independent documented in this encounter [facility] for referral (narrative)* Diagnostic Procedure Only (Routine) - Pending Review Specialty Diagnoses / Procedures Referred By Mirta oliver Referred To Contact [facility] Diagnoses Encounter for screening mammogram for breast cancer Procedures YEIMY SCREENING SCREENING MAMMOGRAPHY BI 2-VIEW BREAST INC CAD Romel Michelle MD [address] [place] [address] Br Imaging [address] [facility] [place] [place] [address] Referral ID Status Reason Start Date Expiration Date Visits Requested Visits Authorized [id number] Pending Review Auto-Generat ed Referral 08/14/2022 09/13/2023 1 1 [facility] for referral (narrative)* Diagnostic Procedure Only (Routine) - Closed Specialty Diagnoses / Procedures Referred By Mirta oliver Referred To Contact XR IMAGING Diagnoses Generalized abdominal pain Abdominal bloating Procedures XR ABDOMEN 2V ROUTINE SUPINE W UPRIGHT/DECUB/CTL RADIOLOGIC EXAM ABDOMEN 2 VIEWS Romel Michelle MD [address] [place] [address] Xr Imaging [place] [address] Referral ID Status Reason Start Date Expiration Date V isits Requested Visits Authorized [id number] Closed Auto-Generate d Referral 03/03/2024 04/02/2025 1 1 [facility] for referral (narrative)* Outpatient Procedure (Routine) - Pending Review Specialty Diagnoses / Procedures Referred By Mrita oliver Referred To Contact [facility] Diagnoses Preoperative examination Procedures ECG COMPLETE ECG ROUTINE ECG W/LEAST 12 LDS W/I&R Estefany Cash PA-C [address] [place] [address] [facility] [place] [address] [place] [id number] Referral ID Status Reason Start Date Expiration Date Visits Requested Visits Authorized [id number] Pending Review Auto-Generat ed Referral 04/02/2024 04/02/2025 1 1 [facility] for referral (narrative)* Diagnostic Procedure Only (Routine) - New Request Specialty Diagnoses / Procedures Referred By Mirta t Referred To Contact BR IM[facility] Diagnoses Encounter for screening mammogram for breast cancer Procedures YEIMY SCREENING W CHIQUI SCREENING DIGITAL BREAST TOMOSYNTHESIS BI SCREENING MAMMOGRAPHY BI 2-VIEW BREAST INC CAD Romel Michelle MD [address] [place] [address] Br Imaging [address] [place] [address] Referral ID Status Reason Start Date Expiration Date Visits Requested Visits Authorized [id number] New Request Auto-Generat ed Referral 08/11/2024 09/10/2025 1 1 [facility] for referral (narrative)No reason for referral information [facility]: Reason for visit Narrative* Diagnostic Procedure Only (Routine) - Closed Specialty Diagnoses / Procedures Referred By Contac t Referred To Contact XR IMAGING Diagnoses Generalized abdominal pain Abdominal bloating Procedures XR ABDOMEN 2V ROUTINE SUPINE W UPRIGHT/DECUB/CTL RADIOLOGIC EXAM ABDOMEN 2 VIEWS Romel Michelle MD [address] [place] [address] [place] [address] Referral ID Status Reason Start Date Expiration Date V isits Requested Visits Authorized [id number] Closed Auto-Generate d Referral 03/03/2024 04/02/2025 1 1 [facility] for visit Narrative* MRI/CT (Routine) - Closed Specialty Diagnoses / Procedures Referred By Contac t Referred To Contact CT IMAGING Diagnoses High grade ovarian cancer (HCC) Procedures CT ABD/PEL W IVCON CT ABD & PELVIS W/CONTRAST Nile Hall, DO [address] [place] [address] Phone: tel: fax: [place] [address] Referral ID Status Reason Start Date Expiration Date V isits Requested Visits Authorized [id number] Closed Auto-Generate d Referral 12/02/2024 01/01/2026 1 1 [facility] Chief Complaint and Reason for Visit Chief Complaint Admit Date RECTAL BLEED December 17, 2024 8:3 2am Melena March 01, 2025 7:56a m Reason for Visit Admit Date Blood in stool, nikki December 17, 2024 8 :32am Chief Complaint SCREENING Chief Complaint Admit Date RECTAL BLEED December 17, 2024 8:3 2am Chief Complaint Admit Date Melena March 01, 2025 7:56a m Reason for Visit Admit Date History of reversal of ileostomy February 7:56am Melena March 01, 2025 7:56a m Blood in stool, nikki April 26, 2025 1: 21pm History of reversal of ileostomy April 262024 1:21pm Reason for Referral Specialty Diagnoses / Procedures Referred By Contac t Referred To Contact CT IMAGING Diagnoses Generalized abdominal pain Abdominal bloating Procedures CT ABD/PEL W IVCON CT ABD & PELVIS W/CONTRAST Romel Michelle MD [address] [place] [address] Ct Imaging [place] [address] Referral ID Status Reason Start Date Expiration Date Visits Requested Visits Authorized [id number] Authorized Auto-Generat ed Referral 03/09/2024 10/05/2024 1 1 Referral ID Status Reason Start Date Expiration Date V isits Requested Visits Authorized [id number] Closed Auto-Generate d Referral 03/09/2024 10/05/2024 1 1 Specialty Diagnoses / Procedures Referred By Contac t Referred To Contact Diagnoses Preop examination Procedures REFER TO PACC - PRE ANESTHESIA CONSULTATION CLINIC OFFICE/OUTPATIENT [facility] 60 MINUTES Tarsha Alicea APRN.CNP [address] [place] [address] Referral ID Status Reason Start Date Expiration Date Visits Requested Visits Authorized [id number] Authorized PCP Requested Referral 03/15/2024 03/15/2025 1 1 Specialty Diagnoses / Procedures Referred By Contac t Referred To Contact CT IMAGING Diagnoses Pelvic mass Procedures CT CHEST WO IVCON DIAGNOSTIC COMPUTED TOMOGRAPHY THORAX W/[place] [address] [place] [address] Ct Imaging [place] [address] Referral ID Status Reason Start Date Expiration Date V isits Requested Visits Authorized [id number] Closed Auto-Generate d Referral 03/16/2024 10/05/2024 1 1 Specialty Diagnoses / Procedures Referred By Contac t Referred To Contact [facility] Diagnoses Pelvic mass Procedures ECG COMPLETE ECG ROUTINE ECG W/LEAST 12 LDS W/I&[place] [address] [place] [id number] [facility] [place] [address] [place] [address] Referral ID Status Reason Start Date Expiration Date Visits Requested Visits Authorized [id number] Pending Review Auto-Generat ed Referral 03/15/2024 03/15/2025 1 1 Specialty Diagnoses / Procedures Referred By Contac t Referred To Contact Diagnoses Pelvic mass Procedures CONSULT TO GYNECOLOGIC/ONCOLOGY OFFICE/OUTPATIENT [facility] 60 MINUTES Romel Michelle MD [address] [place] [address] Referral ID Status Reason Start Date Expiration Date V isits Requested Visits Authorized [id number] Closed PCP Requested Referral Auto-Generated Referral 03/11/2024 03/10/2025 1 1 Specialty Diagnoses / Procedures Referred By Contac t Referred To Contact Diagnoses Abdominal bloating Pelvic mass Cathy Coles APRN.PHOTOGRAPHER LITHOGRAPHIC [address] [place] [address] Referral ID Status Reason Start Date Expiration Date Visits Re quested Visits Authorized [id number] Closed 1 1 Specialty Diagnoses / Procedures Referred By Contac t Referred To Contact Diagnoses Post-operative state Carey Elias APRN.PHOTOGRAPHER LITHOGRAPHIC [address] [place] [address] Referral ID Status Reason Start Date Expiration Date Visits Re quested Visits Authorized [id number] Closed 1 1 Specialty Diagnoses / Procedures Referred By Contac t Referred To Contact Diagnoses High grade ovarian cancer (HCC) Procedures CONSULT TO HEMATOLOGY/ONCOLOGY OFFICE/OUTPATIENT [facility] 60 MINUTES Fredis Buckner MD [id number] [place] [address] [facility], [address] [place] [address] Referral ID Status Reason Start Date Expiration Date Visits Requested Visits Authorized [id number] Authorized PCP Requested Referral 04/19/2024 04/19/2025 1 1 Specialty Diagnoses / Procedures Referred By Contac t Referred To Contact Diagnoses Abdominal bloating Pelvic mass High grade ovarian cancer (HCC) Procedures CONSULT TO MEDICAL GENETICS - CANCER MEDICAL GENETICS COUNSELING EACH 30 MINUTES Carey Elias APRN.PHOTOGRAPHER LITHOGRAPHIC [address] [facility] [place] [address] [facility] [address] [place] [address] Referral ID Status Reason Start Date Expiration Date Visits Requested Visits Authorized [id number] Authorized PCP Requested Referral Auto-Generate d Referral 04/19/2024 04/19/2025 1 1 Specialty Diagnoses / Procedures Referred By Contac t Referred To Contact Diagnoses Abdominal bloating Pelvic mass High grade ovarian cancer (HCC) Carey Elias, CONTESTANT COORDINATOR.PHOTOGRAPHER LITHOGRAPHIC [address] [place] [address] Referral ID Status Reason Start Date Expiration Date Visits Re quested Visits Authorized [id number] Closed 1 1 Specialty Diagnoses / Procedures Referred By Contac t Referred To Contact CT IMAGING Diagnoses High grade ovarian cancer (HCC) Procedures CT ABD/PEL W IVCON CT ABD & PELVIS W/CONTRAST Nile Hall, DO [address] [place] [address] Ct [id number] Referral ID Status Reason Start Date Expiration Date Visits Requested Visits Authorized [id number] New Request Auto-Generat ed Referral 05/18/2024 06/17/2025 1 1 Specialty Diagnoses / Procedures Referred By Contac t Referred To Contact CT IMAGING Diagnoses High grade ovarian cancer (HCC) Procedures CT CHEST W IVCON DIAGNOSTIC COMPUTED TOMOGRAPHY THORAX W/CONTRAST Nile Hall, DO [address] [place] [address] [id number] Referral ID Status Reason Start Date Expiration Date Visits Requested Visits Authorized [id number] New Request Auto-Generat ed Referral 05/18/2024 06/17/2025 1 1 Referral ID Status Reason Start Date Expiration Date Visits Requested Visits Authorized [id number] New Request Auto-Generat ed Referral 05/18/2024 06/17/2025 1 1 Referral ID Status Reason Start Date Expiration Date Visits Requested Visits Authorized [id number] New Request Auto-Generat ed Referral 05/18/2024 06/17/2025 1 1 Referral ID Status Reason Start Date Expiration Date Visits Requested Visits Authorized [id number] Authorized Auto-Generat ed Referral 08/11/2024 09/10/2025 1 1 Referral ID Status Reason Start Date Expiration Date Visits Requested Visits Authorized [id number] Authorized Auto-Generat ed Referral 08/11/2024 09/10/2025 1 1 Specialty Diagnoses / Procedures Referred By Mirta oliver Referred To Contact Diagnoses High grade ovarian cancer (HCC) Preop examination Procedures REFER TO [facility] - PREOPERATIVE OPTIMIZATION OFFICE/OUTPATIENT NEW HIGH MDM 60 MINUTES Karla Ford, CONTESTANT COORDINATOR.PHOTOGRAPHER LITHOGRAPHIC [address] [place] [address] Referral ID Status Reason Start Date Expiration Date Visits Requested Visits Authorized [id number] Authorized PCP Requested Referral 09/01/2025 1 1 Advance Directives No Advanced Directives Records Found Date Activated Date Inactivated Comments 04/16/2024 6:42 PM 09/08/2024 7:13 AM Date Activated Date Inactivated Comments 03/17/2024 9:26 AM 03/25/2024 1:23 AM Question Answer Comments Full Code Order Discussed With: Patient Date Activated Date Inactivated Comments 03/17/2024 9:26 AM 03/25/2024 1:23 AM Question Answer Comments Full Code Order Discussed With: Patient Date Activated Date Inactivated Comments 03/17/2024 9:26 AM Question Answer Comments Full Code Order Discussed With: Patient Date Activated Date Inactivated Comments 03/17/2024 9:26 AM Date Activated Date Inactivated Comments 03/17/2024 9:26 AM 03/25/2024 1:23 AM Date Activated Date Inactivated Comments 04/16/2024 6:42 PM Date Activated Date Inactivated Comments 03/17/2024 9:26 AM 03/25/2024 1:23 AM Question Answer Comments Full Code Order Discussed With: Patient Date Activated Date Inactivated Comments 04/16/2024 6:42 PM Date Activated Date Inactivated Comments 04/16/2024 6:42 PM 09/08/2024 7:13 AM Advance Directive Response Recorded Date/ Time Living Will Yes December 20, 2024 11:07am Power of Investigations Manager Yes December 20 11:07am Name of Medical Power of Investigations Manager - MICAELAR Y December 20, 2024 11:07am Advance Directive Response Recorded Date/ Time Living Will Yes January 05, 2025 2:23pm Do you have a Healthcare Power of Investigations Manager? Yes January 05, 2025 2:23pm Name of Medical Power of Investigations Manager January 05, 2025 2:23pm Living Will Yes December 20, 2024 11:07am Do you have a Healthcare Power of Investigations Manager? Yes December 20, 2024 11:07am Name of Medical Power of Investigations Manager - ROM Monson December 20, 2024 11:07am Advance Directive Response Recorded Date/ Time Living Will Yes January 05, 2025 2:23pm Do you have a Healthcare Power of Investigations Manager? Yes January 05, 2025 2:23pm Name of Medical Power of Investigations Manager January 05, 2025 2:23pm Do you have a Healthcare Power of Investigations Manager? Yes April 22, 2025 2:45pm Summary Purpose Family History No Family History Records Found Additional Source Comments Source Comments (unrecognize d section and content) In the event this informatio n is protected by the Federal Confidentiality of Alcohol and Drug Abuse Patient Records regulations: The Federal rules restrict any use of the information to criminally investigate or prosecute any alcohol or drug abuse patient.[facility] the event this information is protected by the Federal Confidentiality of Alcohol and Drug Abuse Patient Records regulations: The Federal rules restrict any use of the information to criminally investigate or prosecute any alcohol or drug abuse patient.[facility] the event this information is protected by the Federal Confidentiality of Alcohol and Drug Abuse Patient Records regulations: The Federal rules restrict any use of the information to criminally investigate or prosecute any alcohol or drug abuse patient.[facility]In the event this information is protected by the Federal Confidentiality of Alcohol and Drug Abuse Patient Records regulations: The Federal rules restrict any use of the information to criminally investigate or prosecute any alcohol or drug abuse patient.[facility]In the event this information is protected by the Federal Confidentiality of Alcohol and Drug Abuse Patient Records regulations: The Federal rules restrict any use of the information to criminally investigate or prosecute any alcohol or drug abuse patient.[facility]In the event this information is protected by the Federal Confidentiality of Alcohol and Drug Abuse Patient Records regulations: The Federal rules restrict any use of the information to criminally investigate or prosecute any alcohol or drug abuse patient.[facility]In the event this information is protected by the Federal Confidentiality of Alcohol and Drug Abuse Patient Records regulations: The Federal rules restrict any use of the information to criminally investigate or prosecute any alcohol or drug abuse patient.[facility]In the event this information is protected by the Federal Confidentiality of Alcohol and Drug Abuse Patient Records regulations: The Federal rules restrict any use of the information to criminally investigate or prosecute any alcohol or drug abuse patient.[facility]In the event this information is protected by the Federal Confidentiality of Alcohol and Drug Abuse Patient Records regulations: The Federal rules restrict any use of the information to criminally investigate or prosecute any alcohol or drug abuse patient.[facility]In the event this information is protected by the Federal Confidentiality of Alcohol and Drug Abuse Patient Records regulations: The Federal rules restrict any use of the information to criminally investigate or prosecute any alcohol or drug abuse patient.[facility]In the event this information is protected by the Federal Confidentiality of Alcohol and Drug Abuse Patient Records regulations: The Federal rules restrict any use of the information to criminally investigate or prosecute any alcohol or drug abuse patient.[facility]In the event this information is protected by the Federal Confidentiality of Alcohol and Drug Abuse Patient Records regulations: The Federal rules restrict any use of the information to criminally investigate or prosecute any alcohol or drug abuse patient.[facility]In the event this information is protected by the Federal Confidentiality of Alcohol and Drug Abuse Patient Records regulations: The Federal rules restrict any use of the information to criminally investigate or prosecute any alcohol or drug abuse patient.[facility]In the event this information is protected by the Federal Confidentiality of Alcohol and Drug Abuse Patient Records regulations: The Federal rules restrict any use of the information to criminally investigate or prosecute any alcohol or drug abuse patient.[facility]In the event this information is protected by the Federal Confidentiality of Alcohol and Drug Abuse Patient Records regulations: The Federal rules restrict any use of the information to criminally investigate or prosecute any alcohol or drug abuse patient.[facility]In the event this information is protected by the Federal Confidentiality of Alcohol and Drug Abuse Patient Records regulations: The Federal rules restrict any use of the information to criminally investigate or prosecute any alcohol or drug abuse patient.[facility]In the event this information is protected by the Federal Confidentiality of Alcohol and Drug Abuse Patient Records regulations: The Federal rules restrict any use of the information to criminally investigate or prosecute any alcohol or drug abuse patient.[facility]In the event this information is protected by the Federal Confidentiality of Alcohol and Drug Abuse Patient Records regulations: The Federal rules restrict any use of the information to criminally investigate or prosecute any alcohol or drug abuse patient.[facility]In the event this information is protected by the Federal Confidentiality of Alcohol and Drug Abuse Patient Records regulations: The Federal rules restrict any use of the information to criminally investigate or prosecute any alcohol or drug abuse patient.[facility]In the event this information is protected by the Federal Confidentiality of Alcohol and Drug Abuse Patient Records regulations: The Federal rules restrict any use of the information to criminally investigate or prosecute any alcohol or drug abuse patient.[facility]In the event this information is protected by the Federal Confidentiality of Alcohol and Drug Abuse Patient Records regulations: The Federal rules restrict any use of the information to criminally investigate or prosecute any alcohol or drug abuse patient.[facility]In the event this information is protected by the Federal Confidentiality of Alcohol and Drug Abuse Patient Records regulations: The Federal rules restrict any use of the information to criminally investigate or prosecute any alcohol or drug abuse patient.[facility]In the event this information is protected by the Federal Confidentiality of Alcohol and Drug Abuse Patient Records regulations: The Federal rules restrict any use of the information to criminally investigate or prosecute any alcohol or drug abuse patient.[facility]In the event this information is protected by the Federal Confidentiality of Alcohol and Drug Abuse Patient Records regulations: The Federal rules restrict any use of the information to criminally investigate or prosecute any alcohol or drug abuse patient.[facility]In the event this information is protected by the Federal Confidentiality of Alcohol and Drug Abuse Patient Records regulations: The Federal rules restrict any use of the information to criminally investigate or prosecute any alcohol or drug abuse patient.[facility]In the event this information is protected by the Federal Confidentiality of Alcohol and Drug Abuse Patient Records regulations: The Federal rules restrict any use of the information to criminally investigate or prosecute any alcohol or drug abuse patient.[facility]In the event this information is protected by the Federal Confidentiality of Alcohol and Drug Abuse Patient Records regulations: The Federal rules restrict any use of the information to criminally investigate or prosecute any alcohol or drug abuse patient.[facility]In the event this information is protected by the Federal Confidentiality of Alcohol and Drug Abuse Patient Records regulations: The Federal rules restrict any use of the information to criminally investigate or prosecute any alcohol or drug abuse patient.[facility]In the event this information is protected by the Federal Confidentiality of Alcohol and Drug Abuse Patient Records regulations: The Federal rules restrict any use of the information to criminally investigate or prosecute any alcohol or drug abuse patient.[facility]In the event this information is protected by the Federal Confidentiality of Alcohol and Drug Abuse Patient Records regulations: The Federal rules restrict any use of the information to criminally investigate or prosecute any alcohol or drug abuse patient.[facility] HospitalIn the event this information is protected by the Federal Confidentiality of Alcohol and Drug Abuse Patient Records regulations: The Federal rules restrict any use of the information to criminally investigate or prosecute any alcohol or drug abuse patient.[facility]In the event this information is protected by the Federal Confidentiality of Alcohol and Drug Abuse Patient Records regulations: The Federal rules restrict any use of the information to criminally investigate or prosecute any alcohol or drug abuse patient.[facility]In the event this information is protected by the Federal Confidentiality of Alcohol and Drug Abuse Patient Records regulations: The Federal rules restrict any use of the information to criminally investigate or prosecute any alcohol or drug abuse patient.[facility] HospitalIn the event this information is protected by the Federal Confidentiality of Alcohol and Drug Abuse Patient Records regulations: The Federal rules restrict any use of the information to criminally investigate or prosecute any alcohol or drug abuse patient.[facility] HospitalIn the event this information is protected by the Federal Confidentiality of Alcohol and Drug Abuse Patient Records regulations: The Federal rules restrict any use of the information to criminally investigate or prosecute any alcohol or drug abuse patient.[facility]In the event this information is protected by the Federal Confidentiality of Alcohol and Drug Abuse Patient Records regulations: The Federal rules restrict any use of the information to criminally investigate or prosecute any alcohol or drug abuse patient.[facility]In the event this information is protected by the Federal Confidentiality of Alcohol and Drug Abuse Patient Records regulations: The Federal rules restrict any use of the information to criminally investigate or prosecute any alcohol or drug abuse patient.[facility] HospitalIn the event this information is protected by the Federal Confidentiality of Alcohol and Drug Abuse Patient Records regulations: The Federal rules restrict any use of the information to criminally investigate or prosecute any alcohol or drug abuse patient.[facility]In the event this information is protected by the Federal Confidentiality of Alcohol and Drug Abuse Patient Records regulations: The Federal rules restrict any use of the information to criminally investigate or prosecute any alcohol or drug abuse patient.[facility]In the event this information is protected by the Federal Confidentiality of Alcohol and Drug Abuse Patient Records regulations: The Federal rules restrict any use of the information to criminally investigate or prosecute any alcohol or drug abuse patient.[facility] HospitalIn the event this information is protected by the Federal Confidentiality of Alcohol and Drug Abuse Patient Records regulations: The Federal rules restrict any use of the information to criminally investigate or prosecute any alcohol or drug abuse patient.[facility] HospitalIn the event this information is protected by the Federal Confidentiality of Alcohol and Drug Abuse Patient Records regulations: The Federal rules restrict any use of the information to criminally investigate or prosecute any alcohol or drug abuse patient.[facility]In the event this information is protected by the Federal Confidentiality of Alcohol and Drug Abuse Patient Records regulations: The Federal rules restrict any use of the information to criminally investigate or prosecute any alcohol or drug abuse patient.[facility] HospitalIn the event this information is protected by the Federal Confidentiality of Alcohol and Drug Abuse Patient Records regulations: The Federal rules restrict any use of the information to criminally investigate or prosecute any alcohol or drug abuse patient.[facility] HospitalIn the event this information is protected by the Federal Confidentiality of Alcohol and Drug Abuse Patient Records regulations: The Federal rules restrict any use of the information to criminally investigate or prosecute any alcohol or drug abuse patient.[facility] HospitalIn the event this information is protected by the Federal Confidentiality of Alcohol and Drug Abuse Patient Records regulations: The Federal rules restrict any use of the information to criminally investigate or prosecute any alcohol or drug abuse patient.[facility] HospitalIn the event this information is protected by the Federal Confidentiality of Alcohol and Drug Abuse Patient Records regulations: The Federal rules restrict any use of the information to criminally investigate or prosecute any alcohol or drug abuse patient.[facility] HospitalIn the event this information is protected by the Federal Confidentiality of Alcohol and Drug Abuse Patient Records regulations: The Federal rules restrict any use of the information to criminally investigate or prosecute any alcohol or drug abuse patient.[facility] HospitalIn the event this information is protected by the Federal Confidentiality of Alcohol and Drug Abuse Patient Records regulations: The Federal rules restrict any use of the information to criminally investigate or prosecute any alcohol or drug abuse patient.[facility] HospitalIn the event this information is protected by the Federal Confidentiality of Alcohol and Drug Abuse Patient Records regulations: The Federal rules restrict any use of the information to criminally investigate or prosecute any alcohol or drug abuse patient.[facility] HospitalIn the event this information is protected by the Federal Confidentiality of Alcohol and Drug Abuse Patient Records regulations: The Federal rules restrict any use of the information to criminally investigate or prosecute any alcohol or drug abuse patient.[facility]In the event this information is protected by the Federal Confidentiality of Alcohol and Drug Abuse Patient Records regulations: The Federal rules restrict any use of the information to criminally investigate or prosecute any alcohol or drug abuse patient.[facility] HospitalIn the event this information is protected by the Federal Confidentiality of Alcohol and Drug Abuse Patient Records regulations: The Federal rules restrict any use of the information to criminally investigate or prosecute any alcohol or drug abuse patient.[facility] HospitalIn the event this information is protected by the Federal Confidentiality of Alcohol and Drug Abuse Patient Records regulations: The Federal rules restrict any use of the information to criminally investigate or prosecute any alcohol or drug abuse patient.[facility]In the event this information is protected by the Federal Confidentiality of Alcohol and Drug Abuse Patient Records regulations: The Federal rules restrict any use of the information to criminally investigate or prosecute any alcohol or drug abuse patient.[facility]In the event this information is protected by the Federal Confidentiality of Alcohol and Drug Abuse Patient Records regulations: The Federal rules restrict any use of the information to criminally investigate or prosecute any alcohol or drug abuse patient.[facility]In the event this information is protected by the Federal Confidentiality of Alcohol and Drug Abuse Patient Records regulations: The Federal rules restrict any use of the information to criminally investigate or prosecute any alcohol or drug abuse patient.[facility]In the event this information is protected by the Federal Confidentiality of Alcohol and Drug Abuse Patient Records regulations: The Federal rules restrict any use of the information to criminally investigate or prosecute any alcohol or drug abuse patient.[facility]In the event this information is protected by the Federal Confidentiality of Alcohol and Drug Abuse Patient Records regulations: The Federal rules restrict any use of the information to criminally investigate or prosecute any alcohol or drug abuse patient.[facility]In the event this information is protected by the Federal Confidentiality of Alcohol and Drug Abuse Patient Records regulations: The Federal rules restrict any use of the information to criminally investigate or prosecute any alcohol or drug abuse patient.[facility]In the event this information is protected by the Federal Confidentiality of Alcohol and Drug Abuse Patient Records regulations: The Federal rules restrict any use of the information to criminally investigate or prosecute any alcohol or drug abuse patient.[facility]In the event this information is protected by the Federal Confidentiality of Alcohol and Drug Abuse Patient Records regulations: The Federal rules restrict any use of the information to criminally investigate or prosecute any alcohol or drug abuse patient.[facility]In the event this information is protected by the Federal Confidentiality of Alcohol and Drug Abuse Patient Records regulations: The Federal rules restrict any use of the information to criminally investigate or prosecute any alcohol or drug abuse patient.[facility] HospitalIn the event this information is protected by the Federal Confidentiality of Alcohol and Drug Abuse Patient Records regulations: The Federal rules restrict any use of the information to criminally investigate or prosecute any alcohol or drug abuse patient.[facility] HospitalIn the event this information is protected by the Federal Confidentiality of Alcohol and Drug Abuse Patient Records regulations: The Federal rules restrict any use of the information to criminally investigate or prosecute any alcohol or drug abuse patient.[facility] HospitalIn the event this information is protected by the Federal Confidentiality of Alcohol and Drug Abuse Patient Records regulations: The Federal rules restrict any use of the information to criminally investigate or prosecute any alcohol or drug abuse patient.[facility]In the event this information is protected by the Federal Confidentiality of Alcohol and Drug Abuse Patient Records regulations: The Federal rules restrict any use of the information to criminally investigate or prosecute any alcohol or drug abuse patient.[facility] HospitalIn the event this information is protected by the Federal Confidentiality of Alcohol and Drug Abuse Patient Records regulations: The Federal rules restrict any use of the information to criminally investigate or prosecute any alcohol or drug abuse patient.[facility]In the event this information is protected by the Federal Confidentiality of Alcohol and Drug Abuse Patient Records regulations: The Federal rules restrict any use of the information to criminally investigate or prosecute any alcohol or drug abuse patient.[facility]In the event this information is protected by the Federal Confidentiality of Alcohol and Drug Abuse Patient Records regulations: The Federal rules restrict any use of the information to criminally investigate or prosecute any alcohol or drug abuse patient.[facility] HospitalIn the event this information is protected by the Federal Confidentiality of Alcohol and Drug Abuse Patient Records regulations: The Federal rules restrict any use of the information to criminally investigate or prosecute any alcohol or drug abuse patient.[facility] HospitalIn the event this information is protected by the Federal Confidentiality of Alcohol and Drug Abuse Patient Records regulations: The Federal rules restrict any use of the information to criminally investigate or prosecute any alcohol or drug abuse patient.[facility] HospitalIn the event this information is protected by the Federal Confidentiality of Alcohol and Drug Abuse Patient Records regulations: The Federal rules restrict any use of the information to criminally investigate or prosecute any alcohol or drug abuse patient.[facility] HospitalIn the event this information is protected by the Federal Confidentiality of Alcohol and Drug Abuse Patient Records regulations: The Federal rules restrict any use of the information to criminally investigate or prosecute any alcohol or drug abuse patient.[facility] HospitalIn the event this information is protected by the Federal Confidentiality of Alcohol and Drug Abuse Patient Records regulations: The Federal rules restrict any use of the information to criminally investigate or prosecute any alcohol or drug abuse patient.[facility] HospitalIn the event this information is protected by the Federal Confidentiality of Alcohol and Drug Abuse Patient Records regulations: The Federal rules restrict any use of the information to criminally investigate or prosecute any alcohol or drug abuse patient.[facility] HospitalIn the event this information is protected by the Federal Confidentiality of Alcohol and Drug Abuse Patient Records regulations: The Federal rules restrict any use of the information to criminally investigate or prosecute any alcohol or drug abuse patient.[facility] HospitalIn the event this information is protected by the Federal Confidentiality of Alcohol and Drug Abuse Patient Records regulations: The Federal rules restrict any use of the information to criminally investigate or prosecute any alcohol or drug abuse patient.[facility] HospitalIn the event this information is protected by the Federal Confidentiality of Alcohol and Drug Abuse Patient Records regulations: The Federal rules restrict any use of the information to criminally investigate or prosecute any alcohol or drug abuse patient.[facility] HospitalIn the event this information is protected by the Federal Confidentiality of Alcohol and Drug Abuse Patient Records regulations: The Federal rules restrict any use of the information to criminally investigate or prosecute any alcohol or drug abuse patient.[facility] HospitalIn the event this information is protected by the Federal Confidentiality of Alcohol and Drug Abuse Patient Records regulations: The Federal rules restrict any use of the information to criminally investigate or prosecute any alcohol or drug abuse patient.[facility] HospitalIn the event this information is protected by the Federal Confidentiality of Alcohol and Drug Abuse Patient Records regulations: The Federal rules restrict any use of the information to criminally investigate or prosecute any alcohol or drug abuse patient.[facility] HospitalIn the event this information is protected by the Federal Confidentiality of Alcohol and Drug Abuse Patient Records regulations: The Federal rules restrict any use of the information to criminally investigate or prosecute any alcohol or drug abuse patient.[facility] HospitalIn the event this information is protected by the Federal Confidentiality of Alcohol and Drug Abuse Patient Records regulations: The Federal rules restrict any use of the information to criminally investigate or prosecute any alcohol or drug abuse patient.[facility] HospitalIn the event this information is protected by the Federal Confidentiality of Alcohol and Drug Abuse Patient Records regulations: The Federal rules restrict any use of the information to criminally investigate or prosecute any alcohol or drug abuse patient.[facility] HospitalIn the event this information is protected by the Federal Confidentiality of Alcohol and Drug Abuse Patient Records regulations: The Federal rules restrict any use of the information to criminally investigate or prosecute any alcohol or drug abuse patient.[facility] HospitalIn the event this information is protected by the Federal Confidentiality of Alcohol and Drug Abuse Patient Records regulations: The Federal rules restrict any use of the information to criminally investigate or prosecute any alcohol or drug abuse patient.[facility] HospitalIn the event this information is protected by the Federal Confidentiality of Alcohol and Drug Abuse Patient Records regulations: The Federal rules restrict any use of the information to criminally investigate or prosecute any alcohol or drug abuse patient.[facility] HospitalIn the event this information is protected by the Federal Confidentiality of Alcohol and Drug Abuse Patient Records regulations: The Federal rules restrict any use of the information to criminally investigate or prosecute any alcohol or drug abuse patient.[facility] HospitalIn the event this information is protected by the Federal Confidentiality of Alcohol and Drug Abuse Patient Records regulations: The Federal rules restrict any use of the information to criminally investigate or prosecute any alcohol or drug abuse patient.[facility] HospitalIn the event this information is protected by the Federal Confidentiality of Alcohol and Drug Abuse Patient Records regulations: The Federal rules restrict any use of the information to criminally investigate or prosecute any alcohol or drug abuse patient.[facility] HospitalIn the event this information is protected by the Federal Confidentiality of Alcohol and Drug Abuse Patient Records regulations: The Federal rules restrict any use of the information to criminally investigate or prosecute any alcohol or drug abuse patient.[facility] HospitalIn the event this information is protected by the Federal Confidentiality of Alcohol and Drug Abuse Patient Records regulations: The Federal rules restrict any use of the information to criminally investigate or prosecute any alcohol or drug abuse patient.[facility] HospitalIn the event this information is protected by the Federal Confidentiality of Alcohol and Drug Abuse Patient Records regulations: The Federal rules restrict any use of the information to criminally investigate or prosecute any alcohol or drug abuse patient.[facility] HospitalIn the event this information is protected by the Federal Confidentiality of Alcohol and Drug Abuse Patient Records regulations: The Federal rules restrict any use of the information to criminally investigate or prosecute any alcohol or drug abuse patient.[facility] HospitalIn the event this information is protected by the Federal Confidentiality of Alcohol and Drug Abuse Patient Records regulations: The Federal rules restrict any use of the information to criminally investigate or prosecute any alcohol or drug abuse patient.[facility] HospitalIn the event this information is protected by the Federal Confidentiality of Alcohol and Drug Abuse Patient Records regulations: The Federal rules restrict any use of the information to criminally investigate or prosecute any alcohol or drug abuse patient.[facility] HospitalIn the event this information is protected by the Federal Confidentiality of Alcohol and Drug Abuse Patient Records regulations: The Federal rules restrict any use of the information to criminally investigate or prosecute any alcohol or drug abuse patient.[facility] HospitalIn the event this information is protected by the Federal Confidentiality of Alcohol and Drug Abuse Patient Records regulations: The Federal rules restrict any use of the information to criminally investigate or prosecute any alcohol or drug abuse patient.[facility] HospitalIn the event this information is protected by the Federal Confidentiality of Alcohol and Drug Abuse Patient Records regulations: The Federal rules restrict any use of the information to criminally investigate or prosecute any alcohol or drug abuse patient.[facility] HospitalIn the event this information is protected by the Federal Confidentiality of Alcohol and Drug Abuse Patient Records regulations: The Federal rules restrict any use of the information to criminally investigate or prosecute any alcohol or drug abuse patient.[facility] HospitalIn the event this information is protected by the Federal Confidentiality of Alcohol and Drug Abuse Patient Records regulations: The Federal rules restrict any use of the information to criminally investigate or prosecute any alcohol or drug abuse patient.[facility] HospitalIn the event this information is protected by the Federal Confidentiality of Alcohol and Drug Abuse Patient Records regulations: The Federal rules restrict any use of the information to criminally investigate or prosecute any alcohol or drug abuse patient.[facility] HospitalIn the event this information is protected by the Federal Confidentiality of Alcohol and Drug Abuse Patient Records regulations: The Federal rules restrict any use of the information to criminally investigate or prosecute any alcohol or drug abuse patient.[facility] HospitalIn the event this information is protected by the Federal Confidentiality of Alcohol and Drug Abuse Patient Records regulations: The Federal rules restrict any use of the information to criminally investigate or prosecute any alcohol or drug abuse patient.[facility] HospitalIn the event this information is protected by the Federal Confidentiality of Alcohol and Drug Abuse Patient Records regulations: The Federal rules restrict any use of the information to criminally investigate or prosecute any alcohol or drug abuse patient.[facility] HospitalIn the event this information is protected by the Federal Confidentiality of Alcohol and Drug Abuse Patient Records regulations: The Federal rules restrict any use of the information to criminally investigate or prosecute any alcohol or drug abuse patient.[facility] HospitalIn the event this information is protected by the Federal Confidentiality of Alcohol and Drug Abuse Patient Records regulations: The Federal rules restrict any use of the information to criminally investigate or prosecute any alcohol or drug abuse patient.[facility] HospitalIn the event this information is protected by the Federal Confidentiality of Alcohol and Drug Abuse Patient Records regulations: The Federal rules restrict any use of the information to criminally investigate or prosecute any alcohol or drug abuse patient.[facility] HospitalIn the event this information is protected by the Federal Confidentiality of Alcohol and Drug Abuse Patient Records regulations: The Federal rules restrict any use of the information to criminally investigate or prosecute any alcohol or drug abuse patient.[facility] HospitalIn the event this information is protected by the Federal Confidentiality of Alcohol and Drug Abuse Patient Records regulations: The Federal rules restrict any use of the information to criminally investigate or prosecute any alcohol or drug abuse patient.[facility] HospitalIn the event this information is protected by the Federal Confidentiality of Alcohol and Drug Abuse Patient Records regulations: The Federal rules restrict any use of the information to criminally investigate or prosecute any alcohol or drug abuse patient.[facility] HospitalIn the event this information is protected by the Federal Confidentiality of Alcohol and Drug Abuse Patient Records regulations: The Federal rules restrict any use of the information to criminally investigate or prosecute any alcohol or drug abuse patient.[facility] HospitalIn the event this information is protected by the Federal Confidentiality of Alcohol and Drug Abuse Patient Records regulations: The Federal rules restrict any use of the information to criminally investigate or prosecute any alcohol or drug abuse patient.[facility] HospitalIn the event this information is protected by the Federal Confidentiality of Alcohol and Drug Abuse Patient Records regulations: The Federal rules restrict any use of the information to criminally investigate or prosecute any alcohol or drug abuse patient.[facility] HospitalIn the event this information is protected by the Federal Confidentiality of Alcohol and Drug Abuse Patient Records regulations: The Federal rules restrict any use of the information to criminally investigate or prosecute any alcohol or drug abuse patient.[facility] HospitalIn the event this information is protected by the Federal Confidentiality of Alcohol and Drug Abuse Patient Records regulations: The Federal rules restrict any use of the information to criminally investigate or prosecute any alcohol or drug abuse patient.[facility] HospitalIn the event this information is protected by the Federal Confidentiality of Alcohol and Drug Abuse Patient Records regulations: The Federal rules restrict any use of the information to criminally investigate or prosecute any alcohol or drug abuse patient.[facility] HospitalIn the event this information is protected by the Federal Confidentiality of Alcohol and Drug Abuse Patient Records regulations: The Federal rules restrict any use of the information to criminally investigate or prosecute any alcohol or drug abuse patient.[facility] HospitalIn the event this information is protected by the Federal Confidentiality of Alcohol and Drug Abuse Patient Records regulations: The Federal rules restrict any use of the information to criminally investigate or prosecute any alcohol or drug abuse patient.[facility] HospitalIn the event this information is protected by the Federal Confidentiality of Alcohol and Drug Abuse Patient Records regulations: The Federal rules restrict any use of the information to criminally investigate or prosecute any alcohol or drug abuse patient.[facility]In the event this information is protected by the Federal Confidentiality of Alcohol and Drug Abuse Patient Records regulations: The Federal rules restrict any use of the information to criminally investigate or prosecute any alcohol or drug abuse patient.[facility]In the event this information is protected by the Federal Confidentiality of Alcohol and Drug Abuse Patient Records regulations: The Federal rules restrict any use of the information to criminally investigate or prosecute any alcohol or drug abuse patient.[facility]In the event this information is protected by the Federal Confidentiality of Alcohol and Drug Abuse Patient Records regulations: The Federal rules restrict any use of the information to criminally investigate or prosecute any alcohol or drug abuse patient.[facility] HospitalIn the event this information is protected by the Federal Confidentiality of Alcohol and Drug Abuse Patient Records regulations: The Federal rules restrict any use of the information to criminally investigate or prosecute any alcohol or drug abuse patient.[facility]In the event this information is protected by the Federal Confidentiality of Alcohol and Drug Abuse Patient Records regulations: The Federal rules restrict any use of the information to criminally investigate or prosecute any alcohol or drug abuse patient.[facility]In the event this information is protected by the Federal Confidentiality of Alcohol and Drug Abuse Patient Records regulations: The Federal rules restrict any use of the information to criminally investigate or prosecute any alcohol or drug abuse patient.[facility]In the event this information is protected by the Federal Confidentiality of Alcohol and Drug Abuse Patient Records regulations: The Federal rules restrict any use of the information to criminally investigate or prosecute any alcohol or drug abuse patient.[facility]In the event this information is protected by the Federal Confidentiality of Alcohol and Drug Abuse Patient Records regulations: The Federal rules restrict any use of the information to criminally investigate or prosecute any alcohol or drug abuse patient.[facility]In the event this information is protected by the Federal Confidentiality of Alcohol and Drug Abuse Patient Records regulations: The Federal rules restrict any use of the information to criminally investigate or prosecute any alcohol or drug abuse patient.[facility] HospitalIn the event this information is protected by the Federal Confidentiality of Alcohol and Drug Abuse Patient Records regulations: The Federal rules restrict any use of the information to criminally investigate or prosecute any alcohol or drug abuse patient.[facility]In the event this information is protected by the Federal Confidentiality of Alcohol and Drug Abuse Patient Records regulations: The Federal rules restrict any use of the information to criminally investigate or prosecute any alcohol or drug abuse patient.[facility]In the event this information is protected by the Federal Confidentiality of Alcohol and Drug Abuse Patient Records regulations: The Federal rules restrict any use of the information to criminally investigate or prosecute any alcohol or drug abuse patient.[facility]In the event this information is protected by the Federal Confidentiality of Alcohol and Drug Abuse Patient Records regulations: The Federal rules restrict any use of the information to criminally investigate or prosecute any alcohol or drug abuse patient.[facility]In the event this information is protected by the Federal Confidentiality of Alcohol and Drug Abuse Patient Records regulations: The Federal rules restrict any use of the information to criminally investigate or prosecute any alcohol or drug abuse patient.[facility]In the event this information is protected by the Federal Confidentiality of Alcohol and Drug Abuse Patient Records regulations: The Federal rules restrict any use of the information to criminally investigate or prosecute any alcohol or drug abuse patient.[facility]In the event this information is protected by the Federal Confidentiality of Alcohol and Drug Abuse Patient Records regulations: The Federal rules restrict any use of the information to criminally investigate or prosecute any alcohol or drug abuse patient.[facility]In the event this information is protected by the Federal Confidentiality of Alcohol and Drug Abuse Patient Records regulations: The Federal rules restrict any use of the information to criminally investigate or prosecute any alcohol or drug abuse patient.[facility]In the event this information is protected by the Federal Confidentiality of Alcohol and Drug Abuse Patient Records regulations: The Federal rules restrict any use of the information to criminally investigate or prosecute any alcohol or drug abuse patient.[facility]In the event this information is protected by the Federal Confidentiality of Alcohol and Drug Abuse Patient Records regulations: The Federal rules restrict any use of the information to criminally investigate or prosecute any alcohol or drug abuse patient.[facility]In the event this information is protected by the Federal Confidentiality of Alcohol and Drug Abuse Patient Records regulations: The Federal rules restrict any use of the information to criminally investigate or prosecute any alcohol or drug abuse patient.[facility]In the event this information is protected by the Federal Confidentiality of Alcohol and Drug Abuse Patient Records regulations: The Federal rules restrict any use of the information to criminally investigate or prosecute any alcohol or drug abuse patient.[facility]In the event this information is protected by the Federal Confidentiality of Alcohol and Drug Abuse Patient Records regulations: The Federal rules restrict any use of the information to criminally investigate or prosecute any alcohol or drug abuse patient.[facility]In the event this information is protected by the Federal Confidentiality of Alcohol and Drug Abuse Patient Records regulations: The Federal rules restrict any use of the information to criminally investigate or prosecute any alcohol or drug abuse patient.[facility]In the event this information is protected by the Federal Confidentiality of Alcohol and Drug Abuse Patient Records regulations: The Federal rules restrict any use of the information to criminally investigate or prosecute any alcohol or drug abuse patient.[facility]In the event this information is protected by the Federal Confidentiality of Alcohol and Drug Abuse Patient Records regulations: The Federal rules restrict any use of the information to criminally investigate or prosecute any alcohol or drug abuse patient.[facility]In the event this information is protected by the Federal Confidentiality of Alcohol and Drug Abuse Patient Records regulations: The Federal rules restrict any use of the information to criminally investigate or prosecute any alcohol or drug abuse patient.[facility] Reason for Visit (unrecogniz ed section and content) Reason Comments Established Patient Specialty Diagnoses / Procedures Referred By Contharleen t Referred To Contact Diagnoses High grade ovarian cancer (HCC) Ovarian cancer, bilateral (HCC) Procedures INJ., ZIRABEV, 10 MG Nile Hall DO [address] [place] [address] Phone: tel: fax: Nile Hall DO [address] [place] [address] Phone: tel: fax: Referral ID Status Reason Start Date Expiration Date V isits Requested Visits Authorized [id number] Authorized 12/10/2024 12/10/2025 99 99 Reason Onset Date Comments Population Health Navigation Outreach 12/26/2021 [employer] Gaps Reason Comments Physical Reason Comments Patient Question Reason Comments Ear Problem Ears feel clogged x 1 week Reason Onset Date Comments Refill Request 06/17/2023 Reason Comments Refill Request Reason Comments Information Reason Comments stomach problem Reason Comments Established Patient Change in IBS Reason Comments Question Reason Comments Radiology CT Specialty Diagnoses / Procedures Referred By Contac t Referred To Contact CT IMAGING Diagnoses Generalized abdominal pain Abdominal bloating Procedures CT ABD/PEL W IVCON CT ABD & PELVIS W/CONTRAST Romel Michelle MD [address] [place] [address] [place] [id number] Referral ID Status Reason Start Date Expiration Date V isits Requested Visits Authorized [id number] Closed Auto-Generate d Referral 03/09/2024 10/05/2024 1 1 Reason Comments New Patient Reason Comments Consult Specialty Diagnoses / Procedures Referred By Contac t Referred To Contact Diagnoses Pelvic mass Procedures CONSULT TO GYNECOLOGIC/ONCOLOGY OFFICE/OUTPATIENT NEW HIGH MDM 60 MINUTES Romel Michelle MD [address] [place] [address] Referral ID Status Reason Start Date Expiration Date V isits Requested Visits Authorized [id number] Closed PCP Requested Referral Auto-Generated Referral 03/11/2024 03/10/2025 1 1 Reason Comments Boot Trimmer - Other Reason Onset Date Comments Pre-Op Teaching 03/16/2024 Specialty Diagnoses / Procedures Referred By Contac t Referred To Contact CT IMAGING Diagnoses Pelvic mass Procedures CT CHEST WO IVCON DIAGNOSTIC COMPUTED TOMOGRAPHY THORAX W/[place] [address] [place] [address] [place] [address] Referral ID Status Reason Start Date Expiration Date V isits Requested Visits Authorized [id number] Closed Auto-Generate d Referral 03/16/2024 10/05/2024 1 1 Reason Comments Results Reason Comments Home Care MD to follow for [facility] . Reason Onset Date Comments Transition Of Care 03/26/2024 TCM RelateCar e Non-Response Reason Onset Date Comments Transition Of Care 03/31/2024 TCM (Fabric V alue Based non response follow up) Reason Comments Patient Question Reason Comments Anesthesia Consult Reason Onset Date Comments Transition Of Care 04/06/2024 Fabric Value Based Non-Response Follow up Reason Comments Home Care Confirmation call Specialty Diagnoses / Procedures Referred By Contac t Referred To Contact HOME [facility]ARE [facility] Home Care [address] [place] [address] Referral ID Status Reason Start Date Expiration Date Visits Re quested Visits Authorized [id number] 1 1 Reason Comments Post Op Reason Comments Consult Specialty Diagnoses / Procedures Referred By Contac t Referred To Contact Diagnoses High grade ovarian cancer (HCC) Procedures CONSULT TO HEMATOLOGY/ONCOLOGY OFFICE/OUTPATIENT [facility] 60 [place] [address] [place] [address] Nile Hall, DO [address] [facility] [place] [address] Referral ID Status Reason Start Date Expiration Date V isits Requested Visits Authorized [id number] Closed PCP Requested Referral 04/19/2024 04/19/2025 1 1 Reason Onset Date Comments ACM ARIC RN 04/22/2024 ED Utilizatio n review per payer request Reason Comments First Time Treatment Education Carboplat in/Taxol Reason Comments Benefits Investigation Reason Comments Nutrition Assessment Reason Comments Chemotherapy Treatment Specialty Diagnoses / Procedures Referred By Contac t Referred To Contact Diagnoses High grade ovarian cancer (HCC) Procedures CARBOPLATIN INJECTION PALONOSETRON HCL FOSAPREPITANT INJECTION PACLITAXEL INJECTION Nile Hall, DO [address] [facility] [place] [address] [facility] [address] [place] [address] Referral ID Status Reason Start Date Expiration Date V isits Requested Visits Authorized [id number] Authorized 04/23/2024 10/05/2024 99 99 Reason Comments Boot Trimmer - Other C1D1 Post Treat ment Call (Carboplatin/Paclitaxel) Reason Comments Established Patient Reason Comments Nutrition Counseling Reason Comments Erroneous encounter-disregard Reason Comments Ovarian Cancer Specialty Diagnoses / Procedures Referred By Contac t Referred To Contact Diagnoses Abdominal bloating Pelvic mass High grade ovarian cancer (HCC) Procedures CONSULT TO MEDICAL GENETICS - CANCER MEDICAL GENETICS COUNSELING EACH 30 MINUTES Carey Elias, SABRINA.PHOTOGRAPHER LITHOGRAPHIC [address] [place] [address] [facility] [address] [place] [address] Referral ID Status Reason Start Date Expiration Date V isits Requested Visits Authorized [id number] Closed PCP Requested Referral Auto-Generated Referral 04/19/2024 04/19/2025 1 1 Reason Comments Follow Up Reason Comments Nutrition Telephone Reason Comments Radiology CT Specialty Diagnoses / Procedures Referred By Contac t Referred To Contact CT IMAGING Diagnoses High grade ovarian cancer (HCC) Procedures CT ABD/PEL W IVCON CT ABD & PELVIS W/CONTRAST Nile Hall, DO [address] [place] [address] [place] [address] Referral ID Status Reason Start Date Expiration Date V isits Requested Visits Authorized [id number] Closed Auto-Generate d Referral 05/18/2024 06/17/2025 1 1 Specialty Diagnoses / Procedures Referred By Contac t Referred To Contact CT IMAGING Diagnoses High grade ovarian cancer (HCC) Procedures CT ABD/PEL W IVCON CT ABD & PELVIS W/CONTRAST Nile Hall, DO [address] [facility] [address] [place] [address] Reason Comments Home Care Need to extend SN vi sits for home health 1wk2. Reason Comments Home Care Request for extensio n on SN visit orders. Reason Comments Results Reason Comments Research IRB#: [id number]/ [id number] HLA results Reason Comments Research Specialty Diagnoses / Procedures Referred By Contac t Referred To Contact CT IMAGING Diagnoses High grade ovarian cancer (HCC) Procedures CT CHEST W IVCON DIAGNOSTIC COMPUTED TOMOGRAPHY THORAX W/CONTRAST Nile Hall, DO [address] [facility] [place] [address] [place] [address] Referral ID Status Reason Start Date Expiration Date V isits Requested Visits Authorized [id number] Closed Auto-Generate d Referral 08/11/2024 09/10/2025 1 1 Specialty Diagnoses / Procedures Referred By [facility] Referred To Contact CT IMAGING Diagnoses High grade ovarian cancer (HCC) Procedures CT CHEST W IVCON DIAGNOSTIC COMPUTED TOMOGRAPHY THORAX W/CONTRAST Nile Hall DO [address] [place] [address] [place] [address] Reason Comments Appointment Reason Comments Appointment 1st attempt for Pre & Post-Op Instructions. Left message to call provider's office. Reason Onset Date Comments Pre-Op Teaching 09/03/2024 Reason Comments Chemotherapy Follow-up Reason Comments Returning Patient's Call Reason Comments Home Care MD to Follow Reason Comments Home Care Confirmation call. Reason Comments Post-Op Visit Reason Onset Date Comments Transition Of Care 09/15/2024 tcm d/c Reason Comments Patient Question Patient Update Reason Comments Boot Trimmer - Other Patient Update Reason Comments Patient Update Reason Comments Boot Trimmer - Other Hospital Discha rge Reason Comments Appointment Reason Comments Appointment Patient Update Reason Comments Medication Request Specialty Diagnoses / Procedures Referred By [facility] Referred To Contact Diagnoses High grade ovarian cancer (HCC) Procedures CARBOPLATIN INJECTION PALONOSETRON HCL FOSAPREPITANT INJECTION PACLITAXEL INJECTION Nile Hall DO [address] [place] [address] [facility] [address] [place] [address] Referral ID Status Reason Start Date Expiration Date V isits Requested Visits Authorized [id number] Authorized 04/23/2024 10/05/2025 99 99 Reason Comments Established Patient Reason Comments AVS 12/02 Specialty Diagnoses / Procedures Referred By [facility] Referred To Contact Diagnoses High grade ovarian cancer (HCC) Procedures CARBOPLATIN INJECTION PALONOSETRON HCL FOSAPREPITANT INJECTION PACLITAXEL INJECTION Nile Hall DO [address] [place] [address] Phone: tel: fax: Hematology/Oncology [address] [place] [address] Phone: tel: fax: Specialty Diagnoses / Procedures Referred By Contac t Referred To Contact CT IMAGING Diagnoses High grade ovarian cancer (HCC) Procedures CT ABD/PEL W IVCON CT ABD & PELVIS W/CONTRAST Nile Hall, DO [address] [place] [address] Phone: tel: fax: [place] [address] Referral ID Status Reason Start Date Expiration Date V isits Requested Visits Authorized [id number] Closed Auto-Generate d Referral 12/02/2024 01/01/2026 1 1 Reason Comments First Time Treatment Education Avastin Reason Comments Boot Trimmer - Other C1D1 Post Treat ment Call (Avastin) Reason Onset Date Comments Population Health Navigation Outreach 01/18/2025 [employer] [facility] Reason Onset Date Comments SPP Oral Oncology/hematology - Treatment Referra l 03/03/2025 Zejula 300mg Insurance Authorization 03/03/2025 Pending PA Reason Comments Non-Chemotherapy Treatment Specialty Diagnoses / Procedures Referred By Contac t Referred To Contact Diagnoses Iron malabsorption (HCC) 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 loss Procedures IRON SUCROSE INJECTION PER 1 MG Nile Hall, DO [address] [facility] [place] [address] Phone: tel: fax: Nile Hall, DO [address] [facility] [place] [address] Phone: tel: fax: Referral ID Status Reason Start Date Expiration Date V isits Requested Visits Authorized [id number] Authorized 03/04/2025 10/05/2025 0 99 Reason Comments Boot Trimmer - Other Oral Anti-Cance r Agents Education (Zejula) Reason Onset Date Comments Refill Request 03/14/2025 Reason Comments Care Coordination Start Zejula Reason Comments Results platelet 23 Care Teams (unrecognized sec tion and content) B And B Gang Worker Relationship Specialty Start Date End Date Romel Michelle MD [address] [place] [address] PCP - General Internal Medicine 05/23/11 B And B Gang Worker Relationship Specialty Start Date End Date Romel Michelle MD [address] [facility] [place] [address] PCP - General Internal Medicine 05/23/11 B And B Gang Worker Relationship Specialty Start Date End Date Romel Michelle MD [address] [facility] [place] [address] PCP - General Internal Medicine 05/23/11 B And B Gang Worker Relationship Specialty Start Date End Date Romel Michelle MD [address] [facility] [place] [address] PCP - General Internal Medicine 05/23/11 B And B Gang Worker Relationship Specialty Start Date End Date Romel Michelle MD [address] [facility] [place] [address] PCP - General Internal Medicine 05/23/11 B And B Gang Worker Relationship Specialty Start Date End Date Romel Michelle MD [address] [facility] [place] [address] PCP - General Internal Medicine 05/23/11 B And B Gang Worker Relationship Specialty Start Date End Date Romel Michelle MD [address] [facility] [place] [address] PCP - General Internal Medicine 05/23/11 B And B Gang Worker Relationship Specialty Start Date End Date Romel Michelle MD [address] [facility] [place] [address] PCP - General Internal Medicine 05/23/11 B And B Gang Worker Relationship Specialty Start Date End Date Romel Michelle MD [address] [facility] [place] [address] PCP - General Internal Medicine 05/23/11 B And B Gang Worker Relationship Specialty Start Date End Date Romel Michelle MD [address] [facility] [place] [address] PCP - General Internal Medicine 05/23/11 B And B Gang Worker Relationship Specialty Start Date End Date Romel Michelle MD [address] [place] [address] PCP - General Internal Medicine 05/23/11 B And B Gang Worker Relationship Specialty Start Date End Date Romel Michelle MD [address] [place] [address] PCP - General Internal Medicine 05/23/11 B And B Gang Worker Relationship Specialty Start Date End Date Romel Michelle MD [address] [place] [address] PCP - General Internal Medicine 05/23/11 B And B Gang Worker Relationship Specialty Start Date End Date Romel Michelle MD [address] [place] [address] PCP - General Internal Medicine 05/23/11 B And B Gang Worker Relationship Specialty Start Date End Date Romel Michelle MD [address] [place] [address] PCP - General Internal Medicine 05/23/11 B And B Gang Worker Relationship Specialty Start Date End Date Romel Michelle MD [address] [place] [address] PCP - General Internal Medicine 05/23/11 B And B Gang Worker Relationship Specialty Start Date End Date Romel Michelle MD [address] [place] [address] PCP - General Internal Medicine 05/23/11 B And B Gang Worker Relationship Specialty Start Date End Date Romel Michelle MD [address] [place] [address] PCP - General Internal Medicine 05/23/11 B And B Gang Worker Relationship Specialty Start Date End Date Romel Michelle MD [address] [place] [address] PCP - General Internal Medicine 05/23/11 B And B Gang Worker Relationship Specialty Start Date End Date Romel Michelle MD [address] [place] [address] PCP - General Internal Medicine 05/23/11 B And B Gang Worker Relationship Specialty Start Date End Date Romel Michelle MD [address] [place] [address] PCP - General Internal Medicine 05/23/11 B And B Gang Worker Relationship Specialty Start Date End Date Romel Michelle MD [address] [place] [address] PCP - General Internal Medicine 05/23/11 Dayana Christensen PA-C [address] [place] [address] Referring Gynecology 03/24/24 B And B Gang Worker Relationship Specialty Start Date End Date Romel Michelle MD [address] [place] [address] PCP - General Internal Medicine 05/23/11 Dayana Christensen PA-C [address] [place] [address] Referring Gynecology 03/24/24 B And B Gang Worker Relationship Specialty Start Date End Date Romel Michelle MD [address] [place] [address] PCP - General Internal Medicine 05/23/11 Dayana Christensen PA-C [address] [place] [address] Referring Gynecology 03/24/24 ProviderBria MD School Counsellor 03/24/24 04/23/24 B And B Gang Worker Relationship Specialty Start Date End Date Romel Michelle MD [address] [place] [address] PCP - General Internal Medicine 05/23/11 Dayana Christensen PA-C [address] [place] [address] Referring Gynecology 03/24/24 Bria Kelly MD School Counsellor 03/24/24 04/23/24 B And B Gang Worker Relationship Specialty Start Date End Date Romel Michelle MD [address] [place] [address] PCP - General Internal Medicine 05/23/11 Dayana Christensen PA-C [address] [place] [address] Referring Gynecology 03/24/24 Bria Kelly MD School Counsellor 03/24/24 04/23/24 B And B Gang Worker Relationship Specialty Start Date End Date Romel Michelle MD [address] [place] [address] PCP - General Internal Medicine 05/23/11 Dayana Christensen PA-C [address] [place] [address] Referring Gynecology 03/24/24 ProviderBria MD School Counsellor 03/24/24 04/23/24 B And B Gang Worker Relationship Specialty Start Date End Date Romel Michelle MD [address] [place] [address] PCP - General Internal Medicine 05/23/11 Dayana Christensen PA-C [address] [place] [address] Referring Gynecology 03/24/24 Bria Kelly MD School Counsellor 03/24/24 04/23/24 B And B Gang Worker Relationship Specialty Start Date End Date Romel Michelle MD [address] [place] [address] PCP - General Internal Medicine 05/23/11 Dayana Christensen PA-C [address] [place] [address] Referring Gynecology 03/24/24 Bria Kelly MD School Counsellor 03/24/24 04/23/24 B And B Gang Worker Relationship Specialty Start Date End Date Romel Michelle MD [address] [place] [address] PCP - General Internal Medicine 05/23/11 Dayana Christensen PA-C [address] [place] [address] Referring Gynecology 03/24/24 Bria Kelly MD School Counsellor 03/24/24 04/23/24 B And B Gang Worker Relationship Specialty Start Date End Date Romel Michelle MD [address] [place] [address] PCP - General Internal Medicine 05/23/11 Fredis Buckner MD [address] [place] [address] Home Care Provider Gynecology 04/12/24 B And B Gang Worker Relationship Specialty Start Date End Date Romel Michelle MD [address] [place] [address] PCP - General Internal Medicine 05/23/11 Fredis Buckner MD [address] [place] [address] Home Care Provider Gynecology 04/12/24 Fredis Buckner MD [address] [place] [address] Referring Gynecology 04/13/24 ProviderBria MD School Counsellor 04/13/24 05/12/24 B And B Gang Worker Relationship Specialty Start Date End Date Romel Michelle MD [address] [place] [address] PCP - General Internal Medicine 05/23/11 Fredis Buckner MD [address] [place] [address] Home Care Provider Gynecology 04/12/24 Fredis Buckner MD [address] [place] [address] Referring Gynecology 04/13/24 Bria Kelly MD School Counsellor 04/13/24 05/12/24 B And B Gang Worker Relationship Specialty Start Date End Date Romel Michelle MD [address] [place] [address] PCP - General Internal Medicine 05/23/11 Fredis Buckner MD [address] [place] [address] Home Care Provider Gynecology 04/12/24 Fredis Buckner MD [address] [place] [address] Referring Gynecology 04/13/24 ProviderBria MD School Counsellor 04/13/24 05/12/24 B And B Gang Worker Relationship Specialty Start Date End Date Romel Michelle MD [address] [place] [address] PCP - General Internal Medicine 05/23/11 Fredis Buckner MD [address] [place] [address] Home Care Provider Gynecology 04/12/24 Fredis Buckner MD [address] [place] [address] Referring Gynecology 04/13/24 Bria Kelly MD School Counsellor 04/13/24 05/12/24 B And B Gang Worker Relationship Specialty Start Date End Date Romel Michelle MD [address] [place] [address] PCP - General Internal Medicine 05/23/11 Fredis Buckner MD [address] [place] [address] Home Care Provider Gynecology 04/12/24 Fredis Buckner MD [address] [place] [address] Referring Gynecology 04/13/24 ProviderBria MD School Counsellor 04/13/24 05/12/24 B And B Gang Worker Relationship Specialty Start Date End Date Romel Michelle MD [address] [place] [address] PCP - General Internal Medicine 05/23/11 Fredis Buckner MD [address] [place] [address] Home Care Provider Gynecology 04/12/24 Fredis Buckner MD [address] [place] [address] Referring Gynecology 04/13/24 ProviderBria MD School Counsellor 04/13/24 05/12/24 B And B Gang Worker Relationship Specialty Start Date End Date Romel Michelle MD [address] [place] [address] PCP - General Internal Medicine 05/23/11 Fredis Buckner MD [address] [place] [address] Home Care Provider Gynecology 04/12/24 Fredis Buckner MD [address] [place] [address] Referring Gynecology 04/13/24 ProviderBria MD School Counsellor 04/13/24 05/12/24 B And B Gang Worker Relationship Specialty Start Date End Date Romel Michelle MD [address] [place] [address] PCP - General Internal Medicine 05/23/11 Fredis Buckner MD [address] [place] [address] Home Care Provider Gynecology 04/12/24 Fredis Buckner MD [address] [place] [address] Referring Gynecology 04/13/24 ProviderBria MD School Counsellor 04/13/24 05/12/24 B And B Gang Worker Relationship Specialty Start Date End Date Romel Michelle MD [address] [place] [address] PCP - General Internal Medicine 05/23/11 Fredis Buckner MD [address] [place] [address] Home Care Provider Gynecology 04/12/24 Fredis Buckner MD [address] [place] [address] Referring Gynecology 04/13/24 ProviderBria MD School Counsellor 04/13/24 05/12/24 B And B Gang Worker Relationship Specialty Start Date End Date Romel Michelle MD [address] [place] [address] PCP - General Internal Medicine 05/23/11 Fredis Buckner MD [address] [place] [address] Home Care Provider Gynecology 04/12/24 Fredis Buckner MD [address] [place] [address] Referring Gynecology 04/13/24 ProviderBria MD School Counsellor 04/13/24 05/12/24 Nile Hall DO [address] [place] [address] Hematology/Oncology 04/23/24 Yulia Holm, CECILIA Specialty Boot Trimmer Oncology 04/23/24 B And B Gang Worker Relationship Specialty Start Date End Date Romel Michelle MD [address] [place], [place] [address]4031 PCP - General Internal Medicine 05/23/11 Fredis Buckner MD [address] [place] [address] Home Care Provider Gynecology 04/12/24 Fredis Buckner MD [address] [place] [address] Referring Gynecology 04/13/24 ProviderBria MD School Counsellor 04/13/24 05/12/24 Nile Hall DO [address] [facility] [address] Hematology/Oncology 04/23/24 Yulia Holm RN Specialty Boot Trimmer Oncology 04/23/24 B And B Gang Worker Relationship Specialty Start Date End Date Romel Michelle MD [address] [place], [place] 468361 PCP - General Internal Medicine 05/23/11 Fredis Buckner MD [address] [place] [address] Home Care Provider Gynecology 04/12/24 Fredis Buckner MD [address] [place], [place] [address] Referring Gynecology 04/13/24 ProviderBria MD School Counsellor 04/13/24 05/12/24 Nile Hall DO [address] [place], [place] [address] Hematology/Oncology 04/23/24 Yulia Holm RN Specialty Boot Trimmer Oncology 04/23/24 B And B Gang Worker Relationship Specialty Start Date End Date Romel Michelle MD [address] [place] [address] PCP - General Internal Medicine 05/23/11 Fredis Buckner MD [address] [place], [place] [address]95 Home Care Provider Gynecology 04/12/24 Fredis Buckner MD [address] [place] [address] Referring Gynecology 04/13/24 ProviderrBia MD School Counsellor 04/13/24 05/12/24 Nile Hall DO [address] [place] [address] Hematology/Oncology 04/23/24 Yulia Holm RN Specialty Boot Trimmer Oncology 04/23/24 B And B Gang Worker Relationship Specialty Start Date End Date Romel Michelle MD [address] [place], [place] [address]84[address] PCP - General Internal Medicine 05/23/11 Fredis Buckner MD [address] [place] [address] Home Care Provider Gynecology 04/12/24 Fredis Buckner MD [address] [place], [place] [address]30[address] Referring Gynecology 04/13/24 ProviderBria MD School Counsellor 04/13/24 05/12/24 Nile Hall DO [address] [place], [place] [address] Hematology/Oncology 04/23/24 Yulia Holm RN Specialty Boot Trimmer Oncology 04/23/24 B And B Gang Worker Relationship Specialty Start Date End Date Romel Michelle MD [address] [place], [place] [address]18491 PCP - General Internal Medicine 05/23/11 Fredis Buckner MD [address] [place], [place] 0708195 Home Care Provider Gynecology 04/12/24 Fredis Buckner MD [address] [place] [address] Referring Gynecology 04/13/24 ProviderBria MD School Counsellor 04/13/24 05/12/24 Nile Hall DO [address] [place] [address] Hematology/Oncology 04/23/24 Yulia Holm RN Specialty Boot Trimmer Oncology 04/23/24 B And B Gang Worker Relationship Specialty Start Date End Date Romel Michelle MD [address] [place], [place] [address]71 PCP - General Internal Medicine 05/23/11 Fredis Buckner MD [address] [place], [place] [address] Home Care Provider Gynecology 04/12/24 Fredis Buckner MD [address] [place], [place] [address] Referring Gynecology 04/13/24 ProviderBria MD School Counsellor 04/13/24 05/12/24 Nile Hall DO [address] [place] [address] Hematology/Oncology 04/23/24 Yulia Holm RN Specialty Boot Trimmer Oncology 04/23/24 B And B Gang Worker Relationship Specialty Start Date End Date Romel Michelle MD [address] [place], [place] [address]71 PCP - General Internal Medicine 05/23/11 Fredis Buckner MD [address] [place] [address] Home Care Provider Gynecology 04/12/24 Fredis Buckner MD [address] [place] [address] Referring Gynecology 04/13/24 Bria Kelly MD School Counsellor 04/13/24 05/12/24 Nile Hall DO [address] [address] Hematology/Oncology 04/23/24 Yulia Holm RN Specialty Boot Trimmer Oncology 04/23/24 B And B Gang Worker Relationship Specialty Start Date End Date Romel Michelle MD [address] [place] [address] PCP - General Internal Medicine 05/23/11 Fredis Buckner MD [address] [place] [address] Home Care Provider Gynecology 04/12/24 Fredis Buckner MD [address] [place] [address] Referring Gynecology 04/13/24 Nile Hall DO [address] [facility] [address] Hematology/Oncology 04/23/24 Yulia Holm RN Specialty Boot Trimmer Oncology 04/23/24 B And B Gang Worker Relationship Specialty Start Date End Date Romel Michelle MD [address] [place] [address] PCP - General Internal Medicine 05/23/11 Fredis Buckner MD [address] [place] [address] Home Care Provider Gynecology 04/12/24 Fredis Buckner MD [address] [place] [address] Referring Gynecology 04/13/24 ProviderBria MD School Counsellor 04/13/24 05/12/24 Nile Hall DO [address] [address] Hematology/Oncology 04/23/24 Yulia Holm RN Specialty Boot Trimmer Oncology 04/23/24 B And B Gang Worker Relationship Specialty Start Date End Date Romel Michelle MD [address] [place] [address] PCP - General Internal Medicine 05/23/11 Fredis Buckner MD [address] [place] [address] Home Care Provider Gynecology 04/12/24 Fredis Buckner MD [address] [place] [address] Referring Gynecology 04/13/24 Nile Hall DO [address] [place] [address] Hematology/Oncology 04/23/24 Yulia Holm RN Specialty Boot Trimmer Oncology 04/23/24 B And B Gang Worker Relationship Specialty Start Date End Date Romel Michelle MD [address] [place] [address] PCP - General Internal Medicine 05/23/11 Fredis Buckner MD [address] [place] [address] Home Care Provider Gynecology 04/12/24 Fredis Buckner MD [address] [place] [address] Referring Gynecology 04/13/24 Nile Hall DO [address] [place] [address] Hematology/Oncology 04/23/24 Yulia Holm RN Specialty Boot Trimmer Oncology 04/23/24 B And B Gang Worker Relationship Specialty Start Date End Date Romel Michelle MD [address] [place] [address] PCP - General Internal Medicine 05/23/11 Fredis Buckner MD [address] [place] [address] Home Care Provider Gynecology 04/12/24 Fredis Buckner MD [address] [place] [address] Referring Gynecology 04/13/24 Nile Hall DO [address] [place] [address] Hematology/Oncology 04/23/24 Yulia Holm RN Specialty Boot Trimmer Oncology 04/23/24 B And B Gang Worker Relationship Specialty Start Date End Date Romel Michelle MD [address] [place] [address] PCP - General Internal Medicine 05/23/11 Fredis Buckner MD [address] [place] [address] Home Care Provider Gynecology 04/12/24 Fredis Buckner MD [address] [place] [address] Referring Gynecology 04/13/24 Nile Hall DO [address] [place] [address] Hematology/Oncology 04/23/24 Yulia Holm RN Specialty Boot Trimmer Oncology 04/23/24 B And B Gang Worker Relationship Specialty Start Date End Date Romel Michelle MD [address] [place] [address] PCP - General Internal Medicine 05/23/11 Fredis Buckner MD [address] [place] [address] Home Care Provider Gynecology 04/12/24 Fredis Buckner MD [address] [place] [address] Referring Gynecology 04/13/24 Nile Hall DO [address] [place] [address] Hematology/Oncology 04/23/24 Yulia Holm RN Specialty Boot Trimmer Oncology 04/23/24 B And B Gang Worker Relationship Specialty Start Date End Date Romel Michelle MD [address] [place] [address] PCP - General Internal Medicine 05/23/11 Fredis Buckner MD [address] [place] [address] Home Care Provider Gynecology 04/12/24 Fredis Buckner MD [address] [place] [address] Referring Gynecology 04/13/24 Nile Hall DO [address] [place] [address] Hematology/Oncology 04/23/24 Yulia Holm RN Specialty Boot Trimmer Oncology 04/23/24 B And B Gang Worker Relationship Specialty Start Date End Date Romel Michelle MD [address] [place] [address] PCP - General Internal Medicine 05/23/11 Fredis Buckner MD [address] [place] [address] Home Care Provider Gynecology 04/12/24 Fredis Buckner MD [address] [place] [address] Referring Gynecology 04/13/24 Nile Hall DO [address] [place] [address] Hematology/Oncology 04/23/24 Yulia Holm RN Specialty Boot Trimmer Oncology 04/23/24 B And B Gang Worker Relationship Specialty Start Date End Date Romel Michelle MD [address] [place] [address] PCP - General Internal Medicine 05/23/11 Fredis Buckner MD [address] [place] [address] Home Care Provider Gynecology 04/12/24 Fredis Buckner MD [address] [place] [address] Referring Gynecology 04/13/24 Nile Hall DO [address] [place] [address] Hematology/Oncology 04/23/24 Yulia Holm RN Specialty Boot Trimmer Oncology 04/23/24 B And B Gang Worker Relationship Specialty Start Date End Date Romel Michelle MD [address] [place] [address] PCP - General Internal Medicine 05/23/11 Fredis Buckner MD [address] [place] [address] Home Care Provider Gynecology 04/12/24 Fredis Buckner MD [address] [place] [address] Referring Gynecology 04/13/24 Nile Hall DO [address] [place] [address] Hematology/Oncology 04/23/24 Yulia Holm RN Specialty Boot Trimmer Oncology 04/23/24 B And B Gang Worker Relationship Specialty Start Date End Date Romel Michelle MD [address] [place] [address] PCP - General Internal Medicine 05/23/11 Fredis Buckner MD [address] [place] [address] Home Care Provider Gynecology 04/12/24 Fredis Buckner MD [address] [place], [place] [address]36995 Referring Gynecology 04/13/24 Nile Hall DO [address] [place] [address] Hematology/Oncology 04/23/24 Yulia Holm, RN Specialty Boot Trimmer Oncology 04/23/24 Jason Oswald, CECILIA [address] [place], [place] [id number] Chief Hospital Administrator 05/29/24 B And B Gang Worker Relationship Specialty Start Date End Date Romel Michelle MD [address] [place] [address] PCP - General Internal Medicine 05/23/11 Fredis Buckner MD [address] [place] [address] Home Care Provider Gynecology 04/12/24 Fredis Buckner MD [address] [place] [address] Referring Gynecology 04/13/24 Nile Hall DO [address] [place] [address] Hematology/Oncology 04/23/24 Yulia Holm RN Specialty Boot Trimmer Oncology 04/23/24 Jason Oswald RN [address] [place], [place] [id number] Chief Hospital Administrator 05/29/24 B And B Gang Worker Relationship Specialty Start Date End Date Romel Michelle MD [address] [place] [address] PCP - General Internal Medicine 05/23/11 Fredis Buckner MD [address] [place] [address] Home Care Provider Gynecology 04/12/24 Fredis Buckner MD [address] [place] [address] Referring Gynecology 04/13/24 Nile Hall DO [address] [place] [address] Hematology/Oncology 04/23/24 Yulia Holm RN Specialty Boot Trimmer Oncology 04/23/24 Jason Oswald, CECILIA [address] [place], [place] [id number] Chief Hospital Administrator 05/29/24 B And B Gang Worker Relationship Specialty Start Date End Date Romel Michelle MD [address] [place], [place] 703151 PCP - General Internal Medicine 05/23/11 Fredis Buckner MD [address] [place] [address] Home Care Provider Gynecology 04/12/24 Fredis Buckner MD [address] [place] [address] Referring Gynecology 04/13/24 Nile Hall DO [address] [place] [address] Hematology/Oncology 04/23/24 Yulia Holm RN Specialty Boot Trimmer Oncology 04/23/24 B And B Gang Worker Relationship Specialty Start Date End Date Romel Michelle MD [address] [place] [address] PCP - General Internal Medicine 05/23/11 Fredis Buckner MD [address] [place] [address] Home Care Provider Gynecology 04/12/24 Fredis Buckner MD [address] [place] [address] Referring Gynecology 04/13/24 Nile Hall DO [address] [place] [address] Hematology/Oncology 04/23/24 Yulia Holm RN Specialty Boot Trimmer Oncology 04/23/24 B And B Gang Worker Relationship Specialty Start Date End Date Romel Michelle MD [address] [place] [address] PCP - General Internal Medicine 05/23/11 Fredis Buckner MD [address] [place] [address] Home Care Provider Gynecology 04/12/24 Fredis Buckner MD [address] [place] [address] Referring Gynecology 04/13/24 Nile Hall DO [address] [place] [address] Hematology/Oncology 04/23/24 Yulia Holm RN Specialty Boot Trimmer Oncology 04/23/24 B And B Gang Worker Relationship Specialty Start Date End Date Romel Michelle MD [address] [place] [address] PCP - General Internal Medicine 05/23/11 Fredis Buckner MD [address] [place] [address] Home Care Provider Gynecology 04/12/24 Fredis Buckner MD [address] [place] [address] Referring Gynecology 04/13/24 Nile Hall DO [address] [place] [address] Hematology/Oncology 04/23/24 Yulia Holm RN Specialty Boot Trimmer Oncology 04/23/24 B And B Gang Worker Relationship Specialty Start Date End Date Romel Michelle MD [address] [place] [address] PCP - General Internal Medicine 05/23/11 Fredis Buckner MD [address] [place] [address] Home Care Provider Gynecology 04/12/24 Fredis Buckner MD [address] [place] [address] Referring Gynecology 04/13/24 Nile Hall DO [address] [place] [address] Hematology/Oncology 04/23/24 Yulia Holm RN Specialty Boot Trimmer Oncology 04/23/24 B And B Gang Worker Relationship Specialty Start Date End Date Romel Michelle MD [address] [place] [address] PCP - General Internal Medicine 05/23/11 Fredis Buckner MD [address] [place] [address] Home Care Provider Gynecology 04/12/24 Fredis Buckner MD [address] [place] [address] Referring Gynecology 04/13/24 Nile Hall DO [address] [place] [address] Hematology/Oncology 04/23/24 Yulia Holm RN Specialty Boot Trimmer Oncology 04/23/24 B And B Gang Worker Relationship Specialty Start Date End Date Romel Michelle MD [address] [place] [address] PCP - General Internal Medicine 05/23/11 Fredis Buckner MD [address] [place] [address] Home Care Provider Gynecology 04/12/24 Fredis Buckner MD [address] [place] [address] Referring Gynecology 04/13/24 Nile Hall DO [address] [place] [address] Hematology/Oncology 04/23/24 Yulia Holm RN Specialty Boot Trimmer Oncology 04/23/24 B And B Gang Worker Relationship Specialty Start Date End Date Romel Michelle MD [address] [place] [address] PCP - General Internal Medicine 05/23/11 Fredis Buckner MD [address] [place] [address] Home Care Provider Gynecology 04/12/24 Fredis Buckner MD [address] [place] [address] Referring Gynecology 04/13/24 Nile Hall DO [address] [place] [address] Hematology/Oncology 04/23/24 Yulia Holm, RN Specialty Boot Trimmer Oncology 04/23/24 Jason Oswald, CECILIA [address] [place], [place] [id number] Chief Hospital Administrator 05/29/24 06/10/24 B And B Gang Worker Relationship Specialty Start Date End Date Romel Michelle MD [address] [place] [address] PCP - General Internal Medicine 05/23/11 Fredis Buckner MD [address] [place] [address] Home Care Provider Gynecology 04/12/24 Fredis Buckner MD [address] [place] [address] Referring Gynecology 04/13/24 Nile Hall DO [address] [place] [address] Hematology/Oncology 04/23/24 Yulia Holm RN Specialty Boot Trimmer Oncology 04/23/24 B And B Gang Worker Relationship Specialty Start Date End Date Romel Michelle MD [address] [place] [address] PCP - General Internal Medicine 05/23/11 Fredis Buckner MD [address] [place] [address] Home Care Provider Gynecology 04/12/24 Fredis Buckner MD [address] [place] [address] Referring Gynecology 04/13/24 Nile Hall DO [address] [place] [address] Hematology/Oncology 04/23/24 Yulia Holm RN Specialty Boot Trimmer Oncology 04/23/24 B And B Gang Worker Relationship Specialty Start Date End Date Romel Michelle MD [address] [place] [address] PCP - General Internal Medicine 05/23/11 Fredis Buckner MD [address] [place] [address] Home Care Provider Gynecology 04/12/24 Fredis Buckner MD [address] [place] [address] Referring Gynecology 04/13/24 Nile Hall DO [address] [place] [address] Hematology/Oncology 04/23/24 Yulia Holm RN Specialty Boot Trimmer Oncology 04/23/24 B And B Gang Worker Relationship Specialty Start Date End Date Romel Michelle MD [address] [place] [address] PCP - General Internal Medicine 05/23/11 Fredis Buckner MD [address] [place] [address] Home Care Provider Gynecology 04/12/24 Fredis Buckner MD [address] [place] [address] Referring Gynecology 04/13/24 Nile Hall DO [address] [place] [address] Hematology/Oncology 04/23/24 Yulia Holm RN Specialty Boot Trimmer Oncology 04/23/24 B And B Gang Worker Relationship Specialty Start Date End Date Romel Michelle MD [address] [place] [address] PCP - General Internal Medicine 05/23/11 Fredis Buckner MD [address] [place] [address] Home Care Provider Gynecology 04/12/24 Fredis Buckner MD [address] [place] [address] Referring Gynecology 04/13/24 Nile Hall DO [address] [place] [address] Hematology/Oncology 04/23/24 Yulia Holm RN Specialty Boot Trimmer Oncology 04/23/24 B And B Gang Worker Relationship Specialty Start Date End Date Romel Michelle MD [address] [place] [address] PCP - General Internal Medicine 05/23/11 Fredis Buckner MD [address] [place] [address] Home Care Provider Gynecology 04/12/24 Fredis Buckner MD [address] [place] [address] Referring Gynecology 04/13/24 Nile Hall DO [address] [place] [address] Hematology/Oncology 04/23/24 Yulia Holm RN Specialty Boot Trimmer Oncology 04/23/24 B And B Gang Worker Relationship Specialty Start Date End Date Romel Michelle MD [address] [place] [address] PCP - General Internal Medicine 05/23/11 Fredis Buckner MD [address] [place] [address] Home Care Provider Gynecology 04/12/24 Fredis Buckner MD [address] [place] [address] Referring Gynecology 04/13/24 Nile Hall DO [address] [place] [address] Hematology/Oncology 04/23/24 Yulia Holm RN Specialty Boot Trimmer Oncology 04/23/24 B And B Gang Worker Relationship Specialty Start Date End Date Romel Michelle MD [address] [place] [address] PCP - General Internal Medicine 05/23/11 Fredis Buckner MD [address] [place] [address] Home Care Provider Gynecology 04/12/24 Fredis Buckner MD [address] [place] [address] Referring Gynecology 04/13/24 Nile Hall DO [address] [place] [address] Hematology/Oncology 04/23/24 Yulia Holm RN Specialty Boot Trimmer Oncology 04/23/24 B And B Gang Worker Relationship Specialty Start Date End Date Romel Michelle MD [address] [place] [address] PCP - General Internal Medicine 05/23/11 Fredis Buckner MD [address] [place] [address] Home Care Provider Gynecology 04/12/24 Fredis Buckner MD [address] [place] [address] Referring Gynecology 04/13/24 Nile Hall DO [address] [place] [address] Hematology/Oncology 04/23/24 Yulia Holm RN Specialty Boot Trimmer Oncology 04/23/24 B And B Gang Worker Relationship Specialty Start Date End Date Romel Michelle MD [address] [place] [address] PCP - General Internal Medicine 05/23/11 Fredis Buckner MD [address] [place] [address] Home Care Provider Gynecology 04/12/24 Fredis Buckner MD [address] [place] [address] Referring Gynecology 04/13/24 Nile Hall DO [address] [place] [address] Hematology/Oncology 04/23/24 Yulia Holm RN Specialty Boot Trimmer Oncology 04/23/24 B And B Gang Worker Relationship Specialty Start Date End Date Romel Michelle MD [address] [place] [address] PCP - General Internal Medicine 05/23/11 Fredis Buckner MD [address] [place] [address] Home Care Provider Gynecology 04/12/24 Fredis Buckner MD [address] [place] [address] Referring Gynecology 04/13/24 Nile Hall DO [address] [place] [address] Hematology/Oncology 04/23/24 Yulia Holm RN Specialty Boot Trimmer Oncology 04/23/24 B And B Gang Worker Relationship Specialty Start Date End Date Romel Michelle MD [address] [place] [address] PCP - General Internal Medicine 05/23/11 Fredis Buckner MD [address] [place] [address] Home Care Provider Gynecology 04/12/24 Fredis Buckner MD [address] [place] [address] Referring Gynecology 04/13/24 Nile Hall DO [address] [place] [address] Hematology/Oncology 04/23/24 Yulia Holm RN Specialty Boot Trimmer Oncology 04/23/24 B And B Gang Worker Relationship Specialty Start Date End Date Romel Michelle MD [address] [place] [address] PCP - General Internal Medicine 05/23/11 Fredis Buckner MD [address] [place] [address] Home Care Provider Gynecology 04/12/24 Fredis Buckner MD [address] [place] [address] Referring Gynecology 04/13/24 Nile Hall DO [address] [place] [address] Hematology/Oncology 04/23/24 Yulia Holm RN Specialty Boot Trimmer Oncology 04/23/24 B And B Gang Worker Relationship Specialty Start Date End Date Romel Michelle MD [address] [place] [address] PCP - General Internal Medicine 05/23/11 Fredis Buckner MD [address] [place] [address] Home Care Provider Gynecology 04/12/24 Fredis Buckner MD [address] [place] [address] Referring Gynecology 04/13/24 Nile Hall DO [address] [place] [address] Hematology/Oncology 04/23/24 Yulia Homl RN Specialty Boot Trimmer Oncology 04/23/24 B And B Gang Worker Relationship Specialty Start Date End Date Romel Michelle MD [address] [place] [address] PCP - General Internal Medicine 05/23/11 Fredis Buckner MD [address] [place] [address] Home Care Provider Gynecology 04/12/24 Fredis Buckner MD [address] [place] [address] Referring Gynecology 04/13/24 Nile Hall DO [address] [address] Hematology/Oncology 04/23/24 Yulia Holm RN Specialty Boot Trimmer Oncology 04/23/24 Rukhsana Paniagua, SABRINA.STORE HOST [address] [place] [address] School Counsellor Internal Medicine 09/13/24 Cathy Coles APRN.PHOTOGRAPHER LITHOGRAPHIC [address] [place], [place] 352035 [phone] School Counsellor Internal Medicine 09/13/24 B And B Gang Worker Relationship Specialty Start Date End Date Romel Michelle MD [address] [place] [address] PCP - General Internal Medicine 05/23/11 Fredis Buckner MD [address] [place] [address] Home Care Provider Gynecology 04/12/24 Fredis Buckner MD [address] [place] [address] Referring Gynecology 04/13/24 Nile Hall DO [address] [address] Hematology/Oncology 04/23/24 Yulia Holm, RN Specialty Boot Trimmer Oncology 04/23/24 Rukhsana Paniagua, SABRINA.STORE HOST [address] [place] [address] School Counsellor Internal Medicine 09/13/24 Cathy Coles APRN.PHOTOGRAPHER LITHOGRAPHIC [address] [place] [address] School Counsellor Internal Medicine 09/13/24 B And B Gang Worker Relationship Specialty Start Date End Date Romel Michelle MD [address] [place] [address] PCP - General Internal Medicine 05/23/11 Fredis Buckner MD [address] [place], [place] 3246595 Home Care Provider Gynecology 04/12/24 Fredis Buckner MD [address] [place], [place] [address] Referring Gynecology 04/13/24 Nile Hall DO [address] [place] [address] Hematology/Oncology 04/23/24 Yulia Holm RN Specialty Boot Trimmer Oncology 04/23/24 Rukhsana Paniagua, CONTESTANT COORDINATOR.STORE HOST [address] [place] [address] School Counsellor Internal Medicine 09/13/24 Cathy Coles, CONTESTANT COORDINATOR.PHOTOGRAPHER LITHOGRAPHIC [address] [place] [address] School Counsellor Internal Medicine 09/13/24 Kendy Pittman, CECILIA [address] [place] [address] Primary Care Gunsmith Apprentice 09/14/24 B And B Gang Worker Relationship Specialty Start Date End Date Romel Michelle MD [address] [place] [address] PCP - General Internal Medicine 05/23/11 Fredis Buckner MD [address] [place] [address] Home Care Provider Gynecology 04/12/24 Fredis Buckner MD [address] [place] [place], [place] [address] Referring Gynecology 04/13/24 Nile Hall DO [address] [place] [address] Hematology/Oncology 04/23/24 Yulia Holm RN Specialty Boot Trimmer Oncology 04/23/24 Rukhsana Paniagua, SABRINA.STORE HOST [address] [place], [place] 847171 School Counsellor Internal Medicine 09/13/24 Cathy Coles APRN.PHOTOGRAPHER LITHOGRAPHIC [address] [place], [place] [address]11 School Counsellor Internal Medicine 09/13/24 Kendy Pittman, CECILIA [address] [place], [place] [id number] Primary Care Gunsmith Apprentice 09/14/24 B And B Gang Worker Relationship Specialty Start Date End Date Romel Michelle MD [address] [place] [address] PCP - General Internal Medicine 05/23/11 Fredis Buckner MD [address] [place] [address] Home Care Provider Gynecology 04/12/24 Fredis Buckner MD [address] [place] [address] Referring Gynecology 04/13/24 Nile Hall DO [address] [place] [address] Hematology/Oncology 04/23/24 Yulia Holm RN Specialty Boot Trimmer Oncology 04/23/24 Rukhsana Paniagua, CONTESTANT COORDINATOR.STORE HOST [address] [place] [address] School Counsellor Internal Medicine 09/13/24 Cathy Coles APRN.PHOTOGRAPHER LITHOGRAPHIC [address] [place], [place] [address]41 School Counsellor Internal Medicine 09/13/24 Kendy Pittman, CECILIA [address] [place], [place] [id number] Primary Care Gunsmith Apprentice 09/14/24 B And B Gang Worker Relationship Specialty Start Date End Date Romel Michelle MD [address] [place] [address] PCP - General Internal Medicine 05/23/11 Fredis Buckner MD [address] [place], [place] 3939895 Home Care Provider Gynecology 04/12/24 Fredis Buckner MD [address] [place] [address] Referring Gynecology 04/13/24 Nile Hall DO [address] [place] [address] Hematology/Oncology 04/23/24 Yulia Holm RN Specialty Boot Trimmer Oncology 04/23/24 Rukhsana Paniagua, CONTESTANT COORDINATOR.STORE HOST [address] [place], [place] [address]4811 [facility] Internal Medicine 09/13/24 Cathy Coles APRN.PHOTOGRAPHER LITHOGRAPHIC [address] [place] [address] [facility] Internal Medicine 09/13/24 Kendy Pittman, CECILIA [address] [place] [address] Primary Care Gunsmith Apprentice 09/14/24 B And B Gang Worker Relationship Specialty Start Date End Date Romel Michelle MD [address] [place] [address] PCP - General Internal Medicine 05/23/11 Fredis Buckner MD [address] [place], [place] 2054695 Home Care Provider Gynecology 04/12/24 Fredis Buckner MD [address] [place], [place] 2490395 Referring Gynecology 04/13/24 Nile Hall DO [address] [place] [address] Hematology/Oncology 04/23/24 Yulia Holm RN Specialty Boot Trimmer Oncology 04/23/24 Rukhsana Paniagua, CONTESTANT COORDINATOR.STORE HOST [address] [place] [address] School Counsellor Internal Medicine 09/13/24 Cathy Coles, CONTESTANT COORDINATOR.PHOTOGRAPHER LITHOGRAPHIC [address] [place], [place] [address] School Counsellor Internal Medicine 09/13/24 Kendy Pittman, CECILIA [address] [place] [address] Primary Care Gunsmith Apprentice 09/14/24 B And B Gang Worker Relationship Specialty Start Date End Date Romel Michelle MD [address] [place], [place] 595581 PCP - General Internal Medicine 05/23/11 Fredis Buckner MD [address] [place] [address] Home Care Provider Gynecology 04/12/24 Fredis Buckner MD [address] [place], [place] 3583995 Referring Gynecology 04/13/24 Nile Hall DO [address] [place] [address] Hematology/Oncology 04/23/24 Yulia Holm RN Specialty Boot Trimmer Oncology 04/23/24 Rukhsana Paniagua, SABRINA.STORE HOST [address] [place], [place] 879591 School Counsellor Internal Medicine 09/13/24 Cathy Coles APRN.PHOTOGRAPHER LITHOGRAPHIC [address] [place], [place] 364741 School Counsellor Internal Medicine 09/13/24 Kendy Pittman, CECILIA [address] [place], [place] [id number] Primary Care Gunsmith Apprentice 09/14/24 B And B Gang Worker Relationship Specialty Start Date End Date Romel Michelle MD [address] [place] [address] PCP - General Internal Medicine 05/23/11 Fredis Buckner MD [address] [place] [address] Home Care Provider Gynecology 04/12/24 Fredis Buckner MD [address] [place] [address] Referring Gynecology 04/13/24 Nile Hall DO [address] [place] [address] Hematology/Oncology 04/23/24 Yulia Holm RN Specialty Boot Trimmer Oncology 04/23/24 Rukhsana Paniagua, CONTESTANT COORDINATOR.STORE HOST [address] [place] [address] School Counsellor Internal Medicine 09/13/24 Cathy Coles APRN.PHOTOGRAPHER LITHOGRAPHIC [address] [place] [address] School Counsellor Internal Medicine 09/13/24 Kendy Pittman, CECILIA [address] [place], [place] [id number] Primary Care Gunsmith Apprentice 09/14/24 B And B Gang Worker Relationship Specialty Start Date End Date Romel Michelle MD [address] [place] [address] PCP - General Internal Medicine 05/23/11 Fredis Buckner MD [address] [place], [place] 0315895 Home Care Provider Gynecology 04/12/24 Fredis Buckner MD [address] [place], [place] 5225395 Referring Gynecology 04/13/24 Nile Hall DO [address] [place] [address] Hematology/Oncology 04/23/24 Yulia Holm RN Specialty Boot Trimmer Oncology 04/23/24 Rukhsana Paniagua, CONTESTANT COORDINATOR.STORE HOST [address] [place], [place] 511751 School Counsellor Internal Medicine 09/13/24 Cathy Coles APRN.PHOTOGRAPHER LITHOGRAPHIC [address] [place] [address] School Counsellor Internal Medicine 09/13/24 B And B Gang Worker Relationship Specialty Start Date End Date Romel Michelle MD [address] [place] [address] PCP - General Internal Medicine 05/23/11 Fredis Buckner MD [address] [place] [address] Home Care Provider Gynecology 04/12/24 Fredis Buckner MD [address] [place], [place] 26[address]95 Referring Gynecology 04/13/24 Nile Hall DO [address] [address] Hematology/Oncology 04/23/24 Yulia Holm RN Specialty Boot Trimmer Oncology 04/23/24 Rukhsana Paniagua, SABRINA.STORE HOST [address] [place] [address] School Counsellor Internal Medicine 09/13/24 Cathy Coles CONTESTANT COORDINATOR.PHOTOGRAPHER LITHOGRAPHIC [address] [place], [place] [address] School Counsellor Internal Medicine 09/13/24 B And B Gang Worker Relationship Specialty Start Date End Date Romel Michelle MD [address] [place] [address] PCP - General Internal Medicine 05/23/11 Fredis Buckner MD [address] [place], [place] 7360995 Home Care Provider Gynecology 04/12/24 Fredis Buckner MD [address] [place] [place], [place] 1664195 Referring Gynecology 04/13/24 Nile Hall DO [address] [address] Hematology/Oncology 04/23/24 Yulia Holm RN Specialty Boot Trimmer Oncology 04/23/24 Rukhsana Paniagua APRN.STORE HOST [address] [place] [address] School Counsellor Internal Medicine 09/13/24 Cathy Coles APRN.PHOTOGRAPHER LITHOGRAPHIC [address] [place] [address] School Counsellor Internal Medicine 09/13/24 B And B Gang Worker Relationship Specialty Start Date End Date Romel Michelle MD [address] [place] [address] PCP - General Internal Medicine 05/23/11 Fredis Buckner MD [address] [place], [place] 3967895 Home Care Provider Gynecology 04/12/24 Fredis Buckner MD [address] [place] [address] Referring Gynecology 04/13/24 Nile Hall DO [address] [place] [address] Hematology/Oncology 04/23/24 Yulia Holm, RN Specialty Boot Trimmer Oncology 04/23/24 Rukhsana Paniagua, SABRINA.STORE HOST [address] [place] [address] School Counsellor Internal Medicine 09/13/24 Cathy Coles APRN.PHOTOGRAPHER LITHOGRAPHIC [address] [place], [place] 282481 [phone] School Counsellor Internal Medicine 09/13/24 B And B Gang Worker Relationship Specialty Start Date End Date Romel Michelle MD [address] [place] [address] PCP - General Internal Medicine 05/23/11 Fredis Buckner MD [address] [place] [address] Home Care Provider Gynecology 04/12/24 Fredis Buckner MD [address] [place], [place] [id number] Referring Gynecology 04/13/24 Nile Hall DO [address] [place] [place] [address] Hematology/Oncology 04/23/24 Yulia Holm, CECILIA Specialty Boot Trimmer Oncology 04/23/24 Rukhsana Paniagua, CONTESTANT COORDINATOR.STORE HOST [address] [place] [address] School Counsellor Internal Medicine 09/13/24 Cathy Coles, CONTESTANT COORDINATOR.PHOTOGRAPHER LITHOGRAPHIC [address] [place] [address] School Counsellor Internal Medicine 09/13/24 B And B Gang Worker Relationship Specialty Start Date End Date Romel Michelle MD [address] [place] [address] PCP - General Internal Medicine 05/23/11 Fredis Buckner MD [address] [place] [address] Home Care Provider Gynecology 04/12/24 Fredis Buckner MD [address] [place] [address] Referring Gynecology 04/13/24 Nile Hall DO [address] [place] [address] Hematology/Oncology 04/23/24 Yulia Holm RN Specialty Boot Trimmer Oncology 04/23/24 Rukhsana Paniagua APRN.STORE HOST [address] [place] [address] School Counsellor Internal Medicine 09/13/24 Cathy Coles CONTESTANT COORDINATOR.PHOTOGRAPHER LITHOGRAPHIC [address] [place] [address] [facility] Internal Medicine 09/13/24 B And B Gang Worker Relationship Specialty Start Date End Date Romel Michelle MD [address] [place] [address] PCP - General Internal Medicine 05/23/11 Fredis Bcukner MD [address] [place] [address] Home Care Provider Gynecology 04/12/24 Fredis Buckner MD [address] [place] [address] Referring Gynecology 04/13/24 Nile Hall DO [address] [facility] [address] Hematology/Oncology 04/23/24 Yulia Holm, CECILIA Specialty Boot Trimmer Oncology 04/23/24 Rukhsana Paniagua CONTESTANT COORDINATOR.STORE HOST [address] [place] [address] School Counsellor Internal Medicine 09/13/24 Cathy Coles CONTESTANT COORDINATOR.PHOTOGRAPHER LITHOGRAPHIC [address] [place] [address] School Counsellor Internal Medicine 09/13/24 B And B Gang Worker Relationship Specialty Start Date End Date Romel Michelle MD [address] [place] [address] PCP - General Internal Medicine 05/23/11 Fredis Buckner MD [address] [place] [address] Home Care Provider Gynecology 04/12/24 Fredis Buckner MD [address] [place] [address] Referring Gynecology 04/13/24 Nile Hall DO [address] [place] [address] Hematology/Oncology 04/23/24 Yulia Holm, CECILIA Specialty Boot Trimmer Oncology 04/23/24 Rukhsana Paniagua, CONTESTANT COORDINATOR.STORE HOST [address] [place] [address] School Counsellor Internal Medicine 09/13/24 Cathy Coles, CONTESTANT COORDINATOR.PHOTOGRAPHER LITHOGRAPHIC [address] [place] [address] School Counsellor Internal Medicine 09/13/24 B And B Gang Worker Relationship Specialty Start Date End Date Romel Michelle MD [address] [place] [address] PCP - General Internal Medicine 05/23/11 Fredis Buckner MD [address] [place] [address] Home Care Provider Gynecology 04/12/24 Fredis Buckner MD [address] [place] [address] Referring Gynecology 04/13/24 Nile Hall DO [address] [place] [address] Hematology/Oncology 04/23/24 Yulia Holm RN Specialty Boot Trimmer Oncology 04/23/24 Rukhsana Paniagua APRN.STORE HOST [address] [place] [address] School Counsellor Internal Medicine 09/13/24 Cathy Coles APRN.PHOTOGRAPHER LITHOGRAPHIC [address] [place] [address] School Counsellor Internal Medicine 09/13/24 B And B Gang Worker Relationship Specialty Start Date End Date Romel Michelle MD [address] [place] [address] PCP - General Internal Medicine 05/23/11 Fredis Buckner MD [address] [place] [address] Home Care Provider Gynecology 04/12/24 Fredis Buckner MD [address] [place] [address] Referring Gynecology 04/13/24 Nile Hall DO [address] [place] [address] Hematology/Oncology 04/23/24 Yulia Holm, RN Specialty Boot Trimmer Oncology 04/23/24 Rukhsana Paniagua APRN.STORE HOST [address] [place] [address] School Counsellor Internal Medicine 09/13/24 Cathy Coles APRN.PHOTOGRAPHER LITHOGRAPHIC [address] [place] [address] School Counsellor Internal Medicine 09/13/24 B And B Gang Worker Relationship Specialty Start Date End Date Romel Michelle MD [address] [place] [address] PCP - General Internal Medicine 05/23/11 Fredis Buckner MD [address] [place] [address] Home Care Provider Gynecology 04/12/24 Fredis Buckner MD [address] [place] [address] Referring Gynecology 04/13/24 Nile Hall DO [address] [place] [address] Hematology/Oncology 04/23/24 Yulia Holm, CECILIA Specialty Boot Trimmer Oncology 04/23/24 Rukhsana Paniagua, SABRINA.STORE HOST [address] [place] [address] School Counsellor Internal Medicine 09/13/24 Cathy Coles CONTESTANT COORDINATOR.PHOTOGRAPHER LITHOGRAPHIC [address] [place] [address] School Counsellor Internal Medicine 09/13/24 B And B Gang Worker Relationship Specialty Start Date End Date Romel Michelle MD [address] [place] [address] PCP - General Internal Medicine 05/23/11 Fredis Buckner MD [address] [place] [address] Home Care Provider Gynecology 04/12/24 Fredis Buckner MD [address] [place] [address] Referring Gynecology 04/13/24 Nile Hall DO [address] [place] [address] Hematology/Oncology 04/23/24 Yulia Holm RN Specialty Boot Trimmer Oncology 04/23/24 Rukhsana Paniagua, CONTESTANT COORDINATOR.STORE HOST [address] [place] [address] School Counsellor Internal Medicine 09/13/24 Cathy Coles CONTESTANT COORDINATOR.PHOTOGRAPHER LITHOGRAPHIC [address] [place] [address] School Counsellor Internal Medicine 09/13/24 B And B Gang Worker Relationship Specialty Start Date End Date Romel Michelle MD [address] [place] [address] PCP - General Internal Medicine 05/23/11 Fredis Buckner MD [address] [place] [address] Home Care Provider Gynecology 04/12/24 Fredis Buckner MD [address] [place] [address] Referring Gynecology 04/13/24 Nile Hall DO [address] [place] [place] [address] Hematology/Oncology 04/23/24 Yulia Holm RN Specialty Boot Trimmer Oncology 04/23/24 Rukhsana Paniagua, CONTESTANT COORDINATOR.STORE HOST [address] [place] [address] School Counsellor Internal Medicine 09/13/24 Sharyn, Cathy, CONTESTANT COORDINATOR.PHOTOGRAPHER LITHOGRAPHIC [address] [place], [place] [address] School Counsellor Internal Medicine 09/13/24 B And B Gang Worker Relationship Specialty Start Date End Date Romel Michelle MD [address] [place], [place] [address] PCP - General Internal Medicine 05/23/11 Fredis Buckner MD [address] [place], [place] [address] Home Care Provider Gynecology 04/12/24 Fredis Buckner MD [address] [place], [place] [address] Referring Gynecology 04/13/24 Nile Hall DO [address] [place] [address] Hematology/Oncology 04/23/24 Yulia Holm, CECILIA Specialty Boot Trimmer Oncology 04/23/24 Rukhsana Paniagua, CONTESTANT COORDINATOR.STORE HOST [address] [place] [address] [facility] Internal Medicine 09/13/24 Team Status: Active Member Role Status Dates Dr. Romel Michelle MD Primary Care Provider Active Team Status: Inactive Member Role Status Dates Dr. Romel Michelle MD Primary Care Provider Active Start: December 17, 2024 End: December 17, 2024 Dr. Romel Michelle MD Referring Provider Active Start: December 17, 2024 End: December 17, 2024 Dr. Leydi Carmen MD Attending Provider Active Start: December 17, 2024 End: December 17, 2024 Team Status: Inactive Member Role Status Dates Dr. Romel Michelle MD Primary Care Provider Active Start: December 21, 2024 End: December 21, 2024 Dr. Romel Michelle MD Referring Provider Active Start: December 21, 2024 End: December 21, 2024 Dr. Leydi Carmen MD Attending Provider Active Start: December 21, 2024 End: December 21, 2024 Dr. Nile Hall DO Other Provider Active Start: December 21, 2024 End: December 21, 2024 Team Status: Active Member Role Status Dates Dr. Romel Michelle MD Primary Care Provider Active Start: December 21, 2024 Dr. Romel Michelle MD Referring Provider Active Start: December 21, 2024 Dr. Leydi Carmen MD Attending Provider Active Start: December 21, 2024 Dr. Leydi Carmen MD Other Provider Active S tart: December 21, 2024 Dr. Nile Hall DO Other Provider Active Start: December 21, 2024 Team Status: Inactive Member Role Status Dates Dr. Romel Michelle MD Primary Care Provider Active Start: January 10, 2025 End: January 10, 2025 Dr. Romel Michelle MD Referring Provider Active Start: January 10, 2025 End: January 10, 2025 Dr. Leydi Carmen MD Attending Provider Active Start: January 10, 2025 End: January 10, 2025 Team Status: Active Member Role Status Dates Dr. Romel Michelle MD Primary Care Provider Active Start: January 10, 2025 Dr. Romel Michelle MD Referring Provider Active Start: January 10, 2025 Dr. Leydi Carmen MD Attending Provider Active Start: January 10, 2025 Dr. Leydi Carmen MD Other Provider Active S tart: January 10, 2025 B And B Gang Worker Relationship Specialty Start Date End Date Romel Michelle MD [address] [place] [address] PCP - General Internal Medicine 05/23/11 Fredis Buckner MD [address] [place] [address] Home Care Provider Gynecology 04/12/24 Fredis Buckner MD [address] [place] [address] Referring Gynecology 04/13/24 Nile Hall DO [address] [place] [address] Hematology/Oncology 04/23/24 Yulia Holm RN Specialty Boot Trimmer Oncology 04/23/24 Rukhsana Paniagua APRN.STORE HOST [address] [place] [address] School Counsellor Internal Medicine 09/13/24 Cathy Coles APRN.PHOTOGRAPHER LITHOGRAPHIC [address] [place] [address] School Counsellor Internal Medicine 12/28/24 B And B Gang Worker Relationship Specialty Start Date End Date Romel Michelle MD [address] [place] [address] PCP - General Internal Medicine 05/23/11 Fredis Buckner MD [address] [place] [address] Home Care Provider Gynecology 04/12/24 Fredis Buckner MD [address] [place] [address] Referring Gynecology 04/13/24 Nile Hall DO [address] [place] [address] Hematology/Oncology 04/23/24 Yulia Holm, RN Specialty Boot Trimmer Oncology 04/23/24 Rukhsana Paniagua APRN.STORE HOST [address] [place] [address] School Counsellor Internal Medicine 09/13/24 Cathy Coles APRN.PHOTOGRAPHER LITHOGRAPHIC [address] [place] [address] School Counsellor Internal Medicine 12/28/24 Team Status: Inactive Member Role Status Dates Dr. Romel Michlele MD Primary Care Provider Active Start: March 01, 2025 End: March 01, 2025 Dr. Romel Michelle MD Referring Provider Active Start: March 01, 2025 End: March 01, 2025 Elba Ahumada NP-C Attending Provider Active S tart: March 01, 2025 End: March 01, 2025 B And B Gang Worker Relationship Specialty Start Date End Date Romel Michelle MD [address] [place] [address] PCP - General Internal Medicine 05/23/11 Fredis Buckner MD [address] [place], [place] [address] Home Care Provider Gynecology 04/12/24 Fredis Buckner MD [address] [place] [address] Referring Gynecology 04/13/24 Nile Hall DO [address] [place] [address] Hematology/Oncology 04/23/24 Yulia Holm RN Specialty Boot Trimmer Oncology 04/23/24 Cathy Coles, CONTESTANT COORDINATOR.PHOTOGRAPHER LITHOGRAPHIC [address] [place], [place] [address] School Counsellor Internal Medicine 12/28/24 Rukhsana Paniagua APRN.STORE HOST [address] [place], [place] [address] School Counsellor Internal Medicine 02/23/25 B And B Gang Worker Relationship Specialty Start Date End Date Romel Michelle MD [address] [place] [address] PCP - General Internal Medicine 05/23/11 Fredis Buckner MD [address] [place] [address] Home Care Provider Gynecology 04/12/24 Fredis Buckner MD [address] [place], [place] [address] Referring Gynecology 04/13/24 Nile Hall DO [address] [place] [address] Hematology/Oncology 04/23/24 Yulia Holm RN Specialty Boot Trimmer Oncology 04/23/24 Cathy Coles CONTESTANT COORDINATOR.PHOTOGRAPHER LITHOGRAPHIC [address] [place] [address] School Counsellor Internal Medicine 12/28/24 Rukhsana Paniagua APRN.STORE HOST [address] [place] [address] School Counsellor Internal Medicine 02/23/25 B And B Gang Worker Relationship Specialty Start Date End Date Romel Michelle MD [address] [place] [address] PCP - General Internal Medicine 05/23/11 Fredis Buckner MD [address] [place] [address] Home Care Provider Gynecology 04/12/24 Fredis Buckner MD [address] [place], [place] [address] Referring Gynecology 04/13/24 Nile Hall DO [address] [place] [address] Hematology/Oncology 04/23/24 Yulia Holm, CECILIA Specialty Boot Trimmer Oncology 04/23/24 Cathy Coles APRN.PHOTOGRAPHER LITHOGRAPHIC [address] [facility] [place] [address] School Counsellor Internal Medicine 12/28/24 Rukhsana Paniagua APRN.STORE HOST [address] [facility] [place] [address] School Counsellor Internal Medicine 02/23/25 B And B Gang Worker Relationship Specialty Start Date End Date Romel Michelle MD [address] [facility] [place] [address] PCP - General Internal Medicine 05/23/11 Fredis Buckner MD [address] [place] [address] Home Care Provider Gynecology 04/12/24 Fredis Buckner MD [address] [place] [address] Referring Gynecology 04/13/24 Nile Hall DO [address] [place] [address] Hematology/Oncology 04/23/24 Yulia Holm, CECILIA Specialty Boot Trimmer Oncology 04/23/24 Cathy Coles APRN.PHOTOGRAPHER LITHOGRAPHIC [address] [facility] [place] [address] School Counsellor Internal Medicine 12/28/24 Rukhsana Paniagua, SABRINA.STORE HOST [address] [facility] [place] [address] School Counsellor Internal Medicine 02/23/25 B And B Gang Worker Relationship Specialty Start Date End Date Romel Michelle MD [address] [place] [address] PCP - General Internal Medicine 05/23/11 Fredis Buckner MD [address] [place] [address] Home Care Provider Gynecology 04/12/24 Fredis Buckner MD [address] [place], [place] [address] Referring Gynecology 04/13/24 Nile Hall DO [address] [place] [address] Hematology/Oncology 04/23/24 Yulia Holm RN Specialty Boot Trimmer Oncology 04/23/24 Cathy Coles APRN.PHOTOGRAPHER LITHOGRAPHIC [address] [place] [address] School Counsellor Internal Medicine 12/28/24 Rukhsana Paniagua APRN.STORE HOST [address] [place] [address] School Counsellor Internal Medicine 02/23/25 B And B Gang Worker Relationship Specialty Start Date End Date Romel Michelle MD [address] [place] [address] PCP - General Internal Medicine 05/23/11 Fredis Buckner MD [address] [place], [place] [address] Home Care Provider Gynecology 04/12/24 Fredis Buckner MD [address] [place], [place] [address] Referring Gynecology 04/13/24 Nile Hall DO [address] [place] [address] Hematology/Oncology 04/23/24 Yulia Holm RN Specialty Boot Trimmer Oncology 04/23/24 Cathy Coles APRN.PHOTOGRAPHER LITHOGRAPHIC [address] [place] [address] School Counsellor Internal Medicine 12/28/24 Rukhsana Paniagua APRN.STORE HOST [address] [place] [address] School Counsellor Internal Medicine 02/23/25 B And B Gang Worker Relationship Specialty Start Date End Date Romel Michelle MD [address] [place] [address] PCP - General Internal Medicine 05/23/11 Fredis Buckner MD [address] [place] [address] Home Care Provider Gynecology 04/12/24 Fredis Buckner MD [address] [place] [address] Referring Gynecology 04/13/24 Nile Hall DO [address] [place] [address] Hematology/Oncology 04/23/24 Yulia Holm RN Specialty Boot Trimmer Oncology 04/23/24 Cathy Coles APRN.PHOTOGRAPHER LITHOGRAPHIC [address] [place] [address] School Counsellor Internal Medicine 12/28/24 Rukhsana Paniagua APRN.STORE HOST [address] [place] [address] School Counsellor Internal Medicine 02/23/25 B And B Gang Worker Relationship Specialty Start Date End Date Romel Michelle MD [address] [place] [address] PCP - General Internal Medicine 05/23/11 Fredis Buckner MD [address] [place] [address] Home Care Provider Gynecology 04/12/24 Fredis Buckner MD [address] [place] [address] Referring Gynecology 04/13/24 Nile Hall DO [address] [place] [address] Hematology/Oncology 04/23/24 Yulia Holm RN Specialty Boot Trimmer Oncology 04/23/24 Cathy Coles, CONTESTANT COORDINATOR.PHOTOGRAPHER LITHOGRAPHIC [address] [place] [address] School Counsellor Internal Medicine 12/28/24 Rukhsana Paniagua, CONTESTANT COORDINATOR.STORE HOST [address] [place] [address] School Counsellor Internal Medicine 02/23/25 B And B Gang Worker Relationship Specialty Start Date End Date Romel Michelle MD [address] [place] [address] PCP - General Internal Medicine 05/23/11 Fredis Buckner MD [address] [place] [address] Home Care Provider Gynecology 04/12/24 Fredis Buckner MD [address] [place] [address] Referring Gynecology 04/13/24 Nile Hall DO [address] [place] [address] Hematology/Oncology 04/23/24 Yulia Holm RN Specialty Boot Trimmer Oncology 04/23/24 Cathy Coles CONTESTANT COORDINATOR.PHOTOGRAPHER LITHOGRAPHIC [address] [place] [address] School Counsellor Internal Medicine 12/28/24 Rukhsana Paniagua, CONTESTANT COORDINATOR.STORE HOST [address] [place] [address] School Counsellor Internal Medicine 02/23/25 B And B Gang Worker Relationship Specialty Start Date End Date Romel Michelle MD [address] [place] [address] PCP - General Internal Medicine 05/23/11 Fredis Buckner MD [address] [place] [address] Home Care Provider Gynecology 04/12/24 Fredis Buckner MD [address] [place] [address] Referring Gynecology 04/13/24 Nile Hall DO [address] [place] [address] Hematology/Oncology 04/23/24 Yulia Holm RN Specialty Boot Trimmer Oncology 04/23/24 Cathy Coles CONTESTANT COORDINATOR.PHOTOGRAPHER LITHOGRAPHIC [address] [place] [address] School Counsellor Internal Medicine 12/28/24 Rukhsana Paniagua, CONTESTANT COORDINATOR.STORE HOST [address] [place] [address] School Counsellor Internal Medicine 02/23/25 B And B Gang Worker Relationship Specialty Start Date End Date Romel Michelle MD [address] [place] [address] PCP - General Internal Medicine 05/23/11 Fredis Buckner MD [address] [place] [address] Home Care Provider Gynecology 04/12/24 Fredis Buckner MD [address] [place] [address] Referring Gynecology 04/13/24 Nile Hall DO [address] [place] [address] Hematology/Oncology 04/23/24 Yulia Holm, CECILIA Specialty Boot Trimmer Oncology 04/23/24 Cathy Coles, CONTESTANT COORDINATOR.PHOTOGRAPHER LITHOGRAPHIC [address] [place] [address] School Counsellor Internal Medicine 12/28/24 Rukhsana Paniagua, CONTESTANT COORDINATOR.STORE HOST [address] [place] [address] School Counsellor Internal Medicine 02/23/25 B And B Gang Worker Relationship Specialty Start Date End Date Romel Michelle MD [address] [place] [address] PCP - General Internal Medicine 05/23/11 Fredis Buckner MD [address] [place] [address] Home Care Provider Gynecology 04/12/24 Fredis Buckner MD [address] [place] [address] Referring Gynecology 04/13/24 Nile Hall DO [address] [place] [address] Hematology/Oncology 04/23/24 Yulia Holm RN Specialty Boot Trimmer Oncology 04/23/24 Cathy Coles APRN.PHOTOGRAPHER LITHOGRAPHIC [address] [place] [address] School Counsellor Internal Medicine 12/28/24 Rukhsana Paniagua APRN.STORE HOST [address] [place] [address] School Counsellor Internal Medicine 02/23/25 B And B Gang Worker Relationship Specialty Start Date End Date Romel Michelle MD [address] [place] [address] PCP - General Internal Medicine 05/23/11 Fredis Buckner MD [address] [place] [address] Home Care Provider Gynecology 04/12/24 Fredis Buckner MD [address] [place] [address] Referring Gynecology 04/13/24 Nile Hall DO [address] [place] [address] Hematology/Oncology 04/23/24 Yulia Holm, RN Specialty Boot Trimmer Oncology 04/23/24 Cathy Coles APRN.PHOTOGRAPHER LITHOGRAPHIC [address] [place] [address] School Counsellor Internal Medicine 12/28/24 Rukhsana Paniagua APRN.STORE HOST [address] [place] [address] School Counsellor Internal Medicine 02/23/25 Team Status: Active Member Role/Relationship Status Dates Dr. Romel Michelle MD Primary Care Provider Active Team Status: Inactive Member Role/Relationship Status Dates Dr. Romel Michelle MD Primary Care Provider Active Start: January 10, 2025 End: January 10, 2025 Dr. Romel Michelle MD Referring Provider Active Start: January 10, 2025 End: January 10, 2025 Dr. Leydi Carmen MD Attending Provider Active Start: January 10, 2025 End: January 10, 2025 Team Status: Active Member Role/Relationship Status Dates Dr. Romel Michelle MD Primary Care Provider Active Start: January 10, 2025 Dr. Romel Michelle MD Referring Provider Active Start: January 10, 2025 Dr. Leydi Carmen MD Attending Provider Active Start: January 10, 2025 Dr. Leydi Carmen MD Other Provider Active S tart: January 10, 2025 Team Status: Inactive Member Role/Relationship Status Dates Dr. Romel Michelle MD Primary Care Provider Active Start: March 01, 2025 End: March 01, 2025 Dr. Romel Michelle MD Referring Provider Active Start: March 01, 2025 End: March 01, 2025 KIRAN Hernández Attending Provider Active S tart: March 01, 2025 End: March 01, 2025 Team Status: Inactive Member Role/Relationship Status Dates Dr. Romel Michelle MD Primary Care Provider Active Start: April 26, 2025 End: April 26, 2025 Dr. Romel Michelle MD Referring Provider Active Start: April 26, 2025 End: April 26, 2025 Dr. Ankur Colon DO Attending Provider Active Start: April 26, 2025 End: April 26, 2025 Team Status: Active Member Role/Relationship Status Dates Dr. Romel Michelle MD Primary Care Provider Active Start: April 26, 2025 Dr. Romel Michelle MD Referring Provider Active Start: April 26, 2025 Dr. Ankur Colon DO Attending Provider Active Start: April 26, 2025 Dr. Ankur Colon , DO Other Provider Active St art: April 26, 2025 Goals (unrecognized section and content) Goals may be documented in a n alternate section INFORMATION SOURCE (unrecogn ized section and content) DATE CREATED AUTHOR 03/28/2024 [facility] ([place]) DATE CREATED AUTHOR AUTHOR'S ORGANIZ ATION 04/23/2025 [facility] DATE CREATED AUTHOR AUTHOR'S ORGANIZ ATION 04/25/2025 [facility] DATE CREATED AUTHOR AUTHOR'S ORGANIZ ATION 04/26/2025 [facility] FOR RECORDS PERTAINING TO PATIENTS WHO ARE OR HAVE BEEN ENROLLED IN A CHEMICAL DEPENDENCY/SUBSTANCEABUSE PROGRAM, SOME INFORMATION MAY BE OMITTED. This clinical summary was aggregated from multiple sources. Caution should be exercised in using it in the provision of clinical care. This summary normalizes information from multiple sources, and as a consequence, information in this document may materially change the coding, format and clinical context of patient data. In addition, data may be omitted in some cases. CLINICAL DECISIONS SHOULD BE BASED ON THE PRIMARY CLINICAL RECORDS. [facility]. provides no warranty or guarantee of the accuracy or completeness of information in this document.
== END 2025-04-26 15:40 | disposition home or self-care (01) ==
LOC: EN 13:21 → AC 13:39
PROVIDERS: PCP Internal Medicine; Referring Provider Internal Medicine; Visit Provider Internal Medicine Gastroenterology
PROC: 0DJD8ZZ Inspection of Lower Intestinal Tract, Via Natural or Artificial Opening Endoscopic (ICD-10-PCS; CPT 45378; principal; 2025-04-26 14:10)
DX: K91.89 Other postprocedural complications and disorders of digestive system (principal); K56.690 Other partial intestinal obstruction; K92.1 Melena; Z98.0 Intestinal bypass and anastomosis status; Z90.49 Acquired absence of other specified parts of digestive tract
CPT/HCPCS: 45380; 45382; 88305; C1889; J2405

== ENCOUNTER 2025-06-14 12:27 | Outpatient (CLI) | payer MEDICARE, SELFPAY ==
[2025-06-14 12:54] VITALS: BP 123/51; PULSE 85; RESP 16; TEMP 35.9; O2SAT 96; BMI 20.6
[2025-06-14 13:51] VITALS: BP 117/61; PULSE 90; RESP 16; TEMP 36.1; O2SAT 100
[2025-06-14 15:29] VITALS: BP 113/63; PULSE 78; RESP 16; TEMP 36.3; O2SAT 100
== END 2025-06-14 23:59 | disposition home or self-care (01) ==
LOC: MEDOUTP 12:28
PROVIDERS: PCP Internal Medicine; Referring Provider Internal Medicine Hematology & Oncology; Visit Provider Internal Medicine Hematology & Oncology
DX: D50.0 Iron deficiency anemia secondary to blood loss (chronic) (principal)
CPT/HCPCS: 36430; 86850; 86900; 86901; 86920; 86922; P9016; A4216

== ENCOUNTER 2025-10-02 06:54 | Emergency (ER) | payer MEDICARE, SELFPAY ==
[2025-10-02 06:55] VITALS: BP 126/80; PULSE 107; RESP 18; TEMP 36.5; O2SAT 97; BMI 20.5
[2025-10-02 06:59] VITALS: BP 126/80; PULSE 99; RESP 18; TEMP 36.5; O2SAT 98
--- NOTE | 2025-10-02 07:05 | EKG12_ITS ---
Test Reason : Blood Pressure : */* mmHG Vent. Rate : 84 BPM Atrial Rate : 84 BPM P-R Int : 156 ms QRS Dur : 72 ms QT Int : 360 ms P-R-T Axes : 77 56 65 degrees QTcB Int : 425 ms Normal sinus rhythm Nonspecific ST abnormality Abnormal ECG Confirmed by Bryan Perkins ([id number]), film editor DEBI FLORES ([id number]) on 10/04/2025 10:03:39 AM Referred By: Confirmed By: Bryan Perkins
--- NOTE | 2025-10-02 07:26 | EX.ED.DYSGE1 ---
HPI History of Present Illness Chief Complaint: Abd Pain Narrative Narrative: Patient is a 75-year-old female with a past medical history of ovarian cancer with mets actively undergoing chemotherapy, ileostomy with reversal, IBS, anemia, alcohol use who presented to the emergency department the chief complaint of abdominal pain. She states that she has been dealing with abdominal pain for a significant amount of time now however she notes that this has been progressively worsening. She states that she is having a lot of belching and not passing much gas from below. Patient denies any black stools or blood in her stool [facility] Medical History Alcohol use Arthritis History of flexible sigmoidoscopy History of chemotherapy Wears glasses Cancer Anemia History of IBS Non-smoker Ovarian cancer Blood in stool, nikki Home Medications ?Medication ?Instructions ?Recorded ?Last Taken ?Type loperamide 2 mg capsule 2 mg PO Q1-4H PRN loose stool 06/04/19 Unknown History dicyclomine 10 mg capsule 10 mg PO TID PRN Abdominal Pain 09/04/21 Unknown History ondansetron 8 mg disintegrating 8 mg PO Q8 PRN nausea/vomiting 12/17/24 Unknown History tablet prochlorperazine maleate 10 mg 10 mg PO BID PRN nausea and 12/17/24 Unknown History tablet (Compazine) vomiting Allergy/AdvReac Type Severity Reaction Status Date / Time No Known Allergies Allergy Verified 10/02/25 06:58 Family History Father CAD (coronary artery disease) Mother No problems noted. Surgical History History of reversal of ileostomy History of resection of small bowel Hx of colonoscopy H/O: hysterectomy Social History adopted: No current occupational status: unemployed Smoking Status: Never smoker alcohol intake: current alcohol intake frequency: holidays/special occasions only substance use type: does not use what type of physical activity do you participate in: walking frequency: 5-6 times per week seatbelt use: always do you feel safe at home: Yes additional social history: Spouse: Cliff AIDAN BERMUDEZ ED ROS Narrative Constitutional: Denies any fevers, chills Eyes: Denies double vision Cardiovascular: Denies chest pain Respiratory: Denies shortness of breath Abdomen: Complains of abdominal pain as noted above as well as nausea denies vomiting or diarrhea : Denies urinary symptoms Neurological: Denies any numbness, weakness, tingling Musculoskeletal: Denies back pain Skin: Denies any rashes or lesions EXAM Physical Exam Narrative Exam Narrative: General: Patient was lying in bed rest comfortably did not appear to be in acute distress Head: Atraumatic, normocephalic Eyes: PERRL bilaterally, EOMI bilaterally, no conjunctival injection noted Neck: Soft, supple, trachea midline Cardiovascular: Regular rate and rhythm Respiratory: Clear to auscultation bilaterally Abdomen: Soft, nondistended, diffuse tenderness to palpation no rebound or guarding on exam Extremities: +5/5 strength in the bilateral upper and lower extremities Neurological: Patient following commands knew that she was at [facility] years 2024 Skin: Warm, dry, intact no rashes or lesions noted Const Vital Signs: 10/02/25 06:55 10/02/25 06:59 10/02/25 09:00 Temperature 97.7 F L 97.7 F L Temperature Source Oral Oral Pulse Rate 107 H 99 78 Respiratory Rate 18 18 18 Blood Pressure 126/80 H 126/80 H 123/77 H Blood Pressure Mean 95 95 92 Pulse Ox 97 98 98 Oxygen Delivery Method Room Air Room Air Room Air MDM MDM MDM Narrative Medical decision making narrative: Patient is a 75-year-old female who presented to the emergency department chief complaint abdominal pain. On the differential diagnose includes but not limited to bowel obstruction, viral gastroenteritis, worsening metastasis, appendicitis, pancreatitis. Once workup is obtained reviewed she will be reevaluated. Patient was given IV fluids, morphine Zofran. Insert patient CBC reviewed and showed a white blood count 5.6, hemoglobin 12, plate count of 231. Patient sodium was 131, potassium normal at 4, creatinine was noted to be 1.17. Patient AST and ALT were 98 and 81 respectively lipase is notably normal at 41. Patient's urinalysis was reviewed and showed 150 ketones negative nitrites 100 leukocyte esterase 0 white blood cells with no bacteria noted. Patient CT abdomen pelvis IV contrast reviewed showed findings concerning for small bowel obstruction with a likely transition point in the terminal ileus where there is bowel wall thickening suggestive of a terminal ileitis. Dilated right colon measuring up to 7.5 cm. She has multiple heterogeneous hypoattenuating hepatic lesions concerning for metastatic disease in the setting of ovarian malignancy. Patient EKG showed sinus rhythm rate of 84 bpm SC interval 156 I reached out to on-call general surgeon Dr. Blackburn who is recommending transfer to [facility] where her previous surgery and care were performed. I discussed this plan with the patient at 9:25 AM and she is agreeable. Patient was placed on LR at 125 cc an hour. Note from Dr. Hall This is from June 01, 2025 was reviewed which the pathology report showed high-grade serous carcinoma. 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 there is note as well as her being on Zejula I spoke with [facility] oncology Dr. Shepard who will accept patient for transfer. She states that if she starts to develop worsening pain nausea vomiting she would recommend having low threshold for placing NG tube we will continue to monitor. Did update the patient who is agreeable this plan. All question concerns were answered. Lab Data Labs: Laboratory Results - last 24 hr 10/02/25 10/02/25 07:40 07:41 WBC 5.6 RBC 4.12 L Hgb 12.0 Hct 36.0 L MCV 87.4 MCH 29.1 MCHC 33.3 RDW Std Deviation 42.3 RDW Coeff of [place] 13.2 Plt Count 231 MPV 9.7 Immature Gran % (Auto) 0.200 Neut % (Auto) 75.2 H Lymph % (Auto) 10.6 L Gilchrist % (Auto) 13.6 H Eos % (Auto) 0.0 Baso % (Auto) 0.4 Absolute Neuts (auto) 4.2 Absolute Lymphs (auto) 0.59 L Nucleated RBC % 0 Sodium 131 L Potassium 4.0 Chloride 94 L Carbon Dioxide 17.4 L Anion Gap 20 H BUN 15 Creatinine 1.17 Estim Creat Clear Calc 37.93 L Est GFR (MDRD) Non-Af 49 L BUN/Creatinine Ratio 12.9 Glucose 90 Calcium 9.8 Total Bilirubin 0.31 AST 98 H ALT 81 H Alkaline Phosphatase 152 H Total Protein 7.4 Albumin 4.2 Globulin 3.2 Albumin/Globulin Ratio 1.3 Lipase 41 Urine Color Yellow Urine Clarity Clear Urine pH 6.0 Ur Specific [place] [employer] 1.020 Urine Protein 30 H Urine Glucose (UA) Normal Urine Ketones 150 A* Urine Occult Blood 10 H Urine Nitrite Negative Urine Bilirubin 1 H Urine Urobilinogen Normal Ur Leukocyte Esterase 100 H Urine RBC 0-5 SEEN Urine WBC 0 SEEN Ur Squamous Epith Cells 0-5 SEEN Urine Bacteria 0 SEEN Urine Mucus 0 SEEN Radiography Diagnostic Testing: Clinical Impression(s) from Imaging Studies Abdomen/Pelvis CT 10/02/25 08:10 IMPRESSION: 1. Dilated fluid-filled loops of small bowel in the pelvis concerning for low-grade small bowel obstruction. Likely transition point in the terminal ileus where there is bowel wall thickening suggestive of terminal ileitis. 2. Dilated right colon measuring up to 7.5 cm. 3. Multiple heterogeneous hypoattenuating hepatic lesions concerning for metastatic disease in the setting of ovarian malignancy. 4. Additional findings discussed in the body of the report. Reading Location: [facility] Discharge Plan Triage Chief Complaint: Abd Pain ED Provider: Pratik Reeves Dx/Rx/DC Orders Clinical Impression: Abdominal pain, Bowel obstruction, History of ovarian cancer Prescriptions: No Action loperamide 2 mg capsule 2 mg PO Q1-4H PRN (Reason: loose stool) dicyclomine 10 mg capsule 10 mg PO TID PRN (Reason: Abdominal Pain) ondansetron 8 mg tablet,disintegrating 8 mg PO Q8 PRN (Reason: nausea/vomiting) prochlorperazine maleate [Compazine] 10 mg tablet 10 mg PO BID PRN (Reason: nausea and vomiting) Primary Care Provider: Charlotte Nielson Referrals: Charlotte Nielson MD [Primary Care Provider, Internal Medicine] Print Language: Latvian Disposition Disposition: DC/Tx to Another Type of HCF
--- OUTSIDE RECORDS SUMMARY | 2025-10-02 07:30 | XMS RPT_ITS | CCD ---
Author Organization [facility] CliniSypr Care Team Providers Care Window Trimmer Name Role Phone Romel Michelle MD Primary Care Provider Romel Michelle MD Primary Care Provider Fermin CHASE, Crystal Unavailable Provider Bria OCASIO Unavailable Unavailable PHYSICIAN, NONE Attending Unavailable PHYSICIAN, NONE Primary Care Unavailable Ashley OCASIO, Fredis Barrera Unavailable Fredis Buckner MD Unavailable Bria Kelly MD Unavailable Unavailable Nile Hall DO Unavailable Alta RN, Yulia Unavailable Unavailable Margret RN, Jason Unavailable Margret RN, Jason Unavailable Paniagua WATER COMMISSIONER.RECRUITMENT SPECIALIST, Rukhsana Unavailable Sharyn WATER COMMISSIONER.CLAMP OPERATOR, Cathy Unavailable Zain RN, Kendy Unavailable Sharyn WATER COMMISSIONER.CLAMP OPERATOR, Cathy Devi Unavailable Sharyn WATER COMMISSIONER.CLAMP OPERATOR, Cathy Unavailable Dr. Romel Michelle MD Primary Care Provider Dr. Romel Michelle MD Referring Provider Dr. Leydi Carmen MD Attending Provider Dr. Nile Hall DO Other Provider Dr. Leydi Carmen MD Other Provider Sharyn WATER COMMISSIONER.CLAMP OPERATOR, Cathy Unavailable Elba Pickett Attending Provider Paniagua WATER COMMISSIONER.RECRUITMENT SPECIALIST, Rukhsana Unavailable Nisreen OCASIO, Dr. Romel Calderon Primary Care Provider [phone] Nisreen OCASIO, Dr. Romel Calderon Referring Provider Kermit OCASIO, Dr. Holley Attending Provider Kermit OCASIO, Dr. Holley Other Provider Friend , Dr. Pascual Attending Provider Friend DO, Dr. Pascual Other Provider Ashley OCASIO, Fredis Barrera Unavailable Fredis Buckner MD Unavailable Talampas, Romel D Referring Unavailable Talampas, Romel D Primary Care Unavailable Robotham, Leydi Attending Unavailable Talampas, Romel D Referring Unavailable Elba Ahumada Attending Unavailable Talampas, Romel D Primary Care Unavailable Masci, Nile Consulting Unavailable Talampas, Romel D Referring Unavailable Talampas, Romel D Primary Care Unavailable Robotham, Leydi Attending Unavailable Robotham, Leydi Consulting Unavailable Talampas, Romel D Primary Care Unavailable Talampas, Romel D Referring Unavailable Friend, Ankur Consulting Unavailable Friend, Ankur Attending Unavailable Talampas, Romel D Referring Unavailable Talampas, Romel D Primary Care Unavailable Robotham, Leydi Consulting Unavailable Robotham, Leydi Attending Unavailable Masci, Nile Consulting Unavailable Talampas, Romel D Referring Unavailable Talampas, Romel D Primary Care Unavailable Robotham, Leydi Attending Unavailable Friend, Ankur Attending Unavailable Talampas, Romel D Referring Unavailable Talampas, Romel D Primary Care Unavailable Talampas, Romel D Referring Unavailable Talampas, Romel D Primary Care Unavailable Robotham, Leydi Attending Unavailable Masci, Nile Attending Unavailable Masci, Nile Referring Unavailable Talampas, Romel D Primary Care Unavailable Nisreen OCASIO, Dr. Romel Calderon Primary Care Provider Nisreen OCASIO, Dr. Romel Calderon Referring Provider Rafael MCKINLEY, Dr. Dowd Attending Provider Rafael MCKINLEY, Dr. Dowd Referring Provider TALAMPAS, ROMEL D Primary Care Unavailable MASCINILE Attending Unavailable TALAMPAS, ROMEL D Primary Care Unavailable MASCINILE Referring Unavailable TALAMPAS, ROMEL D Primary Care Unavailable MASCINILE Referring Unavailable TALAMPAS, ROMEL D Primary Care Unavailable MASCI, NILE Haddad Referring Unavailable TALAMPAS, ROMEL D Primary Care Unavailable MASCINILE Attending Unavailable TALAMPAS, ROMEL D Primary Care Unavailable MASCINILE Referring Unavailable TALAMPAS, ROMLE D Primary Care Unavailable MASCINILE Referring Unavailable [...] Primary Care Unavailable FREDIS BUCKNER Attending Unavailable FREDIS BUCKNER Referring Unavailable TALAMPAS, ROMEL D Primary Care Unavailable TALAMPAS, ROMEL D Primary Care Unavailable MASCNILE Harris Referring Unavailable TALAMPAS, ROMEL D Primary Care Unavailable MASCNILE Harris Referring Unavailable TALAMPAS, ROMEL D Primary Care [...] Primary Care Unavailable NILE HALL Referring Unavailable TALAMPAS, ROMEL D Primary Care Unavailable NILE HALL Referring Unavailable TALAMPAS, ROMEL D Primary Care Unavailable MASCNILE Harris Referring Unavailable TALAMPAS, ROMEL D Primary Care Unavailable TALAMPAS, ROMEL D Primary Care Unavailable LINDA NUÑEZ Attending Unavailable TALAMPAS, ROMEL D Primary Care Unavailable NILE HALL Referring Unavailable TALAMPAS, ROMEL D Primary Care Unavailable NILE HALL Referring Unavailable TALAMPAS, ROMEL D Primary Care Unavailable NILE HALL Referring Unavailable LINDA NUÑEZ Attending Unavailable TALAMPAS, ROMEL D Primary Care Unavailable TALAMPAS, ROMEL D Primary Care Unavailable TALAMPAS, ROMEL D Primary Care Unavailable FREDIS BUCKNER Attending Unavailable TALAMPAS, ROMEL D Primary Care Unavailable FREDIS BUCKNER Referring Unavailable TALAMPAS, ROMEL D Primary Care Unavailable TALAMPAS, ROMEL D Primary Care Unavailable NILE HALL Attending Unavailable TALAMPAS, ROMEL D Primary Care Unavailable NILE HALL Referring Unavailable TALAMPAS, ROMEL D Primary Care Unavailable TALAMPAS, ROMEL D Primary Care Unavailable TALAMPAS, ROMEL D Primary Care Unavailable TALAMPAS, ROMEL D Primary Care Unavailable TALAMPAS, ROMEL D Primary Care Unavailable NILE HALL Referring Unavailable TALAMPAS, ROMEL D Primary Care Unavailable MASCNILE Harris Referring Unavailable TALAMPAS, ROMEL D Primary Care Unavailable ROMEL MICHELLE Primary Care Unavailable NILE HALL Referring Unavailable LINDA NUÑEZ Attending Unavailable LINDA NUÑEZ Attending Unavailable ROMEL MICHELLE Primary Care Unavailable ROMEL [...] Start: 04-15-2024 take 2 tablets by mo [facility] every six hours as needed acetaminophen [...] on above: Take 1 tablet by jennifer one time a week. Take with a [...] or 2 before m eals, as needed. folic acid 1 mg oral tablet (7 sources) Start: 06-14-2025 take 1 tablet by mouth once daily folic acid 1 mg tablet Take 1 tablet by mouth once daily. 90 tablet 3 06/14/2025 Active loperamide hydrochloride 2 mg oral tablet (20 [...] Take 1 tablet by jennifer as needed. mesalamine 1200 mg delayed release oral tablet (13 sources) Aminosalicylate Start: take 1 tablet by mouth once daily Mesalamine (Lialda) 1.2 gram tablet,delayed release (DR/EC) Active 1.2 g PO daily 90 90 0 May 03, 2025 12:00am July 31, 2025 12:00am Mesalamine (LIAL DA) 1.2 gram EC tablet Take 1,200 mg by mouth daily with breakfast. Active metroNIDAZOLE 500 mg oral tablet (20 sources) [...] 03/15/2024 Active niraparib (ZEJULA) 200 mg tablet (20 sources) Start: 06-01-2025 take 1 tablet by mouth once niraparib (ZEJULA) 200 mg tablet Take 1 tablet (200mg) by mouth every Friday, , Friday and Friday. Do not take on Mondays, Wednesdays and Fridays. 16 tablet 5 06/09/2025 1:25 PM EDT 06/01/2025 Active Start: 06-01-2025 take 1 tablet by mouth once ni raparib (ZEJULA) 200 mg tablet Take 1 tablet (200mg) by mouth every Friday, , Friday and Friday. Do not take on Mondays, Wednesdays and Fridays. 16 tablet 5 06/01/2025 Active Start: 06-01-2025 niraparib (ZEJ JOHN) 200 mg tablet Take one tablet every Friday, , Friday and Friday. Do not take on Mondays, Wednesdays and Fridays. 16 tablet 5 06/01/2025 Active Start: 03-14-2025 End: 06-01-2025 take 1 tablet by mouth once daily in the morning niraparib (ZEJULA) 200 mg tablet Indications: High grade ovarian cancer (HCC) Take 1 tablet (200mg) by mouth once daily. 30 tablet 1 05/10/2025 9:58 AM EDT 03/14/2025 06/01/2025 Discontinued Start: 03-14-2025 take 1 tablet by jennifer th once daily in the morning niraparib (ZEJULA) 200 mg tablet Indications: High grade ovarian cancer (HCC) Take 1 tablet (200mg) by mouth once daily. 30 tablet 1 05/10/2025 9:58 AM EDT 03/14/2025 Active Start: 03-14-2025 take 1 tablet by jennifer th once daily in the evening niraparib (ZEJULA) [...] tablet (20 sources) Serotonin-3 Receptor Antagonist Start: 04-22-2024 End: 12-02-2024 take 1 tablet [...] over 30 Minutes, ONCE, 1 dose, On 07/23/24 at 1030, Approx Total Volume - Expires: [...] Comment on above: Take 1 tablet by [facility] once daily. cholecalciferol 0.05 mg oral [...] Comment on above: Take 1 capsule by [facility] once daily. dexamethasone 4 mg oral tablet [...] provided with radiology test) (20 sources) Start: 06-07-2025 End: 06-08-2025 enteric contrast (will be provided with radiology test) For CT CHESTABD/PEL W IVCON Routine order Administer, As Directed One Time Only, via Oral, Rectal, both Oral and Rectal, Enteric Tube, Stoma or Indwelling Catheter, Enteric Contrast as designated per enteric contrast guidelines 1 each 06/07/2025 06/08/2025 Start: 12-02-2024 End: 03-14-2025 enteric contrast (will be pr ovided with [...] Discontinued Start: 07-11-2011 take 1 capsule by mo uth once daily ergocalciferol, Vitamin D2, (VITAMIN D) 400 unit ORAL Cap Take 1 capsule by mouth once daily. 0 07/11/2011 Active Comment on above: Take 1 capsule by mo uth once daily. 2 ml famotidine 10 mg/ml [...] 20 mg, INTRAVENOUS, ONCE, 1 dose, On Usze 07/01/24 at 0900, Give prior to chemotherapy. [...] d with radiology test) (20 sources) Start: 06-07-2025 End: 06-08-2025 iv contrast (will be provide d with radiology test) CT Chest ABD/PEL-Inject, intravenously, once for 1 [...] the CT contrast administration guidelines link. 1 each 06/07/2025 06/08/2025 Start: 12-02-2024 End: 03-14-2025 iv contrast (will [...] by jennifer th once daily. nutritional supplement (Plazapoints (Cuponium) STANDARD 1.4) 0.06 G - 1.4 Kcal/mL oral liquid (20 sources) Start: 03-24-20 End: 02-04-20 take 325 mL by mouth three times daily nutritional supplement (Plazapoints (Cuponium) STANDARD 1.4) 0.06 G - 1.4 Kcal/mL oral liquid Take 325 mL by mouth three times a day. 3250 mL 2 03/24/2024 02/03/2025 Discontinued (Other) Start: 03-24-2024 take 325 mL by mouth three times daily nutritional supplement (Plazapoints (Cuponium) STANDARD 1.4) 0.06 G - 1.4 Kcal/mL oral liquid Take 325 mL by mouth three times a day. 3250 mL 2 03/24/2024 Suspended Start: 03-24-2024 take 325 mL by mouth three times daily nutritional supplement (Plazapoints (Cuponium) STANDARD 1.4) 0.06 G - 1.4 Kcal/mL oral liquid Take 325 mL by mouth three times a day. 3250 mL 2 03/24/2024 Active Start: 03-24-2024 End: 04-23-2024 nutritional supplement (Plazapoints (Cuponium) STANDARD 1.4) 0.06 G - 1.4 Kcal/mL oral liquid [The details of the medication are not available because there are pending changes by a home health clinician.] 3250 mL 2 03/24/2024 04/23/2024 Active Start: 03-24-2024 End: 04-23-2024 take 325 mL by mouth three times daily nutritional supplement (Plazapoints (Cuponium) STANDARD 1.4) 0.06 G - 1.4 Kcal/mL oral liquid Take 325 mL by mouth three times a day. 3250 mL 2 03/24/2024 04/23/2024 Suspended Start: 03-24-2024 End: 04-23-2024 take 325 mL by mouth three times daily nutritional supplement (Plazapoints (Cuponium) STANDARD 1.4) 0.06 G - 1.4 Kcal/mL oral liquid Take 325 mL by mouth three times a day. 3250 mL 2 03/24/2024 04/23/2024 Active nutrutional supplement (JAYLIN FARMS STANDARD 1.4) 0.06G-1.4Kcal/mL oral liquid liquid (5 sources) Start: 12-17-2024 End: 01-05-2025 nutrutional supplement (Plazapoints (Cuponium) STANDARD 1.4) 0.06G-1.4Kcal/mL oral liquid liquid Discontinued PO December 17, 2024 12:00am January 05, 2025 2:22pm Start: 12-17-2024 nutrutional saenz pplement (Plazapoints (Cuponium) STANDARD 1.4) 0.06G- 1.4Kcal/mL oral liquid liquid [...] 0.25 mg, INTRAVENOUS, ONCE, 1 dose, On 06/11/24 at 1000, Flush IV line with NS prior to and following administration. Start: 05-19-2024 End: 05-19-2024 palonosetron 0.25 mg injecti on (ALOXI) Start: 04-28-2024 End: 04-28-2024 palonosetron 0.25 mg injecti on (ALOXI) polyethylene glycol 3350 31610 mg powder for oral solution (20 sources) [...] is gone. 235 g 0 03/31/2024 Suspended vitamin b12 1 mg/ml injectable solution (5 sources) Vitamin B12 Start: 06-20-2025 End: 06-21-2025 inject 1 dose by intramuscular injection once 1,000 mcg, INTRAMUSCULAR, ONCE, 1 dose, On Tu06/21/25 at 0900 Start: 06-17-2025 End: 06-17-2025 inject 1 dose by intramuscular injection once 1,000 mcg, INTRAMUSCULAR, ONCE, 1 dose, On 06/17/25 at 1030 Start: 06-15-2025 End: 06-16-2025 inject 1 dose by intramuscular injection once 1,000 mcg, INTRAMUSCULAR, ONCE, 1 dose, On Suze 06/16/25 at 1030 Problems Active Problems Problem Classification Problem Date Documented Da te Episodic/Chronic Abdominal pain (4 sources) Generalized abdominal pain; Translations: [Generalized abdominal pain] 03-03-2024 Episodic Administrative/social admission (3 sources) Education and/or schooling finding; Translations: [Problems related to education and literacy, unspecified] Onset: 5 03-16-2024 Episodic Cancer of ovary (20 sources) Malignant tumor of ovary; Translations: [Malignant neoplasm of unspecified ovary] Onset: 4 04-19-2024 Chronic Coagulation and hemorrhagic disorders (2 sources) Thrombocytopenic disorder; Translations: [Thrombocytopenia, unspecified] Onset: 5 06-01-2025 Chronic Deficiency and other anemia (20 sources) Iron deficiency anemia due to blood loss; Translations: [Iron deficiency anemia secondary to blood loss (chronic)] Onset: 5 03-02-2025 Chronic Deficiency and other anemia (2 sources) Iron deficiency anemia secondary to blood loss (chronic); Translations: [Iron deficiency anemia secondary to blood loss (chronic)] Onset: Chronic Deficiency and other anemia (2 sources) Anemia; Translations: [Anemia, unspecified] 03-02-2025 Episodic Deficiency and other anemia (12 sources) Megaloblastic anemia due to vitamin B>12< deficiency; Translations: [Other megaloblastic anemias, not elsewhere classified] Onset: 5 06-14-2025 Episodic Deficiency and other anemia (1 source) Other megaloblastic anemias, not elsewhere classified; Translations: [Megaloblastic anemia due to vitamin B12 deficiency] Onset: 5 Episodic Gastrointestinal hemorrhage (19 sources) Painless rectal bleeding; Translations: [Hemorrhage of anus and rectum] Onset: 5 12-02-2024 Episodic Nutritional deficiencies (20 sources) Vitamin D deficiency; Translations: [Vitamin D deficiency, unspecified] Onset: 4 03-08-2024 Chronic Nutritional deficiencies (20 sources) Nutritional deficiency state; Translations: [Nutritional deficiency, unspecified] Onset: 4 03-17-2024 Episodic Osteoporosis (1 source) Senile osteoporosis; Translations: [Age-related osteoporosis without current pathological fracture] Chronic Other aftercare (5 sources) Patient encounter status; Translations: [Other mcfp (current) drug therapy] Episodic Other aftercare (3 sources) Surgical follow-up; Translations: [Encounter for follow-up examination after completed treatment for conditions other than malignant neoplasm] 09-14-2024 Episodic Other gastrointestinal disorders (20 sources) Irritable bowel syndrome with diarrhea; Translations: [Irritable bowel syndrome with diarrhea] Onset: 6 11-16-2015 Chronic Other gastrointestinal disorders (1 source) Irritable bowel syndrome; Translations: [Mixed irritable bowel syndrome] 03-08-2024 Chronic Other gastrointestinal disorders (20 sources) Malabsorption - iron; Translations: [Intestinal malabsorption, unspecified] Onset: 5 03-02-2025 Chronic Other gastrointestinal disorders (1 source) Intestinal malabsorption, unspecified; 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)] Onset: 5 Chronic Other gastrointestinal disorders (1 source) Irritable bowel syndrome with diarrhea; Translations: [Irritable bowel syndrome with diarrhea] Onset: 6 Chronic Other gastrointestinal disorders (6 sources) Abdominal [...] postprocedural states] 04-19-2024 Episodic Residual codes; unclassified (6 sources) History of closure of ileostomy; Translations: [Other specified postprocedural states] 03-01-2025 Episodic Residual codes; unclassified (1 source) Other specified postprocedural states; Translations: [Other specified postprocedural states] Onset: 5 Episodic Secondary malignancies (3 sources) Secondary malignant neoplasm of liver and intrahepatic bile duct; Translations: [Cancer, 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)] Onset: 5 Chronic Unclassified (1 source) Ovarian cancer, bilateral (HCC); Translations: [Ovarian cancer, bilateral (HCC)] Onset: 4 Past or Other Problems Problem Classification Problem Date Documented Da te Episodic/Chronic Deficiency and other anemia (1 source) Anemia, unspecified; Translations: [Anemia, unspecified type] Onset: 03-02-2025 Episodic Genitourinary symptoms and ill-defined conditions (3 sources) Nikki hematuria; Translations: [Gross hematuria] Onset: 12-03-2024 04-30-2024 Episodic Other aftercare (1 source) Encounter for follow-up examination after completed treatment for conditions other than malignant neoplasm; Translations: [Postop check] Onset: 10-08-2024 Episodic Other bone disease and musculoskeletal deformities [...] Onset: 03-17-2024 03-17-2024 Episodic Other gastrointestinal disorders (1 source) Intra-abdominal and pelvic swelling, mass and lump, unspecified site; Translations: [Pelvic mass in female] Onset: 04-09-2024 Episodic Other nervous system disorders (20 sources) [...] CBC W Auto Differential pane l (Bld)on 08-12-2025 Basophils (Bld) [#/Vol] 0.03 10*3/uL Normal <0.11 [facility] Comment on above: Order Comment: Speci men Type: BLOOD SPECIMENOrdering Facility: [facility] Address: [address] [place] [address] Performed By: #### 5 7021-8 ####[facility] MILLEDGARWNCLIA [id number] [place] [address] [place] Basophils/100 WBC (Bld) 0.5 % Normal [facility] Comment on above: Order Comment: Speci men Type: BLOOD SPECIMENOrdering Facility: [facility] Address: [address] [place] [address] Performed By: #### 5 7021-8 ####[facility] ALISAWNCLIA [id number] [place] [address] [place] Differential cell count method Nom (Bld) Auto Normal [facility] Comment on above: Order Comment: Speci men Type: BLOOD SPECIMENOrdering Facility: [facility] Address: [address] [place] [address] Performed By: #### 5 7021-8 ####[facility] ALISAOfeliaIGGYLIA [id number] [place] [address] [place] Eosinophils (Bld) [#/Vol] 0.04 10*3/uL Normal <0.46 [facility] Comment on above: Order Comment: Speci men Type: BLOOD SPECIMENOrdering Facility: [facility] Address: [address] [place] [address] Performed By: #### 5 7021-8 ####[facility] ALISAOfeliaIGGYLIA [id number] [place] [address] [place] Eosinophils/100 WBC (Bld) 0.6 % Normal [facility] Comment on above: Order Comment: Speci men Type: BLOOD SPECIMENOrdering Facility: [facility] Address: [address] [place] [address] Performed By: #### 5 7021-8 ####[facility] ALISAARAPAHONCLIA [id number] [place] [address] [place] Erythrocyte distribution width (RBC) [Ratio] 15.3 % High 11.5-15.0 [facility] Comment on above: Order Comment: Speci men Type: BLOOD SPECIMENOrdering Facility: [facility] Address: [address] [place] [address] Performed By: #### 5 7021-8 ####[facility] ALISAOfeliaNCDEMETRIO [id number] [place] [address] [place] Hematocrit (Bld) [Volume fraction] 32.8 % Low 36.0-46.0 [facility] Comment on above: Order Comment: Speci men Type: BLOOD SPECIMENOrdering Facility: [facility] Address: [address] [place] [address] Performed By: #### 5 7021-8 ####[facility]ITALNCLIA [id number] [place] [address] [place] Hemoglobin (Bld) [Mass/Vol] 10.8 g/dL Low 11.5-15.5 [facility] Comment on above: Order Comment: Speci men Type: BLOOD SPECIMENOrdering Facility: [facility] Address: [address] [place] [address] Performed By: #### 5 7021-8 ####[facility]ITALNCLIA [id number] [place] [address] [place] Immature granulocytes (Bld) [#/Vol] 10*3/uL Normal <0.10 [facility] Comment on above: Order Comment: Speci men Type: BLOOD SPECIMENOrdering Facility: [facility] Address: [address] [place] [address] Performed By: #### 5 7021-8 ####[facility]ITALNCLIA [id number] [place] [address] [place] Immature granulocytes/100 WBC (Bld) 0.2 % Normal [facility] Comment on above: Order Comment: Speci men Type: BLOOD SPECIMENOrdering Facility: [facility] Address: [address] [place] [address] Performed By: #### 5 7021-8 ####[facility]ITALNCLIA [id number] [place] [address] [place] Lymphocytes (Bld) [#/Vol] 0.68 10*3/uL Low 1.00-4.00 [facility] Comment on above: Order Comment: Speci men Type: BLOOD SPECIMENOrdering Facility: [facility] Address: [address] [place] [address] Performed By: #### 5 7021-8 ####[facility] HOSPITALNCA [id number] [place] [address] [place] Lymphocytes/100 WBC (Bld) 11.0 % Normal [facility] Comment on above: Order Comment: Speci men Type: BLOOD SPECIMENOrdering Facility: [facility] Address: [address] [place] [address] Performed By: #### 5 7021-8 ####[facility]PITALNCLI [id number] [place] [address] [place] MCH (RBC) [Entitic mass] 30.3 pg Normal 26.0-34.0 [facility] Comment on above: Order Comment: Speci men Type: BLOOD SPECIMENOrdering Facility: [facility] Address: [address] [place] [address] Performed By: #### 5 7021-8 ####[facility] CENTERLIA [id number] [place] [address] [place] MCHC (RBC) [Mass/Vol] 32.9 g/dL Normal 30.5-36.0 [facility] Comment on above: Order Comment: Speci men Type: BLOOD SPECIMENOrdering Facility: [facility] Address: [address] [place] [address] Performed By: #### 5 7021-8 ####[facility]ITALNCLI [id number] [place] [address] [place] MCV (RBC) [Entitic vol] 91.9 fL Normal 80.0-100.0 [facility] Comment on above: Order Comment: Speci men Type: BLOOD SPECIMENOrdering Facility: [facility] Address: [address] [place] [address] Performed By: #### 5 7021-8 ####[facility] [id number] [place] [address] [place] Monocytes (Bld) [#/Vol] 0.61 10*3/uL Normal <0.87 [facility] Comment on above: Order Comment: Speci men Type: BLOOD SPECIMENOrdering Facility: [facility] Address: [address] [place] [address] Performed By: #### 5 7021-8 ####[facility] [id number] [place] [address] [place] Monocytes/100 WBC (Bld) 9.9 % Normal [facility] Comment on above: Order Comment: Speci men Type: BLOOD SPECIMENOrdering Facility: [facility] Address: [address] [place] [address] Performed By: #### 5 7021-8 ####[facility] CLAY COUNTYA [id number] [place] [address] [place] Neutrophils (Bld) [#/Vol] 4.82 10*3/uL Normal 1.45-7.50 [facility] Comment on above: Order Comment: Speci men Type: BLOOD SPECIMENOrdering Facility: [facility] Address: [address] [place] [address] Performed By: #### 5 7021-8 ####[facility] CLAY COUNTYA [id number] [place] [address] [place] Neutrophils/100 WBC (Bld) 77.8 % Normal [facility] Comment on above: Order Comment: Speci men Type: BLOOD SPECIMENOrdering Facility: [facility] Address: [address] [place] [address] Performed By: #### 5 7021-8 ####[facility] ALISAOfeliaNCDEMETRIO [id number] [place] [address] [place] Nucleated RBC (Bld) [#/Vol] 10*3/uL Normal <0.01 [facility] Comment on above: Order Comment: Speci men Type: BLOOD SPECIMENOrdering Facility: [facility] Address: [address] [place] [address] Performed By: #### 5 7021-8 ####[facility]ITALIGGYCEN[facility] [id number] [place] [address] [place] Nucleated RBC/100 WBC (Bld) [Ratio] 0.0 /[address] [facility] Comment on above: Order Comment: Speci men Type: BLOOD SPECIMENOrdering Facility: [facility] Address: [address] [place] [address] Performed By: #### 5 7021-8 ####[facility] [id number] [place] [address] [place] Platelet mean volume (Bld) [Entitic vol] 9.2 fL Normal 9.0-12.7 [facility] Comment on above: Order Comment: Speci men Type: BLOOD SPECIMENOrdering Facility: [facility] Address: [address] [place] [address] Performed By: #### 5 7021-8 ####[facility]ITALNCLIA [id number] [place] [address] [place] Platelets (Bld) [#/Vol] 217 10*3/uL Normal 150-400 [facility] Comment on above: Order Comment: Speci men Type: BLOOD SPECIMENOrdering Facility: [facility] Address: [address] [place] [address] Performed By: #### 5 7021-8 ####[facility]OSPITALNCLIA [id number] [place] [address] [place] RBC (Bld) [#/Vol] 3.57 10*6/uL Low 3.90-5.20 [facility] Comment on above: Order Comment: Speci men Type: BLOOD SPECIMENOrdering Facility: [facility] Address: [address] [place] [address] Performed By: #### 5 7021-8 ####[facility]ITALNCLIA [id number] [place] [address] [place] WBC (Bld) [#/Vol] 6.19 10*3/uL Normal 3.70-11.00 [facility] Comment on above: Order Comment: Speci men Type: BLOOD SPECIMENOrdering Facility: [facility] Address: [address] [place] [address] Performed By: #### 5 7021-8 ####[facility]ITALNCLIA [id number] [place] [address] [place] CNOVSPon 08-12-[address] [facility] Cancer Ag125 SerPl-aCncon Cancer Ag 125 Qn 22 [arb'U]/mL Normal <39 [facility] Comment on above: Order Comment: Speci men Type: BLOOD SPECIMENOrdering Facility: [facility] Address: [address] [place] [address] Result Comment: CA 1 25 test methodology [...] (CA 125 II) [package insert V 1.0 Jamaican]. [facility], [place], [place] (July 2015) Performed By: #### 1 0334-1 ####[facility] MAIN LABCLIA [id number] [place] [address] [place] Comprehensive metabolic 2000 panelon 08-12-2025 Albumin [Mass/Vol] 4.2 g/dL Normal 3.9-4.9 [facility] Comment on above: Order Comment: Speci men Type: BLOOD SPECIMENOrdering Facility: [facility] Address: [address] [place] [address] Performed By: #### 2 4323-8 ####[facility] CENTERWNCLIA [id number] [place] [address] [place] ALP [Catalytic activity/Vol] 85 U/L Normal 34-123 [facility] Comment on above: Order Comment: Speci men Type: BLOOD SPECIMENOrdering Facility: [facility] Address: [address] [place] [address] Performed By: #### 2 4323-8 ####[facility]OSPITALNCLIA [id number] [place] [address] [place] ALT [Catalytic activity/Vol] 17 U/L Normal 7-38 [facility] Comment on above: Order Comment: Speci men Type: BLOOD SPECIMENOrdering Facility: [facility] Address: [address] [place] [address] Performed By: #### 2 4323-8 ####[facility] MILLTOWNCLIA [id number] [place] [address] [place] Anion gap [Moles/Vol] 10 mmol/L Normal 8-15 [facility] Comment on above: Order Comment: Speci men Type: BLOOD SPECIMENOrdering Facility: [facility] Address: [address] [place] [address] Performed By: #### 2 4323-8 ####[facility]OSPITALNCLIA [id number] [place] [address] [place] AST [Catalytic activity/Vol] 18 U/L Normal 13-35 [facility] Comment on above: Order Comment: Speci men Type: BLOOD SPECIMENOrdering Facility: [facility] Address: [address] [place] [address] Performed By: #### 2 4323-8 ####[facility]OSPITALNCLIA [id number] [place] [address] [place] Bilirubin [Mass/Vol] 0.2 mg/dL Normal 0.2-1.3 [facility] Comment on above: Order Comment: Speci men Type: BLOOD SPECIMENOrdering Facility: [facility] Address: [address] [place] [address] Performed By: #### 2 4323-8 ####[facility]OSPITALNCLIA [id number] [place] [address] [place] Calcium [Mass/Vol] 9.7 mg/dL Normal 8.5-10.2 [facility] Comment on above: Order Comment: Speci men Type: BLOOD SPECIMENOrdering Facility: [facility] Address: [address] [place] [address] Performed By: #### 2 4323-8 ####[facility]OSPITALNCLIA [id number] [place] [address] [place] Chloride [Moles/Vol] 106 mmol/L Normal 98-107 [facility] Comment on above: Order Comment: Speci men Type: BLOOD SPECIMENOrdering Facility: [facility] Address: [address] [place] [address] Performed By: #### 2 4323-8 ####[facility]OSPITALNCLIA [id number] [place] [address] [place] CO2 [Moles/Vol] 23 mmol/L Normal 22-30 [facility] Comment on above: Order Comment: Speci men Type: BLOOD SPECIMENOrdering Facility: [facility] Address: [address] [place] [address] Performed By: #### 2 4323-8 ####[facility] ALISAARAPAHONCBoo [id number] [place] [address] [place] Creatinine [Mass/Vol] 0.92 mg/dL Normal 0.58-0.96 [facility] Comment on above: Order Comment: Speci men Type: BLOOD SPECIMENOrdering Facility: [facility] Address: [address] [place] [address] Performed By: #### 2 4323-8 ####[facility]OSPITALNCCENTRAL VALLEY [facility] [id number] [place] [address] [place] eGFRcr SerPlBld CKD-EPI 2020 66 mL/min/1.73m??? Normal >=60 [facility] Comment on above: Order Comment: Speci men Type: BLOOD SPECIMENOrdering Facility: [facility] Address: [address] [place] [address] Result Comment: Ethel mated Glomerular Filtration Rate [...] actual GFR. Performed By: #### 2 4323-8 ####[facility]OSPITALNCLIA [id number] [place] [address] [place] Glucose [Mass/Vol] 74 mg/dL Normal 74-99 [facility] Comment on above: Order Comment: Speci men Type: BLOOD SPECIMENOrdering Facility: [facility] Address: [address] [place] [address] Result Comment: The [place] Diabetes Association (ADA) provides guidance for cutoff [...] Standards of Medical Care in Diabetes 2016, [place] [employer]. Diabetes Care. 2016.39(Suppl 1). Performed By: #### 2 4323-8 ####[facility] CENTERLIA [id number] [place] [address] [place] Potassium [Moles/Vol] 3.7 mmol/L Normal 3.7-5.1 [facility] Comment on above: Order Comment: Speci men Type: BLOOD SPECIMENOrdering Facility: [facility] Address: [address] [place] [address] Performed By: #### 2 4323-8 ####[facility] MED[facility] CENTERLIA [id number] [place] [address] [place] Protein [Mass/Vol] 6.8 g/dL Normal 6.3-8.0 [facility] Comment on above: Order Comment: Cheng cooley Type: BLOOD SPECIMENOrdering Facility: [facility] Address: [address] [place] [address] Performed By: #### 2 4323-8 ####[facility] MED[facility] CENTERLIA [id number] [place] [address] [place] Sodium [Moles/Vol] 139 mmol/L Normal 136-144 [facility] Comment on above: Order Comment: Bekai men Type: BLOOD SPECIMENOrdering Facility: [facility] Address: [address] [place] [place] [id number] Performed By: #### 2 4323-8 ####[facility] CENTERLIA [id number] [place] [address] [place] Urea nitrogen [Mass/Vol] 20 mg/dL Normal 7-21 [facility] Comment on above: Order Comment: Speci men Type: BLOOD SPECIMENOrdering Facility: [facility] Address: [address] [place] [address] Performed By: #### 2 4323-8 ####[facility] MILLTOWNCLIA [id number] [place] [address] [place] CNPNon 08-02-[address] [facility] CNPTOUTREACHon 07-29-[address] [facility] CNPNon 07-27-[address] [facility] CBC W Auto Differential pane l (Bld)on 07-25-2025 Basophils (Bld) [#/Vol] 0.03 10*3/uL Normal <0.11 [facility] Comment on above: Order Comment: Speci men Type: BLOOD SPECIMENOrdering Facility: [facility] Address: [address] [place] [address] Performed By: #### 5 7021-8 ####[facility] MILLTOWNCLIA [id number] [place] [address] [place] Basophils/100 WBC (Bld) 0.7 % Normal [facility] Comment on above: Order Comment: Speci men Type: BLOOD SPECIMENOrdering Facility: [facility] Address: [address] [place] [address] Performed By: #### 5 7021-8 ####[facility] MILLTOWNCLIA [id number] [place] [address] [place] Differential cell count method Nom (Bld) Auto Normal [facility] Comment on above: Order Comment: Speci men Type: BLOOD SPECIMENOrdering Facility: [facility] Address: [address] [place] [address] Performed By: #### 5 7021-8 ####[facility] MILLTOWNCLIA [id number] [place] [address] [place] Eosinophils (Bld) [#/Vol] 0.07 10*3/uL Normal <0.46 [facility] Comment on above: Order Comment: Speci men Type: BLOOD SPECIMENOrdering Facility: [facility] Address: [address] [place] [address] Performed By: #### 5 7021-8 ####[facility] [id number] [place] [address] [place] Eosinophils/100 WBC (Bld) 1.7 % Normal [facility] Comment on above: Order Comment: Speci men Type: BLOOD SPECIMENOrdering Facility: [facility] Address: [address] [place] [address] Performed By: #### 5 7021-8 ####[facility] HOSPITALNCLI [id number] [place] [address] [place] Erythrocyte distribution width (RBC) [Ratio] 17.2 % High 11.5-15.0 [facility] Comment on above: Order Comment: Speci men Type: BLOOD SPECIMENOrdering Facility: [facility] Address: [address] [place] [address] Performed By: #### 5 7021-8 ####[facility]OSPITALNCLIA [id number] [place] [address] [place] Hematocrit (Bld) [Volume fraction] 31.5 % Low 36.0-46.0 [facility] Comment on above: Order Comment: Speci men Type: BLOOD SPECIMENOrdering Facility: [facility] Address: [address] [place] [address] Performed By: #### 5 7021-8 ####[facility]OSPITALNCLIA [id number] [place] [address] [place] Hemoglobin (Bld) [Mass/Vol] 10.2 g/dL Low 11.5-15.5 [facility] Comment on above: Order Comment: Speci men Type: BLOOD SPECIMENOrdering Facility: [facility] Address: [address] [place] [address] Performed By: #### 5 7021-8 ####[facility] [id number] [place] [address] [place] Immature granulocytes (Bld) [#/Vol] 10*3/uL Normal <0.10 [facility] Comment on above: Order Comment: Speci men Type: BLOOD SPECIMENOrdering Facility: [facility] Address: [address] [place] [address] Performed By: #### 5 7021-8 ####[facility] [id number] [place] [address] [place] Immature granulocytes/100 WBC (Bld) 0.2 % Normal [facility] Comment on above: Order Comment: Speci men Type: BLOOD SPECIMENOrdering Facility: [facility] Address: [address] [place] [address] Performed By: #### 5 7021-8 ####[facility] [id number] [place] [address] [place] Lymphocytes (Bld) [#/Vol] 0.64 10*3/uL Low 1.00-4.00 [facility] Comment on above: Order Comment: Speci men Type: BLOOD SPECIMENOrdering Facility: [facility] Address: [address] [place] [address] Performed By: #### 5 7021-8 ####[facility] [id number] [place] [address] [place] Lymphocytes/100 WBC (Bld) 15.9 % Normal [facility] Comment on above: Order Comment: Speci men Type: BLOOD SPECIMENOrdering Facility: [facility] Address: [address] [place] [address] Performed By: #### 5 7021-8 ####[facility] MILLEDGARWNCLIA [id number] [place] [address] [place] MCH (RBC) [Entitic mass] 29.8 pg Normal 26.0-34.0 [facility] Comment on above: Order Comment: Speci men Type: BLOOD SPECIMENOrdering Facility: [facility] Address: [address] [place] [address] Performed By: #### 5 7021-8 ####[facility]OSPITALNCLIA [id number] [place] [address] [place] MCHC (RBC) [Mass/Vol] 32.4 g/dL Normal 30.5-36.0 [facility] Comment on above: Order Comment: Speci men Type: BLOOD SPECIMENOrdering Facility: [facility] Address: [address] [place] [address] Performed By: #### 5 7021-8 ####[facility]OSPITALNCLIA [id number] [place] [address] [place] MCV (RBC) [Entitic vol] 92.1 fL Normal 80.0-100.0 [facility] Comment on above: Order Comment: Speci men Type: BLOOD SPECIMENOrdering Facility: [facility] Address: [address] [place] [address] Performed By: #### 5 7021-8 ####[facility] MILLARAPAHONCLIA [id number] [place] [address] [place] Monocytes (Bld) [#/Vol] 0.38 10*3/uL Normal <0.87 [facility] Comment on above: Order Comment: Speci men Type: BLOOD SPECIMENOrdering Facility: [facility] Address: [address] [place] [address] Performed By: #### 5 7021-8 ####[facility] CENTERLIA [id number] [place] [address] [place] Monocytes/100 WBC (Bld) 9.4 % Normal [facility] Comment on above: Order Comment: Speci men Type: BLOOD SPECIMENOrdering Facility: [facility] Address: [address] [place] [address] Performed By: #### 5 7021-8 ####[facility] [id number] [place] [address] [place] Neutrophils (Bld) [#/Vol] 2.90 10*3/uL Normal 1.45-7.50 [facility] Comment on above: Order Comment: Speci men Type: BLOOD SPECIMENOrdering Facility: [facility] Address: [address] [place] [address] Performed By: #### 5 7021-8 ####[facility] [id number] [place] [address] [place] Neutrophils/100 WBC (Bld) 72.1 % Normal [facility] Comment on above: Order Comment: Speci men Type: BLOOD SPECIMENOrdering Facility: [facility] Address: [address] [place] [address] Performed By: #### 5 7021-8 ####[facility] [id number] [place] [address] [place] Nucleated RBC (Bld) [#/Vol] 10*3/uL Normal <0.01 [facility] Comment on above: Order Comment: Speci men Type: BLOOD SPECIMENOrdering Facility: [facility] Address: [address] [place] [address] Performed By: #### 5 7021-8 ####[facility] [id number] [place] [address] [place] Nucleated RBC/100 WBC (Bld) [Ratio] 0.0 /[address] [facility] Comment on above: Order Comment: Speci men Type: BLOOD SPECIMENOrdering Facility: [facility] Address: [address] [place] [address] Performed By: #### 5 7021-8 ####[facility] PATRICIO ALISAOfeliaNCDEMETRIO [id number] [place] [address] [place] Platelet mean volume (Bld) [Entitic vol] 9.1 fL Normal 9.0-12.7 [facility] Comment on above: Order Comment: Speci men Type: BLOOD SPECIMENOrdering Facility: [facility] Address: [address] [place] [address] Performed By: #### 5 7021-8 ####[facility] HOSPITALNCOPALA [id number] [place] [address] [place] Platelets (Bld) [#/Vol] 217 10*3/uL Normal 150-400 [facility] Comment on above: Order Comment: Speci men Type: BLOOD SPECIMENOrdering Facility: [facility] Address: [address] [place] [address] Performed By: #### 5 7021-8 ####[facility]PITALNCLIA [id number] [place] [address] [place] RBC (Bld) [#/Vol] 3.42 10*6/uL Low 3.90-5.20 [facility] Comment on above: Order Comment: Speci men Type: BLOOD SPECIMENOrdering Facility: [facility] Address: [address] [place] [address] Performed By: #### 5 7021-8 ####[facility]OSPITALNCLIA [id number] [place] [address] [place] WBC (Bld) [#/Vol] 4.03 10*3/uL Normal 3.70-11.00 [facility] Comment on above: Order Comment: Speci men Type: BLOOD SPECIMENOrdering Facility: [facility] Address: [facility] [place] [address] Performed By: #### 5 7021-8 ####[facility] [id number] [place] [address] [place] Cancer Ag125 SerPl-aCncon Cancer Ag 125 Qn 27 [arb'U]/mL Normal <39 [facility] Comment on above: Order Comment: Speci men Type: BLOOD SPECIMENOrdering Facility: [facility] Address: [address] [place] [address] Result Comment: CA 1 25 test methodology [...] (CA 125 II) [package insert V 1.0 Jamaican]. [facility], [place], [place] (July 2015) Performed By: #### 1 0334-1 ####[facility] MAIN LABCLIA [id number] [place] [address] [place] Comprehensive metabolic 2000 panelon 07-25-2025 Albumin [Mass/Vol] 4.3 g/dL Normal 3.9-4.9 [facility] Comment on above: Order Comment: Speci men Type: BLOOD SPECIMENOrdering Facility: [facility] Address: [address] [place] [address] Performed By: #### 2 4323-8 ####[facility] HOSPITALNCOPALA [id number] [place] [address] [place] ALP [Catalytic activity/Vol] 75 U/L Normal 34-123 [facility] Comment on above: Order Comment: Speci men Type: BLOOD SPECIMENOrdering Facility: [facility] Address: [address] [place] [address] Performed By: #### 2 4323-8 ####[facility] PATRICIO MILLTOWNCLIA [id number] [place] [address] [place] ALT [Catalytic activity/Vol] 12 U/L Normal 7-38 [facility] Comment on above: Order Comment: Speci men Type: BLOOD SPECIMENOrdering Facility: [facility] Address: [address] [place] [address] Performed By: #### 2 4323-8 ####[facility] MILLTOWNCLIA [id number] [place] [address] [place] Anion gap [Moles/Vol] 11 mmol/L Normal 8-15 [facility] Comment on above: Order Comment: Speci men Type: BLOOD SPECIMENOrdering Facility: [facility] Address: [address] [place] [address] Performed By: #### 2 4323-8 ####[facility] CENTERWNCLIA [id number] [place] [address] [place] AST [Catalytic activity/Vol] 14 U/L Normal 13-35 [facility] Comment on above: Order Comment: Speci men Type: BLOOD SPECIMENOrdering Facility: [facility] Address: [address] [place] [address] Performed By: #### 2 4323-8 ####[facility] VENICETOWNCLIA [id number] [place] [address] [place] Bilirubin [Mass/Vol] 0.3 mg/dL Normal 0.2-1.3 [facility] Comment on above: Order Comment: Speci men Type: BLOOD SPECIMENOrdering Facility: [facility] Address: [address] [place] [address] Performed By: #### 2 4323-8 ####[facility] MILLWNCLIA [id number] [place] [address] [place] Calcium [Mass/Vol] 9.8 mg/dL Normal 8.5-10.2 [facility] Comment on above: Order Comment: Speci men Type: BLOOD SPECIMENOrdering Facility: [facility] Address: [address] [place] [address] Performed By: #### 2 4323-8 ####[facility]OSPITALNCLIA [id number] [place] [address] [place] Chloride [Moles/Vol] 105 mmol/L Normal 98-107 [facility] Comment on above: Order Comment: Speci men Type: BLOOD SPECIMENOrdering Facility: [facility] Address: [address] [place] [address] Performed By: #### 2 4323-8 ####[facility]OSPITALNCLIA [id number] [place] [address] [place] CO2 [Moles/Vol] 22 mmol/L Normal 22-30 [facility] Comment on above: Order Comment: Speci men Type: BLOOD SPECIMENOrdering Facility: [facility] Address: [address] [place] [address] Performed By: #### 2 4323-8 ####[facility]OSPITALNCLIA [id number] [place] [address] [place] Creatinine [Mass/Vol] 0.95 mg/dL Normal 0.58-0.96 [facility] Comment on above: Order Comment: Speci men Type: BLOOD SPECIMENOrdering Facility: [facility] Address: [address] [place] [address] Performed By: #### 2 4323-8 ####[facility] HOSPITALNCA [id number] [place] [address] [place] eGFRcr SerPlBld CKD-EPI 2020 63 mL/min/1.73m??? Normal >=60 [facility] Comment on above: Order Comment: Speci men Type: BLOOD SPECIMENOrdering Facility: [facility] Address: [address] [place] [address] Result Comment: Ethel mated Glomerular Filtration Rate [...] actual GFR. Performed By: #### 2 4323-8 ####[facility] [id number] [place] [address] [place] Glucose [Mass/Vol] 92 mg/dL Normal 74-99 [facility] Comment on above: Order Comment: Speci yasir Type: BLOOD SPECIMENOrdering Facility: [facility] Address: [address] [place] [address] Result Comment: The [place] [employer] (ADA) provides guidance for cutoff [...] Standards of Medical Care in Diabetes 2016, [place] [employer]. Diabetes Care. 2016.39(Suppl 1). Performed By: #### 2 4323-8 ####[facility] CENTERLIA [id number] [place] [address] [place] Potassium [Moles/Vol] 4.0 mmol/L Normal 3.7-5.1 [facility] Comment on above: Order Comment: Cheng men Type: BLOOD SPECIMENOrdering Facility: [facility] Address: [address] [id number] Performed By: #### 2 4323-8 ####[facility] ALISAARAPAHONCLIA [id number] [place] [address] [place] Protein [Mass/Vol] 6.9 g/dL Normal 6.3-8.0 [facility] Comment on above: Order Comment: Speci men Type: BLOOD SPECIMENOrdering Facility: [facility] Address: [address] [place] [address] Performed By: #### 2 4323-8 ####[facility] CENTERLI [id number] [place] [address] [place] Sodium [Moles/Vol] 138 mmol/L Normal 136-144 [facility] Comment on above: Order Comment: Speci men Type: BLOOD SPECIMENOrdering Facility: [facility] Address: [address] [place] [address] Performed By: #### 2 4323-8 ####[facility] [id number] [place] [address] [place] Urea nitrogen [Mass/Vol] 21 mg/dL Normal 7-21 [facility] Comment on above: Order Comment: Speci men Type: BLOOD SPECIMENOrdering Facility: [facility] Address: [address] [place] [address] Performed By: #### 2 4323-8 ####[facility] CENTERLIA [id number] [place] [address] [place] CNOVSPon 07-15-[address] [facility] CNPNon 07-15-[address] [facility] CBC W Auto Differential pane l (Bld)on 07-13-2025 Basophils (Bld) [#/Vol] 0.05 10*3/uL Normal <0.11 [facility] Comment on above: Order Comment: Speci men Type: BLOOD SPECIMENOrdering Facility: [facility] Address: [address] [place] [address] Performed By: #### 5 7021-8 ####[facility] SUNDARWIGGYLIA [id number] [place] [address] [place] Basophils/100 WBC (Bld) 0.9 % Normal [facility] Comment on above: Order Comment: Speci men Type: BLOOD SPECIMENOrdering Facility: [facility] Address: [address] [place] [address] Performed By: #### 5 7021-8 ####[facility] ALISAARAPAHOIGGYLIA [id number] [place] [address] [place] Differential cell count method Nom (Bld) Auto Normal [facility] Comment on above: Order Comment: Speci men Type: BLOOD SPECIMENOrdering Facility: [facility] Address: [address] [place] [address] Performed By: #### 5 7021-8 ####[facility] HOSPITALIGGYOPALA [id number] [place] [address] [place] Eosinophils (Bld) [#/Vol] 0.08 10*3/uL Normal <0.46 [facility] Comment on above: Order Comment: Speci men Type: BLOOD SPECIMENOrdering Facility: [facility] Address: [address] [place] [address] Performed By: #### 5 7021-8 ####[facility]OSPITALIGGYOPALA [id number] [place] [address] [place] Eosinophils/100 WBC (Bld) 1.5 % Normal [facility] Comment on above: Order Comment: Speci men Type: BLOOD SPECIMENOrdering Facility: [facility] Address: [address] [place] [address] Performed By: #### 5 7021-8 ####[facility] CENTERLIA [id number] [place] [address] [place] Erythrocyte distribution width (RBC) [Ratio] 19.1 % High 11.5-15.0 [facility] Comment on above: Order Comment: Speci men Type: BLOOD SPECIMENOrdering Facility: [facility] Address: [address] [place] [address] Performed By: #### 5 7021-8 ####[facility]ITALNCCEN[facility] [id number] [place] [address] [place] Hematocrit (Bld) [Volume fraction] 30.9 % Low 36.0-46.0 [facility] Comment on above: Order Comment: Speci men Type: BLOOD SPECIMENOrdering Facility: [facility] Address: [address] [place] [address] Performed By: #### 5 7021-8 ####[facility]ITALNCCENTR[facility] [id number] [place] [address] [place] Hemoglobin (Bld) [Mass/Vol] 10.2 g/dL Low 11.5-15.5 [facility] Comment on above: Order Comment: Speci men Type: BLOOD SPECIMENOrdering Facility: [facility] Address: [address] [place] [address] Performed By: #### 5 7021-8 ####[facility]OSPITALNCLIA [id number] [place] [address] [place] Immature granulocytes (Bld) [#/Vol] 10*3/uL Normal <0.10 [facility] Comment on above: Order Comment: Speci men Type: BLOOD SPECIMENOrdering Facility: [facility] Address: [address] [place] [address] Performed By: #### 5 7021-8 ####[facility] HOSPITALNCA [id number] [place] [address] [place] Immature granulocytes/100 WBC (Bld) 0.2 % Normal [facility] Comment on above: Order Comment: Speci men Type: BLOOD SPECIMENOrdering Facility: [facility] Address: [address] [place] [address] Performed By: #### 5 7021-8 ####[facility] MILLTOWNCLIA [id number] [place] [address] [place] Lymphocytes (Bld) [#/Vol] 0.67 10*3/uL Low 1.00-4.00 [facility] Comment on above: Order Comment: Speci men Type: BLOOD SPECIMENOrdering Facility: [facility] Address: [address] [place] [address] Performed By: #### 5 7021-8 ####[facility] CENTERWNCLIA [id number] [place] [address] [place] Lymphocytes/100 WBC (Bld) 12.6 % Normal [facility] Comment on above: Order Comment: Speci men Type: BLOOD SPECIMENOrdering Facility: [facility] Address: [address] [place] [address] Performed By: #### 5 7021-8 ####[facility]OSPITALNCLIA [id number] [place] [address] [place] MCH (RBC) [Entitic mass] 30.4 pg Normal 26.0-34.0 [facility] Comment on above: Order Comment: Speci men Type: BLOOD SPECIMENOrdering Facility: [facility] Address: [address] [place] [address] Performed By: #### 5 7021-8 ####[facility] MILLARAPAHONCLIA [id number] [place] [address] [place] MCHC (RBC) [Mass/Vol] 33.0 g/dL Normal 30.5-36.0 [facility] Comment on above: Order Comment: Speci men Type: BLOOD SPECIMENOrdering Facility: [facility] Address: [address] [place] [address] Performed By: #### 5 7021-8 ####[facility]OSPITALNCLIA [id number] [place] [address] [place] MCV (RBC) [Entitic vol] 92.0 fL Normal 80.0-100.0 [facility] Comment on above: Order Comment: Speci men Type: BLOOD SPECIMENOrdering Facility: [facility] Address: [address] [place] [address] Performed By: #### 5 7021-8 ####[facility] CLAY COUNTYA [id number] [place] [address] [place] Monocytes (Bld) [#/Vol] 0.57 10*3/uL Normal <0.87 [facility] Comment on above: Order Comment: Speci men Type: BLOOD SPECIMENOrdering Facility: [facility] Address: [address] [place] [address] Performed By: #### 5 7021-8 ####[facility] CLAY COUNTYA [id number] [place] [address] [place] Monocytes/100 WBC (Bld) 10.7 % Normal [facility] Comment on above: Order Comment: Speci men Type: BLOOD SPECIMENOrdering Facility: [facility] Address: [address] [place] [address] Performed By: #### 5 7021-8 ####[facility] CENTERLIA [id number] [place] [address] [place] Neutrophils (Bld) [#/Vol] 3.93 10*3/uL Normal 1.45-7.50 [facility] Comment on above: Order Comment: Speci men Type: BLOOD SPECIMENOrdering Facility: [facility] Address: [address] [place] [address] Performed By: #### 5 7021-8 ####[facility]OSPITALNCLIA [id number] [place] [address] [place] Neutrophils/100 WBC (Bld) 74.1 % Normal [facility] Comment on above: Order Comment: Speci men Type: BLOOD SPECIMENOrdering Facility: [facility] Address: [address] [place] [address] Performed By: #### 5 7021-8 ####[facility] HOSPITALNCOPAL [id number] [place] [address] [place] Nucleated RBC (Bld) [#/Vol] 10*3/uL Normal <0.01 [facility] Comment on above: Order Comment: Speci men Type: BLOOD SPECIMENOrdering Facility: [facility] Address: [address] [place] [address] Performed By: #### 5 7021-8 ####[facility]OSPITALNCCENTRAL VAL[facility] [id number] [place] [address] [place] Nucleated RBC/100 WBC (Bld) [Ratio] 0.0 /[address] [facility] Comment on above: Order Comment: Speci men Type: BLOOD SPECIMENOrdering Facility: [facility] Address: [address] [place] [address] Performed By: #### 5 7021-8 ####[facility] HOSPITALNCLIA [id number] [place] [address] [place] Platelet mean volume (Bld) [Entitic vol] 8.8 fL Low 9.0-12.7 [facility] Comment on above: Order Comment: Speci men Type: BLOOD SPECIMENOrdering Facility: [facility] Address: [address] [place] [address] Performed By: #### 5 7021-8 ####[facility]OSPITALNCLIA [id number] [place] [address] [place] Platelets (Bld) [#/Vol] 231 10*3/uL Normal 150-400 [facility] Comment on above: Order Comment: Speci men Type: BLOOD SPECIMENOrdering Facility: [facility] Address: [address] [place] [address] Performed By: #### 5 7021-8 ####[facility] HOSPITALNCLIA [id number] [place] [address] [place] RBC (Bld) [#/Vol] 3.36 10*6/uL Low 3.90-5.20 [facility] Comment on above: Order Comment: Speci men Type: BLOOD SPECIMENOrdering Facility: [facility] Address: [address] [place] [address] Performed By: #### 5 7021-8 ####[facility] HOSPITALNCLIA [id number] [place] [address] [place] WBC (Bld) [#/Vol] 5.31 10*3/uL Normal 3.70-11.00 [facility] Comment on above: Order Comment: Speci men Type: BLOOD SPECIMENOrdering Facility: [facility] Address: [address] [place], [place] [address] [address] Performed By: #### 5 7021-8 ####[facility] HOSPITALNCLIA [id number] [address] OF [facility] SAL BAUTISTA ([id number]) 1950 F Date Time Provider Department 07/01/25 CAREY ELIAS FVLORENE During your visit today, we recorded the following information about you: Carey Elias APRN.CLAMP OPERATOR 07/01/2025 12:17 PM Signed Received message from patient regarding possible need for follow up with . Please let her know he can see her in the next few weeks for follow up if she would like to discuss treatment recommendations. Carey Elias APRN.Bee Vargas RN 07/01/2025 2:27 PM Signed Left a detailed VM and requested a return call if needed. Allergies As of Date: 07/01/2025 (No Known Allergies) Date Reviewed: 06/23/2025 Reviewed by: Liz Dubose LPN - Fully Assessed Prescriptions as of 07/01/2025 - folic acid 1 mg tablet Take 1 tablet by mouth once daily. - Mesalamine (LIALDA) 1.2 gram EC tablet Take 1,200 mg by mouth daily with breakfast. - niraparib (ZEJULA) 200 mg tablet Take 1 tablet (200mg) by mouth every Friday, , Friday and Friday. Do not take on Mondays, Wednesdays and Fridays. - ondansetron orally disintegrating (ZOFRAN ODT) 8 [...] as needed. Problem List As Of Date 07/01/2025 Noted Resolved Sebaceous cyst [L72.3] 07/05/2008 11/16/2015 [...] blood los*03/02/2025 Iron malabsorption (HCC) [K90.9] 03/02/2025 Megaloblastic anemia due to vitamin B12 deficie*06/14/2025 Encounter Status:Closed by BEE ANGLIN on 07/01/25 Normal [facility] CNPN Normal [facility] CBC W Auto Differential pane l (Bld)on 06-30-2025 Basophils (Bld) [#/Vol] 0.06 10*3/uL Normal <0.11 [facility] Comment on above: Order Comment: Speci men Type: BLOOD SPECIMENOrdering Facility: [facility] Address: [address] [place] [address] Performed By: #### 5 7021-8 ####[facility] [id number] [place] [address] [place] Basophils/100 WBC (Bld) 1.5 % Normal [facility] Comment on above: Order Comment: Speci men Type: BLOOD SPECIMENOrdering Facility: [facility] Address: [address] [place] [address] Performed By: #### 5 7021-8 ####[facility] CLAY COUNTYA [id number] [place] [address] [place] Differential cell count method Nom (Bld) Auto Normal [facility] Comment on above: Order Comment: Speci men Type: BLOOD SPECIMENOrdering Facility: [facility] Address: [address] [place] [address] Performed By: #### 5 7021-8 ####[facility] MILLARAPAHONCLIA [id number] [place] [address] [place] Eosinophils (Bld) [#/Vol] 0.13 10*3/uL Normal <0.46 [facility] Comment on above: Order Comment: Speci men Type: BLOOD SPECIMENOrdering Facility: [facility] Address: [address] [place] [address] Performed By: #### 5 7021-8 ####[facility] ALISAWNCLIA [id number] [place] [address] [place] Eosinophils/100 WBC (Bld) 3.3 % Normal [facility] Comment on above: Order Comment: Speci men Type: BLOOD SPECIMENOrdering Facility: [facility] Address: [address] [place] [address] Performed By: #### 5 7021-8 ####[facility] HOSPITALIGGYLIA [id number] [place] [address] [place] Erythrocyte distribution width (RBC) [Ratio] 21.8 % High 11.5-15.0 [facility] Comment on above: Order Comment: Speci men Type: BLOOD SPECIMENOrdering Facility: [facility] Address: [address] [place] [address] Performed By: #### 5 7021-8 ####[facility] CENTERLIA [id number] [place] [address] [place] Hematocrit (Bld) [Volume fraction] 29.5 % Low 36.0-46.0 [facility] Comment on above: Order Comment: Speci men Type: BLOOD SPECIMENOrdering Facility: [facility] Address: [address] [place] [address] Performed By: #### 5 7021-8 ####[facility]OSPITALIGGYLIA [id number] [place] [address] [place] Hemoglobin (Bld) [Mass/Vol] 9.6 g/dL Low 11.5-15.5 [facility] Comment on above: Order Comment: Speci men Type: BLOOD SPECIMENOrdering Facility: [facility] Address: [address] [place] [address] Performed By: #### 5 7021-8 ####[facility] HOSPITALNCLIA [id number] [place] [address] [place] Immature granulocytes (Bld) [#/Vol] 10*3/uL Normal <0.10 [facility] Comment on above: Order Comment: Speci men Type: BLOOD SPECIMENOrdering Facility: [facility] Address: [address] [place] [address] Performed By: #### 5 7021-8 ####[facility] CLAY COUNTYA [id number] [place] [address] [place] Immature granulocytes/100 WBC (Bld) 0.5 % Normal [facility] Comment on above: Order Comment: Speci men Type: BLOOD SPECIMENOrdering Facility: [facility] Address: [address] [place] [address] Performed By: #### 5 7021-8 ####[facility] [id number] [place] [address] [place] Lymphocytes (Bld) [#/Vol] 0.71 10*3/uL Low 1.00-4.00 [facility] Comment on above: Order Comment: Speci men Type: BLOOD SPECIMENOrdering Facility: [facility] Address: [address] [place] [address] Performed By: #### 5 7021-8 ####[facility] [id number] [place] [address] [place] Lymphocytes/100 WBC (Bld) 18.2 % Normal [facility] Comment on above: Order Comment: Speci men Type: BLOOD SPECIMENOrdering Facility: [facility] Address: [address] [place] [address] Performed By: #### 5 7021-8 ####[facility] [id number] [place] [address] [place] MCH (RBC) [Entitic mass] 29.6 pg Normal 26.0-34.0 [facility] Comment on above: Order Comment: Speci men Type: BLOOD SPECIMENOrdering Facility: [facility] Address: [address] [place] [address] Performed By: #### 5 7021-8 ####[facility] ALISAARAPAHOCALVIN [id number] [place] [address] [place] MCHC (RBC) [Mass/Vol] 32.5 g/dL Normal 30.5-36.0 [facility] Comment on above: Order Comment: Speci men Type: BLOOD SPECIMENOrdering Facility: [facility] Address: [address] [place] [address] Performed By: #### 5 7021-8 ####[facility]PITALNCCENTRAL [facility] [id number] [place] [address] [place] MCV (RBC) [Entitic vol] 91.0 fL Normal 80.0-100.0 [facility] Comment on above: Order Comment: Speci men Type: BLOOD SPECIMENOrdering Facility: [facility] Address: [address] [place] [address] Performed By: #### 5 7021-8 ####[facility] HOSPITALIGGYBoo [id number] [place] [address] [place] Monocytes (Bld) [#/Vol] 0.33 10*3/uL Normal <0.87 [facility] Comment on above: Order Comment: Speci men Type: BLOOD SPECIMENOrdering Facility: [facility] Address: [address] [place] [address] Performed By: #### 5 7021-8 ####[facility]OSPITALNCLIA [id number] [place] [address] [place] Monocytes/100 WBC (Bld) 8.4 % Normal [facility] Comment on above: Order Comment: Speci men Type: BLOOD SPECIMENOrdering Facility: [facility] Address: [address] [place] [address] Performed By: #### 5 7021-8 ####[facility] MILLWNCLIA [id number] [place] [address] [place] Neutrophils (Bld) [#/Vol] 2.66 10*3/uL Normal 1.45-7.50 [facility] Comment on above: Order Comment: Speci men Type: BLOOD SPECIMENOrdering Facility: [facility] Address: [address] [place] [address] Performed By: #### 5 7021-8 ####[facility] CENTERWMALIA [id number] [place] [address] [place] Neutrophils/100 WBC (Bld) 68.1 % Normal [facility] Comment on above: Order Comment: Speci men Type: BLOOD SPECIMENOrdering Facility: [facility] Address: [address] [place] [address] Performed By: #### 5 7021-8 ####[facility] [id number] [place] [address] [place] Nucleated RBC (Bld) [#/Vol] 10*3/uL Normal <0.01 [facility] Comment on above: Order Comment: Speci men Type: BLOOD SPECIMENOrdering Facility: [facility] Address: [address] [place] [address] Performed By: #### 5 7021-8 ####[facility] CENTERLIA [id number] [place] [address] [place] Nucleated RBC/100 WBC (Bld) [Ratio] 0.0 /[address] [facility] Comment on above: Order Comment: Speci men Type: BLOOD SPECIMENOrdering Facility: [facility] Address: [address] [place] [address] Performed By: #### 5 7021-8 ####[facility] HOSPITALNCLI [id number] [place] [address] [place] Platelet mean volume (Bld) [Entitic vol] 8.5 fL Low 9.0-12.7 [facility] Comment on above: Order Comment: Speci men Type: BLOOD SPECIMENOrdering Facility: [facility] Address: [address] [place] [address] Performed By: #### 5 7021-8 ####[facility]PITALNCCENTRAL [facility] [id number] [place] [address] [place] Platelets (Bld) [#/Vol] 233 10*3/uL Normal 150-400 [facility] Comment on above: Order Comment: Speci men Type: BLOOD SPECIMENOrdering Facility: [facility] Address: [address] [place] [address] Performed By: #### 5 7021-8 ####[facility]PITALNCCENTR[facility] [id number] [place] [address] [place] RBC (Bld) [#/Vol] 3.24 10*6/uL Low 3.90-5.20 [facility] Comment on above: Order Comment: Speci men Type: BLOOD SPECIMENOrdering Facility: [facility] Address: [address] [place] [address] Performed By: #### 5 7021-8 ####[facility] HOSPITALNCA [id number] [place] [address] [place] WBC (Bld) [#/Vol] 3.91 10*3/uL Normal 3.70-11.00 [facility] Comment on above: Order Comment: Speci men Type: BLOOD SPECIMENOrdering Facility: [facility] Address: [address] [place] [address] Performed By: #### 5 7021-8 ####[facility] HOSPITALNCLIA [id number] [place] [address] [place] Cancer Ag125 SerPl-aCncon Cancer Ag 125 Qn 20 [arb'U]/mL Normal <39 [facility] Comment on above: Order Comment: Speci men Type: BLOOD SPECIMENOrdering Facility: [facility] Address: [address] [place] [address] Result Comment: CA 1 25 test methodology [...] (CA 125 II) [package insert V 1.0 [place]ican]. [employer], [place], [place] (July 2015) Performed By: #### 1 0334-1 ####[facility] LABCLIA [id number] [place] [address] [place] Comprehensive metabolic 2000 panelon 06-30-2025 Albumin [Mass/Vol] 4.4 g/dL Normal 3.9-4.9 [facility] Comment on above: Order Comment: Speci men Type: BLOOD SPECIMENOrdering Facility: [facility] Address: [address] [place] [address] Performed By: #### 2 4323-8 ####[facility] [id number] [place] [address] [place] ALP [Catalytic activity/Vol] 68 U/L Normal 34-123 [facility] Comment on above: Order Comment: Speci men Type: BLOOD SPECIMENOrdering Facility: [facility] Address: [address] [place] [address] Performed By: #### 2 4323-8 ####[facility] [id number] [place] [address] [place] ALT [Catalytic activity/Vol] 11 U/L Normal 7-38 [facility] Comment on above: Order Comment: Speci men Type: BLOOD SPECIMENOrdering Facility: [facility] Address: [address] [place] [address] Performed By: #### 2 4323-8 ####[facility] PATRICIO MILLTOWNCLIA [id number] [place] [address] [place] Anion gap [Moles/Vol] 12 mmol/L Normal 8-15 [facility] Comment on above: Order Comment: Speci men Type: BLOOD SPECIMENOrdering Facility: [facility] Address: [address] [place] [address] Performed By: #### 2 4323-8 ####[facility] MILLTOWNCLIA [id number] [place] [address] [place] AST [Catalytic activity/Vol] 14 U/L Normal 13-35 [facility] Comment on above: Order Comment: Speci men Type: BLOOD SPECIMENOrdering Facility: [facility] Address: [address] [place] [address] Performed By: #### 2 4323-8 ####[facility] CENTERWNCLIA [id number] [place] [address] [place] Bilirubin [Mass/Vol] 0.3 mg/dL Normal 0.2-1.3 [facility] Comment on above: Order Comment: Speci men Type: BLOOD SPECIMENOrdering Facility: [facility] Address: [address] [place] [address] Performed By: #### 2 4323-8 ####[facility] MILLTOWNCLIA [id number] [place] [address] [place] Calcium [Mass/Vol] 9.5 mg/dL Normal 8.5-10.2 [facility] Comment on above: Order Comment: Speci men Type: BLOOD SPECIMENOrdering Facility: [facility] Address: [address] [place] [address] Performed By: #### 2 4323-8 ####[facility] MILLTOWNCLIA [id number] [place] [address] [place] Chloride [Moles/Vol] 105 mmol/L Normal 98-107 [facility] Comment on above: Order Comment: Speci men Type: BLOOD SPECIMENOrdering Facility: [facility] Address: [address] [place] [address] Performed By: #### 2 4323-8 ####[facility] [id number] [place] [address] [place] SARAH CO2 [Moles/Vol] 21 mmol/L Low 22-30 [facility] Comment on above: Order Comment: Speci men Type: BLOOD SPECIMENOrdering Facility: [facility] Address: [address] [place] [address] Performed By: #### 2 4323-8 ####[facility] [id number] [place] [address] [place] Creatinine [Mass/Vol] 0.91 mg/dL Normal 0.58-0.96 [facility] Comment on above: Order Comment: Speci men Type: BLOOD SPECIMENOrdering Facility: [facility] Address: [address] [place] [address] Performed By: #### 2 4323-8 ####[facility]ENTERLI [id number] [place] [address] [place] eGFRcr SerPlBld CKD-EPI 2020 67 mL/min/1.73m??? Normal >=60 [facility] Comment on above: Order Comment: Speci men Type: BLOOD SPECIMENOrdering Facility: [facility] Address: [address] [place] [address] Result Comment: Ethel mated Glomerular Filtration Rate [...] actual GFR. Performed By: #### 2 4323-8 ####[facility] ALISAWNCLIA [id number] [place] [address] [place] Glucose [Mass/Vol] 102 mg/dL High 74-99 [facility] Comment on above: Order Comment: Speci men Type: BLOOD SPECIMENOrdering Facility: [facility] Address: [address] [place] [address] Result Comment: The [place] [employer] (ADA) provides guidance for cutoff [...] Standards of Medical Care in Diabetes 2016, [place] [employer]. Diabetes Care. 2016.39(Suppl 1). Performed By: #### 2 4323-8 ####[facility]ITALNCLIA [id number] [place] [address] [place] Potassium [Moles/Vol] 3.8 mmol/L Normal 3.7-5.1 [facility] Comment on above: Order Comment: Speci men Type: BLOOD SPECIMENOrdering Facility: [facility] Address: [address] [place] [address] Performed By: #### 2 4323-8 ####[facility]ITALNCLIA [id number] [place] [address] [place] Protein [Mass/Vol] 6.7 g/dL Normal 6.3-8.0 [facility] Comment on above: Order Comment: Speci men Type: BLOOD SPECIMENOrdering Facility: [facility] Address: [address] [place] [address] Performed By: #### 2 4323-8 ####[facility] ALISAARAPAHOIGGYLIA [id number] [place] [address] [place] Sodium [Moles/Vol] 138 mmol/L Normal 136-144 [facility] Comment on above: Order Comment: Speci men Type: BLOOD SPECIMENOrdering Facility: [facility] Address: [address] [place] [address] Performed By: #### 2 4323-8 ####[facility]OSPITALKATERIN [id number] [place] [address] [place] Urea nitrogen [Mass/Vol] 14 mg/dL Normal 7-21 [facility] Comment on above: Order Comment: Speci men Type: BLOOD SPECIMENOrdering Facility: [facility] Address: [address] [place] [address] Performed By: #### 2 4323-8 ####[facility]OSPITALKATERINA [id number] [place] [address] [place] CNPTOUTREACHon 06-29-[address] [facility] CBC W Auto Differential pane l (Bld)on 06-23-2025 Basophils (Bld) [#/Vol] 0.07 10*3/uL Normal <0.11 [facility] Comment on above: Order Comment: Speci men Type: BLOOD SPECIMENOrdering Facility: [facility] Address: [address] [place] [address] Performed By: #### 5 7021-8 ####[facility] CLAY COUNTYA [id number] [place] [address] [place] Basophils/100 WBC (Bld) 1.7 % Normal [facility] Comment on above: Order Comment: Speci men Type: BLOOD SPECIMENOrdering Facility: [facility] Address: [address] [place] [address] Performed By: #### 5 7021-8 ####[facility]PITALNCLIA [id number] [place] [address] [place] Differential cell count method Nom (Bld) Auto Normal [facility] Comment on above: Order Comment: Speci men Type: BLOOD SPECIMENOrdering Facility: [facility] Address: [address] [place] [address] Performed By: #### 5 7021-8 ####[facility] [id number] [place] [address] [place] Eosinophils (Bld) [#/Vol] 0.10 10*3/uL Normal <0.46 [facility] Comment on above: Order Comment: Speci men Type: BLOOD SPECIMENOrdering Facility: [facility] Address: [address] [place] [address] Performed By: #### 5 7021-8 ####[facility] [id number] [place] [address] [place] Eosinophils/100 WBC (Bld) 2.5 % Normal [facility] Comment on above: Order Comment: Speci men Type: BLOOD SPECIMENOrdering Facility: [facility] Address: [address] [place] [address] Performed By: #### 5 7021-8 ####[facility] [id number] [place] [address] [place] Erythrocyte distribution width (RBC) [Ratio] 20.6 % High 11.5-15.0 [facility] Comment on above: Order Comment: Speci men Type: BLOOD SPECIMENOrdering Facility: [facility] Address: [address] [place] [address] Performed By: #### 5 7021-8 ####[facility]OSPITALNCLI [id number] [place] [address] [place] Hematocrit (Bld) [Volume fraction] 25.9 % Low 36.0-46.0 [facility] Comment on above: Order Comment: Speci men Type: BLOOD SPECIMENOrdering Facility: [facility] Address: [address] [place] [address] Performed By: #### 5 7021-8 ####[facility] [id number] [place] [address] [place] Hemoglobin (Bld) [Mass/Vol] 8.6 g/dL Low 11.5-15.5 [facility] Comment on above: Order Comment: Speci men Type: BLOOD SPECIMENOrdering Facility: [facility] Address: [address] [place] [address] Performed By: #### 5 7021-8 ####[facility] [id number] [place] [address] [place] Immature granulocytes (Bld) [#/Vol] 10*3/uL Normal <0.10 [facility] Comment on above: Order Comment: Speci men Type: BLOOD SPECIMENOrdering Facility: [facility] Address: [address] [place] [address] Performed By: #### 5 7021-8 ####[facility] [id number] [place] [address] [place] Immature granulocytes/100 WBC (Bld) 0.2 % Normal [facility] Comment on above: Order Comment: Speci men Type: BLOOD SPECIMENOrdering Facility: [facility] Address: [address] [place] [address] Performed By: #### 5 7021-8 ####[facility] [id number] [place] [address] [place] Lymphocytes (Bld) [#/Vol] 0.67 10*3/uL Low 1.00-4.00 [facility] Comment on above: Order Comment: Speci men Type: BLOOD SPECIMENOrdering Facility: [facility] Address: [address] [place] [address] Performed By: #### 5 7021-8 ####[facility]OSPITALCALVIN [id number] [place] [address] [place] Lymphocytes/100 WBC (Bld) 16.5 % Normal [facility] Comment on above: Order Comment: Speci men Type: BLOOD SPECIMENOrdering Facility: [facility] Address: [address] [place] [address] Performed By: #### 5 7021-8 ####[facility] [id number] [place] [address] [place] MCH (RBC) [Entitic mass] 29.5 pg Normal 26.0-34.0 [facility] Comment on above: Order Comment: Speci men Type: BLOOD SPECIMENOrdering Facility: [facility] Address: [address] [place] [address] Performed By: #### 5 7021-8 ####[facility]PITALNCCENTRAL [facility] [id number] [place] [address] [place] MCHC (RBC) [Mass/Vol] 33.2 g/dL Normal 30.5-36.0 [facility] Comment on above: Order Comment: Speci men Type: BLOOD SPECIMENOrdering Facility: [facility] Address: [address] [place] [address] Performed By: #### 5 7021-8 ####[facility]PITALNCCENTRAL [facility] [id number] [place] [address] [place] MCV (RBC) [Entitic vol] 88.7 fL Normal 80.0-100.0 [facility] Comment on above: Order Comment: Speci men Type: BLOOD SPECIMENOrdering Facility: [facility] Address: [address] [place] [address] Performed By: #### 5 7021-8 ####[facility] CENTERWNCLIA [id number] [place] [address] [place] Monocytes (Bld) [#/Vol] 0.40 10*3/uL Normal <0.87 [facility] Comment on above: Order Comment: Speci men Type: BLOOD SPECIMENOrdering Facility: [facility] Address: [address] [place] [address] Performed By: #### 5 7021-8 ####[facility] CENTERLIA [id number] [place] [address] [place] Monocytes/100 WBC (Bld) 9.9 % Normal [facility] Comment on above: Order Comment: Speci men Type: BLOOD SPECIMENOrdering Facility: [facility] Address: [address] [place] [address] Performed By: #### 5 7021-8 ####[facility] [id number] [place] [address] [place] Neutrophils (Bld) [#/Vol] 2.80 10*3/uL Normal 1.45-7.50 [facility] Comment on above: Order Comment: Speci men Type: BLOOD SPECIMENOrdering Facility: [facility] Address: [address] [place] [address] Performed By: #### 5 7021-8 ####[facility] CLAY COUNTYA [id number] [place] [address] [place] Neutrophils/100 WBC (Bld) 69.2 % Normal [facility] Comment on above: Order Comment: Speci men Type: BLOOD SPECIMENOrdering Facility: [facility] Address: [address] [place] [address] Performed By: #### 5 7021-8 ####[facility] CENTERLIA [id number] [place] [address] [place] Nucleated RBC (Bld) [#/Vol] 10*3/uL Normal <0.01 [facility] Comment on above: Order Comment: Speci men Type: BLOOD SPECIMENOrdering Facility: [facility] Address: [address] [place] [address] Performed By: #### 5 7021-8 ####[facility]PITALNCCENTRAL [facility] [id number] [place] [address] [place] Nucleated RBC/100 WBC (Bld) [Ratio] 0.0 /[address] [facility] Comment on above: Order Comment: Speci men Type: BLOOD SPECIMENOrdering Facility: [facility] Address: [address] [place] [address] Performed By: #### 5 7021-8 ####[facility] [id number] [place] [address] [place] Platelet mean volume (Bld) [Entitic vol] 8.6 fL Low 9.0-12.7 [facility] Comment on above: Order Comment: Speci men Type: BLOOD SPECIMENOrdering Facility: [facility] Address: [address] [place] [address] Performed By: #### 5 7021-8 ####[facility] [id number] [place] [address] [place] Platelets (Bld) [#/Vol] 245 10*3/uL Normal 150-400 [facility] Comment on above: Order Comment: Speci men Type: BLOOD SPECIMENOrdering Facility: [facility] Address: [address] [place] [address] Performed By: #### 5 7021-8 ####[facility] [id number] [place] [address] [place] RBC (Bld) [#/Vol] 2.92 10*6/uL Low 3.90-5.20 [facility] Comment on above: Order Comment: Speci men Type: BLOOD SPECIMENOrdering Facility: [facility] Address: [address] [place] [address] Performed By: #### 5 7021-8 ####[facility] ALISANEALA [id number] [place] [address] [place] WBC (Bld) [#/Vol] 4.05 10*3/uL Normal 3.70-11.00 [facility] Comment on above: Order Comment: Speci men Type: BLOOD SPECIMENOrdering Facility: [facility] Address: [address] [place] [address] Performed By: #### 5 7021-8 ####[facility]OSPITALCALVIN [id number] [place] [address] [place] ABD/PEL W IVCONon 025 CT ABD/PEL W IVCON Invalid Interpretation Code [facility] CT CHEST W IVCONon 5 CT CHEST W IVCON Normal [facility] CBC W Auto Differential pane l (Bld)on 06-16-2025 Basophils (Bld) [#/Vol] 0.06 10*3/uL Normal <0.11 [facility] Comment on above: Order Comment: Speci men Type: BLOOD SPECIMENOrdering Facility: [facility] Address: [address] [place] [address] Performed By: #### 5 7021-8 ####[facility] CENTERNEALA [id number] [place] [address] [place] Basophils/100 WBC (Bld) 1.6 % Normal [facility] Comment on above: Order Comment: Speci men Type: BLOOD SPECIMENOrdering Facility: [facility] Address: [address] [place] [address] Performed By: #### 5 7021-8 ####[facility]OSPITALNCLIA [id number] [place] [address] [place] Differential cell count method Nom (Bld) Auto Normal [facility] Comment on above: Order Comment: Speci men Type: BLOOD SPECIMENOrdering Facility: [facility] Address: [address] [place] [address] Performed By: #### 5 7021-8 ####[facility] [id number] [place] [address] [place] Eosinophils (Bld) [#/Vol] 0.09 10*3/uL Normal <0.46 [facility] Comment on above: Order Comment: Speci men Type: BLOOD SPECIMENOrdering Facility: [facility] Address: [address] [place] [address] Performed By: #### 5 7021-8 ####[facility] [id number] [place] [address] [place] Eosinophils/100 WBC (Bld) 2.3 % Normal [facility] Comment on above: Order Comment: Speci men Type: BLOOD SPECIMENOrdering Facility: [facility] Address: [address] [place] [address] Performed By: #### 5 7021-8 ####[facility] [id number] [place] [address] [place] Erythrocyte distribution width (RBC) [Ratio] 18.8 % High 11.5-15.0 [facility] Comment on above: Order Comment: Speci men Type: BLOOD SPECIMENOrdering Facility: [facility] Address: [address] [place] [address] Performed By: #### 5 7021-8 ####[facility] [id number] [place] [address] [place] Hematocrit (Bld) [Volume fraction] 26.9 % Low 36.0-46.0 [facility] Comment on above: Order Comment: Speci men Type: BLOOD SPECIMENOrdering Facility: [facility] Address: [address] [place] [address] Performed By: #### 5 7021-8 ####[facility] ALISAARAPAHONCLIA [id number] [place] [address] [place] Hemoglobin (Bld) [Mass/Vol] 9.0 g/dL Low 11.5-15.5 [facility] Comment on above: Order Comment: Speci men Type: BLOOD SPECIMENOrdering Facility: [facility] Address: [address] [place] [address] Performed By: #### 5 7021-8 ####[facility]PITALNCLIA [id number] [place] [address] [place] Immature granulocytes (Bld) [#/Vol] 10*3/uL Normal <0.10 [facility] Comment on above: Order Comment: Speci men Type: BLOOD SPECIMENOrdering Facility: [facility] Address: [address] [place] [address] Performed By: #### 5 7021-8 ####[facility] CENTERLIA [id number] [place] [address] [place] Immature granulocytes/100 WBC (Bld) 0.3 % Normal [facility] Comment on above: Order Comment: Speci men Type: BLOOD SPECIMENOrdering Facility: [facility] Address: [address] [place] [address] Performed By: #### 5 7021-8 ####[facility] CENTERLIA [id number] [place] [address] [place] Lymphocytes (Bld) [#/Vol] 0.76 10*3/uL Low 1.00-4.00 [facility] Comment on above: Order Comment: Speci men Type: BLOOD SPECIMENOrdering Facility: [facility] Address: [address] [place] [address] Performed By: #### 5 7021-8 ####[facility] CENTERLIA [id number] [place] [address] [place] Lymphocytes/100 WBC (Bld) 19.7 % Normal [facility] Comment on above: Order Comment: Speci men Type: BLOOD SPECIMENOrdering Facility: [facility] Address: [address] [place] [address] Performed By: #### 5 7021-8 ####[facility]PITALCALVIN [id number] [place] [address] [place] MCH (RBC) [Entitic mass] 28.9 pg Normal 26.0-34.0 [facility] Comment on above: Order Comment: Speci men Type: BLOOD SPECIMENOrdering Facility: [facility] Address: [address] [place] [address] Performed By: #### 5 7021-8 ####[facility]PITALIGGYCENTRAL VALLEY [facility] [id number] [place] [address] [place] MCHC (RBC) [Mass/Vol] 33.5 g/dL Normal 30.5-36.0 [facility] Comment on above: Order Comment: Speci men Type: BLOOD SPECIMENOrdering Facility: [facility] Address: [address] [place] [address] Performed By: #### 5 7021-8 ####[facility] CENTERDEMETRIO [id number] [place] [address] [place] MCV (RBC) [Entitic vol] 86.5 fL Normal 80.0-100.0 [facility] Comment on above: Order Comment: Speci men Type: BLOOD SPECIMENOrdering Facility: [facility] Address: [address] [place] [address] Performed By: #### 5 7021-8 ####[facility]OSPITALNCLI [id number] [place] [address] [place] Monocytes (Bld) [#/Vol] 0.36 10*3/uL Normal <0.87 [facility] Comment on above: Order Comment: Speci men Type: BLOOD SPECIMENOrdering Facility: [facility] Address: [address] [place] [address] Performed By: #### 5 7021-8 ####[facility] [id number] [place] [address] [place] Monocytes/100 WBC (Bld) 9.3 % Normal [facility] Comment on above: Order Comment: Speci men Type: BLOOD SPECIMENOrdering Facility: [facility] Address: [address] [place] [address] Performed By: #### 5 7021-8 ####[facility] [id number] [place] [address] [place] Neutrophils (Bld) [#/Vol] 2.58 10*3/uL Normal 1.45-7.50 [facility] Comment on above: Order Comment: Speci men Type: BLOOD SPECIMENOrdering Facility: [facility] Address: [address] [place] [address] Performed By: #### 5 7021-8 ####[facility] [id number] [place] [address] [place] Neutrophils/100 WBC (Bld) 66.8 % Normal [facility] Comment on above: Order Comment: Speci men Type: BLOOD SPECIMENOrdering Facility: [facility] Address: [address] [place] [address] Performed By: #### 5 7021-8 ####[facility] CLAY COUNTYA [id number] [place] [address] [place] Nucleated RBC (Bld) [#/Vol] 10*3/uL Normal <0.01 [facility] Comment on above: Order Comment: Speci men Type: BLOOD SPECIMENOrdering Facility: [facility] Address: [address] [place] [address] Performed By: #### 5 7021-8 ####[facility] ALISAWNCLIA [id number] [place] [address] [place] Nucleated RBC/100 WBC (Bld) [Ratio] 0.0 /[address] [facility] Comment on above: Order Comment: Speci men Type: BLOOD SPECIMENOrdering Facility: [facility] Address: [address] [place] [address] Performed By: #### 5 7021-8 ####[facility]OSPITALNCLIA [id number] [place] [address] [place] Platelet mean volume (Bld) [Entitic vol] 9.9 fL Normal 9.0-12.7 [facility] Comment on above: Order Comment: Speci men Type: BLOOD SPECIMENOrdering Facility: [facility] Address: [address] [place] [address] Performed By: #### 5 7021-8 ####[facility]OSPITALNCLIA [id number] [place] [address] [place] Platelets (Bld) [#/Vol] 214 10*3/uL Normal 150-400 [facility] Comment on above: Order Comment: Speci men Type: BLOOD SPECIMENOrdering Facility: [facility] Address: [address] [place] [address] Performed By: #### 5 7021-8 ####[facility]OSPITALNCLIA [id number] [place] [address] [place] RBC (Bld) [#/Vol] 3.11 10*6/uL Low 3.90-5.20 [facility] Comment on above: Order Comment: Speci men Type: BLOOD SPECIMENOrdering Facility: [facility] Address: [address] [place] [address] Performed By: #### 5 7021-8 ####[facility] CENTERLIA [id number] [place] [address] [place] WBC (Bld) [#/Vol] 3.86 10*3/uL Normal 3.70-11.00 [facility] Comment on above: Order Comment: Speci men Type: BLOOD SPECIMENOrdering Facility: [facility] Address: [address] [place] [address] Performed By: #### 5 7021-8 ####[facility]OSPITALKATERINA [id number] [place] [address] [place] BRCon 06-13-2025 RC Normal [facility] Comment on above: Result Comment: [id number] OP RC TRANSFUSED 06/14/25 1328 Performed By: #### B , BTS ####[facility] [id number] [place], [address] CBC W Auto Differential pane l (Bld)on 06-13-2025 Basophils (Bld) [#/Vol] 0.05 10*3/uL Normal <0.11 [facility] Comment on above: Order Comment: Speci men Type: BLOOD SPECIMENOrdering Facility: [facility] Address: [address] [place] [address] Performed By: #### 5 7021-8, 57162-4 ####[facility] CLAY COUNTYA [id number] [place] [address] [place] Basophils/100 WBC (Bld) 1.4 % Normal [facility] Comment on above: Order Comment: Speci men Type: BLOOD SPECIMENOrdering Facility: [facility] Address: [address] [place] [address] Performed By: #### 5 7021-8, 42998-5 ####[facility] HOSPITALIGGYLIA [id number] [place] [address] [place] Differential cell count method Nom (Bld) Auto Normal [facility] Comment on above: Order Comment: Speci men Type: BLOOD SPECIMENOrdering Facility: [facility] Address: [address] [place] [address] Performed By: #### 5 7021-8, 29757-8 ####[facility]OSPITALNCLIA [id number] [place] [address] [place] Eosinophils (Bld) [#/Vol] 0.07 10*3/uL Normal <0.46 [facility] Comment on above: Order Comment: Speci men Type: BLOOD SPECIMENOrdering Facility: [facility] Address: [address] [place] [address] Performed By: #### 5 7021-8, 68461-2 ####[facility]OSPITALNCCENTRAL VALLEY [facility] [id number] [place] [address] [place] Eosinophils/100 WBC (Bld) 1.9 % Normal [facility] Comment on above: Order Comment: Speci men Type: BLOOD SPECIMENOrdering Facility: [facility] Address: [address] [place] [address] Performed By: #### 5 7021-8, 56652-0 ####[facility]ITAL[facility]CL[facility] [id number] [place] [address] [place] Erythrocyte distribution width (RBC) [Ratio] 18.5 % High 11.5-15.0 [facility] Comment on above: Order Comment: Speci men Type: BLOOD SPECIMENOrdering Facility: [facility] Address: [address] [place] [address] Performed By: #### 5 7021-8, 28149-8 ####[facility] CENTERLIA [id number] [place] [address] [place] Hematocrit (Bld) [Volume fraction] 21.9 % Low 36.0-46.0 [facility] Comment on above: Order Comment: Speci men Type: BLOOD SPECIMENOrdering Facility: [facility] Address: [address] [place] [address] Performed By: #### 5 7021-8, 79555-6 ####[facility] ALISAARAPAHOCALVIN [id number] [place] [address] [place] Hemoglobin (Bld) [Mass/Vol] 7.3 g/dL Low 11.5-15.5 [facility] Comment on above: Order Comment: Speci men Type: BLOOD SPECIMENOrdering Facility: [facility] Address: [address] [place] [address] Performed By: #### 5 7021-8, 42110-1 ####[facility] HOSPITALIGGYBoo [id number] [place] [address] [place] Immature granulocytes (Bld) [#/Vol] 10*3/uL Normal <0.10 [facility] Comment on above: Order Comment: Speci men Type: BLOOD SPECIMENOrdering Facility: [facility] Address: [address] [place] [address] Performed By: #### 5 7021-8, 45289-0 ####[facility] HOSPITALIGGYA [id number] [place] [address] [place] Immature granulocytes/100 WBC (Bld) 0.0 % Normal [facility] Comment on above: Order Comment: Speci men Type: BLOOD SPECIMENOrdering Facility: [facility] Address: [address] [place] [address] Performed By: #### 5 7021-8, 65766-0 ####[facility]OSPITALNCLIA [id number] [place] [address] [place] Lymphocytes (Bld) [#/Vol] 0.87 10*3/uL Low 1.00-4.00 [facility] Comment on above: Order Comment: Speci men Type: BLOOD SPECIMENOrdering Facility: [facility] Address: [address] [place] [address] Performed By: #### 5 7021-8, 18396-5 ####[facility] ALISASANDRA [id number] [place] [address] [place] Lymphocytes/100 WBC (Bld) 24.2 % Normal [facility] Comment on above: Order Comment: Speci men Type: BLOOD SPECIMENOrdering Facility: [facility] Address: [address] [place] [address] Performed By: #### 5 7021-8, 02624-4 ####[facility] ALISAARAPAHOCALVIN [id number] [place] [address] [place] MCH (RBC) [Entitic mass] 29.7 pg Normal 26.0-34.0 [facility] Comment on above: Order Comment: Speci men Type: BLOOD SPECIMENOrdering Facility: [facility] Address: [address] [place] [address] Performed By: #### 5 7021-8, 35536-4 ####[facility] ALISAARAPAHOCALVIN [id number] [place] [address] [place] MCHC (RBC) [Mass/Vol] 33.3 g/dL Normal 30.5-36.0 [facility] Comment on above: Order Comment: Speci men Type: BLOOD SPECIMENOrdering Facility: [facility] Address: [address] [place] [address] Performed By: #### 5 7021-8, 61182-4 ####[facility]OSPITALNCLIA [id number] [place] [address] [place] MCV (RBC) [Entitic vol] 89.0 fL Normal 80.0-100.0 [facility] Comment on above: Order Comment: Speci men Type: BLOOD SPECIMENOrdering Facility: [facility] Address: [address] [place] [address] Performed By: #### 5 7021-8, 85008-6 ####[facility] MILLTOWNCLIA [id number] [place] [address] [place] Monocytes (Bld) [#/Vol] 0.33 10*3/uL Normal <0.87 [facility] Comment on above: Order Comment: Speci men Type: BLOOD SPECIMENOrdering Facility: [facility] Address: [address] [place] [address] Performed By: #### 5 7021-8, 47275-1 ####[facility] MED[facility] CENTERWMALIA [id number] [place] [address] [place] Monocytes/100 WBC (Bld) 9.2 % Normal [facility] Comment on above: Order Comment: Speci men Type: BLOOD SPECIMENOrdering Facility: [facility] Address: [address] [place] [address] Performed By: #### 5 7021-8, 85267-7 ####[facility] CENTERLIA [id number] [place] [address] [place] Neutrophils (Bld) [#/Vol] 2.27 10*3/uL Normal 1.45-7.50 [facility] Comment on above: Order Comment: Speci men Type: BLOOD SPECIMENOrdering Facility: [facility] Address: [address] [place] [address] Performed By: #### 5 7021-8, 62193-2 ####[facility] CENTERWNCLIA [id number] [place] [address] [place] Neutrophils/100 WBC (Bld) 63.3 % Normal [facility] Comment on above: Order Comment: Speci men Type: BLOOD SPECIMENOrdering Facility: [facility] Address: [address] [place] [address] Performed By: #### 5 7021-8, 97456-2 ####[facility]OSPITALNCLIA [id number] [place] [address] [place] Nucleated RBC (Bld) [#/Vol] 10*3/uL Normal <0.01 [facility] Comment on above: Order Comment: Speci men Type: BLOOD SPECIMENOrdering Facility: [facility] Address: [address] [place] [address] Performed By: #### 5 7021-8, 47662-1 ####[facility] [id number] [place] [address] [place] Nucleated RBC/100 WBC (Bld) [Ratio] 0.0 /[address] [facility] Comment on above: Order Comment: Speci men Type: BLOOD SPECIMENOrdering Facility: [facility] Address: [address] [place] [address] Performed By: #### 5 7021-8, 21706-1 ####[facility] [id number] [place] [address] [place] Platelet mean volume (Bld) [Entitic vol] 10.3 fL Normal 9.0-12.7 [facility] Comment on above: Order Comment: Speci men Type: BLOOD SPECIMENOrdering Facility: [facility] Address: [address] [place] [address] Performed By: #### 5 7021-8, 07305-2 ####[facility] [id number] [place] [address] [place] Platelets (Bld) [#/Vol] 136 10*3/uL Low 150-400 [facility] Comment on above: Order Comment: Speci men Type: BLOOD SPECIMENOrdering Facility: [facility] Address: [address] [place] [address] Performed By: #### 5 7021-8, 16249-0 ####[facility] CENTERLIA [id number] [place] [address] [place] RBC (Bld) [#/Vol] 2.46 10*6/uL Low 3.90-5.20 [facility] Comment on above: Order Comment: Speci men Type: BLOOD SPECIMENOrdering Facility: [facility] Address: [address] [place] [address] Performed By: #### 5 7021-8, 07655-7 ####[facility] [id number] [place] [address] [place] WBC (Bld) [#/Vol] 3.59 10*3/uL Low 3.70-11.00 [facility] Comment on above: Order Comment: Speci men Type: BLOOD SPECIMENOrdering Facility: [facility] Address: [address] [place] [address] Performed By: #### 5 7021-8, 81267-5 ####[facility] [id number] [place] [address] [place] CNPNon 06-13-[address] [facility] Ferritin SerPl-mCncon 2024 Ferritin [Mass/Vol] 291.0 ng/mL High 14.7-205.1 [facility] Comment on above: Order Comment: Speci men Type: BLOOD SPECIMENOrdering Facility: [facility] Address: [address] [place] [address] Performed By: #### 5 0190-8, 2276-4, 2132-9, 2284-8 ####[facility] LABCLIA [id number] [place] [address] [place] Folate SerPl-mCncon 06-13-20 25 Folate [Mass/Vol] ng/mL Normal >4.7 [facility] Comment on above: Order Comment: Speci men Type: BLOOD SPECIMENOrdering Facility: [facility] Address: [address] [place] [address] Result Comment: A re sult of > 20 ng/mL is not necessarily indicative of a pathologic or treatable condition: it reflects a limitation of the test methodology.Assay reference range: 4.8 to 24.2 ng/mL. Suitable for detection of folate deficiency.Reference:Folate III (Folate III) [package insert V 1.0 [place]ican]. [facility], [place], [place]: August 2015. Performed By: #### 5 0190-8, 6-4, 9, 2284-05 ####[facility] LABCLIA [id number] [place] [id number] [place] Iron and Iron binding capaci ty panelon 06-13-2025 Iron [Mass/Vol] 152 ug/dL Normal 41-186 [facility] Comment on above: Order Comment: Speci men Type: BLOOD SPECIMENOrdering Facility: [facility] Address: [address] [place] [address] Performed By: #### 5 0190-8, 2276-01, 2132-06, 2284-05 ####[facility] LABIA [id number] [place] [address] [place] Iron binding capacity [Mass/Vol] 354 ug/dL Normal 232-386 [facility] Comment on above: Order Comment: Speci men Type: BLOOD SPECIMENOrdering Facility: [facility] Address: [address] [place] [address] Performed By: #### 5 0190-8, 2276-01, 2132-06, 2284-05 ####[facility] LABIA [id number] [address] [place] Iron/TIBC [Molar ratio] 42.9 % Normal 15.0-57.0 [facility] Comment on above: Order Comment: Speci men Type: BLOOD SPECIMENOrdering Facility: [facility] Address: [address] [place] [address] Performed By: #### 5 0190-8, 2275-4, 2132-06, 2284-05 ####[facility] LABCLIA [id number] [facility] [id number] [place], [place] [address] [place] Retics #on 06-13-2025 Reticulocytes (Bld) [#/Vol] Normal [facility] Comment on above: Order Comment: Speci men Type: BLOOD SPECIMENOrdering Facility: [facility] Address: [address] [place] [address] Result Comment: Abso lute Value Below Analyzer Linearity. Performed By: #### 5 7021-8, 15523-8 ####[facility] [id number] [place] [address] [place] Reticulocytes (Bld) [#/Vol]o n 06-13-2025 Reticulocytes/100 RBC (Bld) % Low 0.4-2.0 [facility] Comment on above: Order Comment: Speci men Type: BLOOD SPECIMENOrdering Facility: [facility] Address: [address] [place] [address] Performed By: #### 5 7021-8, 72928-4 ####[facility] [id number] [place] [address] [place] Type AND Screenon 06-13-2025 Ab SCREEN GEL Negative Normal [facility] Comment on above: Order Comment: PRETR ANSFUSION HGB = 7.3 HCT = 21.9 PERFORMED AT [facility]06/14/25 @ 1230NYA Performed By: #### Charley DAHL, BTS ####[facility] [id number] [place] [facility] [address] Vit B12 SerPl-mCncon 025 Cobalamin (Vitamin B12) [Mass/Vol] 152 pg/mL Low 232-8207 [facility] Comment on above: Order Comment: Speci men Type: BLOOD SPECIMENOrdering Facility: [facility] Address: [address] [place] [address] Performed By: #### 5 0190-8, 2276-4, 2132-9, 2284-8 ####[facility] LABCLIA [id number] [place] [address] [place] CBC W Auto Differential pane l (Bld)on 06-09-2025 Basophils (Bld) [#/Vol] 0.04 10*3/uL Normal <0.11 [facility] Comment on above: Order Comment: Speci men Type: BLOOD SPECIMENOrdering Facility: [facility] Address: [address] [place] [address] Performed By: #### 5 7021-8 ####[facility] [id number] [place] [address] [place] Basophils/100 WBC (Bld) 1.1 % Normal [facility] Comment on above: Order Comment: Speci men Type: BLOOD SPECIMENOrdering Facility: [facility] Address: [address] [place] [address] Performed By: #### 5 7021-8 ####[facility] [id number] [place] [address] [place] Differential cell count method Nom (Bld) Auto Normal [facility] Comment on above: Order Comment: Speci men Type: BLOOD SPECIMENOrdering Facility: [facility] Address: [address] [place] [address] Performed By: #### 5 7021-8 ####[facility] [id number] [place] [address] [place] Eosinophils (Bld) [#/Vol] 0.09 10*3/uL Normal <0.46 [facility] Comment on above: Order Comment: Speci men Type: BLOOD SPECIMENOrdering Facility: [facility] Address: [address] [place] [address] Performed By: #### 5 7021-8 ####[facility] CLAY COUNTYA [id number] [place] [address] [place] Eosinophils/100 WBC (Bld) 2.5 % Normal [facility] Comment on above: Order Comment: Speci men Type: BLOOD SPECIMENOrdering Facility: [facility] Address: [address] [place] [address] Performed By: #### 5 7021-8 ####[facility]ITALNCCENTRAL [facility] [id number] [place] [address] [place] Erythrocyte distribution width (RBC) [Ratio] 18.6 % High 11.5-15.0 [facility] Comment on above: Order Comment: Speci men Type: BLOOD SPECIMENOrdering Facility: [facility] Address: [address] [place] [address] Performed By: #### 5 7021-8 ####[facility]PITALNCCENTRAL [facility] [id number] [place] [address] [place] Hematocrit (Bld) [Volume fraction] 22.8 % Low 36.0-46.0 [facility] Comment on above: Order Comment: Speci men Type: BLOOD SPECIMENOrdering Facility: [facility] Address: [address] [place] [address] Performed By: #### 5 7021-8 ####[facility] HOSPITALNCLI [id number] [place] [address] [place] Hemoglobin (Bld) [Mass/Vol] 7.7 g/dL Low 11.5-15.5 [facility] Comment on above: Order Comment: Speci men Type: BLOOD SPECIMENOrdering Facility: [facility] Address: [address] [place] [address] Performed By: #### 5 7021-8 ####[facility] [id number] [place] [address] [place] Immature granulocytes (Bld) [#/Vol] 10*3/uL Normal <0.10 [facility] Comment on above: Order Comment: Speci men Type: BLOOD SPECIMENOrdering Facility: [facility] Address: [address] [place] [address] Performed By: #### 5 7021-8 ####[facility] SUNDARWNCLIA [id number] [place] [address] [place] [facility] Immature granulocytes/100 WBC (Bld) 0.3 % Normal [facility] Comment on above: Order Comment: Speci men Type: BLOOD SPECIMENOrdering Facility: [facility] Address: [address] [place] [address] Performed By: #### 5 7021-8 ####[facility]PITALNCLIA [id number] [place] [address] [place] Lymphocytes (Bld) [#/Vol] 0.98 10*3/uL Low 1.00-4.00 [facility] Comment on above: Order Comment: Speci men Type: BLOOD SPECIMENOrdering Facility: [facility] Address: [address] [place] [address] Performed By: #### 5 7021-8 ####[facility]OSPITALNCLIA [id number] [place] [address] [place] Lymphocytes/100 WBC (Bld) 27.1 % Normal [facility] Comment on above: Order Comment: Speci men Type: BLOOD SPECIMENOrdering Facility: [facility] Address: [address] [place] [address] Performed By: #### 5 7021-8 ####[facility]PITALNCLIA [id number] [place] [address] [place] MCH (RBC) [Entitic mass] 29.4 pg Normal 26.0-34.0 [facility] Comment on above: Order Comment: Speci men Type: BLOOD SPECIMENOrdering Facility: [facility] Address: [address] [place] [address] Performed By: #### 5 7021-8 ####[facility]OSPITALNCLIA [id number] [place] [address] [place] MCHC (RBC) [Mass/Vol] 33.8 g/dL Normal 30.5-36.0 [facility] Comment on above: Order Comment: Speci men Type: BLOOD SPECIMENOrdering Facility: [facility] Address: [address] [place] [address] Performed By: #### 5 7021-8 ####[facility] [id number] [place] [address] [place] MCV (RBC) [Entitic vol] 87.0 fL Normal 80.0-100.0 [facility] Comment on above: Order Comment: Speci men Type: BLOOD SPECIMENOrdering Facility: [facility] Address: [address] [place] [address] Performed By: #### 5 7021-8 ####[facility] [id number] [place] [address] [place] Monocytes (Bld) [#/Vol] 0.46 10*3/uL Normal <0.87 [facility] Comment on above: Order Comment: Speci men Type: BLOOD SPECIMENOrdering Facility: [facility] Address: [address] [place] [address] Performed By: #### 5 7021-8 ####[facility] [id number] [place] [address] [place] Monocytes/100 WBC (Bld) 12.7 % Normal [facility] Comment on above: Order Comment: Speci men Type: BLOOD SPECIMENOrdering Facility: [facility] Address: [address] [place] [address] Performed By: #### 5 7021-8 ####[facility] CENTERLI [id number] [place] [address] [place] Neutrophils (Bld) [#/Vol] 2.03 10*3/uL Normal 1.45-7.50 [facility] Comment on above: Order Comment: Speci men Type: BLOOD SPECIMENOrdering Facility: [facility] Address: [address] [place] [address] Performed By: #### 5 7021-8 ####[facility] [id number] [place] [address] [place] Neutrophils/100 WBC (Bld) 56.3 % Normal [facility] Comment on above: Order Comment: Speci men Type: BLOOD SPECIMENOrdering Facility: [facility] Address: [address] [place] [address] Performed By: #### 5 7021-8 ####[facility] [id number] [place] [address] [place] Nucleated RBC (Bld) [#/Vol] 10*3/uL Normal <0.01 [facility] Comment on above: Order Comment: Speci men Type: BLOOD SPECIMENOrdering Facility: [facility] Address: [address] [place] [address] Performed By: #### 5 7021-8 ####[facility] [id number] [place] [address] [place] Nucleated RBC/100 WBC (Bld) [Ratio] 0.0 /[address] [facility] Comment on above: Order Comment: Speci men Type: BLOOD SPECIMENOrdering Facility: [facility] Address: [address] [place] [address] Performed By: #### 5 7021-8 ####[facility]ITALNCCENTR[facility] [id number] [place] [address] [place] Platelet mean volume (Bld) [Entitic vol] 9.5 fL Normal 9.0-12.7 [facility] Comment on above: Order Comment: Speci men Type: BLOOD SPECIMENOrdering Facility: [facility] Address: [address] [place] [address] Performed By: #### 5 7021-8 ####[facility] ALISAOfeliaNCLIA [id number] [place] [address] [place] Platelets (Bld) [#/Vol] 72 10*3/uL Low 150-400 [facility] Comment on above: Order Comment: Speci men Type: BLOOD SPECIMENOrdering Facility: [facility] Address: [address] [place] [address] Result Comment: No c lot detected. Performed By: #### 5 7021-8 ####[facility]OSPITALIGGYA [id number] [place] [address] [place] RBC (Bld) [#/Vol] 2.62 10*6/uL Low 3.90-5.20 [facility] Comment on above: Order Comment: Speci men Type: BLOOD SPECIMENOrdering Facility: [facility] Address: [address] [place] [address] Performed By: #### 5 7021-8 ####[facility]ITALNCLIA [id number] [place] [address] [place] WBC (Bld) [#/Vol] 3.61 10*3/uL Low 3.70-11.00 [facility] Comment on above: Order Comment: Speci men Type: BLOOD SPECIMENOrdering Facility: [facility] Address: [address] [place] [address] Performed By: #### 5 7021-8 ####[facility]ITALNCLIA [id number] [place] [address] [place] CNPNon 06-09-[address] [facility] CNPNon 06-02-[address] [facility] CBC W Auto Differential pane l (Bld)on 06-01-2025 Basophils (Bld) [#/Vol] 0.05 10*3/uL Normal <0.11 [facility] Comment on above: Order Comment: Speci men Type: BLOOD SPECIMENOrdering Facility: [facility] Address: [address] [place] [address] Performed By: #### 5 7021-8 ####[facility] ALISAARAPAHONCLIA [id number] [place] [address] [place] Basophils/100 WBC (Bld) 1.1 % Normal [facility] Comment on above: Order Comment: Speci men Type: BLOOD SPECIMENOrdering Facility: [facility] Address: [address] [place] [address] Performed By: #### 5 7021-8 ####[facility] CENTERLIA [id number] [place] [address] [place] Differential cell count method Nom (Bld) Auto Normal [facility] Comment on above: Order Comment: Speci men Type: BLOOD SPECIMENOrdering Facility: [facility] Address: [address] [place] [address] Performed By: #### 5 7021-8 ####[facility] CLAY COUNTYA [id number] [place] [address] [place] Eosinophils (Bld) [#/Vol] 0.07 10*3/uL Normal <0.46 [facility] Comment on above: Order Comment: Speci men Type: BLOOD SPECIMENOrdering Facility: [facility] Address: [address] [place] [address] Performed By: #### 5 7021-8 ####[facility]ITALNCLIA [id number] [place] [address] [place] Eosinophils/100 WBC (Bld) 1.6 % Normal [facility] Comment on above: Order Comment: Speci men Type: BLOOD SPECIMENOrdering Facility: [facility] Address: [address] [place] [address] Performed By: #### 5 7021-8 ####[facility] ALISAJULIUSLIA [id number] [place] [address] [place] Erythrocyte distribution width (RBC) [Ratio] 18.9 % High 11.5-15.0 [facility] Comment on above: Order Comment: Speci men Type: BLOOD SPECIMENOrdering Facility: [facility] Address: [address] [place] [address] Performed By: #### 5 7021-8 ####[facility]PITALIGGYLIA [id number] [place] [address] [place] Hematocrit (Bld) [Volume fraction] 27.7 % Low 36.0-46.0 [facility] Comment on above: Order Comment: Speci men Type: BLOOD SPECIMENOrdering Facility: [facility] Address: [address] [place] [address] Performed By: #### 5 7021-8 ####[facility] CENTERDEMETRIO [id number] [place] [address] [place] Hemoglobin (Bld) [Mass/Vol] 9.2 g/dL Low 11.5-15.5 [facility] Comment on above: Order Comment: Speci men Type: BLOOD SPECIMENOrdering Facility: [facility] Address: [address] [place] [address] Performed By: #### 5 7021-8 ####[facility]ITALIGGYLIA [id number] [place] [address] [place] Immature granulocytes (Bld) [#/Vol] 10*3/uL Normal <0.10 [facility] Comment on above: Order Comment: Speci men Type: BLOOD SPECIMENOrdering Facility: [facility] Address: [address] [place] [address] Performed By: #### 5 7021-8 ####[facility]ITALNCLIA [id number] [place] [place] [address] [place] Immature granulocytes/100 WBC (Bld) 0.2 % Normal [facility] Comment on above: Order Comment: Speci men Type: BLOOD SPECIMENOrdering Facility: [facility] Address: [address] [place] [address] Performed By: #### 5 7021-8 ####[facility]ITALNCLIA [id number] [place] [address] [place] Lymphocytes (Bld) [#/Vol] 0.93 10*3/uL Low 1.00-4.00 [facility] Comment on above: Order Comment: Speci men Type: BLOOD SPECIMENOrdering Facility: [facility] Address: [address] [place] [address] Performed By: #### 5 7021-8 ####[facility] [id number] [place] [address] [place] Lymphocytes/100 WBC (Bld) 21.2 % Normal [facility] Comment on above: Order Comment: Speci men Type: BLOOD SPECIMENOrdering Facility: [facility] Address: [address] [place] [address] Performed By: #### 5 7021-8 ####[facility]OSPITALNCLI [id number] [place] [address] [place] MCH (RBC) [Entitic mass] 29.6 pg Normal 26.0-34.0 [facility] Comment on above: Order Comment: Speci men Type: BLOOD SPECIMENOrdering Facility: [facility] Address: [address] [place], [place] [address] Performed By: #### 5 7021-8 ####[facility]PITALNCLI [id number] [place] [address] [place] MCHC (RBC) [Mass/Vol] 33.2 g/dL Normal 30.5-36.0 [facility] Comment on above: Order Comment: Speci men Type: BLOOD SPECIMENOrdering Facility: [facility] Address: [address] [place] [address] Performed By: #### 5 7021-8 ####[facility]OSPITALKATERIN [id number] [place] [address] [place] MCV (RBC) [Entitic vol] 89.1 fL Normal 80.0-100.0 [facility] Comment on above: Order Comment: Speci men Type: BLOOD SPECIMENOrdering Facility: [facility] Address: [address] [place] [address] Performed By: #### 5 7021-8 ####[facility]PITALNCCENTR[facility] [id number] [place] [address] [place] Monocytes (Bld) [#/Vol] 0.25 10*3/uL Normal <0.87 [facility] Comment on above: Order Comment: Speci men Type: BLOOD SPECIMENOrdering Facility: [facility] Address: [address] [place] [address] Performed By: #### 5 7021-8 ####[facility] CLAY COUNTYA [id number] [place] [address] [place] Monocytes/100 WBC (Bld) 5.7 % Normal [facility] Comment on above: Order Comment: Speci men Type: BLOOD SPECIMENOrdering Facility: [facility] Address: [address] [place] [address] Performed By: #### 5 7021-8 ####[facility] [id number] [place] [address] [place] Neutrophils (Bld) [#/Vol] 3.08 10*3/uL Normal 1.45-7.50 [facility] Comment on above: Order Comment: Speci men Type: BLOOD SPECIMENOrdering Facility: [facility] Address: [address] [place] [address] Performed By: #### 5 7021-8 ####[facility] ALISAARAPAHOIGGYLIA [id number] [place] [address] [place] Neutrophils/100 WBC (Bld) 70.2 % Normal [facility] Comment on above: Order Comment: Speci men Type: BLOOD SPECIMENOrdering Facility: [facility] Address: [address] [place] [address] Performed By: #### 5 7021-8 ####[facility] [id number] [place] [address] [place] Nucleated RBC (Bld) [#/Vol] 10*3/uL Normal <0.01 [facility] Comment on above: Order Comment: Speci men Type: BLOOD SPECIMENOrdering Facility: [facility] Address: [address] [place] [address] Performed By: #### 5 7021-8 ####[facility] [id number] [place] [address] [place] Nucleated RBC/100 WBC (Bld) [Ratio] 0.0 /[address] [facility] Comment on above: Order Comment: Speci men Type: BLOOD SPECIMENOrdering Facility: [facility] Address: [address] [place] [address] Performed By: #### 5 7021-8 ####[facility] CENTEROPAL [id number] [place] [address] [place] Platelet mean volume (Bld) [Entitic vol] 10.1 fL Normal 9.0-12.7 [facility] Comment on above: Order Comment: Speci men Type: BLOOD SPECIMENOrdering Facility: [facility] Address: [address] [place] [address] Performed By: #### 5 7021-8 ####[facility]OSPITALNCLIA [id number] [place] [address] [place] Platelets (Bld) [#/Vol] 41 10*3/uL Low 150-400 [facility] Comment on above: Order Comment: Speci men Type: BLOOD SPECIMENOrdering Facility: [facility] Address: [address] [place] [address] Result Comment: No c lot detected. Performed By: #### 5 7021-8 ####[facility] CLAY COUNTYA [id number] [place] [address] [place] RBC (Bld) [#/Vol] 3.11 10*6/uL Low 3.90-5.20 [facility] Comment on above: Order Comment: Speci men Type: BLOOD SPECIMENOrdering Facility: [facility] Address: [address] [place] [address] Performed By: #### 5 7021-8 ####[facility] [id number] [place] [address] [place] WBC (Bld) [#/Vol] 4.39 10*3/uL Normal 3.70-11.00 [facility] Comment on above: Order Comment: Speci men Type: BLOOD SPECIMENOrdering Facility: [facility] Address: [address] [place] [address] Performed By: #### 5 7021-8 ####[facility]OSPITALNCLIA [id number] [place] [address] [place] CNOVSPon 06-01-[address] [facility] Cancer Ag125 SerPl-aCncon Cancer Ag 125 Qn 16 [arb'U]/mL Normal <39 [facility] Comment on above: Order Comment: Speci men Type: BLOOD SPECIMENOrdering Facility: [facility] Address: [address] [place] [address] Result Comment: CA 1 25 test methodology [...] (CA 125 II) [package insert V 1.0 Jamaican]. [facility] [employer], [place], [place] (July 2015) Performed By: #### 1 0334-1 ####[facility] LABCLIA [id number] [place] [address] [place] [facility] Comprehensive metabolic 2000 panelon 06-01-2025 Albumin [Mass/Vol] 4.8 g/dL Normal 3.9-4.9 [facility] Comment on above: Order Comment: Speci men Type: BLOOD SPECIMENOrdering Facility: [facility] Address: [address] [place] [address] Performed By: #### 2 4323-8 ####[facility] CENTERWMALIA [id number] [place] [address] [place] ALP [Catalytic activity/Vol] 81 U/L Normal 34-123 [facility] Comment on above: Order Comment: Speci men Type: BLOOD SPECIMENOrdering Facility: [facility] Address: [address] [place] [address] Performed By: #### 2 4323-8 ####[facility] MED[facility] CENTERLIA [id number] [place] [address] [place] ALT [Catalytic activity/Vol] 13 U/L Normal 7-38 [facility] Comment on above: Order Comment: Speci men Type: BLOOD SPECIMENOrdering Facility: [facility] Address: [address] [place] [address] Performed By: #### 2 4323-8 ####[facility] MED[facility] CENTERWNCLIA [id number] [place] [address] [place] Anion gap [Moles/Vol] 14 mmol/L Normal 8-15 [facility] Comment on above: Order Comment: Speci men Type: BLOOD SPECIMENOrdering Facility: [facility] Address: [address] [place] [address] Performed By: #### 2 4323-8 ####[facility] LUIGI [id number] [place] [address] [place] AST [Catalytic activity/Vol] 15 U/L Normal 13-35 [facility] Comment on above: Order Comment: Speci men Type: BLOOD SPECIMENOrdering Facility: [facility] Address: [address] [place] [address] Performed By: #### 2 4323-8 ####[facility] ALISAOfeliaNCOPALA [id number] [place] [address] [place] Bilirubin [Mass/Vol] 0.2 mg/dL Normal 0.2-1.3 [facility] Comment on above: Order Comment: Speci men Type: BLOOD SPECIMENOrdering Facility: [facility] Address: [address] [place] [address] Performed By: #### 2 4323-8 ####[facility] HOSPITALNCLIA [id number] [place] [address] [place] Calcium [Mass/Vol] 9.7 mg/dL Normal 8.5-10.2 [facility] Comment on above: Order Comment: Speci men Type: BLOOD SPECIMENOrdering Facility: [facility] Address: [address] [place] [address] Performed By: #### 2 4323-8 ####[facility]OSPITALNCLIA [id number] [place] [address] [place] Chloride [Moles/Vol] 105 mmol/L Normal 98-107 [facility] Comment on above: Order Comment: Speci men Type: BLOOD SPECIMENOrdering Facility: [facility] Address: [address] [place] [address] Performed By: #### 2 4323-8 ####[facility] MILLTOWNCLIA [id number] [place] [address] [place] CO2 [Moles/Vol] 22 mmol/L Normal 22-30 [facility] Comment on above: Order Comment: Speci men Type: BLOOD SPECIMENOrdering Facility: [facility] Address: [address] [place] [address] Performed By: #### 2 4323-8 ####[facility] CENTERWNCLIA [id number] [place] [address] [place] Creatinine [Mass/Vol] 1.03 mg/dL High 0.58-0.96 [facility] Comment on above: Order Comment: Speci men Type: BLOOD SPECIMENOrdering Facility: [facility] Address: [address] [place] [address] Performed By: #### 2 4323-8 ####[facility]OSPITALNCLIA [id number] [place] [address] [place] eGFRcr SerPlBld CKD-EPI 2020 58 mL/min/1.73m??? Low >=60 [facility] Comment on above: Order Comment: Speci men Type: BLOOD SPECIMENOrdering Facility: [facility] Address: [address] [place] [address] Result Comment: Ethel mated Glomerular Filtration Rate [...] actual GFR. Performed By: #### 2 4323-8 ####[facility] ALISAWNCLIA [id number] [place] [address] [place] Glucose [Mass/Vol] 75 mg/dL Normal 74-99 [facility] Comment on above: Order Comment: Speci men Type: BLOOD SPECIMENOrdering Facility: [facility] Address: [address] [place], [place] [address] Result Comment: The [place] [employer] (ADA) provides guidance for cutoff [...] Standards of Medical Care in Diabetes 2016, [place] [employer]. Diabetes Care. 2016.39(Suppl 1). Performed By: #### 2 4323-8 ####[facility] [id number] [place] [address] [place] Potassium [Moles/Vol] 3.6 mmol/L Low 3.7-5.1 [facility] Comment on above: Order Comment: Cheng cooley Type: BLOOD SPECIMENOrdering Facility: [facility] Address: [address] [place] [address] Performed By: #### 2 4323-8 ####[facility] CENTERLI [id number] [place] [address] [place] Protein [Mass/Vol] 7.3 g/dL Normal 6.3-8.0 [facility] Comment on above: Order Comment: Speci men Type: BLOOD SPECIMENOrdering Facility: [facility] Address: [address] [place], [place] [address] Performed By: #### 2 4323-8 ####[facility] CENTERLI [id number] [place] [address] [place] Sodium [Moles/Vol] 141 mmol/L Normal 136-144 [facility] Comment on above: Order Comment: Speci men Type: BLOOD SPECIMENOrdering Facility: [facility] Address: [address] [place] [address] Performed By: #### 2 4323-8 ####[facility] ALISAOfeliaKATERINA [id number] [place] [address] [place] Urea nitrogen [Mass/Vol] 21 mg/dL Normal 7-21 [facility] Comment on above: Order Comment: Speci men Type: BLOOD SPECIMENOrdering Facility: [facility] Address: [address] [place] [address] Performed By: #### 2 4323-8 ####[facility]OSPITALNCLIA [id number] [place] [address] [place] CNPTOUTREACHon 05-30-[address] [facility] CBC W Auto Differential pane l (Bld)on 05-27-2025 Basophils (Bld) [#/Vol] 0.03 10*3/uL Normal <0.11 [facility] Comment on above: Order Comment: Speci men Type: BLOOD SPECIMENOrdering Facility: [facility] Address: [address] [place] [address] Performed By: #### 5 7021-8 ####[facility]OSPITALNCLIA [id number] [place] [address] [place] Basophils/100 WBC (Bld) 0.7 % Normal [facility] Comment on above: Order Comment: Speci men Type: BLOOD SPECIMENOrdering Facility: [facility] Address: [address] [place] [address] Performed By: #### 5 7021-8 ####[facility]OSPITALNCLIA [id number] [place] [address] [place] Differential cell count method Nom (Bld) Auto Normal [facility] Comment on above: Order Comment: Speci men Type: BLOOD SPECIMENOrdering Facility: [facility] Address: [address] [place] [address] Performed By: #### 5 7021-8 ####[facility] MILLTOWNCLIA [id number] [place] [address] [place] Eosinophils (Bld) [#/Vol] 0.10 10*3/uL Normal <0.46 [facility] Comment on above: Order Comment: Speci men Type: BLOOD SPECIMENOrdering Facility: [facility] Address: [address] [place] [address] Performed By: #### 5 7021-8 ####[facility] MILLWIGGYLIA [id number] [place] [address] [place] Eosinophils/100 WBC (Bld) 2.2 % Normal [facility] Comment on above: Order Comment: Speci men Type: BLOOD SPECIMENOrdering Facility: [facility] Address: [address] [place] [address] Performed By: #### 5 7021-8 ####[facility] CENTERWNCLIA [id number] [place] [address] [place] Erythrocyte distribution width (RBC) [Ratio] 19.7 % High 11.5-15.0 [facility] Comment on above: Order Comment: Speci men Type: BLOOD SPECIMENOrdering Facility: [facility] Address: [address] [place] [address] Performed By: #### 5 7021-8 ####[facility] MILLTOWNCLIA [id number] [place] [address] [place] Hematocrit (Bld) [Volume fraction] 26.6 % Low 36.0-46.0 [facility] Comment on above: Order Comment: Speci men Type: BLOOD SPECIMENOrdering Facility: [facility] Address: [address] [place] [address] Performed By: #### 5 7021-8 ####[facility] MILLTOWNCLIA [id number] [place] [address] [place] Hemoglobin (Bld) [Mass/Vol] 9.1 g/dL Low 11.5-15.5 [facility] Comment on above: Order Comment: Speci men Type: BLOOD SPECIMENOrdering Facility: [facility] Address: [address] [place] [address] Performed By: #### 5 7021-8 ####[facility] [id number] [place] [address] [place] Immature granulocytes (Bld) [#/Vol] 10*3/uL Normal <0.10 [facility] Comment on above: Order Comment: Speci men Type: BLOOD SPECIMENOrdering Facility: [facility] Address: [address] [place] [address] Performed By: #### 5 7021-8 ####[facility] [id number] [place] [address] [place] Immature granulocytes/100 WBC (Bld) 0.2 % Normal [facility] Comment on above: Order Comment: Speci men Type: BLOOD SPECIMENOrdering Facility: [facility] Address: [address] [place] [address] Performed By: #### 5 7021-8 ####[facility] [id number] [place] [address] [place] Lymphocytes (Bld) [#/Vol] 1.04 10*3/uL Normal 1.00-4.00 [facility] Comment on above: Order Comment: Speci men Type: BLOOD SPECIMENOrdering Facility: [facility] Address: [address] [place] [address] Performed By: #### 5 7021-8 ####[facility] [id number] [place] [address] [place] Lymphocytes/100 WBC (Bld) 23.1 % Normal [facility] Comment on above: Order Comment: Speci men Type: BLOOD SPECIMENOrdering Facility: [facility] Address: [address] [place] [address] Performed By: #### 5 7021-8 ####[facility] HOSPITALNCOPAL [id number] [place] [address] [place] MCH (RBC) [Entitic mass] 29.5 pg Normal 26.0-34.0 [facility] Comment on above: Order Comment: Speci men Type: BLOOD SPECIMENOrdering Facility: [facility] Address: [address] [place] [address] Performed By: #### 5 7021-8 ####[facility] HOSPITALNCLI [id number] [place] [address] [place] MCHC (RBC) [Mass/Vol] 34.2 g/dL Normal 30.5-36.0 [facility] Comment on above: Order Comment: Speci men Type: BLOOD SPECIMENOrdering Facility: [facility] Address: [address] [place] [address] Performed By: #### 5 7021-8 ####[facility]OSPITALNCLIA [id number] [address] [place] MCV (RBC) [Entitic vol] 86.4 fL Normal 80.0-100.0 [facility] Comment on above: Order Comment: Speci men Type: BLOOD SPECIMENOrdering Facility: [facility] Address: [address] [place], [place] [address] Performed By: #### 5 7021-8 ####[facility] HOSPITALNCA [id number] [address] [place] Monocytes (Bld) [#/Vol] 0.33 10*3/uL Normal <0.87 [facility] Comment on above: Order Comment: Speci men Type: BLOOD SPECIMENOrdering Facility: [facility] Address: [address] [place] [address] Performed By: #### 5 7021-8 ####[facility] MILLWNCLIA [id number] [place] [address] [place] Monocytes/100 WBC (Bld) 7.3 % Normal [facility] Comment on above: Order Comment: Speci men Type: BLOOD SPECIMENOrdering Facility: [facility] Address: [address] [place] [address] Performed By: #### 5 7021-8 ####[facility] CENTERLIA [id number] [place] [address] [place] Neutrophils (Bld) [#/Vol] 3.00 10*3/uL Normal 1.45-7.50 [facility] Comment on above: Order Comment: Speci men Type: BLOOD SPECIMENOrdering Facility: [facility] Address: [address] [place] [address] Performed By: #### 5 7021-8 ####[facility] CENTERLIA [id number] [place] [address] [place] Neutrophils/100 WBC (Bld) 66.5 % Normal [facility] Comment on above: Order Comment: Speci men Type: BLOOD SPECIMENOrdering Facility: [facility] Address: [address] [place] [address] Performed By: #### 5 7021-8 ####[facility]OSPITALNCLIA [id number] [place] [address] [place] Nucleated RBC (Bld) [#/Vol] 10*3/uL Normal <0.01 [facility] Comment on above: Order Comment: Speci men Type: BLOOD SPECIMENOrdering Facility: [facility] Address: [address] [place] [address] Performed By: #### 5 7021-8 ####[facility] CENTERLIA [id number] [place] [address] [place] Nucleated RBC/100 WBC (Bld) [Ratio] 0.0 /[address] [facility] Comment on above: Order Comment: Speci men Type: BLOOD SPECIMENOrdering Facility: [facility] Address: [address] [place] [address] Performed By: #### 5 7021-8 ####[facility] HOSPITALCALVIN [id number] [place] [address] [place] Platelet mean volume (Bld) [Entitic vol] 9.6 fL Normal 9.0-12.7 [facility] Comment on above: Order Comment: Speci men Type: BLOOD SPECIMENOrdering Facility: [facility] Address: [address] [place] [address] Performed By: #### 5 7021-8 ####[facility] HOSPITALCALVIN [id number] [place] [address] [place] Platelets (Bld) [#/Vol] 36 10*3/uL Low 150-400 [facility] Comment on above: Order Comment: Speci men Type: BLOOD SPECIMENOrdering Facility: [facility] Address: [address] [place] [address] Result Comment: No c lot detected. Performed By: #### 5 7021-8 ####[facility]OSPITALCALVIN [id number] [place] [address] [place] RBC (Bld) [#/Vol] 3.08 10*6/uL Low 3.90-5.20 [facility] Comment on above: Order Comment: Speci men Type: BLOOD SPECIMENOrdering Facility: [facility] Address: [address] [place] [address] Performed By: #### 5 7021-8 ####[facility] HOSPITALIGGYLIBoo [id number] [place] [address] [place] WBC (Bld) [#/Vol] 4.51 10*3/uL Normal 3.70-11.00 [facility] Comment on above: Order Comment: Speci men Type: BLOOD SPECIMENOrdering Facility: [facility] Address: [address] [place] [address] Performed By: #### 5 7021-8 ####[facility] [id number] [place] [address] [place] CBC W Auto Differential pane l (Bld)on 05-18-2025 Basophils (Bld) [#/Vol] 0.05 10*3/uL Normal <0.11 [facility] Comment on above: Order Comment: Speci men Type: BLOOD SPECIMENOrdering Facility: [facility] Address: [address] [place] [address] Performed By: #### 5 7021-8 ####[facility] LABCLIA [id number] [place] [address] [place] Basophils/100 WBC (Bld) 1.2 % Normal [facility] Comment on above: Order Comment: Speci men Type: BLOOD SPECIMENOrdering Facility: [facility] Address: [address] [place] [address] Performed By: #### 5 7021-8 ####[facility] LABCLIA [id number] [place] [address] [place] Differential cell count method Nom (Bld) Auto Normal [facility] Comment on above: Order Comment: Speci men Type: BLOOD SPECIMENOrdering Facility: [facility] Address: [address] [place] [address] Performed By: #### 5 7021-8 ####[facility] LABCLIA [id number] [place] [address] [place] Eosinophils (Bld) [#/Vol] 0.11 10*3/uL Normal <0.46 [facility] Comment on above: Order Comment: Speci men Type: BLOOD SPECIMENOrdering Facility: [facility] Address: [address] [place] [address] Performed By: #### 5 7021-8 ####[facility] LABCLIA [id number] [place] [address] [place] Eosinophils/100 WBC (Bld) 2.6 % Normal [facility] Comment on above: Order Comment: Speci men Type: BLOOD SPECIMENOrdering Facility: [facility] Address: [address] [place] [address] Performed By: #### 5 7021-8 ####[facility] LABCLIA [id number] [place] [address] [place] Erythrocyte distribution width (RBC) [Ratio] 20.2 % High 11.5-15.0 [facility] Comment on above: Order Comment: Speci men Type: BLOOD SPECIMENOrdering Facility: [facility] Address: [address] [place] [address] Performed By: #### 5 7021-8 ####[facility] LABCLIA [id number] [place] [address] [place] Hematocrit (Bld) [Volume fraction] 28.8 % Low 36.0-46.0 [facility] Comment on above: Order Comment: Speci men Type: BLOOD SPECIMENOrdering Facility: [facility] Address: [address] [place] [address] Performed By: #### 5 7021-8 ####[facility] LABCLIA [id number] [place] [id number] [place] Hemoglobin (Bld) [Mass/Vol] 9.3 g/dL Low 11.5-15.5 [facility] Comment on above: Order Comment: Speci men Type: BLOOD SPECIMENOrdering Facility: [facility] Address: [address] [place] [address] Performed By: #### 5 7021-8 ####[facility] LABCLIA [id number] [place] [address] [place] Immature granulocytes (Bld) [#/Vol] 10*3/uL Normal <0.10 [facility] Comment on above: Order Comment: Speci men Type: BLOOD SPECIMENOrdering Facility: [facility] Address: [address] [place] [address] Performed By: #### 5 7021-8 ####[facility] LABCLIA [id number] [place] [address] [place] Immature granulocytes/100 WBC (Bld) 0.0 % Normal [facility] Comment on above: Order Comment: Speci men Type: BLOOD SPECIMENOrdering Facility: [facility] Address: [address] [place] [address] Performed By: #### 5 7021-8 ####[facility] LABCLIA [id number] [place] [address] [place] Lymphocytes (Bld) [#/Vol] 0.71 10*3/uL Low 1.00-4.00 [facility] Comment on above: Order Comment: Speci men Type: BLOOD SPECIMENOrdering Facility: [facility] Address: [address] [place] [address] Performed By: #### 5 7021-8 ####[facility] LABCLIA [id number] [place] [address] [place] Lymphocytes/100 WBC (Bld) 16.6 % Normal [facility] Comment on above: Order Comment: Speci men Type: BLOOD SPECIMENOrdering Facility: [facility] Address: [address] [place] [address] Performed By: #### 5 7021-8 ####[facility] LABCLIA [id number] [place] [id number] [place] MCH (RBC) [Entitic mass] 28.9 pg Normal 26.0-34.0 [facility] Comment on above: Order Comment: Speci men Type: BLOOD SPECIMENOrdering Facility: [facility] Address: [address] [place] [address] Performed By: #### 5 7021-8 ####[facility] LABCLIA [id number] [place] [address] [place] MCHC (RBC) [Mass/Vol] 32.3 g/dL Normal 30.5-36.0 [facility] Comment on above: Order Comment: Speci men Type: BLOOD SPECIMENOrdering Facility: [facility] Address: [address] [place] [address] Performed By: #### 5 7021-8 ####[facility] LABCLIA [id number] [place] [address] [place] MCV (RBC) [Entitic vol] 89.4 fL Normal 80.0-100.0 [facility] Comment on above: Order Comment: Speci men Type: BLOOD SPECIMENOrdering Facility: [facility] Address: [address] [place] [address] Performed By: #### 5 7021-8 ####[facility] LABIA [id number] [place] [address] [place] Monocytes (Bld) [#/Vol] 0.30 10*3/uL Normal <0.87 [facility] Comment on above: Order Comment: Speci men Type: BLOOD SPECIMENOrdering Facility: [facility] Address: [address] [place] [address] Performed By: #### 5 7021-8 ####[facility] LABCLIA [id number] [place] [address] [place] Monocytes/100 WBC (Bld) 7.0 % Normal [facility] Comment on above: Order Comment: Speci men Type: BLOOD SPECIMENOrdering Facility: [facility] Address: [address] [place] [address] Performed By: #### 5 7021-8 ####[facility] LABCLIA [id number] [address] [address] [place] Neutrophils (Bld) [#/Vol] 3.11 10*3/uL Normal 1.45-7.50 [facility] Comment on above: Order Comment: Speci men Type: BLOOD SPECIMENOrdering Facility: [facility] Address: [address] [place] [address] Performed By: #### 5 7021-8 ####[facility] LABCLIA [id number] [place] [address] [place] Neutrophils/100 WBC (Bld) 72.6 % Normal [facility] Comment on above: Order Comment: Speci men Type: BLOOD SPECIMENOrdering Facility: [facility] Address: [address] [place] [address] Performed By: #### 5 7021-8 ####[facility] LABCLIA [id number] [place] [address] [place] Nucleated RBC (Bld) [#/Vol] 10*3/uL Normal <0.01 [facility] Comment on above: Order Comment: Speci men Type: BLOOD SPECIMENOrdering Facility: [facility] Address: [address] [place] [address] Performed By: #### 5 7021-8 ####[facility] LABCLIA [id number] [place] [address] [place] Nucleated RBC/100 WBC (Bld) [Ratio] 0.0 /[address] [facility] Comment on above: Order Comment: Speci men Type: BLOOD SPECIMENOrdering Facility: [facility] Address: [address] [place] [address] Performed By: #### 5 7021-8 ####[facility] LABCLIA [id number] [place] [id number] [place] Platelet mean volume (Bld) [Entitic vol] 10.7 fL Normal 9.0-12.7 [facility] Comment on above: Order Comment: Speci men Type: BLOOD SPECIMENOrdering Facility: [facility] Address: [address] [place] [address] Performed By: #### 5 7021-8 ####[facility] LABCLIA [id number] [place] [address] [place] Platelets (Bld) [#/Vol] 130 10*3/uL Low 150-400 [facility] Comment on above: Order Comment: Speci men Type: BLOOD SPECIMENOrdering Facility: [facility] Address: [address] [place] [address] Result Comment: Resu lts checked and verified.No clot detected. Performed By: #### 5 7021-8 ####[facility] LABIA [id number] [place] [address] [place] RBC (Bld) [#/Vol] 3.22 10*6/uL Low 3.90-5.20 [facility] Comment on above: Order Comment: Speci men Type: BLOOD SPECIMENOrdering Facility: [facility] Address: [address] [place] [address] Performed By: #### 5 7021-8 ####[facility] LABIA [id number] [place] [address] [place] WBC (Bld) [#/Vol] 4.28 10*3/uL Normal 3.70-11.00 [facility] Comment on above: Order Comment: Speci men Type: BLOOD SPECIMENOrdering Facility: [facility] Address: [address] [place] [address] Performed By: #### 5 7021-8 ####[facility] LABIA [id number] [place] [address] [place] CBC W Auto Differential pane l (Bld)on 05-11-2025 Basophils (Bld) [#/Vol] 0.04 10*3/uL Normal <0.11 [facility] Comment on above: Order Comment: Speci men Type: BLOOD SPECIMENOrdering Facility: [facility] Address: [address] [place] [address] Performed By: #### 5 7021-8 ####[facility] ALISAJULIUSLIA [id number] [place] [address] [place] Basophils/100 WBC (Bld) 0.8 % Normal [facility] Comment on above: Order Comment: Speci men Type: BLOOD SPECIMENOrdering Facility: [facility] Address: [address] [place] [address] Performed By: #### 5 7021-8 ####[facility] CLAY COUNTYA [id number] [place] [address] [place] Differential cell count method Nom (Bld) Auto Normal [facility] Comment on above: Order Comment: Speci men Type: BLOOD SPECIMENOrdering Facility: [facility] Address: [address] [place] [address] Performed By: #### 5 7021-8 ####[facility] CLAY COUNTYA [id number] [place] [address] [place] Eosinophils (Bld) [#/Vol] 0.20 10*3/uL Normal <0.46 [facility] Comment on above: Order Comment: Speci men Type: BLOOD SPECIMENOrdering Facility: [facility] Address: [address] [place] [address] Performed By: #### 5 7021-8 ####[facility] CENTERWNCLIA [id number] [place] [address] [place] Eosinophils/100 WBC (Bld) 4.2 % Normal [facility] Comment on above: Order Comment: Speci men Type: BLOOD SPECIMENOrdering Facility: [facility] Address: [address] [place] [address] Performed By: #### 5 7021-8 ####[facility]ITALNCLIA [id number] [place] [address] [place] Erythrocyte distribution width (RBC) [Ratio] 19.9 % High 11.5-15.0 [facility] Comment on above: Order Comment: Speci men Type: BLOOD SPECIMENOrdering Facility: [facility] Address: [address] [place] [address] Performed By: #### 5 7021-8 ####[facility] ALISAARAPAHOCALVIN [id number] [place] [address] [place] Hematocrit (Bld) [Volume fraction] 25.9 % Low 36.0-46.0 [facility] Comment on above: Order Comment: Speci men Type: BLOOD SPECIMENOrdering Facility: [facility] Address: [address] [place] [address] Performed By: #### 5 7021-8 ####[facility]OSPITALNCLIBoo [id number] [place] [address] [place] Hemoglobin (Bld) [Mass/Vol] 8.6 g/dL Low 11.5-15.5 [facility] Comment on above: Order Comment: Speci men Type: BLOOD SPECIMENOrdering Facility: [facility] Address: [address] [place] [address] Performed By: #### 5 7021-8 ####[facility]OSPITALIGGYLIA [id number] [place] [address] [place] Immature granulocytes (Bld) [#/Vol] 10*3/uL Normal <0.10 [facility] Comment on above: Order Comment: Speci men Type: BLOOD SPECIMENOrdering Facility: [facility] Address: [address] [place] [address] Performed By: #### 5 7021-8 ####[facility]OSPITALNCLIA [id number] [place] [address] [place] Immature granulocytes/100 WBC (Bld) 0.4 % Normal [facility] Comment on above: Order Comment: Speci men Type: BLOOD SPECIMENOrdering Facility: [facility] Address: [address] [place] [address] Performed By: #### 5 7021-8 ####[facility]ITALNCCENTR[facility] [id number] [place] [address] [place] Lymphocytes (Bld) [#/Vol] 0.78 10*3/uL Low 1.00-4.00 [facility] Comment on above: Order Comment: Speci men Type: BLOOD SPECIMENOrdering Facility: [facility] Address: [address] [place] [address] Performed By: #### 5 7021-8 ####[facility] [id number] [address] [place] Lymphocytes/100 WBC (Bld) 16.3 % Normal [facility] Comment on above: Order Comment: Speci men Type: BLOOD SPECIMENOrdering Facility: [facility] Address: [address] [place] [address] Performed By: #### 5 7021-8 ####[facility] [id number] [place] [address] [place] MCH (RBC) [Entitic mass] 29.2 pg Normal 26.0-34.0 [facility] Comment on above: Order Comment: Speci men Type: BLOOD SPECIMENOrdering Facility: [facility] Address: [address] [place] [address] Performed By: #### 5 7021-8 ####[facility] [id number] [place] [address] [place] MCHC (RBC) [Mass/Vol] 33.2 g/dL Normal 30.5-36.0 [facility] Comment on above: Order Comment: Speci men Type: BLOOD SPECIMENOrdering Facility: [facility] Address: [address] [place] [address] Performed By: #### 5 7021-8 ####[facility] HOSPITALCALVIN [id number] [place] [address] [place] MCV (RBC) [Entitic vol] 87.8 fL Normal 80.0-100.0 [facility] Comment on above: Order Comment: Speci men Type: BLOOD SPECIMENOrdering Facility: [facility] Address: [address] [place] [address] Performed By: #### 5 7021-8 ####[facility]ITALNCCENTRAL [facility] [id number] [place] [address] [place] Monocytes (Bld) [#/Vol] 0.41 10*3/uL Normal <0.87 [facility] Comment on above: Order Comment: Speci men Type: BLOOD SPECIMENOrdering Facility: [facility] Address: [address] [place] [address] Performed By: #### 5 7021-8 ####[facility] CLAY COUNTYA [id number] [place] [address] [place] Monocytes/100 WBC (Bld) 8.6 % Normal [facility] Comment on above: Order Comment: Speci men Type: BLOOD SPECIMENOrdering Facility: [facility] Address: [address] [place] [address] Performed By: #### 5 7021-8 ####[facility] CENTERLIA [id number] [place] [address] [place] Neutrophils (Bld) [#/Vol] 3.33 10*3/uL Normal 1.45-7.50 [facility] Comment on above: Order Comment: Speci men Type: BLOOD SPECIMENOrdering Facility: [facility] Address: [address] [place] [address] Performed By: #### 5 7021-8 ####[facility] ALISAARAPAHOKATERINA [id number] [place] [address] [place] Neutrophils/100 WBC (Bld) 69.7 % Normal [facility] Comment on above: Order Comment: Speci men Type: BLOOD SPECIMENOrdering Facility: [facility] Address: [address] [place] [address] Performed By: #### 5 7021-8 ####[facility] [id number] [place] [address] [place] Nucleated RBC (Bld) [#/Vol] 10*3/uL Normal <0.01 [facility] Comment on above: Order Comment: Speci men Type: BLOOD SPECIMENOrdering Facility: [facility] Address: [address] [place] [address] Performed By: #### 5 7021-8 ####[facility] [id number] [place] [address] [place] Nucleated RBC/100 WBC (Bld) [Ratio] 0.0 /[address] [facility] Comment on above: Order Comment: Speci men Type: BLOOD SPECIMENOrdering Facility: [facility] Address: [address] [place] [address] Performed By: #### 5 7021-8 ####[facility] [id number] [place] [address] [place] Platelet mean volume (Bld) [Entitic vol] 9.3 fL Normal 9.0-12.7 [facility] Comment on above: Order Comment: Speci men Type: BLOOD SPECIMENOrdering Facility: [facility] Address: [address] [place] [address] Performed By: #### 5 7021-8 ####[facility]OSPITALNCLI [id number] [place] [address] [place] Platelets (Bld) [#/Vol] 183 10*3/uL Normal 150-400 [facility] Comment on above: Order Comment: Speci men Type: BLOOD SPECIMENOrdering Facility: [facility] Address: [address] [place] [address] Performed By: #### 5 7021-8 ####[facility]ITALNCLIA [id number] [place] [address] [place] RBC (Bld) [#/Vol] 2.95 10*6/uL Low 3.90-5.20 [facility] Comment on above: Order Comment: Speci men Type: BLOOD SPECIMENOrdering Facility: [facility] Address: [address] [place] [address] Performed By: #### 5 7021-8 ####[facility] HOSPITALNCA [id number] [place] [address] [place] WBC (Bld) [#/Vol] 4.78 10*3/uL Normal 3.70-11.00 [facility] Comment on above: Order Comment: Speci men Type: BLOOD SPECIMENOrdering Facility: [facility] Address: [address] [place] [address] Performed By: #### 5 7021-8 ####[facility] HOSPITALNCA [id number] [place] [address] [place] CNPNon 05-11-[address] [facility] Cancer Ag125 SerPl-aCncon Cancer Ag 125 Qn 12 [arb'U]/mL Normal <39 [facility] Comment on above: Order Comment: Speci men Type: BLOOD SPECIMENOrdering Facility: [facility] Address: [address] [place] [address] Result Comment: CA 1 25 test methodology [...] (CA 125 II) [package insert V 1.0 Jamaican]. [facility], [place], [place] (July 2015) Performed By: #### 1 0334-1 ####[facility] LABCLIA [id number] [place] [address] [place] Comprehensive metabolic 2000 panelon 05-11-2025 Albumin [Mass/Vol] 4.2 g/dL Normal 3.9-4.9 [facility] Comment on above: Order Comment: Speci men Type: BLOOD SPECIMENOrdering Facility: [facility] Address: [address] [place] [address] Performed By: #### 1 9123-9, 37536-0 ####[facility]ITALNCCENTR[facility] [id number] [place] [address] [place] ALP [Catalytic activity/Vol] 73 U/L Normal 34-123 [facility] Comment on above: Order Comment: Speci men Type: BLOOD SPECIMENOrdering Facility: [facility] Address: [address] [place] [address] Performed By: #### 1 9123-9, 72213-6 ####[facility] [id number] [place] [address] [place] ALT [Catalytic activity/Vol] 10 U/L Normal 7-38 [facility] Comment on above: Order Comment: Speci men Type: BLOOD SPECIMENOrdering Facility: [facility] Address: [address] [place] [address] Performed By: #### 1 9123-9, 99624-8 ####[facility]ITALNCCEN[facility] [id number] [place] [address] [place] Anion gap [Moles/Vol] 12 mmol/L Normal 8-15 [facility] Comment on above: Order Comment: Speci men Type: BLOOD SPECIMENOrdering Facility: [facility] Address: [address] [place] [address] Performed By: #### 1 9123-9, 67475-2 ####[facility] PATRICIO MEYERS [id number] [place] [address] [place] AST [Catalytic activity/Vol] 16 U/L Normal 13-35 [facility] Comment on above: Order Comment: Speci men Type: BLOOD SPECIMENOrdering Facility: [facility] Address: [address] [place] [address] Performed By: #### 1 9123-9, 69188-2 ####[facility] ALISAARAPAHONCDEMETRIO [id number] [place] [address] [place] Bilirubin [Mass/Vol] 0.2 mg/dL Normal 0.2-1.3 [facility] Comment on above: Order Comment: Speci men Type: BLOOD SPECIMENOrdering Facility: [facility] Address: [address] [place] [address] Performed By: #### 1 9123-9, 09008-2 ####[facility] ALISAARAPAHOKATERINA [id number] [place] [address] [place] Calcium [Mass/Vol] 9.0 mg/dL Normal 8.5-10.2 [facility] Comment on above: Order Comment: Speci men Type: BLOOD SPECIMENOrdering Facility: [facility] Address: [address] [place] [address] Performed By: #### 1 9123-9, 33329-9 ####[facility]PITALNCLIA [id number] [place] [address] [place] Chloride [Moles/Vol] 100 mmol/L Normal 98-107 [facility] Comment on above: Order Comment: Speci men Type: BLOOD SPECIMENOrdering Facility: [facility] Address: [address] [place] [address] Performed By: #### 1 9123-9, 14335-9 ####[facility] ALISAWNCLIA [id number] [place] [address] [place] CO2 [Moles/Vol] 22 mmol/L Normal 22-30 [facility] Comment on above: Order Comment: Speci men Type: BLOOD SPECIMENOrdering Facility: [facility] Address: [address] [place] [address] Performed By: #### 1 9123-9, 65730-6 ####[facility]PITALNCLIA [id number] [place] [address] [place] Creatinine [Mass/Vol] 1.07 mg/dL High 0.58-0.96 [facility] Comment on above: Order Comment: Speci men Type: BLOOD SPECIMENOrdering Facility: [facility] Address: [address] [place] [address] Performed By: #### 1 9123-9, 59793-2 ####[facility]PITALNCLIA [id number] [place] [address] [place] eGFRcr SerPlBld CKD-EPI 2020 55 mL/min/1.73m??? Low >=60 [facility] Comment on above: Order Comment: Speci men Type: BLOOD SPECIMENOrdering Facility: [facility] Address: [address] [place] [address] Result Comment: Ethel mated Glomerular Filtration Rate [...] actual GFR. Performed By: #### 1 9123-9, 57392-0 ####[facility]ITALNCLIA [id number] [place] [address] [place] Glucose [Mass/Vol] 120 mg/dL High 74-99 [facility] Comment on above: Order Comment: Speci men Type: BLOOD SPECIMENOrdering Facility: [facility] Address: [address] [place] [address] Result Comment: The [place] [employer] (ADA) provides guidance for cutoff [...] Standards of Medical Care in Diabetes 2016, [place] [employer]. Diabetes Care. 2016.39(Suppl 1). Performed By: #### 1 9123-9, 58185-2 ####[facility] MILLTOWNCLIA [id number] [place] [address] [place] Potassium [Moles/Vol] 3.9 mmol/L Normal 3.7-5.1 [facility] Comment on above: Order Comment: Speci men Type: BLOOD SPECIMENOrdering Facility: [facility] Address: [address] [place], [place] [address] Performed By: #### 1 9123-9, 42004-7 ####[facility] MILLTOWNCLIA [id number] [place] [address] [place] Protein [Mass/Vol] 6.4 g/dL Normal 6.3-8.0 [facility] Comment on above: Order Comment: Speci men Type: BLOOD SPECIMENOrdering Facility: [facility] Address: [address] [place], [place] [address] Performed By: #### 1 9123-9, 39259-4 ####[facility] MILLTOWNCLIA [id number] [place] [address] [place] Sodium [Moles/Vol] 134 mmol/L Low 136-144 [facility] Comment on above: Order Comment: Speci men Type: BLOOD SPECIMENOrdering Facility: [facility] Address: [address] [place] [address] Performed By: #### 1 9123-9, 37642-0 ####[facility] MIKAYLAA [id number] [place] [address] [place] Urea nitrogen [Mass/Vol] 16 mg/dL Normal 7-21 [facility] Comment on above: Order Comment: Speci men Type: BLOOD SPECIMENOrdering Facility: [facility] Address: [address] [place] [address] Performed By: #### 1 9123-9, 49904-4 ####[facility] CENTERSANDRA [id number] [place] [address] [place] Magnesium SerPl-mCncon 05-11 Magnesium [Mass/Vol] 2.2 mg/dL Normal 1.7-2.3 [facility] Comment on above: Order Comment: Speci men Type: BLOOD SPECIMENOrdering Facility: [facility] Address: [address] [place] [address] Performed By: #### 1 9123-9, 08585-7 ####[facility] MIKAYLAA [id number] [place] [address] [place] CBC W Auto Differential pane l (Bld)on 05-04-2025 Basophils (Bld) [#/Vol] 0.06 10*3/uL Normal <0.11 [facility] Comment on above: Order Comment: Speci men Type: BLOOD SPECIMENOrdering Facility: [facility] Address: [address] [place] [address] Performed By: #### 5 7021-8 ####[facility] ALISAARAPAHOCALVIN [id number] [place] [address] [place] Basophils/100 WBC (Bld) 0.9 % Normal [facility] Comment on above: Order Comment: Speci men Type: BLOOD SPECIMENOrdering Facility: [facility] Address: [address] [place] [address] Performed By: #### 5 7021-8 ####[facility] [id number] [place] [address] [place] Differential cell count method Nom (Bld) Auto Normal [facility] Comment on above: Order Comment: Speci men Type: BLOOD SPECIMENOrdering Facility: [facility] Address: [address] [place] [address] Performed By: #### 5 7021-8 ####[facility] [id number] [place] [address] [place] Eosinophils (Bld) [#/Vol] 0.12 10*3/uL Normal <0.46 [facility] Comment on above: Order Comment: Speci men Type: BLOOD SPECIMENOrdering Facility: [facility] Address: [address] [place] [address] Performed By: #### 5 7021-8 ####[facility] [id number] [place] [address] [place] Eosinophils/100 WBC (Bld) 1.8 % Normal [facility] Comment on above: Order Comment: Speci men Type: BLOOD SPECIMENOrdering Facility: [facility] Address: [address] [place] [address] Performed By: #### 5 7021-8 ####[facility] [id number] [place] [address] [place] Erythrocyte distribution width (RBC) [Ratio] 20.1 % High 11.5-15.0 [facility] Comment on above: Order Comment: Speci men Type: BLOOD SPECIMENOrdering Facility: [facility] Address: [address] [place] [address] Performed By: #### 5 7021-8 ####[facility] LUIGI [id number] [place] [address] [place] Hematocrit (Bld) [Volume fraction] 27.2 % Low 36.0-46.0 [facility] Comment on above: Order Comment: Speci men Type: BLOOD SPECIMENOrdering Facility: [facility] Address: [address] [place] [address] Performed By: #### 5 7021-8 ####[facility]ITALNCDEMETRIO [id number] [place] [address] [place] Hemoglobin (Bld) [Mass/Vol] 9.2 g/dL Low 11.5-15.5 [facility] Comment on above: Order Comment: Speci men Type: BLOOD SPECIMENOrdering Facility: [facility] Address: [address] [place] [address] Performed By: #### 5 7021-8 ####[facility]OSPITALKATERINBoo [id number] [place] [address] [place] Immature granulocytes (Bld) [#/Vol] 10*3/uL Normal <0.10 [facility] Comment on above: Order Comment: Speci men Type: BLOOD SPECIMENOrdering Facility: [facility] Address: [address] [place] [address] Performed By: #### 5 7021-8 ####[facility]OSPITALKATERINA [id number] [place] [address] [place] Immature granulocytes/100 WBC (Bld) 0.2 % Normal [facility] Comment on above: Order Comment: Speci men Type: BLOOD SPECIMENOrdering Facility: [facility] Address: [address] [place] [address] Performed By: #### 5 7021-8 ####[facility] CENTERWNCLIA [id number] [place] [address] [place] Lymphocytes (Bld) [#/Vol] 0.90 10*3/uL Low 1.00-4.00 [facility] Comment on above: Order Comment: Speci men Type: BLOOD SPECIMENOrdering Facility: [facility] Address: [address] [place] [address] Performed By: #### 5 7021-8 ####[facility] CLAY COUNTYA [id number] [place] [address] [place] Lymphocytes/100 WBC (Bld) 13.7 % Normal [facility] Comment on above: Order Comment: Speci men Type: BLOOD SPECIMENOrdering Facility: [facility] Address: [address] [place] [address] Performed By: #### 5 7021-8 ####[facility] [id number] [place] [address] [place] MCH (RBC) [Entitic mass] 29.6 pg Normal 26.0-34.0 [facility] Comment on above: Order Comment: Speci men Type: BLOOD SPECIMENOrdering Facility: [facility] Address: [address] [place] [address] Performed By: #### 5 7021-8 ####[facility] CLAY COUNTYA [id number] [place] [address] [place] MCHC (RBC) [Mass/Vol] 33.8 g/dL Normal 30.5-36.0 [facility] Comment on above: Order Comment: Speci men Type: BLOOD SPECIMENOrdering Facility: [facility] Address: [address] [place] [address] Performed By: #### 5 7021-8 ####[facility]ITALNCLIA [id number] [place] [address] [place] MCV (RBC) [Entitic vol] 87.5 fL Normal 80.0-100.0 [facility] Comment on above: Order Comment: Speci men Type: BLOOD SPECIMENOrdering Facility: [facility] Address: [address] [place] [address] Performed By: #### 5 7021-8 ####[facility]PITALNCLIA [id number] [place] [address] [place] Monocytes (Bld) [#/Vol] 0.58 10*3/uL Normal <0.87 [facility] Comment on above: Order Comment: Speci men Type: BLOOD SPECIMENOrdering Facility: [facility] Address: [address] [place] [address] Performed By: #### 5 7021-8 ####[facility]ITALNCLIA [id number] [place] [address] [place] Monocytes/100 WBC (Bld) 8.8 % Normal [facility] Comment on above: Order Comment: Speci men Type: BLOOD SPECIMENOrdering Facility: [facility] Address: [address] [place] [address] Performed By: #### 5 7021-8 ####[facility]ITALNCLIA [id number] [place] [address] [place] Neutrophils (Bld) [#/Vol] 4.89 10*3/uL Normal 1.45-7.50 [facility] Comment on above: Order Comment: Speci men Type: BLOOD SPECIMENOrdering Facility: [facility] Address: [address] [place] [address] Performed By: #### 5 7021-8 ####[facility]PITALNCLIA [id number] [place] [address] [place] Neutrophils/100 WBC (Bld) 74.6 % Normal [facility] Comment on above: Order Comment: Speci men Type: BLOOD SPECIMENOrdering Facility: [facility] Address: [address] [place] [address] Performed By: #### 5 7021-8 ####[facility] ALISAARAPAHOCALVNI [id number] [place] [address] [place] Nucleated RBC (Bld) [#/Vol] 10*3/uL Normal <0.01 [facility] Comment on above: Order Comment: Speci men Type: BLOOD SPECIMENOrdering Facility: [facility] Address: [address] [place] [address] Performed By: #### 5 7021-8 ####[facility]PITALNCDEMETRIO [id number] [place] [address] [place] Nucleated RBC/100 WBC (Bld) [Ratio] 0.0 /[address] [facility] Comment on above: Order Comment: Speci men Type: BLOOD SPECIMENOrdering Facility: [facility] Address: [address] [place] [address] Performed By: #### 5 7021-8 ####[facility]OSPITALNCLIA [id number] [place] [address] [place] Platelet mean volume (Bld) [Entitic vol] 8.8 fL Low 9.0-12.7 [facility] Comment on above: Order Comment: Speci men Type: BLOOD SPECIMENOrdering Facility: [facility] Address: [address] [place] [address] Performed By: #### 5 7021-8 ####[facility]OSPITALNCLIA [id number] [place] [address] [place] Platelets (Bld) [#/Vol] 316 10*3/uL Normal 150-400 [facility] Comment on above: Order Comment: Speci men Type: BLOOD SPECIMENOrdering Facility: [facility] Address: [address] [place] [address] Performed By: #### 5 7021-8 ####[facility] ALISAWNCLIA [id number] [place] [address] [place] RBC (Bld) [#/Vol] 3.11 10*6/uL Low 3.90-5.20 [facility] Comment on above: Order Comment: Speci men Type: BLOOD SPECIMENOrdering Facility: [facility] Address: [address] [place] [address] Performed By: #### 5 7021-8 ####[facility] HOSPITALNCOPALA [id number] [place] [address] [place] WBC (Bld) [#/Vol] 6.56 10*3/uL Normal 3.70-11.00 [facility] Comment on above: Order Comment: Speci men Type: BLOOD SPECIMENOrdering Facility: [facility] Address: [address] [place] [address] Performed By: #### 5 7021-8 ####[facility]OSPITALNCBoo [id number] [place] [address] [place] CNPTOUTREACHon 04-28-[address] [facility] Colonoscopy Reporton 025 Colonoscopy Report [facility] Medical Records Department [address] [place] [address] Colonoscopy Report MR#: [id number] Acct: [id number] Name: SAL BAUTISTA Rep #: [id number] : 1950 75 From: Ankur Colon DO PCP: Dr. Romel Michelle MD Status:[facility] Patient Name: Sal Bautista Procedure Date: 04/26/2025 2:19 PM Date of : 1950 Age: 75 Procedure: Colonoscopy Indications: Hematochezia Providers: Ankur Colon DO Referring MD: Romel Michelle Medicines: Monitored Anesthesia Care Patient Profile: This is a 75 year old female. Refer to note in patient chart for documentation of history and physical. Last Colonoscopy: within the past year. Complications: No immediate complications. Procedure: Pre-Anesthesia Assessment: - Prior to the procedure, a History and Physical was performed, and patient medications and allergies were reviewed. The patient is competent. The risks and benefits of the procedure and the sedation options and risks were discussed with the patient. All questions were answered and informed consent was obtained. Patient identification and proposed procedure were verified by the physician in the pre-procedure area. Mental Status Examination: alert and oriented. Airway Examination: normal oropharyngeal airway and neck mobility. Respiratory Examination: clear to auscultation. CV Examination: normal. ASA Grade Assessment: II - A patient with mild systemic disease. After reviewing the risks and benefits, the patient was deemed in satisfactory condition to undergo the procedure. The anesthesia plan was to use monitored anesthesia care (MAC). Immediately prior to administration of medications, the patient was re-assessed for adequacy to receive sedatives. The heart rate, respiratory rate, oxygen saturations, blood pressure, adequacy of pulmonary ventilation, and response to care were monitored throughout the procedure. The physical status of the patient was re-assessed after the procedure. After I obtained informed consent, the scope was passed under direct vision. Throughout the procedure, the patient's blood pressure, pulse, and oxygen saturations were monitored continuously. The Colonoscope was introduced through the anus and advanced to the terminal ileum. The colonoscopy was performed without difficulty. The patient tolerated the procedure well. The quality of the bowel preparation was adequate. The terminal ileum, ileocecal valve, appendiceal orifice, and rectum were photographed. Scope In: 2:32:22 PM Scope Withdrawal Time 0 hours 13 minutes 28 seconds Scope Out: 2:52:49 PM Total Procedure Duration Time 0 hours 20 minutes 27 seconds Findings: The perianal and digital rectal examinations were normal. There was evidence of a prior end-to-side colo-colonic anastomosis in the recto-sigmoid colon. This was patent and was characterized by ulceration. The anastomosis was traversed. This was biopsied with a cold forceps for histology. Verification of patient identification for the specimen was done. Estimated blood loss was minimal. Coagulation for hemostasis using heater probe was successful. Estimated blood loss was minimal. The exam was otherwise without abnormality. A benign-appearing, intrinsic mild stenosis measuring 3 cm (in length) x 7 mm (inner diameter) was found in the sigmoid colon and was traversed. Biopsies were taken with a cold forceps for histology. Verification of patient identification for the specimen was done. Estimated blood loss was minimal. Impression: - Patent end-to-side colo-colonic anastomosis, characterized by ulceration. Biopsied. Treated with a heater probe. - The examination was otherwise normal. Recommendation: - Discharge patient to home. - Resume previous diet. - Continue present medications. - Await pathology results. - Repeat colonoscopy in 5 years for surveillance. Procedure Code(s): --- Professional --- 23074, 59, Colonoscopy, flexible; with control of bleeding, any method 80380, Colonoscopy, flexible; with biopsy, single or multiple CPT copyright 2021 [employer]. All rights reserved. The codes documented in this report are preliminary and upon pega developer review may be revised to meet current compliance requirements. Ankur Colon DO 04/26/2025 3:00:27 PM This report has been signed electronically. Number of Addenda: 0 Note Initiated On: 04/26/2025 2:19 PM 04/26/25 1500 Date Ankur Colon DO Cosigngarett Signature: Date (if indicated) CC: Dr. Romel Michelle MD; Ankur Colon DO Date Dictated: 04/26/25 1419 Date Transcribed: Product Tester: NEHAL Signed [facility] MR/POSTOP.[place] 04-26-2025 MR/POSTOP.[facility] Medical Records Department [address] [place] [address] Anesthesia Postop Eval I 04/26/25 1502 MR#: [id number] Acct: [id number] Name: SAL BAUTISTA Rep #: [id number] : 1950 75 From: Darryl Reeves PCP: Dr. Romel Michelle MD Status:[facility] Y Race: C Location: [address] Anesthesia: Postop Eval I Current Vital Signs [...] Postop Eval 1 completed: Yes 04/26/25 1502 Date Darryl Lópezigngarett Signature: Date CC: Signed Normal [facility] [id number] 04-26-2025 [facility] Medical Records Department [address] [place] [address] Anesthesia Postop Eval II 04/26/25 1807 MR#: [id number] Acct: [id number] Name: SAL BAUTISTA Rep #: [id number] : 1950 75 From: Aquiles Durand MD PCP: Dr. Romel Michelle MD Status:[facility] Y Race: C Location: EN Anesthesia Postop Eval I Sum Postop Eval Completion status Anesthesia document: Postop Eval 1 completed: Yes Anesthesia Postop Eval I Summary Anesthesia Postop Eval I Summary: Anesthesia Postop Eval I: Assessment Summary Airway patent Yes 04/26/25 15:02 [email or web address] Spontaneous unlabored Yes 04/26/25 15:02 [email or web address] respirations Mental status Asleep 04/26/25 15:02 [email or web address] nausea No 04/26/25 15:02 [email or web address] Vomiting No 04/26/25 15:02 [email or web address] Anesthesia Postop Eval I: Fluid Summary Crystalloid volume administer 500 04/26/25 15:02 [email or web address] (ml) Colloids volume administered ( ml) Blood Product volume administered (ml) Total IV fluid infused 500 04/26/25 15:02 [email or web address] Anesthesia Postop Eval I: Summary Notes Anesthesia Complication No 04/26/25 15:02 [email or web address] Anesthesia Complication Comment: Post-operative progress note Anesthesia: Postop Eval II Evaluation Mental status: Awake Pain Level: 0 nausea: No Vomiting: No Progress Note Post-operative progress note: Meets discharge criteria Complications Anesthesia Complication: No 04/26/25 1808 Date Aquiles Durand MD [facility] Signature: Date CC: Signed Normal [facility] Surgery Specimen Level Janna 04-26-2025 Surgery Specimen Level IV Patient Age/Sex Location Account Attending Physician SAL BAUTISTA 75/F EN [id number] Ankur Colon DO Specimen: [id number] Received: 04/26/25 Status: DANNI Love Num: [id number] Spec Type: COLON BX Subm Dr: Ankur Colon DO HEADGARETT OPERATION: Colonoscopy with biopsy and gold probe to anastomosis site PRE-OP DIAGNOSIS: History of reversal of ileostomy, blood in stool, nikki TISSUE SUBMITTED: A- Anastomosis site biopsy MICROSCOPIC DIAGNOSIS A. Anastomosis, site not specified, biopsy: - Fragments of colonic mucosa with active chronic inflammation and moderate crypt architectural change. - Negative for dysplasia/malignancy. MICROSCOPIC DESCRIPTION Slides are reviewed. GROSS DESCRIPTION A. Received in fixative is one container labeled with the patient's name and designated Anastomosis site biopsy. The specimen consists of multiple irregular fragments of light del rosario soft tissue that in aggregate measure 0.1 to 0.4 cm. The specimen is totally submitted in one cassette. MI 04/27/2025 [facility]:[id number] Patient Age/Sex Location Account Attending Physician SAL BAUTISTA 75/ EN [id number] Ankur Colon DO Signed (signature on file) Dr. Lucy Morrison MD 05/02/25 0929 Normal [facility] Comment on above: Performed By: #### P SUIV ####[facility] [id number] [place], [place], [id number] CBC W Auto Differential pane l (Bld)on 04-25-2025 Basophils (Bld) [#/Vol] 10*3/uL Normal <0.11 [facility] Comment on above: Order Comment: Speci men Type: BLOOD SPECIMENOrdering Facility: [facility] Address: [address] [place] [address] Performed By: #### 5 7021-8 ####[facility] CENTERWMALI [id number] [place] [address] [place] Basophils/100 WBC (Bld) 0.5 % Normal [facility] Comment on above: Order Comment: Speci men Type: BLOOD SPECIMENOrdering Facility: [facility] Address: [address] [place] [address] Performed By: #### 5 7021-8 ####[facility] ALISASANDRA [id number] [place] [address] [place] Differential cell count method Nom (Bld) Auto Normal [facility] Comment on above: Order Comment: Speci men Type: BLOOD SPECIMENOrdering Facility: [facility] Address: [address] [place] [address] Performed By: #### 5 7021-8 ####[facility]PITALNCDEMETRIO [id number] [place] [address] [place] Eosinophils (Bld) [#/Vol] 0.06 10*3/uL Normal <0.46 [facility] Comment on above: Order Comment: Speci men Type: BLOOD SPECIMENOrdering Facility: [facility] Address: [address] [place] [address] Performed By: #### 5 7021-8 ####[facility]PITALNCLIA [id number] [place] [address] [place] Eosinophils/100 WBC (Bld) 1.6 % Normal [facility] Comment on above: Order Comment: Speci men Type: BLOOD SPECIMENOrdering Facility: [facility] Address: [address] [place] [address] Performed By: #### 5 7021-8 ####[facility]ITALNCLIA [id number] [place] [address] [place] Erythrocyte distribution width (RBC) [Ratio] 19.9 % High 11.5-15.0 [facility] Comment on above: Order Comment: Speci men Type: BLOOD SPECIMENOrdering Facility: [facility] Address: [address] [place] [address] Performed By: #### 5 7021-8 ####[facility] CENTERLIA [id number] [place] [address] [place] Hematocrit (Bld) [Volume fraction] 28.0 % Low 36.0-46.0 [facility] Comment on above: Order Comment: Speci men Type: BLOOD SPECIMENOrdering Facility: [facility] Address: [address] [place] [address] Performed By: #### 5 7021-8 ####[facility] [id number] [place] [address] [place] Hemoglobin (Bld) [Mass/Vol] 9.1 g/dL Low 11.5-15.5 [facility] Comment on above: Order Comment: Speci men Type: BLOOD SPECIMENOrdering Facility: [facility] Address: [address] [place] [address] Performed By: #### 5 7021-8 ####[facility] [id number] [place] [address] [place] Immature granulocytes (Bld) [#/Vol] 10*3/uL Normal <0.10 [facility] Comment on above: Order Comment: Speci men Type: BLOOD SPECIMENOrdering Facility: [facility] Address: [address] [place] [address] Performed By: #### 5 7021-8 ####[facility] [id number] [place] [address] [place] Immature granulocytes/100 WBC (Bld) 0.3 % Normal [facility] Comment on above: Order Comment: Speci men Type: BLOOD SPECIMENOrdering Facility: [facility] Address: [address] [place] [address] Performed By: #### 5 7021-8 ####[facility]ITALNCLIA [id number] [place] [address] [place] Lymphocytes (Bld) [#/Vol] 0.67 10*3/uL Low 1.00-4.00 [facility] Comment on above: Order Comment: Speci men Type: BLOOD SPECIMENOrdering Facility: [facility] Address: [address] [place] [address] Performed By: #### 5 7021-8 ####[facility] [id number] [place] [address] [place] Lymphocytes/100 WBC (Bld) 18.1 % Normal [facility] Comment on above: Order Comment: Speci men Type: BLOOD SPECIMENOrdering Facility: [facility] Address: [address] [place] [address] Performed By: #### 5 7021-8 ####[facility] [id number] [place] [address] [place] MCH (RBC) [Entitic mass] 28.7 pg Normal 26.0-34.0 [facility] Comment on above: Order Comment: Speci men Type: BLOOD SPECIMENOrdering Facility: [facility] Address: [address] [place] [address] Performed By: #### 5 7021-8 ####[facility] [id number] [place] [address] [place] MCHC (RBC) [Mass/Vol] 32.5 g/dL Normal 30.5-36.0 [facility] Comment on above: Order Comment: Speci men Type: BLOOD SPECIMENOrdering Facility: [facility] Address: [address] [place], [place] [address] Performed By: #### 5 7021-8 ####[facility] [id number] [place] [address] [place] MCV (RBC) [Entitic vol] 88.3 fL Normal 80.0-100.0 [facility] Comment on above: Order Comment: Speci men Type: BLOOD SPECIMENOrdering Facility: [facility] Address: [address] [place] [address] Performed By: #### 5 7021-8 ####[facility] SUNDARWNCLIA [id number] [place] [address] [place] Monocytes (Bld) [#/Vol] 0.61 10*3/uL Normal <0.87 [facility] Comment on above: Order Comment: Speci men Type: BLOOD SPECIMENOrdering Facility: [facility] Address: [address] [place] [address] Performed By: #### 5 7021-8 ####[facility] CENTERWMALIA [id number] [place] [address] [place] Monocytes/100 WBC (Bld) 16.5 % Normal [facility] Comment on above: Order Comment: Speci men Type: BLOOD SPECIMENOrdering Facility: [facility] Address: [address] [place] [address] Performed By: #### 5 7021-8 ####[facility]PITALNCLIA [id number] [place] [address] [place] Neutrophils (Bld) [#/Vol] 2.33 10*3/uL Normal 1.45-7.50 [facility] Comment on above: Order Comment: Speci men Type: BLOOD SPECIMENOrdering Facility: [facility] Address: [address] [place] [address] Performed By: #### 5 7021-8 ####[facility] CENTERWNCLIA [id number] [place] [address] [place] Neutrophils/100 WBC (Bld) 63.0 % Normal [facility] Comment on above: Order Comment: Speci men Type: BLOOD SPECIMENOrdering Facility: [facility] Address: [address] [place] [address] Performed By: #### 5 7021-8 ####[facility] [id number] [place] [address] [place] Nucleated RBC (Bld) [#/Vol] 0.02 10*3/uL High <0.01 [facility] Comment on above: Order Comment: Speci men Type: BLOOD SPECIMENOrdering Facility: [facility] Address: [address] [place] [address] Performed By: #### 5 7021-8 ####[facility] [id number] [place] [address] [place] Nucleated RBC/100 WBC (Bld) [Ratio] 0.5 /[address] [facility] Comment on above: Order Comment: Speci men Type: BLOOD SPECIMENOrdering Facility: [facility] Address: [address] [place] [address] Performed By: #### 5 7021-8 ####[facility] [id number] [place] [address] [place] Platelet mean volume (Bld) [Entitic vol] 9.5 fL Normal 9.0-12.7 [facility] Comment on above: Order Comment: Speci men Type: BLOOD SPECIMENOrdering Facility: [facility] Address: [address] [place] [address] Performed By: #### 5 7021-8 ####[facility] [id number] [place] [address] [place] Platelets (Bld) [#/Vol] 295 10*3/uL Normal 150-400 [facility] Comment on above: Order Comment: Speci men Type: BLOOD SPECIMENOrdering Facility: [facility] Address: [address] [place] [address] Performed By: #### 5 7021-8 ####[facility] [id number] [place] [address] [place] RBC (Bld) [#/Vol] 3.17 10*6/uL Low 3.90-5.20 [facility] Comment on above: Order Comment: Speci men Type: BLOOD SPECIMENOrdering Facility: [facility] Address: [address] [place] [address] Performed By: #### 5 7021-8 ####[facility] [id number] [place] [address] [place] WBC (Bld) [#/Vol] 3.70 10*3/uL Normal 3.70-11.00 [facility] Comment on above: Order Comment: Speci men Type: BLOOD SPECIMENOrdering Facility: [facility] Address: [address] [place] [address] Performed By: #### 5 7021-8 ####[facility] [id number] [place] [address] [place] Cancer Ag125 SerPl-aCncon Cancer Ag 125 Qn 12 [arb'U]/mL Normal <39 [facility] Comment on above: Order Comment: Speci men Type: BLOOD SPECIMENOrdering Facility: [facility] Address: [address] [place] [address] Result Comment: CA 1 25 test methodology [...] (CA 125 II) [package insert V 1.0 Jamaican]. [facility], [place], [place] (July 2015) Performed By: #### 1 0334-1 ####[facility] LABCLIA [id number] [place] [address] [place] Comprehensive metabolic 2000 panelon 07-21-2025 Albumin [Mass/Vol] 4.5 g/dL Normal 3.9-4.9 [facility] Comment on above: Order Comment: Speci men Type: BLOOD SPECIMENOrdering Facility: [facility] Address: [address] [place] [address] Performed By: #### 1 9123-9, 52012-5 ####[facility]ENTERWNCLIA [id number] [place] [address] [place] ALP [Catalytic activity/Vol] 72 U/L Normal 34-123 [facility] Comment on above: Order Comment: Speci men Type: BLOOD SPECIMENOrdering Facility: [facility] Address: [address] [place] [address] Performed By: #### 1 9123-9, 79687-2 ####[facility] [id number] [place] [address] [place] ALT [Catalytic activity/Vol] 17 U/L Normal 7-38 [facility] Comment on above: Order Comment: Speci men Type: BLOOD SPECIMENOrdering Facility: [facility] Address: [address] [place] [address] Performed By: #### 1 9123-9, 35860-6 ####[facility] [id number] [place] [address] [place] Anion gap [Moles/Vol] 18 mmol/L High 8-15 [facility] Comment on above: Order Comment: Speci men Type: BLOOD SPECIMENOrdering Facility: [facility] Address: [address] [place] [address] Performed By: #### 1 9123-9, 36304-0 ####[facility] [id number] [place] [address] [place] AST [Catalytic activity/Vol] 17 U/L Normal 13-35 [facility] Comment on above: Order Comment: Speci men Type: BLOOD SPECIMENOrdering Facility: [facility] Address: [address] [place] [address] Performed By: #### 1 9123-9, 17341-5 ####[facility] ALISAMOLINA [id number] [place] [address] [place] Bilirubin [Mass/Vol] 0.2 mg/dL Normal 0.2-1.3 [facility] Comment on above: Order Comment: Speci men Type: BLOOD SPECIMENOrdering Facility: [facility] Address: [address] [place] [address] Performed By: #### 1 9123-9, 18369-3 ####[facility] ALISAMOLINA [id number] [place] [address] [place] Calcium [Mass/Vol] 9.4 mg/dL Normal 8.5-10.2 [facility] Comment on above: Order Comment: Speci men Type: BLOOD SPECIMENOrdering Facility: [facility] Address: [address] [place] [address] Performed By: #### 1 9123-9, 25879-0 ####[facility]ITALCALV[facility] [id number] [place] [address] [place] Chloride [Moles/Vol] 103 mmol/L Normal 98-107 [facility] Comment on above: Order Comment: Speci men Type: BLOOD SPECIMENOrdering Facility: [facility] Address: [address] [place] [address] Performed By: #### 1 9123-9, ####[facility]ITALCALV[facility] [id number] [place] [address] [place] CO2 [Moles/Vol] 17 mmol/L Low 22-30 [facility] Comment on above: Order Comment: Speci men Type: BLOOD SPECIMENOrdering Facility: [facility] Address: [address] [place] [address] Performed By: #### 1 9123-9, 35715-1 ####[facility] ALISAWNCLIA [id number] [place] [address] [place] Creatinine [Mass/Vol] 0.90 mg/dL Normal 0.58-0.96 [facility] Comment on above: Order Comment: Speci men Type: BLOOD SPECIMENOrdering Facility: [facility] Address: [address] [place] [address] Performed By: #### 1 9123-9, 15103-9 ####[facility]ITALNCLIA [id number] [place] [address] [place] eGFRcr SerPlBld CKD-EPI 2020 68 mL/min/1.73m??? Normal >=60 [facility] Comment on above: Order Comment: Cheng cooley Type: BLOOD SPECIMENOrdering Facility: [facility] Address: [address] [place] [address] Result Comment: Ethel mated Glomerular Filtration Rate [...] actual GFR. Performed By: #### 1 9123-9, 77560-4 ####[facility] CLAY COUNTYA [id number] [place] [address] [place] Glucose [Mass/Vol] 102 mg/dL High 74-99 [facility] Comment on above: Order Comment: Speci men Type: BLOOD SPECIMENOrdering Facility: [facility] Address: [address] [place] [address] Result Comment: The [place] Diabetes Association (ADA) provides guidance for cutoff [...] Standards of Medical Care in Diabetes 2016, [place] [employer] Association. Diabetes Care. 2016.39(Suppl 1). Performed By: #### 1 9123-9, ####[facility] MILLTOWNCLIA [id number] [place] [address] [place] Potassium [Moles/Vol] 4.2 mmol/L Normal 3.7-5.1 [facility] Comment on above: Order Comment: Speci men Type: BLOOD SPECIMENOrdering Facility: [facility] Address: [address] [place] [address] Performed By: #### 1 9123-9, ####[facility] CENTERWMALIA [id number] [place] [address] [place] Protein [Mass/Vol] 7.2 g/dL Normal 6.3-8.0 [facility] Comment on above: Order Comment: Speci men Type: BLOOD SPECIMENOrdering Facility: [facility] Address: [address] [place] [address] Performed By: #### 1 9123-9, ####[facility] CENTERWNCLIA [id number] [place] [address] [place] Sodium [Moles/Vol] 138 mmol/L Normal 136-144 [facility] Comment on above: Order Comment: Speci men Type: BLOOD SPECIMENOrdering Facility: [facility] Address: [address] [place], [place] [address] Performed By: #### 1 9123-9, ####[facility] MILLWNCLIA [id number] [place] [address] [place] Urea nitrogen [Mass/Vol] 14 mg/dL Normal 7-21 [facility] Comment on above: Order Comment: Speci men Type: BLOOD SPECIMENOrdering Facility: [facility] Address: [address] [place] [address] Performed By: #### 1 9123-9, 61659-1 ####[facility] ALISASANDRA [id number] [place] [address] [place] Magnesium SerPl-mCncon 04-25 Magnesium [Mass/Vol] 2.1 mg/dL Normal 1.7-2.3 [facility] Comment on above: Order Comment: Speci men Type: BLOOD SPECIMENOrdering Facility: [facility] Address: [address] [place] [address] Performed By: #### 1 9123-9, 93956-7 ####[facility] [id number] [place] [address] [place] MR/PAT.Checo 04-22-2025 MR/PATMIKI [facility] Medical Records Department [address] [place] [address] PAT - Anesthesia 04/22/25 1512 MR#: [id number] Acct: [id number] Name: SAL BAUTISTA Rep #: [id number] : 1950 75 From: Bernard Lowry MD PCP: Dr. 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 Hx Hospitalization Yes: 09/2024 SURGERY FOR 04/22/25 [...] take am of surgery PONV PONV - accounts receivable administrator: PONV - accounts receivable administrator Female Yes 04/22/25 14:45 HX of Motion [...] 01/10/25 10:06 Respiratory Assessment Respiratory Assessment - accounts receivable administrator: Respiratory Tract Infection Hx - accounts receivable administrator Hx Respiratory Tract Infection No 04/22/25 14:45 STOP Sleep Apnea STOP Sleep Apnea - accounts receivable administrator: STOP Sleep Apnea - accounts receivable administrator Hx Hypertension No 04/22/25 14:45 Hx Sleep [...] Tobacco Use History Tobacco Use History - accounts receivable administrator: Tobacco Use History - accounts receivable administrator Tobacco Use Smoking Status Never smoker 04/22/25 14:45 Hx Tobacco Use No 04/22/25 14:45 Years Smoking Packs Smoked per Day Smoking Cessation Date was within the last 15 years Hx Smoking Cessation Date Hx Smoking Cessation Counseling Hematologic Medial History Hematologic Hx - accounts receivable administrator: Hematologic Medical Hx - fagot maker Hx of Blood Transfusion Yes 04/22/25 14:45 [...] confused, unrespo /Reproduction History /Reproductive History - accounts receivable administrator: /Reproductive Hx- accounts receivable administrator Hx Now Gestational Age (in weeks): EDC: Hx Hx Para Hx Section SAB No 04/22/25 14:45 [facility] Medical History (Updated 04/22/25 @ 14:57 by [...] (coronary ar (more content not included)... Normal [facility] CBC W Auto Differential pane l (Bld)on 04-20-2025 Basophils (Bld) [#/Vol] 0.04 10*3/uL Normal <0.11 [facility] Comment on above: Order Comment: Speci men Type: BLOOD SPECIMENOrdering Facility: [facility] Address: [address] [place] [address] Performed By: #### 5 0185-8 ####[facility] ALISAWNCLIA [id number] [place] [address] [place] Basophils/100 WBC (Bld) 1.0 % Normal [facility] Comment on above: Order Comment: Speci men Type: BLOOD SPECIMENOrdering Facility: [facility] Address: [address] [place] [address] Performed By: #### 5 7021-8 ####[facility]OSPITALIGGYLIA [id number] [place] [address] [place] Differential cell count method Nom (Bld) Auto Normal [facility] Comment on above: Order Comment: Speci men Type: BLOOD SPECIMENOrdering Facility: [facility] Address: [address] [place] [address] Performed By: #### 5 7021-8 ####[facility] CLAY COUNTYA [id number] [place] [address] [place] Eosinophils (Bld) [#/Vol] 0.05 10*3/uL Normal <0.46 [facility] Comment on above: Order Comment: Speci men Type: BLOOD SPECIMENOrdering Facility: [facility] Address: [address] [place] [address] Performed By: #### 5 7021-8 ####[facility] CLAY COUNTYA [id number] [place] [address] [place] Eosinophils/100 WBC (Bld) 1.3 % Normal [facility] Comment on above: Order Comment: Speci men Type: BLOOD SPECIMENOrdering Facility: [facility] Address: [address] [place] [address] Performed By: #### 5 7021-8 ####[facility]ITALNCLIA [id number] [place] [address] [place] Erythrocyte distribution width (RBC) [Ratio] 18.6 % High 11.5-15.0 [facility] Comment on above: Order Comment: Speci men Type: BLOOD SPECIMENOrdering Facility: [facility] Address: [address] [place] [address] Performed By: #### 5 7021-8 ####[facility]ITALNCCEN[facility] [id number] [place] [address] [place] Hematocrit (Bld) [Volume fraction] 25.5 % Low 36.0-46.0 [facility] Comment on above: Order Comment: Speci men Type: BLOOD SPECIMENOrdering Facility: [facility] Address: [address] [place] [address] Performed By: #### 5 7021-8 ####[facility]ITALNCC[facility] [id number] [place] [address] [place] Hemoglobin (Bld) [Mass/Vol] 8.6 g/dL Low 11.5-15.5 [facility] Comment on above: Order Comment: Speci men Type: BLOOD SPECIMENOrdering Facility: [facility] Address: [address] [place] [address] Performed By: #### 5 7021-8 ####[facility] [id number] [place] [address] [place] Immature granulocytes (Bld) [#/Vol] 10*3/uL Normal <0.10 [facility] Comment on above: Order Comment: Speci men Type: BLOOD SPECIMENOrdering Facility: [facility] Address: [address] [place] [address] Performed By: #### 5 7021-8 ####[facility] [id number] [place] [address] [place] Immature granulocytes/100 WBC (Bld) 0.3 % Normal [facility] Comment on above: Order Comment: Speci men Type: BLOOD SPECIMENOrdering Facility: [facility] Address: [address] [place] [address] Performed By: #### 5 7021-8 ####[facility] MILLWNCLIA [id number] [place] [address] [place] Lymphocytes (Bld) [#/Vol] 0.90 10*3/uL Low 1.00-4.00 [facility] Comment on above: Order Comment: Speci men Type: BLOOD SPECIMENOrdering Facility: [facility] Address: [address] [place] [address] Performed By: #### 5 7021-8 ####[facility]ITALNCLIA [id number] [place] [address] [place] Lymphocytes/100 WBC (Bld) 22.7 % Normal [facility] Comment on above: Order Comment: Speci men Type: BLOOD SPECIMENOrdering Facility: [facility] Address: [address] [place] [address] Performed By: #### 5 7021-8 ####[facility]ITALNCLIA [id number] [place] [address] [place] MCH (RBC) [Entitic mass] 29.0 pg Normal 26.0-34.0 [facility] Comment on above: Order Comment: Speci men Type: BLOOD SPECIMENOrdering Facility: [facility] Address: [address] [place] [address] Performed By: #### 5 7021-8 ####[facility] MILLWNCLIA [id number] [place] [address] [place] MCHC (RBC) [Mass/Vol] 33.7 g/dL Normal 30.5-36.0 [facility] Comment on above: Order Comment: Speci men Type: BLOOD SPECIMENOrdering Facility: [facility] Address: [address] [place] [address] Performed By: #### 5 7021-8 ####[facility][1]LIA [id number] [place] [address] [place] MCV (RBC) [Entitic vol] 85.9 fL Normal 80.0-100.0 [facility] Comment on above: Order Comment: Speci men Type: BLOOD SPECIMENOrdering Facility: [facility] Address: [address] [place] [address] Performed By: #### 5 7021-8 ####[facility] [id number] [place] [address] [place] Monocytes (Bld) [#/Vol] 0.41 10*3/uL Normal <0.87 [facility] Comment on above: Order Comment: Speci men Type: BLOOD SPECIMENOrdering Facility: [facility] Address: [address] [place] [address] Performed By: #### 5 7021-8 ####[facility] [id number] [place] [address] [place] Monocytes/100 WBC (Bld) 10.4 % Normal [facility] Comment on above: Order Comment: Speci men Type: BLOOD SPECIMENOrdering Facility: [facility] Address: [address] [place] [address] Performed By: #### 5 7021-8 ####[facility] CLAY COUNTYA [id number] [place] [address] [place] Neutrophils (Bld) [#/Vol] 2.55 10*3/uL Normal 1.45-7.50 [facility] Comment on above: Order Comment: Speci men Type: BLOOD SPECIMENOrdering Facility: [facility] Address: [address] [place] [address] Performed By: #### 5 7021-8 ####[facility] CENTERLIA [id number] [place] [address] [place] Neutrophils/100 WBC (Bld) 64.3 % Normal [facility] Comment on above: Order Comment: Speci men Type: BLOOD SPECIMENOrdering Facility: [facility] Address: [address] [place] [address] Performed By: #### 5 7021-8 ####[facility] [id number] [place] [address] [place] Nucleated RBC (Bld) [#/Vol] 10*3/uL Normal <0.01 [facility] Comment on above: Order Comment: Speci men Type: BLOOD SPECIMENOrdering Facility: [facility] Address: [address] [place] [address] Performed By: #### 5 7021-8 ####[facility]ITALNCCEN[facility] [id number] [place] [address] [place] Nucleated RBC/100 WBC (Bld) [Ratio] 0.0 /[address] [facility] Comment on above: Order Comment: Speci men Type: BLOOD SPECIMENOrdering Facility: [facility] Address: [address] [place] [address] Performed By: #### 5 7021-8 ####[facility] [id number] [place] [address] [place] Platelet mean volume (Bld) [Entitic vol] 10.0 fL Normal 9.0-12.7 [facility] Comment on above: Order Comment: Speci men Type: BLOOD SPECIMENOrdering Facility: [facility] Address: [address] [place] [address] Performed By: #### 5 7021-8 ####[facility] [id number] [place] [address] [place] Platelets (Bld) [#/Vol] 42 10*3/uL Low 150-400 [facility] Comment on above: Order Comment: Speci men Type: BLOOD SPECIMENOrdering Facility: [facility] Address: [address] [place] [address] Result Comment: No c lot detected. Performed By: #### 5 7021-8 ####[facility]PITALCALVIN [id number] [place] [address] [place] RBC (Bld) [#/Vol] 2.97 10*6/uL Low 3.90-5.20 [facility] Comment on above: Order Comment: Speci men Type: BLOOD SPECIMENOrdering Facility: [facility] Address: [address] [place] [address] Performed By: #### 5 7021-8 ####[facility] CLAY COUNTYA [id number] [place] [address] [place] WBC (Bld) [#/Vol] 3.96 10*3/uL Normal 3.70-11.00 [facility] Comment on above: Order Comment: Speci men Type: BLOOD SPECIMENOrdering Facility: [facility] Address: [address] [place] [address] Performed By: #### 5 7021-8 ####[facility] [id number] [place] [address] [place] CNOVSPon 04-20-[address] [facility] Cancer Ag125 SerPl-aCncon Cancer Ag 125 Qn 10 [arb'U]/mL Normal <39 [facility] Comment on above: Order Comment: Speci men Type: BLOOD SPECIMENOrdering Facility: [facility] Address: [address] [place] [address] Result Comment: [place] 1 25 test methodology [...] (CA 125 II) [package insert V 1.0 Jamaican]. [facility], [place], [place] (July 2015) Performed By: #### 1 0334-1 ####[facility] LABCLIA [id number] [place] [address] [place] Comprehensive metabolic 2000 panelOrdered By: Natividad Talbot on 04-20-2025 Albumin [Mass/Vol] 4.4 g/dL 3.9 - 4.9 g/dL [facility] ALP [Catalytic activity/Vol] 64 U/L 34 - 123 U/L [facility] ALT [Catalytic activity/Vol] 12 U/L 7 - 38 U/L [facility] Anion gap [Moles/Vol] 13 mmol/L 8 - 15 mmol/L [facility] AST [Catalytic activity/Vol] 16 U/L 13 - 35 U/L [facility] Bilirubin [Mass/Vol] mg/dL Low 0.2 - 1 .3 mg/dL [facility] Calcium [Mass/Vol] 9.5 mg/dL 8.5 - 10. 2 mg/dL [facility] Chloride [Moles/Vol] 103 mmol/L 98 - 10 7 mmol/L [facility] CO2 [Moles/Vol] 21 mmol/L Low 22 - 30 mmol/L [facility] Creatinine [Mass/Vol] 0.89 mg/dL 0.58 - 0.96 mg/dL [facility] GFR/1.73 sq M.predicted among non-blacks MDRD (S/P/Bld) [Vol rate/Area] 69 mL/min/{1.73_m2} - PINF [facility] Comment on above: Estimated Glomerular Filtration [...] 100 mg/dL High 74 - 99 mg/dL [facility] Comment on above: The [place] Di[employer] Association (ADA) provides guidance for [...] Standards of Medical Care in Diabetes 2016, [place] [employer]. Diabetes Care. 2016.39(Suppl 1). Interpretation and review of laboratory results Abnormal [facility] Potassium [Moles/Vol] 4.4 mmol/L 3.7 - 5.1 mmol/L [facility] Protein [Mass/Vol] 6.7 g/dL 6.3 - 8.0 g/dL [facility] Sodium [Moles/Vol] 137 mmol/L 136 - 144 mmol/L [facility] Urea nitrogen [Mass/Vol] 20 mg/dL 7 - 21 mg/dL [facility] Comprehensive metabolic 2000 panelon 04-20-2025 Albumin [Mass/Vol] 4.4 g/dL Normal 3.9-4.9 [facility] Comment on above: Order Comment: Speci men Type: BLOOD SPECIMENOrdering Facility: [facility] Address: [address] [place] [address] Performed By: #### 2 4323-8 ####[facility] [id number] [place] [address] [place] [facility] ALP [Catalytic activity/Vol] 64 U/L Normal 34-123 [facility] Comment on above: Order Comment: Speci men Type: BLOOD SPECIMENOrdering Facility: [facility] Address: [address] [place] [address] Performed By: #### 2 4323-8 ####[facility] [id number] [place] [address] [place] ALT [Catalytic activity/Vol] 12 U/L Normal 7-38 [facility] Comment on above: Order Comment: Speci men Type: BLOOD SPECIMENOrdering Facility: [facility] Address: [address] [place] [address] Performed By: #### 2 4323-8 ####[facility] PATRICIO MILLTOWNCLIA [id number] [place] [address] [place] Anion gap [Moles/Vol] 13 mmol/L Normal 8-15 [facility] Comment on above: Order Comment: Speci men Type: BLOOD SPECIMENOrdering Facility: [facility] Address: [address] [place] [address] Performed By: #### 2 4323-8 ####[facility] MILLTOWNCLIA [id number] [place] [address] [place] AST [Catalytic activity/Vol] 16 U/L Normal 13-35 [facility] Comment on above: Order Comment: Speci men Type: BLOOD SPECIMENOrdering Facility: [facility] Address: [address] [place] [address] Performed By: #### 2 4323-8 ####[facility] PATRICIO MILLTOWNCLIA [id number] [place] [address] [place] Bilirubin [Mass/Vol] mg/dL Low 0.2-1.3 [facility] Comment on above: Order Comment: Speci men Type: BLOOD SPECIMENOrdering Facility: [facility] Address: [address] [place] [address] Performed By: #### 2 4323-8 ####[facility] PATRICIO MILLTOWNCLIA [id number] [place] [address] [place] Calcium [Mass/Vol] 9.5 mg/dL Normal 8.5-10.2 [facility] Comment on above: Order Comment: Speci men Type: BLOOD SPECIMENOrdering Facility: [facility] Address: [address] [place] [address] Performed By: #### 2 4323-8 ####[facility] MILLTOWNCLIA [id number] [place] [address] [place] Chloride [Moles/Vol] 103 mmol/L Normal 98-107 [facility] Comment on above: Order Comment: Speci men Type: BLOOD SPECIMENOrdering Facility: [facility] Address: [address] [place] [address] Performed By: #### 2 4323-8 ####[facility] [id number] [place] [address] [place] CO2 [Moles/Vol] 21 mmol/L Low 22-30 [facility] Comment on above: Order Comment: Speci men Type: BLOOD SPECIMENOrdering Facility: [facility] Address: [address] [place] [address] Performed By: #### 2 4323-8 ####[facility] [id number] [place] [address] [place] Creatinine [Mass/Vol] 0.89 mg/dL Normal 0.58-0.96 [facility] Comment on above: Order Comment: Speci men Type: BLOOD SPECIMENOrdering Facility: [facility] Address: [address] [place] [address] Performed By: #### 2 4323-8 ####[facility] [id number] [place] [address] [place] eGFRcr SerPlBld CKD-EPI 2020 69 mL/min/1.73m??? Normal >=60 [facility] Comment on above: Order Comment: Speci men Type: BLOOD SPECIMENOrdering Facility: [facility] Address: [address] [place] [address] Result Comment: Ethel mated Glomerular Filtration Rate [...] actual GFR. Performed By: #### 2 4323-8 ####[facility] ALISAWNCLIA [id number] [place] [address] [place] Glucose [Mass/Vol] 100 mg/dL High 74-99 [facility] Comment on above: Order Comment: Cheng cooley Type: BLOOD SPECIMENOrdering Facility: [facility] Address: [address] [place], [place] [address] Result Comment: The [place] [employer] (ADA) provides guidance for cutoff [...] Standards of Medical Care in Diabetes 2016, [place] [employer]. Diabetes Care. 2016.39(Suppl 1). Performed By: #### 2 4323-8 ####[facility]ITALNCLIA [id number] [place] [address] [place] Potassium [Moles/Vol] 4.4 mmol/L Normal 3.7-5.1 [facility] Comment on above: Order Comment: Cheng cooley Type: BLOOD SPECIMENOrdering Facility: [facility] Address: [address] [place] [address] Performed By: #### 2 4323-8 ####[facility]ITALNCLIA [id number] [place] [address] [place] Protein [Mass/Vol] 6.7 g/dL Normal 6.3-8.0 [facility] Comment on above: Order Comment: Cheng cooley Type: BLOOD SPECIMENOrdering Facility: [facility] Address: [address] [place] [address] Performed By: #### 2 4323-8 ####[facility]OSPITALNCDEMETRIO [id number] [place] [address] [place] Sodium [Moles/Vol] 137 mmol/L Normal 136-144 [facility] Comment on above: Order Comment: Speci men Type: BLOOD SPECIMENOrdering Facility: [facility] Address: [address] [place] [address] Performed By: #### 2 4323-8 ####[facility] [id number] [place] [address] [place] Urea nitrogen [Mass/Vol] 20 mg/dL Normal 7-21 [facility] Comment on above: Order Comment: Speci men Type: BLOOD SPECIMENOrdering Facility: [facility] Address: [address] [place] [address] Performed By: #### 2 4323-8 ####[facility] CENTERLIA [id number] [place] [address] [place] CBC W Auto Differential pane l (Bld)on 04-13-2025 Basophils (Bld) [#/Vol] 0.04 10*3/uL Normal <0.11 [facility] Comment on above: Order Comment: Speci men Type: BLOOD SPECIMENOrdering Facility: [facility] Address: [address] [place] [address] Performed By: #### 5 7021-8 ####[facility]ITALNCLIA [id number] [place] [address] [place] Basophils/100 WBC (Bld) 1.3 % Normal [facility] Comment on above: Order Comment: Speci men Type: BLOOD SPECIMENOrdering Facility: [facility] Address: [address] [place] [address] Performed By: #### 5 7021-8 ####[facility]PITALNCLIA [id number] [place] [address] [place] Differential cell count method Nom (Bld) Auto Normal [facility] Comment on above: Order Comment: Speci men Type: BLOOD SPECIMENOrdering Facility: [facility] Address: [address] [place] [address] Performed By: #### 5 7021-8 ####[facility] [id number] [place] [address] [place] Eosinophils (Bld) [#/Vol] 0.07 10*3/uL Normal <0.46 [facility] Comment on above: Order Comment: Speci men Type: BLOOD SPECIMENOrdering Facility: [facility] Address: [address] [place] [address] Performed By: #### 5 7021-8 ####[facility] [id number] [place] [address] [place] Eosinophils/100 WBC (Bld) 2.3 % Normal [facility] Comment on above: Order Comment: Speci men Type: BLOOD SPECIMENOrdering Facility: [facility] Address: [address] [place] [address] Performed By: #### 5 7021-8 ####[facility] [id number] [place] [address] [place] Erythrocyte distribution width (RBC) [Ratio] 18.5 % High 11.5-15.0 [facility] Comment on above: Order Comment: Speci men Type: BLOOD SPECIMENOrdering Facility: [facility] Address: [address] [place] [address] Performed By: #### 5 7021-8 ####[facility]PITALNCLIA [id number] [place] [address] [place] Hematocrit (Bld) [Volume fraction] 26.8 % Low 36.0-46.0 [facility] Comment on above: Order Comment: Speci men Type: BLOOD SPECIMENOrdering Facility: [facility] Address: [address] [place] [address] Performed By: #### 5 7021-8 ####[facility]ITALNCCEN[facility] [id number] [place] [address] [place] Hemoglobin (Bld) [Mass/Vol] 9.2 g/dL Low 11.5-15.5 [facility] Comment on above: Order Comment: Speci men Type: BLOOD SPECIMENOrdering Facility: [facility] Address: [address] [place] [address] Performed By: #### 5 7021-8 ####[facility]ITALNCCENTR[facility] [id number] [place] [address] [place] Immature granulocytes (Bld) [#/Vol] 0.03 10*3/uL Normal <0.10 [facility] Comment on above: Order Comment: Speci men Type: BLOOD SPECIMENOrdering Facility: [facility] Address: [address] [place] [address] Performed By: #### 5 7021-8 ####[facility]PITALNCLIA [id number] [place] [address] [place] Immature granulocytes/100 WBC (Bld) 1.0 % Normal [facility] Comment on above: Order Comment: Speci men Type: BLOOD SPECIMENOrdering Facility: [facility] Address: [address] [place] [address] Performed By: #### 5 7021-8 ####[facility]PITALNCLIA [id number] [place] [address] [place] Lymphocytes (Bld) [#/Vol] 0.84 10*3/uL Low 1.00-4.00 [facility] Comment on above: Order Comment: Speci men Type: BLOOD SPECIMENOrdering Facility: [facility] Address: [address] [place] [address] Performed By: #### 5 7021-8 ####[facility] ALISAOfeliaNCOPALA [id number] [place] [address] [place] Lymphocytes/100 WBC (Bld) 27.8 % Normal [facility] Comment on above: Order Comment: Speci men Type: BLOOD SPECIMENOrdering Facility: [facility] Address: [address] [place] [address] Performed By: #### 5 7021-8 ####[facility] ALISAARAPAHONCOPALA [id number] [place] [address] [place] MCH (RBC) [Entitic mass] 29.6 pg Normal 26.0-34.0 [facility] Comment on above: Order Comment: Speci men Type: BLOOD SPECIMENOrdering Facility: [facility] Address: [address] [place] [address] Performed By: #### 5 7021-8 ####[facility]PITALNCLIA [id number] [place] [address] [place] MCHC (RBC) [Mass/Vol] 34.3 g/dL Normal 30.5-36.0 [facility] Comment on above: Order Comment: Speci men Type: BLOOD SPECIMENOrdering Facility: [facility] Address: [address] [place] [address] Performed By: #### 5 7021-8 ####[facility]PITALNCLIA [id number] [place] [address] [place] MCV (RBC) [Entitic vol] 86.2 fL Normal 80.0-100.0 [facility] Comment on above: Order Comment: Speci men Type: BLOOD SPECIMENOrdering Facility: [facility] Address: [address] [place] [address] Performed By: #### 5 7021-8 ####[facility]PITALNCLIA [id number] [place] [address] [place] Monocytes (Bld) [#/Vol] 0.27 10*3/uL Normal <0.87 [facility] Comment on above: Order Comment: Speci men Type: BLOOD SPECIMENOrdering Facility: [facility] Address: [address] [place] [address] Performed By: #### 5 7021-8 ####[facility] CLAY COUNTYA [id number] [place] [address] [place] Monocytes/100 WBC (Bld) 8.9 % Normal [facility] Comment on above: Order Comment: Speci men Type: BLOOD SPECIMENOrdering Facility: [facility] Address: [address] [place] [address] Performed By: #### 5 7021-8 ####[facility] CLAY COUNTYA [id number] [place] [address] [place] Neutrophils (Bld) [#/Vol] 1.77 10*3/uL Normal 1.45-7.50 [facility] Comment on above: Order Comment: Speci men Type: BLOOD SPECIMENOrdering Facility: [facility] Address: [address] [place] [address] Performed By: #### 5 7021-8 ####[facility] CENTERLIA [id number] [place] [address] [place] Neutrophils/100 WBC (Bld) 58.7 % Normal [facility] Comment on above: Order Comment: Speci men Type: BLOOD SPECIMENOrdering Facility: [facility] Address: [address] [place] [address] Performed By: #### 5 7021-8 ####[facility] CENTERLIA [id number] [place] [address] [place] Nucleated RBC (Bld) [#/Vol] 10*3/uL Normal <0.01 [facility] Comment on above: Order Comment: Speci men Type: BLOOD SPECIMENOrdering Facility: [facility] Address: [address] [place] [address] Performed By: #### 5 7021-8 ####[facility]OSPITALNCLI [id number] [place] [address] [place] Nucleated RBC/100 WBC (Bld) [Ratio] 0.0 /[address] [facility] Comment on above: Order Comment: Speci men Type: BLOOD SPECIMENOrdering Facility: [facility] Address: [address] [place] [address] Performed By: #### 5 7021-8 ####[facility]ITALNCCENTR[facility] [id number] [place] [address] [place] Platelet mean volume (Bld) [Entitic vol] 10.0 fL Normal 9.0-12.7 [facility] Comment on above: Order Comment: Speci men Type: BLOOD SPECIMENOrdering Facility: [facility] Address: [address] [place] [address] Performed By: #### 5 7021-8 ####[facility] CLAY COUNTYA [id number] [place] [address] [place] Platelets (Bld) [#/Vol] 23 10*3/uL Low 150-400 [facility] Comment on above: Order Comment: Speci men Type: BLOOD SPECIMENOrdering Facility: [facility] Address: [address] [place] [address] Result Comment: No c lot detected. Performed By: #### 5 7021-8 ####[facility] [id number] [place] [address] [place] RBC (Bld) [#/Vol] 3.11 10*6/uL Low 3.90-5.20 [facility] Comment on above: Order Comment: Speci men Type: BLOOD SPECIMENOrdering Facility: [facility] Address: [address] [place] [address] Performed By: #### 5 7021-8 ####[facility] [id number] [place] [address] [place] WBC (Bld) [#/Vol] 3.02 10*3/uL Low 3.70-11.00 [facility] Comment on above: Order Comment: Speci men Type: BLOOD SPECIMENOrdering Facility: [facility] Address: [address] [place] [address] Performed By: #### 5 7021-8 ####[facility] [id number] [place] [address] [place] CNPNon 04-13-[address] [facility] CBC W Auto Differential pane l (Bld)on 04-06-2025 Basophils (Bld) [#/Vol] 10*3/uL Normal <0.11 [facility] Comment on above: Order Comment: Speci men Type: BLOOD SPECIMENOrdering Facility: [facility] Address: [address] [place] [address] Performed By: #### 5 7021-8 ####[facility] [id number] [place] [address] [place] Basophils/100 WBC (Bld) 0.7 % Normal [facility] Comment on above: Order Comment: Speci men Type: BLOOD SPECIMENOrdering Facility: [facility] Address: [address] [place] [address] Performed By: #### 5 7021-8 ####[facility] [id number] [place] [address] [place] Differential cell count method Nom (Bld) Auto Normal [facility] Comment on above: Order Comment: Speci men Type: BLOOD SPECIMENOrdering Facility: [facility] Address: [address] [place] [address] Performed By: #### 5 7021-8 ####[facility] MILLWNCLIA [id number] [place] [address] [place] Eosinophils (Bld) [#/Vol] 0.04 10*3/uL Normal <0.46 [facility] Comment on above: Order Comment: Speci men Type: BLOOD SPECIMENOrdering Facility: [facility] Address: [address] [place] [address] Performed By: #### 5 7021-8 ####[facility] CENTERWNCLIA [id number] [place] [address] [place] Eosinophils/100 WBC (Bld) 1.4 % Normal [facility] Comment on above: Order Comment: Speci men Type: BLOOD SPECIMENOrdering Facility: [facility] Address: [address] [place] [address] Performed By: #### 5 7021-8 ####[facility] CENTERLIA [id number] [place] [address] [place] Erythrocyte distribution width (RBC) [Ratio] 19.1 % High 11.5-15.0 [facility] Comment on above: Order Comment: Speci men Type: BLOOD SPECIMENOrdering Facility: [facility] Address: [address] [place] [address] Performed By: #### 5 7021-8 ####[facility] MILLWNCLIA [id number] [place] [address] [place] Hematocrit (Bld) [Volume fraction] 28.4 % Low 36.0-46.0 [facility] Comment on above: Order Comment: Speci men Type: BLOOD SPECIMENOrdering Facility: [facility] Address: [address] [place] [address] Performed By: #### 5 7021-8 ####[facility] MILLWNCLIA [id number] [place] [address] [place] Hemoglobin (Bld) [Mass/Vol] 9.4 g/dL Low 11.5-15.5 [facility] Comment on above: Order Comment: Speci men Type: BLOOD SPECIMENOrdering Facility: [facility] Address: [address] [place] [address] Performed By: #### 5 7021-8 ####[facility] CLAY COUNTYA [id number] [place] [address] [place] Immature granulocytes (Bld) [#/Vol] 10*3/uL Normal <0.10 [facility] Comment on above: Order Comment: Speci men Type: BLOOD SPECIMENOrdering Facility: [facility] Address: [address] [place] [address] Performed By: #### 5 7021-8 ####[facility] [id number] [place] [address] [place] Immature granulocytes/100 WBC (Bld) 0.4 % Normal [facility] Comment on above: Order Comment: Speci men Type: BLOOD SPECIMENOrdering Facility: [facility] Address: [address] [place] [address] Performed By: #### 5 7021-8 ####[facility] CLAY COUNTYA [id number] [place] [address] [place] Lymphocytes (Bld) [#/Vol] 0.66 10*3/uL Low 1.00-4.00 [facility] Comment on above: Order Comment: Speci men Type: BLOOD SPECIMENOrdering Facility: [facility] Address: [address] [place] [address] Performed By: #### 5 7021-8 ####[facility] CENTERLIA [id number] [place] [address] [place] Lymphocytes/100 WBC (Bld) 23.2 % Normal [facility] Comment on above: Order Comment: Speci men Type: BLOOD SPECIMENOrdering Facility: [facility] Address: [address] [place] [address] Performed By: #### 5 7021-8 ####[facility] ALISAOfeliaNCDEMETRIO [id number] [place] [address] [place] MCH (RBC) [Entitic mass] 29.1 pg Normal 26.0-34.0 [facility] Comment on above: Order Comment: Speci men Type: BLOOD SPECIMENOrdering Facility: [facility] Address: [address] [place] [address] Performed By: #### 5 7021-8 ####[facility]ITALNCCENTR[facility] [id number] [place] [address] [place] MCHC (RBC) [Mass/Vol] 33.1 g/dL Normal 30.5-36.0 [facility] Comment on above: Order Comment: Speci men Type: BLOOD SPECIMENOrdering Facility: [facility] Address: [address] [place] [address] Performed By: #### 5 7021-8 ####[facility]ITALNCLIA [id number] [place] [address] [place] MCV (RBC) [Entitic vol] 87.9 fL Normal 80.0-100.0 [facility] Comment on above: Order Comment: Speci men Type: BLOOD SPECIMENOrdering Facility: [facility] Address: [address] [place] [address] Performed By: #### 5 7021-8 ####[facility]PITALNCLIA [id number] [place] [address] [place] Monocytes (Bld) [#/Vol] 0.20 10*3/uL Normal <0.87 [facility] Comment on above: Order Comment: Speci men Type: BLOOD SPECIMENOrdering Facility: [facility] Address: [address] [place] [address] Performed By: #### 5 7021-8 ####[facility] ALISAARAPAHOIGGYLIA [id number] [place] [address] [place] Monocytes/100 WBC (Bld) 7.0 % Normal [facility] Comment on above: Order Comment: Speci men Type: BLOOD SPECIMENOrdering Facility: [facility] Address: [address] [place] [address] Performed By: #### 5 7021-8 ####[facility] CENTERLIA [id number] [place] [address] [place] Neutrophils (Bld) [#/Vol] 1.92 10*3/uL Normal 1.45-7.50 [facility] Comment on above: Order Comment: Speci men Type: BLOOD SPECIMENOrdering Facility: [facility] Address: [address] [place] [address] Performed By: #### 5 7021-8 ####[facility] CENTERLIA [id number] [place] [address] [place] Neutrophils/100 WBC (Bld) 67.3 % Normal [facility] Comment on above: Order Comment: Speci men Type: BLOOD SPECIMENOrdering Facility: [facility] Address: [address] [place] [address] Performed By: #### 5 7021-8 ####[facility] CENTERLIA [id number] [place] [address] [place] Nucleated RBC (Bld) [#/Vol] 10*3/uL Normal <0.01 [facility] Comment on above: Order Comment: Speci men Type: BLOOD SPECIMENOrdering Facility: [facility] Address: [address] [place] [address] Performed By: #### 5 7021-8 ####[facility] CENTERLIA [id number] [place] [address] [place] Nucleated RBC/100 WBC (Bld) [Ratio] 0.0 /[address] [facility] Comment on above: Order Comment: Speci men Type: BLOOD SPECIMENOrdering Facility: [facility] Address: [address] [place] [address] Performed By: #### 5 7021-8 ####[facility]OSPITALCALVIN [id number] [place] [address] [place] Platelet mean volume (Bld) [Entitic vol] 9.0 fL Normal 9.0-12.7 [facility] Comment on above: Order Comment: Speci men Type: BLOOD SPECIMENOrdering Facility: [facility] Address: [address] [place] [address] Performed By: #### 5 7021-8 ####[facility] HOSPITALIGGYBoo [id number] [place] [address] [place] Platelets (Bld) [#/Vol] 114 10*3/uL Low 150-400 [facility] Comment on above: Order Comment: Speci men Type: BLOOD SPECIMENOrdering Facility: [facility] Address: [address] [place] [address] Performed By: #### 5 7021-8 ####[facility] CLAY COUNTYA [id number] [place] [address] [place] RBC (Bld) [#/Vol] 3.23 10*6/uL Low 3.90-5.20 [facility] Comment on above: Order Comment: Speci men Type: BLOOD SPECIMENOrdering Facility: [facility] Address: [address] [place] [address] Performed By: #### 5 7021-8 ####[facility]PITALNCLIA [id number] [place] [address] [place] WBC (Bld) [#/Vol] 2.85 10*3/uL Low 3.70-11.00 [facility] Comment on above: Order Comment: Speci men Type: BLOOD SPECIMENOrdering Facility: [facility] Address: [address] [place] [address] Performed By: #### 5 7021-8 ####[facility] CLAY COUNTYA [id number] [place] [address] [place] CNPNon 03-31-[address] [facility] CBC W Auto Differential pane l (Bld)on 03-30-2025 Basophils (Bld) [#/Vol] 0.03 10*3/uL Normal <0.11 [facility] Comment on above: Order Comment: Speci men Type: BLOOD SPECIMENOrdering Facility: [facility] Address: [address] [place] [address] Performed By: #### 5 7021-8, 26601-3 ####[facility] COUNTYBoo [id number] [place] [address] [place] Basophils/100 WBC (Bld) 1.0 % Normal [facility] Comment on above: Order Comment: Speci men Type: BLOOD SPECIMENOrdering Facility: [facility] Address: [address] [place] [address] Performed By: #### 5 7021-8, 08417-0 ####[facility]ITAL[facility]GY[facility] [id number] [place] [address] [place] Differential cell count method Nom (Bld) Auto Normal [facility] Comment on above: Order Comment: Speci men Type: BLOOD SPECIMENOrdering Facility: [facility] Address: [address] [place] [address] Performed By: #### 5 7021-8, 29391-6 ####[facility] HOSPITALIGGYLIA [id number] [place] [address] [place] Eosinophils (Bld) [#/Vol] 0.04 10*3/uL Normal <0.46 [facility] Comment on above: Order Comment: Speci men Type: BLOOD SPECIMENOrdering Facility: [facility] Address: [address] [place] [address] Performed By: #### 5 7021-8, 74618-0 ####[facility]ITALNCCEN[facility] [id number] [place] [address] [place] Eosinophils/100 WBC (Bld) 1.3 % Normal [facility] Comment on above: Order Comment: Speci men Type: BLOOD SPECIMENOrdering Facility: [facility] Address: [address] [place] [address] Performed By: #### 5 7021-8, 48877-9 ####[facility] [id number] [place] [address] [place] Erythrocyte distribution width (RBC) [Ratio] 19.8 % High 11.5-15.0 [facility] Comment on above: Order Comment: Speci men Type: BLOOD SPECIMENOrdering Facility: [facility] Address: [address] [place] [address] Performed By: #### 5 7021-8, 08898-1 ####[facility] [id number] [place] [address] [place] Hematocrit (Bld) [Volume fraction] 28.9 % Low 36.0-46.0 [facility] Comment on above: Order Comment: Speci men Type: BLOOD SPECIMENOrdering Facility: [facility] Address: [address] [place] [address] Performed By: #### 5 7021-8, 29663-0 ####[facility] HOSPITALNCA [id number] [place] [address] [place] Hemoglobin (Bld) [Mass/Vol] 9.5 g/dL Low 11.5-15.5 [facility] Comment on above: Order Comment: Speci men Type: BLOOD SPECIMENOrdering Facility: [facility] Address: [address] [place] [address] Performed By: #### 5 7021-8, 86753-1 ####[facility] PATRICIO LUIGI [id number] [place] [address] [place] Immature granulocytes (Bld) [#/Vol] 10*3/uL Normal <0.10 [facility] Comment on above: Order Comment: Speci men Type: BLOOD SPECIMENOrdering Facility: [facility] Address: [address] [place] [address] Performed By: #### 5 7021-8, 20037-3 ####[facility]OSPITALIGGYBoo [id number] [place] [address] [place] Immature granulocytes/100 WBC (Bld) 0.3 % Normal [facility] Comment on above: Order Comment: Speci men Type: BLOOD SPECIMENOrdering Facility: [facility] Address: [address] [place] [address] Performed By: #### 5 7021-8, 96171-5 ####[facility] HOSPITALKATERINA [id number] [place] [address] [place] Lymphocytes (Bld) [#/Vol] 0.59 10*3/uL Low 1.00-4.00 [facility] Comment on above: Order Comment: Speci men Type: BLOOD SPECIMENOrdering Facility: [facility] Address: [address] [place] [address] Performed By: #### 5 7021-8, 44259-9 ####[facility] CLAY COUNTYA [id number] [place] [address] [place] Lymphocytes/100 WBC (Bld) 19.5 % Normal [facility] Comment on above: Order Comment: Speci men Type: BLOOD SPECIMENOrdering Facility: [facility] Address: [address] [place], [place] [address] Performed By: #### 5 7021-8, 82164-6 ####[facility] ALISASANDRA [id number] [place] [address] [place] MCH (RBC) [Entitic mass] 29.1 pg Normal 26.0-34.0 [facility] Comment on above: Order Comment: Speci men Type: BLOOD SPECIMENOrdering Facility: [facility] Address: [address] [place] [address] Performed By: #### 5 7021-8, 13643-9 ####[facility] HOSPITALCALVIN [id number] [place] [address] [place] MCHC (RBC) [Mass/Vol] 32.9 g/dL Normal 30.5-36.0 [facility] Comment on above: Order Comment: Speci men Type: BLOOD SPECIMENOrdering Facility: [facility] Address: [address] [place] [address] Performed By: #### 5 7021-8, 92290-1 ####[facility] HOSPITALIGGYA [id number] [place] [address] [place] MCV (RBC) [Entitic vol] 88.4 fL Normal 80.0-100.0 [facility] Comment on above: Order Comment: Speci men Type: BLOOD SPECIMENOrdering Facility: [facility] Address: [address] [place] [address] Performed By: #### 5 7021-8, 57859-1 ####[facility] CLAY COUNTYA [id number] [place] [address] [place] [facility] [place] Monocytes (Bld) [#/Vol] 0.29 10*3/uL Normal <0.87 [facility] Comment on above: Order Comment: Speci men Type: BLOOD SPECIMENOrdering Facility: [facility] Address: [address] [place] [address] Performed By: #### 5 7021-8, 33266-4 ####[facility] MILLTOWNCLIA [id number] [place] [address] [place] Monocytes/100 WBC (Bld) 9.6 % Normal [facility] Comment on above: Order Comment: Speci men Type: BLOOD SPECIMENOrdering Facility: [facility] Address: [address] [place] [address] Performed By: #### 5 7021-8, 38191-4 ####[facility] ALISAWNCLIA [id number] [place] [address] [place] Neutrophils (Bld) [#/Vol] 2.06 10*3/uL Normal 1.45-7.50 [facility] Comment on above: Order Comment: Speci men Type: BLOOD SPECIMENOrdering Facility: [facility] Address: [address] [place] [address] Performed By: #### 5 7021-8, 78010-7 ####[facility] HOSPITALNCLIA [id number] [place] [address] [place] Neutrophils/100 WBC (Bld) 68.3 % Normal [facility] Comment on above: Order Comment: Speci men Type: BLOOD SPECIMENOrdering Facility: [facility] Address: [address] [place] [address] Performed By: #### 5 7021-8, 12676-2 ####[facility] CENTERWNCLIA [id number] [place] [address] [place] Nucleated RBC (Bld) [#/Vol] 10*3/uL Normal <0.01 [facility] Comment on above: Order Comment: Speci men Type: BLOOD SPECIMENOrdering Facility: [facility] Address: [address] [place] [address] Performed By: #### 5 7021-8, 90059-7 ####[facility] TR[facility] HEALTH SYSTEMNCA [id number] [place] [address] [place] Nucleated RBC/100 WBC (Bld) [Ratio] 0.0 /[address] [facility] Comment on above: Order Comment: Speci men Type: BLOOD SPECIMENOrdering Facility: [facility] Address: [address] [place] [address] Performed By: #### 5 7021-8, 60183-8 ####[facility] HOSPITALCALVIN [id number] [place] [address] [place] Platelet mean volume (Bld) [Entitic vol] 9.4 fL Normal 9.0-12.7 [facility] Comment on above: Order Comment: Speci men Type: BLOOD SPECIMENOrdering Facility: [facility] Address: [address] [place] [address] Performed By: #### 5 7021-8, 74655-6 ####[facility] CLAY COUNTYBoo [id number] [place] [address] [place] Platelets (Bld) [#/Vol] 196 10*3/uL Normal 150-400 [facility] Comment on above: Order Comment: Speci men Type: BLOOD SPECIMENOrdering Facility: [facility] Address: [address] [place] [address] Performed By: #### 5 7021-8, 10141-0 ####[facility] CLAY COUNTYA [id number] [place] [address] [place] RBC (Bld) [#/Vol] 3.27 10*6/uL Low 3.90-5.20 [facility] Comment on above: Order Comment: Speci men Type: BLOOD SPECIMENOrdering Facility: [facility] Address: [address] [place] [address] Performed By: #### 5 7021-8, 47650-1 ####[facility] HOSPITALIGGYLIA [id number] [place] [id number] [place] WBC (Bld) [#/Vol] 3.02 10*3/uL Low 3.70-11.00 [facility] Comment on above: Order Comment: Speci men Type: BLOOD SPECIMENOrdering Facility: [facility] Address: [address] [place] [address] Performed By: #### 5 7021-8, 52701-8 ####[facility] [id number] [place] [address] [place] Cancer Ag125 SerPl-aCncon Cancer Ag 125 Qn 12 [arb'U]/mL Normal <39 [facility] Comment on above: Order Comment: Speci men Type: BLOOD SPECIMENOrdering Facility: [facility] Address: [address] [place] [address] Result Comment: CA 1 25 test methodology [...] (CA 125 II) [package insert V 1.0 Jamaican]. [facility], [place], [place] (July 2015) Performed By: #### 5 0190-8, 08416-2, 2276-4 ####[facility] LABCLIA [id number] [place] [id number] [place] Comprehensive metabolic 2000 panelon 03-30-2025 Albumin [Mass/Vol] 4.3 g/dL Normal 3.9-4.9 [facility] Comment on above: Order Comment: Speci men Type: BLOOD SPECIMENOrdering Facility: [facility] Address: [address] [place] [address] Performed By: #### 2 4323-8, 76190-1 ####[facility] CLAY COUNTYA [id number] [place] [address] [place] ALP [Catalytic activity/Vol] 66 U/L Normal 34-123 [facility] Comment on above: Order Comment: Speci men Type: BLOOD SPECIMENOrdering Facility: [facility] Address: [address] [place] [address] Performed By: #### 2 4323-8, 83240-5 ####[facility] MILLTOWIGGYLIA [id number] [place] [address] [place] ALT [Catalytic activity/Vol] 10 U/L Normal 7-38 [facility] Comment on above: Order Comment: Speci men Type: BLOOD SPECIMENOrdering Facility: [facility] Address: [address] [place] [address] Performed By: #### 2 4323-8, 98579-4 ####[facility] CENTERWIGGYLIA [id number] [place] [address] [place] Anion gap [Moles/Vol] 13 mmol/L Normal 8-15 [facility] Comment on above: Order Comment: Speci men Type: BLOOD SPECIMENOrdering Facility: [facility] Address: [address] [place] [address] Performed By: #### 2 4323-8, 32262-8 ####[facility] MILLEDGARWIGGYLIA [id number] [place] [address] [place] AST [Catalytic activity/Vol] 17 U/L Normal 13-35 [facility] Comment on above: Order Comment: Speci men Type: BLOOD SPECIMENOrdering Facility: [facility] Address: [address] [place] [address] Performed By: #### 2 4323-8, 29956-0 ####[facility] VENICETOWNCLIA [id number] [place] [address] [place] Bilirubin [Mass/Vol] 0.2 mg/dL Normal 0.2-1.3 [facility] Comment on above: Order Comment: Speci men Type: BLOOD SPECIMENOrdering Facility: [facility] Address: [address] [place] [address] Performed By: #### 2 4323-8, ####[facility] HOSPITALKATERINA [id number] [place] [address] [place] Calcium [Mass/Vol] 9.6 mg/dL Normal 8.5-10.2 [facility] Comment on above: Order Comment: Speci men Type: BLOOD SPECIMENOrdering Facility: [facility] Address: [address] [place] [address] Performed By: #### 2 4323-8, ####[facility] CLAY COUNTYBoo [id number] [place] [address] [place] Chloride [Moles/Vol] 102 mmol/L Normal 98-107 [facility] Comment on above: Order Comment: Speci men Type: BLOOD SPECIMENOrdering Facility: [facility] Address: [address] [place] [address] Performed By: #### 2 4323-8, ####[facility] HOSPITALKATERINA [id number] [place] [address] [place] CO2 [Moles/Vol] 20 mmol/L Low 22-30 [facility] Comment on above: Order Comment: Speci men Type: BLOOD SPECIMENOrdering Facility: [facility] Address: [address] [place] [address] Performed By: #### 2 4323-8, ####[facility] HOSPITALNCLIA [id number] [place] [address] [place] Creatinine [Mass/Vol] 1.00 mg/dL High 0.58-0.96 [facility] Comment on above: Order Comment: Speci men Type: BLOOD SPECIMENOrdering Facility: [facility] Address: [address] [place], [place] [address] Performed By: #### 2 4323-8, 92952-3 ####[facility] HOSPITALNCLIA [id number] [place] [address] [place] Creatinine and Glomerular filtration rate.predicted panel (S/P/Bld) 60 mL/min/1.73m??? Normal >=60 [facility] Comment on above: Order Comment: Cheng cooley Type: BLOOD SPECIMENOrdering Facility: [facility] Address: [address] [place] [address] Result Comment: Ethel mated Glomerular Filtration Rate [...] actual GFR. Performed By: #### 2 4323-8, 23623-7 ####[facility] CLAY COUNTYA [id number] [place] [address] [place] Glucose [Mass/Vol] 105 mg/dL High 74-99 [facility] Comment on above: Order Comment: Cheng cooley Type: BLOOD SPECIMENOrdering Facility: [facility] Address: [address] [place] [address] Result Comment: The [place] [employer] (ADA) provides guidance for cutoff [...] Standards of Medical Care in Diabetes 2016, [place] [employer]. Diabetes Care. 2016.39(Suppl 1). Performed By: #### 2 4323-8, 53558-0 ####[facility] PATRICIO ALISAMOLINA [id number] [place] [address] [place] Potassium [Moles/Vol] 4.0 mmol/L Normal 3.7-5.1 [facility] Comment on above: Order Comment: Speci men Type: BLOOD SPECIMENOrdering Facility: [facility] Address: [address] [place] [address] Performed By: #### 2 4323-8, ####[facility] ALISAMOLINA [id number] [place] [address] [place] Protein [Mass/Vol] 6.8 g/dL Normal 6.3-8.0 [facility] Comment on above: Order Comment: Speci men Type: BLOOD SPECIMENOrdering Facility: [facility] Address: [address] [place] [address] Performed By: #### 2 4323-8, ####[facility] ALISAARAPAHOCALVIN [id number] [place] [address] [place] Sodium [Moles/Vol] 135 mmol/L Low 136-144 [facility] Comment on above: Order Comment: Speci men Type: BLOOD SPECIMENOrdering Facility: [facility] Address: [address] [place] [address] Performed By: #### 2 4323-8, ####[facility] ALISAEDGARIGGYLIA [id number] [place] [address] [place] Urea nitrogen [Mass/Vol] 15 mg/dL Normal 7-21 [facility] Comment on above: Order Comment: Speci men Type: BLOOD SPECIMENOrdering Facility: [facility] Address: [address] [place] [id number] Performed By: #### 2 4323-8, 81141-7 ####[facility] PATRICIO MILLARAPAHONCLIA [id number] [place] [id number] [place] Ferritin SerPl-mCncon 2024 Ferritin [Mass/Vol] 238.0 ng/mL High 14.7-205.1 [facility] Comment on above: Order Comment: Speci men Type: BLOOD SPECIMENOrdering Facility: [facility] Address: [address] [place] [address] Performed By: #### 5 0190-8, 57511-7, 2275-4 ####[facility] LABIA [id number] [place] [address] [place] Iron and Iron binding capaci ty panelon 03-30-2025 Iron [Mass/Vol] 96 ug/dL Normal 41-186 [facility] Comment on above: Order Comment: Speci men Type: BLOOD SPECIMENOrdering Facility: [facility] Address: [address] [place] [address] Performed By: #### 5 0190-8, 19511-7, 2275-4 ####[facility] LABIA [id number] [address] [place] Iron binding capacity [Mass/Vol] 382 ug/dL Normal 232-386 [facility] Comment on above: Order Comment: Speci men Type: BLOOD SPECIMENOrdering Facility: [facility] Address: [address] [place] [address] Performed By: #### 5 0190-8, 01183-7, 2275-4 ####[facility] LABIA [id number] [place] [id number] [place] Iron/TIBC [Molar ratio] 25.1 % Normal 15.0-57.0 [facility] Comment on above: Order Comment: Speci men Type: BLOOD SPECIMENOrdering Facility: [facility] Address: [address] [place] [address] Performed By: #### 5 0190-8, 77982-3, 2276-4 ####[facility] LABCLIA [id number] [place] [address] [place] Magnesium SerPl-mCncon 03-30 Magnesium [Mass/Vol] 2.1 mg/dL Normal 1.7-2.3 [facility] Comment on above: Order Comment: Speci men Type: BLOOD SPECIMENOrdering Facility: [facility] Address: [address] [place] [address] Performed By: #### 2 4323-8, 89747-7 ####[facility]OSPITALCALVIN [id number] [place] [address] [place] Retics #on 03-30-2025 Reticulocytes (Bld) [#/Vol] 0.71769 10*3/uL Normal 0.018-0.100 [facility] Comment on above: Order Comment: Speci men Type: BLOOD SPECIMENOrdering Facility: [facility] Address: [address] [place] [address] Performed By: #### 5 7021-8, 73449-3 ####[facility]OSPITALIGGYBoo [id number] [place] [address] [place] Reticulocytes (Bld) [#/Vol]o n 03-30-2025 Reticulocytes/100 RBC (Bld) 1.3 % Normal 0.4-2.0 [facility] Comment on above: Order Comment: Speci men Type: BLOOD SPECIMENOrdering Facility: [facility] Address: [address] [place] [address] Performed By: #### 5 7021-8, 66438-3 ####[facility] HOSPITALIGGYA [id number] [place] [address] [place] CBC W Auto Differential pane l (Bld)on 03-21-2025 Anisocytosis Ql (Bld) Present Normal [facility] Comment on above: Order Comment: Speci men Type: BLOOD SPECIMENOrdering Facility: [facility] Address: [address] [place] [address] Performed By: #### 1 4196-0 ####[facility] PATRICIO MILLTOWNCLIA [id number] [place] [address] [place]#### 99816-7 ####[facility] PATRICIO MILLTOWNCLIA [id number] [address] LABORATORYCLIA [id number] [place] [address] [place] Basophils (Bld) [#/Vol] 0.03 10*3/uL Normal <0.11 [facility] Comment on above: Order Comment: Speci men Type: BLOOD SPECIMENOrdering Facility: [facility] Address: [address] [place] [address] Performed By: #### 1 4196-0 ####[facility] PATRICIO MILLTOWNCLIA [id number] [place] [address] [place]#### 33075-4 ####[facility] MILLTOWNCLIA [id number] [address] LABORATORYCLIA [id number] [place] [address] [place] Basophils/100 WBC (Bld) 0.8 % Normal [facility] Comment on above: Order Comment: Speci men Type: BLOOD SPECIMENOrdering Facility: [facility] Address: [address] [place] [place] [address] Performed By: #### 1 4196-0 ####[facility] PATRICIO MILLTOWNCLIA [id number] [place] [address] [place]#### 04934-6 ####[facility] MILLTOWNCLIA [id number] [address] LABORATORYCLIA [id number] [place] [address] [place] Dacrocytes LM Ql (Bld) Few Normal [facility] Comment on above: Order Comment: Speci men Type: BLOOD SPECIMENOrdering Facility: [facility] Address: [address] [place] [address] Performed By: #### 1 4196-0 ####[facility] MILLTOWNCLIA [id number] [place] [address] [place]#### 03537-4 ####[facility] MILLTOWNCLIA [id number] [address] LABORATORYCLIA [id number] [place] [address] [place] Differential cell count method Nom (Bld) Auto Normal [facility] Comment on above: Order Comment: Speci men Type: BLOOD SPECIMENOrdering Facility: [facility] Address: [address] [place] [address] Performed By: #### 1 4196-0 ####[facility] MILLTOWNCLIA [id number] [place] [address] [place]#### 26195-9 ####[facility] MILLTOWNCLIA [id number] [address] LABORATORYCLIA [id number] [place] [address] [place] Eosinophils (Bld) [#/Vol] 0.04 10*3/uL Normal <0.46 [facility] Comment on above: Order Comment: Speci men Type: BLOOD SPECIMENOrdering Facility: [facility] Address: [address] [place] [address] Performed By: #### 1 4196-0 ####[facility] MILLTOWNCLIA [id number] [place] [address] [place]#### 61203-5 ####[facility] MILLTOWNCLIA [id number] [address] LABORATORYCLIA [id number] [place] [address] [place] Eosinophils/100 WBC (Bld) 1.1 % Normal [facility] Comment on above: Order Comment: Speci men Type: BLOOD SPECIMENOrdering Facility: [facility] Address: [facility] [place] [address] Performed By: #### 1 4196-0 ####[facility] MILLTOWNCLIA [id number] [place] [address] [place]#### 89493-3 ####[facility] MILLTOWNCLIA [id number] [address] LABORATORYCLIA [id number] [place] [address] [place] [facility] Erythrocyte distribution width (RBC) [Ratio] 20.2 % High 11.5-15.0 [facility] Comment on above: Order Comment: Speci men Type: BLOOD SPECIMENOrdering Facility: [facility] Address: [facility] [place] [address] Performed By: #### 1 4196-0 ####[facility] MILLTOWNCLIA [id number] [place] [address] [place]#### 12788-7 ####[facility] MILLTOWNCLIA [id number] [address] LABORATORYCLIA [id number] [place] [address] [place] Hematocrit (Bld) [Volume fraction] 26.2 % Low 36.0-46.0 [facility] Comment on above: Order Comment: Speci men Type: BLOOD SPECIMENOrdering Facility: [facility] Address: [address] [place] [address] Performed By: #### 1 4196-0 ####[facility] MILLTOWNCLIA [id number] [place] [address] [place]#### 55183-5 ####[facility] MILLTOWNCLIA [id number] [address] LABORATORYCLIA [id number] [place] [address] [place] Hemoglobin (Bld) [Mass/Vol] 8.1 g/dL Low 11.5-15.5 [facility] Comment on above: Order Comment: Speci men Type: BLOOD SPECIMENOrdering Facility: [facility] Address: [address] [place] [address] Performed By: #### 1 4196-0 ####[facility]ENTERWNCLIA [id number] [address] OF [place]#### 09181-6 ####[facility] MILLTOWNCLIA [id number] [address] LABORATORYCLIA [id number] [place] [address] [place] Immature granulocytes (Bld) [#/Vol] 10*3/uL Normal <0.10 [facility] Comment on above: Order Comment: Speci men Type: BLOOD SPECIMENOrdering Facility: [facility] Address: [address] [place] [address] Performed By: #### 1 4196-0 ####[facility] MILLTOWNCLIA [id number] [place] [id number] [place]#### 44517-9 ####[facility] MILLTOWNCLIA [id number] [address] LABORATORYCLIA [id number] [place] [address] [place] Immature granulocytes/100 WBC (Bld) 0.3 % Normal [facility] Comment on above: Order Comment: Speci men Type: BLOOD SPECIMENOrdering Facility: [facility] Address: [address] [place] [address] Performed By: #### 1 4196-0 ####[facility] MILLTOWNCLIA [id number] [place] [address] [place]#### 34660-1 ####[facility] ALISAWNCLIA [id number] [address] LABORATORYCLIA [id number] [place] [address] [place] Lymphocytes (Bld) [#/Vol] 0.50 10*3/uL Low 1.00-4.00 [facility] Comment on above: Order Comment: Speci men Type: BLOOD SPECIMENOrdering Facility: [facility] Address: [address] [place] [address] Performed By: #### 1 4196-0 ####[facility] MILLTOWNCLIA [id number] [place] [address] [place]#### 45854-9 ####[facility] MILLTOWNCLIA [id number] [address] LABORATORYCLIA [id number] [place] [address] [place] Lymphocytes/100 WBC (Bld) 13.4 % Normal [facility] Comment on above: Order Comment: Speci men Type: BLOOD SPECIMENOrdering Facility: [facility] Address: [address] [place] [address] Performed By: #### 1 4196-0 ####[facility] MILLTOWNCLIA [id number] [place] [address] [place]#### 14115-8 ####[facility] MILLTOWNCLIA [id number] [address] LABORATORYCLIA [id number] [place] [address] [place] MCH (RBC) [Entitic mass] 28.2 pg Normal 26.0-34.0 [facility] Comment on above: Order Comment: Speci men Type: BLOOD SPECIMENOrdering Facility: [facility] Address: [address] [place] [address] [place] [address] Performed By: #### 1 4196-0 ####[facility] MILLTOWNCLIA [id number] [place] [address] [place]#### 24496-3 ####[facility] MILLTOWNCLIA [id number] [address] LABORATORYCLIA [id number] [place] [address] [place] MCHC (RBC) [Mass/Vol] 30.9 g/dL Normal 30.5-36.0 [facility] Comment on above: Order Comment: Speci men Type: BLOOD SPECIMENOrdering Facility: [facility] Address: [facility] [place] [id number] Performed By: #### 1 4196-0 ####[facility] MILLTOWNCLIA [id number] [place] [address] [place]#### 16668-3 ####[facility] MILLTOWNCLIA [id number] [address] LABORATORYCLIA [id number] [place] [address] [place] MCV (RBC) [Entitic vol] 91.3 fL Normal 80.0-100.0 [facility] Comment on above: Order Comment: Speci men Type: BLOOD SPECIMENOrdering Facility: [facility] Address: [address] [place] [address] Performed By: #### 1 4196-0 ####[facility] MILLTOWNCLIA [id number] [address] OF [place]#### 41655-5 ####[facility] VENICETOWNCLIA [id number] [address] LABORATORYCLIA [id number] [address] OF [place] Monocytes (Bld) [#/Vol] 0.34 10*3/uL Normal <0.87 [facility] Comment on above: Order Comment: Speci men Type: BLOOD SPECIMENOrdering Facility: [facility] Address: [address] [place] [address] Performed By: #### 1 4196-0 ####[facility] MILLTOWNCLIA [id number] [address] OF [place]#### 00259-8 ####[facility] MILLTOWNCLIA [id number] [address] LABORATORYCLIA [id number] [address] OF [place] Monocytes/100 WBC (Bld) 9.1 % Normal [facility] Comment on above: Order Comment: Speci men Type: BLOOD SPECIMENOrdering Facility: [facility] Address: [address] [place], [place] [address] Performed By: #### 1 4196-0 ####[facility] MILLTOWNCLIA [id number] [place] [address] [place]#### 57762-8 ####[facility] MILLTOWNCLIA [id number] [address] LABORATORYCLIA [id number] [place] [address] [place] Neutrophils (Bld) [#/Vol] 2.81 10*3/uL Normal 1.45-7.50 [facility] Comment on above: Order Comment: Speci men Type: BLOOD SPECIMENOrdering Facility: [facility] Address: [address] [place] [address] Performed By: #### 1 4196-0 ####[facility] MILLTOWNCLIA [id number] [place] [address] [place]#### 96473-9 ####[facility] MILLTOWNCLIA [id number] [address] LABORATORYCLIA [id number] [address] STATES [place] Neutrophils/100 WBC (Bld) 75.3 % Normal [facility] Comment on above: Order Comment: Speci men Type: BLOOD SPECIMENOrdering Facility: [facility] Address: [address] [place] [address] Performed By: #### 1 4196-0 ####[facility] MILLTOWNCLIA [id number] [place] [address] [place]#### 20639-7 ####[facility] MILLTOWNCLIA [id number] [address] LABORATORYCLIA [id number] [place] [address] [place] Nucleated RBC (Bld) [#/Vol] 10*3/uL Normal <0.01 [facility] Comment on above: Order Comment: Speci men Type: BLOOD SPECIMENOrdering Facility: [facility] Address: [address] [place] [address] Performed By: #### 1 4196-0 ####[facility] MILLTOWNCLIA [id number] [place] [address] [place]#### 52235-7 ####[facility] MILLTOWNCLIA [id number] [address] LABORATORYCLIA [id number] [place] [address] [place] Nucleated RBC/100 WBC (Bld) [Ratio] 0.0 /[address] [facility] Comment on above: Order Comment: Speci men Type: BLOOD SPECIMENOrdering Facility: [facility] Address: [address] [place] [address] Performed By: #### 1 4196-0 ####[facility] MILLTOWNCLIA [id number] [place] [address] [place]#### 01948-7 ####[facility] MILLTOWNCLIA [id number] [address] LABORATORYCLIA [id number] [place] [address] [place] Ovalocytes LM Ql (Bld) Few Normal [facility] Comment on above: Order Comment: Speci men Type: BLOOD SPECIMENOrdering Facility: [facility] Address: [address] [place] [address] Performed By: #### 1 4196-0 ####[facility] MILLTOWNCLIA [id number] [address] OF [place]#### 54845-7 ####[facility] SUNDARWNCLIA [id number] [address] LABORATORYCLIA [id number] [place] [address] [place] Platelet mean volume (Bld) [Entitic vol] 10.4 fL Normal 9.0-12.7 [facility] Comment on above: Order Comment: Speci men Type: BLOOD SPECIMENOrdering Facility: [facility] Address: [address] [place] [address] Performed By: #### 1 4196-0 ####[facility] ALISAWIGGYLIA [id number] [address]#### 54787-2 ####[facility] HOSPITALIGGYLIA [id number] [address] LABORATORYCLIA [id number] [place] [address] [place] Platelets (Bld) [#/Vol] 217 10*3/uL Normal 150-400 [facility] Comment on above: Order Comment: Speci men Type: BLOOD SPECIMENOrdering Facility: [facility] Address: [address] [place] [address] Result Comment: No c lot detected. Performed By: #### 1 4196-0 ####[facility] ALISAWNCLIA [id number] [place] [address] [place]#### 38788-9 ####[facility] CENTERWNCLIA [id number] [address] LABORATORYCLIA [id number] [place] [address] [place] Platelets Estimate (Bld) [#/Vol] Adequate Normal [facility] Comment on above: Order Comment: Speci men Type: BLOOD SPECIMENOrdering Facility: [facility] Address: [facility] [place] [address] Performed By: #### 1 4196-0 ####[facility] MILLTOWNCLIA [id number] [place] [address] [place]#### 90660-7 ####[facility] MILLTOWNCLIA [id number] [address] LABORATORYCLIA [id number] [place] [address] [place] Polychromasia LM Ql (Bld) Slight Normal [facility] Comment on above: Order Comment: Speci men Type: BLOOD SPECIMENOrdering Facility: [facility] Address: [address] [place] [address] Performed By: #### 1 4196-0 ####[facility] MILLTOWNCLIA [id number] [place] [address] [place]#### 99354-8 ####[facility] MILLTOWNCLIA [id number] [address] LABORATORYCLIA [id number] [place] [address] [place] RBC (Bld) [#/Vol] 2.87 10*6/uL Low 3.90-5.20 [facility] Comment on above: Order Comment: Speci men Type: BLOOD SPECIMENOrdering Facility: [facility] Address: [address] [place] [address] Performed By: #### 1 4196-0 ####[facility] MILLTOWNCLIA [id number] [place] [address] [place]#### 28523-2 ####[facility] MILLTOWNCLIA [id number] [address] LABORATORYCLIA [id number] [address] RBC FRAGMENTS Few Abnormal None Seen [facility] Comment on above: Order Comment: Speci men Type: BLOOD SPECIMENOrdering Facility: [facility] Address: [address] [place] [address] Performed By: #### 1 4196-0 ####[facility] MILLTOWNCLIA [id number] [place] [address] [place]#### 69130-6 ####[facility] MILLTOWNCLIA [id number] [address] LABORATORYCLIA [id number] [place] [address] [place] [facility] RED CELL MORPH Reviewed: see result s of individual morphologies Normal [facility] Comment on above: Order Comment: Speci men Type: BLOOD SPECIMENOrdering Facility: [facility] Address: [address] [place] [address] Performed By: #### 1 4196-0 ####[facility] MILLTOWNCLIA [id number] [place] [address] [place]#### 63160-9 ####[facility] MILLTOWNCLIA [id number] [address] LABORATORYCLIA [id number] [address] [place] WBC (Bld) [#/Vol] 3.73 10*3/uL Normal 3.70-11.00 [facility] Comment on above: Order Comment: Speci men Type: BLOOD SPECIMENOrdering Facility: [facility] Address: [address] [place] [address] Performed By: #### 1 4196-0 ####[facility] MILLTOWNCLIA [id number] [place] [address] [place]#### 00343-5 ####[facility] MILLTOWNCLIA [id number] [place] [id number] [facility] LABORATORYCLIA [id number] [place] [address] [place] Ferritin SerPl-mCncon 2024 Ferritin [Mass/Vol] 308.0 ng/mL High 14.7-205.1 [facility] Comment on above: Order Comment: Speci men Type: BLOOD SPECIMENOrdering Facility: [facility] Address: [address] [place] [address] Performed By: #### 5 0190-8, 2275- ####[facility] LABCLIA [id number] [place] [address] [place] Iron and Iron binding capaci ty panelon 03-21-2025 Iron [Mass/Vol] 579 ug/dL High 41-186 [facility] Comment on above: Order Comment: Speci men Type: BLOOD SPECIMENOrdering Facility: [facility] Address: [address] [place] [address] Performed By: #### 5 0190-8, 2276-01 ####[facility] LABCLIA [id number] [address] [place] Iron binding capacity [Mass/Vol] 763 ug/dL High 232-386 [facility] Comment on above: Order Comment: Speci men Type: BLOOD SPECIMENOrdering Facility: [facility] Address: [address] [place] [address] Performed By: #### 5 0190-8, 2275- ####[facility] LABCLIA [id number] [place] [address] [place] Iron/TIBC [Molar ratio] 75.9 % High 15.0-57.0 [facility] Comment on above: Order Comment: Speci men Type: BLOOD SPECIMENOrdering Facility: [facility] Address: [address] [place] [address] Performed By: #### 5 0190-8, 2276-4 ####[facility] LABCLIA [id number] [place] [address] [place] Retics #on 03-21-2025 Reticulocytes (Bld) [#/Vol] 0.34620 10*3/uL High 0.018-0.100 [facility] Comment on above: Order Comment: Speci men Type: BLOOD SPECIMENOrdering Facility: [facility] Address: [address] [place] [address] Performed By: #### 1 4196-0 ####[facility] MILLTOWNCLIA [id number] [place] [address] [place]#### 64959-4 ####[facility] MILLTOWNCLIA [id number] [address] LABORATORYCLIA [id number] [address] Reticulocytes (Bld) [#/Vol]o n 03-21-2025 Reticulocytes/100 RBC (Bld) 3.9 % High 0.4-2.0 [facility] Comment on above: Order Comment: Speci men Type: BLOOD SPECIMENOrdering Facility: [facility] Address: [address] [place] [address] Performed By: #### 1 4196-0 ####[facility] MILLTOWNCLIA [id number] [place] [address] [place]#### 33165-3 ####[facility] MILLTOWNCLIA [id number] [place] [id number] [place] [address] LABORATORYCLIA [id number] [address] 03-18-2025 [facility]25 CNPN Telephone (GYNML) -- LILYSAL RUIZ ([id number]) 1950 F Date Time Provider Department 03/09/25 CAREY ELIAS GYN During your visit today, we recorded the following information about you: Carey Elias APRN.CLAMP OPERATOR 03/09/2025 1:34 PM Signed Patient called office [...] relay message and get recs. Carey Elias APRN.CLAMP OPERATOR Allergies As of Date: 03/09/2025 (No Known Allergies) Date Reviewed: 03/09/2025 Reviewed by: Tarsha Silvestre, RN - Fully Assessed Reason for Visit: Patient [...] Status:Closed by CAREY ELIAS on 04/20/25 Normal [facility] CBC W Auto Differential pane l (Bld)on 03-02-2025 Basophils (Bld) [#/Vol] 10*3/uL Normal <0.11 [facility] Comment on above: Order Comment: Speci men Type: BLOOD SPECIMENOrdering Facility: [facility] Address: [address] [place] [address] Performed By: #### 5 7021-8 ####[facility] PATRICIOELYRIA MEMORIAL HOSPITALBoo [id number] [place] [address] [place] Basophils/100 WBC (Bld) 0.5 % Normal [facility] Comment on above: Order Comment: Speci men Type: BLOOD SPECIMENOrdering Facility: [facility] Address: [address] [place] [address] Performed By: #### 5 7021-8 ####[facility] [id number] [place] [address] [place] Differential cell count method Nom (Bld) Auto Normal [facility] Comment on above: Order Comment: Speci men Type: BLOOD SPECIMENOrdering Facility: [facility] Address: [address] [place] [address] Performed By: #### 5 7021-8 ####[facility] [id number] [place] [address] [place] Eosinophils (Bld) [#/Vol] 0.04 10*3/uL Normal <0.46 [facility] Comment on above: Order Comment: Speci men Type: BLOOD SPECIMENOrdering Facility: [facility] Address: [address] [place] [address] Performed By: #### 5 7021-8 ####[facility] [id number] [place] [address] [place] Eosinophils/100 WBC (Bld) 1.0 % Normal [facility] Comment on above: Order Comment: Speci men Type: BLOOD SPECIMENOrdering Facility: [facility] Address: [address] [place] [address] Performed By: #### 5 7021-8 ####[facility] [id number] [place] [address] [place] Erythrocyte distribution width (RBC) [Ratio] 14.4 % Normal 11.5-15.0 [facility] Comment on above: Order Comment: Speci men Type: BLOOD SPECIMENOrdering Facility: [facility] Address: [address] [place] [address] Performed By: #### 5 7021-8 ####[facility] ALISAWNCLIA [id number] [place] [address] [place] Hematocrit (Bld) [Volume fraction] 26.1 % Low 36.0-46.0 [facility] Comment on above: Order Comment: Speci men Type: BLOOD SPECIMENOrdering Facility: [facility] Address: [address] [place] [address] Performed By: #### 5 7021-8 ####[facility] CENTERLIA [id number] [place] [address] [place] Hemoglobin (Bld) [Mass/Vol] 8.1 g/dL Low 11.5-15.5 [facility] Comment on above: Order Comment: Speci men Type: BLOOD SPECIMENOrdering Facility: [facility] Address: [address] [place] [address] Performed By: #### 5 7021-8 ####[facility] CLAY COUNTYA [id number] [place] [address] [place] Immature granulocytes (Bld) [#/Vol] 10*3/uL Normal <0.10 [facility] Comment on above: Order Comment: Speci men Type: BLOOD SPECIMENOrdering Facility: [facility] Address: [address] [place] [address] Performed By: #### 5 7021-8 ####[facility] CENTERLIA [id number] [place] [address] [place] Immature granulocytes/100 WBC (Bld) 0.2 % Normal [facility] Comment on above: Order Comment: Speci men Type: BLOOD SPECIMENOrdering Facility: [facility] Address: [address] [place] [address] Performed By: #### 5 7021-8 ####[facility] MED[facility] CENTERLIA [id number] [place] [address] [place] Lymphocytes (Bld) [#/Vol] 0.73 10*3/uL Low 1.00-4.00 [facility] Comment on above: Order Comment: Speci men Type: BLOOD SPECIMENOrdering Facility: [facility] Address: [address] [place] [address] Performed By: #### 5 7021-8 ####[facility] [id number] [place] [address] [place] Lymphocytes/100 WBC (Bld) 17.8 % Normal [facility] Comment on above: Order Comment: Speci men Type: BLOOD SPECIMENOrdering Facility: [facility] Address: [address] [place] [address] Performed By: #### 5 7021-8 ####[facility] HOSPITALNCLI [id number] [address] [place] MCH (RBC) [Entitic mass] 27.5 pg Normal 26.0-34.0 [facility] Comment on above: Order Comment: Speci men Type: BLOOD SPECIMENOrdering Facility: [facility] Address: [address] [place] [address] Performed By: #### 5 7021-8 ####[facility]OSPITALNCLIA [id number] [place] [address] [place] MCHC (RBC) [Mass/Vol] 31.0 g/dL Normal 30.5-36.0 [facility] Comment on above: Order Comment: Speci men Type: BLOOD SPECIMENOrdering Facility: [facility] Address: [address] [place] [address] Performed By: #### 5 7021-8 ####[facility]OSPITALNCLIA [id number] [place] [address] [place] MCV (RBC) [Entitic vol] 88.5 fL Normal 80.0-100.0 [facility] Comment on above: Order Comment: Speci men Type: BLOOD SPECIMENOrdering Facility: [facility] Address: [address] [place] [address] Performed By: #### 5 7021-8 ####[facility] [id number] [place] [address] [place] Monocytes (Bld) [#/Vol] 0.38 10*3/uL Normal <0.87 [facility] Comment on above: Order Comment: Speci men Type: BLOOD SPECIMENOrdering Facility: [facility] Address: [address] [place] [address] Performed By: #### 5 7021-8 ####[facility] [id number] [place] [address] [place] Monocytes/100 WBC (Bld) 9.2 % Normal [facility] Comment on above: Order Comment: Speci men Type: BLOOD SPECIMENOrdering Facility: [facility] Address: [address] [place] [address] Performed By: #### 5 7021-8 ####[facility] [id number] [place] [address] [place] Neutrophils (Bld) [#/Vol] 2.93 10*3/uL Normal 1.45-7.50 [facility] Comment on above: Order Comment: Speci men Type: BLOOD SPECIMENOrdering Facility: [facility] Address: [address] [place] [address] Performed By: #### 5 7021-8 ####[facility] [id number] [place] [address] [place] Neutrophils/100 WBC (Bld) 71.3 % Normal [facility] Comment on above: Order Comment: Speci men Type: BLOOD SPECIMENOrdering Facility: [facility] Address: [address] [place], [place] [address] Performed By: #### 5 7021-8 ####[facility]OSPITALNCLIA [id number] [place] [address] [place] Nucleated RBC (Bld) [#/Vol] 10*3/uL Normal <0.01 [facility] Comment on above: Order Comment: Speci men Type: BLOOD SPECIMENOrdering Facility: [facility] Address: [address] [place] [address] Performed By: #### 5 7021-8 ####[facility]OSPITALNCA [id number] [place] [address] [place] Nucleated RBC/100 WBC (Bld) [Ratio] 0.0 /[address] [facility] Comment on above: Order Comment: Speci men Type: BLOOD SPECIMENOrdering Facility: [facility] Address: [address] [place] [address] Performed By: #### 5 7021-8 ####[facility]OSPITALNCLIA [id number] [place] [address] [place] Platelet mean volume (Bld) [Entitic vol] 9.2 fL Normal 9.0-12.7 [facility] Comment on above: Order Comment: Speci men Type: BLOOD SPECIMENOrdering Facility: [facility] Address: [address] [place] [address] Performed By: #### 5 7021-8 ####[facility] CENTERLIA [id number] [place] [address] [place] Platelets (Bld) [#/Vol] 200 10*3/uL Normal 150-400 [facility] Comment on above: Order Comment: Speci men Type: BLOOD SPECIMENOrdering Facility: [facility] Address: [address] [place] [address] Performed By: #### 5 7021-8 ####[facility] [id number] [place] [address] [place] RBC (Bld) [#/Vol] 2.95 10*6/uL Low 3.90-5.20 [facility] Comment on above: Order Comment: Speci men Type: BLOOD SPECIMENOrdering Facility: [facility] Address: [address] [place] [address] Performed By: #### 5 7021-8 ####[facility] [id number] [place] [address] [place] WBC (Bld) [#/Vol] 4.11 10*3/uL Normal 3.70-11.00 [facility] Comment on above: Order Comment: Speci men Type: BLOOD SPECIMENOrdering Facility: [facility] Address: [address] [place] [address] Performed By: #### 5 7021-8 ####[facility] [id number] [place] [address] [place] CNOVSPon 03-02-[address] [facility] CNPNon 03-02-[address] [facility] Cancer Ag125 SerPl-aCncon Cancer Ag 125 Qn 7 [arb'U]/mL Normal <39 [facility] Comment on above: Order Comment: Speci men Type: BLOOD SPECIMENOrdering Facility: [facility] Address: [address] [place] [address] Result Comment: CA 1 25 test methodology [...] (CA 125 II) [package insert V 1.0 [place]]. [facility], [place], [place] (July 2015) Performed By: #### 1 0334-1 ####[facility] LABCLIA [id number] [place] [address] [place] Comprehensive metabolic 2000 panelon 03-02-2025 Albumin [Mass/Vol] 4.2 g/dL Normal 3.9-4.9 [facility] Comment on above: Order Comment: Speci men Type: BLOOD SPECIMENOrdering Facility: [facility] Address: [address] [place] [address] Performed By: #### 5 0190-8, 2275- ####[facility] LABCLIA [id number] [place] [address] [place]#### 97263-0 ####[facility]ENTERLIA [id number] [place] [address] [place] ALP [Catalytic activity/Vol] 69 U/L Normal 34-123 [facility] Comment on above: Order Comment: Speci men Type: BLOOD SPECIMENOrdering Facility: [facility] Address: [address] [place] [address] Performed By: #### 5 0190-8, 2276-01 ####[facility] LABCLIA [id number] [place] [address] [place]#### 30226-4 ####[facility] MILLTOWNCLIA [id number] [place] [address] [place] ALT [Catalytic activity/Vol] 9 U/L Normal 7-38 [facility] Comment on above: Order Comment: Speci men Type: BLOOD SPECIMENOrdering Facility: [facility] Address: [address] [place] [address] Performed By: #### 5 0190-8, 2275- ####[facility] LABCLIA [id number] [place] [address] [place]#### 79247-6 ####[facility] PATRICIO MILLTOWNCLIA [id number] [place] [address] [place] Anion gap [Moles/Vol] 13 mmol/L Normal 8-15 [facility] Comment on above: Order Comment: Speci men Type: BLOOD SPECIMENOrdering Facility: [facility] Address: [address] [place] [address] Performed By: #### 5 0190-8, 2275-4 ####[facility] LABCLIA [id number] [place] [address] [place]#### 99277-5 ####[facility] MILLTOWNCLIA [id number] [place] [address] [place] AST [Catalytic activity/Vol] 12 U/L Low 13-35 [facility] Comment on above: Order Comment: Speci men Type: BLOOD SPECIMENOrdering Facility: [facility] Address: [address] [place] [address] Performed By: #### 5 0190-8, 2275-4 ####[facility] LABCLIA [id number] [place] [address] [place]#### 74067-0 ####[facility] MILLTOWNCLIA [id number] [place] [address] [place] Bilirubin [Mass/Vol] 0.2 mg/dL Normal 0.2-1.3 [facility] Comment on above: Order Comment: Speci men Type: BLOOD SPECIMENOrdering Facility: [facility] Address: [facility] [place] [address] Performed By: #### 5 0190-8, 2275-4 ####[facility] LABCLIA [id number] [place] [address] [place]#### 19666-9 ####[facility] MILLTOWNCLIA [id number] [place] [address] [place] Calcium [Mass/Vol] 9.7 mg/dL Normal 8.5-10.2 [facility] Comment on above: Order Comment: Speci men Type: BLOOD SPECIMENOrdering Facility: [facility] Address: [address] [place] [address] Performed By: #### 5 0190-8, 2275- ####[facility] LABCLIA [id number] [place] [address] [place]#### 21198-3 ####[facility] MILLWNCLIA [id number] [place] [address] [place] Chloride [Moles/Vol] 104 mmol/L Normal 98-107 [facility] Comment on above: Order Comment: Speci men Type: BLOOD SPECIMENOrdering Facility: [facility] Address: [address] [place] [address] Performed By: #### 5 0190-8, 2276-01 ####[facility] LABCLIA [id number] [place] [address] [place]#### 24338-0 ####[facility] MILLTOWNCLIA [id number] [place] [address] [place] CO2 [Moles/Vol] 21 mmol/L Low 22-30 [facility] Comment on above: Order Comment: Speci men Type: BLOOD SPECIMENOrdering Facility: [facility] Address: [address] [place], [place] [address] Performed By: #### 5 0190-8, 2276-01 ####[facility] LABCLIA [id number] [place] [address] [place]#### 92918-8 ####[facility] MILLTOWNCLIA [id number] [place] [address] [place] Creatinine [Mass/Vol] 0.89 mg/dL Normal 0.58-0.96 [facility] Comment on above: Order Comment: Speci yasir Type: BLOOD SPECIMENOrdering Facility: [facility] Address: [address] [place] [address] Performed By: #### 5 0190-8, 2276-01 ####[facility] LABIA [id number] [address] [place]#### 36679-9 ####[facility] [id number] [address] STATES [facility] Creatinine and Glomerular filtration rate.predicted panel (S/P/Bld) 69 mL/min/1.73m??? Normal >=60 [facility] Comment on above: Order Comment: Cheng cooley Type: BLOOD SPECIMENOrdering Facility: [facility] Address: [address] [place] [address] Result Comment: Ethel mated Glomerular Filtration Rate [...] GFR. Performed By: #### 5 0190-8, 2276-01 ####[facility] LABIA [id number] [place] [address] [place]#### 54613-3 ####[facility]ITALNCLIA [id number] [place] [address] [place] [facility] Glucose [Mass/Vol] 92 mg/dL Normal 74-99 [facility] Comment on above: Order Comment: Bekai men Type: BLOOD SPECIMENOrdering Facility: [facility] Address: [address] [place] [address] Result Comment: The [place] Diabetes Association (ADA) provides guidance for cutoff [...] Standards of Medical Care in Diabetes 2016, [place] [employer]. Diabetes Care. 2016.39(Suppl 1). Performed By: #### 5 0190-8, 2276-01 ####[facility] LABIA [id number] [place] [address] [place]#### 56719-1 ####[facility] MILLTOWNCLIA [id number] [place] [address] [place] Potassium [Moles/Vol] 3.7 mmol/L Normal 3.7-5.1 [facility] Comment on above: Order Comment: Speci men Type: BLOOD SPECIMENOrdering Facility: [facility] Address: [address] [place] [address] Performed By: #### 5 0190-8, 2276-01 ####[facility] LABIA [id number] [place] [address] [place]#### 98741-1 ####[facility] MILLTOWNCLIA [id number] [place] [address] [place] Protein [Mass/Vol] 6.7 g/dL Normal 6.3-8.0 [facility] Comment on above: Order Comment: Speci men Type: BLOOD SPECIMENOrdering Facility: [facility] Address: [address] [place] [address] Performed By: #### 5 0190-8, 2275- ####[facility] LABCLIA [id number] [place] [address] [place]#### 85730-7 ####[facility] MILLTOWNCLIA [id number] [place] [address] [place] Sodium [Moles/Vol] 138 mmol/L Normal 136-144 [facility] Comment on above: Order Comment: Speci men Type: BLOOD SPECIMENOrdering Facility: [facility] Address: [address] [place] [address] Performed By: #### 5 0190-8, 2276-01 ####[facility] LABCLIA [id number] [place] [address] [place]#### 35517-7 ####[facility] MILLST. VINCENT MERCY HOSPITALLIA [id number] [place] [address] [place] Urea nitrogen [Mass/Vol] 18 mg/dL Normal 7-21 [facility] Comment on above: Order Comment: Speci men Type: BLOOD SPECIMENOrdering Facility: [facility] Address: [address] [place] [address] Performed By: #### 5 0190-8, 2276-01 ####[facility] LABCLIA [id number] [place] [address] [place]#### 80897-2 ####[facility] MILLTOWNCLIA [id number] [place] [address] [place] FERRITINon 03-02-2025 Ferritin [Mass/Vol] 8.4 ng/mL Low 14.7 - 205.1 ng/mL [facility] Ferritin SerPl-mCncon 2024 Ferritin [Mass/Vol] 8.4 ng/mL Low 14.7-205.1 [facility] Comment on above: Order Comment: Speci men Type: BLOOD SPECIMENOrdering Facility: [facility] Address: [address] [place] [address] Performed By: #### 5 0190-8, 2276-01 ####[facility] LABCLIA [id number] [place] [address] [place]#### 10667-4 ####[facility] MILLWNCLIA [id number] [place] [address] [place] Ferritin [Mass/Vol]on 2024 Interpretation and review of laboratory results Abnormal [facility] Iron and Iron binding capaci ty panelon 03-02-2025 Interpretation and review of laboratory results Abnormal [facility] Iron [Mass/Vol] 31 ug/dL Low 41 - 186 ug/dL [facility] Iron binding capacity [Mass/Vol] 424 ug/dL High 232 - 386 ug/dL [facility] Iron/TIBC [Molar ratio] 7.3 % Low 15.0 - 57.0 % [facility] Iron [Mass/Vol] 31 ug/dL Low 41-186 [facility] Comment on above: Order Comment: Speci men Type: BLOOD SPECIMENOrdering Facility: [facility] Address: [address] [place] [address] Performed By: #### 5 0190-8, 2276-01 ####[facility] LABCLIA [id number] [place] [address] [place]#### 00455-9 ####[facility] MILLWNCLIA [id number] [place] [address] [place] Iron binding capacity [Mass/Vol] 424 ug/dL High 232-386 [facility] Comment on above: Order Comment: Speci men Type: BLOOD SPECIMENOrdering Facility: [facility] Address: [address] [place] [address] Performed By: #### 5 0190-8, 2276-01 ####[facility] LABCLIA [id number] [place] [id number] [facility]#### 99544-3 ####[facility] [id number] [address] Iron/TIBC [Molar ratio] 7.3 % Low 15.0-57.0 [facility] Comment on above: Order Comment: Speci men Type: BLOOD SPECIMENOrdering Facility: [facility] Address: [address] [place] [address] Performed By: #### 5 0190-8, 2276-4 ####[facility] LABCLIA [id number] [address]#### 96235-5 ####[facility]ITALNCA [id number] [address] OF [facility] Gastroenterology Visit Repor ton 03-01-2025 Gastroenterology Visit Report [facility] Gastroenterology [address] [facility] [place] [address] OFFICE VISIT Date of Service: 03/01/25 MR#: [id number] Acct: [id number] Name: SAL BAUTISTA Rep #: [id number] : 1950 Provider: KIRAN chang Age/Sex: 74/F Location: [facility] Status: Signed Intake Vital Signs 01/10/25 10:06 [...] stated it just isn't healing up properly. [facility] Medical History (Updated 03/01/25 @ 10:17 by [...] to the office today for establishment with [facility] regarding melena. She is recovering from [...] daily to keep things soft and moving. 3 Colonoscopy: Patent end-to-end colo-rectal anastomosis w/erythema and [...] for fati (more content not included)... Normal [facility] CNPNon 02-21-[address] [facility] CBC W Auto Differential pane l (Bld)on 02-03-2025 Basophils (Bld) [#/Vol] 10*3/uL Normal <0.11 [facility] Comment on above: Order Comment: Speci men Type: BLOOD SPECIMENOrdering Facility: [facility] Address: [address] [place] [address] Performed By: #### 5 7021-8 ####[facility] LUIGI [id number] [place] [address] [place] Basophils/100 WBC (Bld) 0.5 % Normal [facility] Comment on above: Order Comment: Speci men Type: BLOOD SPECIMENOrdering Facility: [facility] Address: [address] [place] [address] Performed By: #### 5 7021-8 ####[facility] [id number] [place] [address] [place] Differential cell count method Nom (Bld) Auto Normal [facility] Comment on above: Order Comment: Speci men Type: BLOOD SPECIMENOrdering Facility: [facility] Address: [address] [place] [address] Performed By: #### 5 7021-8 ####[facility]ITALN[facility] [id number] [place] [address] [place] Eosinophils (Bld) [#/Vol] 0.03 10*3/uL Normal <0.46 [facility] Comment on above: Order Comment: Speci men Type: BLOOD SPECIMENOrdering Facility: [facility] Address: [address] [place] [address] Performed By: #### 5 7021-8 ####[facility] [id number] [place] [address] [place] Eosinophils/100 WBC (Bld) 0.8 % Normal [facility] Comment on above: Order Comment: Speci men Type: BLOOD SPECIMENOrdering Facility: [facility] Address: [address] [place] [address] Performed By: #### 5 7021-8 ####[facility]ITALNCLIA [id number] [place] [address] [place] Erythrocyte distribution width (RBC) [Ratio] 14.2 % Normal 11.5-15.0 [facility] Comment on above: Order Comment: Speci men Type: BLOOD SPECIMENOrdering Facility: [facility] Address: [address] [place] [address] Performed By: #### 5 7021-8 ####[facility] ALISASANDRA [id number] [place] [address] [place] Hematocrit (Bld) [Volume fraction] 27.6 % Low 36.0-46.0 [facility] Comment on above: Order Comment: Speci men Type: BLOOD SPECIMENOrdering Facility: [facility] Address: [address] [place] [address] Performed By: #### 5 7021-8 ####[facility] [id number] [place] [address] [place] Hemoglobin (Bld) [Mass/Vol] 8.8 g/dL Low 11.5-15.5 [facility] Comment on above: Order Comment: Speci men Type: BLOOD SPECIMENOrdering Facility: [facility] Address: [address] [place] [address] Performed By: #### 5 7021-8 ####[facility] [id number] [place] [address] [place] Immature granulocytes (Bld) [#/Vol] 10*3/uL Normal <0.10 [facility] Comment on above: Order Comment: Speci men Type: BLOOD SPECIMENOrdering Facility: [facility] Address: [address] [place] [address] Performed By: #### 5 7021-8 ####[facility] CLAY COUNTYA [id number] [place] [address] [place] Immature granulocytes/100 WBC (Bld) 0.3 % Normal [facility] Comment on above: Order Comment: Speci men Type: BLOOD SPECIMENOrdering Facility: [facility] Address: [address] [place] [address] Performed By: #### 5 7021-8 ####[facility] MILLWNCLIA [id number] [place] [address] [place] Lymphocytes (Bld) [#/Vol] 0.53 10*3/uL Low 1.00-4.00 [facility] Comment on above: Order Comment: Speci men Type: BLOOD SPECIMENOrdering Facility: [facility] Address: [address] [place] [address] Performed By: #### 5 7021-8 ####[facility] CENTERLIA [id number] [place] [address] [place] Lymphocytes/100 WBC (Bld) 14.6 % Normal [facility] Comment on above: Order Comment: Speci men Type: BLOOD SPECIMENOrdering Facility: [facility] Address: [address] [place] [address] Performed By: #### 5 7021-8 ####[facility] CLAY COUNTYA [id number] [place] [address] [place] MCH (RBC) [Entitic mass] 29.2 pg Normal 26.0-34.0 [facility] Comment on above: Order Comment: Speci men Type: BLOOD SPECIMENOrdering Facility: [facility] Address: [address] [place] [address] Performed By: #### 5 7021-8 ####[facility] CLAY COUNTYA [id number] [place] [address] [place] MCHC (RBC) [Mass/Vol] 31.9 g/dL Normal 30.5-36.0 [facility] Comment on above: Order Comment: Speci men Type: BLOOD SPECIMENOrdering Facility: [facility] Address: [address] [place] [address] Performed By: #### 5 7021-8 ####[facility]ITALNCLIA [id number] [place] [address] [place] MCV (RBC) [Entitic vol] 91.7 fL Normal 80.0-100.0 [facility] Comment on above: Order Comment: Speci men Type: BLOOD SPECIMENOrdering Facility: [facility] Address: [address] [place] [address] Performed By: #### 5 7021-8 ####[facility] [id number] [place] [address] [place] Monocytes (Bld) [#/Vol] 0.54 10*3/uL Normal <0.87 [facility] Comment on above: Order Comment: Speci men Type: BLOOD SPECIMENOrdering Facility: [facility] Address: [address] [place] [address] Performed By: #### 5 7021-8 ####[facility] [id number] [place] [address] [place] Monocytes/100 WBC (Bld) 14.8 % Normal [facility] Comment on above: Order Comment: Speci men Type: BLOOD SPECIMENOrdering Facility: [facility] Address: [address] [place] [address] Performed By: #### 5 7021-8 ####[facility] [id number] [place] [address] [place] Neutrophils (Bld) [#/Vol] 2.51 10*3/uL Normal 1.45-7.50 [facility] Comment on above: Order Comment: Speci men Type: BLOOD SPECIMENOrdering Facility: [facility] Address: [address] [place] [address] Performed By: #### 5 7021-8 ####[facility] [id number] [place] [address] [place] Neutrophils/100 WBC (Bld) 69.0 % Normal [facility] Comment on above: Order Comment: Speci men Type: BLOOD SPECIMENOrdering Facility: [facility] Address: [address] [place] [address] Performed By: #### 5 7021-8 ####[facility]OSPITALKATERIN [id number] [place] [address] [place] Nucleated RBC (Bld) [#/Vol] 10*3/uL Normal <0.01 [facility] Comment on above: Order Comment: Speci men Type: BLOOD SPECIMENOrdering Facility: [facility] Address: [address] [place] [address] Performed By: #### 5 7021-8 ####[facility]ITALNCCENTR[facility] [id number] [place] [address] [place] Nucleated RBC/100 WBC (Bld) [Ratio] 0.0 /[address] [facility] Comment on above: Order Comment: Speci men Type: BLOOD SPECIMENOrdering Facility: [facility] Address: [address] [place] [address] Performed By: #### 5 7021-8 ####[facility] [id number] [place] [address] [place] Platelet mean volume (Bld) [Entitic vol] 9.6 fL Normal 9.0-12.7 [facility] Comment on above: Order Comment: Speci men Type: BLOOD SPECIMENOrdering Facility: [facility] Address: [address] [place] [address] Performed By: #### 5 7021-8 ####[facility]ENTERLI [id number] [place] [address] [place] Platelets (Bld) [#/Vol] 209 10*3/uL Normal 150-400 [facility] Comment on above: Order Comment: Speci men Type: BLOOD SPECIMENOrdering Facility: [facility] Address: [address] [place] [address] Performed By: #### 5 7021-8 ####[facility]PITALNCLIA [id number] [place] [address] [place] RBC (Bld) [#/Vol] 3.01 10*6/uL Low 3.90-5.20 [facility] Comment on above: Order Comment: Speci men Type: BLOOD SPECIMENOrdering Facility: [facility] Address: [address] [place] [address] Performed By: #### 5 7021-8 ####[facility]ITALNCLIA [id number] [place] [address] [place] WBC (Bld) [#/Vol] 3.64 10*3/uL Low 3.70-11.00 [facility] Comment on above: Order Comment: Speci men Type: BLOOD SPECIMENOrdering Facility: [facility] Address: [address] [place] [address] Performed By: #### 5 7021-8 ####[facility]OSPITALNCLIA [id number] [place] [address] [place] CNOVSPon 02-03-[address] [facility] Cancer Ag125 SerPl-aCncon Cancer Ag 125 Qn 5 [arb'U]/mL Normal <39 [facility] Comment on above: Order Comment: Speci men Type: BLOOD SPECIMENOrdering Facility: [facility] Address: [address] [place] [address] Result Comment: CA 1 25 test methodology [...] (CA 125 II) [package insert V 1.0 Jamaican]. [facility], [place], [place] (July 2015) Performed By: #### 1 0334-1 ####[facility] LABCLIA [id number] [place] [address] [place] Comprehensive metabolic 2000 panelon 02-03-2025 Albumin [Mass/Vol] 4.3 g/dL Normal 3.9-4.9 [facility] Comment on above: Order Comment: Speci men Type: BLOOD SPECIMENOrdering Facility: [facility] Address: [address] [place] [address] Performed By: #### 2 4323-8 ####[facility] MILLTOWNCLIA [id number] [place] [address] [place] ALP [Catalytic activity/Vol] 62 U/L Normal 34-123 [facility] Comment on above: Order Comment: Speci men Type: BLOOD SPECIMENOrdering Facility: [facility] Address: [address] [place] [address] Performed By: #### 2 4323-8 ####[facility] MILLWNCLIA [id number] [place] [address] [place] ALT [Catalytic activity/Vol] 8 U/L Normal 7-38 [facility] Comment on above: Order Comment: Speci men Type: BLOOD SPECIMENOrdering Facility: [facility] Address: [address] [place] [address] Performed By: #### 2 4323-8 ####[facility] MILLTOWNCLIA [id number] [place] [address] [place] Anion gap [Moles/Vol] 10 mmol/L Normal 8-15 [facility] Comment on above: Order Comment: Speci men Type: BLOOD SPECIMENOrdering Facility: [facility] Address: [address] [place] [address] Performed By: #### 2 4323-8 ####[facility] MILLWNCLIA [id number] [place] [address] [place] AST [Catalytic activity/Vol] 13 U/L Normal 13-35 [facility] Comment on above: Order Comment: Speci men Type: BLOOD SPECIMENOrdering Facility: [facility] Address: [address] [place] [address] Performed By: #### 2 4323-8 ####[facility]ITALN[facility] [id number] [place] [address] [place] Bilirubin [Mass/Vol] 0.2 mg/dL Normal 0.2-1.3 [facility] Comment on above: Order Comment: Speci men Type: BLOOD SPECIMENOrdering Facility: [facility] Address: [address] [place] [address] Performed By: #### 2 4323-8 ####[facility] [id number] [place] [address] [place] Calcium [Mass/Vol] 9.3 mg/dL Normal 8.5-10.2 [facility] Comment on above: Order Comment: Speci men Type: BLOOD SPECIMENOrdering Facility: [facility] Address: [address] [place] [address] Performed By: #### 2 4323-8 ####[facility] [id number] [place] [address] [place] OF [place] Chloride [Moles/Vol] 104 mmol/L Normal 98-107 [facility] Comment on above: Order Comment: Speci men Type: BLOOD SPECIMENOrdering Facility: [facility] Address: [address] [place] [address] Performed By: #### 2 4323-8 ####[facility] CLAY COUNTYA [id number] [place] [address] [place] CO2 [Moles/Vol] 25 mmol/L Normal 22-30 [facility] Comment on above: Order Comment: Speci men Type: BLOOD SPECIMENOrdering Facility: [facility] Address: [address] [place] [address] Performed By: #### 2 4323-8 ####[facility] [id number] [place] [address] [place] Creatinine [Mass/Vol] 0.90 mg/dL Normal 0.58-0.96 [facility] Comment on above: Order Comment: Speci men Type: BLOOD SPECIMENOrdering Facility: [facility] Address: [address] [place] [address] Performed By: #### 2 4323-8 ####[facility] [id number] [place] [address] [place] Creatinine and Glomerular filtration rate.predicted panel (S/P/Bld) 68 mL/min/1.73m??? Normal >=60 [facility] Comment on above: Order Comment: Speci men Type: BLOOD SPECIMENOrdering Facility: [facility] Address: [address] [place] [address] Result Comment: Ethel mated Glomerular Filtration Rate [...] actual GFR. Performed By: #### 2 4323-8 ####[facility] CENTERLIA [id number] [place] [address] [place] Glucose [Mass/Vol] 99 mg/dL Normal 74-99 [facility] Comment on above: Order Comment: Speci men Type: BLOOD SPECIMENOrdering Facility: [facility] Address: [address] [place] [address] Result Comment: The [place] Diabetes Association (ADA) provides guidance for cutoff [...] Standards of Medical Care in Diabetes 2016, [place] [employer]. Diabetes Care. 2016.39(Suppl 1). Performed By: #### 2 4323-8 ####[facility] MILLTOWNCLIA [id number] [place] [address] [place] Potassium [Moles/Vol] 4.1 mmol/L Normal 3.7-5.1 [facility] Comment on above: Order Comment: Speci men Type: BLOOD SPECIMENOrdering Facility: [facility] Address: [address] [place] [address] Performed By: #### 2 4323-8 ####[facility] CENTERLIA [id number] [place] [address] [place] Protein [Mass/Vol] 6.8 g/dL Normal 6.3-8.0 [facility] Comment on above: Order Comment: Speci men Type: BLOOD SPECIMENOrdering Facility: [facility] Address: [address] [place] [address] Performed By: #### 2 4323-8 ####[facility] CENTERLIA [id number] [place] [address] [place] Sodium [Moles/Vol] 139 mmol/L Normal 136-144 [facility] Comment on above: Order Comment: Speci men Type: BLOOD SPECIMENOrdering Facility: [facility] Address: [address] [place] [address] Performed By: #### 2 4323-8 ####[facility] CENTERLIA [id number] [place] [address] [place] Urea nitrogen [Mass/Vol] 18 mg/dL Normal 7-21 [facility] Comment on above: Order Comment: Speci men Type: BLOOD SPECIMENOrdering Facility: [facility] Address: [address] [place] [place] [address] Performed By: #### 2 4323-8 ####[facility] [id number] [place] [address] [place] CNPTOUTREACHon 01-18-[address] [facility] Flex Sigmoidoscopy Reporton 01-10-2025 Flex Sigmoidoscopy Report [facility] Medical Records Department [address] [place] [address] Flex Sigmoidoscopy Report MR#: [id number] Acct: [id number] Name: SAL BAUTISTA Rep #: [id number] : 1950 74 From: Leydi Carmen MD PCP: Dr. Romel Michelle MD Status:[facility] Patient Name: Sal Bautista Procedure Date: 01/10/2025 [...] to home. Procedure Code(s): --- Professional --- 69669, PT, Sigmoidoscopy, flexible; with control of bleeding, any method Diagnosis Code(s): --- Professional --- R19.5, Other fecal abnormalities CPT copyright 2021 [employer]. All rights reserved. The codes documented in this report are preliminary and upon pega developer review may be revised to meet current compliance requirements. MD Leydi Kaba MD 01/10/2025 1:04:25 PM This report has been signed electronically. Number of Addenda: 0 Note Initiated On: 01/10/2025 12:17 PM 01/10/25 1304 Date Leydi Carmen MD Cosigner Signature: Date (if indicated) CC: Dr. Romel Michelle MD; Dr. Leydi Carmen MD Date Dictated: 01/10/25 1217 Date Transcribed: Product Tester: TR Signed [facility] MR/POSTOP.[facility] 01-10-2025 MR/POSTOP.[facility] Medical Records Department [address] [place] [address] Anesthesia Postop Eval I 01/10/25 1301 MR#: [id number] Acct: [id number] Name: SAL BAUTISTA Rep #: [id number] : 1950 74 From: Darryl Reeves PCP: Dr. Romel Michelle MD Status:REG SDC Y Race: C Location: [place] [address] Anesthesia: Postop Eval I Current Vital Signs [...] Darryl Martinez Signature: Date CC: Signed Normal [facility] MR/SYLLONPR1qc 01-10-2025 /[facility] Medical Records Department [address] [place] [address] Anesthesia Postop Eval II 01/10/25 1358 MR#: [id number] Acct: [id number] Name: SAL BAUTISTA Rep #: [id number] : 1950 74 From: Carlos Bonilla MD PCP: Dr. Romel Michelle MD Status:REG [facility] Y Race: C Location: [place] [address] Anesthesia Postop Eval I Sum Postop Eval [...] Carlos Martinez Signature: Date CC: Signed Normal [facility] CNPNon 12-27-[address] [facility] CBC W Auto Differential pane l (Bld)on 12-24-2024 Basophils (Bld) [#/Vol] 10*3/uL Normal <0.11 [facility] Comment on above: Order Comment: Speci men Type: BLOOD SPECIMENOrdering Facility: [facility] Address: [address] [place] [address] Performed By: #### 5 7021-8 ####[facility] [id number] [place] [address] [place] Basophils/100 WBC (Bld) 0.3 % Normal [facility] Comment on above: Order Comment: Speci men Type: BLOOD SPECIMENOrdering Facility: [facility] Address: [address] [place] [address] Performed By: #### 5 7021-8 ####[facility] [id number] [place] [address] [place] Differential cell count method Nom (Bld) Auto Normal [facility] Comment on above: Order Comment: Speci men Type: BLOOD SPECIMENOrdering Facility: [facility] Address: [address] [place] [address] Performed By: #### 5 7021-8 ####[facility] MILLWNCLIA [id number] [place] [address] [place] Eosinophils (Bld) [#/Vol] 10*3/uL Normal <0.46 [facility] Comment on above: Order Comment: Speci men Type: BLOOD SPECIMENOrdering Facility: [facility] Address: [address] [place] [address] Performed By: #### 5 7021-8 ####[facility] CENTERLIA [id number] [place] [address] [place] Eosinophils/100 WBC (Bld) 0.0 % Normal [facility] Comment on above: Order Comment: Speci men Type: BLOOD SPECIMENOrdering Facility: [facility] Address: [address] [place] [address] Performed By: #### 5 7021-8 ####[facility]OSPITALNCLIA [id number] [place] [address] [place] Erythrocyte distribution width (RBC) [Ratio] 15.5 % High 11.5-15.0 [facility] Comment on above: Order Comment: Speci men Type: BLOOD SPECIMENOrdering Facility: [facility] Address: [address] [place] [address] Performed By: #### 5 7021-8 ####[facility] CENTERWNCLIA [id number] [place] [address] [place] Hematocrit (Bld) [Volume fraction] 25.0 % Low 36.0-46.0 [facility] Comment on above: Order Comment: Speci men Type: BLOOD SPECIMENOrdering Facility: [facility] Address: [address] [place] [address] Performed By: #### 5 7021-8 ####[facility] MILLST. VINCENT MERCY HOSPITALLIA [id number] [place] [address] [place] Hemoglobin (Bld) [Mass/Vol] 8.4 g/dL Low 11.5-15.5 [facility] Comment on above: Order Comment: Speci men Type: BLOOD SPECIMENOrdering Facility: [facility] Address: [address] [place] [address] Performed By: #### 5 7021-8 ####[facility] CENTERLIA [id number] [place] [address] [place] Immature granulocytes (Bld) [#/Vol] 10*3/uL Normal <0.10 [facility] Comment on above: Order Comment: Speci men Type: BLOOD SPECIMENOrdering Facility: [facility] Address: [address] [place] [address] Performed By: #### 5 7021-8 ####[facility] [id number] [place] [address] [place] Immature granulocytes/100 WBC (Bld) 0.0 % Normal [facility] Comment on above: Order Comment: Speci men Type: BLOOD SPECIMENOrdering Facility: [facility] Address: [address] [place] [address] Performed By: #### 5 7021-8 ####[facility] CENTERLIA [id number] [place] [address] [place] Lymphocytes (Bld) [#/Vol] 0.75 10*3/uL Low 1.00-4.00 [facility] Comment on above: Order Comment: Speci men Type: BLOOD SPECIMENOrdering Facility: [facility] Address: [address] [place] [address] Performed By: #### 5 7021-8 ####[facility]OSPITALNCLIA [id number] [place] [address] [place] Lymphocytes/100 WBC (Bld) 25.4 % Normal [facility] Comment on above: Order Comment: Speci men Type: BLOOD SPECIMENOrdering Facility: [facility] Address: [address] [place] [address] Performed By: #### 5 7021-8 ####[facility] HOSPITALNCOPAL [id number] [place] [address] [place] MCH (RBC) [Entitic mass] 31.0 pg Normal 26.0-34.0 [facility] Comment on above: Order Comment: Speci men Type: BLOOD SPECIMENOrdering Facility: [facility] Address: [address] [place] [address] Performed By: #### 5 7021-8 ####[facility]OSPITALNCCENTR[facility] [id number] [address] [place] MCHC (RBC) [Mass/Vol] 33.6 g/dL Normal 30.5-36.0 [facility] Comment on above: Order Comment: Speci men Type: BLOOD SPECIMENOrdering Facility: [facility] Address: [address] [place] [address] Performed By: #### 5 7021-8 ####[facility]OSPITALNCLIA [id number] [address] [place] MCV (RBC) [Entitic vol] 92.3 fL Normal 80.0-100.0 [facility] Comment on above: Order Comment: Speci men Type: BLOOD SPECIMENOrdering Facility: [facility] Address: [address] [place] [address] Performed By: #### 5 7021-8 ####[facility] HOSPITALNCA [id number] [place] [address] [place] Monocytes (Bld) [#/Vol] 0.40 10*3/uL Normal <0.87 [facility] Comment on above: Order Comment: Speci men Type: BLOOD SPECIMENOrdering Facility: [facility] Address: [address] [place] [address] Performed By: #### 5 7021-8 ####[facility] MILLARAPAHONCLIA [id number] [place] [address] [place] Monocytes/100 WBC (Bld) 13.6 % Normal [facility] Comment on above: Order Comment: Speci men Type: BLOOD SPECIMENOrdering Facility: [facility] Address: [address] [place] [address] Performed By: #### 5 7021-8 ####[facility] HOSPITALNCLIA [id number] [place] [address] [place] Neutrophils (Bld) [#/Vol] 1.79 10*3/uL Normal 1.45-7.50 [facility] Comment on above: Order Comment: Speci men Type: BLOOD SPECIMENOrdering Facility: [facility] Address: [address] [place] [address] Performed By: #### 5 7021-8 ####[facility] CENTERLIA [id number] [place] [address] [place] Neutrophils/100 WBC (Bld) 60.7 % Normal [facility] Comment on above: Order Comment: Speci men Type: BLOOD SPECIMENOrdering Facility: [facility] Address: [address] [place] [address] Performed By: #### 5 7021-8 ####[facility] HOSPITALNCLIA [id number] [place] [address] [place] Nucleated RBC (Bld) [#/Vol] 10*3/uL Normal <0.01 [facility] Comment on above: Order Comment: Speci men Type: BLOOD SPECIMENOrdering Facility: [facility] Address: [address] [place] [address] Performed By: #### 5 7021-8 ####[facility] HOSPITALNCLIA [id number] [place] [address] [place] Nucleated RBC/100 WBC (Bld) [Ratio] 0.0 /[address] [facility] Comment on above: Order Comment: Speci men Type: BLOOD SPECIMENOrdering Facility: [facility] Address: [address] [place] [address] Performed By: #### 5 7021-8 ####[facility] LUIGI [id number] [place] [address] [place] Platelet mean volume (Bld) [Entitic vol] 9.1 fL Normal 9.0-12.7 [facility] Comment on above: Order Comment: Speci men Type: BLOOD SPECIMENOrdering Facility: [facility] Address: [address] [place] [address] Performed By: #### 5 7021-8 ####[facility] HOSPITALIGGYBoo [id number] [place] [address] [place] Platelets (Bld) [#/Vol] 121 10*3/uL Low 150-400 [facility] Comment on above: Order Comment: Speci men Type: BLOOD SPECIMENOrdering Facility: [facility] Address: [address] [place] [address] Performed By: #### 5 7021-8 ####[facility] ALISAARAPAHOIGGYDEMETRIO [id number] [place] [address] [place] RBC (Bld) [#/Vol] 2.71 10*6/uL Low 3.90-5.20 [facility] Comment on above: Order Comment: Speci men Type: BLOOD SPECIMENOrdering Facility: [facility] Address: [address] [place] [address] Performed By: #### 5 7021-8 ####[facility] HOSPITALNCLIA [id number] [place] [address] [place] WBC (Bld) [#/Vol] 2.95 10*3/uL Low 3.70-11.00 [facility] Comment on above: Order Comment: Speci men Type: BLOOD SPECIMENOrdering Facility: [facility] Address: [address] [place] [address] Performed By: #### 5 7021-8 ####[facility]OSPITALNCCENTRAL VAL[facility] [id number] [place] [address] [place] Cancer Ag125 SerPl-aCncon Cancer Ag 125 Qn 5 [arb'U]/mL Normal <39 [facility] Comment on above: Order Comment: Speci men Type: BLOOD SPECIMENOrdering Facility: [facility] Address: [address] [place] [address] Result Comment: CA 1 25 test methodology [...] (CA 125 II) [package insert V 1.0 Jamaican]. [facility], [place], [place] (July 2015) Performed By: #### 1 0334-1 ####[facility] LABCLIA [id number] [place] [address] [place] Comprehensive metabolic 2000 panelon 12-24-2024 Albumin [Mass/Vol] 4.2 g/dL Normal 3.9-4.9 [facility] Comment on above: Order Comment: Speci men Type: BLOOD SPECIMENOrdering Facility: [facility] Address: [address] [place] [address] Performed By: #### 2 4323-8, 96316-2 ####[facility] HOSPITALNCLIA [id number] [place] [address] [place] ALP [Catalytic activity/Vol] 72 U/L Normal 34-123 [facility] Comment on above: Order Comment: Speci men Type: BLOOD SPECIMENOrdering Facility: [facility] Address: [address] [place] [address] Performed By: #### 2 4323-8, ####[facility] CENTERWNCLIA [id number] [place] [address] [place] ALT [Catalytic activity/Vol] 12 U/L Normal 7-38 [facility] Comment on above: Order Comment: Speci men Type: BLOOD SPECIMENOrdering Facility: [facility] Address: [address] [place] [address] Performed By: #### 2 4323-8, ####[facility]OSPITALNCLIA [id number] [place] [address] [place] Anion gap [Moles/Vol] 11 mmol/L Normal 8-15 [facility] Comment on above: Order Comment: Speci men Type: BLOOD SPECIMENOrdering Facility: [facility] Address: [address] [place] [address] Performed By: #### 2 4323-8, ####[facility] HOSPITALNCLIA [id number] [place] [address] [place] AST [Catalytic activity/Vol] 14 U/L Normal 13-35 [facility] Comment on above: Order Comment: Speci men Type: BLOOD SPECIMENOrdering Facility: [facility] Address: [address] [place] [address] Performed By: #### 2 4323-8, ####[facility] HOSPITALNCLIA [id number] [place] [address] [place] Bilirubin [Mass/Vol] mg/dL Low 0.2-1.3 [facility] Comment on above: Order Comment: Speci men Type: BLOOD SPECIMENOrdering Facility: [facility] Address: [address] [place], [place] [address] Performed By: #### 2 4323-8, 75569-4 ####[facility] TORIBIOKATERINA [id number] [place] [address] [place] Calcium [Mass/Vol] 9.0 mg/dL Normal 8.5-10.2 [facility] Comment on above: Order Comment: Speci men Type: BLOOD SPECIMENOrdering Facility: [facility] Address: [address] [place] [address] Performed By: #### 2 4323-8, ####[facility] HOSPITALCALVIN [id number] [place] [address] [place] Chloride [Moles/Vol] 101 mmol/L Normal 98-107 [facility] Comment on above: Order Comment: Speci men Type: BLOOD SPECIMENOrdering Facility: [facility] Address: [address] [place] [address] Performed By: #### 2 4323-8, ####[facility] HOSPITALKATERINA [id number] [place] [address] [place] CO2 [Moles/Vol] 23 mmol/L Normal 22-30 [facility] Comment on above: Order Comment: Speci men Type: BLOOD SPECIMENOrdering Facility: [facility] Address: [address] [place] [address] Performed By: #### 2 4323-8, ####[facility] HOSPITALNCLIA [id number] [place] [address] [place] Creatinine [Mass/Vol] 0.73 mg/dL Normal 0.58-0.96 [facility] Comment on above: Order Comment: Speci men Type: BLOOD SPECIMENOrdering Facility: [facility] Address: [address] [place] [address] Performed By: #### 2 4323- ####[facility] CENTERWNCLIA [id number] [place] [address] [place] Creatinine and Glomerular filtration rate.predicted panel (S/P/Bld) 88 mL/min/1.73m??? Normal >=60 [facility] Comment on above: Order Comment: Cheng cooley Type: BLOOD SPECIMENOrdering Facility: [facility] Address: [address] [place] [address] Result Comment: Ethel mated Glomerular Filtration Rate [...] actual GFR. Performed By: #### 2 4323-8, ####[facility] HOSPITALNCLIA [id number] [place] [address] [place] Glucose [Mass/Vol] 83 mg/dL Normal 74-99 [facility] Comment on above: Order Comment: Cheng cooley Type: BLOOD SPECIMENOrdering Facility: [facility] Address: [address] [place] [address] Result Comment: The [place] [employer] (ADA) provides guidance for cutoff [...] Standards of Medical Care in Diabetes 2016, [place] [employer]. Diabetes Care. 2016.39(Suppl 1). Performed By: #### 2 4323-8, ####[facility] HOSPITALNCLIA [id number] [place] [address] [place] Potassium [Moles/Vol] 3.8 mmol/L Normal 3.7-5.1 [facility] Comment on above: Order Comment: Speci men Type: BLOOD SPECIMENOrdering Facility: [facility] Address: [address] [place] [address] Performed By: #### 2 4323-8, ####[facility] MILLWNCLIA [id number] [place] [address] [place] Protein [Mass/Vol] 6.7 g/dL Normal 6.3-8.0 [facility] Comment on above: Order Comment: Speci men Type: BLOOD SPECIMENOrdering Facility: [facility] Address: [address] [place] [address] Performed By: #### 2 432-8, ####[facility] CENTERLIA [id number] [place] [address] [place] Sodium [Moles/Vol] 135 mmol/L Low 136-144 [facility] Comment on above: Order Comment: Speci men Type: BLOOD SPECIMENOrdering Facility: [facility] Address: [address] [place] [address] Performed By: #### 2 4323-8, ####[facility] CENTERWIGGYLIA [id number] [place] [address] [place] Urea nitrogen [Mass/Vol] 14 mg/dL Normal 7-21 [facility] Comment on above: Order Comment: Speci men Type: BLOOD SPECIMENOrdering Facility: [facility] Address: [address] [place] [address] Performed By: #### 2 4323-8, ####[facility] CENTERWNCLIA [id number] [place] [address] [place] Magnesium SerPl-mCncon 12-24 Magnesium [Mass/Vol] 2.2 mg/dL Normal 1.7-2.3 [facility] Comment on above: Order Comment: Speci men Type: BLOOD SPECIMENOrdering Facility: [facility] Address: [address] [place] [id number] Performed By: #### 2 4323-8, 74226-8 ####[facility] [id number] [place] [address] [place] UA DIP, URINE (POC)on 2024 BILIRUBIN UA (POCT) Negative Negative [facility] CLARITY UA (POCT) Clear [facility] COLOR UA (POCT) Yellow [facility] GLUCOSE UA (POCT) Negative Negative mg/dL [facility] Hemoglobin Ql (U) Negative Negative [facility] Interpretation and review of laboratory results Abnormal [facility] KETONE UA (POCT) Negative Negative mg/dL [facility] LEUKOCYTES UA (POCT) Negative Negative [facility] NITRITE UA (POCT) Negative Negative [facility] PH UA (POCT) 5.5 4.5 - 8.0 [facility] Protein Ql (U) Negative Negative mg/dL [facility] SPECIFIC GRAVITY UA (POCT) <=1.005 Abnormal 1.005 - 1.030 [facility] UROBILINOGEN UA (POCT) 0.2 Normal E.U./dL [facility] Location:[facility], [address] [place], [place], [id number] [place] [address] POINT OF CARE [facility] Colonoscopy Reporton 025 Colonoscopy Report [facility] Medical Records Department [address] [place] [address] Colonoscopy Report MR#: [id number] Acct: [id number] Name: SAL BAUTISTA Rep #: [id number] : 1950 74 From: Leydi Carmen MD PCP: Dr. Romel Michelle MD Status:[facility] Patient Name: Sal Bautista Procedure Date: 12/21/2024 [...] that time. Procedure Code(s): --- Professional --- 99567, Colonoscopy, flexible; with control of bleeding, any method Diagnosis Code(s): --- Professional --- Z98.0, Intestinal bypass and anastomosis status K62.5, Hemorrhage of anus and rectum CPT copyright 2021 [employer]. All rights reserved. The codes documented in this report are preliminary and upon pega developer review may be revised to meet current compliance requirements. MD Leydi Kaba MD 12/21/2024 11:48:07 AM This report has been signed electronically. Number of Addenda: 0 Note Initiated On: 12/21/2024 10:40 AM 12/21/24 1148 Date Leydi Carmen MD Cosigner Signature: Date (if indicated) CC: Dr. Romel Michelle MD; Dr. Leydi Carmen MD Date Dictated: 12/21/24 1040 Date Transcribed: Product Tester: TR Signed [facility] MR/POSTOP.[facility] 12-21-2024 MR/POSTOP.[facility] Medical Records Department [address] [place] [address] Anesthesia Postop Eval I 12/21/24 1400 MR#: [id number] Acct: [id number] Name: SAL BAUTISTA Rep #: [id number] : 1950 74 From: Jason Billy CRNA PCP: Dr. Romel Michelle MD Status:[facility] Y Race: C Location: EN [...] 1 completed: Yes 12/21/24 1400 Date Jason Neribitt COMPLIANCE AND CONTROL ANALYST Cosigner Signature: Date CC: Signed Normal [facility] MR/[id number] 12-21-2024 [facility] Medical Records Department [address] [place] [address] Anesthesia Postop Eval II 12/21/24 1412 MR#: [id number] Acct: [id number] Name: SAL BAUTISTA Rep #: [id number] : 1950 74 From: Federico Joshua MD PCP: Dr. Romel Michelle MD Status:[facility] Y Race: C Location: EN Anesthesia Postop Eval I Sum Postop Eval Completion status Anesthesia document: Postop Eval 1 completed: Yes Anesthesia Postop Eval I Summary Anesthesia Postop Eval I Summary: Anesthesia Postop Eval I: Assessment Summary Airway patent Yes 12/21/24 14:00 COMPLIANCE AND CONTROL ANALYST.TNES Spontaneous unlabored Yes 12/21/24 14:00 COMPLIANCE AND CONTROL ANALYST.TNES respirations Mental status nausea No 12/21/24 14:00 COMPLIANCE AND CONTROL ANALYST.TNES Vomiting No 12/21/24 14:00 COMPLIANCE AND CONTROL ANALYST.TNES Anesthesia Postop Eval I: Fluid Summary Crystalloid volume administer 30 12/21/24 14:00 COMPLIANCE AND CONTROL ANALYST.TNES (ml) Colloids volume administered ( ml) Blood Product volume administered (ml) Total IV fluid infused 30 12/21/24 14:00 COMPLIANCE AND CONTROL ANALYST.TNES Anesthesia Postop Eval I: Summary Notes Anesthesia Complication No 12/21/24 14:00 COMPLIANCE AND CONTROL ANALYST.TNES Anesthesia Complication Comment: Post-operative progress note Anesthesia: Postop Eval II Evaluation Mental status: Awake Pain Level: 0 nausea: No Vomiting: No Complications Anesthesia Complication: No 12/21/24 1412 Date Federico Joshua MD Cosigner Signature: Date CC: Signed Normal [facility] Surgery Visit Reporton 12-17 Surgery Visit Report [facility] [address] [place] [address] [address] [place] [address] OFFICE VISIT Date of Service: 12/17/24 MR#: [id number] Acct: [id number] Name: SAL BAUTISTA Rep #: [id number] : 1950 Provider: Dr. Leydi burt MD Age/Sex: 74/F Location: [facility] Status: Signed Intake Vital Signs 09/04/21 14:32 [...] healthy appearing, comfortable and no acute distress [facility] Head: normocephalic and atraumatic Neck Neck: supple Resp Effort Inspection: normal respiratory effort Cardio Rate: regular rate GI Inspection: non- (more content not included)... Normal [facility] CT ABD/PEL W IVCONon 025 CT ABD/PEL W IVCON Normal [facility] CT CHEST W IVCONon 5 CT CHEST W IVCON Normal [facility] CBC W Auto Differential pane l (Bld)on 12-03-2024 Basophils (Bld) [#/Vol] 10*3/uL Normal <0.11 [facility] Comment on above: Order Comment: Speci men Type: BLOOD SPECIMENOrdering Facility: [facility] Address: [address] [place] [address] Performed By: #### 5 7021-8 ####[facility] CLAY COUNTYBoo [id number] [place] [id number] [place] Basophils/100 WBC (Bld) 0.0 % Normal [facility] Comment on above: Order Comment: Speci men Type: BLOOD SPECIMENOrdering Facility: [facility] Address: [address] [place] [address] Performed By: #### 5 7021-8 ####[facility] ALISAARAPAHOIGGYLIA [id number] [place] [address] [place] Differential cell count method Nom (Bld) Auto Normal [facility] Comment on above: Order Comment: Speci men Type: BLOOD SPECIMENOrdering Facility: [facility] Address: [address] [place] [address] Performed By: #### 5 7021-8 ####[facility] HOSPITALNCA [id number] [place] [address] [place] Eosinophils (Bld) [#/Vol] 10*3/uL Normal <0.46 [facility] Comment on above: Order Comment: Speci men Type: BLOOD SPECIMENOrdering Facility: [facility] Address: [address] [place] [address] Performed By: #### 5 7021-8 ####[facility] HOSPITALNCLIA [id number] [place] [address] [place] Eosinophils/100 WBC (Bld) 0.0 % Normal [facility] Comment on above: Order Comment: Speci men Type: BLOOD SPECIMENOrdering Facility: [facility] Address: [address] [place] [address] Performed By: #### 5 7021-8 ####[facility] MEDICAL CENTERLIA [id number] [place] [address] [place] Erythrocyte distribution width (RBC) [Ratio] 14.6 % Normal 11.5-15.0 [facility] Comment on above: Order Comment: Speci men Type: BLOOD SPECIMENOrdering Facility: [facility] Address: [address] [place] [address] Performed By: #### 5 7021-8 ####[facility] HOSPITALNCLIA [id number] [place] [address] [place] Hematocrit (Bld) [Volume fraction] 28.0 % Low 36.0-46.0 [facility] Comment on above: Order Comment: Speci men Type: BLOOD SPECIMENOrdering Facility: [facility] Address: [address] [place] [address] Performed By: #### 5 7021-8 ####[facility] HOSPITALCALVIN [id number] [place] [address] [place] Hemoglobin (Bld) [Mass/Vol] 9.4 g/dL Low 11.5-15.5 [facility] Comment on above: Order Comment: Speci men Type: BLOOD SPECIMENOrdering Facility: [facility] Address: [address] [place] [address] Performed By: #### 5 7021-8 ####[facility] HOSPITALCALVIN [id number] [place] [address] [place] Immature granulocytes (Bld) [#/Vol] 10*3/uL Normal <0.10 [facility] Comment on above: Order Comment: Speci men Type: BLOOD SPECIMENOrdering Facility: [facility] Address: [address] [place] [address] Performed By: #### 5 7021-8 ####[facility] HOSPITALCALVIN [id number] [place] [address] [place] Immature granulocytes/100 WBC (Bld) 0.5 % Normal [facility] Comment on above: Order Comment: Speci men Type: BLOOD SPECIMENOrdering Facility: [facility] Address: [address] [place] [address] Performed By: #### 5 7021-8 ####[facility] HOSPITALNCLIA [id number] [place] [address] [place] Lymphocytes (Bld) [#/Vol] 0.46 10*3/uL Low 1.00-4.00 [facility] Comment on above: Order Comment: Speci men Type: BLOOD SPECIMENOrdering Facility: [facility] Address: [address] [place] [address] Performed By: #### 5 7021-8 ####[facility] ALISAOfeliaNCDEMETRIO [id number] [place] [address] [place] Lymphocytes/100 WBC (Bld) 12.2 % Normal [facility] Comment on above: Order Comment: Speci men Type: BLOOD SPECIMENOrdering Facility: [facility] Address: [address] [place] [address] Performed By: #### 5 7021-8 ####[facility] HOSPITALNCDEMETRIO [id number] [place] [address] [place] MCH (RBC) [Entitic mass] 30.8 pg Normal 26.0-34.0 [facility] Comment on above: Order Comment: Speci men Type: BLOOD SPECIMENOrdering Facility: [facility] Address: [address] [place] [address] Performed By: #### 5 7021-8 ####[facility] HOSPITALNCA [id number] [place] [address] [place] MCHC (RBC) [Mass/Vol] 33.6 g/dL Normal 30.5-36.0 [facility] Comment on above: Order Comment: Speci men Type: BLOOD SPECIMENOrdering Facility: [facility] Address: [address] [place] [address] Performed By: #### 5 7021-8 ####[facility] HOSPITALNCLIA [id number] [place] [address] [place] MCV (RBC) [Entitic vol] 91.8 fL Normal 80.0-100.0 [facility] Comment on above: Order Comment: Speci men Type: BLOOD SPECIMENOrdering Facility: [facility] Address: [address] [place] [address] Performed By: #### 5 7021-8 ####[facility] MILLTOWNCLIA [id number] [place] [address] [place] Monocytes (Bld) [#/Vol] 10*3/uL Normal <0.87 [facility] Comment on above: Order Comment: Speci men Type: BLOOD SPECIMENOrdering Facility: [facility] Address: [address] [place] [address] Performed By: #### 5 7021-8 ####[facility] MILLWNCLIA [id number] [place] [address] [place] Monocytes/100 WBC (Bld) 0.5 % Normal [facility] Comment on above: Order Comment: Speci men Type: BLOOD SPECIMENOrdering Facility: [facility] Address: [address] [place] [address] Performed By: #### 5 7021-8 ####[facility] MEDICAL CENTERLIA [id number] [place] [address] [place] Neutrophils (Bld) [#/Vol] 3.26 10*3/uL Normal 1.45-7.50 [facility] Comment on above: Order Comment: Speci men Type: BLOOD SPECIMENOrdering Facility: [facility] Address: [address] [place] [address] Performed By: #### 5 7021-8 ####[facility] MILLWNCLIA [id number] [place] [address] [place] Neutrophils/100 WBC (Bld) 86.8 % Normal [facility] Comment on above: Order Comment: Speci men Type: BLOOD SPECIMENOrdering Facility: [facility] Address: [address] [place] [address] Performed By: #### 5 7021-8 ####[facility] HOSPITALNCLIA [id number] [place] [address] [place] Nucleated RBC (Bld) [#/Vol] 10*3/uL Normal <0.01 [facility] Comment on above: Order Comment: Speci men Type: BLOOD SPECIMENOrdering Facility: [facility] Address: [address] [place] [address] Performed By: #### 5 7021-8 ####[facility] [id number] [place] [address] [place] Nucleated RBC/100 WBC (Bld) [Ratio] 0.0 /[address] [facility] Comment on above: Order Comment: Speci men Type: BLOOD SPECIMENOrdering Facility: [facility] Address: [address] [place] [address] Performed By: #### 5 7021-8 ####[facility]OSPITALNCCENTRAL VALLEY [facility] [id number] [place] [address] [place] Platelet mean volume (Bld) [Entitic vol] 9.8 fL Normal 9.0-12.7 [facility] Comment on above: Order Comment: Speci men Type: BLOOD SPECIMENOrdering Facility: [facility] Address: [address] [place] [address] Performed By: #### 5 7021-8 ####[facility]OSPITALNCCENTRAL VALLEY [facility] [id number] [place] [address] [place] Platelets (Bld) [#/Vol] 100 10*3/uL Low 150-400 [facility] Comment on above: Order Comment: Speci men Type: BLOOD SPECIMENOrdering Facility: [facility] Address: [address] [place] [address] Result Comment: No c lot detected. Performed By: #### 5 7021-8 ####[facility]LES HOSPITALNCLI [id number] [place] [address] [place] RBC (Bld) [#/Vol] 3.05 10*6/uL Low 3.90-5.20 [facility] Comment on above: Order Comment: Speci men Type: BLOOD SPECIMENOrdering Facility: [facility] Address: [address] [place] [address] Performed By: #### 5 7021-8 ####[facility] CLAY COUNTYA [id number] [place] [address] [place] WBC (Bld) [#/Vol] 3.76 10*3/uL Normal 3.70-11.00 [facility] Comment on above: Order Comment: Speci men Type: BLOOD SPECIMENOrdering Facility: [facility] Address: [address] [place] [address] Performed By: #### 5 7021-8 ####[facility] [id number] [place] [address] [place] CBC W Auto Differential pane l (Bld)on 12-02-2024 Basophils (Bld) [#/Vol] 10*3/uL Normal <0.11 [facility] Comment on above: Order Comment: Speci men Type: BLOOD SPECIMENOrdering Facility: [facility] Address: [address] [place] [address] Performed By: #### 5 7021-8 ####[facility] [id number] [place] [address] [place] Basophils/100 WBC (Bld) 0.4 % Normal [facility] Comment on above: Order Comment: Speci men Type: BLOOD SPECIMENOrdering Facility: [facility] Address: [address] [place] [address] Performed By: #### 5 7021-8 ####[facility] CLAY COUNTYA [id number] [place] [address] [place] Differential cell count method Nom (Bld) Auto Normal [facility] Comment on above: Order Comment: Speci men Type: BLOOD SPECIMENOrdering Facility: [facility] Address: [address] [place] [address] Performed By: #### 5 7021-8 ####[facility] MILLTOWNCLIA [id number] [place] [address] [place] Eosinophils (Bld) [#/Vol] 10*3/uL Normal <0.46 [facility] Comment on above: Order Comment: Speci men Type: BLOOD SPECIMENOrdering Facility: [facility] Address: [address] [place] [address] Performed By: #### 5 7021-8 ####[facility] MILLWNCLIA [id number] [place] [address] [place] Eosinophils/100 WBC (Bld) 0.9 % Normal [facility] Comment on above: Order Comment: Speci men Type: BLOOD SPECIMENOrdering Facility: [facility] Address: [address] [place] [address] Performed By: #### 5 7021-8 ####[facility] CENTERWNCLIA [id number] [place] [address] [place] Erythrocyte distribution width (RBC) [Ratio] 14.4 % Normal 11.5-15.0 [facility] Comment on above: Order Comment: Speci men Type: BLOOD SPECIMENOrdering Facility: [facility] Address: [address] [place] [address] Performed By: #### 5 7021-8 ####[facility] MILLTOWNCLIA [id number] [place] [address] [place] Hematocrit (Bld) [Volume fraction] 28.0 % Low 36.0-46.0 [facility] Comment on above: Order Comment: Speci men Type: BLOOD SPECIMENOrdering Facility: [facility] Address: [address] [place] [address] Performed By: #### 5 7021-8 ####[facility] [id number] [place] [address] [place] Hemoglobin (Bld) [Mass/Vol] 9.2 g/dL Low 11.5-15.5 [facility] Comment on above: Order Comment: Speci men Type: BLOOD SPECIMENOrdering Facility: [facility] Address: [address] [place] [address] Performed By: #### 5 7021-8 ####[facility] [id number] [place] [address] [place] Immature granulocytes (Bld) [#/Vol] 10*3/uL Normal <0.10 [facility] Comment on above: Order Comment: Speci men Type: BLOOD SPECIMENOrdering Facility: [facility] Address: [address] [place] [address] Performed By: #### 5 7021-8 ####[facility] [id number] [place] [address] [place] Immature granulocytes/100 WBC (Bld) 0.0 % Normal [facility] Comment on above: Order Comment: Speci men Type: BLOOD SPECIMENOrdering Facility: [facility] Address: [address] [place] [address] Performed By: #### 5 7021-8 ####[facility] [id number] [place] [address] [place] Lymphocytes (Bld) [#/Vol] 0.87 10*3/uL Low 1.00-4.00 [facility] Comment on above: Order Comment: Speci men Type: BLOOD SPECIMENOrdering Facility: [facility] Address: [address] [place] [address] Performed By: #### 5 7021-8 ####[facility] [id number] [place] [address] [place] Lymphocytes/100 WBC (Bld) 37.3 % Normal [facility] Comment on above: Order Comment: Speci men Type: BLOOD SPECIMENOrdering Facility: [facility] Address: [address] [place] [address] Performed By: #### 5 7021-8 ####[facility]PITALNCCENTR[facility] [id number] [place] [address] [place] MCH (RBC) [Entitic mass] 30.9 pg Normal 26.0-34.0 [facility] Comment on above: Order Comment: Speci men Type: BLOOD SPECIMENOrdering Facility: [facility] Address: [address] [place] [address] Performed By: #### 5 7021-8 ####[facility]ITALNCCENTR[facility] [id number] [place] [address] [place] MCHC (RBC) [Mass/Vol] 32.9 g/dL Normal 30.5-36.0 [facility] Comment on above: Order Comment: Speci men Type: BLOOD SPECIMENOrdering Facility: [facility] Address: [address] [place] [address] Performed By: #### 5 7021-8 ####[facility] HOSPITALNCLIA [id number] [address] [place] MCV (RBC) [Entitic vol] 94.0 fL Normal 80.0-100.0 [facility] Comment on above: Order Comment: Speci men Type: BLOOD SPECIMENOrdering Facility: [facility] Address: [address] [place], [place] [address] Performed By: #### 5 7021-8 ####[facility] HOSPITALNCA [id number] [address] [place] Monocytes (Bld) [#/Vol] 0.39 10*3/uL Normal <0.87 [facility] Comment on above: Order Comment: Speci men Type: BLOOD SPECIMENOrdering Facility: [facility] Address: [address] [place] [address] Performed By: #### 5 7021-8 ####[facility]OSPITALNCLIA [id number] [place] [address] [place] Monocytes/100 WBC (Bld) 16.7 % Normal [facility] Comment on above: Order Comment: Speci men Type: BLOOD SPECIMENOrdering Facility: [facility] Address: [address] [place] [address] Performed By: #### 5 7021-8 ####[facility] CENTERLIA [id number] [place] [address] [place] Neutrophils (Bld) [#/Vol] 1.04 10*3/uL Low 1.45-7.50 [facility] Comment on above: Order Comment: Speci men Type: BLOOD SPECIMENOrdering Facility: [facility] Address: [address] [place] [address] Performed By: #### 5 7021-8 ####[facility] CENTERLIA [id number] [place] [address] [place] Neutrophils/100 WBC (Bld) 44.7 % Normal [facility] Comment on above: Order Comment: Speci men Type: BLOOD SPECIMENOrdering Facility: [facility] Address: [address] [place] [address] Performed By: #### 5 7021-8 ####[facility] CENTERLIA [id number] [place] [address] [place] Nucleated RBC (Bld) [#/Vol] 10*3/uL Normal <0.01 [facility] Comment on above: Order Comment: Speci men Type: BLOOD SPECIMENOrdering Facility: [facility] Address: [address] [place] [address] Performed By: #### 5 7021-8 ####[facility] CENTERLIA [id number] [place] [address] [place] Nucleated RBC/100 WBC (Bld) [Ratio] 0.0 /[address] [facility] Comment on above: Order Comment: Speci men Type: BLOOD SPECIMENOrdering Facility: [facility] Address: [address] [place] [address] Performed By: #### 5 7021-8 ####[facility]OSPITALCALVIN [id number] [place] [address] [place] Platelet mean volume (Bld) [Entitic vol] 10.1 fL Normal 9.0-12.7 [facility] Comment on above: Order Comment: Speci men Type: BLOOD SPECIMENOrdering Facility: [facility] Address: [address] [place] [address] Performed By: #### 5 7021-8 ####[facility]OSPITALIGGYCENTRAL VALLEY [facility] [id number] [place] [address] [place] Platelets (Bld) [#/Vol] 105 10*3/uL Low 150-400 [facility] Comment on above: Order Comment: Speci men Type: BLOOD SPECIMENOrdering Facility: [facility] Address: [address] [place] [address] Result Comment: No c lot detected. Performed By: #### 5 7021-8 ####[facility]ITALCALVIN [id number] [place] [address] [place] RBC (Bld) [#/Vol] 2.98 10*6/uL Low 3.90-5.20 [facility] Comment on above: Order Comment: Speci men Type: BLOOD SPECIMENOrdering Facility: [facility] Address: [address] [place] [address] Performed By: #### 5 7021-8 ####[facility] HOSPITALNCLIA [id number] [place] [address] [place] WBC (Bld) [#/Vol] 2.33 10*3/uL Low 3.70-11.00 [facility] Comment on above: Order Comment: Speci men Type: BLOOD SPECIMENOrdering Facility: [facility] Address: [address] [place] [address] Performed By: #### 5 7021-8 ####[facility] CENTERDEMETRIO [id number] [place] [address] [place] CNOVSPon 12-02-[address] [facility] CNPNon 12-02-[address] [facility] Cancer Ag125 SerPl-aCncon Cancer Ag 125 Qn 6 [arb'U]/mL Normal <39 [facility] Comment on above: Order Comment: Cheng cooley Type: BLOOD SPECIMENOrdering Facility: [facility] Address: [address] [place] [address] Result Comment: CA 1 25 test methodology [...] (CA 125 II) [package insert V 1.0 Jamaican]. [facility], [place], [place] (July 2015) Performed By: #### 1 0334-1 ####[facility] LABORATORYCLIA [id number] [place] [address] [place] Comprehensive metabolic 2000 panelon 12-02-2024 Albumin [Mass/Vol] 4.3 g/dL Normal 3.9-4.9 [facility] Comment on above: Order Comment: Bekai yasir Type: BLOOD SPECIMENOrdering Facility: [facility] Address: [address] [place] [address] Performed By: #### 2 4323-8, 71069-2 ####[facility] CENTERLIA [id number] [place] [address] [place] ALP [Catalytic activity/Vol] 69 U/L Normal 34-123 [facility] Comment on above: Order Comment: Speci men Type: BLOOD SPECIMENOrdering Facility: [facility] Address: [address] [place] [address] Performed By: #### 2 4323-8, 46256-8 ####[facility] MILLTOWNCLIA [id number] [place] [address] [place] ALT [Catalytic activity/Vol] 11 U/L Normal 7-38 [facility] Comment on above: Order Comment: Speci men Type: BLOOD SPECIMENOrdering Facility: [facility] Address: [address] [place] [address] Performed By: #### 2 4323-8, 64955-7 ####[facility] MED[facility] CENTERJULIUSLIA [id number] [place] [address] [place] Anion gap [Moles/Vol] 9 mmol/L Normal 8-15 [facility] Comment on above: Order Comment: Speci men Type: BLOOD SPECIMENOrdering Facility: [facility] Address: [address] [place] [address] Performed By: #### 2 4323-8, 09333-6 ####[facility] MILLBEVERLYLIA [id number] [place] [address] [place] AST [Catalytic activity/Vol] 15 U/L Normal 13-35 [facility] Comment on above: Order Comment: Speci men Type: BLOOD SPECIMENOrdering Facility: [facility] Address: [address] [place] [address] Performed By: #### 2 4323-8, 21067-6 ####[facility] - VENICEEDGARWNCLIA [id number] [place] [address] [place] Bilirubin [Mass/Vol] mg/dL Low 0.2-1.3 [facility] Comment on above: Order Comment: Speci men Type: BLOOD SPECIMENOrdering Facility: [facility] Address: [address] [place] [address] Performed By: #### 2 432-8, ####[facility] CENTERWIGGYLIA [id number] [place] [address] [place] Calcium [Mass/Vol] 9.5 mg/dL Normal 8.5-10.2 [facility] Comment on above: Order Comment: Speci men Type: BLOOD SPECIMENOrdering Facility: [facility] Address: [address] [place] [address] Performed By: #### 2 432-8, ####[facility] CLAY COUNTYA [id number] [place] [address] [place] Chloride [Moles/Vol] 102 mmol/L Normal 98-107 [facility] Comment on above: Order Comment: Speci men Type: BLOOD SPECIMENOrdering Facility: [facility] Address: [address] [place] [address] Performed By: #### 2 432-8, ####[facility] CENTERLIA [id number] [place] [address] [place] CO2 [Moles/Vol] 26 mmol/L Normal 22-30 [facility] Comment on above: Order Comment: Speci men Type: BLOOD SPECIMENOrdering Facility: [facility] Address: [address] [place] [address] Performed By: #### 2 4323-8, ####[facility] CENTERLIA [id number] [place] [address] [place] Creatinine [Mass/Vol] 0.85 mg/dL Normal 0.58-0.96 [facility] Comment on above: Order Comment: Speci men Type: BLOOD SPECIMENOrdering Facility: [facility] Address: [address] [place], [place] [address] Performed By: #### 2 4323-8, 16908-5 ####[facility] CENTERLIA [id number] [place] [address] [place] Creatinine and Glomerular filtration rate.predicted panel (S/P/Bld) 73 mL/min/1.73m??? Normal >=60 [facility] Comment on above: Order Comment: Cheng cooley Type: BLOOD SPECIMENOrdering Facility: [facility] Address: [address] [place] [address] Result Comment: Ethel mated Glomerular Filtration Rate [...] actual GFR. Performed By: #### 2 4323-8, 74764-6 ####[facility] CENTERLIA [id number] [place] [address] [place] Glucose [Mass/Vol] 95 mg/dL Normal 74-99 [facility] Comment on above: Order Comment: Cheng cooley Type: BLOOD SPECIMENOrdering Facility: [facility] Address: [address] [place] [address] Result Comment: The [place] Diabetes Association (ADA) provides guidance for cutoff [...] Standards of Medical Care in Diabetes 2016, [place] [employer]. Diabetes Care. 2016.39(Suppl 1). Performed By: #### 2 4323-8, 81999-4 ####[facility] ALISAMOLINA [id number] [place] [address] [place] Potassium [Moles/Vol] 4.2 mmol/L Normal 3.7-5.1 [facility] Comment on above: Order Comment: Speci men Type: BLOOD SPECIMENOrdering Facility: [facility] Address: [address] [place] [address] Performed By: #### 2 4323-8, 20201-0 ####[facility] ALISAARAPAHOCALVIN [id number] [place] [address] [place] Protein [Mass/Vol] 6.8 g/dL Normal 6.3-8.0 [facility] Comment on above: Order Comment: Speci men Type: BLOOD SPECIMENOrdering Facility: [facility] Address: [address] [place] [address] Performed By: #### 2 4323-8, 53352-2 ####[facility]OSPITALKATERINA [id number] [place] [address] [place] Sodium [Moles/Vol] 137 mmol/L Normal 136-144 [facility] Comment on above: Order Comment: Speci men Type: BLOOD SPECIMENOrdering Facility: [facility] Address: [address] [place] [address] Performed By: #### 2 4323-8, ####[facility] HOSPITALCALVIN [id number] [place] [address] [place] Urea nitrogen [Mass/Vol] 18 mg/dL Normal 7-21 [facility] Comment on above: Order Comment: Speci men Type: BLOOD SPECIMENOrdering Facility: [facility] Address: [address] [place] [address] Performed By: #### 2 4323-8, ####[facility] MILLTOWNCLIA [id number] [place] [address] [place] Magnesium SerPl-mCncon 12-02 Magnesium [Mass/Vol] 2.0 mg/dL Normal 1.7-2.3 [facility] Comment on above: Order Comment: Speci men Type: BLOOD SPECIMENOrdering Facility: [facility] Address: [address] [place] [address] Performed By: #### 2 4323-8, 95290-9 ####[facility] MILLTOWNCLIA [id number] [place] [address] [place] CBC W Auto Differential pane l (Bld)on 11-11-2024 Basophils (Bld) [#/Vol] 0.03 10*3/uL Normal <0.11 [facility] Comment on above: Order Comment: Speci men Type: BLOOD SPECIMENOrdering Facility: [facility] Address: [address] [place] [address] Performed By: #### 5 7021-8 ####[facility] HOSPITALNCLIA [id number] [address] STATES [facility] Basophils/100 WBC (Bld) 0.8 % Normal [facility] Comment on above: Order Comment: Speci men Type: BLOOD SPECIMENOrdering Facility: [facility] Address: [address] [place] [address] Performed By: #### 5 7021-8 ####[facility] MILLWNCLIA [id number] [address] STATES [facility] Differential cell count method Nom (Bld) Auto Normal [facility] Comment on above: Order Comment: Speci men Type: BLOOD SPECIMENOrdering Facility: [facility] Address: [address] [place] [address] Performed By: #### 5 7021-8 ####[facility] HOSPITALIGGYLIA [id number] [place] [address] [place] Eosinophils (Bld) [#/Vol] 0.04 10*3/uL Normal <0.46 [facility] Comment on above: Order Comment: Speci men Type: BLOOD SPECIMENOrdering Facility: [facility] Address: [address] [place] [address] Performed By: #### 5 7021-8 ####[facility] CLAY COUNTYA [id number] [place] [address] [place] Eosinophils/100 WBC (Bld) 1.0 % Normal [facility] Comment on above: Order Comment: Speci men Type: BLOOD SPECIMENOrdering Facility: [facility] Address: [address] [place] [address] Performed By: #### 5 7021-8 ####[facility] HOSPITALNCLIBoo [id number] [place] [address] [place] Erythrocyte distribution width (RBC) [Ratio] 13.4 % Normal 11.5-15.0 [facility] Comment on above: Order Comment: Speci men Type: BLOOD SPECIMENOrdering Facility: [facility] Address: [address] [place] [address] Performed By: #### 5 7021-8 ####[facility] HOSPITALNCLIA [id number] [place] [address] [place] Hematocrit (Bld) [Volume fraction] 30.1 % Low 36.0-46.0 [facility] Comment on above: Order Comment: Speci men Type: BLOOD SPECIMENOrdering Facility: [facility] Address: [address] [place] [address] Performed By: #### 5 7021-8 ####[facility] HOSPITALNCLIA [id number] [place] [address] [place] Hemoglobin (Bld) [Mass/Vol] 9.8 g/dL Low 11.5-15.5 [facility] Comment on above: Order Comment: Speci men Type: BLOOD SPECIMENOrdering Facility: [facility] Address: [address] [place] [address] Performed By: #### 5 7021-8 ####[facility] [id number] [place] [address] [place] Immature granulocytes (Bld) [#/Vol] 10*3/uL Normal <0.10 [facility] Comment on above: Order Comment: Speci men Type: BLOOD SPECIMENOrdering Facility: [facility] Address: [address] [place] [address] Performed By: #### 5 7021-8 ####[facility] [id number] [place] [address] [place] Immature granulocytes/100 WBC (Bld) 0.3 % Normal [facility] Comment on above: Order Comment: Speci men Type: BLOOD SPECIMENOrdering Facility: [facility] Address: [address] [place] [address] Performed By: #### 5 7021-8 ####[facility] [id number] [place] [address] [place] Lymphocytes (Bld) [#/Vol] 0.99 10*3/uL Low 1.00-4.00 [facility] Comment on above: Order Comment: Speci men Type: BLOOD SPECIMENOrdering Facility: [facility] Address: [address] [place] [address] Performed By: #### 5 7021-8 ####[facility] [id number] [place] [address] [place] Lymphocytes/100 WBC (Bld) 26.0 % Normal [facility] Comment on above: Order Comment: Speci men Type: BLOOD SPECIMENOrdering Facility: [facility] Address: [address] [place] [address] Performed By: #### 5 7021-8 ####[facility] MILLEDGARWNCLIA [id number] [place] [address] [place] MCH (RBC) [Entitic mass] 30.2 pg Normal 26.0-34.0 [facility] Comment on above: Order Comment: Speci men Type: BLOOD SPECIMENOrdering Facility: [facility] Address: [address] [place] [address] Performed By: #### 5 7021-8 ####[facility]OSPITALNCLIA [id number] [place] [address] [place] MCHC (RBC) [Mass/Vol] 32.6 g/dL Normal 30.5-36.0 [facility] Comment on above: Order Comment: Speci men Type: BLOOD SPECIMENOrdering Facility: [facility] Address: [address] [place] [address] Performed By: #### 5 7021-8 ####[facility]OSPITALNCLIA [id number] [place] [address] [place] MCV (RBC) [Entitic vol] 92.9 fL Normal 80.0-100.0 [facility] Comment on above: Order Comment: Speci men Type: BLOOD SPECIMENOrdering Facility: [facility] Address: [address] [place] [address] Performed By: #### 5 7021-8 ####[facility] MILLARAPAHONCLIA [id number] [place] [address] [place] Monocytes (Bld) [#/Vol] 0.38 10*3/uL Normal <0.87 [facility] Comment on above: Order Comment: Speci men Type: BLOOD SPECIMENOrdering Facility: [facility] Address: [address] [place] [address] Performed By: #### 5 7021-8 ####[facility] CENTERLIA [id number] [place] [address] [place] Monocytes/100 WBC (Bld) 10.0 % Normal [facility] Comment on above: Order Comment: Speci men Type: BLOOD SPECIMENOrdering Facility: [facility] Address: [address] [place] [address] Performed By: #### 5 7021-8 ####[facility] [id number] [place] [address] [place] Neutrophils (Bld) [#/Vol] 2.36 10*3/uL Normal 1.45-7.50 [facility] Comment on above: Order Comment: Speci men Type: BLOOD SPECIMENOrdering Facility: [facility] Address: [address] [place] [address] Performed By: #### 5 7021-8 ####[facility] [id number] [place] [address] [place] Neutrophils/100 WBC (Bld) 61.9 % Normal [facility] Comment on above: Order Comment: Speci men Type: BLOOD SPECIMENOrdering Facility: [facility] Address: [address] [place] [address] Performed By: #### 5 7021-8 ####[facility] [id number] [place] [address] [place] Nucleated RBC (Bld) [#/Vol] 10*3/uL Normal <0.01 [facility] Comment on above: Order Comment: Speci men Type: BLOOD SPECIMENOrdering Facility: [facility] Address: [address] [place] [address] Performed By: #### 5 7021-8 ####[facility] [id number] [place] [address] [place] Nucleated RBC/100 WBC (Bld) [Ratio] 0.0 /[address] [facility] Comment on above: Order Comment: Speci men Type: BLOOD SPECIMENOrdering Facility: [facility] Address: [address] [place] [address] Performed By: #### 5 7021-8 ####[facility] PATRICIO TORIBIONCDEMETRIO [id number] [place] [address] [place] Platelet mean volume (Bld) [Entitic vol] 8.9 fL Low 9.0-12.7 [facility] Comment on above: Order Comment: Speci men Type: BLOOD SPECIMENOrdering Facility: [facility] Address: [address] [place] [address] Performed By: #### 5 7021-8 ####[facility]OSPITALNCDEMETRIO [id number] [place] [address] [place] Platelets (Bld) [#/Vol] 165 10*3/uL Normal 150-400 [facility] Comment on above: Order Comment: Speci men Type: BLOOD SPECIMENOrdering Facility: [facility] Address: [address] [place] [address] Performed By: #### 5 7021-8 ####[facility]OSPITALNCLIA [id number] [place] [address] [place] RBC (Bld) [#/Vol] 3.24 10*6/uL Low 3.90-5.20 [facility] Comment on above: Order Comment: Speci men Type: BLOOD SPECIMENOrdering Facility: [facility] Address: [address] [place] [address] Performed By: #### 5 7021-8 ####[facility]OSPITALNCLIA [id number] [place] [address] [place] WBC (Bld) [#/Vol] 3.81 10*3/uL Normal 3.70-11.00 [facility] Comment on above: Order Comment: Speci men Type: BLOOD SPECIMENOrdering Facility: [facility] Address: [facility] [place] [address] Performed By: #### 5 7021-8 ####[facility]OSPITALNCCENTRAL [facility] [id number] [place] [address] [place] CNOVSPon 11-11-[address] [facility] Cancer Ag125 SerPl-aCncon Cancer Ag 125 Qn 7 [arb'U]/mL Normal <39 [facility] Comment on above: Order Comment: Speci men Type: BLOOD SPECIMENOrdering Facility: [facility] Address: [address] [place] [address] Result Comment: CA 1 25 test methodology [...] (CA 125 II) [package insert V 1.0 Jamaican]. [facility], [place], [place] (July 2015) Performed By: #### 1 0334-1 ####[facility] LABCLIA [id number] [place] [address] [place] Comprehensive metabolic 2000 panelon 11-11-2024 Albumin [Mass/Vol] 4.5 g/dL Normal 3.9-4.9 [facility] Comment on above: Order Comment: Speci men Type: BLOOD SPECIMENOrdering Facility: [facility] Address: [address] [place] [address] Performed By: #### 2 4323-8, 45787-6 ####[facility]OSPITALNCLIA [id number] [place] [address] [place] ALP [Catalytic activity/Vol] 73 U/L Normal 34-123 [facility] Comment on above: Order Comment: Speci men Type: BLOOD SPECIMENOrdering Facility: [facility] Address: [address] [place], [place] [address] Performed By: #### 2 4323-8, ####[facility] APTRICIO ALISANEALA [id number] [place] [address] [place] ALT [Catalytic activity/Vol] 13 U/L Normal 7-38 [facility] Comment on above: Order Comment: Speci men Type: BLOOD SPECIMENOrdering Facility: [facility] Address: [address] [place] [address] Performed By: #### 2 4323-8, ####[facility] ALISAARAPAHONCOPALA [id number] [place] [address] [place] Anion gap [Moles/Vol] 13 mmol/L Normal 8-15 [facility] Comment on above: Order Comment: Speci men Type: BLOOD SPECIMENOrdering Facility: [facility] Address: [address] [place] [address] Performed By: #### 2 4323-8, ####[facility]OSPITALNCLIA [id number] [place] [address] [place] AST [Catalytic activity/Vol] 15 U/L Normal 13-35 [facility] Comment on above: Order Comment: Speci men Type: BLOOD SPECIMENOrdering Facility: [facility] Address: [address] [place] [address] Performed By: #### 2 4323-8, ####[facility]OSPITALNCLIA [id number] [place] [address] [place] Bilirubin [Mass/Vol] 0.2 mg/dL Normal 0.2-1.3 [facility] Comment on above: Order Comment: Speci men Type: BLOOD SPECIMENOrdering Facility: [facility] Address: [address] [place] [address] Performed By: #### 2 4323-8, ####[facility] PATRICIO MILLTOWNCLIA [id number] [place] [address] [place] Calcium [Mass/Vol] 10.1 mg/dL Normal 8.5-10.2 [facility] Comment on above: Order Comment: Speci men Type: BLOOD SPECIMENOrdering Facility: [facility] Address: [address] [place] [address] Performed By: #### 2 432-8, ####[facility] MILLTOWNCLIA [id number] [place] [address] [place] Chloride [Moles/Vol] 98 mmol/L Normal 98-107 [facility] Comment on above: Order Comment: Speci men Type: BLOOD SPECIMENOrdering Facility: [facility] Address: [address] [place] [address] Performed By: #### 2 4328, ####[facility] MILLTOWNCLIA [id number] [place] [address] [place] CO2 [Moles/Vol] 28 mmol/L Normal 22-30 [facility] Comment on above: Order Comment: Speci men Type: BLOOD SPECIMENOrdering Facility: [facility] Address: [address] [place] [address] Performed By: #### 2 4328, ####[facility] MILLTOWNCLIA [id number] [place] [address] [place] Creatinine [Mass/Vol] 0.77 mg/dL Normal 0.58-0.96 [facility] Comment on above: Order Comment: Speci men Type: BLOOD SPECIMENOrdering Facility: [facility] Address: [address] [place] [address] Performed By: #### 2 4323-8, ####[facility] MILLTOWNCLIA [id number] [place] [address] [place] Creatinine and Glomerular filtration rate.predicted panel (S/P/Bld) 82 mL/min/1.73m??? Normal >=60 [facility] Comment on above: Order Comment: Cheng cooley Type: BLOOD SPECIMENOrdering Facility: [facility] Address: [address] [place] [address] Result Comment: Ethel mated Glomerular Filtration Rate [...] actual GFR. Performed By: #### 2 4323-8, 62256-6 ####[facility] CLAY COUNTYA [id number] [place] [address] [place] Glucose [Mass/Vol] 105 mg/dL High 74-99 [facility] Comment on above: Order Comment: Cheng cooley Type: BLOOD SPECIMENOrdering Facility: [facility] Address: [address] [place] [address] Result Comment: The [place] Diabetes [employer] (ADA) provides guidance for cutoff [...] Standards of Medical Care in Diabetes 2016, [place] [employer]. Diabetes Care. 2016.39(Suppl 1). Performed By: #### 2 4323-8, 19040-1 ####[facility] CENTERLIA [id number] [place] [address] [place] Potassium [Moles/Vol] 3.6 mmol/L Low 3.7-5.1 [facility] Comment on above: Order Comment: Speci men Type: BLOOD SPECIMENOrdering Facility: [facility] Address: [address] [place] [address] Performed By: #### 2 4323-8, 46689-7 ####[facility] MILLCARINAA [id number] [place] [address] [place] Protein [Mass/Vol] 7.3 g/dL Normal 6.3-8.0 [facility] Comment on above: Order Comment: Speci men Type: BLOOD SPECIMENOrdering Facility: [facility] Address: [address] [place] [address] Performed By: #### 2 4323-8, 48147-1 ####[facility] MILLMOLINA [id number] [place] [address] [place] Sodium [Moles/Vol] 139 mmol/L Normal 136-144 [facility] Comment on above: Order Comment: Speci men Type: BLOOD SPECIMENOrdering Facility: [facility] Address: [address] [place] [address] Performed By: #### 2 4323-8, ####[facility] MILLCARINAA [id number] [place] [address] [place] Urea nitrogen [Mass/Vol] 19 mg/dL Normal 7-21 [facility] Comment on above: Order Comment: Speci men Type: BLOOD SPECIMENOrdering Facility: [facility] Address: [address] [place] [address] Performed By: #### 2 4323-8, 10310-1 ####[facility] MILLARAPAHONCLIA [id number] [place] [address] [place] Magnesium SerPl-ncon 11-11 Magnesium [Mass/Vol] 2.0 mg/dL Normal 1.7-2.3 [facility] Comment on above: Order Comment: Speci men Type: BLOOD SPECIMENOrdering Facility: [facility] Address: [address] [place] [address] Performed By: #### 2 4323-8, 61152-0 ####[facility] CLAY COUNTYA [id number] [place] [address] [place] CBC W Auto Differential pane l (Bld)on 10-22-2024 Basophils (Bld) [#/Vol] 10*3/uL Normal <0.11 [facility] Comment on above: Order Comment: Speci men Type: BLOOD SPECIMENOrdering Facility: [facility] Address: [address] [place] [address] Performed By: #### 5 7021-8 ####[facility] [id number] [place] [address] [place] Basophils/100 WBC (Bld) 0.1 % Normal [facility] Comment on above: Order Comment: Speci men Type: BLOOD SPECIMENOrdering Facility: [facility] Address: [address] [place] [address] Performed By: #### 5 7021-8 ####[facility] [id number] [place] [address] [place] Differential cell count method Nom (Bld) Auto Normal [facility] Comment on above: Order Comment: Speci men Type: BLOOD SPECIMENOrdering Facility: [facility] Address: [address] [place] [address] Performed By: #### 5 7021-8 ####[facility] CENTERLIA [id number] [place] [address] [place] Eosinophils (Bld) [#/Vol] 10*3/uL Normal <0.46 [facility] Comment on above: Order Comment: Speci men Type: BLOOD SPECIMENOrdering Facility: [facility] Address: [address] [place] [address] Performed By: #### 5 7021-8 ####[facility] MIKAYLAA [id number] [place] [address] [place] Eosinophils/100 WBC (Bld) 0.0 % Normal [facility] Comment on above: Order Comment: Speci men Type: BLOOD SPECIMENOrdering Facility: [facility] Address: [address] [place] [address] Performed By: #### 5 7021-8 ####[facility] ALISAARAPAHOKATERINA [id number] [place] [address] [place] Erythrocyte distribution width (RBC) [Ratio] 13.4 % Normal 11.5-15.0 [facility] Comment on above: Order Comment: Speci men Type: BLOOD SPECIMENOrdering Facility: [facility] Address: [address] [place] [address] Performed By: #### 5 7021-8 ####[facility] [id number] [place] [address] [place] Hematocrit (Bld) [Volume fraction] 31.4 % Low 36.0-46.0 [facility] Comment on above: Order Comment: Speci men Type: BLOOD SPECIMENOrdering Facility: [facility] Address: [address] [place] [address] Performed By: #### 5 7021-8 ####[facility]OSPITALNCLIA [id number] [place] [address] [place] Hemoglobin (Bld) [Mass/Vol] 10.3 g/dL Low 11.5-15.5 [facility] Comment on above: Order Comment: Speci men Type: BLOOD SPECIMENOrdering Facility: [facility] Address: [address] [place] [address] Performed By: #### 5 7021-8 ####[facility] CENTERLIA [id number] [place] [address] [place] Immature granulocytes (Bld) [#/Vol] 0.03 10*3/uL Normal <0.10 [facility] Comment on above: Order Comment: Speci men Type: BLOOD SPECIMENOrdering Facility: [facility] Address: [address] [place] [address] Performed By: #### 5 7021-8 ####[facility] [id number] [place] [address] [place] Immature granulocytes/100 WBC (Bld) 0.4 % Normal [facility] Comment on above: Order Comment: Speci men Type: BLOOD SPECIMENOrdering Facility: [facility] Address: [address] [place] [address] Performed By: #### 5 7021-8 ####[facility] [id number] [place] [address] [place] Lymphocytes (Bld) [#/Vol] 0.60 10*3/uL Low 1.00-4.00 [facility] Comment on above: Order Comment: Speci men Type: BLOOD SPECIMENOrdering Facility: [facility] Address: [address] [place] [address] Performed By: #### 5 7021-8 ####[facility] [id number] [place] [address] [place] Lymphocytes/100 WBC (Bld) 8.3 % Normal [facility] Comment on above: Order Comment: Speci men Type: BLOOD SPECIMENOrdering Facility: [facility] Address: [address] [place] [address] Performed By: #### 5 7021-8 ####[facility] [id number] [place] [address] [place] MCH (RBC) [Entitic mass] 30.3 pg Normal 26.0-34.0 [facility] Comment on above: Order Comment: Speci men Type: BLOOD SPECIMENOrdering Facility: [facility] Address: [address] [place] [address] Performed By: #### 5 7021-8 ####[facility]ITALNCCEN[facility] [id number] [place] [address] [place] MCHC (RBC) [Mass/Vol] 32.8 g/dL Normal 30.5-36.0 [facility] Comment on above: Order Comment: Speci men Type: BLOOD SPECIMENOrdering Facility: [facility] Address: [address] [place], [place] [address] Performed By: #### 5 7021-8 ####[facility]ITALNCCEN[facility] [id number] [place] [address] [place] MCV (RBC) [Entitic vol] 92.4 fL Normal 80.0-100.0 [facility] Comment on above: Order Comment: Speci men Type: BLOOD SPECIMENOrdering Facility: [facility] Address: [address] [place] [address] Performed By: #### 5 7021-8 ####[facility] [id number] [place] [address] [place] Monocytes (Bld) [#/Vol] 0.05 10*3/uL Normal <0.87 [facility] Comment on above: Order Comment: Speci men Type: BLOOD SPECIMENOrdering Facility: [facility] Address: [address] [place] [address] Performed By: #### 5 7021-8 ####[facility]ITALNCCEN[facility] [id number] [place] [address] [place] Monocytes/100 WBC (Bld) 0.7 % Normal [facility] Comment on above: Order Comment: Speci men Type: BLOOD SPECIMENOrdering Facility: [facility] Address: [address] [place] [address] Performed By: #### 5 7021-8 ####[facility] ALISATOWNCLIA [id number] [place] [address] [place] Neutrophils (Bld) [#/Vol] 6.57 10*3/uL Normal 1.45-7.50 [facility] Comment on above: Order Comment: Speci men Type: BLOOD SPECIMENOrdering Facility: [facility] Address: [address] [place] [address] Performed By: #### 5 7021-8 ####[facility] MILLWNCLIA [id number] [place] [address] [place] Neutrophils/100 WBC (Bld) 90.5 % Normal [facility] Comment on above: Order Comment: Speci men Type: BLOOD SPECIMENOrdering Facility: [facility] Address: [address] [place] [address] Performed By: #### 5 7021-8 ####[facility] ALISAWNCLIA [id number] [place] [address] [place] Nucleated RBC (Bld) [#/Vol] 10*3/uL Normal <0.01 [facility] Comment on above: Order Comment: Speci men Type: BLOOD SPECIMENOrdering Facility: [facility] Address: [address] [place] [address] Performed By: #### 5 7021-8 ####[facility] MILLWNCLIA [id number] [place] [address] [place] Nucleated RBC/100 WBC (Bld) [Ratio] 0.0 /[address] [facility] Comment on above: Order Comment: Speci men Type: BLOOD SPECIMENOrdering Facility: [facility] Address: [address] [place] [address] Performed By: #### 5 7021-8 ####[facility] HOSPITALIGGYLIA [id number] [place] [address] [place] Platelet mean volume (Bld) [Entitic vol] 9.2 fL Normal 9.0-12.7 [facility] Comment on above: Order Comment: Speci men Type: BLOOD SPECIMENOrdering Facility: [facility] Address: [address] [place] [address] Performed By: #### 5 7021-8 ####[facility] HOSPITALIGGYLIA [id number] [place] [address] [place] Platelets (Bld) [#/Vol] 254 10*3/uL Normal 150-400 [facility] Comment on above: Order Comment: Speci men Type: BLOOD SPECIMENOrdering Facility: [facility] Address: [address] [place] [address] Performed By: #### 5 7021-8 ####[facility] CENTERLIA [id number] [place] [address] [place] RBC (Bld) [#/Vol] 3.40 10*6/uL Low 3.90-5.20 [facility] Comment on above: Order Comment: Speci men Type: BLOOD SPECIMENOrdering Facility: [facility] Address: [address] [place] [address] Performed By: #### 5 7021-8 ####[facility] CENTERLIA [id number] [place] [address] [place] WBC (Bld) [#/Vol] 7.26 10*3/uL Normal 3.70-11.00 [facility] Comment on above: Order Comment: Speci men Type: BLOOD SPECIMENOrdering Facility: [facility] Address: [address] [place] [address] Performed By: #### 5 7021-8 ####[facility] HOSPITALNCLIA [id number] [place] [address] [place] Comprehensive metabolic 2000 panelon 10-22-2024 Albumin [Mass/Vol] 4.4 g/dL Normal 3.9-4.9 [facility] Comment on above: Order Comment: Speci men Type: BLOOD SPECIMENOrdering Facility: [facility] Address: [address] [place] [address] Performed By: #### 1 9123-9, 24518-8 ####[facility] MILLTOWIGGYLIA [id number] [place] [address] [place] ALP [Catalytic activity/Vol] 70 U/L Normal 34-123 [facility] Comment on above: Order Comment: Speci men Type: BLOOD SPECIMENOrdering Facility: [facility] Address: [address] [place] [address] Performed By: #### 1 9123-9, 79956-7 ####[facility] CENTERWNCLIA [id number] [place] [address] [place] ALT [Catalytic activity/Vol] 9 U/L Normal 7-38 [facility] Comment on above: Order Comment: Speci men Type: BLOOD SPECIMENOrdering Facility: [facility] Address: [address] [place] [address] Performed By: #### 1 9123-9, 95831-4 ####[facility] HOSPITALIGGYLIA [id number] [place] [address] [place] Anion gap [Moles/Vol] 14 mmol/L Normal 8-15 [facility] Comment on above: Order Comment: Speci men Type: BLOOD SPECIMENOrdering Facility: [facility] Address: [address] [place] [address] Performed By: #### 1 9123-9, 96658-6 ####[facility] CENTERWNCLIA [id number] [place] [address] [place] AST [Catalytic activity/Vol] 10 U/L Low 13-35 [facility] Comment on above: Order Comment: Speci men Type: BLOOD SPECIMENOrdering Facility: [facility] Address: [address] [place] [address] Performed By: #### 1 9123-9, 41327-6 ####[facility] CENTERLIA [id number] [place] [address] [place] Bilirubin [Mass/Vol] 0.2 mg/dL Normal 0.2-1.3 [facility] Comment on above: Order Comment: Speci men Type: BLOOD SPECIMENOrdering Facility: [facility] Address: [address] [place] [address] Performed By: #### 1 9123-9, 80915-3 ####[facility] [id number] [place] [address] [place] Calcium [Mass/Vol] 9.7 mg/dL Normal 8.5-10.2 [facility] Comment on above: Order Comment: Speci men Type: BLOOD SPECIMENOrdering Facility: [facility] Address: [address] [place] [address] Performed By: #### 1 9123-9, 36117-7 ####[facility] [id number] [place] [address] [place] Chloride [Moles/Vol] 100 mmol/L Normal 98-107 [facility] Comment on above: Order Comment: Speci men Type: BLOOD SPECIMENOrdering Facility: [facility] Address: [address] [place] [address] Performed By: #### 1 9123-9, 27968-7 ####[facility] [id number] [place] [address] [place] CO2 [Moles/Vol] 25 mmol/L Normal 22-30 [facility] Comment on above: Order Comment: Speci men Type: BLOOD SPECIMENOrdering Facility: [facility] Address: [address] [place] [address] Performed By: #### 1 9123-9, 45133-2 ####[facility] ALISAREGIONS HOSPITALBoo [id number] [place] [address] [place] Creatinine [Mass/Vol] 0.73 mg/dL Normal 0.58-0.96 [facility] Comment on above: Order Comment: Speci men Type: BLOOD SPECIMENOrdering Facility: [facility] Address: [address] [place] [address] Performed By: #### 1 9123-9, 03767-4 ####[facility]ITALNCCENTR[facility] [id number] [place] [address] [place] Creatinine and Glomerular filtration rate.predicted panel (S/P/Bld) 88 mL/min/1.73m??? Normal >=60 [facility] Comment on above: Order Comment: Speci men Type: BLOOD SPECIMENOrdering Facility: [facility] Address: [address] [place] [address] Result Comment: Ethel mated Glomerular Filtration Rate [...] actual GFR. Performed By: #### 1 9123-9, 59400-7 ####[facility] CENTERLIA [id number] [place] [address] [place] Glucose [Mass/Vol] 173 mg/dL High 74-99 [facility] Comment on above: Order Comment: Speci men Type: BLOOD SPECIMENOrdering Facility: [facility] Address: [address] [place] [address] Result Comment: The [place] [employer] (ADA) provides guidance for cutoff [...] Standards of Medical Care in Diabetes 2016, [place] [employer]. Diabetes Care. 2016.39(Suppl 1). Performed By: #### 1 9123-9, 87819-6 ####[facility] CLAY COUNTYBoo [id number] [place] [address] [place] Potassium [Moles/Vol] 3.5 mmol/L Low 3.7-5.1 [facility] Comment on above: Order Comment: Speci men Type: BLOOD SPECIMENOrdering Facility: [facility] Address: [address] [place] [address] Performed By: #### 1 9123-9, 67607-1 ####[facility] CLAY COUNTYBoo [id number] [place] [address] [place] Protein [Mass/Vol] 7.1 g/dL Normal 6.3-8.0 [facility] Comment on above: Order Comment: Speci men Type: BLOOD SPECIMENOrdering Facility: [facility] Address: [address] [place] [address] Performed By: #### 1 9123-9, 13046-4 ####[facility] CENTERLIA [id number] [place] [address] [place] Sodium [Moles/Vol] 139 mmol/L Normal 136-144 [facility] Comment on above: Order Comment: Speci men Type: BLOOD SPECIMENOrdering Facility: [facility] Address: [address] [place] [address] Performed By: #### 1 9123-9, 74480-4 ####[facility] MILLWNCLIA [id number] [place] [address] [place] Urea nitrogen [Mass/Vol] 15 mg/dL Normal 7-21 [facility] Comment on above: Order Comment: Speci men Type: BLOOD SPECIMENOrdering Facility: [facility] Address: [address] [place] [address] Performed By: #### 1 9123-9, 97505-1 ####[facility] CENTERLIA [id number] [place] [address] [place] Magnesium SerPl-mCncon 10-22 Magnesium [Mass/Vol] 1.9 mg/dL Normal 1.7-2.3 [facility] Comment on above: Order Comment: Speci men Type: BLOOD SPECIMENOrdering Facility: [facility] Address: [address] [place] [address] Performed By: #### 1 9123-9, 57173-2 ####[facility] CENTERLIA [id number] [place] [address] [place] CNPNon 10-20-[address] [facility] CBC W Auto Differential pane l (Bld)on 10-15-2024 Basophils (Bld) [#/Vol] 0.04 10*3/uL Normal <0.11 [facility] Comment on above: Order Comment: Speci men Type: BLOOD SPECIMENOrdering Facility: [facility] Address: [address] [place] [address] Performed By: #### 5 7021-8 ####[facility] CLAY COUNTYA [id number] [place] [address] [place] Basophils/100 WBC (Bld) 0.7 % Normal [facility] Comment on above: Order Comment: Speci men Type: BLOOD SPECIMENOrdering Facility: [facility] Address: [address] [place] [address] Performed By: #### 5 7021-8 ####[facility] MILLARAPAHONCLIA [id number] [place] [address] [place] Differential cell count method Nom (Bld) Auto Normal [facility] Comment on above: Order Comment: Speci men Type: BLOOD SPECIMENOrdering Facility: [facility] Address: [address] [place] [address] Performed By: #### 5 7021-8 ####[facility]LES HOSPITALIGGYLIA [id number] [place] [address] [place] Eosinophils (Bld) [#/Vol] 0.08 10*3/uL Normal <0.46 [facility] Comment on above: Order Comment: Speci men Type: BLOOD SPECIMENOrdering Facility: [facility] Address: [address] [place] [address] Performed By: #### 5 7021-8 ####[facility] CLAY COUNTYA [id number] [place] [address] [place] Eosinophils/100 WBC (Bld) 1.5 % Normal [facility] Comment on above: Order Comment: Speci men Type: BLOOD SPECIMENOrdering Facility: [facility] Address: [address] [place] [address] Performed By: #### 5 7021-8 ####[facility] HOSPITALIGGYLIA [id number] [place] [address] [place] Erythrocyte distribution width (RBC) [Ratio] 13.5 % Normal 11.5-15.0 [facility] Comment on above: Order Comment: Speci men Type: BLOOD SPECIMENOrdering Facility: [facility] Address: [address] [place] [address] Performed By: #### 5 7021-8 ####[facility] HOSPITALNCLIA [id number] [place] [address] [place] Hematocrit (Bld) [Volume fraction] 32.9 % Low 36.0-46.0 [facility] Comment on above: Order Comment: Speci men Type: BLOOD SPECIMENOrdering Facility: [facility] Address: [address] [place] [address] Performed By: #### 5 7021-8 ####[facility]ITALNCCENTR[facility] [id number] [place] [address] [place] Hemoglobin (Bld) [Mass/Vol] 10.9 g/dL Low 11.5-15.5 [facility] Comment on above: Order Comment: Speci men Type: BLOOD SPECIMENOrdering Facility: [facility] Address: [address] [place] [address] Performed By: #### 5 7021-8 ####[facility]ITALNCCEN[facility] [id number] [place] [address] [place] Immature granulocytes (Bld) [#/Vol] 10*3/uL Normal <0.10 [facility] Comment on above: Order Comment: Speci men Type: BLOOD SPECIMENOrdering Facility: [facility] Address: [address] [place] [address] Performed By: #### 5 7021-8 ####[facility]ITALNCCEN[facility] [id number] [place] [address] [place] Immature granulocytes/100 WBC (Bld) 0.2 % Normal [facility] Comment on above: Order Comment: Speci men Type: BLOOD SPECIMENOrdering Facility: [facility] Address: [address] [place] [address] Performed By: #### 5 7021-8 ####[facility]ITALNCC[facility] [id number] [place] [address] [place] Lymphocytes (Bld) [#/Vol] 1.35 10*3/uL Normal 1.00-4.00 [facility] Comment on above: Order Comment: Speci men Type: BLOOD SPECIMENOrdering Facility: [facility] Address: [address] [place] [address] Performed By: #### 5 7021-8 ####[facility] ALISASANDRA [id number] [place] [address] [place] Lymphocytes/100 WBC (Bld) 25.2 % Normal [facility] Comment on above: Order Comment: Speci men Type: BLOOD SPECIMENOrdering Facility: [facility] Address: [address] [place] [address] Performed By: #### 5 7021-8 ####[facility] HOSPITALNCOPAL [id number] [place] [address] [place] MCH (RBC) [Entitic mass] 31.0 pg Normal 26.0-34.0 [facility] Comment on above: Order Comment: Speci men Type: BLOOD SPECIMENOrdering Facility: [facility] Address: [address] [place] [address] Performed By: #### 5 7021-8 ####[facility] HOSPITALNCBoo [id number] [place] [address] [place] MCHC (RBC) [Mass/Vol] 33.1 g/dL Normal 30.5-36.0 [facility] Comment on above: Order Comment: Speci men Type: BLOOD SPECIMENOrdering Facility: [facility] Address: [address] [place] [address] Performed By: #### 5 7021-8 ####[facility] HOSPITALNCLI [id number] [place] [address] [place] MCV (RBC) [Entitic vol] 93.5 fL Normal 80.0-100.0 [facility] Comment on above: Order Comment: Speci men Type: BLOOD SPECIMENOrdering Facility: [facility] Address: [address] [place] [address] Performed By: #### 5 7021-8 ####[facility] MILLTOWNCLIA [id number] [place] [address] [place] Monocytes (Bld) [#/Vol] 0.52 10*3/uL Normal <0.87 [facility] Comment on above: Order Comment: Speci men Type: BLOOD SPECIMENOrdering Facility: [facility] Address: [address] [place] [address] Performed By: #### 5 7021-8 ####[facility] CENTERLIA [id number] [place] [address] [place] Monocytes/100 WBC (Bld) 9.7 % Normal [facility] Comment on above: Order Comment: Speci men Type: BLOOD SPECIMENOrdering Facility: [facility] Address: [address] [place] [address] Performed By: #### 5 7021-8 ####[facility] CENTERLIA [id number] [place] [address] [place] Neutrophils (Bld) [#/Vol] 3.35 10*3/uL Normal 1.45-7.50 [facility] Comment on above: Order Comment: Speci men Type: BLOOD SPECIMENOrdering Facility: [facility] Address: [address] [place] [address] Performed By: #### 5 7021-8 ####[facility] CENTERLIA [id number] [place] [address] [place] Neutrophils/100 WBC (Bld) 62.7 % Normal [facility] Comment on above: Order Comment: Speci men Type: BLOOD SPECIMENOrdering Facility: [facility] Address: [address] [place] [address] Performed By: #### 5 7021-8 ####[facility] CENTERLIA [id number] [place] [address] [place] Nucleated RBC (Bld) [#/Vol] 10*3/uL Normal <0.01 [facility] Comment on above: Order Comment: Speci men Type: BLOOD SPECIMENOrdering Facility: [facility] Address: [address] [place] [address] Performed By: #### 5 7021-8 ####[facility] [id number] [place] [address] [place] Nucleated RBC/100 WBC (Bld) [Ratio] 0.0 /[address] [facility] Comment on above: Order Comment: Speci men Type: BLOOD SPECIMENOrdering Facility: [facility] Address: [address] [place] [address] Performed By: #### 5 7021-8 ####[facility] [id number] [place] [address] [place] Platelet mean volume (Bld) [Entitic vol] 9.0 fL Normal 9.0-12.7 [facility] Comment on above: Order Comment: Speci men Type: BLOOD SPECIMENOrdering Facility: [facility] Address: [address] [place] [address] Performed By: #### 5 7021-8 ####[facility] [id number] [place] [address] [place] Platelets (Bld) [#/Vol] 284 10*3/uL Normal 150-400 [facility] Comment on above: Order Comment: Speci men Type: BLOOD SPECIMENOrdering Facility: [facility] Address: [address] [place] [address] Performed By: #### 5 7021-8 ####[facility] [id number] [place] [address] [place] RBC (Bld) [#/Vol] 3.52 10*6/uL Low 3.90-5.20 [facility] Comment on above: Order Comment: Speci men Type: BLOOD SPECIMENOrdering Facility: [facility] Address: [address] [place] [address] Performed By: #### 5 7021-8 ####[facility] HOSPITALNCA [id number] [place] [address] [place] WBC (Bld) [#/Vol] 5.35 10*3/uL Normal 3.70-11.00 [facility] Comment on above: Order Comment: Speci men Type: BLOOD SPECIMENOrdering Facility: [facility] Address: [address] [place] [address] Performed By: #### 5 7021-8 ####[facility] [id number] [place] [address] [place] CNOVSPon 10-15-[address] [facility] CNPNon 10-15-[address] [facility] Cancer Ag125 SerPl-aCncon Cancer Ag 125 Qn 7 [arb'U]/mL Normal <39 [facility] Comment on above: Order Comment: Speci yasir Type: BLOOD SPECIMENOrdering Facility: [facility] Address: [address] [place] [address] Result Comment: CA 1 25 test methodology [...] (CA 125 II) [package insert V 1.0 [place]ican]. [employer], [place], [place] (July 2015) Performed By: #### 1 0334-1 ####[facility] LABCLIA [id number] [place] [address] [place] Comprehensive metabolic 2000 panelon 10-15-2024 Albumin [Mass/Vol] 4.6 g/dL Normal 3.9-4.9 [facility] Comment on above: Order Comment: Speci men Type: BLOOD SPECIMENOrdering Facility: [facility] Address: [address] [place] [id number] Performed By: #### 2 4323-8 ####[facility] CENTERWNCLIA [id number] [place] [address] [place] ALP [Catalytic activity/Vol] 72 U/L Normal 34-123 [facility] Comment on above: Order Comment: Speci men Type: BLOOD SPECIMENOrdering Facility: [facility] Address: [address] [place] [address] Performed By: #### 2 4323-8 ####[facility] CENTERLIA [id number] [place] [address] [place] ALT [Catalytic activity/Vol] 16 U/L Normal 7-38 [facility] Comment on above: Order Comment: Speci men Type: BLOOD SPECIMENOrdering Facility: [facility] Address: [address] [place] [address] Performed By: #### 2 4323-8 ####[facility]OSPITALNCA [id number] [place] [address] [place] Anion gap [Moles/Vol] 14 mmol/L Normal 8-15 [facility] Comment on above: Order Comment: Speci men Type: BLOOD SPECIMENOrdering Facility: [facility] Address: [address] [place] [address] Performed By: #### 2 4323-8 ####[facility]OSPITALNCLIA [id number] [place] [address] [place] AST [Catalytic activity/Vol] 15 U/L Normal 13-35 [facility] Comment on above: Order Comment: Speci men Type: BLOOD SPECIMENOrdering Facility: [facility] Address: [address] [place] [address] Performed By: #### 2 4323-8 ####[facility] PATRICIO MILLTOWNCLIA [id number] [place] [address] [place] Bilirubin [Mass/Vol] 0.2 mg/dL Normal 0.2-1.3 [facility] Comment on above: Order Comment: Speci men Type: BLOOD SPECIMENOrdering Facility: [facility] Address: [address] [place] [address] Performed By: #### 2 4323-8 ####[facility] MILLTOWNCLIA [id number] [place] [address] [place] Calcium [Mass/Vol] 9.8 mg/dL Normal 8.5-10.2 [facility] Comment on above: Order Comment: Speci men Type: BLOOD SPECIMENOrdering Facility: [facility] Address: [address] [place] [address] Performed By: #### 2 4323-8 ####[facility] VENICETOWNCLIA [id number] [place] [address] [place] Chloride [Moles/Vol] 100 mmol/L Normal 98-107 [facility] Comment on above: Order Comment: Speci men Type: BLOOD SPECIMENOrdering Facility: [facility] Address: [address] [place] [address] Performed By: #### 2 4323-8 ####[facility] MILLTOWNCLIA [id number] [place] [address] [place] CO2 [Moles/Vol] 26 mmol/L Normal 22-30 [facility] Comment on above: Order Comment: Speci men Type: BLOOD SPECIMENOrdering Facility: [facility] Address: [address] [place], [place] [address] Performed By: #### 2 4323-8 ####[facility] MILLWNCLIA [id number] [place] [address] [place] Creatinine [Mass/Vol] 0.84 mg/dL Normal 0.58-0.96 [facility] Comment on above: Order Comment: Cheng cooley Type: BLOOD SPECIMENOrdering Facility: [facility] Address: [address] [place] [address] Performed By: #### 2 4323-8 ####[facility] [id number] [place] [address] [place] Creatinine and Glomerular filtration rate.predicted panel (S/P/Bld) 74 mL/min/1.73m??? Normal >=60 [facility] Comment on above: Order Comment: Cheng cooley Type: BLOOD SPECIMENOrdering Facility: [facility] Address: [address] [place] [address] Result Comment: Ethel mated Glomerular Filtration Rate [...] actual GFR. Performed By: #### 2 4323-8 ####[facility] [id number] [place] [address] [place] Glucose [Mass/Vol] 129 mg/dL High 74-99 [facility] Comment on above: Order Comment: Cheng cooley Type: BLOOD SPECIMENOrdering Facility: [facility] Address: [address] [place] [address] Result Comment: The [place] [employer] (ADA) provides guidance for cutoff [...] Standards of Medical Care in Diabetes 2016, [place] [employer]. Diabetes Care. 2016.39(Suppl 1). Performed By: #### 2 4323-8 ####[facility] HOSPITALCALVIN [id number] [place] [address] [place] Potassium [Moles/Vol] 3.2 mmol/L Low 3.7-5.1 [facility] Comment on above: Order Comment: Speci men Type: BLOOD SPECIMENOrdering Facility: [facility] Address: [address] [place], [place] [address] Performed By: #### 2 4323-8 ####[facility]OSPITALCALVIN [id number] [place] [address] [place] Protein [Mass/Vol] 7.1 g/dL Normal 6.3-8.0 [facility] Comment on above: Order Comment: Speci men Type: BLOOD SPECIMENOrdering Facility: [facility] Address: [address] [place], [place] [address] Performed By: #### 2 4323-8 ####[facility] CENTERDEMETRIO [id number] [place] [address] [place] Sodium [Moles/Vol] 140 mmol/L Normal 136-144 [facility] Comment on above: Order Comment: Speci men Type: BLOOD SPECIMENOrdering Facility: [facility] Address: [address] [place] [address] Performed By: #### 2 4323-8 ####[facility] [id number] [place] [address] [place] Urea nitrogen [Mass/Vol] 18 mg/dL Normal 7-21 [facility] Comment on above: Order Comment: Speci men Type: BLOOD SPECIMENOrdering Facility: [facility] Address: [address] [place] [address] Performed By: #### 2 4323-8 ####[facility] MILLWNCLIA [id number] [place] [address] [place] CBC W Auto Differential pane l (Bld)on 10-08-2024 Basophils (Bld) [#/Vol] 10*3/uL Normal <0.11 [facility] Comment on above: Order Comment: Speci men Type: BLOOD SPECIMENOrdering Facility: [facility] Address: [address] [place] [address] Performed By: #### 5 7021-8 ####[facility] CLAY COUNTYA [id number] [place] [address] [place] Basophils/100 WBC (Bld) 0.5 % Normal [facility] Comment on above: Order Comment: Speci men Type: BLOOD SPECIMENOrdering Facility: [facility] Address: [address] [place] [address] Performed By: #### 5 7021-8 ####[facility] CLAY COUNTYA [id number] [place] [address] [place] Differential cell count method Nom (Bld) Auto Normal [facility] Comment on above: Order Comment: Speci men Type: BLOOD SPECIMENOrdering Facility: [facility] Address: [address] [place] [address] Performed By: #### 5 7021-8 ####[facility] CENTERWNCLIA [id number] [place] [address] [place] Eosinophils (Bld) [#/Vol] 0.10 10*3/uL Normal <0.46 [facility] Comment on above: Order Comment: Speci men Type: BLOOD SPECIMENOrdering Facility: [facility] Address: [address] [place] [address] Performed By: #### 5 7021-8 ####[facility] CENTERLIA [id number] [place] [address] [place] Eosinophils/100 WBC (Bld) 2.4 % Normal [facility] Comment on above: Order Comment: Speci men Type: BLOOD SPECIMENOrdering Facility: [facility] Address: [address] [place] [address] Performed By: #### 5 7021-8 ####[facility] HOSPITALNCOPALA [id number] [place] [address] [place] Erythrocyte distribution width (RBC) [Ratio] 13.6 % Normal 11.5-15.0 [facility] Comment on above: Order Comment: Speci men Type: BLOOD SPECIMENOrdering Facility: [facility] Address: [address] [place] [address] Performed By: #### 5 7021-8 ####[facility]OSPITALNCDEMETRIO [id number] [place] [address] [place] Hematocrit (Bld) [Volume fraction] 29.4 % Low 36.0-46.0 [facility] Comment on above: Order Comment: Speci men Type: BLOOD SPECIMENOrdering Facility: [facility] Address: [address] [place] [address] Performed By: #### 5 7021-8 ####[facility] HOSPITALNCOPAL [id number] [place] [address] [place] Hemoglobin (Bld) [Mass/Vol] 9.9 g/dL Low 11.5-15.5 [facility] Comment on above: Order Comment: Speci men Type: BLOOD SPECIMENOrdering Facility: [facility] Address: [address] [place] [address] Performed By: #### 5 7021-8 ####[facility] HOSPITALNCLIA [id number] [place] [address] [place] Immature granulocytes (Bld) [#/Vol] 10*3/uL Normal <0.10 [facility] Comment on above: Order Comment: Speci men Type: BLOOD SPECIMENOrdering Facility: [facility] Address: [address] [place] [address] Performed By: #### 5 7021-8 ####[facility] ALISASANDRA [id number] [place] [address] [place] Immature granulocytes/100 WBC (Bld) 0.2 % Normal [facility] Comment on above: Order Comment: Speci men Type: BLOOD SPECIMENOrdering Facility: [facility] Address: [address] [place] [address] Performed By: #### 5 7021-8 ####[facility] [id number] [place] [address] [place] Lymphocytes (Bld) [#/Vol] 1.28 10*3/uL Normal 1.00-4.00 [facility] Comment on above: Order Comment: Speci men Type: BLOOD SPECIMENOrdering Facility: [facility] Address: [address] [place] [address] Performed By: #### 5 7021-8 ####[facility] [id number] [place] [address] [place] Lymphocytes/100 WBC (Bld) 30.5 % Normal [facility] Comment on above: Order Comment: Speci men Type: BLOOD SPECIMENOrdering Facility: [facility] Address: [address] [place] [address] Performed By: #### 5 7021-8 ####[facility] [id number] [place] [address] [place] MCH (RBC) [Entitic mass] 30.8 pg Normal 26.0-34.0 [facility] Comment on above: Order Comment: Speci men Type: BLOOD SPECIMENOrdering Facility: [facility] Address: [address] [place] [address] Performed By: #### 5 7021-8 ####[facility] CENTEROfeliaNCLIA [id number] [place] [address] [place] MCHC (RBC) [Mass/Vol] 33.7 g/dL Normal 30.5-36.0 [facility] Comment on above: Order Comment: Speci men Type: BLOOD SPECIMENOrdering Facility: [facility] Address: [address] [place] [address] Performed By: #### 5 7021-8 ####[facility]OSPITALNCLIA [id number] [place] [address] [place] MCV (RBC) [Entitic vol] 91.6 fL Normal 80.0-100.0 [facility] Comment on above: Order Comment: Speci men Type: BLOOD SPECIMENOrdering Facility: [facility] Address: [address] [place] [address] Performed By: #### 5 7021-8 ####[facility] CENTERLIA [id number] [place] [address] [place] Monocytes (Bld) [#/Vol] 0.46 10*3/uL Normal <0.87 [facility] Comment on above: Order Comment: Speci men Type: BLOOD SPECIMENOrdering Facility: [facility] Address: [address] [place] [address] Performed By: #### 5 7021-8 ####[facility] HOSPITALNCLIA [id number] [address] [place] [facility] Monocytes/100 WBC (Bld) 11.0 % Normal [facility] Comment on above: Order Comment: Speci men Type: BLOOD SPECIMENOrdering Facility: [facility] Address: [address] [place] [address] Performed By: #### 5 7021-8 ####[facility]OSPITALNCLIA [id number] [place] [address] [place] Neutrophils (Bld) [#/Vol] 2.32 10*3/uL Normal 1.45-7.50 [facility] Comment on above: Order Comment: Speci men Type: BLOOD SPECIMENOrdering Facility: [facility] Address: [address] [place] [address] Performed By: #### 5 7021-8 ####[facility] CLAY COUNTYA [id number] [place] [address] [place] Neutrophils/100 WBC (Bld) 55.4 % Normal [facility] Comment on above: Order Comment: Speci men Type: BLOOD SPECIMENOrdering Facility: [facility] Address: [address] [place] [address] Performed By: #### 5 7021-8 ####[facility] [id number] [place] [address] [place] Nucleated RBC (Bld) [#/Vol] 10*3/uL Normal <0.01 [facility] Comment on above: Order Comment: Speci men Type: BLOOD SPECIMENOrdering Facility: [facility] Address: [address] [place] [address] Performed By: #### 5 7021-8 ####[facility] [id number] [place] [address] [place] Nucleated RBC/100 WBC (Bld) [Ratio] 0.0 /[address] [facility] Comment on above: Order Comment: Speci men Type: BLOOD SPECIMENOrdering Facility: [facility] Address: [address] [place] [address] Performed By: #### 5 7021-8 ####[facility] [id number] [place] [address] [place] Platelet mean volume (Bld) [Entitic vol] 9.0 fL Normal 9.0-12.7 [facility] Comment on above: Order Comment: Speci men Type: BLOOD SPECIMENOrdering Facility: [facility] Address: [address] [place] [address] Performed By: #### 5 7021-8 ####[facility] ALISAWNCLIA [id number] [place] [address] [place] Platelets (Bld) [#/Vol] 250 10*3/uL Normal 150-400 [facility] Comment on above: Order Comment: Speci men Type: BLOOD SPECIMENOrdering Facility: [facility] Address: [address] [place] [address] Performed By: #### 5 7021-8 ####[facility]OSPITALNCLIA [id number] [place] [address] [place] RBC (Bld) [#/Vol] 3.21 10*6/uL Low 3.90-5.20 [facility] Comment on above: Order Comment: Speci men Type: BLOOD SPECIMENOrdering Facility: [facility] Address: [address] [place] [address] Performed By: #### 5 7021-8 ####[facility] HOSPITALNCLIA [id number] [place] [address] [place] WBC (Bld) [#/Vol] 4.19 10*3/uL Normal 3.70-11.00 [facility] Comment on above: Order Comment: Speci men Type: BLOOD SPECIMENOrdering Facility: [facility] Address: [address] [place] [address] Performed By: #### 5 7021-8 ####[facility] HOSPITALNCLIA [id number] [place] [address] [place] Cancer Ag125 SerPl-aCncon Cancer Ag 125 Qn 7 [arb'U]/mL Normal <39 [facility] Comment on above: Order Comment: Speci men Type: BLOOD SPECIMENOrdering Facility: [facility] Address: [address] [place] [address] Result Comment: CA 1 25 test methodology [...] (CA 125 II) [package insert V 1.0 Jamaican]. [employer], [place], [place] (July 2015) Performed By: #### 1 0334-1 ####[facility] LABCLIA [id number] [place] [address] [place] CNOVSPon 10-07-[address] [facility] CNPNon 10-07-2024 CNPN [facility] CNPNon 10-04-2024 CNPN Telephone (GYNML) -- SAL BAUTISTA ([id number]) 1950 F Date Time Provider Department 10/04/24 VERONICA GALVAN GYNML During your visit today, we recorded the following information about you: Veronica Galvan, RN 10/04/2024 2:46 PM Signed Pt LVM at [facility] office. Spoke to pt who said the last 3 days after a BM she has noted some bleeding. a little in the stool Pt also said when wiping a less than quarter size of blood noted on toilet paper. Pt has a post -op appointment with Dr. Buckner at [facility] 10/07. Informed pt message would be sent to medical team to review and advise. Pt verbalized understanding and grateful for call. Tess Tabares APRN.CLAMP OPERATOR 10/04/2024 3:38 PM Signed Spoke to patient. [...] was grateful for phone call. Tess Tabares APRN.CLAMP OPERATOR Allergies As of Date: 10/04/2024 (No Known [...] as needed for pain. - nutritional supplement ([employer]az[employer] (Cuponium) STANDARD 1.4) 0.06 G - 1.4 Kcal/mL [...] Osteopenia [M85.80] 07/13 (more content not included)... [facility] 09-22-2024 [facility] 09-20-[address] [facility] CNNURSEon 09-17-[address] [facility] CNPNon 09-15-[address] [facility] CNPTOUTREACHon 09-15-[address] [facility] CASE MANAGEMon 09-13-[address] [facility] CASE MANAGEM Normal [facility] CBC panel Auto (Bld)on 09-13 Erythrocyte distribution width (RBC) [Ratio] 15.5 % High 11.5-15.0 [facility] Comment on above: Order Comment: Speci men Type: BLOOD SPECIMENOrdering Facility: [facility] Address: [address] [place] [address] Performed By: #### 5 8410-2 ####[facility] LABIA [id number] [place] [address] [place] Hematocrit (Bld) [Volume fraction] 29.0 % Low 36.0-46.0 [facility] Comment on above: Order Comment: Speci men Type: BLOOD SPECIMENOrdering Facility: [facility] Address: [address] [place] [address] Performed By: #### 5 8410-2 ####[facility] LABIA [id number] [place] [address] [place] Hemoglobin (Bld) [Mass/Vol] 9.1 g/dL Low 11.5-15.5 [facility] Comment on above: Order Comment: Speci men Type: BLOOD SPECIMENOrdering Facility: [facility] Address: [address] [place] [address] Performed By: #### 5 8410-2 ####[facility] LABIA [id number] [place] [address] [place] MCH (RBC) [Entitic mass] 31.4 pg Normal 26.0-34.0 [facility] Comment on above: Order Comment: Speci men Type: BLOOD SPECIMENOrdering Facility: [facility] Address: [address] [place] [address] Performed By: #### 5 8410-2 ####[facility] LABCLIA [id number] [place] [address] [place] MCHC (RBC) [Mass/Vol] 31.4 g/dL Normal 30.5-36.0 [facility] Comment on above: Order Comment: Speci men Type: BLOOD SPECIMENOrdering Facility: [facility] Address: [address] [place] [address] Performed By: #### 5 8410-2 ####[facility] LABCLIA [id number] [place] [address] [place] MCV (RBC) [Entitic vol] 100.0 fL Normal 80.0-100.0 [facility] Comment on above: Order Comment: Speci men Type: BLOOD SPECIMENOrdering Facility: [facility] Address: [address] [place] [address] Performed By: #### 5 8410-2 ####[facility] LABIA [id number] [place] [address] [place] Nucleated RBC (Bld) [#/Vol] 10*3/uL Normal <0.01 [facility] Comment on above: Order Comment: Speci men Type: BLOOD SPECIMENOrdering Facility: [facility] Address: [address] [place] [address] Performed By: #### 5 8410-2 ####[facility] LABCLIA [id number] [place] [address] [place] Platelet mean volume (Bld) [Entitic vol] 9.8 fL Normal 9.0-12.7 [facility] Comment on above: Order Comment: Speci men Type: BLOOD SPECIMENOrdering Facility: [facility] Address: [address] [place] [address] Performed By: #### 5 8410-2 ####[facility] LABCLIA [id number] [place] [address] [place] Platelets (Bld) [#/Vol] 173 10*3/uL Normal 150-400 [facility] Comment on above: Order Comment: Speci men Type: BLOOD SPECIMENOrdering Facility: [facility] Address: [address] [place] [address] Performed By: #### 5 8410-2 ####[facility] [id number] [place] [address] [place] RBC (Bld) [#/Vol] 2.90 10*6/uL Low 3.90-5.20 [facility] Comment on above: Order Comment: Speci men Type: BLOOD SPECIMENOrdering Facility: [facility] Address: [address] [place] [address] Performed By: #### 5 8410-2 ####[facility] [id number] [place] [address] [place] WBC (Bld) [#/Vol] 4.02 10*3/uL Normal 3.70-11.00 [facility] Comment on above: Order Comment: Speci men Type: BLOOD SPECIMENOrdering Facility: [facility] Address: [address] [place] [address] Performed By: #### 5 8410-2 ####[facility] [id number] [place] [address] [place] CNCOon 09-13-[address] Text [address] [facility] CNDSon 09-13-[address] [facility] CNPNon 09-13-[address] [facility] Comprehensive metabolic 2000 panelon 09-13-2024 Albumin [Mass/Vol] 3.5 g/dL Low 3.9-4.9 [facility] Comment on above: Order Comment: Speci men Type: BLOOD SPECIMENOrdering Facility: [facility] Address: [address] [place] [address] Performed By: #### 2 4323-8, 43368-1, 2776- ####[facility] LABCLIA [id number] [place] [address] [place] ALP [Catalytic activity/Vol] 64 U/L Normal 34-123 [facility] Comment on above: Order Comment: Speci men Type: BLOOD SPECIMENOrdering Facility: [facility] Address: [address] [place] [address] Performed By: #### 2 4323-8, 63331-9, 2776- ####[facility] LABCLIA [id number] [place] [address] [place] ALT [Catalytic activity/Vol] 13 U/L Normal 7-38 [facility] Comment on above: Order Comment: Speci men Type: BLOOD SPECIMENOrdering Facility: [facility] Address: [address] [place] [address] Performed By: #### 2 4323-8, , 2776-10 ####[facility] LABCLIA [id number] [place] [address] [place] Anion gap [Moles/Vol] 20 mmol/L High 8-15 [facility] Comment on above: Order Comment: Speci men Type: BLOOD SPECIMENOrdering Facility: [facility] Address: [address] [place] [address] Performed By: #### 2 4323-8, , 2776-10 ####[facility] LABCLIA [id number] [place] [id number] [place] AST [Catalytic activity/Vol] 32 U/L Normal 13-35 [facility] Comment on above: Order Comment: Speci men Type: BLOOD SPECIMENOrdering Facility: [facility] Address: [address] [place] [address] Result Comment: Resu lts may be falsely increased due to interference from hemolysis. Suggest reorder as clinically indicated. Performed By: #### 2 4323-8, , 2776-10 ####[facility] LABCLIA [id number] [address] [address] [place] Bilirubin [Mass/Vol] 0.3 mg/dL Normal 0.2-1.3 [facility] Comment on above: Order Comment: Speci men Type: BLOOD SPECIMENOrdering Facility: [facility] Address: [address] [place] [address] Performed By: #### 2 4323-8, , 2776-10 ####[facility] LABCLIA [id number] [place] [address] [place] Calcium [Mass/Vol] 8.9 mg/dL Normal 8.5-10.2 [facility] Comment on above: Order Comment: Speci men Type: BLOOD SPECIMENOrdering Facility: [facility] Address: [address] [place] [address] Performed By: #### 2 4323-8, , 2776-10 ####[facility] LABCLIA [id number] [place] [address] [place] Chloride [Moles/Vol] 107 mmol/L Normal 98-107 [facility] Comment on above: Order Comment: Speci men Type: BLOOD SPECIMENOrdering Facility: [facility] Address: [address] [place], [place] [address] Performed By: #### 2 4323-8, , 2776-10 ####[facility] LABCLIA [id number] [place] [id number] [place] CO2 [Moles/Vol] 18 mmol/L Low 22-30 [facility] Comment on above: Order Comment: Speci men Type: BLOOD SPECIMENOrdering Facility: [facility] Address: [address] [place], [place] [address] Performed By: #### 2 4323-8, , 2776-10 ####[facility] LABIA [id number] [place] [id number] [place] Creatinine [Mass/Vol] 0.70 mg/dL Normal 0.58-0.96 [facility] Comment on above: Order Comment: Cheng cooley Type: BLOOD SPECIMENOrdering Facility: [facility] Address: [address] [place] [address] Performed By: #### 2 4323-8, , 2776-10 ####[facility] LABIA [id number] [place] [address] [place] Creatinine and Glomerular filtration rate.predicted panel (S/P/Bld) 92 mL/min/1.73m??? Normal >=60 [facility] Comment on above: Order Comment: Cheng cooley Type: BLOOD SPECIMENOrdering Facility: [facility] Address: [address] [place] [address] Result Comment: Ethel mated Glomerular Filtration Rate [...] Performed By: #### 2 4323-8, , 2776-10 ####[facility] LABIA [id number] [place] [id number] [place] Glucose [Mass/Vol] 100 mg/dL High 74-99 [facility] Comment on above: Order Comment: Cheng cooley Type: BLOOD SPECIMENOrdering Facility: [facility] Address: [address] [place] [address] Result Comment: The [place] Diabetes Association (ADA) provides guidance for cutoff [...] Standards of Medical Care in Diabetes 2016, [place] [employer]. Diabetes Care. 2016.39(Suppl 1). Performed By: #### 2 4323-8, , 2776-10 ####[facility] LABCLIA [id number] [address] [address] [place] Potassium [Moles/Vol] 3.7 mmol/L Normal 3.7-5.1 [facility] Comment on above: Order Comment: Speci men Type: BLOOD SPECIMENOrdering Facility: [facility] Address: [address] [place] [address] Performed By: #### 2 4323-8, , 2776-10 ####[facility] LABCLIA [id number] [place] [address] [place] Protein [Mass/Vol] 5.8 g/dL Low 6.3-8.0 [facility] Comment on above: Order Comment: Speci men Type: BLOOD SPECIMENOrdering Facility: [facility] Address: [address] [place] [address] Performed By: #### 2 4323-8, , 2776-10 ####[facility] LABCLIA [id number] [address] [address] [place] Sodium [Moles/Vol] 145 mmol/L High 136-144 [facility] Comment on above: Order Comment: Speci men Type: BLOOD SPECIMENOrdering Facility: [facility] Address: [address] [place] [address] Performed By: #### 2 4323-8, , 2776-10 ####[facility] LABCLIA [id number] [place] [id number] [place] Urea nitrogen [Mass/Vol] 5 mg/dL Low 7-21 [facility] Comment on above: Order Comment: Speci men Type: BLOOD SPECIMENOrdering Facility: [facility] Address: [address] [place], [place] [address] Performed By: #### 2 4323-8, 59331-7, 2777-1 ####[facility] LABIA [id number] [place] [id number] [place] Magnesium SerPl-ncon 09-13 Magnesium [Mass/Vol] 1.9 mg/dL Normal 1.7-2.3 [facility] Comment on above: Order Comment: Speci men Type: BLOOD SPECIMENOrdering Facility: [facility] Address: [address] [place] [address] Performed By: #### 2 4323-8, 75683-3, 2777-1 ####[facility] LABIA [id number] [place] [id number] [place] Phosphate SerPl-mCncon 09-13 Phosphate [Mass/Vol] 3.5 mg/dL Normal 2.7-4.8 [facility] Comment on above: Order Comment: Speci men Type: BLOOD SPECIMENOrdering Facility: [facility] Address: [address] [place] [address] Performed By: #### 2 4323-8, 98424-7, 2777-1 ####[facility] LABIA [id number] [place] [id number] [place] THERAPY NTon 09-13-[address] [facility] THERAPY NT Normal [facility] CBC panel Auto (Bld)on 09-11 Erythrocyte distribution width (RBC) [Ratio] 15.9 % High 11.5-15.0 [facility] Comment on above: Order Comment: Speci men Type: BLOOD SPECIMENOrdering Facility: [facility] Address: [address] [place] [address] Performed By: #### 5 8410-2 ####[facility] LABCLIA [id number] [place] [address] [place] Hematocrit (Bld) [Volume fraction] 25.1 % Low 36.0-46.0 [facility] Comment on above: Order Comment: Speci men Type: BLOOD SPECIMENOrdering Facility: [facility] Address: [address] [place] [address] Performed By: #### 5 8410-2 ####[facility] LABIA [id number] [place] [address] [place] Hemoglobin (Bld) [Mass/Vol] 8.1 g/dL Low 11.5-15.5 [facility] Comment on above: Order Comment: Speci men Type: BLOOD SPECIMENOrdering Facility: [facility] Address: [address] [place] [address] Performed By: #### 5 8410-2 ####[facility] LABIA [id number] [place] [address] [place] MCH (RBC) [Entitic mass] 30.0 pg Normal 26.0-34.0 [facility] Comment on above: Order Comment: Speci men Type: BLOOD SPECIMENOrdering Facility: [facility] Address: [address] [place] [address] Performed By: #### 5 8410-2 ####[facility] LABCLIA [id number] [place] [address] [place] MCHC (RBC) [Mass/Vol] 32.3 g/dL Normal 30.5-36.0 [facility] Comment on above: Order Comment: Speci men Type: BLOOD SPECIMENOrdering Facility: [facility] Address: [address] [place] [address] Performed By: #### 5 8410-2 ####[facility] LABCLIA [id number] [place] [address] [place] MCV (RBC) [Entitic vol] 93.0 fL Normal 80.0-100.0 [facility] Comment on above: Order Comment: Speci men Type: BLOOD SPECIMENOrdering Facility: [facility] Address: [address] [place] [address] Performed By: #### 5 8410-2 ####[facility] LABIA [id number] [place] [address] [place] Nucleated RBC (Bld) [#/Vol] 10*3/uL Normal <0.01 [facility] Comment on above: Order Comment: Speci men Type: BLOOD SPECIMENOrdering Facility: [facility] Address: [address] [place] [address] Performed By: #### 5 8410-2 ####[facility] LABIA [id number] [place] [address] [place] Platelet mean volume (Bld) [Entitic vol] 9.3 fL Normal 9.0-12.7 [facility] Comment on above: Order Comment: Speci men Type: BLOOD SPECIMENOrdering Facility: [facility] Address: [address] [place] [address] Performed By: #### 5 8410-2 ####[facility] LABIA [id number] [place] [address] [place] Platelets (Bld) [#/Vol] 173 10*3/uL Normal 150-400 [facility] Comment on above: Order Comment: Speci men Type: BLOOD SPECIMENOrdering Facility: [facility] Address: [address] [place] [address] Performed By: #### 5 8410-2 ####[facility] LABCLIA [id number] [place] [address] [place] RBC (Bld) [#/Vol] 2.70 10*6/uL Low 3.90-5.20 [facility] Comment on above: Order Comment: Speci men Type: BLOOD SPECIMENOrdering Facility: [facility] Address: [address] [place] [address] Performed By: #### 5 8410-2 ####[facility] LABCLIA [id number] [place] [address] [place] WBC (Bld) [#/Vol] 4.87 10*3/uL Normal 3.70-11.00 [facility] Comment on above: Order Comment: Speci men Type: BLOOD SPECIMENOrdering Facility: [facility] Address: [address] [place] [address] Performed By: #### 5 8410-2 ####[facility] LABIA [id number] [place] [address] [place] Erythrocyte distribution width (RBC) [Ratio] 16.1 % High 11.5-15.0 [facility] Comment on above: Order Comment: Speci men Type: BLOOD SPECIMENOrdering Facility: [facility] Address: [address] [place] [address] Performed By: #### 5 8410-2 ####[facility] LABIA [id number] [place] [address] [place] Hematocrit (Bld) [Volume fraction] 25.9 % Low 36.0-46.0 [facility] Comment on above: Order Comment: Speci men Type: BLOOD SPECIMENOrdering Facility: [facility] Address: [address] [place] [address] Performed By: #### 5 8410-2 ####[facility] LABIA [id number] [place] [address] [place] Hemoglobin (Bld) [Mass/Vol] 8.7 g/dL Low 11.5-15.5 [facility] Comment on above: Order Comment: Speci men Type: BLOOD SPECIMENOrdering Facility: [facility] Address: [address] [place] [address] Performed By: #### 5 8410-2 ####[facility] LABIA [id number] [place] [address] [place] MCH (RBC) [Entitic mass] 31.4 pg Normal 26.0-34.0 [facility] Comment on above: Order Comment: Speci men Type: BLOOD SPECIMENOrdering Facility: [facility] Address: [address] [place] [address] Performed By: #### 5 8410-2 ####[facility] [id number] [place] [address] [place] MCHC (RBC) [Mass/Vol] 33.6 g/dL Normal 30.5-36.0 [facility] Comment on above: Order Comment: Speci men Type: BLOOD SPECIMENOrdering Facility: [facility] Address: [address] [place] [address] Performed By: #### 5 8410-2 ####[facility] [id number] [place] [address] [place] MCV (RBC) [Entitic vol] 93.5 fL Normal 80.0-100.0 [facility] Comment on above: Order Comment: Speci men Type: BLOOD SPECIMENOrdering Facility: [facility] Address: [address] [place] [address] Performed By: #### 5 8410-2 ####[facility] LABIA [id number] [place] [address] [place] Nucleated RBC (Bld) [#/Vol] 10*3/uL Normal <0.01 [facility] Comment on above: Order Comment: Speci men Type: BLOOD SPECIMENOrdering Facility: [facility] Address: [address] [place] [address] Performed By: #### 5 8410-2 ####[facility] LABIA [id number] [place] [address] [place] Platelet mean volume (Bld) [Entitic vol] 10.1 fL Normal 9.0-12.7 [facility] Comment on above: Order Comment: Speci men Type: BLOOD SPECIMENOrdering Facility: [facility] Address: [address] [place] [address] Performed By: #### 5 8410-2 ####[facility] LABIA [id number] [place] [address] [place] Platelets (Bld) [#/Vol] 161 10*3/uL Normal 150-400 [facility] Comment on above: Order Comment: Speci men Type: BLOOD SPECIMENOrdering Facility: [facility] Address: [address] [place] [address] Performed By: #### 5 8410-2 ####[facility] LABIA [id number] [place] [address] [place] RBC (Bld) [#/Vol] 2.77 10*6/uL Low 3.90-5.20 [facility] Comment on above: Order Comment: Speci men Type: BLOOD SPECIMENOrdering Facility: [facility] Address: [address] [place] [address] Performed By: #### 5 8410-2 ####[facility] LABIA [id number] [place] [address] [place] WBC (Bld) [#/Vol] 5.55 10*3/uL Normal 3.70-11.00 [facility] Comment on above: Order Comment: Speci men Type: BLOOD SPECIMENOrdering Facility: [facility] Address: [address] [place] [address] Performed By: #### 5 8410-2 ####[facility] LABIA [id number] [place] [address] [place] Erythrocyte distribution width (RBC) [Ratio] 16.7 % High 11.5-15.0 [facility] Comment on above: Order Comment: Speci men Type: BLOOD SPECIMENOrdering Facility: [facility] Address: [address] [place] [address] Performed By: #### 5 8410-2 ####[facility] LABIA [id number] [place] [address] [place] Hematocrit (Bld) [Volume fraction] 30.0 % Low 36.0-46.0 [facility] Comment on above: Order Comment: Speci men Type: BLOOD SPECIMENOrdering Facility: [facility] Address: [address] [place] [address] Performed By: #### 5 8410-2 ####[facility] LABIA [id number] [place] [address] [place] Hemoglobin (Bld) [Mass/Vol] 9.3 g/dL Low 11.5-15.5 [facility] Comment on above: Order Comment: Speci men Type: BLOOD SPECIMENOrdering Facility: [facility] Address: [address] [place] [address] Performed By: #### 5 8410-2 ####[facility] LABIA [id number] [place] [address] [place] MCH (RBC) [Entitic mass] 30.6 pg Normal 26.0-34.0 [facility] Comment on above: Order Comment: Speci men Type: BLOOD SPECIMENOrdering Facility: [facility] Address: [address] [place] [address] Performed By: #### 5 8410-2 ####[facility] LABIA [id number] [place] [address] [place] MCHC (RBC) [Mass/Vol] 31.0 g/dL Normal 30.5-36.0 [facility] Comment on above: Order Comment: Speci men Type: BLOOD SPECIMENOrdering Facility: [facility] Address: [address] [place] [address] Performed By: #### 5 8410-2 ####[facility] LABIA [id number] [place] [address] [place] MCV (RBC) [Entitic vol] 98.7 fL Normal 80.0-100.0 [facility] Comment on above: Order Comment: Speci men Type: BLOOD SPECIMENOrdering Facility: [facility] Address: [address] [place] [address] Performed By: #### 5 8410-2 ####[facility] LABIA [id number] [place] [address] [place] Nucleated RBC (Bld) [#/Vol] 10*3/uL Normal <0.01 [facility] Comment on above: Order Comment: Speci men Type: BLOOD SPECIMENOrdering Facility: [facility] Address: [address] [place] [address] Performed By: #### 5 8410-2 ####[facility] LABIA [id number] [place] [address] [place] Platelet mean volume (Bld) [Entitic vol] 10.0 fL Normal 9.0-12.7 [facility] Comment on above: Order Comment: Speci men Type: BLOOD SPECIMENOrdering Facility: [facility] Address: [address] [place] [address] Performed By: #### 5 8410-2 ####[facility] LABIA [id number] [place] [address] [place] Platelets (Bld) [#/Vol] 132 10*3/uL Low 150-400 [facility] Comment on above: Order Comment: Speci men Type: BLOOD SPECIMENOrdering Facility: [facility] Address: [address] [place] [address] Performed By: #### 5 8410-2 ####[facility] LABIA [id number] [place] [address] [place] RBC (Bld) [#/Vol] 3.04 10*6/uL Low 3.90-5.20 [facility] Comment on above: Order Comment: Speci men Type: BLOOD SPECIMENOrdering Facility: [facility] Address: [address] [place] [address] Performed By: #### 5 8410-2 ####[facility] LABCLIA [id number] [place] [address] [place] WBC (Bld) [#/Vol] 7.30 10*3/uL Normal 3.70-11.00 [facility] Comment on above: Order Comment: Speci men Type: BLOOD SPECIMENOrdering Facility: [facility] Address: [address] [place] [address] Performed By: #### 5 8410-2 ####[facility] LABCLIA [id number] [place] [address] [place] Comprehensive metabolic 2000 panelon 09-11-2024 Albumin [Mass/Vol] 2.9 g/dL Low 3.9-4.9 [facility] Comment on above: Order Comment: Speci men Type: BLOOD SPECIMENOrdering Facility: [facility] Address: [address] [place] [address] Performed By: #### 1 9123-9, 56682-1, 2777-1 ####[facility] LABCLIA [id number] [place] [address] [place] ALP [Catalytic activity/Vol] 53 U/L Normal 34-123 [facility] Comment on above: Order Comment: Speci men Type: BLOOD SPECIMENOrdering Facility: [facility] Address: [address] [place] [address] Performed By: #### 1 9123-9, 37580-0, 2777-1 ####[facility] LABCLIA [id number] [place] [address] [place] ALT [Catalytic activity/Vol] U/L Low 7-38 [facility] Comment on above: Order Comment: Speci men Type: BLOOD SPECIMENOrdering Facility: [facility] Address: [address] [place] [address] Result Comment: Resu lt rechecked. Performed By: #### 1 9123-9, 19464-0, 277-1 ####[facility] LABCLIA [id number] [place] [address] [place] Anion gap [Moles/Vol] 9 mmol/L Normal 8-15 [facility] Comment on above: Order Comment: Speci men Type: BLOOD SPECIMENOrdering Facility: [facility] Address: [address] [place] [address] Performed By: #### 1 9123-9, 52968-4, 277- ####[facility] LABCLIA [id number] [place] [address] [place] AST [Catalytic activity/Vol] 11 U/L Low 13-35 [facility] Comment on above: Order Comment: Speci men Type: BLOOD SPECIMENOrdering Facility: [facility] Address: [address] [place] [address] Performed By: #### 1 9123-9, 55311-9, 2776- ####[facility] LABCLIA [id number] [place] [address] [place] Bilirubin [Mass/Vol] 0.3 mg/dL Normal 0.2-1.3 [facility] Comment on above: Order Comment: Speci men Type: BLOOD SPECIMENOrdering Facility: [facility] Address: [address] [place] [address] Performed By: #### 1 9123-9, 29406-5, 277- ####[facility] LABCLIA [id number] [place] [id number] [place] Calcium [Mass/Vol] 8.6 mg/dL Normal 8.5-10.2 [facility] Comment on above: Order Comment: Speci men Type: BLOOD SPECIMENOrdering Facility: [facility] Address: [address] [place] [address] Performed By: #### 1 9123-9, 53651-0, 2777- ####[facility] LABCLIA [id number] [place] [address] [place] Chloride [Moles/Vol] 105 mmol/L Normal 98-107 [facility] Comment on above: Order Comment: Speci men Type: BLOOD SPECIMENOrdering Facility: [facility] Address: [address] [place] [address] Performed By: #### 1 9123-9, 39581-7, 277- ####[facility] LABCLIA [id number] [place] [address] [place] CO2 [Moles/Vol] 25 mmol/L Normal 22-30 [facility] Comment on above: Order Comment: Speci men Type: BLOOD SPECIMENOrdering Facility: [facility] Address: [address] [place] [address] Performed By: #### 1 9123-9, 71404-7, 27704-05 ####[facility] LABCLIA [id number] [place] [address] [place] Creatinine [Mass/Vol] 0.71 mg/dL Normal 0.58-0.96 [facility] Comment on above: Order Comment: Speci men Type: BLOOD SPECIMENOrdering Facility: [facility] Address: [address] [place] [address] Performed By: #### 1 9123-9, 77488-8, 2777- ####[facility] LABCLIA [id number] [place] [address] [place] Creatinine and Glomerular filtration rate.predicted panel (S/P/Bld) 90 mL/min/1.73m??? Normal >=60 [facility] Comment on above: Order Comment: Cheng cooley Type: BLOOD SPECIMENOrdering Facility: [facility] Address: [address] [place] [address] Result Comment: Ethel mated Glomerular Filtration Rate [...] actual GFR. Performed By: #### 1 9123-9, 68584-8, 2776- ####[facility] LABIA [id number] [place] [address] [place] Glucose [Mass/Vol] 115 mg/dL High 74-99 [facility] Comment on above: Order Comment: Cheng cooley Type: BLOOD SPECIMENOrdering Facility: [facility] Address: [address] [place] [address] Result Comment: The [place] [employer] (ADA) provides guidance for cutoff [...] Standards of Medical Care in Diabetes 2016, [place] [employer]. Diabetes Care. 2016.39(Suppl 1). Performed By: #### 1 9123-9, 66179-2, 2776-10 ####[facility] LABCLIA [id number] [place] [id number] [place] Potassium [Moles/Vol] 3.1 mmol/L Low 3.7-5.1 [facility] Comment on above: Order Comment: Cheng cooley Type: BLOOD SPECIMENOrdering Facility: [facility] Address: [address] [place] [address] Performed By: #### 1 9123-9, 82078-3, 2777-1 ####[facility] LABCLIA [id number] [place] [address] [place] Protein [Mass/Vol] 5.2 g/dL Low 6.3-8.0 [facility] Comment on above: Order Comment: Speci men Type: BLOOD SPECIMENOrdering Facility: [facility] Address: [address] [place] [address] Performed By: #### 1 9123-9, 69896-7, 2777-1 ####[facility] LABIA [id number] [place] [address] [place] Sodium [Moles/Vol] 139 mmol/L Normal 136-144 [facility] Comment on above: Order Comment: Speci men Type: BLOOD SPECIMENOrdering Facility: [facility] Address: [address] [place] [address] Performed By: #### 1 9123-9, 64627-7, 2777- ####[facility] LABIA [id number] [place] [address] [place] Urea nitrogen [Mass/Vol] 5 mg/dL Low 7-21 [facility] Comment on above: Order Comment: Speci men Type: BLOOD SPECIMENOrdering Facility: [facility] Address: [address] [place] [address] Performed By: #### 1 9123-9, 88233-1, 2777- ####[facility] LABIA [id number] [place] [id number] [place] Magnesium SerPl-mCncon 09-11 Magnesium [Mass/Vol] 1.9 mg/dL Normal 1.7-2.3 [facility] Comment on above: Order Comment: Speci men Type: BLOOD SPECIMENOrdering Facility: [facility] Address: [address] [place] [address] Performed By: #### 1 9123-9, 20152-3, 2777-1 ####[facility] LABCLIA [id number] [place] [address] [place] NURSING PROGon 09-11-[address] [facility] Phosphate SerPl-mCncon 09-11 Phosphate [Mass/Vol] 2.4 mg/dL Low 2.7-4.8 [facility] Comment on above: Order Comment: Speci men Type: BLOOD SPECIMENOrdering Facility: [facility] Address: [address] [place] [address] Performed By: #### 1 9123-9, 09714-9, 2777-1 ####[facility] LABCLIA [id number] [place] [address] [place] CBC panel Auto (Bld)on 09-10 Erythrocyte distribution width (RBC) [Ratio] 16.1 % High 11.5-15.0 [facility] Comment on above: Order Comment: Speci men Type: BLOOD SPECIMENOrdering Facility: [facility] Address: [address] [place] [address] Performed By: #### 5 8410-2 ####[facility] LABCLIA [id number] [place] [address] [place] Hematocrit (Bld) [Volume fraction] 22.5 % Low 36.0-46.0 [facility] Comment on above: Order Comment: Speci men Type: BLOOD SPECIMENOrdering Facility: [facility] Address: [address] [place] [address] Performed By: #### 5 8410-2 ####[facility] LABCLIA [id number] [place] [address] [place] Hemoglobin (Bld) [Mass/Vol] 7.5 g/dL Low 11.5-15.5 [facility] Comment on above: Order Comment: Speci men Type: BLOOD SPECIMENOrdering Facility: [facility] Address: [address] [place] [address] Performed By: #### 5 8410-2 ####[facility] LABIA [id number] [place] [address] [place] MCH (RBC) [Entitic mass] 31.3 pg Normal 26.0-34.0 [facility] Comment on above: Order Comment: Speci men Type: BLOOD SPECIMENOrdering Facility: [facility] Address: [address] [place] [address] Performed By: #### 5 8410-2 ####[facility] LABIA [id number] [place] [address] [place] MCHC (RBC) [Mass/Vol] 33.3 g/dL Normal 30.5-36.0 [facility] Comment on above: Order Comment: Speci men Type: BLOOD SPECIMENOrdering Facility: [facility] Address: [address] [place] [address] Performed By: #### 5 8410-2 ####[facility] LABIA [id number] [place] [address] [place] MCV (RBC) [Entitic vol] 93.8 fL Normal 80.0-100.0 [facility] Comment on above: Order Comment: Speci men Type: BLOOD SPECIMENOrdering Facility: [facility] Address: [address] [place] [address] Performed By: #### 5 8410-2 ####[facility] LABIA [id number] [place] [address] [place] Nucleated RBC (Bld) [#/Vol] 10*3/uL Normal <0.01 [facility] Comment on above: Order Comment: Speci men Type: BLOOD SPECIMENOrdering Facility: [facility] Address: [address] [place] [address] Performed By: #### 5 8410-2 ####[facility] LABCLIA [id number] [address] [address] [place] Platelet mean volume (Bld) [Entitic vol] 9.6 fL Normal 9.0-12.7 [facility] Comment on above: Order Comment: Speci men Type: BLOOD SPECIMENOrdering Facility: [facility] Address: [address] [place] [address] Performed By: #### 5 8410-2 ####[facility] LABIA [id number] [place] [address] [place] Platelets (Bld) [#/Vol] 136 10*3/uL Low 150-400 [facility] Comment on above: Order Comment: Speci men Type: BLOOD SPECIMENOrdering Facility: [facility] Address: [address] [place] [address] Performed By: #### 5 8410-2 ####[facility] LABIA [id number] [place] [address] [place] RBC (Bld) [#/Vol] 2.40 10*6/uL Low 3.90-5.20 [facility] Comment on above: Order Comment: Speci men Type: BLOOD SPECIMENOrdering Facility: [facility] Address: [address] [place] [address] Performed By: #### 5 8410-2 ####[facility] LABIA [id number] [place] [address] [place] WBC (Bld) [#/Vol] 6.05 10*3/uL Normal 3.70-11.00 [facility] Comment on above: Order Comment: Speci men Type: BLOOD SPECIMENOrdering Facility: [facility] Address: [address] [place] [address] Performed By: #### 5 8410-2 ####[facility] LABIA [id number] [place] [address] [place] Erythrocyte distribution width (RBC) [Ratio] 15.9 % High 11.5-15.0 [facility] Comment on above: Order Comment: Speci men Type: BLOOD SPECIMENOrdering Facility: [facility] Address: [address] [place] [address] Performed By: #### 5 8410-2 ####[facility] LABCLIA [id number] [place] [address] [place] Hematocrit (Bld) [Volume fraction] 21.4 % Low 36.0-46.0 [facility] Comment on above: Order Comment: Speci men Type: BLOOD SPECIMENOrdering Facility: [facility] Address: [address] [place] [address] Performed By: #### 5 8410-2 ####[facility] LABCLIA [id number] [place] [address] [place] Hemoglobin (Bld) [Mass/Vol] 7.3 g/dL Low 11.5-15.5 [facility] Comment on above: Order Comment: Speci men Type: BLOOD SPECIMENOrdering Facility: [facility] Address: [address] [place] [address] Performed By: #### 5 8410-2 ####[facility] LABCLIA [id number] [place] [address] [place] MCH (RBC) [Entitic mass] 31.5 pg Normal 26.0-34.0 [facility] Comment on above: Order Comment: Speci men Type: BLOOD SPECIMENOrdering Facility: [facility] Address: [address] [place] [address] Performed By: #### 5 8410-2 ####[facility] LABCLIA [id number] [place] [address] [place] MCHC (RBC) [Mass/Vol] 34.1 g/dL Normal 30.5-36.0 [facility] Comment on above: Order Comment: Speci men Type: BLOOD SPECIMENOrdering Facility: [facility] Address: [address] [place] [address] Performed By: #### 5 8410-2 ####[facility] LABCLIA [id number] [place] [address] [place] MCV (RBC) [Entitic vol] 92.2 fL Normal 80.0-100.0 [facility] Comment on above: Order Comment: Speci men Type: BLOOD SPECIMENOrdering Facility: [facility] Address: [address] [place] [address] Performed By: #### 5 8410-2 ####[facility] LABIA [id number] [place] [address] [place] Nucleated RBC (Bld) [#/Vol] 10*3/uL Normal <0.01 [facility] Comment on above: Order Comment: Speci men Type: BLOOD SPECIMENOrdering Facility: [facility] Address: [address] [place] [address] Performed By: #### 5 8410-2 ####[facility] LABIA [id number] [place] [address] [place] Platelet mean volume (Bld) [Entitic vol] 9.4 fL Normal 9.0-12.7 [facility] Comment on above: Order Comment: Speci men Type: BLOOD SPECIMENOrdering Facility: [facility] Address: [address] [place] [address] Performed By: #### 5 8410-2 ####[facility] LABCLIA [id number] [place] [address] [place] Platelets (Bld) [#/Vol] 139 10*3/uL Low 150-400 [facility] Comment on above: Order Comment: Speci men Type: BLOOD SPECIMENOrdering Facility: [facility] Address: [address] [place] [address] Performed By: #### 5 8410-2 ####[facility] LABCLIA [id number] [place] [address] [place] RBC (Bld) [#/Vol] 2.32 10*6/uL Low 3.90-5.20 [facility] Comment on above: Order Comment: Speci men Type: BLOOD SPECIMENOrdering Facility: [facility] Address: [address] [place] [address] Performed By: #### 5 8410-2 ####[facility] LABIA [id number] [place] [address] [place] WBC (Bld) [#/Vol] 7.52 10*3/uL Normal 3.70-11.00 [facility] Comment on above: Order Comment: Speci men Type: BLOOD SPECIMENOrdering Facility: [facility] Address: [address] [place] [address] Performed By: #### 5 8410-2 ####[facility] LABIA [id number] [place] [address] [place] Erythrocyte distribution width (RBC) [Ratio] 16.3 % High 11.5-15.0 [facility] Comment on above: Order Comment: Speci men Type: BLOOD SPECIMENOrdering Facility: [facility] Address: [address] [place] [address] Performed By: #### 5 8410-2 ####[facility] LABIA [id number] [place] [address] [place] Hematocrit (Bld) [Volume fraction] 23.2 % Low 36.0-46.0 [facility] Comment on above: Order Comment: Speci men Type: BLOOD SPECIMENOrdering Facility: [facility] Address: [address] [place] [address] Performed By: #### 5 8410-2 ####[facility] LABIA [id number] [place] [address] [place] Hemoglobin (Bld) [Mass/Vol] 7.8 g/dL Low 11.5-15.5 [facility] Comment on above: Order Comment: Speci men Type: BLOOD SPECIMENOrdering Facility: [facility] Address: [address] [place] [address] Performed By: #### 5 8410-2 ####[facility] LABIA [id number] [place] [address] [place] MCH (RBC) [Entitic mass] 31.3 pg Normal 26.0-34.0 [facility] Comment on above: Order Comment: Speci men Type: BLOOD SPECIMENOrdering Facility: [facility] Address: [address] [place] [address] Performed By: #### 5 8410-2 ####[facility] LABIA [id number] [place] [address] [place] MCHC (RBC) [Mass/Vol] 33.6 g/dL Normal 30.5-36.0 [facility] Comment on above: Order Comment: Speci men Type: BLOOD SPECIMENOrdering Facility: [facility] Address: [address] [place] [address] Performed By: #### 5 8410-2 ####[facility] LABIA [id number] [place] [address] [place] MCV (RBC) [Entitic vol] 93.2 fL Normal 80.0-100.0 [facility] Comment on above: Order Comment: Speci men Type: BLOOD SPECIMENOrdering Facility: [facility] Address: [address] [place] [address] Performed By: #### 5 8410-2 ####[facility] LABIA [id number] [place] [address] [place] Nucleated RBC (Bld) [#/Vol] 10*3/uL Normal <0.01 [facility] Comment on above: Order Comment: Speci men Type: BLOOD SPECIMENOrdering Facility: [facility] Address: [address] [place] [address] Performed By: #### 5 8410-2 ####[facility] LABCLIA [id number] [place] [address] [place] Platelet mean volume (Bld) [Entitic vol] 9.5 fL Normal 9.0-12.7 [facility] Comment on above: Order Comment: Speci men Type: BLOOD SPECIMENOrdering Facility: [facility] Address: [address] [place] [address] Performed By: #### 5 8410-2 ####[facility] LABCLIA [id number] [place] [address] [place] Platelets (Bld) [#/Vol] 146 10*3/uL Low 150-400 [facility] Comment on above: Order Comment: Speci men Type: BLOOD SPECIMENOrdering Facility: [facility] Address: [address] [place] [address] Performed By: #### 5 8410-2 ####[facility] LABIA [id number] [place] [address] [place] RBC (Bld) [#/Vol] 2.49 10*6/uL Low 3.90-5.20 [facility] Comment on above: Order Comment: Speci men Type: BLOOD SPECIMENOrdering Facility: [facility] Address: [address] [place] [address] Performed By: #### 5 8410-2 ####[facility] LABCLIA [id number] [place] [address] [place] WBC (Bld) [#/Vol] 8.72 10*3/uL Normal 3.70-11.00 [facility] Comment on above: Order Comment: Speci men Type: BLOOD SPECIMENOrdering Facility: [facility] Address: [address] [place] [address] Performed By: #### 5 8410-2 ####[facility] LABCLIA [id number] [address] [address] [place] CNCOon 09-10-[address] [facility] Comprehensive metabolic 2000 panelon 09-10-2024 Albumin [Mass/Vol] 2.5 g/dL Low 3.9-4.9 [facility] Comment on above: Order Comment: Speci men Type: BLOOD SPECIMENOrdering Facility: [facility] Address: [address] [place] [address] Performed By: #### 2 4323-8, 27704-05, ####[facility] LABIA [id number] [place] [address] [place] ALP [Catalytic activity/Vol] 40 U/L Normal 34-123 [facility] Comment on above: Order Comment: Speci men Type: BLOOD SPECIMENOrdering Facility: [facility] Address: [address] [place] [address] Performed By: #### 2 4323-8, 27704-05, ####[facility] LABIA [id number] [place] [address] [place] ALT [Catalytic activity/Vol] 6 U/L Low 7-38 [facility] Comment on above: Order Comment: Speci men Type: BLOOD SPECIMENOrdering Facility: [facility] Address: [address] [place] [address] Performed By: #### 2 4323-8, 27704-05, ####[facility] LABIA [id number] [address] [address] [place] Anion gap [Moles/Vol] 12 mmol/L Normal 8-15 [facility] Comment on above: Order Comment: Speci men Type: BLOOD SPECIMENOrdering Facility: [facility] Address: [address] [place] [address] Performed By: #### 2 4323-8, 277-, ####[facility] LABCLIA [id number] [address] [address] [place] AST [Catalytic activity/Vol] 8 U/L Low 13-35 [facility] Comment on above: Order Comment: Speci men Type: BLOOD SPECIMENOrdering Facility: [facility] Address: [address] [place], [place] [address] Performed By: #### 2 4323-8, 2776-10, ####[facility] LABCLIA [id number] [address] [address] [place] Bilirubin [Mass/Vol] 0.5 mg/dL Normal 0.2-1.3 [facility] Comment on above: Order Comment: Speci men Type: BLOOD SPECIMENOrdering Facility: [facility] Address: [address] [place] [address] Performed By: #### 2 4323-8, 2776-10, ####[facility] LABCLIA [id number] [address] [address] [place] Calcium [Mass/Vol] 8.0 mg/dL Low 8.5-10.2 [facility] Comment on above: Order Comment: Speci men Type: BLOOD SPECIMENOrdering Facility: [facility] Address: [address] [place], [place] [address] Performed By: #### 2 4323-8, 2776-10, ####[facility] LABCLIA [id number] [address] [address] [place] Chloride [Moles/Vol] 102 mmol/L Normal 98-107 [facility] Comment on above: Order Comment: Speci men Type: BLOOD SPECIMENOrdering Facility: [facility] Address: [address] [place] [address] Performed By: #### 2 4323-8, 27704-05, ####[facility] LABCLIA [id number] [place] [id number] [place] CO2 [Moles/Vol] 22 mmol/L Normal 22-30 [facility] Comment on above: Order Comment: Speckimberly cooley Type: BLOOD SPECIMENOrdering Facility: [facility] Address: [address] [place] [address] Performed By: #### 2 4323-8, 2777, ####[facility] LABCLIA [id number] [place] [id number] [place] Creatinine [Mass/Vol] 0.58 mg/dL Normal 0.58-0.96 [facility] Comment on above: Order Comment: Speci men Type: BLOOD SPECIMENOrdering Facility: [facility] Address: [address] [place] [address] Performed By: #### 2 4323-8, 27704-05, ####[facility] [id number] [place] [address] [place] Creatinine and Glomerular filtration rate.predicted panel (S/P/Bld) 96 mL/min/1.73m??? Normal >=60 [facility] Comment on above: Order Comment: Cheng cooley Type: BLOOD SPECIMENOrdering Facility: [facility] Address: [address] [place] [address] Result Comment: Ethel mated Glomerular Filtration Rate [...] actual GFR. Performed By: #### 2 4323-8, 2777, ####[facility] LABCLIA [id number] [address] [address] [place] Glucose [Mass/Vol] 818 mg/dL High 74-99 [facility] Comment on above: Order Comment: Bekai men Type: BLOOD SPECIMENOrdering Facility: [facility] Address: [address] [place] [address] Result Comment: The [place] [employer] (ADA) provides guidance for cutoff [...] Standards of Medical Care in Diabetes 2016, [place] [employer]. Diabetes Care. 2016.39(Suppl 1). Performed By: #### 2 4323-8, 27704-05, ####[facility] LABCLIA [id number] [place] [address] [place] Potassium [Moles/Vol] 3.3 mmol/L Low 3.7-5.1 [facility] Comment on above: Order Comment: Cheng cooley Type: BLOOD SPECIMENOrdering Facility: [facility] Address: [address] [place] [address] Performed By: #### 2 4323-8, 27704-05, ####[facility] LABCLIA [id number] [place] [id number] [place] Protein [Mass/Vol] 4.2 g/dL Low 6.3-8.0 [facility] Comment on above: Order Comment: Cheng cooley Type: BLOOD SPECIMENOrdering Facility: [facility] Address: [address] [place], [place] [address] Performed By: #### 2 4323-8, 27704-05, ####[facility] LABCLIA [id number] [place] [id number] [place] Sodium [Moles/Vol] 136 mmol/L Normal 136-144 [facility] Comment on above: Order Comment: Speci men Type: BLOOD SPECIMENOrdering Facility: [facility] Address: [address] [place] [address] Performed By: #### 2 4323-8, 2776-10, ####[facility] LABCLIA [id number] [place] [address] [place] Urea nitrogen [Mass/Vol] 7 mg/dL Normal 7-21 [facility] Comment on above: Order Comment: Speci men Type: BLOOD SPECIMENOrdering Facility: [facility] Address: [address] [place] [address] Performed By: #### 2 4323-8, 2776-10, ####[facility] LABCLIA [id number] [place] [address] [place] Albumin [Mass/Vol] 3.4 g/dL Low 3.9-4.9 [facility] Comment on above: Order Comment: Speci men Type: BLOOD SPECIMENOrdering Facility: [facility] Address: [address] [place] [address] Performed By: #### 2 4323-8, 2776-10, ####[facility] LABCLIA [id number] [place] [address] [place] ALP [Catalytic activity/Vol] 46 U/L Normal 34-123 [facility] Comment on above: Order Comment: Speci men Type: BLOOD SPECIMENOrdering Facility: [facility] Address: [address] [place], [place] [address] Performed By: #### 2 4323-8, 2776-10, ####[facility] LABCLIA [id number] [facility] [address] [address] [place] ALT [Catalytic activity/Vol] U/L Low 7-38 [facility] Comment on above: Order Comment: Speci men Type: BLOOD SPECIMENOrdering Facility: [facility] Address: [address] [place] [address] Result Comment: Resu lt rechecked. Performed By: #### 2 4323-8, 27704-05, ####[facility] LABCLIA [id number] [place] [id number] [place] Anion gap [Moles/Vol] 9 mmol/L Normal 8-15 [facility] Comment on above: Order Comment: Speci men Type: BLOOD SPECIMENOrdering Facility: [facility] Address: [address] [place] [address] Performed By: #### 2 4323-8, 27704-05, ####[facility] LABCLIA [id number] [place] [address] [place] AST [Catalytic activity/Vol] 10 U/L Low 13-35 [facility] Comment on above: Order Comment: Speci men Type: BLOOD SPECIMENOrdering Facility: [facility] Address: [address] [place] [address] Performed By: #### 2 4323-8, 2776-10, ####[facility] LABIA [id number] [place] [address] [place] Bilirubin [Mass/Vol] 0.4 mg/dL Normal 0.2-1.3 [facility] Comment on above: Order Comment: Speci men Type: BLOOD SPECIMENOrdering Facility: [facility] Address: [address] [place], [place] [address] Performed By: #### 2 4323-8, 2776-10, ####[facility] LABCLIA [id number] [place] [id number] [place] Calcium [Mass/Vol] 8.3 mg/dL Low 8.5-10.2 [facility] Comment on above: Order Comment: Speci men Type: BLOOD SPECIMENOrdering Facility: [facility] Address: [address] [place], [place] [address] Performed By: #### 2 4323-8, 27704-05, ####[facility] LABCLIA [id number] [place] [id number] [place] Chloride [Moles/Vol] 100 mmol/L Normal 98-107 [facility] Comment on above: Order Comment: Speci men Type: BLOOD SPECIMENOrdering Facility: [facility] Address: [address] [place] [address] Performed By: #### 2 4323-8, 27704-05, ####[facility] LABCLIA [id number] [place] [address] [place] CO2 [Moles/Vol] 27 mmol/L Normal 22-30 [facility] Comment on above: Order Comment: Speci men Type: BLOOD SPECIMENOrdering Facility: [facility] Address: [address] [place] [address] Performed By: #### 2 4323-8, 27704-05, ####[facility] LABIA [id number] [place] [address] [place] Creatinine [Mass/Vol] 0.81 mg/dL Normal 0.58-0.96 [facility] Comment on above: Order Comment: Speci men Type: BLOOD SPECIMENOrdering Facility: [facility] Address: [address] [place] [address] Performed By: #### 2 4323-8, 27704-05, ####[facility] LABIA [id number] [place] [address] [place] Creatinine and Glomerular filtration rate.predicted panel (S/P/Bld) 77 mL/min/1.73m??? Normal >=60 [facility] Comment on above: Order Comment: Speci men Type: BLOOD SPECIMENOrdering Facility: [facility] Address: [address] [place] [address] Result Comment: Ethel mated Glomerular Filtration Rate [...] actual GFR. Performed By: #### 2 4323-8, 277-, ####[facility] LABCLIA [id number] [place] [id number] [place] Glucose [Mass/Vol] 147 mg/dL High 74-99 [facility] Comment on above: Order Comment: Speci men Type: BLOOD SPECIMENOrdering Facility: [facility] Address: [address] [place] [address] Result Comment: The [place] [employer] (ADA) provides guidance for cutoff [...] Standards of Medical Care in Diabetes 2016, [place] [employer]. Diabetes Care. 2016.39(Suppl 1). Performed By: #### 2 4323-8, 27704-05, ####[facility] LABCLIA [id number] [address] [address] [place] Potassium [Moles/Vol] 3.7 mmol/L Normal 3.7-5.1 [facility] Comment on above: Order Comment: Speci men Type: BLOOD SPECIMENOrdering Facility: [facility] Address: [address] [place] [id number] Performed By: #### 2 4323-8, 2777-1, ####[facility] LABCLIA [id number] [address] [address] [place] Protein [Mass/Vol] 5.3 g/dL Low 6.3-8.0 [facility] Comment on above: Order Comment: Speci men Type: BLOOD SPECIMENOrdering Facility: [facility] Address: [address] [place] [address] Performed By: #### 2 4323-8, 2777, ####[facility] LABIA [id number] [place] [id number] [place] Sodium [Moles/Vol] 136 mmol/L Normal 136-144 [facility] Comment on above: Order Comment: Speci men Type: BLOOD SPECIMENOrdering Facility: [facility] Address: [address] [place] [address] Performed By: #### 2 4323-8, 2777, ####[facility] LABIA [id number] [place] [id number] [place] Urea nitrogen [Mass/Vol] 13 mg/dL Normal 7-21 [facility] Comment on above: Order Comment: Speci men Type: BLOOD SPECIMENOrdering Facility: [facility] Address: [address] [place] [address] Performed By: #### 2 4323-8, 2777, ####[facility] LABIA [id number] [address] [address] [place] Magnesium SerPl-mCncon 09-10 Magnesium [Mass/Vol] 1.8 mg/dL Normal 1.7-2.3 [facility] Comment on above: Order Comment: Speci men Type: BLOOD SPECIMENOrdering Facility: [facility] Address: [address] [place] [address] Performed By: #### 2 4323-8, 2777-1, ####[facility] LABCLIA [id number] [address] [address] [place] Magnesium [Mass/Vol] 2.5 mg/dL High 1.7-2.3 [facility] Comment on above: Order Comment: Speci men Type: BLOOD SPECIMENOrdering Facility: [facility] Address: [address] [place] [address] Performed By: #### 2 4323-8, 2777-1, ####[facility] LABCLIA [id number] [place] [address] [place] Phosphate SerPl-mCncon 09-10 Phosphate [Mass/Vol] 1.3 mg/dL Low 2.7-4.8 [facility] Comment on above: Order Comment: Speci men Type: BLOOD SPECIMENOrdering Facility: [facility] Address: [address] [place] [address] Performed By: #### 2 4323-8, 2777-1, ####[facility] LABIA [id number] [place] [address] [place] Phosphate [Mass/Vol] 2.0 mg/dL Low 2.7-4.8 [facility] Comment on above: Order Comment: Speci men Type: BLOOD SPECIMENOrdering Facility: [facility] Address: [address] [place] [address] Result Comment: Resu lt rechecked. Performed By: #### 2 4323-8, 2777-1, ####[facility] LABCLIA [id number] [place] [id number] [place] THERAPY NTon 09-10-[address] [facility] XR ABDOMEN 1V SUPINEon 09-10 XR ABDOMEN 1V SUPINE Normal [facility] CASE MGT INIT ASSESon 2023 CASE MGT INIT ASSES Normal [facility] CBC panel Auto (Bld)on 09-09 Erythrocyte distribution width (RBC) [Ratio] 16.3 % High 11.5-15.0 [facility] Comment on above: Order Comment: Speci men Type: BLOOD SPECIMENOrdering Facility: [facility] Address: [address] [place] [address] Performed By: #### 5 8410-2 ####[facility] LABIA [id number] [place] [address] [place] Hematocrit (Bld) [Volume fraction] 26.7 % Low 36.0-46.0 [facility] Comment on above: Order Comment: Speci men Type: BLOOD SPECIMENOrdering Facility: [facility] Address: [address] [place] [address] Performed By: #### 5 8410-2 ####[facility] LABIA [id number] [place] [address] [place] Hemoglobin (Bld) [Mass/Vol] 9.3 g/dL Low 11.5-15.5 [facility] Comment on above: Order Comment: Speci men Type: BLOOD SPECIMENOrdering Facility: [facility] Address: [address] [place] [address] Performed By: #### 5 8410-2 ####[facility] LABIA [id number] [place] [address] [place] MCH (RBC) [Entitic mass] 31.4 pg Normal 26.0-34.0 [facility] Comment on above: Order Comment: Speci men Type: BLOOD SPECIMENOrdering Facility: [facility] Address: [address] [place] [address] Performed By: #### 5 8410-2 ####[facility] LABCLIA [id number] [place] [address] [place] MCHC (RBC) [Mass/Vol] 34.8 g/dL Normal 30.5-36.0 [facility] Comment on above: Order Comment: Speci men Type: BLOOD SPECIMENOrdering Facility: [facility] Address: [address] [place] [address] Performed By: #### 5 8410-2 ####[facility] LABIA [id number] [place] [address] [place] MCV (RBC) [Entitic vol] 90.2 fL Normal 80.0-100.0 [facility] Comment on above: Order Comment: Speci men Type: BLOOD SPECIMENOrdering Facility: [facility] Address: [address] [place] [address] Performed By: #### 5 8410-2 ####[facility] LABIA [id number] [place] [address] [place] Nucleated RBC (Bld) [#/Vol] 10*3/uL Normal <0.01 [facility] Comment on above: Order Comment: Speci men Type: BLOOD SPECIMENOrdering Facility: [facility] Address: [address] [place] [address] Performed By: #### 5 8410-2 ####[facility] LABIA [id number] [place] [address] [place] Platelet mean volume (Bld) [Entitic vol] 9.0 fL Normal 9.0-12.7 [facility] Comment on above: Order Comment: Speci men Type: BLOOD SPECIMENOrdering Facility: [facility] Address: [address] [place] [address] Performed By: #### 5 8410-2 ####[facility] LABIA [id number] [place] [address] [place] Platelets (Bld) [#/Vol] 157 10*3/uL Normal 150-400 [facility] Comment on above: Order Comment: Speci men Type: BLOOD SPECIMENOrdering Facility: [facility] Address: [address] [place], [place] [address] Performed By: #### 5 8410-2 ####[facility] LABCLIA [id number] [place] [address] [place] RBC (Bld) [#/Vol] 2.96 10*6/uL Low 3.90-5.20 [facility] Comment on above: Order Comment: Speci men Type: BLOOD SPECIMENOrdering Facility: [facility] Address: [address] [place] [address] Performed By: #### 5 8410-2 ####[facility] LABIA [id number] [place] [address] [place] WBC (Bld) [#/Vol] 9.46 10*3/uL Normal 3.70-11.00 [facility] Comment on above: Order Comment: Speci men Type: BLOOD SPECIMENOrdering Facility: [facility] Address: [address] [place] [address] Performed By: #### 5 8410-2 ####[facility] LABIA [id number] [place] [address] [place] CNPNon 09-09-[address] [facility] ANES POSTPROC EVALon 024 ANES POSTPROC EVAL Normal [facility] ANES PRE-OPon 09-08-2024 ANES PRE-OP Normal [facility] BRIEF OP NOTon 09-08-2024 BRIEF OP NOT Normal [facility] CBC panel Auto (Bld)on 09-08 Erythrocyte distribution width (RBC) [Ratio] 16.0 % High 11.5-15.0 [facility] Comment on above: Order Comment: Speci men Type: BLOOD SPECIMENOrdering Facility: [facility] Address: [address] [place] [address] Performed By: #### 5 8410-2 ####[facility] LABCLIA [id number] [place] [address] [place] Hematocrit (Bld) [Volume fraction] 27.5 % Low 36.0-46.0 [facility] Comment on above: Order Comment: Speci men Type: BLOOD SPECIMENOrdering Facility: [facility] Address: [address] [place] [address] Performed By: #### 5 8410-2 ####[facility] LABCLIA [id number] [place] [address] [place] Hemoglobin (Bld) [Mass/Vol] 9.4 g/dL Low 11.5-15.5 [facility] Comment on above: Order Comment: Speci men Type: BLOOD SPECIMENOrdering Facility: [facility] Address: [address] [place] [address] Performed By: #### 5 8410-2 ####[facility] LABCLIA [id number] [place] [address] [place] MCH (RBC) [Entitic mass] 31.1 pg Normal 26.0-34.0 [facility] Comment on above: Order Comment: Speci men Type: BLOOD SPECIMENOrdering Facility: [facility] Address: [address] [place] [address] Performed By: #### 5 8410-2 ####[facility] LABIA [id number] [place] [address] [place] MCHC (RBC) [Mass/Vol] 34.2 g/dL Normal 30.5-36.0 [facility] Comment on above: Order Comment: Speci men Type: BLOOD SPECIMENOrdering Facility: [facility] Address: [address] [place] [address] Performed By: #### 5 8410-2 ####[facility] LABIA [id number] [place] [address] [place] MCV (RBC) [Entitic vol] 91.1 fL Normal 80.0-100.0 [facility] Comment on above: Order Comment: Speci men Type: BLOOD SPECIMENOrdering Facility: [facility] Address: [address] [place] [address] Performed By: #### 5 8410-2 ####[facility] LABIA [id number] [place] [address] [place] Nucleated RBC (Bld) [#/Vol] 10*3/uL Normal <0.01 [facility] Comment on above: Order Comment: Speci men Type: BLOOD SPECIMENOrdering Facility: [facility] Address: [address] [place] [address] Performed By: #### 5 8410-2 ####[facility] LABIA [id number] [place] [address] [place] Platelet mean volume (Bld) [Entitic vol] 9.1 fL Normal 9.0-12.7 [facility] Comment on above: Order Comment: Speci men Type: BLOOD SPECIMENOrdering Facility: [facility] Address: [address] [place] [address] Performed By: #### 5 8410-2 ####[facility] LABIA [id number] [place] [address] [place] Platelets (Bld) [#/Vol] 143 10*3/uL Low 150-400 [facility] Comment on above: Order Comment: Speci men Type: BLOOD SPECIMENOrdering Facility: [facility] Address: [address] [place] [address] Performed By: #### 5 8410-2 ####[facility] LABIA [id number] [place] [address] [place] RBC (Bld) [#/Vol] 3.02 10*6/uL Low 3.90-5.20 [facility] Comment on above: Order Comment: Speci men Type: BLOOD SPECIMENOrdering Facility: [facility] Address: [address] [place] [address] Performed By: #### 5 8410-2 ####[facility] LABCLIA [id number] [place] [address] [place] WBC (Bld) [#/Vol] 8.86 10*3/uL Normal 3.70-11.00 [facility] Comment on above: Order Comment: Speci men Type: BLOOD SPECIMENOrdering Facility: [facility] Address: [address] [place] [address] Performed By: #### 5 8410-2 ####[facility] LABIA [id number] [place] [address] [place] Erythrocyte distribution width (RBC) [Ratio] 15.4 % High 11.5-15.0 [facility] Comment on above: Order Comment: Speci men Type: BLOOD SPECIMENOrdering Facility: [facility] Address: [address] [place] [address] Performed By: #### 5 8410-2 ####[facility] LABIA [id number] [place] [address] [place] Hematocrit (Bld) [Volume fraction] 30.6 % Low 36.0-46.0 [facility] Comment on above: Order Comment: Speci men Type: BLOOD SPECIMENOrdering Facility: [facility] Address: [address] [place] [address] Performed By: #### 5 8410-2 ####[facility] LABIA [id number] [place] [address] [place] Hemoglobin (Bld) [Mass/Vol] 10.3 g/dL Low 11.5-15.5 [facility] Comment on above: Order Comment: Speci men Type: BLOOD SPECIMENOrdering Facility: [facility] Address: [address] [place] [address] Performed By: #### 5 8410-2 ####[facility] LABIA [id number] [place] [address] [place] MCH (RBC) [Entitic mass] 30.7 pg Normal 26.0-34.0 [facility] Comment on above: Order Comment: Speci men Type: BLOOD SPECIMENOrdering Facility: [facility] Address: [address] [place] [address] Performed By: #### 5 8410-2 ####[facility] LABCLIA [id number] [place] [address] [place] MCHC (RBC) [Mass/Vol] 33.7 g/dL Normal 30.5-36.0 [facility] Comment on above: Order Comment: Speci men Type: BLOOD SPECIMENOrdering Facility: [facility] Address: [address] [place] [address] Performed By: #### 5 8410-2 ####[facility] LABCLIA [id number] [place] [address] [place] MCV (RBC) [Entitic vol] 91.1 fL Normal 80.0-100.0 [facility] Comment on above: Order Comment: Speci men Type: BLOOD SPECIMENOrdering Facility: [facility] Address: [address] [place] [address] Performed By: #### 5 8410-2 ####[facility] LABIA [id number] [place] [address] [place] Nucleated RBC (Bld) [#/Vol] 10*3/uL Normal <0.01 [facility] Comment on above: Order Comment: Speci men Type: BLOOD SPECIMENOrdering Facility: [facility] Address: [address] [place] [address] Performed By: #### 5 8410-2 ####[facility] LABCLIA [id number] [place] [address] [place] Platelet mean volume (Bld) [Entitic vol] 8.9 fL Low 9.0-12.7 [facility] Comment on above: Order Comment: Speci men Type: BLOOD SPECIMENOrdering Facility: [facility] Address: [address] [place] [address] Performed By: #### 5 8410-2 ####[facility] LABCLIA [id number] [place] [address] [place] Platelets (Bld) [#/Vol] 167 10*3/uL Normal 150-400 [facility] Comment on above: Order Comment: Speci men Type: BLOOD SPECIMENOrdering Facility: [facility] Address: [address] [place] [address] Performed By: #### 5 8410-2 ####[facility] LABIA [id number] [place] [address] [place] RBC (Bld) [#/Vol] 3.36 10*6/uL Low 3.90-5.20 [facility] Comment on above: Order Comment: Speci men Type: BLOOD SPECIMENOrdering Facility: [facility] Address: [address] [place] [address] Performed By: #### 5 8410-2 ####[facility] LABIA [id number] [place] [address] [place] WBC (Bld) [#/Vol] 7.96 10*3/uL Normal 3.70-11.00 [facility] Comment on above: Order Comment: Speci men Type: BLOOD SPECIMENOrdering Facility: [facility] Address: [address] [place] [address] Performed By: #### 5 8410-2 ####[facility] LABIA [id number] [place] [address] [place] CNPNon 09-08-[address] [facility] Comprehensive metabolic 2000 panelon 09-08-2024 Albumin [Mass/Vol] 3.9 g/dL Normal 3.9-4.9 [facility] Comment on above: Order Comment: Speci men Type: BLOOD SPECIMENOrdering Facility: [facility] Address: [address] [place] [address] Result Comment: Resu lt rechecked. Performed By: #### 2 4323-8, 08166-8, 2776- ####[facility] LABCLIA [id number] [place] [address] [place] ALP [Catalytic activity/Vol] 35 U/L Normal 34-123 [facility] Comment on above: Order Comment: Speci men Type: BLOOD SPECIMENOrdering Facility: [facility] Address: [address] [place] [address] Performed By: #### 2 4323-8, 89134-8, 2776-10 ####[facility] LABCLIA [id number] [place] [address] [place] ALT [Catalytic activity/Vol] 10 U/L Normal 7-38 [facility] Comment on above: Order Comment: Speci men Type: BLOOD SPECIMENOrdering Facility: [facility] Address: [address] [place] [address] Performed By: #### 2 4323-8, 79318-5, 2776-10 ####[facility] LABIA [id number] [place] [address] [place] Anion gap [Moles/Vol] 13 mmol/L Normal 8-15 [facility] Comment on above: Order Comment: Speci men Type: BLOOD SPECIMENOrdering Facility: [facility] Address: [address] [place] [address] Performed By: #### 2 4323-8, 55270-3, 2776-10 ####[facility] LABCLIA [id number] [place] [id number] [place] AST [Catalytic activity/Vol] 15 U/L Normal 13-35 [facility] Comment on above: Order Comment: Speci men Type: BLOOD SPECIMENOrdering Facility: [facility] Address: [address] [place], [place] [address] Performed By: #### 2 4323-8, , 2776-10 ####[facility] LABCLIA [id number] [address] [address] [place] Bilirubin [Mass/Vol] 0.7 mg/dL Normal 0.2-1.3 [facility] Comment on above: Order Comment: Speci men Type: BLOOD SPECIMENOrdering Facility: [facility] Address: [address] [place] [address] Performed By: #### 2 4323-8, , 2776-10 ####[facility] LABCLIA [id number] [place] [address] [place] Calcium [Mass/Vol] 7.9 mg/dL Low 8.5-10.2 [facility] Comment on above: Order Comment: Speci men Type: BLOOD SPECIMENOrdering Facility: [facility] Address: [address] [place] [address] Result Comment: Resu lt rechecked. Performed By: #### 2 4323-8, , 2776-10 ####[facility] LABCLIA [id number] [place] [address] [place] Chloride [Moles/Vol] 101 mmol/L Normal 98-107 [facility] Comment on above: Order Comment: Speci men Type: BLOOD SPECIMENOrdering Facility: [facility] Address: [address] [place], [place] [address] Performed By: #### 2 4323-8, , 2776-10 ####[facility] LABCLIA [id number] [place] [id number] [place] CO2 [Moles/Vol] 23 mmol/L Normal 22-30 [facility] Comment on above: Order Comment: Speci men Type: BLOOD SPECIMENOrdering Facility: [facility] Address: [address] [place], [place] [address] Performed By: #### 2 4323-8, , 2776-10 ####[facility] LABIA [id number] [place] [id number] [place] Creatinine [Mass/Vol] 0.87 mg/dL Normal 0.58-0.96 [facility] Comment on above: Order Comment: Cheng cooley Type: BLOOD SPECIMENOrdering Facility: [facility] Address: [address] [place] [address] Performed By: #### 2 4323-8, , 2776-10 ####[facility] LABIA [id number] [place] [address] [place] Creatinine and Glomerular filtration rate.predicted panel (S/P/Bld) 71 mL/min/1.73m??? Normal >=60 [facility] Comment on above: Order Comment: Cheng cooley Type: BLOOD SPECIMENOrdering Facility: [facility] Address: [address] [place] [address] Result Comment: Ethel mated Glomerular Filtration Rate [...] Performed By: #### 2 4323-8, , 2776-10 ####[facility] LABIA [id number] [place] [id number] [place] Glucose [Mass/Vol] 125 mg/dL High 74-99 [facility] Comment on above: Order Comment: Cheng cooley Type: BLOOD SPECIMENOrdering Facility: [facility] Address: [address] [place] [address] Result Comment: The [place] [employer] (ADA) provides guidance for cutoff [...] Standards of Medical Care in Diabetes 2016, [place] [employer]. Diabetes Care. 2016.39(Suppl 1). Performed By: #### 2 4323-8, , 2776-10 ####[facility] LABCLIA [id number] [address] [address] [place] Potassium [Moles/Vol] 3.4 mmol/L Low 3.7-5.1 [facility] Comment on above: Order Comment: Speci men Type: BLOOD SPECIMENOrdering Facility: [facility] Address: [address] [place] [address] Performed By: #### 2 4323-8, , 2776-10 ####[facility] LABCLIA [id number] [place] [address] [place] Protein [Mass/Vol] 5.2 g/dL Low 6.3-8.0 [facility] Comment on above: Order Comment: Speci men Type: BLOOD SPECIMENOrdering Facility: [facility] Address: [address] [place] [address] Result Comment: Resu lt rechecked. Performed By: #### 2 4323-8, , 2776-10 ####[facility] LABIA [id number] [place] [id number] [place] Sodium [Moles/Vol] 137 mmol/L Normal 136-144 [facility] Comment on above: Order Comment: Speci men Type: BLOOD SPECIMENOrdering Facility: [facility] Address: [address] [place] [address] Performed By: #### 2 4323-8, , 2776-10 ####[facility] LABCLIA [id number] [address] [address] [place] Urea nitrogen [Mass/Vol] 17 mg/dL Normal 7-21 [facility] Comment on above: Order Comment: Speci men Type: BLOOD SPECIMENOrdering Facility: [facility] Address: [address] [place] [address] Performed By: #### 2 4323-8, 07362-5, 2777-1 ####[facility] LABCLIA [id number] [place] [id number] [place] Magn[facility] Magnesium [Mass/Vol] 1.6 mg/dL Low 1.7-2.3 [facility] Comment on above: Order Comment: Speci men Type: BLOOD SPECIMENOrdering Facility: [facility] Address: [address] [place] [address] Performed By: #### 2 4323-8, 65092-2, 2777-1 ####[facility] LABCLIA [id number] [place] [id number] [place] OPERATIVE NOon 09-08-[address] [facility] Phosphate SerPl-mCncon 09-08 Phosphate [Mass/Vol] 4.2 mg/dL Normal 2.7-4.8 [facility] Comment on above: Order Comment: Speci men Type: BLOOD SPECIMENOrdering Facility: [facility] Address: [address] [place] [address] Performed By: #### 2 4323-8, 76521-5, 2777-1 ####[facility] LABCLIA [id number] [place] [id number] [place] SURGICAL PATHOLOGYon 024 BLOCK FOR ADDITIONAL BIOMARKERS/MOLECULAR STUDIES B[address] [facility] Comment on above: Order Comment: Speci men Type: TISSUE SPECIMENOrdering Facility: [facility] Address: [address] [place] [address] Performed By: #### S ####[facility] LABIA [id number] [address] [place] CASE REPORT Normal [facility] Comment on above: Order Comment: Speci men Type: TISSUE SPECIMENOrdering Facility: [facility] Address: [address] [place] [address] Result Comment: Surg ical Pathology Report Case: [id number] Provider: Fredis Buckner MD Collected: 09/08/2024 11:28 [...] Small Bowel, Ileostomy Performed By: #### S ####[facility] [id number] [address] [place] CLINICAL HISTORY Normal [facility] Comment on above: Order Comment: Speci yasir Type: TISSUE SPECIMENOrdering Facility: [facility] Address: [address] [place] [address] Result Comment: Pre- op diagnosis:High grade ovarian cancer (HCC) [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 Med Bruch (GI and Hepatobiliary Pathology) has reviewed part F of this case and agrees. Performed By: #### S ####[facility] LABIA [id number] [address] [place] FINAL DIAGNOSIS Normal [facility] Comment on above: Order Comment: Speci men Type: TISSUE SPECIMENOrdering Facility: [facility] Address: [address] [place] [address] Result Comment: A. L eft fallopian tube [...] changes; see comment Performed By: #### S ####[facility] LABCLIA [id number] [address] [place] FINAL PERFORMING LAB Normal [facility] Comment on above: Order Comment: Speci men Type: TISSUE SPECIMENOrdering Facility: [facility] Address: [address] [place] [address] Result Comment: Diag nostic interpretation performed at [facility], [address] [place] [address] CLIA# [id number] Director: Lam Flaherty M.D. Performed By: #### S ####[facility] LABCLIA [id number] [address] STATES [facility] GROSS DESCRIPTION Normal [facility] Comment on above: Order Comment: Speci men Type: TISSUE SPECIMENOrdering Facility: [facility] Address: [address] [place] [address] Result Comment: A. F allopian Tube And [...] a pinpoint lumen and unremarkable cut surfaces. Chemical Processing Supervisor sections are submitted as follows:A1-A4 ovarian cyst with entire granular areaA5-A6 aircraft sales representative solid areasA7-A8 entire possible fallopian tubeB. [...] 3 cm in greatest width. The endometrium pink-del rosario red and velvety with no polyps [...] identified. Uninvolved ovarian tissue is not present. Chemical Processing Supervisor sections are submitted as follows:B1 one half of cervixB2 opposing half of cervixB3 lower uterine segmentB4 one half of uterine wall, full-thicknessB5 opposing half of uterine wall, full-thicknessB6 aircraft sales representative nodulesB7-B8 fallopian tube, submitted entirelyB9-B11 aircraft sales representative ovaryC. Omentum, ResectionReceived in formalin labeled omentum, resection is a 8.7 x 4 x 1.5 cm aggregate of yellow, lobulated fatty tissue consistent with omentum. Dissection reveals a pale yellow-del rosario, firm indurated area measuring 4 cm in greatest dimension. Sectioning reveals pale yellow-del rosario cut surfaces. Lesional areas represent 30% of the omental tissue. Chemical Processing Supervisor sections are submitted in C1-C3.D. Colon, Sigmoid, [...] normally folded with no other lesions identified. Chemical Processing Supervisor sections are submitted as follows:D1 small segment [...] hemorrhage. No other discrete lesions are identified. Chemical Processing Supervisor sections are submitted as follows:E1 margins, perpendicularE2 [...] folded mucosal surfaces with no lesions identified. Chemical Processing Supervisor sections are submitted in F1.SAI September 09, 2024 2:16 PMGross examination performed at [facility], [address] [place] [address] Performed By: #### S ####[facility] LABCLIA [id number] [place] [address] [place] SYNOPTIC REPORT Normal [facility] Comment on above: Order Comment: Speci men Type: TISSUE SPECIMENOrdering Facility: [facility] Address: [address] [place] [address] Result Comment: OVAR Y or FALLOPIAN TUBE or PRIMARY PERITONEUMOVARY OR FALLOPIAN TUBE OR PRIMARY PERITONEUM - All Kcnocatpp8pl Edition - Protocol posted: 03/24/2024SPECIMEN Procedure: Total [...] nodes submitted or found)FIGO STAGE FIGO Stage: [id number] STUDIES p53 Immunohistochemistry: Abnormal (mutated) expression : Overexpression (strong, diffuse nuclear expression) Performed By: #### S ####[facility] [id number] [place] [address] [place] VENOUS BLOOD GASES WITH IONI Clicks2CustomersD MAGNESIUMon 09-08-2024 Base excess Calc (BldV) [Moles/Vol] 1 mmol/L Normal 0-2 [facility] Comment on above: Order Comment: Speci men Type: VENOUS BLOOD SPECIMENOrdering Facility: [facility] Address: [address] [place] [address] Performed By: #### V ALLMG ####[facility] [id number] [place] [address] [place] Calcium.ionized (Bld) [Mass/Vol] 1.10 mmol/L Normal 1.08-1.30 [facility] Comment on above: Order Comment: Speci men Type: VENOUS BLOOD SPECIMENOrdering Facility: [facility] Address: [address] [place] [address] Performed By: #### V ALLMG ####[facility] [id number] [place] [address] [place] Calcium.ionized adjusted to pH 7.4 (BldA) [Moles/Vol] 1.12 mmol/L Normal 1.08-1.30 [facility] Comment on above: Order Comment: Speci men Type: VENOUS BLOOD SPECIMENOrdering Facility: [facility] Address: [address] [place] [address] Performed By: #### V ALLMG ####[facility] [id number] [place] [address] [place] Carboxyhemoglobin (BldV) [Mass fraction] 2.0 % Normal 0.0-2.0 [facility] Comment on above: Order Comment: Speci men Type: VENOUS BLOOD SPECIMENOrdering Facility: [facility] Address: [address] [place] [address] Result Comment: Carb oxyhemoglobin Reference Range for Smokers: 2.0-8.0% Performed By: #### V ALLMG ####[facility] LABCLIA [id number] [place] [address] [place] CO2 (BldV) [Partial pressure] 38 mm[Hg] Low 42-55 [facility] Comment on above: Order Comment: Speci men Type: VENOUS BLOOD SPECIMENOrdering Facility: [facility] Address: [address] [place] [address] Performed By: #### V ALLMG ####[facility] LABCLIA [id number] [place] [address] [place] CO2 adjusted to patient's actual temperature (BldV) [Partial pressure] 38 mmHg Low 42-55 [facility] Comment on above: Order Comment: Speci men Type: VENOUS BLOOD SPECIMENOrdering Facility: [facility] Address: [address] [place] [address] Performed By: #### V ALLMG ####[facility] LABCLIA [id number] [place] [address] [place] Glucose [Mass/Vol] 158 mg/dL High 60-105 [facility] Comment on above: Order Comment: Speci men Type: VENOUS BLOOD SPECIMENOrdering Facility: [facility] Address: [address] [place] [address] Performed By: #### V ALLMG ####[facility] LABCLIA [id number] [place] [address] [place] HCO3 (Bld) [Moles/Vol] 25 mmol/L Normal 24-28 [facility] Comment on above: Order Comment: Speci men Type: VENOUS BLOOD SPECIMENOrdering Facility: [facility] Address: [address] [place] [address] Performed By: #### V ALLMG ####[facility] LABCLIA [id number] [place] [address] [place] Hematocrit (Bld) [Volume fraction] 25.6 % Low 36.0-46.0 [facility] Comment on above: Order Comment: Speci men Type: VENOUS BLOOD SPECIMENOrdering Facility: [facility] Address: [address] [place] [address] Performed By: #### V ALLMG ####[facility] LABIA [id number] [place] [address] [place] Hemoglobin (Bld) [Mass/Vol] 8.2 g/dL Low 11.5-15.5 [facility] Comment on above: Order Comment: Speci men Type: VENOUS BLOOD SPECIMENOrdering Facility: [facility] Address: [address] [place] [address] Performed By: #### V ALLMG ####[facility] LABIA [id number] [place] [address] [place] Lactate [Moles/Vol] 1.8 mmol/L Normal 0.5-2.2 [facility] Comment on above: Order Comment: Speci men Type: VENOUS BLOOD SPECIMENOrdering Facility: [facility] Address: [address] [place] [address] Performed By: #### V ALLMG ####[facility] LABIA [id number] [place] [address] [place] Magnesium [Moles/Vol] 0.45 mmol/L Normal 0.45-0.60 [facility] Comment on above: Order Comment: Speci men Type: VENOUS BLOOD SPECIMENOrdering Facility: [facility] Address: [address] [place] [address] Performed By: #### V ALLMG ####[facility] LABCLIA [id number] [address] [address] [place] Methemoglobin (Bld) [Mass fraction] 0.8 % Normal 0.0-1.5 [facility] Comment on above: Order Comment: Speci men Type: VENOUS BLOOD SPECIMENOrdering Facility: [facility] Address: [address] [place] [address] Performed By: #### V ALLMG ####[facility] LABCLIA [id number] [place] [id number] [place] Oxygen (BldV) [Partial pressure] 75 mm[Hg] High 35-45 [facility] Comment on above: Order Comment: Speci men Type: VENOUS BLOOD SPECIMENOrdering Facility: [facility] Address: [address] [place] [address] Performed By: #### V ALLMG ####[facility] LABCLIA [id number] [place] [address] [place] Oxygen adjusted to patient's actual temperature (BldV) [Partial pressure] 75 mmHg High 35-45 [facility] Comment on above: Order Comment: Speci men Type: VENOUS BLOOD SPECIMENOrdering Facility: [facility] Address: [address] [place] [address] Performed By: #### V ALLMG ####[facility] LABIA [id number] [place] [id number] [place] Oxygen saturation in Venous blood 96 % High 60-85 [facility] Comment on above: Order Comment: Speci men Type: VENOUS BLOOD SPECIMENOrdering Facility: [facility] Address: [address] [place], [place] [id number] Performed By: #### V ALLMG ####[facility] LABCLIA [id number] [address] [address] [place] Oxyhemoglobin (BldV) [Mass fraction] 93 % High 60-85 [facility] Comment on above: Order Comment: Speci men Type: VENOUS BLOOD SPECIMENOrdering Facility: [facility] Address: [address] [place] [address] Performed By: #### V ALLMG ####[facility] LABCLIA [id number] [place] [address] [place] pH (BldV) 7.42 [pH] Normal 7.32-7.42 [facility] Comment on above: Order Comment: Speci men Type: VENOUS BLOOD SPECIMENOrdering Facility: [facility] Address: [address] [place] [address] Performed By: #### V ALLMG ####[facility] LABCLIA [id number] [place] [address] [place] pH adjusted to patient's actual temperature (BldV) 7.42 Normal 7.32-7.42 [facility] Comment on above: Order Comment: Speci men Type: VENOUS BLOOD SPECIMENOrdering Facility: [facility] Address: [address] [place] [address] Performed By: #### V ALLMG ####[facility] LABCLIA [id number] [place] [address] [place] Potassium [Moles/Vol] 3.4 mmol/L Low 3.5-5.0 [facility] Comment on above: Order Comment: Speci men Type: VENOUS BLOOD SPECIMENOrdering Facility: [facility] Address: [address] [place] [address] Performed By: #### V ALLMG ####[facility] LABCLIA [id number] [place] [address] [place] Sodium [Moles/Vol] 134 mmol/L Low 136-144 [facility] Comment on above: Order Comment: Speci men Type: VENOUS BLOOD SPECIMENOrdering Facility: [facility] Address: [address] [place] [address] Performed By: #### V ALLMG ####[facility] LABCLIA [id number] [place] [address] [place] XR ABDOMEN 1V SUPINEon 09-08 XR ABDOMEN 1V SUPINE Normal [facility] CBC W Auto Differential pane l (Bld)on 09-07-2024 Basophils (Bld) [#/Vol] 10*3/uL Normal <0.11 [facility] Comment on above: Order Comment: Speci men Type: BLOOD SPECIMENOrdering Facility: [facility] Address: [address] [place] [address] Performed By: #### 5 7021-8 ####[facility] LABCLIA [id number] [place] [address] [place] Basophils/100 WBC (Bld) 0.4 % Normal [facility] Comment on above: Order Comment: Speci men Type: BLOOD SPECIMENOrdering Facility: [facility] Address: [address] [place] [address] Performed By: #### 5 7021-8 ####[facility] LABCLIA [id number] [place] [address] [place] Differential cell count method Nom (Bld) Auto Normal [facility] Comment on above: Order Comment: Speci men Type: BLOOD SPECIMENOrdering Facility: [facility] Address: [address] [place] [address] Performed By: #### 5 7021-8 ####[facility] LABCLIA [id number] [place] [address] [place] Eosinophils (Bld) [#/Vol] 10*3/uL Normal <0.46 [facility] Comment on above: Order Comment: Speci men Type: BLOOD SPECIMENOrdering Facility: [facility] Address: [address] [place] [address] Performed By: #### 5 7021-8 ####[facility] LABCLIA [id number] [place] [address] [place] Eosinophils/100 WBC (Bld) 0.2 % Normal [facility] Comment on above: Order Comment: Speci men Type: BLOOD SPECIMENOrdering Facility: [facility] Address: [address] [place] [address] Performed By: #### 5 7021-8 ####[facility] LABCLIA [id number] [place] [address] [place] Erythrocyte distribution width (RBC) [Ratio] 14.3 % Normal 11.5-15.0 [facility] Comment on above: Order Comment: Speci men Type: BLOOD SPECIMENOrdering Facility: [facility] Address: [address] [place] [address] Performed By: #### 5 7021-8 ####[facility] LABCLIA [id number] [place] [address] [place] Hematocrit (Bld) [Volume fraction] 35.0 % Low 36.0-46.0 [facility] Comment on above: Order Comment: Speci men Type: BLOOD SPECIMENOrdering Facility: [facility] Address: [address] [place] [address] Performed By: #### 5 7021-8 ####[facility] LABIA [id number] [place] [address] [place] Hemoglobin (Bld) [Mass/Vol] 11.7 g/dL Normal 11.5-15.5 [facility] Comment on above: Order Comment: Speci men Type: BLOOD SPECIMENOrdering Facility: [facility] Address: [address] [place] [address] Performed By: #### 5 7021-8 ####[facility] LABCLIA [id number] [place] [address] [place] Immature granulocytes (Bld) [#/Vol] 10*3/uL Normal <0.10 [facility] Comment on above: Order Comment: Speci men Type: BLOOD SPECIMENOrdering Facility: [facility] Address: [address] [place] [address] Performed By: #### 5 7021-8 ####[facility] LABCLIA [id number] [place] [address] [place] Immature granulocytes/100 WBC (Bld) 0.2 % Normal [facility] Comment on above: Order Comment: Speci men Type: BLOOD SPECIMENOrdering Facility: [facility] Address: [address] [place] [address] Performed By: #### 5 7021-8 ####[facility] LABCLIA [id number] [place] [address] [place] Lymphocytes (Bld) [#/Vol] 0.83 10*3/uL Low 1.00-4.00 [facility] Comment on above: Order Comment: Speci men Type: BLOOD SPECIMENOrdering Facility: [facility] Address: [address] [place] [address] Performed By: #### 5 7021-8 ####[facility] LABCLIA [id number] [place] [address] [place] Lymphocytes/100 WBC (Bld) 17.4 % Normal [facility] Comment on above: Order Comment: Speci men Type: BLOOD SPECIMENOrdering Facility: [facility] Address: [address] [place] [address] Performed By: #### 5 7021-8 ####[facility] LABCLIA [id number] [place] [address] [place] MCH (RBC) [Entitic mass] 32.1 pg Normal 26.0-34.0 [facility] Comment on above: Order Comment: Speci men Type: BLOOD SPECIMENOrdering Facility: [facility] Address: [address] [place] [address] Performed By: #### 5 7021-8 ####[facility] LABCLIA [id number] [place] [address] [place] MCHC (RBC) [Mass/Vol] 33.4 g/dL Normal 30.5-36.0 [facility] Comment on above: Order Comment: Speci men Type: BLOOD SPECIMENOrdering Facility: [facility] Address: [address] [place] [address] Performed By: #### 5 7021-8 ####[facility] LABCLIA [id number] [place] [address] [place] MCV (RBC) [Entitic vol] 96.2 fL Normal 80.0-100.0 [facility] Comment on above: Order Comment: Speci men Type: BLOOD SPECIMENOrdering Facility: [facility] Address: [address] [place] [address] Performed By: #### 5 7021-8 ####[facility] LABCLIA [id number] [place] [address] [place] Monocytes (Bld) [#/Vol] 0.61 10*3/uL Normal <0.87 [facility] Comment on above: Order Comment: Speci men Type: BLOOD SPECIMENOrdering Facility: [facility] Address: [address] [place] [address] Performed By: #### 5 7021-8 ####[facility] LABCLIA [id number] [place] [address] [place] Monocytes/100 WBC (Bld) 12.8 % Normal [facility] Comment on above: Order Comment: Speci men Type: BLOOD SPECIMENOrdering Facility: [facility] Address: [address] [place] [address] Performed By: #### 5 7021-8 ####[facility] LABCLIA [id number] [place] [address] [place] Neutrophils (Bld) [#/Vol] 3.30 10*3/uL Normal 1.45-7.50 [facility] Comment on above: Order Comment: Speci men Type: BLOOD SPECIMENOrdering Facility: [facility] Address: [address] [place] [address] Performed By: #### 5 7021-8 ####[facility] LABCLIA [id number] [place] [address] [place] Neutrophils/100 WBC (Bld) 69.0 % Normal [facility] Comment on above: Order Comment: Speci men Type: BLOOD SPECIMENOrdering Facility: [facility] Address: [address] [place] [address] Performed By: #### 5 7021-8 ####[facility] LABIA [id number] [place] [address] [place] Nucleated RBC (Bld) [#/Vol] 10*3/uL Normal <0.01 [facility] Comment on above: Order Comment: Speci men Type: BLOOD SPECIMENOrdering Facility: [facility] Address: [address] [place] [address] Performed By: #### 5 7021-8 ####[facility] LABIA [id number] [place] [address] [place] Nucleated RBC/100 WBC (Bld) [Ratio] 0.0 /[address] [facility] Comment on above: Order Comment: Speci men Type: BLOOD SPECIMENOrdering Facility: [facility] Address: [address] [place] [address] Performed By: #### 5 7021-8 ####[facility] LABCLIA [id number] [place] [address] [place] Platelet mean volume (Bld) [Entitic vol] 9.0 fL Normal 9.0-12.7 [facility] Comment on above: Order Comment: Speci men Type: BLOOD SPECIMENOrdering Facility: [facility] Address: [address] [place] [address] Performed By: #### 5 7021-8 ####[facility] LABCLIA [id number] [place] [address] [place] Platelets (Bld) [#/Vol] 221 10*3/uL Normal 150-400 [facility] Comment on above: Order Comment: Speci men Type: BLOOD SPECIMENOrdering Facility: [facility] Address: [address] [place] [address] Performed By: #### 5 7021-8 ####[facility] LABIA [id number] [place] [address] [place] RBC (Bld) [#/Vol] 3.64 10*6/uL Low 3.90-5.20 [facility] Comment on above: Order Comment: Speci men Type: BLOOD SPECIMENOrdering Facility: [facility] Address: [address] [place] [address] Performed By: #### 5 7021-8 ####[facility] [id number] [place] [address] [place] WBC (Bld) [#/Vol] 4.78 10*3/uL Normal 3.70-11.00 [facility] Comment on above: Order Comment: Speci men Type: BLOOD SPECIMENOrdering Facility: [facility] Address: [address] [place] [address] Performed By: #### 5 7021-8 ####[facility] [id number] [place] [address] [place] CNOVSPon 09-07-[address] [facility] Cancer Ag125 SerPl-aCncon Cancer Ag 125 Qn 13 [arb'U]/mL Normal <39 [facility] Comment on above: Order Comment: Speci men Type: BLOOD SPECIMENOrdering Facility: [facility] Address: [address] [place] [address] Result Comment: CA 1 25 test methodology [...] (CA 125 II) [package insert V 1.0 Jamaican]. [facility], [place], [place] (July 2015) Performed By: #### 1 0334-1, 11117-3 ####[facility] LABCLIA [id number] [place] [address] [place] Comprehensive metabolic 2000 panelon 09-07-2024 Albumin [Mass/Vol] 4.7 g/dL Normal 3.9-4.9 [facility] Comment on above: Order Comment: Speci men Type: BLOOD SPECIMENOrdering Facility: [facility] Address: [address] [place] [address] Performed By: #### 1 0334-1, 89520-1 ####[facility] LABIA [id number] [place] [address] [place] ALP [Catalytic activity/Vol] 83 U/L Normal 34-123 [facility] Comment on above: Order Comment: Speci men Type: BLOOD SPECIMENOrdering Facility: [facility] Address: [address] [place] [address] Performed By: #### 1 0334-1, 52451-8 ####[facility] LABCLIA [id number] [place] [address] [place] ALT [Catalytic activity/Vol] 15 U/L Normal 7-38 [facility] Comment on above: Order Comment: Speci men Type: BLOOD SPECIMENOrdering Facility: [facility] Address: [address] [place] [address] Performed By: #### 1 0334-1, 10640-9 ####[facility] LABCLIA [id number] [place] [address] [place] Anion gap [Moles/Vol] 16 mmol/L High 8-15 [facility] Comment on above: Order Comment: Speci men Type: BLOOD SPECIMENOrdering Facility: [facility] [facility] Address: [address] [place] [address] Performed By: #### 1 0334-1, 23787-3 ####[facility] LABCLIA [id number] [place] [address] [place] AST [Catalytic activity/Vol] 24 U/L Normal 13-35 [facility] Comment on above: Order Comment: Speci men Type: BLOOD SPECIMENOrdering Facility: [facility] Address: [address] [place] [address] Performed By: #### 1 0334-1, 59490-0 ####[facility] LABCLIA [id number] [place] [address] [place] Bilirubin [Mass/Vol] 0.4 mg/dL Normal 0.2-1.3 [facility] Comment on above: Order Comment: Speci men Type: BLOOD SPECIMENOrdering Facility: [facility] Address: [address] [place] [address] Performed By: #### 1 0334-1, 11789-5 ####[facility] LABCLIA [id number] [place] [address] [place] Calcium [Mass/Vol] 10.0 mg/dL Normal 8.5-10.2 [facility] Comment on above: Order Comment: Speci men Type: BLOOD SPECIMENOrdering Facility: [facility] Address: [address] [place] [address] Performed By: #### 1 0334-1, 96360-9 ####[facility] LABCLIA [id number] [place] [address] [place] Chloride [Moles/Vol] 98 mmol/L Normal 98-107 [facility] Comment on above: Order Comment: Speci men Type: BLOOD SPECIMENOrdering Facility: [facility] Address: [address] [place] [address] Performed By: #### 1 0334-1, 94578-4 ####[facility] LABCLIA [id number] [place] [address] [place] CO2 [Moles/Vol] 25 mmol/L Normal 22-30 [facility] Comment on above: Order Comment: Speci men Type: BLOOD SPECIMENOrdering Facility: [facility] Address: [address] [place] [address] Performed By: #### 1 0334-1, 96970-8 ####[facility] LABIA [id number] [place] [address] [place] Creatinine [Mass/Vol] 1.05 mg/dL High 0.58-0.96 [facility] Comment on above: Order Comment: Speci men Type: BLOOD SPECIMENOrdering Facility: [facility] Address: [address] [place] [address] Performed By: #### 1 0334-1, 72322-8 ####[facility] LABIA [id number] [place] [address] [place] [facility] Creatinine and Glomerular filtration rate.predicted panel (S/P/Bld) 57 mL/min/1.73m??? Low >=60 [facility] Comment on above: Order Comment: Speci men Type: BLOOD SPECIMENOrdering Facility: [facility] Address: [address] [place] [address] Result Comment: Ethel mated Glomerular Filtration Rate [...] reflect actual GFR. Performed By: #### 1 0334-1, 19868-5 ####[facility] LABIA [id number] [place] [address] [place] Glucose [Mass/Vol] 96 mg/dL Normal 74-99 [facility] Comment on above: Order Comment: Speci men Type: BLOOD SPECIMENOrdering Facility: [facility] Address: [address] [place] [address] Result Comment: The [place] Diabetes Association (ADA) provides guidance for cutoff [...] Standards of Medical Care in Diabetes 2016, [place] Diabetes Association. Diabetes Care. 2016.39(Suppl 1). Performed By: #### 1 0334-1, 58979-8 ####[facility] LABIA [id number] [place] [address] [place] Potassium [Moles/Vol] 3.8 mmol/L Normal 3.7-5.1 [facility] Comment on above: Order Comment: Bekai men Type: BLOOD SPECIMENOrdering Facility: [facility] Address: [address] [place], [place] [address] Performed By: #### 1 0334-1, 19287-1 ####[facility] LABIA [id number] [place] [address] [place] Protein [Mass/Vol] 7.2 g/dL Normal 6.3-8.0 [facility] Comment on above: Order Comment: Speci men Type: BLOOD SPECIMENOrdering Facility: [facility] Address: [address] [place] [address] Performed By: #### 1 0334-1, 72319-6 ####[facility] LABIA [id number] [place] [id number] [place] Sodium [Moles/Vol] 139 mmol/L Normal 136-144 [facility] Comment on above: Order Comment: Cheng cooley Type: BLOOD SPECIMENOrdering Facility: [facility] Address: [address] [place] [address] Performed By: #### 1 0334-1, 44686-4 ####[facility] LABCLIA [id number] [place] [address] [place] Urea nitrogen [Mass/Vol] 22 mg/dL High 7-21 [facility] Comment on above: Order Comment: Cheng cooley Type: BLOOD SPECIMENOrdering Facility: [facility] Address: [address] [place] [address] Performed By: #### 1 0334-1, 72331-2 ####[facility] LABCLIA [id number] [place] [address] [place] HISTORY PHYSICALon HISTORY PHYSICAL Normal [facility] PT panel Coag (PPP)on 2023 INR Coag (PPP) [Relative time] 1.0 {INR} Normal 0.9-1.3 [facility] Comment on above: Order Comment: Cheng cooley Type: BLOOD SPECIMENOrdering Facility: [facility] Address: [address] [place] [address] Result Comment: Ene min K Antagonist (VKA) Therapeutic Range: INR 2 to 3 (Target INR of 2.5)Note: For patients treated with VKA drugs, such as warfarin, the [place] [employer] 2012 Guideline recommends [...] al. Chest 2012, 141:7S-47SNishimura RA, et al. [facility] 2017, 70: 252-289 Performed By: #### 1 4979-9, 54077-2 ####[facility] LABCLIA [id number] [place] [id number] [place] PT Coag (PPP) [Time] 10.9 s Normal 9.7-13.0 [facility] Comment on above: Order Comment: Speci men Type: BLOOD SPECIMENOrdering Facility: [facility] Address: [address] [place] [address] Performed By: #### 1 4979-9, 81393-9 ####[facility] LABCLIA [id number] [address] [place] TYPE AND SCREEN,30 [address] A Normal [facility] Comment on above: Order Comment: Speci men Type: BLOOD SPECIMENOrdering Facility: [facility] Address: [address] [place] [address] Performed By: #### T SCR30 ####[facility] BLOOD BANKIA [id number] [place] [address] [place] Rh Nom (Bld) Positive Normal [facility] Comment on above: Order Comment: Speci men Type: BLOOD SPECIMENOrdering Facility: [facility] Address: [address] [place] [address] Performed By: #### T SCR30 ####[facility] BLOOD BANKIA [id number] [place] [address] [place] aPTT PPPon 09-07-2024 aPTT Coag (PPP) [Time] 23.4 s Normal 23.0-32.4 [facility] Comment on above: Order Comment: Speci men Type: BLOOD SPECIMENOrdering Facility: [facility] Address: [address] [place] [address] Performed By: #### 1 4979-9, 30499-7 ####[facility] LABCLIA [id number] [place] [id number] [place] CNPNon 09-03-[address] [facility] CNPNon 09-01-[address] [facility] CT ABD/PEL W IVCONon 024 CT ABD/PEL W IVCON Normal [facility] CT CHEST W IVCONon 4 CT CHEST W IVCON Normal [facility] CNPNon 08-19-2024 CNPN Telephone (GYNML) -- SAL BAUTISTA ([id number]) 1950 F Date Time Provider Department 08/19/24 MATTHEW MORELAND [facility] During your visit today, we recorded the following information about you: Matthew Moreland RN 08/19/2024 4:27 PM Signed IRB#: [id number] Study name: G 3084: A Phase 2, Open-Label, Randomized, Non-Comparative Clinical Trial of ADP-[id number] Monotherapy and in Combination With Nivolumab in [...] 2, Open-Label, Randomized, Non-Comparative Clinical Trial of ADP-[id number] Monotherapy and in Combination With Nivolumab in Subjects With Recurrent Ovarian Cancers PI: Dr. Fredis Buckner Date 08/20/2024 Patient returned call this morning. Informed patient that the G 3084 clinical trial closed enrollment yesterday morning. [...] as needed for pain. - nutritional supplement (JAYLIN FARMS STANDARD 1.4) 0.06 [...] Status:Closed by MATTHEW MORELAND RN on 08/19/24 [facility] [place] Telephone (GYN) -- SAL BAUTISTA ([id number]) 1950 F Date Time Provider Department 07/26/24 MATTHEW MORELAND During your visit today, we recorded the following information about you: Matthew Moreland RN 07/26/2024 1:20 PM Signed IRB#: [id number] Study name: G 3084: A Phase 2, Open-Label, Randomized, Non-Comparative Clinical Trial of ADP-[id number] Monotherapy and in Combination With Nivolumab in [...] available. Patient requesting additional information regarding the G-3084 study. Main study consent sent via [employer]. Encouraged the patient to reach out to research with any questions. Matthew Moreland RN Allergies As of Date: 07/26/2024 (No Known Allergies) Date Reviewed: 07/23/2024 Reviewed by: Jacy Senior RN - Fully Assessed Reason for Visit: Research [293] Cmt: IRB#: [id number]/ [facility] 3084 HLA results Prescriptions as of 07/26/2024 [...] as needed for pain. - nutritional supplement (Plazapoints (Cuponium) STANDARD 1.4) 0.06 G - 1.4 Kcal/mL [...] Status:Closed by MATTHEW MORELAND RN on 07/26/24 [facility] CBC W Auto Differential pane l (Bld)on 07-23-2024 Basophils (Bld) [#/Vol] [facility] Basophils/100 WBC (Bld) 0.2 % [facility] Differential cell count method Nom (Bld) Auto [facility] Eosinophils (Bld) [#/Vol] [facility] Eosinophils/100 WBC (Bld) 0.2 % [facility] Erythrocyte distribution width (RBC) [Ratio] 17.2 % High 11.5 - 15.0 % [facility] Hematocrit (Bld) [Volume fraction] 32.7 % Low 36.0 - 46.0 % [facility] Hemoglobin (Bld) [Mass/Vol] 11.0 g/dL Low 11.5 - 15.5 g/dL [facility] Immature granulocytes (Bld) [#/Vol] 0.04 10*3/uL [facility] Immature granulocytes/100 WBC (Bld) 0.8 % [facility] Interpretation and review of laboratory results Abnormal [facility] Lymphocytes (Bld) [#/Vol] 0.51 10*3/uL Low [facility] Lymphocytes/100 WBC (Bld) 9.7 % [facility] MCH (RBC) [Entitic mass] 30.5 pg 26.0 - 34.0 pg [facility] MCHC (RBC) [Mass/Vol] 33.6 g/dL 30.5 - 36.0 g/dL [facility] MCV (RBC) [Entitic vol] 90.6 fL 80.0 - 100.0 fL [facility] Monocytes (Bld) [#/Vol] 0.08 10*3/uL [facility] Monocytes/100 WBC (Bld) 1.5 % [facility] Neutrophils (Bld) [#/Vol] 4.59 10*3/uL [facility] Neutrophils/100 WBC (Bld) 87.6 % [facility] Nucleated RBC (Bld) [#/Vol] [facility] Nucleated RBC/100 WBC (Bld) [Ratio] 0.0 % /100 WBC [facility] Platelet mean volume (Bld) [Entitic vol] 8.8 fL Low 9.0 - 12.7 fL [facility] Platelets (Bld) [#/Vol] 267 10*3/uL [facility] RBC (Bld) [#/Vol] 3.61 10*6/uL Low 3.90 - 5.2 0 m/uL [facility] WBC (Bld) [#/Vol] 5.24 10*3/uL [facility] Bacteria identified Cx Nom ( U)Ordered By: Nohemi Parra on 05-02-2024 [facility] URINE CULTUREOrdered By: Holly Parra on 05-02-2024 Bacteria identified Cx Nom (U) <10,000 CFU/ml Normal urogenital vladimir [facility] Urinalysis complete panel (U )on 05-01-2024 Bacteria LM.HPF (Urine sed) [#/Area] Negative Negative /HPF [facility] Bilirubin Ql (U) Negative Negative [facility] Clarity (Unsp spec) Cloudy Abnormal Clear [facility] Color (U) Red Abnormal Yellow [facility] Epithelial cells LM.HPF (Urine sed) [#/Area] None Seen /HPF [facility] Glucose Test strip (U) [Mass/Vol] Negative Negative [facility] Hemoglobin Ql (U) 3+ Abnormal Negative [facility] Hyaline casts (Urine sed) [#/Area] 1-3 /LPF Abnormal 0 /LPF [facility] Interpretation and review of laboratory results Abnormal [facility] Ketones Ql (U) Negative Negative [facility] Leukocyte esterase Test strip Ql (U) Trace Abnormal Negative [facility] Nitrite Ql (U) Negative Negative [facility] pH (U) 6.5 [pH] NINF - 8.5 [facility] Protein (U) [Mass/Vol] 1+ Abnormal Negative [facility] RBC LM.HPF (Urine sed) [#/Area] /[HPF] Abnormal 0-2 /HPF [facility] Specific gravity (U) [Rel density] 1.009 1.005 - 1.030 [facility] Urobilinogen Ql (U) 0.2 EU/dL 0.2-1.0 EU/dL [facility] WBC LM.HPF (Urine sed) [#/Area] 0-5 /HPF 0-5 /HPF [facility] Result rechecked Questionable urine chemistry results This test was developed and its performance characteristics determined by [facility]'s Caleb Vazquez [facility] Pathology and [facility] [place] [facility]). It has not been cleared or approved by the FDA. [facility] is regulated under CLIA as qualified to perform high-complexity testing. This test is used for clinical purposes. It should not be regarded as investigational or for research. [facility] CBC W Auto Differential pane l (Bld)on 04-22-2024 Basophils (Bld) [#/Vol] 0.06 10*3/uL [facility] Basophils/100 WBC (Bld) 1.1 % [facility] Differential cell count method Nom (Bld) Auto [facility] Eosinophils (Bld) [#/Vol] 0.04 10*3/uL [facility] Eosinophils/100 WBC (Bld) 0.7 % [facility] Erythrocyte distribution width (RBC) [Ratio] 14.6 % 11.5 - 15.0 % [facility] Hematocrit (Bld) [Volume fraction] 34.4 % Low 36.0 - 46.0 % [facility] Hemoglobin (Bld) [Mass/Vol] 10.9 g/dL Low 11.5 - 15.5 g/dL [facility] Immature granulocytes (Bld) [#/Vol] [facility] Immature granulocytes/100 WBC (Bld) 0.4 % [facility] Interpretation and review of laboratory results Abnormal [facility] Lymphocytes (Bld) [#/Vol] 0.83 10*3/uL Low [facility] Lymphocytes/100 WBC (Bld) 14.9 % [facility] MCH (RBC) [Entitic mass] 27.6 pg 26.0 - 34.0 pg [facility] MCHC (RBC) [Mass/Vol] 31.7 g/dL 30.5 - 36.0 g/dL [facility] MCV (RBC) [Entitic vol] 87.1 fL 80.0 - 100.0 fL [facility] Monocytes (Bld) [#/Vol] 0.58 10*3/uL [facility] Monocytes/100 WBC (Bld) 10.4 % [facility] Neutrophils (Bld) [#/Vol] 4.03 10*3/uL [facility] Neutrophils/100 WBC (Bld) 72.5 % [facility] Nucleated RBC (Bld) [#/Vol] [facility] Nucleated RBC/100 WBC (Bld) [Ratio] 0.0 % /100 WBC [facility] Platelet mean volume (Bld) [Entitic vol] 8.6 fL Low 9.0 - 12.7 fL [facility] Platelets (Bld) [#/Vol] 500 10*3/uL High [facility] RBC (Bld) [#/Vol] 3.95 10*6/uL 3.90 - 5.2 0 m/uL [facility] WBC (Bld) [#/Vol] 5.56 10*3/uL [facility] Comprehensive metabolic 2000 panelOrdered By: Natividad Talbot on 04-22-2024 Albumin [Mass/Vol] 3.9 g/dL 3.9 - 4.9 g/dL [facility] ALP [Catalytic activity/Vol] 123 U/L 34 - 123 U/L [facility] ALT [Catalytic activity/Vol] 17 U/L 7 - 38 U/L [facility] Anion gap [Moles/Vol] 9 mmol/L 8 - 15 mmol/L [facility] AST [Catalytic activity/Vol] 17 U/L 13 - 35 U/L [facility] Bilirubin [Mass/Vol] 0.2 mg/dL 0.2 - 1 .3 mg/dL [facility] Calcium [Mass/Vol] 9.4 mg/dL 8.5 - 10. 2 mg/dL [facility] Chloride [Moles/Vol] 101 mmol/L 98 - 10 7 mmol/L [facility] CO2 [Moles/Vol] 28 mmol/L 22 - 30 mmol/L [facility] Creatinine [Mass/Vol] 0.80 mg/dL 0.58 - 0.96 mg/dL [facility] GFR/1.73 sq M.predicted among non-blacks MDRD (S/P/Bld) [Vol rate/Area] 78 mL/min/{1.73_m2} - PINF [facility] Comment on above: Estimated Glomerular Filtration [...] [Mass/Vol] 94 mg/dL 74 - 99 mg/dL [facility] Comment on above: The [place] Diabete s Association (ADA) provides guidance for [...] Standards of Medical Care in Diabetes 2016, [place] Diabetes Association. Diabetes Care. 2016.39(Suppl 1). Potassium [Moles/Vol] 3.8 mmol/L 3.7 - 5.1 mmol/L [facility] Protein [Mass/Vol] 6.8 g/dL 6.3 - 8.0 g/dL [facility] Sodium [Moles/Vol] 138 mmol/L 136 - 144 mmol/L [facility] Urea nitrogen [Mass/Vol] 13 mg/dL 7 - 21 mg/dL [facility] MAGNESIUMon 04-22-2024 Magnesium [Mass/Vol] 2.2 mg/dL 1.7 - 2 .3 mg/dL [facility] No Panel InformationOrdered By: Naitvidad Talbot on 04-22-2024 Interpretation and review of laboratory results Normal [facility] ECG COMPLETEon 04-02-2024 Atrial Rate 84 BPM [facility] Calculated P [place] 67 degrees [facility] Calculated R [place] 59 degrees [facility] Calculated T [place] 60 degrees [facility] P-R Interval 152 ms [facility] QRS Duration 68 ms [facility] QT Interval 374 ms [facility] QTC Calculation (Bazett) 441 ms [facility] Ventricular Rate [address] [facility] NORMAL SINUS RHYTHM POSSIBLE LEFT ATRIAL ENLARGEMENT BORDERLINE ECG Confirmed by DANITA YEAGER MD ([id number]) on 04/02/2024 4:36:14 PM [facility] NAME : SAL BAUTISTA PID : [id number] : 1950 Gender : Female Race : ORD : [id number] Procedure Date : Apr 02 2024 14:17:03 Edit Date : Apr 02 2024 16:36:20 Diagnosis: NORMAL SINUS RHYTHM POSSIBLE LEFT ATRIAL ENLARGEMENT BORDERLINE ECG Confirmed by DANITA YEAGER MD ([id number]) on 04/02/2024 4:36:14 PM Test Reason : Location : [facility] : [facility] Overread By : DANITA YEAGER MD Edited By : DANITA YEAGER MD Referred By : , Acquired by : [id number], [facility] PREALBUMINon 03-30-2024 Prealbumin [Mass/Vol] 17 mg/dL 17 - 3 6 mg/dL [facility] Prealbumin [Mass/Vol]on 03-07 Interpretation and review of laboratory results Normal [facility] CA 125on 03-16-2024 Cancer Ag 125 Qn 305 [arb'U]/mL High NINF - 39 U/mL [facility] Comment on above: CA 125 test [...] (CA 125 II) [package insert V 1.0 Jamaican]. [facility], [place], [place] (July 2015) CT Chest WO contraston 03-16 IMPRESSION: Few small sub-6 mm indeterminate lung nodules. Continued attention on follow-up is suggested given history of pelvic mass. No thoracic lymph node enlargement. Focal thickening along the right anterior pleura and a cluster of subcentimeter right cardiophrenic lymph nodes. Continued attention on follow-up is suggested. Product Tester: PSCCharley Transcribe Date/Time: Mar 16 2024 8:50A Dictated by : CAROLEE ZHANG MD This examination was interpreted and the report reviewed and electronically signed by: GINNY ENG MD on Mar 16 2024 11:56AM [facility] DIVISION OF RADIOLOGY * * *Final Report* * * DATE OF EXAM: Mar 16 2024 8:30AM [facility] 0541 - CT CHEST WO IVCON / [...] No additional findings. DIVISION OF RADIOLOGY Provider, [facility] - 03/16/2024 * * *Final Report* * * DATE OF EXAM: Mar 16 2024 8:30AM [facility] 0541 - CT CHEST WO IVCON / [...] nodes. Continued attention on follow-up is suggested. Product Tester: GUILLE Transcribe Date/Time: Mar 16 2024 8:50A Dictated by : CAROLEE ZHANG MD This examination was interpreted and the report reviewed and electronically signed by: GINNY ENG MD on Mar 16 2024 11:56AM [facility] Radiology Study observation (narrative) [facility] CT Chest WO contrastOrdered By: Ccf Provider on 03-16-2024 [facility] Comprehensive metabolic 2000 panelon 03-16-2024 Albumin [Mass/Vol] 4.2 g/dL 3.9 - 4.9 g/dL [facility] ALP [Catalytic activity/Vol] 95 U/L 34 - 123 U/L [facility] ALT [Catalytic activity/Vol] 10 U/L 7 - 38 U/L [facility] Anion gap [Moles/Vol] 11 mmol/L 8 - 15 mmol/L [facility] AST [Catalytic activity/Vol] 17 U/L 13 - 35 U/L [facility] Bilirubin [Mass/Vol] mg/dL Low 0.2 - 1 .3 mg/dL [facility] Calcium [Mass/Vol] 9.5 mg/dL 8.5 - 10. 2 mg/dL [facility] Chloride [Moles/Vol] 102 mmol/L 98 - 10 7 mmol/L [facility] CO2 [Moles/Vol] 26 mmol/L 22 - 30 mmol/L [facility] Creatinine [Mass/Vol] 0.85 mg/dL 0.58 - 0.96 mg/dL [facility] GFR/1.73 sq M.predicted among non-blacks MDRD (S/P/Bld) [Vol rate/Area] 73 mL/min/{1.73_m2} - PINF [facility] Comment on above: Estimated Glomerular Filtration [...] [Mass/Vol] 93 mg/dL 74 - 99 mg/dL [facility] Comment on above: The [place] Diabete s Association (ADA) provides guidance for [...] Standards of Medical Care in Diabetes 2016, [place] Diabetes Association. Diabetes Care. 2016.39(Suppl 1). Interpretation and review of laboratory results Abnormal [facility] Potassium [Moles/Vol] 4.2 mmol/L 3.7 - 5.1 mmol/L [facility] Protein [Mass/Vol] 7.2 g/dL 6.3 - 8.0 g/dL [facility] Sodium [Moles/Vol] 139 mmol/L 136 - 144 mmol/L [facility] Urea nitrogen [Mass/Vol] 12 mg/dL 7 - 21 mg/dL [facility] No Panel Informationon 03-16 Interpretation and review of laboratory results Abnormal [facility] PREALBUMINon 03-16-2024 Prealbumin [Mass/Vol] 12 mg/dL Low 17 - 3 6 mg/dL [facility] TYPE AND SCREEN,30 DAYon ABO group Nom (Bld) A [facility] Blood group antibody screen Ql Negative [facility] HIstorical Ab Scr Status Negative [facility] Rh Nom (Bld) Positive [facility] ACTIVATED PARTIAL THROMBOPLA STIN TIMEOrdered By: Aquiles Meehan on 03-15-2024 aPTT Coag (PPP) [Time] 27.3 s [facility] Comment on above: Frozen Plasma Aliquo t CBC W Auto Differential pane l (Bld)on 03-15-2024 Basophils (Bld) [#/Vol] 0.03 10*3/uL [facility] Basophils/100 WBC (Bld) 0.5 % [facility] Differential cell count method Nom (Bld) Auto [facility] Eosinophils (Bld) [#/Vol] 0.04 10*3/uL [facility] Eosinophils/100 WBC (Bld) 0.6 % [facility] Erythrocyte distribution width (RBC) [Ratio] 13.6 % 11.5 - 15.0 % [facility] Hematocrit (Bld) [Volume fraction] 36.0 % 36.0 - 46.0 % [facility] Hemoglobin (Bld) [Mass/Vol] 11.2 g/dL Low 11.5 - 15.5 g/dL [facility] Immature granulocytes (Bld) [#/Vol] 0.03 10*3/uL [facility] Immature granulocytes/100 WBC (Bld) 0.5 % [facility] Interpretation and review of laboratory results Abnormal [facility] Lymphocytes (Bld) [#/Vol] 0.87 10*3/uL Low [facility] Lymphocytes/100 WBC (Bld) 13.8 % [facility] MCH (RBC) [Entitic mass] 27.3 pg 26.0 - 34.0 pg [facility] MCHC (RBC) [Mass/Vol] 31.1 g/dL 30.5 - 36.0 g/dL [facility] MCV (RBC) [Entitic vol] 87.6 fL 80.0 - 100.0 fL [facility] Monocytes (Bld) [#/Vol] 0.45 10*3/uL [facility] [facility] Monocytes/100 WBC (Bld) 7.1 % [facility] Neutrophils (Bld) [#/Vol] 4.90 10*3/uL [facility] Neutrophils/100 WBC (Bld) 77.5 % [facility] Nucleated RBC (Bld) [#/Vol] [facility] Nucleated RBC/100 WBC (Bld) [Ratio] 0.0 % /100 WBC [facility] Platelet mean volume (Bld) [Entitic vol] 10.3 fL 9.0 - 12.7 fL [facility] Platelets (Bld) [#/Vol] 424 10*3/uL High [facility] RBC (Bld) [#/Vol] 4.11 10*6/uL 3.90 - 5.2 0 m/uL [facility] WBC (Bld) [#/Vol] 6.32 10*3/uL [facility] No Panel InformationOrdered By: Aquiles Meehan on 03-15-2024 Interpretation and review of laboratory results Normal [facility] PT panel Coag (PPP)on 2023 INR Coag (PPP) [Relative time] 1.0 {INR} 0.9 - 1.3 [facility] Comment on above: Vitamin K Antagonist (VKA) Therapeutic Range: INR 2 to 3 (Target INR of 2.5) Note: For patients treated with VKA drugs, such as warfarin, the [place] [employer] 2012 Guideline recommends [...] 2.5 to 3.5 (target INR of 3). Guyatt GH, et al. Chest 2012, 141:7S-47S Ibrahima RA, et al. [facility] 2017, 70: 252-289 PT Coag (PPP) [Time] 10.9 s [facility] aPTT Coag (PPP) [Time]Ordere d By: Aquiles [...] laboratory APTT reagent in use throughout the [facility]. 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 Ascites and changes of carcinomatosis also present in the abdomen and pelvis. Product Tester: PSCB Transcribe Date/Time: Mar 10 2024 2:59P Dictated by : ROSEMARIE OLSON MD This examination was interpreted and the report reviewed and electronically signed by: ROSEMARIE OLSON MD on Mar 10 2024 3:34PM [facility] DIVISION OF RADIOLOGY * * *Final Report* * * DATE OF EXAM: Mar 10 2024 2:26PM [facility] 0530 - CT ABD/PEL W IVCON / [...] No additional findings. DIVISION OF RADIOLOGY Provider, [facility] - 03/10/2024 * * *Final Report* * * DATE OF EXAM: Mar 10 2024 2:26PM [facility] 0530 - CT ABD/PEL W IVCON / [...] also present in the abdomen and pelvis. Product Tester: PSCB Transcribe Date/Time: Mar 10 2024 2:59P Dictated by : ROSEMARIE OLSON MD This examination was interpreted and the report reviewed and electronically signed by: ROSEMARIE OLSON MD on Mar 10 2024 3:34PM EST [facility] Radiology Study observation (narrative) [facility] CT Abdomen and Pelvis W cont rast IVOrdered By: [facility] Provider on 03-10-2024 [facility] DXA-AXIAL SKELETONon 06-04-2 022 [facility] Vital Signs Date Time Vital Sign Value Performing Clinician Facility 06-21-2025 09:06-0400 Body temperature 97.3 [degF] Injection Wstr Work Phone: [facility] 06-21-2025 09:06-0400 Diastolic blood pressure 69 mm[Hg] Injection Wstr Work Phone: [facility] 06-21-2025 09:06-0400 Heart rate 87 /min Injection Wstr Work Phone: [facility] 06-21-2025 09:06-0400 SaO2% (BldA) [Mass fraction] 100 % Injection Wstr Work Phone: [facility] 06-21-2025 09:06-0400 Systolic blood pressure 113 mm[Hg] Injection Wstr Work Phone: [facility] 06-20-2025 11:01-0400 Body mass index (BMI) [Ratio] 21.34 kg/m2 Injection Wstr Work Phone: [facility] 06-20-2025 11:01-0400 Body temperature 98.29 [degF] Injection Wstr Work Phone: [facility] 06-20-2025 11:01-0400 Body weight 56.7 kg Injection Wstr Work Phone: [facility] 06-20-2025 11:01-0400 Diastolic blood pressure 72 mm[Hg] Injection Wstr Work Phone: [facility] 06-20-2025 11:01-0400 Systolic blood pressure 119 mm[Hg] Injection Wstr Work Phone: [facility] 06-16-2025 10:00-0400 Diastolic blood pressure 62 mm[Hg] Lab/Port Wstr Work Phone: [facility] 06-16-2025 10:00-0400 Heart rate 59 /min Lab/Port Wstr Work Phone: [facility] 06-16-2025 10:00-0400 Respiratory rate 16 /min Lab/Port Wstr Work Phone: [facility] 06-16-2025 10:00-0400 SaO2% (BldA) [Mass fraction] 100 % Lab/Port Wstr Work Phone: [facility] 06-16-2025 10:00-0400 Systolic blood pressure 115 mm[Hg] Lab/Port Wstr Work Phone: [facility] 06-14-2025 15:29-0400 Body temperature 97.3 [degF] Dr. Romel Michelle MD Work Phone: 7(980)136-240727 [place] [address] 06-14-2025 15:29-0400 Diastolic blood pressure 63 mm[Hg] Dr. Romel Michelle MD Work Phone: 7(225)853-321027 [place] [address] 06-14-2025 15:29-0400 Heart rate 78 /min Dr. Romel Michelle MD Work Phone: 9(416)450-943827 [place] [address] 06-14-2025 15:29-0400 Respiratory rate 16 /min Dr. Romel Michelle MD Work Phone: 6(515)052-903127 [place] [address] 06-14-2025 15:29-0400 SaO2% (BldA) [Mass fraction] 100 % Dr. Romel Michelle MD Work Phone: 9(858)658-268627 [place] [address] 06-14-2025 15:29-0400 Systolic blood pressure 113 mm[Hg] Dr. Romel Michelle MD Work Phone: 0(606)470-496027 [place] [address] 06-14-2025 12:54-0400 Body height 165.[address] Romel Michlele MD Work Phone: 9(352)497-027827 [place] [address] 06-14-2025 12:54-0400 Body mass index (BMI) [Ratio] 20.6 kg/m2 Dr. Romel Michelle MD Work Phone: 9(751)405-473227 [place] [address] 06-14-2025 12:54-0400 Body weight 56.[address] Romel Michelle MD Work Phone: 2(551)456-711227 [place] [address] 06-01-2025 10:04-0400 Body mass index (BMI) [Ratio] 21.26 kg/m2 Nile Hall DO Work Phone: [facility] 06-01-2025 10:04-0400 Body temperature 97.3 [degF] Nile Camarilloi DO Work Phone: [facility] 06-01-2025 10:04-0400 Body weight 56.47 kg Nile Camarilloi DO Work Phone: [facility] 06-01-2025 10:04-0400 Diastolic blood pressure 75 mm[Hg] Nile Camarilloi DO Work Phone: [facility] 06-01-2025 10:04-0400 Heart rate 87 /min Nile Camarilloi DO Work Phone: [facility] 06-01-2025 10:04-0400 SaO2% (BldA) [Mass fraction] 99 % Nile Hall DO Work Phone: [facility] 06-01-2025 10:04-0400 Systolic blood pressure 133 mm[Hg] Nile Camarilloi DO Work Phone: [facility] 04-26-2025 15:09-0400 Body temperature 98.7 [degF] Dr. Romel Michelle MD Work Phone: [facility] 04-26-2025 15:09-0400 Diastolic blood pressure 75 mm[Hg] Dr. Romel Michelle MD Work Phone: [facility] 04-26-2025 15:09-0400 Heart rate 72 /min Dr. Romel Michelle MD Work Phone: [facility] 04-26-2025 15:09-0400 Respiratory rate 16 /min Dr. Romel Michelle MD Work Phone: [facility] 04-26-2025 15:09-0400 SaO2% (BldA) [Mass fraction] 99 % Dr. Romel Michelle MD Work Phone: [facility] 04-26-2025 15:09-0400 Systolic blood pressure 103 mm[Hg] Dr. Romel Michelle MD Work Phone: [facility] 04-26-2025 13:45-0400 Body height 165.[address] Romel Michelle MD Work Phone: [facility] 04-26-2025 13:45-0400 Body mass index (BMI) [Ratio] 20.5 kg/m2 Dr. Romel Michelle MD Work Phone: [facility] 04-26-2025 13:45-0400 Body weight 55.[address] Romel Michelle MD Work Phone: [facility] 04-20-2025 13:11-0400 Body mass index (BMI) [Ratio] 21.57 kg/m2 Linda Nuñez WATER COMMISSIONER.CLAMP OPERATOR Work Phone: [facility] 04-20-2025 13:11-0400 Body temperature 97.81 [degF] Linda Nuñez WATER COMMISSIONER.CLAMP OPERATOR Work Phone: [facility] 04-20-2025 13:11-0400 Body weight 57.3 kg Linda Nuñez WATER COMMISSIONER.CLAMP OPERATOR Work Phone: [facility] 04-20-2025 13:11-0400 Diastolic blood pressure 78 mm[Hg] Linda Nuñez WATER COMMISSIONER.CLAMP OPERATOR Work Phone: [facility] 04-20-2025 13:11-0400 Heart rate 86 /min Linda Nuñez WATER COMMISSIONER.CLAMP OPERATOR Work Phone: [facility] 04-20-2025 13:11-0400 Respiratory rate 12 /min Linda Nuñez WATER COMMISSIONER.CLAMP OPERATOR Work Phone: [facility] 04-20-2025 13:11-0400 SaO2% (BldA) [Mass fraction] 100 % Linda Nuñez WATER COMMISSIONER.CLAMP OPERATOR Work Phone: [facility] 04-20-2025 13:11-0400 Systolic blood pressure 128 mm[Hg] Linda Nuñez WATER COMMISSIONER.CLAMP OPERATOR Work Phone: [facility] 03-21-2025 09:43-0400 Body temperature 98.2 [degF] Treatment Wstr Work Phone: [facility] 03-21-2025 09:43-0400 Diastolic blood pressure 74 mm[Hg] Treatment Wstr Work Phone: [facility] 03-21-2025 09:43-0400 Heart rate 70 /min Treatment Wstr Work Phone: [facility] 03-21-2025 09:43-0400 Respiratory rate 14 /min Treatment Wstr Work Phone: [facility] 03-21-2025 09:43-0400 SaO2% (BldA) [Mass fraction] 100 % Treatment Wstr Work Phone: [facility] 03-21-2025 09:43-0400 Systolic blood pressure 125 mm[Hg] Treatment Wstr Work Phone: [facility] 03-17-2025 08:00-0400 Body temperature 97.9 [degF] Treatment Wstr Work Phone: [facility] 03-17-2025 08:00-0400 Diastolic blood pressure 67 mm[Hg] Treatment Wstr Work Phone: [facility] 03-17-2025 08:00-0400 Heart rate 90 /min Treatment Wstr Work Phone: [facility] 03-17-2025 08:00-0400 Systolic blood pressure 113 mm[Hg] Treatment Wstr Work Phone: [facility] 03-15-2025 09:58-0400 Body temperature 97.3 [degF] Treatment Wstr Work Phone: [facility] 03-15-2025 09:58-0400 Diastolic blood pressure 64 mm[Hg] Treatment Wstr Work Phone: [facility] 03-15-2025 09:58-0400 Heart rate 81 /min Treatment Wstr Work Phone: [facility] 03-15-2025 09:58-0400 SaO2% (BldA) [Mass fraction] 100 % Treatment Wstr Work Phone: [facility] 03-15-2025 09:58-0400 Systolic blood pressure 117 mm[Hg] Treatment Wstr Work Phone: [facility] 03-11-2025 10:00-0400 Body temperature 97.59 [degF] Treatment Wstr Work Phone: [facility] 03-11-2025 10:00-0400 Diastolic blood pressure 54 mm[Hg] Treatment Wstr Work Phone: [facility] 03-11-2025 10:00-0400 Heart rate 70 /min Treatment Wstr Work Phone: [facility] 03-11-2025 10:00-0400 Systolic blood pressure 99 mm[Hg] Treatment Wstr Work Phone: [facility] 03-09-2025 13:01-0400 Body temperature 98.6 [degF] Treatment Wstr Work Phone: [facility] 03-09-2025 13:01-0400 Diastolic blood pressure 67 mm[Hg] Treatment Wstr Work Phone: [facility] 03-09-2025 13:01-0400 Heart rate 68 /min Treatment Wstr Work Phone: [facility] 03-09-2025 13:01-0400 SaO2% (BldA) [Mass fraction] 100 % Treatment Wstr Work Phone: [facility] 03-09-2025 13:01-0400 Systolic blood pressure 127 mm[Hg] Treatment Wstr Work Phone: [facility] 03-02-2025 11:02-0400 Body mass index (BMI) [Ratio] 21.51 kg/m2 Nile Marquisei DO Work Phone: [facility] 03-02-2025 11:02-0400 Body temperature 97.5 [degF] Nile Camarilloi DO Work Phone: [facility] 03-02-2025 11:02-0400 Body weight 57.15 kg Nile Camarilloi DO Work Phone: [facility] 03-02-2025 11:02-0400 Diastolic blood pressure 73 mm[Hg] Nile Camarilloi DO Work Phone: [facility] 03-02-2025 11:02-0400 Heart rate 68 /min Nile Camarilloi DO Work Phone: [facility] 03-02-2025 11:02-0400 SaO2% (BldA) [Mass fraction] 100 % Nile Camarilloi DO Work Phone: [facility] 03-02-2025 11:02-0400 Systolic blood pressure 107 mm[Hg] Nile Camarilloi DO Work Phone: [facility] 02-03-2025 09:40-0400 Body mass index (BMI) [Ratio] 20.96 kg/m2 Linda Nuñez WATER COMMISSIONER.CLAMP OPERATOR Work Phone: [facility] 02-03-2025 09:40-0400 Body temperature 97.7 [degF] Linda Nuñez WATER COMMISSIONER.CLAMP OPERATOR Work Phone: [facility] 02-03-2025 09:40-0400 Body weight 55.7 kg Linda Nuñez WATER COMMISSIONER.CLAMP OPERATOR Work Phone: [facility] 02-03-2025 09:40-0400 Diastolic blood pressure 76 mm[Hg] Linda Nuñez WATER COMMISSIONER.CLAMP OPERATOR Work Phone: [facility] 02-03-2025 09:40-0400 Heart rate 77 /min Linda Nuñez WATER COMMISSIONER.CLAMP OPERATOR Work Phone: [facility] 02-03-2025 09:40-0400 SaO2% (BldA) [Mass fraction] 100 % Linda Nuñez WATER COMMISSIONER.CLAMP OPERATOR Work Phone: [facility] 02-03-2025 09:40-0400 Systolic blood pressure 125 mm[Hg] Linda Nuñez WATER COMMISSIONER.CLAMP OPERATOR Work Phone: [facility] 01-10-2025 13:05-0400 Body temperature 98.1 [degF] Dr. Romel Michelle MD Work Phone: 4(327)256-554927 [place] [address] 01-10-2025 13:05-0400 Diastolic blood pressure 61 mm[Hg] Dr. Romel Michelle MD Work Phone: 2(986)219-321027 [place] [address] 01-10-2025 13:05-0400 Heart rate 67 /min Dr. Romel Michelle MD Work Phone: 6(832)220-172327 [place] [address] 01-10-2025 13:05-0400 Respiratory rate 16 /min Dr. Romel Michelle MD Work Phone: 8(966)229-941927 [place] [address] 01-10-2025 13:05-0400 SaO2% (BldA) [Mass fraction] 98 % Dr. Romel Michelle MD Work Phone: 6(842)094-714027 [place] [address] 01-10-2025 13:05-0400 Systolic blood pressure 100 mm[Hg] Dr. Romel Michelle MD Work Phone: 3(702)921-319827 [place] [address] 01-10-2025 10:06-0400 Body height 165.[address] Romel Michelle MD Work Phone: 9(263)538-797327 [place] [address] 01-10-2025 10:06-0400 Body mass index (BMI) [Ratio] 19.8 kg/m2 Dr. Romel Michelle MD Work Phone: 7(720)585-746027 [place] [address] 01-10-2025 10:06-0400 Body weight [address] Romel Michelle MD Work Phone: 5(682)348-652920 [place] [address] 12-24-2024 13:20-0400 Body height 163 cm Treatment Wstr Work Phone: [facility] 12-24-2024 13:20-0400 Body mass index (BMI) [Ratio] 20.66 kg/m2 Treatment Wstr Work Phone: [facility] 12-24-2024 13:20-0400 Body temperature 98.1 [degF] Treatment Wstr Work Phone: [facility] 12-24-2024 13:20-0400 Body weight 54.88 kg Treatment Wstr Work Phone: [facility] 12-24-2024 13:20-0400 Diastolic blood pressure 72 mm[Hg] Treatment Wstr Work Phone: [facility] 12-24-2024 13:20-0400 Heart rate 75 /min Treatment Wstr Work Phone: [facility] 12-24-2024 13:20-0400 Respiratory rate 16 /min Treatment Wstr Work Phone: [facility] 12-24-2024 13:20-0400 SaO2% (BldA) [Mass fraction] 100 % Treatment Wstr Work Phone: [facility] 12-24-2024 13:20-0400 Systolic blood pressure 118 mm[Hg] Treatment Wstr Work Phone: [facility] 12-21-2024 14:00-0400 Body temperature 98.5 [degF] Dr. Romel Michelle MD Work Phone: [facility] 12-21-2024 14:00-0400 Diastolic blood pressure 52 mm[Hg] Dr. Romel Michelle MD Work Phone: 3(986)076-558920 [place] [address] 12-21-2024 14:00-0400 Heart rate 82 /min Dr. Romel Michelle MD Work Phone: [facility] 12-21-2024 14:00-0400 Respiratory rate 16 /min Dr. Romel Michelle MD Work Phone: [facility] 12-21-2024 14:00-0400 SaO2% (BldA) [Mass fraction] 99 % Dr. Romel Michelle MD Work Phone: [facility] 12-21-2024 14:00-0400 Systolic blood pressure 92 mm[Hg] Dr. Romel Michelle MD Work Phone: 2(483)376-771020 [place] [address] 12-21-2024 11:55-0400 Body temperature 97.8 [degF] Dr. Romel Michelle MD Work Phone: 2(448)798-577920 [place] [address] 12-21-2024 11:55-0400 Diastolic blood pressure 74 mm[Hg] Dr. Romel Michelle MD Work Phone: 0(544)998-521827 [place] [address] 12-21-2024 11:55-0400 Heart rate 64 /min Dr. Romel Michelle MD Work Phone: 2(002)158-997627 [place] [address] 12-21-2024 11:55-0400 Respiratory rate 16 /min Dr. Romel Michelle MD Work Phone: 1(154)685-680827 [place] [address] 12-21-2024 11:55-0400 SaO2% (BldA) [Mass fraction] 99 % Dr. Romel Michelle MD Work Phone: 5(422)428-118827 [place] [address] 12-21-2024 11:55-0400 Systolic blood pressure 120 mm[Hg] Dr. Romel Michelle MD Work Phone: 7(645)732-960527 [place] [address] 12-21-2024 09:33-0400 Body height 165.[address] Romel Michelle MD Work Phone: 7(373)676-575127 [place] [address] 12-21-2024 09:33-0400 Body mass index (BMI) [Ratio] 19.3 kg/m2 Dr. Romel Michelle MD Work Phone: 2(983)358-405127 [place] [address] 12-21-2024 09:33-0400 Body weight 52.[address] Romel Michelle MD Work Phone: 7(748)507-495327 [place] [address] 12-17-2024 08:51-0400 Body mass index (BMI) [Ratio] 20.2 kg/m2 Dr. Romel Michelle MD Work Phone: 0(646)579-825727 [place] [address] 12-17-2024 08:51-0400 Body temperature 97.2 [degF] Dr. Romel Michelle MD Work Phone: 3(322)895-049127 [place] [address] 12-17-2024 08:51-0400 Body weight 55.[address] Romel Michelle MD Work Phone: 8(363)921-982727 [place] [address] 12-17-2024 08:51-0400 Diastolic blood pressure 63 mm[Hg] Dr. Romel Michelle MD Work Phone: [facility] 12-17-2024 08:51-0400 Heart rate 71 /min Dr. Romel Michelle MD Work Phone: [facility] 12-17-2024 08:51-0400 Respiratory rate 18 /min Dr. Romel Michelle MD Work Phone: [facility] 12-17-2024 08:51-0400 SaO2% (BldA) [Mass fraction] 98 % Dr. Romel Michelle MD Work Phone: [facility] 12-17-2024 08:51-0400 Systolic blood pressure 105 mm[Hg] Dr. Romel Michelle MD Work Phone: [facility] 12-03-2024 08:05-0500 Body temperature 97.7 [degF] Treatment Wstr Work Phone: [facility] 12-03-2024 08:05-0500 Diastolic blood pressure 71 mm[Hg] Treatment Wstr Work Phone: [facility] 12-03-2024 08:05-0500 Heart rate 74 /min Treatment Wstr Work Phone: [facility] 12-03-2024 08:05-0500 SaO2% (BldA) [Mass fraction] 99 % Treatment Wstr Work Phone: [facility] 12-03-2024 08:05-0500 Systolic blood pressure 113 mm[Hg] Treatment Wstr Work Phone: [facility] 12-02-2024 08:42-0500 Body mass index (BMI) [Ratio] 19.72 kg/m2 Nile Masci DO Work Phone: [facility] 12-02-2024 08:42-0500 Body temperature 97.2 [degF] Nile Masci DO Work Phone: [facility] 12-02-2024 08:42-0500 Body weight 53.75 kg Nile Masci DO Work Phone: [facility] 12-02-2024 08:42-0500 Diastolic blood pressure 67 mm[Hg] Nile Camarilloi DO Work Phone: [facility] 12-02-2024 08:42-0500 Heart rate 77 /min Nile Camarilloi DO Work Phone: [facility] 12-02-2024 08:42-0500 SaO2% (BldA) [Mass fraction] 99 % Nile Camarilloi DO Work Phone: [facility] 12-02-2024 08:42-0500 Systolic blood pressure 108 mm[Hg] Nile Marquisei DO Work Phone: [facility] 11-12-2024 08:00-0500 Body temperature 97.2 [degF] Treatment Wstr Work Phone: [facility] 11-12-2024 08:00-0500 Diastolic blood pressure 63 mm[Hg] Treatment Wstr Work Phone: [facility] 11-12-2024 08:00-0500 Heart rate 98 /min Treatment Wstr Work Phone: [facility] 11-12-2024 08:00-0500 Systolic blood pressure 107 mm[Hg] Treatment Wstr Work Phone: [facility] 11-11-2024 08:35-0500 Body mass index (BMI) [Ratio] 19.88 kg/m2 Linda Nuñez WATER COMMISSIONER.CLAMP OPERATOR Work Phone: [facility] 11-11-2024 08:35-0500 Body temperature 98.71 [degF] Linda Nuñez WATER COMMISSIONER.CLAMP OPERATOR Work Phone: [facility] 11-11-2024 08:35-0500 Body weight 54.2 kg Linda Nuñez WATER COMMISSIONER.CLAMP OPERATOR Work Phone: [facility] 11-11-2024 08:35-0500 Diastolic blood pressure 72 mm[Hg] Linda Nuñez WATER COMMISSIONER.CLAMP OPERATOR Work Phone: [facility] 11-11-2024 08:35-0500 Heart rate 89 /min Linda Nuñez WATER COMMISSIONER.CLAMP OPERATOR Work Phone: [facility] 11-11-2024 08:35-0500 SaO2% (BldA) [Mass fraction] 100 % Linda Nuñez WATER COMMISSIONER.CLAMP OPERATOR Work Phone: [facility] 11-11-2024 08:35-0500 Systolic blood pressure 113 mm[Hg] Linda Nuñez WATER COMMISSIONER.CLAMP OPERATOR Work Phone: [facility] 10-22-2024 08:18-0500 Body mass index (BMI) [Ratio] 20.22 kg/m2 Treatment Wstr Work Phone: [facility] 10-22-2024 08:18-0500 Body temperature 97.81 [degF] Treatment Wstr Work Phone: [facility] 10-22-2024 08:18-0500 Body weight 55.11 kg Treatment Wstr Work Phone: [facility] 10-22-2024 08:18-0500 Diastolic blood pressure 67 mm[Hg] Treatment Wstr Work Phone: [facility] 10-22-2024 08:18-0500 Heart rate 70 /min Treatment Wstr Work Phone: [facility] 10-22-2024 08:18-0500 SaO2% (BldA) [Mass fraction] 98 % Treatment Wstr Work Phone: [facility] 10-22-2024 08:18-0500 Systolic blood pressure 129 mm[Hg] Treatment Wstr Work Phone: [facility] 10-15-2024 08:31-0500 Body mass index (BMI) [Ratio] 19.72 kg/m2 Nile Masci DO Work Phone: [facility] 10-15-2024 08:31-0500 Body temperature 97.9 [degF] Nile Masci DO Work Phone: [facility] 10-15-2024 08:31-0500 Body weight 53.75 kg Nile Masci DO Work Phone: [facility] 10-15-2024 08:31-0500 Diastolic blood pressure 64 mm[Hg] Nile Masci DO Work Phone: [facility] 10-15-2024 08:31-0500 Heart rate 76 /min Nile Hall DO Work Phone: [facility] 10-15-2024 08:31-0500 SaO2% (BldA) [Mass fraction] 100 % Nile Hall DO Work Phone: [facility] 10-15-2024 08:31-0500 Systolic blood pressure 104 mm[Hg] Nile Hall DO Work Phone: [facility] 10-07-2024 11:32-0500 Body height 165.1 cm Fredis Buckner MD Work Phone: [facility] 10-07-2024 11:32-0500 Body mass index (BMI) [Ratio] 20.1 kg/m2 Fredis Buckner MD Work Phone: [facility] 10-07-2024 11:32-0500 Body temperature 98.6 [degF] Fredis Buckner MD Work Phone: [facility] 10-07-2024 11:32-0500 Body weight 54.8 kg Fredis Buckner MD Work Phone: [facility] 10-07-2024 11:32-0500 Diastolic blood pressure 80 mm[Hg] Fredis Buckner MD Work Phone: [facility] 10-07-2024 11:32-0500 Heart rate 89 /min Fredis Buckner MD Work Phone: [facility] 10-07-2024 11:32-0500 SaO2% (BldA) [Mass fraction] 99 % Fredis Buckner MD Work Phone: [facility] 10-07-2024 11:32-0500 Systolic blood pressure 118 mm[Hg] Fredis Buckner MD Work Phone: [facility] 09-17-2024 11:14-0500 Body mass index (BMI) [Ratio] 20.84 kg/m2 [employer] 4 Work Phone: [facility] 09-17-2024 11:14-0500 Body temperature 98.01 [degF] [employer] Manager 4 Work Phone: [facility] 09-17-2024 11:14-0500 Body weight 56.8 kg [employer] Manager 4 Work Phone: [facility] 09-17-2024 11:14-0500 Diastolic blood pressure 67 mm[Hg] [employer] Beauty [employer] Manager 4 Work Phone: [facility] 09-17-2024 11:14-0500 Heart rate 82 /min [employer] Beauty [employer] Manager 4 Work Phone: [facility] 09-17-2024 11:14-0500 SaO2% (BldA) [Mass fraction] 100 % [employer] Manager 4 Work Phone: [facility] 09-17-2024 11:14-0500 Systolic blood pressure 112 mm[Hg] [employer] Beauty [employer] Manager 4 Work Phone: [facility] 09-07-2024 10:20-0500 Body height 165.1 cm Fredis Buckner MD Work Phone: [facility] 09-07-2024 10:20-0500 Body mass index (BMI) [Ratio] 20.95 kg/m2 Fredis Buckner MD Work Phone: [facility] 09-07-2024 10:20-0500 Body temperature 97.11 [degF] Fredis Buckner MD Work Phone: [facility] 09-07-2024 10:20-0500 Body weight 57.1 kg Fredis Buckner MD Work Phone: [facility] 09-07-2024 10:20-0500 Diastolic blood pressure 69 mm[Hg] Fredis Buckner MD Work Phone: [facility] 09-07-2024 10:20-0500 Heart rate 79 /min Fredis Buckner MD Work Phone: [facility] 09-07-2024 10:20-0500 SaO2% (BldA) [Mass fraction] 100 % Fredis Buckner MD Work Phone: [facility] 09-07-2024 10:20-0500 Systolic blood pressure 112 mm[Hg] Fredis Buckner MD Work Phone: [facility] 09-07-2024 09:17-0500 Body height 165.1 cm Pac 6 Work Phone: [facility] 09-07-2024 09:17-0500 Body mass index (BMI) [Ratio] 20.98 kg/m2 Pac 6 Work Phone: [facility] 09-07-2024 09:17-0500 Body temperature 97.3 [degF] Pac 6 Work Phone: [facility] 09-07-2024 09:17-0500 Body weight 57.2 kg Pac 6 Work Phone: [facility] 09-07-2024 09:17-0500 Diastolic blood pressure 80 mm[Hg] Pac 6 Work Phone: [facility] 09-07-2024 09:17-0500 Heart rate 82 /min Pac 6 Work Phone: [facility] 09-07-2024 09:17-0500 SaO2% (BldA) [Mass fraction] 100 % [facility] 6 Work Phone: [facility] 09-07-2024 09:17-0500 Systolic blood pressure 129 mm[Hg] Pac 6 Work Phone: [facility] 08-12-2024 08:16-0500 Body temperature 97.11 [degF] Treatment Wstr Work Phone: [facility] 08-12-2024 08:16-0500 Diastolic blood pressure 75 mm[Hg] Treatment Wstr Work Phone: [facility] 08-12-2024 08:16-0500 Heart rate 96 /min Treatment Wstr Work Phone: [facility] 08-12-2024 08:16-0500 SaO2% (BldA) [Mass fraction] 100 % Treatment Wstr Work Phone: [facility] 08-12-2024 08:16-0500 Systolic blood pressure 123 mm[Hg] Treatment Wstr Work Phone: [facility] 08-11-2024 09:04-0500 Body mass index (BMI) [Ratio] 20.47 kg/m2 Nile Camarilloi DO Work Phone: [facility] 08-11-2024 09:04-0500 Body temperature 97.5 [degF] Nile Camarilloi DO Work Phone: [facility] 08-11-2024 09:04-0500 Body weight 55.79 kg Nile Camarilloi DO Work Phone: [facility] 08-11-2024 09:04-0500 Diastolic blood pressure 74 mm[Hg] Nile Camarilloi DO Work Phone: [facility] 08-11-2024 09:04-0500 Heart rate 94 /min Nile Camarilloi DO Work Phone: [facility] 08-11-2024 09:04-0500 SaO2% (BldA) [Mass fraction] 100 % Nile Hall DO Work Phone: [facility] 08-11-2024 09:04-0500 Systolic blood pressure 138 mm[Hg] Nile Camarilloi DO Work Phone: [facility] 07-23-2024 09:31-0400 Body temperature 97.9 [degF] Treatment Wstr Work Phone: [facility] 07-23-2024 09:31-0400 Diastolic blood pressure 70 mm[Hg] Treatment Wstr Work Phone: [facility] 07-23-2024 09:31-0400 Heart rate 85 /min Treatment Wstr Work Phone: [facility] 07-23-2024 09:31-0400 SaO2% (BldA) [Mass fraction] 99 % Treatment Wstr Work Phone: [facility] 07-23-2024 09:31-0400 Systolic blood pressure 118 mm[Hg] Treatment Wstr Work Phone: [facility] 07-21-2024 10:21-0400 Body mass index (BMI) [Ratio] 20.05 kg/m2 Nile Camarilloi DO Work Phone: [facility] 07-21-2024 10:21-0400 Body temperature 97.59 [degF] Nile Camarilloi DO Work Phone: [facility] 07-21-2024 10:21-0400 Body weight 54.66 kg Nile Camarilloi DO Work Phone: [facility] 07-21-2024 10:21-0400 Diastolic blood pressure 71 mm[Hg] Nile Camarilloi DO Work Phone: [facility] 07-21-2024 10:21-0400 Heart rate 72 /min Nile Camarilloi DO Work Phone: [facility] 07-21-2024 10:21-0400 SaO2% (BldA) [Mass fraction] 100 % Nile Camarilloi DO Work Phone: [facility] 07-21-2024 10:21-0400 Systolic blood pressure 116 mm[Hg] Nile Camarilloi DO Work Phone: [facility] 07-16-2024 15:17-0400 Body height 165.1 cm Fredis Buckner MD Work Phone: [facility] 07-16-2024 15:17-0400 Body mass index (BMI) [Ratio] 19.92 kg/m2 Fredis Buckner MD Work Phone: [facility] 07-16-2024 15:17-0400 Body temperature 97.7 [degF] Fredis Buckner MD Work Phone: [facility] 07-16-2024 15:17-0400 Body weight 54.3 kg Fredis Buckner MD Work Phone: [facility] 07-16-2024 15:17-0400 Diastolic blood pressure 68 mm[Hg] Fredis Buckner MD Work Phone: [facility] 07-16-2024 15:17-0400 Heart rate 64 /min Fredis Buckner MD Work Phone: [facility] 07-16-2024 15:17-0400 SaO2% (BldA) [Mass fraction] 100 % Fredis Buckner MD Work Phone: [facility] 07-16-2024 15:17-0400 Systolic blood pressure 116 mm[Hg] Fredis Buckner MD Work Phone: [facility] 07-01-2024 08:20-0400 Body temperature 97.39 [degF] Treatment Wstr Work Phone: [facility] 07-01-2024 08:20-0400 Diastolic blood pressure 74 mm[Hg] Treatment Wstr Work Phone: [facility] 07-01-2024 08:20-0400 Heart rate 84 /min Treatment Wstr Work Phone: [facility] 07-01-2024 08:20-0400 SaO2% (BldA) [Mass fraction] 99 % Treatment Wstr Work Phone: [facility] 07-01-2024 08:20-0400 Systolic blood pressure 122 mm[Hg] Treatment Wstr Work Phone: [facility] 06-30-2024 09:58-0400 Body mass index (BMI) [Ratio] 19.27 kg/m2 Nile Masci DO Work Phone: [facility] 06-30-2024 09:58-0400 Body temperature 97.9 [degF] Nile Masci DO Work Phone: [facility] 06-30-2024 09:58-0400 Body weight 53.75 kg Nile Masci DO Work Phone: [facility] 06-30-2024 09:58-0400 Diastolic blood pressure 69 mm[Hg] Nile Masci DO Work Phone: [facility] 06-30-2024 09:58-0400 Heart rate 75 /min Nile Masci DO Work Phone: [facility] 06-30-2024 09:58-0400 SaO2% (BldA) [Mass fraction] 100 % Nile Masci DO Work Phone: [facility] 06-30-2024 09:58-0400 Systolic blood pressure 112 mm[Hg] Nile Rafael DO Work Phone: [facility] 06-11-2024 09:03-0400 Body temperature 97.11 [degF] Treatment Wstr Work Phone: [facility] 06-11-2024 09:03-0400 Diastolic blood pressure 77 mm[Hg] Treatment Wstr Work Phone: [facility] 06-11-2024 09:03-0400 Heart rate 91 /min Treatment Wstr Work Phone: [facility] 06-11-2024 09:03-0400 SaO2% (BldA) [Mass fraction] 99 % Treatment Wstr Work Phone: [facility] 06-11-2024 09:03-0400 Systolic blood pressure 115 mm[Hg] Treatment Wstr Work Phone: [facility] 06-10-2024 10:07-0400 Body temperature 97.7 [degF] Avril Most RN Work Phone: [facility] 06-10-2024 10:07-0400 Diastolic blood pressure 76 mm[Hg] Avril Most RN Work Phone: [facility] 06-10-2024 10:07-0400 Heart rate 72 /min Avril Most RN Work Phone: [facility] 06-10-2024 10:07-0400 Respiratory rate 16 /min Avril Most RN Work Phone: [facility] 06-10-2024 10:07-0400 SaO2% (BldA) [Mass fraction] 99 % Avril Most RN Work Phone: [facility] 06-10-2024 10:07-0400 Systolic blood pressure 120 mm[Hg] Avril Most RN Work Phone: [facility] 06-08-2024 13:14-0400 Body mass index (BMI) [Ratio] 18.72 kg/m2 Linda Nuñez APRN.CNP Work Phone: [facility] 06-08-2024 13:14-0400 Body temperature 97.11 [degF] Linda Cageenter WATER COMMISSIONER.CLAMP OPERATOR Work Phone: [facility] 06-08-2024 13:14-0400 Body weight 52.2 kg Linda Cageenter WATER COMMISSIONER.CLAMP OPERATOR Work Phone: [facility] 06-08-2024 13:14-0400 Diastolic blood pressure 82 mm[Hg] Linda Nuñez WATER COMMISSIONER.CLAMP OPERATOR Work Phone: [facility] 06-08-2024 13:14-0400 Heart rate 64 /min Linda Cageenter WATER COMMISSIONER.CLAMP OPERATOR Work Phone: [facility] 06-08-2024 13:14-0400 SaO2% (BldA) [Mass fraction] 100 % Linda Cageenter WATER COMMISSIONER.CLAMP OPERATOR Work Phone: [facility] 06-08-2024 13:14-0400 Systolic blood pressure 126 mm[Hg] Linda Cageenter WATER COMMISSIONER.CLAMP OPERATOR Work Phone: [facility] 05-31-2024 10:15-0400 Body temperature 98.01 [degF] Avril Most RN Work Phone: [facility] 05-31-2024 10:15-0400 Diastolic blood pressure 78 mm[Hg] Avril Most RN Work Phone: [facility] 05-31-2024 10:15-0400 Heart rate 76 /min Avril Most RN Work Phone: [facility] 05-31-2024 10:15-0400 Respiratory rate 16 /min Avril Most RN Work Phone: [facility] 05-31-2024 10:15-0400 SaO2% (BldA) [Mass fraction] 99 % Avril Most RN Work Phone: [facility] 05-31-2024 10:15-0400 Systolic blood pressure 124 mm[Hg] Avril Most RN Work Phone: [facility] 05-24-2024 10:32-0400 Body temperature 98.2 [degF] Avril Most RN Work Phone: [facility] 05-24-2024 10:32-0400 Diastolic blood pressure 66 mm[Hg] Avril Graham RN Work Phone: [facility] 05-24-2024 10:32-0400 Heart rate 84 /min Avrilenrique Graham RN Work Phone: [facility] 05-24-2024 10:32-0400 Respiratory rate 16 /min Avrilenrique Graham RN Work Phone: [facility] 05-24-2024 10:32-0400 SaO2% (BldA) [Mass fraction] 98 % Avrilenrique Graham RN Work Phone: [facility] 05-24-2024 10:32-0400 Systolic blood pressure 108 mm[Hg] Avrilenrique Graham RN Work Phone: [facility] 05-19-2024 08:03-0400 Body temperature 97.5 [degF] Treatment Wstr Work Phone: [facility] 05-19-2024 08:03-0400 Diastolic blood pressure 81 mm[Hg] Treatment Wstr Work Phone: [facility] 05-19-2024 08:03-0400 Heart rate 82 /min Treatment Wstr Work Phone: [facility] 05-19-2024 08:03-0400 Respiratory rate 16 /min Treatment Wstr Work Phone: [facility] 05-19-2024 08:03-0400 Systolic blood pressure 133 mm[Hg] Treatment Wstr Work Phone: [facility] 05-18-2024 11:35-0400 Body mass index (BMI) [Ratio] 17.89 kg/m2 Nile Hall DO Work Phone: [facility] 05-18-2024 11:35-0400 Body temperature 98.4 [degF] Nile Hall DO Work Phone: [facility] 05-18-2024 11:35-0400 Body weight 49.9 kg Nile Masci DO Work Phone: [facility] 05-18-2024 11:35-0400 Diastolic blood pressure 68 mm[Hg] Nile Camarilloi DO Work Phone: [facility] 05-18-2024 11:35-0400 Heart rate 73 /min Nile Camarilloi DO Work Phone: [facility] 05-18-2024 11:35-0400 SaO2% (BldA) [Mass fraction] 100 % Nile Camarilloi DO Work Phone: [facility] 05-18-2024 11:35-0400 Systolic blood pressure 121 mm[Hg] Nile Camarilloi DO Work Phone: [facility] 05-17-2024 09:54-0400 Body temperature 98.29 [degF] Avril Most RN Work Phone: [facility] 05-17-2024 09:54-0400 Diastolic blood pressure 68 mm[Hg] Avril Most RN Work Phone: [facility] 05-17-2024 09:54-0400 Heart rate 72 /min Avril Most RN Work Phone: [facility] 05-17-2024 09:54-0400 Respiratory rate 16 /min Avril Most RN Work Phone: [facility] 05-17-2024 09:54-0400 SaO2% (BldA) [Mass fraction] 99 % Avril Most RN Work Phone: [facility] 05-17-2024 09:54-0400 Systolic blood pressure 118 mm[Hg] Avril Most RN Work Phone: [facility] 05-13-2024 10:15-0400 Body temperature 98.01 [degF] Avril Most RN Work Phone: [facility] 05-13-2024 10:15-0400 Diastolic blood pressure 64 mm[Hg] Avril Most RN Work Phone: [facility] 05-13-2024 10:15-0400 Heart rate 72 /min Avril Most RN Work Phone: [facility] 05-13-2024 10:15-0400 Respiratory rate 16 /min Avril Most RN Work Phone: [facility] 05-13-2024 10:15-0400 SaO2% (BldA) [Mass fraction] 99 % Avril Most RN Work Phone: [facility] 05-13-2024 10:15-0400 Systolic blood pressure 118 mm[Hg] Avril Most RN Work Phone: [facility] 05-10-2024 09:48-0400 Body temperature 97.59 [degF] Avril Most RN Work Phone: [facility] 05-10-2024 09:48-0400 Diastolic blood pressure 66 mm[Hg] Avril Most RN Work Phone: [facility] 05-10-2024 09:48-0400 Heart rate 76 /min Avril Most RN Work Phone: [facility] 05-10-2024 09:48-0400 Respiratory rate 16 /min Avril Most RN Work Phone: [facility] 05-10-2024 09:48-0400 SaO2% (BldA) [Mass fraction] 98 % Avril Most RN Work Phone: [facility] 05-10-2024 09:48-0400 Systolic blood pressure 120 mm[Hg] Avril Most RN Work Phone: [facility] 05-06-2024 10:21-0400 Body temperature 98.6 [degF] Avril Most RN Work Phone: [facility] 05-06-2024 10:21-0400 Diastolic blood pressure 74 mm[Hg] Avril Most RN Work Phone: [facility] 05-06-2024 10:21-0400 Heart rate 76 /min Avril Most RN Work Phone: [facility] 05-06-2024 10:21-0400 Respiratory rate 16 /min Avril Most RN Work Phone: [facility] 05-06-2024 10:21-0400 SaO2% (BldA) [Mass fraction] 99 % Avril Most RN Work Phone: [facility] 05-06-2024 10:21-0400 Systolic blood pressure 120 mm[Hg] Avril Most RN Work Phone: [facility] 05-03-2024 09:56-0400 Body temperature 97.9 [degF] Avril Most RN Work Phone: [facility] 05-03-2024 09:56-0400 Diastolic blood pressure 66 mm[Hg] Avril Most RN Work Phone: [facility] 05-03-2024 09:56-0400 Heart rate 80 /min Avril Most RN Work Phone: [facility] 05-03-2024 09:56-0400 Respiratory rate 16 /min Avril Most RN Work Phone: [facility] 05-03-2024 09:56-0400 SaO2% (BldA) [Mass fraction] 99 % Avril Most RN Work Phone: [facility] 05-03-2024 09:56-0400 Systolic blood pressure 108 mm[Hg] Avril Most RN Work Phone: [facility] 04-29-2024 10:11-0400 Body temperature 98.1 [degF] Avril Most RN Work Phone: [facility] 04-29-2024 10:11-0400 Diastolic blood pressure 64 mm[Hg] Avril Most RN Work Phone: [facility] 04-29-2024 10:11-0400 Heart rate 72 /min Avril Most RN Work Phone: [facility] 04-29-2024 10:11-0400 Respiratory rate 16 /min Avril Most RN Work Phone: [facility] 04-29-2024 10:11-0400 SaO2% (BldA) [Mass fraction] 99 % Avril Graham RN Work Phone: [facility] 04-29-2024 10:11-0400 Systolic blood pressure 108 mm[Hg] Avril Graham RN Work Phone: [facility] 04-28-2024 07:51-0400 Body height 167 cm Treatment Wstr Work Phone: [facility] 04-28-2024 07:51-0400 Body mass index (BMI) [Ratio] 19.6 kg/m2 Treatment Wstr Work Phone: [facility] 04-28-2024 07:51-0400 Body temperature 97.2 [degF] Treatment Wstr Work Phone: [facility] 04-28-2024 07:51-0400 Body weight 54.66 kg Treatment Wstr Work Phone: [facility] 04-28-2024 07:51-0400 Diastolic blood pressure 66 mm[Hg] Treatment Wstr Work Phone: [facility] 04-28-2024 07:51-0400 Heart rate 94 /min Treatment Wstr Work Phone: [facility] 04-28-2024 07:51-0400 SaO2% (BldA) [Mass fraction] 100 % Treatment Wstr Work Phone: [facility] 04-28-2024 07:51-0400 Systolic blood pressure 118 mm[Hg] Treatment Wstr Work Phone: [facility] 04-26-2024 13:30-0400 Body temperature 98.29 [degF] Avril Graham RN Work Phone: [facility] 04-26-2024 13:30-0400 Diastolic blood pressure 70 mm[Hg] Avril Graham RN Work Phone: [facility] 04-26-2024 13:30-0400 Heart rate 76 /min Avril Graham RN Work Phone: [facility] 07-22-2024 13:30-0400 Respiratory rate 16 /min Avril Graham RN Work Phone: [facility] 04-26-2024 13:30-0400 SaO2% (BldA) [Mass fraction] 99 % Avril Graham RN Work Phone: [facility] 04-26-2024 13:30-0400 Systolic blood pressure 108 mm[Hg] Avril Graham RN Work Phone: [facility] 04-22-2024 11:26-0400 Body temperature 98.49 [degF] Mariajose Carpenter RN Work Phone: [facility] 04-22-2024 11:26-0400 Diastolic blood pressure 58 mm[Hg] Mariajose Carpenter RN Work Phone: [facility] 04-22-2024 11:26-0400 Heart rate 85 /min Mariajose Carpenter RN Work Phone: [facility] 04-22-2024 11:26-0400 Respiratory rate 18 /min Mariajose Carpenter RN Work Phone: [facility] 04-22-2024 11:26-0400 SaO2% (BldA) [Mass fraction] 98 % Mariajose Carpenter RN Work Phone: [facility] 04-22-2024 11:26-0400 Systolic blood pressure 112 mm[Hg] Mariajose Carpenter RN Work Phone: [facility] 04-22-2024 09:27-0400 Body height 166.4 cm Nile Marquisei DO Work Phone: [facility] 04-22-2024 09:27-0400 Body mass index (BMI) [Ratio] 19.99 kg/m2 Nile Camarilloi DO Work Phone: [facility] 04-22-2024 09:27-0400 Body temperature 97.9 [degF] Nile Camarilloi DO Work Phone: [facility] 04-22-2024 09:27-0400 Body weight 55.34 kg Nile Camarilloi DO Work Phone: [facility] 04-22-2024 09:27-0400 Diastolic blood pressure 68 mm[Hg] Nile Camarilloi DO Work Phone: [facility] 04-22-2024 09:27-0400 Heart rate 75 /min Nile Marquisei DO Work Phone: [facility] 04-22-2024 09:27-0400 SaO2% (BldA) [Mass fraction] 99 % Nile Camarilloi DO Work Phone: [facility] 04-22-2024 09:27-0400 Systolic blood pressure 103 mm[Hg] Nile Camarilloi DO Work Phone: [facility] 04-19-2024 15:01-0400 Body temperature 98.1 [degF] Avrilenrique Graham RN Work Phone: [facility] 04-19-2024 15:01-0400 Diastolic blood pressure 64 mm[Hg] Avrilenrique Graham RN Work Phone: [facility] 04-19-2024 15:01-0400 Heart rate 80 /min Avril Graham RN Work Phone: [facility] 04-19-2024 15:01-0400 Respiratory rate 16 /min Avrilenrique Graham RN Work Phone: [facility] 04-19-2024 15:01-0400 SaO2% (BldA) [Mass fraction] 99 % Avrilenrique Graham RN Work Phone: [facility] 04-19-2024 15:01-0400 Systolic blood pressure 108 mm[Hg] Avril Graham RN Work Phone: [facility] 04-19-2024 11:39-0400 Body mass index (BMI) [Ratio] 20.47 kg/m2 Fredis Buckner MD Work Phone: [facility] 04-19-2024 11:39-0400 Body temperature 97.5 [degF] Fredis Buckner MD Work Phone: [facility] 04-19-2024 11:39-0400 Body weight 55.79 kg Fredis Buckner MD Work Phone: [facility] 04-19-2024 11:39-0400 Diastolic blood pressure 67 mm[Hg] Fredis Buckner MD Work Phone: [facility] 04-19-2024 11:39-0400 Heart rate 75 /min Fredis Buckner MD Work Phone: [facility] 04-19-2024 11:39-0400 SaO2% (BldA) [Mass fraction] 100 % Fredis Buckner MD Work Phone: [facility] 04-19-2024 11:39-0400 Systolic blood pressure 107 mm[Hg] Fredis Buckner MD Work Phone: [facility] 04-15-2024 11:23-0400 Body height 165.1 cm Avrilenrique Graham RN Work Phone: [facility] 04-15-2024 11:23-0400 Body mass index (BMI) [Ratio] 20.77 kg/m2 Avrilenrique Graham RN Work Phone: [facility] 04-15-2024 11:23-0400 Body temperature 97.7 [degF] Avril RN Work Phone: [facility] 04-15-2024 11:23-0400 Body weight 56.61 kg Avrilenrique Graham RN Work Phone: [facility] 04-15-2024 11:23-0400 Diastolic blood pressure 62 mm[Hg] Avriljody Graham RN Work Phone: [facility] 04-15-2024 11:23-0400 Heart rate 80 /min Avril Most RN Work Phone: [facility] 04-15-2024 11:23-0400 Respiratory rate 16 /min Avril Most RN Work Phone: [facility] 04-15-2024 11:23-0400 SaO2% (BldA) [Mass fraction] 99 % Avrilenrique Graham RN Work Phone: [facility] 04-15-2024 11:23-0400 Systolic blood pressure 106 mm[Hg] Avrilenrique Graham RN Work Phone: [facility] 04-02-2024 14:59-0400 Body height 165.1 cm Pacc 2 Work Phone: [facility] 04-02-2024 14:59-0400 Body mass index (BMI) [Ratio] 20.58 kg/m2 Pacc 2 Work Phone: [facility] 04-02-2024 14:59-0400 Body temperature 97.81 [degF] Pacc 2 Work Phone: [facility] 04-02-2024 14:59-0400 Body weight 56.1 kg Pacc 2 Work Phone: [facility] 04-02-2024 14:59-0400 Diastolic blood pressure 74 mm[Hg] Pacc 2 Work Phone: [facility] 04-02-2024 14:59-0400 Heart rate 91 /min Pacc 2 Work Phone: [facility] 04-02-2024 14:59-0400 Respiratory rate 12 /min Pacc 2 Work Phone: [facility] 04-02-2024 14:59-0400 SaO2% (BldA) [Mass fraction] 100 % Pacc 2 Work Phone: [facility] 04-02-2024 14:59-0400 Systolic blood pressure 129 mm[Hg] Pacc 2 Work Phone: [facility] 03-29-2024 15:44-0400 Body mass index (BMI) [Ratio] 20.47 kg/m2 Fredis Buckner MD Work Phone: [facility] 03-29-2024 15:44-0400 Body temperature 98.1 [degF] Fredis Buckner MD Work Phone: [facility] 03-29-2024 15:44-0400 Body weight 55.79 kg Fredis Buckner MD Work Phone: [facility] 03-29-2024 15:44-0400 Diastolic blood pressure 79 mm[Hg] Fredis Buckner MD Work Phone: [facility] 03-29-2024 15:44-0400 Heart rate 80 /min Fredis Buckner MD Work Phone: [facility] 03-29-2024 15:44-0400 Respiratory rate 15 /min Fredis Buckner MD Work Phone: [facility] 03-29-2024 15:44-0400 SaO2% (BldA) [Mass fraction] 100 % Fredis Buckner MD Work Phone: [facility] 03-29-2024 15:44-0400 Systolic blood pressure 127 mm[Hg] Fredis Buckner MD Work Phone: [facility] 03-15-2024 14:07-0400 Body height 165.3 cm Fredis Buckner MD Work Phone: [facility] 03-15-2024 14:07-0400 Body mass index (BMI) [Ratio] 20.58 kg/m2 Fredis Buckner MD Work Phone: [facility] 03-15-2024 14:07-0400 Body temperature 97.81 [degF] Fredis Buckner MD Work Phone: [facility] 03-15-2024 14:07-0400 Body weight 56.25 kg Fredis Buckner MD Work Phone: [facility] 03-15-2024 14:07-0400 Diastolic blood pressure 80 mm[Hg] Fredis Buckner MD Work Phone: [facility] 03-15-2024 14:07-0400 Heart rate 74 /min Fredis Buckner MD Work Phone: [facility] 03-15-2024 14:07-0400 SaO2% (BldA) [Mass fraction] 100 % Fredis Buckner MD Work Phone: [facility] 03-15-2024 14:07-0400 Systolic blood pressure 134 mm[Hg] Fredis Buckner MD Work Phone: [facility] 02-24-2024 19:03-0400 Body mass index (BMI) [Ratio] 20.76 kg/m2 Romel Michelle MD Work Phone: [facility] 02-24-2024 19:03-0400 Body temperature 98.4 [degF] Romel Michelle MD Work Phone: [facility] 02-24-2024 19:03-0400 Body weight 56.7 kg Romel Michelle MD Work Phone: [facility] 02-24-2024 19:03-0400 Diastolic blood pressure 76 mm[Hg] Romel Michelle MD Work Phone: [facility] 02-24-2024 19:03-0400 Heart rate 80 /min Romel Michelle MD Work Phone: [facility] 02-24-2024 19:03-0400 Respiratory rate 18 /min Romel Michelle MD Work Phone: [facility] 02-24-2024 19:03-0400 SaO2% (BldA) [Mass fraction] 100 % Romel Michelle MD Work Phone: [facility] 02-24-2024 19:03-0400 Systolic blood pressure 124 mm[Hg] Romel Michelle MD Work Phone: [facility] 10-31-2022 08:16-0500 Body temperature 97.39 [degF] Nuria Adilia WATER COMMISSIONER.CLAMP OPERATOR Work Phone: [facility] 10-31-2022 08:16-0500 Body weight 60.96 kg Nuria Adilia WATER COMMISSIONER.CLAMP OPERATOR Work Phone: [facility] 10-31-2022 08:16-0500 Diastolic blood pressure 82 mm[Hg] Nuria Adilia WATER COMMISSIONER.CLAMP OPERATOR Work Phone: [facility] 10-31-2022 08:16-0500 Heart rate 95 /min Nuria Adilia WATER COMMISSIONER.CLAMP OPERATOR Work Phone: [facility] 10-31-2022 08:16-0500 Respiratory rate 21 /min Nuria Adilia WATER COMMISSIONER.CLAMP OPERATOR Work Phone: [facility] 10-31-2022 08:16-0500 SaO2% (BldA) [Mass fraction] 100 % Nuria Pat WATER COMMISSIONER.CLAMP OPERATOR Work Phone: [facility] 10-31-2022 08:16-0500 Systolic blood pressure 138 mm[Hg] Nuria Pat APRN.CLAMP OPERATOR Work Phone: [facility] 06-28-2022 08:44-0400 Body height 167 cm Romel Michelle MD Work Phone: [facility] 06-28-2022 08:44-0400 Body temperature 97.5 [degF] Romel Michelle MD Work Phone: [facility] 06-28-2022 08:44-0400 Body weight 59.6 kg Romel Michelle MD Work Phone: [facility] 06-28-2022 08:44-0400 Diastolic blood pressure 76 mm[Hg] Romel Michelle MD Work Phone: [facility] 06-28-2022 08:44-0400 Heart rate 64 /min Romel Michelle MD Work Phone: [facility] 06-28-2022 08:44-0400 Respiratory rate 16 /min Romel Michelle MD Work Phone: [facility] 06-28-2022 08:44-0400 SaO2% (BldA) [Mass fraction] 100 % Romel Michelle MD Work Phone: [facility] 06-28-2022 08:44-0400 Systolic blood pressure 128 mm[Hg] Romel Michelle MD Work Phone: [facility] Encounters Encounter Date Encounter Type Care Provider Facility Start: 08-15-2025 End: 08-15-2025 ambulatory ROMEL MICHELLE Facility:[facility] Start: 08-12-2025 End: 08-12-2025 ambulatory ROMEL Yumiko MICHELLE Facility:[facility] Start: 07-25-2025 End: 07-25-2025 ambulatory ROMEL D TALAMPAS Facility:[facility] Start: 07-21-2025 End: 07-21-2025 ambulatory ROMEL D TALAMPAS Facility:[facility] Start: 07-20-2025 End: 07-20-2025 ambulatory ROMEL D TALAMPAS Facility:[facility] Start: 07-15-2025 End: 07-15-2025 ambulatory ROMEL D TALAMPAS Facility:[facility] Start: 07-15-2025 End: 07-15-2025 ambulatory ROMEL D TALAMPAS Facility:[facility] Start: 07-13-2025 End: 07-13-2025 ambulatory ROMEL D TALAMPAS Facility:[facility] Start: 07-07-2025 End: 07-08-2025 ambulatory ROMEL D TALAMPAS Facility:[facility] Start: 07-01-2025 End: 07-01-2025 ambulatory ROMEL D TALAMPAS Facility:[facility] Start: 06-30-2025 End: 06-30-2025 ambulatory ROMEL D TALAMPAS Facility:[facility] Start: 06-23-2025 End: 06-23-2025 ambulatory ROMEL D TALAMPAS Facility:[facility] Start: 06-21-2025 End: 06-21-2025 ambulatory Injection Kan [facility] Work Phone: Hematology/Oncology Comment on above: Megaloblastic anemia due to vitamin B12 deficiency (Primary Dx) Start: 06-21-2025 End: 06-21-2025 Subsequent hospital visit by physician Marta [facility] (I-Stat) Work Phone: Cat Scan Comment on above: 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.9] Start: 06-20-2025 End: 06-20-2025 ambulatory Injection Kan [facility] Work Phone: Hematology/Oncology Comment on above: Megaloblastic anemia due to vitamin B12 deficiency (Primary Dx) Start: 06-17-2025 End: 06-17-2025 ambulatory Injection Kan [facility] Work Phone: Hematology/Oncology Comment on above: Megaloblastic anemia due to vitamin B12 deficiency (Primary Dx) Start: 06-16-2025 End: 06-16-2025 ambulatory Lab/Port [place] [facility] Work Phone: Hematology/Oncology Comment on above: Megaloblastic anemia due to vitamin B12 deficiency (Primary Dx) Start: 06-15-2025 End: 06-15-2025 ambulatory Injection Kan [facility] Work Phone: Hematology/Oncology Comment on above: Megaloblastic anemia due to vitamin B12 deficiency (Primary Dx) Start: 06-14-2025 End: 06-14-[address] Nile Hall DO -Medical Out Work Phone: Start: 06-14-2025 End: 06-14-2025 ambulatory Nile Hall Facility:[facility] Start: 06-13-2025 End: 06-13-2025 Telephone encounter Nile Hall DO Work Phone: Hematology/Oncology Comment on above: Transfusion Start: 06-13-2025 End: 06-13-[address] [facility] Facility:[facility] Start: 06-09-2025 End: 06-09-[address] [facility] Facility:[facility] Start: 06-03-2025 End: 06-03-2025 Specialty Pharmacy Maurilio Trujillo [facility] Comment on above: SPP Oral Oncology/he matology - Medication Refill (Zejula) Start: 06-02-2025 End: 06-02-2025 Follow-up encounter Nile Hall DO Work Phone: Hematology/Oncology Start: 06-02-2025 End: 06-10-2025 Telephone encounter Nile Hall DO Work Phone: Hematology/Oncology Comment on above: Appointment Start: 06-01-2025 End: 06-01-2025 Office outpatient visit 25 minutes Nile Hall DO Work Phone: Hematology/Oncology Comment on above: 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); Anemia, unspecified type; Thrombocytopenia Start: 06-01-2025 End: 06-01-2025 ambulatory ROMEL D [facility] Facility:[facility] Start: 05-30-2025 End: 05-30-2025 ambulatory Romel Michelle MD Work Phone: [facility] [place] Start: 05-30-2025 End: 05-30-2025 Patient encounter procedure Romel Michelle MD Work Phone: [facility] [place] Comment on above: Population Health Na vigation Outreach ([employer] [place]/) Start: 05-27-2025 End: 05-27-2025 ambulatory ROMEL MICHELLE Facility:[facility] Start: 05-18-2025 End: 05-18-2025 [facility] Start: 05-11-2025 End: 05-11-2025 ambulatory ROMEL MICHELLE Facility:[facility] Start: 05-04-2025 End: 05-04-2025 Specialty Pharmacy Maurilio Trujillo [facility] Comment on above: SPP Oral Oncology/he matology - Medication Refill (Zejula) Start: 04-28-2025 End: 04-28-2025 ambulatory Romel Michelle MD Work Phone: [facility] [place] Start: 04-28-2025 End: 04-28-2025 Patient encounter procedure Romel Michelle MD Work Phone: [facility] [place] Comment on above: Population Health Na vigation Outreach ([employer] [place]/) Start: 04-26-2025 Non-patient / Non-visit Ankur Colon DO -[facility] Start: 04-26-2025 End: 05-03-2025 Follow-up encounter Nile Hall DO Work Phone: Hematology/Oncology Comment on above: Follow up to colonos copy of 04/26/2025 Start: 04-26-2025 End: 04-26-2025 Admission to same day surgery center Ankur Colon DO -Endoscopy Work Phone: Start: 04-26-2025 End: 05-03-[address] 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) Start: 04-13-2025 End: 04-13-2025 Telephone encounter Nile Hall DO Work Phone: Hematology/Oncology Comment on above: Results (platelet 23 ) Start: 04-13-2025 End: 04-13-2025 ambulatory [facility] Start: 04-06-2025 End: 04-06-2025 ambulatory ROMEL D [facility] Facility:[facility] Start: 03-31-2025 End: 04-01-2025 Telephone encounter Nile Hall DO Work Phone: Hematology/Oncology Comment on above: Results Start: 03-30-2025 End: 03-30-2025 [facility] Start: 03-22-2025 End: 03-23-2025 ambulatory Nile Hall DO Work Phone: Hematology/Oncology Comment on above: Receipt of Zejula Start: 03-21-2025 End: 03-21-2025 [facility] Start: 03-21-2025 End: 03-21-2025 ambulatory Treatment Rm 15 [facility] Work Phone: Hematology/Oncology Comment on above: Iron malabsorption ( HCC) (Primary Dx); 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 loss Start: 03-18-2025 End: 03-22-2025 Telephone encounter Krystin Sam RN Work Phone: Hematology/Oncology Comment on above: Care Coordination (S tart Zejula) Start: 03-17-2025 End: 03-17-2025 ambulatory Treatment Rm 15 Kan [facility] Work Phone: Hematology/Oncology Comment on above: Iron malabsorption ( HCC) (Primary Dx); 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 loss Start: 03-15-2025 End: 03-15-2025 ambulatory Treatment Rm 17 [facility] Work Phone: Hematology/Oncology Comment on above: Iron malabsorption ( HCC) (Primary Dx); 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 loss Approval Notificatio n Start: 03-14-2025 End: 03-14-2025 Telephone encounter Yulia Holm RN Hematology/Oncology Comment on above: Surgical Brace Maker - O ther (Oral Anti-Cancer Agents Education (Zejula) ) Refill Request Start: 03-11-2025 End: 03-11-2025 ambulatory Treatment Rm 17 [facility] Work Phone: Hematology/Oncology Comment on above: Iron malabsorption ( HCC) (Primary Dx); 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 loss Start: 03-09-2025 End: 04-20-2025 Telephone encounter Carey Elias APRN.CLAMP OPERATOR Work Phone: Gynecology Comment on above: Patient Update Start: 03-09-2025 End: 03-09-2025 ambulatory Treatment Rm 18 Kan [facility] Work Phone: Hematology/Oncology Comment on above: Iron malabsorption ( HCC) (Primary Dx); 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 loss Start: 03-03-2025 End: 03-03-2025 ambulatory Maurilio Trujillo [facility] Start: 03-03-2025 End: 03-03-2025 Patient encounter procedure Maurilio Trujillo [facility] Comment on above: SPP Oral Oncology/he matology - Treatment Referral (Zejula 300mg); Insurance Authorization ([place]ending [place]) Start: 03-02-2025 End: 03-07-2025 Telephone encounter Nile [...] End: 03-01-2025 Patient encounter procedure Elba BECK -[facility] Work Phone: Start: 03-01-2025 End: 03-01-[address] Romel Michelle MD Work Phone: [facility] Work Phone: Start: 02-03-2025 End: 02-03-2025 Patient encounter procedure Linda Nuñez WATER COMMISSIONER.CLAMP OPERATOR Work Phone: Hematology/Oncology Start: 02-03-2025 End: 02-03-2025 ambulatory Linda Nuñez WATER COMMISSIONER.CLAMP OPERATOR Work Phone: Hematology/Oncology Comment on above: 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) Start: 01-18-2025 End: 01-18-2025 [facility]ulatory [facility] [place] Start: 01-18-2025 End: 01-18-2025 Patient encounter procedure Carey [facility]utta [facility] [place] Comment on above: Population Health [facility] Start: 01-10-2025 ambulatory Romle Michelle Facilit y:[facility] Start: 01-10-2025 Non-patient / Non-visit Dr. Leydi Carmen MD -[facility] Start: 01-10-2025 End: 01-10-2025 Admission to same day surgery center Dr. Leydi Carmen MD -Endoscopy Work Phone: Start: 01-10-2025 End: 01-10-[address] Romel Michelle MD Work Phone: [facility] Work Phone: Start: 12-27-2024 End: 12-27-2024 Telephone encounter Yulia Holm RN Hematology/Oncology Comment on above: Surgical Brace Maker - O ther (C1D1 Post Treatment Call ([employer]) ) Start: 12-24-2024 End: 12-24-2024 ambulatory Treatment Rm 8 [facility] Work Phone: Hematology/Oncology Comment on above: 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); Ovarian cancer, bilateral (HCC) Start: 12-22-2024 End: 12-22-2024 ambulatory care nurse [facility] Work Phone: Hematology/Oncology Comment on above: Encounter for educat ion (Primary Dx) Start: 12-21-2024 Non-patient / Non-visit Dr. Leydi Carmen MD -[facility] Start: 12-21-2024 End: 12-21-2024 Admission to same day surgery center Dr. Leydi Carmen MD -Endoscopy Work Phone: Start: 12-21-2024 End: 12-21-[address] Romel Michelle MD Work Phone: [facility] Work Phone: Start: 12-17-2024 End: 12-17-[address] Leydi Carmen MD -[facility] Work Phone: Start: 12-17-2024 End: 12-17-2024 ambulatory Romel Michelle Facility[facility] Start: 12-16-2024 End: 12-16-2024 ambulatory ROMEL MICHELLE Facility:[facility] Start: 12-16-2024 End: 12-16-2024 Subsequent hospital visit by physician Ct Prep [facility] Cat Scan Comment on above: 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.9] Start: 12-03-2024 End: 12-03-2024 ambulatory Treatment Rm 2 Kan [facility] Work Phone: Hematology/Oncology Comment [...] Start: 12-02-2024 End: 12-02-2024 [facility] Start: 11-12-2024 End: 11-12-2024 ambulatory Treatment Rm 2 [facility] Work Phone: Hematology/Oncology Comment on above: 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) Start: 11-11-2024 End: 11-11-2024 Patient encounter procedure Linda Nuñez WATER COMMISSIONER.CLAMP OPERATOR Work Phone: Hematology/Oncology Start: 11-11-2024 End: 11-11-2024 ambulatory Copake Nuñez WATER COMMISSIONER.CLAMP OPERATOR Work Phone: Hematology/Oncology Comment on above: 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) Start: 10-22-2024 End: 10-22-2024 ambulatory Treatment Rm 2 Kan [facility] Work Phone: Hematology/Oncology Comment [...] 10-15-2024 End: 10-15-2024 ambulatory ROMEL D TALAMPAS Facility:[facility] Start: 10-08-2024 End: 10-08-[address] [facility] Facility:[facility] Start: 10-07-2024 End: 10-08-2024 Telephone encounter Nile Hall DO Work Phone: Hematology/Oncology Comment on above: Appointment Start: 10-07-2024 End: 10-07-[address] [facility] Facility:[facility] Start: 10-07-2024 End: 10-07-2024 Nutrition therapy Fredis [...] Ahumada RN Gynecology Oncology Comment on above: Surgical Brace Maker - O ther; Patient Update Start: 09-17-2024 End: 09-17-[address] [facility] Facility:[facility] Start: 09-17-2024 End: 09-17-2024 Nursing evaluation of patient and report Hair Or Beauty Salon Manager Onc Nurse Ca 4 Work Phone: Gynecology Oncology Comment on above: Removal of dave ( Primary Dx) Start: 09-16-2024 End: 09-16-2024 ambulatory Fredis Buckner MD Work Phone: Gynecology Oncology Start: 09-16-2024 End: 09-16-2024 Follow-up encounter Fredis Buckner MD Work Phone: Gynecology Oncology Comment on above: Surgery Follow up qu estions Start: 09-15-2024 End: 09-15-2024 Patient Outreach Kendy Zain RN Work Phone: [employer] Checker Management Comment on above: Transition Of Care ( /tcm d/c 09/13/24) Initial phone contact for Transitional Care Management Patient Question; Eric agueront Update Start: 09-14-2024 End: 09-15-2024 ambulatory Rosi Martinez WATER COMMISSIONER.CLAMP OPERATOR Work Phone: Gynecology Oncology Comment on above: 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 ) Surgical Brace Maker - O ther (Hospital Discharge ) Start: 09-09-2024 End: 09-13-2024 Telephone encounter Ema Hinojosa LPN Work Phone: [facility] Comment on above: Home Care (MD edgar gutiérrez) Start: 09-08-2024 End: 09-08-2024 Telephone encounter Ema Vega MD Work Phone: Gynecology Comment on above: Returning Patient's Call Start: 09-08-2024 End: 09-13-2024 Evaluation and management of inpatient ROMEL MICHELLE Facility:[facility] Start: 09-07-2024 End: 09-07-2024 Patient encounter procedure Fredis Buckner MD Work Phone: Gynecology Oncology Start: 09-07-2024 End: 09-07-2024 ambulatory Fredis Buckner MD Work Phone: Gynecology Oncology Comment on above: 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) Start: 09-07-2024 Encounter for other preprocedural examination ROMEL [facility]RI[facility] Start: 09-07-2024 End: 09-07-2024 Admission to [facility] Pacc Main 6 Work Phone: Pre Anesthesia Start: 09-07-2024 End: 09-07-2024 Anesthesia consultation Pac Main 6 Work Phone: Pre Anesthesia Comment on above: Pre-op evaluation (P rimary Dx); Irritable bowel syndrome with diarrhea Start: 09-07-2024 End: 09-07-2024 Preprocedural examination done Pac Main 6 Work Phone: [facility] Work Phone: Start: 09-03-2024 End: 09-03-2024 Telephone encounter Fredis Buckner MD Work Phone: Gynecology Oncology Comment on above: Appointment (1st att empt for Pre & Post-Op Instructions. Left message to call provider's office.) Start: 09-03-2024 End: 09-03-2024 ambulatory Hair Or Beauty Salon Manager Onc Nurse Ca 4 Work Phone: Gynecology Oncology Comment on above: Educational circumst ances (Primary Dx) Start: 09-03-2024 End: 09-03-2024 Telemedicine consultation with patient Hair Or Beauty Salon Manager Onc Nurse Ca 4 Work Phone: Gynecology Oncology Start: 09-01-2024 End: 09-01-2024 Preprocedural examination done Karla Ford APRN.CNP Work Phone: [facility] Start: 09-01-2024 End: 09-01-2024 Telephone encounter Karla Ford APRN.CNP Work Phone: Gynecology Oncology Comment on above: Appointment Start: 08-31-2024 End: 08-31-2024 ambulatory Nile Hall DO Work Phone: Hematology/Oncology Comment on above: CT results Start: 08-31-2024 End: 08-31-2024 E-mail encounter from caregiver Nile Boo Hall DO Work Phone: Hematology/Oncology Start: 08-25-2024 End: 08-25-2024 ambulatory ROMEL MICHELLE Facility:[facility] Start: 08-25-2024 End: 08-25-2024 Subsequent hospital visit by physician Ct Prep [facility] Cat Scan Comment on [...] End: 08-12-2024 ambulatory Treatment Rm 2 Kan [facility] Work Phone: Hematology/Oncology Comment on above: 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) Start: 08-11-2024 End: 08-16-2024 ambulatory Romel Michelle MD Work Phone: Internal Medicine [place] [id number] Start: 08-11-2024 End: 08-11-2024 Office outpatient visit 25 minutes Nile Hall [facility] Work Phone: Hematology/Oncology Comment on above: 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) Start: 07-28-2024 End: 07-28-2024 Telephone encounter Nile [...] End: 07-23-2024 ambulatory Treatment Rm 7 Kan [facility] Work Phone: Hematology/Oncology Comment on above: 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); Gross hematuria Start: 07-22-2024 End: 07-22-2024 Telephone encounter Nile Hall DO Work Phone: Hematology/Oncology Comment on above: Results Start: 07-21-2024 End: 07-21-2024 ambulatory Nile Hall DO Work Phone: Hematology/Oncology Comment on above: 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) Start: 07-21-2024 End: 07-21-2024 Patient encounter procedure Nile Hall DO Work Phone: Hematology/Oncology Start: 07-18-2024 End: 07-18-2024 ambulatory Leia Eaton RN Gynecology Oncology Start: 07-16-2024 End: 07-16-2024 ambulatory Fredis Buckner MD Work Phone: Gynecology Oncology Comment on above: 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); Elevated cancer antigen 125 (CA-125) Start: 07-16-2024 End: 07-16-2024 Patient encounter procedure Fredis Buckner MD Work Phone: Gynecology Oncology Start: 07-01-2024 End: 07-01-2024 ambulatory Treatment Rm 2 Kan [facility] Work Phone: Hematology/Oncology Comment on above: 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) Start: 06-30-2024 End: 06-30-2024 Nutrition therapy Nile Hall DO Work Phone: Hematology/Oncology Comment on above: 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); Inadequate nutrition Start: 06-30-2024 End: 06-30-2024 Patient encounter procedure Nile Hall DO Work Phone: Hematology/Oncology Start: 06-23-2024 End: 06-23-2024 ambulatory Jamarcus Gomez MS Work Phone: [facility] Start: 06-23-2024 End: 06-23-2024 Subsequent hospital visit by physician Marta [facility] (I-Stat) Work Phone: Cat Scan Comment on above: 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.9] Start: 06-18-2024 End: 06-18-2024 ambulatory Estefany Valerio LOPEZ Work Phone: Nutrition Therapy Start: 06-18-2024 End: 06-18-2024 Nutrition therapy Estefany Valerio RD Work Phone: Nutrition Therapy Comment on above: Nutrition Telephone Start: 06-15-2024 End: 06-15-2024 ambulatory Jamarcus Gomez MS Work Phone: [facility] Comment on above: High grade ovarian c ancer (HCC) Start: 06-15-2024 End: 06-15-2024 Telemedicine consultation with patient Jamarcus Gomez MS Work Phone: [facility] Start: 06-14-2024 End: 06-15-2024 Telephone encounter Nile Hall DO Work Phone: Hematology/Oncology Comment on above: Follow Up Start: 06-11-2024 End: 06-11-2024 ambulatory Treatment Rm 6 Kan [facility] Work Phone: Hematology/Oncology Comment on above: 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) Start: 06-10-2024 End: 06-10-2024 Home visit Avril Graham RN Work Phone: [facility] Comment on above: SN AGENCY DC W VISIT Start: 06-08-2024 End: 06-08-2024 ambulatory Linda Nuñez APRN.CLAMP OPERATOR Work Phone: Hematology/Oncology Comment on above: 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) Start: 06-08-2024 End: 06-08-2024 Patient encounter procedure Linda Nuñez APRN.CLAMP OPERATOR Work Phone: Hematology/Oncology Start: 05-31-2024 End: 05-31-2024 Home visit Avril Graham RN Work Phone: [facility] Comment on above: SN ROUTINE Start: 05-29-2024 End: 07-05-2024 Telephone encounter Jason Oswald RN Work Phone: [facility] Comment on above: Home Care (Request f or extension on SN visit orders.) Start: 05-25-2024 End: 07-05-2024 Telephone encounter Jason Oswald RN Work Phone: [facility] Comment on above: Home Care (Need to e xtend SN visits for home health 1wk2.) Start: 05-24-2024 End: 05-24-2024 Home visit Avril Graham RN Work Phone: [facility] Comment on above: SN ROUTINE Start: 05-19-2024 Telephone encounter Fredis Carmen se, MD Work Phone: [facility] Comment on above: Erroneous encounter- disregard Start: 05-19-2024 End: 05-19-2024 ambulatory Treatment Rm 1 Kan [facility] Work Phone: Hematology/Oncology Comment on above: 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) Start: 05-18-2024 End: 05-18-2024 Orders Only Fredis Buckner MD Work Phone: Gynecology Oncology Comment on above: 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); Severe protein-calorie malnutrition (HCC) Nutrition Counseling Start: 05-17-2024 End: 05-17-2024 Home visit Avril Graham RN Work Phone: [facility] Comment on above: SN ROUTINE Start: 05-14-2024 Telephone encounter Nile gonzales DO Work Phone: Hematology/Oncology Comment on above: Patient Question Start: 05-13-2024 End: 05-13-2024 Home visit Avril Graham RN Work Phone: [facility] Comment on above: SN ROUTINE Start: 05-10-2024 Telephone encounter Nile gonzales DO Work Phone: Hematology/Oncology Comment on above: Patient Question Start: 05-10-2024 End: 05-10-2024 Home visit Avril Graham RN Work Phone: [facility] Comment on above: SN ROUTINE Start: 05-06-2024 End: 05-06-2024 Home visit Avril Graham RN Work Phone: [facility] Comment on above: SN ROUTINE Start: 05-03-2024 End: 05-03-2024 Home visit Avril Graham RN Work Phone: [facility] Comment on above: SN ROUTINE Start: 04-29-2024 Telephone encounter Yulia Holm RN He matology/Oncology Comment on above: Surgical Brace Maker - O ther (C1D1 Post Treatment Call (Carboplatin/Paclitaxel) ) Start: 04-29-2024 End: 04-29-2024 Home visit Avril Graham RN Work Phone: [facility] Comment on above: SN ROUTINE Start: 04-28-2024 End: 04-28-2024 ambulatory Treatment Rm 2 Kan [facility] Work Phone: Hematology/Oncology Comment [...] Home visit Avril Graham RN Work Phone: [facility] Comment on above: SN ROUTINE Start: 04-26-2024 End: 04-26-2024 ambulatory care nurse [facility] Work Phone: Hematology/Oncology Comment on above: Encounter for educat ion (Primary Dx) Start: 04-22-2024 End: 04-22-2024 ambulatory Nile Hall DO Work Phone: Hematology/Oncology Comment on above: High grade ovarian c ancer (HCC) ACM ARIC RN ( ED Utilization review per payer request ) Start: 04-22-2024 End: 04-22-2024 Home visit Mariajose Carpenter RN Work Phone: [facility] Comment on above: SN ROUTINE Start: 04-22-2024 End: 04-22-2024 Patient encounter procedure Nile Hall DO Work Phone: Hematology/Oncology Start: 04-19-2024 End: 04-19-2024 Refill Carey Elias APRN.CLAMP OPERATOR Work Phone: Gynecology Comment on above: 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); Abdominal bloating; Pelvic mass SN ROUTINE New Patient Start: 04-16-2024 Orders Only Fredis Calderon Work Phone: Gynecology Oncology Start: 04-15-2024 End: 04-15-2024 Home visit Avril Graham RN Work Phone: [facility] Comment on above: SN SOC Start: 04-12-2024 Telephone encounter Brielle guerra Work Phone: [facility] Comment on above: Home Care (Confirmat ion call ) Start: 04-06-2024 ambulatory Liz Parra RN Work Phone: [employer] Start: 04-06-2024 Follow-up encounter Liz Parra RN Work Phone: [employer] Comment on above: Transition Of Care ( Fabric Value Based Non-Response Follow up) Start: 04-02-2024 End: 04-02-2024 Admission to establishment [facility] 2 Work Phone: Pre Anesthesia Start: 04-02-2024 End: 04-02-2024 Anesthesia consultation [facility] 2 Work Phone: Pre Anesthesia Comment on above: Preoperative examina tion (Primary Dx); Irritable bowel syndrome with diarrhea; Other ascites Start: 04-02-2024 End: 04-02-2024 Preprocedural examination done [place] [id number] Work Phone: [facility] Work Phone: Start: 04-01-2024 Telephone encounter Romel villarreal MD Work Phone: Internal Medicine [place] Comment on above: Patient Question Start: 03-31-2024 ambulatory Xiao haddad RN Work Phone: [employer] Start: 03-31-2024 Follow-up encounter Xiao avalos RN Work Phone: [employer] [facility] Comment on above: Transition Of Care ( TCM (Fabric Value Based non response follow up)) Start: 03-29-2024 End: 03-29-2024 Manual pelvic examination Fredis Buckner MD Work Phone: Gynecology Comment on above: Pelvic mass (Primary Dx) Start: 03-29-2024 End: 03-29-2024 Patient encounter procedure Fredis Buckner MD Work Phone: Gynecology Start: 03-26-2024 ambulatory Deloris casillas RN Work Phone: [employer] Start: 03-26-2024 Telephone encounter Bee Anglin RN Gy necology Comment on above: Patient Question Transition Of Care ( TCM [facility] Non-Response) Start: 03-22-2024 Telephone encounter Linn lovelace LPN Work Phone: [facility] Comment on above: Home Care (MD edgar gutiérrez for [facility]. ) Start: 03-16-2024 Telephone encounter Aga Meredith APRN.CLAMP OPERATOR Work Phone: Gynecology Oncology Comment on above: Surgical Brace Maker - O ther Start: 03-16-2024 End: 03-16-2024 ambulatory [employer] Manager Onc Nurse Ca 4 Work Phone: Gynecology Oncology Comment on above: Educational circumst ances (Primary Dx) Start: 03-16-2024 End: 03-16-2024 Telemedicine consultation with patient [employer] Or Beauty Salon Manager Onc Nurse Ca 4 Work Phone: Gynecology Oncology Start: 03-16-2024 End: 03-16-2024 Subsequent hospital visit by physician Marta [facility] (I-Stat) Work Phone: Cat Scan Comment on above: Pelvic mass [R19.00] Start: 03-15-2024 ambulatory Tarsha Burgos chely WATER COMMISSIONER.CLAMP OPERATOR Work Phone: Gynecology Start: 03-15-2024 End: 03-15-2024 Manual pelvic examination Fredis Buckner MD Work Phone: Gynecology Comment on above: Pelvic mass (Primary Dx); Pre-op examination Start: 03-15-2024 End: 03-15-2024 Patient encounter procedure Fredis Buckner MD Work Phone: Gynecology Start: 03-15-2024 End: 03-15-2024 Preprocedural examination done Tarsha Neveslokesh WATER COMMISSIONER.CLAMP OPERATOR Work Phone: [facility] Start: 03-11-2024 Telephone encounter Ema silveira RN Gynecology Comment on above: New Patient Start: 03-10-2024 Telephone encounter Romel villarreal MD Work Phone: Internal Medicine [place] Comment on above: Results Start: 03-10-2024 End: 03-10-2024 Subsequent hospital visit by physician Ct [facility] (I-Stat) Work Phone: Cat Scan Comment on above: Generalized abdomina l pain [R10.84] Start: 03-08-2024 Telephone encounter Romel villarreal MD Work Phone: Internal Medicine [place] Comment on above: Question Start: 03-04-2024 ambulatory Lucy Samuel RN NURSE SPINNER OPEN END Comment on above: Information Start: 03-04-2024 End: 03-04-2024 Subsequent hospital visit by physician Xr [facility] [place] Szymanski Work Phone: Radiology Comment on above: Generalized abdomina l pain [R10.84] Start: 03-02-2024 Telephone encounter Romel villarreal MD Work Phone: Family Medicine [place] Comment on above: stomach problem Start: 02-24-2024 End: 02-24-2024 Office outpatient visit 25 minutes Romel Michelle MD Work Phone: Internal Medicine [place] Comment on above: Abdominal distension (gaseous) (Primary Dx); Irritable bowel syndrome with both constipation and diarrhea Start: 12-22-2023 Refill Cathy IBARRACLAMP OPERATOR Work Phone: [facility] Medicine Comment on above: Refill Request Start: 06-17-2023 Refill Romel monson MD Work Phone: Internal Medicine [place] Comment on above: Refill Request Start: 10-31-2022 End: 10-31-2022 Patient encounter procedure Nuria Pat WATER COMMISSIONER.CLAMP OPERATOR Work Phone: [place] [facility] Comment on above: Dysfunction of both eustachian tubes (Primary Dx); URI with cough and congestion Start: 08-14-2022 ambulatory Romel monson MD Work Phone: Internal Medicine [facility] Start: 07-01-2022 End: 07-01-2022 ambulatory [facility] Work Phone: Start: 07-01-2022 End: 07-01-2022 Patient encounter procedure [facility]-Outpatient Breast Imaging Start: 06-28-2022 End: 06-28-2022 Office outpatient visit 40 minutes Romel Michelle MD Work Phone: Internal Medicine [place] Comment on above: Irritable bowel synd kilo with diarrhea (Primary Dx); Age-related osteoporosis without current pathological fracture; Encounter for long-term current use of medication Start: 06-04-2022 End: 06-04-2022 Subsequent hospital visit by physician Bone Density [facility] Work Phone: Radiology Comment on above: Osteopenia of both h ips [M85.851, M85.852] Start: 05-20-2022 Telephone encounter Romel villarreal MD Work Phone: Internal Medicine [place] Comment on above: Patient Question Start: 12-26-2021 [facility] on above: Population Health Na vigation Outreach ([employer] Care Gaps) Procedures Date Procedure Procedure Detail Performing Clinician Start: 04-26-2025 End: 04-26-[address] Romel Michelle MD Work Phone: Start: 01-10-[address] Romel Michelle MD Work Phone: Start: 12-24-2024 Urnls dip stick/tabl et rgnt auto w/o microscopy [facility] Provider Start: 12-21-2024 End: 12-21-[address] Romel Michelle MD Work Phone: Start: 09-07-2024 Antibody screen ROMEL FUNEZ Comment on above: Order Comment: Speci men Type: BLOOD SPECIMENOrdering Facility: [facility] Address: [address] [place] [address] Performed By: #### T [id number] ####CC MAIN BLOOD BANKCLIA [id number] [address] Start: 07-23-2024 Blood count complete auto&auto difrntl wbc Nile A Masci DO Work Phone: Start: 04-28-2024 Lipid 1996 [...] 06-26-2021 Adult depression scr eening assessment Carey Lockhart Start: 06-15-2019 Lipid 1996 panel - S anita or Plasma Romel Michelle MD Work Phone: Start: 11-22-2015 Colonoscopy Carey bullock Plan of Treatment Date Care Activity Detail Author Start: 12-21-2034 Screening for malign ant neoplasm of colon [facility] Start: 04-26-2030 Screening for malign ant neoplasm of colon [facility] Start: 04-28-2029 Lipid panel Lipid Screening [facility] Start: 06-01-2028 Diabetes Screening Diabetes Screenin g [facility] Start: 05-11-2028 Diabetes Screening Diabetes Screenin g [facility] Start: 04-25-2028 Diabetes Screening Diabetes Screenin g [facility] Start: 04-20-2028 Diabetes Screening Diabetes Screenin g [facility] Start: 03-30-2028 Diabetes Screening Diabetes Screenin g [facility] Start: 03-02-2028 Diabetes Screening Diabetes Screenin g [facility] Start: 02-04-2028 Diabetes Screening Diabetes Screenin g [facility] Start: 12-25-2027 Diabetes Screening Diabetes Screenin g [facility] Start: 12-02-2027 Diabetes Screening Diabetes Screenin g [facility] Start: 11-11-2027 Diabetes Screening Diabetes Screenin g [facility] Start: 10-22-2027 Diabetes Screening Diabetes Screenin g [facility] Start: 10-15-2027 Diabetes Screening Diabetes Screenin g [facility] Start: 09-13-2027 Diabetes Screening Diabetes Screenin g [facility] Start: 09-07-2027 Diabetes Screening Diabetes Screenin g [facility] Start: 08-11-2027 Diabetes Screening Diabetes Screenin g [facility] Start: 07-21-2027 Diabetes Screening Diabetes Screenin g [facility] Start: 06-30-2027 Diabetes Screening Diabetes Screenin g [facility] Start: 06-08-2027 Diabetes Screening Diabetes Screenin g [facility] Start: 05-18-2027 Diabetes Screening Diabetes Screenin g [facility] Start: 04-28-2027 Diabetes Screening Diabetes Screenin g [facility] Start: 04-22-2027 Diabetes Screening Diabetes Screenin g [facility] Start: 04-12-2027 Diabetes Screening Diabetes Screenin g [facility] Start: 04-11-2027 Diabetes Screening Diabetes Screenin g [facility] Start: 03-24-2027 Diabetes Screening Diabetes Screenin g [facility] Start: 03-15-2027 Diabetes Screening Diabetes Screenin g [facility] Start: 03-10-2027 Diabetes Screening Diabetes Screenin g [facility] Start: 07-11-2026 Diabetes Screening Diabetes Screenin g [facility] Start: 11-22-2025 Colonoscopy COLONOSCOPY [facility] Start: 11-22-2025 COLORECTAL CANCER SCREENING COLORECTAL CANCER SCREENING [facility] Start: 11-22-2025 Screening for malign ant neoplasm of colon [facility] Start: 08-04-2025 End: 08-04-2025 ambulatory [place] Kieran [facility] Laboratory Comment on above: (SO)CBC(?)/CMP(S)/CA 125* 2MO OV 2MO OV*QMO B12 DUE 1 10/17 Start: 07-28-2025 End: 07-28-2025 ambulatory 07/28/2025 10:15 AM EDT Results Only [place] Hernándezwn [facility] Laboratory [address] [place] [address] LABS [place] Hernándezwn [facility] Laboratory Comment on above: LABS Start: 07-21-2025 End: 07-21-2025 ambulatory 07/21/2025 10:00 AM EDT Results Only [place] Silva [facility] [address] [place] [address] LABS [place] Hernández[place] [facility] Laboratory Comment on above: LABS Start: 07-20-2025 End: 07-20-2025 ambulatory 07/20/2025 3:30 PM EDT Infusion Center Hematology/Oncology [address] [place] [address] Wstr, Injection Kan [facility] [address] [place] [address] QWK (4-4) B12* Hematology/Oncology Comment on above: QWK (4-4) B12* Start: 07-14-2025 End: 07-14-2025 ambulatory 07/14/2025 10:00 AM EDT Results Only [place] Silva [facility] Laboratory [address] [place] [address] QWK CBC X6WKS [place] [facility] Comment on above: QWK CBC X6WKS Start: 07-13-2025 End: 07-13-2025 ambulatory 07/13/2025 2:00 PM EDT Infusion Center Hematology/Oncology [address] [place] [address] Wstr, Injection Kan [facility] [address] [place] [address] QWK (3-4) B12 Hematology/Oncology Comment on above: QWK (3-4) B12 Start: 07-07-2025 End: 07-07-2025 ambulatory 07/07/2025 10:00 AM EDT Results Only [place] [facility] Laboratory [address] [place] [address] QWK CBC X6WKS [facility] Laboratory Comment on above: QWK CBC X6WKS Start: 07-05-2025 End: 07-05-2025 Specialty Pharmacy 07/05/2025 10:00 AM EDT Specialty Pharmacy [facility] [address] [place] [id number] [place] [address] Pharmacist, [facility] [address] [place] [address] Refill - Zejula [30DS] [facility] Comment on above: Refill - Zejula [30D S] Start: 06-30-2025 End: 06-30-2025 ambulatory [facility] Comment on above: SO)CBC(?)/CMP(S)/CA 125 QWK (2-4) B12*INJECT ION SCHEDULE FULL Start: 06-25-2025 DIABETES SCREEN DIABETES SCREEN [facility] Start: 06-25-2025 Diabetes Screening Diabetes Screenin g [facility] Start: 06-23-2025 End: 06-23-2025 ambulatory [facility] Comment on above: QWK CBC X6WKS QWK (1-4) B12 Start: 06-21-2025 End: 06-21-2025 ambulatory 06/21/2025 9:15 AM EDT Infusion Center Hematology/Oncology [address] [place] [address] Wstr, Injection Kan [facility] [address] [place] [address] QD B12 Hematology/Oncology Comment on above: QD B12 Start: 06-21-2025 End: 06-21-2025 Patient encounter procedure Cat Scan Comment on above: CT ABD/PEL/CHEST W I VCON Start: 06-20-2025 End: 06-20-2025 ambulatory 06/20/2025 10:45 AM EDT Infusion Center Hematology/Oncology [address] [place] [address] Wstr, Injection Kan [facility] [address] [place] [address] QD B12 Hematology/Oncology Comment on above: QD B12 Start: 06-17-2025 End: 06-17-2025 ambulatory 06/17/2025 10:15 AM EDT Infusion Center Hematology/Oncology [address] [place] [address] Wstr, Injection Kan [facility] [address] [place] [address] QD B12 Hematology/Oncology Comment on above: QD B12 Start: 06-16-2025 End: 06-16-2025 ambulatory [facility] Comment on above: QWK CBC X6WKS QD B12 Start: 06-14-2025 Administration of bl ood product [facility] Start: 06-14-2025 [facility] Start: 06-13-2025 End: 06-13-2025 ambulatory 06/13/2025 8:30 AM EDT Results Only [facility] [address] [place] [address] CBC poss tx, retic, b-12, iron Serum Folate.* [facility] Comment on above: CBC poss tx, retic, b-12, iron Serum Folate.* Start: 06-09-2025 End: 06-09-2025 ambulatory 06/09/2025 10:00 AM EDT Results Only [place] Silva [facility] [address] [place] [address] QWK CBC X6WKS [place] [facility] Laboratory Comment on above: QWK CBC X6WKS Start: 06-06-2025 Influenza vaccination Influenza Vacc ine (#1) [facility] Start: 06-03-2025 End: 06-03-2025 Specialty Pharmacy 06/03/2025 7:00 AM EDT Specialty Pharmacy [facility] [address] [place] [address] Pharmacist, [facility] [address] Refill - Zejula [30DS] [facility] Comment on above: Refill - Zejula [30D S] Start: 06-01-2025 End: 06-01-2025 ambulatory Hematology/Oncology Comment on above: OV/LAB 05/30* Start: 05-30-2025 End: 05-30-2025 ambulatory Gynecology Comment on above: f/u - 6 mo PT CANCELED 05/25- ED TO 05/30 PER PT SCHED Start: 05-18-2025 End: 05-18-2025 ambulatory 05/18/2025 4:00 PM EDT Results Only [place] Silva [facility] Laboratory [address] [place] [address] QWK CBC(?TX) [place] Hernándezwn [facility] Laboratory Comment on above: QWK CBC(?TX) Start: 05-11-2025 End: 05-11-2025 ambulatory 05/11/2025 4:00 PM EDT Results Only [place] Silva [facility] Laboratory [address] [place] [address] QWK CBC(?TX) [place] [facility] Laboratory Comment on above: QWK CBC(?TX) Start: 05-04-2025 End: 05-04-2025 Specialty Pharmacy [facility] Comment on above: Refill - Zejula [30D S] Lab 04/13 - HOLDING OF 04/13 - check chart for update. 04/20 notes: Continue to hold zejula until after scope, check for updates. QWK CBC(?TX) Start: 04-27-2025 End: 04-27-2025 Specialty Pharmacy 04/27/2025 10:00 AM EDT Specialty Pharmacy [facility] [place] [address] Pharmacist, [facility] [address] [place] [address] [place] [address] Refill - Zejula. 30DS. Lab 04/13 - HOLDING OF 04/13 - check chart for update [facility] Comment on above: Refill - Zejula. 30D S. Lab 04/13 - HOLDING OF 04/13 - check chart for update Start: 04-26-2025 Colonoscopy w/biopsy single/multiple COLONOSCOPY AND BIOPSY [facility] Start: 04-26-2025 Colsc flexible w/con trol bleeding any method COLONOSCOPY W/CONTROL BLEED [facility] Start: 04-26-2025 Patient discharge [facility] Start: 04-25-2025 End: 04-25-2025 ambulatory 04/25/2025 8:45 AM EDT Results Only [facility] [address] [place] [address] Repeat CBC [facility] Comment on above: Repeat CBC Start: 04-25-2025 [facility] Start: 04-21-2025 End: 07-21-2025 Cancer Ag 125 [Units/volume] in Serum or Plasma CA 125 Lab Routine High grade ovarian cancer (HCC) Expected: 04/21/2025 (Approximate), Expires: 07/21/2025 [facility] Comment on above: Expected: 04/21/2025 (Approximate), Expires: 07/21/2025 Start: 04-20-2025 End: 04-20-2025 ambulatory [facility] Comment on above: QWK CBC(?TX) 1MO OV/EARLY LAB Start: 04-20-2025 End: 04-20-2025 Specialty Pharmacy 04/20/2025 7:15 AM EDT Specialty Pharmacy [facility] [address] [place] [address] Pharmacist, [facility] [address] [place] [address] Refill - Zejula. 30DS. Lab 04/13 - HOLDING OF 04/13 - check chart for update [facility] Comment on above: Refill - Zejula. 30D S. Lab 04/13 - HOLDING OF 04/13 - check chart for update Start: 04-13-2025 End: 04-13-2025 ambulatory 04/13/2025 8:30 AM EDT Results Only [place] Silva [facility] [address] [place] [address] QWK CBC(?TX) [place] [facility] Laboratory Comment on above: QWK CBC(?TX) Start: 04-12-2025 End: 04-12-2025 Specialty Pharmacy 04/12/2025 10:00 AM EDT Specialty Pharmacy [facility] Special[facility] Pharm[facility] [address] [place] [address] Pharmacist, [facility] [address] [place] [address] Refill - Zejula. 30DS. [facility] Comment on above: Refill - Zejula. 30D S. Start: 04-07-2025 End: 04-07-2025 ambulatory [place] Silva [facility] Laboratory Comment on above: (SO)CBC/CMP(S)/CA125 * Q3WK ZIRABEV/LAB EAR LY* Start: 04-06-2025 End: 04-06-2025 ambulatory 04/06/2025 8:30 AM EDT Results Only [place] Silva [facility] [address] [place] [address] QWK CBC(?TX) [facility] Comment on above: QWK CBC(?TX) Start: 03-30-2025 End: 03-30-2025 ambulatory 03/30/2025 8:30 AM EDT Results [facility] [address] [place] [address] QWK CBC(?TX) reticulocyte count and iron studies* [facility] Comment on above: QWK CBC(?TX) reticul ocyte count and iron studies* Start: 03-29-2025 End: 06-28-2025 CBC W Auto Differential panel - Blood COMPLETE BLOOD COUNT AND DIFFERENTIAL Lab STAT High grade ovarian cancer (HCC) 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 loss Iron malabsorption (HCC) Expected: 03/29/2025 (Approximate), Expires: 06/28/2025 [facility] Comment on above: Expected: 03/29/2025 (Approximate), Expires: 06/28/2025 Start: 03-28-2025 End: 03-28-2025 ambulatory 03/28/2025 7:30 AM EDT Results Only [place] [facility] [address] [place] [address] CBC, reticulocyte count and iron studies* [facility] Comment on above: CBC, reticulocyte co unt and iron studies* Start: 03-21-2025 End: 03-21-2025 ambulatory Hematology/Oncology Comment on above: 2ND FLOOR CBC/RETIC/IRON STUDI ES Start: 03-18-2025 End: 03-18-2025 ambulatory Hematology/Oncology Comment on above: Q3WK ZIRABEV/C4-13/L AB&OV 6/12* OV EVERY OTHER TX Q3WK ZIRABEV/LAB&OV 6/12* OV EVERY OTHER [place] Start: 03-17-2025 End: 03-17-2025 ambulatory [facility] Comment on above: CBC/CMP/CA 125* OV/LAB EARLY/CHEMO * MASCI (SO)CBC/CMP(S)/CA125 * 2ND FLOOR Start: 03-15-2025 End: 03-15-2025 ambulatory 03/15/2025 10:00 AM EDT Infusion Center Hematology/Oncology [address] [place] [address] 2ND FLOOR Hematology/Oncology Comment on above: 2ND FLOOR Start: 03-11-2025 End: 03-11-2025 ambulatory 03/11/2025 10:00 AM EDT Infusion Center Hematology/Oncology [address] [place] [address] 2ND FLOOR Hematology/Oncology Comment on above: 2ND FLOOR Start: 03-09-2025 End: 03-09-2025 ambulatory 03/09/2025 1:00 PM EDT Infusion Center Hematology/Oncology [address] [place] [address] 2ND FLOOR Hematology/Oncology Comment on above: 2ND FLOOR Start: 02-25-2025 End: 02-25-2025 ambulatory Hematology/Oncology Comment on above: Q3WK BEVACIZUMAB/AUT H EXP? Q3WK BEVACIZUMAB/LAB &OV 02/24/AUTH EXP?* Q3WK BEVACIZUMAB/LAB &OV 02/24/AUTH EXP?* ov every other tx/alternate md and tinning equipment tender CBC/CMP/CA 125* Q3WK BEVACIZUMAB/C3- 13/LAB EARLY* (SO)CBC/CMP(S)/CA125 * Q3WK ZIRABEV/LAB EAR LY* Start: 02-24-2025 End: 02-24-2025 ambulatory [place] [facility] Comment on above: CBC/CMP/CA 125* OV/EARLY LABS*Deedee davenport (SO)CBC/CMP(S)/CA125 /OV/CHEMO 02/25* JAUN (SO)CBC/CMP(S)/CA125 /OV/CHEMO 02/25* alternate md/tinning equipment tender Start: 02-04-2025 End: 02-04-2025 ambulatory Hematology/Oncology Comment on above: Q3WK CARBO/TAXOL/LAB & OV 02/03/AUTH EXP 10/05/25* THUR/FRI CBC/CMP/CA 125* CBC/CMP/CA 125*Q3WK BEVACIZUMAB/AUTH EXP? CBC/CMP/CA 125/Q3WK BEVACIZUMAB/AUTH EXP?* CBC/CMP/CA 125/Q3WK BEVACIZUMAB/AUTH EXP?* ov every other tx/alternate md/tinning equipment tender DELAYED PER 01/07 TE Start: 02-03-2025 Covid-19 Vaccine (7 - Moderna risk season) Covid-19 Vaccine (7 - Moderna risk season) [facility] Start: 02-03-2025 End: 02-03-2025 ambulatory [facility] Comment on above: (SO)CBC/CMP(S)/MG(S) /CA125* OV/EARLY LABS/CHEMO 02/04* CBC/CMP/CA 125* OV/LAB EARLY/CHEMO * [facility] Start: 01-14-2025 End: 01-14-2025 ambulatory Hematology/Oncology Comment on above: Q3WK CARBO/TAXOL/LAB & OV 01/12/AUTH EXP 10/05/25* THUR/FRI Q3WK BEVACIZUMAB/AUT H EXP? Q3WK BEVACIZUMAB/LAB &OV 01/13/AUTH EXP?* Q3WK BEVACIZUMAB/LAB &OV 01/13/AUTH EXP?* ov every other tx/alternate md/tinning equipment tender Start: 01-13-2025 End: 01-13-2025 ambulatory [facility] Laboratory Comment on above: CBC/CMP/CA 125* OV/EARLY LABS*MASCI (SO)CBC/CMP(S)/CA125 /OV/CHEMO 01/14* MASCI Start: 01-12-2025 End: 01-12-2025 ambulatory [facility] Laboratory Comment on above: (SO)CBC/CMP(S)/MG(S) /CA125* OV/EARLY LABS/CHEMO 01/14* Start: 01-10-2025 Sigmoidoscopy flx co ntrol bleeding SIGMOIDOSCOPY FOR BLEEDING [facility] Start: 01-10-2025 Patient discharge [facility] Start: 12-24-2024 End: 12-24-2024 ambulatory Hematology/Oncology Comment on above: Q3WK CARBO/TAXOL/LAB & OV 12/23/AUTH EXP 10/05/25* Thur/Fri (SO)CBC/CMP(S)/CA125 * START Q3WK BEVACIZUM AB/AUTH EXP?* (SO)CBC/CMP(S)/CA125 /START Q3WK BEVACIZUMAB/AUTH EXP?* Start: 12-23-2024 End: 12-23-2024 ambulatory [facility] Laboratory Comment on above: (SO)CBC/CMP(S)/MG(S) /CA125* OV/EARLY LABS/CHEMO 12/24* Start: 12-22-2024 End: 12-22-2024 ambulatory 12/22/2024 10:30 AM EDT Infusion Center Hematology/Oncology [address] [place] [address] Wstr, Surgical Brace Maker [facility] [address] [place] [address] CHEMO ED - BEVACIZUMAB* Hematology/Oncology Comment on above: CHEMO ED - BEVACIZUM AB* Start: 12-21-2024 Colsc flexible w/con trol bleeding any method COLONOSCOPY W/CONTROL BLEED [facility] Start: 12-21-2024 Patient discharge [facility] Start: 12-16-2024 End: 12-16-2024 Patient encounter procedure Cat Scan Comment on above: 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.9] Start: 12-03-2024 End: 12-03-2024 ambulatory Hematology/Oncology Comment on above: Q3WK CARBO/TAXOL/LAB & OV 12/02/AUTH EXP 10/05/25*/Friday CBC/Q3WK CARBO/TAXOL /LAB & OV 12/02/AUTH EXP 10/05/25*/Friday Start: 12-02-2024 End: 12-02-2024 ambulatory [facility] Laboratory Comment on above: CBC/CMP/MAG/CA 125* OV/EARLY LABS/CHEMO 12/03* (SO)CBC/CMP(S)/MG(S) /CA125* Start: 11-12-2024 End: 11-12-2024 ambulatory 11/12/2024 8:00 AM EST Infusion Center Hematology/Oncology [address] [place] [address] Q3WK CARBO/TAXOL/LAB & OV 11/11/AUTH EXP 10/05/25*/Emily y Hematology/Oncology Comment on above: Q3WK CARBO/TAXOL/LAB & OV //AUTH EXP 10/05/25*/Friday Start: 11-11-2024 End: 11-11-2024 ambulatory [facility] Laboratory Comment on above: CBC/CMP/MAG/CA 125* OV/EARLY LABS/CHEMO 11/12* Start: 10-28-2024 End: 10-28-2024 ambulatory 10/28/2024 9:15 AM EST Results Only [facility] [address] [place] [address] CBC/CMP/CA 125. [facility] Comment on above: CBC/CMP/CA 125. Start: 10-22-2024 End: 10-22-2024 ambulatory [facility] Laboratory Comment on above: (SO)CBC/CMP(S)/MG(S) * Q3WK CARBO/TAXOL/EAR LY LABS/AUTH EXP 10/05/25* /Friday Start: 10-15-2024 End: 10-15-2024 ambulatory 10/15/2024 8:40 AM EST Visit (SP) Office Hematology/Oncology [address] [place] [address] Nile Hall DO [address] [place] [address] 2WK OV* Hematology/Oncology Comment on above: 2WK OV* Start: 10-08-2024 End: 10-08-2024 ambulatory 10/08/2024 7:15 AM EST Results [facility] [address] [place] [address] [facility] Start: 10-07-2024 End: 01-06-2025 CBC W Auto Differential panel - Blood COMPLETE BLOOD COUNT AND DIFFERENTIAL Lab Routine Postop check Expected: 10/07/2024, Expires: 01/06/2025 [facility] Work Phone: Comment on above: Expected: 10/07/2024 , Expires: 01/06/2025 Start: 10-07-2024 End: 10-07-2024 ambulatory 10/07/2024 11:45 AM EST Visit (SP) Office Gynecology Oncology [address] [place] [address] [place] [address] [place] [address] post op Gynecology Oncology Comment on above: post op Start: 10-06-2024 Advance Directive Discussion Advance Directive Discussion [facility] Start: 10-06-2024 Medicare Advantage A nnual Wellness Visit Medicare Advantage Annual Wellness Visit [facility] Start: 10-01-2024 Covid-19 Vaccine () Covid-19 Vaccine () [facility] Start: 09-24-2024 End: 09-24-2024 ambulatory 09/24/2024 8:00 AM EST [facility] Hematology/Oncology [address] [place] [address] Q3WK CARBO/TAXOL/LAB & OV 09/22/AUTH EXP 10/05/24* Hematology/Oncology Comment on above: Q3WK CARBO/TAXOL/LAB & OV 09/22/AUTH EXP 10/05/24* Start: 09-22-2024 End: 09-22-2024 ambulatory [facility] Laboratory Comment on above: CBC/?LABS* OV/LABS EARLY/CHEMO 09/24* masci (SO)CBC/CMP(S)/MG(S) /CA125* Start: 09-14-2024 End: 09-14-2024 ambulatory 09/14/2024 2:00 PM EST [facility] Gynecology Oncology [address] [place] [address] Rosi Mratinez APRN.CLAMP OPERATOR [address] [place] [address] post op Gynecology Oncology Comment on above: post op Start: 09-08-2024 End: 09-08-2024 Admission to same day surgery center 09/08/2024 11:15 AM EST - 09/08/2024 3:15 PM EST Surgery Admitting [address] [place] [address] [place] [address] [place] [address] DEBULKING SALPINGO-OOPHORECTOMY, OMENTECTOMY, TOTAL ABDOMINAL HYSTERECTOMY AND [...] 11:15 AM EST Hospital Encounter Admitting [address] [place] [address] [place] [address] [place] [address] High grade ovarian cancer (HCC) [C56.9] Admitting Comment on above: 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.9] Start: 09-08-2024 End: 09-08-2024 Admission to same day surgery center 09/08/2024 9:45 AM EST - 09/08/2024 1:45 PM EST Surgery Admitting [address] [place] [address] [place] [address] [place] [address] DEBULKING SALPINGO-OOPHORECTOMY, OMENTECTOMY, TOTAL ABDOMINAL HYSTERECTOMY AND RADICAL DISSECTION W/ LIMITED PARA-AORTIC LYMPHADENECTOMY, BILATERAL Admitting Comment on above: DEBULKING SALPINGO-O OPHORECTOMY, OMENTECTOMY, TOTAL ABDOMINAL HYSTERECTOMY AND RADICAL DISSECTION W/ LIMITED PARA-AORTIC LYMPHADENECTOMY, BILATERAL Start: 09-08-2024 End: 09-08-2024 Bso w/omentectomy hany debulking w/lmphadectomy [facility] Start: 09-08-2024 Subsequent hospital visit by physician 09/08/2024 9:45 AM EST Hospital Encounter Admitting [address] [place] [address] [place] [address] [place] [address] High grade ovarian cancer (HCC) [C56.9] Admitting Comment on above: 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.9] Start: 09-07-2024 End: 09-07-2024 Admission to same day surgery center 09/07/2024 11:00 AM EST Visit (SP) Office Gynecology Oncology [address] [place] [address] [place] [address] [place] [address] [address] review; surgery consent Gynecology Oncology Comment on above: CT review; surgery c onsent Start: 09-07-2024 End: 09-07-2024 Patient encounter procedure Admitting Comment on above: ADMIT LAB Start: 09-07-2024 End: 09-07-2024 Anesthesia consultation 09/07/2024 9:00 AM EST PAT Pre Anesthesia [address] [place] [address] 6, Pacc [address] [place] [address] PACC Pre Anesthesia Comment on above: PACC Start: 09-06-2024 End: 09-06-2024 ambulatory 09/06/2024 9:10 AM EST Visit (SP) Office Hematology/Oncology [address] [place], [place] [id number] Nile Hall DO [address] [place] [address] OV/DISCUSS PLAN/CT 08/25* Hematology/Oncology Comment on above: OV/DISCUSS PLAN/CT 1 10/25* Start: 09-03-2024 End: 09-03-2024 ambulatory 09/03/2024 8:00 AM [facility] Hematology/Oncology [address] [place] [address] Q3WK CARBO/TAXOL/LAB & OV AUTH EXP 10/05/24* Hematology/Oncology Comment on above: Q3WK CARBO/TAXOL/LAB & OV AUTH EXP 10/05/24* Start: 09-01-2024 End: 12-01-2024 aPTT in Platelet poor plasma by Coagulation assay ACTIVATED PARTIAL THROMBOPLASTIN TIME Lab Routine High grade ovarian cancer (HCC) Preop examination Expected: 09/01/2024 (Approximate), Expires: 12/01/2024 [facility] Comment on above: Expected: 09/01/2024 (Approximate), Expires: 12/01/2024 Start: 09-01-2024 End: 10-01-2024 Cancer Ag 125 [Units/volume] in Serum or Plasma CA 125 Lab Routine High grade ovarian cancer (HCC) Preop examination Expected: 09/01/2024, Expires: 10/01/2024 [facility] Work Phone: Comment on above: Expected: 09/01/2024 , Expires: 10/01/2024 Start: 09-01-2024 End: 12-02-2024 CBC W Auto Differential panel - Blood COMPLETE BLOOD COUNT AND DIFFERENTIAL Lab Routine High grade ovarian cancer (HCC) Preop examination Expected: 09/01/2024 (Approximate), Expires: 12/02/2024 [facility] Comment on above: Expected: 09/01/2024 (Approximate), Expires: 12/02/2024 Start: 09-01-2024 End: 10-01-2024 Comprehensive metabolic 2000 panel - Serum or Plasma COMPREHENSIVE METABOLIC PANEL Lab Routine High grade ovarian cancer (HCC) Preop examination Expected: 09/01/2024 (Approximate), Expires: 10/01/2024 [facility] Comment on above: Expected: 09/01/2024 (Approximate), Expires: 10/01/2024 Start: 09-01-2024 End: 12-01-2024 PT panel - Platelet poor plasma by Coagulation assay PROTHROMBIN TIME Lab Routine High grade ovarian cancer (HCC) Preop examination Expected: 09/01/2024 (Approximate), Expires: 12/01/2024 [facility] Comment on above: Expected: 09/01/2024 (Approximate), Expires: 12/01/2024 Start: 09-01-2024 End: 12-01-2024 TYPE AND SCREEN,30 DAY TYPE AND SCREEN,30 DAY Blood Bank Routine High grade ovarian cancer (HCC) Preop examination Expected: 09/01/2024, Expires: 12/01/2024 [facility] Comment on above: Expected: 09/01/2024 , Expires: 12/01/2024 Start: 09-01-2024 End: 09-01-2024 ambulatory [facility] Laboratory Comment on above: CBC/?LABS* OV/LABS EARLY/CHEMO 09/03* (SO)CBC/CMP(S)/MG(S) /CA125* Start: 08-25-2024 End: 08-25-2024 Patient encounter procedure Cat Scan Comment on above: 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.9] Start: 08-12-2024 End: 08-12-2024 ambulatory Hematology/Oncology Comment on above: Q3WK CARBO/TAXOL/LAB & OV EXP 10/05/24* CBC* last treatment? Start: 08-11-2024 End: 08-11-2024 ambulatory [facility] Laboratory Comment on above: CBC/?LABS* OV/LABS EARLY/CHEMO 08/12* (SO)CBC/CMP(S)/MG(S) /CA125* Start: 08-04-2024 End: 08-04-2024 Patient encounter procedure 08/04/2024 10:00 AM EDT Office Visit [facility] [address] [place] [address] Rashawn Power, MS [id number] [place], [place] [id number] Abdominal bloating [R14.0] [facility] Comment on above: Abdominal bloating [ R14.0] Start: 07-23-2024 End: 07-23-2024 ambulatory 07/23/2024 9:30 AM EDT Infusion Center Hematology/Oncology [address] [place] [address] Q3WK CARBO/TAXOL/LAB & OV EXP 10/05/24* Hematology/Oncology Comment on above: Q3WK CARBO/TAXOL/LAB & OV EXP 10/05/24* Start: 07-21-2024 End: 07-21-2024 ambulatory [facility]io [place] [facility] Laboratory Comment on above: CBC/?LABS* OV/LABS EARLY/CHEMO 07/23* Start: 07-19-2024 End: 07-19-2024 Patient encounter procedure 07/19/2024 8:40 AM EDT Office Visit [facility] [address] [place], [place] [id number] Romel Michelle MD [address] [place], [place] [id number] Yearly/Medicare Wellness [facility] Comment on above: Yearly/Medicare Well ness Start: 07-16-2024 End: 07-16-2024 ambulatory 07/16/2024 3:20 PM EDT Visit (SP) Office Gynecology Oncology [address] [place] [address] [place] [address] [place] [address] OVARIAN CANCER Gynecology Oncology Comment on above: OVARIAN CANCER Start: 07-16-2024 End: 10-15-2024 Cancer Ag 125 [Units/volume] in Serum or Plasma CA 125 Lab Routine Elevated cancer antigen 125 (CA-125) Expected: 07/16/2024, Expires: 10/15/2024 [facility] Work Phone: Comment on above: Expected: 07/16/2024 , Expires: 10/15/2024 Start: 07-15-2024 Shingrix Vaccine (1 of 2) Chacon grix Vaccine (1 of 2) [facility] Comment on above: Postponed from 01/30 (Declined at this time) Start: 07-15-2024 Shingrix Vaccine (2 of 3) Chacon grix Vaccine (2 of 3) [facility] Comment on above: Postponed from 01/30 (Declined at this time) Start: 07-15-2024 Urine microalbumin profile DTa P,Tdap,Td Vaccine (2 - Td or Tdap) [facility] Comment on above: Postponed from 08/14 (Declined at this time) Start: 07-07-2024 Screening for malign ant neoplasm of breast Mammogram Screening [facility] Start: 07-01-2024 End: 07-01-2024 ambulatory 07/01/2024 8:00 AM [facility] Hematology/Oncology [address] [place] [address] Q3WK CARBO/TAXOL/LAB & OV EXP 10/05/24* Hematology/Oncology Comment on above: Q3WK CARBO/TAXOL/LAB & OV EXP 10/05/24* Start: 06-30-2024 End: 09-29-2024 CBC W Auto Differential panel - Blood COMPLETE BLOOD COUNT AND DIFFERENTIAL Lab STAT High grade ovarian cancer (HCC) Expected: 06/30/2024, Expires: 09/29/2024 [facility] Work Phone: Comment on above: Expected: 06/30/2024 , Expires: 09/29/2024 Start: 06-30-2024 End: 09-29-2024 Prealbumin [Mass/volume] in Serum or Plasma PREALBUMIN Lab Routine Inadequate nutrition Expected: 06/30/2024, Expires: 09/29/2024 [facility] Comment on above: Expected: 06/30/2024 , Expires: 09/29/2024 Start: 06-30-2024 End: 06-30-2024 ambulatory Patricio [place] [facility] Laboratory Comment on above: CBC/?LABS* OV/LABS EARLY/CHEMO 07/01* OV/LABS EARLY/CHEMO 07/01/CT 06/23* Start: 06-23-2024 End: 06-23-2024 Patient encounter procedure Cat Scan Comment on above: 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.9] Start: 06-18-2024 End: 06-18-2024 Nutrition therapy 06/18/2024 1:30 PM EDT Education Nutrition Therapy [address] [place] [place] [address] Estefany Valerio, RD [address] [place] [address] f/u ostomy/ weight loss Nutrition Therapy Comment on above: f/u ostomy/ weight l oss Start: 06-15-2024 Lipid 1996 panel - S anita or Plasma Lipid Screening [facility] Start: 06-15-2024 Lipid panel Lipid Screening [facility] Start: 06-15-2024 LIPID SCREEN LIPID SCREEN [facility] Start: 06-15-2024 End: 09-14-2024 MISC SEND OUT TST 1 MISC SEND OUT TST 1 Lab Routine High grade ovarian cancer (HCC) Expected: 06/15/2024, Expires: 09/14/2024 [facility] Work Phone: Comment on above: Expected: 06/15/2024 , Expires: 09/14/2024 Start: 06-15-2024 End: 06-15-2024 ambulatory [facility] Comment on above: Abdominal bloating [ R14.0] Start: 06-11-2024 End: 06-11-2024 ambulatory Hematology/Oncology Comment on above: Q3WK CARBO/TAXOL/LAB & OV //AUTH EXP ?* Q3WK CARBO/TAXOL/LAB & OV 9/3/AUTH EXP 10/05/24* Q3WK CARBO/TAXOL/LAB & OV /3/AUTH EXP 10/05/24* ct 2 weeks after this cycle per 05/18 avs LAB* (SO)CBC Q3WK CARBO/T AXOL/LAB & OV 06/08/AUTH EXP 10/05/24* ct 2 weeks after this cycle per 05/18 avs Start: 06-09-2024 End: 06-09-2024 ambulatory 06/09/2024 8:30 AM EDT Infusion Center Hematology/Oncology [address] [place] [address] Q3WK CARBO/TAXOL/LAB & OV 06/08/AUTH EXP ?* Hematology/Oncology Comment on above: Q3WK CARBO/TAXOL/LAB & OV 06/08/AUTH EXP ?* Start: 06-08-2024 End: 06-08-2024 ambulatory Patricio Silva [facility] Laboratory Comment on above: CBC/?LABS* OV/LABS EARLY/CHEMO 05/19* OV/LABS EARLY/CHEMO 06/11* Start: 06-06-2024 Covid-19 Vaccine () Covid-19 Vaccine () [facility] Start: 06-06-2024 Covid-19 Vaccine () Covid-19 Vaccine () [facility] Start: 06-06-2024 Influenza vaccination Influenza Vacc ine (#1) [facility] Start: 06-04-2024 Screening for osteoporosis Bone Dens ity Screening [facility] Start: 05-27-2024 End: 05-27-2024 Patient encounter procedure 05/27/2024 10:00 AM EDT Appointment 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 DC or get more orders. EOC 06/13. [facility] Comment on above: [id number] [place] P elvic mass-new dx of most likely ACLS SPECIALIST type CA, new ileostomy.Pt wants to be independent with management and is willing to learn. DC or get more orders. EOC 06/13. Start: 05-24-2024 End: 05-24-2024 Patient encounter procedure 05/24/2024 9:00 AM EDT Appointment 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 DC or get more orders. EOC 06/13. [facility] Comment on above: [phone] [place] P elvic mass-new dx of most likely ACLS SPECIALIST type CA, new ileostomy.Pt wants to be independent with management and is willing to learn. DC or get more orders. EOC 06/13. 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 Next to last SN vs, NOMNC? [facility] Comment on above: [phone] [place] P elvic mass-new dx of most likely ACLS SPECIALIST type CA, new ileostomy.Pt wants to be independent with management and is willing to learn. Next to last SN vs, NOMNC? Start: 05-19-2024 End: 05-19-2024 ambulatory Hematology/Oncology Comment on above: Q3WK CARBO/TAXOL/LAB & OV 05/18/AUTH EXP ?* Q3WK CARBO/TAXOL/LAB & OV 05/18/AUTH EXP 10/05/24* Start: 05-18-2024 End: 05-18-2024 Nutrition therapy 05/18/2024 12:30 PM EDT Education Nutrition Therapy [address] [place] [address] [place] [address] fu est after first appt Nutrition Therapy Comment on above: fu est after first a ppt Start: 05-18-2024 End: 05-18-2024 ambulatory Patricio Silva [facility] Laboratory Comment on above: CBC/?LABS* OV/LABS EARLY/CHEMO 05/19* CBC/CMP/CA 125/UA (SO)CBC/CMP(S)/MG(S) /CA 125/UA Start: 05-17-2024 End: 05-17-2024 Home visit 05/17/2024 10:00 AM EDT Home Care Visit [facility] [address] [place] [address] Avril Graham RN [address] [place] [address] [place] 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 Next to last SN vs, NOMNC? [facility] Comment on above: [id number] [place] P elvic mass-new dx of most likely ACLS SPECIALIST type CA, new ileostomy.Pt wants to be independent with management and is willing to learn. Next to last SN vs, NOMNC? Start: 05-13-2024 End: 05-13-2024 Home visit [facility] Comment on above: [phone] [place] P elvic mass-new dx of most likely ACLS SPECIALIST type CA, new ileostomy.Pt wants to be independent with management and is willing to learn. 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 [facility] Comment on above: [phone] [place] P elvic mass-new dx of most likely ACLS SPECIALIST type CA, new ileostomy.Pt wants to be independent with management and is willing to learn. Start: 05-06-2024 End: 05-06-2024 Home visit 05/06/2024 12:00 PM EDT Home Care Visit 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 [facility] Comment on above: [phone] [place] P elvic mass-new dx of most likely ACLS SPECIALIST type CA, new ileostomy.Pt wants to be independent with management and is willing to learn. Start: 05-03-2024 End: 05-03-[address]24 [address] [facility] Comment on above: [phone] [place] P elvic mass-new dx of most likely ACLS SPECIALIST type CA, new ileostomy.Pt wants to be independent with management and is willing to learn. Start: 04-29-2024 End: 04-29-[address] [facility] Care Comment on above: [phone] [place] P elvic mass-new dx of most likely ACLS SPECIALIST type CA, new ileostomy.Pt wants to be independent with management and is willing to learn. Start: 04-28-2024 End: 04-28-2024 ambulatory [facility] Laboratory Comment on above: CBC/?LABS* CBC/START Q3WK CARBO /TAXOL/AUTH EXP ?* CBC/START Q3WK CARBO /TAXOL/AUTH EXP10/05/24 CREATININE(S)* STATCR/ MAY USE 04/22 LABS /START Q3WK CARBO/TAXOL/AUTH EXP10/05/24 Start: 04-27-2024 End: 04-27-2024 Patient encounter procedure 04/27/2024 3:30 PM EDT Education Nutrition Therapy [address] [place] [address] Estefany Valerio, RD [address] [place] [address] consult Nutrition Therapy Comment on above: consult Start: 04-26-2024 End: 04-26-2024 ambulatory 04/26/2024 10:30 AM EDT Infusion Center Hematology/Oncology [address] [place], [place] [id number] Wstr, Surgical Brace Maker [facility] [address] [place], [place] [address] CHEMO ED - CARBO/TAXOL* Hematology/Oncology Comment on above: CHEMO ED - CARBO/TAX OL* Start: 04-26-2024 End: 04-26-2024 Home visit [facility] Comment on above: [phone] [place] P elvic mass-new dx of most likely ACLS SPECIALIST type CA, new ileostomy.Pt wants to be independent with management and is willing to learn. Start: 04-22-2024 End: 04-22-2024 Home visit [facility] Comment on above: [phone] [place] P elvic mass-new dx of most likely ACLS SPECIALIST type CA, new ileostomy.Pt wants to be independent with management and is willing to learn. [phone] [place] P elvic mass-new dx of most likely ACLS SPECIALIST type CA, new ileostomy.Pt wants to be [...] Ag 125 [Units/volume] in Serum or Plasma [facility] Comment on above: Expected: 04/22/2024 , Expires: 07/22/2024 Start: 04-22-2024 End: 07-22-2024 Ferritin [Mass/volume] in Serum or Plasma [facility] Comment on above: Expected: 04/22/2024 , Expires: 07/22/2024 Start: 04-22-2024 End: 07-22-2024 Iron and Iron binding capacity panel - Serum or Plasma [facility] Work Phone: Comment on above: Expected: 04/22/2024 , Expires: 07/22/2024 Start: 04-22-2024 End: 04-22-2024 ambulatory 04/22/2024 9:10 AM EDT Visit (SP) Office Hematology/Oncology [address] [place], [place] [phone] Nile Hall DO [address] [facility] [place], [place] [id number] REORDERING CLERK/High grade ovarian cancer (HCC) [C56.9]/REF.FREDIS STROUD* Hematology/Oncology Comment on above: REORDERING CLERK/High grade ovaria n cancer (HCC) [C56.9]/REF.FREDIS STROUD* Start: 04-19-2024 End: 04-19-2024 Home visit 04/19/2024 4:00 PM EDT Home Care Visit [facility] [address] [place] [address] Avril Graham RN [address] [place] [id number] [place] Pelvic mass, new ileostomy. See at end of day today because of AM appt. [facility] Comment on above: [id number] [place] P elvic mass, new ileostomy. See at end of day today because of AM appt. Start: 04-19-2024 End: 04-19-2024 ambulatory 04/19/2024 11:30 AM EDT Visit (SP) Office Gynecology [address] [place] [address] [place] [address] [place] [address] POST OP - STAPLE REMOVAL Gynecology Comment on above: POST OP - STAPLE REM OVAL Start: 04-16-2024 End: 04-16-2024 ambulatory 04/16/2024 11:00 AM EDT [facility] Gy[facility]cology [address] [place] [address] Carey Elias APRN.[facility] [address] [place] [address] TELEVISIT - POST OP Gynecology Comment on above: TELEVISIT - POST OP Start: 04-09-2024 End: 04-09-2024 Admission to same day surgery center 04/09/2024 12:46 PM EDT - 04/09/2024 4:16 PM EDT Surgery Admitting [address] [place] [address] [place] [address] [place] [address] HYSTERECTOMY ABDOMINAL TOTAL WITH SALPINGO-OOPHORECTOMY BILATERAL Admitting Comment on above: HYSTERECTOMY ABDOMIN AL TOTAL WITH SALPINGO-OOPHORECTOMY BILATERAL Start: 04-09-2024 Subsequent hospital visit by physician 04/09/2024 12:46 PM EDT Hospital Encounter Admitting [address] [place] [address] [place] [address] [place] [address] Pelvic mass [R19.00] Admitting Comment on above: Pelvic mass [R19.00] Start: 04-09-2024 End: 04-09-2024 Total abdominal hysterect w/wo rmvl tube ovary HYSTERECTOMY ABDOMINAL TOTAL WITH SALPINGO-OOPHORECTOMY BILATERAL Pelvic mass 04/09/2024 12:46 PM EDT [facility] Start: 04-09-2024 End: 04-09-2024 Admission to same day surgery center 04/09/2024 7:30 AM EDT - 04/09/2024 10:45 AM EDT Surgery Admitting [address] [place] [address] [place] [address] [place] [address] HYSTERECTOMY ABDOMINAL TOTAL WITH SALPINGO-OOPHORECTOMY BILATERAL Admitting Comment on above: HYSTERECTOMY ABDOMIN AL TOTAL WITH SALPINGO-OOPHORECTOMY BILATERAL Start: 04-09-2024 Subsequent hospital visit by physician 04/09/2024 7:30 AM EDT Hospital Encounter Admitting [address] [place] [address] [place] [address] [place] [address] Pelvic mass [R19.00] Admitting Comment on above: Pelvic mass [R19.00] Start: 04-09-2024 End: 04-09-2024 Total abdominal hysterect w/wo rmvl tube ovary HYSTERECTOMY ABDOMINAL TOTAL WITH SALPINGO-OOPHORECTOMY BILATERAL Pelvic mass 04/09/2024 7:30 AM EDT [facility] Start: 04-05-2024 End: 04-05-2024 ambulatory 04/05/2024 2:50 PM EDT Visit (SP) Office Gynecology [address] [place] [address] [place] [address] [place] [address] POST OP - STAPLE REMOVAL Gynecology Comment on above: POST OP - STAPLE REM OVAL Start: 04-02-2024 End: 04-02-2024 Anesthesia consultation 04/02/2024 3:10 PM EDT PAT Pre Anesthesia [address] [place] [address] 2, [place] [place] [address] [place] [address] [id number] Pre Anesthesia Comment on above: [id number] Start: 03-24-2024 End: 03-24-2024 Patient encounter procedure Cat Scan Comment on above: Generalized abdomina l pain [R10.84]; Abdominal bloating [R14.0] Start: 03-19-2024 End: 03-19-2024 ambulatory 03/19/2024 11:30 AM EDT [facility]ne[facility] [address] [place] [address] Carey Elias APRN.CLAMP OPERATOR [address] [place] [address] POST OP Gynecology Comment on above: POST OP Start: 03-17-2024 End: 03-17-2024 Admission to same day surgery center 03/17/2024 12:53 PM EDT - 03/17/2024 4:23 PM EDT Surgery Admitting [address] [place] [address] [place] [address] [place] [address] HYSTERECTOMY ABDOMINAL TOTAL WITH SALPINGO-OOPHORECTOMY BILATERAL Admitting [...] 1:50 PM EDT PAT Pre Anesthesia [address] [place] [address] [id number] Pre Anesthesia Comment on above: [id number] Start: 03-16-2024 End: 03-16-2024 ambulatory 03/16/2024 9:00 AM EDT [facility] Oncology [address] [place] [address] 4, [employer] [place] [address] [place] [address] TEACHING Gynecology Oncology Comment on above: TEACHING Start: 03-16-2024 End: 03-16-2024 Patient encounter procedure 03/16/2024 8:00 AM EDT Appointment Cat Scan [address] [place] [address] CT - CHEST WO -CONTRAST Cat Scan Comment on above: CT - CHEST WO -CONTR AST Start: 03-15-2024 End: 06-14-2024 Cancer Ag 19-9 [Units/volume] in Serum or Plasma [facility] Comment on above: Expected: 03/15/2024 , Expires: 06/14/2024 Start: 03-15-2024 End: 06-14-2024 Carcinoembryonic Ag [Mass/volume] in Serum or Plasma [facility] Work Phone: Comment on above: Expected: 03/15/2024 , Expires: 06/14/2024 Start: 03-15-2024 End: 03-15-2025 CONFIRM BLOOD TYPE [facility] Work Phone: Comment on above: Expected: 03/15/2024 (Approximate), Expires: 03/15/2025 Start: 03-15-2024 End: 03-15-2024 Manual pelvic examination 03/15/2024 2:00 PM EDT Visit (SP) Office Gynecology [address] [place] [address] [place] [address] [place] [address] Pelvic mass [R19.00] Gynecology Comment on above: Pelvic mass [R19.00] Start: 03-08-2024 End: 06-07-2024 25-hydroxyvitamin D3 [Mass/volume] in Serum or Plasma VITAMIN D 25 HYDROXY Lab Routine Vitamin D deficiency Expected: 03/08/2024, Expires: 06/07/2024 [facility] Comment on above: Expected: 03/08/2024 , Expires: 06/07/2024 Start: 03-08-2024 End: 06-07-2024 CBC panel - Blood by Automated count COMPLETE BLOOD COUNT Lab Routine Generalized abdominal pain Expected: 03/08/2024, Expires: 06/07/2024 [facility] Comment on above: Expected: 03/08/2024 , Expires: 06/07/2024 Start: 03-08-2024 End: 06-07-2024 Comprehensive metabolic 2000 panel - Serum or Plasma COMPREHENSIVE METABOLIC PANEL Lab Routine Generalized abdominal pain Expected: 03/08/2024, Expires: 06/07/2024 [facility] Comment on above: Expected: 03/08/2024 , Expires: 06/07/2024 Start: 03-08-2024 End: 06-07-2024 Erythrocyte sedimentation rate SEDIMENTATION RATE, WESTERGREN Lab Routine Generalized abdominal pain Expected: 03/08/2024, Expires: 06/07/2024 [facility] Comment on above: Expected: 03/08/2024 , Expires: 06/07/2024 Start: 10-06-2023 Advance Directive Discussion Advance Directive Discussion [facility] Start: 10-06-2023 Behavioral Health Screening Behavioral Health Screening [facility] Start: 10-06-2023 Depression Assessment Depression Ass essment [facility] Start: 10-06-2023 zzBehavioral Health Screening zzBehavioral Health Screening [facility] Start: 06-28-2023 End: 08-28-2023 25-hydroxyvitamin D3 [Mass/volume] in Serum or Plasma VITAMIN D 25 HYDROXY Lab Routine Age-related osteoporosis without current pathological fracture Encounter for long-term current use of medication Expected: 06/28/2023 (Approximate), Expires: 08/28/2023 [facility] Work Phone: Comment on above: Expected: 06/28/2023 (Approximate), Expires: 08/28/2023 Start: 06-28-2023 Adult depression scr eening assessment DEPRESSION SCREENING [facility] Start: 06-28-2023 End: 08-28-2023 CBC panel - Blood by Automated count CBC Lab Routine Age-related osteoporosis without current pathological fracture Encounter for long-term current use of medication Expected: 06/28/2023 (Approximate), Expires: 08/28/2023 [facility] Work Phone: Comment on above: Expected: 06/28/2023 (Approximate), Expires: 08/28/2023 Start: 06-28-2023 End: 08-28-2023 Comprehensive metabolic 2000 panel - Serum or Plasma COMP METABOLIC PANEL Lab Routine Age-related osteoporosis without current pathological fracture Encounter for long-term current use of medication Expected: 06/28/2023 (Approximate), Expires: 08/28/2023 [facility] Work Phone: Comment on above: Expected: 06/28/2023 (Approximate), Expires: 08/28/2023 Start: 06-28-2023 COVID-19 VACCINE (5 - Booster for Moderna series) COVID-19 VACCINE (5 - Booster for Moderna series) [facility] Comment on above: Postponed from 06/21 (Declined at this time) Start: 06-28-2023 Urine microalbumin profile [facility] Comment on above: Postponed from 08/14 (Declined at this time) Start: 06-27-2023 SHINGRIX VACCINE (2 of 3) CHACON GRIX VACCINE (2 of 3) [facility] Comment on above: Postponed from 01/30 (Insurance Coverage) Start: 06-06-2023 Covid-19 Vaccine (6 - 2022-24 season) Covid-19 Vaccine (6 - 2022-24 season) [facility] Start: 06-06-2023 Influenza vaccination Influenza Vacc ine (#1) [facility] Start: 04-04-2023 Influenza vaccination INFLUENZA (#1) [facility] Comment on above: Postponed from 06/06 (Declined at this time) Start: 12-05-2022 Covid-19 Vaccine (6 - Moderna series) Covid-19 Vaccine (6 - Moderna series) [facility] Start: 10-06-2022 ADVANCE DIRECTIVE DISCUSSION ADVANCE DIRECTIVE DISCUSSION [facility] Start: 10-06-2022 DEPRESSION ASSESSMENT DEPRESSION ASS ESSMENT [facility] Start: 06-28-2022 Mammography [facility] Start: 06-26-2022 Adult depression scr eening assessment DEPRESSION SCREENING [facility] Start: 06-26-2022 SHINGRIX VACCINE (2 of 3) CHACON GRIX VACCINE (2 of 3) [facility] Comment on above: Postponed from 01/30 (Declined at this time) Start: 09-10-2022 DIABETES SCREEN DIABETES SCREEN [facility] Start: 06-06-2022 Influenza vaccination INFLUENZA (#1) [facility] Start: 10-06-2021 ADVANCE DIRECTIVE DISCUSSION ADVANCE DIRECTIVE DISCUSSION [facility] Start: 10-06-2021 DEPRESSION ASSESSMENT DEPRESSION ASS ESSMENT [facility] Start: 08-14-2021 Urine microalbumin profile [facility] Start: 06-05-2021 COVID-19 VACCINE (3 - Booster for Moderna series) COVID-19 VACCINE (3 - Booster for Moderna series) [facility] Start: 02-06-2018 Screening for malign ant neoplasm of cervix Cervical Cancer Screening [facility] Start: 01-30-2017 Shingrix Vaccine (1 of 2) Chacon grix Vaccine (1 of 2) [facility] Start: 2012 RSV Vaccine (1 - 1-d ose 60+ series) RSV Vaccine (1 - 1-dose 60+ series) [facility] Start: 2012 RSV Vaccine (1 - Ris k 60-74 years 1-dose series) RSV Vaccine (1 - Risk 60-74 years 1-dose series) [facility] Start: 1997 COLOGUARD (FIT-DNA) COLOGUARD (FIT-D NA) [facility] Start: [address] COLONOGRAPHY [facility] Start: 1997 FECAL OCCULT BLOOD FECAL OCCULT BLOO D [facility] Start: 1997 Screening for malign ant neoplasm of colon [facility] Start: [address] [facility] Start: 1970 Anxiety Screening Anxiety Screening [facility] Start: 1970 Depression Screening Depression Scre ening [facility] CARIS MS TUMOR SEEK HYBRID CARIS MS TUMOR SEEK HYBRID Lab Routine High grade ovarian cancer (HCC) 04/22/2024 2:06 PM EDT [facility] End: 03-22-2026 CBC W Auto Differential panel - Blood COMPLETE BLOOD COUNT AND DIFFERENTIAL Lab STAT High grade ovarian cancer (HCC) Once per week for 12 Occurrences starting 03/22/2025 until 03/22/2026 [facility] Work Phone: Comment on above: Once per week for 12 Occurrences starting 03/22/2025 until 03/22/2026 End: 08-27-2026 CBC W Auto Differential panel - Blood COMPLETE BLOOD COUNT AND DIFFERENTIAL Lab STAT High grade ovarian cancer (HCC) Anemia, unspecified type Once per week for 52 Occurrences starting 06/01/2025 until 06/01/2026 [facility] Work Phone: Comment on above: Once per week for 52 Occurrences starting 06/01/2025 until 06/01/2026 End: 04-07-2025 CT Abdomen and Pelvis W contrast IV CT ABD/PEL W IVCON Radiology Routine Generalized abdominal pain Abdominal bloating 1 Occurrences starting 03/08/2024 until 04/07/2025 [facility] Work Phone: Comment on above: 1 Occurrences starti ng 03/08/2024 until 04/07/2025 End: 06-18-2025 CT Abdomen and Pelvis W contrast IV CT ABD/PEL W IVCON Radiology Routine High grade ovarian cancer (HCC) 1 Occurrences starting 05/18/2024 until 06/18/2025 [facility] Comment on above: 1 Occurrences starti ng 05/18/2024 until 06/18/2025 End: 06-17-2025 CT Abdomen and Pelvis W contrast IV CT ABD/PEL W IVCON Radiology Routine High grade ovarian cancer (HCC) 1 Occurrences starting 05/18/2024 until 06/17/2025 [facility] Work Phone: Comment on above: 1 Occurrences starti ng 05/18/2024 until 06/17/2025 CT Abdomen and Pelvi s W contrast IV CT ABD/PEL W IVCON Radiology Routine High grade ovarian cancer (HCC) 06/23/2024 11:23 AM EDT [facility] End: 09-10-2025 CT Abdomen and Pelvis W contrast IV CT ABD/PEL W IVCON Radiology Routine High grade ovarian cancer (HCC) 1 Occurrences starting 08/11/2024 until 09/10/2025 [facility] Work Phone: Comment on above: 1 Occurrences starti ng 08/11/2024 until 09/10/2025 CT Abdomen and Pelvi s W contrast IV CT ABD/PEL W IVCON Radiology Routine High grade ovarian cancer (HCC) 08/25/2024 9:21 AM EST [facility] Work Phone: End: 12-30-2025 CT Abdomen and Pelvis W contrast IV CT ABD/PEL W IVCON Radiology Routine High grade ovarian cancer (HCC) 1 Occurrences starting 12/02/2024 until 12/30/2025 [facility] Comment on above: 1 Occurrences starti ng 12/02/2024 until 12/30/2025 CT Abdomen and Pelvi s W contrast IV CT ABD/PEL W IVCON Radiology Routine High grade ovarian cancer (HCC) 12/16/2024 10:27 AM [facility] End: 07-07-2026 CT Abdomen and Pelvis W contrast IV CT ABD/PEL W IVCON Radiology Routine High grade ovarian cancer (HCC) 1 Occurrences starting 06/07/2025 until 07/07/2026 [facility] Work Phone: Comment on above: 1 Occurrences starti ng 06/07/2025 until 07/07/2026 CT Abdomen and Pelvi s W contrast IV CT ABD/PEL W IVCON Radiology Routine High grade ovarian cancer (HCC) 06/21/2025 10:30 AM [facility] Work Phone: End: 06-17-2025 CT Chest W contrast IV CT CHEST W IVCON Radiology Routine High grade ovarian cancer (HCC) 1 Occurrences starting 05/18/2024 until 06/17/2025 [facility] Work Phone: Comment on above: 1 Occurrences starti ng 05/18/2024 until 06/17/2025 CT Chest W contrast IV CT CHEST W IVCON Radiology Routine High grade ovarian cancer (HCC) 06/23/2024 11:23 AM [facility] Work Phone: End: 09-10-2025 CT Chest W contrast IV CT CHEST W IVCON Radiology Routine High grade ovarian cancer (HCC) 1 Occurrences starting 08/11/2024 until 09/10/2025 [facility] Comment on above: 1 Occurrences starti ng 08/11/2024 until 09/10/2025 CT Chest W contrast IV CT CHEST W IVCON Radiology Routine High grade ovarian cancer (HCC) 08/25/2024 9:21 AM [facility] End: 01-01-2026 CT Chest W contrast IV CT CHEST W IVCON Radiology Routine High grade ovarian cancer (HCC) 1 Occurrences starting 12/02/2024 until 01/01/2026 [facility] Work Phone: Comment on above: 1 Occurrences starti ng 12/02/2024 until 01/01/2026 CT Chest W contrast IV CT CHEST W IVCON Radiology Routine High grade ovarian cancer (HCC) 12/16/2024 10:27 AM EDT [facility] Work Phone: End: 07-07-2026 CT Chest W contrast IV CT CHEST W IVCON Radiology Routine High grade ovarian cancer (HCC) 1 Occurrences starting 06/07/2025 until 07/07/2026 [facility] Comment on above: 1 Occurrences starti ng 06/07/2025 until 07/07/2026 CT Chest W contrast IV CT CHEST W IVCON Radiology Routine High grade ovarian cancer (HCC) 06/21/2025 10:30 AM EDT [facility] End: 04-14-2025 CT Chest WO contrast CT CHEST WO IVCON Radiology Routine Pelvic mass 1 Occurrences starting 03/15/2024 until 04/14/2025 [facility] Comment on above: 1 Occurrences starti ng 03/15/2024 until 04/14/2025 CT Chest WO contrast CT CHEST WO IVCON Radiology Routine Pelvic mass 03/16/2024 8:30 AM EDT [facility] End: 09-10-2025 DBT Breast - bilateral screening XOCHILT SCREENING W [facility]IQUI Radiology Routine Encounter for screening mammogram for breast cancer 1 Occurrences starting 08/11/2024 until 09/10/2025 [facility] Work Phone: Comment on above: 1 Occurrences starti ng 08/11/2024 until 09/10/2025 End: 03-15-2025 ECG COMPLETE ECG COMPLETE ECG Routine Pelvic mass 1 Occurrences starting 03/15/2024 until 03/15/2025 [facility] Comment on above: 1 Occurrences starti ng 03/15/2024 until 03/15/2025 Patient referral [facility] Work Phone: REFER FOR ADMIT INTERVIEW REFER FOR ADMIT INTERVIEW Procedures Routine Preop examination Ordered: 03/15/2024 [facility] Comment on above: Ordered: 03/15/2024 REFER FOR ADMIT INTERVIEW REFER FOR ADMIT INTERVIEW Procedures Routine High grade ovarian cancer (HCC) Preop examination Ordered: 09/01/2024 [facility] Comment on above: Ordered: 09/01/2024 End: 09-13-2023 Screening mammography bi 2-view breast inc cad XOCHILT SCREENING Radiology Routine Encounter for screening mammogram for breast cancer 1 Occurrences starting 08/14/2022 until 09/13/2023 [facility] Work Phone: Comment on above: 1 Occurrences starti ng 08/14/2022 until 09/13/2023 Total abdominal hyst erect w/wo rmvl tube ovary HYSTERECTOMY ABDOMINAL TOTAL WITH SALPINGO-OOPHORECTOMY BILATERAL Pelvic mass [facility] End: 04-02-2025 XR Abdomen Supine and Upright XR ABDOMEN 2V ROUTINE SUPINE W UPRIGHT/DECUB/CTL Radiology Routine Generalized abdominal pain Abdominal bloating 1 Occurrences starting 03/03/2024 until 04/02/2025 [facility] Work Phone: Comment on above: 1 Occurrences starti ng 03/03/2024 until 04/02/2025 XR Abdomen Supine an d Upright XR ABDOMEN 2V ROUTINE SUPINE W UPRIGHT/DECUB/CTL Radiology Routine Generalized abdominal pain Abdominal bloating 03/04/2024 8:10 AM EDT [facility] Immunizations Immunization Date Immunization Notes Care Provider Lizzette church 08-23-2024 influenza, high dose seasonal, preservative-free Treatment Wstr Work Phone: [facility] 08-23-2024 influenza virus vacc ine, unspecified formulation Nile Hall DO Work Phone: [facility] 07-15-2023 influenza (HD-IIV4) vaccine, age 65+ yr, high dose, quadrivalent, PF (FLUZONE HIGH-DOSE) Cathy Coles APRN.CLAMP OPERATOR Work Phone: [facility] 07-15-2023 influenza virus vacc ine, unspecified formulation Liz Prara RN Work Phone: [facility] 09-04-2022 influenza virus vacc ine, unspecified formulation Romel Michelle MD Work Phone: [facility] 08-02-2021 influenza (aIIV4) vaccine, age 65+ yr, quadrivalent, PF (FLUAD QUADRIVALENT) Romel Michelle MD Work Phone: [facility] 08-02-2021 influenza, high dose seasonal, preservative-free [facility] Work Phone: 07-12-2020 influenza (aIIV4) vaccine, age 65+ yr, quadrivalent, PF (FLUAD QUADRIVALENT) Romel Michelle MD Work Phone: [facility] 06-22-2019 Seasonal trivalent influenza vaccine, adjuvanted, preservative free Romel Michelle MD Work Phone: [facility] 06-15-2019 pneumococcal polysaccharide vaccine, 23 valent [facility] 08-11-2018 Influenza, injectabl e, Madin Linda Canine Kidney, preservative free, quadrivalent [facility] 01-19-2018 pneumococcal conjuga te vaccine, 13 valent [facility] 12-05-2016 zoster vaccine, live [facility] 07-15-2016 influenza, seasonal, injectable [facility] 08-14-2011 tetanus toxoid, redu almas diphtheria toxoid, and acellular pertussis vaccine, adsorbed [facility] Work Phone: Payers Date Payer Category Payer Self-pay [id number] 2023 Private Health Insurance [facility] MEDICARE [id number] 2021 Medicare (Managed Care) [employer] AR DICARE [id number] 2021 Private Health Insurance [facility] [id number] 2018 Medicare [employer] MEDICARE A ETNA MEDICARE PPO [id number] 2018-Present [phone] [address] [place] [address] [facility] [id number] 2018 Medicare [id number] 1950 Unknown [id number] Private Health Insurance [employer] [id number] Unknown [id number] Unknown [id number] Unknown [id number] Unknown [id number] Unknown [id number] Unknown [id number] Unknown [id number] Unknown [id number] Unknown [id number] Social History Date Type Detail Facility Start: 07-11-2011 End: 04-22-2025 Tobacco smoking status NHIS Never smoked tobacco [facility] Start: 06-26-2021 End: 06-14-2025 Alcohol intake Current drinker of alcohol (finding) [facility] Start: 06-18-2020 History SDOH Alcohol Frequency 2 [facility] Start: 06-18-2020 History SDOH Alcohol Std Drinks 1 [facility] Start: 12-15-2015 History SDOH Alcohol Comment social [facility] Start: 06-18-2020 History SDOH Social Connections Phone 3 [facility] Start: 06-18-2020 History SDOH Physica l Activity DPW 5 [facility] Start: 06-18-2020 Education 18 [facility] Start: 1950 Sex Assigned At Not on file [facility] Start: 07-11-2011 Tobacco use and exposure Smokeless tobacco non-user [facility] Start: 06-18-2022 End: 06-28-2022 Exposure to SARS-CoV-2 (event) Not sure [facility] Start: 09-04-2021 Tobacco smoking stat us MNIS Unknown if ever smoked [facility] Work Phone: Start: 1950 Sex Assigned At Female W [facility] Work Phone: Start: 06-18-2020 End: 07-15-2023 History of Social function [facility] Start: 06-18-2020 End: 07-15-2023 Social connection and isolation panel [facility] Do you belong to any clubs or organizations such as jain groups, unions, fraternal or athletic groups, or school groups? Yes [facility] Are you now , , , , never or living with a partner? [facility] How often to you hav e a drink containing alcohol? Monthly or less [facility] How many standard drinks containing alcohol do you have on a typical day? 1 or 2 [facility] How often do you hav e 6 or more drinks on 1 occasion? Never [facility] Start: 09-06-2012 How hard is it for y ou to pay for the very basics like food, housing, medical care, and heating Not hard at all [facility] Do you feel stress - tense, restless, nervous, or anxious, or unable to sleep at night because your mind is troubled all the time - these days [OSQ] Only a little [facility] (I/We) worried beka er (my/our) food would run out before (I/we) got money to buy more. Never true [facility] In the past 12 month s, was there a time when you were not able to pay the mortgage or rent on time? No [facility] Start: 04-26-2024 Gender identity Identifies as female gender (finding) [facility] Start: 04-26-2024 Sexual orientation Heterosexual (cheryl valencia) [facility] Start: 12-21-2024 End: 01-10-2025 Sex Female (finding) [facility] NEGATED: Highlighted row Not [facility] Goals Date Patient Goal Desired Activity /State Functional Status Date Assessment Result Facility 06-01-2025 Total score [AUDIT-C] 0 06/01/20 25 10:04 AM Kirt Vargas MA [facility] 09-13-2024 Are you deaf, or do you have serious difficulty hearing No 09/13/2024 3:46 PM SALMA Rosas Aba, RN No [facility] 09-13-2024 Are you blind, or do you have serious difficulty seeing, even when wearing glasses No 09/13/2024 3:46 PM SALMA Rosas Aba, RN No [facility] 09-13-2024 Do you have serious difficulty walking or climbing stairs No 09/13/2024 3:46 PM SALMA Rosas Aba, RN No [facility] 09-13-2024 Do you have difficul ty dressing or bathing No 09/13/2024 3:46 PM SALMA Rosas Aba, RN No [facility] 09-13-2024 Because of a physica l, mental, or emotional condition, do you have difficulty doing errands alone such as visiting a physician's office or shopping No 09/13/2024 3:46 PM SALMA Rosas Aba, RN No [facility] Mental Status Date Assessment Result Facility 06-14-2025 Cognitive function Awake;Alert;A ppropriate;Fol lows Commands [facility] Work Phone: 04-26-2025 Cognitive function Voice/Name;Touch/Shaki ng [facility] Work Phone: 01-10-2025 Cognitive function Voice/Name [facility] Work Phone: 12-21-2024 Cognitive function Level Of Cons ciousness Awake;Drowsy [facility] Work Phone: 12-21-2024 Cognitive function Arousable To Voice/Nam e [facility] Work Phone: 09-13-2024 Because of a physica l, mental, or emotional condition, do you have serious difficulty concentrating, remembering, or making decisions No 09/13/2024 3:46 PM SALMA Rosas Aba, RN No [facility] Clinical Notes 07-05-2008 to 08-15-2025 Bushra Liu, (Stacey) - 06/21/2025 10:00 AM Liz Chavira LPN - 06/21/2025 9:03 AM Liz Chavira LPN - 06/20/2025 10:59 AM Mer Longo LPN - 06/17/2025 10:21 AM EDT Note Date & Type Note Facility 08-15-[address] [facility] 08-12-[address] [facility] 07-29-[address] [facility] 07-20-[address] [facility] 07-15-[address] [facility] 07-15-[address] [facility] 07-14-[address] [facility] 07-13-[address] [facility] 07-07-[address] [facility] 06-30-2025 Note HNO ID: [id number] Author: MER SMITH LPN Service: ? Author Type: Licensed Nurse Type: Progress Notes Filed: 06/30/2025 15:14 Note Text: Patient here for injection of B12. Given IM in left delt. Patient tolerated well. Mer Smith LPN [facility] 06-29-[address] [facility] 06-23-[address] [facility] 06-21-2025 History of Presen t illness Narrative Radiology Service Progress Note DATE OF SERVICE: June 21, 2025 TIME: 12:46 PM PATIENT IDENTITY VERIFICATION COMPLETED USING TWO (2) STANDARD IDENTIFIERS: Name and Date of confirmed by patient verbally. FALL SCREENING: Has the patient had 2 falls in the last year or 1 fall with injury or currently using an Ambulatory Assistive Device (Walker, Cane, Wheelchair, Crutches, etc.)? No PATIENT GENDER DATA: Assigned female at . status: : No status: NO. PATIENT RELEVANT IMPLANT DATA REVIEWED: Yes PATIENT PRESENTS WITH AN IMPLANTABLE OR ATTACHED CANVAS MARKER: No ALLERGIES: Reviewed and unchanged CONTRAST ALLERGY: NO. EXAM: CT -CONTRAST INDUCED NEPHROPATHY RISK FACTORS: Patient age > 60 years CREATININE: Creatinine Date Value Ref Range Status 06/01/2025 1.03 (H) 0.58 - 0.96 mg/dL Final 05/11/2025 1.07 (H) 0.58 - 0.96 mg/dL Final 04/25/2025 0.90 0.58 - 0.96 mg/dL Final Estimated Glomerular Filtration Rate Date Value Ref Range Status 06/01/2025 58 (L) >=60 mL/min/1.73m Final Comment: Estimated Glomerular Filtration [...] eGFR may not accurately reflect actual GFR. eGFR- Date Value Ref Range Status 06/15/2019 >60 Final P.O.C.T. RESULTS: POC done: Yes, See Lab Tab June 21, 2025 TREATMENT: N/A PERIPHERAL IV DATA: Ambulatory: A peripheral IV was started in the Left forearm with a Angio cath: 22 gauge. RADIOLOGY DEPARTMENT: CT; Exam(s) Completed: Chest Abdomen Pelvis. Anesthesia: No SIGNATURE: RT Maira(R) PATIENT NAME: Sal Bautista DATE: June 21, 2025 TIME: 12:46 PM documented in this encounter [facility] 06-21-[address] [facility] 06-21-[address] [facility] 06-21-2025 History of Presen t illness Narrative Patient presents with: Imm/Inj Pt is identified by name and birthdate: Yes. Allergies and medications reviewed. Latex allergy? No. Does this patient have: Unplanned weight loss or gain of greater than 10 pounds, or a change of appetite over the last year? No Does the patient have any concerns about safety in the home/falls? Not at risk for falls Has the patient fallen in the past year? No Does the patient have difficulty performing or completing routine daily living activities? No Does this patient have concerns about personal safety? No Is patient having pain? Pain: No=0 (pain 0 on a scale of 0-10). Health Maintenance: Reviewed and updated. Does patient have MyChart access or Caregiver proxy: yes Pt/Caregiver willingness and readiness to learn assessed: Yes. Barriers: none cyanocobalamin injection administered, left Deltoid, tolerated well, no immediate adverse reactions noted. Liz Dubose LPN documented in this encounter [facility] 06-20-[address] [facility] 06-20-2025 History of Presen t illness Narrative Patient presents with: Imm/Inj Pt is identified by name and birthdate: Yes. Allergies and medications reviewed. Latex allergy? No. Does this patient have: Unplanned weight loss or gain of greater than 10 pounds, or a change of appetite over the last year? No Does the patient have any concerns about safety in the home/falls? Not at risk for falls Has the patient fallen in the past year? No Does the patient have difficulty performing or completing routine daily living activities? No Does this patient have concerns about personal safety? No Is patient having pain? Pain: No=0 (pain 0 on a scale of 0-10). Health Maintenance: Reviewed and updated. Does patient have MyChart access or Caregiver proxy: yes Pt/Caregiver willingness and readiness to learn assessed: Yes. Barriers: none cyanocobalamin injection administered, right Deltoid, tolerated well, no immediate Liz Dubose LPN documented in this encounter [facility] 06-17-2025 Note HNO ID: [id number] Author: MER SMITH LPN Service: ? Author Type: Licensed Nurse Type: Progress Notes Filed: 06/17/2025 10:28 Note Text: Patient here for injection of B12. Given IM in left delt. Patient tolerated well. Mer Smith LPN [facility] 06-17-2025 History of Presen t illness Narrative Patient here for injection of B12. Given IM in left delt. Patient tolerated well. Mer Smith LPN documented in this encounter [facility] 06-15-2025 Note HNO ID: [id number] Author: MER SMITH LPN Service: ? Author Type: Licensed Nurse Type: Progress Notes Filed: 06/15/2025 15:58 Note Text: Patient here for an injection of B12. Given IM in left delt. Patient tolerated well. Mer Smith LPN [facility] 06-15-2025 History of Presen t illness Narrative Patient here for an injection of B12. Given IM in left delt. Patient tolerated well. Mer Smith LPN documented in this encounter [facility] 06-13-2025 Telephone encounter Note Pt scheduled for one unit of PRBC for tomorrow, 06/14/25 at 1230. Order faxed to [facility] and pt notified. Mer Smith LPN [facility] 06-13-2025 Miscellaneous Notes Pt scheduled for one unit of PRBC for tomorrow, 06/14/25 at 1230. Order faxed to [facility] and pt notified. Mer Smith LPN documented in this encounter [facility] 06-10-2025 Telephone encounter Note Patient called back and stated she is already scheduled on 06/21. Confirmed with patient she is still scheduled. Kellie Ferrera [facility] 06-10-2025 Miscellaneous Notes Patient called back and stated she is already scheduled on 06/21. Confirmed with patient she is still scheduled. Kellie Ferrera 2nd attempt Lvm for pt to call back and schedule ct. Maame Chaudhari Lvm for pt to call back and schedule CT scans. Maame Chaudhari Thank you. Order filed. Dr. Hall please sign pended orders. PSS please reach out to pt to get CT's scheduled. Liz Dubose LPN Sensitivity of CT may be low with that level of CA125, but agree needs checked. Please pend CT C/A/P with IV and PO contrast. Nile Hall DO Patient stated 7-10 days ago she felt bloated and had an increase in flatulence. Patient denies having any abdominal symptoms today. Patient stated at her OV yesterday she was feeling fine so she forgot to mention this to Dr. Hall. Patient sent a [employer] message to Dr. Buckner's office on 05/30 and his REORDERING CLERK suggested possibly getting a CT scan. Patient is asking if she should have a CT scan of her abdomen? Patient stated her CA 125 was 16 yesterday and previously it had been 12. Thank you. Yulia Holm, RN Patient called requesting to speak with Yulia stating she forgot some things to mention yesterday at office visit. She had spoken to Dr. Buckner about feeling bloaty/gassy and he suggested having a CT. She also has questions about lab work that Dr. Hall would want. Please advise. documented in this encounter [facility] 06-10-2025 Telephone encounter Note 2nd attempt Lvm for pt to call back and schedule ct. Maame Chaudhari [facility] 06-07-2025 Telephone encounter Note Lvm for pt to call back and schedule CT scans. Maame Chaudhari [facility] 06-07-2025 Telephone encounter Note Thank you. Order filed. [facility] 06-07-[address] Hall please sign pended orders. PSS please reach out to pt to get CT's scheduled. Liz Dubose LPN [facility] 06-05-2025 Telephone encounter Note Sensitivity of CT may be low with that level of CA125, but agree needs checked. Please pend CT C/A/P with IV and PO contrast. Nile Hall DO [facility] 06-03-2025 History of Presen t illness Narrative [facility] Assessment Medication(s): Zejula Patient's current medication list and adherence status to current therapy were reviewed by Specialty Pharmacy clinical pharmacist to identify any new drug interactions or non-compliance to therapy. Therapy continues to be appropriate for disease, patient response, and medical condition. Verification of therapeutic benefit and effectiveness with current therapy was completed. Adverse events, barriers in adherence, and side effects were assessed and addressed if applicable. Will proceed with refill with no changes in therapy - patient progressing towards achieving therapeutic goals based on medication-specific laboratory parameters, disease state markers and outcomes. Office/provider notes have been reviewed prior to dispensing the medication. Filing Machine Operator Assessment Patient confirmed: Yes Missed doses: No Estimated days supply on hand: 10 Copay amount: 0 Delivery method: FedEx Signature required: Waived on patient request Delivery Address Options from [facility]: [facility] Home Delivery Address Calculated: [id number] [place] [address] Delivery date: 06/10/25 Questions or concerns for the pharmacist?: No Did you have any side effects believed to be related to this medication, that resulted in hospitalization?: No Current Outpatient Medications on File Prior to Visit Medication Sig Mesalamine (LIALDA) 1.2 gram EC tablet Take 1,200 mg by mouth daily with breakfast. niraparib (ZEJULA) 200 mg tablet Take 1 tablet (200mg) by mouth every Friday, , Friday and Friday. Do not take on Mondays, Wednesdays and Fridays. ondansetron orally disintegrating (ZOFRAN ODT) 8 mg disintegrating tablet Take 1 tablet by mouth every 8 hours as needed for nausea/vomiting. prochlorperazine (COMPAZINE) 10 mg tablet Take 1 tablet by mouth every 6 hours as needed. acetaminophen (TYLENOL EXTRA STRENGTH) 500 mg tablet Take 1,000 mg by mouth every 6 hours as needed for pain. Loperamide HCl (ANTI-DIARRHEAL) 2 mg tab Take 1 tablet by mouth as needed. No current facility-administered medications on file prior to visit. [facility] CLINICAL ASSESSMENT - HEMATOLOGY ONCOLOGY V6: Assessment to use: Refill Date of influenza vaccination reminder: 03/17/2025 Date of most recent vaccination assessment: 03/17/2025 Treatment Plan Information: Dx: Ovarian serous adenocarcinoma, Stage IIIC, high-grade Tx hx: Hysterectomy/BSO, Carboplatin/Taxol, Avastin Tx regimen: Zejula monotherapy Med: niraparib (Zejula) Dose: 200 mg/day d/t 57.2 kg and 200,000 k/uL Sig: Take 1 tablet (200 mg) by mouth once daily Admin notes: c or s food, same time. Bedtime for reduced n/v Storage: rm temp Aes: HTN, Insomnia, STAHL, Constipation, back pain, Asthenia, dyspnea, stomatitis, low appetite Emetic pot: Moderate - Zofran and Compazine listed in med list Baseline Labs: 03/02/25 - Scr, bili, AST, ALT, CA125, CBC 03/17/25 - BP (113/67), HR (90) DDI: NONE as of 03/17/25 Est. Tx Plan Start Date: No information available Estimated Start Date Info: No information available Est. Estimated Treatment Duration: Until disease progression or unacceptable toxicity Rachel Vega documented in this encounter [facility] 06-03-[address] [facility] 06-02-2025 Telephone encounter Note Patient stated 7-10 days ago she felt bloated and had an increase in flatulence. Patient denies having any abdominal symptoms today. Patient stated at her OV yesterday she was feeling fine so she forgot to mention this to Dr. Hall. Patient sent a Gainsight message to Dr. Buckner's office on 05/30 and his REORDERING CLERK suggested possibly getting a CT scan. Patient is asking if she should have a CT scan of her abdomen? Patient stated her CA 125 was 16 yesterday and previously it had been 12. Thank you. Yulia Holm RN [facility] 06-02-2025 Telephone encounter Note Patient called requesting to speak with Yulia stating she forgot some things to mention yesterday at office visit. She had spoken to Dr. Buckner about feeling bloaty/gassy and he suggested having a CT. She also has questions about lab work that Dr. Hall would want. Please advise. [facility] Work Phone: 06-02-2025 Telephone encounter Note Patient notified. Corrina Jaime LPN [facility] 06-02-2025 Miscellaneous Notes Patient notified. Corrina Jaime LPN Can let her know CA125 still in normal range. Take Zejula as we discussed at recent office visit. Follow-up lab work as scheduled. documented in this encounter [facility] 06-02-2025 Progress note Formatting of t his note might be different from the original. Can let her know CA125 still in normal range. Take Zejula as we discussed at recent office visit. Follow-up lab work as scheduled. [facility] 06-01-[address] 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 HPI: The patient is a 75-year-old female with a past medical history as [...] end-to-end colorectal anastomosis and ileostomy takedown with [id number] functional end and reanastomosis on 09/08/2024. Pathology: [...] 09/14/24, and Huber Jackson, Jasvir, Vincent, and Bonnie agree. OVARY or FALLOPIAN TUBE or PRIMARY [...] streaking on her stools. Appetite is recovering. Current therapy: 1) Zejula. Presents for ongoing oncologic management. Interim history: She had a repeat colonoscopy that showed some ulceration at the anastomotic site without any bleeding. She was prescribed a 90-day course of mesalamine. Appetite unchanged. No reflux or nausea. No abdominal pain. No rectal bleeding or black stools. She has noticed easier bleeding with minor cuts and scratches. No unusual bleeding. Occasional brief episodes of fatigue. PAST MEDICAL HISTORY Diagnosis Date Actinic keratosis 07/05/2008 LEYVA ANGIOMA///NEVUS, NON-NEOPLASTIC 07/05/2008 Family history of osteoporosis 05/06/2008 High grade ovarian cancer (HCC) 04/22/2024 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 loss 03/02/2025 Iron malabsorption (HCC) 03/02/2025 Irritable bowel syndrome Osteopenia Other chronic dermatitis [...] Known Allergies Current Outpatient Medications Medication Sig Mesalamine (LIALDA) 1.2 gram EC tablet Take 1,200 mg by mouth daily with breakfast. ondansetron orally disintegrating (ZOFRAN ODT) 8 mg disintegrating tablet Take 1 tablet by mouth every 8 hours as needed for nausea/vomiting. prochlorperazine (COMPAZINE) 10 mg tablet Take 1 tablet by mouth every 6 hours as needed. acetaminophen (TYLENOL EXTRA STRENGTH) 500 mg tablet Take 1,000 mg by mouth every 6 hours as needed for pain. Loperamide HCl (ANTI-DIARRHEAL) 2 mg tab Take 1 tablet by mouth as needed. niraparib (ZEJULA) 200 mg tablet Take 1 tablet (200mg) by mouth once daily. (Patient not taking: Reported on 04/20/2025) No current facility-administered medications for this visit. Social History Tobacco Use Smoking status: Never Smokeless tobacco: Never Vaping Use Vaping status: Never Used Substance Use Topics Alcohol use: Yes Comment: social Drug use: Never Family History Problem Relation Age of Onset [...] Normal mood. PHYSICAL EXAM: Vitals: Blood pressure 133/75, pulse 87, temperature 36.3 C (97.3 F), temperature source Temporal, weight 56.5 kg (124 lb 8 oz), SpO2 99%. Well-appearing and in no acute distress. EYES: Sclerae are anicteric bilaterally. RESPIRATORY: Unlabored passive respirations. CARDIOVASCULAR: Rhythm is regular. ABDOMEN: The abdomen is nondistended. Extremities: No swelling or edema. SKIN: No jaundice. Genetic testing: [employer] panel negative. NGS/biomarkers/guard driver mutation analyses: Baseline CA125 320 units/mL 04/22/2024. [employer]: FOLR1 +75% membrane staining (04/09/2024). [facility] NGS: TP53 32% VAF. -Variant of uncertain significance NTRK2. -TMB low. -HRD genomic scar score low. -MSI stable. 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 - Presented with SBO. Initial ileostomy. - Tolerated carboplatin and paclitaxel very well with no symptoms of sensory neuropathy. - Rectal bleeding secondary to ulceration at anastomotic site when on bevacizumab. - Minimally symptomatic from anemia. - More nuisance bleeding with thrombocytopenia. - Symptomatically tolerating Zejula very well however with the addition of mesalamine, had worsening anemia and thrombocytopenia. Because she had 2 episodes of significant rectal bleeding from ulceration of the anastomotic site, discussed plan to decrease Zejula to every Friday, , Friday and Friday until completes the course of mesalamine in an effort to alleviate the thrombocytopenia. Plan: -New Rx for Zejula with dosing schedule as above. - Continue mesalamine. - CBC weekly for now. - Monitor chemistry panel and CA125 monthly. - OV in 2 months. - Imaging as indicated by symptoms and/or rising CA125. Portions of this documentation were copied and pasted from my previous office visit note dated 03/02/2025 in order to provide a cohesive continuity of the history. The note has been reviewed and edited and updated as necessary. Nile Hall DO documented in this encounter [facility] 05-30-[address] [facility] 05-30-2025 History of Presen t illness Narrative POPULATION HEALTH NAVIGATION OUTREACH Action/I Returned mychart message Reason for Outreach Returned Call/MyChart Patient Contacted: Patient in other facility or Active Cancer Treatment Navigation Signature: Alejandra Vann May 30, 2025 2:45 PM POPULATION HEALTH NAVIGATION OUTREACH Action/I - 2 HCCs Xochilt: Overdue since 07/07/2024 Wellness: Never Done Called Patient: Left Voicemail & Sent Mychart Reason for Outreach Care Gap/HCC or Scheduling Wellness Visits Care Gaps due: Medicare Annual Wellness Visit Breast Cancer Screening Patient Contacted: Unable or unnecessary to reach patient: Left message MyChart message sent HCC related Navigation Signature: Alejandra Vann May 30, 2025 1:50 PM documented in this encounter [facility] 05-30-[address] [facility] 05-04-2025 History of Presen t illness Narrative [facility] Refill Assessment Medication(s): Zejula Patient's current medication list and adherence status to current therapy were reviewed by Specialty Pharmacy clinical pharmacist to identify any new drug interactions or non-compliance to therapy. Therapy continues to be appropriate for disease, patient response, and medical condition. Verification of therapeutic benefit and effectiveness with current therapy was completed. Adverse events, barriers in adherence, and side effects were assessed and addressed if applicable. Will proceed with refill with no changes in therapy - patient progressing towards achieving therapeutic goals based on medication-specific laboratory parameters, disease state markers and outcomes. Office/provider notes have been reviewed prior to dispensing the medication. Filing Machine Operator Assessment Patient confirmed: Yes Med/dose confirmed: Yes Supplies needed: No supplies needed Missed doses: Yes Count of missed doses: Couple weeks Reason for missed doses: Holding med due to low platelets Estimated days supply on hand: 9 (pt restarting 05/04) Copay amount: 0 Copay form of payment: (N/A) Payment confirmed: Yes Delivery method: FedEx Signature required: Waived on patient request Delivery address: [facility] [place] [address] Delivery date: 05/11/25 Questions or concerns for the pharmacist?: No Did you have any side effects believed to be related to this medication, that resulted in hospitalization?: No Current Outpatient Medications on File Prior to Visit Medication Sig niraparib (ZEJULA) 200 mg tablet Take 1 tablet (200mg) by mouth once daily. (Patient not taking: Reported on 04/20/2025) ondansetron orally disintegrating (ZOFRAN ODT) 8 mg disintegrating tablet Take 1 tablet by mouth every 8 hours as needed for nausea/vomiting. prochlorperazine (COMPAZINE) 10 mg tablet Take 1 tablet by mouth every 6 hours as needed. acetaminophen (TYLENOL EXTRA STRENGTH) 500 mg tablet Take 1,000 mg by mouth every 6 hours as needed for pain. Loperamide HCl (ANTI-DIARRHEAL) 2 mg tab Take 1 tablet by mouth as needed. No current facility-administered medications on file prior to visit. [facility] SPECIALTY CLINICAL ASSESSMENT - HEMATOLOGY ONCOLOGY V6: Assessment to use: Refill Date of influenza vaccination reminder: 03/17/2025 Date of most recent vaccination assessment: 03/17/2025 Treatment Plan Information: Dx: Ovarian serous adenocarcinoma, Stage IIIC, high-grade Tx hx: Hysterectomy/BSO, Carboplatin/Taxol, Avastin Tx regimen: Zejula monotherapy Med: niraparib (Zejula) Dose: 200 mg/day d/t 57.2 kg and 200,000 k/uL Sig: Take 1 tablet (200 mg) by mouth once daily Admin notes: c or s food, same time. Bedtime for reduced n/v Storage: rm temp Aes: HTN, Insomnia, STAHL, Constipation, back pain, Asthenia, dyspnea, stomatitis, low appetite Emetic pot: Moderate - Zofran and Compazine listed in med list Baseline Labs: 03/02/25 - Scr, bili, AST, ALT, CA125, CBC 03/17/25 - BP (113/67), HR (90) DDI: NONE as of 03/17/25 Est. Tx Plan Start Date: No information available Estimated Start Date Info: No information available Est. Estimated Treatment Duration: Until disease progression or unacceptable toxicity Sun Kellogg documented in this encounter [facility] 05-04-[address] [facility] 05-03-2025 Telephone encounter Note Patient returned call and stated she could not make 05/25 labs. She rescheduled to 05/30. Included the 05/30 labs to the 06/01 office visit. [facility] Work Phone: 05-03-2025 Miscellaneous Notes Patient returned call and stated she could not make 05/25 labs. She rescheduled to 05/30. Included the 05/30 labs to the 06/01 office visit. Spoke to patient. Answered her questions. Patient will need an OV in about a month. Reviewed open times and 06/01 is the only day that worked for patient. Patient accepted an OV at 10:10 on 06/01. Labs at 9:45 am, prior to OV. Please schedule. Thank you. Yulia Holm RN Please schedule for weekly CBC. CMP monthly and CA125 monthly. CMP and CA125 were both done on 04/25 so not needed until around 05/23 or so. Nile Hall DO Colonoscopy report printed for Dr. Hall to review. Will be sent to scanning. Pathology pending. Corrina Jaime LPN documented in this encounter [facility] 05-03-2025 Telephone encounter Note Spoke to patient. Answered her questions. Patient will need an OV in about a month. Reviewed open times and 06/01 is the only day that worked for patient. Patient accepted an OV at 10:10 on 06/01. Labs at 9:45 am, prior to OV. Please schedule. Thank you. Yulia Holm RN [facility] 05-02-2025 Telephone encounter Note Please schedule for weekly CBC. CMP monthly and CA125 monthly. CMP and CA125 were both done on 04/25 so not needed until around 05/23 or so. Nile Hall DO [facility] 04-28-[address] [facility] 04-28-2025 History of Presen t illness Narrative POPULATION HEALTH NAVIGATION OUTREACH Action/FYI Patient needs appt to discuss HCCs, xochilt and wellness Reason for Outreach Care Gap/HCC or Scheduling Wellness Visits Care Gaps due: Medicare Annual Wellness Visit Breast Cancer Screening Patient Contacted: Unable or unnecessary to reach patient: Gainsight message sent HCC related Navigation Signature: Alejandra Cruzvianca April 28, 2025 2:29 PM documented in this encounter [facility] 04-27-2025 Telephone encounter Note Colonoscopy report printed for Dr. Hall to review. Will be sent to scanning. Pathology pending. Corrina Jaime LPN [facility] 04-26-2025 Consult note [facility] 04-26-2025 Procedure note [facility] 04-26-2025 Procedure note [facility] 04-26-2025 History and physi dorcas note [facility] 04-26-2025 Note [facility] Medical Records Department [address] [place] [address] History Physical Exam 04/26/25 1415 MR#: [id number] Acct: [id number] Name: SAL BAUTISTA Rep #: [id number] : 1950 75 From: Ankur Colon DO PCP: Dr. Romel Michelle MD Status:[facility] Location: [place] [address] HPI - General General Date of Admission: [...] daily to keep things soft and moving. 3 Colonoscopy: Patent end-to-end colo-rectal anastomosis w/erythema and friable tissue; treated w/APC after failed clip applications. 4 Sigmoidoscopy: Descending colon rectal anastomosis with some friable tissue. Coagulation for hemostasis using argon plasma was successful. [facility] Medical History Alcohol use Arthritis History of [...] diarrhea, dyspepsia, dysphagia, early satiety, excessive flatus, fecal incontinence, heartburn, hematemesis, hematochezia, hemorrhoids, loose stools, melena, [...] rate, regular rhythm, no murmurs and diaphoretic Assessmen (more content not included)... [facility] 04-26-2025 Consult note [facility] 04-20-[address] [facility] 04-20-2025 History of Presen t illness Narrative [...] end-to-end colorectal anastomosis and ileostomy takedown with vgmu-on-fyfl functional end and reanastomosis on 09/08/2024. Pathology: [...] 09/14/24, and Huber Jackson, Jasvir, Vincent, and [facility] titi. OVARY or FALLOPIAN TUBE or PRIMARY PERITONEUM [...] (L) 0.66 (L) 0.84 (L) 0.90 (L) Appling% % 9.6 7.0 8.9 10.4 Abs Appling <0.87 k/uL 0.29 0.20 0.27 0.41 Eosin% [...] Will also need follow up OV scheduled. Yulia given update. - Repeat CBC on FridayApril 25. - Follow up pending scope by Dr. Colon. - Pt. aware to call office with any questions/concerns. The patient indicates understanding of these issues and agrees with the plan. All documentation from previous visit of 03/02/25-Dr. Hall was copied and pasted, documentation has been reviewed and edited as necessary for today's visit. Linda Nuñez APRN.CLAMP OPERATOR documented in this encounter [facility] 04-13-2025 Telephone encounter Note Spoke to [...] prior to the scope. Yulia Holm RN [facility] 04-13-2025 Miscellaneous Notes Spoke to Linda. [...] Mer Smith LPN documented in this encounter [facility] 04-13-2025 Telephone encounter Note Patient was in for CBC this morning. Platelet dropped from 114 last week to 23 today. Patient denies petechiae bleeding or bruising. Looks like she started Zejulia last month. Mer Smith LPN [facility] 04-01-2025 Telephone encounter Note ORAL ANTI-CANCER [...] if unable to comply. Yulia Holm RN [facility] 04-01-2025 Miscellaneous Notes ORAL ANTI-CANCER AGENTS [...] following lab tests are due: CBC/possible tx. /2 Verified patient is aware of next appointment [...] 04/06 as scheduled. documented in this encounter [facility] 04-01-2025 Telephone encounter Note ORAL ANTI-CANCER AGENTS FOLLOW-UP PHONE CALL/VISIT Called patient to see how she has been doing on Zejula and also give her Dr. Hall's message. There was no answer. A VM was left requesting a call back from patient. Yulia Holm RN [facility] 03-31-2025 Telephone encounter Note Can let her know that her blood counts are doing better. Continue Zejula. Recheck CBC on 04/06 as scheduled. [facility] 03-22-2025 Telephone encounter Note Spoke with patient and scheduled Kellie eFrrera [facility] 03-22-2025 Miscellaneous Notes Spoke with patient and scheduled Kellie Ferrera Dr. Hall aware. Can start now. CBC next week/possible transfusion--03/30/25. CBC weekly --on Friday. CA-125/OV in 1 month, ok with REORDERING CLERK ---lab early in the day 04/20 and OV with Linda at 04/20 at 130pm. Orders pended. Mandy Sam RN Call to patient, aware of above. She plans to start evening of 03/23/25. Will plan for weekly CBC on Friday and ok with f/u with [facility]. All questions answered. Mandy Sam RN documented in this encounter [facility] 03-22-2025 Telephone encounter Note See G[employer]ight message from today, 03/22/25, with response. Mandy Sam RN [facility] Work Phone: 03-22-2025 Miscellaneous Notes See [employer] message from today, 03/22/25, with response. Mandy Sam RN Patient to receive Zejula on 03/22/25. Please advise on start date and follow up. Mandy Sam RN documented in this encounter [facility] 03-22-[address] Hall aware. Can start now. CBC next week/possible transfusion--03/30/25. CBC weekly --on Friday. CA-125/OV in 1 month, ok with REORDERING CLERK ---lab early in the day 04/20 and OV with Linda at 04/20 at 130pm. Orders pended. Mandy Sam RN Call to patient, aware of above. She plans to start evening of 03/23/25. Will plan for weekly CBC on Friday and ok with f/u with [facility]. All questions answered. Mandy Sam, RN [facility] 03-18-2025 Telephone encounter Note Patient to receive Zejula on 03/22/25. Please advise on start date and follow up. Mandy Sam RN [facility] 03-14-2025 Telephone encounter Note [facility] received prescription(s) for Zejula [...] Thanks! Aaliyah Hastings PharmD Clinical Pharmacist, Oncology [facility] P: , F: Pool: P CC [facility] Pool #: [id number] [facility] 03-14-2025 Miscellaneous Notes [facility] received prescription(s) for Zejula [...] Thanks! Aaliyah Hastings PharmD Clinical Pharmacist, Oncology [facility] P: , F: Pool: P [facility] Pool #: [id number] documented in this encounter [facility] 03-14-2025 Telephone encounter Note ORAL ANTI-CANCER [...] teaching topics as needed. Yulia Holm RN [facility] 03-14-2025 Miscellaneous Notes ORAL ANTI-CANCER AGENTS [...] Yulia Holm RN documented in this encounter [facility] 03-09-2025 Telephone encounter Note Patient called [...] relay message and get recs. Carey Elias APRN.CNP [facility] Work Phone: 03-09-2025 Miscellaneous Notes Patient [...] relay message and get recs. Carey Elias APRN.CNP documented in this encounter [facility] 03-07-2025 Telephone encounter Note Spoke w pt and she is scheduled as directed. Maame Chaudhari [facility] 03-07-2025 Miscellaneous Notes Spoke w pt and she is scheduled as directed. [...] Nile Hall DO documented in this encounter [facility] 03-03-2025 History of Presen t illness Narrative [facility] received prescription(s) for Zejula from Dr. Hall's office. Benefits investigation was conducted, indicating that a prior authorization is required by patient's insurance plan with On The Bill/Medicare. Encounter will be updated once prior authorization has been submitted by [facility]. documented in this encounter [facility] 03-03-[address] [facility] 03-03-[address] [facility] 03-03-[address] [facility] 03-03-[address] [facility] 03-03-2025 Telephone encounter Note Patient is aware of all information. PSS- please contact patient to schedule iron infusions and labs as directed below. Corrina Jaime LPN [facility] 03-02-2025 Telephone encounter Note Can let her know that lab work today did confirm iron deficiency. We discussed the potential for iron sucrose at today's office visit. Please schedule for 5 doses of iron sucrose. Repeat CBC, reticulocyte count and iron studies at the time of the fifth dose. Nile Hall DO [facility] 03-02-[address] [facility] 03-02-2025 History of Presen t illness Narrative [...] end-to-end colorectal anastomosis and ileostomy takedown with vgbu-bj-jiaa functional end and reanastomosis on 09/08/2024. Pathology: [...] 09/14/24, and Huber Jackson, Jasvir, Vincent, and Bonnie walls. OVARY or FALLOPIAN TUBE or PRIMARY PERITONEUM [...] jaundice. LABS: Genetic testing: [employer] panel negative. NGS/biomarkers/guard driver mutation analyses: Baseline CA125 320 units/mL [...] which included preparing to see the patient, xvsf-zu-aebi patient care, completing clinical documentation, obtaining and/or reviewing separately obtained history, counseling and educating the patient/family/caregiver, ordering medications, tests, or procedures, communicating with other HCPs (not separately reported), and communicating results to the patient/family/caregiver. Nile Hall DO documented in this encounter [facility] 03-01-2025 Evaluation note Diagnosis Onset Date Resolution History of reversal of ileostomy acute March 01, 2025 7 :56am Melena acute March 01, 2025 7:56am Blood in stool, nikki acute Apr 1:21pm History of reversal of ileostomy acute April 26, 2025 1:21pm [facility] Work Phone: 1(377) 155-236005-01-2025 [facility] History of Present illness Narrative* Linda Nuñez APRN.CLAMP OPERATOR - 02/03/2025 9:43 AM EDT Chief Complaint [...] end-to-end colorectal anastomosis and ileostomy takedown with zrao-yp-ddui functional end and reanastomosis on 09/08/2024. Pathology: [...] 09/14/24, and Huber Jackson, Jasvir, Vincent, and Bonnie agree. OVARY or FALLOPIAN TUBE or PRIMARY [...] k/uL 0.46 (L) 0.75 (L) 0.53 (L) Appling% % 0.5 13.6 14.8 Abs Appling <0.87 k/uL <0.03 0.40 0.54 Eosin% % [...] as necessary for today's visit. Linda Nuñez APRN.DELFINO [facility] History of Present illness Narrative* Carey Dutta MA - 01/18/2025 12:57 PM EDT POPULATION HEALTH NAVIGATION OUTREACH Action/FYI Patient is on [employer] Work[employer] list for below and needs appointment to address: Depression Screening Anxiety Screening RSV Vaccine(1 - Risk 60-74 years 1-dose series) Shingrix Vaccine(1 of 2) Cervical Cancer Screening DTaP,Tdap,Td Vaccine(2 - Td or Tdap) Mammogram Screening Advance Directive Discussion No results found for: HBA1C Patient due for: Medicare Annual Wellness Visit Breast Cancer Screening MyChart Active: Yes Left message for patient to call back. Sent [employer] message. HCC: Yes Reason for Outreach Care Gap/HCC or Scheduling Wellness Visits Care Gaps due: Medicare Annual Wellness Visit Breast Cancer Screening Patient Contacted: Unable or unnecessary to reach patient: Left message MyChart message sent HCC related Navigation Signature: Carey Dutta MA January 18, 2025 12:57 PM [facility] History and physical note Author Leydi Carmen [facility] Note Date/Time January 10, 2025 12:1 4pm [facility] Medical Records Department [address] [place] [address] History & Physical Exam 01/10/25 1125 MR#: [id number] Acct: [id number] Name: SAL BAUTISTA Rep #:[id number] : 1950 74 From: Leydi Carmen MD PCP: Dr. Romel Michelle MD Status:RE [facility] Location: [facility]11- History and Physical Date of Admission: 01/10/25 12/21/24 1005 MR#: [id number] Acct: [id number] Name: SAL BAUTISTA Rep #: [id number] : 1950 74 From: Leydi Carmen MD PCP: Dr. Romel Michelle MD Status: [facility] Location: [facility]15-1 History and Physical Date of Admission: 12/21/24 Date of Service: 12/17/24MR#: [id number] Acct: [id number] Name: SAL BAUTISTA Rep #: [id number] : 1950 Provider: Dr. Leydi Carmen MD Age/Sex: 74/F Location: [facility] Status: Signed Intake Vital Signs 09/04/2114:32 12/18/2507:51 [...] healthy appearing, comfortable and no acute distress [facility] Head: normocephalic and atraumatic Neck Neck: supple [...] MiraLAX Dulcolax prep Leydi Carmen M.D. Pager: [phone] [facility] [address] [place] [address], [address] [place] [id number] Office: [phone] Coding Level of Care Code Off vis,new,level [...] MD; Dr. Leydi Carmen MD ~* Signed [facility] Work Phone: 1(875) 510-560104-07-2025 Procedure note [facility] Medical Records Department [address] [place] [address] Flex Sigmoidoscopy Report MR#: [id number] Acct: [id number] Name: SAL BAUTISTA Rep #:[id number] : 1950 74 From: Leydi Carmen MD PCP: Dr. Romel Michelle MD Status:[facility] Patient Name: Sal Bautista Procedure [...] to home. Procedure Code(s): --- Professional --- 00720, PT, Sigmoidoscopy, flexible; with control of bleeding, any method Diagnosis Code(s): --- Professional --- R19.5, Other fecal abnormalities CPT copyright 2021 [employer]. All rights reserved. The codes documented in this report are preliminary and upon pega developer review may be revised to meet current compliance requirements. MD Leydi Kaba MD 01/10/2025 1:04:25 PM This report has been signed electronically. Number of Addenda: 0 Note Initiated On: 01/10/2025 12:17 PM 01/10/25 1304 Date _ Leydi Carmen MD Cosigner Signature: Date (if indicated) CC: Dr. Romel Michelle MD; Dr. Leydi Carmen MD ~ Date Dictated: 01/10/25 1217 Date Transcribed: Product Tester: TR Signed [facility]04-07-2025 Procedure note [facility] Medical Records Department [address] [place] [address] Operative Report - CC Letter MR#: [id number] Acct: [id number] Name: SAL BAUTISTA Rep #:[id number] : 1950 74 From: Leydi Carmen MD PCP: Dr. Romel Michelle MD Status:RE [facility] 01/10/2025 Romel Michelle [address] [place] [address] Re : Flexible Sigmoidoscopy procedure for Sal [...] signed electronically. 01/10/25 1304 Date _ Leydi Carmen MD Cosigner Signature: Date (if indicated) CC: Dr. Romel Michelle MD; Dr. Leydi Carmen MD ~ Date Dictated: 01/10/25 1217 Date Transcribed: Product Tester: TR Signed [facility]04-07-2025 Consult note [facility] Medical Records Department [address] [place] [address] Anesthesia Postop Eval I 01/10/25 1301 MR#: [id number] Acct: [id number] Name: SAL BAUTISTA Rep #:[id number] : 1950 74 From: Darryl Reeves PCP: Dr. Romel Michelle MD Status:RE G SD Y Race: C Location: [place] [address] Anesthesia: Postop Eval I Current Vital Signs [...] Darryl Martinez Signature: Date CC: ~ Signed [facility]04-07-2025 Consult note Author Carlos Bonilla [facility] Note Date/Time January 10, 2025 10:2 5am [facility] Medical Records Department [address] [place] [place] [address] Pre-Anesthesia Evaluation 01/10/25 1024 MR#: [id number] Acct: [id number] Name: SAL BAUTISTA Rep #:[id number] : 1950 74 From: Carlos Bonilla MD PCP: Dr. Romel Michelle MD Status:[facility] Y Race: C Location: [place] [address] ASA Classification* ASA Classification ASA Classification: 2 [...] flex sig Anesthesia History Anesthesia History - accounts receivable administrator: Anesthesia History - accounts receivable administrator Hx Hospitalization Yes: 09/2024 SURGERY FOR 01/05/25 [...] take am of surgery PONV PONV - accounts receivable administrator: PONV - accounts receivable administrator Female Yes 01/05/25 14:23 HX of Motion [...] 01/10/25 10:06 Respiratory Assessment Respiratory Assessment - accounts receivable administrator: Respiratory Tract Infection Hx - accounts receivable administrator Hx Respiratory Tract Infection No 01/05/25 14:23 STOP Sleep Apnea STOP Sleep Apnea - accounts receivable administrator: STOP Sleep Apnea - accounts receivable administrator Hx Hypertension No 01/05/25 14:23 Hx Sleep [...] Tobacco Use History Tobacco Use History - accounts receivable administrator: Tobacco Use History - accounts receivable administrator Tobacco Use Smoking Status Never smoker 01/05/25 14:23 Hx Tobacco Use No 01/05/25 14:23 Years Smoking Packs Smoked per Day Smoking Cessation Date was within the last 15 years Hx Smoking Cessation Date Hx Smoking Cessation Counseling Hematologic Medial History Hematologic Hx - accounts receivable administrator: Hematologic Medical Hx - fagot maker Hx of Blood Transfusion Yes 01/05/25 14:23 [...] confused, unrespo /Reproduction History /Reproductive History - accounts receivable administrator: /Reproductive Hx- accounts receivable administrator Hx Now Gestational Age (in weeks): EDC: [...] Carlos Bonilla MD > Date _ Carlos Martinez Signature: Date CC: ~ Signed [facility] Work Phone: 1(507) 713-904104-07-2025 History and physical note [facility] Medical Records Department [address] [place] [address] History & Physical Exam 01/10/25 1125 MR#: [id number] Acct: [id number] Name: SAL BAUTISTA Rep #:[id number] : 1950 74 From: Leydi Carmen MD PCP: Dr. Romel Michelle MD Status:[facility] Location: [address] History and Physical Date of Admission: 01/10/25 12/21/24 1005 MR#: [id number] Acct: [id number] Name: SAL BAUTISTA Rep #: [id number] : 1950 74 From: Leydi Carmen MD PCP: Dr. Romel Michelle MD Status: [facility] Location: [address] History and Physical Date of Admission: 12/21/24 Date of Service: 12/17/24MR#: [id number] Acct: [id number] Name: SAL BAUTISTA Rep #: [id number] : 1950 Provider: Dr. Leydi Carmen MD Age/Sex: 74/F Location: [facility] Status: Signed Intake Vital Signs 09/04/2114:32 12/18/2507:51 [...] healthy appearing, comfortable and no acute distress [facility] Head: normocephalic and atraumatic Neck Neck: supple [...] MiraLAX Dulcolax prep Leydi Carmen M.D. Pager: [phone] [facility] [address] [place] [address], [facility], [address] [place] [address] Office: [phone] Coding Level of Care Code Off vis,new,level [...] MD; Dr. Leydi Carmen MD ~* Signed [facility]04-07-2025 [facility] Medical Records Department [address] [place] [address] History Physical Exam 01/10/25 1125 MR#: [id number] Acct: [id number] Name: SAL BAUTISTA Rep #: [id number] : 1950 74 From: Leydi Carmen MD PCP: Dr. Romel Michelle MD Status:[facility] Location: [facility]11- History and Physical Date of Admission: 01/10/25 12/21/24 1005 MR#: [id number] Acct: [id number] Name: SAL BAUTISTAIE Rep #: [id number] : 1950 74 From: Leydi Carmen MD PCP: Dr. Romel Michelle MD Status: [facility] Location: [facility]15 History and Physical Date of Admission: 12/21/24 Date of Service: 12/17/24MR#: [id number] Acct: [id number] Name: SAL BAUTISTA Rep #: [id number] : 1950 Provider: Dr. Leydi Carmen MD Age/Sex: 74/F Location: [facility] Status: Signed Intake Vital Signs 09/04/2114:32 12/18/2507:51 [...] depression, anxiety or h (more content not included)...[facility]04-07-2025 Consult note [facility] Medical Records Department [address] [place] [address] Pre-Anesthesia Evaluation 01/10/25 1024 MR#: [id number] Acct: [id number] Name: SAL BAUTISTA Rep #:[id number] : 1950 74 From: Carlos Bonilla MD PCP: Dr. Romel Michelle MD Status: G [facility] Y Race: C Location: [place] [address] ASA Classification* ASA Classification ASA Classification: 2 [...] flex sig Anesthesia History Anesthesia History - accounts receivable administrator: Anesthesia History - accounts receivable administrator Hx Hospitalization Yes: 09/2024 SURGERY FOR 01/05/25 [...] take am of surgery PONV PONV - accounts receivable administrator: PONV - accounts receivable administrator Female Yes 01/05/25 14:23 HX of Motion [...] 01/10/25 10:06 Respiratory Assessment Respiratory Assessment - accounts receivable administrator: Respiratory Tract Infection Hx - accounts receivable administrator Hx Respiratory Tract Infection No 01/05/25 14:23 STOP Sleep Apnea STOP Sleep Apnea - accounts receivable administrator: STOP Sleep Apnea - accounts receivable administrator Hx Hypertension No 01/05/25 14:23 Hx Sleep [...] Tobacco Use History Tobacco Use History - accounts receivable administrator: Tobacco Use History - accounts receivable administrator Tobacco Use Smoking Status Never smoker 01/05/25 14:23 Hx Tobacco Use No 01/05/25 14:23 Years Smoking Packs Smoked per Day Smoking Cessation Date was within the last 15 years Hx Smoking Cessation Date Hx Smoking Cessation Counseling Hematologic Medial History Hematologic Hx - accounts receivable administrator: Hematologic Medical Hx - fagot maker Hx of Blood Transfusion Yes 01/05/25 14:23 [...] confused, unrespo /Reproduction History /Reproductive History - accounts receivable administrator: /Reproductive Hx- accounts receivable administrator Hx Now Gestational Age (in weeks): EDC: Hx Hx Para Hx Section SAB No 01/05/25 14:23 [facility] Medical History History of chemotherapy Wears glasses [...] documented. 01/10/25 1025 > Date _ Carlos Martinez Signature: Date CC: ~ Signed [facility]03-24-2025 Telephone encounter Note* Telephone Encounter - [...] after hours number protocol. Yulia Holm RN [facility]03-24-2025 Miscellaneous Notes* Telephone Encounter - Yulia [...] protocol. Yulia Holm RN [facility] History of Present illness Narrative* Yulia Holm [...] N/A Yulia Holm RN [facility] Consult note Author Federico Joshua [facility] Note Date/Time December 21, 2024 10: 10am [facility] Medical Records Department [address] [facility] [place] [address] Pre-Anesthesia Evaluation 12/21/24 1005 MR#: [id number] Acct: [id number] Name: SAL BAUTISTA Rep #:[id number] : 1950 74 From: Federico Joshua MD PCP: Dr. Romel Michelle MD Status: G [facility] Y Race: C Location: [place] [address] ASA Classification* ASA Classification ASA Classification: 2 [...] Procedure(s): CSCOPE Anesthesia History Anesthesia History - accounts receivable administrator: Anesthesia History - accounts receivable administrator Hx Hospitalization Yes: 09/2024 SURGERY FOR 12/20/24 [...] take am of surgery PONV PONV - accounts receivable administrator: PONV - accounts receivable administrator Female Yes 12/20/24 11:07 HX of Motion [...] 12/21/24 09:33 Respiratory Assessment Respiratory Assessment - accounts receivable administrator: Respiratory Tract Infection Hx - accounts receivable administrator Hx Respiratory Tract Infection No 12/20/24 11:07 STOP Sleep Apnea STOP Sleep Apnea - accounts receivable administrator: STOP Sleep Apnea - accounts receivable administrator Hx Hypertension No 12/20/24 11:07 Hx Sleep [...] Tobacco Use History Tobacco Use History - accounts receivable administrator: Tobacco Use History - accounts receivable administrator Tobacco Use Smoking Status Never smoker 12/20/24 11:07 Hx Tobacco Use No 12/20/24 11:07 Years Smoking Packs Smoked per Day Smoking Cessation Date was within the last 15 years Hx Smoking Cessation Date Hx Smoking Cessation Counseling Hematologic Medial History Hematologic Hx - accounts receivable administrator: Hematologic Medical Hx - fagot maker Hx of Blood Transfusion Yes 12/20/24 11:07 [...] confused, unrespo /Reproduction History /Reproductive History - accounts receivable administrator: /Reproductive Hx- accounts receivable administrator Hx Now No 12/20/24 11:07 Gestational Age (in weeks): EDC: Hx Hx Para Hx Section SAB No 12/20/24 11:07 [facility] Medical History (Updated 12/20/24 @ 11:14 by [...] MD Cosigner Signature: Date CC: ~ Signed [facility] Work Phone: 1(579) 607-515903-18-2025 History and physical note Author Leydi [facility] Note Date/Time December 21, 2024 10: 37am [facility] Medical Records Department [address] [place] [address] History & Physical Exam 12/21/24 1005 MR#: [id number] Acct: [id number] Name: SAL BAUTISTA Rep #:[id number] : 1950 74 From: Leydi Carmen MD PCP: Dr. Romel Michelle MD Status:[facility] Location: [place] [address] History and Physical Date of Admission: 12/21/24 Date of Service: 12/17/24 MR#: [id number] Acct: [id number] Name: SAL BAUTISTA Rep #: [id number] : 1950 Provider: Dr. Leydi Carmen MD Age/Sex: 74/F Location: [facility] Status: Signed Intake Vital Signs 09/04/2114:32 12/18/2507:51 [...] healthy appearing, comfortable and no acute distress [facility] Head: normocephalic and atraumatic Neck Neck: supple [...] MiraLAX Dulcolax prep Leydi Carmen M.D. Pager: [phone] [facility] [address] [place] [address], [facility], [address] [place] [address] Office: [phone] Coding Level of Care Code Off vis,new,level [...] MD; Dr. Leydi Carmen MD ~* Signed [facility] Work Phone: 1(669) 531-996903-18-2025 Procedure note [facility] Medical Records Department [address] [place] [place] [address] Colonoscopy Report MR#: [id number] Acct: [id number] Name: SAL BAUTISTA Rep #:[id number] : 1950 74 From: Leydi Carmen MD PCP: Dr. Romel Michelle MD Status: [facility] Patient Name: Sal Bautista Procedure Date: 12/21/2024 [...] that time. Procedure Code(s): --- Professional --- 17716, Colonoscopy, flexible; with control of bleeding, any method Diagnosis Code(s): --- Professional --- Z98.0, Intestinal bypass and anastomosis status K62.5, Hemorrhage of anus and rectum CPT copyright 2021 [employer]. All rights reserved. The codes documented in this report are preliminary and upon pega developer review may be revised to meet current compliance requirements. MD Leydi Kaba MD 12/21/2024 11:48:07 AM This report has been signed electronically. Number of Addenda: 0 Note Initiated On: 12/21/2024 10:40 AM 12/21/24 1148 Date _ Leydi Carmen MD Cosigner Signature: Date (if indicated) CC: Dr. Romel Michelle MD; Dr. Leydi Carmen MD ~ Date Dictated: 12/21/24 1040 Date Transcribed: Product Tester: TR Signed [facility]03-18-2025 Procedure note [facility] Medical Records Department [address] [place] [address] Operative Report - CC Letter MR#: [id number] Acct: [id number] Name: SAL BAUTISTA Rep #:[id number] : 1950 74 From: Leydi Carmen MD PCP: Dr. Romel Michelle MD Status:RE Bruce [facility] 12/21/2024 Romel Michelle [address] [place] [address] Re : Colonoscopy procedure for Sal Bautista [...] Michelle MD; Dr. Nile Hall DO; Dr. Ledyi Carmen MD ~ Date Dictated: 12/21/24 1040 Date Transcribed: Product Tester: TR Signed [facility]03-18-2025 History and physical note [facility] Medical Records Department [address] [place] [address] History & Physical Exam 12/21/24 1005 MR#: [id number] Acct: [id number] Name: SAL BAUTISTA Rep #:[id number] : 1950 74 From: Leydi Carmen MD PCP: Dr. Romel Michelle MD Status:RE G [facility] Location: [place] [address] History and Physical Date of Admission: 12/21/24 Date of Service: 12/17/24 MR#: [id number] Acct: [id number] Name: SAL BAUTISTA Rep #: [id number] : 1950 Provider: Dr. Leydi Carmen MD Age/Sex: 74/F Location: [facility] Status: Signed Intake Vital Signs 09/04/2114:32 12/18/2507:51 [...] healthy appearing, comfortable and no acute [facility] Head: normocephalic and atraumatic Neck Neck: supple [...] MiraLAX Dulcolax prep Leydi Carmen M.D. Pager: [phone] [facility] [address] [place] [address], [facility], [address] [place] [address] Office: [phone] Coding Level of Care Code Off vis,new,level [...] MD; Dr. Leydi Carmen MD ~* Signed [facility]03-18-2025 Consult note [facility] Medical Records Department [address] [place] [address] Pre-Anesthesia Evaluation 12/21/24 1005 MR#: [id number] Acct: [id number] Name: SAL BAUTISTA Rep #:[id number] : 1950 74 From: Federico Joshua MD PCP: Dr. Romel Michelle MD Status: G [facility] Y Race: C Location: [place] [address] ASA Classification* ASA Classification ASA Classification: 2 [...] Procedure(s): CSCOPE Anesthesia History Anesthesia History - accounts receivable administrator: Anesthesia History - accounts receivable administrator Hx Hospitalization Yes: 09/2024 SURGERY FOR 12/20/24 [...] take am of surgery PONV PONV - accounts receivable administrator: PONV - accounts receivable administrator Female Yes 12/20/24 11:07 HX of Motion [...] 12/21/24 09:33 Respiratory Assessment Respiratory Assessment - accounts receivable administrator: Respiratory Tract Infection Hx - accounts receivable administrator Hx Respiratory Tract Infection No 12/20/24 11:07 STOP Sleep Apnea STOP Sleep Apnea - accounts receivable administrator: STOP Sleep Apnea - accounts receivable administrator Hx Hypertension No 12/20/24 11:07 Hx Sleep [...] Tobacco Use History Tobacco Use History - accounts receivable administrator: Tobacco Use History - accounts receivable administrator Tobacco Use Smoking Status Never smoker 12/20/24 11:07 Hx Tobacco Use No 12/20/24 11:07 Years Smoking Packs Smoked per Day Smoking Cessation Date was within the last 15 years Hx Smoking Cessation Date Hx Smoking Cessation Counseling Hematologic Medial History Hematologic Hx - accounts receivable administrator: Hematologic Medical Hx - fagot maker Hx of Blood Transfusion Yes 12/20/24 11:07 [...] confused, unrespo /Reproduction History /Reproductive History - accounts receivable administrator: /Reproductive Hx- accounts receivable administrator Hx Now No 12/20/24 11:07 Gestational Age (in weeks): EDC: Hx Hx Para Hx Section SAB No 12/20/24 11:07 [facility] Medical History (Updated 12/20/24 @ 11:14 by [...] rhythm, no murmurs and diaphoretic 12/21/24 1010 MD> Date _ [facility]erico Joshua [facility] Signature: Date CC: ~ Signed [facility]03-18-2025 [facility] Medical Records Department [address] [place] [address] History Physical Exam 12/21/24 1005 MR#: [id number] Acct: [id number] Name: SAL BAUTISTA Rep #: [id number] : 1950 74 From: Leydi Carmen MD PCP: Dr. Romel Michelle MD Status:[facility] Location: [place] [address] History and Physical Date of Admission: 12/21/24 Date of Service: 12/17/24 MR#: [id number] Acct: [id number] Name: SAL BAUTISTA Rep #: [id number] : 1950 Provider: Dr. Leydi Carmen MD Age/Sex: 74/F Location: [facility] Status: Signed Intake Vital Signs 09/04/2114:32 12/18/2507:51 [...] Hematologic: No blood thin (more content not included)...[facility]03-14-2025 Evaluation note* Diagnosis Onset Date Resolution Status Admit Date Blood in stool, nikki acute [facility] 2024 8:32am [facility] Work Phone: 1(729) 925-733803-13-2025 History of Present illness Narrative* Bushra Liu, [...] PATIENT PRESENTS WITH AN IMPLANTABLE OR ATTACHED CANVAS MARKER: No ALLERGIES: Reviewed and unchanged CONTRAST ALLERGY: [...] 2024 TIME: 2:42 PM [facility] Telephone encounter Note* Telephone Encounter - Kellie Ferrera - 12/02/2024 4:29 PM EST Scheduled new treatment as directed Kellie Ferrera [facility]02-27-2025 Miscellaneous Notes* Telephone Encounter - Kellie Ferrera - 12/02/2024 4:29 PM EST Scheduled new treatment as directed Kellie Ferrera * Telephone Encounter - Kellie Ferrera - 12/02/2024 9:43 AM EST Repeat CBC prior to tomorrow's treatment.-done 12/03/2024 will be the last dose of Carbo/Taxol. Referral to Dr. Carmen at [facility] for rectal bleeding.-FAXED CT C/A/P when able.-SCHEDULED Begin every 3 week bevacizumab in 3-4 weeks. CBC/CMP/CA 125 with each cycle. OV/CBC/CMP/CA 125 with Cycle 2. OV's every other cycle. Alternate OV's between Dr. Hall and the REORDERING CLERK's. Adding --needs Chemo ED Kellie Ferrera documented in this encounter[facility]02-27-2025 Telephone encounter Note * Telephone Encounter - Kellie Ferrera - 12/02/2024 9:43 AM EST Repeat CBC prior to tomorrow's treatment.-done 12/03/2024 will be the last dose of Carbo/Taxol. Referral to Dr. Carmen at [facility] for rectal bleeding.-FAXED CT C/A/P when able.-SCHEDULED Begin every 3 week bevacizumab in 3-4 weeks. CBC/CMP/CA 125 with each cycle. OV/CBC/CMP/CA 125 with Cycle 2. OV's every other cycle. Alternate OV's between Dr. Hall and the REORDERING CLERK's. Adding --needs Chemo ED Kellie Ferrera [facility]02-27-[facility] History of Present illness Narrative* Nile [...] end-to-end colorectal anastomosis and ileostomy takedown with fozd-gk-ygex functional end and reanastomosis on 09/08/2024. Pathology: [...] 09/14/24, and Huber Jackson, Jasvir, Vincent, and [facility] agree. OVARY or FALLOPIAN TUBE or PRIMARY [...] 6 hours as neededfor pain. nutritional supplement (Plazapoints (Cuponium) STANDARD 1.4) 0.06 G - 1.4 Kcal/mL [...] jaundice. LABS: Genetic testing: Invitae panel negative. NGS/biomarkers/guard driver mutation analyses: Baseline CA125 320 units/mL [...] in a couple weeks. -Referral to Dr. Carmen for evaluation of rectal bleeding. -Monitor CA125. [...] necessary. Nile Hall DO documented in this encounterUc [facility]02-27-2025 Note[facility]02-[facility]-2025 Note[facility]02-06-2025 History of Present illness Narrative* Linda Nuñez APRN.CLAMP OPERATOR - 11/11/2024 8:32 AM EST Chief Complaint [...] end-to-end colorectal anastomosis and ileostomy takedown with xcsv-yy-petw functional end and reanastomosis on 09/08/2024. Pathology: [...] gynecologic consensus conference on 09/14/24, and Huber Jakcson, Jasvir, Vincent, and [facility] agree. OVARY or FALLOPIAN TUBE or PRIMARY [...] rashes or lesions LABS: Latest Ref Rng 10/15/2024 10/22/2024 11/11/2024 WBC 3.70 - 11.00 [...] 4.00 k/uL 1.35 0.60 (L) 0.99 (L) Appling% % 9.7 0.7 10.0 Abs Appling <0.87 k/uL 0.52 0.05 0.38 Eosin% % [...] as necessary for today's visit. Linda Nuñez APRN.DELFINO documented in this encounterUc [facility]01-15-2025 Telephone encounter Note * Telephone Encounter - Yulia Holm RN - 10/20/2024 2:10 PM EST Patient stated she needs a refill on dexamethasone. Refill sent pend/send. Yulia Holm RN [facility]01-15-2025 Miscellaneous Notes* Telephone Encounter - Yulia Holm RN - 10/20/2024 2:10 PM EST Patient stated she needs a refill on dexamethasone. Refill sent pend/send. Yulia Holm RN documented in this encounterU[facility]01-10-2025 Telephone encounter Note * Telephone Encounter - Sana Morales - 10/15/2024 10:45 AM EST Patient confirmed [facility] Work Phone: 1(426) 438-496701-10-2025 Miscellaneous Notes* Telephone Encounter - Sana Morales [...] and 3. Kellie Ferrera documented in this encounterUc [facility]01-10-2025 Telephone encounter Note * Telephone Encounter - Kellie Ferrera - 10/15/2024 9:35 AM EST Lvm for patient to return the call. When patient calls back please advise treatment appointments have been scheduled and verify times are ok Kellie Ferrera [facility]01-10-2025 Telephone encounter Note* Telephone Encounter - Kellie Ferrera - 10/15/2024 9:10 AM EST Resume every 3 week Carbo/Taxol, for 3 cycles, starting late next week ( or Friday). Patient may be a straight back with a CBC/CMP/MAG that day. OV/CBC/CMP/MAG/CA 125 for cycles 2 and 3. Kellie Ferrera [facility]01-10-2025 Note[facility]01-10-2025 History of Present illness Narrative* Nile Hall [...] end-to-end colorectal anastomosis and ileostomy takedown with tlzp-ji-poax functional end and reanastomosis on 09/08/2024. Pathology: [...] 09/14/24, and Huber Jackson, Jasvir, Vincent, and [facility] agree. OVARY or FALLOPIAN TUBE or PRIMARY [...] 6 hours as neededfor pain. nutritional supplement (Plazapoints (Cuponium) STANDARD 1.4) 0.06 G - 1.4 Kcal/mL [...] jaundice. LABS: Genetic testing: Invitae panel negative. NGS/biomarkers/guard driver mutation analyses: Baseline CA125 320 units/mL [...] necessary. Nile Hall DO documented in this encounterUc [facility]01-03-2025 Telephone encounter Note * Telephone Encounter - Kellie Ferrera - 10/08/2024 10:46 AM EST Spoke with patient and advised of new appointment time Kellie Ferrera [facility]01-03-2025 Miscellaneous Notes* Telephone Encounter - Kellie [...] 125. Corrina Jaime LPN documented in this encounterUc [facility]01-03-2025 Telephone encounter Note * Telephone Encounter [...] appt. Pt. Voiced understanding Liz Dubose LPN [facility]01-03-2025 Telephone encounter Note* Telephone Encounter - Tali Ervin - 10/08/2024 9:31 AM EST Patient called back to schedule. She is currently scheduled, she is also asking about scheduling her infusions. Please review and advise. Tali Arguello Aziza October 08, 2024 9:31 AM [facility]01-02-2025 Telephone encounter Note* Telephone Encounter - Kim Pandey - 10/07/2024 4:41 PM EST Called patient and left a vm to return our call [facility]01-02-[facility] Telephone encounter Note* Telephone Encounter - Corrina Jaime LPN - 10/07/2024 4:18 PM EST PSS- please contact patient to schedule labs and OV in 2 weeks- she will need a CBC/CMP/CA 125. Corrina Jaime LPN [facility]01-02-2025 History of Present illness Narrative* Fredis Buckner MD - 10/07/2024 11:45 AM EST Images from the original note were not included. Gynecologic Oncology [facility] Postop Re: Sal Barrett Lily [facility] [id number] Date of Service: 10/07/2024 Dr. Romel Michelle [...] suggested. 03/16/2024 Telephone encounter with Aga Meredith APRN.CLAMP OPERATOR Called and spoke with patient~ per Dr. Buckner, he would like to cancel surgery tomorrow and admit herfor paracentesis and placement of feeding tube for poor nutritional status. Called admitting to request bad and advised patient that they would call her when bed becomes available. Updated inpatient team. Updated surgery specialist that her case needs to be cancelled tomorrow. 03/17 - 03/24/2024 [facility] [place] admission - Paracentesis and nutritional optimization PROCEDURES [...] that the malignant cells are positive for Nelson-8, Claudin-4 and negative for D2-40, ER. WT-1 [...] agreement with the plan. 04/09 - 04/13/2024 [facility] admission OPERATIONS DURING HOSPITALIZATION: XL, aborted debulk, [...] and monitor her disease response with interval DT800j and CT scans. We will plan for interval debulking if she responds favorably to treatment. Patient was initially hesitant to consider chemotherapy as she has seen many ovarian cancer patients going through chemotherapy and start deconditioning. Discussed that every patient responds differently to therapy and there are medications that help control her symptoms. We could plan to have patient undergo chemotherapy in [place] with Dr Hall and follow up for [...] Current Treatment with Dr. Nile Hall in [place] Carboplatin AUC 6 and Taxol 135 mg/m2 [...] No ascites. 06/30/[address] Nile Masci ASSESSMENT/PLAN: (C56.9) High grade ovarian cancer (HCC) [...] in size. 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 She is she is interested in what her life expectancy would be if she received no further therapy. I informed her that typically we have lumped all the patients who occur within 6 months of chemotherapy as 1 subgroup with a median survival of approximately 10 months. But the patients who recur on therapy and are three affiliated refractory clearly have a worse prognosis. We currently have 2 studies for three affiliated refractory disease. Onestudy G 3076 looking at a new viral agent with three affiliated based chemotherapy versus three affiliated based chemotherapy. This study had promising results and a phase 2 and three affiliated resistant and refractory patients with an overall response rate of 54%. The current studies comparing the viral three affiliated basedchemotherapy versus three affiliated based chemotherapy in a phase 3 trial for FDA approval. She would be acandidate for this trial but this is a randomized trial where the patient may only receive standardof care which would be a three affiliated based chemotherapy with Avastin. This may be an acceptable regimen but she would have to receive this at [facility]. A second study involves harvesting her T [...] then repeat imaging - Consider switching to Carbo/[place] or Carbo/Doxil 08/25/2024 CT CHEST W IVCON [...] consensus conference on 09/14/24, and Huber Jackson, Vincent Tay, and [facility] agree. Dr. Med Burch (GI and Hepatobiliary [...] expression) 09/14/2024 Virtual visit with Rosi Martinez APRN.CLAMP OPERATOR ASSESSMENT: 74 yo s/p 6 cycles carbo [...] bleeding. + lower abdominal pain. Ayah West SOTERO October 07, 2024 11:34 AM OBJECTIVE: BP [...] vaginal cuff. Bimanual exam reveals no tenderness. Electromatic Typist for exam: Tess Tabares CNP The sensitive examination was discussed with the Patient or Patient's Authorized Chemical Processing Supervisor. Asapplicable, any other physician, advance practice provider, medical student, or other health professional student that will be observing or involved in the sensitive examination for educational or training purposes was discussed with the Patient or Authorized Chemical Processing Supervisor. The Patient or Authorized Chemical Processing Supervisor has agreed to proceed with the sensitive [...] ATTESTATION: By signing my name below, Hayley Harris, attest that this documentation has been prepared under the direction and in the presence of Fredis Buckner MD. Electronically signed: Narciso Good, October 07, 2024 11:47 AM Provider Attestation: Fredis Harris MD, personally performed the services described in [...] CC: Nile Hall DO documented in this encounterUc [facility]01-02-2025 NoteSt. [facility]12-30-2024 Telephone encounter Note* Telephone Encounter - Sydney [...] on . Informed the patient that an REORDERING CLERK is available in the event she needs to see someone sooner. After reaching out to an REORDERING CLERK, I advised the patient that she should keep her appointment with Dr. Buckner on . Patient appreciative of call. Sydney Ahumada RN Gyn/Onc Surgical Brace Maker [facility]12-30-2024 Miscellaneous Notes* Telephone Encounter - Sydney Ahumada [...] on . Informed the patient that an REORDERING CLERK is available in the event she needs to see someone sooner. After reaching out to an REORDERING CLERK, I advised the patient that she should keep her appointment with Dr. Buckner on . Patient appreciative of call. Sydney Ahumada RN Gyn/Onc Surgical Brace Maker documented in this encounterUc [facility] Hospital12-30-2024 Telephone encounter Note * Telephone Encounter - Tess Tabares APRN.CNP - 10/04/2024 3:32 PM EST Spoke to patient. She stated that she had diarrhea for a little bit after surgery and then hthfnsba04/23 she starting having harder stool and started [...] was grateful for phone call. Tess Tabares APRN.CLAMP OPERATOR [facility] Work Phone: 1(530) 158-108812-30-2024 Miscellaneous Notes* Telephone Encounter - Tess Tabares APRN.CNP - 10/04/2024 3:32 PM EST Spoke to patient. She stated that she had diarrhea for a little bit after surgery and then pcdakntv44/23 she starting having harder stool and started [...] was grateful for phone call. Tess Tabares APRN.CLAMP OPERATOR * Telephone Encounter - Veronica Galvan RN - 10/04/2024 2:40 PM EST Pt LVM at [facility] office. Spoke to pt who said the last 3 days after a BM she has noted some bleeding. a little in the stool Pt also said when wiping a less than quarter size of blood noted on toilet paper. Pt has a post -op appointment with Dr. Buckner at [facility] 10/07. Informed pt message would be sent to medical team to review and advise. Pt verbalized understanding and grateful for call. documented in this encounterUc [facility] Hospital12-30-2024 Telephone encounter Note * Telephone Encounter - Veronica Galvan RN - 10/04/2024 2:40 PM EST Pt LVM at [facility] office. Spoke to pt who said the last 3 days after a BM she has noted some bleeding. a little in the stool Pt also said when wiping a less than quarter size of blood noted on toilet paper. Pt has a post -op appointment with Dr. Buckner at [facility] 10/07. Informed pt message would be sent to medical team to review and advise. Pt verbalized understanding and grateful for call. [facility]12-19-[facility] Telephone encounter Note* Telephone Encounter - Yulia Holm RN - 09/23/2024 10:07 AM EST Spoke to patient. Informed her that this nurse reached out to balance truer/onc CC and the plan will be for patient to meet with Dr. Buckner on 10/07/24 and he should be communicating the plan moving forward at that time. Patient stated understanding. Yulia Holm RN [facility]12-19-2024 Miscellaneous Notes* Telephone Encounter - Yulia Holm RN - 09/23/2024 10:07 AM EST Spoke to patient. Informed her that this nurse reached out to balance truer/onc CC and the plan will be for patient to meet with Dr. Buckner on 10/07/24 and he should be communicating the plan moving forward at that time. Patient stated understanding. Yulia Holm RN * Telephone Encounter - Yulia Holm RN - 09/22/2024 10:21 AM EST Sent a note to the balance truer/onc CC to see what treatment she is supposed to be starting. Dr. Hall was not planning on seeing patient until after her post op appointment with Dr. Buckner on 10/07/24. Yulia Holm RN * Telephone Encounter - Tali Ervin - 09/22/2024 8:33 AM EST Patient calling in about getting her treatments on the schedule. Please review and advise. Talielvis Grimesstrom September 22, 2024 8:33 AM documented in this encounterUc [facility] Hospital12-18-2024 Telephone encounter Note * Telephone Encounter - Sydney Ahumada RN - 09/22/2024 11:00 AM EST Verified name and . Called the patient in regards to her message about continuing to have diarrhea and the inability to eat. The patient voices that yesterday she was hungry so she had a full breakfast consisting of an Jamaican muffin, scrambled eggs, with april crackers. The [...] assistance is needed. Sydney Ahumada RN Gyn/Onc Surgical Brace Maker [facility]12-18-2024 Miscellaneous Notes* Telephone Encounter - Sydney Ahumada RN - 09/22/2024 11:00 AM EST Verified name and . Called the patient in regards to her message about continuing to have diarrhea and the inability to eat. The patient voices that yesterday she was hungry so she had a full breakfast consisting of an Jamaican muffin, scrambled eggs, with april crackers. The [...] assistance is needed. Sydney Ahumada RN Gyn/Onc Surgical Brace Maker documented in [facility] encounter[facility]12-[facility] Telephone encounter Note * Telephone Encounter - Yulia Holm RN - 09/22/2024 10:21 AM EST Sent a note to the balance truer/onc CC to see what treatment she is supposed to be starting. Dr. Hall was not planning on seeing patient until after her post op appointment with Dr. Buckner on 10/07/24. Yulia Holm RN [facility]12-18-2024 Telephone encounter Note* Telephone Encounter - Tyesha Chery 09/22/2024 9:08 AM EST Patient calling to speak with Chemo coordinator. Patient is experiencing diarrhea and having trouble eating. Patient would appreciate a call back. Patient can be reached at [phone] [facility]12-18-2024 Miscellaneous Notes* Telephone Encounter - Tyesha Chery - 09/22/2024 9:08 AM EST Patient calling to speak with Chemo coordinator. Patient is experiencing diarrhea and having trouble eating. Patient would appreciate a call back. Patient can be reached at [phone] documented in this encounterUc [facility]12-18-2024 Telephone encounter Note * Telephone Encounter - Tali Ervin - 09/22/2024 8:33 AM EST Patient calling in about getting her treatments on the schedule. Please review and advise. Tali Ervin September 22, 2024 8:33 AM [facility]12-16-2024 Telephone encounter Note* Telephone Encounter - Sydney Ahumada RN - 09/20/2024 1:49 PM EST Left a VM for the patient to call the office so that I can make sure that she is scheduled for treatments at [place]. Sydney Ahumada RN Gyn/Onc Surgical Brace Maker [facility]12-16-2024 Miscellaneous Notes* Telephone Encounter - Sydney Ahumada RN - 09/20/2024 1:49 PM EST Left a VM for the patient to call the office so that I can make sure that she is scheduled for treatments at [place]. Sydney Ahumada RN Gyn/Onc Surgical Brace Maker documented in this encounterUc [facility]12-13-[address] [facility] History of Present illness Narrative* Lila Sanchez [...] redness, swelling, or foul drainage from incision. Raven removed. Benzoin and steri-strips applied. ASSESSMENT: Incisions [...] pathology. Lila Sanchez RN documented in this encounterUc [facility]12-11-2024 Telephone encounter Note * Telephone Encounter [...] for the follow up. Bethany Amaya RN Surgical Brace Maker [facility]12-11-2024 Miscellaneous Notes* Telephone Encounter - Bethany [...] for the follow up. Bethany Amaya RN Surgical Brace Maker documented in this encounterUc [facility]12-11-[address] [facility]12-11-2024 History of Present illness Narrative* Kendy Pittman RN - 09/15/2024 9:53 AM EST Transition Care Management (TCM) Initial Outreach PCP Update / Actionable Items patient states that yesterday after her virtual appt with balance truer/onc , she drank a K FARM protein [...] states dave intact , abd surgical wounds quotation checker . denies drainage . states area around old ostomy site is slightly red . denies fever . declines pcp appt - prefers to follow up with Dr. Buckner's team. N/A - No specialty updates needed Patient Source: In-Network Discharge Initial outreach: TCM discharge report Outreach Summary: see above Patient discharged from [facility] Discharge date: 09/13/24 Admitted for: REASON FOR HOSPITALIZATION: Interval debulk, ex lap, HANY BSO, Supracolic Omentectomy,RSR with primary E2E anastomosis, ileostomy takedown with S2S E2E reanastomosis Readmission Risk: 12 Value-Based Contract: Mansi BEY Contact: Contact made with patient: Yes Hi, my name is Kendy Pittman RN and I am calling from the [facility] on behalf of your Primary Care [...] like to speak with a social work team physician to help give you support for any [...] I will send your request to a operating room scheduler who will contact and assist you with [...] in TCM Care Management partners utilized: N/A Kendy Pittman RN September 15, 2024 10:28 AM documented in this encounterUc [facility]12-10-20[address] [facility]12-10-2024 History of Present illness Narrative* Rosi Martinez APRN.CLAMP OPERATOR - 09/14/2024 1:36 PM EST VIRTUAL VISIT POSTOP PROGRESS NOTE This is a virtual visit using Audio Only Visit. It required patient-provider interaction for the medical decision making as documented below. I have communicated my name and active licensure. The patient s identity and physical location wereverified at the time of this visit. Either the patient or their legal aircraft sales representative has been informed of the risks [...] and plan of care/chemo at [facility] postop. Rosi Martinez APRN.DELFINO A copy of this office note and a letter were sent to: pgr documented in this encounterUc [facility]12-09-2024 Telephone encounter Note * Telephone Encounter - Yulia Holm RN - 09/13/2024 4:05 PM EST DISCHARGE CALL BACK Today's date: September 13, 2024 Notified of Pt discharge by: epic notification Patient discharged on 09/13/24 from [facility] [place] [facility] Primary Cancer Diagnosis: Ovarian Admitting Diagnosis: Surgical procedure OPERATIONS DURING HOSPITALIZATION: Interval debulk no residual disease, Ex lap, HANY BSO, SupracolicOmentectomy, RSR with primary E2E anastomosis, ileostomy takedown with S2S E2E reanastomosis Discharge Summary/SBAR reviewed: Yes Handoff Discussed with Transitional Surgical Brace Maker: N/A Psychosocial Risk Factors: None If patient discharged to SNF/Rehab Facility, phone call completed to reinforce discharge instructions and follow up: N/A Call Disposition: Will discuss follow-up plan with Dr. Hall Patient is scheduled to see Dr. Buckner on 10/07/24. Surgical pathology is still pending. Yulia Holm RN [facility]12-09-2024 Miscellaneous Notes* Telephone Encounter - Yulia Holm RN - 09/13/2024 4:05 PM EST DISCHARGE CALL BACK Today's date: September 13, 2024 Notified of Pt discharge by: epic notification Patient discharged on 09/13/24 from [facility] to Home Primary Cancer Diagnosis: Ovarian Admitting Diagnosis: Surgical procedure OPERATIONS DURING HOSPITALIZATION: Interval debulk no residual disease, Ex lap, HANY BSO, SupracolicOmentectomy, RSR with primary E2E anastomosis, ileostomy takedown with S2S E2E reanastomosis Discharge Summary/SBAR reviewed: Yes Handoff Discussed with Transitional Surgical Brace Maker: N/A Psychosocial Risk Factors: None If patient discharged to SNF/Rehab Facility, phone call completed to reinforce discharge instructions and follow up: N/A Call Disposition: Will discuss follow-up plan with Dr. Hall Patient is scheduled to see Dr. Buckner on 10/07/24. Surgical pathology is still pending. Yulia Doup, RN documented in this encounterUc [facility]12-09-2024 Telephone encounter Note * Telephone Encounter - Ash Keller PSS - 09/13/2024 2:17 PM EST Date/Time: 09/13/2024 2:17 PM Spoke with LilyCliff (Spouse) @ phone #: - Preferred # for contact: [phone] (Mobile Have you received help from a home care company in the last 60 days? No Are you agreeable to [facility] services? Yes What address will we be seeing you at? [address] [facility] [address] Do you have any upcoming appointments or things we need to schedule around? No Do you have a teachable CG or can you manage your care independently? Yes Who? Spouse Have you received the flu shot? Yes If so, when and where? [facility]12-09-2024 Miscellaneous Notes* Telephone Encounter - Ash Keller PSS - 09/13/2024 2:17 PM EST Date/Time: 09/13/2024 2:17 PM Spoke with Cliff Bautista (Spouse) @ phone #: - Preferred # for contact: [phone] (Mobile Have you received help from a home care company in the last 60 days? No Are you agreeable to [facility] services? Yes What address will we be seeing you at? [address] [facility] [address] Do you have any upcoming appointments or things we need to schedule around? No Do you have a teachable CG or can you manage your care independently? Yes Who? Spouse Have you received the flu shot? Yes If so, when and where? [facility] documented in this encounterUc [facility] Hospital12-09-[address] [facility]12-09-[address] Note[facility]12-09-[facility]12-08-[facility]12-07-[address] [facility]12-06-[facility] Telephone encounter Note* Telephone Encounter - Romel Michelle MD - 09/10/2024 5:49 PM EST Agreeable and will sign, etc [facility]12-06-2024 Miscellaneous Notes* Telephone Encounter - Romel [...] care clinicians may also obtain orders from [facility] Virtualist Providers Thank you and we [...] care clinicians may also obtain orders from [facility] Virtualist Providers Thank you and we would be happy to answer any questions. Ema Hinojosa LPN 09/09/2024 1:54 PM documented in this encounterUc West [facility] Hospital12-06-[address] [facility]12-06-2024 Telephone encounter Note* Telephone Encounter - Ema [...] care clinicians may also obtain orders from [facility] Virtualist Providers Thank you and we would be happy to answer any questions. Ema Hinojosa LPN 09/10/2024 9:03 AM [facility] Work Phone: 1(669) 247-851012-06-2024 NoteSt[facility]12-06-20[address] Note[facility]12-05-2024 Telephone encounter Note* Telephone Encounter - Ema [...] care clinicians may also obtain orders from [facility] Virtualist Providers Thank you and we would be happy to answer any questions. Ema Hinojosa LPN 09/09/2024 1:54 PM [facility]12-05-20[address] [facility]12-04-[address] [facility]12-04-[facility] [facility]12-04-2024 Telephone encounter Note* Telephone Encounter - Ema Vega MD - 09/08/2024 5:02 AM EST Hair Or Beauty Salon Manager Telephone Encounter Patient identity confirmed by name [...] to proceed with surgery. Ema Vega MD [facility] she/her/hers PGY-3 Obstetrics and Gynecology [facility] Work Phone: 1(288) 948-401512-04-2024 Miscellaneous Notes* Telephone Encounter - Ema Vega MD - 09/08/2024 5:02 AM EST Hair Or Beauty Salon Manager Telephone Encounter Patient identity confirmed by name [...] to proceed with surgery. Ema Vega MD [facility] she/her/hers PGY-3 Obstetrics and Gynecology documented in this encounterUc [facility]12-03-2024 History of Present illness Narrative* Fredis Buckner MD - 09/07/2024 11:00 AM EST Images from the original note were not included. Gynecologic Oncology [facility] Preop Re: Sal Bautista CC#: [id number] Date of Service: 09/07/2024 Dr. Romel Michelle [...] suggested. 03/16/2024 Telephone encounter with Aga Meredith APRN.CLAMP OPERATOR Called and spoke with patient~ per Dr. Buckner, he would like to cancel surgery tomorrow and admit herfor paracentesis and placement of feeding tube for poor nutritional status. Called admitting to request bad and advised patient that they would call her when bed becomes available. Updated inpatient team. Updated surgery specialist that her case needs to be cancelled tomorrow. 03/17 - 03/24/2024 [facility] [place] admission - Paracentesis and nutritional optimization PROCEDURES [...] that the malignant cells are positive for Nelson-8, Claudin-4 and negative for D2-40, ER. WT-1 [...] with the plan. 04/09 - 04/13/2024 [facility] [place] admission OPERATIONS DURING HOSPITALIZATION: XL, aborted debulk, [...] and monitor her disease response with interval WL777g and CT scans. We will plan for interval debulking if she responds favorably to treatment. Patient was initially hesitant to consider chemotherapy as she has seen many ovarian cancer patients going through chemotherapy and start deconditioning. Discussed that every patient responds differently to therapy and there are medications that help control her symptoms. We could plan to have patient undergo chemotherapy in [place] with Dr Hall and follow up for [...] Current Treatment with Dr. Nile Hall in [place] Carboplatin AUC 6 and Taxol 135 mg/m2 [...] in size. 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 She is she is interested in what her life expectancy would be if she received no further therapy. I informed her that typically we have lumped all the patients who occur within 6 months of chemotherapy as 1 subgroup with a mediansurvival of approximately 10 months. But the patients who recur on therapy and are three affiliated refractory clearly have a worse prognosis. We currently have 2 studies for three affiliated refractory disease. Onestudy GOG 3076 looking at a new viral agent with three affiliated based chemotherapy versus three affiliated based chemotherapy. This study had promising results and a phase 2 and three affiliated resistant and refractory patients with an overall response rate of 54%. The current studies comparing the viral three affiliated basedchemotherapy versus three affiliated based chemotherapy in a phase 3 trial for FDA approval. She would be acandidate for this trial but this is a randomized trial where the patient may only receive standardof care which would be a three affiliated based chemotherapy with Avastin. This may be an acceptable regimen but she would have to [facility] at [facility]. A second study involves harvesting her T [...] then repeat imaging - Consider switching to Carbo/[place] or Carbo/Doxil 08/25/2024 CT CHEST W IVCON [...] positive. The abdomen is soft and nontender. Electromatic Typist for exam: Tess Amaya RN The sensitive examination was discussed with the Patient or Patient's Authorized Chemical Processing Supervisor. Asapplicable, any other physician, advance practice provider, medical student, or other health professional student that will be observing or involved in the sensitive examination for educational or training purposes was discussed with the Patient or Authorized Chemical Processing Supervisor. The Patient or Authorized Chemical Processing Supervisor has agreed to proceed with the sensitive [...] ATTESTATION: By signing my name below, Hayley Harris, attest that this documentation has been prepared under the direction and in the presence of Fredis Buckner MD. Electronically signed: Narciso Good, September 07, 2024 11:12 AM Provider Attestation: Fredis Harris MD, personally performed the services described in this documentation. All medicalrecord entries made by the karlieibofe were at my direction and in my [...] Level: 5 - High documented in this encounterUc [facility] Hospital12-03-20[address] Note[facility]12-03-2024 Instructions* Patient Instructions* Nena Minor PA-C - 09/07/2024 9:34 AM EST Images from the original note were not included. [facility] PATIENT PREOPERATIVE INSTRUCTIONS No ref. provider found has scheduled you for your procedure at this surgery center: [facility] [place] Scheduling Office: --[address] [place] [address]. Please read below carefully for your personalized [...] office. If you are currently using a tlpw-fpx-xkgm injectable or oral medication for diabetes or [...] please check with your dialysis center or homemaking rehabilitation consultant to see if any adjustments need to [...] Procedures: - YOU MUST HAVE A RESPONSIBLE HOUSING ASSISTANT PROPERTY MANAGER TAKE YOU HOME. A ACCOUNTS PAYABLE LEAD OR BODY RECALL INSTRUCTOR CANNOT BE MADE A RESPONSIBLE HOUSING ASSISTANT PROPERTY MANAGER. - We recommend that a responsible person [...] call the Friday before. Your surgeon s operating room scheduler will tell you what time to call the office. - If you have not reached the departmental operating room scheduler by 5 P.M., call [phone] after 5 P.M. the day before your surgery. Please be aware that emergency situations arise, which may delay or change your surgical time. If this happens, we will notify you as soon as possible and regret any inconvenience. If you already have an Advance Directive, please fax a copy to [phone] or email to for it to be [...] day. Nena Minor PA-C documented in this encounterUc [facility] Hospital12-03-2024 History and physical note * Nena [...] is scheduled for procedure on 09/08/2024 at [facility]. REVIEW OF SYSTEMS: General: No weight loss, malaise or fevers. Neurological: No history of TIA's, stroke, RECRUITMENT SPECIALIST tumor, impaired sensorium, hemiplegia, paraplegia orquadraplegia. No neurological symptoms or problems. Respiratory: No history of current cough or dyspnea, or pneumonia in the past 6 weeks. No history of respiratory/pulmonary symptoms or problems. Cardiovascular: No history of HTN requiring medication, no history of angina, CHF, MS, cardiac surgery or stents. Denies rest pain, [...] 6 hours as neededfor pain. nutritional supplement (Plazapoints (Cuponium) STANDARD 1.4) 0.06 G - 1.4 Kcal/mL [...] Imm Admin: COVID-19 vaccine, age 12+ yr (PFIZER-Mobstats [facility]) 07/15/2023 Postponed until 07/19/2023 by Romel Michelle [...] (1.65m) Wt 126 lb 1.7 oz (57.2kg) [id number]% BMI 20.98 kg/(m^2). PHYSICAL EXAM: General: alert [...] 374 QTC Calculation (Bazett) 441 Calculated P [place] 67 Calculated R [place] 59 Calculated T [place] 60 Impression NORMAL SINUS RHYTHM POSSIBLE LEFT ATRIAL ENLARGEMENT ST ABNORMALITY, POSSIBLE DIGITALIS EFFECT ABNORMAL ECG No results found for this or any previous visit (from the past 49830 hour(s)). Spirometry Data No data to display Instructions Given to Patient: Instructions located in the after visit summary. Patient given verbal and written preop instructions and voices comprehension and compliance. SIGNATURE: Nena Mionr PA-C PATIENT NAME: Sal Bautista DATE: 09/07/2024 TIME: 9:42 AM [facility]12-03-2024 History and physical note* Nena Minor [...] is scheduled for procedure on 09/08/2024 at [facility]. REVIEW OF SYSTEMS: General: No weight loss, malaise or fevers. Neurological: No history of TIA's, stroke, RECRUITMENT SPECIALIST tumor, impaired sensorium, hemiplegia, paraplegia orquadraplegia. No neurological symptoms or problems. Respiratory: No history of current cough or dyspnea, or pneumonia in the past 6 weeks. No history of respiratory/pulmonary symptoms or problems. Cardiovascular: No history of HTN requiring medication, no history of angina, CHF, MS, cardiac surgery or stents. Denies rest pain, [...] 6 hours as neededfor pain. nutritional supplement (Plazapoints (Cuponium) STANDARD 1.4) 0.06 G - 1.4 Kcal/mL [...] Imm Admin: COVID-19 vaccine, age 12+ yr (PFIZER-[employer] [place]) 07/15/2023 Postponed until 07/19/2023 by Romel Michelle [...] (1.65m) Wt 126 lb 1.7 oz (57.2kg) [id number]% BMI 20.98 kg/(m^2). PHYSICAL EXAM: General: alert [...] 374 QTC Calculation (Bazett) 441 Calculated P [place] 67 Calculated R [place] 59 Calculated T [place] 60 Impression NORMAL SINUS RHYTHM POSSIBLE LEFT ATRIAL ENLARGEMENT ST ABNORMALITY, POSSIBLE DIGITALIS EFFECT ABNORMAL ECG No results found for this or any previous visit (from the past 64710 hour(s)). Spirometry Data No data to display Instructions Given to Patient: Instructions located in the after visit summary. Patient given verbal and written preop instructions and voices comprehension and compliance. SIGNATURE: Nena Minor PA-C PATIENT NAME: Sal Bautista DATE: 09/07/2024 TIME: 9:42 AM documented in this encounterUc [facility] Hospital11-29-2024 Instructions* Patient Instructions* Kellie Hussein, VOLCANOLOGY PROFESSOR - 09/03/2024 10:31 AM EST Images from the original note were not included. ACLS SPECIALIST ONCOLOGY PHYSICIAN CONTACT INFORMATION [place] [phone] Surgeons: Dr. Beckie Buckner Hair Or Beauty Salon Manager Oncology advanced practice providers: Carey Elias APRN.DANDRE White APRN.CNP After 4:30 pm or on holidays or weekends, call: or [phone]. Ask the operatorto page the balance truer oncologist confidential secretary. PRE-OPERATIVE CHECKLIST: PATIENT INSTRUCTIONS PRIOR TO SURGERY [...] vitamin E, herbal medications, diet pills, and cvot-mbw-tlxzeui medications. Tylenol (acetaminophen) is okay. I will not wear jewelry, body piercing(s), makeup, nail comoran, hairpins, or contacts on the day ofsurgery. [...] my surgeon. Discuss medication changes with your tank car reconditioner or primary care physician as well. If I stopped taking my blood-thinning medication, I will ask the surgeon when to resume taking it. If I am an outpatient, a responsible person will drive me home and it was suggested that someone stay with me for 24 hours. I understand that a school business manager or cabdriver is NOT a responsible caregiver. [...] time for surgery, I must call my surgical instrument maker after 2pm the day beforesurgery. Pre-operative instructions [...] THE DAY OF SURGERY/CHECK IN Report to [place] [address] for surgery. A map is located in Your Surgical Guide Book. The online version of the surgical guide book can be found at: [email or web address] The address is [address] [place] [address] INFECTION PREVENTION Please notify your doctor if [...] Your Surgical Guide Book for more information. [facility] TEAM At the [facility], we have a multidisciplinary team of caregivers that includes fellows, residents, nurse practitioners, physician assistants, clinical nurse specialists, nurses, medical assistants, patient care nursing assistants, social workers, geriatric case manager and many others. We all have different [...] disposal station (located in many of the [facility] pharmacies). Do not flush them down [...] communicate. Forms can be found on the [facility] Advance Directives site. You do not need a waste specialist to complete advance directive documents. [email or web address] nce-directives Talking about end-of-life issues is difficult, but it truly is a gift to your loved ones. We suggest using The Conversation Project (thejellyfishationproject.org) to help guide you through discussing and [...] JPEG format. You can also mail to: [facility] Health Information Management, Ab7 Advance Directive Processing [address] [place], [place] [address] documented in this encounterUc West Chester Hospital11-29-2024 Note[facility]11-29-2024 History of Present illness Narrative* Kellie Hussein LPN - 09/03/2024 10:21 AM EST DATE OF SERVICE: 09/03/2024 PROBLEM: Sal Bautista presents for pre-op teaching. PRE-OP DIAGNOSIS: High grade ovarian cancer (HCC) [C56.9] SCHEDULED SURGERY AND DATE: EUA, ex-lap, tumor debulking, possible bowel resection. 1204/2024 PRIMARY SURGEON: Fredis Buckner MD NURSING PREOP ASSESSMENT: Fevers, chills, cough, or nasal congestion: No Vaginal itching, burning, discharge, or odor: No Pain with urination, frequency, urgency, cloudy or foul smelling urine: No If yes to any of the above then MD notified: Not Applicable ADVANCED CARE PLANNING: Does the patient have an advanced directive: No Does [facility] have a copy of the patient's [...] prescribed by anesthesia, internal medicine, surgeon, or REORDERING CLERK Stop NSAIDs, Aspirin (ASA), vitamins, herbal supplements, [...] jewelry, body piercing, makeup, contacts, lotions, nail comoran on fingers, or anything in hair on arrival to surgery Wear low healed shoes and loose fitting clothing Leave all valuables at home or with a family member Directions to [facility] and the [facility] Parking/parking validation on the day [...] - IV pain medication after surgery, IV BYPRODUCTS MAKER if ordered by MD, discharged home with [...] please send any FMLA papers to physician's elementary secretary. SYMPTOMS TO NOTIFY MD - Fever, chills, nausea, vomiting, increased or severe pain, heavy vaginal bleeding, foul smelling vaginal drainage, pain or swelling in extremities. URGENT SYMPTOMS - Call 911 or go to ER if any shortness of breath, difficulty breathing, or chest pain. HOW TO CONTACT PHYSICIAN - Physician's office phone number given to patient, if after hours patientinstructed to call blast furnace operator and ask for confidential secretary balance truer onc resident. ONESIMO program offered to patient: [...] None Educator: Kellie Hussein LPN [facility] [place] documented in this encounterU[facility]11-27-[facility]24 Instructions* Patient Instructions* Karla Ford APRN.CLAMP OPERATOR - 09/01/2024 4:21 PM EST Images from the original note were not included. Please visit the following website for the [facility] surgery guide. [email or web address] PATIENT SURGICAL CHECKLIST - NEXT STEPS Your surgeon's office will call you to arrange your surgery date and pre- admission testing appointments. You should receive a call within 2-5 business days from our scheduling team. (If you do not receive a call within 5 days - please call [phone]) Pre-admission testing appointments include: - Preop anesthesia [...] You will receive a call from the surgery specialist the business day prior to your surgery as to when and where to arrive on the day of your scheduled surgery ACLS SPECIALIST ONCOLOGY PHYSICIAN CONTACT INFORMATION Surgery Scheduling Office Surgeons: Dr. Beckie Billy Dr. Marely Foster Dr. Caleb Blanc Dr. Mercedes Green Dr. Debbie Resendez Dr. Moustapha Luis Dr. Fredis Buckner Dr. Alex Shukla Dr. Pino Pathak Hair Or Beauty Salon Manager Oncology Nurse Practitioners: Tess Tabares, WATER COMMISSIONER.DELFINO Watson, WATER COMMISSIONER.DELFINO Ford, WATER COMMISSIONER.DELFINO Middleton, WATER COMMISSIONER.DELFINO Martinez, WATER COMMISSIONER.DELFINO Ferrell, SABRINA.DELFINO After 4:30 pm or on holidays or weekends, call: or . Ask the operatorto page the balance truer oncologist confidential secretary. PRE-OPERATIVE CHECKLIST: PATIENT INSTRUCTIONS PRIOR TO SURGERY [...] vitamin E, herbal medications, diet pills, and wwqh-wzw-fnzpqab medications. Tylenol (acetaminophen) is okay. I will not wear jewelry, body piercing(s), makeup, nail comoran, hairpins, or contacts on the day ofsurgery. [...] my surgeon. Discuss medication changes with your tank car reconditioner or primary care physician as well. If I stopped taking my blood-thinning medication, I will ask the surgeon when to resume taking it. If I am an outpatient, a responsible person will drive me home and it was suggested that someone stay with me for 24 hours. I understand that a school business manager or cabdriver is NOT a responsible caregiver. [...] time for surgery, I must call my surgical instrument maker after 2pm the day beforesurgery. Pre-operative instructions given by: PREOP INSTRUCTIONS THE DAY OF SURGERY/CHECK IN Report to DESK J1-9 for surgery. A map is located in Your Surgical Guide Book. The online version of the surgical guide book can be found at: [email or web address] The address is [address] [place] [address]/[place] [address] INFECTION PREVENTION Please notify your doctor if [...] Your Surgical Guide Book for more information. [facility] TEAM At the [facility], we have a multidisciplinary team of caregivers that includes fellows, residents, nurse practitioners, physician assistants, clinical nurse specialists, nurses, medical assistants, patient care nursing assistants, social workers, geriatric case manager and many others. We all have different [...] disposal station (located in many of the [facility] pharmacies). Do not flush them down [...] breathing, or chest pain. documented in this encounterUc [facility] Hospital11-27-2024 Telephone encounter Note * Telephone Encounter [...] Buckner MD Masci, Paul A, DO; Usha Retana, ALICIA; Karla Ford APRN.CNP Paul Yes she has continued to respond I [...] want to reconsider surgery? Thank you, Nile [facility]11-27-2024 Miscellaneous Notes* Telephone Encounter - Karla Ford APRN.CNP - 09/01/2024 4:14 PM EST Images from the original note were not included. Received message from Dr. Buckner: Called and spoke with patient and she is agreeable to debulking. Will place orders for 09/08. She will see Dr. Buckner 09/[address] review and preop consent. Fredis Buckner MD Masci, Paul A, ; Usha Retana, PCNA; Karla Ford APRN.CNP Paul Yes she has continued to respond I [...] surgery? Thank you, Nile documented in this encounterUc [facility] Hospital11-20-2024 History of Present illness Narrative* Bushra Liu, RT(R) - 08/25/2024 9:00 AM EST Radiology Service [...] PATIENT PRESENTS WITH AN IMPLANTABLE OR ATTACHED CANVAS MARKER: No ALLERGIES: Reviewed and unchanged CONTRAST ALLERGY: [...] 2024 TIME: 9:23 AM documented in this encounterUc [facility]-20-[facility] encounter Note* Telephone Encounter - Matthew Moreland RN - 08/19/2024 4:25 PM EST IRB#: [id number] Study name: G [id number]: A Phase 2, Open-Label, Randomized, Non-Comparative Clinical Trial of [id number] Monotherapy and in Combination With Nivolumab in Subjects With Recurrent Ovarian Cancers PI: Dr. Fredis Buckner Date 08/19/2024 Left voice message for patient to call research back. This study was closed to enrollment this morning and is therefore no longer an option for participation. Will notify patient of this information once she returns research call. Matthew Moreland RN [facility]11-14-[facility]24 Miscellaneous Notes* Telephone Encounter - Matthew Moreland RN - 08/19/2024 4:25 PM EST IRB#: [id number] Study name: GOG [id number]: A Phase 2, Open-Label, Randomized, Non-Comparative Clinical Trial of [id number] Monotherapy and in Combination With Nivolumab in Subjects With Recurrent Ovarian Cancers PI: Dr. Fredis Buckner Date 08/19/2024 Left voice message for patient to call research back. This study was closed to enrollment this morning and is therefore no longer an option for participation. Will notify patient of this information once she returns research call. Matthew Moreland RN documented in this encounterUc [facility] Hospital11-06-2024 History of Present illness Narrative* Nile Hall DO - 08/11/2024 9:27 AM EST Oncologic problem(s): [...] 6 hours as neededfor pain. nutritional supplement (Plazapoints (Cuponium) STANDARD 1.4) 0.06 G - 1.4 Kcal/mL [...] Abs Lymph 1.00 - 4.00 k/uL 1.17 Appling% % 30.3 Abs Appling <0.87 k/uL 0.92 (H) Eosin% % 1.3 [...] mg/dL 2.0 Genetic testing: Invitae panel negative. NGS/biomarkers/guard driver mutation analyses: Baseline CA125 320 units/mL [...] necessary. Nile Hall DO documented in this encounterUc [facility] Hospital10-23-2024 Telephone encounter Note * Telephone Encounter - Anahi Dyer - 07/28/2024 4:04 PM EDT Ok. Thank you Anahi Mathews [facility]10-23-2024 Miscellaneous Notes* Telephone Encounter - Anahi [...] Thank you, Anahi Mathews documented in this encounterUc West [facility] Hospital10-23-2024 Telephone encounter Note * Telephone Encounter - Nile Hall DO - 07/28/2024 3:57 PM EDT Keep her scheduled for at least 1 more treatment on 08/11 and 08/12. Nile Hall DO [facility]10-23-[facility]24 Telephone encounter Note* Telephone Encounter - [...] this correct? Thank you, Anahi Deutsch Pss [facility]10-21-2024 Telephone encounter Note* Telephone Encounter - Matthew Moreland RN - 07/26/2024 1:15 PM EDT IRB#: [id number] Study name: GOG [id number]: A Phase 2, Open-Label, Randomized, Non-Comparative Clinical Trial of ADP-[id number] Monotherapy and in Combination With Nivolumab in [...] GOG-3084 study. Main study consent sent via [employer]. Encouraged the patient to reach out to research with any questions. aMtthew Moreland RN [facility]10-21-2024 Miscellaneous Notes* Telephone Encounter - Matthew Moreland RN - 07/26/2024 1:15 PM EDT IRB#: [id number] Study name: G 3084: A Phase 2, Open-Label, Randomized, Non-Comparative Clinical Trial of ADP-[id number] Monotherapy and in Combination With Nivolumab in [...] available. Patient requesting additional information regarding the G-3084 study. Main study consent sent via [employer]. Encouraged the patient to reach out to research with any questions. Matthew Moreland RN documented in this encounterUc [facility] Hospital10-17-2024 Telephone encounter Note * Telephone Encounter - Sana Morales - 07/22/2024 4:28 PM EDT Patient returned call and will be in tomorrow [facility] Work Phone: [phone]) 194-891510-17-2024 Miscellaneous Notes* Telephone Encounter - Sana Morales [...] questions. Corrina Jaime LPN documented in this encounterUc West Chester Hospital10-17-2024 Telephone encounter Note * Telephone Encounter - Corrina Jaime LPN - 07/22/2024 4:18 PM EDT Left detailed message on patient's VM letting her know that Dr. Hall spoke with Dr. Buckner and that the plan is to continue Carbo/Taxol and she should keep her treatment appointment 07/23/2024. CA 125is 55. Patient to contact office for any questions. Corrina Jaime LPN [facility]10-16-2024 History of Present illness Narrative* Nile Hall [...] Abs Lymph 1.00 - 4.00 k/uL 1.17 Appling% % 30.3 Abs Appling <0.87 k/uL 0.92 (H) Eosin% % 1.3 [...] mg/dL 2.0 Genetic testing: Invitae panel negative. NGS/biomarkers/guard driver mutation analyses: Baseline CA125 320 units/mL [...] which included preparing to see the patient, mtga-ef-lxne patient care, completing clinical documentation, obtaining and/or reviewing separately obtained history, performing a medically appropriate examination, counseling and educating the pat ient/family/caregiver, communicating with other HCPs (not separately reported), and communicating results to the patient/family/caregiver. Nile Hall DO documented in this encounterUc West [facility] Hospital10-13-2024 History of Present illness Narrative* Leia Eaton RN - 07/18/2024 7:50 PM EDT IRB#: [id number] Study name: GOG 3084: A Phase 2, Open-Label, Randomized, Non-Comparative Clinical Trial of ADP-[id number] Monotherapy and in Combination With Nivolumab in [...] Friday07/19/2024. Leia Eaton RN documented in this encounterUc West Chester Hospital10-11-2024 History of Present illness Narrative* Fredis Buckner MD - 07/16/2024 3:20 PM EDT Images from the original note were not included. Gynecologic Oncology [facility] Follow up Re: Sal Barrett Lily CC#: [id number] Date of Service: 07/16/2024 Dr. Romel Michelle [...] suggested. 03/16/2024 Telephone encounter with Aga Meredith APRN.CLAMP OPERATOR Called and spoke with patient~ per Dr. Buckner, he would like to cancel surgery tomorrow and admit herfor paracentesis and placement of feeding tube for poor nutritional status. Called admitting to request bad and advised patient that they would call her when bed becomes available. Updated inpatient team. Updated surgery specialist that her case needs to be cancelled tomorrow. 03/17 - 03/24/2024 [facility] admission - Paracentesis and nutritional optimization PROCEDURES [...] that the malignant cells are positive for Nelson-8, Claudin-4 and negative for D2-40, ER. WT-1 [...] agreement with the plan. 04/09 - 04/13/2024 [facility] admission OPERATIONS DURING HOSPITALIZATION: XL, aborted debulk, [...] and monitor her disease response with interval SC293c and CT scans. We will plan for interval debulking if she responds favorably to treatment. Patient was initially hesitant to consider chemotherapy as she has seen many ovarian cancer patients going through chemotherapy and start deconditioning. Discussed that every patient responds differently to therapy and there are medications that help control her symptoms. We could plan to have patient undergo chemotherapy in [place] with Dr Hall and follow up for [...] Current Treatment with Dr. Nile Hall in [place] Carboplatin AUC 6 and Taxol 135 mg/m2 [...] in size. 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 She is she is interested in what her life expectancy would be if she received no further therapy. I informed her that typically we have lumped all the patients who occur within 6 months of chemotherapy as 1 subgroup with a median survival of approx imately 10 months. But the patients who recur on therapy and are three affiliated refractory clearly have aworse prognosis. We currently have 2 studies for three affiliated refractory disease. One study GOG 3076 looking at a new viral agent with three affiliated based chemotherapy versus three affiliated based chemotherapy. Thisstudy had promising results and a phase 2 and three affiliated resistant and refractory patients with an overall response rate of 54%. The current studies comparing the viral three affiliated based chemotherapy versus three affiliated based chemotherapy in a phase 3 trial for FDA approval. She would be a candidate for this trial but this is a randomized trial where the patient may only receive standard of care which woul d be a three affiliated based chemotherapy with Avastin. This may be an acceptable regimen but she would have to receive [facility] at [facility]. A second study involves harvesting her T [...] CC: Nile Hall DO documented in this encounterUc [facility] Hospital09-25-2024 History of Present illness Narrative* Nile Hall [...] 6 hours as neededfor pain. nutritional supplement (Plazapoints (Cuponium) STANDARD 1.4) 0.06 G - 1.4 Kcal/mL [...] Abs Lymph 1.00 - 4.00 k/uL 1.17 Appling% % 30.3 Abs Appling <0.87 k/uL 0.92 (H) Eosin% % 1.3 [...] mg/dL 2.0 Genetic testing: Invitae panel negative. NGS/biomarkers/guard driver mutation analyses: Baseline CA125 320 units/mL [...] which included preparing to see the patient, qggw-xk-yvag patient care, completing clinical documentation, obtaining and/or reviewing separately obtained history, performing a medically appropriate examination, counseling and educating the pat ient/family/caregiver, ordering medications, tests, or procedures, communicating with other HCPs (not separately reported), and communicating results to the patient/family/caregiver. Nile Hlal DO documented in this encounterUc West [facility] Hospital09-18-2024 History of Present illness Narrative* Bushra Liu RT(R) - 06/23/2024 10:40 AM EDT Radiology [...] PATIENT PRESENTS WITH AN IMPLANTABLE OR ATTACHED CANVAS MARKER: No ALLERGIES: Reviewed and unchanged CONTRAST ALLERGY: [...] 2024 TIME: 11:47 AM documented in this encounterUc West Chester Hospital09-18-2024 History of Present illness Narrative* Jamarcus Gomez MS - 06/23/2024 1:13 AM EDT Genetic test results Sal Bautista's Multi-Cancer panel through [facility] was negative for a pathogenic variant. Please see [employer] message for further discussion. Jamarcus Gomez MS, [facility] Licensed, Certified Genetic Counselor documented in this encounterUc West Chester Hospital09-13-2024 History of Present illness Narrative* Estefany Valerio, RD - 06/18/2024 1:30 PM EDT Oncology Nutrition Therapy Reassessment I have communicated my name and active licensure. The patient's identity and physical location wereverified at the time of this visit. Either the patient or their legal aircraft sales representative has been informed of the risks [...] day. Pt will start using nutrition jitendra (Clarimedix or Stockezy pal) to log at least three days of nutrition. Educational materials provided: diet with ileostomy 06/18/24: Improving from a nutrition standpoint Ostomy output - adequate, thicker [employer] 1.4 twice per day (1.5 cartons) Food record - pen and paper Calories - able to get up to 4043-0962 calories per day Weight gain: 5lbs over [...] Dosing Weight: 55.3 kg Estimated kilocalorie needs: 4762-5164 kilocalories determined by 30-35 kcal/kg Estimated protein [...] Estefany Valerio RD, LD documented in this encounterUc West Chester Hospital09-10-2024 Telephone encounter Note * Telephone Encounter - Tarsha Carballo - 06/15/2024 3:35 PM EDT Spoke with patient and connected her to a operating room scheduler for Dr. Buckner for scheduling. Tarsha Carballo [facility]09-10-2024 Miscellaneous Notes* Telephone Encounter - Tarsha Carballo - 06/15/2024 3:35 PM EDT Spoke with patient and connected her to a operating room scheduler for Dr. Buckner for scheduling. Tarsha Carballo * Telephone Encounter - Nile Hall DO - 06/14/2024 12:[address] Fredis Buckner wanted to see her for follow-up after her third cycle and CT scans. Please schedule her for appointment with him after the CTs. Nile Hall DO documented in this encounterUc West Chester Hospital09-10-2024 History of Present illness Narrative* Jamarcus Gomez MS - 06/15/2024 8:52 AM EDT [facility] Department of Medical Genetics Consultation Note Genetic Counselor: Jamarcus Gomez MS, [facility] Patient: Sal Bautista This visit was conducted via [employer]. I have communicated my name and active licensure. The patient's identity and physical location were verified at the time of this visit. Either the patient or their legal aircraft sales representative has been informed of the risks [...] DX W/COLLJ SPEC WHEN PFRMD Comment: [place] 11/22/[place]: ESOPHAGOGASTRODUODENOSCOPY TRANSORAL DIAGNOSTIC Comment: [place] 04/2024: ILEOSTOMY CANCER SURVEILLANCE HISTORY: Mammograms: Yes [...] appropriate standard National Comprehensive Cancer Network and [place] Cancer Society guidelines, with consideration of their [...] NTHL1, PALB2, PDGFRA, PMS2, POLD1, POLE, POT1, PRGYM8K, PTCH1, PTEN, RAD51C, RAD51D, RB1, RET, SDHA, SDHAF2, SDHB, SDHC, SDHD, SMAD4, SMARCA4, SMARCB1, SMARCE1, STK11, SUFU, KENQ016, TP53, TSC1, TSC2, and VHL The Multi-Cancer [...] patient's request, I will contact her by [employer] or telephone to review these results. A follow up genetic counseling visit will be scheduled if requested. Mrs. Bautista reports her has a significant family history of ovarian cancer. It is recommended that he consider his own Genetics consultation as well. The patient was seen for a total of 35 minutes, greater than 50% of which was spent yjgr-ey-ceqk counseling. This plan is being carried out under the oversight of Dr. Ivelisse Noland. This note will also be sent to the referring provider via the electronic medical record. Jamarcus Gomez MS, [facility] Licensed, Certified Genetic Counselor [facility] CC: Dr. Fredis Dillon documented in this encounterUc West Chester Hospital09-09-2024 Telephone encounter Note * Telephone Encounter - Nile Hall DO - 06/14/2024 12:[address] Fredis Buckner wanted to see her for follow-up after her third cycle and CT scans. Please schedule her for appointment with him after the CTs. Nile Hall DO [facility]09-06-[facility] History of Present illness Narrative* Olesya Daniel RN - 06/11/2024 9:00 AM EDT Assessment unchanged from office visit with Yumiko Nuñez CNP on 06/08/24 documented in this encounterUc West Chester Hospital09-05-2024 Miscellaneous Notes* [facility] Agency [place] - Avril Graham RN - 06/10/2024 9:26 AM EDT SITUATION: Senior Care agency discharge visit completed today. only patient [...] being on her own at this time. train operations manager to set up acct at [facility] and updated supply list on fron [...] for additional medical questions/concerns. documented in this encounterUc West Chester Hospital09-05-2024 Patient's home Note* [facility] Agency [place] - Avril Graham RN - 06/10/2024 9:26 AM EDT SITUATION: Senior Care agency discharge visit completed today. only patient [...] being on her own at this time. train operations manager to set up acct at [facility] and updated supply list on fron [...] with Dr. Buckner for additional medical questions/concerns. [facility] Work Phone: 1(424) 831-201009-03-2024 History of Present illness Narrative* Linda Nuñez APRN.CLAMP OPERATOR - 06/08/2024 1:11 PM EDT Chief Complaint [...] 1.00 - 4.00 k/uL 0.91 (L) 1.00 Appling% % 12.9 13.6 Abs Appling <0.87 k/uL 0.64 0.39 Eosin% % 0.6 [...] as necessary for today's visit. Linda Nuñez APRN.DELFINO documented in this encounterUc West [facility] Hospital08-26-2024 Miscellaneous Notes* SN Routine - Avril Graham RN - 05/31/2024 9:41 AM EDT SITUATION: Senior Care routine visit completed today. only patient present [...] specific): probable agency dc. documented in this encounterUc West [facility] Hospital08-26-2024 Patient's home Note* SN Routine - Avril Graham RN - 05/31/2024 9:41 AM EDT SITUATION: Senior Care routine visit completed today. only patient present [...] focus on (be specific): probable agency dc. [facility] Work Phone: 1(327) 114-215008-24-2024 Telephone encounter Note* Telephone Encounter - Jason Oswald RN - 05/29/2024 12:10 PM EDT [facility] 1[facility]2 beginning week of 05/30 due to peristomal issues. We would like to continue to see the patient a few more weeks to assist with getting the issue resolved. Thank you in advance for your review and response to this request. Jason Oswald RN [facility] Work Phone: 1(692) 514-834508-24-2024 Miscellaneous Notes* Telephone Encounter - Jason Oswald RN - 05/29/2024 12:10 PM EDT [facility] 1wk2 beginning week of 05/30 due to peristomal issues. We would like to continue to see the patient a few more weeks to assist with getting the issue resolved. Thank you in advance for your review and response to this request. Jason Oswald RN [facility] documented in this encounterUc West Chester Hospital08-20-2024 Telephone encounter Note * Telephone Encounter - Jason Oswald RN - 05/25/2024 11:56 AM EDT Shalini Buckner. May we extend home health nurse 1wk2 due to recent difficulties with ostomy? Thank you in advance for your review and response to this request. Jason Oswald RN [facility] Coordination [facility] Work Phone: 1(297) 617-962608-20-2024 Miscellaneous Notes* Telephone Encounter - Jason Oswald RN - 05/25/2024 11:56 AM EDT Shalini Buckner. May we extend home health nurse 1wk2 due to recent difficulties with ostomy? Thank you in advance for your review and response to this request. Jason Oswald RN [facility] Coordination documented in this encounterUc West [facility] Hospital08-19-2024 Miscellaneous Notes* SN Routine - Avril Graham RN - 05/24/2024 9:26 AM EDT SITUATION: Senior Care routine visit completed today. only patient present [...] able to find a precut pouch on [employer] website and this was ordered today. Requesting [...] Assess peristomal skin irritation documented in this encounterUc West Chester Hospital08-19-2024 Patient's home Note* SN Routine - Avril Graham RN - 05/24/2024 9:26 AM EDT SITUATION: Senior Care routine visit completed today. only patient present [...] able to find a precut pouch on [employer] website and this was ordered today. Requesting [...] precut pouches arrivs? Assess peristomal skin irritation [facility] Work Phone: [phone]) 211-971508-14-2024 Telephone encounter Note* Telephone Encounter - Romel Michelle MD - 05/19/2024 7:50 PM EDT Error [facility]08-14-2024 Miscellaneous Notes* Telephone Encounter - Romel Michelle MD - 05/19/2024 7:50 PM EDT Error * Telephone Encounter - Estelle Monreal LPN - 05/19/2024 6:14 PM EDT Patient had called requesting PCP review testing results and advise. Reports given to PCP. Estelle Monreal LPN documented in [facility] encounter[facility] Telephone encounter Note * Telephone Encounter - Estelle Monreal LPN - 05/19/2024 6:14 PM EDT Patient had called requesting PCP review testing results and advise. Reports given to PCP. Estelle Monreal LPN [facility]08-14-2024 Telephone encounter Note* Telephone Encounter - Tyesha Chery - 05/19/2024 11:40 AM EDT Face to Face Attestation uploaded. Documents signed and faxed to [facility] at [phone] [facility]08-14-2024 Miscellaneous Notes* Telephone Encounter - Tyesha Chery - 05/19/2024 11:40 AM EDT Face to Face Attestation uploaded. Documents signed and faxed to [facility] at [phone] documented in [facility] encounter[facility] History of Present illness Narrative* Alma Boucher, CECILIA - 05/19/2024 8:28 AM EDT Pt stated no changes to assessment from OV yesterday. Alma Boucher, RN documented in [facility] encounterU[facility]24 Telephone encounter Note * Telephone Encounter - Sana Morales - 05/19/2024 8:11 AM EDT Scheduled [facility] Work Phone: [phone]) 720-931108-14-2024 Miscellaneous Notes* Telephone Encounter - Sana Morales [...] cycle 3. Kellie Ferrera documented in this encounterU[facility]08-13-2024 Telephone encounter Note * Telephone Encounter - Mer Smith LPN - 05/18/2024 2:01 PM EDT Pended. Mer Smith LPN [facility]08-13-2024 Telephone encounter Note* Telephone Encounter - Sana Morales - 05/18/2024 1:[address] orders. Schedule CT C/A/P 2 weeks after cycle 3. Cycle 3 is 06/11. [facility]08-13-2024 Telephone encounter Note* Telephone Encounter - Kellie Ferrera - 05/18/2024 1:05 PM EDT Check out comments: CT C/A/P 2 weeks after cycle 3. Kellie Ferrera [facility]08-13-2024 History of Present illness Narrative* Estefany Valerio [...] 05/18/24: Improved ostomy output. Pt is using Dobleas 1.4 once per day Total daily calories is estimated to be around 1200 calories. She has had additional weight loss and discussed increasing nutrition to 1600 calories per day. Pt will start using nutrition jitendra (Clarimedix or Stockezy pal) to log at least three days of [...] Dosing Weight: 55.3 kg Estimated kilocalorie needs: 3034-9365 kilocalories determined by 30-35 kcal/kg Estimated protein [...] 6 hours as neededfor pain. nutritional supplement (Plazapoints (Cuponium) STANDARD 1.4) 0.06 G - 1.4 Kcal/mL [...] Estefany Valerio RD, LD documented in this encounterUc [facility]08-13-2024 History of Present illness Narrative* Nile Hall [...] and is vegetarian. Saw oncology nutrition. Using Dobleas supplement. Follows a white diet. No symptoms [...] DX W/COLLJ SPEC WHEN PFRMD Comment[place]: ESOPHAGOGASTRODUODENOSCOPY TRANSORAL DIAGNOSTIC Comment: [place] 04/2024: ILEOSTOMY ALLERGIES No Known Allergies Current [...] tablet by mouth as needed. nutritional supplement (Plazapoints (Cuponium) STANDARD 1.4) 0.06 G - 1.4 Kcal/mL [...] which included preparing to see the patient, [id number] patient care, completing clinical documentation, obtaining and/or reviewing separately obtained history, performing a medically appropriate examination, counseling and educating the pat ient/family/caregiver, ordering medications, tests, or procedures, communicating with other HCPs (not separately reported), and communicating results to the patient/family/caregiver. Nile Hall DO documented in this encounterU[facility]08-[facility]-2024 Miscellaneous Notes* SN Routine - Avril Graham RN - 05/17/2024 9:21 AM EDT SITUATION: [facility] routine visit completed today. only patient present [...] small meals frequently and supplementing the the Dobleas. She takes fluids well. Geronimo NOMNC for probable dc next week and will have Mitesh Oswald set her up with DME for her ongoing supply needs. See intervention summary for education details. Patient demonstrated a need for further skilled SN services for ostomy management & education. Current Discharge plan: self-care RECOMMENDATION: Next visit to focus on (be specific): ostomy pouch change and probable agency dc. documented in [facility] encounterU[facility] Patient's home Note* SN Routine - Avril Graham RN - 05/17/2024 9:21 AM EDT SITUATION: Senior Care routine visit completed today. only patient present [...] small meals frequently and supplementing the the [employer]. She takes fluids well. SNreviewed NOMNC [...] ostomy pouch change and probable agency dc. [facility] Work Phone: [phone]) 881-552408-09-2024 Telephone encounter Note* Telephone Encounter - Yulia Holm RN - 05/14/2024 12:01 PM EDT Care Coordination Triage Note [facility] Situation: Patient reports Bowel symptoms Background: ovarian [...] Holm RN May 14, 2024 12:01 PM [facility]08-09-2024 Miscellaneous Notes* Telephone Encounter - Yulia Holm RN - 05/14/2024 12:01 PM EDT Care Coordination Triage Note [facility] Situation: Patient reports Bowel symptoms Background: ovarian [...] to clinical before weekend. documented in this encounterU[facility]08-[facility]-2024 Telephone encounter Note * Telephone Encounter - Sana Morales - 05/14/2024 11:48 AM EDT Patient called requesting to speak to clinical. She states she was having IBS symptoms and it seemsto be under control. However, she would like to talk to clinical before weekend. [facility] Work Phone: 1(235) 983-604708-09-2024 Telephone encounter Note* Telephone Encounter - Corrina Jaime LPN - 05/14/2024 10:30 AM EDT Last read by Sal Bautista at 3:20 PM on 05/13/2024. [facility]08-09-2024 Miscellaneous Notes* Telephone Encounter - Corrina [...] BID when hospitalized. 04/13/2024 documented in [facility] encounterU[facility]08-[facility]-2024 Telephone encounter Note * Telephone Encounter - Corrina Jaime LPN - 05/13/2024 2:43 PM EDT Second message left for patient to contact office and/or check [employer] messages. Corrina Jaime LPN [facility]08-08-2024 Miscellaneous Notes* SN Routine - Avril Graham RN - 05/13/2024 9:36 AM EDT SITUATION: Senior Care routine visit completed today. only patient present [...] specific): ostomy pouch change. documented in [facility] encounterU[facility]08-[facility] Patient's home Note* Routine - Arvil Graham RN - 05/13/2024 9:36 AM EDT SITUATION: Senior Care routine visit completed today. only patient present [...] focus on (be specific): ostomy pouch change. [facility] Work Phone: 1(485) 576-587608-06-2024 Telephone encounter Note* Telephone Encounter - Liz Dubose LPN - 05/11/2024 3:50 PM EDT Left detailed message on voicemail also informed to check her my chart for Dr. Hall response. Liz Dubose LPN [facility]08-06-2024 Telephone encounter Note* Telephone Encounter - [...] for prophylactic reasons. No history of VTE. [facility]08-06-2024 Telephone encounter Note* Telephone Encounter - Sana Morales - 05/11/2024 10:06 AM EDT Patient took last tablet yesterday. [facility] Work Phone: [phone]) 440-667508-06-2024 Telephone encounter Note* Telephone Encounter - Liz Dubose LPN - 05/11/2024 9:48 AM EDT Left message on pts. Voicemail wondering how much Eliquis she has on hand. Will await return call. Liz Dubose LPN [facility]08-05-2024 Telephone encounter Note* Telephone Encounter - Nile Hall DO - 05/10/2024 5:12 PM EDT How much does she have left? [facility]08-05-2024 Telephone encounter Note* Telephone Encounter - Sana Morales - 05/10/2024 4:05 PM EDT Patient called asking if she is to continue eliquis and if so, can she have an alternative due to cost. Pt. Was placed on Eliquis 2.5 mg tabs , BID when hospitalized. 04/13/2024 [facility]08-05-2024 Miscellaneous Notes* SN Routine - Avril Graham RN - 05/10/2024 9:46 AM EDT SITUATION: Senior Care routine visit completed today. only patient present [...] new flat flange arrived? documented in this encounterUc [facility]08-[facility]-2024 Patient's home Note* SN Routine - Avril Graham RN - 05/10/2024 9:46 AM EDT SITUATION: Senior Care routine visit completed today. only patient present [...] change, has the new flat flange arrived? [facility] Work Phone: [phone]) [phone] Miscellaneous Notes* SN Routine - Avril Graham RN - 05/06/2024 9:21 AM EDT SITUATION: Senior Care routine visit completed today. only patient present [...] change, assess peristomal skin. documented in this encounterU[facility]08-[facility]-2024 Patient's home Note* SN Routine - Avril Graham RN - 05/06/2024 9:21 AM EDT SITUATION: Senior Care routine visit completed today. only patient present [...] specific): ostomy pouch change, assess peristomal skin. [facility] Work Phone: [phone] Telephone encounter Note* Telephone Encounter - Yulia Holm RN - 05/03/2024 1:27 PM EDT Patient called back, message given to patient. Yulia Holm RN [facility]07-29-2024 Miscellaneous Notes* Telephone Encounter - Yulia [...] met with Estefany Valerio. Denies N/V/D Drinking Dobleas protein shakes. Integument: None Activity: Patient reported [...] morning. UA and culture tomorrow am at [facility]. Empiric therapy with Macrobid. Rx sent. No [...] back. Yulia Holm RN documented in this encounterUc [facility]07-29-2024 Telephone encounter Note * Telephone Encounter - Yulia Holm RN - 05/03/2024 1:23 PM EDT Called patient, no answer, left a VM requesting a call back from patient. Patient can stop macrobid. Repeat UA in a couple of weeks. Added to appointment notes for next labsvisit in May. Yulia Holm RN [facility]07-29-2024 Telephone encounter Note* Telephone Encounter - Yulia Holm RN - 05/03/2024 12:29 PM EDT CYCLE 1/DAY 1 POST TREATMENT CALL Today's date: May 03, 2024 Treatment Regimen: Carboplatin/Taxol C1D1 Date: 7/24/24 Called patient to follow-up on symptom management. Spoke with patient SYMPTOM ASSESSMENT Neuro: None CV/Resp: Bleeding hematuria noted Friday. It's better denies seeing blood in her urine now. Patient thought that she was going a little more frequently than usual, better now. Denies dysuria. GI/: Appetite: no changes in appetite, appetite poor-- met with Estefany Valerio. Denies N/V/D Drinking Dobleas protein shakes. Integument: None Activity: Patient reported [...] after hours number protocol. Yulia Holm RN [facility]07-29-2024 Miscellaneous Notes* [facility] Routine - Avril Graham RN - 05/03/2024 9:16 AM EDT SITUATION: Senior Care routine visit completed today. only patient present [...] measurement, assess peristomal skin. documented in this encounterUc [facility]07-29-2024 Patient's home Note* SN Routine - Avril Graham RN - 05/03/2024 9:16 AM EDT SITUATION: Senior Care routine visit completed today. only patient present [...] change, assess stoma measurement, assess peristomal skin. [facility] Work Phone: [phone] Telephone encounter Note* Telephone Encounter - Nile Hall DO - 04/30/2024 9:24 PM EDT Patient called after having episode mild gross hematuria. Other than occasional twinge of pain inpelvis, no urinary symptoms, fever or chills. Advised her to hold apixaban tonight and tomorrow morning. UA and culture tomorrow am at [facility]. Empiric therapy with Macrobid. Rx sent. No side effects from chemotherapy per se as of now. Nile Hall DO [facility]07-25-2024 Telephone encounter Note* Telephone Encounter - Yulia Holm RN - 04/29/2024 9:50 AM EDT CYCLE 1/DAY 1 POST TREATMENT CALL Today's date: April 29, 2024 Treatment Regimen: Carboplatin/Taxol C1D1 Date: 04/28/2024 Called patient to follow-up on symptom management, no answer, left a VM requesting a call back. Yulia Holm RN [facility]07-25-2024 Miscellaneous Notes* SN Routine - Avril Graham RN - 04/29/2024 9:26 AM EDT SITUATION: Senior Care routine visit completed today. only patient present [...] continue hands on care. documented in this encounterUc [facility]07-[facility]-2024 Patient's home Note* SN Routine - Avril Graham RN - 04/29/2024 9:26 AM EDT SITUATION: Senior Care routine visit completed today. only patient present [...] specific): have pt continue hands on care. [facility] Work Phone: 1(761) 530-568307-23-2024 History of Present illness Narrative* Teodoro Estefany, RD - 04/27/2024 3:30 PM EDT Oncology [...] Dosing Weight: 55.3 kg Estimated kilocalorie needs: 4935-9811 kilocalories determined by 30-35 kcal/kg Estimated protein [...] a day. 48 tablet 0 nutritional supplement (JAYLIN FARMS STANDARD 1.4) 0.06 [...] up in one month Referred/Supervised by: Dr Rfaael LEMOS Billing Type: Initial Assess/15 min 3 units Billed Time: 45 minutes Signed by: Estefany Valerio RD, RANI documented in this encounterUc [facility]07-23-2024 Telephone encounter Note * Telephone Encounter - Brooklyn Earl - 04/27/2024 12:00 PM EDT 1st time treatment report. Spoke with patient over the phone today. Patient is active with [employer] Medicare, LOC 96%, $0 deductible has $0 remaining, $1500 OOP has $1321.55 remaining. Estimate shows patient financial responsibility is $68.56 for each treatment in 2023 until oop max is reached. Patient stated understanding. Reference #[id number] Explained [employer] co-pay assistance to patient. Pt requested more info about foundation to be sent via email. Emailed pt contact info, FN hot card. [facility]07-23-2024 Miscellaneous Notes* Telephone Encounter - Brooklyn Earl - 04/27/2024 12:00 PM EDT 1st time treatment report. Spoke with patient over the phone today. Patient is active with [employer] Medicare, LOC 96%, $0 deductible has $0 remaining, $1500 OOP has $1321.55 remaining. Estimate shows patient financial responsibility is $68.56 for each treatment in 2023 until oop max is reached. Patient stated understanding. Reference #[id number] Explained [employer] co-pay assistance to patient. Pt requested more info about foundation to be sent via email. Emailed pt contact info, FN hot card. documented in this encounterU[facility]07-[facility]-2024 Miscellaneous Notes* SN Routine - Avril Graham RN - 04/26/2024 12:54 PM EDT SITUATION: Senior Care routine visit completed today. only patient present [...] new pouch as well. documented in this encounterU[facility]07-[facility]-2024 Patient's home Note* SN Routine - Avril Graham RN - 04/26/2024 12:54 PM EDT SITUATION: Senior Care routine visit completed today. only patient present [...] have her place new pouch as well. [facility] Work Phone: [phone] Nurse Note* Yulia Holm RN - 04/26/2024 11:54 AM EDT This visit was completed via telephone. Yulia Holm RN [facility]07-22-2024 Nurse Note* Yulia Holm RN - [...] Holm RN - 04/26/2024 11:49 AM EDT Surgical Brace Maker Pre Chemo Patient identified by name and date of . YES Confirmed date and time for chemotherapy ? YES Other appointments (labs, imaging) discussed? YES Discussed where to park ([address]), charge for parking YES Discussed where to [...] needed: Yulia Holm RN documented in this encounterUc [facility]07-22-2024 Nurse Note* Yulia Holm RN - [...] minutes REFERRAL (RECOMMENDATION): Nutrition Yulia Holm RN [facility]07-22-2024 Nurse Note* Yulia Holm RN - 04/26/2024 11:49 AM EDT Surgical Brace Maker Pre Chemo Patient identified by name and date of . YES Confirmed date and time for chemotherapy ? YES Other appointments (labs, imaging) discussed? YES Discussed where to park ([place] tier), charge for parking YES Discussed where to [...] topics discussed, interventions needed: Yulia Holm RN [facility]07-18-2024 History of Present illness Narrative* Starla Fluton RN - 04/22/2024 4:06 PM EDTSummary: ED [...] to 03/24/2024 - Hospital admit in [facility] [place] for inadequate nutrition 04/09/2024 to 04/13/2024 Hospital admit in [place] for pelvic mass OPERATIONS DURING HOSPITALIZATION: XL, aborted debulk, diverting loop ileostomy Patient was seen in hematology today Patient Attributed To: QAE Payer: Mansi BEY Action Taken: Referrals/Routed: NA Contact made with patient: No, Chart review only. Signature: Starla Fulton RN documented in this encounterUc [facility] Hospital07-18-2024 Miscellaneous Notes* SN Routine - Mariajose Carpenter RN - 04/22/2024 11:15 AM EDT SITUATION: Senior Care routine visit completed today. only patient also [...] hands on with nurse documented in this encounterUc [facility] Hospital07-18-2024 Patient's home Note* SN Routine - Mariajose Carpenter RN - 04/22/2024 11:15 AM EDT SITUATION: Senior Care routine visit completed today. only patient also [...] patient complete steps hands on with nurse [facility] Work Phone: 1([phone]) 349-825507-18-2024 History of Present illness Narrative* Nile Hall DO - 04/22/2024 9:10 AM EDT Patient referred [...] mouth two times a day. nutritional supplement (Plazapoints (Cuponium) STANDARD 1.4) 0.06 G - 1.4 Kcal/mL [...] which included preparing to see the patient, [id number] patient care, completing clinical documentation, obtaining and/or reviewing separately obtained history, performing a medically appropriate examination, counseling and educating the pat ient/family/caregiver, ordering medications, tests, or procedures, communicating with other HCPs (not separately reported), and communicating results to the patient/family/caregiver. Nile Hall DO documented in this encounterUc [facility] Hospital07-16-2024 Telephone encounter Note * Telephone Encounter - Xena Moralesissa - 04/20/2024 10:53 AM EDT Scheduled with patient [facility] Work Phone: [phone]) 449-739707-16-2024 Miscellaneous Notes* Telephone Encounter - Sana Morales [...] the schedule new consult. Thank you, Anahi Mathews documented in this encounterUc [facility] Hospital07-16-2024 Telephone encounter Note * Telephone Encounter - Tarsha Carballo - 04/20/2024 10:45 AM EDT 2nd attempt - left message. When she calls, please move consul up to 04/22 in the held appointment spot. Tarsha Carballo [facility]07-15-2024 Telephone encounter Note* Telephone Encounter - Tarsha Carballo - 04/19/2024 4:36 PM EDT Per clinical staff, Dr. Hall would like to see the patient on 04/22/24 at 9:10. (2 patients will need moved.) Left message for néstor to return call. When she calls, please offer 04/22 at 9:10 (arrive at 8:40). Tarsha Carballo [facility]07-15-2024 Miscellaneous Notes* SN Routine - Avril Graham RN - 04/19/2024 2:41 PM EDT SITUATION: Senior Care routine visit completed today. spouse also present [...] options with Dr Hall. Pt is agreeable. Raven were removed at surgeon's office and steristrips [...] pt get new supplies? Ostomy nurse from [facility] ordered convex flanges with Lock and [...] steps to get there. documented in this encounterUc [facility] Hospital07-15-2024 Patient's home Note* [facility] Routine - Avril Graham RN - 04/19/2024 2:41 PM EDT SITUATION: Senior Care routine visit completed today. spouse also present [...] options with Dr Hall. Pt is agreeable. Raven were removed at surgeon's office and steristrips [...] pt get new supplies? Ostomy nurse from [facility] ordered convex flanges with Lock and [...] with taking baby steps to get there. [facility] Work Phone: [phone] Telephone encounter Note* Telephone Encounter - Anahi Dyer - 04/19/2024 1:[address]Peter Buckner's office called to schedule Sal to see for ovarian cancer. I scheduled patient in the next new spot of 05/10/2024. Please advise if there is anything else patient needs before prior to the schedule new consult. Thank you, Anahi Deutsch Pss [facility]07-15-2024 Nurse Note* Tess Tabares RN - 04/19/2024 12:06 PM EDT Dave removed per Dr Buckner order. Raven removed without difficulty. Patient tolerated well. Steri-strips applied and wound care instructions given. Tess Tabares RN [facility]07-15-2024 Nurse Note* Tess Tabares RN - 04/19/2024 12:06 PM EDT Dave removed per Dr Buckner order. Dave removed without difficulty. Patient tolerated well. Steri-strips applied and wound care instructions given. Tess Tabares RN documented in this encounterUc [facility] Hospital07-15-2024 History of Present illness Narrative* Fredis Buckner MD - 04/19/2024 11:30 AM EDT Gynecologic Oncology [facility] Postop Re: Sal Bautista [facility]#: [id number] Date of Service: 04/19/2024 Dr. Romel Michelle [...] suggested. 03/16/2024 Telephone encounter with Aga Meredith APRN.CLAMP OPERATOR Called and spoke with patient~ per Dr. Buckner, he would like to cancel surgery tomorrow and admit herfor paracentesis and placement of feeding tube for poor nutritional status. Called admitting to request bad and advised patient that they would call her when bed becomes available. Updated inpatient team. Updated surgery specialist that her case needs to be cancelled tomorrow. 03/17 - 03/24/2024 [facility] admission - Paracentesis and nutritional optimization PROCEDURES [...] that the malignant cells are positive for Nelson-8, Claudin-4 and negative for D2-40, ER. WT-1 [...] with the plan. 04/09 - 04/13/2024 [place] admission OPERATIONS DURING HOSPITALIZATION: XL, aborted debulk, [...] dave removed, steri-strips applied. Functional RLQ colostomy. Electromatic Typist offered: Patient accepts, visit chaperoned by Tess [...] and monitor her disease response with interval BT652e and CT scans. We will plan for interval debulking if she responds favorably to treatment. Patient was initially hesitant to consider chemotherapy as she has seen many ovarian cancer patients going through chemotherapy and start deconditioning. Discussed that every patient responds differently to therapy and there are medications that help control her symptoms. We could plan to have patient undergo chemotherapy in [place] with Dr Hall and follow up for [...] ATTESTATION: By signing my name below, Hayley Harris, attest that this documentation has been prepared under the direction and in the presence of Fredis Buckner MD. Electronically signed: Narciso Good, April 19, 2024 11:52 AM Provider Attestation: Fredis Harris MD, personally performed the services described in [...] Level: 4 - Moderate documented in this encounterUc [facility] Hospital07-11-2024 Miscellaneous Notes* SN SOC - Avril Graham RN - 04/15/2024 9:21 AM EDT SITUATION: Senior Care SOC visit completed today. spouse also present during today's visit. patient reports the following: Allergies--reviewed Medications--full medication reconciliation completed Falls--None DME-Reviewed and added to chart BACKGROUND: Discharged/Referral from [facility] on 04/13/24 following treatment for exp [...] coping, plan for tx. documented in this encounterUc [facility]07-11-2024 Patient's home Note* SN SOC - Avril Graham RN - 04/15/2024 9:21 AM EDT SITUATION: Senior Care SOC visit completed today. spouse also present during today's visit. patient reports the following: Allergies--reviewed Medications--full medication reconciliation completed Falls--None DME-Reviewed and added to chart BACKGROUND: Discharged/Referral from acute care hospital on 04/13/24 following treatment for exp [...] pain management, pt coping, plan for tx. [facility] Work Phone: 1(686) 135-350307-08-2024 Telephone encounter Note* Telephone Encounter - Brielle Quezada - 04/12/2024 3:47 PM EDT Date/Time: 04/12/2024 3:49 PM Spoke with Cliff Bautista @ phone #: [phone] - Preferred # for contact: [phone] Have you received help from a home care company in the last 60 days? NO Are you agreeable to [facility] services? YES What address will we be seeing you at? [facility] [place] [id number] Do you have any upcoming appointments or things we need to schedule around? NO Do you have a teachable CG or can you manage your care independently? CG NOT SURE ON FLU SHOT [facility] Work Phone: 1(230) 290-435807-08-2024 Miscellaneous Notes* Telephone Encounter - Brielle Quezada - 04/12/2024 3:47 PM EDT Date/Time: 04/12/2024 3:49 PM Spoke with Cliff Bautista @ phone #: [phone] - Preferred # for contact: [phone] Have you received help from a home care company in the last 60 days? NO Are you agreeable to [facility] services? YES What address will we be seeing you at? [address] [place] [address] Do you have any upcoming appointments or things we need to schedule around? NO Do you have a teachable CG or can you manage your care independently? CG NOT SURE ON FLU SHOT documented in this encounterU[facility]07-[facility] History of Present illness Narrative* Liz Mary, CECILIA - 04/06/2024 4:09 PM EDT TRANSITION CARE MANAGEMENT (TCM) FOLLOW-UP NOTE Provider Action/FYI Fabric Value Based Non-Response Follow up Unable to reach patient, left a message. Discharge Network Status: In-Network Discharge Summary: Pt discharged from [facility] on 03/24/24. Admitted for: Inadequate nutrition Surgical Brace Maker plan for next outreach: No further follow up needed at this time ONESIMO Education Ordered -: No Liz Parra RN April 06, 2024 4:10 PM documented in this encounterUc [facility] Hospital06-28-2024 Instructions* Patient Instructions* Estefany Cash PA-C - 04/02/2024 3:22 PM EDT PATIENT PREOPERATIVE INSTRUCTIONS [facility] [place] [facility] Scheduling Office: [phone] --[address] [place] [address]. Please read below carefully for your personalized instructions. Arrival Time for Surgery: - To obtain your arrival time for surgery, call your physician's office the day before your surgery. - If your surgery is scheduled for Friday, call the Friday before. Your surgeon s operating room scheduler will tell you what time to call the office. - If you have not reached the departmental operating room scheduler by 5 P.M., call [phone] after 5 P.M. the day before your [...] Advance Directive, please fax a copy to [phone] or email to for it to be [...] your chart that day. documented in this encounterUc [facility] Hospital06-28-2024 History and physical note * Estefany [...] Initiated: Orders placed by surgeon/surgical service in [facility]. Orders Placed This Encounter ECG (IN [...] COVID-19 Immunization Status Overdue - Covid-19 Vaccine () Overdue since 06/06/2023 07/15/2023 Postponed until 07/19/2023 [...] fever. Neurological: No history of TIA's, stroke, RECRUITMENT SPECIALIST tumor, impaired sensorium, hemiplegia, paraplegia orquadraplegia. No neurological symptoms or problems. Respiratory: No history of current cough or dyspnea, or pneumonia in the past 6 weeks. No history of respiratory/pulmonary symptoms or problems. Cardiovascular: No history of HTN requiring medication, no history of angina, CHF, MS, cardiac surgery or stents. Denies rest pain, [...] > 1 time per night or hematuria. ACLS SPECIALIST: See HPI. Endocrine: No history of diabetes. [...] and at 11pm Taking Yes nutritional supplement (Plazapoints (Cuponium) STANDARD 1.4) 0.06 G - 1.4 Kcal/mL [...] ENLARGEMENT BORDERLINE ECG Confirmed by TOY OCASIO, [facility] ([id number]) on 04/02/2024 4:36:[address] chest 03/16/24 [...] DATE: 04/02/2024 TIME: 3:14 PM PAGER/CONTACT #: [facility] History and physical note* Estefany Cash [...] Initiated: Orders placed by surgeon/surgical service in [facility]. Orders Placed This Encounter ECG (IN [...] fever. Neurological: No history of TIA's, stroke, RECRUITMENT SPECIALIST tumor, impaired sensorium, hemiplegia, paraplegia orquadraplegia. No neurological symptoms or problems. Respiratory: No history of current cough or dyspnea, or pneumonia in the past 6 weeks. No history of respiratory/pulmonary symptoms or problems. Cardiovascular: No history of HTN requiring medication, no history of angina, CHF, MS, cardiac surgery or stents. Denies rest pain, [...] > 1 time per night or hematuria. ACLS SPECIALIST: See HPI. Endocrine: No history of diabetes. [...] and at 11pm Taking Yes nutritional supplement (Plazapoints (Cuponium) STANDARD 1.4) 0.06 G - 1.4 Kcal/mL [...] ENLARGEMENT BORDERLINE ECG Confirmed by TOY OCASIO, [facility] ([id number]) on 04/02/2024 4:36:[address] chest 03/16/24 [...] 3:14 PM PAGER/CONTACT #: documented in this encounterUc [facility] Hospital06-27-2024 Telephone encounter Note * Telephone Encounter - Johana Perrin RN - 04/01/2024 10:48 AM EDT Call placed to patient and notified. Johana Perrin RN [facility]06-27-2024 Miscellaneous Notes* Telephone Encounter - Johana [...] would send in a prescription to [facility] for something for nausea. Patient reports nausea [...] advise, Johana Perrin RN documented in this encounterUc [facility] Hospital06-27-2024 Telephone encounter Note * Telephone Encounter - Cathy Coles APRN.CNP - 04/01/2024 10:26 AM EDT Short term zofran script sent. [facility] Telephone encounter Note* Telephone Encounter - [...] Please review and advise, Johana Perrin RN [facility]06-26-2024 History of Present illness Narrative* Xiao Owens RN - 03/31/2024 1:47 PM EDT TRANSITION CARE MANAGEMENT (TCM) FOLLOW-UP NOTE Provider Action/FYI TCM (Fabric Value Based non response follow up) ACLS SPECIALIST office visit with Dr. Fredis Buckner completed [...] Status: In-Network Discharge Summary: Pt discharged from [facility] on 03/24/24. Admitted for: Inadequate nutrition Surgical Brace Maker plan for next outreach: No further follow up needed at this time ONESIMO Education Ordered -: No Xiao Owens RN March 31, 2024 1:47 PM documented in this encounterUc [facility] Hospital06-24-2024 History of Present illness Narrative* Fredis Buckner MD - 03/29/2024 3:40 PM EDT Gynecologic Oncology [facility] Follow up Re: Sal Barrett Lily [facility]#: [id number] Date of Service: 03/29/2024 Dr. Romel Michelle [...] 11.0 03/16/2024 Telephone encounter with Aga Meredith APRN.CLAMP OPERATOR Called and spoke with patient~ per Dr. Buckner, he would like to cancel surgery tomorrow and admit herfor paracentesis and placement of feeding tube for poor nutritional status. Called admitting to request bad and advised patient that they would call her when bed becomes available. Updated inpatient team. Updated surgery specialist that her case needs to be cancelled tomorrow. 03/17 - 03/24/2024 [facility] [place] admission - Paracentesis and nutritional optimization PROCEDURES [...] that the malignant cells are positive for Nelson-8, Claudin-4 and negative for D2-40, ER. WT-1 [...] plan. ATTESTATION: By signing my name below, Hayley Harris, attest that this documentation has been prepared under the direction and in the presence of Fredis Buckner MD. Electronically signed: Narciso Good, March 29, 2024 3:58 PM Provider Attestation: Fredis Harris MD, personally performed the services described in [...] Level: 4 - Moderate documented in this encounterUc [facility] Hospital06-21-2024 Telephone encounter Note * Telephone Encounter - Carey Elias APRN.CNP - 03/26/2024 6:11 PM EDT Reviewed chart. Patient will need appt to come in to see on 03/29/2024 in afternoon. Can you please see if she is available to come in @ 340pm. Thanks [facility] Work Phone: 1(687) 458-986906-21-2024 Miscellaneous Notes* Telephone Encounter - Carey Elias APRN.CNP - 03/26/2024 6:11 PM EDT Reviewed chart. Patient will need appt to come in to see on 03/29/2024 in afternoon. Can you please see if she is available to come in @ 340pm. Thanks * Telephone Encounter - Bee Anglin RN - 03/26/2024 2:14 PM EDT Patient was discharged form [facility] after 03/17-03/24/24 admission. Did not go home [...] Will update medical team. documented in this encounterUc [facility] Hospital06-21-2024 History of Present illness Narrative* Deloris Martinez RN - 03/26/2024 3:37 PM EDT Images from the original note were not included. TRANSITIONAL CARE MANAGEMENT (TCM) COMMUNITY MONITORING PROGRAM Provider Action/FYI: Bria Waddell Tcm Hub [facility] Outreach #1 - Discharged: March 24, 2024 - Patient has not clicked url after 3 attempts SUMMARY: Discharge Network Status: In-Network Discharge Pt discharged from [facility] on 03/24/24. Admitted for: Inadequate nutrition Friday April 05, 2024 2:50 PM Post Op with Fredis Buckner MD Gynecology Contact made with patient: NO unable to reach pt. Left Outreach ended documented in this encounterUc [facility] Hospital06-21-2024 Telephone encounter Note * Telephone Encounter - Bee Anglin RN - 03/26/2024 2:14 PM EDT Patient was discharged form [facility] after 03/17-03/24/24 admission. Did not go home [...] and drinking supplements Will update medical team. [facility] Telephone encounter Note* Telephone Encounter - Romel Michelle MD - 03/24/2024 1:14 PM EDT Agree with verbal okay as noted below [facility] Miscellaneous Notes* Telephone Encounter - Romel Michelle MD - 03/24/2024 1:14 PM EDT Agree with verbal okay as noted below * Telephone Encounter - Matthew Woodard RN - 03/24/2024 12:41 PM EDT Gladys Nurse with [facility] calling to see if provider will follow for [facility] home care. Since provider already agreed to follow and sign orders for [facility], verbal order giventhat provider will follow. Msg sent to provider to notify. * Telephone Encounter - Romel Michelle MD - 03/22/2024 5:01 PM EDT Will follow and sign orders * Telephone Encounter - Linn Harman LPN - 03/22/2024 4:49 PM EDT Romel Michelle MD [facility] is reviewing for home care services- Please advise if you are agreeable to signing and following for [facility] services? Our Clinicians will be sending the Plan of Care to you for review and approval. They will reach out for any appropriate orders required to provide home care services for the patient. We are not able to initiate HHC services without a following provider. Home care clinicians may also obtain orders from [facility] Providers Thank you and we would be happy to answer any questions. Linn Harman LPN 03/22/2024 4:49 PM documented in this encounterUc [facility] Hospital06-19-2024 Telephone encounter Note * Telephone Encounter - Matthew Woodard RN - 03/24/2024 12:41 PM EDT Gladys Nurse with [facility] calling to see if provider will follow for [facility]. Since provider already agreed to follow and sign orders for [facility], verbal order giventhat provider will follow. Msg sent to provider to notify. [facility]06-17-[facility] Telephone encounter Note* Telephone Encounter - Romel Michelle MD - 03/22/2024 5:01 PM EDT Will follow and sign orders [facility]06-17-2024 Telephone encounter Note* Telephone Encounter - Linn Harman LPN - 03/22/2024 4:49 PM EDT Romel Michelle MD [facility] is reviewing for home care services- [...] care clinicians may also obtain orders from [facility] Virtualist Providers Thank you and we would be happy to answer any questions. Linn Harman LPN 03/22/2024 4:49 PM [facility] Work Phone: 1(998) 938-877806-11-2024 Telephone encounter Note* Telephone Encounter - Aga Meredith APRN.CNP - 03/16/2024 9:18 AM EDT Called and spoke with patient~ per Dr. Buckner, he would like to cancel surgery tomorrow and admit herfor paracentesis and placement of feeding tube for poor nutritional status. Called admitting to request bad and advised patient that they would call her when bed becomes available. Updated inpatient team. Updated surgery specialist that her case needs to be cancelled tomorrow. Aga Meredith APRN.DELFINO [facility] Work Phone: 1(230) 342-667306-11-2024 Instructions* Patient Instructions* Lila Sanchez RN - 03/16/2024 9:18 AM EDT Images from the original note were not included. ACLS SPECIALIST ONCOLOGY PHYSICIAN CONTACT INFORMATION [place] [phone] Surgeons: Dr. Beckie Buckner Hair Or Beauty Salon Manager Oncology Nurse Practitioners: Carey Elias APRN.DELFINO Mcneil APRN.DELFINO Alicea APRN.DELFINO Natarajan APRN.CNP After 4:30 pm or on holidays or weekends, call: or . Ask the operatorto page the balance truer oncologist confidential secretary. PRE-OPERATIVE CHECKLIST: PATIENT INSTRUCTIONS PRIOR TO SURGERY [...] vitamin E, herbal medications, diet pills, and xplq-fzm-plqnaah medications. Tylenol (acetaminophen) is okay. I will not wear jewelry, body piercing(s), makeup, nail comoran, hairpins, or contacts on the day ofsurgery. [...] my surgeon. Discuss medication changes with your tank car reconditioner or primary care physician as well. If I stopped taking my blood-thinning medication, I will ask the surgeon when to resume taking it. If I am an outpatient, a responsible person will drive me home and it was suggested that someone stay with me for 24 hours. I understand that a school business manager or cabdriver is NOT a responsible caregiver. [...] time for surgery, I must call my surgical instrument maker after 2pm the day beforesurgery. Pre-operative instructions [...] DAY OF SURGERY/CHECK IN Report to DESK [facility] for surgery. A map is located in Your Surgical Guide Book. The online version of the surgical guide book can be found at: [email or web address] The address is [address] [place] [address]/[place] [address] INFECTION PREVENTION Please notify your doctor if [...] Your Surgical Guide Book for more information. [facility] TEAM At the [facility], we have a multidisciplinary team of caregivers that includes fellows, residents, nurse practitioners, physician assistants, clinical nurse specialists, nurses, medical assistants, patient care nursing assistants, social workers, geriatric case manager and many others. We all have different [...] disposal station (located in many of the [facility] pharmacies). Do not flush them down [...] communicate. Forms can be found on the [facility] Advance Directives site. You do not need a waste specialist to complete advance directive documents. [email or web address] nce-directives Talking about end-of-life issues is difficult, but it truly is a gift to your loved ones. We suggest using The Conversation Project (theconversationproject.org) to help guide you through discussing and [...] to your next appointment, or email to [email or web address] as an attachment in either PDF, TIFF, or JPEG format. You can also mail to: [facility] Information Management, Ab7 Advance Directive Processing [address] [place], [place] [address] documented in this encounterUc West [facility] Hospital06-11-2024 Miscellaneous Notes* Telephone Encounter - Aga Meredith APRN.CNP - 03/16/2024 9:18 AM EDT Called and spoke with patient~ per Dr. Buckner, he would like to cancel surgery tomorrow and admit herfor paracentesis and placement of feeding tube for poor nutritional status. Called admitting to request bad and advised patient that they would call her when bed becomes available. Updated inpatient team. Updated surgery specialist that her case needs to be cancelled tomorrow. Aga Meredith APRN.CNP documented in this encounterUc [facility] Hospital06-11-2024 History of Present illness Narrative* Lila Sanchez RN - 03/16/2024 9:17 AM EDT DATE [...] patient have an advanced directive: No Does [facility] have a copy of the patient's [...] prescribed by anesthesia, internal medicine, surgeon, or REORDERING CLERK Stop NSAIDs, Aspirin (ASA), vitamins, herbal supplements, [...] jewelry, body piercing, makeup, contacts, lotions, nail comoran on fingers, or anything in hair on arrival to surgery Wear low healed shoes and loose fitting clothing Leave all valuables at home or with a family member Directions to [facility] and the [facility] Parking/parking validation on the day [...] - IV pain medication after surgery, IV BYPRODUCTS MAKER if ordered by MD, discharged home with [...] please send any FMLA papers to physician's elementary secretary. SYMPTOMS TO NOTIFY MD - Fever, chills, nausea, vomiting, increased or severe pain, heavy vaginal bleeding, foul smelling vaginal drainage, pain or swelling in extremities. URGENT SYMPTOMS - Call 911 or go to ER if any shortness of breath, difficulty breathing, or chest pain. HOW TO CONTACT PHYSICIAN - Physician's office phone number given to patient, if after hours patientinstructed to call blast furnace operator and ask for confidential secretary balance truer onc resident. ONESIMO program offered to patient: [...] None Educator: Lila Sanchez RN [facility] documented in this encounterUc West [facility] Hospital06-11-2024 History of Present illness Narrative* Bushra [...] PATIENT PRESENTS WITH AN IMPLANTABLE OR ATTACHED CANVAS MARKER: No RADIOLOGY DEPARTMENT: CT; Exam(s) Completed: Chest PERIPHERAL IV DATA: Not applicable SIGNED BY: RT Maira(R) March 16, 2024 4:15 PM documented in this encounterUc [facility] Hospital06-10-2024 Instructions* Patient Instructions* Tarsha Alicea APRN.CNP - 03/15/2024 3:17 PM EDT Images from the original note were not included. Please visit the following website for the [facility] surgery guide. [email or web address] PATIENT SURGICAL CHECKLIST - NEXT STEPS Your surgeon's office will call you to arrange your surgery date and pre- admission testing appointments. You should receive a call within 2-5 business days from our scheduling team. (If you do not receive a call within 5 days - please call [phone]) Pre-admission testing appointments include: - Covid Testing (if indicated) - Preop exam either with [facility] (pre-anesthesia consultation clinic) or with the REORDERING CLERK from the surgical team - Preop nurse teaching appointment (can also be done over the phone) - Lab work - Any other testing that the provider orders for prior to surgery if needed You will receive a call from the surgery specialist the business day prior to your surgery as to when and where to arrive on the day of your scheduled surgery ACLS SPECIALIST ONCOLOGY PHYSICIAN CONTACT INFORMATION Surgery Scheduling Office Surgeons: Dr. Beckie Resendez Dr. Moustapha Luis Dr. Ferdis Pathak Hair Or Beauty Salon Manager Oncology Nurse Practitioners: Aga Meredith, WATER COMMISSIONER.DELFINO Watson, WATER COMMISSIONER.DELFINO Ford, WATER COMMISSIONER.DELFINO Middleton, WATER COMMISSIONER.DELFINO Decker, WATER COMMISSIONER.DELFINO Vann, WATER COMMISSIONER.CLAMP OPERATOR After 4:30 pm or on holidays or weekends, call: or . Ask the operatorto page the balance truer oncologist confidential secretary. PRE-OPERATIVE CHECKLIST: PATIENT INSTRUCTIONS PRIOR TO SURGERY [...] vitamin E, herbal medications, diet pills, and xhdc-wnl-tjccvsi medications. Tylenol (acetaminophen) is okay. I will not wear jewelry, body piercing(s), makeup, nail comoran, hairpins, or contacts on the day ofsurgery. [...] my surgeon. Discuss medication changes with your tank car reconditioner or primary care physician as well. If I stopped taking my blood-thinning medication, I will ask the surgeon when to resume taking it. If I am an outpatient, a responsible person will drive me home and it was suggested that someone stay with me for 24 hours. I understand that a school business manager or cabdriver is NOT a responsible caregiver. [...] time for surgery, I must call my surgical instrument maker after 2pm the day beforesurgery. Pre-operative instructions given by: PREOP INSTRUCTIONS THE DAY OF SURGERY/CHECK IN Report to DESK J1-9 for surgery. A map is located in Your Surgical Guide Book. The online version of the surgical guide book can be found at: [email or web address] The address is [address] [place] [address] INFECTION PREVENTION Please notify your doctor if [...] Your Surgical Guide Book for more information. [facility] TEAM At the [facility], we have a multidisciplinary team of caregivers that includes fellows, residents, nurse practitioners, physician assistants, clinical nurse specialists, nurses, medical assistants, patient care nursing assistants, social workers, geriatric case manager and many others. We all have different [...] disposal station (located in many of the [facility] pharmacies). Do not flush them down [...] breathing, or chest pain. documented in this encounterUc West [facility] Hospital06-10-2024 History of Present illness Narrative* Fredis Buckner MD - 03/15/2024 2:00 PM EDT Gynecologic Oncology [facility] Consultation Re: Sal Bautista [facility]#: [id number] Date of Service: 03/15/2024 Consultation requested by [...] colon cancer? no Is the patient Ashkenazi Sikhism (i.e. from [place] or [place])? no [...] pain and bloating - denies dysuria, incontinence ACLS SPECIALIST- no abnormal vaginal bleeding, discharge SKIN- denies [...] exams reveal a large anterior pelvic mass Electromatic Typist offered: Patient accepts, visit chaperoned by Mercedes Green MD; Ema Gonzalez RN IMPRESSION/PLAN: 03/15/2024 I spent a total of 40 minutes on the date of the service which included preparing to see the patient, gmnm-pg-ygzy patient care, completing clinical documentation, obtaining and/or [...] personally examined the patient and repeated the asenz components of the exam/history. The assessment and plan were formulated and discussed with the resident/fellow. ATTESTATION: By signing my name below, Hayley Harris, attest that this documentation has been prepared under the direction and in the presence of Fredis Buckner MD. Electronically signed: Narciso Good, March 15, 2024 2:28 PM Provider Attestation: Fredis Harris MD, personally performed the services described in [...] Buckner M.D. Reviewed and corrected by Fredis Bcukner M.D. documented in this encounterUc [facility] Hospital06-07-2024 Telephone encounter Note * Telephone Encounter - Aixa Acosta LPN - 03/12/2024 8:49 AM EDT Pt has been scheduled 03/15/24. [facility] Miscellaneous Notes* Telephone Encounter - Aixa [...] know that our oncologist recommended consultation with ACLS SPECIALIST/Onc at [facility] first available (not a specific provider). Help [...] patient has not had follow-up with a collar baster jumpbasting since last saw Laurie Henry in 2020. [...] anybody by the afternoon. documented in this encounterUc West [facility] Hospital06-06-2024 Telephone encounter Note * Telephone Encounter - Aixa Acosta LPN - 03/11/2024 1:47 PM EDT Pt has been scheduled 03/22/24. We are asking for this to be reviewed for a sooner appt. [facility] Telephone encounter Note* Telephone Encounter - Ema Gonzalez RN - 03/11/2024 11:52 AM EDT Spoke to patient for new patient referral. [facility]-06[facility]24 Miscellaneous Notes* Telephone Encounter - Ema Gonzalez RN - 03/11/2024 11:52 AM EDT Spoke to patient for new patient referral. [facility] Telephone encounter Note * Telephone Encounter - Aixa Acosta LPN - 03/11/2024 10:17 AM EDT Called pt on cell and reviewed about appt needed. And the schedulers will get back with her regarding an appt. [facility]-06-[facility]24 Telephone encounter Note* Telephone Encounter - Romel Michelle MD - 03/11/2024 8:32 AM EDT Let patient know that our oncologist recommended consultation with ACLS SPECIALIST/Onc at [facility] first available (not a specific provider). Help make appointment if site fine with patient. [facility]-05-[facility] Telephone encounter Note* Telephone Encounter - [...] patient has not had follow-up with a collar baster jumpbasting since last saw Laurie Henry in 2020. [...] not heard from anybody by the afternoon. [facility] History of Present illness Narrative* Bushra [...] PATIENT PRESENTS WITH AN IMPLANTABLE OR ATTACHED CANVAS MARKER: No ALLERGIES: Reviewed and unchanged CONTRAST ALLERGY: [...] 2024 TIME: 4:01 PM documented in this encounterU[facility] Telephone encounter Note * Telephone Encounter - Courtney Galindo LPN - 03/09/2024 2:[address] scheduled 03/24/2024. Courtney Galindo LPN [facility]06-04-2024 Miscellaneous Notes* Telephone Encounter - Courtney Galindo LPN - 03/09/2024 2:[address] scheduled 03/24/2024. Courtney Galindo LPN * Telephone Encounter - Alyse Alexandra LPN - 03/09/2024 12:04 PM EDT Pt notified of results and provider message. Pt reports she has tried Gax X or something like it and it did not help. Pt transferred to [facility] to schedule CT. Alyse Alexandra LPN * Telephone Encounter - Estefany Valverde, RN - 03/09/2024 11:42 AM EDT Called and left a voicemail for the Patient to call back and ask for a nurse to receive the providers message. Estefany Valverde, RN * Telephone Encounter - Romel Michelle [...] is making symptoms worse. documented [facility] encounter[facility] Telephone encounter Note * Telephone Encounter - Alyse Alexandra LPN - 03/09/2024 12:04 PM EDT Pt notified of results and provider message. Pt reports she has tried Gax X or something like it and it did not help. Pt transferred to [facility] to schedule CT. Alyse Alexandra LPN [facility]-04-[facility] Telephone encounter Note* Telephone Encounter - Estefany Valverde RN - 03/09/2024 11:42 AM EDT Called and left a voicemail for the Patient to call back and ask for a nurse to receive the providers message. Estefany Valverde RN [facility]06-03-2024 Telephone encounter Note* Telephone Encounter - [...] down,bloody stools), needs to go to ER. [facility] Telephone encounter Note* Telephone Encounter - Nena Latif LPN - 03/08/2024 3:20 PM EDT Patient is calling after results of x-ray showed only gas-filled small bowel. Has not had any improvement with symptoms. She is asking what is the next step in trying to figure out cause and treatment? Is finding certain vegetables is making symptoms worse. [facility]-30[facility] Telephone encounter Note* Telephone Encounter - Siomara Dickey OCCA - 03/04/2024 12:21 PM EDT TC to patient who verbalized understanding of below. XR is currently in process. DARRION Ludwig [facility]05-30-2024 Miscellaneous Notes* Telephone Encounter - Siomara [...] advise. Alyse Alexandra LPN documented in this encounterU[facility]05[facility] History of Present illness Narrative* Sana [...] PATIENT PRESENTS WITH AN IMPLANTABLE OR ATTACHED CANVAS MARKER: No RADIOLOGY DEPARTMENT: General X-ray: Exam(s) Completed: Abdomen X-Ray: Abdomen with Upright PERIPHERAL IV DATA: Not applicable SIGNED BY: RT Alex(R) March 04, 2024 11:54 AM documented in this encounterU[facility]05-[facility] Telephone encounter Note * Telephone Encounter [...] have any questions, you can call Nurse plater production back. [facility]-30-[facility]24 Miscellaneous Notes* Telephone Encounter - Lucy [...] have any questions, you can call Nurse plater production back. documented in [facility] encounter[facility] Telephone encounter Note * Telephone Encounter - Romel Michelle MD - 03/03/2024 8:19 PM EDT Start with Xray abdomen to determine whether issue is a lot of gas or stool or both. Ordered If that test not helpful, consider CT abdomen and pelvis. If at any time gets more severe and persistent pain, recommend ER evaluation so they can do stat imaging. [facility]-28-2024 Telephone encounter Note* Telephone Encounter - [...] Please review and advise. Alyse Alexandra LPN [facility]05-21-2024 History of Present illness Narrative* Romel Michelle MD - 02/24/2024 7:00 PM EDT This note was created using Soapetsriter. Subjective Sal Bautista is a 73 year [...] which included preparing to see the patient, [id number] patient care, completing clinical documentation, obtaining and/or reviewing separately obtained history, performing a medically appropriate examination, counseling and educating the pat ient/family/caregiver, and ordering medications, tests, or procedures. Romel Michelle MD documented in [facility] encounterU[facility]23 Miscellaneous Notes* Telephone Encounter - Tory [...] 07/15/23 Tory Valenzuela MA documented in this encounterU[facility]01-26-[facility]23 History of Present illness Narrative* Nuria Pat APRN.CLAMP OPERATOR - 10/31/2022 8:26 AM EST Subjective The history is provided by the patient. No english as a second language instructor was used. HPI Sal Bautista is a [...] have confirmed and edited as necessary, the [facility] Review of Systems Constitutional: Negative for chills [...] evaluation. Nuria Pat APRN.CNP documented in this encounterU[facility]01-26-2023 Instructions* Patient Instructions* Nuria Pat APRN.CNP [...] on the other side. documented in this encounterU[facility]09[facility]22 History of Present illness Narrative* Romel Michelle MD - 06/28/2022 8:50 AM EDT This note was created using Soapetsriter. Subjective Sal Bautista is a 72 year old female. HISTORY Sal Bautista is a 72 year old lady here for yearly exam and follow up appointment. Keeping tinea at bay. Ketoconazole helped. Discussed osteoporosis. Does gardening, Gets mammograms at [facility] and already scheduled. Will get flu [...] Abs Lymph 1.00 - 4.00 k/uL 1.23 Appling% % 7.7 Abs Appling 0.00 - 0.86 k/uL 0.40 Eosin% % [...] DATE OF EXAM: Jun 04 2022 8:52AM [facility] 0804 - BD DXA - AXIAL SKELETON / PROCEDURE REASON: multiple diagnoses * * * * Physician Interpretation * * * * EXAM: BD DXA - AXIAL SKELETON HISTORY: Osteopenia, follow-up. [...] HYDROXY Romel Michelle MD documented in this encounterU[facility]08[facility]22 History of Present illness Narrative* Rafal Vasquez, RT(R) - 06/04/2022 8:30 AM EDT Radiology Service [...] 04, 2022 8:33 AM documented in this encounterU[facility]08-[facility]-2022 Miscellaneous Notes* Telephone Encounter - Aixa [...] is not taking anything otc. Patient uses [facility] for her pharmacy if needed. Patient asking what should she be doing and or taking to help? Please advise documented in this encounterU[facility]03-23-2022 History of Present illness Narrative* Carey Lockhart Pss - 12/26/2021 10:37 AM EDT POPULATION HEALTH NAVIGATION OUTREACH Action/FYI: [employer] Care Gaps Discuss/Due: Advance Directives, Breast Cancer Screening due 06/28/22 or after Outcome: Left voicemail with my direct number and sent fabroomst message Pt identified by name and : [...] 26, 2021 10:37 AM documented in this encounterU[facility] History of Past illness Narrative* Problem Noted Date Resolved Date Sebaceous cyst 07/05/2008 11/16/2015 documented as of this encounter (statuses as of 12/26/2021) [facility] History of Past illness Narrative* Problem Noted Date Resolved Date Sebaceous cyst 07/05/2008 11/16/2015 documented as of this encounter (statuses as of 06/05/2022) [facility] History of Past illness Narrative* Problem Noted Date Resolved Date Sebaceous cyst 07/05/2008 11/16/2015 documented as of this encounter (statuses as of 06/28/2022) [address] History of Past illness Narrative* Problem Noted Date Resolved Date Sebaceous cyst 07/05/2008 11/16/2015 documented as of this encounter (statuses as of 06/28/2022) [address] History of Past illness Narrative* Problem Noted Date Resolved Date Sebaceous cyst 07/05/2008 11/16/2015 documented as of this encounter (statuses as of 08/19/2022) [address] History of Past illness Narrative* Problem Noted Date Resolved Date Sebaceous cyst 07/05/2008 11/16/2015 documented as of this encounter (statuses as of 10/31/2022) [address] History of Past illness Narrative* Problem Noted Date Diagnosed Date Resolved Date Sebaceous cyst 07/05/2008 11/16/2015 documented as of this encounter (statuses as of 06/18/2023) [address] History of Past illness Narrative* Problem Noted Date Diagnosed Date Resolved Date Sebaceous cyst 07/05/2008 11/16/2015 documented as of this encounter (statuses as of 12/22/2023) [facility] Author Darryl Reeves [facility] Note Date/Time January 10, 2025 1:02 pm [facility] Medical Records Department [address] [place] [address] Anesthesia Postop Eval I 01/10/25 1301 MR#: [id number] Acct: [id number] Name: SAL BAUTISTA Rep #:[id number] : 1950 74 From: Darryl Reeves PCP: Dr. Romel Michelle MD Status:RE G SDC Y Race: C Location: [place] [address] Anesthesia: Postop Eval I Current Vital Signs [...] by Darryl Reeves > Date _ Darryl Reeves Cosigner Signature: Date CC: ~ Signed [facility] Work Phone: Consult note Author Aquiles Durand [facility] Note Date/Time April 26, 2025 2:13 pm [facility] Medical Records Department [address] [place] [address] Pre-Anesthesia Evaluation 04/26/25 1412 MR#: [id number] Acct: [id number] Name: SAL BAUTISTA Rep #:[id number] : 1950 75 From: Aquiles Calderon PCP: Dr. Romel Michelle MD Status:[facility] Y Race: C Location: [place] [address] ASA Classification* ASA Classification ASA Classification: 3 [...] Procedure(s): COLONOSCOPY Anesthesia History Anesthesia History - accounts receivable administrator: Anesthesia History - accounts receivable administrator Hx Hospitalization Yes: 09/2024 SURGERY FOR 04/22/25 [...] take am of surgery PONV PONV - accounts receivable administrator: PONV - accounts receivable administrator Female Yes 04/22/25 14:45 HX of Motion [...] 04/26/25 13:45 Respiratory Assessment Respiratory Assessment - accounts receivable administrator: Respiratory Tract Infection Hx - accounts receivable administrator Hx Respiratory Tract Infection No 04/22/25 14:45 STOP Sleep Apnea STOP Sleep Apnea - accounts receivable administrator: STOP Sleep Apnea - accounts receivable administrator Hx Hypertension No 04/22/25 14:45 Hx Sleep [...] Tobacco Use History Tobacco Use History - accounts receivable administrator: Tobacco Use History - accounts receivable administrator Tobacco Use Smoking Status Never smoker 04/22/25 14:45 Hx Tobacco Use No 04/22/25 14:45 Years Smoking Packs Smoked per Day Smoking Cessation Date was within the last 15 years Hx Smoking Cessation Date Hx Smoking Cessation Counseling Hematologic Medial History Hematologic Hx - accounts receivable administrator: Hematologic Medical Hx - fagot maker Hx of Blood Transfusion Yes 04/22/25 14:45 Hx of Transfusion in last 3 No 04/22/25 14:45 Months Date of Last Transfusion (if within last 3 months) Ever experience any problems No 04/22/25 14:45 with transfusion(s)? Specify any problems Hx of Preganancy in last 3 No 04/22/25 14:45 Months Nurse Filling Out Transfusion MGRIFFITH 04/22/25 14:45 & Questions: Date: 04/22/25 04/22/25 14:45 Time: 14:48 04/22/25 14:45 Patient unable to answer at this time (ie. confused, unrespo /Reproduction History /Reproductive History - accounts receivable administrator: /Reproductive Hx- accounts receivable administrator Hx Now Gestational Age (in weeks): EDC: [...] by Aquiles Durand MD> Date _ Aquiles Lópezigngarett Signature: Date CC: ~ Signed [facility] Work Phone: Consult note Author Darryl Reeves [facility] Note Date/Time April 26, 2025 3:40 pm [facility] Medical Records Department [address] [place] [address] Anesthesia Postop Eval I 04/26/25 1502 MR#: [id number] Acct: [id number] Name: SAL BAUTISTA Rep #:[id number] : 1950 75 From: Darryl Reeves PCP: Dr. Romel Michelle MD Status:[facility] Y Race: C Location: [place] [address] Anesthesia: Postop Eval I Current Vital Signs [...] by Darryl Reeves > Date _ Darryl Martinez Signature: Date CC: ~ Signed [facility] Work Phone: evaluation note* Diagnosis Osteopenia of both hips [facility] Diagnosis Irritable bowel syndrome with diarrhea- Primary Irritable bowel syndrome Age-related osteoporosis without current pathological fracture Senile osteoporosis Encounter for long-term current use of medication documented [facility] noteNo assessment information availableWUniversity Hospitals Health System Work Phone: Evaluation note* Diagnosis Encounter for screening mammogram for breast cancer [facility]* Diagnosis Dysfunction of both eustachian tubes- Primary Dysfunction of Eustachian tube URI with cough and congestion [facility]* Diagnosis Irritable bowel syndrome with diarrhea Irritable bowel syndrome [facility] Diagnosis Irritable bowel syndrome with diarrhea Irritable bowel syndrome [facility]* Diagnosis Generalized abdominal pain- Primary Abdominal pain, generalized Abdominal bloating Flatulence, eructation, and gas pain documented [facility]* Diagnosis Generalized abdominal pain Abdominal pain, generalized Abdominal bloating Flatulence, eructation, and gas pain documented [facility]* Diagnosis Abdominal distension (gaseous)- Primary Flatulence, eructation, and gas pain Irritable bowel syndrome with both constipation and diarrhea [facility]* Diagnosis Generalized abdominal pain- Primary Abdominal pain, generalized Abdominal bloating Flatulence, eructation, and gas pain Vitamin D deficiency Unspecified vitamin D deficiency [facility]* Diagnosis Generalized abdominal pain Abdominal pain, generalized Abdominal bloating Flatulence, eructation, and gas pain [facility]* Diagnosis Pelvic mass- Primary Abdominal or pelvic swelling, mass or lump, unspecified site Preop examination Preoperative examination, unspecified Pelvic mass Abdominal or pelvic swelling, mass or lump, unspecified site documented in this encounter [facility] note* Diagnosis Pelvic mass- Primary Abdominal or pelvic swelling, mass or lump, unspecified site Pre-op examination Preoperative examination, unspecified Pre-op evaluation- Primary Preoperative examination, unspecified Pelvic mass Abdominal or pelvic swelling, mass or lump, unspecified site documented in this encounter [facility] note* Diagnosis Educational circumstances- Primary Educational circumstance documented in this encounter [facility] note* Diagnosis Pelvic mass Abdominal or pelvic swelling, mass or lump, unspecified site documented in this encounter [facility] note* Diagnosis Pelvic mass- Primary Abdominal or pelvic swelling, mass or lump, unspecified site documented in this encounter [facility] note* Diagnosis Pelvic mass- Primary Abdominal or pelvic swelling, mass or lump, unspecified site documented in this encounter [facility] note* Diagnosis Abdominal bloating- Primary Flatulence, eructation, and gas pain Pelvic mass Abdominal or pelvic swelling, mass or lump, unspecified site Pelvic mass Abdominal or pelvic swelling, mass or lump, unspecified site documented in this encounter [facility] note* Diagnosis Preoperative examination- Primary Preoperative examination, [...] Bentyl and loperamide. documented in this encounter [facility] note* Diagnosis Post-operative state Other postprocedural status documented in this encounter [facility] note* Diagnosis High grade ovarian cancer (HCC)- Primary Abdominal bloating Flatulence, eructation, and gas pain Pelvic mass Abdominal or pelvic swelling, mass or lump, unspecified site documented in this encounter [facility] note* Diagnosis High grade ovarian cancer (HCC) documented in this encounter [facility] note* Diagnosis Encounter for education- Primary Counseling NOS documented in this encounter [facility] note* Diagnosis Severe protein-calorie malnutrition (HCC)- Primary Other severe protein-calorie malnutrition Inadequate nutrition Pelvic mass in female Abdominal or pelvic swelling, mass or lump, unspecified site documented in this encounter [facility] note* Diagnosis High grade ovarian cancer (HCC)- Primary documented in this encounter [facility] note* Diagnosis Gross hematuria- Primary documented in this encounter [facility] note* Diagnosis High grade ovarian cancer (HCC)- Primary Severe protein-calorie malnutrition (HCC) Other severe protein-calorie malnutrition documented in this encounter [facility] note* Diagnosis Severe protein-calorie malnutrition (HCC)- Primary Other severe protein-calorie malnutrition Inadequate nutrition High grade ovarian cancer (HCC) documented in this encounter [facility] note* Diagnosis High grade ovarian cancer (HCC)- Primary documented in this encounter [facility] note* Diagnosis High grade ovarian cancer (HCC)- Primary documented in this encounter [facility] note* Diagnosis Preoperative examination- Primary Preoperative examination, unspecified Irritable bowel syndrome with diarrhea Irritable bowel syndrome Other ascites High grade ovarian cancer (HCC)- Primary documented in this encounter [facility] note* Diagnosis Preoperative examination- Primary Preoperative examination, unspecified Irritable bowel syndrome with diarrhea Irritable bowel syndrome Other ascites High grade ovarian cancer (HCC)- Primary [facility] Diagnosis Preoperative examination- Primary Preoperative examination, unspecified Irritable bowel syndrome with diarrhea Irritable bowel syndrome Other ascites High grade ovarian cancer (HCC) [facility]* Diagnosis Preoperative examination- Primary Preoperative examination, unspecified Irritable bowel syndrome with diarrhea Irritable bowel syndrome Other ascites Severe protein-calorie malnutrition (HCC)- Primary Other severe protein-calorie malnutrition High grade ovarian cancer (HCC) Inadequate nutrition Irritable bowel syndrome with diarrhea Irritable bowel syndrome [facility]* Diagnosis Preoperative examination- Primary Preoperative examination, unspecified Irritable bowel syndrome with diarrhea Irritable bowel syndrome Other ascites High grade ovarian cancer (HCC)- Primary Inadequate nutrition [facility]* Diagnosis Preoperative examination- Primary Preoperative examination, unspecified Irritable bowel syndrome with diarrhea Irritable bowel syndrome Other ascites High grade ovarian cancer (HCC)- Primary [facility]* Diagnosis Preoperative examination- Primary Preoperative examination, unspecified Irritable bowel syndrome with diarrhea Irritable bowel syndrome Other ascites High grade ovarian cancer (HCC)- Primary Elevated cancer antigen 125 (CA-125) Elevated cancer antigen 125 [CA 125] documented [facility] this encounter [facility]* Diagnosis Preoperative examination- Primary Preoperative examination, unspecified Irritable bowel syndrome with diarrhea Irritable bowel syndrome Other ascites High grade ovarian cancer (HCC)- Primary [facility]* Diagnosis Preoperative examination- Primary Preoperative examination, unspecified Irritable bowel syndrome with diarrhea Irritable bowel syndrome Other ascites High grade ovarian cancer (HCC)- Primary Gross hematuria [facility]* Diagnosis Preoperative examination- Primary Preoperative examination, unspecified Irritable bowel syndrome with diarrhea Irritable bowel syndrome Other ascites High grade ovarian cancer (HCC)- Primary [facility]* Diagnosis Preoperative examination- Primary Preoperative examination, unspecified Irritable bowel syndrome with diarrhea Irritable bowel syndrome Other ascites High grade ovarian cancer (HCC)- Primary [facility] Diagnosis Preoperative examination- Primary Preoperative examination, unspecified Irritable bowel syndrome with diarrhea Irritable bowel syndrome Other ascites Encounter for screening mammogram for breast cancer [facility]* Diagnosis Preoperative examination- Primary Preoperative examination, unspecified Irritable bowel syndrome with diarrhea Irritable bowel syndrome Other ascites High grade ovarian cancer (HCC) [facility]* Diagnosis Preoperative examination- Primary Preoperative examination, unspecified Irritable bowel syndrome with diarrhea Irritable bowel syndrome Other ascites High grade ovarian cancer (HCC)- Primary Preop examination Preoperative examination, unspecified High grade ovarian cancer (HCC) [facility]* Diagnosis Preoperative examination- Primary Preoperative examination, unspecified Irritable bowel syndrome with diarrhea Irritable bowel syndrome Other ascites Educational circumstances- Primary Educational circumstance High grade ovarian cancer (HCC) [facility] Diagnosis Preoperative examination- Primary Preoperative examination, [...] Bentyl and loperamide. [facility] Diagnosis Preoperative examination- Primary Preoperative examination, unspecified Irritable bowel syndrome with diarrhea Irritable bowel syndrome Other ascites High grade ovarian cancer (HCC)- Primary Pre-op evaluation- Primary Preoperative examination, unspecified Irritable bowel syndrome with diarrhea Irritable bowel syndrome [facility] Diagnosis Preoperative examination- Primary Preoperative examination, unspecified Irritable bowel syndrome with diarrhea Irritable bowel syndrome Other ascites Pre-op evaluation- Primary Preoperative examination, unspecified Irritable bowel syndrome with diarrhea Irritable bowel syndrome High grade ovarian cancer (HCC)- Primary Elevated cancer antigen 125 (CA-125) Elevated cancer antigen 125 [CA 125] Postop check Follow-up examination, following unspecified surgery [facility] Preoperative examination- Primary Preoperative examination, unspecified Irritable bowel syndrome with diarrhea Irritable bowel syndrome Other ascites Pre-op evaluation- Primary Preoperative examination, unspecified Irritable bowel syndrome with diarrhea Irritable bowel syndrome Removal of dave- Primary Encounter for removal of sutures [facility] Preoperative examination- Primary Preoperative examination, unspecified Irritable bowel syndrome with diarrhea Irritable bowel syndrome Other ascites Pre-op evaluation- Primary Preoperative examination, unspecified Irritable bowel syndrome with diarrhea Irritable bowel syndrome Postop check- Primary Follow-up examination, following unspecified surgery Severe protein-calorie malnutrition (HCC) Other severe protein-calorie malnutrition [facility] Diagnosis Preoperative examination- Primary Preoperative examination, unspecified Irritable bowel syndrome with diarrhea Irritable bowel syndrome Other ascites Pre-op evaluation- Primary Preoperative examination, unspecified Irritable bowel syndrome with diarrhea Irritable bowel syndrome High grade ovarian cancer (HCC)- Primary [facility] Diagnosis Preoperative examination- Primary Preoperative examination, unspecified Irritable bowel syndrome with diarrhea Irritable bowel syndrome Other ascites Pre-op evaluation- Primary Preoperative examination, unspecified Irritable bowel syndrome with diarrhea Irritable bowel syndrome High grade ovarian cancer (HCC)- Primary [facility] Diagnosis Preoperative examination- Primary Preoperative examination, unspecified Irritable bowel syndrome with diarrhea Irritable bowel syndrome Other ascites Pre-op evaluation- Primary Preoperative examination, unspecified Irritable bowel syndrome with diarrhea Irritable bowel syndrome High grade ovarian cancer (HCC)- Primary [facility] Diagnosis Preoperative examination- Primary Preoperative examination, unspecified Irritable bowel syndrome with diarrhea Irritable bowel syndrome Other ascites Pre-op evaluation- Primary Preoperative examination, unspecified Irritable bowel syndrome with diarrhea Irritable bowel syndrome High grade ovarian cancer (HCC)- Primary [facility] Diagnosis Preoperative examination- Primary Preoperative examination, unspecified Irritable bowel syndrome with diarrhea Irritable bowel syndrome Other ascites Pre-op evaluation- Primary Preoperative examination, unspecified Irritable bowel syndrome with diarrhea Irritable bowel syndrome High grade ovarian cancer (HCC)- Primary [facility] Diagnosis Preoperative examination- Primary Preoperative examination, unspecified Irritable bowel syndrome with diarrhea Irritable bowel syndrome Other ascites Pre-op evaluation- Primary Preoperative examination, unspecified Irritable bowel syndrome with diarrhea Irritable bowel syndrome High grade ovarian cancer (HCC)- Primary Painless rectal bleeding [facility] Diagnosis Preoperative examination- Primary Preoperative examination, unspecified Irritable bowel syndrome with diarrhea Irritable bowel syndrome Other ascites Pre-op evaluation- Primary Preoperative examination, unspecified Irritable bowel syndrome with diarrhea Irritable bowel syndrome High grade ovarian cancer (HCC)- Primary [facility] Diagnosis Preoperative examination- Primary Preoperative examination, unspecified Irritable bowel syndrome with diarrhea Irritable bowel syndrome Other ascites Pre-op evaluation- Primary Preoperative examination, unspecified Irritable bowel syndrome with diarrhea Irritable bowel syndrome High grade ovarian cancer (HCC) [facility] Diagnosis Preoperative examination- Primary Preoperative examination, unspecified Irritable bowel syndrome with diarrhea Irritable bowel syndrome Other ascites Pre-op evaluation- Primary Preoperative examination, unspecified Irritable bowel syndrome with diarrhea Irritable bowel syndrome Encounter for education- Primary Counseling NOS [facility] Diagnosis Preoperative examination- Primary Preoperative examination, unspecified Irritable bowel syndrome with diarrhea Irritable bowel syndrome Other ascites Pre-op evaluation- Primary Preoperative examination, unspecified Irritable bowel syndrome with diarrhea Irritable bowel syndrome High grade ovarian cancer (HCC)- Primary Ovarian cancer, bilateral (HCC) [facility] Diagnosis Preoperative examination- Primary Preoperative examination, unspecified Irritable bowel syndrome with diarrhea Irritable bowel syndrome Other ascites Pre-op evaluation- Primary Preoperative examination, unspecified Irritable bowel syndrome with diarrhea Irritable bowel syndrome High grade ovarian cancer (HCC)- Primary [facility] Diagnosis Preoperative examination- Primary Preoperative examination, [...] specified intestinal malabsorption [facility] Diagnosis Preoperative examination- Primary Preoperative examination, unspecified Irritable bowel syndrome with diarrhea Irritable bowel syndrome Other ascites Pre-op evaluation- Primary Preoperative examination, unspecified Irritable bowel syndrome with diarrhea Irritable bowel syndrome High grade ovarian cancer (HCC)- Primary [facility] Diagnosis Preoperative examination- Primary Preoperative examination, unspecified Irritable bowel syndrome with diarrhea Irritable bowel syndrome Other ascites Pre-op evaluation- Primary Preoperative examination, unspecified Irritable bowel syndrome with diarrhea Irritable bowel syndrome Iron malabsorption (HCC)- Primary Other specified intestinal malabsorption 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 loss Iron deficiency anemia secondary to blood loss (chronic) [facility] Diagnosis Preoperative examination- Primary Preoperative examination, unspecified Irritable bowel syndrome with diarrhea Irritable bowel syndrome Other ascites Pre-op evaluation- Primary Preoperative examination, unspecified Irritable bowel syndrome with diarrhea Irritable bowel syndrome Iron malabsorption (HCC)- Primary Other specified intestinal malabsorption 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 loss Iron deficiency anemia secondary to blood loss (chronic) [facility] Diagnosis Preoperative examination- Primary Preoperative examination, unspecified Irritable bowel syndrome with diarrhea Irritable bowel syndrome Other ascites Pre-op evaluation- Primary Preoperative examination, unspecified Irritable bowel syndrome with diarrhea Irritable bowel syndrome High grade ovarian cancer (HCC)- Primary [facility] Diagnosis Preoperative examination- Primary Preoperative examination, unspecified Irritable bowel syndrome with diarrhea Irritable bowel syndrome Other ascites Pre-op evaluation- Primary Preoperative examination, unspecified Irritable bowel syndrome with diarrhea Irritable bowel syndrome Iron malabsorption (HCC)- Primary Other specified intestinal malabsorption 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 loss Iron deficiency anemia secondary to blood loss (chronic) [facility] Diagnosis Preoperative examination- Primary Preoperative examination, unspecified Irritable bowel syndrome with diarrhea Irritable bowel syndrome Other ascites Pre-op evaluation- Primary Preoperative examination, unspecified Irritable bowel syndrome with diarrhea Irritable bowel syndrome Iron malabsorption (HCC)- Primary Other specified intestinal malabsorption 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 loss Iron deficiency anemia secondary to blood loss (chronic) [facility] Diagnosis Preoperative examination- Primary Preoperative examination, unspecified Irritable bowel syndrome with diarrhea Irritable bowel syndrome Other ascites Pre-op evaluation- Primary Preoperative examination, unspecified Irritable bowel syndrome with diarrhea Irritable bowel syndrome Iron malabsorption (HCC)- Primary Other specified intestinal malabsorption 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 loss Iron deficiency anemia secondary to blood loss (chronic) [facility] Diagnosis Preoperative examination- Primary Preoperative examination, [...] specified intestinal malabsorption [facility] Diagnosis Preoperative examination- Primary Preoperative examination, unspecified Irritable bowel syndrome with diarrhea Irritable bowel syndrome Other ascites Pre-op evaluation- Primary Preoperative examination, unspecified Irritable bowel syndrome with diarrhea Irritable bowel syndrome High grade ovarian cancer (HCC)- Primary [facility] Diagnosis Preoperative examination- Primary Preoperative examination, unspecified Irritable bowel syndrome with diarrhea Irritable bowel syndrome Other ascites Pre-op evaluation- Primary Preoperative examination, unspecified Irritable bowel syndrome with diarrhea Irritable bowel syndrome High grade ovarian cancer (HCC)- Primary [facility] Diagnosis Preoperative examination- Primary Preoperative examination, unspecified Irritable bowel syndrome with diarrhea Irritable bowel syndrome Other ascites Pre-op evaluation- Primary Preoperative examination, unspecified Irritable bowel syndrome with diarrhea Irritable bowel syndrome High grade ovarian cancer (HCC)- Primary Anemia, unspecified type Thrombocytopenia Thrombocytopenia, unspecified [facility] Diagnosis Preoperative examination- Primary Preoperative examination, unspecified Irritable bowel syndrome with diarrhea Irritable bowel syndrome Other ascites Pre-op evaluation- Primary Preoperative examination, unspecified Irritable bowel syndrome with diarrhea Irritable bowel syndrome High grade ovarian cancer (HCC)- Primary [facility] Diagnosis Preoperative examination- Primary Preoperative examination, unspecified Irritable bowel syndrome with diarrhea Irritable bowel syndrome Other ascites Pre-op evaluation- Primary Preoperative examination, unspecified Irritable bowel syndrome with diarrhea Irritable bowel syndrome High grade ovarian cancer (HCC)- Primary [facility] Diagnosis Preoperative examination- Primary Preoperative examination, unspecified Irritable bowel syndrome with diarrhea Irritable bowel syndrome Other ascites Pre-op evaluation- Primary Preoperative examination, unspecified Irritable bowel syndrome with diarrhea Irritable bowel syndrome Megaloblastic anemia due to vitamin B12 deficiency- Primary Other vitamin B12 deficiency anemia [facility] Diagnosis Preoperative examination- Primary Preoperative examination, unspecified Irritable bowel syndrome with diarrhea Irritable bowel syndrome Other ascites Pre-op evaluation- Primary Preoperative examination, unspecified Irritable bowel syndrome with diarrhea Irritable bowel syndrome Megaloblastic anemia due to vitamin B12 deficiency- Primary Other vitamin B12 deficiency anemia [facility] Diagnosis Preoperative examination- Primary Preoperative examination, unspecified Irritable bowel syndrome with diarrhea Irritable bowel syndrome Other ascites Pre-op evaluation- Primary Preoperative examination, unspecified Irritable bowel syndrome with diarrhea Irritable bowel syndrome Megaloblastic anemia due to vitamin B12 deficiency- Primary Other vitamin B12 deficiency anemia [facility] Diagnosis Preoperative examination- Primary Preoperative examination, unspecified Irritable bowel syndrome with diarrhea Irritable bowel syndrome Other ascites Pre-op evaluation- Primary Preoperative examination, unspecified Irritable bowel syndrome with diarrhea Irritable bowel syndrome Megaloblastic anemia due to vitamin B12 deficiency- Primary Other vitamin B12 deficiency anemia [facility] Diagnosis Preoperative examination- Primary Preoperative examination, unspecified Irritable bowel syndrome with diarrhea Irritable bowel syndrome Other ascites Pre-op evaluation- Primary Preoperative examination, unspecified Irritable bowel syndrome with diarrhea Irritable bowel syndrome Megaloblastic anemia due to vitamin B12 deficiency- Primary Other vitamin B12 deficiency anemia [facility] Diagnosis Preoperative examination- Primary Preoperative examination, unspecified Irritable bowel syndrome with diarrhea Irritable bowel syndrome Other ascites Pre-op evaluation- Primary Preoperative examination, unspecified Irritable bowel syndrome with diarrhea Irritable bowel syndrome High grade ovarian cancer (HCC) [facility] Author Ankur Colon [facility] Note Date/Time April 26, 2025 2:17 pm [facility] Medical Records Department [address] [place] [address] History & Physical Exam 04/26/25 1415 MR#: [id number] Acct: [id number] Name: SAL BAUTISTA Rep #:[id number] : 1950 75 From: Ankur Colon DO PCP: Dr. Romel Michelle MD Status:[facility] Location: [place] [address] HPI - General General Date of Admission: [...] Miralax daily to keep thingssoft and moving. 3 Colonoscopy: Patent end-to-end colo-rectal anastomosis w/erythema and friable tissue; treated w/APC after failed clip applications. 4 Sigmoidoscopy: Descending colon rectal anastomosis with some friable tissue. Coagulation for hemostasis using argon plasma was successful. 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 Pt may shower, no soaking of wound [...] peristomal skin care. documented in this encounter [facility] home Plan of care note* Visit Details Visit Type -SN ROUTINE Discipline -Senior Care Problems Problem Description Start Date Status Goals [...] Discuss all medications you are taking, even hpab-gxv-eteacqg medicines, with your provider and pharmacist since [...] peristomal skin care. 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 [facility] Visit Details Visit Type -SN ROUTINE Discipline -Senior Care Problems Problem Description Start Date Status Goals [...] scheduled/document ed intervention SN Learning Assessment Disciplines: 04/15/2024 Active 1 [...] and ostomy precautions. documented in this encounter [facility] home Plan of care note* Visit Details Visit Type -SN ROUTINE Discipline -Senior Care Problems Problem Description Start Date Status Goals [...] peristomal skin care. documented in this encounter [facility] home Plan of care note* Visit Details Visit Type -SN ROUTINE Discipline -Senior Care Problems Problem Description Start Date Status Goals [...] and ostomy precautions. documented in this encounter [facility] home Plan of care note* Visit Details Visit Type -SN ROUTINE Discipline -Senior Care Problems Problem Description Start Date Status Goals [...] and ostomy precautions. documented in this encounter [facility] home Plan of care note* Visit Details Visit Type -SN ROUTINE Discipline -Senior Care Problems Problem Description Start Date Status Goals [...] [facility] on 05/17/24 for discharge date of 05/24/24. Instruct on ongoing discharge plan Problem:Discharge Goal:Manage [...] and ostomy precautions. documented in this encounter [facility] home Plan of care note* Visit Details Visit Type -SN ROUTINE Discipline -Senior Care Problems Problem Description Start Date Status Goals [...] and ostomy precautions. documented in this encounter [facility] home Plan of care note* Visit Details Visit Type -SN ROUTINE Discipline -Senior Care Problems Problem Description Start Date Status Goals [...] peristomal skin care. documented in this encounter [facility] Plan of care note* Visit Details Visit Type -SN AGENCY DC W V ISIT Discipline -Senior Care Problems Problem Description Start Date Status Goals [...] disease/condition Patient independent documented in this encounter [facility] for referral (narrative)* Diagnostic Procedure Only (Routine) - Pending Review Specialty Diagnoses / Procedures Referred By Contac t Referred To Contact [facility] Diagnoses Encounter for screening mammogram for breast cancer Procedures XOCHILT SCREENING SCREENING MAMMOGRAPHY BI 2-VIEW BREAST INC CAD Romel Michelle MD [address] [place] [address] [facility] [address] [place] [address] Referral ID Status Reason Start Date Expiration Date Visits Requested Visits Authorized [id number] Pending Review Auto-Generat ed Referral 08/14/2022 09/13/2023 1 1 [facility] for referral (narrative)* Diagnostic Procedure Only (Routine) - Closed Specialty Diagnoses / Procedures Referred By Mirta oliver Referred To Contact XR IMAGING Diagnoses Generalized abdominal pain Abdominal bloating Procedures XR ABDOMEN 2V ROUTINE SUPINE W UPRIGHT/DECUB/CTL RADIOLOGIC EXAM ABDOMEN 2 VIEWS Romel Michelle MD [address] [place] [address] Xr Imaging [id number] Referral ID Status Reason Start Date Expiration Date V isits Requested Visits Authorized [id number] Closed Auto-Generate d Referral 03/03/2024 04/02/2025 1 1 [facility] for referral (narrative)* Outpatient Procedure (Routine) - Pending Review Specialty Diagnoses / Procedures Referred By Mirta oliver Ref[facility] Diagnoses Preoperative examination Procedures ECG COMPLETE ECG ROUTINE ECG W/LEAST 12 LDS W/I&R Estefany Cash PA-C [address] [address] [facility] [place] [address] [place] [address] Referral ID Status Reason Start Date Expiration Date Visits Requested Visits Authorized [id number] Pending Review Auto-Generat ed Referral 04/02/2024 04/02/2025 1 1 [facility] for referral (narrative)* Diagnostic Procedure Only (Routine) - New Request Specialty Diagnoses / Procedures Referred By Mirta t Referred To Contact [facility] Diagnoses Encounter for screening mammogram for breast cancer Procedures XOCHILT SCREENING W CHIQUI SCREENING DIGITAL BREAST TOMOSYNTHESIS BI SCREENING MAMMOGRAPHY BI 2-VIEW BREAST INC CAD Romel Michelle MD [address] [place] [address] [facility] [address] [place] [address] Referral ID Status Reason Start Date Expiration Date Visits Requested Visits Authorized [id number] New Request Auto-Generat ed Referral 08/11/2024 09/10/2025 1 1 [facility] for referral (narrative)No reason for referral information [facility] Work Phone: Reason for visit Narrative* Diagnostic Procedure Only (Routine) - Closed Specialty Diagnoses / Procedures Referred By Mirta t Referred To Contact XR IMAGING Diagnoses Generalized abdominal pain Abdominal bloating Procedures XR ABDOMEN 2V ROUTINE SUPINE W UPRIGHT/DECUB/CTL RADIOLOGIC EXAM ABDOMEN 2 VIEWS Romel Michelle MD [address] [place] [address] [place] [id number] Referral ID Status Reason Start Date Expiration Date V isits Requested Visits Authorized [id number] Closed Auto-Generate d Referral 03/03/2024 04/02/2025 1 1 [facility] for visit Narrative* MRI/CT (Routine) - Closed Specialty Diagnoses / Procedures Referred By Mirta t Referred To Contact CT IMAGING Diagnoses High grade ovarian cancer (HCC) Procedures CT ABD/PEL W IVCON CT ABD & PELVIS W/CONTRAST Nile Hall, DO [address] [place] [address] Phone: tel: fax: [place] [address] Referral ID Status Reason Start Date Expiration Date V isits Requested Visits Authorized [id number] Closed Auto-Generate d Referral 12/02/2024 01/01/2026 1 1 [facility] for visit Narrative* MRI/CT (Routine) - Closed Specialty Diagnoses / Procedures Referred By Contac t Referred To Contact CT IMAGING Diagnoses High grade ovarian cancer (HCC) Procedures CT ABD/PEL W IVCON CT ABD & PELVIS W/CONTRAST Nile Hall DO [address] [place] [address] Phone: tel: fax: [place] [address] Referral ID Status Reason Start Date Expiration Date V isits Requested Visits Authorized [id number] Closed Auto-Generate d Referral 06/07/2025 07/07/2026 1 1 [facility] Chief Complaint and Reason for Visit Chief Complaint Admit Date Melena March 01, 2025 7:56a m 1 UNIT PRBC June 14, 2025 12:27pm Reason for Visit Admit Date History of reversal of ileostomy February 7:56am Melena March 01, 2025 7:56a m Blood in stool, nikki April 26, 2025 1: 21pm History of reversal of ileostomy April 262024 1:21pm Chief Complaint Admit Date RECTAL BLEED December 17, 2024 8:3 2am Melena March 01, 2025 7:56a m Reason for Visit Admit Date Blood in stool, nikki December 17, 2024 8 :32am Chief Complaint SCREENING Chief Complaint Admit Date RECTAL BLEED December 17, 2024 8:3 2am Chief Complaint Admit Date Melena March 01, 2025 7:56a m Reason for Referral Specialty Diagnoses / Procedures Referred By Contac t Referred To Contact CT IMAGING Diagnoses Generalized abdominal pain Abdominal bloating Procedures CT ABD/PEL W IVCON CT ABD & PELVIS W/CONTRAST Romel Michelle MD [address] [place] [address] [place] [address] Referral ID Status Reason Start Date Expiration Date Visits Requested Visits Authorized [id number] Authorized Auto-Generat ed Referral 03/09/2024 10/05/2024 1 1 Referral ID Status Reason Start Date Expiration Date V isits Requested Visits Authorized [id number] Closed Auto-Generate d Referral 03/09/2024 10/05/2024 1 1 Specialty Diagnoses / Procedures Referred By Contac t Referred To Contact Diagnoses Preop examination Procedures REFER TO [facility]ACC - PRE ANESTHESIA CONSULTATION CLINIC OFFICE/OUTPATIENT [facility] 60 MINUTES Tarsha Alicea, WATER COMMISSIONER.CLAMP OPERATOR [address] [place] [address] Referral ID Status Reason Start Date Expiration Date Visits Requested Visits Authorized [id number] Authorized PCP Requested Referral 03/15/2024 03/15/2025 1 1 Specialty Diagnoses / Procedures Referred By Contac t Referred To Contact CT IMAGING Diagnoses Pelvic mass Procedures CT CHEST WO IVCON DIAGNOSTIC COMPUTED TOMOGRAPHY THORAX W/[place] [address] [place] [address] [address] Imaging [place] [address] Referral ID Status Reason Start Date Expiration Date V isits Requested Visits Authorized [id number] Closed Auto-Generate d Referral 03/16/2024 10/05/2024 1 1 Specialty Diagnoses / Procedures Referred By Contac t Referred [facility] Diagnoses Pelvic mass Procedures ECG COMPLETE ECG ROUTINE ECG W/LEAST 12 LDS W/I&[place] [address] [place] [address] [facility] [address] [address] Referral ID Status Reason Start Date Expiration Date Visits Requested Visits Authorized [id number] Pending Review Auto-Generat ed Referral 03/15/2024 03/15/2025 1 1 Specialty Diagnoses / Procedures Referred By Contac t Referred To Contact Diagnoses Pelvic mass Procedures CONSULT TO GYNECOLOGIC/ONCOLOGY OFFICE/OUTPATIENT [facility] 60 MINUTES Romel Michelle MD [address] [place] [address] Referral ID Status Reason Start Date Expiration Date V isits Requested Visits Authorized [id number] Closed PCP Requested Referral Auto-Generated Referral 03/11/2024 03/10/2025 1 1 Specialty Diagnoses / Procedures Referred By Contac t Referred To Contact Diagnoses Abdominal bloating Pelvic mass Cathy Coles APRN.CLAMP OPERATOR [address] [place] [address] Referral ID Status Reason Start Date Expiration Date Visits Re quested Visits Authorized [id number] Closed 1 1 Specialty Diagnoses / Procedures Referred By Contac t Referred To Contact Diagnoses Post-operative state Carey Elias APRN.CNP [address] [place] [address] Referral ID Status Reason Start Date Expiration Date Visits Re quested Visits Authorized [id number] Closed 1 1 Specialty Diagnoses / Procedures Referred By Contac t Referred To Contact Diagnoses High grade ovarian cancer (HCC) Procedures CONSULT TO HEMATOLOGY/ONCOLOGY OFFICE/OUTPATIENT [facility] 60 [place] [address] [place] [address] Nile Hall, [address] [facility] [place] [address] Referral ID Status Reason Start Date Expiration Date Visits Requested Visits Authorized [id number] Authorized PCP Requested Referral 04/19/2024 04/19/2025 1 1 Specialty Diagnoses / Procedures Referred By Contac t Referred To Contact Diagnoses Abdominal bloating Pelvic mass High grade ovarian cancer (HCC) Procedures CONSULT TO MEDICAL GENETICS - CANCER MEDICAL GENETICS COUNSELING EACH 30 MINUTES Carey Elias APRN.CLAMP OPERATOR [address] [place] [id number] [place] [id number] [place] [address] Referral ID Status Reason Start Date Expiration Date Visits Requested Visits Authorized [id number] Authorized PCP Requested Referral Auto-Generate d Referral 04/19/2024 04/19/2025 1 1 Specialty Diagnoses / Procedures Referred By Contac t Referred To Contact Diagnoses Abdominal bloating Pelvic mass High grade ovarian cancer (HCC) Carey Elias APRN.CNP [address] [place] [address] Referral ID Status Reason Start Date Expiration Date Visits Re quested Visits Authorized [id number] Closed 1 1 Specialty Diagnoses / Procedures Referred By Contac t Referred To Contact CT IMAGING Diagnoses High grade ovarian cancer (HCC) Procedures CT ABD/PEL W IVCON CT ABD & PELVIS W/CONTRAST MarquiseNile harris, DO [address] [place] [address] [place] [address] Referral ID Status Reason Start Date Expiration Date Visits Requested Visits Authorized [id number] New Request Auto-Generat ed Referral 05/18/2024 06/17/2025 1 1 Specialty Diagnoses / Procedures Referred By Contac t Referred To Contact CT IMAGING Diagnoses High grade ovarian cancer (HCC) Procedures CT CHEST W IVCON DIAGNOSTIC COMPUTED TOMOGRAPHY THORAX W/CONTRAST Nile Hall, DO [address] [place] [address] Ct Imaging [id number] Referral ID Status Reason Start Date Expiration Date Visits Requested Visits Authorized [id number] New Request Auto-Generat ed Referral 05/18/2024 06/17/2025 1 1 Referral ID Status Reason Start Date Expiration Date Visits Requested Visits Authorized [id number] New Request Auto-Generat ed Referral 05/18/2024 06/17/2025 1 1 Referral ID Status Reason Start Date Expiration Date Visits Requested Visits Authorized [id number] New Request Auto-Generat ed Referral 05/18/2024 06/17/2025 1 1 Referral ID Status Reason Start Date Expiration Date Visits Requested Visits Authorized [id number] Authorized Auto-Generat ed Referral 08/11/2024 09/10/2025 1 1 Referral ID Status Reason Start Date Expiration Date Visits Requested Visits Authorized [id number] Authorized Auto-Generat ed Referral 08/11/2024 09/10/2025 1 1 Specialty Diagnoses / Procedures Referred By Contac t Referred To Contact Diagnoses High grade ovarian cancer (HCC) Preop examination Procedures REFER TO [facility] - PREOPERATIVE OPTIMIZATION OFFICE/OUTPATIENT NEW HIGH MDM 60 MINUTES Karla Ford, WATER COMMISSIONER.CLAMP OPERATOR [address] [place] [address] Referral ID Status Reason Start Date Expiration Date Visits Requested Visits Authorized [id number] Authorized PCP Requested Referral 09/01/2025 1 1 [...] Yes December 20, 2024 11:07am [facility] Yes December 20 11:07am Name of Medical Power of [facility] - [facility] December 20, 2024 11:07am Advance Directive Response Recorded Date/ Time Living Will Yes January 05, 2025 2:23pm Do you have a Healthcare Power of [facility]? Yes January 05, 2025 2:23pm Name of Medical [facility] January 05, 2025 2:23pm Living Will Yes December 20, 2024 11:07am Do you have a Healthcare Power of [facility]? Yes December 20, 2024 11:07am Name of Medical Power of [facility] - [facility]ICA[facility] Y December 20, 2024 11:07am Advance Directive Response Recorded Date/ Time Living Will Yes January 05, 2025 2:23pm Do you have a Healthcare Power of [facility]? Yes January 05, 2025 2:23pm Name of Medical [facility] January 05, 2025 2:23pm Do you have a Healthcare Power of [facility]? Yes April 22, 2025 2:45pm Advance Directive Response Recorded Date/ Time Do you have a Healthcare Power of [facility]? Yes April 22, 2025 2:45pm Summary Purpose Family History No Family History Records Found Additional Source Comments Source Comments (unrecognize d section and content) In the event this informatio n is protected by the Federal Confidentiality of Alcohol and Drug Abuse Patient Records regulations: The Federal rules restrict any use of the information to criminally investigate or prosecute any alcohol or drug abuse patient.[facility] the event this information is protected by the Federal Confidentiality of Alcohol and Drug Abuse Patient Records regulations: The Federal rules restrict any use of the information to criminally investigate or prosecute any alcohol or drug abuse patient.[facility] the event this information is protected by the Federal Confidentiality of Alcohol and Drug Abuse Patient Records regulations: The Federal rules restrict any use of the information to criminally investigate or prosecute any alcohol or drug abuse patient.[facility] the event this information is protected by the Federal Confidentiality of Alcohol and Drug Abuse Patient Records regulations: The Federal rules restrict any use of the information to criminally investigate or prosecute any alcohol or drug abuse patient.[facility] the event this information is protected by the Federal Confidentiality of Alcohol and Drug Abuse Patient Records regulations: The Federal rules restrict any use of the information to criminally investigate or prosecute any alcohol or drug abuse patient.[facility] the event this information is protected by the Federal Confidentiality of Alcohol and Drug Abuse Patient Records regulations: The Federal rules restrict any use of the information to criminally investigate or prosecute any alcohol or drug abuse patient.[facility] the event this information is protected by the Federal Confidentiality of Alcohol and Drug Abuse Patient Records regulations: The Federal rules restrict any use of the information to criminally investigate or prosecute any alcohol or drug abuse patient.[facility] the event this information is protected by the Federal Confidentiality of Alcohol and Drug Abuse Patient Records regulations: The Federal rules restrict any use of the information to criminally investigate or prosecute any alcohol or drug abuse patient.[facility] the event this information is protected by the Federal Confidentiality of Alcohol and Drug Abuse Patient Records regulations: The Federal rules restrict any use of the information to criminally investigate or prosecute any alcohol or drug abuse patient.[facility]In the event this information is protected by the Federal Confidentiality of Alcohol and Drug Abuse Patient Records regulations: The Federal rules restrict any use of the information to criminally investigate or prosecute any alcohol or drug abuse patient.[facility]In the event this information is protected by the Federal Confidentiality of Alcohol and Drug Abuse Patient Records regulations: The Federal rules restrict any use of the information to criminally investigate or prosecute any alcohol or drug abuse patient.[facility] the event this information is protected by the Federal Confidentiality of Alcohol and Drug Abuse Patient Records regulations: The Federal rules restrict any use of the information to criminally investigate or prosecute any alcohol or drug abuse patient.[facility]In the event this information is protected by the Federal Confidentiality of Alcohol and Drug Abuse Patient Records regulations: The Federal rules restrict any use of the information to criminally investigate or prosecute any alcohol or drug abuse patient.[facility]In the event this information is protected by the Federal Confidentiality of Alcohol and Drug Abuse Patient Records regulations: The Federal rules restrict any use of the information to criminally investigate or prosecute any alcohol or drug abuse patient.[facility]In the event this information is protected by the Federal Confidentiality of Alcohol and Drug Abuse Patient Records regulations: The Federal rules restrict any use of the information to criminally investigate or prosecute any alcohol or drug abuse patient.[facility]In the event this information is protected by the Federal Confidentiality of Alcohol and Drug Abuse Patient Records regulations: The Federal rules restrict any use of the information to criminally investigate or prosecute any alcohol or drug abuse patient.[facility]In the event this information is protected by the Federal Confidentiality of Alcohol and Drug Abuse Patient Records regulations: The Federal rules restrict any use of the information to criminally investigate or prosecute any alcohol or drug abuse patient.[facility]In the event this information is protected by the Federal Confidentiality of Alcohol and Drug Abuse Patient Records regulations: The Federal rules restrict any use of the information to criminally investigate or prosecute any alcohol or drug abuse patient.[facility]In the event this information is protected by the Federal Confidentiality of Alcohol and Drug Abuse Patient Records regulations: The Federal rules restrict any use of the information to criminally investigate or prosecute any alcohol or drug abuse patient.[facility]In the event this information is protected by the Federal Confidentiality of Alcohol and Drug Abuse Patient Records regulations: The Federal rules restrict any use of the information to criminally investigate or prosecute any alcohol or drug abuse patient.[facility]In the event this information is protected by the Federal Confidentiality of Alcohol and Drug Abuse Patient Records regulations: The Federal rules restrict any use of the information to criminally investigate or prosecute any alcohol or drug abuse patient.[facility]In the event this information is protected by the Federal Confidentiality of Alcohol and Drug Abuse Patient Records regulations: The Federal rules restrict any use of the information to criminally investigate or prosecute any alcohol or drug abuse patient.[facility]In the event this information is protected by the Federal Confidentiality of Alcohol and Drug Abuse Patient Records regulations: The Federal rules restrict any use of the information to criminally investigate or prosecute any alcohol or drug abuse patient.[facility]In the event this information is protected by the Federal Confidentiality of Alcohol and Drug Abuse Patient Records regulations: The Federal rules restrict any use of the information to criminally investigate or prosecute any alcohol or drug abuse patient.[facility]In the event this information is protected by the Federal Confidentiality of Alcohol and Drug Abuse Patient Records regulations: The Federal rules restrict any use of the information to criminally investigate or prosecute any alcohol or drug abuse patient.[facility]In the event this information is protected by the Federal Confidentiality of Alcohol and Drug Abuse Patient Records regulations: The Federal rules restrict any use of the information to criminally investigate or prosecute any alcohol or drug abuse patient.[facility]In the event this information is protected by the Federal Confidentiality of Alcohol and Drug Abuse Patient Records regulations: The Federal rules restrict any use of the information to criminally investigate or prosecute any alcohol or drug abuse patient.[facility]In the event this information is protected by the Federal Confidentiality of Alcohol and Drug Abuse Patient Records regulations: The Federal rules restrict any use of the information to criminally investigate or prosecute any alcohol or drug abuse patient.[facility]In the event this information is protected by the Federal Confidentiality of Alcohol and Drug Abuse Patient Records regulations: The Federal rules restrict any use of the information to criminally investigate or prosecute any alcohol or drug abuse patient.[facility]In the event this information is protected by the Federal Confidentiality of Alcohol and Drug Abuse Patient Records regulations: The Federal rules restrict any use of the information to criminally investigate or prosecute any alcohol or drug abuse patient.[facility]In the event this information is protected by the Federal Confidentiality of Alcohol and Drug Abuse Patient Records regulations: The Federal rules restrict any use of the information to criminally investigate or prosecute any alcohol or drug abuse patient.[facility]In the event this information is protected by the Federal Confidentiality of Alcohol and Drug Abuse Patient Records regulations: The Federal rules restrict any use of the information to criminally investigate or prosecute any alcohol or drug abuse patient.[facility]In the event this information is protected by the Federal Confidentiality of Alcohol and Drug Abuse Patient Records regulations: The Federal rules restrict any use of the information to criminally investigate or prosecute any alcohol or drug abuse patient.[facility]In the event this information is protected by the Federal Confidentiality of Alcohol and Drug Abuse Patient Records regulations: The Federal rules restrict any use of the information to criminally investigate or prosecute any alcohol or drug abuse patient.[facility]In the event this information is protected by the Federal Confidentiality of Alcohol and Drug Abuse Patient Records regulations: The Federal rules restrict any use of the information to criminally investigate or prosecute any alcohol or drug abuse patient.[facility]In the event this information is protected by the Federal Confidentiality of Alcohol and Drug Abuse Patient Records regulations: The Federal rules restrict any use of the information to criminally investigate or prosecute any alcohol or drug abuse patient.[facility]In the event this information is protected by the Federal Confidentiality of Alcohol and Drug Abuse Patient Records regulations: The Federal rules restrict any use of the information to criminally investigate or prosecute any alcohol or drug abuse patient.[facility]In the event this information is protected by the Federal Confidentiality of Alcohol and Drug Abuse Patient Records regulations: The Federal rules restrict any use of the information to criminally investigate or prosecute any alcohol or drug abuse patient.[facility]In the event this information is protected by the Federal Confidentiality of Alcohol and Drug Abuse Patient Records regulations: The Federal rules restrict any use of the information to criminally investigate or prosecute any alcohol or drug abuse patient.[facility] HospitalIn the event this information is protected by the Federal Confidentiality of Alcohol and Drug Abuse Patient Records regulations: The Federal rules restrict any use of the information to criminally investigate or prosecute any alcohol or drug abuse patient.[facility] HospitalIn the event this information is protected by the Federal Confidentiality of Alcohol and Drug Abuse Patient Records regulations: The Federal rules restrict any use of the information to criminally investigate or prosecute any alcohol or drug abuse patient.[facility] HospitalIn the event this information is protected by the Federal Confidentiality of Alcohol and Drug Abuse Patient Records regulations: The Federal rules restrict any use of the information to criminally investigate or prosecute any alcohol or drug abuse patient.[facility]In the event this information is protected by the Federal Confidentiality of Alcohol and Drug Abuse Patient Records regulations: The Federal rules restrict any use of the information to criminally investigate or prosecute any alcohol or drug abuse patient.[facility]In the event this information is protected by the Federal Confidentiality of Alcohol and Drug Abuse Patient Records regulations: The Federal rules restrict any use of the information to criminally investigate or prosecute any alcohol or drug abuse patient.[facility]In the event this information is protected by the Federal Confidentiality of Alcohol and Drug Abuse Patient Records regulations: The Federal rules restrict any use of the information to criminally investigate or prosecute any alcohol or drug abuse patient.[facility] HospitalIn the event this information is protected by the Federal Confidentiality of Alcohol and Drug Abuse Patient Records regulations: The Federal rules restrict any use of the information to criminally investigate or prosecute any alcohol or drug abuse patient.[facility]In the event this information is protected by the Federal Confidentiality of Alcohol and Drug Abuse Patient Records regulations: The Federal rules restrict any use of the information to criminally investigate or prosecute any alcohol or drug abuse patient.[facility]In the event this information is protected by the Federal Confidentiality of Alcohol and Drug Abuse Patient Records regulations: The Federal rules restrict any use of the information to criminally investigate or prosecute any alcohol or drug abuse patient.[facility]In the event this information is protected by the Federal Confidentiality of Alcohol and Drug Abuse Patient Records regulations: The Federal rules restrict any use of the information to criminally investigate or prosecute any alcohol or drug abuse patient.[facility]In the event this information is protected by the Federal Confidentiality of Alcohol and Drug Abuse Patient Records regulations: The Federal rules restrict any use of the information to criminally investigate or prosecute any alcohol or drug abuse patient.[facility]In the event this information is protected by the Federal Confidentiality of Alcohol and Drug Abuse Patient Records regulations: The Federal rules restrict any use of the information to criminally investigate or prosecute any alcohol or drug abuse patient.[facility]In the event this information is protected by the Federal Confidentiality of Alcohol and Drug Abuse Patient Records regulations: The Federal rules restrict any use of the information to criminally investigate or prosecute any alcohol or drug abuse patient.[facility] HospitalIn the event this information is protected by the Federal Confidentiality of Alcohol and Drug Abuse Patient Records regulations: The Federal rules restrict any use of the information to criminally investigate or prosecute any alcohol or drug abuse patient.[facility] HospitalIn the event this information is protected by the Federal Confidentiality of Alcohol and Drug Abuse Patient Records regulations: The Federal rules restrict any use of the information to criminally investigate or prosecute any alcohol or drug abuse patient.[facility] HospitalIn the event this information is protected by the Federal Confidentiality of Alcohol and Drug Abuse Patient Records regulations: The Federal rules restrict any use of the information to criminally investigate or prosecute any alcohol or drug abuse patient.[facility] the event this information is protected by the Federal Confidentiality of Alcohol and Drug Abuse Patient Records regulations: The Federal rules restrict any use of the information to criminally investigate or prosecute any alcohol or drug abuse patient.[facility]In the event this information is protected by the Federal Confidentiality of Alcohol and Drug Abuse Patient Records regulations: The Federal rules restrict any use of the information to criminally investigate or prosecute any alcohol or drug abuse patient.[facility]In the event this information is protected by the Federal Confidentiality of Alcohol and Drug Abuse Patient Records regulations: The Federal rules restrict any use of the information to criminally investigate or prosecute any alcohol or drug abuse patient.[facility]In the event this information is protected by the Federal Confidentiality of Alcohol and Drug Abuse Patient Records regulations: The Federal rules restrict any use of the information to criminally investigate or prosecute any alcohol or drug abuse patient.[facility]In the event this information is protected by the Federal Confidentiality of Alcohol and Drug Abuse Patient Records regulations: The Federal rules restrict any use of the information to criminally investigate or prosecute any alcohol or drug abuse patient.[facility]In the event this information is protected by the Federal Confidentiality of Alcohol and Drug Abuse Patient Records regulations: The Federal rules restrict any use of the information to criminally investigate or prosecute any alcohol or drug abuse patient.[facility]In the event this information is protected by the Federal Confidentiality of Alcohol and Drug Abuse Patient Records regulations: The Federal rules restrict any use of the information to criminally investigate or prosecute any alcohol or drug abuse patient.[facility]In the event this information is protected by the Federal Confidentiality of Alcohol and Drug Abuse Patient Records regulations: The Federal rules restrict any use of the information to criminally investigate or prosecute any alcohol or drug abuse patient.[facility]In the event this information is protected by the Federal Confidentiality of Alcohol and Drug Abuse Patient Records regulations: The Federal rules restrict any use of the information to criminally investigate or prosecute any alcohol or drug abuse patient.[facility]In the event this information is protected by the Federal Confidentiality of Alcohol and Drug Abuse Patient Records regulations: The Federal rules restrict any use of the information to criminally investigate or prosecute any alcohol or drug abuse patient.[facility]In the event this information is protected by the Federal Confidentiality of Alcohol and Drug Abuse Patient Records regulations: The Federal rules restrict any use of the information to criminally investigate or prosecute any alcohol or drug abuse patient.[facility]In the event this information is protected by the Federal Confidentiality of Alcohol and Drug Abuse Patient Records regulations: The Federal rules restrict any use of the information to criminally investigate or prosecute any alcohol or drug abuse patient.[facility]In the event this information is protected by the Federal Confidentiality of Alcohol and Drug Abuse Patient Records regulations: The Federal rules restrict any use of the information to criminally investigate or prosecute any alcohol or drug abuse patient.[facility]In the event this information is protected by the Federal Confidentiality of Alcohol and Drug Abuse Patient Records regulations: The Federal rules restrict any use of the information to criminally investigate or prosecute any alcohol or drug abuse patient.[facility]In the event this information is protected by the Federal Confidentiality of Alcohol and Drug Abuse Patient Records regulations: The Federal rules restrict any use of the information to criminally investigate or prosecute any alcohol or drug abuse patient.[facility]In the event this information is protected by the Federal Confidentiality of Alcohol and Drug Abuse Patient Records regulations: The Federal rules restrict any use of the information to criminally investigate or prosecute any alcohol or drug abuse patient.[facility]In the event this information is protected by the Federal Confidentiality of Alcohol and Drug Abuse Patient Records regulations: The Federal rules restrict any use of the information to criminally investigate or prosecute any alcohol or drug abuse patient.[facility]In the event this information is protected by the Federal Confidentiality of Alcohol and Drug Abuse Patient Records regulations: The Federal rules restrict any use of the information to criminally investigate or prosecute any alcohol or drug abuse patient.[facility]In the event this information is protected by the Federal Confidentiality of Alcohol and Drug Abuse Patient Records regulations: The Federal rules restrict any use of the information to criminally investigate or prosecute any alcohol or drug abuse patient.[facility]In the event this information is protected by the Federal Confidentiality of Alcohol and Drug Abuse Patient Records regulations: The Federal rules restrict any use of the information to criminally investigate or prosecute any alcohol or drug abuse patient.[facility]In the event this information is protected by the Federal Confidentiality of Alcohol and Drug Abuse Patient Records regulations: The Federal rules restrict any use of the information to criminally investigate or prosecute any alcohol or drug abuse patient.[facility]In the event this information is protected by the Federal Confidentiality of Alcohol and Drug Abuse Patient Records regulations: The Federal rules restrict any use of the information to criminally investigate or prosecute any alcohol or drug abuse patient.[facility]In the event this information is protected by the Federal Confidentiality of Alcohol and Drug Abuse Patient Records regulations: The Federal rules restrict any use of the information to criminally investigate or prosecute any alcohol or drug abuse patient.[facility]In the event this information is protected by the Federal Confidentiality of Alcohol and Drug Abuse Patient Records regulations: The Federal rules restrict any use of the information to criminally investigate or prosecute any alcohol or drug abuse patient.[facility]In the event this information is protected by the Federal Confidentiality of Alcohol and Drug Abuse Patient Records regulations: The Federal rules restrict any use of the information to criminally investigate or prosecute any alcohol or drug abuse patient.[facility]In the event this information is protected by the Federal Confidentiality of Alcohol and Drug Abuse Patient Records regulations: The Federal rules restrict any use of the information to criminally investigate or prosecute any alcohol or drug abuse patient.[facility]In the event this information is protected by the Federal Confidentiality of Alcohol and Drug Abuse Patient Records regulations: The Federal rules restrict any use of the information to criminally investigate or prosecute any alcohol or drug abuse patient.[facility]In the event this information is protected by the Federal Confidentiality of Alcohol and Drug Abuse Patient Records regulations: The Federal rules restrict any use of the information to criminally investigate or prosecute any alcohol or drug abuse patient.[facility]In the event this information is protected by the Federal Confidentiality of Alcohol and Drug Abuse Patient Records regulations: The Federal rules restrict any use of the information to criminally investigate or prosecute any alcohol or drug abuse patient.[facility]In the event this information is protected by the Federal Confidentiality of Alcohol and Drug Abuse Patient Records regulations: The Federal rules restrict any use of the information to criminally investigate or prosecute any alcohol or drug abuse patient.[facility]In the event this information is protected by the Federal Confidentiality of Alcohol and Drug Abuse Patient Records regulations: The Federal rules restrict any use of the information to criminally investigate or prosecute any alcohol or drug abuse patient.[facility]In the event this information is protected by the Federal Confidentiality of Alcohol and Drug Abuse Patient Records regulations: The Federal rules restrict any use of the information to criminally investigate or prosecute any alcohol or drug abuse patient.[facility]In the event this information is protected by the Federal Confidentiality of Alcohol and Drug Abuse Patient Records regulations: The Federal rules restrict any use of the information to criminally investigate or prosecute any alcohol or drug abuse patient.[facility]In the event this information is protected by the Federal Confidentiality of Alcohol and Drug Abuse Patient Records regulations: The Federal rules restrict any use of the information to criminally investigate or prosecute any alcohol or drug abuse patient.[facility]In the event this information is protected by the Federal Confidentiality of Alcohol and Drug Abuse Patient Records regulations: The Federal rules restrict any use of the information to criminally investigate or prosecute any alcohol or drug abuse patient.[facility]In the event this information is protected by the Federal Confidentiality of Alcohol and Drug Abuse Patient Records regulations: The Federal rules restrict any use of the information to criminally investigate or prosecute any alcohol or drug abuse patient.[facility]In the event this information is protected by the Federal Confidentiality of Alcohol and Drug Abuse Patient Records regulations: The Federal rules restrict any use of the information to criminally investigate or prosecute any alcohol or drug abuse patient.[facility]In the event this information is protected by the Federal Confidentiality of Alcohol and Drug Abuse Patient Records regulations: The Federal rules restrict any use of the information to criminally investigate or prosecute any alcohol or drug abuse patient.[facility]In the event this information is protected by the Federal Confidentiality of Alcohol and Drug Abuse Patient Records regulations: The Federal rules restrict any use of the information to criminally investigate or prosecute any alcohol or drug abuse patient.[facility]In the event this information is protected by the Federal Confidentiality of Alcohol and Drug Abuse Patient Records regulations: The Federal rules restrict any use of the information to criminally investigate or prosecute any alcohol or drug abuse patient.[facility]In the event this information is protected by the Federal Confidentiality of Alcohol and Drug Abuse Patient Records regulations: The Federal rules restrict any use of the information to criminally investigate or prosecute any alcohol or drug abuse patient.[facility]In the event this information is protected by the Federal Confidentiality of Alcohol and Drug Abuse Patient Records regulations: The Federal rules restrict any use of the information to criminally investigate or prosecute any alcohol or drug abuse patient.[facility]In the event this information is protected by the Federal Confidentiality of Alcohol and Drug Abuse Patient Records regulations: The Federal rules restrict any use of the information to criminally investigate or prosecute any alcohol or drug abuse patient.[facility]In the event this information is protected by the Federal Confidentiality of Alcohol and Drug Abuse Patient Records regulations: The Federal rules restrict any use of the information to criminally investigate or prosecute any alcohol or drug abuse patient.[facility]In the event this information is protected by the Federal Confidentiality of Alcohol and Drug Abuse Patient Records regulations: The Federal rules restrict any use of the information to criminally investigate or prosecute any alcohol or drug abuse patient.[facility]In the event this information is protected by the Federal Confidentiality of Alcohol and Drug Abuse Patient Records regulations: The Federal rules restrict any use of the information to criminally investigate or prosecute any alcohol or drug abuse patient.[facility]In the event this information is protected by the Federal Confidentiality of Alcohol and Drug Abuse Patient Records regulations: The Federal rules restrict any use of the information to criminally investigate or prosecute any alcohol or drug abuse patient.[facility]In the event this information is protected by the Federal Confidentiality of Alcohol and Drug Abuse Patient Records regulations: The Federal rules restrict any use of the information to criminally investigate or prosecute any alcohol or drug abuse patient.[facility]In the event this information is protected by the Federal Confidentiality of Alcohol and Drug Abuse Patient Records regulations: The Federal rules restrict any use of the information to criminally investigate or prosecute any alcohol or drug abuse patient.[facility]In the event this information is protected by the Federal Confidentiality of Alcohol and Drug Abuse Patient Records regulations: The Federal rules restrict any use of the information to criminally investigate or prosecute any alcohol or drug abuse patient.[facility]In the event this information is protected by the Federal Confidentiality of Alcohol and Drug Abuse Patient Records regulations: The Federal rules restrict any use of the information to criminally investigate or prosecute any alcohol or drug abuse patient.[facility]In the event this information is protected by the Federal Confidentiality of Alcohol and Drug Abuse Patient Records regulations: The Federal rules restrict any use of the information to criminally investigate or prosecute any alcohol or drug abuse patient.[facility]In the event this information is protected by the Federal Confidentiality of Alcohol and Drug Abuse Patient Records regulations: The Federal rules restrict any use of the information to criminally investigate or prosecute any alcohol or drug abuse patient.[facility]In the event this information is protected by the Federal Confidentiality of Alcohol and Drug Abuse Patient Records regulations: The Federal rules restrict any use of the information to criminally investigate or prosecute any alcohol or drug abuse patient.[facility]In the event this information is protected by the Federal Confidentiality of Alcohol and Drug Abuse Patient Records regulations: The Federal rules restrict any use of the information to criminally investigate or prosecute any alcohol or drug abuse patient.[facility]In the event this information is protected by the Federal Confidentiality of Alcohol and Drug Abuse Patient Records regulations: The Federal rules restrict any use of the information to criminally investigate or prosecute any alcohol or drug abuse patient.[facility]In the event this information is protected by the Federal Confidentiality of Alcohol and Drug Abuse Patient Records regulations: The Federal rules restrict any use of the information to criminally investigate or prosecute any alcohol or drug abuse patient.[facility]In the event this information is protected by the Federal Confidentiality of Alcohol and Drug Abuse Patient Records regulations: The Federal rules restrict any use of the information to criminally investigate or prosecute any alcohol or drug abuse patient.[facility]In the event this information is protected by the Federal Confidentiality of Alcohol and Drug Abuse Patient Records regulations: The Federal rules restrict any use of the information to criminally investigate or prosecute any alcohol or drug abuse patient.[facility]In the event this information is protected by the Federal Confidentiality of Alcohol and Drug Abuse Patient Records regulations: The Federal rules restrict any use of the information to criminally investigate or prosecute any alcohol or drug abuse patient.[facility]In the event this information is protected by the Federal Confidentiality of Alcohol and Drug Abuse Patient Records regulations: The Federal rules restrict any use of the information to criminally investigate or prosecute any alcohol or drug abuse patient.[facility]In the event this information is protected by the Federal Confidentiality of Alcohol and Drug Abuse Patient Records regulations: The Federal rules restrict any use of the information to criminally investigate or prosecute any alcohol or drug abuse patient.[facility]In the event this information is protected by the Federal Confidentiality of Alcohol and Drug Abuse Patient Records regulations: The Federal rules restrict any use of the information to criminally investigate or prosecute any alcohol or drug abuse patient.[facility]In the event this information is protected by the Federal Confidentiality of Alcohol and Drug Abuse Patient Records regulations: The Federal rules restrict any use of the information to criminally investigate or prosecute any alcohol or drug abuse patient.[facility]In the event this information is protected by the Federal Confidentiality of Alcohol and Drug Abuse Patient Records regulations: The Federal rules restrict any use of the information to criminally investigate or prosecute any alcohol or drug abuse patient.[facility]In the event this information is protected by the Federal Confidentiality of Alcohol and Drug Abuse Patient Records regulations: The Federal rules restrict any use of the information to criminally investigate or prosecute any alcohol or drug abuse patient.[facility]In the event this information is protected by the Federal Confidentiality of Alcohol and Drug Abuse Patient Records regulations: The Federal rules restrict any use of the information to criminally investigate or prosecute any alcohol or drug abuse patient.[facility]In the event this information is protected by the Federal Confidentiality of Alcohol and Drug Abuse Patient Records regulations: The Federal rules restrict any use of the information to criminally investigate or prosecute any alcohol or drug abuse patient.[facility]In the event this information is protected by the Federal Confidentiality of Alcohol and Drug Abuse Patient Records regulations: The Federal rules restrict any use of the information to criminally investigate or prosecute any alcohol or drug abuse patient.[facility]In the event this information is protected by the Federal Confidentiality of Alcohol and Drug Abuse Patient Records regulations: The Federal rules restrict any use of the information to criminally investigate or prosecute any alcohol or drug abuse patient.[facility]In the event this information is protected by the Federal Confidentiality of Alcohol and Drug Abuse Patient Records regulations: The Federal rules restrict any use of the information to criminally investigate or prosecute any alcohol or drug abuse patient.[facility]In the event this information is protected by the Federal Confidentiality of Alcohol and Drug Abuse Patient Records regulations: The Federal rules restrict any use of the information to criminally investigate or prosecute any alcohol or drug abuse patient.[facility]In the event this information is protected by the Federal Confidentiality of Alcohol and Drug Abuse Patient Records regulations: The Federal rules restrict any use of the information to criminally investigate or prosecute any alcohol or drug abuse patient.[facility]In the event this information is protected by the Federal Confidentiality of Alcohol and Drug Abuse Patient Records regulations: The Federal rules restrict any use of the information to criminally investigate or prosecute any alcohol or drug abuse patient.[facility]In the event this information is protected by the Federal Confidentiality of Alcohol and Drug Abuse Patient Records regulations: The Federal rules restrict any use of the information to criminally investigate or prosecute any alcohol or drug abuse patient.[facility]In the event this information is protected by the Federal Confidentiality of Alcohol and Drug Abuse Patient Records regulations: The Federal rules restrict any use of the information to criminally investigate or prosecute any alcohol or drug abuse patient.[facility]In the event this information is protected by the Federal Confidentiality of Alcohol and Drug Abuse Patient Records regulations: The Federal rules restrict any use of the information to criminally investigate or prosecute any alcohol or drug abuse patient.[facility]In the event this information is protected by the Federal Confidentiality of Alcohol and Drug Abuse Patient Records regulations: The Federal rules restrict any use of the information to criminally investigate or prosecute any alcohol or drug abuse patient.[facility]In the event this information is protected by the Federal Confidentiality of Alcohol and Drug Abuse Patient Records regulations: The Federal rules restrict any use of the information to criminally investigate or prosecute any alcohol or drug abuse patient.[facility]In the event this information is protected by the Federal Confidentiality of Alcohol and Drug Abuse Patient Records regulations: The Federal rules restrict any use of the information to criminally investigate or prosecute any alcohol or drug abuse patient.[facility]In the event this information is protected by the Federal Confidentiality of Alcohol and Drug Abuse Patient Records regulations: The Federal rules restrict any use of the information to criminally investigate or prosecute any alcohol or drug abuse patient.[facility]In the event this information is protected by the Federal Confidentiality of Alcohol and Drug Abuse Patient Records regulations: The Federal rules restrict any use of the information to criminally investigate or prosecute any alcohol or drug abuse patient.[facility]In the event this information is protected by the Federal Confidentiality of Alcohol and Drug Abuse Patient Records regulations: The Federal rules restrict any use of the information to criminally investigate or prosecute any alcohol or drug abuse patient.[facility]In the event this information is protected by the Federal Confidentiality of Alcohol and Drug Abuse Patient Records regulations: The Federal rules restrict any use of the information to criminally investigate or prosecute any alcohol or drug abuse patient.[facility]In the event this information is protected by the Federal Confidentiality of Alcohol and Drug Abuse Patient Records regulations: The Federal rules restrict any use of the information to criminally investigate or prosecute any alcohol or drug abuse patient.[facility] HospitalIn the event this information is protected by the Federal Confidentiality of Alcohol and Drug Abuse Patient Records regulations: The Federal rules restrict any use of the information to criminally investigate or prosecute any alcohol or drug abuse patient.[facility] HospitalIn the event this information is protected by the Federal Confidentiality of Alcohol and Drug Abuse Patient Records regulations: The Federal rules restrict any use of the information to criminally investigate or prosecute any alcohol or drug abuse patient.[facility]In the event this information is protected by the Federal Confidentiality of Alcohol and Drug Abuse Patient Records regulations: The Federal rules restrict any use of the information to criminally investigate or prosecute any alcohol or drug abuse patient.[facility]In the event this information is protected by the Federal Confidentiality of Alcohol and Drug Abuse Patient Records regulations: The Federal rules restrict any use of the information to criminally investigate or prosecute any alcohol or drug abuse patient.[facility] HospitalIn the event this information is protected by the Federal Confidentiality of Alcohol and Drug Abuse Patient Records regulations: The Federal rules restrict any use of the information to criminally investigate or prosecute any alcohol or drug abuse patient.[facility]In the event this information is protected by the Federal Confidentiality of Alcohol and Drug Abuse Patient Records regulations: The Federal rules restrict any use of the information to criminally investigate or prosecute any alcohol or drug abuse patient.[facility]In the event this information is protected by the Federal Confidentiality of Alcohol and Drug Abuse Patient Records regulations: The Federal rules restrict any use of the information to criminally investigate or prosecute any alcohol or drug abuse patient.[facility]In the event this information is protected by the Federal Confidentiality of Alcohol and Drug Abuse Patient Records regulations: The Federal rules restrict any use of the information to criminally investigate or prosecute any alcohol or drug abuse patient.[facility]In the event this information is protected by the Federal Confidentiality of Alcohol and Drug Abuse Patient Records regulations: The Federal rules restrict any use of the information to criminally investigate or prosecute any alcohol or drug abuse patient.[facility]In the event this information is protected by the Federal Confidentiality of Alcohol and Drug Abuse Patient Records regulations: The Federal rules restrict any use of the information to criminally investigate or prosecute any alcohol or drug abuse patient.[facility]In the event this information is protected by the Federal Confidentiality of Alcohol and Drug Abuse Patient Records regulations: The Federal rules restrict any use of the information to criminally investigate or prosecute any alcohol or drug abuse patient.[facility] HospitalIn the event this information is protected by the Federal Confidentiality of Alcohol and Drug Abuse Patient Records regulations: The Federal rules restrict any use of the information to criminally investigate or prosecute any alcohol or drug abuse patient.[facility]In the event this information is protected by the Federal Confidentiality of Alcohol and Drug Abuse Patient Records regulations: The Federal rules restrict any use of the information to criminally investigate or prosecute any alcohol or drug abuse patient.[facility]In the event this information is protected by the Federal Confidentiality of Alcohol and Drug Abuse Patient Records regulations: The Federal rules restrict any use of the information to criminally investigate or prosecute any alcohol or drug abuse patient.[facility] HospitalIn the event this information is protected by the Federal Confidentiality of Alcohol and Drug Abuse Patient Records regulations: The Federal rules restrict any use of the information to criminally investigate or prosecute any alcohol or drug abuse patient.[facility] HospitalIn the event this information is protected by the Federal Confidentiality of Alcohol and Drug Abuse Patient Records regulations: The Federal rules restrict any use of the information to criminally investigate or prosecute any alcohol or drug abuse patient.[facility]In the event this information is protected by the Federal Confidentiality of Alcohol and Drug Abuse Patient Records regulations: The Federal rules restrict any use of the information to criminally investigate or prosecute any alcohol or drug abuse patient.[facility] HospitalIn the event this information is protected by the Federal Confidentiality of Alcohol and Drug Abuse Patient Records regulations: The Federal rules restrict any use of the information to criminally investigate or prosecute any alcohol or drug abuse patient.[facility] HospitalIn the event this information is protected by the Federal Confidentiality of Alcohol and Drug Abuse Patient Records regulations: The Federal rules restrict any use of the information to criminally investigate or prosecute any alcohol or drug abuse patient.[facility] HospitalIn the event this information is protected by the Federal Confidentiality of Alcohol and Drug Abuse Patient Records regulations: The Federal rules restrict any use of the information to criminally investigate or prosecute any alcohol or drug abuse patient.[facility] HospitalIn the event this information is protected by the Federal Confidentiality of Alcohol and Drug Abuse Patient Records regulations: The Federal rules restrict any use of the information to criminally investigate or prosecute any alcohol or drug abuse patient.[facility] HospitalIn the event this information is protected by the Federal Confidentiality of Alcohol and Drug Abuse Patient Records regulations: The Federal rules restrict any use of the information to criminally investigate or prosecute any alcohol or drug abuse patient.[facility] HospitalIn the event this information is protected by the Federal Confidentiality of Alcohol and Drug Abuse Patient Records regulations: The Federal rules restrict any use of the information to criminally investigate or prosecute any alcohol or drug abuse patient.[facility] Reason for Visit (unrecogniz ed section and content) Reason Comments Established Patient Specialty Diagnoses / Procedures Referred By Contac t Referred To Contact Diagnoses High grade ovarian cancer (HCC) Ovarian cancer, bilateral (HCC) Procedures INJ., ZIRABEV, 10 MG Nile Hall DO [address] [place] [id number] Phone: tel: fax: Nile Hall DO [address] [place] [id number] Phone: tel: fax: Referral ID Status Reason Start Date Expiration Date V isits Requested Visits Authorized [id number] Authorized 12/10/2024 12/10/2025 99 99 Reason Onset [...] & PELVIS W/CONTRAST Romel Michelle MD [address] [place] [address] [place] [address] Referral ID Status Reason Start Date Expiration Date V isits Requested Visits Authorized [id number] Closed Auto-Generate d Referral 03/09/2024 10/05/2024 1 1 Reason Comments New Patient Reason Comments Consult Specialty Diagnoses / Procedures Referred By Contac t Referred To Contact Diagnoses Pelvic mass Procedures CONSULT TO GYNECOLOGIC/ONCOLOGY OFFICE/OUTPATIENT [facility] MDM 60 MINUTES Romel Michelle MD [address] [place] [address] Referral ID Status Reason Start Date Expiration Date V isits Requested Visits Authorized [id number] Closed PCP Requested Referral Auto-Generated Referral 03/11/2024 03/10/2025 1 1 Reason Comments Surgical Brace Maker - Other Reason Onset Date Comments Pre-Op Teaching 03/16/2024 Specialty Diagnoses / Procedures Referred By Contac t Referred To Contact CT IMAGING Diagnoses Pelvic mass Procedures CT CHEST WO IVCON DIAGNOSTIC COMPUTED TOMOGRAPHY THORAX W/[place] [address] [place] [address] [address] [facility] [place] [address] Referral ID Status Reason Start Date Expiration Date V isits Requested Visits Authorized [id number] Closed Auto-Generate d Referral 03/16/2024 10/05/2024 1 1 Reason Comments Results Reason Comments Home Care MD to follow for [facility] . Reason Onset Date Comments Transition Of [...] Contact HOME CARE SERVICES IND Home Care [address] [place] [id number] Referral ID Status Reason Start Date Expiration Date Visits Re quested Visits Authorized [id number] 1 1 Reason Comments Post Op Reason Comments Consult Specialty Diagnoses / Procedures [facility] To Contact Diagnoses High grade ovarian cancer (HCC) Procedures CONSULT TO HEMATOLOGY/ONCOLOGY OFFICE/OUTPATIENT [facility] 60 [place] [address] [place] [address] Nile Hall, DO [address] [place] [address] Referral ID Status Reason Start Date Expiration Date V isits Requested Visits Authorized [id number] Closed PCP Requested Referral 04/19/2024 04/19/2025 1 1 Reason Onset Date Comments ACM ARIC RN 04/22/2024 ED Utilizatio n review per payer request Reason Comments First Time Treatment Education Carboplat in/Taxol Reason Comments Benefits Investigation Reason Comments Nutrition Assessment Reason Comments Chemotherapy Treatment Specialty Diagnoses / Procedures [facility] Ref[facility] To Contact Diagnoses High grade ovarian cancer (HCC) Procedures CARBOPLATIN INJECTION PALONOSETRON HCL FOSAPREPITANT INJECTION PACLITAXEL INJECTION Nile Hall, DO [address] [place] [address] [facility] [address] [place] [address] Referral ID Status Reason Start Date Expiration Date V isits Requested Visits Authorized [id number] Authorized 04/23/2024 10/05/2024 99 99 Reason Comments Surgical Brace Maker - Other C1D1 Post Treat ment Call (Carboplatin/Paclitaxel) Reason Comments Established Patient Reason Comments Nutrition Counseling Reason Comments Erroneous encounter-disregard Reason Comments Ovarian Cancer Specialty Diagnoses / Procedures [facility] Referred To Contact Diagnoses Abdominal bloating Pelvic mass High grade ovarian cancer (HCC) Procedures CONSULT TO MEDICAL GENETICS - CANCER MEDICAL GENETICS COUNSELING EACH 30 MINUTES Carey Elias APRN.CLAMP OPERATOR [address] [place] [address] [facility] [address] [place] [address] Referral ID Status Reason Start Date Expiration Date V isits Requested Visits Authorized [id number] Closed PCP Requested Referral Auto-Generated Referral 04/19/2024 04/19/2025 1 1 Reason Comments Follow Up Reason Comments Nutrition Telephone Reason Comments Radiology CT Specialty Diagnoses / Procedures Referred By Contac t Referred To Contact CT IMAGING Diagnoses High grade ovarian cancer (HCC) Procedures CT ABD/PEL W IVCON CT ABD & PELVIS W/CONTRAST Nile Hall, DO [address] [facility] [place] [address] [place] [address] Referral ID Status Reason Start Date Expiration Date V isits Requested Visits Authorized [id number] Closed Auto-Generate d Referral 05/18/2024 06/17/2025 1 1 Specialty Diagnoses / Procedures Referred By Contac t Referred To Contact CT IMAGING Diagnoses High grade ovarian cancer (HCC) Procedures CT ABD/PEL W IVCON CT ABD & PELVIS W/CONTRAST Nile Hall, DO [address] [facility] [place] [address] [place] [address] Reason Comments Home Care Need to extend [...] THORAX W/CONTRAST Nile Hall, DO [address] [facility] [place] [address] [place] [address] Referral ID Status Reason Start Date Expiration Date V isits Requested Visits Authorized [id number] Closed Auto-Generate d Referral 08/11/2024 09/10/2025 1 1 Specialty Diagnoses / Procedures Referred By Contac t Referred To Contact CT IMAGING Diagnoses High grade ovarian cancer (HCC) Procedures CT CHEST W IVCON DIAGNOSTIC COMPUTED TOMOGRAPHY THORAX W/CONTRAST Nile Hall, DO [address] [place] [address] Ct Imaging [facility] Reason Comments Appointment Reason Comments Appointment 1st [...] Comments Patient Question Patient Update Reason Comments Surgical Brace Maker - Other Patient Update Reason Comments Patient Update Reason Comments Surgical Brace Maker - Other Hospital Discha rge Reason Comments Appointment Reason Comments Appointment Patient Update Reason Comments Medication Request Specialty Diagnoses / Procedures Referred By [facility] Referred To Contact Diagnoses High grade ovarian cancer (HCC) Procedures CARBOPLATIN INJECTION PALONOSETRON HCL FOSAPREPITANT INJECTION PACLITAXEL INJECTION Nile Hall, DO [address] [place] [address] [facility] [address] [place] [address] Referral ID Status Reason Start Date Expiration Date V isits Requested Visits Authorized [id number] Authorized 04/23/2024 10/05/2025 99 99 Reason Comments Established Patient Reason Comments AVS 12/02 Specialty Diagnoses / Procedures Referred By [facility] Referred To Contact Diagnoses High grade ovarian cancer (HCC) Procedures CARBOPLATIN INJECTION PALONOSETRON HCL FOSAPREPITANT INJECTION PACLITAXEL INJECTION Nile Hall, DO [address] [place] [address] Phone: tel: fax: Hematology/Oncology [address] [place] [address] Phone: tel: fax: Specialty Diagnoses / Procedures Referred By [facility] t Referred To Contact CT IMAGING Diagnoses High grade ovarian cancer (HCC) Procedures CT ABD/PEL W IVCON CT ABD & PELVIS W/CONTRAST Nile Hall, DO [address] [place] [address] Phone: tel: fax: [place] [address] Referral ID Status Reason Start Date Expiration Date V isits Requested Visits Authorized [id number] Closed Auto-Generate d Referral 12/02/2024 01/01/2026 1 1 Reason Comments First Time Treatment Education Avastin Reason Comments Surgical Brace Maker - Other C1D1 Post Treat ment Call (Avastin) Reason Onset Date Comments Population Health Navigation Outreach 01/18/2025 Mansi Curry PCSA Reason Onset Date Comments SPP Oral Oncology/hematology - Treatment Referra l 03/03/2025 Zejula 300mg Insurance Authorization 03/03/2025 Pending PA Reason Comments Non-Chemotherapy Treatment Specialty Diagnoses / Procedures Referred By Mirta t Referred To Contact Diagnoses Iron malabsorption (HCC) 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 loss Procedures IRON SUCROSE INJECTION PER 1 MG Nile Hall, DO [address] [facility] [address] Phone: tel: fax: Nile Hall, DO [address] [place] [address] Phone: tel: fax: Referral ID Status Reason Start Date Expiration Date V isits Requested Visits Authorized [id number] Authorized 03/04/2025 10/05/2025 0 99 Reason Comments Surgical Brace Maker - Other Oral Anti-Cance r Agents Education (Zejula) Reason Onset Date Comments Refill Request 03/14/2025 Reason Comments Care Coordination Start Zejula Reason Comments Results platelet 23 Reason Onset Date Comments Population Health Navigation Outreach 04/28/2025 Mansi Curry Reason Onset Date Comments SPP Oral Oncology/hematology - Medication Refill 05/04/2025 Zejula Reason Onset Date Comments Population Health Navigation Outreach 05/30/2025 Aeisabell Haley [place] Reason Onset Date Comments SPP Oral Oncology/hematology - Medication Refill 06/03/2025 Zejula Reason Comments Appointment Reason Comments Transfusion Reason Comments Imm/Inj Referral ID Status Reason Start Date Expiration Date V isits Requested Visits Authorized [id number] Closed Auto-Generate d Referral 06/07/2025 07/07/2026 1 1 Care Teams (unrecognized sec tion and content) Window Trimmer Relationship Specialty Start Date End Date Romel Michelle MD [address] [facility] [place] [address] PCP - General Internal Medicine 05/23/11 Window Trimmer Relationship Specialty Start Date End Date Romel Michelle MD [address] [facility] [place] [address] PCP - General Internal Medicine 05/23/11 Window Trimmer Relationship Specialty Start Date End Date Romel Michelle MD [address] [facility] [place] [address] PCP - General Internal Medicine 05/23/11 Window Trimmer Relationship Specialty Start Date End Date Romel Michelle MD [address] [facility] [place] [address] PCP - General Internal Medicine 05/23/11 Window Trimmer Relationship Specialty Start Date End Date Romel Michelle MD [address] [facility] [place] [address] PCP - General Internal Medicine 05/23/11 Window Trimmer Relationship Specialty Start Date End Date Romel Michelle MD [address] [facility] [place] [address] PCP - General Internal Medicine 05/23/11 Window Trimmer Relationship Specialty Start Date End Date Romel Michelle MD [address] [facility] [place] [address] PCP - General Internal Medicine 05/23/11 Window Trimmer Relationship Specialty Start Date End Date Romel Michelle MD [address] [facility] [place] [address] PCP - General Internal Medicine 05/23/11 Window Trimmer Relationship Specialty Start Date End Date Romel Michelle MD [address] [place] [address] PCP - General Internal Medicine 05/23/11 Window Trimmer Relationship Specialty Start Date End Date Romel Michelle MD [address] [place] [address] PCP - General Internal Medicine 05/23/11 Window Trimmer Relationship Specialty Start Date End Date Romel Michelle MD [address] [place] [address] PCP - General Internal Medicine 05/23/11 Window Trimmer Relationship Specialty Start Date End Date Romel Michelle MD [address] [place] [address] PCP - General Internal Medicine 05/23/11 Window Trimmer Relationship Specialty Start Date End Date Romel Michelle MD [address] [place] [address] PCP - General Internal Medicine 05/23/11 Window Trimmer Relationship Specialty Start Date End Date Romel Michelle MD [address] [place] [address] PCP - General Internal Medicine 05/23/11 Window Trimmer Relationship Specialty Start Date End Date Romel Michelle MD [address] [place] [address] PCP - General Internal Medicine 05/23/11 Window Trimmer Relationship Specialty Start Date End Date Romel Michelle MD [address] [place] [address] PCP - General Internal Medicine 05/23/11 Window Trimmer Relationship Specialty Start Date End Date Romel Michelle MD [address] [place] [address] PCP - General Internal Medicine 05/23/11 Window Trimmer Relationship Specialty Start Date End Date Romel Michelle MD [address] [place] [address] PCP - General Internal Medicine 05/23/11 Window Trimmer Relationship Specialty Start Date End Date Romel Michelle MD [address] [place] [address] PCP - General Internal Medicine 05/23/11 Window Trimmer Relationship Specialty Start Date End Date Romel Michelle MD [address] [place] [address] PCP - General Internal Medicine 05/23/11 Window Trimmer Relationship Specialty Start Date End Date Romel Michelle MD [address] [place] [address] PCP - General Internal Medicine 05/23/11 Window Trimmer Relationship Specialty Start Date End Date Romel Michelle MD [address] [place] [address] PCP - General Internal Medicine 05/23/11 Dayana Christensen PA-C [address] [place] [address] Referring Gynecology 03/24/24 Window Trimmer Relationship Specialty Start Date End Date Romel Michelle MD [address] [place] [address] PCP - General Internal Medicine 05/23/11 Dayana Christensen PA-C [address] [place] [address] Referring Gynecology 03/24/24 Window Trimmer Relationship Specialty Start Date End Date Romel Michelle MD [address] [place] [address] PCP - General Internal Medicine 05/23/11 Dayana Christensen PA-C [address] [place] [address] Referring Gynecology 03/24/24 ProviderBria MD Maintenance Repairman 03/24/24 04/23/24 Window Trimmer Relationship Specialty Start Date End Date Romel Michelle MD [address] [place] [address] PCP - General Internal Medicine 05/23/11 Dayana Christensen PA-C [address] [place] [address] Referring Gynecology 03/24/24 Bria Kelly MD Maintenance Repairman 03/24/24 04/23/24 Window Trimmer Relationship Specialty Start Date End Date Romel Michelle MD [address] [place] [address] PCP - General Internal Medicine 05/23/11 Dayana Christensen PA-C [address] [place] [address] Referring Gynecology 03/24/24 Bria Kelly MD Maintenance Repairman 03/24/24 04/23/24 Window Trimmer Relationship Specialty Start Date End Date Romel Michelle MD [address] [place] [address] PCP - General Internal Medicine 05/23/11 Dayana Christensen PA-C [address] [place] [address] Referring Gynecology 03/24/24 Bria Kelly MD Maintenance Repairman 03/24/24 04/23/24 Window Trimmer Relationship Specialty Start Date End Date Romel Michelle MD [address] [place] [address] PCP - General Internal Medicine 05/23/11 Dayana Christensen PA-C [address] [place] [address] Referring Gynecology 03/24/24 Bria Kelly MD Maintenance Repairman 03/24/24 04/23/24 Window Trimmer Relationship Specialty Start Date End Date Romel Michelle MD [address] [place] [address] PCP - General Internal Medicine 05/23/11 Dayana Christensen PA-C [address] [place] [address] Referring Gynecology 03/24/24 Bria Kelly MD Maintenance Repairman 03/24/24 04/23/24 Window Trimmer Relationship Specialty Start Date End Date Romel Michelle MD [address] [place] [address] PCP - General Internal Medicine 05/23/11 Dayana Christensen PA-C [address] [place] [address] Referring Gynecology 03/24/24 ProviderBria MD Maintenance Repairman 03/24/24 04/23/24 Window Trimmer Relationship Specialty Start Date End Date Romel Michelle MD [address] [place] [address] PCP - General Internal Medicine 05/23/11 Fredis Buckner MD [address] [place] [address] Home Care Provider Gynecology 04/12/24 Window Trimmer Relationship Specialty Start Date End Date Romel Michelle MD [address] [place] [address] PCP - General Internal Medicine 05/23/11 Fredis Buckner MD [address] [place] [address] Home Care Provider Gynecology 04/12/24 Fredis Buckner MD [address] [place] [address] Referring Gynecology 04/13/24 ProviderBria MD Maintenance Repairman 04/13/24 05/12/24 Window Trimmer Relationship Specialty Start Date End Date Romel Michelle MD [address] [place], [place] [address] PCP - General Internal Medicine 05/23/11 Fredis Buckner MD [address] [place] [address] Home Care Provider Gynecology 04/12/24 Fredis Buckner MD [address] [place] [address] Referring Gynecology 04/13/24 ProviderBria MD Maintenance Repairman 04/13/24 05/12/24 Window Trimmer Relationship Specialty Start Date End Date Romel Michelle MD [address] [facility] [address] PCP - General Internal Medicine 05/23/11 Fredis Buckner MD [address] [place] [address] Home Care Provider Gynecology 04/12/24 Fredis Buckner MD [address] [place] [address] Referring Gynecology 04/13/24 ProviderBria MD Maintenance Repairman 04/13/24 05/12/24 Window Trimmer Relationship Specialty Start Date End Date Romel Michelle MD [address] [place] [address] PCP - General Internal Medicine 05/23/11 Fredis Buckner MD [address] [place] [address] Home Care Provider Gynecology 04/12/24 Fredis Buckner MD [address] [place] [address] Referring Gynecology 04/13/24 ProviderBria MD Maintenance Repairman 04/13/24 05/12/24 Window Trimmer Relationship Specialty Start Date End Date Romel Michelle MD [address] [place] [address] PCP - General Internal Medicine 05/23/11 Fredis Buckner MD [address] [place] [address] Home Care Provider Gynecology 04/12/24 Fredis Buckner MD [address] [place] [address] Referring Gynecology 04/13/24 ProviderBria MD Maintenance Repairman 04/13/24 05/12/24 Window Trimmer Relationship Specialty Start Date End Date Romel Michelle MD [address] [place] [address] PCP - General Internal Medicine 05/23/11 Fredis Buckner MD [address] [place] [address] Home Care Provider Gynecology 04/12/24 Fredis Buckner MD [address] [place] [address] Referring Gynecology 04/13/24 ProviderBria MD Maintenance Repairman 04/13/24 05/12/24 Window Trimmer Relationship Specialty Start Date End Date Romel Michelle MD [address] [place] [address] PCP - General Internal Medicine 05/23/11 Fredis Buckner MD [address] [place] [address] Home Care Provider Gynecology 04/12/24 Fredis Buckner MD [address] [place] [address] Referring Gynecology 04/13/24 ProviderBria MD Maintenance Repairman 04/13/24 05/12/24 Window Trimmer Relationship Specialty Start Date End Date Romel Michelle MD [address] [place] [address] PCP - General Internal Medicine 05/23/11 Fredis Buckner MD [address] [place] [address] Home Care Provider Gynecology 04/12/24 Fredis Buckner MD [address] [place], [place] [id number] Referring Gynecology 04/13/24 Bria Kelly MD Maintenance Repairman 04/13/24 05/12/24 Window Trimmer Relationship Specialty Start Date End Date Romel Michelle MD [address] [place] [address] PCP - General Internal Medicine 05/23/11 Fredis Buckner MD [address] [place], [place] [address]2495 Home Care Provider Gynecology 04/12/24 Fredis Buckner MD [address] [place] [address] Referring Gynecology 04/13/24 ProviderBria MD Maintenance Repairman 04/13/24 05/12/24 Window Trimmer Relationship Specialty Start Date End Date Romel Michelle MD [address] [place] [address] PCP - General Internal Medicine 05/23/11 Fredis Buckner MD [address] [place] [address] Home Care Provider Gynecology 04/12/24 Fredis Buckner MD [address] [place] [address] Referring Gynecology 04/13/24 ProviderBria MD Maintenance Repairman 04/13/24 05/12/24 Nile Hall DO [address] [place] [address] Hematology/Oncology 04/23/24 Yulia Holm RN Specialty Surgical Brace Maker Oncology 04/23/24 Window Trimmer Relationship Specialty Start Date End Date Romel Michelle MD [address] [place] [address] PCP - General Internal Medicine 05/23/11 Fredis Buckner MD [address] [place] [address] Home Care Provider Gynecology 04/12/24 Fredis Buckner MD [address] [place] [address] Referring Gynecology 04/13/24 ProviderBria MD Maintenance Repairman 04/13/24 05/12/24 Nile Hall DO [address] [place] [address] Hematology/Oncology 04/23/24 Yulia Holm RN Specialty Surgical Brace Maker Oncology 04/23/24 Window Trimmer Relationship Specialty Start Date End Date Romel Michelle MD [address] [place] [address] PCP - General Internal Medicine 05/23/11 Fredis Buckner MD [address] [place] [address] Home Care Provider Gynecology 04/12/24 Fredis Buckner MD [address] [place] [address] Referring Gynecology 04/13/24 ProviderBria MD Maintenance Repairman 04/13/24 05/12/24 Nile Hall DO [address] [place] [address] Hematology/Oncology 04/23/24 Yulia Holm RN Specialty Surgical Brace Maker Oncology 04/23/24 Window Trimmer Relationship Specialty Start Date End Date Romel Michelle MD [address] [place] [address] PCP - General Internal Medicine 05/23/11 Fredis Buckner MD [address] [place] [address] Home Care Provider Gynecology 04/12/24 Fredis Buckner MD [address] [place] [address] Referring Gynecology 04/13/24 ProviderBria MD Maintenance Repairman 04/13/24 05/12/24 Nile Hall DO [address] [place] [address] Hematology/Oncology 04/23/24 Yulia Holm RN Specialty Surgical Brace Maker Oncology 04/23/24 Window Trimmer Relationship Specialty Start Date End Date Romel Michelle MD [address] [place], [place] 855721 PCP - General Internal Medicine 05/23/11 Fredis Buckner MD [address] [place] [address] Home Care Provider Gynecology 04/12/24 Fredis Buckner MD [address] [place] [address] Referring Gynecology 04/13/24 ProviderBria MD Maintenance Repairman 04/13/24 05/12/24 Nile Hall DO [address] [place] [address] Hematology/Oncology 04/23/24 Yulia Holm RN Specialty Surgical Brace Maker Oncology 04/23/24 Window Trimmer Relationship Specialty Start Date End Date Romel Michelle MD [address] [place], [place] 521551 PCP - General Internal Medicine 05/23/11 Fredis Buckner MD [address] [place] [address] Home Care Provider Gynecology 04/12/24 Fredis Buckner MD [address] [place] [address] Referring Gynecology 04/13/24 ProviderBria MD Maintenance Repairman 04/13/24 05/12/24 Nile Hall DO [address] [place] [address] Hematology/Oncology 04/23/24 Yulia Holm RN Specialty Surgical Brace Maker Oncology 04/23/24 Window Trimmer Relationship Specialty Start Date End Date Romel Michelle MD [address] [place], [place] 054301 PCP - General Internal Medicine 05/23/11 Fredis Buckner MD [address] [place] [address] Home Care Provider Gynecology 04/12/24 Fredis Buckner MD [address] [place] [address] Referring Gynecology 04/13/24 ProviderBria MD Maintenance Repairman 04/13/24 05/12/24 Nile Hall DO [address] [place] [address] Hematology/Oncology 04/23/24 Yulia Holm RN Specialty Surgical Brace Maker Oncology 04/23/24 Window Trimmer Relationship Specialty Start Date End Date Romle Michelle MD [address] [place], [place] 097711 PCP - General Internal Medicine 05/23/11 Fredis Buckner MD [address] [facility] [place] [address] Home Care Provider Gynecology 04/12/24 Fredis Buckner MD [address] [place] [address] Referring Gynecology 04/13/24 Provider, MD Bria Maintenance Repairman 04/13/24 05/12/24 Nile Hall DO [address] [place] [address] Hematology/Oncology 04/23/24 Yulia Holm RN Specialty Surgical Brace Maker Oncology 04/23/24 Window Trimmer Relationship Specialty Start Date End Date Romel Michelle MD [address] [place], [place] 056671 PCP - General Internal Medicine 05/23/11 Fredis Buckner MD [address] [place] [address] Home Care Provider Gynecology 04/12/24 Fredis Buckner MD [address] [place] [address] Referring Gynecology 04/13/24 Nile Hall DO [address] [place] [address] Hematology/Oncology 04/23/24 Yulia Holm RN Specialty Surgical Brace Maker Oncology 04/23/24 Window Trimmer Relationship Specialty Start Date End Date Romel Michelle MD [address] [place] [address] PCP - General Internal Medicine 05/23/11 Fredis Buckner MD [address] [place] [address] Home Care Provider Gynecology 04/12/24 Fredis Buckner MD [address] [place], [place] 9314095 Referring Gynecology 04/13/24 ProviderBria MD Maintenance Repairman 04/13/24 05/12/24 Nile Hall DO [address] [place] [address] Hematology/Oncology 04/23/24 Yulia Holm RN Specialty Surgical Brace Maker Oncology 04/23/24 Window Trimmer Relationship Specialty Start Date End Date Romel Michelle MD [address] [place] [address] PCP - General Internal Medicine 05/23/11 Fredis Buckner MD [address] [place] [address] Home Care Provider Gynecology 04/12/24 Fredis Buckner MD [address] [place], [place] 2954295 Referring Gynecology 04/13/24 Nile Hall DO [address] [place] [address] Hematology/Oncology 04/23/24 Yulia Holm RN Specialty Surgical Brace Maker Oncology 04/23/24 Window Trimmer Relationship Specialty Start Date End Date Romel Michelle MD [address] [place] [address] PCP - General Internal Medicine 05/23/11 Fredis Buckner MD [address] [place] [address] Home Care Provider Gynecology 04/12/24 Fredis Buckner MD [address] [place] [address] Referring Gynecology 04/13/24 Nile Hall DO [address] [place] [address] Hematology/Oncology 04/23/24 Yulia Holm RN Specialty Surgical Brace Maker Oncology 04/23/24 Window Trimmer Relationship Specialty Start Date End Date Romel Michelle MD [address] [place] [address] PCP - General Internal Medicine 05/23/11 Fredis Buckner MD [address] [place] [address] Home Care Provider Gynecology 04/12/24 Fredis Buckner MD [address] [place], [place] 1847095 Referring Gynecology 04/13/24 Nile Hall DO [address] [place], [place] [id number] Hematology/Oncology 04/23/24 Yulia Holm RN Specialty Surgical Brace Maker Oncology 04/23/24 Window Trimmer Relationship Specialty Start Date End Date Romel Michelle MD [address] [place] [address] PCP - General Internal Medicine 05/23/11 Fredis Buckner MD [address] [place] [address] Home Care Provider Gynecology 04/12/24 Fredis Buckner MD [address] [place], [place] 3553095 Referring Gynecology 04/13/24 Nile Hall DO [address] [place], [place] 9[address] Hematology/Oncology 04/23/24 Yulia Holm RN Specialty Surgical Brace Maker Oncology 04/23/24 Window Trimmer Relationship Specialty Start Date End Date Romel Michelle MD [address] [place] [address] PCP - General Internal Medicine 05/23/11 Fredis Buckner MD [address] [place] [address] Home Care Provider Gynecology 04/12/24 Fredis Buckner MD [address] [place] [address] Referring Gynecology 04/13/24 Nile Hall DO [address] [place] [address] Hematology/Oncology 04/23/24 Yulia Holm RN Specialty Surgical Brace Maker Oncology 04/23/24 Window Trimmer Relationship Specialty Start Date End Date Romel Michelle MD [address] [place] [address] PCP - General Internal Medicine 05/23/11 Fredis Buckner MD [address] [place] [address] Home Care Provider Gynecology 04/12/24 Fredis Buckner MD [address] [place] [address] Referring Gynecology 04/13/24 Nile Hall DO [address] [place] [address] Hematology/Oncology 04/23/24 Yulia Holm RN Specialty Surgical Brace Maker Oncology 04/23/24 Window Trimmer Relationship Specialty Start Date End Date Romel Michelle MD [address] [facility] [address] PCP - General Internal Medicine 05/23/11 Fredis Buckner MD [address] [place] [address] Home Care Provider Gynecology 04/12/24 Fredis Buckner MD [address] [place] [address] Referring Gynecology 04/13/24 Nile Hall DO [address] [place] [address] Hematology/Oncology 04/23/24 Yulia Holm RN Specialty Surgical Brace Maker Oncology 04/23/24 Window Trimmer Relationship Specialty Start Date End Date Romel Michelle MD [address] [place] [address] PCP - General Internal Medicine 05/23/11 Fredis Buckner MD [address] [place] [address] Home Care Provider Gynecology 04/12/24 Fredis Buckner MD [address] [place] [address] Referring Gynecology 04/13/24 Nile Hall DO [address] [place] [address] Hematology/Oncology 04/23/24 Yulia Holm RN Specialty Surgical Brace Maker Oncology 04/23/24 Window Trimmer Relationship Specialty Start Date End Date Romel Michelle MD [address] [place] [address] PCP - General Internal Medicine 05/23/11 Fredis Buckner MD [address] [place] [address] Home Care Provider Gynecology 04/12/24 Fredis Buckner MD [address] [place] [address] Referring Gynecology 04/13/24 Nile Hall DO [address] [place] [address] Hematology/Oncology 04/23/24 Yulia Holm RN Specialty Surgical Brace Maker Oncology 04/23/24 Window Trimmer Relationship Specialty Start Date End Date Romel Michelle MD [address] [place] [address] PCP - General Internal Medicine 05/23/11 Fredis Buckner MD [address] [facility] [place] [address] Home Care Provider Gynecology 04/12/24 Fredis Buckner MD [address] [facility] [place] [address] Referring Gynecology 04/13/24 Nile Hall DO [address] [place] [address] Hematology/Oncology 04/23/24 Yulia Holm RN Specialty Surgical Brace Maker Oncology 04/23/24 Jason Oswald RN [address] [place], [place] [id number] Oral And Maxillofacial Surgery 05/29/24 Window Trimmer Relationship Specialty Start Date End Date Romel Michelle MD [address] [place] [address] PCP - General Internal Medicine 05/23/11 Fredis Buckner MD [address] [place] [address] Home Care Provider Gynecology 04/12/24 Fredis Buckner MD [address] [place] [address] Referring Gynecology 04/13/24 Nile Hall DO [address] [place] [address] Hematology/Oncology 04/23/24 Yulia Holm RN Specialty Surgical Brace Maker Oncology 04/23/24 Jason Oswald, CECILIA [address] [place], [place] [id number] Oral And Maxillofacial Surgery 05/29/24 Window Trimmer Relationship Specialty Start Date End Date Romel Michelle MD [address] [place] [address] PCP - General Internal Medicine 05/23/11 Fredis Buckner MD [address] [place] [address] Home Care Provider Gynecology 04/12/24 Fredis Buckner MD [address] [place] [address] Referring Gynecology 04/13/24 Nile Hall DO [address] [place] [address] Hematology/Oncology 04/23/24 Yulia Holm RN Specialty Surgical Brace Maker Oncology 04/23/24 Jason Oswald, RN [address] [place], [place] [id number] Oral And Maxillofacial Surgery 05/29/24 Window Trimmer Relationship Specialty Start Date End Date Romel Michelle MD [address] [place], [place] 297681 PCP - General Internal Medicine 05/23/11 Fredis Buckner MD [address] [place] [address] Home Care Provider Gynecology 04/12/24 Fredis Buckner MD [address] [place] [address] Referring Gynecology 04/13/24 Nile Hall DO [address] [place] [address] Hematology/Oncology 04/23/24 Yulia Holm RN Specialty Surgical Brace Maker Oncology 04/23/24 Window Trimmer Relationship Specialty Start Date End Date Romel Michelle MD [address] [place] [address] PCP - General Internal Medicine 05/23/11 Fredis Buckner MD [address] [place] [address] Home Care Provider Gynecology 04/12/24 Fredis Buckner MD [address] [place] [address] Referring Gynecology 04/13/24 Nile Hall DO [address] [place] [address] Hematology/Oncology 04/23/24 Yulia Holm RN Specialty Surgical Brace Maker Oncology 04/23/24 Window Trimmer Relationship Specialty Start Date End Date Romel Michelle MD [address] [place] [address] PCP - General Internal Medicine 05/23/11 Fredis Buckner MD [address] [place] [address] Home Care Provider Gynecology 04/12/24 Fredis Buckner MD [address] [place] [address] Referring Gynecology 04/13/24 Nile Hall DO [address] [facility] [place] [address] Hematology/Oncology 04/23/24 Yulia Holm RN Specialty Surgical Brace Maker Oncology 04/23/24 Window Trimmer Relationship Specialty Start Date End Date Romel Michelle MD [address] [place] [address] PCP - General Internal Medicine 05/23/11 Fredis Buckner MD [address] [place] [address] Home Care Provider Gynecology 04/12/24 Fredis Buckner MD [address] [place] [address] Referring Gynecology 04/13/24 Nile Hall DO [address] [place] [address] Hematology/Oncology 04/23/24 Yulia Holm RN Specialty Surgical Brace Maker Oncology 04/23/24 Window Trimmer Relationship Specialty Start Date End Date Romel Michelle MD [address] [place] [address] PCP - General Internal Medicine 05/23/11 Fredis Buckner MD [address] [place] [address] Home Care Provider Gynecology 04/12/24 Fredis Buckner MD [address] [place] [address] Referring Gynecology 04/13/24 Nile Hall DO [address] [place] [address] Hematology/Oncology 04/23/24 Yulia Holm RN Specialty Surgical Brace Maker Oncology 04/23/24 Window Trimmer Relationship Specialty Start Date End Date Romel Michelle MD [address] [place] [address] PCP - General Internal Medicine 05/23/11 Fredis Buckner MD [address] [place] [address] Home Care Provider Gynecology 04/12/24 Fredis Buckner MD [address] [place] [address] Referring Gynecology 04/13/24 Nile Hall DO [address] [place] [address] Hematology/Oncology 04/23/24 Yulia Holm RN Specialty Surgical Brace Maker Oncology 04/23/24 Window Trimmer Relationship Specialty Start Date End Date Romel Michelle MD [address] [place] [address] PCP - General Internal Medicine 05/23/11 Fredis Buckner MD [address] [place] [address] Home Care Provider Gynecology 04/12/24 Fredis Buckner MD [address] [place] [address] Referring Gynecology 04/13/24 Nile Hall DO [address] [place] [address] Hematology/Oncology 04/23/24 Yulia Holm RN Specialty Surgical Brace Maker Oncology 04/23/24 Window Trimmer Relationship Specialty Start Date End Date Romel Michelle MD [address] [place] [address] PCP - General Internal Medicine 05/23/11 Fredis Buckner MD [address] [place] [address] Home Care Provider Gynecology 04/12/24 Fredis Buckner MD [address] [place] [address] Referring Gynecology 04/13/24 Nile Hall DO [address] [place] [address] Hematology/Oncology 04/23/24 Yulia Holm RN Specialty Surgical Brace Maker Oncology 04/23/24 Jason Oswald, CECILIA [address] [place], [place] [id number] Oral And Maxillofacial Surgery 05/29/24 06/10/24 Window Trimmer Relationship Specialty Start Date End Date Romel Michelle MD [address] [place] [address] PCP - General Internal Medicine 05/23/11 Fredis Buckner MD [address] [place] [address] Home Care Provider Gynecology 04/12/24 Fredis Buckner MD [address] [place] [address] Referring Gynecology 04/13/24 Nile Hall DO [address] [place] [address] Hematology/Oncology 04/23/24 Yulia Holm RN Specialty Surgical Brace Maker Oncology 04/23/24 Window Trimmer Relationship Specialty Start Date End Date Romel Michelle MD [address] [place] [address] PCP - General Internal Medicine 05/23/11 Fredis Buckner MD [address] [place] [address] Home Care Provider Gynecology 04/12/24 Fredis Buckner MD [address] [place] [address] Referring Gynecology 04/13/24 Nile Hall DO [address] [place] [address] Hematology/Oncology 04/23/24 Yulia Holm RN Specialty Surgical Brace Maker Oncology 04/23/24 Window Trimmer Relationship Specialty Start Date End Date Romel Michelle MD [address] [place] [address] PCP - General Internal Medicine 05/23/11 Fredis Buckner MD [address] [place] [address] Home Care Provider Gynecology 04/12/24 Fredis Buckner MD [address] [place] [address] Referring Gynecology 04/13/24 Nile Hall DO [address] [place] [address] Hematology/Oncology 04/23/24 Yulia Holm RN Specialty Surgical Brace Maker Oncology 04/23/24 Window Trimmer Relationship Specialty Start Date End Date Romel Michelle MD [address] [place] [address] PCP - General Internal Medicine 05/23/11 Fredis Buckner MD [address] [place] [address] Home Care Provider Gynecology 04/12/24 Fredis Buckner MD [address] [place] [address] Referring Gynecology 04/13/24 Nile Hall DO [address] [place] [address] Hematology/Oncology 04/23/24 Yulia Holm RN Specialty Surgical Brace Maker Oncology 04/23/24 Window Trimmer Relationship Specialty Start Date End Date Romel Michelle MD [address] [place] [address] PCP - General Internal Medicine 05/23/11 Fredis Buckner MD [address] [place] [address] Home Care Provider Gynecology 04/12/24 Fredis Buckner MD [address] [place] [address] Referring Gynecology 04/13/24 Nile Hall DO [address] [place] [address] Hematology/Oncology 04/23/24 Yulia Holm RN Specialty Surgical Brace Maker Oncology 04/23/24 Window Trimmer Relationship Specialty Start Date End Date Romel Michelle MD [address] [place] [address] PCP - General Internal Medicine 05/23/11 Fredis Buckner MD [address] [place] [address] Home Care Provider Gynecology 04/12/24 Fredis Buckner MD [address] [place] [address] Referring Gynecology 04/13/24 Nile Hall DO [address] [place] [address] Hematology/Oncology 04/23/24 Yulia Holm RN Specialty Surgical Brace Maker Oncology 04/23/24 Window Trimmer Relationship Specialty Start Date End Date Romel Michelle MD [address] [place] [address] PCP - General Internal Medicine 05/23/11 Fredis Buckner MD [address] [place] [address] Home Care Provider Gynecology 04/12/24 Fredis Buckner MD [address] [place] [address] Referring Gynecology 04/13/24 Nile Hall DO [address] [place] [address] Hematology/Oncology 04/23/24 Yulia Holm RN Specialty Surgical Brace Maker Oncology 04/23/24 Window Trimmer Relationship Specialty Start Date End Date Romel Michelle MD [address] [place] [address] PCP - General Internal Medicine 05/23/11 Fredis Buckner MD [address] [place] [address] Home Care Provider Gynecology 04/12/24 Fredis Buckner MD [address] [place] [address] Referring Gynecology 04/13/24 Nile Hall DO [address] [place] [address] Hematology/Oncology 04/23/24 Yulia Holm RN Specialty Surgical Brace Maker Oncology 04/23/24 Window Trimmer Relationship Specialty Start Date End Date Romel Michelle MD [address] [place] [address] PCP - General Internal Medicine 05/23/11 Fredis Buckner MD [address] [place] [address] Home Care Provider Gynecology 04/12/24 Fredis Buckner MD [address] [place] [address] Referring Gynecology 04/13/24 Nile Hall DO [address] [place] [address] Hematology/Oncology 04/23/24 Yulia Holm RN Specialty Surgical Brace Maker Oncology 04/23/24 Window Trimmer Relationship Specialty Start Date End Date Romel Michelle MD [address] [place] [address] PCP - General Internal Medicine 05/23/11 Fredis Buckner MD [address] [place] [address] Home Care Provider Gynecology 04/12/24 Fredis Buckner MD [address] [place] [address] Referring Gynecology 04/13/24 Nile Hall DO [address] [place] [address] Hematology/Oncology 04/23/24 Yulia Holm RN Specialty Surgical Brace Maker Oncology 04/23/24 Window Trimmer Relationship Specialty Start Date End Date Romel Michelle MD [address] [place] [address] PCP - General Internal Medicine 05/23/11 Fredis Buckner MD [address] [place] [address] Home Care Provider Gynecology 04/12/24 Fredis Buckner MD [address] [place] [address] Referring Gynecology 04/13/24 Nile Hall DO [address] [place] [address] Hematology/Oncology 04/23/24 Yulia Holm RN Specialty Surgical Brace Maker Oncology 04/23/24 Window Trimmer Relationship Specialty Start Date End Date Romel Michelle MD [address] [place] [address] PCP - General Internal Medicine 05/23/11 Fredis Buckner MD [address] [place] [address] Home Care Provider Gynecology 04/12/24 Fredis Buckner MD [address] [place] [address] Referring Gynecology 04/13/24 Nile Hall DO [address] [place] [address] Hematology/Oncology 04/23/24 Yulia Holm RN Specialty Surgical Brace Maker Oncology 04/23/24 Window Trimmer Relationship Specialty Start Date End Date Romel Michelle MD [address] [place] [address] PCP - General Internal Medicine 05/23/11 Fredis Buckner MD [address] [place] [address] Home Care Provider Gynecology 04/12/24 Fredis Buckner MD [address] [place] [address] Referring Gynecology 04/13/24 Nile Hall DO [address] [place] [address] Hematology/Oncology 04/23/24 Yulia Holm RN Specialty Surgical Brace Maker Oncology 04/23/24 Window Trimmer Relationship Specialty Start Date End Date Romel Michelle MD [address] [place] [address] PCP - General Internal Medicine 05/23/11 Fredis Buckner MD [address] [place] [address] Home Care Provider Gynecology 04/12/24 Fredis Buckner MD [address] [place] [address] Referring Gynecology 04/13/24 Nile Hall DO [address] [place] [address] Hematology/Oncology 04/23/24 Yulia Holm RN Specialty Surgical Brace Maker Oncology 04/23/24 Window Trimmer Relationship Specialty Start Date End Date Romel Michelle MD [address] [place] [address] PCP - General Internal Medicine 05/23/11 Fredis Buckner MD [address] [place], [place] 7129795 Home Care Provider Gynecology 04/12/24 Fredis Buckner MD [address] [place], [place] 0747395 Referring Gynecology 04/13/24 Nile Hall DO [address] [place], [place] [id number] Hematology/Oncology 04/23/24 Yulia Holm RN Specialty Surgical Brace Maker Oncology 04/23/24 Rukhsana Paniagua, WATER COMMISSIONER.RECRUITMENT SPECIALIST [address] [place], [place] [id number] [facility] Internal Medicine 09/13/24 Cathy Coles APRN.CLAMP OPERATOR [address] [place], [place] [id number] [facility] Internal Medicine 09/13/24 Window Trimmer Relationship Specialty Start Date End Date Romel Michelle MD [address] [place], [place] [id number] PCP - General Internal Medicine 05/23/11 Fredis Buckner MD [address] [place], [place] 0134095 Home Care Provider Gynecology 04/12/24 Fredis Buckner MD [address] [place], [place] 2751695 Referring Gynecology 04/13/24 Nile Hall DO [address] [place] [address] Hematology/Oncology 04/23/24 Yulia Holm RN Specialty Surgical Brace Maker Oncology 04/23/24 Rukhsana Paniagua, WATER COMMISSIONER.RECRUITMENT SPECIALIST [address] [place] [address] Maintenance Repairman Internal Medicine 09/13/24 Cathy Coles WATER COMMISSIONER.CLAMP OPERATOR [address] [place] [address] Maintenance Repairman Internal Medicine 09/13/24 Window Trimmer Relationship Specialty Start Date End Date Roeml Michelle MD [address] [place] [address] PCP - General Internal Medicine 05/23/11 Fredis Buckner MD [address] [place], [place] 7541195 Home Care Provider Gynecology 04/12/24 Fredis Buckner MD [address] [place] [address] Referring Gynecology 04/13/24 Nile Hall DO [address] [place] [address] Hematology/Oncology 04/23/24 Yulia Holm RN Specialty Surgical Brace Maker Oncology 04/23/24 Rukhsana Paniagua, WATER COMMISSIONER.RECRUITMENT SPECIALIST [address] [place] [address] Maintenance Repairman Internal Medicine 09/13/24 Cathy Coles, WATER COMMISSIONER.CLAMP OPERATOR [address] [place] [id number] Maintenance Repairman Internal Medicine 09/13/24 Kendy Pittman, CECILIA [address] [place] [address] Primary Care Hand Candy Dipper 09/14/24 Window Trimmer Relationship Specialty Start Date End Date Romel Michelle MD [address] [place] [address] PCP - General Internal Medicine 05/23/11 Fredis Buckner MD [address] [place], [place] 3260695 Home Care Provider Gynecology 04/12/24 Fredis Buckner MD [address] [place], [place] 5890895 Referring Gynecology 04/13/24 Nile Hall DO [address] [place] [address] Hematology/Oncology 04/23/24 Yulia Holm RN Specialty Surgical Brace Maker Oncology 04/23/24 Rukhsana Paniagua, SABRINA.RECRUITMENT SPECIALIST [address] [place] [address] Maintenance Repairman Internal Medicine 09/13/24 Cathy Coles WATER COMMISSIONER.CLAMP OPERATOR [address] [place] [address] Maintenance Repairman Internal Medicine 09/13/24 Kendy Pittman, CECILIA [address] [place], [place] [id number] Primary Care Hand Candy Dipper 09/14/24 Window Trimmer Relationship Specialty Start Date End Date Romel Michelle MD [address] [place] [address] PCP - General Internal Medicine 05/23/11 Fredis Buckner MD [address] [place], [place] [id number] Home Care Provider Gynecology 04/12/24 Fredis Buckner MD [address] [place], [place] [id number] Referring Gynecology 04/13/24 Nile Hall DO [address] [facility] [place] [address] Hematology/Oncology 04/23/24 Yulia Holm RN Specialty Surgical Brace Maker Oncology 04/23/24 Rukhsana Paniagua APRN.RECRUITMENT SPECIALIST [address] [place], [place] 955441 Maintenance Repairman Internal Medicine 09/13/24 Cathy Coles APRN.CLAMP OPERATOR [address] [place], [place] 477781 Maintenance Repairman Internal Medicine 09/13/24 Kendy Pittman, CECILIA [address] [place], [place] [id number] Primary Care Hand Candy Dipper 09/14/24 Window Trimmer Relationship Specialty Start Date End Date Romel Michelle MD [address] [place] [address] PCP - General Internal Medicine 05/23/11 Fredis Buckner MD [address] [place] [address] Home Care Provider Gynecology 04/12/24 Fredis Buckner MD [address] [place] [address] Referring Gynecology 04/13/24 Nile Hall DO [address] [facility] [place] [address] Hematology/Oncology 04/23/24 Yulia Holm, CECILIA Specialty Surgical Brace Maker Oncology 04/23/24 Rukhsana Paniagua, SABRINA.RECRUITMENT SPECIALIST [address] [place] [address] Maintenance Repairman Internal Medicine 09/13/24 Cathy Coles APRN.CLAMP OPERATOR [address] [place] [address] Maintenance Repairman Internal Medicine 09/13/24 Kendy Pittman, CECILIA [address] [place], [place] [id number] Primary Care Hand Candy Dipper 09/14/24 Window Trimmer Relationship Specialty Start Date End Date Romel Michelle MD [address] [place] [address] PCP - General Internal Medicine 05/23/11 Fredis Buckner MD [address] [place], [place] [id number] Home Care Provider Gynecology 04/12/24 Fredis Buckner MD [address] [place] [address] Referring Gynecology 04/13/24 Nile Hall DO [address] [place], [place] 270471 Hematology/Oncology 04/23/24 Yulia Holm RN Specialty Surgical Brace Maker Oncology 04/23/24 Rukhsana Paniagua, WATER COMMISSIONER.RECRUITMENT SPECIALIST [address] [place] [address] Maintenance Repairman Internal Medicine 09/13/24 Cathy Coles, WATER COMMISSIONER.CLAMP OPERATOR [address] [place], [place] 251431 Maintenance Repairman Internal Medicine 09/13/24 Kendy Pittman, CECILIA [address] [place] [address] Primary Care Hand Candy Dipper 09/14/24 Window Trimmer Relationship Specialty Start Date End Date Romel Michelle MD [address] [place] [address] PCP - General Internal Medicine 05/23/11 Fredis Buckner MD [address] [place], [place] 6758995 Home Care Provider Gynecology 04/12/24 Fredis Buckner MD [address] [place], [place] [id number] Referring Gynecology 04/13/24 Nile Hall DO [address] [place] [address] Hematology/Oncology 04/23/24 Yulia Holm RN Specialty Surgical Brace Maker Oncology 04/23/24 Rukhsana Paniagua, SABRINA.RECRUITMENT SPECIALIST [address] [place] [address] Maintenance Repairman Internal Medicine 09/13/24 Cathy Coles WATER COMMISSIONER.CLAMP OPERATOR [address] [place] [address] Maintenance Repairman Internal Medicine 09/13/24 Kendy Pittman, CECILIA [address] [place], [place] [id number] Primary Care Hand Candy Dipper 09/14/24 Window Trimmer Relationship Specialty Start Date End Date Romel Michelle MD [address] [place] [address] PCP - General Internal Medicine 05/23/11 Fredis Bcukner MD [address] [place], [place] 2996295 Home Care Provider Gynecology 04/12/24 Fredis Buckner MD [address] [place], [place] 6456095 Referring Gynecology 04/13/24 Nile Hall DO [address] [facility] [place] [address] Hematology/Oncology 04/23/24 Yulia Holm RN Specialty Surgical Brace Maker Oncology 04/23/24 Rukhsana Paniagua APRN.RECRUITMENT SPECIALIST [address] [place], [place] 233791 Maintenance Repairman Internal Medicine 09/13/24 Cathy Coles APRN.CLAMP OPERATOR [address] [place], [place] 375971 Maintenance Repairman Internal Medicine 09/13/24 Kendy Pittman, CECILIA [address] [place], [place] [id number] Primary Care Hand Candy Dipper 09/14/24 Window Trimmer Relationship Specialty Start Date End Date Romel Michelle MD [address] [place] [address] PCP - General Internal Medicine 05/23/11 Fredis Buckner MD [address] [place] [address] Home Care Provider Gynecology 04/12/24 Fredis Buckner MD [address] [place] [address] Referring Gynecology 04/13/24 Nile Hall DO [address] [facility] [place] [address] Hematology/Oncology 04/23/24 Yulia Holm, CECILIA Specialty Surgical Brace Maker Oncology 04/23/24 Rukhsana Paniagua, SABRINA.RECRUITMENT SPECIALIST [address] [place] [address] Maintenance Repairman Internal Medicine 09/13/24 Cathy Coles APRN.CLAMP OPERATOR [address] [place] [address] Maintenance Repairman Internal Medicine 09/13/24 Window Trimmer Relationship Specialty Start Date End Date Romel Michelle MD [address] [place] [address] PCP - General Internal Medicine 05/23/11 Fredis Buckner MD [address] [place] [address] Home Care Provider Gynecology 04/12/24 Fredis Buckner MD [address] [place] [address] Referring Gynecology 04/13/24 Nile Hall DO [address] [place] [address] Hematology/Oncology 04/23/24 Yulia Holm, CECILIA Specialty Surgical Brace Maker Oncology 04/23/24 Rukhsana Paniagua, SABRINA.RECRUITMENT SPECIALIST [address] [place] [address] Maintenance Repairman Internal Medicine 09/13/24 Cathy Coles, WATER COMMISSIONER.CLAMP OPERATOR [address] [place] [address] Maintenance Repairman Internal Medicine 09/13/24 Window Trimmer Relationship Specialty Start Date End Date Romel Michelle MD [address] [place] [address] PCP - General Internal Medicine 05/23/11 Fredis Buckner MD [address] [place] [address] Home Care Provider Gynecology 04/12/24 Fredis Buckner MD [address] [place] [address] Referring Gynecology 04/13/24 Nile Hall DO [address] [place] [address] Hematology/Oncology 04/23/24 Yulia Holm, CECILIA Specialty Surgical Brace Maker Oncology 04/23/24 Rukhsana Paniagua, WATER COMMISSIONER.RECRUITMENT SPECIALIST [address] [place] [address] Maintenance Repairman Internal Medicine 09/13/24 Cathy Coles WATER COMMISSIONER.CLAMP OPERATOR [address] [place] [address] Maintenance Repairman Internal Medicine 09/13/24 Window Trimmer Relationship Specialty Start Date End Date Romel Michelle MD [address] [place] [address] PCP - General Internal Medicine 05/23/11 Fredis Buckner MD [address] [place] [address] Home Care Provider Gynecology 04/12/24 Fredis Buckner MD [address] [place] [address] Referring Gynecology 04/13/24 Nile Hall DO [address] [place] [address] Hematology/Oncology 04/23/24 Yulia Holm RN Specialty Surgical Brace Maker Oncology 04/23/24 Rukhsana Paniagua, WATER COMMISSIONER.RECRUITMENT SPECIALIST [address] [place] [address] Maintenance Repairman Internal Medicine 09/13/24 Cathy Coles WATER COMMISSIONER.CLAMP OPERATOR [address] [place] [address] Maintenance Repairman Internal Medicine 09/13/24 Window Trimmer Relationship Specialty Start Date End Date Romel Michelle MD [address] [place] [address] PCP - General Internal Medicine 05/23/11 Fredis Buckner MD [address] [place] [address] Home Care Provider Gynecology 04/12/24 Fredis Bucknre MD [address] [place] [address] Referring Gynecology 04/13/24 Nile Hall DO [address] [place] [address] Hematology/Oncology 04/23/24 Yulia Holm, CECILIA Specialty Surgical Brace Maker Oncology 04/23/24 Rukhsana Paniagua, WATER COMMISSIONER.RECRUITMENT SPECIALIST [address] [place] [address] [facility] Internal Medicine 09/13/24 Cathy Coles WATER COMMISSIONER.CLAMP OPERATOR [address] [place] [address] [facility] Internal Medicine 09/13/24 Window Trimmer Relationship Specialty Start Date End Date Romel Michelle MD [address] [place] [address] PCP - General Internal Medicine 05/23/11 Fredis Buckner MD [address] [place] [address] Home Care Provider Gynecology 04/12/24 Fredis Buckner MD [address] [place] [address] Referring Gynecology 04/13/24 Nile Hall DO [address] [place] [address] Hematology/Oncology 04/23/24 Yulia Holm RN Specialty Surgical Brace Maker Oncology 04/23/24 Rukhsana Paniagua, WATER COMMISSIONER.RECRUITMENT SPECIALIST [address] [place] [address] [facility] Internal Medicine 09/13/24 Cathy Coles WATER COMMISSIONER.CLAMP OPERATOR [address] [place], [place] 448061 [facility] Internal Medicine 09/13/24 Window Trimmer Relationship Specialty Start Date End Date Romel Michelle MD [address] [place] [address] PCP - General Internal Medicine 05/23/11 Fredis Buckner MD [address] [place], [place] 4272695 Home Care Provider Gynecology 04/12/24 Fredis Buckner MD [address] [place], [place] 5652295 Referring Gynecology 04/13/24 Nile Hall DO [address] [place] [address] Hematology/Oncology 04/23/24 Yulia Holm RN Specialty Surgical Brace Maker Oncology 04/23/24 Rukhsana Paniagua, WATER COMMISSIONER.RECRUITMENT SPECIALIST [address] [place] [address] Maintenance Repairman Internal Medicine 09/13/24 Cathy Coles, WATER COMMISSIONER.CLAMP OPERATOR [address] [facility] [place] [address] Maintenance Repairman Internal Medicine 09/13/24 Window Trimmer Relationship Specialty Start Date End Date Romel Michelle MD [address] [place] [address] PCP - General Internal Medicine 05/23/11 Fredis Buckner MD [address] [place], [place] 7177595 Home Care Provider Gynecology 04/12/24 Fredis Buckner MD [address] [place] [address] Referring Gynecology 04/13/24 Nile Hall DO [address] [place] [address] Hematology/Oncology 04/23/24 Yulia Holm, CECILIA Specialty Surgical Brace Maker Oncology 04/23/24 Rukhsana Paniagua, WATER COMMISSIONER.RECRUITMENT SPECIALIST [address] [place] [address] Maintenance Repairman Internal Medicine 09/13/24 Cathy Coles, WATER COMMISSIONER.CLAMP OPERATOR [address] [place] [address] Maintenance Repairman Internal Medicine 09/13/24 Window Trimmer Relationship Specialty Start Date End Date Romel Michelle MD [address] [place] [address] PCP - General Internal Medicine 05/23/11 Fredis Buckner MD [address] [place] [address] Home Care Provider Gynecology 04/12/24 Fredis Buckner MD [address] [place] [address] Referring Gynecology 04/13/24 Nile Hall DO [address] [place] [address] Hematology/Oncology 04/23/24 Yulia Holm RN Specialty Surgical Brace Maker Oncology 04/23/24 Rukhsana Paniagua, WATER COMMISSIONER.RECRUITMENT SPECIALIST [address] [place] [address] Maintenance Repairman Internal Medicine 09/13/24 Cathy Coles WATER COMMISSIONER.CLAMP OPERATOR [address] [place] [address] Maintenance Repairman Internal Medicine 09/13/24 Window Trimmer Relationship Specialty Start Date End Date Romel Michelle MD [address] [place] [address] PCP - General Internal Medicine 05/23/11 Fredis Buckner MD [address] [place] [address] Home Care Provider Gynecology 04/12/24 Fredis Buckner MD [address] [place], [place] 8306895 Referring Gynecology 04/13/24 Nile Hall DO [address] [place] [address] Hematology/Oncology 04/23/24 Yulia Holm RN Specialty Surgical Brace Maker Oncology 04/23/24 Rukhsana Paniagua, WATER COMMISSIONER.RECRUITMENT SPECIALIST [address] [facility] [place] [address] Maintenance Repairman Internal Medicine 09/13/24 Cathy Coles APRN.CLAMP OPERATOR [address] [facility] [address] Maintenance Repairman Internal Medicine 09/13/24 Window Trimmer Relationship Specialty Start Date End Date Romel Michelle MD [address] [facility] [place] [address] PCP - General Internal Medicine 05/23/11 Fredis Buckner MD [address] [place] [address] Home Care Provider Gynecology 04/12/24 Fredis Buckner MD [address] [place] [address] Referring Gynecology 04/13/24 Nlie Hall DO [address] [place] [address] Hematology/Oncology 04/23/24 Yulia Holm, CECILIA Specialty Surgical Brace Maker Oncology 04/23/24 Rukhsana Paniagua, SABRINA.RECRUITMENT SPECIALIST [address] [facility] [address] Maintenance Repairman Internal Medicine 09/13/24 Cathy Coles WATER COMMISSIONER.CLAMP OPERATOR [address] [facility] [place] [address] Maintenance Repairman Internal Medicine 09/13/24 Window Trimmer Relationship Specialty Start Date End Date Romel Michelle MD [address] [facility] [place] [address] PCP - General Internal Medicine 05/23/11 Fredis Buckner MD [address] [place], [place] 5992795 Home Care Provider Gynecology 04/12/24 Fredis Buckner MD [address] [place], [place] 4300895 Referring Gynecology 04/13/24 Nile Hall DO [address] [place] [address] Hematology/Oncology 04/23/24 Yulia Holm RN Specialty Surgical Brace Maker Oncology 04/23/24 Rukhsana Paniagua, SABRINA.RECRUITMENT SPECIALIST [address] [place] [address] Maintenance Repairman Internal Medicine 09/13/24 Cathy Coles WATER COMMISSIONER.CLAMP OPERATOR [address] [place] [address] Maintenance Repairman Internal Medicine 09/13/24 Window Trimmer Relationship Specialty Start Date End Date Romel Michelle MD [address] [place] [address] PCP - General Internal Medicine 05/23/11 Fredis Buckner MD [address] [facility] [place] [address] Home Care Provider Gynecology 04/12/24 Fredis Buckner MD [address] [place], [place] 6339295 Referring Gynecology 04/13/24 Nile Hall DO [address] [place] [address] Hematology/Oncology 04/23/24 Yulia Holm RN Specialty Surgical Brace Maker Oncology 04/23/24 Rukhsana Paniagua, WATER COMMISSIONER.RECRUITMENT SPECIALIST [address] [place], [place] 499761 [facility] Internal Medicine 09/13/24 Cathy Coles WATER COMMISSIONER.CLAMP OPERATOR [address] [place], [place] 004151 [facility] Internal Medicine 09/13/24 Window Trimmer Relationship Specialty Start Date End Date Romel Michelle MD [address] [place], [place] 36[address]11 PCP - General Internal Medicine 05/23/11 Fredis Buckner MD [address] [place], [place] 6355095 Home Care Provider Gynecology 04/12/24 Fredis Buckner MD [address] [place] [address] Referring Gynecology 04/13/24 Nile Hall DO [address] [place] [address] Hematology/Oncology 04/23/24 Yulia Holm RN Specialty Surgical Brace Maker Oncology 04/23/24 Rukhsana Paniagua, WATER COMMISSIONER.RECRUITMENT SPECIALIST [address] [place] [address] [facility] Internal Medicine 09/13/24 Team Status: Active Member [...] Provider Active S tart: January 10, 2025 Window Trimmer Relationship Specialty Start Date End Date Romel Michelle MD [address] [place] [address] PCP - General Internal Medicine 05/23/11 Fredis Buckner MD [address] [place] [address] Home Care Provider Gynecology 04/12/24 Fredis Buckner MD [address] [place], [place] 4951295 Referring Gynecology 04/13/24 Nile Hall DO [address] [place] [address] Hematology/Oncology 04/23/24 Yulia Holm RN Specialty Surgical Brace Maker Oncology 04/23/24 Rukhsana Paniagua, WATER COMMISSIONER.RECRUITMENT SPECIALIST [address] [place] [address] Maintenance Repairman Internal Medicine 09/13/24 Cathy Coles WATER COMMISSIONER.CLAMP OPERATOR [address] [place] [address] Maintenance Repairman Internal Medicine 12/28/24 Window Trimmer Relationship Specialty Start Date End Date Romel Michelle MD [address] [place] [address] PCP - General Internal Medicine 05/23/11 Fredis Buckner MD [address] [place] [address] Home Care Provider Gynecology 04/12/24 Fredis Buckner MD [address] [place], [place] 3948595 Referring Gynecology 04/13/24 Nile Hall DO [address] [place] [address] Hematology/Oncology 04/23/24 Yulia Holm RN Specialty Surgical Brace Maker Oncology 04/23/24 Rukhsana Paniagua, WATER COMMISSIONER.RECRUITMENT SPECIALIST [address] [place] [address] Maintenance Repairman Internal Medicine 09/13/24 Cathy Coles APRN.CLAMP OPERATOR [address] [place] [address] Maintenance Repairman Internal Medicine 12/28/24 Team Status: Inactive Member Role Status Dates Dr. Romel Michelle MD Primary Care Provider Active Start: March 01, 2025 End: March 01, 2025 Dr. Romel Michelle MD Referring Provider Active Start: March 01, 2025 End: March 01, 2025 Elba Ahumada NP-C Attending Provider Active S tart: March 01, 2025 End: March 01, 2025 Window Trimmer Relationship Specialty Start Date End Date Romel Michelle MD [address] [place] [address] PCP - General Internal Medicine 05/23/11 Fredis Buckner MD [address] [place] [address] Home Care Provider Gynecology 04/12/24 Fredis Buckner MD [address] [place] [address] Referring Gynecology 04/13/24 Nile Hall DO [address] [place], [place] 638171 Hematology/Oncology 04/23/24 Yulia Holm, CECILIA Specialty Surgical Brace Maker Oncology 04/23/24 Cathy Coles APRN.CLAMP OPERATOR [address] [place] [address] Maintenance Repairman Internal Medicine 12/28/24 Rukhsana Paniagua APRN.RECRUITMENT SPECIALIST [address] [place] [address] Maintenance Repairman Internal Medicine 02/23/25 Window Trimmer Relationship Specialty Start Date End Date Romel Michelle MD [address] [place] [address] PCP - General Internal Medicine 05/23/11 Fredis Buckner MD [address] [place] [address] Home Care Provider Gynecology 04/12/24 Fredis Buckner MD [address] [place] [address] Referring Gynecology 04/13/24 Nile Hall DO [address] [place] [address] Hematology/Oncology 04/23/24 Yulia Holm RN Specialty Surgical Brace Maker Oncology 04/23/24 Cathy Coles APRN.CLAMP OPERATOR [address] [place] [address] Maintenance Repairman Internal Medicine 12/28/24 Rukhsana Paniagua APRN.RECRUITMENT SPECIALIST [address] [place] [address] Maintenance Repairman Internal Medicine 02/23/25 Window Trimmer Relationship Specialty Start Date End Date Romel Michelle MD [address] [place] [address] PCP - General Internal Medicine 05/23/11 Fredis Buckner MD [address] [place] [address] Home Care Provider Gynecology 04/12/24 Fredis Buckner MD [address] [place] [address] Referring Gynecology 04/13/24 Nile Hall DO [address] [place] [address] Hematology/Oncology 04/23/24 Yulia Holm RN Specialty Surgical Brace Maker Oncology 04/23/24 Cathy Coles APRN.CLAMP OPERATOR [address] [place] [address] Maintenance Repairman Internal Medicine 12/28/24 Rukhsana Paniagua APRN.RECRUITMENT SPECIALIST [address] [place] [address] Maintenance Repairman Internal Medicine 02/23/25 Window Trimmer Relationship Specialty Start Date End Date Romel Michelle MD [address] [place] [address] PCP - General Internal Medicine 05/23/11 Fredis Buckner MD [address] [place] [address] Home Care Provider Gynecology 04/12/24 Fredis Buckner MD [address] [place] [address] Referring Gynecology 04/13/24 Nile Hall DO [address] [place] [address] Hematology/Oncology 04/23/24 Yulia Holm RN Specialty Surgical Brace Maker Oncology 04/23/24 Cathy Coles APRN.CLAMP OPERATOR [address] [place] [address] Maintenance Repairman Internal Medicine 12/28/24 Paniagua, Rukhsana, WATER COMMISSIONER.RECRUITMENT SPECIALIST [address] [place] [address] Maintenance Repairman Internal Medicine 02/23/25 Window Trimmer Relationship Specialty Start Date End Date Romel Michelle MD [address] [place] [address] PCP - General Internal Medicine 05/23/11 Fredis Buckner MD [address] [place] [address] Home Care Provider Gynecology 04/12/24 Fredis Buckner MD [address] [place] [address] Referring Gynecology 04/13/24 Nile Hall DO [address] [place] [address] Hematology/Oncology 04/23/24 Yulia Holm, CECILIA Specialty Surgical Brace Maker Oncology 04/23/24 Cathy Coles, WATER COMMISSIONER.CLAMP OPERATOR [address] [place] [address] Maintenance Repairman Internal Medicine 12/28/24 Rukhsana Paniagua, WATER COMMISSIONER.RECRUITMENT SPECIALIST [address] [place] [address] Maintenance Repairman Internal Medicine 02/23/25 Window Trimmer Relationship Specialty Start Date End Date Romel Michelle MD [address] [place] [address] PCP - General Internal Medicine 05/23/11 Fredis Buckner MD [address] [place] [address] Home Care Provider Gynecology 04/12/24 Fredis Buckner MD [address] [place] [address] Referring Gynecology 04/13/24 Nile Hall DO [address] [address] Hematology/Oncology 04/23/24 Yulia Holm RN Specialty Surgical Brace Maker Oncology 04/23/24 Cathy Coles WATER COMMISSIONER.CLAMP OPERATOR [address] [facility] [address] Maintenance Repairman Internal Medicine 12/28/24 Rukhsana Painagua APRN.RECRUITMENT SPECIALIST [address] [place] [address] Maintenance Repairman Internal Medicine 02/23/25 Window Trimmer Relationship Specialty Start Date End Date Romel Michelle MD [address] [place] [address] PCP - General Internal Medicine 05/23/11 Fredis Buckner MD [address] [place] [address] Home Care Provider Gynecology 04/12/24 Fredis Buckner MD [address] [place] [address] Referring Gynecology 04/13/24 Nile Hall DO [address] [address] Hematology/Oncology 04/23/24 Yulia Holm RN Specialty Surgical Brace Maker Oncology 04/23/24 Cathy Coles WATER COMMISSIONER.CLAMP OPERATOR [address] [place] [address] Maintenance Repairman Internal Medicine 12/28/24 Rukhsana Paniagua, WATER COMMISSIONER.RECRUITMENT SPECIALIST [address] [place] [address] Maintenance Repairman Internal Medicine 02/23/25 Window Trimmer Relationship Specialty Start Date End Date Romel Michelle MD [address] [place] [address] PCP - General Internal Medicine 05/23/11 Fredis Buckner MD [address] [place] [address] Home Care Provider Gynecology 04/12/24 Fredis Buckner MD [address] [place] [address] Referring Gynecology 04/13/24 Nile Hall DO [address] [place] [address] Hematology/Oncology 04/23/24 Yulia Holm, CECILIA Specialty Surgical Brace Maker Oncology 04/23/24 Cathy Coles, WATER COMMISSIONER.CLAMP OPERATOR [address] [place] [address] Maintenance Repairman Internal Medicine 12/28/24 Rukhsana Paniagua, WATER COMMISSIONER.RECRUITMENT SPECIALIST [address] [place] [address] Maintenance Repairman Internal Medicine 02/23/25 Window Trimmer Relationship Specialty Start Date End Date Romel Michelle MD [address] [place] [address] PCP - General Internal Medicine 05/23/11 Fredis Buckner MD [address] [place] [address] Home Care Provider Gynecology 04/12/24 Fredis Buckner MD [address] [place] [address] Referring Gynecology 04/13/24 Nile Hall DO [address] [place] [address] Hematology/Oncology 04/23/24 Yulia Holm RN Specialty Surgical Brace Maker Oncology 04/23/24 Cathy Coles APRN.CLAMP OPERATOR [address] [place] [address] Maintenance Repairman Internal Medicine 12/28/24 Rukhsana Paniagua APRN.RECRUITMENT SPECIALIST [address] [place] [address] Maintenance Repairman Internal Medicine 02/23/25 Window Trimmer Relationship Specialty Start Date End Date Romel Michelle MD [address] [place] [address] PCP - General Internal Medicine 05/23/11 Fredis Buckner MD [address] [place], [place] 0008095 Home Care Provider Gynecology 04/12/24 Fredis Buckner MD [address] [place] [address] Referring Gynecology 04/13/24 Nile Hall DO [address] [place] [address] Hematology/Oncology 04/23/24 Yulia Holm RN Specialty Surgical Brace Maker Oncology 04/23/24 Cathy Coles APRN.CLAMP OPERATOR [address] [place] [address] Maintenance Repairman Internal Medicine 12/28/24 Rukhsana Paniagua, WATER COMMISSIONER.RECRUITMENT SPECIALIST [address] [facility] [place] [address] Maintenance Repairman Internal Medicine 02/23/25 Window Trimmer Relationship Specialty Start Date End Date Romel Michelel MD [address] [place] [address] PCP - General Internal Medicine 05/23/11 Fredis Buckner MD [address] [place], [place] [address]15995 Home Care Provider Gynecology 04/12/24 Fredis Buckner MD [address] [place] [address] Referring Gynecology 04/13/24 Nile Hall DO [address] [place] [address] Hematology/Oncology 04/23/24 Yulia Holm, CECILIA Specialty Surgical Brace Maker Oncology 04/23/24 Cathy Coles, WATER COMMISSIONER.CLAMP OPERATOR [address] [place] [address] Maintenance Repairman Internal Medicine 12/28/24 Rukhsana Paniagua, WATER COMMISSIONER.RECRUITMENT SPECIALIST [address] [place] [address] Maintenance Repairman Internal Medicine 02/23/25 Window Trimmer Relationship Specialty Start Date End Date Romel Michelle MD [address] [place] [address] PCP - General Internal Medicine 05/23/11 Fredis Buckner MD [address] [place] [address] Home Care Provider Gynecology 04/12/24 Fredis Buckner MD [address] [place] [address] Referring Gynecology 04/13/24 Nile Hall DO [address] [place] [address] Hematology/Oncology 04/23/24 Yulia Holm RN Specialty Surgical Brace Maker Oncology 04/23/24 Cathy Coles APRN.CLAMP OPERATOR [address] [place] [address] Maintenance Repairman Internal Medicine 12/28/24 Rukhsana Paniagua APRN.RECRUITMENT SPECIALIST [address] [place] [address] Maintenance Repairman Internal Medicine 02/23/25 Window Trimmer Relationship Specialty Start Date End Date Romel Michelle MD [address] [place] [address] PCP - General Internal Medicine 05/23/11 Fredis Buckner MD [address] [place] [address] Home Care Provider Gynecology 04/12/24 Fredis Buckner MD [address] [place], [place] [id number] Referring Gynecology 04/13/24 Nile Hall DO [address] [place] [address] Hematology/Oncology 04/23/24 Yulia Holm RN Specialty Surgical Brace Maker Oncology 04/23/24 Cathy Coles APRN.CLAMP OPERATOR [address] [facility] [place] [address] Maintenance Repairman Internal Medicine 12/28/24 Rukhsana Paniagua, WATER COMMISSIONER.RECRUITMENT SPECIALIST [address] [facility] [place] [address] Maintenance Repairman Internal Medicine 02/23/25 Team Status: Active Member [...] April 26, 2025 Dr. Ankur Colon DO Other Provider Active St art: April 26, 2025 Window Trimmer Relationship Specialty Start Date End Date Romel Michelle MD [address] [place], [place] [address]121 PCP - General Internal Medicine 05/23/11 Fredis Buckner MD [address] [place], [place] [id number] Home Care Provider Gynecology 04/12/24 Fredis Buckner MD [address] [place] [address] Referring Gynecology 04/13/24 Nile Hall DO [address] [place] [address] Hematology/Oncology 04/23/24 Yulia Holm, CECILIA Specialty Surgical Brace Maker Oncology 04/23/24 Cathy Coles, WATER COMMISSIONER.CLAMP OPERATOR [address] [place] [address] Maintenance Repairman Internal Medicine 12/28/24 Rukhsana Paniagua, WATER COMMISSIONER.RECRUITMENT SPECIALIST [address] [place] [address] Maintenance Repairman Internal Medicine 02/23/25 Window Trimmer Relationship Specialty Start Date End Date Romel Michelle MD [address] [place], [place] [address] PCP - General Internal Medicine 05/23/11 Fredis Buckner MD [address] [place] [address] Home Care Provider Gynecology 04/12/24 rFedis Buckner MD [address] [place] [address] Referring Gynecology 04/13/24 Nile Hall DO [address] [place] [address] Hematology/Oncology 04/23/24 Yulia Holm RN Specialty Surgical Brace Maker Oncology 04/23/24 Cathy Coles APRN.CLAMP OPERATOR [address] [place] [address] Maintenance Repairman Internal Medicine 12/28/24 Rukhsana Paniagua APRN.RECRUITMENT SPECIALIST [address] [place] [address] Maintenance Repairman Internal Medicine 02/23/25 Window Trimmer Relationship Specialty Start Date End Date Romel Michelle MD [address] [place] [address] PCP - General Internal Medicine 05/23/11 Fredis Buckner MD [address] [place] [address] Home Care Provider Gynecology 04/12/24 Fredis Buckner MD [address] [place], [place] [id number] Referring Gynecology 04/13/24 Nile Hall DO [address] [place] [address] Hematology/Oncology 04/23/24 Yulia Holm RN Specialty Surgical Brace Maker Oncology 04/23/24 Cathy Coles APRN.CLAMP OPERATOR [address] [place] [address] Maintenance Repairman Internal Medicine 12/28/24 Rukhsana Paniagua APRN.RECRUITMENT SPECIALIST [address] [place] [address] Maintenance Repairman Internal Medicine 02/23/25 Window Trimmer Relationship Specialty Start Date End Date Romel Michelle MD [address] [place] [address] PCP - General Internal Medicine 05/23/11 Fredis Buckner MD [address] [place], [place] [id number] Home Care Provider Gynecology 04/12/24 Fredis Buckner MD [address] [place] [address] Referring Gynecology 04/13/24 Nile Hall DO [address] [place] [address] Hematology/Oncology 04/23/24 Yulia Holm, CECILIA Specialty Surgical Brace Maker Oncology 04/23/24 Cathy Coles APRN.CLAMP OPERATOR [address] [place] [address] Maintenance Repairman Internal Medicine 12/28/24 Rukhsana Paniagua APRN.RECRUITMENT SPECIALIST [address] [place] [address] Maintenance Repairman Internal Medicine 02/23/25 Window Trimmer Relationship Specialty Start Date End Date Romel Michelle MD [address] [place] [address] PCP - General Internal Medicine 05/23/11 Fredis Buckner MD [address] [place] [address] Home Care Provider Gynecology 04/12/24 Fredis Buckner MD [address] [facility] [place] [address] Referring Gynecology 04/13/24 Nile Hall DO [address] [place] [address] Hematology/Oncology 04/23/24 Yulia Holm RN Specialty Surgical Brace Maker Oncology 04/23/24 Cathy Coles, WATER COMMISSIONER.CLAMP OPERATOR [address] [place] [address] Maintenance Repairman Internal Medicine 12/28/24 Rukhsana Paniagua, SABRINA.RECRUITMENT SPECIALIST [address] [place] [address] Maintenance Repairman Internal Medicine 02/23/25 Team Status: Inactive Member Role/Relationship Status Dates [...] April 26, 2025 Dr. Ankur Colon DO Other Provider Active St art: April 26, 2025 Team Status: Inactive Member Role/Relationship Status Dates Dr. Romel Michelle MD Primary Care Provider Active Start: June 14, 2025 End: June 14, 2025 Dr. Nile Hall DO Attending Provider Active St art: June 14, 2025 End: June 14, 2025 Dr. Nile Hall DO Referring Provider Active St art: June 14, 2025 End: June 14, 2025 Window Trimmer Relationship Specialty Start Date End Date Romel Michelle MD [address] [place], [place] [id number] PCP - General Internal Medicine 05/23/11 Fredis Buckner MD [address] [place], [place] [address] Home Care Provider Gynecology 04/12/24 Fredis Buckner MD [address] [place] [address] Referring Gynecology 04/13/24 Nile Hall DO [address] [place], [place] [id number] Hematology/Oncology 04/23/24 Yulia Holm RN Specialty Surgical Brace Maker Oncology 04/23/24 Cathy Coles APRN.CLAMP OPERATOR [address] [place], [place] [id number] Maintenance Repairman Internal Medicine 12/28/24 Rukhsana Paniagua, WATER COMMISSIONER.RECRUITMENT SPECIALIST [address] [place], [place] [address]54641 [phone] Maintenance Repairman Internal Medicine 02/23/25 Window Trimmer Relationship Specialty Start Date End Date Romel Michelle MD [address] [place], [place] [address]391 PCP - General Internal Medicine 05/23/11 Fredis Buckner MD [address] [place], [place] [id number] Home Care Provider Gynecology 04/12/24 Fredis Buckner MD [address] [place], [place] [address] Referring Gynecology 04/13/24 Nile Hall DO [address] [place] [address] Hematology/Oncology 04/23/24 Yulia Holm, CECILIA Specialty Surgical Brace Maker Oncology 04/23/24 Cathy Coles, WATER COMMISSIONER.CLAMP OPERATOR [address] [place] [address] Maintenance Repairman Internal Medicine 12/28/24 Rukhsana Paniagua, WATER COMMISSIONER.RECRUITMENT SPECIALIST [address] [place] [address] Maintenance Repairman Internal Medicine 02/23/25 Window Trimmer Relationship Specialty Start Date End Date Romel Michelle MD [address] [place], [place] [address] PCP - General Internal Medicine 05/23/11 Fredis Buckner MD [address] [place], [place] [address] Home Care Provider Gynecology 04/12/24 Fredis Buckner MD [address] [place], [place] [id number] Referring Gynecology 04/13/24 Nile Hall DO [address] [place], [place] [id number] Hematology/Oncology 04/23/24 Yulia Holm, CECILIA Specialty Surgical Brace Maker Oncology 04/23/24 Cathy Coles WATER COMMISSIONER.CLAMP OPERATOR [address] [place], [place] [id number] Maintenance Repairman Internal Medicine 12/28/24 Rukhsana Paniagua, WATER COMMISSIONER.RECRUITMENT SPECIALIST [address] [place], [place] [address] Maintenance Repairman Internal Medicine 02/23/25 Window Trimmer Relationship Specialty Start Date End Date Romel Mihcelle MD [address] [place] [address] PCP - General Internal Medicine 05/23/11 Fredis Bcukner MD [address] [place], [place] [id number] Home Care Provider Gynecology 04/12/24 Fredis Buckner MD [address] [place], [place] [id number] Referring Gynecology 04/13/24 Nile Hall DO [address] [place] [address] Hematology/Oncology 04/23/24 Yulia Holm RN Specialty Surgical Brace Maker Oncology 04/23/24 Cathy Coles APRN.CLAMP OPERATOR [address] [place] [address] Maintenance Repairman Internal Medicine 12/28/24 Rukhsana Paniagua APRN.RECRUITMENT SPECIALIST [address] [place] [address] Maintenance Repairman Internal Medicine 02/23/25 Window Trimmer Relationship Specialty Start Date End Date Romel Michelle MD [address] [place] [address] PCP - General Internal Medicine 05/23/11 Fredis Buckner MD [address] [place], [place] 2[address] Home Care Provider Gynecology 04/12/24 Fredis Buckner MD [address] [place] [address] Referring Gynecology 04/13/24 Nile Hall DO [address] [place] [address] Hematology/Oncology 04/23/24 Yulia Holm, RN Specialty Surgical Brace Maker Oncology 04/23/24 Cathy Coles APRN.CLAMP OPERATOR [address] [place] [address] Maintenance Repairman Internal Medicine 12/28/24 Rukhsana Paniagua APRN.RECRUITMENT SPECIALIST [address] [place], [place] [address] Maintenance Repairman Internal Medicine 02/23/25 Window Trimmer Relationship Specialty Start Date End Date Romel Michelle MD [address] [place], [place] [address]131 PCP - General Internal Medicine 05/23/11 Fredis Buckner MD [address] [place], [place] [phone] Home Care Provider Gynecology 04/12/24 Fredis Buckner MD [address] [place], [place] [id number] Referring Gynecology 04/13/24 Nile Hall DO [address] [place] [address] Hematology/Oncology 04/23/24 Yulia Holm, CECILIA Specialty Surgical Brace Maker Oncology 04/23/24 Cathy Coles, WATER COMMISSIONER.CLAMP OPERATOR [address] [place] [address] Maintenance Repairman Internal Medicine 12/28/24 Rukhsana Paniagua, SABRINA.RECRUITMENT SPECIALIST [address] [place] [address] Maintenance Repairman Internal Medicine 02/23/25 Window Trimmer Relationship Specialty Start Date End Date Romel Michelle MD [address] [place], [place] [address] PCP - General Internal Medicine 05/23/11 Fredis Buckner MD [address] [place] [address] Home Care Provider Gynecology 04/12/24 Fredis Buckner MD [address] [place] [address] Referring Gynecology 04/13/24 Nile Hall DO [address] [place], [place] [address] Hematology/Oncology 04/23/24 Yulia Holm RN Specialty Surgical Brace Maker Oncology 04/23/24 Cathy Coles WATER COMMISSIONER.CLAMP OPERATOR [address] [place], [place] [id number] Maintenance Repairman Internal Medicine 12/28/24 Rukhsana Paniagua APRN.RECRUITMENT SPECIALIST [address] [place], [place] [id number] Maintenance Repairman Internal Medicine 02/23/25 Goals (unrecognized section and content) Goals may be documented in a n alternate section INFORMATION SOURCE (unrecogn ized section and content) DATE CREATED AUTHOR 03/28/2024 [facility] ([place]) DATE CREATED AUTHOR AUTHOR'S ORGANIZ ATION 06/15/2025 [facility] DATE CREATED AUTHOR AUTHOR'S ORGANIZ ATION 07/09/2025 [facility] DATE CREATED AUTHOR AUTHOR'S ORGANIZ ATION 08/15/2025 [facility] FOR RECORDS PERTAINING TO PATIENTS WHO ARE [...] BE BASED ON THE PRIMARY CLINICAL RECORDS. [employer] [facility]. provides no warranty or guarantee of the accuracy or completeness of information in this document.
[2025-10-02] MEDS: 0.9% Normal Saline (1000mL) 1,000 ML 999 ML IV ×2 (07:37→09:30)
[2025-10-02 08:02] LABS: Mucous, Urine 0 SEEN /hpf (<or=2+)
[2025-10-02 08:03] LABS: Hematocrit 36.0 % (37-47); Hemoglobin 12.0 g/dL (12.0-15.0); Immature Granulocytes Count 0.010 X10^3/uL (0.0-0.0); Mean Corp Hgb Conc 33.3 g/dL (32-36); Mean Corpuscular Volume 87.4 fL (81-99); Mean Platelet Vol. 9.7 fl (6.2-12.0); NRBC Flagged by Analyzer 0 % (0-5); POSITIVE DIFFERENTIAL YES; Platelet Count 231 K/mm3 (150-450); RBC Distribution Width CV 13.2 % (11.6-14.6); RBC Distribution Width SD 42.3 fl (35.1-43.9); Red Blood Count 4.12 M/mm3 (4.2-5.4); White Blood Count 5.6 K/mm3 (4.4-11.0)
--- NOTE | 2025-10-02 08:10 | CT_ITS ---
PROCEDURE: ABDOMEN/PELVIS W IV CONT ONLY 10/02/2025 REASON FOR EXAM: ABD PAIN, HX OF OVARIAN CANCER TECHNIQUE: Procedure Code: [id number] Modality: CT Procedure: ABDOMEN/PELVIS W IV CONT ONLY Coronal and Sagittal reconstruction series were provided. CONTRAST: Isovue 370 VOLUME: 100 mL One or more dose reduction techniques were used (e.g., Automated exposure control, adjustment of the mA and/or kV according to patient size, use of iterative reconstruction technique. RADIATION DOSE SUMMARY: DLP: 418.69 mGycm COMPARISON: None available. FINDINGS: Lower chest: Lung bases are clear. Liver: Normal size. Hepatic steatosis. Multiple hypoattenuating hepatic lesions some of which are heterogeneous and demonstrate mild enhancement. Gallbladder and biliary ducts: Unremarkable gallbladder. Normal caliber intrahepatic and common bile ducts. Pancreas:Unremarkable. Pancreatic ductal dilatation. No peripancreatic fluid. Spleen: Unremarkable. Adrenal glands: Unremarkable. Kidneys and ureters: Normal renal size, morphology, and enhancement. No nephroureterolithiasis or hydroureteronephrosis. No renal mass. Urinary bladder: Nondistended limiting evaluation. GI: Unremarkable stomach and duodenum. Dilated fluid-filled loops of small bowel in the pelvis measuring up to 3.2 cm.Dilated right colon measuring up to 7.5 cm. There is bowel wall thickening of the terminal ileus. There are anastomotic sutures in the rectosigmoid junction. Appendix: Not definitively visualized. Peritoneum: No abdominopelvic ascites. Lymph nodes: No lymphadenopathy. Vasculature: Portal, splenic, and superior mesenteric veins are patent. No abdominal aortic aneurysm. Atherosclerotic calcification of the abdominal aorta. Reproductive organs: Hysterectomy. Musculoskeletal and soft tissues: No aggressive osseous lesions. Unremarkable soft tissues. CT/Abdomen/Pelvis W IV Cont ONLY IMPRESSION: 1. Dilated fluid-filled loops of small bowel in the pelvis concerning for low-g rade small bowel obstruction. Likely transition point in the terminal ileus where there is bowel wall thickening suggestive of terminal ileitis. 2. Dilated right colon measuring up to 7.5 cm. 3. Multiple heterogeneous hypoattenuating hepatic lesions concerning for metast atic disease in the setting of ovarian malignancy. 4. Additional findings discussed in the body of the report. Reading Location: [id number]
[2025-10-02 08:12] LABS: Color, Urine Yellow (Yellow); Glucose, Dipstick Normal (Normal); Leukocyte Esterase-Dipstick 100 /ul (Negative); Nitrite-Dipstick Negative (Negative); Occult Blood-Urine 10 /ul (Negative); Protein-Dipstick 30 mg/dl (Negative); Specific Gravity, Urine 1.020 (1.002-1.030)
[2025-10-02 08:15] LABS: Ketone-Dipstick 150 mg/dl (Negative); Urine Bilirubin Dipstick 1 mg/dL (Negative)
[2025-10-02 08:21] LABS: Red Blood Cells-Urine 0-5 SEEN /hpf (0-5); Squamous Epithelial Cells - UA 0-5 SEEN /hpf (5-10)
[2025-10-02 08:48] LABS: AST(SGOT) 98 U/L (<=31); Alanine Aminotransfer ALT/SGPT 81 U/L (<=34); Albumin, Serum 4.2 g/dL (3.4-4.8); Alkaline Phosphatase 152 U/L (35-104); Anion Gap 20 (7-18); BUN 15 mg/dL (4-19); BUN/Creat Ratio 12.9 RATIO (10-20); Calcium,Total 9.8 mg/dL (7.6-11.0); Carbon Dioxide 17.4 mmol/L (20.0-29.0); Chloride 94 mmol/L (96-106); Estimated Creatinine Clearance 37.93 ml/min (50-250); Globulin 3.2 g/dL (2.2-4.2); Glucose 90 mg/dL (70-99); Lipase 41 U/L (13-75); Potassium 4.0 mmol/L (3.5-5.1)
[2025-10-02 09:00] VITALS: BP 123/77; PULSE 78; RESP 18; O2SAT 98
[2025-10-02] MEDS: Lactated Ringers 1,000 ML 125 ML IV (09:53)
--- NOTE | 2025-10-02 10:23 | PCA ---
THIS G71 G BUILDING FLOOR 7 BED 9 N2N IS [phone]
[2025-10-02 11:00] VITALS: BP 125/78; PULSE 76; RESP 18; TEMP 36.9; O2SAT 99
--- NOTE | 2025-10-02 11:20 | ED.RN ---
attempt 1 to call report to [facility]. On hold for 13 minutes.
== END 2025-10-02 11:08 | disposition other institution (70) ==
PROVIDERS: Emergency Provider Emergency Medicine; PCP Internal Medicine; Visit Provider Emergency Medicine
DX: K56.609 Unspecified intestinal obstruction, unspecified as to partial versus complete obstruction (principal); C79.9 Secondary malignant neoplasm of unspecified site; C56.9 Malignant neoplasm of unspecified ovary
CPT/HCPCS: 74177; 80053; 81001; 83690; 85025; 93005; 96361; 96374; 96375; 96376; 99284; Q9967; A4216; J2405